=== PATIENT | female | born 1950 | race Caucasian/White ===

== ENCOUNTER 2018-12-17 12:13 | Emergency (ER) | payer MEDICARE, OTHER, SELFPAY ==
[2018-12-17 12:14] VITALS: BP 159/95; PULSE 74; RESP 18; TEMP 36.9; O2SAT 95; BMI 40.1
--- NOTE | 2018-12-17 12:27 | RAD_ITS ---
STUDY: X-RAY CHEST REASON FOR EXAM: Female, 68 years old. Substernal chest pain TECHNIQUE: Single AP portable view of the chest. COMPARISON: None. FINDINGS: EKG leads overlie the chest The lungs are clear and expanded. There is no demonstrated pleural abnormality. Normal size heart. Normal mediastinum and maira. Normal visualized pulmonary arteries. Normal visualized aortic arch and descending thoracic aorta. Normal visualized thoracic spine. Normal visualized ribs, clavicles, and shoulders. There is no demonstrated abnormality of the visualized soft tissue structures of the upper abdomen. RAD/Chest 1 View (Portable) IMPRESSION: Normal x-ray examination of the chest. Electronically Signed: Dagoberto Wetzel MD at 12:49 EDT , Service support ,
--- NOTE | 2018-12-17 12:27 | EKG12_ITS ---
Test Reason : CP Blood Pressure : / mmHG Vent. Rate : 063 BPM Atrial Rate : 063 BPM P-R Int : 148 ms QRS Dur : 078 ms QT Int : 416 ms P-R-T Axes : 006 010 022 degrees QTc Int : 425 ms Normal sinus rhythm Normal ECG Confirmed by SHELIA JAMES ([id number]), editorial director TUNG MILLER ([id number]) on 12/19/2018 9:53:13 AM Referred By: Confirmed By:SHELIA JAMES
[2018-12-17] MEDS: Aspirin 81 MG TAB.CHEW 324 MG PO (12:32)
[2018-12-17] MEDS: Nitroglycerin SL (ED/IMG/CATH) 0.4 MG TABLET SUBLINGUAL (12:33)
[2018-12-17 12:37] VITALS: BP 123/82; PULSE 80; RESP 18; O2SAT 95
--- NOTE | 2018-12-17 12:38 | ED.RN ---
Chest pain resolved - other two nitro tablets wasted
[2018-12-17 12:44] LABS: Absolute Lymphocyte Count 2.66 X10^3/uL (0.83-4.51); Absolute Neutrophil Count 5.2 X10^3/uL (2.0-7.7); Basophil# 0.02 X10^3/uL; Basophil% 0.2 % (0-1); Eosinophil# 0.15 X10^3/uL; Eosinophils% 1.8 % (0-5); Hematocrit 41.5 % (37-47); Hemoglobin 13.8 g/dL (12.0-15.0); Lymphocyte # 2.66 X10^3/ul (4.0); Mean Corp Hgb Conc 33.3 g/dL (32-36); Mean Corpuscular Hgb 31.2 pg (27.0-32.0); Mean Corpuscular Volume 93.7 fL (81-99); Mean Platelet Vol. 10.1 fl (6.2-12.0); Monocyte# 0.53 X10^3/uL; Monocyte% 6.2 % (0-10); NRBC Flagged by Analyzer 0 % (0-5); Neutrophil # 5.17 X10^3/uL (2.7-7.7); Neutrophil % 60.3 % (47-70); Platelet Count 244 K/mm3 (150-450); RBC Distribution Width CV 13.3 % (11.6-14.6); RBC Distribution Width SD 45.9 fl (35.1-43.9); Red Blood Count 4.43 M/mm3 (4.2-5.4); White Blood Count 8.6 K/mm3 (4.4-11.0)
--- NOTE | 2018-12-17 12:49 | ED.DCSUM_ITS ---
History of Present Illness Chief Complaint: Chest Pain Informant: Patient Onset: Today, Hours Context: Sudden Onset Timing: Continuous Quality: Sharp stabbing Location: Mid central chest Current Severity: Mild Maximum Severity: Moderate Worsened by: Nothing Relieved by: Nothing Associated Symptoms: Radiation to back Narrative: Patient is an elderly woman with history of hypertension for 15 years, smoking since age 25 who presents with sharp stabbing mid central chest pain that radiates to the back that started while driving to [place] to see family. Onset 15 minutes prior to arrival. She states she has had pain in the past but much shorter in duration. She had a stress test several years ago which was negative. She is never had a cardiac catheterization. She denies elevated cholesterol and history of diabetes. She denies leg pain, swelling or discoloration. She denies history of DVT, PE or risk factors. There are no exacerbating, precipitating or alleviating factors with regards to her chest pain. She has been no symptoms of infection. She does have history of indigestion. She states this is different than her indigestion. She is never been diagnosed with GERD or reflux. She denies history of hiatal hernia. Prior similar symptoms: Yes Recent Illness/Hospitalization: No - Past Medical History (1) History of hypertension Status: Acute Past Medical History - Allergies and Home Meds Allergies/Adverse Reactions: Allergies No Known Allergies Allergy (Verified 12/17/18 12:16) Primary Care Physician: rDu Pierre DO [Primary Care Provider] - Prior records reviewed: Yes Surgical History: noncontributory Lives: Spouse/ Significant Other Smoking Status: Current every day smoker Alcohol: None Drugs: None Review of Systems General: Denies: Chills, Fever, Sweats Eyes: Denies: Visual changes - bilaterally, Blurred Vision - bilaterally, Diplopia ENT: Denies: Rhinorrhea, Sore throat Cardiovascular: Reports: Chest pain. Denies: Palpitations, Heart racing Respiratory: Denies: Dyspnea, Cough, Dyspnea on exertion, Orthopnea, Paroxysmal nocturnal dyspnea Gastrointestinal: Denies: Abdominal pain, Nausea, Vomiting, Diarrhea, Melena, Hematochezia Genitourinary: Denies: Dysuria, Hematuria, Frequency Musculoskeletal: Denies: Back pain, Extremity Pain Skin: Denies: Rash, Wounds Neurological: Denies: Headache, Weakness, Numbness Endocrine: Denies: Polyuria, Polydipsia Hematologic: Denies: Easy bruising, Easy bleeding Allergy: Denies: Uticaria Physical Exam Vital Signs/Narrative: Vital Signs Temp Pulse Resp BP Pulse Ox 12/17/18 12:37 80 18 123/82 H 95 12/17/18 12:14 98.5 F 74 18 159/95 H 95 Inital Vital Signs reviewed: Yes General: Well nourished, Well developed, No Acute Distress Head: Normocephalic, Atraumatic Eyes: Perrl, EOMI ENT: Moist mucous membranes, No rhinorrhea Neck: Supple, Nontender, No lymphadenopathy, No JVD Cardiovascular: Regular rate, Regular rhythm, No murmurs, Normal S1, Normal S2 Respiratory: No distress, CTA bilaterally, Chest nontender. Negative for: Decreased Air Movement Abdomen: Soft, Nontender, Nondistended, Normal bowel sounds Back: Nontender, Normal Inspection Extremities: Nontender, No edema, - - There is no asymmetry, swelling, discoloration, leg vein distention, palpable cords or tenderness along the distribution of the deep venous system. Skin: Normal color, No rash Neurological: Alert, Oriented x3, Cranial nerves II-XII grossly intact, Normal Strength, Normal Sensation, Normal DTR Psychological: Normal affect, Normal Mood Diagnostic/Tx/Re-eval Impressions Chest X-Ray 12/17/18 12:27 IMPRESSION: Normal x-ray examination of the chest. Electronically Signed: Dagoberto Wetzel MD at 12:49 EDT , Service support , 12/17/18 12:27 Chest 1 View (Portable) [RAD] Stat Laboratory Results 12/17/18 12/17/18 12/17/18 12:16 12:16 15:10 WBC 8.6 RBC 4.43 Hgb 13.8 Hct 41.5 MCV 93.7 MCH 31.2 MCHC 33.3 RDW Std Deviation 45.9 H RDW Coeff of Javi 13.3 Plt Count 244 MPV 10.1 Immature Gran % (Auto) 0.500 Neut % (Auto) 60.3 Lymph % (Auto) 31.0 [place] % (Auto) 6.2 Eos % (Auto) 1.8 Baso % (Auto) 0.2 Absolute Neuts (auto) 5.2 Absolute Lymphs (auto) 2.66 Absolute Nucleated RBC 0.00 Nucleated RBC % 0 Sodium 137 Potassium 4.0 Chloride 105 Carbon Dioxide 27.0 Anion Gap 5 BUN 16 Creatinine 0.97 Estim Creat Clear Calc 47.93 Est GFR (MDRD) Af Amer 74 Est GFR (MDRD) Non-Af 61 BUN/Creatinine Ratio 16.5 Glucose 99 Calcium 9.0 Troponin I < 0.015 < 0.015 - EKG Initial EKG Interpretation: Sinus Rhythm - Circular rate is 63. AL interval is 140 ms. QRS duration is 78 ms. QT is 416 ms. [place] is normal. The EKG is normal. This was obtained with pain. - Medical Decision Making EKG was obtained as well as chest x-ray and blood work to assess patient's chest pain. This may represent cardiac etiology, GI etiology respiratory. First and 3-hour troponin are negative. Delta is 0. Heart score is 3. Patient is low risk and therefore candidate for outpatient treatment. ED Disposition - Plan for ED Patient: Disposition: Home or Assisted Living Diagnosis: Central chest pain Instructions: CHEST PAIN, NonCardiac, GERD (Adult) Prescriptions: Famotidine [Pepcid] 40 mg PO DAILY #30 tab Transmission Status: [id number] Referrals: Dru Pierre DO [Primary Care Provider] - 5-7 Days Additional Instructions: Your prescription was electronically transmitted to [facility] on [facility]
[2018-12-17 12:52] LABS: Anion Gap 5 (5-15); BUN 16 mg/dL (7-18); BUN/Creat Ratio 16.5 RATIO (10-20); Chloride 105 mmol/L (98-107); Creatinine, Serum 0.97 mg/dL (0.55-1.02); EST Glomerular Filtration Rate 61 mL/min (>60); Est Glom Filt Rate - Afr Amer 74 mL/min (>60); Estimated Creatinine Clearance 47.93 ml/min; Glucose 99 mg/dL (74-106); Sodium Level 137 mmol/L (136-145)
[2018-12-17 13:06] VITALS: BP 132/79; PULSE 59; RESP 18; O2SAT 94
[2018-12-17 14:00] VITALS: BP 122/57; PULSE 55; RESP 16; O2SAT 95
[2018-12-17 15:00] VITALS: BP 114/77; PULSE 49; RESP 18; O2SAT 96
[2018-12-17 16:11] VITALS: BP 123/81; PULSE 63; RESP 16; O2SAT 97
== END 2018-12-17 16:12 | disposition home or self-care (01) ==
PROVIDERS: Emergency Provider Emergency Medicine; Family Provider Family Medicine; PCP Family Medicine
DX: R07.89 Other chest pain (principal); I10 Essential (primary) hypertension; Z79.899 Other long term (current) drug therapy; F17.200 Nicotine dependence, unspecified, uncomplicated
CPT/HCPCS: 71045; 80048; 84484; 85025; 93005; 99285; A4216

== ENCOUNTER → 2019-01-14 | Outpatient (CLI) | payer MEDICARE, OTHER, SELFPAY ==
[2018-12-17 12:14] VITALS: BMI 40.1
--- NOTE | 2019-01-14 11:01 | VDLE_ITS ---
Reason For Study: Pain RIGHT LEFT CFV is compressible, spontaneous, phasic, GSV is normal. competent and demonstrates normal CFV is compressible, spontaneous, phasic, augmentation. competent, and demonstrates normal Procedure augmentation. Exam performed in department. FV is compressible, spontaneous, phasic, A preliminary report was called and/or faxed competent and demonstrates normal to Ignacio. augmentation. POP V is compressible, spontaneous, phasic, competent and demonstrates normal augmentation. T/P Trunk is compressible. PTV is compressible. LT PerV is compressible. Interpretation Summary There is no evidence of left lower extremity deep vein thrombosis. Left great saphenous vein appears patent and compressible segmentally. Patent and compressible right common femoral vein Ordering Physician: Dru Pierre Referring Physician: Dru Pierre Performed By: Dorota Mcguire RVT
== END | disposition home or self-care (01) ==
LOC: CVS 10:59
PROVIDERS: Family Provider Family Medicine; PCP Family Medicine; Referring Provider Family Medicine; Visit Provider Family Medicine
DX: M79.605 Pain in left leg (principal)
CPT/HCPCS: 93971

== ENCOUNTER → 2019-03-17 10:23 | Outpatient (CLI) | payer MEDICARE, OTHER, SELFPAY ==
[2019-03-17 11:42] LABS: Anion Gap 7 (5-15); BUN 21 mg/dL (7-18); BUN/Creat Ratio 25.2 RATIO (10-20); Calcium,Total 8.6 mg/dL (8.5-10.1); Chloride 109 mmol/L (98-107); Creatinine, Serum 0.83 mg/dL (0.55-1.02); EST Glomerular Filtration Rate 72 mL/min (>60); Est Glom Filt Rate - Afr Amer 87 mL/min (>60); Glucose 96 mg/dL (74-106); Potassium 3.8 mmol/L (3.5-5.1); Sodium Level 141 mmol/L (136-145)
== END ==
PROVIDERS: Family Provider Family Medicine; PCP Family Medicine; Referring Provider Orthopaedic Surgery; Visit Provider Orthopaedic Surgery
DX: M25.511 Pain in right shoulder (principal); M19.011 Primary osteoarthritis, right shoulder; M75.21 Bicipital tendinitis, right shoulder; M75.41 Impingement syndrome of right shoulder; S43.421A Sprain of right rotator cuff capsule, initial encounter; I10 Essential (primary) hypertension
CPT/HCPCS: 36415; 80048

== ENCOUNTER 2019-07-30 11:30 | Outpatient (RCR) | payer MEDICARE, OTHER, SELFPAY ==
--- NOTE | 2019-06-04 14:58 | HP.PTEVAL_ITS ---
Patient's Visit Information LORIE MOORE is a 69 year old F referred to Physical Therapy by KASSANDRA THURSTON with a diagnosis of Right Shoulder Surgery 05/03/2019. Date of Evaluation: 06/04/19 Physical Therapist: Alexandra London DPT - Visit Plan Frequency: 2x /Week Duration: 6 Weeks Plan: Right shoulder surgery 05/03/19. PROM Until 06/21 then AROM until 07/05- new script will be required to add strength as per MD - Subjective Findings: Fell 3x last winter but unsure if thats how she injured her shoulder- Dr. Pierre worked a lot out of her left side and neck but the right just never got better. Had injections that helped but it never got 100% better. Had Right intra and extra articular debridement, biceps tenodesis, subscap repair, supraspinatus repair and SAD 05/03/[address] Hendricks at [facility]. Lives alone and is fully I prior to surgery. She is ready to get back to normal activities children help when they can. Right hand dominate. Worst in last 48 hours: 5 describes it as ache- Pain is located in the shoulder and radiates to the elbow. No neck pain, KEMP, blurred vision or dizziness. 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 Plays the computer a lot so she is keeping the hands moving. N/T when she does not move it a lot- Pendulums- wears the sling at home and takes it off when she sleeps and showers. Best: 0/10- Eases: rest- no ice or pain medication. Sleep: not disturbed-up/down due using the restroom- in the chair. PMHx: HTN Meds: water pill - Objective Posture Fh, RS, increased kyhphosis- guarding of the right UE with arm in sling. Palpation: tender along deltoid. ROM: cervical: WNL, Finger dexterity: normal, elbow/wrist: WNL mild discomfort at end range elbow extn. Shoulder Prom: flexion: 110 degrees, Abd: 90 degrees, er: neutral, IR: to belly. Strength: restaurant cashier: WNL, Elbow: 4/5, Shoulder: not tested due to protocol. - Goals Goal 1:: Patient will be I with HEP and progression Goal Time Frame: 4-6 Weeks Goal 2:: Patient will demo full PROM of the right shoulder (as per protocol) Goal Time Frame: 4-6 Weeks Goal 3:: Patient will demo full AROM of the right shoulder (as per protocol) Goal Time Frame: 4-6 Weeks - Rehabilitation Potential Physical Therapy Diagnosis: Patient presents with hypomobility- she has decreased ROM, strength and muscular endurance s/p right shoulder surgery leading to increased difficulty with ADL's Rehabilitation Potential: Good - Anticipated Interventions Patient/Client Instruction: Educate patient on: Benefits of Fitness Program Therapeutic Exercise to Include: Strength training, Body mechanics, Postural training, Passive ROM, Active ROM, Scapular Strength/Stabilization Comment: as per protocol For the Purpose of:: To improve muscle performance and motor function TENS: Yes Cryotherapy (ice pack, ice massage): Yes Thermo therapy (hot pack): Yes Ultrasound (thermal/non thermal): No For the Purpose of:: To decrease pain Thank you for the opportunity to evaluate your patient. For Medicare and Medicare HMO plans, please review the plan of care and approve it. It will need to be FAXED BACK to us at [phone] for Medicare purposes. For Medicare only, by signing this I certify the plan of care. Please let me know if there are questions or concerns regarding this plan of care. Physician Signature: Date:
--- NOTE | 2019-07-14 11:16 | HP.PTREVAL ---
KASSANDRA THURSTON, It has been my pleasure to treat LORIE MOORE over the last 16 visits for Right Shoulder Surgery 05/03/2019. Please see the progress note below for an update on the physical therapy plan of care! Subjective: Patient reports that she is getting better- she feels 70% better- She is sleeping better and has less pain. Challenged with putting her hand behind her back and doing her hair- doesn't have the ROM. Is still sleeping in the chair. Worst: 10/04. Objective/Function: Posture: FH, RS- no guarding of the right UE. Gait: good arm swing and trunk rotation. Palpation: tender along anterior shoulder. ROM: Active: flexion: 110 degrees, ABd: 100 degrees, IR: pocket, ER: 60 degrees. AAROM: flexion: 160 degrees Abd: 160 degrees. Strength: Isometric: 4+/5 Plan Plan: Right shoulder surgery 05/03/19. 06/23/2019 New Script Reviewed by ELR - New script has ROM both passive and active as well as strength check marked- when starting strength start with isometrics in neutral Goals Goal 1:: Patient will be I with HEP and progression Goal Time Frame: 4-6 Weeks Goal Progress: Progressing Goal 2:: Patient will demo full PROM of the right shoulder (as per protocol) Goal Time Frame: 4-6 Weeks Goal Progress: Progressing Goal 3:: Patient will demo full AROM of the right shoulder (as per protocol) Goal Time Frame: 4-6 Weeks Goal Progress: Progressing Anticipated Interventions Patient/Client Instruction: Educate patient on: Benefits of Fitness Program Therapeutic Exercise to Include: Strength training, Body mechanics, Postural training, Passive ROM, Active ROM, Scapular Strength/Stabilization Comment: as per protocol For the Purpose of:: To improve muscle performance and motor function TENS: Yes Cryotherapy (ice pack, ice massage): Yes Thermo therapy (hot pack): Yes Ultrasound (thermal/non thermal): No For the Purpose of:: To decrease pain Please do not hesitate to contact me at [phone] by phone or if you have questions or concerns regarding this new plan of care! Sincerely, Alexandra London DPT
--- NOTE | 2019-07-30 11:50 | HP.PTDCSUM ---
HP - PT D/C Summary It has been my pleasure to treat LORIE MOORE under orders from KASSANDRA THURSTON, for the diagnosis of Right Shoulder Surgery 05/03/2019 for a total of 21 visit(s). Discharge Date: Please see the following information for a summary of their discharge status. - Subjective Subjective: Patient reports that she is getting better- she reports that she is having a problem getting up high to clean her shower door- but she is able do most things around her house. She feels that she has changed her routine a little bit in therapy which is making it less sore. The pain is alot less- she feels that she is 80-90% back to normal - Pain R Shldr Pain Intensity (Out of 10): 2 - Overall Improvement % Improvement: 90 - Objective Objective/Function: Posture: FH, RS- can correct but does not maintain. Gait: no deviation- good arm swing and trunk rotation- no guarding of the right UE. Palpatoin: not tender. ROM: Active Shoulder: flexion: 150 degrees, Abd: 160 degrees, IR: to pocket, ER: 40 degrees, Elbow/Wrist/hand: WNL. Strength: tested isometrically at 90/90 position: Shoulder: extn: 4+/5, And: 4/5, Flexion: 4/5, IR: 4/5, ER: 4/5 Elbow: 4+/5 - Goals Goal 1:: Patient will be I with HEP and progression Goal Progress: Goal Met Goal 2:: Patient will demo full PROM of the right shoulder (as per protocol) Goal Progress: Progressing Goal 3:: Patient will demo full AROM of the right shoulder (as per protocol) Goal Progress: Progressing - Plan Plan: Discharge to I HEP- she feel confident with exercises. - D/C Information If there are questions or concerns regarding this patient's physical therapy, please feel free to call me at [phone]. Thank you for the referral of this patient. Sincerely, Alexandra London DPT
== END 2019-07-30 19:00 | disposition home or self-care (01) ==
LOC: PT 11:30
PROVIDERS: Family Provider Family Medicine; PCP Family Medicine
DX: M25.511 Pain in right shoulder (principal); M19.011 Primary osteoarthritis, right shoulder; M75.21 Bicipital tendinitis, right shoulder; M75.41 Impingement syndrome of right shoulder; S43.421D Sprain of right rotator cuff capsule, subsequent encounter; Z48.02 Encounter for removal of sutures; Z47.89 Encounter for other orthopedic aftercare
CPT/HCPCS: 97110; 97140; 97161; 97164

== ENCOUNTER 2019-08-25 17:52 | Emergency (ER) | payer MEDICARE, OTHER, SELFPAY ==
[2019-08-25 17:54] VITALS: BP 137/85; PULSE 112; RESP 18; TEMP 36.3; O2SAT 95; BMI 39.7
--- NOTE | 2019-08-25 18:37 | ED.DCSUM_ITS ---
History of Present Illness Chief Complaint: GI Bleed Informant: Patient - Abdominal Pain/Flank Pain Onset: Weeks - 2 Context: Gradual Onset Timing: Continuous Quality: Cramping Location: Diffuse - lower abd Current Severity: Mild Maximum Severity: Moderate Worsened by: Nothing Relieved by: - - after BM - Nausea/Vomiting/Emesis GI Symptom: Negative for: Nausea, Vomiting - Diarrhea/Melena/Hematochezia GI Symptom: Diarrhea, Hematochezia. Negative for: Melena Severity: Moderate - 7-8 bouts per day Associated Symptoms: Negative for: Dysuria, Frequency, Hematuria, Urgency Narrative: Patient states she feels like she is having an ulcerative colitis flare. Started about 2 weeks ago, her doctor put her on a Medrol Dosepak, after the first 2 days of doses, symptoms were improved but gradually started getting worse again. She just recently finished that. She was on dicyclomine as needed for cramping as well. She called her doctor today and she was referred here to the ER. She is having rectal bleeding with bowel movements/diarrhea, cramping off and on, tenesmus. She denies any symptoms of anemia, nausea, vomiting, fevers, back pain, urinary symptoms. 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 The last time she had a colonoscopy, her colon showed no signs of colitis but when she was having colitis on her scopes, it was mostly left-sided with a little bit of right-sided extension. She states she wants a new plant operations engineer. We do not have any others in the area. She states that she has not had a flareup in 20 years or so, and does not know why she is having a flareup now. She is on no maintenance medications. She used to be on some, but states that she discontinued them herself, and started taking probiotics which kept her stable and asymptomatic. However she discontinued those long ago. She just got some and started taking them within the last couple days. Prior similar symptoms: Yes - ulcerative colitis flares - Past Medical History (1) HTN (hypertension) Status: Chronic (2) Ulcerative colitis Status: Chronic Past Medical History - Allergies and Home Meds Allergies/Adverse Reactions: Allergies No Known Allergies Allergy (Verified 08/25/19 17:53) Primary Care Physician: Dru Pierre DO [Primary Care Provider] - Surgical History: noncontributory Lives: Alone Smoking Status: Never smoker Review of Systems General: Denies: Chills, Fever, Sweats Eyes: Denies: Visual changes - bilaterally, Diplopia ENT: Denies: Rhinorrhea, Sore throat Cardiovascular: Denies: Chest pain, Palpitations Respiratory: Denies: Dyspnea, Cough, Dyspnea on exertion Gastrointestinal: Reports: Abdominal pain, Diarrhea, Hematochezia. Denies: Nausea, Vomiting, Melena Genitourinary: Denies: Dysuria, Hematuria, Frequency Musculoskeletal: Denies: Back pain, Swelling, Extremity Pain Skin: Denies: Rash, Wounds Neurological: Denies: Headache, Weakness, Numbness Physical Exam Vital Signs/Narrative: Vital Signs Temp Pulse Resp BP Pulse Ox 08/25/19 17:54 97.3 F L 112 H 18 137/85 H 95 Inital Vital Signs reviewed: Yes General: Well nourished, Well developed, Obese, No Acute Distress Head: Normocephalic, Atraumatic Eyes: Perrl, EOMI ENT: Moist mucous membranes, No rhinorrhea Neck: Supple, Nontender Cardiovascular: Regular rate, Regular rhythm, No murmurs, Tachycardia - Mild Respiratory: No distress, CTA bilaterally, Chest nontender Abdomen: Soft, Nontender, Nondistended, Hyperactive bowel sounds Back: Nontender, Normal Inspection Extremities: Nontender, No edema Skin: Normal color, No rash, No Trauma Neurological: Alert, Oriented x3, Cranial nerves II-XII grossly intact, Normal Strength, Normal Sensation, Normal Gait Psychological: Normal affect, Normal Mood Diagnostic/Tx/Re-eval Laboratory Tests 08/25/19 08/25/19 Range/Units 18:47 18:47 WBC 7.1 (4.4-11.0) K/mm3 RBC 4.14 L (4.2-5.4) M/mm3 Hgb 12.8 (12.0-15.0) g/dL Hct 39.0 (37-47) % MCV 94.2 (81-99) fL MCH 30.9 (27.0-32.0) pg MCHC 32.8 (32-36) g/dL RDW Std Deviation 46.0 H (35.1-43.9) fl RDW Coeff of Javi 13.4 (11.6-14.6) % Plt Count 231 (150-450) K/mm3 MPV 9.9 (6.2-12.0) fl Immature Gran % (Auto) 0.300 (0.0-0.9) % Neut % (Auto) 59.2 (47-70) % Lymph % (Auto) 28.4 (19-41) % [place] % (Auto) 10.0 (0-10) % Eos % (Auto) 2.0 (0-5) % Baso % (Auto) 0.1 (0-1) % Absolute Neuts (auto) 4.2 (2.0-7.7) X10^3/uL Absolute Lymphs (auto) 2.02 (0.83-4.51) X10^3/uL Nucleated RBC % 0 (0-5) % Sodium 143 (136-145) mmol/L Potassium 3.5 (3.5-5.1) mmol/L Chloride 109 H (98-107) mmol/L Carbon Dioxide 28.0 (21.0-32.0) mmol/L Anion Gap 6 (5-15) BUN 15 (7-18) mg/dL Creatinine 1.00 (0.55-1.02) mg/dL Estim Creat Clear Calc 45.85 ml/min Est GFR (MDRD) Af Amer 71 (>60) mL/min Est GFR (MDRD) Non-Af 59 L (>60) mL/min BUN/Creatinine Ratio 15.0 (10-20) RATIO Glucose 108 H (74-106) mg/dL Calcium 8.6 (8.5-10.1) mg/dL - Medical Decision Making Labs are unremarkable. No sign of electrolyte disorder. Her abdomen is very benign, and I do not think she needs emergent radiography for any reason at this time. Her symptoms are consistent with an ulcerative colitis exacerbation. I do not have another plant operations engineer I can refer her to. I recommend she follow-up with her PCP for a referral and further management if she would like that and she is amenable to that. In the meantime I think it would be reasonable to put her on higher dose steroids, followed by a taper down and off, simultaneous with mesalamine enemas and oral mesalamine. ED Disposition - Plan for ED Patient: Disposition: Home or Assisted Living Diagnosis: Acute ulcerative colitis with rectal bleeding Instructions: ED Colitis Ulcerative Prescriptions: Mesalamine 3 tab PO DAILY #63 tablet. Transmission Status: Pending to [facility] Mesalamine W/Cleansing Wipes [Mesalamine 4 gm/60 ml Kit] 4 gm SD QHS 21 Days #21 enema.kit Transmission Status: Pending to [facility] Prednisone 10 mg PO UD #35 tab Transmission Status: Pending to [facility] Referrals: Dru Pierre DO [Primary Care Provider] - 5-7 Days
[2019-08-25] MEDS: MethylPREDNISolone 125 MG/2 ML Vial IV (18:54)
[2019-08-25 19:04] LABS: Absolute Lymphocyte Count 2.02 X10^3/uL (0.83-4.51); Absolute Neutrophil Count 4.2 X10^3/uL (2.0-7.7); Basophil# 0.01 X10^3/uL; Basophil% 0.1 % (0-1); Eosinophil# 0.14 X10^3/uL; Hemoglobin 12.8 g/dL (12.0-15.0); Lymphocyte # 2.02 X10^3/ul (4.0); Lymphocyte % 28.4 % (19-41); Mean Corp Hgb Conc 32.8 g/dL (32-36); Mean Corpuscular Hgb 30.9 pg (27.0-32.0); Mean Corpuscular Volume 94.2 fL (81-99); Mean Platelet Vol. 9.9 fl (6.2-12.0); Monocyte# 0.71 X10^3/uL; NRBC Flagged by Analyzer 0 % (0-5); Neutrophil # 4.22 X10^3/uL (2.7-7.7); Neutrophil % 59.2 % (47-70); Platelet Count 231 K/mm3 (150-450); RBC Distribution Width CV 13.4 % (11.6-14.6); Red Blood Count 4.14 M/mm3 (4.2-5.4); White Blood Count 7.1 K/mm3 (4.4-11.0)
[2019-08-25 19:15] LABS: Anion Gap 6 (5-15); BUN 15 mg/dL (7-18); Calcium,Total 8.6 mg/dL (8.5-10.1); Chloride 109 mmol/L (98-107); EST Glomerular Filtration Rate 59 mL/min (>60); Est Glom Filt Rate - Afr Amer 71 mL/min (>60); Estimated Creatinine Clearance 45.85 ml/min; Glucose 108 mg/dL (74-106); Potassium 3.5 mmol/L (3.5-5.1); Sodium Level 143 mmol/L (136-145)
== END 2019-08-25 19:54 | disposition home or self-care (01) ==
PROVIDERS: Emergency Provider Emergency Medicine; PCP Family Medicine
DX: K51.911 Ulcerative colitis, unspecified with rectal bleeding (principal); E66.9 Obesity, unspecified; I10 Essential (primary) hypertension; Z79.899 Other long term (current) drug therapy
CPT/HCPCS: 80048; 85025; 96361; 96374; 99283; J7030

== ENCOUNTER → 2020-03-25 09:55 | Outpatient (CLI) | payer MEDICARE, OTHER, SELFPAY ==
--- NOTE | 2020-03-25 09:59 | VDLE_ITS ---
Reason For Study: lymphedema RIGHT LEFT GSV is normal. GSV is normal. CFV is compressible, spontaneous, phasic, CFV is compressible, spontaneous, phasic, competent and demonstrates normal competent, and demonstrates normal augmentation. augmentation. FV is compressible, spontaneous, phasic, FV is compressible, spontaneous, phasic, competent and demonstrates normal competent and demonstrates normal augmentation. augmentation. POP V is compressible, spontaneous, phasic, POP V is compressible, spontaneous, phasic, competent and demonstrates normal competent and demonstrates normal augmentation. augmentation. T/P Trunk is compressible. T/P Trunk is compressible. PTV is compressible. PTV is compressible. RT PerV is compressible. LT PerV is compressible. Procedure Hypoechoic area behind the knee measuring 1.0 This is a venous duplex using B-mode, color x 2.23 x 4.12 cm. Area is nonvascular. flow and spectral Doppler. Exam performed in department. The exam was diagnostic. A preliminary report was called and/or faxed to Dr. Zarate. Interpretation Summary Bilateral no DVT or SVT seen. Appears to have a left bakers cyst. Ordering Physician: Anival Zarate Performed By: Joe Manriquez, RVT
== END ==
PROVIDERS: PCP Nurse Practitioner Family; Referring Provider Surgery Vascular Surgery; Visit Provider Surgery Vascular Surgery
DX: I89.0 Lymphedema, not elsewhere classified (principal); R60.0 Localized edema
CPT/HCPCS: 93970

== ENCOUNTER → 2020-05-24 10:34 | Outpatient (CLI) | payer MEDICARE, OTHER, SELFPAY ==
--- NOTE | 2020-05-26 08:29 | PFT ---
INTRODUCTION: The patient is a 70-year-old female that presents for pulmonary function studies secondary to a diagnosis of nicotine dependency. Respiratory therapy reports good patient effort. Bronchodilators were used during testing. INTERPRETATION: Forced expiration spirometry demonstrates the presence of a mild large airways obstructive ventilatory defect. There was no significant response to aerosolized bronchodilators. Spirograms are of good quality and plateau normally. Body plethysmography was performed and reveals lung volumes to be within normal limits. Diffusing capacity by single breath CO is also within normal limits. IMPRESSION: Irreversible mild large airways obstructive ventilatory defect with preserved lung volumes and diffusing capacity.
== END ==
PROVIDERS: PCP Nurse Practitioner Family; Referring Provider Internal Medicine Critical Care Medicine; Visit Provider Internal Medicine Critical Care Medicine
DX: R06.02 Shortness of breath (principal); E66.9 Obesity, unspecified; F17.210 Nicotine dependence, cigarettes, uncomplicated
CPT/HCPCS: 94060; 94726; 94729

== ENCOUNTER → 2020-05-27 12:30 | Outpatient (CLI) | payer MEDICARE, OTHER, SELFPAY ==
[2020-05-27 12:30] VITALS: PULSE 113; PULSE 114; PULSE 115; PULSE 118; PULSE 119; PULSE 124; PULSE 84; PULSE 92; O2SAT 93; O2SAT 94; O2SAT 95; O2SAT 97
--- NOTE | 2020-05-29 10:22 | PCM.PSN.6M ---
PSN 6 Minute Walk Test - 6 Minute Walk Test 6 Minute Walk Test: 6 Minute Walk Test PSN:6-Minute Walk Test Start: 05/27/20 13:00 Freq: Status: Active Protocol: [id number].6MINW Document 05/27/20 12:30 (Rec: 05/27/20 13:04 [id number]) 6 Minute Walk Test Date Performed 05/27/20 Time Performed 12:30 Height 5 ft 4 in Weight: 235 lb Weight in Pounds 235.[address]: Paulie Puri FIO2 (% Oxygen) 21 Assistive device used: None Pre-test Oxygen Delivery Method Room Air Pulse Ox (%) 97 Pulse Rate (60-100 beats/min) 84 Dyspnea Rossy Scale (0-10) 0 Exertion Rossy Scale (6-20) 6 1st minute Oxygen Delivery Method Room Air Pulse Ox (%) 93 Pulse Rate (60-100 beats/min) 115 H 2nd minute Oxygen Delivery Method Room Air Pulse Ox (%) 94 Pulse Rate (60-100 beats/min) 124 H 3rd minute Oxygen Delivery Method Room Air Pulse Ox (%) 94 Pulse Rate (60-100 beats/min) 114 H 4th minute Oxygen Delivery Method Room Air Pulse Ox (%) 95 Pulse Rate (60-100 beats/min) 119 H 5th minute Oxygen Delivery Method Room Air Pulse Ox (%) 94 Pulse Rate (60-100 beats/min) 113 H 6th minute Oxygen Delivery Method Room Air Pulse Ox (%) 94 Pulse Rate (60-100 beats/min) 118 H Post-test Oxygen Delivery Method Room Air Pulse Ox (%) 95 Pulse Rate (60-100 beats/min) 92 Dyspnea Rossy Scale (0-10) 0 Exertion Rossy Scale (6-20) 11 Full Laps Walked 22 Partial Lap, Number of Tiles Walked 0 Total Distance Walked (ft) 1298 - Interpretation Interpretation: The patient ambulated 1298 feet over the course of 6 minutes beginning on room air without assistive devices or breaks. Pretesting oxygen saturation was noted to be 97% on room air. With ambulation, the clayton oxygen saturation was 93%. There was no significant exertional oxygen desaturation. - Recommendations Recommendations: There is no indication for the use of supplemental oxygen at this time.
== END ==
PROVIDERS: PCP Nurse Practitioner Family; Referring Provider Internal Medicine Critical Care Medicine; Visit Provider Internal Medicine Critical Care Medicine
DX: R06.02 Shortness of breath (principal)
CPT/HCPCS: 94618

== ENCOUNTER → 2020-06-10 15:15 | Outpatient (CLI) | payer MEDICARE, OTHER, SELFPAY ==
--- NOTE | 2020-06-10 15:17 | BI_ITS ---
MAMMOGRAPHY - BILATERAL SCREENING REASON FOR EXAM: Female, 70 years old. Routine annual screening examination. PERTINENT HISTORY: Aunt with breast cancer. TECHNIQUE: Digital bilateral breast reena (3D mammographic acquisition) in the CC and MLO projections. 2-D mediolateral oblique (MLO) and craniocaudad (CC) views of both breasts were obtained. CAD: Full Field Digital Mammography with Computer Added Detection was performed. COMPARISON: Comparison is made with prior osseous examination dated 11/21/2016. FINDINGS: Breast Composition: The breasts are almost entirely fatty. There are no dominant masses or suspicious calcifications. Stable 3 mm nodule in the inferior medial portion of the left breast. Stable 3 mm well-defined nodule in the upper anterior lateral portion of the right breast. Stable benign-appearing small axillary lymph nodes. No other significant abnormalities are identified. There has been no significant change since the prior study. BI/SCRN MAMM (CAD)W/REENA BILAT IMPRESSION: Stable bilateral screening mammogram. Yearly follow-up mammogram recommended. (A) ASSESSMENT CATEGORY: BIRADS Category 2: Benign. A letter regarding these results will be sent to the patient by the facility within 30 days. Approximately 10% of breast cancers are not detected by mammography. A normal mammogram should not delay biopsy of a clinically suspicious abnormality. [id number] Electronically Signed: Sarthak Mccormick, at 8:16 EST , Service support ,
--- NOTE | 2020-06-10 15:24 | BD_ITS ---
STUDY: DUAL ENERGY X-RAY ABSORPTIOMETRY / DXA REASON FOR EXAM: Female, 70 years old. 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 COMPARISON: None. FINDINGS: Lumbar Spine (L1-L4): g/cm2 (1.042) / T-score (-1.0) / Z-score (0.6) Findings are suggestive of normal bone density with a low fracture risk. Left Femur Total: g/cm2 (1.005) / T-score (0.0) / Z-score (1.4) Left Femoral Neck: g/cm2 (0.849) / T-score (-1.4) / Z-score (0.3) Right Femur Total: g/cm2 (0.995) / T-score (-0.1) / Z-score (1.4) Right Femoral Neck: g/cm2 (0.842) / T-score (-1.4) / Z-score (0.3) BD/Dexa Bone Density Study IMPRESSION: The patient is considered osteopenic as outlined below according to World Aneudy Organization (WHO) criteria with a moderate fracture risk. Reference Information: The T-score is the number of standard deviations above or below the standard which is normal for young adults at their peak bone mineral density. The World Health Organization (WHO) interprets the T-scores as follows: Above -1 Normal bone density Between -1 and -2.5 Osteopenia Equal to / or below -2.5 Osteoporosis As a practical clinical guideline, osteopenia may be graded as follows: Mild -1 through -1.5 Moderate -1.6 through -2.0 Severe -2.1 through -2.4 The Z-score is the number of standard deviations above or below age-matched controls. A Z-score of less than -1.5 would be considered abnormal. References: 1. NIH Osteoporosis and Related Bone Diseases www osteo.org 2. International Society for Clinical Densitometry www iscd.org 3. National Osteoporosis Foundation www nof.org Electronically Signed: Sarthak Mccormick, at 8:35 EST , Service support ,
== END ==
PROVIDERS: PCP Nurse Practitioner Family; Referring Provider Student in an Organized Health Care Education/Training Program; Visit Provider Student in an Organized Health Care Education/Training Program
DX: Z12.31 Encounter for screening mammogram for malignant neoplasm of breast (principal); Z78.0 Asymptomatic menopausal state
CPT/HCPCS: 77063; 77067; 77080

== ENCOUNTER → 2021-04-14 13:49 | Outpatient (CLI) | payer MEDICARE, OTHER, SELFPAY ==
--- NOTE | 2021-04-14 13:56 | CT_ITS ---
STUDY: LOW DOSE CT LUNG CANCER SCREENING REASON FOR EXAM: Female, 71 years old. Smoking 1/4 ppd with greater than 20 pack year history. RADIATION DOSAGE (If Supplied By Facility): CTDIvol = ( 3.18 ) mGy, DLP = ( 101.65 ) mGycm TECHNIQUE: No contrast was administered. Low dose technique was utilized (average mAS-38 and kVp 120). 1.25 mm axial source images with a slice interval of 1.25-mm were reconstructed in lung windows. 2.5 mm axial source images with a slice interval of 2.5-mm were reconstructed in lung windows. 5.0 mm axial source images with a slice interval of 5.0-mm were reconstructed in soft tissue windows. Nodule measured using lung windows on PACS and/or independent workstation with automated measurement of minimum and maximum diameter. Nodule measurement reported as average diameter rounded to the nearest whole number. Growth is defined as an increase ins size of greater than 1.5 mm. COMPARISON: None. NODULES: There is a 3.1 mm and on calcified nodule in the peripheral lateral aspect of the right middle lobe as seen on axial image #148. This also evidence of a 6 mm noncalcified nodule in the anterior medial aspect of the right middle lobe adjacent to the right heart border. Emphysema: Hyperinflation. Emphysematous changes worse in the upper lobes. Minimal linear scarring in the anterior aspect of the left lower lobe. Linear scarring at the lung bases. Endobronchial lesion: None Aorta: Atherosclerotic calcific plaques of the aortic arch. Coronary arteries: Coronary artery calcification. Other chest and abdominal findings: CT/Low Dose CT Lung Screening IMPRESSION: Lung-RADS category 2 - Continue annual screening with LDCT in 12 months. IMPORTANT NOTES FOR USE: ACR Lung-RADS Version 1.1 Assessment Categories Release Date: 2018 Category: Coded 0-4 bases on nodule(s) with highest degree of suspicion. Negative screen is defined as categories 1 and 2; a positive screen is defined as categories 3 and 4. Category 3 and 4A nodules that are unchanged on interval CT should be coded as category 2, and individuals returned to screening in 12 months. Category 4X: Category 3 or 4 nodules with additional imaging findings that increase the suspicion of lung cancer, such as spiculation, GGN that doubles in size in 1 year, enlarged lymph notes, etc. Category Modifiers: S (significant finding unrelated to lung cancer) Electronically Signed: Sarthak Mccormick MD at 15:15 EST , Service support ,
== END ==
PROVIDERS: PCP Nurse Practitioner Family; Referring Provider Nurse Practitioner Acute Care; Visit Provider Nurse Practitioner Acute Care
DX: F17.210 Nicotine dependence, cigarettes, uncomplicated (principal)
CPT/HCPCS: 71271

== ENCOUNTER 2021-08-09 15:40 | Outpatient (CLI) | payer MEDICARE, OTHER, SELFPAY ==
[2021-08-09 18:14] LABS: Anion Gap 4 (5-15); BUN 17 mg/dL (7-18); BUN/Creat Ratio 18.6 RATIO (10-20); Calcium,Total 8.7 mg/dL (8.5-10.1); Chloride 109 mmol/L (98-107); Creatinine, Serum 0.91 mg/dL (0.55-1.02); EST Glomerular Filtration Rate 65 mL/min (>60); Est Glom Filt Rate - Afr Amer 78 mL/min (>60); Glucose 97 mg/dL (74-106); Sodium Level 140 mmol/L (136-145)
== END 2021-08-09 23:59 | disposition home or self-care (01) ==
LOC: MTLAB 15:43
PROVIDERS: PCP Nurse Practitioner Family; Referring Provider Urology; Visit Provider Urology
DX: R31.9 Hematuria, unspecified (principal)
CPT/HCPCS: 36415; 80048

== ENCOUNTER 2021-08-15 15:34 | Outpatient (CLI) | payer MEDICARE, OTHER, SELFPAY ==
--- NOTE | 2021-08-15 15:54 | CT_ITS ---
EXAM: CT ABDOMEN AND PELVIS WITHOUT AND WITH CONTRAST ENHANCEMENT OF 1551 HOURS ON 08/15/2021. HISTORY: Hematuria. TECHNIQUE: A helical CT of the abdomen and pelvis were performed with contrast enhancement per protocol and were demonstrated in the axial, coronal, and sagittal projections. Radiation calibration was performed to minimize patient exposure. COMPARISON: None. LIMITATIONS: None. FINDINGS: LOWER CHEST: Normal. LIVER: Normal. GALLBLADDER/BILE DUCTS: 7 mm in diameter gallstone in the gallbladder without wall thickening. Normal bile ducts. PANCREAS: Normal. No pancreatitis or pancreatic mass lesions. SPLEEN: Normal. ADRENAL GLANDS: Normal. KIDNEYS/URETERS/BLADDER: Small kidneys without obstructive uropathy. No renal cystic or solid mass lesions. Prominent left renal pelvis--normal variant. No ureteral dilatation. Mild bladder wall thickening that could represent a cystitis. Air bubble is noted in the bladder. RETROPERITONEUM/AORTA: Normal. BOWEL/MESENTERY: Normal. No diverticulitis, colitis, intestinal obstruction. APPENDIX: Foreshortened small appendix without evidence of appendicitis. No abscesses or fluid collections in the appendix region. PERITONEUM: Normal. REPRODUCTIVE ORGANS: Normal. BONES/SOFT TISSUES: No acute abnormality. OTHER: None. CONCLUSION: 1. Small normal kidneys without evidence of obstructive uropathy. 2. No renal cystic or solid mass lesions. 3. Mild bladder wall thickening that could represent mild cystitis. There is an air bubble in the bladder. 4. No appendicitis, diverticulitis, colitis, or intestinal obstruction. 5. Single 7 mm in diameter gallstone in the gallbladder without wall thickening. Normal bile ducts. 6. No pancreatitis or pancreatic mass lesions. 7. No evidence of other abnormalities. Electronically Signed: Rodo Fierro MD at 19:37 EDT , CT/CT Abd/Pelvis W/WO Contrast
== END 2021-08-15 23:59 | disposition home or self-care (01) ==
LOC: CT 15:36
PROVIDERS: PCP Nurse Practitioner Family; Referring Provider Urology; Visit Provider Urology
DX: R31.9 Hematuria, unspecified (principal)
CPT/HCPCS: 74178

== ENCOUNTER → 2021-08-24 14:05 | Outpatient (CLI) | payer MEDICARE, OTHER, SELFPAY ==
[2021-08-24 14:30] LABS: Erythrocyte Sedimentation Rate 23 mm/hr (0-30)
[2021-08-24 14:31] LABS: Absolute Lymphocyte Count 2.58 X10^3/uL (0.83-4.51); Absolute Neutrophil Count 3.2 X10^3/uL (2.0-7.7); Basophil# 0.03 X10^3/uL; Basophil% 0.5 % (0-1); Eosinophils% 1.6 % (0-5); Hematocrit 41.7 % (37-47); Hemoglobin 13.6 g/dL (12.0-15.0); Lymphocyte # 2.58 X10^3/ul (0.83-4.51); Lymphocyte % 41.1 % (19-41); Mean Corp Hgb Conc 32.6 g/dL (32-36); Mean Corpuscular Hgb 29.5 pg (27.0-32.0); Mean Corpuscular Volume 90.5 fL (81-99); Mean Platelet Vol. 10.2 fl (6.2-12.0); Monocyte# 0.33 X10^3/uL; Monocyte% 5.3 % (0-10); NRBC Flagged by Analyzer 0 % (0-5); Neutrophil # 3.23 X10^3/uL (2.7-7.7); Neutrophil % 51.3 % (47-70); Platelet Count 286 K/mm3 (150-450); RBC Distribution Width CV 13.5 % (11.6-14.6); RBC Distribution Width SD 44.9 fl (35.1-43.9); Red Blood Count 4.61 M/mm3 (4.2-5.4); White Blood Count 6.3 K/mm3 (4.4-11.0)
[2021-08-24 15:06] LABS: ALB/GLOB Ratio 0.9 RATIO (0.9-2.4); AST(SGOT) 19 U/L (15-37); Alanine Aminotransfer ALT/SGPT 24 U/L (13-56); Albumin, Serum 3.5 g/dL (3.2-5.0); Alkaline Phosphatase 80 U/L (45-117); Anion Gap 5 (5-15); BUN 20 mg/dL (7-18); BUN/Creat Ratio 19.8 RATIO (10-20); Chloride 109 mmol/L (98-107); Creatinine, Serum 1.01 mg/dL (0.55-1.02); EST Glomerular Filtration Rate 57 mL/min (>60); Est Glom Filt Rate - Afr Amer 69 mL/min (>60); Globulin 3.7 g/dL (2.2-4.2); Glucose 122 mg/dL (74-106); Potassium 3.4 mmol/L (3.5-5.1); Protein, Total 7.2 g/dL (6.4-8.2); Sodium Level 140 mmol/L (136-145); Vitamin D,25 Hydroxy 48.5 ng/mL
== END ==
PROVIDERS: PCP Nurse Practitioner Family
DX: K51.00 Ulcerative (chronic) pancolitis without complications (principal); E66.9 Obesity, unspecified; R19.7 Diarrhea, unspecified
CPT/HCPCS: 36415; 80053; 82306; 85025; 85652; 86140

== ENCOUNTER → 2021-08-25 11:32 | Outpatient (CLI) | payer MEDICARE, OTHER, SELFPAY ==
[2021-08-29 14:32] LABS: Calprotectin, Stool 97 ug/g (0-120)
== END ==
PROVIDERS: PCP Nurse Practitioner Family
DX: K51.00 Ulcerative (chronic) pancolitis without complications (principal); E66.9 Obesity, unspecified; R19.7 Diarrhea, unspecified
CPT/HCPCS: 83993

== ENCOUNTER → 2021-12-13 | Outpatient (CLI) | payer MEDICARE, OTHER, SELFPAY | END | disposition home or self-care (01) | LOC: PSN 10:39 | PROVIDERS: PCP Nurse Practitioner Family; Referring Provider Internal Medicine Critical Care Medicine; Visit Provider Internal Medicine Critical Care Medicine | DX: J44.9 Chronic obstructive pulmonary disease, unspecified (principal) | CPT/HCPCS: 87635; C9803; U0003; U0005 ==

== ENCOUNTER → 2021-12-15 | Outpatient (CLI) | payer MEDICARE, OTHER, SELFPAY ==
[2021-12-15 09:12] LABS: Absolute Lymphocyte Count 2.26 X10^3/uL (0.83-4.51); Absolute Neutrophil Count 3.7 X10^3/uL (2.0-7.7); Basophil# 0.02 X10^3/uL; Basophil% 0.3 % (0-1); Eosinophil# 0.44 X10^3/uL; Eosinophils% 6.4 % (0-5); Hematocrit 40.2 % (37-47); Hemoglobin 12.6 g/dL (12.0-15.0); Lymphocyte # 2.26 X10^3/ul (0.83-4.51); Lymphocyte % 32.8 % (19-41); Mean Corp Hgb Conc 31.3 g/dL (32-36); Mean Corpuscular Hgb 29.9 pg (27.0-32.0); Mean Corpuscular Volume 95.5 fL (81-99); Mean Platelet Vol. 10.6 fl (6.2-12.0); Monocyte# 0.48 X10^3/uL; NRBC Flagged by Analyzer 0 % (0-5); Neutrophil # 3.66 X10^3/uL (2.7-7.7); Neutrophil % 53.2 % (47-70); Platelet Count 175 K/mm3 (150-450); RBC Distribution Width CV 14.6 % (11.6-14.6); RBC Distribution Width SD 51.2 fl (35.1-43.9); Red Blood Count 4.21 M/mm3 (4.2-5.4); White Blood Count 6.9 K/mm3 (4.4-11.0)
[2021-12-20 17:07] LABS: Aspirgillus flavus Negative (Neg:<1:1); Aspirgillus fumigatus Negative (Neg:<1:1); Aspirgillus niger Negative (Neg:<1:1); Cytoplasmic Ab (C-ANCA) <1:20 titer (Neg:<1:20)
[2021-12-20 22:06] LABS: Alternaria tenuis <0.10 kU/L (Class 0); Ash, White <0.10 kU/L (Class 0); Aspergillus fumigatus <0.10 kU/L (Class 0); Bermuda Grass <0.10 kU/L (Class 0); Birch <0.10 kU/L (Class 0); Black Walnut <0.10 kU/L (Class 0); Cat Hair / Dander,Stand <0.10 kU/L (Class 0); Cedar, Mountain <0.10 kU/L (Class 0); Cladosporium herbarum <0.10 kU/L (Class 0); Cockroach, American <0.10 kU/L (Class 0); Cottonwood <0.10 kU/L (Class 0); D farinae Mite <0.10 kU/L (Class 0); D pteronyssinus <0.10 kU/L (Class 0); Dog Epithelia <0.10 kU/L (Class 0); Elm, American White <0.10 kU/L (Class 0); Immunoglobulin E 34 IU/mL (6-495); Maple/Box Elder <0.10 kU/L (Class 0); Mulberry, White <0.10 kU/L (Class 0); Oak, White <0.10 kU/L (Class 0); Pecan <0.10 kU/L (Class 0); Penicillium Notatum <0.10 kU/L (Class 0); Pigweed, Rough <0.10 kU/L (Class 0); Ragweed, Short/Common <0.10 kU/L (Class 0); Russian Thistle <0.10 kU/L (Class 0); Sheep Sorrel <0.10 kU/L (Class 0); Sycamore, American <0.10 kU/L (Class 0); Timothy Grass <0.10 kU/L (Class 0)
[2021-12-21 10:44] LABS: Mouse Urine <0.10 kU/L (Class 0)
[2021-12-21 12:38] LABS: Immunoglobulin E 39 IU/mL (6-495); Perinuclear Ab (P-ANCA) <1:20 titer (Neg:<1:20)
== END | disposition home or self-care (01) ==
LOC: PAVLAB 08:51
PROVIDERS: PCP Nurse Practitioner Family; Referring Provider Internal Medicine Critical Care Medicine; Visit Provider Internal Medicine Critical Care Medicine
DX: J44.9 Chronic obstructive pulmonary disease, unspecified (principal); Z86.79 Personal history of other diseases of the circulatory system
CPT/HCPCS: 36415; 82785; 85025; 86003; 86256; 86606

== ENCOUNTER 2022-04-17 12:50 | Outpatient (CLI) | payer MEDICARE, OTHER, SELFPAY ==
--- NOTE | 2022-04-17 12:58 | CT_ITS ---
EXAM: CT CHEST, LUNG CANCER SCREENING WITHOUT INTRAVENOUS CONTRAST CLINICAL INDICATION: Tobacco Dependency TECHNIQUE: Helically acquired images were obtained of the chest without intravenous contrast using low dose (LDCT) lung cancer screening protocol. This CT exam was performed using one or more of the following dose reduction techniques: automated exposure control, adjustment of the mA and/or kV according to patient size, and/or use of iterative reconstruction technique. This report was created using Waterfall report generation technology. COMPARISON: CT Lung Cancer Screening dated 04/14/2021 FINDINGS: LUNGS AND PLEURAL SPACES: Stable 3 mm right middle lobe pulmonary nodule. Stable linear left upper lobe scar. Lungs are otherwise clear. No pleural effusion or thickening. No pneumothorax. HEART: Normal. Heart size is normal. No pericardial effusion. No significant coronary artery calcifications. MEDIASTINUM: Normal. No mediastinal or hilar adenopathy. Esophagus is unremarkable. No hiatal hernia. THYROID: Normal. No thyroid lesions. BONES/JOINTS: Normal. No suspicious lytic or blastic abnormality. VASCULATURE: Normal. Thoracic aorta is non-dilated. LYMPH NODES: Normal. No enlarged lymph nodes. CT/Low Dose CT Lung Screening IMPRESSION: 1. No evidence of lung mass or suspicious pulmonary nodule. 2. Lung-RADS score: 1 - Recommend continued annual screening with low-dose CT (LDCT) in 12 months. } Electronically Signed: Jay Valdes MD at 15:51 EST ,
== END 2022-04-17 23:59 | disposition home or self-care (01) ==
LOC: CT 12:52
PROVIDERS: PCP Registered Nurse; Referring Provider Internal Medicine Critical Care Medicine; Visit Provider Internal Medicine Critical Care Medicine
DX: F17.210 Nicotine dependence, cigarettes, uncomplicated (principal)
CPT/HCPCS: 71271

== ENCOUNTER → 2022-07-17 | Outpatient (CLI) | payer MEDICARE, OTHER, SELFPAY | END | disposition home or self-care (01) | LOC: SL 11:31 | PROVIDERS: PCP Student in an Organized Health Care Education/Training Program; Visit Provider Nurse Practitioner Acute Care | DX: G47.33 Obstructive sleep apnea (adult) (pediatric) (principal) | CPT/HCPCS: 98960; G0463 ==

== ENCOUNTER 2023-03-23 10:59 | Emergency (ER) | payer MEDICARE, OTHER, SELFPAY ==
[2023-03-23 11:00] VITALS: BP 172/90; PULSE 103; RESP 20; TEMP 36.8; O2SAT 93; BMI 39.6
--- NOTE | 2023-03-23 11:08 | EDS_ITS ---
HPI HPI - URI History of Present Illness Chief Complaint: Cold Sx Informant: patient Onset/Context/Timing Onset: Days (3) Context: Gradual Onset Timing: Continuous Quality: Burning Location: Throat Worsened by: Swallowing Relieved by: - (Salt water gargles and drinking cold water) Associated Symptoms Associated Symptoms: Positive for Nasal Congestion, Headache and Productive Cough; Negative for Sinus Pressure, Myalgias, Nausea, Vomiting, Diarrhea, Shortness of Breath or Chest Pain Narrative Narrative: Patient presents with a sore throat and cough that has been getting worse over the last 3 days. Patient describes her pain as a burning. Patient states it is localized to her throat. Patient states it got better last night with salt water gargles and drinking cold water. Patient admits to some nasal congestion and a headache. Patient also admits to some rhinorrhea. Patient states she has had a cough and is coughing up some clear sputum. Patient denies any shortness of breath. Patient denies any chest pain. ROS ROS ED Constitutional Constitutional ED: Denies chills or fever(s) Eyes Eyes: Denies blurry vision or change in vision ENT ENT ED: Reports rhinorrhea and sore throat Cardiovascular Cardiovascular: Denies chest pain or palpitations Respiratory/Chest Respiratory/Chest: Reports cough; Denies dyspnea Gastrointestinal Gastrointestinal: Denies nausea or vomiting Genitourinary Genitourinary ED: Denies dysuria or hematuria Musculoskeletal Musculoskeletal: Reports back pain; Denies neck pain Integumentary Denies abscess or rash Neurologic Neurologic: Denies headache(s) or weakness Allergic/Immunologic Allergic/Immunologic ED: Denies mouth swelling or urticaria [facility] Medical History (Updated 03/23/23 @ 14:[address] Jordin Najera, ) History of hypertension HTN (hypertension) Ulcerative colitis Home Medications Lactobacillus 25 billion cell-Bifido 25 billion [id number] capsule (Women's Probiotic) cap PO 04/04/21 [History Last Taken Unknown] losartan 50 mg-hydrochlorothiazide 12.5 mg tablet 1 tab PO DAILY 12/15/21 [History Last Taken Unknown] losartan 50 mg tablet 50 mg PO HS 01/02/22 [History Last Taken Unknown] fluticasone propionate 50 mcg/actuation nasal spray,suspension 1 spray intranasal BID PRN nasal congestion #16 grams 04/14/22 [Rx Last Taken Unknown] montelukast 10 mg tablet 10 mg PO QPM #30 tabs 06/13/22 [Rx Last Taken Unknown] albuterol sulfate 90 mcg/actuation aerosol inhaler 2 puff inhalation Q4H PRN shortness of breath or wheezing #8.5 grams 03/23/23 [Rx Last Taken Unknown] Allergy/AdvReac Type Severity Reaction Status Date / Time No Known Allergies Allergy Verified 03/23/23 11:01 Family History (Reviewed 07/17/22 @ 09:53 by Angie Landry APPLICATION TECHNICAL DESIGNER, APPLICATION TECHNICAL DESIGNER-C) Father Colon cancer Aunt Colon cancer Breast cancer Surgical History (Updated 03/23/23 @ 11:[address] Jordin Najera DO) History of back surgery History of mandibular surgery History of tonsillectomy Hx of lumbar discectomy Hx of shoulder surgery S/P ORIF (open reduction internal fixation) fracture Social History Smoking Status: Current every day smoker tobacco type: cigarettes Tobacco: How many years used: 40 EXAM Physical Exam Const Vital Signs: 03/23/23 11:00 03/23/23 11:22 03/23/23 11:22 Temperature 98.3 F 98.3 F Temperature Source Temporal Oral Pulse Rate 103 H 80 Respiratory Rate 20 H 16 Respiratory Effort Normal Respiratory Pattern Normal Blood Pressure 172/90 H 138/80 H Blood Pressure Mean 117 99 Pulse Ox 93 99 Oxygen Delivery Method Room Air Room Air 03/23/23 11:53 Temperature Temperature Source Pulse Rate 80 Respiratory Rate 16 Respiratory Effort Respiratory Pattern Normal Blood Pressure Blood Pressure Mean Pulse Ox Oxygen Delivery Method Positive well nourished and well developed General Appearance ED: well developed and NAD HEENT Reports moist mucous membranes Resp normal respiratory effort Auscultation: wheezes throughout Cardio Rate: regular rate Rhythm: regular rhythm GI non-tender and non-distended Palpation: soft Extremity normal to inspection and full ROM Neuro oriented x3, CN's II-XII intact bilaterally and no sensory deficits noted Sensorium / Orientation: alert Motor Exam: strength 5/5 throughout Psych mental status grossly normal MDM MDM MDM Narrative Medical decision making narrative: Differential diagnosis includes viral upper respiratory infection, pneumonia, COVID-19 infection, influenza infection, RSV infection, COPD exacerbation. Chest x-ray will be obtained to assess for pneumonia and COPD. COVID-19 rapid a ntigen will be obtained to assess for COVID-19 infection. Influenza A and influenza B antigens will be obtained to assess for influenza infection. RSV antigen will be obtained to assess for RSV infection. Lab Data Lab results narrative: COVID-19 rapid antigen was reviewed and was negative. Influenza A and influenza B antigens were reviewed and were negative. RSV rapid antigen was reviewed and was negative. Radiography Diagnostic Testing: Clinical Impression(s) from Imaging Studies Chest X-Ray 03/23/23 13:22 IMPRESSION: No acute cardiopulmonary process identified. Electronically Signed: Tri Toth MD at 13:39 EDT , PA and lateral chest x-ray was obtained. There are 2 views. On my independent interpretation, lung joyce are clear. There is normal cardiac silhouette. Bony thorax is normal. There is no acute process noted. Radiologist also interpreted the x-ray and agrees. Treatment and Re-Evaluation Narrative: Patient was given a DuoNeb aerosol here. Patient was feeling better after this. Patient is feeling better on reevaluation. Patient was advised of her findings. Patient was advised that this is most likely a COPD exacerbation. Patient was given a prescription for an albuterol inhaler. Patient was instructed to follow-up with her primary care physician and in 5 to 7 days. Patient understood and was agreeable with the plan. All questions were answered. Discharge Plan Triage Chief Complaint: Cold Sx ED Provider: Jordin Najera Dx/Rx/DC Orders Clinical Impression: Viral URI, COPD (chronic obstructive pulmonary disease) Instructions: ED COPD Flare Prescriptions: Continued albuterol sulfate 90 mcg/actuation HFA aerosol inhaler 2 puff inhalation Q4H PRN (Reason: shortness of breath or wheezing) Qty: 8.5 0RF Rx Instructions: administer with spacer No Action Women's Probiotic 25B cell-25B cell-50 mg capsule PO montelukast 10 mg tablet 10 mg PO QPM Qty: 30 3RF losartan-hydrochlorothiazide 50-12.5 mg tablet 1 tab PO DAILY losartan 50 mg tablet 50 mg PO HS fluticasone propionate 50 mcg/actuation spray,suspension 1 spray intranasal BID PRN (Reason: nasal congestion) Qty: 16 3RF Primary Care Provider: Gray Quintana Referrals: Gray Quintana DO [Primary Care Provider] - 5-7 Days Disposition Disposition: Home, Self Care
[2023-03-23 11:22] VITALS: BP 138/80; PULSE 80; RESP 16; TEMP 36.8; O2SAT 99
[2023-03-23 11:53] VITALS: PULSE 80; RESP 16
[2023-03-23] MEDS: Ipratropium/Albuterol Sulfate 3 ML AMPUL.NEB INHALATION (11:55)
--- NOTE | 2023-03-23 13:22 | RAD_ITS ---
HISTORY: Cough. TECHNIQUE: XR Chest 2 Views. COMPARISON: 12/17/2018. FINDINGS: CARDIOMEDIASTINAL BORDERS: Cardiac silhouette within normal limits in size. Mediastinal contour unchanged with tortuosity and calcification of the aorta. LUNGS: Chronic mild atelectasis or scarring in the lung bases. PLEURA: No pleural effusion or pneumothorax seen. OSSEOUS STRUCTURES: Degenerative change and mild scoliosis. Intramedullary shital fixation of the left humerus. Old left fourth rib fracture. RAD/Chest PA and Lateral IMPRESSION: No acute cardiopulmonary process identified. Electronically Signed: Tri Toth MD at 13:39 EDT ,
== END 2023-03-23 14:06 | disposition home or self-care (01) ==
PROVIDERS: Emergency Provider Emergency Medicine; PCP Student in an Organized Health Care Education/Training Program; Visit Provider Emergency Medicine
DX: J06.9 Acute upper respiratory infection, unspecified (principal); J44.9 Chronic obstructive pulmonary disease, unspecified; I10 Essential (primary) hypertension; F17.210 Nicotine dependence, cigarettes, uncomplicated; Z79.899 Other long term (current) drug therapy
CPT/HCPCS: 71046; 87428; 87807; 87880; 94640; 99282

== ENCOUNTER → 2023-04-17 | Outpatient (CLI) | payer MEDICARE, OTHER, SELFPAY ==
[2023-04-17 17:06] LABS: Absolute Lymphocyte Count 2.66 X10^3/uL (0.83-4.51); Absolute Neutrophil Count 2.7 X10^3/uL (2.0-7.7); Basophil# 0.02 X10^3/uL; Basophil% 0.3 % (0-1); Eosinophil# 0.37 X10^3/uL; Hemoglobin 12.8 g/dL (12.0-15.0); Lymphocyte # 2.66 X10^3/ul (0.83-4.51); Lymphocyte % 43.3 % (19-41); Mean Corp Hgb Conc 31.2 g/dL (32-36); Mean Corpuscular Hgb 28.8 pg (27.0-32.0); Mean Corpuscular Volume 92.3 fL (81-99); Mean Platelet Vol. 10.2 fl (6.2-12.0); Monocyte# 0.42 X10^3/uL; Monocyte% 6.8 % (0-10); NRBC Flagged by Analyzer 0 % (0-5); Neutrophil # 2.66 X10^3/uL (2.7-7.7); Neutrophil % 43.4 % (47-70); Platelet Count 295 K/mm3 (150-450); RBC Distribution Width CV 13.4 % (11.6-14.6); Red Blood Count 4.44 M/mm3 (4.2-5.4); White Blood Count 6.1 K/mm3 (4.4-11.0)
[2023-04-17 17:10] LABS: Erythrocyte Sedimentation Rate 18 mm/hr (0-30)
[2023-04-17 17:29] LABS: ALB/GLOB Ratio 0.9 RATIO (0.9-2.4); AST(SGOT) 13 U/L (15-37); Alanine Aminotransfer ALT/SGPT 19 U/L (13-56); Albumin, Serum 3.3 g/dL (3.2-5.0); Alkaline Phosphatase 69 U/L (45-117); Anion Gap 5 (5-15); BUN 19 mg/dL (7-18); BUN/Creat Ratio 17.6 RATIO (10-20); Calcium,Total 8.5 mg/dL (8.5-10.1); Chloride 108 mmol/L (98-107); Creatinine, Serum 1.08 mg/dL (0.55-1.02); EST Glomerular Filtration Rate 53 mL/min (>60); Est Glom Filt Rate - Afr Amer 64 mL/min (>60); Globulin 3.6 g/dL (2.2-4.2); Glucose 166 mg/dL (74-106); Potassium 3.7 mmol/L (3.5-5.1); Protein, Total 6.9 g/dL (6.4-8.2); Sodium Level 140 mmol/L (136-145)
== END | disposition home or self-care (01) ==
PROVIDERS: PCP Student in an Organized Health Care Education/Training Program
DX: K51.00 Ulcerative (chronic) pancolitis without complications (principal); J45.998 Other asthma; E66.9 Obesity, unspecified
CPT/HCPCS: 36415; 80053; 85025; 85652; 86140

== ENCOUNTER → 2023-04-18 | Outpatient (CLI) | payer MEDICARE, OTHER, SELFPAY ==
[2023-04-24 11:09] LABS: Calprotectin, Stool 2290 ug/g (0-120)
== END | disposition home or self-care (01) ==
LOC: LAB 10:43
PROVIDERS: PCP Student in an Organized Health Care Education/Training Program
DX: K51.00 Ulcerative (chronic) pancolitis without complications (principal); J45.998 Other asthma; E66.9 Obesity, unspecified
CPT/HCPCS: 83993

== ENCOUNTER 2023-04-25 21:04 | Emergency (ER) | payer MEDICARE, OTHER, SELFPAY ==
[2023-04-25 21:06] VITALS: BP 154/68; PULSE 100; RESP 18; TEMP 37; O2SAT 99; BMI 39.3
--- NOTE | 2023-04-25 21:21 | CT_ITS ---
INDICATION: abdominal pain, hx of colitis EXAMINATION: CT Abdomen And Pelvis W/ Contrast Injection TECHNIQUE: Helically acquired images were obtained of the abdomen and pelvis with sagittal and coronal reconstructed images. Individualized dose optimization techniques were used for this CT. IV contrast dosage and agent: 100 mL of Isovue-370. Oral contrast: None. COMPARISON: None. FINDINGS: VESSELS: No abdominal aortic aneurysm or dissection. LIVER: No evidence of a mass. No intrahepatic or extrahepatic biliary duct dilation. GALLBLADDER: Calcified stone. No evidence of cholecystitis. PANCREAS: No focal solid or cystic mass. No evidence of pancreatitis. SPLEEN: Normal. ADRENAL GLANDS: Normal. KIDNEYS AND URETERS: Bilateral parapelvic cysts. No urinary tract stone. No hydronephrosis or hydroureter. No significant asymmetric perinephric stranding. URINARY BLADDER: Unremarkable. BOWEL: Thickening of the colon with adjacent mild fat stranding from the mid transverse colon to the proximal sigmoid colon. No evidence of diverticulosis or diverticulitis. Appendix appears normal. No evidence of bowel obstruction. REPRODUCTIVE ORGANS: No evidence of a pelvic mass. PERITONEUM: No intraabdominal free fluid or free air. LYMPH NODES: No pathologically enlarged mesenteric or retroperitoneal lymph nodes. ABDOMINAL WALL: No abdominal or pelvic wall hernia. BONES: No acute abnormality. LOWER CHEST: 3 mm right middle lobe pulmonary nodule unchanged as compared through 04/14/2021. CT/Abdomen/Pelvis W IV Cont ONLY IMPRESSION: Findings consistent with colitis from the mid transverse colon to the proximal sigmoid colon. Electronically Signed: Brady De La Rosa DO at 22:21 EST ,
--- NOTE | 2023-04-25 21:22 | ED.VIS.GI ---
HPI HPI - GI History of Present Illness Chief Complaint: Abd Pain Detail of Chief Complaint: Abdominal pain Informant: patient Diarrhea/Melena/Hematochezia GI Symptom: Positive for Diarrhea Narrative Narrative: Patient presents to the emergency department complaint of abdominal pain that started about a week ago. Patient states she has had diarrhea every time she eats and started passing blood in her stool 4 days ago. She contacted her record center coordinator who did some blood work and he also collected a stool sample. Patient has not had any results from that. Patient denies recent antibiotic usage. Before her symptoms started she had a cold and viral upper respiratory infection. Patient's had some chills at home over the last couple of days and her thermometer at home without a temperature of 100.8. Patient became concerned and presents for evaluation. [facility] Medical History (Updated 04/25/23 @ 22:[address] Olinda Joshua, ) History of hypertension HTN (hypertension) Ulcerative colitis Home Medications Lactobacillus 25 billion cell-Bifido 25 billion pjof-BPE-fifnr capsule (Women's Probiotic) cap PO 04/04/21 [History Last Taken Unknown] losartan 50 mg-hydrochlorothiazide 12.5 mg tablet 1 tab PO DAILY 12/15/21 [History Last Taken Unknown] losartan 50 mg tablet 50 mg PO HS 01/02/22 [History Last Taken Unknown] fluticasone propionate 50 mcg/actuation nasal spray,suspension 1 spray intranasal BID PRN nasal congestion #16 grams 04/14/22 [Rx Last Taken Unknown] montelukast 10 mg tablet 10 mg PO QPM #30 tabs 06/13/22 [Rx Last Taken Unknown] albuterol sulfate 90 mcg/actuation aerosol inhaler 2 puff inhalation Q4H PRN shortness of breath or wheezing #8.5 grams 03/23/23 [Rx Last Taken Unknown] ciprofloxacin HCl 500 mg tablet 500 mg PO BID #14 TABLETS 04/25/23 [Rx Last Taken Unknown] hydrocodone-acetaminophen 5-325mg 5mg-325mg 1 tab PO Q4H PRN PRN Pain 2 days #10 TABLETS 04/25/23 [Rx Last Taken Unknown] metronidazole 500 mg tablet 500 mg PO Q8H 7 days #21 tabs 04/25/23 [Rx Last Taken Unknown] ondansetron 4 mg disintegrating tablet 4 mg PO Q8H PRN PRN Nausea #10 tabs 04/25/23 [Rx Last Taken Unknown] prednisone 20 mg tablet 20 mg PO BID #14 tabs 04/25/23 [Rx Last Taken Unknown] Allergy/AdvReac Type Severity Reaction Status Date / Time No Known Allergies Allergy Verified 04/25/23 21:09 Family History (Reviewed 07/17/22 @ 09:53 by Angie Landry INSTALLATION SERVICE REPRESENTATIVE, INSTALLATION SERVICE REPRESENTATIVE-C) Father Colon cancer Aunt Colon cancer Breast cancer Surgical History (Updated 03/23/23 @ 11:[address] Jordin Najera DO) History of back surgery History of mandibular surgery History of tonsillectomy Hx of lumbar discectomy Hx of shoulder surgery S/P ORIF (open reduction internal fixation) fracture Social History Smoking Status: Current every day smoker tobacco type: cigarettes Tobacco: How many years used: 40 ROS ROS ED Review of Systems ROS Unobtainable: other Constitutional Constitutional ED: Reports lethargy; Denies chills, fever(s), sweats or weight loss Eyes Eyes: Denies blurry vision, change in vision or diplopia ENT ENT ED: Denies rhinorrhea or sore throat Cardiovascular Cardiovascular: Denies chest pain, orthopnea or racing heartbeat Respiratory/Chest Respiratory/Chest: Denies cough, dyspnea, dyspnea on exertion, orthopnea or sputum Gastrointestinal Gastrointestinal: Reports abdominal pain and diarrhea; Denies nausea or vomiting Genitourinary Genitourinary ED: Denies dysuria, hematuria or urinary frequency Musculoskeletal Musculoskeletal: Denies arthralgias, back pain, myalgias or neck pain Integumentary Denies abscess, Abrasions or rash Neurologic Neurologic: Denies headache(s) or weakness Psychiatric Psychiatric: Denies anxiety, depression or suicidal thoughts Endocrine Endocrinology: Denies polydipsia, polyphagia or polyuria Hematologic/Lymphatic Hematologic/Lymphatic: Denies easy bleeding, easy bruising or lymphadenopathy Allergic/Immunologic Allergic/Immunologic ED: Denies mouth swelling, tongue swelling or urticaria EXAM Physical Exam Const Vital Signs: 04/25/23 21:06 Temperature 98.6 F Temperature Source Oral Pulse Rate 100 Respiratory Rate 18 Blood Pressure 154/68 H Blood Pressure Mean 96 Pulse Ox 99 Oxygen Delivery Method Room Air Positive well nourished and well developed General Appearance ED: well developed and NAD HEENT Reports TM's clear and moist mucous membranes normocephalic and atraumatic; Negative for trauma or tenderness Tympanic Membrane ED: Yes TM's clear Eyes PERRL and EOMs intact bilaterally General Eye ED: Negative for pale conjunctiva or scleral icterus Neck no lymphadenopathy, supple and no JVD General: Negative for tenderness Chest Wall inspection of chest normal and palpation of chest normal Chest: Negative for tenderness Resp normal respiratory effort and clear to auscultation bilaterally Effort and Inspection: Negative for respiratory distress or pain with movement Auscultation: Negative for rhonchi, wheezes or diminished lung sounds Cardio regular rate, regular rhythm, S1 normal heart sound, S2 normal heart sound and no murmurs Peripheral Pulses: pulses 2+ throughout GI normal to inspection, nondistended, normoactive bowel sounds, soft to palpation, non-distended and no masses GI Narrative: Tenderness palpation over left lower quadrant with some guarding. There is no rebound, rigidity, or pineal signs. No mass palpated Back/Spine no CVA tenderness and no thoracic nor lumbar tenderness Extremity normal to inspection General Extremety ED: Negative for edema General Extremity: Negative for edema Neuro oriented x3, CN's II-XII intact bilaterally, no sensory deficits noted and gait normal Sensorium / Orientation: awake, alert, oriented to person, oriented to place and oriented to time Motor Exam: strength 5/5 throughout and strength abnormal Psych mental status grossly normal Skin no rashes or lesions noted and no wounds MDM MDM MDM Narrative Medical decision making narrative: Presents with abdominal pain that started a week ago. History of colitis. She had an IV line established. Basic labs and CT scan of the abdomen pelvis will be obtained to evaluate further. CBC with differential showed a white count 9.8 with hemoglobin of 12.9 and platelet count 319. Chemistries unremarkable. LFTs normal. Lactate normal at 1.6. Urine out is normal. CT scan of the abdomen pelvis shows colitis involving the mid transverse colon to sigmoid colon. Clinically patient looks well. I did start patient on Cipro and Flagyl. She states that her record center coordinator normally start her on steroids as well I will treat her with prednisone for a week and then she is got an appointment to see her record center coordinator in 5 days. Advised to return if worsening pain, fever, vomiting, persistent heavy bloody stools or condition worsening way. Lab Data Attestation: I reviewed the patient's lab results. Labs: Laboratory Results - last 24 hr 04/25/23 21:40 WBC 9.8 RBC 4.52 Hgb 12.9 Hct 41.3 MCV 91.4 MCH 28.5 MCHC 31.2 L RDW Std Deviation 46.2 H RDW Coeff of Javi 13.6 Plt Count 319 MPV 9.6 Immature Gran % (Auto) 0.400 Neut % (Auto) 54.1 Lymph % (Auto) 26.7 [place] % (Auto) 13.1 H Eos % (Auto) 5.4 H Baso % (Auto) 0.3 Absolute Neuts (auto) 5.3 Absolute Lymphs (auto) 2.61 Nucleated RBC % 0 Sodium 138 Potassium 4.0 Chloride 106 Carbon Dioxide 27.0 Anion Gap 5 BUN 18 Creatinine 1.00 Estim Creat Clear Calc 43.27 Est GFR (MDRD) Af Amer 70 Est GFR (MDRD) Non-Af 58 L BUN/Creatinine Ratio 18.0 Glucose 114 H Lactic Acid 1.6 Calcium 8.6 Total Bilirubin 0.30 AST 15 ALT 20 Alkaline Phosphatase 68 Total Protein 6.9 Albumin 3.1 L Globulin 3.8 Albumin/Globulin Ratio 0.8 L Urine Color Yellow Urine Clarity Sl. Cloudy Urine pH 6.0 Ur Specific [place] 1.015 Urine Protein 15 H Urine Glucose (UA) Normal Urine Ketones Negative Urine Occult Blood 50 H Urine Nitrite Negative Urine Bilirubin Negative Urine Urobilinogen Normal Ur Leukocyte Esterase 100 H Urine RBC 0 SEEN Urine WBC 0-5 SEEN Ur Squamous Epith Cells 0-5 SEEN Urine Bacteria 0 SEEN Urine Mucus 0 SEEN Radiography Diagnostic Testing: Clinical Impression(s) from Imaging Studies Abdomen/Pelvis CT 04/25/23 21:21 IMPRESSION: Findings consistent with colitis from the mid transverse colon to the proximal sigmoid colon. Electronically Signed: Brady De La Rosa DO at 22:21 EST , Discharge Plan Triage Chief Complaint: Abd Pain ED Provider: Olinda Joshua Dx/Rx/DC Orders Clinical Impression: Colitis Instructions: Ulcerative Colitis Dc, ED Ulcerative Colitis Prescriptions: New ciprofloxacin HCl [ciprofloxacin HCl] 500 mg tablet 500 mg PO BID Qty: 14 0RF metronidazole 500 mg tablet 500 mg PO Q8H 7 Days Qty: 21 0RF hydrocodone-acetaminophen [hydrocodone-acetaminophen] 5-325 mg tablet 1 tab PO Q4H PRN PRN (Reason: Pain) 2 Days Qty: 10 0RF ondansetron [ondansetron] 4 mg tablet,disintegrating 4 mg PO Q8H PRN PRN (Reason: Nausea) Qty: 10 0RF prednisone 20 mg tablet 20 mg PO BID Qty: 14 0RF No Action Women's Probiotic 25B cell-25B cell-50 mg capsule PO montelukast 10 mg tablet 10 mg PO QPM Qty: 30 3RF losartan-hydrochlorothiazide 50-12.5 mg tablet 1 tab PO DAILY losartan 50 mg tablet 50 mg PO HS albuterol sulfate 90 mcg/actuation HFA aerosol inhaler 2 puff inhalation Q4H PRN (Reason: shortness of breath or wheezing) Qty: 8.5 0RF Rx Instructions: administer with spacer fluticasone propionate 50 mcg/actuation spray,suspension 1 spray intranasal BID PRN (Reason: nasal congestion) Qty: 16 3RF Primary Care Provider: Gray Quintana Referrals: Gray Quintana DO [Primary Care Provider] - Activity Restrictions/Additional Instructions: Follow-up with your record center coordinator Disposition Disposition: Home, Self Care
[2023-04-25] MEDS: 0.9% Normal Saline (1000mL) 1,000 ML 125 ML IV (21:36)
[2023-04-25 21:45] LABS: Bacteria 0 SEEN /hpf (None Seen); Mucous, Urine 0 SEEN /hpf (<or=2+); Red Blood Cells-Urine 0 SEEN /hpf (0-5)
[2023-04-25 21:47] LABS: Absolute Lymphocyte Count 2.61 X10^3/uL (0.83-4.51); Absolute Neutrophil Count 5.3 X10^3/uL (2.0-7.7); Basophil# 0.03 X10^3/uL; Basophil% 0.3 % (0-1); Color, Urine Yellow (Yellow); Eosinophil# 0.53 X10^3/uL; Eosinophils% 5.4 % (0-5); Glucose, Dipstick Normal (Normal); Hematocrit 41.3 % (37-47); Hemoglobin 12.9 g/dL (12.0-15.0); Ketone-Dipstick Negative (Negative); Leukocyte Esterase-Dipstick 100 /ul (Negative); Lymphocyte # 2.61 X10^3/ul (0.83-4.51); Lymphocyte % 26.7 % (19-41); Mean Corp Hgb Conc 31.2 g/dL (32-36); Mean Corpuscular Hgb 28.5 pg (27.0-32.0); Mean Corpuscular Volume 91.4 fL (81-99); Mean Platelet Vol. 9.6 fl (6.2-12.0); Monocyte# 1.28 X10^3/uL; Monocyte% 13.1 % (0-10); NRBC Flagged by Analyzer 0 % (0-5); Neutrophil % 54.1 % (47-70); Nitrite-Dipstick Negative (Negative); Occult Blood-Urine 50 /ul (Negative); Platelet Count 319 K/mm3 (150-450); Protein-Dipstick 15 mg/dl (Negative); RBC Distribution Width CV 13.6 % (11.6-14.6); RBC Distribution Width SD 46.2 fl (35.1-43.9); Red Blood Count 4.52 M/mm3 (4.2-5.4); Specific Gravity, Urine 1.015 (1.002-1.030); Urine Bilirubin Dipstick Negative (Negative); Urine Clarity Sl. Cloudy (Clear); Urine Urobilinogen Normal (Normal); White Blood Count 9.8 K/mm3 (4.4-11.0)
[2023-04-25 22:00] LABS: Squamous Epithelial Cells - UA 0-5 SEEN /hpf (5-10); White Blood Cells 0-5 SEEN /hpf (0-5)
[2023-04-25 22:02] LABS: ALB/GLOB Ratio 0.8 RATIO (0.9-2.4); AST(SGOT) 15 U/L (15-37); Alanine Aminotransfer ALT/SGPT 20 U/L (13-56); Albumin, Serum 3.1 g/dL (3.2-5.0); Alkaline Phosphatase 68 U/L (45-117); Anion Gap 5 (5-15); BUN 18 mg/dL (7-18); Calcium,Total 8.6 mg/dL (8.5-10.1); Chloride 106 mmol/L (98-107); EST Glomerular Filtration Rate 58 mL/min (>60); Est Glom Filt Rate - Afr Amer 70 mL/min (>60); Estimated Creatinine Clearance 43.27 ml/min; Globulin 3.8 g/dL (2.2-4.2); Glucose 114 mg/dL (74-106); Protein, Total 6.9 g/dL (6.4-8.2); Sodium Level 138 mmol/L (136-145)
[2023-04-25 22:13] LABS: Lactic Acid 1.6 mmol/L (0.4-1.9)
[2023-04-25] MEDS: Ciprofloxacin 500 MG Tablet PO (22:48)
[2023-04-25] MEDS: predniSONE 20 MG Tablet 40 MG PO (22:48)
[2023-04-25] MEDS: metroNIDAZOLE 500 MG Tablet PO (22:48)
== END 2023-04-25 23:29 | disposition home or self-care (01) ==
PROVIDERS: Emergency Provider Emergency Medicine; PCP Student in an Organized Health Care Education/Training Program; Visit Provider Emergency Medicine
DX: K52.9 Noninfective gastroenteritis and colitis, unspecified (principal); F17.210 Nicotine dependence, cigarettes, uncomplicated; I10 Essential (primary) hypertension; Z79.899 Other long term (current) drug therapy
CPT/HCPCS: 74177; 80053; 81001; 83605; 85025; 96360; 96361; 99283; J7030; Q9967; A4216

== ENCOUNTER → 2023-04-25 | Outpatient (CLI) | payer MEDICARE, OTHER, SELFPAY ==
[2023-05-03 09:06] LABS: Miscellaneous Lab Procedure E
== END | disposition home or self-care (01) ==
LOC: LAB 09:15 → LABSPEC 09:16
PROVIDERS: PCP Student in an Organized Health Care Education/Training Program
DX: R19.7 Diarrhea, unspecified (principal)
CPT/HCPCS: 87177; 87209; 87329; 87493

== ENCOUNTER → 2023-10-09 | Outpatient (CLI) | payer MEDICARE, OTHER, SELFPAY ==
[2023-10-09 12:56] LABS: Hematocrit 39.5 % (37-47); Hemoglobin 12.3 g/dL (12.0-15.0); Mean Corp Hgb Conc 31.1 g/dL (32-36); Mean Corpuscular Volume 89.8 fL (81-99); Mean Platelet Vol. 10.3 fl (6.2-12.0); Platelet Count 251 K/mm3 (150-450); RBC Distribution Width CV 13.9 % (11.6-14.6); RBC Distribution Width SD 45.7 fl (35.1-43.9); White Blood Count 5.7 K/mm3 (4.4-11.0)
[2023-10-09 13:50] LABS: Anion Gap 8 (5-15); BUN 24 mg/dL (7-18); BUN/Creat Ratio 26.3 RATIO (10-20); Chloride 107 mmol/L (98-107); Creatinine, Serum 0.91 mg/dL (0.55-1.02); EST Glomerular Filtration Rate 64 mL/min (>60); Est Glom Filt Rate - Afr Amer 78 mL/min (>60); Glucose 108 mg/dL (74-106); Potassium 3.9 mmol/L (3.5-5.1); Sodium Level 138 mmol/L (136-145)
== END | disposition home or self-care (01) ==
PROVIDERS: PCP Student in an Organized Health Care Education/Training Program; Referring Provider Otolaryngology; Visit Provider Otolaryngology
DX: Z01.812 Encounter for preprocedural laboratory examination (principal); Z01.810 Encounter for preprocedural cardiovascular examination
CPT/HCPCS: 36415; 80048; 85027; 93005

== ENCOUNTER 2023-12-05 14:04 | Emergency (ER) | payer MEDICARE, OTHER, SELFPAY ==
[2023-12-05 14:05] VITALS: BP 144/91; PULSE 87; RESP 17; TEMP 36.4; O2SAT 94; BMI 41.6
--- NOTE | 2023-12-05 15:25 | EKG12_ITS ---
Test Reason : ABN LABS Blood Pressure : / mmHG Vent. Rate : 073 BPM Atrial Rate : 073 BPM P-R Int : 146 ms QRS Dur : 080 ms QT Int : 400 ms P-R-T Axes : 011 014 024 degrees QTc Int : 440 ms Normal sinus rhythm Normal ECG Confirmed by JANET FRITZ, JAYLEEN ([id number]), features editor JOHN WHITLOCK ([id number]) on 12/12/2023 10:33:33 A M Referred By: Confirmed By:SUE GONZALES MD
--- NOTE | 2023-12-05 15:25 | CT_ITS ---
STUDY: CTA CHEST REASON FOR EXAM: Female, 73 years old. pleuritic cp and elevated d-dimer RADIATION DOSAGE (If Supplied By Facility): CTDIvol = ( 9.97 ) mGy, DLP = ( 496.22 ) mGycm TECHNIQUE: The examination was performed with the intravenous administration of IV 100mL Isovue-300. Post-processing of the angiographic images was performed, with multiplanar reformation and 3D reconstruction. Individualized dose optimization techniques were used for this CT. COMPARISON: None. FINDINGS: Normal enhancement of the main pulmonary artery and right and left pulmonary arteries. Normal enhancement of the bilateral peripheral pulmonary arteries. There is no demonstrated pulmonary embolism. Minor atherosclerotic change of the aorta without evidence for aneurysm.. There is no demonstrated aortic dissection. Normal heart and pericardium. There is mild coronary artery calcification Normal mediastinum. Normal hilar regions. Normal visualized trachea and bronchi. The lungs are well expanded. Minimal subsegmental atelectasis at the right lung base.. Tiny peripheral nodular opacity in the right lower and left upper lobes measuring 2 to 3 mm in size likely of no significance Normal pleura. Normal chest wall structures. Dorsal spine demonstrates advanced spondylosis Small hiatal hernia is noted CT/CTA Chest W/WO Contrast IMPRESSION: ASHD. No acute cardiopulmonary pathology.. No evidence for pulmonary embolus Electronically Signed: Brady Reyes MD at 16:56 EDT ,
--- NOTE | 2023-12-05 15:30 | EX.ED.DYSGE1 ---
HPI History of Present Illness Chief Complaint: Abn Labs Informant: patient Narrative Narrative: 73-year-old female history of hypertension and ulcerative colitis and chronic kidney disease. Patient states she has recently had chest discomfort while she was doing yard work she thinks she pulled a muscle in her chest. Said the next day after reaching up cutting hedges and bushes she was having pain when she took a deep breath. Denies any exertional chest pain no history of heart disease. No history of DVT or PE or risk factors. No recent travel, surgery or immobilization. No calf pain or swelling. No hemoptysis. She was seen at local primary care physician's office they did a D-dimer which was elevated at 1330 and sent her to the emergency department. Prior similar symptoms: No Recent Illness/Hospitalization: No PFSH PFSH Medical History Ulcerative colitis HTN (hypertension) History of hypertension Home Medications ?Medication ?Instructions ?Recorded ?Last Taken ?Type Lactobacillus 25 billion cap PO 04/04/21 Unknown History cell-Bifido 25 billion twqo-[id number]-fvecs capsule (Women's Probiotic) losartan 50 mg-hydrochlorothiazide 1 tab PO DAILY 12/15/21 Unknown History 12.5 mg tablet losartan 50 mg tablet 50 mg PO HS 01/02/22 Unknown History fluticasone propionate 50 1 spray intranasal BID PRN nasal 04/14/22 Unknown Rx mcg/actuation nasal congestion #16 grams spray,suspension montelukast 10 mg tablet 10 mg PO QPM #30 tabs 06/13/22 Unknown Rx albuterol sulfate 90 mcg/actuation 2 puff inhalation Q4H PRN 03/23/23 Unknown Rx aerosol inhaler shortness of breath or wheezing #8.5 grams ciprofloxacin HCl 500 mg tablet 500 mg PO BID #14 TABLETS 04/25/23 Unknown Rx hydrocodone-acetaminophen 5-325mg 1 tab PO Q4H PRN PRN Pain 2 days 04/25/23 Unknown Rx 5mg-325mg #10 TABLETS metronidazole 500 mg tablet 500 mg PO Q8H 7 days #21 tabs 04/25/23 Unknown Rx ondansetron 4 mg disintegrating 4 mg PO Q8H PRN PRN Nausea #10 tabs 04/25/23 Unknown Rx tablet prednisone 20 mg tablet 20 mg PO BID #14 tabs 04/25/23 Unknown Rx Allergy/AdvReac Type Severity Reaction Status Date / Time No Known Allergies Allergy Verified 12/05/23 14:05 Family History Father Colon cancer Aunt Colon cancer Breast cancer Surgical History S/P ORIF (open reduction internal fixation) fracture Hx of shoulder surgery Hx of lumbar discectomy History of mandibular surgery History of tonsillectomy History of back surgery Social History Smoking Status: Former smoker Tobacco: How many years used: 40 ROS ROS ED ROS Narrative Chest pain. Review of Systems ROS Unobtainable: Denies due to encephalopathy Constitutional Constitutional ED: Denies chills or fever(s) Eyes Eyes: Denies blurry vision ENT ENT ED: Denies ear pain Cardiovascular Cardiovascular: Reports chest pain; Denies palpitations or racing heartbeat Respiratory/Chest Respiratory/Chest: Denies cough Gastrointestinal Gastrointestinal: Denies abdominal pain Genitourinary Genitourinary ED: Denies dysuria or hematuria Musculoskeletal Musculoskeletal: Denies arthralgias or back pain Integumentary Denies abscess Neurologic Neurologic: Denies headache(s) or paresthesias Psychiatric Psychiatric: Denies anxiety or depression Endocrine Endocrinology: Denies cold intolerance Hematologic/Lymphatic Hematologic/Lymphatic: Reports none Allergic/Immunologic Allergic/Immunologic ED: Denies mouth swelling, tongue swelling or urticaria EXAM Physical Exam Narrative Exam Narrative: 73-year-old female no acute distress vital signs stable afebrile. Pulse ox 94% on room air no signs hypoxia. H EENT exam unremarkable. Neck nontender no JVD. Lungs clear to auscultation bilaterally. Heart regular rate and rhythm rate about 85 no murmur. Chest wall and ribs only minimal anterior chest reproducible pain. Musculoskeletal. No redness or warmth. No bruising. Abdomen soft nontender. Moving all 4 extremities. 5 of 5 pain medicine physician strength. Dorsi plantarflexion intact. Calves are nontender without edema or cords. Neurologically she is awake and alert no focal motor deficits. Benign exam. Const Vital Signs: 12/05/23 14:05 12/05/23 14:38 12/05/23 15:25 Temperature 97.5 F L Temperature Source Temporal Pulse Rate 87 Respiratory Rate 17 Respiratory Effort Normal Non-Labored Respiratory Pattern Normal Blood Pressure 144/91 H Blood Pressure Mean 108 Pulse Ox 94 Oxygen Delivery Method Room Air Room Air 12/05/23 16:37 12/05/23 18:00 12/05/23 20:00 Temperature Temperature Source Pulse Rate 81 68 87 Respiratory Rate 13 16 18 Respiratory Effort Respiratory Pattern Blood Pressure 124/86 H 139/79 H 126/87 H Blood Pressure Mean 98 99 100 Pulse Ox 98 98 97 Oxygen Delivery Method Room Air Room Air Room Air Positive well nourished and well developed; Negative for cachectic, contractures or unkempt General Appearance ED: well developed and NAD; Negative for unkempt, cachectic, contractures, cyanotic, diaphoretic or pallor Nutritional Appearance: Negative for cachectic HEENT Reports moist mucous membranes Negative for trauma or tenderness Eyes EOMs intact bilaterally General Eye ED: Yes other; Negative for pale conjunctiva or scleral icterus Neck no lymphadenopathy, supple and no JVD General: Negative for tenderness Lymph Lymphatic: Negative for other Chest Wall Negative for inspection of chest normal or palpation of chest normal Chest: Negative for other Resp normal respiratory effort and clear to auscultation bilaterally Effort and Inspection: Negative for retractions Auscultation: Negative for rales, rhonchi or wheezes Cardio regular rate, regular rhythm, S1 normal heart sound, S2 normal heart sound and no murmurs Palpation: Negative for palpable S3 or palpable S4 Rate: Negative for bradycardia or tachycardic Rhythm: Negative for abnormal rhythm GI normal to inspection, nondistended, normoactive bowel sounds, non-tender, non-distended and no masses Inspection: Negative for abdominal distention Auscultation: normoactive bowel sounds Palpation: soft; Negative for tender, guarding or rebound tenderness present Back/Spine no CVA tenderness General Back: Negative for CVA tenderness Cervical Spine: Negative for cervical spine tenderness Thoracic Spine / Upper Back: Negative for thoracic spinal tenderness or paraspinal muscle tenderness Lumbar Spine / Lower Back: Negative for lumbar spinal tenderness Extremity normal to inspection General Extremety ED: Negative for edema or tenderness General Extremity: Negative for edema Neuro oriented x3 and CN's II-XII intact bilaterally Sensorium / Orientation: alert; Negative for orientation impaired, lethargic, stuporous or other Motor Exam: strength 5/5 throughout; Negative for general weakness or strength abnormal Psych mental status grossly normal Appearance: Negative for unkempt Attitude: No agitated Mood & Affect: Negative for depressed or anxious Skin no rashes or lesions noted, no wounds and skin turgor normal General Skin Exam: elasticity normal; Negative for jaundice or pallor Lesions: No lesion noted Rashes: No rashes noted Trauma: Negative for abrasion Wounds: Negative for wounds noted MDM MDM MDM Narrative Medical decision making narrative: 73-year-old female with atypical Smylie reproducible chest pain it may be from musculoskeletal strain she has no DVT or PE risk factors or history. She has had no travel, surgery immobilization. No leg pain or swelling. Primary care physician's office did a D-dimer which is elevated and sent her in to get a CTA of her chest and a cardiac workup. My suspicion of this being cardiac is actually low and my suspicion for this being the PE is low. Repeat exam patient is doing well. My clinical suspicion was low for this being either cardiac or PE workups are negative. We discussed the patient's test results. She is comfortable with being discharged. History & Record Review Discussion w/independent historian: Patient Additional record(s) reviewed:: Prior outpatient record, Prior ED visit and Prior labs Lab Data Attestation: I reviewed the patient's lab results. Lab results narrative: CBC shows white count 6. H&H 11.4 and 35. Platelets 262. Electrolytes show gap 6. BUN and creatinine are 19 and 0.8. Glucose 144. Troponin normal at 33. Labs: Laboratory Results - last 24 hr 12/05/23 15:03 WBC 6.6 RBC 4.06 L Hgb 11.4 L Hct 35.2 L MCV 86.7 MCH 28.1 MCHC 32.4 RDW Std Deviation 45.0 H RDW Coeff of Javi 14.1 Plt Count 262 MPV 10.3 Immature Gran % (Auto) 0.300 Neut % (Auto) 84.7 H Lymph % (Auto) 13.9 L [place] % (Auto) 0.9 Eos % (Auto) 0.0 Baso % (Auto) 0.2 Absolute Neuts (auto) 5.6 Absolute Lymphs (auto) 0.92 Nucleated RBC % 0 Sodium 138 Potassium 3.7 Chloride 109 H Carbon Dioxide 23.0 Anion Gap 6 BUN 19 H Creatinine 0.86 Estim Creat Clear Calc 70.69 Est GFR (MDRD) Af Amer 83 Est GFR (MDRD) Non-Af 68 BUN/Creatinine Ratio 22.0 H Glucose 144 H Calcium 8.9 Troponin I High Sens 33 Radiography Diagnostic Testing: Clinical Impression(s) from Imaging Studies Chest CTA 12/05/23 15:25 IMPRESSION: ASHD. No acute cardiopulmonary pathology.. No evidence for pulmonary embolus Electronically Signed: Brady Reyes MD at 16:56 EDT , Chest X-Ray 12/05/23 15:53 IMPRESSION: Minor chronic interstitial thickening in the lung bases. No acute disease Electronically Signed: Brady Reyes MD at 16:26 EDT , Rhythm Strip Rhythm Strip: Sinus Rhythm Rate: 73 Ectopy: None EKG Initial EKG: Attestation: I personally reviewed and interpreted this EKG as follows: Interpretation: Sinus Rhythm and No Acute Injury Pattern Comments: Normal sinus rhythm rate of 73 no acute signs of PA or ischemia. Discharge Plan Triage Chief Complaint: Abn Labs ED Provider: Jc Crouch Dx/Rx/DC Orders Prescriptions: No Action Women's Probiotic 25B cell-25B cell-50 mg capsule PO montelukast 10 mg tablet 10 mg PO QPM Qty: 30 3RF losartan-hydrochlorothiazide 50-12.5 mg tablet 1 tab PO DAILY losartan 50 mg tablet 50 mg PO HS ciprofloxacin HCl [ciprofloxacin HCl] 500 mg tablet 500 mg PO BID Qty: 14 0RF metronidazole 500 mg tablet 500 mg PO Q8H 7 Days Qty: 21 0RF hydrocodone-acetaminophen [hydrocodone-acetaminophen] 5-325 mg tablet 1 tab PO Q4H PRN PRN (Reason: Pain) 2 Days Qty: 10 0RF ondansetron [ondansetron] 4 mg tablet,disintegrating 4 mg PO Q8H PRN PRN (Reason: Nausea) Qty: 10 0RF prednisone 20 mg tablet 20 mg PO BID Qty: 14 0RF albuterol sulfate 90 mcg/actuation HFA aerosol inhaler 2 puff inhalation Q4H PRN (Reason: shortness of breath or wheezing) Qty: 8.5 0RF Rx Instructions: administer with spacer fluticasone propionate 50 mcg/actuation spray,suspension 1 spray intranasal BID PRN (Reason: nasal congestion) Qty: 16 3RF Primary Care Provider: Gray Quintana Referrals: Gray Quintana DO [Primary Care Provider] - Print Language: [place]
[2023-12-05 15:42] LABS: Absolute Lymphocyte Count 0.92 X10^3/uL (0.83-4.51); Absolute Neutrophil Count 5.6 X10^3/uL (2.0-7.7); Basophil# 0.01 X10^3/uL; Basophil% 0.2 % (0-1); Hematocrit 35.2 % (37-47); Hemoglobin 11.4 g/dL (12.0-15.0); Lymphocyte # 0.92 X10^3/ul (0.83-4.51); Lymphocyte % 13.9 % (19-41); Mean Corp Hgb Conc 32.4 g/dL (32-36); Mean Corpuscular Hgb 28.1 pg (27.0-32.0); Mean Corpuscular Volume 86.7 fL (81-99); Mean Platelet Vol. 10.3 fl (6.2-12.0); Monocyte# 0.06 X10^3/uL; Monocyte% 0.9 % (0-10); NRBC Flagged by Analyzer 0 % (0-5); Neutrophil # 5.62 X10^3/uL (2.7-7.7); Neutrophil % 84.7 % (47-70); Platelet Count 262 K/mm3 (150-450); RBC Distribution Width CV 14.1 % (11.6-14.6); Red Blood Count 4.06 M/mm3 (4.2-5.4); White Blood Count 6.6 K/mm3 (4.4-11.0)
--- NOTE | 2023-12-05 15:53 | RAD_ITS ---
STUDY: X-RAY CHEST REASON FOR EXAM: Female, 73 years old. chest pain TECHNIQUE: AP portable COMPARISON: March 23, 2023. FINDINGS: Minor chronic interstitial thickening in the lower lobes.. There is no demonstrated pleural abnormality. Normal size heart. Normal mediastinum and maira. Normal visualized pulmonary arteries. Normal visualized aortic arch and descending thoracic aorta. Normal visualized thoracic spine. Normal visualized ribs, clavicles, and shoulders. There is no demonstrated abnormality of the visualized soft tissue structures of the upper abdomen. No significant change since prior exam RAD/Chest 1 View (Portable) IMPRESSION: Minor chronic interstitial thickening in the lung bases. No acute disease Electronically Signed: Brady Reyes MD at 16:26 EDT ,
[2023-12-05 15:59] LABS: Anion Gap 6 (5-15); BUN 19 mg/dL (7-18); Calcium,Total 8.9 mg/dL (8.5-10.1); Chloride 109 mmol/L (98-107); Creatinine, Serum 0.86 mg/dL (0.55-1.02); EST Glomerular Filtration Rate 68 mL/min (>60); Est Glom Filt Rate - Afr Amer 83 mL/min (>60); Estimated Creatinine Clearance 70.69 ml/min; Glucose 144 mg/dL (74-106); Potassium 3.7 mmol/L (3.5-5.1); Sodium Level 138 mmol/L (136-145); Troponin-I HS 33 pg/mL (3.0-54.0)
[2023-12-05 16:37] VITALS: BP 124/86; PULSE 81; RESP 13; O2SAT 98
[2023-12-05 18:00] VITALS: BP 139/79; PULSE 68; RESP 16; O2SAT 98
[2023-12-05 20:00] VITALS: BP 126/87; PULSE 87; RESP 18; O2SAT 97
[2023-12-05 20:19] VITALS: BP 126/87; PULSE 87; RESP 18; TEMP 36.6; O2SAT 97
== END 2023-12-05 20:24 | disposition home or self-care (01) ==
PROVIDERS: Emergency Provider Emergency Medicine; PCP Student in an Organized Health Care Education/Training Program; Visit Provider Emergency Medicine
DX: R79.89 Other specified abnormal findings of blood chemistry (principal); I12.9 Hypertensive chronic kidney disease with stage 1 through stage 4 chronic kidney disease, or unspecified chronic kidney disease; N18.9 Chronic kidney disease, unspecified; Z87.891 Personal history of nicotine dependence; Z79.899 Other long term (current) drug therapy
CPT/HCPCS: 71045; 71275; 80048; 84484; 85025; 93005; 99284; Q9967; A4216

== ENCOUNTER 2024-06-11 16:39 | Observation (INO) | payer MEDICARE, OTHER, SELFPAY ==
[2024-06-11 16:41] VITALS: BP 159/103; PULSE 97; RESP 22; TEMP 36.6; O2SAT 97; BMI 42.2
--- NOTE | 2024-06-11 17:20 | EDS_ITS ---
HPI History of Present Illness Chief Complaint: Chest Pain Detail of Chief Complaint: Left-sided chest pain Informant: patient Onset/Context/Timing Onset: Today and Yesterday Activity at onset: - (Unknown since she awoke with pain both days) Timing: Continuous (Since awakening this morning) and Intermittent (Yesterday) Quality: Positive for Aching Location: Left Parasternal Current Severity: Mild Maximum Severity: Moderate Worsened By: Movement of Arm and Movement of Torso; Not Worsened By Exertion, Eating, Palpation, Breathing or Coughing Relieved By: Nothing Associated Symptoms: Negative for Nausea, Vomiting, Diaphoresis, Dyspnea, Cough, Fever, Lightheadedness, Acid Reflux or Palpitations Narrative Narrative: Patient is a 74-year-old woman with history of hypertension, former smoker, COPD, obstructive sleep apnea, overlap of asthma and COPD as well as ulcerative colitis who presents with left-sided chest pain that she noted upon awakening yesterday June 10. Patient states the pain yesterday was intermittent. There was an area she could push on that caused her to have an increase in pain. She also reported certain movements increase her pain. When she went to sleep she did not have the pain. When she awoke with this morning she had the discomfort again. There is a musculoskeletal component. There is no exertional component. There is no change with breathing or change in position. She has chronic swelling of her legs. She denies history of VTE. She has no risk factors for VTE. Patient denies fever, chills night sweats. Patient denies headache, visual, ocular auditory symptoms. Patient denies abdominal pain. Patient denies intolerance to greasy or fried foods. Patient denies black or maroon-colored stool. Prior Similar Symptoms: No CVD Risk Factors: Positive for Hypertension and Smoking; Negative for Diabetes, Hypercholesterolemia or Family History 1' </=55 PE Risk Factors: Negative for Recent Travel/Surgery, Recent Immobilization, Prior DVT or PE, Cancer or OCP + Smoking + >/=35 TAD Risk Factors: Positive for Hypertension; Negative for Marfan's Syndrome or Family History [facility] Medical History (Updated 06/11/24 @ 19:[address] Cam Mariscal MD) Anxiety Depression Osteoporosis Kidney disease Hepatitis Former smoker On home oxygen therapy Asthma Chest pain Ulcerative colitis HTN (hypertension) History of hypertension Home Medications ?Medication ?Instructions ?Recorded ?Last Taken ?Type losartan 50 mg-hydrochlorothiazide 1 tab PO DAILY 12/15/21 Unknown History 12.5 mg tablet losartan 50 mg tablet 50 mg PO HS 01/02/22 Unknown History Allergy/AdvReac Type Severity Reaction Status Date / Time No Known Allergies Allergy Verified 06/11/24 16:42 Family History Father Colon cancer Aunt Colon cancer Breast cancer Surgical History S/P ORIF (open reduction internal fixation) fracture Hx of shoulder surgery Hx of lumbar discectomy History of mandibular surgery History of tonsillectomy History of back surgery Social History Smoking Status: Former smoker Tobacco: How many years used: 40 ROS ROS ED Constitutional Constitutional ED: Denies chills, fever(s), subjective or sweats Eyes Eyes: Reports none ENT ENT ED: Denies ear pain, rhinorrhea or sore throat Cardiovascular Cardiovascular: Reports as per HPI and orthopnea; Denies paroxysmal nocturnal dyspnea Respiratory/Chest Respiratory/Chest: Reports orthopnea and other Details: Patient has chronic two- pillow orthopnea. ; Denies cough, dyspnea, dyspnea on exertion or paroxysmal nocturnal dyspnea Gastrointestinal Gastrointestinal: Denies abdominal pain, melena, nausea or vomiting Genitourinary Genitourinary ED: Denies dysuria, hematuria or urinary frequency Musculoskeletal Musculoskeletal: Denies arthralgias, back pain or myalgias Integumentary Denies rash Neurologic Neurologic: Denies headache(s), paresthesias or weakness Hematologic/Lymphatic Hematologic/Lymphatic: Denies easy bleeding or easy bruising EXAM Physical Exam Const Vital Signs: 06/11/24 16:41 06/11/24 17:00 06/11/24 17:41 Temperature 97.9 F Temperature Source Oral Pulse Rate 97 83 Respiratory Rate 22 H 20 H Respiratory Effort Normal Non-Labored Blood Pressure 159/103 H 138/93 H Blood Pressure Mean 121 108 Pulse Ox 97 95 Oxygen Delivery Method Room Air 06/11/24 17:58 06/11/24 18:00 06/11/24 19:00 Temperature 98.5 F Temperature Source Pulse Rate 84 77 83 Respiratory Rate 18 14 22 H Respiratory Effort Blood Pressure 138/93 H 156/93 H 157/117 H Blood Pressure Mean 108 112 131 Pulse Ox 97 95 Oxygen Delivery Method Positive well nourished and well developed Constitutional Narrative: BMI is 42.2. General Appearance ED: well developed and NAD; Negative for pallor HEENT Reports moist mucous membranes normocephalic and atraumatic Eyes PERRL and EOMs intact bilaterally General Eye ED: Negative for pale conjunctiva or scleral icterus Neck no lymphadenopathy, supple and no JVD Chest Wall inspection of chest normal and palpation of chest normal Chest Narrative: There is pain palpation left side of the chest. Resp normal respiratory effort and clear to auscultation bilaterally Effort and Inspection: pain with movement; Negative for respiratory distress Cardio regular rate, regular rhythm, S1 normal heart sound, S2 normal heart sound and no murmurs GI normal to inspection, nondistended, normoactive bowel sounds, soft to palpation, non-tender, non-distended and no masses; Negative for hepatosplenomegaly Back/Spine no CVA tenderness Extremity Extremity Narrative: There is no other abnormality other than edema. General Extremety ED: Yes edema General Extremity: edema Neuro oriented x3, CN's II-XII intact bilaterally and no sensory deficits noted Sensorium / Orientation: awake and alert Psych mental status grossly normal Skin no rashes or lesions noted General Skin Exam: Negative for jaundice or pallor Heart Score History: Slightly/Non-Suspicious ECG: Normal Age: >/= 65 years Risk Factors: 1 or 2 Risk Factors Troponin: >1 - <3 Normal Limit Score: 4 MDM MDM MDM Narrative Medical decision making narrative: Differential diagnosis is cardiac versus noncardiac. Suspect this is noncardiac. Since she does have risk factors we will obtain troponin level since EKG was obtained per nurse protocol. History is not consistent with PE. History & Record Review Additional record(s) reviewed:: Prior outpatient record (Office visit for obstructive sleep apnea Angie Rai June 2022.), Prior ED visit (November 2023 seen for atypical chest pain and discharged home. March 2023 for colitis and discharged home. COPD exacerbation February 2023.) and Prior labs Lab Data Attestation: I reviewed the patient's lab results. Lab results narrative: Since troponin is 104 and prior troponins are normal will obtain additional blood work and contact hospitalist once her tests are back for admission to evaluate her chest pain with elevated troponin. Labs: Laboratory Results - last 24 hr 06/11/24 06/11/24 06/11/24 16:59 17:45 18:18 WBC 7.2 RBC 4.21 Hgb 12.0 Hct 37.2 MCV 88.4 MCH 28.5 MCHC 32.3 RDW Std Deviation 43.8 RDW Coeff of Javi 13.4 Plt Count 256 MPV 10.3 Immature Gran % (Auto) 0.300 Neut % (Auto) 50.5 Lymph % (Auto) 38.7 [place] % (Auto) 7.4 Eos % (Auto) 2.7 Baso % (Auto) 0.4 Absolute Neuts (auto) 3.6 Absolute Lymphs (auto) 2.77 Nucleated RBC % 0 Sodium 140 Potassium 3.4 L Chloride 106 Carbon Dioxide 29.0 Anion Gap 4 L BUN 17 Creatinine 0.89 Estim Creat Clear Calc 67.81 Est GFR (MDRD) Af Amer 79 Est GFR (MDRD) Non-Af 66 BUN/Creatinine Ratio 19.0 Glucose 101 Calcium 9.2 Troponin I High Sens 104 H 95 H Radiography Chest X-Ray - ED: 1 View, Read by ED Physician ([id number].), Unchanged, Normal, Heart, Mediastinum, Bony Structures, No Acute Disease and Chronic Changes Diagnostic Testing: Clinical Impression(s) from Imaging Studies Chest X-Ray 06/11/24 17:50 IMPRESSION: No acute findings in the chest. Electronically Signed: Muriel De Dios MD at 18:08 EST Reading Location ID and State: [address] [place] [address] Tel , Service support , EKG Initial EKG: Attestation: I personally reviewed and interpreted this EKG as follows: Interpretation: Sinus Rhythm (Rate is 93. There is no acute ischemic changes noted. OR interval is 148 ms. Cures duration 72 ms. QT duration 164 ms. Malott is normal.) Differential Diagnosis Chest pain/SOB: pulmonary embolism Reason(s) PE less likely: Positive for Well's <3 and not hypoxic, pneumothorax Reason(s) pneumothorax less likely: Positive for bilateral breath sounds, pneumonia Reason(s) pneumonia less likely: Positive for no noted fever and symptoms not consistent with acute infection and aortic dissection Reason(s) Aortic dissection less likely:: Positive for normal vascular exam, no history of HTN, normal neurological exam, no significant risk factors for dissection, pain not sudden onset, no ripping/tearing pain, no pain to back and blood pressure appropriate in ED Management Discussion w/another healthcare provider: Hospitalist Treatment and Re-Evaluation :: Hospitalist was paged. They are presently in a meeting. Hospitalist was told that this is not emergent and that can talk to them after their meeting. They did request a second troponin. This was ordered. Discharge Plan Triage Chief Complaint: Chest Pain ED Provider: Cam Mariscal Dx/Rx/DC Orders Clinical Impression: Atypical chest pain, Smoking greater than 20 pack years, NEVA (obstructive sleep apnea), HTN (hypertension), Elevated troponin I level Prescriptions: No Action losartan-hydrochlorothiazide 50-12.5 mg tablet 1 tab PO DAILY losartan 50 mg tablet 50 mg PO HS Primary Care Provider: Gray Quintana Referrals: Gray Quintana DO [Primary Care Provider] - Print Language: Gabonese Disposition Disposition: Acute Care Hospital [facility]
[2024-06-11 17:37] LABS: Troponin-I HS 104 pg/mL (3.0-54.0)
[2024-06-11 17:41] VITALS: BP 138/93; PULSE 83; RESP 20; O2SAT 95
--- NOTE | 2024-06-11 17:50 | RAD_ITS ---
EXAM: XR CHEST, 1 VIEW CLINICAL INDICATION: Chest pain, elevated troponin TECHNIQUE: Frontal view of the chest. COMPARISON: December 05, 2023. FINDINGS: LUNGS AND PLEURAL SPACES: Unremarkable. No consolidation or edema. No pneumothorax. No effusion. HEART: Unremarkable. Cardiac silhouette not enlarged. MEDIASTINUM: Central airways and mediastinal contour are unremarkable. BONES/JOINTS: Part of an intramedullary shital is again noted in the left proximal humerus. No acute fracture. SOFT TISSUES: Unremarkable. RAD/Chest 1 View (Portable) IMPRESSION: No acute findings in the chest. Electronically Signed: Muriel De Dios MD at 18:08 EST ,
[2024-06-11 17:57] LABS: Absolute Lymphocyte Count 2.77 X10^3/uL (0.83-4.51); Absolute Neutrophil Count 3.6 X10^3/uL (2.0-7.7); Basophil# 0.03 X10^3/uL; Basophil% 0.4 % (0-1); Eosinophil# 0.19 X10^3/uL; Eosinophils% 2.7 % (0-5); Hematocrit 37.2 % (37-47); Lymphocyte # 2.77 X10^3/ul (0.83-4.51); Lymphocyte % 38.7 % (19-41); Mean Corp Hgb Conc 32.3 g/dL (32-36); Mean Corpuscular Hgb 28.5 pg (27.0-32.0); Mean Corpuscular Volume 88.4 fL (81-99); Mean Platelet Vol. 10.3 fl (6.2-12.0); Monocyte# 0.53 X10^3/uL; Monocyte% 7.4 % (0-10); NRBC Flagged by Analyzer 0 % (0-5); Neutrophil # 3.62 X10^3/uL (2.7-7.7); Neutrophil % 50.5 % (47-70); Platelet Count 256 K/mm3 (150-450); RBC Distribution Width CV 13.4 % (11.6-14.6); RBC Distribution Width SD 43.8 fl (35.1-43.9); Red Blood Count 4.21 M/mm3 (4.2-5.4); White Blood Count 7.2 K/mm3 (4.4-11.0)
[2024-06-11 17:58] VITALS: BP 138/93; PULSE 84; RESP 18; TEMP 36.9; O2SAT 97
[2024-06-11 18:00] VITALS: BP 156/93; PULSE 77; RESP 14
--- NOTE | 2024-06-11 18:46 | PCM.HP.STD ---
[facility] - General General Date of Admission: 06/11/24 Date of Service: 06/11/24 Chief Complaint: Chest pain HPI Narrative LORIE MOORE, is a 74 F who presented to the emergency department with left-sided chest pain that was aching in quality. She reported it had been present since she woke this morning and had been present yesterday as well. Symptoms were intermittent today prior to admission but more consistent and continuous on the day of presentation. She denied any associated nausea or vomiting, diaphoresis, or shortness of breath. She has a history of tobacco abuse, untreated NEVA, and hypertension and has morbid obesity. She has never had previous cardiac issues. She denies ever having any other cardiac workup. She is compliant with her home antihypertensives but she states she feels that her legs are swelling some as well. She is chest pain-free at the time of my evaluation. She has had no indigestion type symptoms. She does report that she has tried to be treated for sleep apnea both with CPAP and wear nocturnal oxygen however she is not tolerating either very well. She has follow-up with her deputy director of nursing to discuss this further. Vital signs on presentation showed temperature 97.9, heart rate 97, respiratory rate 22, blood pressure was 159/103 with a repeat at 138/93, and pulse ox was 97% on room air. His CBC was unremarkable. Chemistry panel showed mild hypokalemia potassium of 3.4 but was otherwise unremarkable. Initial troponin emergency department was 104 with a repeat of 95. EKG was unremarkable and showed normal intervals without any ST-T wave changes consistent with acute ischemia. Chest x-ray is unremarkable. D-dimer is pending. [facility] Medical History Anxiety Depression Osteoporosis Kidney disease Hepatitis Former smoker On home oxygen therapy Asthma Chest pain Ulcerative colitis HTN (hypertension) History of hypertension Home Medications ?Medication ?Instructions ?Recorded ?Last Taken ?Type losartan 50 mg-hydrochlorothiazide 1 tab PO DAILY 12/15/21 Unknown History 12.5 mg tablet losartan 50 mg tablet 50 mg PO HS 01/02/22 Unknown History Allergy/AdvReac Type Severity Reaction Status Date / Time No Known Allergies Allergy Verified 06/11/24 16:42 Family History Father Colon cancer Aunt Colon cancer Breast cancer Surgical History S/P ORIF (open reduction internal fixation) fracture Hx of shoulder surgery Hx of lumbar discectomy History of mandibular surgery History of tonsillectomy History of back surgery Social History (Updated 06/11/24 @ 21:[address] Rosita Alonzo DO) Smoking Status: Former smoker Tobacco: How many years used: 40 alcohol intake: never substance use type: does not use ROS Constitutional Constitutional: Denies anorexia, change in weight, chills, fatigue, fever(s), malaise, night sweats, weakness or other Eyes Eyes: Denies blurry vision, change in eye color, change in vision, discharge from eye(s), double vision, erythema, eye pain, loss of vision or other ENT HEENT: Denies abnormal hearing, dysphagia, ear pain, epistaxis, headache(s), hearing loss, nasal congestion, nasal discharge, post nasal drip, sinus pressure, sore throat or other Cardiovascular Cardiovascular: Reports chest pain, dyspnea on exertion and edema; Denies claudication, lightheadedness, orthopnea, palpitations, paroxysmal nocturnal dyspnea, rapid heart rate, syncope or other Respiratory/Chest Respiratory/Chest: Reports shortness of breath with exertion; Denies cough, dyspnea, excessive phlegm production, hemoptysis, productive cough, shortness of breath at rest, wheezing or other Gastrointestinal Gastrointestinal: Denies abdominal pain, coffee ground emesis, constipation, diarrhea, dyspepsia, hematemesis, hematochezia, loose stools, melena, nausea, vomiting or other Genitourinary Genitourinary: Denies burning urination, difficulty urinating, dysuria, hematuria, nocturia, urinary frequency, urinary hesitancy, urinary incontinence, urinary urgency or other Musculoskeletal Musculoskeletal: Denies arthralgias, back pain, joint pain, joint stiffness, joint swelling, myalgias, neck pain or other Neurologic Neurologic: Denies abnormal gait, abnormal speech, confusion, disequilibrium, dizziness, focal weakness, headache(s), numbness, paresthesias, seizure-like activity, seizures, syncope, tingling, tremor(s) or other Psychiatric Psychiatric: Denies anxiety, depression, homicidal ideation, suicidal ideation or other Endocrine Endocrinology: Denies change in body appearance, cold intolerance, excessive sweating, heat intolerance, polydipsia, polyuria or other Hematologic/Lymphatic Hematologic/Lymphatic: Denies anemia, easy bleeding, easy bruising, lymphadenopathy or other Allergic/Immunologic Allergic/Immunologic: Denies rhinitis, hives, eczemia, asthma or other Vital Signs Vital Signs Vital Signs: 06/11/24 16:41 06/11/24 17:00 06/11/24 17:41 Temperature 97.9 F Temperature Source Oral Pulse Rate 97 83 Respiratory Rate 22 H 20 H Respiratory Effort Normal Non-Labored Blood Pressure 159/103 H 138/93 H Blood Pressure Mean 121 108 Pulse Ox 97 95 Oxygen Delivery Method Room Air 06/11/24 17:58 06/11/24 18:00 Temperature 98.5 F Temperature Source Pulse Rate 84 77 Respiratory Rate 18 14 Respiratory Effort Blood Pressure 138/93 H 156/93 H Blood Pressure Mean 108 112 Pulse Ox 97 Oxygen Delivery Method Weight Weight: 111.584 kg Body Mass Index (BMI) 42.2 Physical Exam Const alert, oriented x3, no apparent distress and well nourished; Negative for average body habitus or healthy appearing Constitutional Narrative: Morbidly obese, older, white female, sitting up in bed, family at bedside, patient appears comfortable, nontoxic General Appearance: cooperative HEENT normocephalic, head/scalp atraumatic and hearing grossly normal bilaterally HEENT Narrative: Mallampati 3-4, no thrush Eyes conjunctivae normal Eyes Narrative: No scleral icterus Neck supple Neck Narrative: Short thick neck, trachea midline Resp normal respiratory effort, no retractions, no use of accessory muscles and clear to auscultation bilaterally Auscultation: Negative for rales, rhonchi or wheezes Cardio regular rate, regular rhythm, S1 normal heart sound, S2 normal heart sound, no murmurs, no rub, no gallops and no clicks GI normal to inspection, nondistended, normoactive bowel sounds, soft to palpation and non-tender Extremity Extremity Narrative: Bilateral lower extremity +1 pitting edema, legs are tender with no signs of infection, no clubbing or cyanosis Neuro oriented x3 and moves all extremities Speech: speech normal Psych affect normal Psych Narrative: Very pleasant, eye contact is good and patient interacts appropriately Results Lab / Micro Data 06/11/24 17:45 06/11/24 18:18 Labs: Laboratory Results - last 24 hr 06/11/24 16:59: Troponin I High Sens 104 H 06/11/24 17:45: WBC 7.2, RBC 4.21, Hgb 12.0, Hct 37.2, MCV 88.4, MCH 28.5, MCHC 32.3, RDW Std Deviation 43.8, RDW Coeff of Javi 13.4, Plt Count 256, MPV 10.3, Immature Gran % (Auto) 0.300, Neut % (Auto) 50.5, Lymph % (Auto) 38.7, [place] % (Auto) 7.4, Eos % (Auto) 2.7, Baso % (Auto) 0.4, Absolute Neuts (auto) 3.6, Absolute Lymphs (auto) 2.77, Nucleated RBC % 0 Imaging Radiology Impression Chest X-Ray 06/11/24 17:50 IMPRESSION: No acute findings in the chest. Electronically Signed: Muriel De Dios MD at 18:08 EST , Assessment & Plan Assessment/Plan (1) Elevated troponin I level: (2) Atypical chest pain: (3) Lower extremity edema: PLAN: Plan Atypical chest pain with troponin elevation -Chest pain history is not consistent with acute cardiac event however troponin was slightly elevated on presentation. -Delta troponin was a decrease so I think at this point we can go ahead and perform a stress test -Will continue to cycle cardiac enzymes -Troponin elevation may be related to blood pressure elevation on presentation so we will try to more adequately treat this -Her goal blood pressure should be 130/80 or less -Start aspirin 81 mg daily -Continue home antihypertensives and add Coreg 6.25 mg p.o. daily -Add statin -Check lipids -A.m. stress test Lower extremity edema -May be related to right-sided heart failure with untreated sleep apnea -Will give 1 dose of IV Lasix 40 mg today- -D-dimer pending and if positive will order lower extremity Dopplers if CTA is negative -Check echocardiogram as I do suspect she probably has some abnormalities on her echo structurally NEVA -Patient has untreated -Has not tolerated CPAP or supplemental oxygen in the past -Continued outpatient follow-up with pulmonary medicine Inflammatory bowel disease -patient has history of Crohn's disease -Follows in [place] [facility] she has been on several bouts of steroids recently and has follow-up pending -No symptoms at this time and hemoglobin stable Essential hypertension -Continue home losartan HCTZ -Add Coreg 6.125 daily -Goal blood pressure should be 130/80 and under Morbid obesity -BMI 41.4 -Recommend weight loss -Complicates treatment, prognosis, outcomes DVT prophylaxis -Lovenox SQ twice daily 40 mg CODE STATUS -Full code as verified at the time of admission Charges/Coding Visit Charges Inpatient E&M: 71054 Init Hosp L2
[2024-06-11 19:00] VITALS: BP 157/117; PULSE 83; RESP 22; O2SAT 95
[2024-06-11 19:06] LABS: Anion Gap 4 (5-15); BUN 17 mg/dL (7-18); Calcium,Total 9.2 mg/dL (8.5-10.1); Chloride 106 mmol/L (98-107); Creatinine, Serum 0.89 mg/dL (0.55-1.02); EST Glomerular Filtration Rate 66 mL/min (>60); Est Glom Filt Rate - Afr Amer 79 mL/min (>60); Estimated Creatinine Clearance 67.81 ml/min; Glucose 101 mg/dL (74-106); Potassium 3.4 mmol/L (3.5-5.1); Sodium Level 140 mmol/L (136-145); Troponin-I HS 95 pg/mL (3.0-54.0)
--- NOTE | 2024-06-11 20:02 | ECHOCS_ITS ---
Reason For Study: Edema Procedure This was a 2D Doppler, Color Flow transthoracic echocardiogram. The study was technically difficult. Contrast injection was performed. Exam performed in department. Left Ventricle Normal LV size. Mild concentric left ventricular hypertrophy. The left ventricular ejection fraction is 70 %. Stage 1 diastolic dysfunction. Right Ventricle Normal right ventricle. Atria The left and right atria are normal. Mitral Valve Trivial mitral valve insufficiency. Tricuspid Valve Trivial tricuspid valve insufficiency. Unable to estimate RV systolic pressure due to insufficient tricuspid regurgitant envelope. Aortic Valve Trisinus/trileaflet aortic valve. Pulmonic Valve The pulmonic valve is not well visualized. Great Vessels Normal sized aortic root. Pericardium/Pleural No pericardial effusion. Medication Diluted definity 2.5ml given slow IV push to enhance endocardial definition. MMode/2D Measurements & Calculations LVIDd: 4.9 cm IVSd: 1.2 cm Ao root diam: 3.6 cm LVIDs: 3.7 cm LVPWd: 1.2 cm FS: 23.9 % LAV(MOD-sp4): 33.5 ml LVAd ap4: 22.9 cm2 SV(MOD-sp4): 39.9 ml LVLd ap4: 7.1 cm SI(MOD-sp4): 18.9 ml/m2 EDV(MOD-sp4): 60.0 ml EDV(sp4-el): 62.6 ml LVAs ap4: 11.6 cm2 LVLs ap4: 5.7 cm ESV(MOD-sp4): 20.0 ml ESV(sp4-el): 20.0 ml EF(MOD-sp4): 66.6 % EF(sp4-el): 68.0 % SV(sp4-el): 42.6 ml LA A4 area: 14.6 cm2 LA dimension(2D): 3.6 cm RA A4 area: 13.3 cm2 TAPSE: 2.0 cm Time Measurements MV dec time: 0.21 sec Doppler Measurements & Calculations MV E max samuel: 65.7 cm/sec Lat Peak E' Samuel: 8.9 cm/sec Med Peak E' Samuel: 6.0 cm/sec MV A max samuel: 89.1 cm/sec E/E' lat: 7.4 E/E' med: 11.0 MV E/A: 0.74 MV V2 max: 111.2 cm/sec MV P1/2t max samuel: 69.4 cm/sec Ao V2 max: 159.4 cm/sec MV max P.9 mmHg MV P1/2t: 60.5 msec Ao max P.2 mmHg MV V2 mean: 55.0 cm/sec MV dec slope: 336.1 cm/sec2 Ao V2 mean: 106.5 cm/sec MV mean P.5 mmHg MVA(P1/2t): 3.6 cm2 Ao mean P.3 mmHg MV V2 VTI: 23.4 cm Ao V2 VTI: 30.4 cm AV (velocity ratio): 0.71 LV V1 max: 122.1 cm/sec PA V2 max: 115.3 cm/sec LV V1 max P.0 mmHg PA V2 mean: 82.3 cm/sec LV V1 mean P.7 mmHg LV V1 mean: 76.4 cm/sec LV V1 VTI: 21.7 cm ECHO/Echo Complete W/ Contrast Interpretation Summary The study was technically difficult. Mild concentric left ventricular hypertrophy. The left ventricular ejection fraction is 70 %. Stage 1 diastolic dysfunction. Ordering Physician: Rosita Alonzo Performed By: Kevin Abrams RCS
[2024-06-11 20:11] VITALS: BMI 41.4
[2024-06-11 20:31] VITALS: BP 166/103; PULSE 84; RESP 20; TEMP 36.4; O2SAT 96
[2024-06-11] MEDS: Furosemide 40 MG/4 ML Vial IV (21:54)
[2024-06-11] MEDS: Enoxaparin 40 MG/0.4 ML Syringe SC (21:54)
[2024-06-11] MEDS: Potassium Chloride Oral Tablet 20 MEQ 40 MEQ PO (21:54)
[2024-06-11] MEDS: Carvedilol 6.25 MG Tablet PO (21:55)
[2024-06-11 22:38] LABS: Troponin-I HS 98 pg/mL (3.0-54.0)
[2024-06-11 22:39] LABS: D-Dimer Quantitative (DVT/PE) 2.83 FEU/ug/m (0.27-0.49)
[2024-06-12 03:39] VITALS: BP 125/66; PULSE 91; RESP 20; TEMP 36.3; O2SAT 95
[2024-06-12 04:19] LABS: Absolute Lymphocyte Count 2.86 X10^3/uL (0.83-4.51); Absolute Neutrophil Count 3.6 X10^3/uL (2.0-7.7); Basophil# 0.03 X10^3/uL; Basophil% 0.4 % (0-1); Eosinophil# 0.19 X10^3/uL; Eosinophils% 2.6 % (0-5); Hematocrit 36.9 % (37-47); Hemoglobin 11.9 g/dL (12.0-15.0); Lymphocyte # 2.86 X10^3/ul (0.83-4.51); Lymphocyte % 39.1 % (19-41); Mean Corp Hgb Conc 32.2 g/dL (32-36); Mean Corpuscular Hgb 28.1 pg (27.0-32.0); Mean Corpuscular Volume 87.2 fL (81-99); Mean Platelet Vol. 10.4 fl (6.2-12.0); Monocyte# 0.64 X10^3/uL; Monocyte% 8.7 % (0-10); NRBC Flagged by Analyzer 0 % (0-5); Neutrophil # 3.58 X10^3/uL (2.7-7.7); Neutrophil % 48.9 % (47-70); Platelet Count 249 K/mm3 (150-450); RBC Distribution Width CV 13.4 % (11.6-14.6); RBC Distribution Width SD 42.5 fl (35.1-43.9); Red Blood Count 4.23 M/mm3 (4.2-5.4); White Blood Count 7.3 K/mm3 (4.4-11.0)
--- NOTE | 2024-06-12 04:23 | CT_ITS ---
STUDY: CTA CHEST REASON FOR EXAM: Female, 74 years old. Elevated d-dimer of 2.83 present on admission. RADIATION DOSAGE (If Supplied By Facility): CTDIvol = ( 19.71 ) mGy, DLP = ( 574.08 ) mGycm TECHNIQUE: The examination was performed with the intravenous administration of IV 100mL Isovue-370. Post-processing of the angiographic images was performed, with multiplanar reformation and 3D reconstruction. The protocol utilizes one or more of the following dose reduction techniques: automated exposure control, adjustment of mA and/or kV according to patient size,and/or use of iterative reconstruction technique. COMPARISON: Prior study dated: 12/05/2023 FINDINGS: LUNGS: No consolidation. There are numerous small nodules throughout both lungs, most pronounced in the lower lobes largest in the right lower lobe 4 mm, largest in the left lower lobe 4 mm. These are similar to prior study and not significantly changed. PLEURA: No pleural effusion. No pneumothorax. PULMONARY VESSELS: No pulmonary emboli identified. MEDIASTINUM: Unremarkable. HEART: Not enlarged. AORTA/GREAT VESSELS: Thoracic aorta is normal caliber. No aneurysm or dissection. UPPER ABDOMEN: Gallstone in the gallbladder. BONES/SOFT TISSUES: No acute findings. OTHER: None. CT/CTA Chest W/WO Contrast IMPRESSION: 1. No evidence of pulmonary emboli. 2. Multiple small pulmonary nodules bilaterally largest 4 mm similar to previous study. Follow-up recommended according to Fleischner Society guidelines: If low risk patient, no follow-up needed; if high-risk patient, i.e. smoking or other risk factors: CT at 6 months. 3. Cholelithiasis. *Fleischner Society Recommendations (Radiology 2017, 284:228-243.) (Follow-up and management of multiple nodules smaller than 8 mm detected incidentally at non-screening CT. Newly detected indeterminate nodule in persons 35 years of age or older.) Low risk patient: Minimal or absent history of smoking and of other known risk factors. < 6 mm: No followup needed 6-8mm: Initial Follow-up CT at 3-6 months, then consider CT at 18-24 months >8mm: CT at 3-6 months, then consider CT at 18-24 months High risk patient: History of smoking or of other known risk factors. < 6 mm: Optional CT at 12 months. 6-8mm: CT at 3-6 months, then CT at 18-24 months. >8mm: CT at 3-6 months, then CT at 18-24 months Electronically Signed: Joann Wise MD at 5:59 EST ,
--- NOTE | 2024-06-12 04:23 | VDLE_ITS ---
Reason For Study: Elevated D Dimer RIGHT LEFT GSV is normal. GSV is normal. CFV is compressible, spontaneous, phasic, CFV is compressible, spontaneous, phasic, competent and demonstrates normal competent, and demonstrates normal augmentation. augmentation. FV is compressible, spontaneous, phasic, FV is compressible, spontaneous, phasic, competent and demonstrates normal competent and demonstrates normal augmentation. augmentation. POP V is compressible, spontaneous, phasic, POP V is compressible, spontaneous, phasic, competent and demonstrates normal competent and demonstrates normal augmentation. augmentation. T/P Trunk is compressible. T/P Trunk is compressible. PTV is compressible. PTV is compressible. RT PerV is compressible. LT PerV is compressible. Acute deep vein thrombosis is noted in the Nonvascularized anechoic area noted in Lt Gastrocnemius V. It is dilated and pop fossa measuring approximately 5.09cm x NONCOMPRESSIBLE. 1.96cm. Procedure This is a venous duplex using B-mode, color flow and spectral Doppler. Exam performed in department. The exam was diagnostic. 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 VL/Venous Duplex US - Zeb Extrem Interpretation Summary Acute deep vein thrombosis is noted in the right gastrocnemius vein. Deep veins of the left lower extremity are patent and compressible segmentally. There is no evidence of left lower extremity deep vein thrombosis. The bilateral great saphenous vei ns appear patent and compressible segmentally. Ordering Physician: Amador Earl Performed By: Jurgen Rojas, RVT
[2024-06-12 04:45] LABS: AST(SGOT) 14 U/L (15-37); Alanine Aminotransfer ALT/SGPT 22 U/L (13-56); Albumin, Serum 3.2 g/dL (3.2-5.0); Alkaline Phosphatase 77 U/L (45-117); Anion Gap 5 (5-15); BUN 17 mg/dL (7-18); BUN/Creat Ratio 17.5 RATIO (10-20); Chloride 107 mmol/L (98-107); Cholesterol 178 mg/dL (200); Creatinine, Serum 0.97 mg/dL (0.55-1.02); EST Glomerular Filtration Rate 60 mL/min (>60); Est Glom Filt Rate - Afr Amer 72 mL/min (>60); Estimated Creatinine Clearance 61.53 ml/min; Globulin 3.3 g/dL (2.2-4.2); Glucose 125 mg/dL (74-106); High Density Lipoprotein 60 mg/dL; Magnesium 1.9 mg/dL (1.6-2.6); Phosphorus 4.1 mg/dL (2.5-4.9); Potassium 3.5 mmol/L (3.5-5.1); Protein, Total 6.5 g/dL (6.4-8.2); Sodium Level 139 mmol/L (136-145); Triglycerides 111 mg/dL; Very Low Density Lipoprotein 22 mg/dL (5-40)
[2024-06-12] MEDS: Losartan Potassium 50 MG Tablet PO (06:39)
[2024-06-12] MEDS: Aspirin E.C. 81 MG Tablet PO (06:39)
[2024-06-12 07:05] VITALS: O2SAT 99
[2024-06-12 08:29] VITALS: BP 133/81; PULSE 85; RESP 18; TEMP 36.6; O2SAT 96
--- NOTE | 2024-06-12 09:27 | PN.HOSP_ITS ---
Reason for Visit Reason for Visit: Diagnoses Other chest pain (06/11/24) Localized edema (06/11/24) Other specified abnormal findings of blood chemistry (06/11/24) Objective Data Objective Data Vital Signs: Vital Signs Temp Pulse Resp BP Pulse Ox O2 Del Method 97.8 F 85 18 133/81 H 96 Room Air 06/12/24 08:29 06/12/24 08:29 06/12/24 08:29 06/12/24 08:29 06/12/24 08:29 06/12/24 08:29 Oxygen Delivery Method Room Air Weight: 241 lb 4.8 oz Body Mass Index (BMI) 41.4 Intake & Output: Intake and Output for Last 24 Hours 06/10/24 06/11/24 06/12/24 23:59 23:59 23:59 Intake Total 240 / 240 Output Total 1000 / 1000 850 / 850 Balance -760 / -760 -850 / -850 Lab / Micro Data 06/12/24 03:52 06/12/24 03:52 Labs: Laboratory Results - last 24 hr 06/11/24 16:59: Troponin I High Sens 104 H 06/11/24 17:45: WBC 7.2, RBC 4.21, Hgb 12.0, Hct 37.2, MCV 88.4, MCH 28.5, MCHC 32.3, RDW Std Deviation 43.8, RDW Coeff of Javi 13.4, Plt Count 256, MPV 10.3, Immature Gran % (Auto) 0.300, Neut % (Auto) 50.5, Lymph % (Auto) 38.7, [place] % (Auto) 7.4, Eos % (Auto) 2.7, Baso % (Auto) 0.4, Absolute Neuts (auto) 3.6, Absolute Lymphs (auto) 2.77, Nucleated RBC % 0 06/11/24 18:18: Sodium 140, Potassium 3.4 L, Chloride 106, Carbon Dioxide 29.0, Anion Gap 4 L, BUN 17, Creatinine 0.89, Estim Creat Clear Calc 67.81, Est GFR (MDRD) Af Amer 79, Est GFR (MDRD) Non-Af 66, BUN/Creatinine Ratio 19.0, Glucose 101, Calcium 9.2, Troponin I High Sens 95 H 06/11/24 22:15: D-Dimer Quant (PE/DVT) 2.83 H*, Troponin I High Sens 98 H 06/12/24 03:52: WBC 7.3, RBC 4.23, Hgb 11.9 L, Hct 36.9 L, MCV 87.2, MCH 28.1, MCHC 32.2, RDW Std Deviation 42.5, RDW Coeff of Javi 13.4, Plt Count 249, MPV 10.4, Immature Gran % (Auto) 0.300, Neut % (Auto) 48.9, Lymph % (Auto) 39.1, [place] % (Auto) 8.7, Eos % (Auto) 2.6, Baso % (Auto) 0.4, Absolute Neuts (auto) 3.6, Absolute Lymphs (auto) 2.86, Nucleated RBC % 0, Sodium 139, Potassium 3.5, Chloride 107, Carbon Dioxide 27.0, Anion Gap 5, BUN 17, Creatinine 0.97, Estim Creat Clear Calc 61.53, Est GFR (MDRD) Af Amer 72, Est GFR (MDRD) Non-Af 60, BUN/Creatinine Ratio 17.5, Glucose 125 H, Calcium 9.0, Phosphorus 4.1, Magnesium 1.9, Total Bilirubin 0.40, AST 14 L, ALT 22, Alkaline Phosphatase 77, Total Protein 6.5, Albumin 3.2, Globulin 3.3, Albumin/Globulin Ratio 1.0, Triglycerides 111, Cholesterol 178, LDL Cholesterol 96, VLDL Cholesterol 22, HDL Cholesterol 60 Radiography Diagnostic Testing: Radiology Impression Chest X-Ray 06/11/24 17:50 IMPRESSION: No acute findings in the chest. Electronically Signed: Muriel De Dios MD at 18:08 EST , Chest CTA 06/12/24 04:23 IMPRESSION: 1. No evidence of pulmonary emboli. 2. Multiple small pulmonary nodules bilaterally largest 4 mm similar to previous study. Follow-up recommended according to Fleischner Society guidelines: If low risk patient, no follow-up needed; if high-risk patient, i.e. smoking or other risk factors: CT at 6 months. 3. Cholelithiasis. *Fleischner Society Recommendations (Radiology 2017, 284:228-243.) (Follow-up and management of multiple nodules smaller than 8 mm detected incidentally at non-screening CT. Newly detected indeterminate nodule in persons 35 years of age or older.) Low risk patient: Minimal or absent history of smoking and of other known risk factors. < 6 mm: No followup needed 6-8mm: Initial Follow-up CT at 3-6 months, then consider CT at 18-24 months >8mm: CT at 3-6 months, then consider CT at 18-24 months High risk patient: History of smoking or of other known risk factors. < 6 mm: Optional CT at 12 months. 6-8mm: CT at 3-6 months, then CT at 18-24 months. >8mm: CT at 3-6 months, then CT at 18-24 months Electronically Signed: Joann Wise MD at 5:59 EST Reading Location ID and State: [facility] / [place] Tel , Service support , Physical Exam Narrative Seen and examined Patient looks mild short of breath but states she does not feel it. She has obstructive sleep apnea but could not tolerate it therefore was given O2 at home. 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 Currently, she does not have chest pain pressure. 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 Physical exam General: Alert, Oriented x3, Cooperative. Morbidly obese BMI 41.4 kg square meter HEENT: Atraumatic, PERRLA, EOMI, Normocephalic Oral: Deep oropharyngeal discharge could not be visualized. Thick and white neck. Neck: Supple, No JVD, Negative Carotid Bruits Chest wall/Lungs: Air entry diminished in in all lung joyce. Bilateral fine wheezing in lung bases Cardiovascular: Regular rate, Regular Rhythm, Normal S1, Normal S2, No M/G/R Abdomen: Bowel Sounds Present, Soft, Non Tender, Non-Distended : No dysuria. No renal angle tenderness. No suprapubic tenderness. Extremities: 2+ bilateral below-knee pitting edema, Capillary Refill Less than 3 Seconds Skin: No rashes, No breakdown Musculoskeletal: No Tenderness to Palpation of Joints or Extremities Neurological: Cranial nerves II-XII grossly intact, DTR 2+/4. No acute focal neurological deficit. Psych/Mental Status: Normal Affect, Appropriate. Assessment & Plan Assessment/Plan (1) Elevated troponin I level: (2) Atypical chest pain: (3) Lower extremity edema: PLAN: Plan 74-year-old female was admitted with left-sided chest pain that is started 1 day before admission, intermittent reproducible, increased with certain movements/positional. No exertional shortness of breath. Denies history of DVT. No fever or chills 1. Atypical chest pain with mild troponin elevation, noncardiac possible due to elevated blood pressure: Indeterminate with flat troponin. Patient is being admitted in PCU. Mild shortness of breath probably due to obstructive sleep apnea/chronic COPD asthma overlap. Patient had nuclear stress test was negative for acute ischemia. Therefore, acute coronary syndrome ruled out. Echo shows EF 70% with mild concentric LVH stage I diastolic function suggestive of chronic HFpEF but does not look like an acute heart failure. Patient has bilateral lower extremity edema probably due to heart failure or uncontrolled blood pressure/hypertension. Lasix 40 mg IV daily Lasix 41 IV daily ordered. Laboratory Results 06/11/24 16:59: Troponin I High Sens 104 H 06/11/24 17:45: WBC 7.2, RBC 4.21, Hgb 12.0, Hct 37.2, MCV 88.4, MCH 28.5, MCHC 32.3, RDW Std Deviation 43.8, RDW Coeff of Javi 13.4, Plt Count 256, MPV 10.3, Immature Gran % (Auto) 0.300, Neut % (Auto) 50.5, Lymph % (Auto) 38.7, [place] % (Auto) 7.4, Eos % (Auto) 2.7, Baso % (Auto) 0.4, Absolute Neuts (auto) 3.6, Absolute Lymphs (auto) 2.77, Nucleated RBC % 0 06/11/24 18:18: Sodium 140, Potassium 3.4 L, Chloride 106, Carbon Dioxide 29.0, Anion Gap 4 L, BUN 17, Creatinine 0.89, Estim Creat Clear Calc 67.81, Est GFR (MDRD) Af Amer 79, Est GFR (MDRD) Non-Af 66, BUN/Creatinine Ratio 19.0, Glucose 101, Calcium 9.2, Troponin I High Sens 95 H 06/11/24 22:15: D-Dimer Quant (PE/DVT) 2.83 H*, Troponin I High Sens 98 H 06/12/24 03:52: WBC 7.3, RBC 4.23, Hgb 11.9 L, Hct 36.9 L, MCV 87.2, MCH 28.1, MCHC 32.2, RDW Std Deviation 42.5, RDW Coeff of Javi 13.4, Plt Count 249, MPV 10.4, Immature Gran % (Auto) 0.300, Neut % (Auto) 48.9, Lymph % (Auto) 39.1, [place] % (Auto) 8.7, Eos % (Auto) 2.6, Baso % (Auto) 0.4, Absolute Neuts (auto) 3.6, Absolute Lymphs (auto) 2.86, Nucleated RBC % 0, Sodium 139, Potassium 3.5, Chloride 107, Carbon Dioxide 27.0, Anion Gap 5, BUN 17, Creatinine 0.97, Estim Creat Clear Calc 61.53, Est GFR (MDRD) Af Amer 72, Est GFR (MDRD) Non-Af 60, BUN/Creatinine Ratio 17.5, Glucose 125 H, Calcium 9.0, Phosphorus 4.1, Magnesium 1.9, Total Bilirubin 0.40, AST 14 L, ALT 22, Alkaline Phosphatase 77, Total Protein 6.5, Albumin 3.2, Globulin 3.3, Albumin/Globulin Ratio 1.0, Triglycerides 111, Cholesterol 178, LDL Cholesterol 96, VLDL Cholesterol 22, HDL Cholesterol 60 Clinical Impression(s) from Imaging Studies Chest X-Ray 06/11/24 17:50 IMPRESSION: No acute findings in the chest. Electronically Signed: Muriel De Dios MD at 18:08 EST , Echocardiogram 06/11/24 20:02 Interpretation Summary The study was technically difficult. Mild concentric left ventricular hypertrophy. The left ventricular ejection fraction is 70 %. Stage 1 diastolic dysfunction. Ordering Physician: Rosita Alonzo Performed By: Kevin Abrams RCS Chest CTA 06/12/24 04:23 IMPRESSION: 1. No evidence of pulmonary emboli. 2. Multiple small pulmonary nodules bilaterally largest 4 mm similar to previous study. Follow-up recommended according to Fleischner Society guidelines: If low risk patient, no follow-up needed; if high-risk patient, i.e. smoking or other risk factors: CT at 6 months. 3. Cholelithiasis. *Fleischner Society Recommendations (Radiology 2017, 284:228-243.) (Follow-up and management of multiple nodules smaller than 8 mm detected incidentally at non-screening CT. Newly detected indeterminate nodule in persons 35 years of age or older.) Low risk patient: Minimal or absent history of smoking and of other known risk factors. < 6 mm: No followup needed 6-8mm: Initial Follow-up CT at 3-6 months, then consider CT at 18-24 months >8mm: CT at 3-6 months, then consider CT at 18-24 months High risk patient: History of smoking or of other known risk factors. < 6 mm: Optional CT at 12 months. 6-8mm: CT at 3-6 months, then CT at 18-24 months. >8mm: CT at 3-6 months, then CT at 18-24 months Electronically Signed: Joann Wise MD at 5:59 EST , Venous Doppler Study 06/12/24 04:23 Interpretation Summary Acute deep vein thrombosis is noted in the right gastrocnemius vein. Deep veins of the left lower extremity are patent and compressible segmentally. There is no evidence of left lower extremity deep vein thrombosis. The bilateral great saphenous veins appear patent and compressible segmentally. Ordering Physician: Amador Earl Performed By: Jurgen Rojas RVT 2. Acute DVT in right gastrocnemius vein: This does not involve popliteal vein or proximal vein therefore acute anticoagulation not indicated. Recommended repeat venous duplex after 1 week. NEVA -Patient has untreated -Has not tolerated CPAP or supplemental oxygen in the past -Continued outpatient follow-up with pulmonary medicine Inflammatory bowel disease -patient has history of Crohn's disease -Follows in [place] [facility] she has been on several bouts of steroids recently and has follow-up pending -No symptoms at this time and hemoglobin stable Essential hypertension: BP was 157, 166/103 but currently 115/89. Carvedilol was added. Hold HCTZ as patient is on IV Lasix. Continue losartan. Morbid obesity -BMI 41.4 -Recommend weight loss -Complicates treatment, prognosis, outcomes DVT prophylaxis -Lovenox SQ twice daily 40 mg CODE STATUS -Full code as verified at the time of admission Charges/Coding Visit Charges Inpatient E&M: 28154 Subs Hosp L2
--- NOTE | 2024-06-12 12:45 | STRESSREP ---
Stress Test Report Date: 06/12/2024 Procedure: Pharmacologic stress nuclear imaging study Indications: Chest pain Consent: Per the patient Procedure: The patient underwent pharmacologic (Regadenoson 0.4mg ) evaluation with a peak heart rate of 106 beats per minute (72%predicted maximal heart rate) and a peak blood pressure of 142/90 mmHg. The baseline ECG demonstrated sinus rhythm. The peak pharmacologic ECG demonstrated no ischemic changes. Rare PVC noted preinfusion and during pharmacologic infusion. There was no complaint of chest discomfort during pharmacologic infusion or recovery. The patient was injected with 14.9 millicuries of technetium 99m Cardiolite and subsequently rest SPECT Cardiolite nuclear imaging was obtained in the horizontal long, vertical long, and short axis views. The patient underwent pharmacologic (Regadenoson) evaluation. The patient was injected with 45.3 millicuries of technetium 99m Cardiolite and subsequently stress SPECT Cardiolite nuclear imaging was obtained in the horizontal long, vertical long, and short axis views. A gated Cardiolite study at peak stress was obtained. The examination was stopped secondary to completion of protocol. Rest and stress SPECT Cardiolite nuclear imaging status post realignment, normalization, and attenuation correction demonstrate no fixed or reversible perfusion defects. There is end systolic thickening and brightening. The gated Cardiolite study demonstrates myocardial thickening and inward wall motion. The reported LVEF is 77%. Impression: 1. Pharmacologic (Regadenoson) evaluation 2. Peak pharmacologic ECG with no ischemic changes. 3. Rare PVC noted. 5. Rest and stress SPECT Cardiolite nuclear imaging demonstrate relative uniform tracer uptake and myocardial perfusion appearing within normal limits. 6. The gated Cardiolite study reports an LVEF of 77%. This note was generated with ticketstreetation software. It may contain incorrect words, spelling, and punctuation that were not noted in checking the note before signing.
[2024-06-12 14:00] VITALS: BP 115/89; PULSE 89; RESP 19; TEMP 36.5; O2SAT 96
[2024-06-12] MEDS: Acetaminophen 325 MG Tablet 650 MG PO (14:06)
--- NOTE | 2024-06-12 15:51 | CASEMGMT ---
Met with patient to complete CASTILLO form. CASTILLO form explained to patient who voiced understanding and signed form. Original form placed in pt?s chart and copy provided to patient. Sunni Montero, Discharge Planning Asst
[2024-06-12 16:09] LABS: BNP,B-Type NATRIURETIC PEPTIDE 12.6 pg/mL (0-100)
[2024-06-12 17:30] VITALS: BP 144/89; PULSE 85
[2024-06-12] MEDS: Spironolactone 25 MG Tablet PO (17:33)
[2024-06-12] MEDS: 0.9% Saline Lock 10 ML Syringe IV (17:34)
[2024-06-12] MEDS: Furosemide 40 MG/4 ML Vial IV (17:35)
[2024-06-12] MEDS: Carvedilol 6.25 MG Tablet PO (17:36)
[2024-06-12 21:23] VITALS: BP 124/93; PULSE 84; RESP 18; TEMP 37.3; O2SAT 94
--- NOTE | 2024-06-12 21:35 | PCM.HOSP.N ---
Hospitalist Note Called due to DVT being noted on lower extremity Dopplers. It is below the knee and the gastrocnemius however patient is morbidly obese and has high risk features so we will go ahead and start Eliquis 10 mg daily to twice daily. She will need this for total of 7 days then transition to 5 mg p.o. twice daily and treat for 3 months. The alternative to anticoagulation will be followed with serial Dopplers however I think she is overall high risk enough that treatment would be more prudent at this time. Discontinue subcu Lovenox.
[2024-06-12] MEDS: APIXABAN 5 MG TABLET 10 MG PO (22:07)
[2024-06-13 03:45] VITALS: O2SAT 89
[2024-06-13 03:58] VITALS: BP 121/73; PULSE 75; RESP 14; TEMP 36.6; O2SAT 95
[2024-06-13 07:27] LABS: Anion Gap 6 (5-15); BUN 17 mg/dL (7-18); BUN/Creat Ratio 17.6 RATIO (10-20); Calcium,Total 8.8 mg/dL (8.5-10.1); Chloride 107 mmol/L (98-107); Creatinine, Serum 0.97 mg/dL (0.55-1.02); EST Glomerular Filtration Rate 60 mL/min (>60); Est Glom Filt Rate - Afr Amer 73 mL/min (>60); Estimated Creatinine Clearance 61.53 ml/min; Glucose 110 mg/dL (74-106); Potassium 3.6 mmol/L (3.5-5.1); Sodium Level 141 mmol/L (136-145)
[2024-06-13 07:39] VITALS: O2SAT 95
[2024-06-13 08:26] VITALS: BP 131/99; PULSE 92; RESP 20; TEMP 36.4; O2SAT 97
[2024-06-13] MEDS: Carvedilol 6.25 MG Tablet PO (08:28)
--- NOTE | 2024-06-13 09:19 | DCINST_ITS ---
Discharge Instructions DC O2, CPAP, BIPAP needs Home O2 Discharge instructions: Yes Type of respiratory needs?: Oxygen Oxygen frequency: With Sleeping Oxygen liters per minute when sleepin l/M Follow Up Care Test Results: Test results from this visit will be discussed in further detail at your follow- up appointment, if applicable. Discharge Plan Admission Admit Date/Time: 06/11/24 19:38 Primary Reason for Your Visit: Atypical chest pain. ACS ruled out Attending Provider: Louie Dias Primary Care Provider: Gray Quintana Consulting Providers: Rosita Alonzo Discharge Orders/Prescriptions Prescriptions: New carvedilol 6.25 mg Tablet 6.25 mg PO BIDCM 30 Days Qty: 60 2RF Rx Instructions: Hold for heart less than 50 or systolic blood pressure less than 100 mmHg. Eliquis DVT-PE Treat 30D Start 5 mg (74 tabs) tablets,dose pack 5 mg PO BID Qty: 74 0RF Rx Instructions: 10 mg (2 tabs) twice daily for 7 days till 06/19/24 and then twice daily to continue atorvastatin 40 mg tablet 40 mg PO QHS 30 Days Qty: 30 2RF Continued losartan-hydrochlorothiazide 50-12.5 mg tablet 1 tab PO DAILY losartan 50 mg tablet 50 mg PO HS Referrals / Follow Up: Gray Quintana DO [Primary Care Provider] - Disposition Disposition (needs filled in before D/C Order can be placed): Home, Self Care
--- NOTE | 2024-06-13 09:28 | DS.PCM_ITS ---
Providers Date of Admission: 06/11/24 Date of Discharge: 06/13/24 Primary Care Physician: Dr. Gray Quintana, Reason For Visit: CHEST PAIN Diagnosis Discharge Diagnosis (1) Elevated troponin I level: Status: Acute Code(s): R79.89 - Other specified abnormal findings of blood chemistry (2) Atypical chest pain: Status: Acute Code(s): R07.89 - Other chest pain (3) Lower extremity edema: Status: Acute Code(s): R60.0 - Localized edema Plan 74-year-old female was admitted with left-sided chest pain that is started 1 day before admission, intermittent reproducible, increased with certain movements/positional. No exertional shortness of breath. Denies history of DVT. No fever or chills 1. Atypical chest pain with mild troponin elevation, noncardiac possible due to elevated blood pressure: Indeterminate with flat troponin. Patient is being admitted in PCU. Mild shortness of breath probably due to obstructive sleep apnea/chronic COPD asthma overlap. Patient had nuclear stress test was negative for acute ischemia. Therefore, acute coronary syndrome ruled out. Echo shows EF 70% with mild concentric LVH stage I diastolic function suggestive of chronic HFpEF but does not look like an acute heart failure. Patient has bilateral lower extremity edema probably due to heart failure or uncontrolled blood pressure/hypertension. Lasix 40 mg IV daily Lasix 41 IV daily ordered. 06/13: Swelling is better. Blood pressure is controlled. No chest pain. Patient on losartan 100 mg and HCTZ 12.5 mg. Follow with PCP. Recommend changing the HCTZ to furosemide for lower extremity edema. Follow-up in cardiology office. Prescription given for carvedilol. 2. Acute DVT in right gastrocnemius vein: This does not involve popliteal vein or proximal vein 06/13: Patient is stated she has ulcerative colitis, morbid obesity that puts high risk for DVT therefore decided for full anticoagulation. Prescribed Eliquis 10 mg twice daily for 1 week till 06/19/2024 and then 5 mg twice daily to continue for total of 3 months NEVA -Patient has untreated -Has not tolerated CPAP or supplemental oxygen in the past -Continued outpatient follow-up with pulmonary medicine 06/13: Patient follows Dr. Tari Puri. Advised PFT and sleep study. Patient might have restrictive or obstructive lung disease or mixed with Inflammatory bowel disease, ulcerative -Follows in [facility] [place] -States she has been on several bouts of steroids recently and has follow-up pending -No symptoms at this time and hemoglobin stable Essential hypertension: Blood pressure is controlled. Morbid obesity -BMI 41.4 -Recommend weight loss -Complicates treatment, prognosis, outcomes DVT prophylaxis -Lovenox SQ twice daily 40 mg CODE STATUS -Full code as verified at the time of admission Discharge medication reconciliation done. Discharge follow-up instructions completed. Discharge process discussed with the patient and all questions were answered to patient's satisfaction. Follow with PCP in 1 to 2 weeks Total time spent, exact 35 minutes on discharge meds reconciliation, examination, coordination of care with nurses and ancillary staff, review of imaging and blood test and discussion with the patient on follow-up instructions. Clinical Impression(s) from Imaging Studies Chest X-Ray 06/11/24 17:50 IMPRESSION: No acute findings in the chest. Echocardiogram 06/11/24 20:02 Interpretation Summary The study was technically difficult. Mild concentric left ventricular hypertrophy. The left ventricular ejection fraction is 70 %. Stage 1 diastolic dysfunction. Chest CTA 06/12/24 04:23 IMPRESSION: 1. No evidence of pulmonary emboli. 2. Multiple small pulmonary nodules bilaterally largest 4 mm similar to previous study. Follow-up recommended according to Fleischner Society guidelines: If low risk patient, no follow-up needed; if high-risk patient, i.e. smoking or other risk factors: CT at 6 months. 3. Cholelithiasis. *Fleischner Society Recommendations (Radiology 2017, 284:228-243.) (Follow-up and management of multiple nodules smaller than 8 mm detected incidentally at non-screening CT. Newly detected indeterminate nodule in persons 35 years of age or older.) Low risk patient: Minimal or absent history of smoking and of other known risk factors. < 6 mm: No followup needed 6-8mm: Initial Follow-up CT at 3-6 months, then consider CT at 18-24 months >8mm: CT at 3-6 months, then consider CT at 18-24 months High risk patient: History of smoking or of other known risk factors. < 6 mm: Optional CT at 12 months. 6-8mm: CT at 3-6 months, then CT at 18-24 months. >8mm: CT at 3-6 months, then CT at 18-24 months Electronically Signed: Joann Wise MD at 5:59 EST , Venous Doppler Study 06/12/24 04:23 Interpretation Summary Acute deep vein thrombosis is noted in the right gastrocnemius vein. Deep veins of the left lower extremity are patent and compressible segmentally. There is no evidence of left lower extremity deep vein thrombosis. The bilateral great saphenous veins appear patent and compressible segmentally. ____ Medications at Discharge Home Medications losartan 50 mg-hydrochlorothiazide 12.5 mg tablet 1 tab PO DAILY 12/15/21 losartan 50 mg tablet 50 mg PO HS 01/02/22 apixaban 5 mg (74 tabs) tablets in a dose pack ([place] DVT-PE Treat 30D Start) 5 mg PO BID #74 tabs 06/13/24 atorvastatin 40 mg tablet 40 mg PO QHS 1 month #30 tabs 06/13/24 carvedilol 6.25 mg tablet 6.25 mg PO BIDCM 30 days #60 tabs 06/13/24 Physical Exam Narrative Seen and examined Shortness of breath is better. Chronic dyspnea on exertion due to morbid obesity/obstructive sleep apnea. 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 Tari Puri. Currently, she does not have chest pain pressure. 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 Physical exam General: Alert, Oriented x3, Cooperative. Morbidly obese BMI 41.4 kg square meter HEENT: Atraumatic, PERRLA, EOMI, Normocephalic Oral: Deep oropharyngeal discharge could not be visualized. Thick and white neck. Neck: Supple, No JVD, Negative Carotid Bruits Chest wall/Lungs: Air entry diminished in in all lung joyce. Wheezing has improved. Cardiovascular: Regular rate, Regular Rhythm, Normal S1, Normal S2, No M/G/R Abdomen: Bowel Sounds Present, Soft, Non Tender, Non-Distended : No dysuria. No renal angle tenderness. No suprapubic tenderness. Extremities: 2+ bilateral below-knee pitting edema, Capillary Refill Less than 3 Seconds Skin: No rashes, No breakdown Musculoskeletal: No Tenderness to Palpation of Joints or Extremities Neurological: Cranial nerves II-XII grossly intact, DTR 2+/4. No acute focal neurological deficit. Psych/Mental Status: Normal Affect, Appropriate. Weight / BMI Weight Weight: 241 lb 4.8 oz Body Mass Index (BMI) 41.4 ABG / Lab / Microbiology Data 06/12/24 03:52 06/13/24 06:35 Laboratory: Laboratory Results - last 24 hr 06/12/24 03:52: B-Natriuretic Peptide 12.6 06/13/24 06:35: Sodium 141, Potassium 3.6, Chloride 107, Carbon Dioxide 28.0, Anion Gap 6, BUN 17, Creatinine 0.97, Estim Creat Clear Calc 61.53, Est GFR (MDRD) Af Amer 73, Est GFR (MDRD) Non-Af 60, BUN/Creatinine Ratio 17.6, Glucose 110 H, Calcium 8.8 Radiography Diagnostic Testing: Radiology Impression Echocardiogram 06/11/24 20:02 Interpretation Summary The study was technically difficult. Mild concentric left ventricular hypertrophy. The left ventricular ejection fraction is 70 %. Stage 1 diastolic dysfunction. Ordering Physician: Rosita Alonzo Performed By: Kevin Abrams RCS Venous Doppler Study 06/12/24 04:23 Interpretation Summary Acute deep vein thrombosis is noted in the right gastrocnemius vein. Deep veins of the left lower extremity are patent and compressible segmentally. There is no evidence of left lower extremity deep vein thrombosis. The bilateral great saphenous veins appear patent and compressible segmentally. Ordering Physician: Amador Earl Performed By: Jurgen Rojas, RVT D/C Instructions DC O2, CPAP, BIPAP Needs Home O2 Discharge instructions: Yes Type of respiratory needs?: Oxygen Oxygen frequency: With Sleeping Oxygen liters per minute when sleepin l/M DC home with Oxygen: Yes Home O2 MD Review: I have reviewed the oxygen testing, and the patient qualifies for home oxygen equipment and portability. The patient is mobile in the home and the community. Meaningful Use Info Meaningful Use Meaningful Use Diagnoses (Choose all that apply): None applicable Ischemic Stroke Statin Dosing Therapy Reference: STATIN DOSE THERAPY REFERENCE: * Patients > 75 years receive moderate or high dose statin therapy. * Patients 75 years or YOUNGER should receive HIGH intensity statin dose unless contraindicated. You will be required to document reason for non-treatment if statin daily dose does not meet guidelines. HIGH DOSE STATIN THERAPY DAILY Atorvastatin > than or = to 40 mg Rosuvastatin > than or = to 20 mg Amlodipine + Atorvastatin > than or = to 2.5/40 mg Ezetimibe + Simvastatin 10/80 mg Simvastatin 80mg Discharge Plan Admission Admit Date/Time: 06/11/24 19:38 Primary Reason for Your Visit: Atypical chest pain. ACS ruled out Attending Provider: Louie Dias Primary Care Provider: Gray Quintana Consulting Providers: Rosita Alonzo Discharge Orders/Prescriptions Prescriptions: New carvedilol 6.25 mg Tablet 6.25 mg PO BIDCM 30 Days Qty: 60 2RF Rx Instructions: Hold for heart less than 50 or systolic blood pressure less than 100 mmHg. Eliquis DVT-PE Treat 30D Start 5 mg (74 tabs) tablets,dose pack 5 mg PO BID Qty: 74 0RF Rx Instructions: 10 mg (2 tabs) twice daily for 7 days till 06/19/24 and then twice daily to continue atorvastatin 40 mg tablet 40 mg PO QHS 30 Days Qty: 30 2RF Continued losartan-hydrochlorothiazide 50-12.5 mg tablet 1 tab PO DAILY losartan 50 mg tablet 50 mg PO HS Referrals / Follow Up: Gray Quintana DO [Primary Care Provider] - Disposition Disposition (needs filled in before D/C Order can be placed): Home, Self Care Charges/Coding Visit Charges Inpatient E&M: 19609 Disch Hosp >30min
--- NOTE | 2024-06-13 10:00 | CASEMGMT ---
GIOVANNI BAER NOTE: Discharge order is in. Eliquis has been e-scribed to [facility] in [place]. GIOVANNI BAER to room. Pt sitting up in chair, awake/alert/oriented. Pt states she is ready to discharge home. Discussed Eliquis and importance of use. GIOVANNI BAER did provide Eliquis 30-day free trial offer card and instructed on use, made aware it is a zapa-ma-j-lifetime use card, and to discuss other possible options or financial assistance w/PCP if refills are not affordable. Pt voices no other discharge concerns/needs. Pt voices concern w/taking Eliquis d/t having ulcerative colitis and has been told to not take any ASA, ibuprofen, or any other NSAIDS. GIOVANNI BAER notified Dr Dias of same and he states he still wishes for her to take this @ discharge. He states he will go talk to pt about her concerns. Tamara LOFTON RN, CM
[2024-06-13 10:31] VITALS: O2SAT 90; O2SAT 95
[2024-06-13] MEDS: APIXABAN 5 MG TABLET 10 MG PO (10:44)
[2024-06-13] MEDS: Losartan Potassium 50 MG Tablet PO (10:44)
[2024-06-13] MEDS: Spironolactone 25 MG Tablet PO (10:44)
== END 2024-06-13 12:44 | disposition home or self-care (01) ==
LOC: ED 19:17 → PCU 20:03
PROVIDERS: Admitting Provider Internal Medicine; Emergency Provider Emergency Medicine; PCP Student in an Organized Health Care Education/Training Program; Visit Provider Internal Medicine
DX: R07.89 Other chest pain (principal); J44.89 Other specified chronic obstructive pulmonary disease; I82.461 Acute embolism and thrombosis of right calf muscular vein; K51.90 Ulcerative colitis, unspecified, without complications; E66.01 Morbid (severe) obesity due to excess calories; Z68.41 Body mass index [BMI] 40.0-44.9, adult; G47.33 Obstructive sleep apnea (adult) (pediatric); Z87.891 Personal history of nicotine dependence; I10 Essential (primary) hypertension; R60.0 Localized edema; R79.89 Other specified abnormal findings of blood chemistry; Z99.81 Dependence on supplemental oxygen; Z79.899 Other long term (current) drug therapy; R06.02 Shortness of breath
CPT/HCPCS: 36415; 71045; 71275; 78452; 80048; 80053; 80061; 83735; 83880; 84100; 84484; 85025; 85379; 93005; 93017; 93306; 93970; 94668; 96372; 96374; 96376; 99221; 99252; 99284; A9500; Q9957; Q9967; A4216; C8929; G0378; G0463; J1940; J2785

== ENCOUNTER 2025-01-15 11:51 | Emergency (ER) | payer MEDICARE, OTHER, SELFPAY ==
[2025-01-15 11:52] VITALS: BP 123/79; PULSE 107; RESP 16; TEMP 36.8; O2SAT 95; BMI 40.4
--- NOTE | 2025-01-15 12:03 | CT_ITS ---
PROCEDURE: ABDOMEN/PELVIS W IV CONT ONLY 01/15/2025 REASON FOR EXAM: LLQ PAIN History of possible colitis flare-ups. TECHNIQUE: ABDOMEN/PELVIS W IV CONT ONLY Coronal and Sagittal reconstruction series were provided. CONTRAST: Isovue 370 VOLUME: 100 mL One or more dose reduction techniques were used (e.g., Automated exposure control, adjustment of the mA and/or kV according to patient size, use of iterative reconstruction technique. RADIATION DOSE SUMMARY: CTDlvol: 17 mGy DLP: 1327.41 mGycm COMPARISON: Prior study dated April 25, 2023. FINDINGS: Lung bases: The lung bases are clear. Coronary artery calcification. Liver: Normal size. No mass. Gallbladder: Solitary gallstone. Spleen: Normal size. Pancreas: Diffuse fatty atrophy. Adrenals: Unremarkable Kidneys: Bilateral parapelvic cysts. Bladder: Unremarkable Reproductive Organs: Unremarkable Bowel: Sigmoid colon diverticula with wall thickening and adjacent inflammatory changes. No evidence of perforation or abscess. Appendix: Appendix is not visualized. Lymph nodes: Unremarkable. Vasculature: Mild diffuse atherosclerotic calcifications are noted. Peritoneum / Retroperitoneum: Unremarkable Bones: Degenerative changes of the spine. CT/Abdomen/Pelvis W IV Cont ONLY IMPRESSION: Findings in keeping with a non complicated sigmoid diverticulitis. Solitary gallstone. Stable bilateral parapelvic renal cysts. Reading Location: [id number]
--- NOTE | 2025-01-15 12:07 | EDS_ITS ---
HPI <HENRI Morales - Last Filed: 01/15/25 13:47> History of Present Illness Chief Complaint: Abd Pain Narrative Narrative: 74-year-old female with past medical history of hypertension, ulcerative colitis presents with 3 days of periumbilical and lower abdominal pain. This morning she had cottage cheese and then had an episode of nausea and vomiting. She is having 5-6 small soft bowel movements a day. No melena hematochezia. She states the symptoms started the day after she was put on Macrobid for UTI. She was diagnosed with ulcerative colitis in her 40s but not take medication for it because it caused her acid reflux. She follows with a GI doctor in [place] and had a normal colonoscopy about a year ago. She thinks her last flare was about a year and a half ago treated with prednisone. PFS <HENRI Morales - Last Filed: 01/15/25 13:47> ON LICENSE OF [facility] Medical History Anxiety Depression Osteoporosis Kidney disease Hepatitis Former smoker On home oxygen therapy Asthma Chest pain Ulcerative colitis HTN (hypertension) History of hypertension Home Medications ?Medication ?Instructions ?Recorded ?Last Taken ?Type losartan 50 mg-hydrochlorothiazide 1 tab PO DAILY 11/26 06/18 Unknown History 12.5 mg tablet losartan 50 mg tablet 50 mg PO HS 01/02/22 Unknown History apixaban 5 mg (74 tabs) tablets in 5 mg PO BID #74 tab s 06/13/24 Unknown Rx a dose pack (Wetpaintquis DVT-PE Treat 30D Start) atorvastatin 40 mg tablet 40 mg PO QHS 1 month #30 tab s 06/13/24 Unknown Rx carvedilol 6.25 mg tablet 6.25 mg PO BIDCM 30 days #60 tabs 06/13/24 Unknown Rx ciprofloxacin HCl 500 mg tablet 500 mg PO BID 7 days # 14 tabs 01/15/25 Unknown Rx (Cipro) hydrocodone-acetaminophen 5-325mg 1 tab PO Q6H PRN PRN Pain 3 days 01/15/25 Unknown Rx 5mg-325mg #10 TABLETS metronidazole 500 mg tablet 500 mg PO BID 7 days #14 t abs 01/15/25 Unknown Rx ondansetron 4 mg disintegrating 4 mg PO Q6H PRN nausea and 01/15/25 Unknown Rx tablet vomiting #10 tabs Allergy/AdvReac Type Severity Reaction Status Date / Time No Known Allergies Allergy Verified 06/11/24 16:42 Family History Father Colon cancer Aunt Colon cancer Breast cancer Surgical History S/P ORIF (open reduction internal fixation) fracture Hx of shoulder surgery Hx of lumbar discectomy History of mandibular surgery History of tonsillectomy History of back surgery Social History (Updated 06/11/24 @ 21:[address] Rosita Alonzo DO) Smoking Status: Former smoker Tobacco: How many years used: 40 alcohol intake: never substance use type: does not use ROS <HENRI Morales - Last Filed: 01/15/25 13:47> ROS ED ROS Narrative Constitutional: Negative for fever, chills, malaise. GI: Positive for abdominal pain, nausea, vomiting. Negative for melena, hematochezia. : Negative for dysuria. EXAM <HENRI Morales - Last Filed: 01/15/25 13:47> Physical Exam Narrative Exam Narrative: CONST: Patient sitting in no acute distress. EYES: Normal inspection. NECK: Normal inspection. RESP: No respiratory distress, CTAB. CVS: Regular rate and rhythm, no murmur, no gallop. ABD: Obese abdomen is soft with left lower quadrant tenderness, no guarding or rebound, nondistended. SKIN: Color normal, no rash, warm, dry, intact. EXTREMITIES: Normal appearance, no pedal edema. NEURO: Alert and answering questions appropriately. PSYCH: Normal affect. ` Const Vital Signs: 01/15/25 11:52 Temperature 98.3 F Temperature Source Temporal Pulse Rate 107 H Respiratory Rate 16 Blood Pressure 123/79 H Blood Pressure Mean 93 Pulse Ox 95 Oxygen Delivery Method Room Air <Dr. Jordin Najera, - Last Filed: 01/15/25 14:16> Physical Exam Const Vital Signs: 01/15/25 11:52 Temperature 98.3 F Temperature Source Temporal Pulse Rate 107 H Respiratory Rate 16 Blood Pressure 123/79 H Blood Pressure Mean 93 Pulse Ox 95 Oxygen Delivery Method Room Air MDM <HENRI Morales - Last Filed: 01/15/25 13:47> MDM MDM Narrative Medical decision making narrative: Differential includes but not limited to diverticulitis, ulcerative colitis flare, UTI 74-year-old female presents with few days of periumbilical and bilateral lower abdominal pain and increased bowel movements. She appears well and nontoxic. She is tachycardic at 107 with otherwise normal vital signs. Abdomen is soft with left lower quadrant tenderness without peritoneal signs. Overall labs are unremarkable, white count normal at 9.7, electrolytes and renal function normal. She is on Macrobid for UTI and UA looks like the infection has cleared. CT shows acute uncomplicated sigmoid diverticulitis. She was given first dose of p.o. Cipro and Flagyl. She declined pain medication in the department but was prescribed [place] and Zofran at home for breakthrough pain. I discussed clear liquids and then transition to a bland diet and return precautions. She was discharged in stable condition. History & Record Review Additional record(s) reviewed:: Prior ED visit and Prior labs Lab Data Attestation: I reviewed the patient's lab results. Labs: Laboratory Results - last 24 hr 01/15/25 01/15/25 12:15 13:05 WBC 9.7 RBC 4.06 L Hgb 12.1 Hct 36.7 L MCV 90.4 MCH 29.8 MCHC 33.0 RDW Std Deviation 47.0 H RDW Coeff of Javi 14.2 Plt Count 267 MPV 10.1 Immature Gran % (Auto) 0.300 Neut % (Auto) 75.2 H Lymph % (Auto) 13.3 L [place] % (Auto) 8.2 Eos % (Auto) 2.7 Baso % (Auto) 0.3 Absolute Neuts (auto) 7.3 Absolute Lymphs (auto) 1.29 Nucleated RBC % 0 Sodium 140 Potassium 3.3 Chloride 105 Carbon Dioxide 21.1 Anion Gap 14 BUN 19 Creatinine 0.97 Estim Creat Clear Calc 60.68 Est GFR (MDRD) Non-Af 61 BUN/Creatinine Ratio 20.0 Glucose 133 H Calcium 8.7 Urine Color Yellow Urine Clarity Clear Urine pH 6.5 Ur Specific [place] 1.010 Urine Protein 30 H Urine Glucose (UA) Normal Urine Ketones Negative Urine Occult Blood 25 H Urine Nitrite Negative Urine Bilirubin Negative Urine Urobilinogen Normal Ur Leukocyte Esterase Negative Urine RBC 0 SEEN Urine WBC 0-5 SEEN Ur Squamous Epith Cells 0-5 SEEN Urine Bacteria 0 SEEN Urine Mucus 0 SEEN Radiography Diagnostic Testing: Clinical Impression(s) from Imaging Studies Abdomen/Pelvis CT 01/15/25 12:03 IMPRESSION: Findings in keeping with a non complicated sigmoid diverticulitis. Solitary gallstone. Stable bilateral parapelvic renal cysts. Reading Location: [id number] <Dr. Jordin Najera, DO - Last Filed: 01/15/25 14:16> [facility] Lab Data Labs: Laboratory Results - last 24 hr 01/15/25 01/15/25 12:15 13:05 WBC 9.7 RBC 4.06 L Hgb 12.1 Hct 36.7 L MCV 90.4 MCH 29.8 MCHC 33.0 RDW Std Deviation 47.0 H RDW Coeff of Javi 14.2 Plt Count 267 MPV 10.1 Immature Gran % (Auto) 0.300 Neut % (Auto) 75.2 H Lymph % (Auto) 13.3 L [place] % (Auto) 8.2 Eos % (Auto) 2.7 Baso % (Auto) 0.3 Absolute Neuts (auto) 7.3 Absolute Lymphs (auto) 1.29 Nucleated RBC % 0 Sodium 140 Potassium 3.3 Chloride 105 Carbon Dioxide 21.1 Anion Gap 14 BUN 19 Creatinine 0.97 Estim Creat Clear Calc 60.68 Est GFR (MDRD) Non-Af 61 BUN/Creatinine Ratio 20.0 Glucose 133 H Calcium 8.7 Urine Color Yellow Urine Clarity Clear Urine pH 6.5 Ur Specific [place] 1.010 Urine Protein 30 H Urine Glucose (UA) Normal Urine Ketones Negative Urine Occult Blood 25 H Urine Nitrite Negative Urine Bilirubin Negative Urine Urobilinogen Normal Ur Leukocyte Esterase Negative Urine RBC 0 SEEN Urine WBC 0-5 SEEN Ur Squamous Epith Cells 0-5 SEEN Urine Bacteria 0 SEEN Urine Mucus 0 SEEN Radiography Diagnostic Testing: Clinical Impression(s) from Imaging Studies Abdomen/Pelvis CT 01/15/25 12:03 IMPRESSION: Findings in keeping with a non complicated sigmoid diverticulitis. Solitary gallstone. Stable bilateral parapelvic renal cysts. Reading Location: [id number] Treatment and Re-Evaluation :: I have personally performed a face to face assessment of the patient and have reviewed the MELODY Note. I performed a substantive portion of the visit including all aspects of the following. My angel findings include: History: Patient presents with abdominal pain that became worse today. Patient states gradually. Patient states that pain. Patient describes it as cramping. Patient states it is diffuse over her abdomen. Patient states nothing makes it worse and nothing makes it better. Patient admits to some nausea and vomiting but denies any hematemesis or coffee-ground emesis. Patient does admit to some dark bloody stools. Patient also admits to decreased appetite. Patient is currently on antibiotic for urinary tract infection. Exam: Vital signs are stable. Patient is afebrile. Patient is in no acute distress. Oral mucosa is pink and moist. Neck is supple. Trachea is midline. There is no JVD. Heart with regular rate and rhythm. Lungs are clear and equal bilaterally. Abdomen is soft. Bowel sounds are normal. There is mild left sided abdominal tenderness. There is no rebound or guarding. Cranial nerves II through XII are intact. There are no focal motor or sensory deficits. Medical Decision Making: Differential diagnosis includes ulcerative colitis, diverticulitis, bowel obstruction, perforation, and viral illness. CBC will be obtained to assess for leukocytosis and anemia. Basic metabolic profile will be obtained to assess for electrolyte abnormality and renal function. Urinalysis will be obtained to assess for urinary tract infection and hematuria. CT scan of the abdomen and pelvis will be obtained to assess for diverticulitis, bowel obstruction, and perforation. Patient was given IV fluids and Zofran. CBC was reviewed and was within normal limits. Basic metabolic profile was reviewed. Glucose was slightly elevated at 133. The remainder is within normal limits. Urinalysis was reviewed. There is no evidence of urinary tract infection or hematuria. CT scan of the abdomen and pelvis was reviewed. There is sigmoid diverticulitis. There is no evidence of bowel obstruction or perforation. There is a solitary gallstone. This was interpreted by the radiologist and was also independently reviewed by myself. Patient was advised of her findings. Patient was instructed to stop taking her Macrobid. Patient was given prescriptions for Cipro and Flagyl. Patient was instructed to follow-up with her primary care physician in 5 to 7 days. Patient understood and was agreeable with the plan. All questions were answered. Discharge Plan Triage Chief Complaint: Abd Pain ED Midlevel Provider: Linda Madison ED Provider: Jordin Najera Dx/Rx/DC Orders Clinical Impression: Diverticulitis of sigmoid colon, Lower gastrointestinal bleeding Instructions: Diverticulitis Dc Prescriptions: New ciprofloxacin HCl [Cipro] 500 mg tablet 500 mg PO BID 7 Days Qty: 14 0RF metronidazole 500 mg tablet 500 mg PO BID 7 Days Qty: 14 0RF hydrocodone-acetaminophen 5-325 mg tablet 1 tab PO Q6H PRN PRN (Reason: Pain) 3 Days Qty: 10 0RF ondansetron 4 mg tablet,disintegrating 4 mg PO Q6H PRN (Reason: nausea and vomiting) Qty: 10 0RF No Action losartan-hydrochlorothiazide 50-12.5 mg tablet 1 tab PO DAILY losartan 50 mg tablet 50 mg PO HS carvedilol 6.25 mg Tablet 6.25 mg PO BIDCM 30 Days Qty: 60 2RF Rx Instructions: Hold for heart less than 50 or systolic blood pressure less than 100 mmHg. Eliquis DVT-PE Treat 30D Start 5 mg (74 tabs) tablets,dose pack 5 mg PO BID Qty: 74 0RF Rx Instructions: 10 mg (2 tabs) twice daily for 7 days till 06/19/24 and then twice daily to continue atorvastatin 40 mg tablet 40 mg PO QHS 30 Days Qty: 30 2RF Primary Care Provider: Gray Quintana Referrals: Gray Quintana, [Primary Care Provider] - Activity Restrictions/Additional Instructions: You have sigmoid diverticulitis which was treated with antibiotics for a week. I prescribed [place] for pain, nausea medicine, and recommend for the next 2 days you drink clear fluids only then slowly eating bland food again. If symptoms worsen or you develop fever, worsening abdominal pain, or cannot keep down your medications come down to the ER. Print Language: Citizen Of [place] Disposition Disposition: Home, Self Care
[2025-01-15 12:22] LABS: Hematocrit 36.7 % (37-47); Hemoglobin 12.1 g/dL (12.0-15.0); Immature Granulocytes Count 0.030 X10^3/uL (0.0-0.0); Mean Corp Hgb Conc 33.0 g/dL (32-36); Mean Corpuscular Volume 90.4 fL (81-99); Mean Platelet Vol. 10.1 fl (6.2-12.0); NRBC Flagged by Analyzer 0 % (0-5); Platelet Count 267 K/mm3 (150-450); RBC Distribution Width CV 14.2 % (11.6-14.6); RBC Distribution Width SD 47.0 fl (35.1-43.9); Red Blood Count 4.06 M/mm3 (4.2-5.4); White Blood Count 9.7 K/mm3 (4.4-11.0)
[2025-01-15] MEDS: 0.9% Normal Saline (1000mL) 1,000 ML 999 ML IV (12:45)
[2025-01-15 13:01] LABS: Anion Gap 14 (5-15); BUN 19 mg/dL (4-19); BUN/Creat Ratio 20.0 RATIO (10-20); Calcium,Total 8.7 mg/dL (7.6-11.0); Carbon Dioxide 21.1 mmol/L (21.0-32.0); Chloride 105 mmol/L (98-108); Estimated Creatinine Clearance 60.68 ml/min (50-250); Glucose 133 mg/dL (70-99); Potassium 3.3 mmol/L (3.3-5.1)
[2025-01-15 13:10] LABS: Mucous, Urine 0 SEEN /hpf (<or=2+); Red Blood Cells-Urine 0 SEEN /hpf (0-5)
[2025-01-15 13:11] LABS: Color, Urine Yellow (Yellow); Glucose, Dipstick Normal (Normal); Ketone-Dipstick Negative (Negative); Leukocyte Esterase-Dipstick Negative /ul (Negative); Nitrite-Dipstick Negative (Negative); Occult Blood-Urine 25 /ul (Negative); Protein-Dipstick 30 mg/dl (Negative); Specific Gravity, Urine 1.010 (1.002-1.030); Urine Bilirubin Dipstick Negative (Negative)
[2025-01-15 13:29] LABS: Squamous Epithelial Cells - UA 0-5 SEEN /hpf (5-10)
[2025-01-15 14:35] VITALS: BP 131/75; PULSE 88; RESP 18; TEMP 36.3; O2SAT 98
== END 2025-01-15 14:39 | disposition home or self-care (01) ==
PROVIDERS: Physician Assistant; Emergency Provider Emergency Medicine; PCP Student in an Organized Health Care Education/Training Program; Visit Provider Emergency Medicine
DX: K57.31 Diverticulosis of large intestine without perforation or abscess with bleeding (principal); K51.90 Ulcerative colitis, unspecified, without complications; R00.0 Tachycardia, unspecified; I10 Essential (primary) hypertension; Z79.899 Other long term (current) drug therapy; Z87.891 Personal history of nicotine dependence
CPT/HCPCS: 74177; 80048; 81001; 85025; 96360; 96361; 99284; Q9967; A4216; J2405

== ENCOUNTER 2025-01-17 09:59 | Emergency (ER) | payer MEDICARE, OTHER, SELFPAY ==
[2025-01-17 10:01] VITALS: BP 105/80; PULSE 90; RESP 22; TEMP 37.1; O2SAT 93; BMI 39.9
--- NOTE | 2025-01-17 10:23 | EDS_ITS ---
HPI HPI - GI History of Present Illness Chief Complaint: Abd Pain Informant: patient Narrative Narrative: 74-year-old female was seen here 2 days ago for abdominal pain and some rectal bleeding and was told she has diverticulitis, she was discharged started on Cipro and Flagyl. She returns today saying that she has had diarrhea starting yesterday, she had 6 or 7 bouts yesterday, but they were all very small amounts. Today, she states she got very little morning and then had a big blowout of a lot of diarrhea that was mostly watery stool, a little bit of blood in the stool and again when she wiped but no major bleeding. She then had another smaller bout of diarrhea that was more similar to what she had last night. She has been improving with regards to her abdominal pain. She denies any fevers or chills. It is Sunday morning she called her doctor about this and they referred her here to the ER. She denies any lightheadedness or near syncope. She denies any chest pain or shortness of breath. No nausea or vomiting. She does not have any abdominal pain right now she states when it is there it comes and goes but is not as bad as it was before she started the treatment. She is to be on a apixaban for DVT, but her doctor took her off of that sometime ago after her DVT was resolved. No history of C. difficile in the past. She states usually takes probiotic but has not taken it in a while. [facility] Medical History Anxiety Depression Osteoporosis Kidney disease Hepatitis Former smoker On home oxygen therapy Asthma Chest pain Ulcerative colitis HTN (hypertension) History of hypertension Home Medications ?Medication ?Instructions ?Recorded ?Last Taken ?Type losartan 50 mg-hydrochlorothiazide 1 tab PO DAILY 11/26 06/18 Unknown History 12.5 mg tablet losartan 50 mg tablet 50 mg PO HS 01/02/22 Unknown History atorvastatin 40 mg tablet 40 mg PO QHS 1 month #30 tab s 06/13/24 Unknown Rx carvedilol 6.25 mg tablet 6.25 mg PO BIDCM 30 days #60 tabs 06/13/24 Unknown Rx ciprofloxacin HCl 500 mg tablet 500 mg PO BID 7 days # 14 tabs 01/15/25 Unknown Rx (Cipro) hydrocodone-acetaminophen 5-325mg 1 tab PO Q6H PRN PRN Pain 3 days 01/15/25 Unknown Rx 5mg-325mg #10 TABLETS metronidazole 500 mg tablet 500 mg PO BID 7 days #14 t abs 01/15/25 Unknown Rx ondansetron 4 mg disintegrating 4 mg PO Q6H PRN nausea and 01/15/25 Unknown Rx tablet vomiting #10 tabs Allergy/AdvReac Type Severity Reaction Status Date / Time No Known Allergies Allergy Verified 01/17/25 10:01 Family History Father Colon cancer Aunt Colon cancer Breast cancer Surgical History S/P ORIF (open reduction internal fixation) fracture Hx of shoulder surgery Hx of lumbar discectomy History of mandibular surgery History of tonsillectomy History of back surgery Social History (Updated 06/11/24 @ 21:[address] Rosita Alonzo DO) Smoking Status: Former smoker Tobacco: How many years used: 40 alcohol intake: never substance use type: does not use ROS ROS ED Constitutional Constitutional ED: Denies chills or fever(s) Eyes Eyes: Denies change in vision or diplopia ENT ENT ED: Denies rhinorrhea or sore throat Cardiovascular Cardiovascular: Denies chest pain or palpitations Respiratory/Chest Respiratory/Chest: Denies cough or dyspnea Gastrointestinal Gastrointestinal: Reports abdominal pain, diarrhea and hematochezia; Denies melena, nausea or vomiting Genitourinary Genitourinary ED: Denies dysuria or hematuria Musculoskeletal Musculoskeletal: Denies back pain or neck pain Integumentary Denies abscess or rash Neurologic Neurologic: Denies headache(s), paresthesias or weakness Psychiatric Psychiatric: Denies anxiety or suicidal thoughts EXAM Physical Exam Const Vital Signs: 01/17/25 10:01 Temperature 98.7 F Temperature Source Oral Pulse Rate 90 Respiratory Rate 22 H Blood Pressure 105/80 Blood Pressure Mean 88 Pulse Ox 93 Oxygen Delivery Method Room Air Positive well nourished, well developed and obese Constitutional Narrative: Well-appearing no distress General Appearance ED: well developed and NAD Nutritional Appearance: obese HEENT Reports moist mucous membranes normocephalic and atraumatic Eyes PERRL and EOMs intact bilaterally Neck full ROM and supple Resp normal respiratory effort and clear to auscultation bilaterally Cardio regular rate, regular rhythm and no murmurs GI non-tender and non-distended Auscultation: normoactive bowel sounds Palpation: soft Back/Spine no CVA tenderness General Back: other FROM Extremity normal to inspection General Extremety ED: Negative for edema, pulses abnormal or tenderness General Extremity: Negative for edema or pulses abnormal Neuro oriented x3, CN's II-XII intact bilaterally and no sensory deficits noted Sensorium / Orientation: awake and alert Motor Exam: strength 5/5 throughout Skin no rashes or lesions noted and no wounds MDM MDM MDM Narrative Medical decision making narrative: Patient has very benign abdominal exam. I reviewed her labs and CT from 2 days ago, showing uncomplicated sigmoid diverticulitis, no significant leukocytosis, stable blood counts, and normal chemistries. Repeating her chemistries and blood counts given her bleeding, and we will observe her here, test her stool for C. difficile if she is able to provide specimen. Labs show some mild renal insufficiency likely due to some mild dehydration. Her blood counts are relatively stable, with her hemoglobin down just a little compared with the other day. This can be monitored as an outpatient. She had no diarrhea while here in the ER for 3 hours or more, and she prefers to go home. Clinically and hemodynamically she is doing well. I am going to prescribe her a test to rule out C. difficile advised that she continue her antibiotics for diverticulitis and to add a probiotic to that regimen, and she can submit specimen for the test as an outpatient and follow-up with her doctor after the weekend she is comfortable with the plan. Lab Data Attestation: I reviewed the patient's lab results. Labs: Laboratory Results - last 24 hr 01/17/25 10:40 WBC 7.8 RBC 3.82 L Hgb 11.2 L Hct 34.5 L MCV 90.3 MCH 29.3 MCHC 32.5 RDW Std Deviation 46.6 H RDW Coeff of Javi 13.9 Plt Count 261 MPV 9.6 Immature Gran % (Auto) 0.400 Neut % (Auto) 68.9 Lymph % (Auto) 18.1 L [place] % (Auto) 9.0 Eos % (Auto) 3.3 Baso % (Auto) 0.3 Absolute Neuts (auto) 5.4 Absolute Lymphs (auto) 1.41 Nucleated RBC % 0 Sodium 139 Potassium 3.3 Chloride 103 Carbon Dioxide 21.7 Anion Gap 15 BUN 21 H Creatinine 1.28 H Estim Creat Clear Calc 45.71 L Est GFR (MDRD) Non-Af 44 L BUN/Creatinine Ratio 16.4 Glucose 119 H Calcium 8.6 Discharge Plan Triage Chief Complaint: Abd Pain ED Provider: Varghese Lazo Dx/Rx/DC Orders Clinical Impression: Antibiotic-associated diarrhea, Acute kidney insufficiency, Diverticulitis of sigmoid colon, Hematochezia Instructions: ED Diarrhea, Unknown Cause Prescriptions: Continued losartan-hydrochlorothiazide 50-12.5 mg tablet 1 tab PO DAILY losartan 50 mg tablet 50 mg PO HS ciprofloxacin HCl [Cipro] 500 mg tablet 500 mg PO BID 7 Days Qty: 14 0RF metronidazole 500 mg tablet 500 mg PO BID 7 Days Qty: 14 0RF hydrocodone-acetaminophen 5-325 mg tablet 1 tab PO Q6H PRN PRN (Reason: Pain) 3 Days Qty: 10 0RF ondansetron 4 mg tablet,disintegrating 4 mg PO Q6H PRN (Reason: nausea and vomiting) Qty: 10 0RF carvedilol 6.25 mg Tablet 6.25 mg PO BIDCM 30 Days Qty: 60 2RF Rx Instructions: Hold for heart less than 50 or systolic blood pressure less than 100 mmHg. atorvastatin 40 mg tablet 40 mg PO QHS 30 Days Qty: 30 2RF Discontinued Eliquis DVT-PE Treat 30D Start 5 mg (74 tabs) tablets,dose pack 5 mg PO BID Qty: 74 0RF Rx Instructions: 10 mg (2 tabs) twice daily for 7 days till 06/19/24 and then twice daily to continue Other Ambulatory Orders: CDIFF (PCR) (Routine) Timeframe: 3 Days Facility: [facility] - Location: Laboratory Ordered By: Dr. Varghese Lazo Primary Care Provider: Gray Quintana Referrals: Gray Quintana DO [Primary Care Provider] - Activity Restrictions/Additional Instructions: Take probiotic at least twice a day while you are on the antibiotics and preferably for the next 3 days or so when you are done with them. If you are able to collect a stool specimen at home submitted to the lab when you are able and follow-up with your doctor for the results. Print Language: K[place] Disposition Disposition: Home, Self Care
--- OUTSIDE RECORDS SUMMARY | 2025-01-17 10:32 | XMS RPT_ITS | CCD ---
Author Organization [facility] CliniSymi Care Team Providers Care School Laboratory Technician Name Role Phone VITALY ENTERPRISE INFRASTRUCTURE ARCHITECT-TOOL 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, JACKIE Primary Care Physician Mateo PT, Linda Unavailable Unavailable Vitaly ORDER ANALYST, ORDER ANALYST-C Jackie Primary Care Provider [phone] Dr. Paulie Montaño Attending Provider Dr. Paulie Montaño Referring Provider Vitaly GARCIA, ORDER ANALYST-C Jackie Primary Care Provider [phone] Vitaly GARCIA, ORDER ANALYST-C Jackie Referring Provider Dr. Paulie Montaño Attending Provider Vitaly GARCIA, ORDER ANALYST-C Jackie Primary Care Provider [phone] Dr. Paulie Montaño Attending Provider Dr. Paulie Montaño Referring Provider Richard Castro Unavailable Gray Quintana DO Primary Care Provider GRAY QUINTANA DO Primary Care Physician Vitaly GARCAI, ORDER ANALYST-C Jackie Referring Provider Gris GARCIA, ORDER ANALYST-C Angie Attending Provider Ronn GARCIA, ORDER ANALYST-C Yan Primary Care Provider Ronn GARCIA, ORDER ANALYST-C Yan Referring Provider Gray Quintana DO Primary Care Provider SHANNAN LOCKHART PA-C Attending Unavailable GRAY QUINTANA DO Primary Care Unavailable SHANNAN LOCKHART PA-C Attending Unavailable GRAY QUINTANA DO Primary Care Unavailable CARYN FRITZ, DR DOMINIQUE Almanza Attending GRAY Talbert DO Primary Care Unavailable CARYN FRITZ, DR DOMINIQUE Almanza Attending GRAY Talbert DO Primary Care Unavailable Anthony ENTERPRISE INFRASTRUCTURE ARCHITECT.Christina FARRELL Unavailable [facility] ENTERPRISE INFRASTRUCTURE ARCHITECT.JAMIAmelia Unavailable CARYN FRITZ, DR DOMINIQUE Almanza Attending GRAY Talbert DO Primary Care Unavailable GRAY QUINTANA DO Primary Care Unavailable CARYN FRITZ, DR DOMINIQUE Almanza Attending GRAY Talbert DO Primary Care Unavailable CARYN FRITZ, DR DOMINIQUE Almanza Attending CHRISTINA Castillo Referring Unavailable QUINTANA, GRAY Estella Primary Care Unavailable Stephanie ENTERPRISE INFRASTRUCTURE ARCHITECT.JAMIAriela Unavailable QUINTANA, GRAY Estella Referring Unavailable QUINTANA, GRAY Estella Primary Care Unavailable JASON FRANCOIS Attending Unavailable QUINTANA, GRAY Estella Primary Care Unavailable JASON FRANCOIS Referring Unavailable QUINTANA, GRAY Estella Primary Care Unavailable JASON FRANCOIS Referring Unavailable QUINTANA, GRAY Estella Primary Care Unavailable JASON FRANCOIS Referring Unavailable QUINTANA, GRAY Estella Primary Care Unavailable BRI MOELLER Referring Unavailable QUINTANA, GRAY L Primary Care Unavailable DOMINICK HERNANDEZ Attending Unavailable YAN MONTAÑO Referring Unavailable QUINTANA, GRAY Estella Primary Care Unavailable YAN MONTAÑO Referring Unavailable QUINTANA, GRAY Estella Primary Care Unavailable CHERELLE MO Referring Unavailable QUINTANA, GRAY Estella Primary Care Unavailable JEFFREY HEDRICK Attending Unavailable JASON FRANCOIS Referring Unavailable QUINTANA, GRAY Estella Primary Care Unavailable CHRISTINA ANTHONY Attending Unavailabl e QUINTANA, GRAY Estella Primary Care Unavailable YAN MONTAÑO Attending Unavailable QUINTANA, GRAY Estella Primary Care Unavailable QUINTANA, GRAY Estella Primary Care Unavailable CHRISTINA ANTHONY Attending Unavailabl e QUINTANA, GRAY Estella Primary Care Unavailable CHRISTINA ANTHONY Referring Unavailabl e QUINTANA, GRAY Estella Primary Care Unavailable CHRISTINA ANTHONY Referring Unavailabl e QUINTANA, GRAY Estella Primary Care Unavailable CHRISTINA ANTHONY Attending Unavailabl e QUINTANA, GRAY L Primary Care Unavailable QUINTANA, GRAY L Attending Unavailable QUINTANA, GRAY L Primary Care Unavailable QUINTANA, GRAY L Referring Unavailable QUINTANA, GRAY L Primary Care Unavailable QUINTANA, GRAY L Referring Unavailable QUINTANA, GRAY L Primary Care Unavailable MADISON TURNER Attending Unavailable QUINTANA, GRAY L Primary Care Unavailable JASON FRANCOIS Referring Unavailable QUINTANA, GRAY L Primary Care Unavailable CHRISTINA ANTHONY Referring Unavailabl e QUINTANA, GRAY L Primary Care Unavailable QUINTANA, GRAY L Primary Care Unavailable WILLIAMS CABRERA Attending Unava ilable CHRISTINA ANTHONY Referring Unavailabl e CHRISTINA ANTHONY Attending Unavailabl e QUINTANA, GRAY L Primary Care Unavailable QUINTANA, GRAY L Primary Care Unavailable AMELIA TROTTER Attending Unavailable QUINTANA, GRAY L Primary Care Unavailable HAAGENCAROLYN Referring Unavailable QUINTANA, GRAY L Primary Care Unavailable HAAGEN, CAROLYN Referring Unavailable QUINTANA, GRAY L Primary Care Unavailable BRI MOELLER Attending Unavailable QUINTANA, GRAY L Referring Unavailable QUINTANA, GRAY L Primary Care Unavailable CHERELLE MO Attending Unavailable QUINTANA, GRAY L Referring Unavailable QUINTANA, GRAY L Primary Care Unavailable QUINTANA, GRAY L Attending Unavailable QUINTANA, GRAY L Primary Care Unavailable QUINTANA, GRAY L Referring Unavailable QUINTANA, GRAY L Primary Care Unavailable QUINTANA, GRAY L Referring Unavailable QUINTANA, GRAY L Primary Care Unavailable CHRISTINA ANTHONY Referring Unavailabl e QUINTANA, GRAY L Primary Care Unavailable YARELY TIJERINA Attending Unavailable QUINTANA, GRAY L Primary Care Unavailable YAN MONTAÑO Attending Unavailable HAAGEN, CAROLYN Referring Unavailable QUINTANA, GRAY L Primary Care Unavailable HAAGEN, CAROLYN Referring Unavailable QUINTANA, GRAY L Primary Care Unavailable QUINTANA, GRAY L Referring Unavailable QUINTANA, GRAY L Primary Care Unavailable QUINTANA, GRAY L Referring Unavailable QUINTANA, GRAY L Primary Care Unavailable MARTÍN WINSLOW Attending Unavailable QUINTANA, GRAY L Primary Care Unavailable Quintana Dr. Gray LANDRUM Primary Care Provider Dr. Jordin Najera DO Emergency Provider Amador Earl Referring Unavailable Jordin Infante Attending Unavailable Gray Quintana Primary Care Unavailable QuintanaGray Primary Care Unavailable Louie Dias Attending Unavailable Rosita Alonzo Consulting Unavailable Rosita Alonzo Admitting Unavailable Louie Dias Consulting Unavailable QuintanaGray Primary Care Unavailable Jordin Najera Attending Unavailable Louie Dias Attending Unavailable Rosita Alonzo Consulting Unavailable Rosita Alonzo Admitting Unavailable Quintana, Gray Primary Care Unavailable Rosita Alonzo Attending Unavailable Guilherme Brumfield Attending Unavailable Allergies Allergy Classification Reported Allergen(s) Allergy Type Date of Onset Reaction(s) Facility Aminoketones (1 source) buPROPion Drug Allergy 3 [facility] Mold Extract (1 source) Mold Extract Drug Allergy Unknown [facility] (17 sources) Mold Extract Drug Allergy Unknown [facility] (18 sources) seasonal enviromental Allergy to substance typical [facility] (20 sources) buPROPion; Translations: [BUPROPION] Drug Allergy 3 [facility] (20 sources) Aspirin; Translations: [ASPIRIN] Drug Allergy 5 [facility] (20 sources) Ibuprofen; Translations: [IBUPROFEN] Drug Allergy 5 [facility] Medications Current Medications Medication Drug Class(es) Dates Sig (Normalized) Sig (Original) acetaminophen 325 mg / HYDROcodone bitartrate 5 mg oral tablet (4 sources) Opioid Agonist Start: 01-15-2025 take 1 tablet by mouth every six hours as needed for pain Hydrocodone-Acetamin ophen 5-325 mg tablet Active 1 {tbl} PO EVERY 6 HOURS NEEDED as needed for Pain 10 3 0 January 15, 2025 Diverticulitis of sigmoid colon Start: 10-12-2023 End: 10-17-2023 take 1 tablet by mouth every six hours as needed for pain HYDROcodone-acetaminophen (NORCO) 5-325 mg per tablet Indications: Left Achilles tendinitis Take 1 tablet by mouth every 6 hours as needed for pain for up to 5 days. 20 tablet 0 10/12/2023 10/17/2023 Active Start: 04-25-2023 End: 06-11-2024 Hydrocodone-Acetaminophen 5- 325 mg tablet Discontinued 1 {tbl} PO EVERY 4 HOURS NEEDED as needed for Pain 10 2 0 April 25, 2023 June 11, 2024 6:55pm Colitis Noninfective gastroenteritis and colitis, unspecified albuterol MDI (90 mcg/inh) CFC free inhalation aerosol (13 sources) Start: 10-21-2021 take 2 puff(s) by inhalation every four hours as needed for wheezing albuterol MDI (90 mcg/inh) CFC free inhalation aerosol 2 puff(s), Inhalation, q4h, PRN as needed for wheezing, # 18 gram(s), 0 Refill(s), Pharmacy: [facility]/pharmacy #[id number], COVID-19 virus detected, 165.3, cm, 10/21/21 9:54:00 EDT, Height Start Date: 10/21/21 Status: Ordered amoxicillin 500 mg oral capsule (1 source) Penicillin-class Antibacterial Start: 11-02-2021 End: 11-09-2021 amoxicillin 500 mg oral capsule Dose : 500 mg = 1 cap(s), Oral, TID, X 7 day(s), # 21 cap(s), 0 Refill(s), 11/09/21 14:03:00 EDT, Pharmacy: [id number], 165.1, cm, 11/02/21 13:34:00 EDT, Height Start Date: 11/02/21 Stop Date: 11/09/21 Status: Ordered Ascorbic Acid (13 sources) Vitamin C Start: 10-21-2021 Vitamin C qDay, 0 Refill(s) Start Date: 10/21/21 Status: Ordered atorvastatin 40 mg oral tablet (7 sources) HMG-CoA Reductase Inhibitor Start: 06-13-2024 take 1 tablet by mouth at bedtime Atorvastatin 40 mg tablet Active 40 mg PO AT BEDTIME 30 30 2 June 13, 2024 1:00am Start: 06-07-2022 atorvastatin 1 0 mg oral tablet Dose : 10 mg = 1 tab(s), Oral, qDay, # 30 tab(s), 2 Refill(s), Pharmacy: [id number], 162.6, cm, 05/31/22 10:21:00 EST, Height Start Date: 06/07/22 Status: Ordered azelastine 205.5 mcg/inh (0.15%) nasal spray (1 source) Start: 04-12-2021 azelastine 205 .5 mcg/inh (0.15%) nasal spray Dose = 1 spray(s), Intranasal, BID, 0 Refill(s) Start Date: 04/12/21 Status: Ordered carvedilol 6.25 mg oral tablet (20 sources) alpha-Adrenergi c Ede, beta-Adrenergic Ede Start: 06-13-2024 End: 10-03-2024 take 1 tablet by mouth twice daily at mealtime carvedilol (COREG) 6.25 mg tablet Take 6.25 mg by mouth two times a day with meals. 06/13/2024 10/03/2024 Discontinued Start: 06-13-2024 Carvedilol 6.2 5 mg Tablet Active 6.25 mg PO TWICE DAILY WITH MEALS 60 30 2 June 13, 2024 1:00am Hold for heart less than 50 or systolic blood pressure less than 100 mmHg. cephalexin 500 mg oral capsule (1 source) Cephalosporin Antibacterial Start: 06-23-2021 End: 06-30-2021 cephalexin 500 mg oral capsule Dose : 500 mg = 1 cap(s), Oral, q8h, X 7 day(s), # 21 cap(s), 0 Refill(s), 06/30/21 13:43:00 EST, Pharmacy: [id number], 164.6, cm, 05/31/21 10:46:00 EST, Height, 102.4, kg, 05/31/21 10:46:00 EST, Dosing Weight Start Date: 06/23/21 Stop Date: 06/30/21 Status: Ordered ciprofloxacin 500 mg oral tablet (2 sources) Quinolone Antimicrobial Start: 01-15-2025 take 1 tablet by mouth twice daily Ciprofloxacin Hcl (Cipro) 500 mg tablet Active 500 mg PO TWICE A DAY 14 7 January 15, 2025 12:00am Start: 04-25-2023 End: 06-11-2024 take 1 tablet by mouth twice daily Ciprofloxacin Hcl 500 mg tablet Discontinued 500 mg PO TWICE A DAY 14 0 April 25, 2023 1:00am June 11, 2024 6:55pm Fish Oils (16 sources) Start: 10-13-2020 take 1 capsule by mouth once daily omega-3 fish oil 1000 mg oral capsule mg = cap(s), Oral, qDay, 0 Refill(s) Start Date: 10/13/20 Status: Ordered fluticasone propionate 0.05 mg/actuat metered dose nasal spray (20 sources) Corticosteroid Start: 06-18-2024 End: 05-15-2025 take 2 spray(s) nasal route once daily fluticasone (FLONASE ALLERGY RELIEF) 50 mcg/actuation nasal spray Indications: Nasal congestion Use 2 Sprays in each nostril once daily. 18.2 mL 5 06/18/2024 05/15/2025 Active Start: 04-05-2021 End: 06-11-2024 Fluticasone Propionate 50 mc g/actuation spray,suspension Discontinued 1 NMA INTRANASAL TWICE A DAY as needed for nasal congestion 16 3 April 14, 2022 4:17pm June 11, 2024 6:53pm Start: 04-05-2021 End: 04-14-2022 Fluticasone Propionate Disco ntinued 1 SPRAY INTRANASAL TWICE A DAY January 02, 2022 10:09am April 14, 2022 3:18pm fluticasone proprionate NASAL 50 mcg/ spray (1 source) Start: 04-12-2021 take 1 dose nasal route twice daily fluticasone proprionate NASAL 50 mcg/ spray Dose = 1 spray(s), Nostril, each, BID, 0 Refill(s) Start Date: 04/12/21 Status: Ordered furosemide 20 mg oral tablet (20 sources) Loop Diuretic Start: 08-24-2023 End: 10-03-2024 take 1 tablet by mouth once daily furosemide (LASIX) 20 mg tablet Indications: Hypertension, essential , CKD (chronic kidney disease) stage 2, GFR 60-89 ml/min , Pedal edema , Wheezing , SOB (shortness of breath) Take 1 tablet by mouth once daily. For leg swelling 90 tablet 1 01/23/2024 10/03/2024 Discontinued Start: 07-31-2023 End: 08-07-2023 take 1 tablet by mouth once daily furosemide (LASIX) 40 mg tablet Indications: Pedal edema , SOB (shortness of breath) , CKD (chronic kidney disease) stage 2, GFR 60-89 ml/min , Hypertension, essential Take 1 tablet by mouth once daily for 4 days. 4 tablet 07/31/2023 08/07/2023 Discontinued Comment on above: Take 1 tablet by arsalan th once daily for 4 days. Take 1 tablet by arsalan th once daily. [id number]-[id number] (COSAMIN AVOCA, WITH BOSWELLIA,) 500-500-33.3-70 mg tab (20 sources) End: 10-03-2024 take 1 tablet by mouth twice daily as needed olfdbqseujy-jlh-[id number] (COSAMIN AVOCA, WITH BOSWELLIA,) 500-500-33.3-70 mg tab Indications: Ulcerative colitis without complications, unspecified location (HCC) Take 1 tablet by mouth twice daily as needed. 10/03/2024 Discontinued take 1 tablet by arsalan th twice daily as needed cnwatrydnur-[id number] (COSAMIN AVOCA, WITH BOSWELLIA,) 500-500-33.3-70 mg tab Indications: Ulcerative colitis without complications, unspecified location (HCC) Take 1 tablet by mouth twice daily as needed. Active take 1 tablet by arsalan th twice daily as needed jjuolmsporj-fhb-[id number] (COSAMIN AVOCA, WITH BOSWELLIA,) 500-500-33.3-70 mg tab Indications: Ulcerative colitis without complications, unspecified location (HCC) Take 1 tablet by mouth twice daily as needed. 0 Active Comment on above: Take 1 tablet by arsalan th twice daily as needed. 12 hr guaiFENesin 1200 mg extended release oral tablet (1 source) Start: 12-15-19 End: 12-29-19 Mucinex Max Strength 1200 mg oral tablet, extended release Dose : 1,200 mg = 1 tab(s), Oral, q12h, X 14 day(s), # 28 tab(s), 0 Refill(s), 12/28/21 6:09:00 EDT, Pharmacy: [id number], 163, cm, 12/07/21 13:38:00 EDT, Height Start Date: 12/14/21 Stop Date: 12/28/21 Status: Ordered hydroCHLOROthiazide 12.5 mg / losartan potassium 50 mg oral tablet (20 sources) Thiazide Diuretic, Angiotensin 2 Receptor Ede Start: 06-18-19 End: 03-04-20 take 1 tablet by mouth twice daily losartan-hydroCHL OROthiazide (HYZAAR) 50-12.5 mg per tablet Indications: Hypertension, essential Take 1 tablet by mouth two times a day. 60 tablet 2 12/04/2024 03/04/2025 Active Start: 08-07-2023 End: 11-05-2023 take 1 tablet by mouth twice daily losartan-hydroCHLOROthiazide (HYZAAR) 50-12.5 mg per tablet Indications: Hypertension, essential Take 1 tablet by mouth two times a day. 60 tablet 2 08/07/2023 11/05/2023 Active Start: 12-15-2021 take 1 tablet by arsalan th once daily Losartan-Hydrochlorothiazide Active 1 TA BLET PO DAILY December 14, 2021 11:00pm Start: 06-23-2021 End: 06-18-2024 Losartan-Hydrochlorothiazide 50-12.5 mg tablet Active 1 {tbl} PO DAILY December 15, 2021 12:00am Start: 12-17-2018 End: 12-15-2021 take 1 tablet by mouth once daily hydrochlorothiazide-losartan 12.5-100 mg oral tablet Dose = 1 tab(s), Oral, qDay, # 90 tab(s), 3 Refill(s), Pharmacy: [id number], 163.5, cm, 10/13/20 13:19:00 EDT, Height, kg, 10/13/20 13:19:00 EDT, Dosing Weight Start Date: 11/24/20 Stop Date: 11/19/21 Status: Ordered Start: 12-17-2018 End: 12-15-2021 take 1 tablet by mouth once daily Losartan-Hydrochlorothiazide Discontinue d 1 TABLET PO DAILY December 16, 2018 11:00pm December 15, 2021 7:12am Comment on above: Take 1 tablet by arsalan th once daily. 1 daily in the morning Take 1 tablet by arsalan th two times a day. 1 daily in the morning Take 1 tablet by arsalan th two times a day. Take 1 tablet by arsalan th once daily. iv contrast (will be provided with radiology test) (5 sources) Start: 10-30-2024 End: 10-31-2024 iv contrast (will be provided with radiology test) MRI PANC/TRISH Inject, intravenously, once for 1 dose. No IV access, insert saline lock prior to the beginning of sedation, infusion, injection of imaging exam. Discontinue saline lock post exam. If Pt. has a central line or IVAD, may access for administration according to line specific nursing protocol. Once exam is complete flush line and de-access according to line specific nursing protocol in the MR contrast administration guidelines link. 1 each 10/30/2024 10/31/2024 Active Start: 12-03-2023 End: 12-04-2023 iv contrast (will be provide d with radiology test) Indications: SOB (shortness of breath) CT Chest PE -Inject, intravenously, once for 1 dose.No IV access, insert saline lock prior to the beginning of sedation, infusion, injection of imaging exam. Discontinue saline lock post exam. If Pt. has a central line or IVAD, may access for administration according to line specific nursing protocol. Once exam is complete flush line and de-access according to line specific nursing protocol in the CT contrast administration guidelines link. 1 Each 12/03/2023 12/04/2023 Start: 12-03-2023 End: 12-04-2023 iv contrast (will be provide d with radiology test) Indications: SOB (shortness of breath) CT Chest PE -Inject, intravenously, once for 1 dose.No IV access, insert saline lock prior to the beginning of sedation, infusion, injection of imaging exam. Discontinue saline lock post exam. If Pt. has a central line or IVAD, may access for administration according to line specific nursing protocol. Once exam is complete flush line and de-access according to line specific nursing protocol in the CT contrast administration guidelines link. 1 Each 0 12/03/2023 12/04/2023 Active Lacto No.19-Ddykrn-Yvv-Larch (Women's Probiotic) 25B cell-25B cell-50 mg capsule (8 sources) Start: 04-04-2021 Lacto No.76-Bi urix-Ext-Odltl (Women's Probiotic) 25B cell-25B cell-50 mg capsule Active CAP PO April 04, 2021 2:00pm Start: 04-04-2021 End: 06-11-2024 Lacto No.85-Ejnequ-Xzl-Larch (Women's Probiotic) 25B cell-25B cell-50 mg capsule Discontinued NMA PO April 04, 2021 1:00am June 11, 2024 6:55pm Start: 04-04-2021 Lacto No.76-Bi pepf-Irr-Qpegt (Women's Probiotic) 25B cell-25B cell-50 mg capsule Active CAP PO April 04, 2021 12:00am Start: 04-04-2021 Lacto No.76-Bi mzve-Ida-Kwtxr (Women's Probiotic) 25B cell-25B cell-50 mg capsule Active CAP PO April 04, 2021 1:00am metoprolol tartrate 25 mg oral tablet (1 source) beta-Adrenergic Ede Start: 05-13-2021 End: 06-12-2021 metoprolol succinate 25 mg oral TABLET extended release Dose : 25 mg = 1 tab(s), Oral, qPM, Do not crush or chew (controlled release), # 30 tab(s), 0 Refill(s), Pharmacy: [id number], Hypertension, 162.5, cm, 04/19/21 14:35:00 EST, Height, kg, 04/19/21 14:35:00 EST, Dosing Weight Start Date: 05/13/21 Stop Date: 06/12/21 Status: Ordered metroNIDAZOLE 500 mg oral tablet (2 sources) Nitroimidazole Antimicrobial Start: 01-15-2025 take 1 tablet by mouth twice daily Metronidazole 500 mg tablet Active 500 mg PO TWICE A DAY 14 7 0 January 15, 2025 12:00am Start: 04-25-2023 End: 06-11-2024 take 1 tablet by mouth every eight hours Metronidazole 500 mg tablet Discontinued 500 mg PO Q8H 21 7 0 April 25, 2023 1:00am June 11, 2024 6:55pm nitrofurantoin, macrocrystals 25 mg / nitrofurantoin, monohydrate 75 mg oral capsule (7 sources) Nitrofuran Antibacterial Start: 01-14-2025 End: 01-21-2025 take 1 capsule by mouth twice daily at mealtime nitrofurantoin monohydrate and macrocrystal (MACROBID) 100 mg capsule Take 1 capsule by mouth two times a day with meals for 7 days. 14 capsule 01/14/2025 01/21/2025 Active Start: 12-29-2024 End: 01-01-2025 take 1 capsule by mouth twice daily nitrofurantoin monohydrate and macrocrystal (MACROBID) 100 mg capsule Indications: Dysuria Take 1 capsule by mouth two times a day for 3 days. 6 capsule 12/29/2024 01/01/2025 Start: 12-06-2022 End: 12-11-2022 take 1 capsule by mouth twice daily nitrofurantoin monohydrate and macrocrystal (MACROBID) 100 mg capsule Indications: Recurrent UTI (urinary tract infection) Take 1 capsule by mouth twice daily for 5 days. 10 capsule 0 12/06/2022 12/11/2022 Active Comment on above: Take 1 capsule by [facility] twice daily for 5 days. ondansetron 4 mg disintegrating oral tablet (2 sources) Serotonin-3 Receptor Antagonist Start: 01-16-20 take 1 tablet by mouth every six hours as needed for nausea and vomiting Ondansetron 4 mg tablet,disintegrati ng Active 4 mg PO EVERY 6 HOURS as needed for nausea and vomiting 10 January 15, 2025 12:00am Start: 04-25-2023 End: 06-11-2024 take 1 tablet by mouth every eight hours as needed for nausea Ondansetron 4 mg tablet,disintegrating Discontinued 4 mg PO EVERY 8 HOURS NEEDED as needed for Nausea 10 0 April 25, 2023 1:00am June 11, 2024 6:53pm Spirometers and Accessories bushra (20 sources) Start: 04-06-2023 Spirometers an d Accessories bushra Indications: Lung nodule, multiple , Chronic obstructive pulmonary disease, unspecified COPD type (HCC) 1 Each as directed. Copd flare up, dyspnea, wheezing 1 Each 04/06/2023 Active Start: 04-06-2023 Spirometers an d Accessories bushra Indications: Lung nodule, multiple , Chronic obstructive pulmonary disease, unspecified COPD type (HCC) 1 Each as directed. Copd flare up, dyspnea, wheezing 1 Each 0 04/06/2023 Active Comment on above: 1 Each as directed. Copd flare up, dyspnea, wheezing traMADol hydrochloride 50 mg oral tablet (8 sources) Opioid Agonist Start: 12-04-2024 End: 12-11-2024 take 1 tablet by mouth every eight hours as needed for pain traMADol (ULTRAM) 50 mg tablet Indications: Left elbow pain , Neck pain , Mid back pain Take 1 tablet by mouth every 8 hours as needed for pain for up to 7 days. 21 tablet 12/04/2024 12/11/2024 Active Start: 10-03-2024 End: 10-10-2024 take 1 tablet by mouth every six hours as needed for pain traMADol (ULTRAM) 50 mg tablet Indications: Chronic midline low back pain with bilateral sciatica , Spinal stenosis of lumbar region without neurogenic claudication Take 1 tablet by mouth every 6 hours as needed for pain for up to 7 days. 24 tablet 10/03/2024 10/10/2024 Active vitamin D 5,000 (16 sources) Start: 06-09-2020 vitamin D 5,00 0 vitamin D 5,000, 0 Refill(s), 107.2 Start Date: 06/09/20 Status: Ordered Completed/Discontinued Medications Medication Drug Class(es) Dates Sig (Normalized) Sig (Original) [id number] 200 actuat albuterol 0.09 mg/actuat metered dose inhaler (20 sources) beta2-Adrenergic Agonist Start: 04-07-2023 End: 09-06-2023 take 2 puff(s) by inhalation every four hours as needed for wheezing albuterol HFA (VENTOLIN HFA) 90 mcg/actuation inhaler Indications: Chronic obstructive pulmonary disease, unspecified COPD type (HCC) , Acute bronchitis with chronic obstructive pulmonary disease (COPD) (HCC) (HCC) Inhale 2 Puffs as instructed every 4 hours as needed for wheezing/shortness of breath. 2 Each 2 04/07/2023 09/06/2023 Discontinued Start: 02-23-2021 End: 06-11-2024 Albuterol Sulfate 90 mcg/act uation HFA aerosol inhaler Discontinued 2 NMA INHALATION Q4H as needed for shortness of breath or wheezing 8.5 0 March 23, 2023 1:55pm June 11, 2024 6:53pm administer with spacer Start: 02-23-2021 End: 03-23-2023 take 1 puff(s) by inhalation every four hours Albuterol Sulfate Active 2 PUFF INHALATION Q4H 8.5 March 23, 2023 12:55pm administer with spacer Comment on above: Inhale 2 Puffs as in structed every 4 hours as needed for wheezing/shortness of breath. apixaban 5 mg oral tablet (20 sources) Factor Xa Inhibitor Start: 06-13-19 End: 09-24-19 take 1 tablet by mouth twice daily apixaban (ELIQUIS) 5 mg tab(s) Take 1 tablet by mouth two times a day. 60 tablet 2 06/25/2024 07/15/2024 Discontinued Start: 06-13-2024 take 2 tablets by mo uth twice daily, then take 1 tablet by mouth twice daily Apixaban (Eliquis Dvt-Pe Treat 30d Start) 5 mg (74 tabs) tablets,dose pack Active 5 mg PO TWICE A DAY 74 0 June 13, 2024 1:00am 10 mg (2 tabs) twice daily for 7 days till 06/19/24 and then twice daily to continue azelastine hydrochloride 0.206 mg/actuat metered dose nasal spray (8 sources) Histamine-1 Receptor Antagonist Start: 04-05-2021 End: 01-02-2022 Azelastine 205.5 mcg (0.15 %) spray,non-aerosol Discontinued 1 NMA INTRANASAL TWICE A DAY 26 04April 05, 2021 1:00am January 02, 2022 11:09am Chronic obstructive pulmonary disease, unspecified administer into each nostril Start: 04-05-2021 End: 01-02-2022 take 1 spray(s) nasal route twice daily Azelastine Discontinued 1 SPRAY INTRANASAL TWICE A DAY April 05, 2021 12:00am January 02, 2022 10:09am administer into each nostril azelastine hydrochloride 0.137 mg/actuat / fluticasone propionate 0.05 mg/actuat metered dose nasal spray (8 sources) Corticosteroid, Histamine-1 Receptor Antagonist Start: 04-04-2021 End: 04-05-2021 Azelastine-Fluticasone 137-50 mcg/spray spray,non-aerosol Discontinued 1 NMA INTRANASAL TWICE A DAY 17 11April 04, 2021 1:00am April 05, 2021 10:25am administer into each nostril Start: 04-04-2021 End: 04-05-2021 take 1 spray(s) nasal route twice daily Azelastine-Fluticasone Discontinued 1 SPRAY INTRANASAL TWICE A DAY April 04, 2021 12:00am April 05, 2021 9:25am administer into each nostril azithromycin 250 mg oral tablet (6 sources) Macrolide Antimicrobial Start: 12-15-2021 End: 01-02-2022 Azithromycin (Zithromax Z-Rebecca) 250 mg tablet Discontinued 0 PO .COMPLEX 6 0 December 15, 2021 12:00am January 02, 2022 11:08am For 250 mg dose pack: take 500 mg today (day 1), then 250 mg for 4 days (days 2-5) PO Budesonide-Formoterol (6 sources) Corticosteroid, beta2-Adrenergic Agonist Start: 12-15-2021 End: 01-09-2022 Budesonide-Formoterol (Symbicort) 160-4.5 mcg/actuation HFA aerosol inhaler Discontinued 2 NMA INHALATION TWICE A DAY 10.2 3 December 15, 2021 12:00am January 09, 2022 12:33pm Start: 12-15-2021 End: 01-09-2022 take 1 puff(s) by inhalation twice daily Budesonide-Formoterol (Symbicort) 160-4.5 mcg/actuation HFA aerosol inhaler Discontinued 2 PUFF INHALATION TWICE A DAY 10.2 December 14, 2021 11:00pm January 09, 2022 11:33am Start: 12-15-2021 take 1 puff(s) by in halation twice daily Budesonide-Formoterol (Symbicort) 160-4.5 mcg/actuation HFA aerosol inhaler Active 2 PUFF INHALATION TWICE A DAY 10.2 December 15, 2021 12:00am 24 hr buPROPion hydrochloride 150 mg extended release oral tablet (4 sources) Aminoketone Start: 12-27-2022 End: 03-27-2023 take 1 tablet by mouth once daily buPROPion XL (WELLBUTRIN XL) 150 mg 24 hr tablet Indications: Obesity, Class II, BMI 35-39.9 , Hypertension, essential , Anxiety and depression Take 1 tablet by mouth once daily. 90 tablet 0 12/27/2022 01/16/2023 Discontinued (Discontinued by Patient) Comment on above: Take 1 tablet by arsalan th once daily. Cinnamon Bark (20 sources) take 2400 mg by mouth twice daily cinnamon bark (CINNAMON ORAL) Take 2,400 mg by mouth twice daily. 0 Active Comment on above: Take 2,400 mg by arsalan th twice daily. cyclobenzaprine hydrochloride 10 mg oral tablet (20 sources) Muscle Relaxant Start: 11-28-2023 End: 12-29-2024 take 1 tablet by mouth every eight hours as needed cyclobenzaprine (FLEXERIL) 10 mg tablet Take 1 tablet by mouth three times a day as needed for pain. This can make you drowsy. 30 tablet 11/28/2023 12/29/2024 Discontinued (Course of therapy completed) dicyclomine hydrochloride 10 mg oral capsule (8 sources) Anticholinergic Start: 08-25-2019 End: 04-04-2021 take 1 capsule by mouth four times daily Dicyclomine 10 MG capsule Discontinued 10 mg PO 4 TIMES DAILY August 25, 2019 12:00am April 04, 2021 1:57pm escitalopram 5 mg oral tablet (8 sources) Serotonin Reuptake Inhibitor Start: 05-10-2022 End: 07-09-2022 escitalopram 5 mg oral tablet Dose : 5 mg = 1 tab(s), Oral, qDay, # 30 tab(s), 1 Refill(s), Pharmacy: [id number], Anxiety Depression, 162.6, cm, 05/10/22 10:24:00 EST, Height Start Date: 05/10/22 Stop Date: 07/09/22 Status: Ordered ezetimibe 10 mg oral tablet (4 sources) Dietary Cholesterol Absorption Inhibitor Start: 12-14-2021 End: 03-14-2022 Zetia 10 mg oral tablet Dose : 10 mg = 1 tab(s), Oral, qDay, # 30 tab(s), 2 Refill(s), Pharmacy: [id number], 163, cm, 12/07/21 13:38:00 EDT, Height Start Date: 12/14/21 Stop Date: 03/14/22 Status: Ordered famotidine 20 mg oral tablet (13 sources) Histamine-2 Receptor Antagonist Start: 04-04-2021 End: 06-05-2022 take 1 tablet by mouth twice daily Famotidine 20 mg tablet Discontinued 20 mg PO TWICE A DAY April 04, 2021 1:00am January 02, 2022 11:09am Fluad Quad (65yr up)(PF) 60 mcg (15 mcg x 4)/0.5mL IM syringe (flu vac (2 sources) Start: 02-23-2021 End: 02-23-2021 Fluad Quad (65yr up)(PF) 60 mcg (15 mcg x 4)/0.5mL IM syringe (flu vac Discontinued 60 MCG IM ONCE 0.5 February 23, 2021 7:10am February 23, 2021 7:43am gabapentin 100 mg oral capsule (5 sources) Anti-epileptic Agent Start: 04-26-2024 End: 05-26-2024 take 1 capsule by mouth three times daily gabapentin (NEURONTIN) 100 mg capsule Take 1 capsule by mouth three times a day for 30 days. 45 capsule 1 04/26/2024 05/26/2024 Discontinued (Discontinued by another Health Care Provider) hydroCHLOROthiazide 12.5 mg oral tablet (18 sources) Thiazide Diuretic Start: 03-10-2020 End: 01-16-2023 take 1 tablet by mouth once daily hydroCHLOROthiazide (HYDRODIURIL, ESIDRIX) 12.5 mg tablet Take 12.5 mg by mouth once daily. 0 03/10/2020 01/16/2023 Discontinued (Discontinued by another Health Care Provider) Comment on above: Take 12.5 mg by mout h once daily. hydrOXYzine hydrochloride 25 mg oral tablet (8 sources) Antihistamine Start: 05-31-2022 End: 07-30-2022 hydrOXYzine hydrochloride 25 mg oral tablet Dose : 25 mg = 1 tab(s), Oral, BID, PRN as needed for anxiety, # 45 tab(s), 1 Refill(s), Anxiety and depression, 162.6, cm, 05/31/22 10:21:00 EST, Height Start Date: 05/31/22 Stop Date: 07/30/22 Status: Ordered Lidocaine (1 source) Antiarrhythmic, Amide Local Anesthetic Start: 09-06-2021 End: 09-13-2021 lidocaine 4% topical cream Apply 1 kamille, Topical, TID, PRN as needed for pain, not to exceed 3 applications in 24 hours, # 30 gram(s), 0 Refill(s), Pharmacy: [id number], Cream, 165.3, cm, 06/28/21 9:52:00 EST, Height, 102.7 Start Date: 09/06/21 Stop Date: 09/13/21 Status: Ordered losartan potassium 50 mg oral tablet (20 sources) Angiotensin 2 Receptor Ede Start: 06-23-2021 End: 06-18-2024 take 1 tablet by mouth once daily Losartan 50 mg tablet Discontinued 50 mg PO DAILY December 15, 2021 12:00am January 02, 2022 11:10am Comment on above: Take 1 tablet by arsalan th once daily. 1 daily in the evening Take 50 mg by mouth once daily. 1 daily in the evening mesalamine 1200 mg delayed release oral tablet (20 sources) Aminosalicylate Start: 02-04-2024 End: 04-26-2024 take 1 tablet by mouth twice daily Mesalamine (LIALDA) 1.2 gram EC tablet Take 1.2 g by mouth two times a day. 02/04/2024 04/26/2024 Discontinued (Discontinued by another Health Care Provider) Start: 08-25-2019 End: 09-15-2019 Mesalamine With Cleansing Wi pe 4 GM/60 ML enema kit Discontinued 4 g RC AT BEDTIME 21 August 25, 2019 12:00am September 14, 2019 12:00am September 15, 2019 12:02am Start: 08-25-2019 End: 04-04-2021 Mesalamine 1.2 GM tablet,del ayed release (DR/EC) Discontinued 3 {tbl} PO DAILY 63 0 August 25, 2019 12:00am April 04, 2021 1:58pm End: 12-04-2024 take 1 capsule by mouth four times daily Mesalamine (PENTASA) 500 mg CR capsule Take 500 mg by mouth four times daily. 12/04/2024 Discontinued End: 07-03-2022 MESALAMINE ORAL Take by mout h. 0 07/03/2022 Discontinued Comment on above: Take by mouth. 24 hr metFORMIN hydrochloride 500 mg extended release oral tablet (2 sources) Biguanide Start: 2023 take 1 tablet by mouth once daily at dinner metFORMIN ER (GLUCOPHAGE XR) 500 mg 24 hr tablet Take 1 tablet by mouth daily with dinner. 90 tablet 1 07/09/2023 Active Comment on above: Take 1 tablet by arsalan th daily with dinner. methylPREDNISolone (10 sources) Corticosteroid Start: 2023 End: 2023 methylPREDNISolone (MEDROL, REBECCA,) 4 mg Dose-Pack Indications: Wheezing Follow dosing instructions, take with food. 21 tablet 08/24/2023 08/30/2023 Start: 08-24-2023 End: 08-30-2023 methylPREDNISolone (MEDROL, REBECCA,) 4 mg Dose-Pack Indications: Wheezing Follow dosing instructions, take with food. 21 tablet 0 08/24/2023 08/30/2023 Active Start: 08-25-2019 End: 05-07-2020 Methylprednisolone Discontin ued 0 TABLET PO DAILY August 25, 2019 6:23pm May 07, 2020 11:42am SEE PACKAGE INSTRUCTIONS Start: 08-25-2019 End: 05-07-2020 Methylprednisolone 4 mg tabl ets,dose pack Discontinued 0 {tbl} PO DAILY August 25, 2019 12:00am May 07, 2020 11:42am SEE PACKAGE INSTRUCTIONS Start: 08-25-2019 End: 05-07-2020 Methylprednisolone Discontin ued 0 TABLET PO DAILY August 24, 2019 11:00pm May 07, 2020 10:42am SEE PACKAGE INSTRUCTIONS Start: 08-25-2019 End: 05-07-2020 Methylprednisolone Discontin ued 0 TABLET PO DAILY August 25, 2019 12:00am May 07, 2020 11:42am SEE PACKAGE INSTRUCTIONS Comment on above: Follow dosing instru ctions, take with food. montelukast 10 mg oral tablet (7 sources) Leukotriene Receptor Antagonist Start: 01-10-20 End: 06-11-19 take 1 tablet by mouth once daily in the evening Montelukast 10 mg tablet Discontinued 10 mg PO EVERY EVENING 30 3 June 13, 2022 12:29pm June 11, 2024 6:53pm Smoking greater than 20 pack years Nicotine dependence, cigarettes, uncomplicated olmesartan medoxomil 40 mg oral tablet (18 sources) Angiotensin 2 Receptor Ede End: 01-17-20 23 take 1 tablet by mouth once daily olmesartan (BENICAR) 40 mg tablet Take 40 mg by mouth once daily. 0 01/16/2023 Discontinued (Not on Formulary) Comment on above: Take 40 mg by mouth once daily. predniSONE 10 mg oral tablet (20 sources) Start: 12-27-19 End: 04-26-20 take 4 tablets by mouth once daily, then take 3 tablets by mouth once daily, then take 2 tablets by mouth once daily, then take 1 tablet by mouth once daily predniSONE (DELTASONE) 10 mg tablet TAKE 4 TABS BY MOUTH DAILY X7 DAYS, 3 TABS DAILY X7 DAYS, 2 TABS DAILY X7 DAYS, 1 TAB DAILY X7 DAYS 12/27/2023 04/26/2024 Discontinued (Course of therapy completed) Start: 12-03-2023 End: 04-26-2024 take 2 tablets by mouth once daily predniSONE (DELTASONE) 20 mg tablet Indications: Chronic obstructive pulmonary disease, unspecified COPD type (HCC) Take 2 tablets by mouth once daily. 10 tablet 12/03/2023 04/26/2024 Discontinued (Course of therapy completed) Start: 04-25-2023 End: 06-11-2024 take 1 tablet by mouth twice daily Prednisone 20 mg tablet Discontinued 20 mg PO TWICE A DAY 14 April 25, 2023 1:00am June 11, 2024 6:53pm Start: 04-14-2022 End: 06-13-2022 take 3 tablets by mouth once daily at mealtime Prednisone 20 mg tablet Discontinued 60 mg PO daily 15 April 14, 2022 1:00am June 13, 2022 12:05pm administer with food or milk Start: 04-14-2022 End: 06-13-2022 take 60 mg by mouth once daily at mealtime Prednisone Discontinued 60 MG PO daily April 14, 2022 12:00am June 13, 2022 11:05am administer with food or milk Start: 03-14-2022 End: 03-16-2022 Deltasone 5 mg tab (TAPER) D ose : 5 mg = 1 tab(s), Oral, qDay, replacement tabs, # 2 tab(s), 0 Refill(s), Pharmacy: [id number], 163, cm, 03/09/22 10:53:00 EDT, Height Start Date: 03/14/22 Stop Date: 03/16/22 Status: Ordered Start: 12-15-2021 End: 12-20-2021 take 2 tablets by mouth once daily Prednisone 20 mg tablet Discontinued 40 mg PO DAILY 10 December 15, 2021 12:00am December 19, 2021 12:00am December 20, 2021 12:03am Start: 12-15-2021 End: 12-20-2021 take 40 mg by mouth once daily Prednisone Discontinued 40 MG PO DAILY 10 December 14, 2021 11:00pm December 19, 2021 11:03pm Start: 04-04-2021 End: 06-14-2021 take 3 tablets by mouth once daily at mealtime Prednisone 20 mg tablet Discontinued 60 mg PO daily 15 April 04, 2021 1:00am June 14, 2021 9:47am Smoking greater than 20 pack years Nicotine dependence, cigarettes, uncomplicated administer with food or milk Start: 04-04-2021 End: 06-14-2021 take 60 mg by mouth once daily at mealtime Prednisone Discontinued 60 MG PO daily April 04, 2021 12:00am June 14, 2021 8:47am administer with food or milk Start: 08-25-2019 End: 05-07-2020 take 4 tablets by mouth once daily, then take 3 tablets by mouth once daily, then take 2 tablets by mouth once daily, then take 1 tablet by mouth once daily Prednisone 10 MG tablet Discontinued 10 mg PO DIRECTED 35 August 25, 2019 12:00am May 07, 2020 11:42am Take 4 tablets daily for 4 days, then 3 daily for 3 days, then 2 daily for 3 days, then 1 a day for 4 days. Symbicort 80 mcg-4.5 mcg/inh Inhaler (12 sources) Start: 12-07-2021 End: 06-05-2022 take 1 dose by inhalation twice daily Symbicort 80 mcg-4.5 mcg/inh Inhaler Dose = 2 puff(s), Inhalation, BID, # 1 EA, 5 Refill(s), Pharmacy: [facility]/pharmacy #[id number], 163, cm, 12/07/21 13:38:00 EDT, Height Start Date: 12/07/21 Stop Date: 06/05/22 Status: Ordered warfarin sodium 5 mg oral tablet (15 sources) Vitamin K Antagonist Start: 07-15-2024 End: 09-23-2024 take 1 tablet by mouth once daily warfarin (COUMADIN) 5 mg tablet Take 1 tablet by mouth once daily. 30 tablet 1 07/15/2024 09/23/2024 Discontinued (Discontinued by another Health Care Provider) Problems Active Problems Problem Classification Problem Date Documented Da te Episodic/Chronic Abdominal hernia (18 sources) Hiatal hernia 10-21-2020 Episodic Administrative/social admission (2 sources) Patient encounter status; Translations: [Dietary counseling and surveillance] 03-12-2023 Episodic Anxiety disorders (10 sources) Anxiety; Translations: [Mixed anxiety and depressive disorder] 12-05-2018 Chronic Asthma (20 sources) Exacerbation of asthma; Translations: [Mild intermittent asthma] 03-15-2021 Chronic Biliary tract disease (20 sources) Adenomyomatosis of gallbladder; Translations: [Biliary calculus] Onset: 5 10-21-2020 Episodic Chronic kidney disease (20 sources) Chronic kidney disease stage 2; Translations: [Chronic kidney disease, stage 2 (mild)] Onset: 4 10-01-2020 Chronic Chronic obstructive pulmonary disease and bronchiectasis (20 sources) Chronic obstructive lung disease; Translations: [Chronic obstructive pulmonary disease, unspecified] Onset: Chronic Deficiency and other anemia (18 sources) Normocytic anemia 05-24-2020 Episodic Disorders of lipid metabolism (18 sources) Hyperlipidemia 06-08-2020 Chronic Diverticulosis and diverticulitis (2 sources) Diverticulitis of sigmoid colon; Translations: [Diverticulitis of large intestine without perforation or abscess without bleeding] Onset: 5 01-15-2025 Chronic Esophageal disorders (14 sources) Gastroesophageal reflux disease 12-07-2021 Chronic Essential hypertension (20 sources) Hypertensive disorder; Translations: [Essential (primary) hypertension] Onset: 3 12-05-2018 Chronic Gastrointestinal hemorrhage (2 sources) Hemorrhage of rectum and anus; Translations: [Hemorrhage of anus and rectum] Episodic Genitourinary symptoms and ill-defined conditions (10 sources) Microscopic hematuria; Translations: [Other microscopic hematuria] Onset: 5 12-27-2022 Episodic Lymphadenitis (18 sources) Axillary lymphadenopathy 06-30-2020 Episodic Comment on above: benign per mammogram 06/17 Nausea and vomiting (9 sources) Nausea; Translations: [Nausea] Onset: 5 10-09-2024 Episodic Noninfectious gastroenteritis (1 source) Colitis; Translations: [Noninfective gastroenteritis and colitis, unspecified] 05-03-2023 Episodic Nonmalignant breast conditions (18 sources) Breast lump 06-30-2020 Episodic Comment on above: Right and left breas t, benign per mammogram 06/17 Nutritional deficiencies (20 sources) Vitamin D deficiency; Translations: [Vitamin D deficiency, unspecified] Onset: 4 05-12-2020 Chronic Osteoarthritis (1 source) Osteoarthritis of left hip joint; Translations: [Unilateral primary osteoarthritis, left hip] 10-08-2024 Chronic Other acquired deformities (18 sources) Scoliosis deformity of spine 09-21-2020 Chronic Other aftercare (1 source) Post-discharge follow-up; Translations: [Encounter for follow-up examination after completed treatment for conditions other than malignant neoplasm] 06-18-2024 Episodic Other bone disease and musculoskeletal deformities (1 source) Idiopathic scoliosis of lumbar spine; Translations: [Other idiopathic scoliosis, lumbar region] 11-05-2024 Chronic Other bone disease and musculoskeletal deformities (1 source) Other idiopathic scoliosis, lumbar region; Translations: [Other idiopathic scoliosis, lumbar region] Onset: Chronic Other bone disease and musculoskeletal deformities (20 sources) Segmental and somatic dysfunction 12-05-2018 Episodic Other bone disease and musculoskeletal deformities (1 source) Costal chondritis; Translations: [Chondrocostal junction syndrome [Tietze]] 11-28-2023 Episodic Other bone disease and musculoskeletal deformities (2 sources) Disorder of skeletal system; Translations: [Disorder of bone, unspecified] 01-23-2024 Episodic Other circulatory disease (8 sources) H/O: hypertension; Translations: [Personal history of other diseases of the circulatory system] 05-07-2020 Episodic Other connective tissue disease (18 sources) Fibromyalgia 12-05-2018 Episodic Other connective tissue disease (18 sources) Subacromial bursitis of right shoulder 12-26-2018 Episodic Other connective tissue disease (2 sources) Left achilles tendonitis; Translations: [Achilles tendinitis, left leg] 10-12-2023 Episodic Other connective tissue disease (5 sources) Pain in right lower limb; Translations: [Pain in right leg] 07-28-2024 Episodic Other connective tissue disease (1 source) Pain in right leg; Translations: [Pain of right lower extremity] Onset: Episodic Other diseases of kidney and ureters (18 sources) Hydronephrosis 10-01-2020 Episodic Other diseases of veins and lymphatics (1 source) Peripheral venous insufficiency; Translations: [Venous insufficiency (chronic) (peripheral)] 09-23-2024 Episodic Other gastrointestinal disorders (18 sources) Abdominal mass 09-21-2020 Episodic Other gastrointestinal disorders (18 sources) Mass of pancreas 10-01-2020 Episodic Other gastrointestinal disorders (1 source) Diarrhea; Translations: [Diarrhea, unspecified] Episodic Other gastrointestinal disorders (1 source) Heartburn; Translations: [Heartburn] 04-30-2024 Episodic Other gastrointestinal disorders (2 sources) Diarrhea, unspecified; Translations: [Diarrhea, unspecified] Onset: Episodic Other liver diseases (18 sources) Steatosis of liver 10-01-2020 Chronic Other lower respiratory disease (20 sources) Dyspnea; Translations: [Shortness of breath] 02-17-2020 Episodic Other lower respiratory disease (18 sources) Persistent cough 02-17-2020 Episodic Other lower respiratory disease (18 sources) Respiratory symptom 03-15-2021 Episodic Other lower respiratory disease (8 sources) Chronic cough; Translations: [Chronic cough] 02-23-2021 Episodic Other lower respiratory disease (1 source) Nodule of lung; Translations: [Solitary pulmonary nodule] 04-25-2023 Episodic Other lower respiratory disease (4 sources) Wheezing; Translations: [Wheezing] 09-06-2023 Episodic Other lower respiratory disease (1 source) Chest pain; Translations: [Chest pain on breathing] 12-04-2023 Episodic Other lower respiratory disease (1 source) Hypoxemia; Translations: [Hypoxemia] 02-28-2024 Episodic Other nervous system disorders (1 source) Other chronic pain; Translations: [Chronic midline low back pain with bilateral sciatica] Onset: Chronic Other non-traumatic joint disorders (20 sources) Arthritis of knee 09-21-2020 Chronic Other non-traumatic joint disorders (1 source) Allergic arthritis of the hand; Translations: [Other specified arthritis, unspecified hand] 09-10-2023 Chronic Other non-traumatic joint disorders (18 sources) Knee pain 09-16-2020 Episodic Other non-traumatic joint disorders (2 sources) Pain in right shoulder; Translations: [Pain in joint, shoulder region] 12-03-2023 Episodic Other non-traumatic joint disorders (2 sources) Pain in elbow; Translations: [Pain in left elbow] 12-04-2024 Episodic Other non-traumatic joint disorders (1 source) Pain in left elbow; Translations: [Left elbow pain] Onset: 5 Episodic Other nutritional; endocrine; and metabolic disorders (18 sources) Hypoalbuminemia 05-12-2020 Chronic Other nutritional; endocrine; and metabolic disorders (20 sources) Obese class II; Translations: [Obesity, unspecified] Onset: Chronic Other nutritional; endocrine; and metabolic disorders (4 sources) Morbid obesity; Translations: [Morbid (severe) obesity due to excess calories] 02-25-2024 Chronic Other nutritional; endocrine; and metabolic disorders (1 source) Body mass index 40+ - severely obese; Translations: [Body mass index (BMI) 40.0-44.9, adult] 09-23-2024 Chronic Other nutritional; endocrine; and metabolic disorders (1 source) Morbid (severe) obesity due to excess calories; Translations: [Morbid obesity (HCC)] Onset: 5 Chronic Other nutritional; endocrine; and metabolic disorders (1 source) Body mass index (BMI) 40.0-44.9, adult; Translations: [BMI 40.0-44.9, adult (HCC)] Onset: Chronic Other nutritional; endocrine; and metabolic disorders (1 source) History of iron deficiency; Translations: [Personal history of other endocrine, nutritional and metabolic disease] Episodic Other upper respiratory disease (2 sources) Nasal congestion; Translations: [Nasal congestion] 06-18-2024 Episodic Other upper respiratory infections (20 sources) Upper respiratory infection; Translations: [Viral upper respiratory tract infection] 01-09-2020 Episodic Prolapse of female genital organs (16 sources) Cystocele 06-28-2021 Chronic Regional enteritis and ulcerative colitis (20 sources) Ulcerative colitis; Translations: [Acute ulcerative colitis] Onset: 3 12-15-2019 Chronic Residual codes; unclassified (20 sources) Obstructive sleep apnea syndrome; Translations: [Obstructive sleep apnea (adult) (pediatric)] 06-27-2021 Chronic Residual codes; unclassified (5 sources) Obstructive sleep apnea (adult) (pediatric); Translations: [Obstructive sleep apnea (adult)(pediatric)] Onset: 5 Chronic Residual codes; unclassified (2 sources) Hypoxia; Translations: [Idiopathic sleep related nonobstructive alveolar hypoventilation] 05-26-2024 Chronic Residual codes; unclassified (1 source) Idiopathic sleep related nonobstructive alveolar hypoventilation; Translations: [Nocturnal hypoxemia] Onset: Chronic Residual codes; unclassified (18 sources) Peripheral edema 10-21-2020 Episodic Residual codes; unclassified (20 sources) Postmenopausal state; Translations: [Asymptomatic menopausal state] 06-08-2020 Episodic Residual codes; unclassified (8 sources) H/O Spinal surgery; Translations: [Other specified postprocedural states] 05-07-2020 Episodic Residual codes; unclassified (1 source) Difficulty sleeping ; Translations: [Sleep deprivation] 06-18-2024 Episodic Residual codes; unclassified (2 sources) Family history of malignant neoplasm of digestive organs; Translations: [Family history of malignant neoplasm of digestive organs] Onset: Episodic Residual codes; unclassified (1 source) Family history of cancer of colon; Translations: [Family history of malignant neoplasm of digestive organs] 10-30-2024 Episodic Residual codes; unclassified (1 source) Other specified postprocedural states; Translations: [History of lumbar laminectomy for spinal cord decompression] Onset: Episodic Residual codes; unclassified (1 source) Edema of lower extremity; Translations: [Localized edema] 06-21-2024 Episodic Respiratory failure; insufficiency; arrest (adult) (1 source) [id number] respiratory failure; Translations: [Acute and chronic respiratory failure with hypoxia] 03-19-2024 Chronic Rheumatoid arthritis and related disease (18 sources) Arthropathy of lumbar facet joint 09-21-2020 Chronic Screening and history of mental health and substance abuse codes (20 sources) Ex-tobacco user; Translations: [Ex-cigarette smoker] Onset: 5 02-17-2020 Episodic Spondylosis; intervertebral disc disorders; other back problems (20 sources) Degeneration of lumbar intervertebral disc; Translations: [Lumbar arthritis] Onset: 5 09-21-2020 Chronic Spondylosis; intervertebral disc disorders; other back problems (20 sources) Cervical radiculopathy; Translations: [Chronic low back pain] Onset: 3 12-05-2018 Episodic Substance-related disorders (20 sources) Nicotine dependence; Translations: [Nicotine dependence, cigarettes, uncomplicated] Chronic Comment on above: Ordered for March 2023 Unclassified (20 sources) Patient encounter status 05-12-2020 Unclassified (7 sources) Autogenerated Problem Onset: 5 01-04-2025 Unclassified (1 source) Asthma-COPD overlap syndrome (HCC); Translations: [Asthma-COPD overlap syndrome (HCC)] Onset: 5 Past or Other Problems Problem Classification Problem Date Documented Da te Episodic/Chronic Abdominal pain (20 sources) Left upper quadrant pain; Translations: [Left upper quadrant pain] Onset: 10-03-2024 10-03-2024 Episodic Diabetes mellitus without complication (20 sources) Prediabetes; Translations: [Hyperglycemia] Onset: 07-09-2023 05-12-2020 Episodic Malaise and fatigue (20 sources) Fatigue; Translations: [Other fatigue] Onset: 07-09-2023 Episodic Nonspecific chest pain (14 sources) Central chest pain; Translations: [Chest pain, unspecified] Onset: 06-19-2024 12-18-2018 Episodic Other aftercare (1 source) Encounter for follow-up examination after completed treatment for conditions other than malignant neoplasm; Translations: [Hospital discharge follow-up] Onset: 06-18-2024 Episodic Other and unspecified benign neoplasm (20 sources) Lipoma (clinical); Translations: [Benign lipomatous neoplasm, unspecified] Onset: 03-04-2005 03-04-2005 Episodic Other bone disease and musculoskeletal deformities (20 sources) Osteopenia; Translations: [Other specified disorders of bone density and structure, unspecified site] Onset: 07-09-2023 Episodic Other bone disease and musculoskeletal deformities (1 source) Disorder of bone, unspecified; Translations: [Disorder of bone and cartilage] Onset: 01-23-2024 Episodic Other bone disease and musculoskeletal deformities (1 source) Disorder of cartilage, unspecified; Translations: [Disorder of bone and cartilage] Onset: 01-23-2024 Episodic Other connective tissue disease (20 sources) Muscle pain; Translations: [Myalgia, unspecified site] Onset: 08-23-2022 Episodic Other diseases of veins and lymphatics (1 source) Venous insufficiency (chronic) (peripheral); Translations: [Venous (peripheral) insufficiency] Onset: 09-23-2024 Episodic Other gastrointestinal disorders (20 sources) Swollen abdomen; Translations: [Abdominal distension (gaseous)] Onset: 10-03-2024 10-03-2024 Episodic Other gastrointestinal disorders (1 source) Abdominal distension (gaseous); Translations: [Abdominal distension] Onset: 10-03-2024 Episodic Other lower respiratory disease (20 sources) Multiple nodules of lung; Translations: [Other nonspecific abnormal finding of lung field] Onset: 04-07-2023 04-07-2023 Episodic Other lower respiratory disease (1 source) Wheezing; Translations: [Wheezing] Onset: 01-23-2024 Episodic Other lower respiratory disease (1 source) Shortness of breath; Translations: [SOB (shortness of breath)] Onset: 01-23-2024 Episodic Other non-traumatic joint disorders (20 sources) Multiple joint pain; Translations: [Pain in unspecified joint] Onset: 08-23-2022 05-12-2020 Episodic Other nutritional; endocrine; and metabolic disorders (20 sources) Weight gain; Translations: [Abnormal weight gain] Onset: 07-09-2023 07-09-2023 Episodic Other nutritional; endocrine; and metabolic disorders (20 sources) Weight increased; Translations: [Abnormal weight gain] Onset: 07-09-2023 07-09-2023 Episodic Other screening for suspected conditions (not mental disorders or infectious disease) (20 sources) Elevated C-reactive protein; Translations: [Elevated C-reactive protein (CRP)] Onset: 07-09-2023 05-12-2020 Episodic Other upper respiratory disease (1 source) Nasal congestion; Translations: [Nasal congestion] Onset: 06-18-2024 Episodic Phlebitis; thrombophlebitis and thromboembolism (20 sources) Acute deep vein thrombosis of lower limb; Translations: [Acute embolism and thrombosis of unspecified deep veins of right proximal lower extremity] Onset: 06-18-2024 06-18-2024 Episodic Residual codes; unclassified (20 sources) Edema of foot; Translations: [Localized edema] Onset: 10-17-2023 08-07-2023 Episodic Residual codes; unclassified (20 sources) Bilateral lower limb edema; Translations: [Localized edema] Onset: 10-03-2024 10-03-2024 Episodic Residual codes; unclassified (3 sources) Localized edema; Translations: [Bilateral leg edema] Onset: 10-17-2023 Episodic Residual codes; unclassified (1 source) Sleep deprivation; Translations: [Poor sleep] Onset: 06-18-2024 Episodic Residual codes; unclassified (1 source) Asymptomatic menopausal state; Translations: [Asymptomatic postmenopausal status] Onset: 01-23-2024 Episodic Results Test Name Value Interpretation Reference Range Facility Abdomen/Pelvis W IV Cont ONL Yon 01-15-2025 Abdomen/Pelvis W IV Cont ONLY [facility] Imaging Services [address] [place] [address] Abdomen/Pelvis W IV Cont ONLY MR#: [id number] Acct: [id number] Name: NADJA CHAUDHARI Toney Rep #: [id number] : 1950 F 74 From: Sarthak myers MD PCP: Dr. Gray Quintana, DO Status: REG ER Study: Abdomen/Pelvis W IV Cont ONLY Date of Exam: Exam# [id number] Ordering Dr: Linda Madison PROCEDURE: ABDOMEN/PELVIS W IV CONT ONLY 01/15/2025 REASON FOR EXAM: LLQ PAIN History of possible colitis flare-ups. TECHNIQUE: ABDOMEN/PELVIS W IV CONT ONLY Coronal and Sagittal reconstruction series were provided. CONTRAST: Isovue 370 VOLUME: 100 mL One or more dose reduction techniques were used (e.g., Automated exposure control, adjustment of the mA and/or kV according to patient size, use of iterative reconstruction technique. RADIATION DOSE SUMMARY: CTDlvol: 17 mGy DLP: 1327.41 mGycm COMPARISON: Prior study dated April 25, 2023. FINDINGS: Lung bases: The lung bases are clear. Coronary artery calcification. Liver: Normal size. No mass. Gallbladder: Solitary gallstone. Spleen: Normal size. Pancreas: Diffuse fatty atrophy. Adrenals: Unremarkable Kidneys: Bilateral parapelvic cysts. Bladder: Unremarkable Reproductive Organs: Unremarkable Bowel: Sigmoid colon diverticula with wall thickening and adjacent inflammatory changes. No evidence of perforation or abscess. Appendix: Appendix is not visualized. Lymph nodes: Unremarkable. Vasculature: Mild diffuse atherosclerotic calcifications are noted. Peritoneum / Retroperitoneum: Unremarkable Bones: Degenerative changes of the spine. CT/Abdomen/Pelvis W IV Cont ONLY IMPRESSION: Findings in keeping with a non complicated sigmoid diverticulitis. Solitary gallstone. Stable bilateral parapelvic renal cysts. Reading Location: [id number] CC: Dr. Gray Quintana DO; HENRI Morales Head Of Stock: Signed Normal [facility] Absolute lymphocyte countOrd ered By: Linda Madison on 01-15-2025 Lymphocytes Auto (Unsp spec) [#/Vol] 1.29 10*3/uL 0.83-4.51 [facility] Absolute neutrophil countOrd ered By: Linda Madison on 01-15-2025 Neutrophils (Bld) [#/Vol] 7.3 10*3/uL 2.0-7.7 [facility] Anion gap in Serum or Plasma Ordered By: Linda Madison on 01-15-2025 Anion gap [Moles/Vol] 14 mmol/L 5-15 [facility] Automated lymphocyte count a s percentage of total leukocytesOrdered By: Linda Madison on 01-15-2025 Lymphocytes/100 WBC Auto (Unsp spec) 13.3 % Low 19-41 [facility] BUN/creatinine ratioOrdered By: Linda Madison on 01-15-2025 Urea nitrogen/Creatinine [Mass ratio] 20.0 mg/mg 10-20 [facility] Basic Metabolic Profile (BMP )on 01-15-2025 BUN/CRE 20.0 RATIO Normal - [facility] Comment on above: Performed By: #### L 100.0100, L500.2500 ####[facility] [address] [place], [address] Calcium [Mass/Vol] 8.7 mg/dL Normal 7.6-11.0 [facility] Comment on above: Performed By: #### L 100.0100, L500.2500 ####[facility] [address] [place], [address] Chloride [Moles/Vol] 105 mmol/L Normal 98-108 [facility] Comment on above: Performed By: #### L 100.0100, L500.2500 ####[facility] [address] [place], [address] CO2 [Moles/Vol] 21.1 mmol/L Normal 21.0-32.0 [facility] Comment on above: Performed By: #### L 100.0100, L500.2500 ####[facility] [address] [place], [address] Creatinine [Mass/Vol] 0.97 mg/dL Normal 0.70-1.20 [facility] Comment on above: Performed By: #### L 100.0100, L500.2500 ####[facility] [address] [place], [address] ECRCL 60.68 ml/min Normal 50-250 [facility] Comment on above: Performed By: #### L 100.0100, L500.2500 ####[facility] [address] [place], [address] GAP 14 Normal 5-15 [facility] Comment on above: Performed By: #### L 100.0100, L500.2500 ####[facility] [address] [place], [address] GFR/1.73 sq M.predicted among non-blacks MDRD (S/P/Bld) [Vol rate/Area] 61 mL/min/{1.73_m2} Normal >60 [facility] Comment on above: Result Comment: mL/m in/1.73m2 CKD-EPI Creatinine Equation (2020) Performed By: #### L 100.0100, L500.2500 ####[facility] [address] [place], [address] Glucose [Mass/Vol] 133 mg/dL High 70-99 [facility] Comment on above: Performed By: #### L 100.0100, L500.2500 ####[facility] [address] [place], [address] Potassium [Moles/Vol] 3.3 mmol/L Normal 3.3-5.1 [facility] Comment on above: Performed By: #### L 100.0100, L500.2500 ####[facility] [address] [place], [address] Sodium [Moles/Vol] 140 mmol/L Normal 133-145 [facility] Comment on above: Performed By: #### L 100.0100, L500.2500 ####[facility] [address] [place], [address] Urea nitrogen [Mass/Vol] 19 mg/dL Normal 4-19 [facility] Comment on above: Performed By: #### L 100.0100, L500.2500 ####[facility] [address] [place], [address] Basophil percentageOrdered B y: Linda Madison on 01-15-2025 Basophils/100 WBC (Bld) 0.3 % 0-1 [facility] Bilirubin Test strip Ql (U)O rdered By: Linda Madison on 01-15-2025 Bilirubin Ql (U) Negative Negative [facility] CBC W/Diff, Automatedon 12-27 Absolute Lymph 1.29 X10 3/uL Normal 0.83-4.51 [facility] Comment on above: Performed By: #### L 100.0100, L500.2500 ####[facility] [address] [place], [address] Absolute Neut 7.3 X10 3/uL Normal 2.0-7.7 [facility] Comment on above: Performed By: #### L 100.0100, L500.2500 ####[facility] [address] [place], [address] Basophils/100 WBC (Bld) 0.3 % Normal 0-1 [facility] Comment on above: Performed By: #### L 100.0100, L500.2500 ####[facility] [address] [place], [address] Eosinophils/100 WBC (Bld) 2.7 % Normal 0-5 [facility] Comment on above: Performed By: #### L 100.0100, L500.2500 ####[facility] [address] [place], [address] Erythrocyte distribution width (RBC) [Ratio] 14.2 % Normal 11.6-14.6 [facility] Comment on above: Performed By: #### L 100.0100, L500.2500 ####[facility] [address] [place], [address] Hematocrit (Bld) [Volume fraction] 36.7 % Low 37-47 [facility] Comment on above: Performed By: #### L 100.0100, L500.2500 ####[facility] [address] [place], [address] Hemoglobin (Bld) [Mass/Vol] 12.1 g/dL Normal 12.0-15. 0 [facility] Comment on above: Performed By: #### L 100.0100, L500.2500 ####[facility] [address] [place], [address] IG% 0.300 Normal 0.0-0.9 [facility] Comment on above: Result Comment: IG% - Immature Granulocytes (promyelocytes, myelocytes and metamyelocytes) > 1% indicates that a LEFT SHIFT is Present. Performed By: #### L 100.0100, L500.2500 ####[facility] [address] [place], [address] Lymphocytes/100 WBC (Bld) 13.3 % Low 19-41 [facility] Comment on above: Performed By: #### L 100.0100, L500.2500 ####[facility] [address] [place], [address] MCH (RBC) [Entitic mass] 29.8 pg Normal 27.0-32.0 [facility] Comment on above: Performed By: #### L 100.0100, L500.2500 ####[facility] [address] [place], [address] MCHC (RBC) [Mass/Vol] 33.0 g/dL Normal 32-36 [facility] Comment on above: Performed By: #### L 100.0100, L500.2500 ####[facility] [address] [place], [address] MCV (RBC) [Entitic vol] 90.4 fL Normal 81-99 [facility] Comment on above: Performed By: #### L 100.0100, L500.2500 ####[facility] [address] [place], [address] Monocytes/100 WBC (Bld) 8.2 % Normal 0-10 [facility] Comment on above: Performed By: #### L 100.0100, L500.2500 ####[facility] [address] [place], [address] Neutrophils/100 WBC (Bld) 75.2 % High 47-70 [facility] Comment on above: Performed By: #### L 100.0100, L500.2500 ####[facility] [address] [place], [address] Nucleated RBC (Bld) [#/Vol] 0 10*3/uL Normal 0-5 [facility] Comment on above: Performed By: #### L 100.0100, L500.2500 ####[facility] [address] [place], [address] Platelet mean volume (Bld) [Entitic vol] 10.1 fL Normal 6.2-12.0 [facility] Comment on above: Performed By: #### L 100.0100, L500.2500 ####[facility] [address] [place], [address] Platelets (Bld) [#/Vol] 267 10*3/uL Normal 150-450 [facility] Comment on above: Performed By: #### L 100.0100, L500.2500 ####[facility] [address] [place], [address] RBC (Bld) [#/Vol] 4.06 10*6/uL Low 4.2-5.4 [facility] Comment on above: Performed By: #### L 100.0100, L500.2500 ####[facility] [address] [place], [address] RDW SD 47.0 fl High 35.1-43.9 [facility] Comment on above: Performed By: #### L 100.0100, L500.2500 ####[facility] [address] [place], [address] WBC (Bld) [#/Vol] 9.7 10*3/uL Normal 4.4-11.0 [facility] Comment on above: Performed By: #### L 100.0100, L500.2500 ####[facility] [address] [place], [address] Carbon dioxide, total [Moles /volume] in Central venous bloodOrdered By: Linda Madison on 01-15-2025 CO2 [Moles/Vol] 21.1 mmol/L 21.0-32.0 [facility] Chloride assayOrdered By: Mariluz Madison on 01-15-2025 Chloride [Moles/Vol] 105 mmol/L 98-108 [facility] Emergency Department Summary on 01-15-2025 Emergency Department Summary [facility] Medical Records Department [address] [place] [address] Emergency Department Summary 01/15/25 MR#: [id number] Acct: [id number] Name: NADJA CHAUDHARI Rep #: [id number] : 1950 74 From: Jordin Najera DO PCP: Dr. Gray Quintana, DO Status:DEP ER Location: ED HPI History of Present Illness Chief Complaint: Abd Pain Narrative Narrative: 74-year-old female with past medical history of hypertension, ulcerative colitis presents with 3 days of periumbilical and lower abdominal pain. This morning she had cottage cheese and then had an episode of nausea and vomiting. She is having 5-6 small soft bowel movements a day. No melena hematochezia. She states the symptoms started the day after she was put on Macrobid for UTI. She was diagnosed with ulcerative colitis in her 40s but not take medication for it because it caused her acid reflux. She follows with a GI doctor in [place] and had a normal colonoscopy about a year ago. She thinks her last flare was about a year and a half ago treated with prednisone. [facility] Medical History Anxiety Depression Osteoporosis Kidney disease Hepatitis Former smoker On home oxygen therapy Asthma Chest pain Ulcerative colitis HTN (hypertension) History of hypertension Home Medications ???Medication ???Instructions ???Recorded ???Last Taken ???Type losartan 50 mg-hydrochlorothiazide 1 tab PO DAILY 12/15/21 Unknown History 12.5 mg tablet losartan 50 mg tablet 50 mg PO HS 01/02/22 Unknown Histo ry apixaban 5 mg (74 tabs) tablets in 5 mg PO BID #74 tabs 06/13/24 Un known Rx a dose pack (Eliquis DVT-PE Treat 30D Start) atorvastatin 40 mg tablet 40 mg PO QHS 1 month #30 tabs 05/28 12/19 Unknown Rx carvedilol 6.25 mg tablet 6.25 mg PO BIDCM 30 days #60 tabs 06/13/24 Unknown Rx ciprofloxacin HCl 500 mg tablet 500 mg PO BID 7 days #14 tabs 12/27 06/21 Unknown Rx (Cipro) hydrocodone-acetaminop hen 5-325mg 1 tab PO Q6H PRN PRN Pain 3 days 01/15/25 Unknown Rx 5mg-325mg #10 TABLETS metronidazole 500 mg tablet 500 mg PO BID 7 days #14 tabs 12/27 06/21 Unknown Rx ondansetron 4 mg disintegrating 4 mg PO Q6H PRN nausea and 5 Unknown Rx tablet vomiting #10 tabs Allergy/AdvReac Type Severity Reaction Status Date / Time No Known Allergies Allergy Verified 06/11/24 16:42 Family History Father Colon cancer Aunt Colon cancer Breast cancer Surgical History S/P ORIF (open reduction internal fixation) fracture Hx of shoulder surgery Hx of lumbar discectomy History of mandibular surgery History of tonsillectomy History of back surgery Social History (Updated 06/11/24 @ 21:[address] Rosita Alonzo DO) Smoking Status: Former smoker Tobacco: How many years used: 40 alcohol intake: never substance use type: does not use ROS ROS ED ROS Narrative Constitutional: Negative for fever, chills, malaise. GI: Positive for abdominal pain, nausea, vomiting. Negative for melena, hematochezia. : Negative for dysuria. EXAM Physical Exam Narrative Exam Narrative: CONST: Patient sitting in no acute distress. EYES: Normal inspection. NECK: Normal inspection. RESP: No respiratory distress, CTAB. CVS: Regular rate and rhythm, no murmur, no gallop. ABD: Obese abdomen is soft with left lower quadrant tenderness, no guarding or rebound, nondistended. SKIN: Color normal, no rash, warm, dry, intact. EXTREMITIES: Normal appearance, no pedal edema. NEURO: Alert and answering questions appropriately. PSYCH: Normal affect. ` Const Vital Signs: 01/15/25 11:52 Temperature 98.3 F Temperature Source Temporal Pulse Rate 107 H Respiratory Rate 16 Blood Pressure 123/79 H Blood Pressure Mean 93 Pulse Ox 95 Oxygen Delivery Method Room Air Physical Exam Const Vital Signs: 01/15/25 11:52 Temperature 98.3 F Temperature Source Temporal Pulse Rate 107 H Respiratory Rate 16 Blood Pressure 123/79 H Blood Pressure Mean 93 Pulse Ox 95 Oxygen Delivery Method Room Air MDM MDM MDM Narrative Medical decision making narrative: Differential includes but not limited to diverticulitis, ulcerative colitis flare, UTI 74-year-old female presents with few days of periumbilical and bilateral lower abdominal pain and increased bowel movements. She appears well and nontoxic. She is tachycardic at 107 with otherwise normal vital signs. Abdomen is soft with left lower quadrant tenderness without peritoneal signs. Overall labs are unremarkable, white count normal at 9.7, electrolytes and renal function normal. She is on Macrobid (more content not included)... Normal [facility] Eosinophil percentageOrdered By: Linda Madison on 01-15-2025 Eosinophils/100 WBC (Bld) 2.7 % 0-5 [facility] Erythrocyte distribution wid th ratioOrdered By: Linda Madison on 01-15-2025 Erythrocyte distribution width (RBC) [Ratio] 14.2 % 11.6-14.6 [facility] Erythrocyte distribution wid th standard deviationOrdered By: Linda Madison on 01-15-2025 Erythrocyte distribution width (RBC) [Ratio] 47.0 fl High 35.1-43.9 [facility] Glomerular filtration rate ( GFR) estimation/1.73 sq m using serum, plasma, or whole bOrdered By: Linda Madison on 01-15-2025 GFR/1.73 sq M.predicted among non-blacks MDRD (S/P/Bld) [Vol rate/Area] 61 mL/min/{1.73_m2} >60 [facility] Comment on above: mL/min/1.73m2 CKD-EP I Creatinine Equation (2020) Hematocrit Auto (Bld) [Volum e fraction]Ordered By: Linda Madison on 01-15-2025 Hematocrit (Bld) [Volume fraction] 36.7 % Low 37-47 [facility] Hemoglobin measurementOrdere d By: Linda Madison on 01-15-2025 Hemoglobin (Bld) [Mass/Vol] 12.1 g/dL 12.0-15. 0 [facility] Immature granulocytes/100 WB C Auto (Bld)Ordered By: Linda Madison on 01-15-2025 Immature granulocytes/100 WBC (Bld) 0.300 % 0.0-0.9 [facility] Comment on above: IG% - Immature Granu locytes (promyelocytes, myelocytes and metamyelocytes) > 1% indicates that a LEFT SHIFT is Present. Ketones Test strip Ql (U)Ord ered By: Linda Madison on 01-15-2025 Ketones Ql (U) Negative Negative [facility] MCV (mean corpuscular volume ) determinationOrdered By: Linda Madison on 01-15-2025 MCV (RBC) [Entitic vol] 90.4 fL 81-99 [facility] Mean corpuscular hemoglobin (MCH) determinationOrdered By: Linda Madison on 01-15-2025 MCH (RBC) [Entitic mass] 29.8 pg 27.0-32.0 [facility] Mean corpuscular hemoglobin concentration (MCHC) determinationOrdered By: Linda Madison on 01-15-2025 MCHC (RBC) [Mass/Vol] 33.0 g/dL 32-36 [facility] Mean platelet volume determi nationOrdered By: Linda Madison on 01-15-2025 Platelet mean volume (Bld) [Entitic vol] 10.1 fL 6.2-12.0 [facility] Microscopic analysis of urin e for red blood cells (RBC)Ordered By: Linda Madison on 01-15-2025 Microscopic analysis of urine for red blood cells (RBC) 0 SEEN /hpf 0-5 [facility] Monocyte percentageOrdered B y: Linda Madison on 01-15-2025 Monocytes/100 WBC (Bld) 8.2 % 0-10 [facility] Mucus LM Ql (Urine sed)Order ed By: Linda Madison on 01-15-2025 Mucus Ql (Urine sed) 0 SEEN /hpf [facility] Neutrophil percentageOrdered By: Linda Madison on 01-15-2025 Neutrophils/100 WBC (Bld) 75.2 % High 47-70 [facility] Nitrite Test strip Ql (U)Ord ered By: Linda Madison on 01-15-2025 Nitrite Ql (U) Negative Negative [facility] Nucleated red blood cell per centageOrdered By: Linda Madison on 01-15-2025 Nucleated RBC/100 WBC (Bld) [Ratio] 0 % 0-5 [facility] Platelet countOrdered By: Mariluz Madison on 01-15-2025 Platelets (Bld) [#/Vol] 267 10*3/uL 150-450 [facility] Potassium measurement (mass/ volume)Ordered By: Linda Madison on 01-15-2025 Potassium (Unsp spec) [Mass/Vol] 3.3 mmol/L 3.3-5.1 [facility] Protein Test strip Ql (U)Ord ered By: Linda Madsion on 01-15-2025 Protein Ql (U) 30 mg/dl High Negative [facility] RBC Auto (Bld) [#/Vol]Ordere d By: Linda Madison on 01-15-2025 RBC (Bld) [#/Vol] 4.06 10*6/uL Low 4.2-5.4 [facility] Serum creatinine measurement (mass/volume)Ordered By: Linda Madison on 01-15-2025 Creatinine [Mass/Vol] 0.97 mg/dL 0.70-1.20 [facility] Serum glucose measurement (m ass/volume)Ordered By: Linda Madison on 01-15-2025 Glucose [Mass/Vol] 133 mg/dL High 70-99 [facility] Serum or plasma calcium lydia urement (mass/volume)Ordered By: Linda Madison on 01-15-2025 Calcium [Mass/Vol] 8.7 mg/dL 7.6-11.0 [facility] Serum or plasma urea nitroge n measurement (mass/volume)Ordered By: Linda Madison on 01-15-2025 Urea nitrogen [Mass/Vol] 19 mg/dL 4-19 [facility] Sodium levelOrdered By: Linda Madison on 01-15-2025 Sodium [Moles/Vol] 140 mmol/L 133-145 [facility] Squamous epithelial cells de tection in urine sediment by light microscopyOrdered By: Linda Madison on 01-15-2025 Epithelial cells.squamous LM Ql (Urine sed) 0-5 SEEN /hpf 5-10 [facility] Urinalysis, Completeon 01-15 EPI,SQUAMOUS 0-5 SEEN Normal 5-10 [facility] Comment on above: Order Comment: CLEAN CATCH Performed By: #### L 400.0001 ####[facility] [address] [place], [address] WBC 0-5 SEEN Normal 0-5 [facility] Comment on above: Order Comment: CLEAN CATCH Performed By: #### L 400.0001 ####[facility] [address] [place], [address] BACTERIA 0 SEEN Normal None Seen [facility] Comment on above: Order Comment: CLEAN CATCH Performed By: #### L 400.0001 ####[facility] [address] [place], [address] Mucus Ql (Urine sed) 0 SEEN Normal [facility] Comment on above: Order Comment: CLEAN CATCH Performed By: #### L 400.0001 ####[facility] [address] [place], [address] RBC 0 SEEN Normal 0-5 [facility] Comment on above: Order Comment: CLEAN CATCH Performed By: #### L 400.0001 ####[facility] [address] [place], [address] Urine clarityOrdered By: Romelia Madison on 01-15-2025 Clarity (U) Clear Clear [facility] Urine color determinationOrd ered By: Linda Madison on 01-15-2025 Color (U) Yellow Yellow [facility] Urine glucose detectionOrder ed By: Linda Madison on 01-15-2025 Glucose Ql (U) Normal mg/dl Normal [facility] Urine leukocyte esterase det ection by dipstickOrdered By: Linda Madison on 01-15-2025 Leukocyte esterase Test strip Ql (U) Negative Negative [facility] Urine pHOrdered By: Linda estrella on 01-15-2025 pH (U) 6.5 [pH] 5.0 - 8.0 [facility] Urine sediment bacteria coun t by microscopy (number/high power field)Ordered By: Linda Madison on 01-15-2025 Bacteria LM.HPF (Urine sed) [#/Area] 0 /[HPF] None Seen [facility] Urine specific gravity measu rementOrdered By: Linda Madison on 01-15-2025 Specific gravity (U) [Rel density] 1.010 1.002-1.03 0 [facility] Urine urobilinogen measureme ntOrdered By: Linda Madison on 01-15-2025 Urobilinogen Ql (U) Normal mg/dl Normal [facility] White blood cell (WBC) count Ordered By: Linda Madison on 01-15-2025 WBC (Bld) [#/Vol] 9.7 10*3/uL 4.4-11.0 [facility] White blood cell countOrdere d By: Linda Madison on 01-15-2025 White blood cell count 0-5 SEEN /hpf 0-5 [facility] Bacteria Ur Culton Bacteria identified Cx Nom (U) Abnormal [facility] Comment on above: Performed By: #### 6 30-4 ####[facility] LABCLIA [id number] [address] [place] CNOVon 01-12-2025 CNOV Normal [facility] UA DIP, URINE (POC)on 2024 BILIRUBIN UA (POCT) Negative Negative [facility] CLARITY UA (POCT) Cloudy [facility] COLOR UA (POCT) Yellow [facility] GLUCOSE UA (POCT) Negative Negative mg/dL [facility] Hemoglobin Ql (U) Moderate Abnormal Negative [facility] Interpretation and review of laboratory results Abnormal [facility] KETONE UA (POCT) Negative Negative mg/dL [facility] LEUKOCYTES UA (POCT) Moderate Abnormal Negative [facility] NITRITE UA (POCT) Negative Negative [facility] PH UA (POCT) 6.5 4.5 - 8.0 [facility] Protein Ql (U) 100 mg/dL Abnormal Negative [facility] SPECIFIC GRAVITY UA (POCT) 1.015 1 .005 - 1.030 [facility] UROBILINOGEN UA (POCT) 0.2 Jovita l E.U./dL [facility] Location:[facility], [address], [place], [address] [facility] POINT [facility] CARE [facility] CNTHERAPYon 01-06-[address] CNTHERAPY [address] [facility] Bacteria Ur Culton Bacteria identified Cx Nom (U) Normal [facility] Comment on above: Performed By: #### 6 30-4 ####[facility] LABCLIA [id number] [place] [address] [place] CNOVon 12-29-2024 CNOV Normal [facility] CNPNon 12-29-2024 CNPN Normal [facility] CNPTOUTREACHon 12-29-2024 CNPTOUTREACH Normal [facility] UA DIP, URINE (POC)on 2024 BILIRUBIN UA (POCT) Negative Negative [facility] CLARITY UA (POCT) Cloudy [facility] COLOR UA (POCT) Yellow [facility] GLUCOSE UA (POCT) Negative Negative mg/dL [facility] Hemoglobin Ql (U) Moderate Abnormal Negative [facility] Interpretation and review of laboratory results Abnormal [facility] KETONE UA (POCT) Negative Negative mg/dL [facility] LEUKOCYTES UA (POCT) Moderate Abnormal Negative [facility] NITRITE UA (POCT) Negative Negative [facility] PH UA (POCT) 6 4.5 - 8.0 [facility] Protein Ql (U) 100 mg/dL Abnormal Negative [facility] SPECIFIC GRAVITY UA (POCT) 1.015 1 .005 - 1.030 [facility] UROBILINOGEN UA (POCT) 0.2 Jovita l E.U./dL [facility] Location:[facility], [address], [place], [address] [facility] [id number] 12-23-2024 [id number] Normal [facility] CNTHERAPYon 12-23-2024 CNTHERAPY [address] [facility] THERAPY NTon 12-23-2024 THERAPY NT Normal [facility] CNPNon 12-11-2024 CNPN Normal [facility] CNPNon 12-08-2024 CNPN Normal [facility] CNOVon 12-04-2024 CNOV Normal [facility] XR CERVICAL 2V FLEX/EXTon XR CERVICAL 2V FLEX/EXT Normal [facility] XR ELBOW 2V AP/LAT LTon 11-25 XR ELBOW 2V AP/LAT LT Normal [facility] XR THORACIC 2V AP/LATon 11-25 XR THORACIC 2V AP/LAT Normal [facility] CNPNon 11-25-2024 CNPN Normal [facility] CNPTOUTREACHon 11-25-2024 CNPTOUTREACH [address] [facility] MR Lumbar spine WO contrasto n 11-20-2024 IMPRESSION: Multilevel degenerative changes are present throughout the lumbar spine with canal stenosis most pronounced and moderate to advanced at L3-L4, as well as significant narrowing of the lateral recesses bilaterally at L4-L5 with crowding of the bilateral descending L5 nerve roots at this level. Varying degrees of degenerative foraminal stenosis, most pronounced and moderate to advanced on the right at L3-L4, as well as moderate at multiple additional levels as detailed in the body of the report. Anatomic Lumbar Variant: None. L4-5 is considered the level of the iliac crest and assume there are 5 lumbar-type vertebrae. Head Of Stock: [facility] Transcribe Date/Time: Nov 20 2024 2:58P Dictated by : KIERA HORN MD This examination was interpreted and the report reviewed and electronically signed by: KIEAR HORN MD on Nov 20 2024 3:04PM [facility] DIVISION OF RADIOLOGY * * *Final Report* * * DATE OF EXAM: Nov 20 2024 1:27PM WR 0303 - MRI LUMBAR SPINE WO IVCON / PROCEDURE REASON: Radiculopathy of lumbar region * * * * Physician Interpretation * * * * EXAMINATION: MRI LUMBAR SPINE WO IVCON CLINICAL HISTORY: Radiculopathy of lumbar region TECHNIQUE: Routine lumbosacral spine MRI protocol without gadolinium. MQ: [id number] COMPARISON: Lumbar spine radiographs 10/03/2024 RESULT: Counting reference: Lumbosacral junction. For the purposes of this report, L4-5 is considered the level of the iliac crest and assume there are 5 lumbar-type vertebrae. Anatomic variant: None. Localizer images: Multiple bilateral renal sinus cysts. Alignment: Dextroscoliosis is present centered at L2-L3. Bone marrow signal/fracture: Scattered chronic degenerative marrow signal changes throughout the lumbar vertebrae. No evidence of prior fracture. Conus: The conus is within normal limits of signal intensity and morphology. Paraspinal soft tissues: Paraspinal soft tissues are within normal limits. Lower thoracic spine: Visualized lower thoracic canal and foramina are patent. L1-L2: Mild to moderate degenerative disc disease as well as mild left greater than right degenerative facet disease resulting in mild to moderate left and mild right foraminal stenosis. No substantial canal stenosis. L2-L3: Advanced degenerative disc disease eccentric to the left with posterior broad-based disc bulge and posterior endplate osteophytic ridging as well as mild to moderate bilateral degenerative facet disease and ligamentum flavum thickening resulting in mild to moderate canal stenosis as well as moderate left and mild right foraminal stenosis. L3-L4: Moderate degenerative disc disease with posterior broad-based disc bulge as well as moderate right and mild left degenerative facet disease and ligamentum flavum thickening resulting in moderate to advanced canal stenosis as well as moderate to advanced right and moderate left foraminal stenosis. L4-L5: Advanced degenerative disc disease with posterior endplate osteophytic ridging and posterior broad-based disc bulge and likely superimposed right lateral recess disc protrusion as well as mild to moderate bilateral degenerative facet disease and ligamentum flavum thickening resulting in moderate central stenosis, moderate narrowing of the lateral recesses, as well as moderate bilateral foraminal stenosis. L5-S1: Mild degenerative disc disease with small posterior broad-based disc bulge and posterior central disc protrusion as well as moderate to advanced right and mild to moderate left degenerative facet disease resulting in mild narrowing of the lateral recesses as well as moderate left and wlgl-uk-invdbqku right foraminal stenosis. No substantial central stenosis. Sacrum and iliac wings: The visualized sacrum and iliac wings are within normal limits. DIVISION OF RADIOLOGY Provider, Tena Driss [facility] - 11/20/2024 * * *Final Report* * * DATE OF EXAM: Nov 20 2024 1:27PM DIANE 0303 - MRI LUMBAR SPINE WO IVCON / PROCEDURE REASON: Radiculopathy of lumbar region * * * * Physician Interpretation * * * * EXAMINATION: MRI LUMBAR SPINE WO IVCON CLINICAL HISTORY: Radiculopathy of lumbar region TECHNIQUE: Routine lumbosacral spine MRI protocol without gadolinium. MQ: [id number] COMPARISON: Lumbar spine radiographs 10/03/2024 RESULT: Counting reference: Lumbosacral junction. For the purposes of this report, L4-5 is considered the level of the iliac crest and assume there are 5 lumbar-type vertebrae. Anatomic variant: None. Localizer images: Multiple bilateral renal sinus cysts. Alignment: Dextroscoliosis is present centered at L2-L3. Bone marrow signal/fracture: Scattered chronic degenerative marrow signal changes throughout the lumbar vertebrae. No evidence of prior fracture. Conus: The conus is within normal limits of signal intensity and morphology. Paraspinal soft tissues: Paraspinal soft tissues are within normal limits. Lower thoracic spine: Visualized lower thoracic canal and foramina are patent. L1-L2: Mild to moderate degenerative disc disease as well as mild left greater than right degenerative facet disease resulting in mild to moderate left and mild right foraminal stenosis. No substantial canal stenosis. L2-L3: Advanced degenerative disc disease eccentric to the left with posterior broad-based disc bulge and posterior endplate osteophytic ridging as well as mild to moderate bilateral degenerative facet disease and ligamentum flavum thickening resulting in mild to moderate canal stenosis as well as moderate left and mild right foraminal stenosis. L3-L4: Moderate degenerative disc disease with posterior broad-based disc bulge as well as moderate right and mild left degenerative facet disease and ligamentum flavum thickening resulting in moderate to advanced canal stenosis as well as moderate to advanced right and moderate left foraminal stenosis. L4-L5: Advanced degenerative disc disease with posterior endplate osteophytic ridging and posterior broad-based disc bulge and likely superimposed right lateral recess disc protrusion as well as mild to moderate bilateral degenerative facet disease and ligamentum flavum thickening resulting in moderate central stenosis, moderate narrowing of the lateral recesses, as well as moderate bilateral foraminal stenosis. L5-S1: Mild degenerative disc disease with small posterior broad-based disc bulge and posterior central disc protrusion as well as moderate to advanced right and mild to moderate left degenerative facet disease resulting in mild narrowing of the lateral recesses as well as moderate left and zpoj-ls-gzlfwzzv right foraminal stenosis. No substantial central stenosis. Sacrum and iliac wings: The visualized sacrum and iliac wings are within normal limits. IMPRESSION IMPRESSION: Multilevel degenerative changes are present throughout the lumbar spine with canal stenosis most pronounced and moderate to advanced at L3-L4, as well as significant narrowing of the lateral recesses bilaterally at L4-L5 with crowding of the bilateral descending L5 nerve roots at this level. Varying degrees of degenerative foraminal stenosis, most pronounced and moderate to advanced on the right at L3-L4, as well as moderate at multiple additional levels as detailed in the body of the report. Anatomic Lumbar Variant: None. L4-5 is considered the level of the iliac crest and assume there are 5 lumbar-type vertebrae. Head Of Stock: [facility] Transcribe Date/Time: Nov 20 2024 2:58P Dictated by : KIERA HORN MD This examination was interpreted and the report reviewed and electronically signed by: KIERA OHRN MD on Nov 20 2024 3:04PM EST [facility] Radiology Study observation (narrative) [facility] MR Lumbar spine WO contrastO rdered By: [facility] Provider on 11-20-2024 [facility] MRI LUMBAR SPINE WO IVCONon 11-20-2024 MRI LUMBAR SPINE WO IVCON Normal [facility] CNOVon 11-18-2024 CNOV [address] 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 High: Adult >50 ppb, pediatric (<12 years) >35 ppb Indicative of ongoing eosinophilic inflammation. Symptomatic patient likely to respond to steroids. Possible causes (if already on steroids): Poor compliance, recent allergen exposure, steroid dose inadequate, and steroid resistance. Note that not all patients with high exhaled nitric oxide levels display symptoms. Oral Exhaled Nitric Oxide measurement (Previous Encounters) Test Date Oral Exhaled Nitric Oxide (ppb) 11/18/2024 12.0 NAME: Alexandra Soliz RRT PATIENT NAME: Nadja Chaudahri DATE: November 18, 2024 TIME: 11:18 AM [facility] MRI 3D POST PROCESSINGon MRI 3D POST PROCESSING Normal [facility] MRI PANC/TRISH WO/W IVCONon MRI PANC/TRISH WO/W IVCON Normal [facility] CNOVon 11-05-2024 CNOV Normal [facility] CNOVon 10-30-2024 CNOV Normal [facility] NM Biliary ducts and Gallbla dder Views for patency of biliary structures and ejection fraction W sincalide and W radionuclide Holger 10-23-2024 IMPRESSION: No scintigraphic evidence of cystic duct obstruction. Ejection fraction of 64%. Head Of Stock: R[facility] Transcribe Date/Time: Oct 23 2024 12:10P Dictated by : ELLIE GARCÍA MD This examination was interpreted and the report reviewed and electronically signed by: ELLIE GARCÍA MD on Oct 23 2024 12:13PM [facility] DIVISION OF RADIOLOGY * * *Final Report* * * DATE OF EXAM: Oct 23 2024 11:45AM WON 0021 - NM HEPATOBILIARY W EF AND/OR RX / PROCEDURE REASON: multiple diagnoses * * * * Physician Interpretation * * * * EXAMINATION: HEPATOBILIARY SCAN WITH GALLBLADDER EJECTION FRACTION CLINICAL HISTORY: Calculus of gallbladder without cholecystitis without obstruction Nausea . TECHNIQUE: 5.6 millicuries of Tc-99m Choletec administered IV. Dynamic planar imaging of the abdomen acquired for 60 minutes. Next, 2.19 mcg of CCK was administered followed by additional imaging to calculate a gallbladder ejection fraction. CORRELATION: US 10/14/2024 RESULT: Liver: Within normal limits. Gallbladder: Activity present by 1 hour, indicating cystic duct patency. Ejection fraction (EF): 64 % (normal > 35% and < 80%) CBD: Activity present in the proximal small bowel by 1 hour, indicating patency. DIVISION OF RADIOLOGY Provider, [facility] Driss Moss - 10/23/2024 * * *Final Report* * * DATE OF EXAM: Oct 23 2024 11:45AM IRA Myers1 - NM HEPATOBILIARY W EF AND/OR RX / PROCEDURE REASON: multiple diagnoses * * * * Physician Interpretation * * * * EXAMINATION: HEPATOBILIARY SCAN WITH GALLBLADDER EJECTION FRACTION CLINICAL HISTORY: Calculus of gallbladder without cholecystitis without obstruction Nausea . TECHNIQUE: 5.6 millicuries of Tc-99m Choletec administered IV. Dynamic planar imaging of the abdomen acquired for 60 minutes. Next, 2.19 mcg of CCK was administered followed by additional imaging to calculate a gallbladder ejection fraction. CORRELATION: US 10/14/2024 RESULT: Liver: Within normal limits. Gallbladder: Activity present by 1 hour, indicating cystic duct patency. Ejection fraction (EF): 64 % (normal > 35% and < 80%) CBD: Activity present in the proximal small bowel by 1 hour, indicating patency. IMPRESSION IMPRESSION: No scintigraphic evidence of cystic duct obstruction. Ejection fraction of 64%. Head Of Stock: RUTH Transcribe Date/Time: Oct 23 2024 12:10P Dictated by : ELLIE GARCÍA MD This examination was interpreted and the report reviewed and electronically signed by: ELLIE GARCÍA MD on Oct 23 2024 12:13PM EST [facility] Radiology Study observation (narrative) [facility] NM Biliary ducts and Gallbla dder Views for patency of biliary structures and ejection fraction W sincalide and W radionuclide IVOrdered By: [facility] Provider on 10-23-2024 [facility] NM HEPATOBILIARY W EF AND/OR RXon 10-23-2024 NM HEPATOBILIARY W EF AND/OR RX Normal [facility] CNPNon 10-08-2024 CNPN Normal [facility] US ABD RIGHT UPPER QUADRANTo n 10-06-2024 US ABD RIGHT UPPER QUADRANT Normal [facility] US ABD SPLEEN -NBon 10-07-19 US ABD SPLEEN -NB Normal [facility] ALBUMIN/CREATININE RATIO, UR INEon 10-04-2024 Albumin DL <= 20 mg/L (U) [Mass/Vol] mg/dL Normal [facility] Comment on above: Order Comment: Speci men Type: URINE SPECIMENOrdering Facility: [facility] Address: [address] [place] [address] Performed By: #### U ACR ####[facility] LABCLIA [id number] [place] [address] [place] Albumin/Creatinine (U) [Mass ratio] <23 Normal <[address] [facility] Comment on above: Order Comment: Speci men Type: URINE SPECIMENOrdering Facility: [facility] Address: [address] [place] [address] Result Comment: Adul t Male and Female Nephrotic Criteria:<30 mg/g is considered normal to mildly [id number] mg/g is considered moderately increased>300 mg/g is considered severely increasedKDIGO. (2013). KDIGO 2012 Clinical Practice Guideline for the Evaluation and Management of Chronic Kidney Disease. Official Journal of the International Society of Nephrology, 3(1), 1-150. Performed By: #### U ACR ####[facility] LABCLIA [id number] [place] [address] [place] Creatinine (U) [Mass/Vol] 52.1 mg/dL Normal 20.0-300.[address] [facility] Comment on above: Order Comment: Speci men Type: URINE SPECIMENOrdering Facility: [facility] Address: [address] [place] [address] Performed By: #### U ACR ####[facility] LABCLIA [id number] [place] [address] [place] Urinalysis complete panel (U )on 10-04-2024 Bacteria LM.HPF (Urine sed) [#/Area] Negative Normal Negative [facility] Comment on above: Order Comment: Speci men Type: URINE SPECIMENOrdering Facility: [facility] Address: [address] [place] [address] Performed By: #### 2 4356-8 ####[facility] LABCLIA [id number] [place] [address] [place] Bilirubin Ql (U) Negative Normal Negative [facility] Comment on above: Order Comment: Speci men Type: URINE SPECIMENOrdering Facility: [facility] Address: [facility] [place] [address] Performed By: #### 2 4356-8 ####[facility] LABCLIA [id number] [address] [place] [address] [place] Clarity (Unsp spec) Clear Normal Clear [facility] Comment on above: Order Comment: Speci men Type: URINE SPECIMENOrdering Facility: [facility] Address: [address] [place] [address] Performed By: #### 2 4356-8 ####[facility] LABCLIA [id number] [address], [facility] [place] [facility] Color (U) Yellow Normal Yellow [facility] Comment on above: Order Comment: Speci men Type: URINE SPECIMENOrdering Facility: [facility] Address: [address] [place] [address] Performed By: #### 2 4356-8 ####[facility] LABCLIA [id number] [address], [facility] [place] Epithelial cells LM.HPF (Urine sed) [#/Area] None Seen Normal [facility] Comment on above: Order Comment: Speci men Type: URINE SPECIMENOrdering Facility: [facility] Address: [address] [place] [address] Performed By: #### 2 4356-8 ####[facility] LABCLIA [id number] [address] [place] [address] [place] Glucose Test strip (U) [Mass/Vol] Negative Normal Negative [facility] Comment on above: Order Comment: Speci men Type: URINE SPECIMENOrdering Facility: [facility] Address: [address] [place] [address] Performed By: #### 2 4356-8 ####[facility] LABCLIA [id number] [place] [address] [place] Hemoglobin Ql (U) Negative Normal Negative [facility] Comment on above: Order Comment: Speci men Type: URINE SPECIMENOrdering Facility: [facility] Address: [address] [place] [address] Performed By: #### 2 4356-8 ####[facility] LABCLIA [id number] [place] [address] [place] Hyaline casts (Urine sed) [#/Area] 0 /[LPF] Normal 0 /LPF [facility] Comment on above: Order Comment: Speci men Type: URINE SPECIMENOrdering Facility: [facility] Address: [address] [place] [address] Performed By: #### 2 4356-8 ####[facility] LABCLIA [id number] [place] [address] [place] Ketones Ql (U) Negative Normal Negative [facility] Comment on above: Order Comment: Speci men Type: URINE SPECIMENOrdering Facility: [facility] Address: [address] [place] [address] Performed By: #### 2 4356-8 ####[facility] LABCLIA [id number] [place] [address] [place] Leukocyte esterase Test strip Ql (U) Negative Normal Negative [facility] Comment on above: Order Comment: Speci men Type: URINE SPECIMENOrdering Facility: [facility] Address: [address] [place] [address] Performed By: #### 2 4356-8 ####[facility] LABCLIA [id number] [place] [address] [place] Nitrite Ql (U) Negative Normal Negative [facility] [facility] Comment on above: Order Comment: Speci men Type: URINE SPECIMENOrdering Facility: [facility] Address: [address] [place] [address] Performed By: #### 2 4356-8 ####[facility] LABCLIA [id number] [place] [address] [place] pH (U) 6.0 [pH] Normal <8.[address] [facility] Comment on above: Order Comment: Speci men Type: URINE SPECIMENOrdering Facility: [facility] Address: [address] [place] [address] Performed By: #### 2 4356-8 ####[facility] LABIA [id number] [place] [address] [place] Protein (U) [Mass/Vol] Negative Normal Negative Cl [facility] Comment on above: Order Comment: Speci men Type: URINE SPECIMENOrdering Facility: [facility] Address: [address] [place] [address] Performed By: #### 2 4356-8 ####[facility] LABIA [id number] [place] [address] [place] RBC LM.HPF (Urine sed) [#/Area] 0-2 /HPF Normal 0-2 /HPF [facility] Comment on above: Order Comment: Speci men Type: URINE SPECIMENOrdering Facility: [facility] Address: [address] [place] [address] Performed By: #### 2 4356-8 ####[facility] LABIA [id number] [place] [address] [place] Specific gravity (U) [Rel density] 1.012 Normal 1.005-1.[address] [facility] Comment on above: Order Comment: Speci men Type: URINE SPECIMENOrdering Facility: [facility] Address: [address] [place] [address] Performed By: #### 2 4356-8 ####[facility] LABIA [id number] [place] [id number] [place] Urobilinogen Ql (U) 0.2 EU/dL Normal 0.2-1.0 EU/dL [facility] Comment on above: Order Comment: Speci men Type: URINE SPECIMENOrdering Facility: [facility] Address: [address] [place] [address] Performed By: #### 2 4356-8 ####[facility] LABCLIA [id number] [place] [address] [place] WBC LM.HPF (Urine sed) [#/Area] 0-5 /HPF Normal 0-5 /HPF [facility] Comment on above: Order Comment: Speci men Type: URINE SPECIMENOrdering Facility: [facility] Address: [address] [place] [address] Performed By: #### 2 4356-8 ####[facility] LABIA [id number] [place] [address] [place] CBC W Auto Differential pane l (Bld)on 10-03-2024 Basophils (Bld) [#/Vol] 10*3/uL Normal <0.11 [facility] Comment on above: Order Comment: Speci men Type: BLOOD SPECIMENOrdering Facility: [facility] Address: [address] [place] [address] Performed By: #### 5 7021-8 ####[facility] LABCLIA [id number] [place] [address] [place] Basophils/100 WBC (Bld) 0.3 % Normal [facility] Comment on above: Order Comment: Speci men Type: BLOOD SPECIMENOrdering Facility: [facility] Address: [address] [place] [address] Performed By: #### 5 7021-8 ####[facility] LABIA [id number] [place] [address] [place] Differential cell count method Nom (Bld) Auto Normal [facility] Comment on above: Order Comment: Speci men Type: BLOOD SPECIMENOrdering Facility: [facility] Address: [address] [place] [address] Performed By: #### 5 7021-8 ####[facility] LABCLIA [id number] [facility] [address], [place] [address] [place] Eosinophils (Bld) [#/Vol] 0.20 10*3/uL Normal <0.[address] [facility] Comment on above: Order Comment: Speci men Type: BLOOD SPECIMENOrdering Facility: [facility] Address: [address] [place] [address] Performed By: #### 5 7021-8 ####[facility] LABCLIA [id number] [facility] [address], [place] [address] [place] Eosinophils/100 WBC (Bld) 2.8 % Normal [facility] Comment on above: Order Comment: Speci men Type: BLOOD SPECIMENOrdering Facility: [facility] Address: [address] [place] [address] Performed By: #### 5 7021-8 ####[facility] LABCLIA [id number] [address], [place] [address] [place] Erythrocyte distribution width (RBC) [Ratio] 13.9 % Normal 11.5-15.[address] [facility] Comment on above: Order Comment: Speci men Type: BLOOD SPECIMENOrdering Facility: [facility] Address: [address] [place] [address] Performed By: #### 5 7021-8 ####[facility] LABCLIA [id number] [address], [facility] [place] Hematocrit (Bld) [Volume fraction] 41.1 % Normal 36.0-46.[address] [facility] Comment on above: Order Comment: Speci men Type: BLOOD SPECIMENOrdering Facility: [facility] Address: [address] [place] [address] Performed By: #### 5 7021-8 ####[facility] LABCLIA [id number] [address], [facility] [place] Hemoglobin (Bld) [Mass/Vol] 13.1 g/dL Normal 11.5-15. [address] [facility] Comment on above: Order Comment: Speci men Type: BLOOD SPECIMENOrdering Facility: [facility] Address: [address] [place] [address] Performed By: #### 5 7021-8 ####[facility] LABCLIA [id number] [facility] [place] [place] [address] [place] Immature granulocytes (Bld) [#/Vol] 10*3/uL Normal <0.[address] [facility] Comment on above: Order Comment: Speci men Type: BLOOD SPECIMENOrdering Facility: [facility] Address: [address] [place] [address] Performed By: #### 5 7021-8 ####[facility] LABCLIA [id number] [facility] [place] [address] [place] Immature granulocytes/100 WBC (Bld) 0.1 % Normal [facility] Comment on above: Order Comment: Speci men Type: BLOOD SPECIMENOrdering Facility: [facility] Address: [address] [place] [address] Performed By: #### 5 7021-8 ####[facility] LABCLIA [id number] [place] [address] [place] Lymphocytes (Bld) [#/Vol] 3.35 10*3/uL Normal 1.00-4.[address] [facility] Comment on above: Order Comment: Speci men Type: BLOOD SPECIMENOrdering Facility: [facility] Address: [address] [place] [address] Performed By: #### 5 7021-8 ####[facility] LABCLIA [id number] [facility] [place] [place] [address] [place] Lymphocytes/100 WBC (Bld) 46.4 % Normal [facility] Comment on above: Order Comment: Speci men Type: BLOOD SPECIMENOrdering Facility: [facility] Address: [address] [place] [address] Performed By: #### 5 7021-8 ####[facility] LABIA [id number] [place] [address] [place] MCH (RBC) [Entitic mass] 28.4 pg Normal 26.0-34.[address] [facility] Comment on above: Order Comment: Speci men Type: BLOOD SPECIMENOrdering Facility: [facility] Address: [address] [place] [address] Performed By: #### 5 7021-8 ####[facility] LABIA [id number] [place] [address] [place] MCHC (RBC) [Mass/Vol] 31.9 g/dL Normal 30.5-36.0 [facility] Comment on above: Order Comment: Speci men Type: BLOOD SPECIMENOrdering Facility: [facility] Address: [address] [place] [address] Performed By: #### 5 7021-8 ####[facility] [id number] [place] [address] [place] MCV (RBC) [Entitic vol] 89.0 fL Normal 80.0-100.0 [facility] Comment on above: Order Comment: Speci men Type: BLOOD SPECIMENOrdering Facility: [facility] Address: [address] [place] [address] Performed By: #### 5 7021-8 ####[facility] LABIA [id number] [place] [address] [place] Monocytes (Bld) [#/Vol] 0.55 10*3/uL Normal <0.[address] [facility] Comment on above: Order Comment: Speci men Type: BLOOD SPECIMENOrdering Facility: [facility] Address: [address] [place] [address] Performed By: #### 5 7021-8 ####[facility] [id number] [place] [id number] [place] Monocytes/100 WBC (Bld) 7.6 % Normal [facility] Comment on above: Order Comment: Speci men Type: BLOOD SPECIMENOrdering Facility: [facility] Address: [address] [place] [address] Performed By: #### 5 7021-8 ####[facility] LABCLIA [id number] [place] [address] [place] Neutrophils (Bld) [#/Vol] 3.09 10*3/uL Normal 1.45-7.[address] [facility] Comment on above: Order Comment: Speci men Type: BLOOD SPECIMENOrdering Facility: [facility] Address: [address] [place] [address] Performed By: #### 5 7021-8 ####[facility] LABCLIA [id number] [place] [address] [place] Neutrophils/100 WBC (Bld) 42.8 % Normal [facility] Comment on above: Order Comment: Speci men Type: BLOOD SPECIMENOrdering Facility: [facility] Address: [address] [place] [address] Performed By: #### 5 7021-8 ####[facility] LABCLIA [id number] [place] [address] [place] Nucleated RBC (Bld) [#/Vol] 10*3/uL Normal <0.[address] [facility] Comment on above: Order Comment: Speci men Type: BLOOD SPECIMENOrdering Facility: [facility] Address: [address] [place] [address] Performed By: #### 5 7021-8 ####[facility] LABCLIA [id number] [place] [address] [place] Nucleated RBC/100 WBC (Bld) [Ratio] 0.0 /100 WBC Normal [facility] Comment on above: Order Comment: Speci men Type: BLOOD SPECIMENOrdering Facility: [facility] Address: [address] [place] [address] Performed By: #### 5 7021-8 ####[facility] LABCLIA [id number] [place] [id number] [place] Platelet mean volume (Bld) [Entitic vol] 10.7 fL Normal 9.0-12.[address] [facility] Comment on above: Order Comment: Speci men Type: BLOOD SPECIMENOrdering Facility: [facility] Address: [address] [place] [address] Performed By: #### 5 7021-8 ####[facility] LABCLIA [id number] [place] [address] [place] Platelets (Bld) [#/Vol] 156 10*3/uL Normal 150-[address] [facility] Comment on above: Order Comment: Speci men Type: BLOOD SPECIMENOrdering Facility: [facility] Address: [address] [place] [address] Performed By: #### 5 7021-8 ####[facility] LABCLIA [id number] [place] [address] [place] RBC (Bld) [#/Vol] 4.62 10*6/uL Normal 3.90-5.20 [facility] Comment on above: Order Comment: Speci men Type: BLOOD SPECIMENOrdering Facility: [facility] Address: [address] [place] [address] Performed By: #### 5 7021-8 ####[facility] LABCLIA [id number] [address] [address] [place] WBC (Bld) [#/Vol] 7.22 10*3/uL Normal 3.70-11.00 [facility] Comment on above: Order Comment: Speci men Type: BLOOD SPECIMENOrdering Facility: [facility] Address: [address] [place] [address] Performed By: #### 5 7021-8 ####[facility] LABCLIA [id number] [address] [address] [place] CNOVon 10-03-2024 CNOV Normal [facility] Comprehensive metabolic 2000 panelon 10-03-2024 Albumin [Mass/Vol] 4.2 g/dL Normal 3.9-4.9 [facility] Comment on above: Order Comment: Speci men Type: BLOOD SPECIMENOrdering Facility: [facility] Address: [address] [place], [place] [address] Performed By: #### 2 4323-8, 0-3 ####[facility] LABCLIA [id number] [place] [id number] [place] ALP [Catalytic activity/Vol] 84 U/L Normal 34-[address] [facility] Comment on above: Order Comment: Speci men Type: BLOOD SPECIMENOrdering Facility: [facility] Address: [address] [place], [place] [address] Performed By: #### 2 4323-8, 0-3 ####[facility] LABCLIA [id number] [address] [address] [place] ALT [Catalytic activity/Vol] 20 U/L Normal 7-[address] [facility] Comment on above: Order Comment: Speci men Type: BLOOD SPECIMENOrdering Facility: [facility] Address: [address] [place], [place] [address] Performed By: #### 2 4323-8, 3040-3 ####[facility] LABCLIA [id number] [address] [address] [place] Anion gap [Moles/Vol] 13 mmol/L Normal 8-15 [facility] Comment on above: Order Comment: Speci men Type: BLOOD SPECIMENOrdering Facility: [facility] Address: [address] [place], [place] [address] Performed By: #### 2 4323-8, 3040-3 ####[facility] LABCLIA [id number] [address] [address] [place] AST [Catalytic activity/Vol] 22 U/L Normal 13-[address] [facility] Comment on above: Order Comment: Speci men Type: BLOOD SPECIMENOrdering Facility: [facility] Address: [address] [place] [address] Performed By: #### 2 4323-8, 3040-3 ####[facility] LABCLIA [id number] [place] [id number] [place] Bilirubin [Mass/Vol] 0.4 mg/dL Normal 0.2-1.3 [facility] Comment on above: Order Comment: Speci men Type: BLOOD SPECIMENOrdering Facility: [facility] Address: [address] [place] [address] Performed By: #### 2 4323-8, 3039-3 ####[facility] LABCLIA [id number] [place] [address] [place] Calcium [Mass/Vol] 9.4 mg/dL Normal 8.5-10.2 [facility] Comment on above: Order Comment: Speci men Type: BLOOD SPECIMENOrdering Facility: [facility] Address: [address] [place] [address] Performed By: #### 2 4323-8, 3039-3 ####[facility] LABCLIA [id number] [place] [id number] [place] Chloride [Moles/Vol] 105 mmol/L Normal 98-107 [facility] Comment on above: Order Comment: Speci men Type: BLOOD SPECIMENOrdering Facility: [facility] Address: [address] [place] [address] Performed By: #### 2 4323-8, 3040-3 ####[facility] LABCLIA [id number] [place] [id number] [place] CO2 [Moles/Vol] 22 mmol/L Normal 22-[address] [facility] Comment on above: Order Comment: Speci men Type: BLOOD SPECIMENOrdering Facility: [facility] Address: [address] [place] [id number] Performed By: #### 2 4323-8, 3039-3 ####[facility] LABCLIA [id number] [address] [address] [place] Creatinine [Mass/Vol] 0.95 mg/dL Normal 0.58-0.96 [facility] Comment on above: Order Comment: Speci men Type: BLOOD SPECIMENOrdering Facility: [facility] Address: [address] [place], [place] [address] Performed By: #### 2 4323-8, 3 ####[facility] LABIA [id number] [place] [address] [place] Creatinine and Glomerular filtration rate.predicted panel (S/P/Bld) 63 mL/min/1.73m??? Normal >=[address] [facility] Comment on above: Order Comment: Speci men Type: BLOOD SPECIMENOrdering Facility: [facility] Address: [address] [place] [address] Result Comment: Koki mated Glomerular Filtration Rate (eGFR) is calculated using the 2020 CKD-EPI creatinine equation. This equation utilizes serum creatinine, sex, and age as parameters. The creatinine assay has traceable calibration to isotope dilution-mass spectrometry. Refer to KDIGO guidelines for clinical interpretation. In patients with unstable renal function, e.g. those with acute kidney injury, the eGFR may not accurately reflect actual GFR. Performed By: #### 2 4323-8, 3039-3 ####[facility] LABIA [id number] [place] [id number] [place] Glucose [Mass/Vol] 108 mg/dL High 74-99 [facility] Comment on above: Order Comment: Speci men Type: BLOOD SPECIMENOrdering Facility: [facility] Address: [address] [place], [place] [address] Result Comment: The [place] Diabetes Association (ADA) provides guidance for cutoff values for fasting glucose and random glucose. The ADA defines fasting as no caloric intake for at least 8 hours. Fasting plasma glucose results between 100 to 125 mg/dL indicate increased risk for diabetes (prediabetes).Fasting plasma glucose results greater than or equal to 126 mg/dL meet the criteria for diagnosis of diabetes. In the absence of unequivocal hyperglycemia, results should be confirmed by repeat testing. In a patient with classic symptoms of hyperglycemia or hyperglycemic crisis, random plasma glucose results greater than or equal to 200 mg/dL meet the criteria for diagnosis of diabetes.Reference: Standards of Medical Care in Diabetes 2016, [place] [employer] Association. Diabetes Care. 2016.39(Suppl 1). Performed By: #### 2 4323-8, 3039-3 ####[facility] LABCLIA [id number] [place] [address] [place] Potassium [Moles/Vol] 4.2 mmol/L Normal 3.7-5.1 [facility] Comment on above: Order Comment: Speci men Type: BLOOD SPECIMENOrdering Facility: [facility] Address: [address] [place] [address] Performed By: #### 2 43238, 3039-3 ####[facility] LABCLIA [id number] [place] [address] [place] Protein [Mass/Vol] 7.1 g/dL Normal 6.3-8.0 [facility] Comment on above: Order Comment: Speci men Type: BLOOD SPECIMENOrdering Facility: [facility] Address: [address] [place] [address] Performed By: #### 2 4328, 3039-3 ####[facility] LABIA [id number] [place] [id number] [place] Sodium [Moles/Vol] 140 mmol/L Normal 136-144 [facility] Comment on above: Order Comment: Speci men Type: BLOOD SPECIMENOrdering Facility: [facility] Address: [address] [place] [address] Performed By: #### 2 43208-02, 3040-3 ####[facility] LABCLIA [id number] [place] [id number] [place] Urea nitrogen [Mass/Vol] 24 mg/dL High 7-[address] [facility] Comment on above: Order Comment: Speci men Type: BLOOD SPECIMENOrdering Facility: [facility] Address: [address] [place] [address] Performed By: #### 2 4323-8, 3040-3 ####[facility] LABIA [id number] [place] [id number] [place] Lipase SerPl-cCncon 10-04-19 25 Lipase [Catalytic activity/Vol] 30 U/L Normal 16- [facility] Comment on above: Order Comment: Speci men Type: BLOOD SPECIMENOrdering Facility: [facility] Address: [address] [place] [address] Performed By: #### 2 4323-8, 3040-3 ####[facility] [id number] [place] [address] [place] XR HIP TRISH 5V PEL+ AP/LAT EA HIPon 10-03-2024 XR HIP TRISH 5V PEL+ AP/LAT EA HIP Normal [facility] XR LUMBAR 3V AP/LAT/L5-S1on 10-03-2024 XR LUMBAR 3V AP/LAT/L5-S1 Normal [facility] CNOVon 09-23-2024 CNOV Normal [facility] Bacteria Ur Culton Bacteria identified Cx Nom (U) ORGANISM ID: 1 10,000 -<50,000 CFU/ml Normal urogenital monica Normal [facility] Comment on above: Performed By: #### 6 30-4 ####[facility] LABIA [id number] [place] [id number] [place] CNOVon 09-11-2024 CNOV Normal [facility] PT panel Coag (PPP)on 2024 INR Coag (PPP) [Relative time] 1.0 {INR} Normal 0.9-1.[address] [facility] Comment on above: Order Comment: Shalini pérez Type: BLOOD SPECIMENOrdering Facility: [facility] Address: [address] [place] [address] Result Comment: Karo min K Antagonist (VKA) Therapeutic Range: INR 2 to 3 (Target INR of 2.5)Note: For patients treated with VKA drugs, such as warfarin, the [place] [employer] 2012 Guideline recommends a therapeutic INR range of 2 to 3 (target INR of 2.5). This recommendation includes high-risk patients with antiphospholipid syndrome with previous arterial or venous thromboembolism, current-generation mechanical or bioprosthetic aortic heart valve replacement.Note: Patients with mechanical aortic valve replacement and additional risk factors for thromboembolic events (atrial fibrillation, previous thromboembolism, LV dysfunction, hypercoagulable conditions) or an older generation mechanical AVR (i.e., ball in-Cage) or any mechanical MVR should have a INR therapeutic range of 2.5 to 3.5 (target INR of 3).Juan GH, et al. Chest 2012, 141:7S-47SNishimura RA, et al. [facility] 2017, 70: 252-289 Performed By: #### 3 4528-0 ####[facility] ERJEANNETTE [id number] [place] [address] [place] PT Coag (PPP) [Time] 10.6 s Normal <13.1 [facility] Comment on above: Order Comment: Shalini pérez Type: BLOOD SPECIMENOrdering Facility: [facility] Address: [address] [place] [id number] Performed By: #### 3 4528-0 ####[facility]EL[facility] [id number] [place] [address] [place] Renal function 2000 panelOrd ered By: Dominick Lim on 09-11-2024 Albumin [Mass/Vol] 4.1 g/dL 3.9 - 4.9 g/dL [facility] Anion gap [Moles/Vol] 8 mmol/L 8 - 15 mmol/L [facility] Calcium [Mass/Vol] 9.4 mg/dL 8.5 - 10. 2 mg/dL [facility] Chloride [Moles/Vol] 104 mmol/L 98 - 10 7 mmol/L [facility] CO2 [Moles/Vol] 27 mmol/L 22 - 30 mmol/L [facility] Creatinine [Mass/Vol] 0.91 mg/dL 0.58 - 0.96 mg/dL [facility] GFR/1.73 sq M.predicted among non-blacks MDRD (S/P/Bld) [Vol rate/Area] 66 mL/min/{1.73_m2} - [facility] Comment on above: Estimated Glomerular Filtration Rate (eGFR) is calculated using the 2020 CKD-EPI creatinine equation. This equation utilizes serum creatinine, sex, and age as parameters. The creatinine assay has traceable calibration to isotope dilution-mass spectrometry. Refer to KDIGO guidelines for clinical interpretation. In patients with unstable renal function, e.g. those with acute kidney injury, the eGFR may not accurately reflect actual GFR. Glucose [Mass/Vol] 106 mg/dL High 74 - 99 mg/dL [facility] Comment on above: The [place] Diabete s Association (ADA) provides guidance for cutoff values for fasting glucose and random glucose. The ADA defines fasting as no caloric intake for at least 8 hours. Fasting plasma glucose results between 100 to 125 mg/dL indicate increased risk for diabetes (prediabetes). Fasting plasma glucose results greater than or equal to 126 mg/dL meet the criteria for diagnosis of diabetes. In the absence of unequivocal hyperglycemia, results should be confirmed by repeat testing. In a patient with classic symptoms of hyperglycemia or hyperglycemic crisis, random plasma glucose results greater than or equal to 200 mg/dL meet the criteria for diagnosis of diabetes. Reference: Standards of Medical Care in Diabetes 2016, [place] [employer] Association. Diabetes Care. 2016.39(Suppl 1). Interpretation and review of laboratory results Abnormal [facility] Phosphate [Mass/Vol] 3.2 mg/dL 2.7 - 4 .8 mg/dL [facility] Potassium [Moles/Vol] 4.2 mmol/L 3.7 - 5.1 mmol/L [facility] Sodium [Moles/Vol] 139 mmol/L 136 - 144 mmol/L [facility] Urea nitrogen [Mass/Vol] 20 mg/dL 7 - 21 mg/dL [facility] Renal function 2000 panelon 09-11-2024 Albumin [Mass/Vol] 4.1 g/dL Normal 3.9-4.9 [facility] Comment on above: Order Comment: Speci men Type: BLOOD SPECIMENOrdering Facility: [facility] Address: [address] [place] [address] Performed By: #### 2 4362-6 ####[facility] MIAMIWNCLIA [id number] [place] [address] [place] Anion gap [Moles/Vol] 8 mmol/L Normal 8-15 [facility] Comment on above: Order Comment: Speci men Type: BLOOD SPECIMENOrdering Facility: [facility] Address: [address] [place] [address] Performed By: #### 2 4362-6 ####[facility] ERNCLIA [id number] [place] [address] [place] Calcium [Mass/Vol] 9.4 mg/dL Normal 8.5-10.2 [facility] Comment on above: Order Comment: Speci men Type: BLOOD SPECIMENOrdering Facility: [facility] Address: [address] [place] [address] Performed By: #### 2 4362-6 ####[facility] ERNCLIA [id number] [place] [address] [place] Chloride [Moles/Vol] 104 mmol/L Normal 98-107 [facility] Comment on above: Order Comment: Speci men Type: BLOOD SPECIMENOrdering Facility: [facility] Address: [address] [place] [address] Performed By: #### 2 4362-6 ####[facility] ERNCLIA [id number] [place] [address] [place] CO2 [Moles/Vol] 27 mmol/L Normal 22-[address] [facility] Comment on above: Order Comment: Speci men Type: BLOOD SPECIMENOrdering Facility: [facility] Address: [address] [place] [address] Performed By: #### 2 4362-6 ####[facility] [id number] [place] [address] [place] Creatinine [Mass/Vol] 0.91 mg/dL Normal 0.58-0.96 [facility] Comment on above: Order Comment: Speci men Type: BLOOD SPECIMENOrdering Facility: [facility] Address: [address] [place] [address] Performed By: #### 2 4362-6 ####[facility] [id number] [place] [address] [place] Creatinine and Glomerular filtration rate.predicted panel (S/P/Bld) 66 mL/min/1.73m??? Normal >=[address] [facility] Comment on above: Order Comment: Speci men Type: BLOOD SPECIMENOrdering Facility: [facility] Address: [address] [place] [address] Result Comment: Koki mated Glomerular Filtration Rate (eGFR) is calculated using the 2020 CKD-EPI creatinine equation. This equation utilizes serum creatinine, sex, and age as parameters. The creatinine assay has traceable calibration to isotope dilution-mass spectrometry. Refer to KDIGO guidelines for clinical interpretation. In patients with unstable renal function, e.g. those with acute kidney injury, the eGFR may not accurately reflect actual GFR. Performed By: #### 2 4362-6 ####[facility] HOSPITALLI [id number] [place] [address] [place] Glucose [Mass/Vol] 106 mg/dL High 74-99 [facility] Comment on above: Order Comment: Speci men Type: BLOOD SPECIMENOrdering Facility: [facility] Address: [address] [place] [address] Result Comment: The [place] Diabetes Association (ADA) provides guidance for cutoff values for fasting glucose and random glucose. The ADA defines fasting as no caloric intake for at least 8 hours. Fasting plasma glucose results between 100 to 125 mg/dL indicate increased risk for diabetes (prediabetes).Fasting plasma glucose results greater than or equal to 126 mg/dL meet the criteria for diagnosis of diabetes. In the absence of unequivocal hyperglycemia, results should be confirmed by repeat testing. In a patient with classic symptoms of hyperglycemia or hyperglycemic crisis, random plasma glucose results greater than or equal to 200 mg/dL meet the criteria for diagnosis of diabetes.Reference: Standards of Medical Care in Diabetes 2016, [place] Diabetes Association. Diabetes Care. 2016.39(Suppl 1). Performed By: #### 2 4362-6 ####[facility] HOSPITALLIA [id number] [place] [address] [place] Phosphate [Mass/Vol] 3.2 mg/dL Normal 2.7-4.8 [facility] Comment on above: Order Comment: Speci men Type: BLOOD SPECIMENOrdering Facility: [facility] Address: [address] [place] [address] Performed By: #### 2 4362-6 ####[facility] RIVERSIDEA [id number] [place] [address] [place] Potassium [Moles/Vol] 4.2 mmol/L Normal 3.7-5.1 [facility] Comment on above: Order Comment: Speci men Type: BLOOD SPECIMENOrdering Facility: [facility] Address: [address] [place] [address] Performed By: #### 2 4362-6 ####[facility]ALLIA [id number] [place] [address] [place] Sodium [Moles/Vol] 139 mmol/L Normal 136-144 [facility] Comment on above: Order Comment: Speci men Type: BLOOD SPECIMENOrdering Facility: [facility] Address: [address] [id number] Performed By: #### 2 4362-6 ####[facility]ALL[facility] [id number] [place] [address] [place] Urea nitrogen [Mass/Vol] 20 mg/dL Normal 7-[address] [facility] Comment on above: Order Comment: Speci men Type: BLOOD SPECIMENOrdering Facility: [facility] Address: [facility] [place] [id number] Performed By: #### 2 4362-6 ####[facility] [id number] [place] [address] [place] UA DIP, URINE (POC)on 2024 BILIRUBIN UA (POCT) Negative Negative [facility] CLARITY UA (POCT) Slightly Cloudy Cl [facility] COLOR UA (POCT) Other [facility] GLUCOSE UA (POCT) Negative Negative mg/dL [facility] Hemoglobin Ql (U) Small Abnormal Negative [facility] Interpretation and review of laboratory results Abnormal [facility] KETONE UA (POCT) Negative Negative mg/dL [facility] LEUKOCYTES UA (POCT) Negative Negative [facility] NITRITE UA (POCT) Negative Negative [facility] PH UA (POCT) 6.5 4.5 - 8.0 [facility] Protein Ql (U) Negative Negative mg/dL [facility] SPECIFIC GRAVITY UA (POCT) 1.02 1 .005 - 1.030 [facility] UROBILINOGEN UA (POCT) 0.2 Jovita l E.U./dL [facility] Location:[address], [address] [place] [address] POINT OF CARE [facility] CNPNon 08-15-2024 CNPN Normal [facility] CNPNon 08-11-2024 CNPN Normal [facility] CNOVon 07-28-2024 CNOV Normal [facility] CNPNon 07-28-2024 CNPN Normal [facility] US DVT LOWER RTon 07-28-2024 US DVT LOWER RT * * *Final Report* * * DATE OF EXAM: Jul 28 2024 3:25PM LDU 1007 - US DVT LOWER RT / PROCEDURE REASON: multiple diagnoses * * * * Physician Interpretation * * * * EXAMINATION: RIGHT LOWER EXTREMITY DEEP VENOUS ULTRASOUND WITH DOPPLER IMAGING CLINICAL HISTORY: Leg pain or tenderness. TECHNIQUE: Grayscale with compression maneuvers, color Doppler and spectral Doppler imaging of the right proximal deep veins was performed. Grayscale with compression maneuvers of the peroneal and posterior tibial veins was performed. The right great and small saphenous veins were evaluated at their insertion to the deep system. The contralateral common femoral vein was imaged for comparison. Images were obtained and stored in a permanent archive. MQ: USLER_1 COMPARISON: None RESULT: RIGHT LOWER EXTREMITY PROXIMAL DEEP VEINS Distal External Iliac, Common Femoral and proximal Profunda Veins: Compression: Normal Doppler: Normal, spontaneous respirophasic flow. Normal response to augmentation. Femoral vein: Compression: Normal Doppler: Normal, spontaneous flow. Normal response to augmentation. Popliteal vein: Compression: Normal Doppler: Normal, spontaneous flow. Normal response to augmentation. CALF DEEP VEINS Peroneal veins: Normal compression proximally, not seen distally. Posterior tibial veins: Normal compression proximally, not seen distally. Gastrocnemius and Soleal veins: Not imaged. SUPERFICIAL VEINS Great saphenous: Patent and compressible at insertion into common femoral vein; not otherwise assessed. Small Saphenous: Not identified. LEFT LOWER EXTREMITY (FOR COMPARISON) Common Femoral Vein: Compression: Normal Doppler: Normal, spontaneous respirophasic flow. Normal response to augmentation. IMPRESSION: Negative study for proximal DVT in the right lower extremity. Negative study for proximal calf DVT in the right lower extremity with limited visualization of the distal calf veins. Negative study for superficial thrombophlebitis in the imaged segments of the right lower extremity. Head Of Stock: RUTH Transcribe Date/Time: Jul 28 2024 3:31P Dictated by : SERGO STEEN DO This examination was interpreted and the report reviewed and electronically signed by: SERGO STEEN DO on Jul 28 2024 3:32PM EST [id number] Normal [facility] US Lower extremity vein - ri [facility] 07-28-2024 IMPRESSION: Negative study for proximal DVT in the right lower extremity. Negative study for proximal calf DVT in the right lower extremity with limited visualization of the distal calf veins. Negative study for superficial thrombophlebitis in the imaged segments of the right lower extremity. Head Of Stock: RUTH Transcribe Date/Time: Jul 28 2024 3:31P Dictated by : SERGO STEEN DO This examination was interpreted and the report reviewed and electronically signed by: SERGO STEEN DO on Jul 28 2024 3:32PM EST [employer] [facility] * * *Final Report* * * DATE OF EXAM: Jul 28 2024 3:25PM LDU 1007 - US DVT LOWER RT / PROCEDURE REASON: multiple diagnoses * * * * Physician Interpretation * * * * EXAMINATION: RIGHT LOWER EXTREMITY DEEP VENOUS ULTRASOUND WITH DOPPLER IMAGING CLINICAL HISTORY: Leg pain or tenderness. TECHNIQUE: Grayscale with compression maneuvers, color Doppler and spectral Doppler imaging of the right proximal deep veins was performed. Grayscale with compression maneuvers of the peroneal and posterior tibial veins was performed. The right great and small saphenous veins were evaluated at their insertion to the deep system. The contralateral common femoral vein was imaged for comparison. Images were obtained and stored in a permanent archive. MQ: USLER_1 COMPARISON: None RESULT: RIGHT LOWER EXTREMITY PROXIMAL DEEP VEINS Distal External Iliac, Common Femoral and proximal Profunda Veins: Compression: Normal Doppler: Normal, spontaneous respirophasic flow. Normal response to augmentation. Femoral vein: Compression: Normal Doppler: Normal, spontaneous flow. Normal response to augmentation. Popliteal vein: Compression: Normal Doppler: Normal, spontaneous flow. Normal response to augmentation. CALF DEEP VEINS Peroneal veins: Normal compression proximally, not seen distally. Posterior tibial veins: Normal compression proximally, not seen distally. Gastrocnemius and Soleal veins: Not imaged. SUPERFICIAL VEINS Great saphenous: Patent and compressible at insertion into common femoral vein; not otherwise assessed. Small Saphenous: Not identified. LEFT LOWER EXTREMITY (FOR COMPARISON) Common Femoral Vein: Compression: Normal Doppler: Normal, spontaneous respirophasic flow. Normal response to augmentation. [facility] Provider, [facility] - 07/28/2024 * * *Final Report* * * DATE OF EXAM: Jul 28 2024 3:25PM LDU 1007 - US DVT LOWER RT / PROCEDURE REASON: multiple diagnoses * * * * Physician Interpretation * * * * EXAMINATION: RIGHT LOWER EXTREMITY DEEP VENOUS ULTRASOUND WITH DOPPLER IMAGING CLINICAL HISTORY: Leg pain or tenderness. TECHNIQUE: Grayscale with compression maneuvers, color Doppler and spectral Doppler imaging of the right proximal deep veins was performed. Grayscale with compression maneuvers of the peroneal and posterior tibial veins was performed. The right great and small saphenous veins were evaluated at their insertion to the deep system. The contralateral common femoral vein was imaged for comparison. Images were obtained and stored in a permanent archive. MQ: LER_1 COMPARISON: None RESULT: RIGHT LOWER EXTREMITY PROXIMAL DEEP VEINS Distal External Iliac, Common Femoral and proximal Profunda Veins: Compression: Normal Doppler: Normal, spontaneous respirophasic flow. Normal response to augmentation. Femoral vein: Compression: Normal Doppler: Normal, spontaneous flow. Normal response to augmentation. Popliteal vein: Compression: Normal Doppler: Normal, spontaneous flow. Normal response to augmentation. CALF DEEP VEINS Peroneal veins: Normal compression proximally, not seen distally. Posterior tibial veins: Normal compression proximally, not seen distally. Gastrocnemius and Soleal veins: Not imaged. SUPERFICIAL VEINS Great saphenous: Patent and compressible at insertion into common femoral vein; not otherwise assessed. Small Saphenous: Not identified. LEFT LOWER EXTREMITY (FOR COMPARISON) Common Femoral Vein: Compression: Normal Doppler: Normal, spontaneous respirophasic flow. Normal response to augmentation. IMPRESSION IMPRESSION: Negative study for proximal DVT in the right lower extremity. Negative study for proximal calf DVT in the right lower extremity with limited visualization of the distal calf veins. Negative study for superficial thrombophlebitis in the imaged segments of the right lower extremity. Head Of Stock: PSCB Transcribe Date/Time: Jul 28 2024 3:31P Dictated by : SERGO STEEN DO This examination was interpreted and the report reviewed and electronically signed by: SERGO STEEN DO on Jul 28 2024 3:32PM EST [facility] Radiology Study observation (narrative) [facility] US Lower extremity vein - ri ghtOrdered By: Ccf Provider on 07-28-2024 [facility] CBC W Auto Differential pane l (Bld)on 07-24-2024 Basophils (Bld) [#/Vol] 0.03 10*3/uL Normal <0.[address] [facility] Comment on above: Order Comment: Speci men Type: BLOOD SPECIMENOrdering Facility: [facility] Address: [address] [place] [address] Performed By: #### 5 7021-8 ####[facility] [id number] [place] [id number] [place] Basophils/100 WBC (Bld) 0.5 % Normal [facility] Comment on above: Order Comment: Speci men Type: BLOOD SPECIMENOrdering Facility: [facility] Address: [address] [place] [address] Performed By: #### 5 7021-8 ####[facility] MIAMIWMELIA [id number] [place] [address] [place] Differential cell count method Nom (Bld) Auto Normal [facility] Comment on above: Order Comment: Speci men Type: BLOOD SPECIMENOrdering Facility: [facility] Address: [address] [place] [address] Performed By: #### 5 7021-8 ####[facility] RIVERSIDEA [id number] [place] [address] [place] Eosinophils (Bld) [#/Vol] 0.20 10*3/uL Normal <0.[address] [facility] Comment on above: Order Comment: Speci men Type: BLOOD SPECIMENOrdering Facility: [facility] Address: [address] [place] [address] Performed By: #### 5 7021-8 ####[facility] RIVERSIDEA [id number] [place] [address] [place] Eosinophils/100 WBC (Bld) 3.4 % Normal [facility] Comment on above: Order Comment: Speci men Type: BLOOD SPECIMENOrdering Facility: [facility] Address: [address] [place] [address] Performed By: #### 5 7021-8 ####[facility] [id number] [place] [address] [place] Erythrocyte distribution width (RBC) [Ratio] 14.7 % Normal 11.5-15.[address] [facility] Comment on above: Order Comment: Speci men Type: BLOOD SPECIMENOrdering Facility: [facility] Address: [address] [place] [address] Performed By: #### 5 7021-8 ####[facility] ELIWSHANTLIA [id number] [place] [address] [place] Hematocrit (Bld) [Volume fraction] 39.9 % Normal 36.0-46.[address] [facility] Comment on above: Order Comment: Speci men Type: BLOOD SPECIMENOrdering Facility: [facility] Address: [address] [place] [address] Performed By: #### 5 7021-8 ####[facility] ERSHANTLIA [id number] [place] [address] [place] Hemoglobin (Bld) [Mass/Vol] 12.7 g/dL Normal 11.5-15. [address] [facility] Comment on above: Order Comment: Speci men Type: BLOOD SPECIMENOrdering Facility: [facility] Address: [address] [place] [address] Performed By: #### 5 7021-8 ####[facility] ERSHANTLIA [id number] [place] [address] [place] Immature granulocytes (Bld) [#/Vol] 10*3/uL Normal <0.[address] [facility] Comment on above: Order Comment: Speci men Type: BLOOD SPECIMENOrdering Facility: [facility] Address: [address] [place] [address] Performed By: #### 5 7021-8 ####[facility] MARILYNWNCLIA [id number] [place] [address] [place] Immature granulocytes/100 WBC (Bld) 0.2 % Normal [facility] Comment on above: Order Comment: Speci men Type: BLOOD SPECIMENOrdering Facility: [facility] Address: [address] [place] [address] Performed By: #### 5 7021-8 ####[facility] ERSHANTLIA [id number] [place] [address] [place] Lymphocytes (Bld) [#/Vol] 2.94 10*3/uL Normal 1.00-4.[address] [facility] Comment on above: Order Comment: Speci men Type: BLOOD SPECIMENOrdering Facility: [facility] Address: [address] [place] [address] Performed By: #### 5 7021-8 ####[facility] [id number] [place] [address] [place] Lymphocytes/100 WBC (Bld) 49.5 % Normal [facility] Comment on above: Order Comment: Speci men Type: BLOOD SPECIMENOrdering Facility: [facility] Address: [address] [place] [address] Performed By: #### 5 7021-8 ####[facility] [id number] [place] [address] [place] MCH (RBC) [Entitic mass] 28.3 pg Normal 26.0-34.[address] [facility] Comment on above: Order Comment: Speci men Type: BLOOD SPECIMENOrdering Facility: [facility] Address: [address] [place] [address] Performed By: #### 5 7021-8 ####[facility] HOSPITALMARILUZA [id number] [place] [address] [place] MCHC (RBC) [Mass/Vol] 31.8 g/dL Normal 30.5-36.0 [facility] Comment on above: Order Comment: Speci men Type: BLOOD SPECIMENOrdering Facility: [facility] Address: [address] [place] [address] Performed By: #### 5 7021-8 ####[facility] ERNCLI [id number] [place] [address] [place] MCV (RBC) [Entitic vol] 88.9 fL Normal 80.0-100.0 [facility] Comment on above: Order Comment: Speci men Type: BLOOD SPECIMENOrdering Facility: [facility] Address: [address] [place] [address] Performed By: #### 5 7021-8 ####[facility] ERNCUINTA[facility] [id number] [place] [address] [place] Monocytes (Bld) [#/Vol] 0.52 10*3/uL Normal <0.[address] [facility] Comment on above: Order Comment: Speci men Type: BLOOD SPECIMENOrdering Facility: [facility] Address: [address] [place] [address] Performed By: #### 5 7021-8 ####[facility] [id number] [place] [address] [place] Monocytes/100 WBC (Bld) 8.8 % Normal [facility] Comment on above: Order Comment: Speci men Type: BLOOD SPECIMENOrdering Facility: [facility] Address: [address] [place] [address] Performed By: #### 5 7021-8 ####[facility] [id number] [place] [address] [place] Neutrophils (Bld) [#/Vol] 2.24 10*3/uL Normal 1.45-7.[address] [facility] Comment on above: Order Comment: Speci men Type: BLOOD SPECIMENOrdering Facility: [facility] Address: [address] [place] [address] Performed By: #### 5 7021-8 ####[facility] [id number] [place] [address] [place] Neutrophils/100 WBC (Bld) 37.6 % Normal [facility] Comment on above: Order Comment: Speci men Type: BLOOD SPECIMENOrdering Facility: [facility] Address: [address] [place] [address] Performed By: #### 5 7021-8 ####[facility] KASANDRAA [id number] [place] [address] [place] Nucleated RBC (Bld) [#/Vol] 10*3/uL Normal <0.[address] [facility] Comment on above: Order Comment: Speci men Type: BLOOD SPECIMENOrdering Facility: [facility] Address: [address] [place] [address] Performed By: #### 5 7021-8 ####[facility] ERJEANNETTE [id number] [place] [address] [place] Nucleated RBC/100 WBC (Bld) [Ratio] 0.0 /100 WBC Normal [facility] Comment on above: Order Comment: Speci men Type: BLOOD SPECIMENOrdering Facility: [facility] Address: [address] [place] [address] Performed By: #### 5 7021-8 ####[facility] HOSPITALMARILUZ [id number] [place] [address] [place] Platelet mean volume (Bld) [Entitic vol] 10.6 fL Normal 9.0-12.[address] [facility] Comment on above: Order Comment: Speci men Type: BLOOD SPECIMENOrdering Facility: [facility] Address: [address] [place] [address] Performed By: #### 5 7021-8 ####[facility] ERSHANTLIA [id number] [place] [address] [place] Platelets (Bld) [#/Vol] 274 10*3/uL Normal 150-[address] [facility] Comment on above: Order Comment: Speci men Type: BLOOD SPECIMENOrdering Facility: [facility] Address: [address] [place] [address] Performed By: #### 5 7021-8 ####[facility] HOSPITALLIA [id number] [place] [address] [place] RBC (Bld) [#/Vol] 4.49 10*6/uL Normal 3.90-5.20 [facility] Comment on above: Order Comment: Speci men Type: BLOOD SPECIMENOrdering Facility: [facility] Address: [address] [place] [address] Performed By: #### 5 7021-8 ####[facility] RIVERSIDEA [id number] [place] [address] [place] WBC (Bld) [#/Vol] 5.94 10*3/uL Normal 3.70-11.00 [facility] Comment on above: Order Comment: Speci men Type: BLOOD SPECIMENOrdering Facility: [facility] Address: [address] [place] [address] Performed By: #### 5 7021-8 ####[facility]IV[facility] [id number] [place] [address] [place] CNPNon 07-24-2024 CNPN Normal [facility] Comprehensive metabolic 2000 panelon 07-24-2024 Albumin [Mass/Vol] 3.9 g/dL Normal 3.9-4.9 [facility] Comment on above: Order Comment: Speci men Type: BLOOD SPECIMENOrdering Facility: [facility] Address: [address] [place], [place] [address] Performed By: #### 2 4323-8 ####[facility] HOSPITALLIA [id number] [place] [address] [place]#### 69687-8 ####[facility]ORATORYCLIA [id number] [place] [address] [place] [facility] [id number] [place] [address] [place] ALP [Catalytic activity/Vol] 94 U/L Normal 34-[address] [facility] Comment on above: Order Comment: Speci men Type: BLOOD SPECIMENOrdering Facility: [facility] Address: [facility] [place] [address] Performed By: #### 2 4323-8 ####[facility] MILLTOWNCLIA [id number] [place] [address] [place]#### 84309-0 ####[facility]ORATORYCLIA [id number] [place] [address] [place] AMERICAMERCY HEALTH ANDERSON HOSPITALLIA [id number] [place] [address] [place] ALT [Catalytic activity/Vol] 20 U/L Normal 7-[address] [facility] Comment on above: Order Comment: Speci men Type: BLOOD SPECIMENOrdering Facility: [facility] Address: [address] [place] [address] Performed By: #### 2 4323-8 ####[facility] MILLTOWNCLIA [id number] [place] [address] [place]#### 90570-3 ####[facility]ORATORYCLIA [id number] [place] [address] [place] AMERICABAPTIST HEALTH [facility] OF MIAMIWMELIA [id number] [place] [address] [place] Anion gap [Moles/Vol] 11 mmol/L Normal 8-15 [facility] Comment on above: Order Comment: Speci men Type: BLOOD SPECIMENOrdering Facility: [facility] Address: [address] [place] [address] Performed By: #### 2 4323-8 ####[facility] MILLTOWNCLIA [id number] [place] [address] [place]#### 17711-1 ####[facility]ORATORYCLIA [id number] [address] [id number] [place] [address] [place] AST [Catalytic activity/Vol] 20 U/L Normal 13-[address] [facility] Comment on above: Order Comment: Speci men Type: BLOOD SPECIMENOrdering Facility: [facility] Address: [address] [place] [address] Performed By: #### 2 4323-8 ####[facility]ITALLIA [id number] [place] [address] [place]#### 54726-0 ####[facility] LABORATORYCLIA [id number] [address] [id number] [place] [address] [place] Bilirubin [Mass/Vol] 0.3 mg/dL Normal 0.2-1.3 [facility] Comment on above: Order Comment: Speci men Type: BLOOD SPECIMENOrdering Facility: [facility] Address: [address] [place] [address] Performed By: #### 2 4323-8 ####[facility]ITALLIA [id number] [place] [address] [place]#### 59172-3 ####[facility]ORATORYCLIA [id number] [address] STATES OF [facility] [id number] [place] [address] [place] Calcium [Mass/Vol] 9.0 mg/dL Normal 8.5-10.2 [facility] Comment on above: Order Comment: Speci men Type: BLOOD SPECIMENOrdering Facility: [facility] Address: [address] [place] [address] Performed By: #### 2 4323-8 ####[facility] MILLTOWNCLIA [id number] [place] [address] [place]#### 26257-9 ####[facility]ORATORYCLIA [id number] [address] STATES OF [facility]THWMELIA [id number] [place] [address] [place] Chloride [Moles/Vol] 104 mmol/L Normal 98-107 [facility] Comment on above: Order Comment: Speci men Type: BLOOD SPECIMENOrdering Facility: [facility] Address: [address] [place] [address] Performed By: #### 2 4323-8 ####[facility] MIAMIWNCLIA [id number] [place] [address] [place]#### 50539-6 ####[facility]ORATORYCLIA [id number] [place] [address] [place] [facility] [id number] [place] [address] [place] CO2 [Moles/Vol] 24 mmol/L Normal 22-[address] [facility] Comment on above: Order Comment: Speci men Type: BLOOD SPECIMENOrdering Facility: [facility] Address: [address] [place] [address] Performed By: #### 2 4323-8 ####[facility] MILLWNCLIA [id number] [place] [address] [place]#### 76577-9 ####[facility]ORATORYCLIA [id number] [place] [address] [place] AMERICAPROMED[facility] MILLWMELIA [id number] [place] [address] [place] Creatinine [Mass/Vol] 0.86 mg/dL Normal 0.58-0.96 [facility] Comment on above: Order Comment: Speci men Type: BLOOD SPECIMENOrdering Facility: [facility] Address: [address] [place] [address] Performed By: #### 2 4323-8 ####[facility] MIAMIWMELIA [id number] [place] [address] [place]#### 80447-5 ####[facility] LABORATORYCLIA [id number] [address] [id number] [address] STATES OF [facility] Creatinine and Glomerular filtration rate.predicted panel (S/P/Bld) 71 mL/min/1.73m??? Normal >=[address] [facility] Comment on above: Order Comment: Speci men Type: BLOOD SPECIMENOrdering Facility: [facility] Address: [address] [place] [address] Result Comment: Koki mated Glomerular Filtration Rate (eGFR) is calculated using the 2020 CKD-EPI creatinine equation. This equation utilizes serum creatinine, sex, and age as parameters. The creatinine assay has traceable calibration to isotope dilution-mass spectrometry. Refer to KDIGO guidelines for clinical interpretation. In patients with unstable renal function, e.g. those with acute kidney injury, the eGFR may not accurately reflect actual GFR. Performed By: #### 2 4323-8 ####[facility] RIVERSIDEA [id number] [place] [address] [place] [facility] [place]#### 19142-4 ####[facility] LABORATORYCLIA [id number] [address] [id number] [place] [address] [place] Glucose [Mass/Vol] 111 mg/dL High 74-99 [facility] Comment on above: Order Comment: Speci men Type: BLOOD SPECIMENOrdering Facility: [facility] Address: [address] [place] [address] Result Comment: The [place] Diabetes Association (ADA) provides guidance for cutoff values for fasting glucose and random glucose. The ADA defines fasting as no caloric intake for at least 8 hours. Fasting plasma glucose results between 100 to 125 mg/dL indicate increased risk for diabetes (prediabetes).Fasting plasma glucose results greater than or equal to 126 mg/dL meet the criteria for diagnosis of diabetes. In the absence of unequivocal hyperglycemia, results should be confirmed by repeat testing. In a patient with classic symptoms of hyperglycemia or hyperglycemic crisis, random plasma glucose results greater than or equal to 200 mg/dL meet the criteria for diagnosis of diabetes.Reference: Standards of Medical Care in Diabetes 2016, [place] Diabetes Association. Diabetes Care. 2016.39(Suppl 1). Performed By: #### 2 4323-8 ####[facility] MIAMIWMELIA [id number] [place] [address] [place]#### 27198-2 ####[facility] LABORATORYCLIA [id number] [address] [id number] [place] [address] [place] Potassium [Moles/Vol] 4.0 mmol/L Normal 3.7-5.1 [facility] Comment on above: Order Comment: Speci men Type: BLOOD SPECIMENOrdering Facility: [facility] Address: [address] [id number] Performed By: #### 2 4323-8 ####[facility] MIAMIWMELIA [id number] [place] [address] [place]#### 49523-6 ####[facility]ORATORYCLIA [id number] [address] [id number] [place] [address] [place] Protein [Mass/Vol] 6.8 g/dL Normal 6.3-8.0 [facility] Comment on above: Order Comment: Speci men Type: BLOOD SPECIMENOrdering Facility: [facility] Address: [address] [place] [address] Performed By: #### 2 4323-8 ####[facility] MILLTOWNCLIA [id number] [place] [address] [place]#### 55213-2 ####[facility]ORATORYCLIA [id number] [place] [address] [place] AMERICASELECT [facility] MILLWMELIA [id number] [place] [address] [place] Sodium [Moles/Vol] 139 mmol/L Normal 136-144 [facility] Comment on above: Order Comment: Speci men Type: BLOOD SPECIMENOrdering Facility: [facility] Address: [facility] [place] [address] Performed By: #### 2 4323-8 ####[facility] MILLTOWNCLIA [id number] [place] [address] [place]#### 98941-0 ####[facility]ORATORYCLIA [id number] [place] [address] [place] AMERICASELECT [facility] MILLTOWNCLIA [id number] [place] [address] [place] Urea nitrogen [Mass/Vol] 24 mg/dL High 7-[address] [facility] Comment on above: Order Comment: Speci men Type: BLOOD SPECIMENOrdering Facility: [facility] Address: [facility] [place] [address] Performed By: #### 2 4323-8 ####[facility] MILLTOWNCLIA [id number] [place] [address] [place]#### 87492-7 ####[facility]ORATORYCLIA [id number] [address] [id number] [place] [address] [place] [facility] Lipid 1996 panelon 5 Cholesterol [Mass/Vol] 199 mg/dL Normal <[address] [facility] Comment on above: Order Comment: Speci men Type: BLOOD SPECIMENOrdering Facility: [facility] Address: [address] [place] [address] Result Comment: <200 mg/dL, Desirable 200-239 mg/dL, Borderline high>239 mg/dL, High Performed By: #### 2 4323-8 ####[facility] [id number] [place] [address] [place]#### 42994-3 ####[facility]ORATORYCLIA [id number] [address] [id number] [place] [address] [place] Cholesterol in HDL [Mass/Vol] 63 mg/dL Normal >[address] [facility] Comment on above: Order Comment: Speci men Type: BLOOD SPECIMENOrdering Facility: [facility] Address: [address] [place] [address] Result Comment: 40-5 9 mg/dL, Acceptable>59 mg/dL, High: Negative risk factor for coronary heart disease<40 mg/dL, Low: Positive risk factor for coronary heart disease Performed By: #### 2 4323-8 ####[facility] MIAMIWNCLIA [id number] [place] [address] [place]#### 34985-7 ####[facility]ORATORYCLIA [id number] [address] [id number] [place] [address] [place] Cholesterol in LDL [Mass/Vol] 115 mg/dL High <[address] [facility] Comment on above: Order Comment: Speci men Type: BLOOD SPECIMENOrdering Facility: [facility] Address: [address] [place] [address] Result Comment: <100 mg/dL, Optimal 100-129 mg/dL, Near optimal/above optimal 130-159 mg/dL, Borderline high 160-189 mg/dL, High>189 mg/dL, Very highSecondary prevention optimal LDL Cholesterol levels are recommended to be < 70 mg/dL Performed By: #### 2 4323-8 ####[facility]PITALLIA [id number] [address]#### 56428-9 ####[facility]ORATORYCLIA [id number] [address] [id number] [address] STATES OF [place] Cholesterol in LDL/Cholesterol in HDL [Mass ratio] 1.83 {ratio} Normal <2.[address] [facility] Comment on above: Order Comment: Speci men Type: BLOOD SPECIMENOrdering Facility: [facility] Address: [address] [place] [address] Result Comment: Chetan hyman:1. National Cholesterol Education Program ATP III Guideline At-A-Glance Quick Desk Reference: National Heart, Lung, and Blood Alanson. National Institutes of Health. 2001: NIH Publication No. 01-3305.2. An International Atherosclerosis Society position paper: global recommendations for the management of dyslipidemia: executive summary, Atherosclerosis. 2014: 232(2):410-413. Performed By: #### 2 4323-8 ####[facility]ITALLIA [id number] [address]#### 68401-5 ####[facility]ORATORYCLIA [id number] [address]ELIA [id number] [address] [place] OF [place] Cholesterol in VLDL [Mass/Vol] 21 mg/dL Normal <[address] [facility] Comment on above: Order Comment: Speci men Type: BLOOD SPECIMENOrdering Facility: [facility] Address: [address] [place] [address] Performed By: #### 2 4323-8 ####[facility] [id number] [address] STATES [place]#### 49424-3 ####[facility] LABORATORYCLIA [id number] [address] [id number] [address] STATES OF [place] Cholesterol non HDL [Mass/Vol] 136 mg/dL High <[address] [facility] Comment on above: Order Comment: Speci men Type: BLOOD SPECIMENOrdering Facility: [facility] Address: [address] [place] [address] Result Comment: <130 mg/dL, Optimal 130-159 mg/dL, Near optimal/above optimal 160-189 mg/dL, Borderline high 190-219 mg/dL, High>219 mg/dL, Very highSecondary prevention optimal non HDL Cholesterol levels are recommended to be <100 mg/dL Performed By: #### 2 4323-8 ####[facility] [id number] [address] OF [place]#### 47120-3 ####[facility] LABORATORYCLIA [id number] [address] STATES OF [facility] [id number] [address] STATES OF [place] Cholesterol.total/Cholester ol in HDL [Mass ratio] 3.16 {ratio} Normal <5.[address] [facility] Comment on above: Order Comment: Speci men Type: BLOOD SPECIMENOrdering Facility: [facility] Address: [address] [place] [address] Performed By: #### 2 4323-8 ####[facility] MIAMIWNCLIA [id number] [address] STATES OF [place]#### 65578-4 ####[facility]ORATORYCLIA [id number] [address] [id number] [address] FASTING TIME 12 hrs Normal [facility] Comment on above: Order Comment: Speci men Type: BLOOD SPECIMENOrdering Facility: [facility] Address: [address] [place] [address] Performed By: #### 2 4323-8 ####[facility]ITALLIA [id number] [address]#### 67398-8 ####[facility]ORATORYCLIA [id number] [address] [id number] [place] [address] Triglyceride [Mass/Vol] 104 mg/dL Normal <150 [facility] Comment on above: Order Comment: Speci men Type: BLOOD SPECIMENOrdering Facility: [facility] Address: [address] [place] [address] Result Comment: <150 mg/dL, Normal 150-199 mg/dL, Borderline high 200-499 mg/dL, High>499 mg/dL, Very high Performed By: #### 2 4323-8 ####[facility] MILLWNCLIA [id number] [address] STATES OF [place]#### 52077-4 ####[facility]ORATORYCLIA [id number] [address] MILLTOWNCLIA [id number] [address] CALPROon 07-23-2024 Calprotectin Interp Normal Normal Normal [facility] Comment on above: Result Comment: Inte rpretation: <50.0 ug/g: Normal 50.0 ug/g - 120.0 ug/g: Borderline elevated. Re-evaluation in 4-6 weeks is recommended if clinically indicated. >120.0 ug/g: Elevated Performed By: [facility] [place] [place] [address] Learning And Development Administrator: Diomedes Linder III, M.D. CLIA#: [id number] Performed By: #### C ALPRO #### [place] [address] Calprotectin, Fecal Quantitative 24.3 ug/g Normal <50 [facility] Comment on above: Result Comment: Perf ormed By: [facility] [place] [address] Learning And Development Administrator: Diomedes Linder III, M.D. CLIA#: [id number] Performed By: #### C ALPRO #### [place] [address] LABORATORYOrdered By: MINDY BILL CONTRIBUTOR_SYSTEM on 07-22-2024 Calprotectin Interp Normal Invalid Interpretation Code Normal AO [facility] Comment on above: Result Comment: Inte rpretation: <50.0 ug/g: Normal 50.0 ug/g - 120.0 ug/g: Borderline elevated. Re-evaluation in 4-6 weeks is recommended if clinically indicated. >120.0 ug/g: Elevated Performed By: [facility] [employer] [place] [address] Learning And Development Administrator: Diomedes Linder III, M.D. CLIA#: [id number] Calprotectin, Fecal Quantitative 24.3 1 Invalid Interpretation Code <50 [facility] Comment on above: Result Comment: Perf ormed By: [facility] [place] [address] Learning And Development Administrator: Diomedes Linder III, M.D. SHAAN#: [id number] .GFRon 07-21-2024 Estimated Glomerular Filtration Rate 55 ml/min/1.73sqm Normal [facility] Comment on above: Result Comment: Stages of Chronic Kidney Disease (CKD) Stage Description eGFR(ml/min/1.73 sq.m.) CKD 1 Normal kidney function or >=90 normal kindney function with possible kidney damage (ex. Proteinuria) CKD 2 Kidney damage with mild loss 60-89 of kidney function CKD 3a Mild to moderate loss of kidney 45-59 function CKD 3b Moderate to severe loss of 30-44 of kindey function CKD 4 Severe loss of kidney function 15-29 CKD 5 Kidney failure <15 Note: (go live 2024) the eGFR calculation was updated to the 2020 CKD-EPI creatinine equation without a race factor to calculate the eGFR results. Performed By: #### H GMP, GFR, ESR, CMP, CRP #### [address] [address] CMPon 07-21-2024 Albumin Level 3.3 G/dL Low 3.4-4.8 [facility] Comment on above: Performed By: #### H GMP, GFR, ESR, CMP, CRP #### [address] [address] Albumin/Globulin [Mass ratio] 1.0 {ratio} Low 1.1-2.5 [facility] Comment on above: Performed By: #### H GMP, GFR, ESR, CMP, CRP #### [address] [address] ALP [Catalytic activity/Vol] 92 U/L Normal 40-135 [facility] Comment on above: Performed By: #### H GMP, GFR, ESR, CMP, CRP #### [address] [address] ALT [Catalytic activity/Vol] 31 U/L Normal 14-59 [facility] Comment on above: Performed By: #### H GMP, GFR, ESR, CMP, CRP #### [address] [address] AST [Catalytic activity/Vol] 23 U/L Normal 10-40 [facility] Comment on above: Performed By: #### H GMP, GFR, ESR, CMP, CRP #### [address] [address] Bili Total 0.4 mg/dL Normal 0.2-1.0 [facility] Comment on above: Result Comment: Use of this assay is not recommended for patients undergoing treatment with eltrombopag due to the potential for falsely elevated results. Performed By: #### H GMP, GFR, ESR, CMP, CRP #### [address] [address] BUN/Creatinine Ratio 17 ratio Normal 7-27 [facility] Comment on above: Performed By: #### H GMP, GFR, ESR, CMP, CRP #### [address] [address] Calcium [Mass/Vol] 9.0 mg/dL Normal 8.4-10.2 [facility] Comment on above: Performed By: #### H GMP, GFR, ESR, CMP, CRP #### [address] [address] Chloride [Moles/Vol] 106 mmol/L Normal 98-107 [facility] Comment on above: Performed By: #### H GMP, GFR, ESR, CMP, CRP #### [address] [address] CO2 [Moles/Vol] 28 mmol/L Normal 23-31 [facility] Comment on above: Performed By: #### H GMP, GFR, ESR, CMP, CRP #### [address] [address] Creatinine [Mass/Vol] 1.06 mg/dL High 0.55-1.02 [facility] Comment on above: Result Comment: Test ing performed on Siemens Dimension EXL analyzer using a modified kinetic Sp technique. Performed By: #### H GMP, GFR, ESR, CMP, CRP #### [address] [address] Electrolyte Balance 8.0 mEq/L Normal 4.0-15.0 [facility] Comment on above: Performed By: #### H GMP, GFR, ESR, CMP, CRP #### [address] [address] Globulin 3.3 G/dL Normal 1.5-3.8 [facility] Comment on above: Performed By: #### H GMP, GFR, ESR, CMP, CRP #### [address] [address] Glucose [Mass/Vol] 106 mg/dL Normal 83-110 [facility] Comment on above: Performed By: #### H GMP, GFR, ESR, CMP, CRP #### [address] [address] Potassium [Moles/Vol] 3.9 mmol/L Normal 3.5-5.1 [facility] Comment on above: Performed By: #### H GMP, GFR, ESR, CMP, CRP #### [address] [address] Sodium [Moles/Vol] 142 mmol/L Normal 136-145 [facility] Comment on above: Performed By: #### H GMP, GFR, ESR, CMP, CRP #### [address] [address] Total Protein 6.6 G/dL Normal 6.4-8.2 [facility] Comment on above: Performed By: #### H GMP, GFR, ESR, CMP, CRP #### [address] [address] Urea nitrogen [Mass/Vol] 18 mg/dL Normal 7-18 [facility] Comment on above: Performed By: #### H GMP, GFR, ESR, CMP, CRP #### [address] [address] CRPon 07-21-2024 C-Reactive Protein 0.8 mg/dL High 0.0-0.3 [facility] Comment on above: Performed By: #### H GMP, GFR, ESR, CMP, CRP #### [address] [address] ESRon 07-21-2024 Erythrocyte Sed Rate 14 mm/hr Normal 0-30 [facility] Comment on above: Performed By: #### H GMP, GFR, ESR, CMP, CRP #### [address] [address] HGMPon 07-21-2024 Erythrocyte distribution width (RBC) [Ratio] 15.1 % Normal 11.5-15.5 [facility] Comment on above: Performed By: #### H GMP, GFR, ESR, CMP, CRP #### [address] [address] Hematocrit (Bld) [Volume fraction] 38.4 % Normal 34.0-46.0 [facility] Comment on above: Performed By: #### H GMP, GFR, ESR, CMP, CRP #### [place] [address] Hgb 12.6 G/dL Normal 12.0-16.0 [facility] Comment on above: Performed By: #### H GMP, GFR, ESR, CMP, CRP #### [address] [address] MCH (RBC) [Entitic mass] 28.3 pg Normal 27.0-33.0 [facility] Comment on above: Performed By: #### H GMP, GFR, ESR, CMP, CRP #### [address] [address] MCHC 32.9 G/dL Normal 32.0-36.0 [facility] Comment on above: Performed By: #### H GMP, GFR, ESR, CMP, CRP #### [place] [id number] MCV (RBC) [Entitic vol] 86.0 fL Normal 80.0-99.0 [facility] Comment on above: Performed By: #### H GMP, GFR, ESR, CMP, CRP #### [address] [address] Platelet 238 10 3/mcL Normal 150-450 [facility] Comment on above: Performed By: #### H GMP, GFR, ESR, CMP, CRP #### [address] [address] [address] Platelet mean volume (Bld) [Entitic vol] 8.3 fL Normal 6.6-10.5 [facility] Comment on above: Performed By: #### H GMP, GFR, ESR, CMP, CRP #### [address] [place], [place] [address] RBC 4.46 10 6/mcL Normal 4.10-5.30 [facility] Comment on above: Performed By: #### H GMP, GFR, ESR, CMP, CRP #### [address] [place], [place] [address] WBC 4.4 10 3/mcL Low 4.5-10.8 [facility] Comment on above: Performed By: #### H GMP, GFR, ESR, CMP, CRP #### [address] [address] LABORATORYOrdered By: SYSTEM SYSTEM on 07-21-2024 Albumin BCP dye [Mass/Vol] 3.3 G/dL Low 3 .4 - 4.8 G/dL AO ADM SS Albumin/Globulin [Mass ratio] 1.0 {ratio} Low 1.1 - 2.5 ratio AO ADM SS ALP [Catalytic activity/Vol] 92 U/L Normal 40 - 135 U/L AO ADM SS ALT With P-5'-P [Catalytic activity/Vol] 31 U/L Normal 14 - 59 U/L AO ADM SS AST With P-5'-P [Catalytic activity/Vol] 23 U/L Normal 10 - 40 U/L AO ADM SS Bilirubin [Mass/Vol] 0.4 mg/dL Normal 0.2 - 1 .0 mg/dL AO ADM SS Comment on above: Interpretive Data: U se of this assay is not recommended for patients undergoing treatment with eltrombopag due to the potential for falsely elevated results. Calcium [Mass/Vol] 9.0 mg/dL Normal 8.4 - 10. 2 mg/dL AO ADM SS Chloride [Moles/Vol] 106 mmol/L Normal 98 - 10 7 mmol/L AO ADM SS CO2 [Moles/Vol] 28 mmol/L Normal 23 - 31 mmol/L AO ADM SS Creatinine [Mass/Vol] 1.06 mg/dL High 0.55 - 1.02 mg/dL AO ADM SS Comment on above: Interpretive Data: T esting performed on Siemens Dimension EXL analyzer using a modified kinetic Sp technique. CRP [Mass/Vol] 0.8 mg/dL High 0.0 - 0.3 mg/dL AO ADM SS Electrolyte Balance 8.0 mEq/L Normal 4.0 - 15 .0 mEq/L AO ADM SS Erythrocyte distribution width (RBC) [Ratio] 15.1 % Normal 11.5 - 15.5 % AO Workflow SS Estimated Glomerular Filtration Rate 55 ml/min/1.73sqm Invalid Interpretation Code AO Chemistry S Comment on above: Interpretive Data: Stages of Chronic Kidney Disease (CKD) Stage Description eGFR(ml/min/1.73 sq.m.) CKD 1 Normal kidney function or >=90 normal kindney function with possible kidney damage (ex. Proteinuria) CKD 2 Kidney damage with mild loss 60-89 of kidney function CKD 3a Mild to moderate loss of kidney 45-59 function CKD 3b Moderate to severe loss of 30-44 of kindey function CKD 4 Severe loss of kidney function 15-29 CKD 5 Kidney failure <15 Note: (go live 2024) the eGFR calculation was updated to the 2020 CKD-EPI creatinine equation without a race factor to calculate the eGFR results. Globulin 3.3 G/dL Normal 1.5 - 3.8 G/dL AO ADM SS Glucose [Mass/Vol] 106 mg/dL Normal 83 - 110 mg/dL AO ADM SS Hematocrit (Bld) [Volume fraction] 38.4 % Normal 34.0 - 46.0 % AO Workflow SS Hemoglobin (Bld) [Mass/Vol] 12.6 G/dL Normal 12.0 - 16.0 G/dL AO Workflow SS MCH (RBC) [Entitic mass] 28.3 pg Normal 27. 0 - 33.0 pg AO Workflow SS MCHC 32.9 G/dL Normal 32.0 - 36.0 G/dL AO Workflow SS MCV (RBC) [Entitic vol] 86.0 fL Normal 80.0 - 99.0 fL AO Workflow SS Platelet mean volume (Bld) [Entitic vol] 8.3 fL Normal 6.6 - 10.5 fL AO Workflow SS Platelets (Bld) [#/Vol] 238 103/mcL Normal 150 - 450 10^3/mcL AO Workflow SS Potassium [Moles/Vol] 3.9 mmol/L Normal 3.5 - 5.1 mmol/L AO ADM SS Protein [Mass/Vol] 6.6 G/dL Normal 6.4 - 8.2 G/dL AO ADM SS RBC (Bld) [#/Vol] 4.46 106/mcL Normal 4.10 - 5.30 10^6/mcL AO Workflow SS Sodium [Moles/Vol] 142 mmol/L Normal 136 - 145 mmol/L AO ADM SS Urea nitrogen [Mass/Vol] 18 mg/dL Normal 7 - 18 mg/dL AO ADM SS Urea nitrogen/Creatinine [Mass ratio] 17 ratio Normal 7 - 27 ratio AO ADM SS WBC (Bld) [#/Vol] 4.4 103/mcL Low 4.5 - 10.8 10^3/mcL AO Workflow SS LABORATORYOrdered By: Tanisha Cartagena on 07-21-2024 ESR Photometric method (Bld) [Velocity] 14 mm/hr Normal 0 - 30 mm/hr AO Man Heme SS CNPTOUTREACHon 07-17-2024 CNPTOUTREACH Normal [facility] CNOVon 07-16-2024 CNOV [address] [facility] CNPNon 07-12-2024 CNPN Normal [facility] CNPNon 07-09-2024 CNPN Normal [facility] CBC W Auto Differential pane l (Bld)on 07-08-2024 Basophils (Bld) [#/Vol] 10*3/uL Normal <0.11 [facility] Comment on above: Order Comment: Speci men Type: BLOOD SPECIMENOrdering Facility: [facility] Address: [address] [place] [address] Performed By: #### 5 7021-8 ####[facility] LABCLIA [id number] [place] [address] [place] Basophils/100 WBC (Bld) 0.3 % Normal [facility] Comment on above: Order Comment: Speci men Type: BLOOD SPECIMENOrdering Facility: [facility] Address: [address] [place] [address] Performed By: #### 5 7021-8 ####[facility] LABCLIA [id number] [place] [address] [place] Differential cell count method Nom (Bld) Auto Normal [facility] Comment on above: Order Comment: Speci men Type: BLOOD SPECIMENOrdering Facility: [facility] Address: [address] [place] [address] Performed By: #### 5 7021-8 ####[facility] LABCLIA [id number] [place] [address] [place] Eosinophils (Bld) [#/Vol] 0.11 10*3/uL Normal <0.[address] [facility] Comment on above: Order Comment: Speci men Type: BLOOD SPECIMENOrdering Facility: [facility] Address: [address] [place] [address] Performed By: #### 5 7021-8 ####[facility] LABCLIA [id number] [place] [address] [place] Eosinophils/100 WBC (Bld) 1.7 % Normal [facility] Comment on above: Order Comment: Speci men Type: BLOOD SPECIMENOrdering Facility: [facility] Address: [address] [place] [address] Performed By: #### 5 7021-8 ####[facility] LABCLIA [id number] [place] [address] [place] Erythrocyte distribution width (RBC) [Ratio] 14.3 % Normal 11.5-15.[address] [facility] Comment on above: Order Comment: Speci men Type: BLOOD SPECIMENOrdering Facility: [facility] Address: [address] [place] [address] Performed By: #### 5 7021-8 ####[facility] LABCLIA [id number] [place] [address] [place] Hematocrit (Bld) [Volume fraction] 39.9 % Normal 36.0-46.[address] [facility] Comment on above: Order Comment: Speci men Type: BLOOD SPECIMENOrdering Facility: [facility] Address: [address] [place] [address] Performed By: #### 5 7021-8 ####[facility] LABCLIA [id number] [place] [address] [place] Hemoglobin (Bld) [Mass/Vol] 12.5 g/dL Normal 11.5-15. [address] [facility] Comment on above: Order Comment: Speci men Type: BLOOD SPECIMENOrdering Facility: [facility] Address: [address] [place] [address] Performed By: #### 5 7021-8 ####[facility] LABCLIA [id number] [place] [address] [place] Immature granulocytes (Bld) [#/Vol] 10*3/uL Normal <0.[address] [facility] Comment on above: Order Comment: Speci men Type: BLOOD SPECIMENOrdering Facility: [facility] Address: [address] [place] [address] Performed By: #### 5 7021-8 ####[facility] LABCLIA [id number] [place] [address] [place] Immature granulocytes/100 WBC (Bld) 0.3 % Normal [facility] Comment on above: Order Comment: Speci men Type: BLOOD SPECIMENOrdering Facility: [facility] Address: [address] [place] [address] Performed By: #### 5 7021-8 ####[facility] LABCLIA [id number] [place] [address] [place] Lymphocytes (Bld) [#/Vol] 2.81 10*3/uL Normal 1.00-4.[address] [facility] Comment on above: Order Comment: Speci men Type: BLOOD SPECIMENOrdering Facility: [facility] Address: [address] [place] [address] Performed By: #### 5 7021-8 ####[facility] LABCLIA [id number] [place] [address] [place] Lymphocytes/100 WBC (Bld) 42.9 % Normal [facility] Comment on above: Order Comment: Speci men Type: BLOOD SPECIMENOrdering Facility: [facility] Address: [address] [place] [address] Performed By: #### 5 7021-8 ####[facility] LABIA [id number] [place] [address] [place] MCH (RBC) [Entitic mass] 27.7 pg Normal 26.0-34.[address] [facility] Comment on above: Order Comment: Speci men Type: BLOOD SPECIMENOrdering Facility: [facility] Address: [address] [place] [address] Performed By: #### 5 7021-8 ####[facility] LABIA [id number] [place] [address] [place] MCHC (RBC) [Mass/Vol] 31.3 g/dL Normal 30.5-36.0 [facility] Comment on above: Order Comment: Speci men Type: BLOOD SPECIMENOrdering Facility: [facility] Address: [address] [place] [address] Performed By: #### 5 7021-8 ####[facility] LABIA [id number] [place] [address] [place] MCV (RBC) [Entitic vol] 88.5 fL Normal 80.0-100.0 [facility] Comment on above: Order Comment: Speci men Type: BLOOD SPECIMENOrdering Facility: [facility] Address: [address] [place] [address] Performed By: #### 5 7021-8 ####[facility] LABCLIA [id number] [place] [address] [place] Monocytes (Bld) [#/Vol] 0.57 10*3/uL Normal <0.[address] [facility] Comment on above: Order Comment: Speci men Type: BLOOD SPECIMENOrdering Facility: [facility] Address: [address] [place] [address] Performed By: #### 5 7021-8 ####[facility] LABCLIA [id number] [place] [address] [place] Monocytes/100 WBC (Bld) 8.7 % Normal [facility] Comment on above: Order Comment: Speci men Type: BLOOD SPECIMENOrdering Facility: [facility] Address: [address] [place] [address] Performed By: #### 5 7021-8 ####[facility] LABCLIA [id number] [place] [address] [place] Neutrophils (Bld) [#/Vol] 3.02 10*3/uL Normal 1.45-7.[address] [facility] Comment on above: Order Comment: Speci men Type: BLOOD SPECIMENOrdering Facility: [facility] Address: [address] [place] [address] Performed By: #### 5 7021-8 ####[facility] LABCLIA [id number] [place] [address] [place] Neutrophils/100 WBC (Bld) 46.1 % Normal [facility] Comment on above: Order Comment: Speci men Type: BLOOD SPECIMENOrdering Facility: [facility] Address: [address] [place] [address] Performed By: #### 5 7021-8 ####[facility] LABCLIA [id number] [place] [address] [place] Nucleated RBC (Bld) [#/Vol] 10*3/uL Normal <0.[address] [facility] Comment on above: Order Comment: Speci men Type: BLOOD SPECIMENOrdering Facility: [facility] Address: [address] [place] [address] Performed By: #### 5 7021-8 ####[facility] LABIA [id number] [place] [address] [place] Nucleated RBC/100 WBC (Bld) [Ratio] 0.0 /100 WBC Normal [facility] Comment on above: Order Comment: Speci men Type: BLOOD SPECIMENOrdering Facility: [facility] Address: [address] [place] [address] Performed By: #### 5 7021-8 ####[facility] LABIA [id number] [place] [address] [place] Platelet mean volume (Bld) [Entitic vol] 11.2 fL Normal 9.0-12.[address] [facility] Comment on above: Order Comment: Speci men Type: BLOOD SPECIMENOrdering Facility: [facility] Address: [address] [place] [address] Performed By: #### 5 7021-8 ####[facility] LABIA [id number] [place] [address] [place] Platelets (Bld) [#/Vol] 166 10*3/uL Normal 150-[address] [facility] Comment on above: Order Comment: Speci men Type: BLOOD SPECIMENOrdering Facility: [facility] Address: [address] [place] [address] Performed By: #### 5 7021-8 ####[facility] LABIA [id number] [place] [address] [place] RBC (Bld) [#/Vol] 4.51 10*6/uL Normal 3.90-5.20 [facility] Comment on above: Order Comment: Speci men Type: BLOOD SPECIMENOrdering Facility: [facility] Address: [address] [place] [address] Performed By: #### 5 7021-8 ####[facility] LABCLIA [id number] [place] [address] [place] WBC (Bld) [#/Vol] 6.55 10*3/uL Normal 3.70-11.00 [facility] Comment on above: Order Comment: Speci men Type: BLOOD SPECIMENOrdering Facility: [facility] Address: [address] [place] [address] Performed By: #### 5 7021-8 ####[facility] LABCLIA [id number] [place] [address] [place] [facility] Comprehensive metabolic 2000 panelon 07-08-2024 Albumin [Mass/Vol] 4.0 g/dL Normal 3.9-4.9 [facility] Comment on above: Order Comment: Speci men Type: BLOOD SPECIMENOrdering Facility: [facility] Address: [address] [place] [address] Performed By: #### 2 4323-8 ####[facility] LABCLIA [id number] [place] [address] [place] ALP [Catalytic activity/Vol] 86 U/L Normal 34-[address] [facility] Comment on above: Order Comment: Speci men Type: BLOOD SPECIMENOrdering Facility: [facility] Address: [address] [place] [address] Performed By: #### 2 4323-8 ####[facility] LABCLIA [id number] [place] [address] [place] ALT [Catalytic activity/Vol] 20 U/L Normal 7-[address] [facility] Comment on above: Order Comment: Speci men Type: BLOOD SPECIMENOrdering Facility: [facility] Address: [address] [place] [address] Performed By: #### 2 4323-8 ####[facility] LABCLIA [id number] [id number] [address] [place] Anion gap [Moles/Vol] 11 mmol/L Normal 8-15 [facility] Comment on above: Order Comment: Speci men Type: BLOOD SPECIMENOrdering Facility: [facility] Address: [address] [place] [address] Performed By: #### 2 4323-8 ####[facility] LABCLIA [id number] [place] [address] [place] AST [Catalytic activity/Vol] 21 U/L Normal 13-[address] [facility] Comment on above: Order Comment: Speci men Type: BLOOD SPECIMENOrdering Facility: [facility] Address: [address] [place] [address] Performed By: #### 2 4323-8 ####[facility] LABCLIA [id number] [place] [address] [place] Bilirubin [Mass/Vol] 0.3 mg/dL Normal 0.2-1.3 [facility] Comment on above: Order Comment: Speci men Type: BLOOD SPECIMENOrdering Facility: [facility] Address: [address] [place] [address] Performed By: #### 2 4323-8 ####[facility] LABCLIA [id number] [place] [address] [place] Calcium [Mass/Vol] 8.9 mg/dL Normal 8.5-10.2 [facility] Comment on above: Order Comment: Speci men Type: BLOOD SPECIMENOrdering Facility: [facility] Address: [address] [place] [address] Performed By: #### 2 4323-8 ####[facility] LABCLIA [id number] [place] [address] [place] Chloride [Moles/Vol] 104 mmol/L Normal 98-107 [facility] Comment on above: Order Comment: Speci men Type: BLOOD SPECIMENOrdering Facility: [facility] Address: [address] [place] [address] Performed By: #### 2 4323-8 ####[facility] LABCLIA [id number] [place] [address] [place] CO2 [Moles/Vol] 26 mmol/L Normal 22-[address] [facility] Comment on above: Order Comment: Speci men Type: BLOOD SPECIMENOrdering Facility: [facility] Address: [address] [place] [address] Performed By: #### 2 4323-8 ####[facility] LABCLIA [id number] [place] [address] [place] Creatinine [Mass/Vol] 0.88 mg/dL Normal 0.58-0.96 [facility] Comment on above: Order Comment: Speci men Type: BLOOD SPECIMENOrdering Facility: [facility] Address: [address] [place] [address] Performed By: #### 2 4323-8 ####[facility] LABIA [id number] [place] [address] [place] Creatinine and Glomerular filtration rate.predicted panel (S/P/Bld) 69 mL/min/1.73m??? Normal >=[address] [facility] Comment on above: Order Comment: Speci men Type: BLOOD SPECIMENOrdering Facility: [facility] Address: [address] [place] [address] Result Comment: Koki mated Glomerular Filtration Rate (eGFR) is calculated using the 2020 CKD-EPI creatinine equation. This equation utilizes serum creatinine, sex, and age as parameters. The creatinine assay has traceable calibration to isotope dilution-mass spectrometry. Refer to KDIGO guidelines for clinical interpretation. In patients with unstable renal function, e.g. those with acute kidney injury, the eGFR may not accurately reflect actual GFR. Performed By: #### 2 4323-8 ####[facility] LABCLIA [id number] [place] [id number] [place] Glucose [Mass/Vol] 86 mg/dL Normal 74-99 [facility] Comment on above: Order Comment: Shalini pérez Type: BLOOD SPECIMENOrdering Facility: [facility] Address: [address] [place] [address] Result Comment: The [place] Diabetes Association (ADA) provides guidance for cutoff values for fasting glucose and random glucose. The ADA defines fasting as no caloric intake for at least 8 hours. Fasting plasma glucose results between 100 to 125 mg/dL indicate increased risk for diabetes (prediabetes).Fasting plasma glucose results greater than or equal to 126 mg/dL meet the criteria for diagnosis of diabetes. In the absence of unequivocal hyperglycemia, results should be confirmed by repeat testing. In a patient with classic symptoms of hyperglycemia or hyperglycemic crisis, random plasma glucose results greater than or equal to 200 mg/dL meet the criteria for diagnosis of diabetes.Reference: Standards of Medical Care in Diabetes 2016, [place] Diabetes Association. Diabetes Care. 2016.39(Suppl 1). Performed By: #### 2 4323-8 ####[facility] LABCLIA [id number] [place] [address] [place] Potassium [Moles/Vol] 3.8 mmol/L Normal 3.7-5.1 [facility] Comment on above: Order Comment: Shalini pérez Type: BLOOD SPECIMENOrdering Facility: [facility] Address: [address] [place] [address] Performed By: #### 2 4323-8 ####[facility] LABCLIA [id number] [place] [address] [place] Protein [Mass/Vol] 6.7 g/dL Normal 6.3-8.0 [facility] Comment on above: Order Comment: Shalini pérez Type: BLOOD SPECIMENOrdering Facility: [facility] Address: [address] [place], [place] [address] Performed By: #### 2 4323-8 ####[facility] LABCLIA [id number] [place] [id number] [place] Sodium [Moles/Vol] 141 mmol/L Normal 136-144 [facility] Comment on above: Order Comment: Speci men Type: BLOOD SPECIMENOrdering Facility: [facility] Address: [address] [place] [address] Performed By: #### 2 4323-8 ####[facility] LABCLIA [id number] [place] [address] [place] Urea nitrogen [Mass/Vol] 21 mg/dL Normal 7-[address] [facility] Comment on above: Order Comment: Speci men Type: BLOOD SPECIMENOrdering Facility: [facility] Address: [address] [place] [address] Performed By: #### 2 4323-8 ####[facility] LABCLIA [id number] [place] [address] [place] HbA1c (Bld)on 07-08-2024 Average glucose Estimated from glycated hemoglobin (Bld) [Mass/Vol] 114 mg/dL Normal [facility] Comment on above: Order Comment: Speci men Type: BLOOD SPECIMENOrdering Facility: [facility] Address: [address] [place] [address] Result Comment: eAG: (Estimated average glucose) is a calculated value from HgbA1c and is customer account representative of the average blood glucose level in the last 2-3 month period. Performed By: #### 5 5454-3 ####[facility] LABCLIA [id number] [place] [address] [place] HbA1c (Bld) [Mass fraction] 5.6 % Normal 4.3-5.[address] [facility] Comment on above: Order Comment: Speci [facility] Type: BLOOD SPECIMENOrdering Facility: [facility] Address: [address] [place] [address] Result Comment: [place] Diabetes Association guidelines indicate that patients with HgbA1c in the range 5.7-6.4% are at increased risk for development of diabetes, and intervention by lifestyle modification may be beneficial. HgbA1c greater or equal to 6.5% is considered diagnostic of diabetes. Performed By: #### 5 5454-3 ####[facility] LABCLIA [id number] [facility] [place] [address] [place] CNPNon 06-26-2024 CNPN Normal [facility] CNPNon 06-25-2024 CNPN Normal [facility] CNPNon 06-23-2024 CNPN Normal [facility] CNOVon 06-18-2024 CNOV Normal [facility] CNPNon 06-18-2024 CNPN Normal [facility] CNPTOUTREACHon 06-14-2024 CNPTOUTREACH Normal [facility] Basic Metabolic Profile (BMP )on 06-13-2024 BUN/CRE 17.6 RATIO Normal 10-20 [facility] Comment on above: Performed By: #### L 500.2500 ####[facility] [address] [place], [address] [place],Total 8.8 mg/dL Normal 8.5-10.1 [facility] Comment on above: Performed By: #### L 500.2500 ####[facility] [address] [place], [address] Chloride [Moles/Vol] 107 mmol/L Normal 98-107 [facility] Comment on above: Performed By: #### L 500.2500 ####[facility] [address] [place], [address] CO2 [Moles/Vol] 28.0 mmol/L Normal 21.0-32.0 [facility] Comment on above: Performed By: #### L 500.2500 ####[facility] [address] [place], [address] Creatinine [Mass/Vol] 0.97 mg/dL Normal 0.55-1.02 [facility] Comment on above: Result Comment: The validity of the calculated GFR GFRAA in patients over 70 years has not been determined. Clinical correlation is essential. Performed By: #### L 500.2500 ####[facility] [address] [place], [address] ECRCL 61.53 ml/min Normal [facility] Comment on above: Performed By: #### L 500.2500 ####[facility] [address] [place], [address] EST GFR - AA 73 mL/min Normal >60 [facility] Comment on above: Result Comment: Afri can Belgian GFR Calc Performed By: #### L 500.2500 ####[facility] [address] [place], [address] GAP 6 Normal 5-15 [facility] Comment on above: Performed By: #### L 500.2500 ####[facility] [address] [place], [address] GFR/1.73 sq M.predicted among non-blacks MDRD (S/P/Bld) [Vol rate/Area] 60 mL/min/{1.73_m2} Normal >60 [facility] Comment on above: Result Comment: Non- GFR Calc Performed By: #### L 500.2500 ####[facility] [address] [place], [address] Glucose [Mass/Vol] 110 mg/dL High 74-106 [facility] Comment on above: Result Comment: Fast ing Glucose result from 100 to 125 mg/dL suggests IMPAIRED HOMEOSTASIS per A.D.A. criteria. Performed By: #### L 500.2500 ####[facility] [address] [place], [address] Potassium [Moles/Vol] 3.6 mmol/L Normal 3.5-5.1 [facility] Comment on above: Performed By: #### L 500.2500 ####[facility] [address] [place], [address] Sodium [Moles/Vol] 141 mmol/L Normal 136-145 [facility] Comment on above: Performed By: #### L 500.2500 ####[facility] [address] [place], [address] Urea nitrogen [Mass/Vol] 17 mg/dL Normal 7-18 [facility] Comment on above: Performed By: #### L 500.2500 ####[facility] [address] [place], [address] Discharge Instructionon 05-28 Discharge Instruction [facility] Medical Records Department [address] [place] [address] Instructions for Home/Discharge Instructions 06/13/24 0919 MR#: [id number] Acct: [id number] Name: NADJA CHAUDHARI Rep #: [id number] : 1950 74 From: Louie Dias MD PCP: Dr. Gray Quintana DO Status:ADM RICKEY Discharge Instructions DC O2, CPAP, BIPAP needs Home O2 Discharge instructions: Yes Type of respiratory needs?: Oxygen Oxygen frequency: With Sleeping Oxygen liters per minute when sleepin l/M Follow Up Care Test Results: Test results from this visit will be discussed in further detail at your follow-up appointment, if applicable. Discharge Plan Admission Admit Date/Time: 06/11/24 19:38 Primary Reason for Your Visit: Atypical chest pain. ACS ruled out Attending Provider: Louie Dias Primary Care Provider: Gray Quintana Consulting Providers: Rosita Alozno Discharge Orders/Prescriptions Prescriptions: New carvedilol 6.25 mg Tablet 6.25 mg PO BIDCM 30 Days Qty: 60 2RF Rx Instructions: Hold for heart less than 50 or systolic blood pressure less than 100 mmHg. Eliquis DVT-PE Treat 30D Start 5 mg (74 tabs) tablets,dose pack 5 mg PO BID Qty: 74 0RF Rx Instructions: 10 mg (2 tabs) twice daily for 7 days till 06/19/24 and then twice daily to continue atorvastatin 40 mg tablet 40 mg PO QHS 30 Days Qty: 30 2RF Continued losartan-hydrochloroth iazide 50-12.5 mg tablet 1 tab PO DAILY losartan 50 mg tablet 50 mg PO HS Referrals / Follow Up: Gray Quintana DO [Primary Care Provider] - Disposition Disposition (needs filled in before D/C Order can be placed): Home, Self Care 06/13/24 0934 Louie Dias MD CC: Dr. Gray Quintana, DO; Dr. Rosita Alonzo, DO Signed Normal [facility] BNP,B-Type NATRIURETIC PEPTI Basia 06-12-2024 Natriuretic peptide B (Bld) [Mass/Vol] 12.6 pg/mL Normal 0-100 [facility] Comment on above: Performed By: #### L 503.6620 #### [facility] [address] [place], [address] CBC W/Diff, Automatedon 05-28 Absolute Lymph 2.86 X10 3/uL Normal 0.83-4.51 [facility] Comment on above: Performed By: #### L 500.4050, L501.2300, L500.4100, L100.0100, L501.5200 #### [facility] [address] [place], [address] Absolute Neut 3.6 X10 3/uL Normal 2.0-7.7 [facility] Comment on above: Performed By: #### L 500.4050, L501.2300, L500.4100, L100.0100, L501.5200 #### [facility] [address] [place], [address] Basophils/100 WBC (Bld) 0.4 % Normal 0-1 [facility] Comment on above: Performed By: #### L 500.4050, L501.2300, L500.4100, L100.0100, L501.5200 #### [facility] [address] [place], [address] Eosinophils/100 WBC (Bld) 2.6 % Normal 0-5 [facility] Comment on above: Performed By: #### L 500.4050, L501.2300, L500.4100, L100.0100, L501.5200 #### [facility] [address] [place], [address] Erythrocyte distribution width (RBC) [Ratio] 13.4 % Normal 11.6-14.6 [facility] Comment on above: Performed By: #### L 500.4050, L501.2300, L500.4100, L100.0100, L501.5200 #### [facility] [address] [place], [address] Hematocrit (Bld) [Volume fraction] 36.9 % Low 37-47 [facility] Comment on above: Performed By: #### L 500.4050, L501.2300, L500.4100, L100.0100, L501.5200 #### [facility] [address] [place], [address] Hemoglobin (Bld) [Mass/Vol] 11.9 g/dL Low 12.0-15. 0 [facility] Comment on above: Performed By: #### L 500.4050, L501.2300, L500.4100, L100.0100, L501.5200 #### [facility] [address] [place], [address] IG% 0.300 Normal 0.0-0.9 [facility] Comment on above: Result Comment: IG% - Immature Granulocytes (promyelocytes, myelocytes and metamyelocytes) > 1% indicates that a LEFT SHIFT is Present. Performed By: #### L 500.4050, L501.2300, L500.4100, L100.0100, L501.5200 #### [facility] [address] [place], [address] Lymphocytes/100 WBC (Bld) 39.1 % Normal 19-41 [facility] Comment on above: Performed By: #### L 500.4050, L501.2300, L500.4100, L100.0100, L501.5200 #### [facility] [address] [place], [address] MCH (RBC) [Entitic mass] 28.1 pg Normal 27.0-32.0 [facility] Comment on above: Performed By: #### L 500.4050, L501.2300, L500.4100, L100.0100, L501.5200 #### [facility] [address] [place], [address] MCHC (RBC) [Mass/Vol] 32.2 g/dL Normal 32-36 [facility] Comment on above: Performed By: #### L 500.4050, L501.2300, L500.4100, L100.0100, L501.5200 #### [facility] [address] [place], [address] MCV (RBC) [Entitic vol] 87.2 fL Normal 81-99 [facility] Comment on above: Performed By: #### L 500.4050, L501.2300, L500.4100, L100.0100, L501.5200 #### [facility] [address] [place], [address] Monocytes/100 WBC (Bld) 8.7 % Normal 0-10 [facility] Comment on above: Performed By: #### L 500.4050, L501.2300, L500.4100, L100.0100, L501.5200 #### [facility] [address] [place], [address] Neutrophils/100 WBC (Bld) 48.9 % Normal 47-70 [facility] Comment on above: Performed By: #### L 500.4050, L501.2300, L500.4100, L100.0100, L501.5200 #### [facility] [address] [place], [address] Nucleated RBC (Bld) [#/Vol] 0 10*3/uL Normal 0-5 [facility] Comment on above: Performed By: #### L 500.4050, L501.2300, L500.4100, L100.0100, L501.5200 #### [facility] [address] [place], [address] Platelet mean volume (Bld) [Entitic vol] 10.4 fL Normal 6.2-12.0 [facility] Comment on above: Performed By: #### L 500.4050, L501.2300, L500.4100, L100.0100, L501.5200 #### [facility] [address] [place], [address] Platelets (Bld) [#/Vol] 249 10*3/uL Normal 150-450 [facility] Comment on above: Performed By: #### L 500.4050, L501.2300, L500.4100, L100.0100, L501.5200 #### [facility] [address] [place], [address] RBC (Bld) [#/Vol] 4.23 10*6/uL Normal 4.2-5.4 [facility] Comment on above: Performed By: #### L 500.4050, L501.2300, L500.4100, L100.0100, L501.5200 #### [facility] [address] [place], [address] RDW SD 42.5 fl Normal 35.1-43.9 [facility] Comment on above: Performed By: #### L 500.4050, L501.2300, L500.4100, L100.0100, L501.5200 #### [facility] [address] [place], [address] WBC (Bld) [#/Vol] 7.3 10*3/uL Normal 4.4-11.0 [facility] Comment on above: Performed By: #### L 500.4050, L501.2300, L500.4100, L100.0100, L501.5200 #### [facility] [address] [place], [address] CTA Chest W/WO Contraston CTA Chest W/WO Contrast [facility] Imaging Services [address] [address] CTA Chest W/WO Contrast MR#: [id number] Acct: [id number] Name: NADJA CHAUDHARI Rep #: [id number] : 1950 F 74 From: Joann Ziegler PCP: Dr. Gray Quintana, Status: ADM RICKEY Study: CTA Chest W/WO Contrast Date of Exam: 06/12/24 Exam# [id number] Ordering Dr: Amador Earl DO [id number] STUDY: CTA CHEST REASON FOR EXAM: Female, 74 years old. Elevated d-dimer of 2.83 present on admission. RADIATION DOSAGE (If Supplied By Facility): CTDIvol = ( 19.71 ) mGy, DLP = ( 574.08 ) mGycm TECHNIQUE: The examination was performed with the intravenous administration of IV 100mL Isovue-370. Post-processing of the angiographic images was performed, with multiplanar reformation and 3D reconstruction. The protocol utilizes one or more of the following dose reduction techniques: automated exposure control, adjustment of mA and/or kV according to patient size,and/or use of iterative reconstruction technique. COMPARISON: Prior study dated: 12/05/2023 FINDINGS: LUNGS: No consolidation. There are numerous small nodules throughout both lungs, most pronounced in the lower lobes largest in the right lower lobe 4 mm, largest in the left lower lobe 4 mm. These are similar to prior study and not significantly changed. PLEURA: No pleural effusion. No pneumothorax. PULMONARY VESSELS: No pulmonary emboli identified. MEDIASTINUM: Unremarkable. HEART: Not enlarged. AORTA/GREAT VESSELS: Thoracic aorta is normal caliber. No aneurysm or dissection. UPPER ABDOMEN: Gallstone in the gallbladder. BONES/SOFT TISSUES: No acute findings. OTHER: None. CT/CTA Chest W/WO Contrast IMPRESSION: 1. No evidence of pulmonary emboli. 2. Multiple small pulmonary nodules bilaterally largest 4 mm similar to previous study. Follow-up recommended according to Fleischner Society guidelines: If low risk patient, no follow-up needed; if high-risk patient, i.e. smoking or other risk factors: CT at 6 months. 3. Cholelithiasis. *Fleischner Society Recommendations (Radiology 2017, 284:228-243.) (Follow-up and management of multiple nodules smaller than 8 mm detected incidentally at non-screening CT. Newly detected indeterminate nodule in persons 35 years of age or older.) Low risk patient: Minimal or absent history of smoking and of other known risk factors. < 6 mm: No followup needed 6-8mm: Initial Follow-up CT at 3-6 months, then consider CT at 18-24 months >8mm: CT at 3-6 months, then consider CT at 18-24 months High risk patient: History of smoking or of other known risk factors. < 6 mm: Optional CT at 12 months. 6-8mm: CT at 3-6 months, then CT at 18-24 months. >8mm: CT at 3-6 months, then CT at 18-24 months Electronically Signed: Joann Wise MD at 5:59 EST , CC: Dr. Amador Earl, DO; Dr. Gray Quintana, DO Head Of Stock: Signed Normal [facility] Comprehensive Metabolic Prof ilon 06-12-2024 Albumin [Mass/Vol] 3.2 g/dL Normal 3.2-5.0 [facility] Comment on above: Performed By: #### L 500.4050, L501.2300, L500.4100, L100.0100, L501.5200 #### [facility] [address] [place], [address] Albumin/Globulin [Mass ratio] 1.0 {ratio} Normal 0.9-2.4 [facility] Comment on above: Performed By: #### L 500.4050, L501.2300, L500.4100, L100.0100, L501.5200 #### [facility] [address] [place], [address] ALK P 77 U/L Normal 45-117 [facility] Comment on above: Performed By: #### L 500.4050, L501.2300, L500.4100, L100.0100, L501.5200 #### [facility] [address] [place], [address] ALT [Catalytic activity/Vol] 22 U/L Normal 13-56 [facility] Comment on above: Performed By: #### L 500.4050, L501.2300, L500.4100, L100.0100, L501.5200 #### [facility] [address] [place], [address] AST [Catalytic activity/Vol] 14 U/L Low 15-37 [facility] Comment on above: Performed By: #### L 500.4050, L501.2300, L500.4100, L100.0100, L501.5200 #### [facility] [address] [place], [address] Bilirubin [Mass/Vol] 0.40 mg/dL Normal 0.20-1.00 [facility] Comment on above: Result Comment: For patients on eltrombopag therapy, use of Dimension [place] TBIL is not recommended. Performed By: #### L 500.4050, L501.2300, L500.4100, L100.0100, L501.5200 #### [facility] [address] [place], [address] BUN/CRE 17.5 RATIO Normal 10-20 [facility] Comment on above: Performed By: #### L 500.4050, L501.2300, L500.4100, L100.0100, L501.5200 #### [facility] [address] [place], [address] CA,Total 9.0 mg/dL Normal 8.5-10.1 [facility] Comment on above: Performed By: #### L 500.4050, L501.2300, L500.4100, L100.0100, L501.5200 #### [facility] [address] [place], [address] Chloride [Moles/Vol] 107 mmol/L Normal 98-107 [facility] Comment on above: Performed By: #### L 500.4050, L501.2300, L500.4100, L100.0100, L501.5200 #### [facility] [address] [place], [address] CO2 [Moles/Vol] 27.0 mmol/L Normal 21.0-32.0 [facility] Comment on above: Performed By: #### L 500.4050, L501.2300, L500.4100, L100.0100, L501.5200 #### [facility] [address] [place], [address] Creatinine [Mass/Vol] 0.97 mg/dL Normal 0.55-1.02 [facility] Comment on above: Result Comment: The validity of the calculated GFR GFRAA in patients over 70 years has not been determined. Clinical correlation is essential. Performed By: #### L 500.4050, L501.2300, L500.4100, L100.0100, L501.5200 #### [facility] [address] [place], [address] ECRCL 61.53 ml/min Normal [facility] Comment on above: Performed By: #### L 500.4050, L501.2300, L500.4100, L100.0100, L501.5200 #### [facility] [address] [place], [address] EST GFR - AA 72 mL/min Normal >60 [facility] Comment on above: Result Comment: Afri can Belgian GFR Calc Performed By: #### L 500.4050, L501.2300, L500.4100, L100.0100, L501.5200 #### [facility] [address] [place], [address] GAP 5 Normal 5-15 [facility] Comment on above: Performed By: #### L 500.4050, L501.2300, L500.4100, L100.0100, L501.5200 #### [facility] [address] [place], [address] GFR/1.73 sq M.predicted among non-blacks MDRD (S/P/Bld) [Vol rate/Area] 60 mL/min/{1.73_m2} Normal >60 [facility] Comment on above: Result Comment: Non- GFR Calc Performed By: #### L 500.4050, L501.2300, L500.4100, L100.0100, L501.5200 #### [facility] [address] [place], [address] Globulin (S) [Mass/Vol] 3.3 g/dL Normal 2.2-4.2 [facility] Comment on above: Performed By: #### L 500.4050, L501.2300, L500.4100, L100.0100, L501.5200 #### [facility] [address] [place], [address] Glucose [Mass/Vol] 125 mg/dL High 74-106 [facility] Comment on above: Result Comment: Fast ing Glucose result from 100 to 125 mg/dL suggests IMPAIRED HOMEOSTASIS per A.D.A. criteria. Performed By: #### L 500.4050, L501.2300, L500.4100, L100.0100, L501.5200 #### [facility] [address] [place], [address] Potassium [Moles/Vol] 3.5 mmol/L Normal 3.5-5.1 [facility] Comment on above: Performed By: #### L 500.4050, L501.2300, L500.4100, L100.0100, L501.5200 #### [facility] [address] [place], [address] Sodium [Moles/Vol] 139 mmol/L Normal 136-145 [facility] Comment on above: Performed By: #### L 500.4050, L501.2300, L500.4100, L100.0100, L501.5200 #### [facility] [address] [place], [address] T PROT 6.5 g/dL Normal 6.4-8.2 [facility] Comment on above: Performed By: #### L 500.4050, L501.2300, L500.4100, L100.0100, L501.5200 #### [facility] [address] [place], [address] Urea nitrogen [Mass/Vol] 17 mg/dL Normal 7-18 [facility] Comment on above: Performed By: #### L 500.4050, L501.2300, L500.4100, L100.0100, L501.5200 #### [facility] [address] [place], [address] Lipid Profileon 06-12-2024 Cholesterol [Mass/Vol] 178 mg/dL Normal 200 [facility] Comment on above: Result Comment: <200 mg/dL Desirable 200-240 mg/dL Borderline >240 mg/dL High Risk Performed By: #### L 500.4050, L501.2300, L500.4100, L100.0100, L501.5200 #### [facility] [address] [place], [address] Cholesterol in HDL [Mass/Vol] 60 mg/dL Normal [facility] Comment on above: Result Comment: The drugs N-Acetylcysteine and Metamizole may falsely depress this assay. Reference Range HDL <40 mg/dL Low HDL Cholesterol HDL >or= 60 mg/dL High HDL Cholesterol Performed By: #### L 500.4050, L501.2300, L500.4100, L100.0100, L501.5200 #### [facility] [address] [place], [address] Cholesterol in LDL [Mass/Vol] 96 mg/dL Normal 0-130 [facility] Comment on above: Performed By: #### L 500.4050, L501.2300, L500.4100, L100.0100, L501.5200 #### [facility] [address] [place], [address] Cholesterol in VLDL [Mass/Vol] 22 mg/dL Normal 5-40 [facility] Comment on above: Performed By: #### L 500.4050, L501.2300, L500.4100, L100.0100, L501.5200 #### [facility] [address] [place], [address] Triglyceride [Mass/Vol] 111 mg/dL Normal [facility] Comment on above: Result Comment: The drugs N-Acetylcysteine and Metamizole may falsely depress this assay. Serum Triglycerides Reference Interval Normal <150 mg/dL Borderline high 150 - 199 mg/dL High 200 - 499 mg/dL Very High > or = 500 mg/dL Performed By: #### L 500.4050, L501.2300, L500.4100, L100.0100, L501.5200 #### [facility] [address] [place], [address] Magnesiumon 06-12-2024 Magnesium [Mass/Vol] 1.9 mg/dL Normal 1.6-2.6 [facility] Comment on above: Performed By: #### L 500.4050, L501.2300, L500.4100, L100.0100, L501.5200 #### [facility] [address] [place], [address] Phosphoruson 06-12-2024 Phosphate [Mass/Vol] 4.1 mg/dL Normal 2.5-4.9 [facility] Comment on above: Performed By: #### L 500.4050, L501.2300, L500.4100, L100.0100, L501.5200 #### [facility] [address] [place], [address] Stress Reporton 06-12-2024 Stress Report [facility] [address] [place] [address] MR#: [id number] Acct: [id number] Name: NADJA CHAUDHARI Rep #: [id number] : 1950 74 From: Guilherme Brumfield MD Primary Care: Dr. Gray Quintana, DO Status: ADM RICKEY Referring Dr: Sex: F C Stress Test Report Date: 06/12/2024 Procedure: Pharmacologic stress nuclear imaging study Indications: Chest pain Consent: Per the patient Procedure: The patient underwent pharmacologic (Regadenoson 0.4mg ) evaluation with a peak heart rate of 106 beats per minute (72%predicted maximal heart rate) and a peak blood pressure of 142/90 mmHg. The baseline ECG demonstrated sinus rhythm. The peak pharmacologic ECG demonstrated no ischemic changes. Rare PVC noted preinfusion and during pharmacologic infusion. There was no complaint of chest discomfort during pharmacologic infusion or recovery. The patient was injected with 14.9 millicuries of technetium 99m Cardiolite and subsequently rest SPECT Cardiolite nuclear imaging was obtained in the horizontal long, vertical long, and short axis views. The patient underwent pharmacologic (Regadenoson) evaluation. The patient was injected with 45.3 millicuries of technetium 99m Cardiolite and subsequently stress SPECT Cardiolite nuclear imaging was obtained in the horizontal long, vertical long, and short axis views. A gated Cardiolite study at peak stress was obtained. The examination was stopped secondary to completion of protocol. Rest and stress SPECT Cardiolite nuclear imaging status post realignment, normalization, and attenuation correction demonstrate no fixed or reversible perfusion defects. There is end systolic thickening and brightening. The gated Cardiolite study demonstrates myocardial thickening and inward wall motion. The reported LVEF is 77%. Impression: 1. Pharmacologic (Regadenoson) evaluation 2. Peak pharmacologic ECG with no ischemic changes. 3. Rare PVC noted. 5. Rest and stress SPECT Cardiolite nuclear imaging demonstrate relative uniform tracer uptake and myocardial perfusion appearing within normal limits. 6. The gated Cardiolite study reports an LVEF of 77%. This note was generated with Super[employer] software. It may contain incorrect words, spelling, and punctuation that were not noted in checking the note before signing. 06/12/24 1246 Date Guilherme Brumfield MD CC: Dr. Gray Quintana DO; Dr. Rosita Alonzo DO; Dr. Louie Dias MD; Dr. Cam Mariscal MD Date Dictated: 06/12/24 1245 Date Transcribed: 06/12/24 124 Head Of Stock: SYED Signed Normal [facility] Venous Duplex US - Trish Extre [facility] 06-12-2024 Venous Duplex US - Trish Extrem [facility] [address] [place] [address] Venous Duplex US - Trish Extrem 06/12/24 0836 MR#: [id number] Acct: [id number] Name: NADJA CHAUDHARI Rep #: [id number] : 1950 74 From: Jordin Infante MD Attending Dr: Dr. Louie Dias MD Status: ADM RICKEY Ordering Dr: Amador Earl DO Date: 06/12/24 Location: [facility] Sex: F C Admitted: 06/11/24 Reason For Study: Elevated D Dimer RIGHT LEFT GSV is normal. GSV is normal. CFV is compressible, spontaneous, phasic, CFV is compressible, spontaneous, phasic, competent and demonstrates normal competent, and demonstrates normal augmentation. augmentation. FV is compressible, spontaneous, phasic, FV is compressible, spontaneous, phasic, competent and demonstrates normal competent and demonstrates normal augmentation. augmentation. POP V is compressible, spontaneous, phasic, POP V is compressible, spontaneous, phasic, competent and demonstrates normal competent and demonstrates normal augmentation. augmentation. T/P Trunk is compressible. T/P Trunk is compressible. PTV is compressible. PTV is compressible. RT PerV is compressible. LT PerV is compressible. Acute deep vein thrombosis is noted in the Nonvascularized anechoic area noted in Lt Gastrocnemius V. It is dilated and pop fossa measuring approximately 5.09cm x NONCOMPRESSIBLE. 1.96cm. Procedure This is a venous duplex using B-mode, color flow and spectral Doppler. Exam performed in department. The exam was diagnostic. A preliminary report was called and/or faxed to [employer] representative. VL/Venous Duplex US - Trish Extrem Interpretation Summary Acute deep vein thrombosis is noted in the right gastrocnemius vein. Deep veins of the left lower extremity are patent and compressible segmentally. There is no evidence of left lower extremity deep vein thrombosis. The bilateral great saphenous veins appear patent and compressible segmentally. Ordering Physician: Amador Earl Performed By: Jurgen Rojas, RVT 06/12/24 1334 Date Jordin Infante MD CC: Dr. Amador Earl DO; Dr. Gray Quintana DO; Dr. Louie Dias MD Date Dictated: 06/12/2436 Date Transcribed: 06/12/24 1334 Head Of Stock: Signed Normal [facility] Basic Metabolic Profile (BMP )on 06-11-2024 BUN/CRE 19.0 RATIO Normal 10-20 [facility] [facility] Comment on above: Order Comment: 'TROP ' Serial specimen #1, #2 or #3: 2 Performed By: #### L 100.0100, L500.2500, L501.4020 ####[facility] [address] [place], [address] CA,Total 9.2 mg/dL Normal 8.5-10.1 [facility] Comment on above: Order Comment: 'TROP ' Serial specimen #1, #2 or #3: 2 Performed By: #### L 100.0100, L500.2500, L501.4020 ####[facility] [address] [place], [address] Chloride [Moles/Vol] 106 mmol/L Normal 98-107 [facility] Comment on above: Order Comment: 'TROP ' Serial specimen #1, #2 or #3: 2 Performed By: #### L 100.0100, L500.2500, L501.4020 ####[facility] [address] [place], [address] CO2 [Moles/Vol] 29.0 mmol/L Normal 21.0-32.0 [facility] Comment on above: Order Comment: 'TROP ' Serial specimen #1, #2 or #3: 2 Performed By: #### L 100.0100, L500.2500, L501.4020 ####[facility] [address] [place], [address] Creatinine [Mass/Vol] 0.89 mg/dL Normal 0.55-1.02 [facility] Comment on above: Order Comment: 'TROP ' Serial specimen #1, #2 or #3: 2 Result Comment: The validity of the calculated GFR GFRAA in patients over 70 years has not been determined. Clinical correlation is essential. Performed By: #### L 100.0100, L500.2500, L501.4020 ####[facility] [address] [place], [address] ECRCL 67.81 ml/min Normal [facility] Comment on above: Order Comment: 'TROP ' Serial specimen #1, #2 or #3: 2 Performed By: #### L 100.0100, L500.2500, L501.4020 ####[facility] [address] [place], [address] EST GFR - AA 79 mL/min Normal >60 [facility] Comment on above: Order Comment: 'TROP ' Serial specimen #1, #2 or #3: 2 Result Comment: Afri can Belgian GFR Calc Performed By: #### L 100.0100, L500.2500, L501.4020 ####[facility] [address] [place], [address] GAP 4 Low 5-15 [facility] Comment on above: Order Comment: 'TROP ' Serial specimen #1, #2 or #3: 2 Performed By: #### L 100.0100, L500.2500, L501.4020 ####[facility] [address] [place], [address] GFR/1.73 sq M.predicted among non-blacks MDRD (S/P/Bld) [Vol rate/Area] 66 mL/min/{1.73_m2} Normal >60 [facility] Comment on above: Order Comment: 'TROP ' Serial specimen #1, #2 or #3: 2 Result Comment: Non- GFR Calc Performed By: #### L 100.0100, L500.2500, L501.4020 ####[facility] [address] [place], [address] Glucose [Mass/Vol] 101 mg/dL Normal 74-106 [facility] Comment on above: Order Comment: 'TROP ' Serial specimen #1, #2 or #3: 2 Result Comment: Fast ing Glucose result from 100 to 125 mg/dL suggests IMPAIRED HOMEOSTASIS per A.D.A. criteria. Performed By: #### L 100.0100, L500.2500, L501.4020 ####[facility] [address] [place], [address] Potassium [Moles/Vol] 3.4 mmol/L Low 3.5-5.1 [facility] Comment on above: Order Comment: 'TROP ' Serial specimen #1, #2 or #3: 2 Performed By: #### L 100.0100, L500.2500, L501.4020 ####[facility] [address] [place], [address] Sodium [Moles/Vol] 140 mmol/L Normal 136-145 [facility] Comment on above: Order Comment: 'TROP ' Serial specimen #1, #2 or #3: 2 Performed By: #### L 100.0100, L500.2500, L501.4020 ####[facility] [address] [place], [address] Urea nitrogen [Mass/Vol] 17 mg/dL Normal 7-18 [facility] Comment on above: Order Comment: 'TROP ' Serial specimen #1, #2 or #3: 2 Performed By: #### L 100.0100, L500.2500, L501.4020 ####[facility] [address] [place], [address] CBC W/Diff, Automatedon - Absolute Lymph 2.77 X10 3/uL Normal 0.83-4.51 [facility] Comment on above: Performed By: #### L 100.0100, L500.2500, L501.4020 ####[facility] [address] [place], [address] Absolute Neut 3.6 X10 3/uL Normal 2.0-7.7 [facility] Comment on above: Performed By: #### L 100.0100, L500.2500, L501.4020 ####[facility] [address] [place], [address] Basophils/100 WBC (Bld) 0.4 % Normal 0-1 [facility] Comment on above: Performed By: #### L 100.0100, L500.2500, L501.4020 ####[facility] [address] [place], [address] Eosinophils/100 WBC (Bld) 2.7 % Normal 0-5 [facility] Comment on above: Performed By: #### L 100.0100, L500.2500, L501.4020 ####[facility] [address] [place], [address] Erythrocyte distribution width (RBC) [Ratio] 13.4 % Normal 11.6-14.6 [facility] Comment on above: Performed By: #### L 100.0100, L500.2500, L501.4020 ####[facility] [address] [place], [address] Hematocrit (Bld) [Volume fraction] 37.2 % Normal 37-47 [facility] Comment on above: Performed By: #### L 100.0100, L500.2500, L501.4020 ####[facility] [address] [place], [address] Hemoglobin (Bld) [Mass/Vol] 12.0 g/dL Normal 12.0-15. 0 [facility] Comment on above: Performed By: #### L 100.0100, L500.2500, L501.4020 ####[facility] [address] [place], [address] IG% 0.300 Normal 0.0-0.9 [facility] Comment on above: Result Comment: IG% - Immature Granulocytes (promyelocytes, myelocytes and metamyelocytes) > 1% indicates that a LEFT SHIFT is Present. Performed By: #### L 100.0100, L500.2500, L501.4020 ####[facility] [address] [place], [address] Lymphocytes/100 WBC (Bld) 38.7 % Normal 19-41 [facility] Comment on above: Performed By: #### L 100.0100, L500.2500, L501.4020 ####[facility] [address] [place], [address] MCH (RBC) [Entitic mass] 28.5 pg Normal 27.0-32.0 [facility] Comment on above: Performed By: #### L 100.0100, L500.2500, L501.4020 ####[facility] [address] [place], [address] MCHC (RBC) [Mass/Vol] 32.3 g/dL Normal 32-36 [facility] Comment on above: Performed By: #### L 100.0100, L500.2500, L501.4020 ####[facility] [address] [place], [address] MCV (RBC) [Entitic vol] 88.4 fL Normal 81-99 [facility] Comment on above: Performed By: #### L 100.0100, L500.2500, L501.4020 ####[facility] [address] [place], [address] Monocytes/100 WBC (Bld) 7.4 % Normal 0-10 [facility] Comment on above: Performed By: #### L 100.0100, L500.2500, L501.4020 ####[facility] [address] [place], [address] Neutrophils/100 WBC (Bld) 50.5 % Normal 47-70 [facility] Comment on above: Performed By: #### L 100.0100, L500.2500, L501.4020 ####[facility] [address] [place], [address] Nucleated RBC (Bld) [#/Vol] 0 10*3/uL Normal 0-5 [facility] Comment on above: Performed By: #### L 100.0100, L500.2500, L501.4020 ####[facility] [address] [place], [address] Platelet mean volume (Bld) [Entitic vol] 10.3 fL Normal 6.2-12.0 [facility] Comment on above: Performed By: #### L 100.0100, L500.2500, L501.4020 ####[facility] [address] [place], [address] Platelets (Bld) [#/Vol] 256 10*3/uL Normal 150-450 [facility] Comment on above: Performed By: #### L 100.0100, L500.2500, L501.4020 ####[facility] [address] [place], [address] RBC (Bld) [#/Vol] 4.21 10*6/uL Normal 4.2-5.4 [facility] Comment on above: Performed By: #### L 100.0100, L500.2500, L501.4020 ####[facility] [address] [place], [address] RDW SD 43.8 fl Normal 35.1-43.9 [facility] Comment on above: Performed By: #### L 100.0100, L500.2500, L501.4020 ####[facility] [address] [place], [address] WBC (Bld) [#/Vol] 7.2 10*3/uL Normal 4.4-11.0 [facility] Comment on above: Performed By: #### L 100.0100, L500.2500, L501.4020 ####[facility] [address] [place], [address] CNOVon 06-11-2024 CNOV Normal [facility] CNPNon 06-11-2024 CNPN [address] [facility] Chest 1 View (Portable)on Chest 1 View (Portable) [facility] Imaging Services [address] [place] [address] Chest 1 View (Portable) MR#: [id number] Acct: [id number] Name: DOROTHEANADJA BEE Toney Rep #: [id number] : 1950 F 74 From: Muriel De Dios MD PCP: Dr. Gray Quintana, DO Status: REG ER Study: Chest 1 View (Portable) Date of Exam: 06/11/24 Exam# [id number] Ordering Dr: Cam Mariscal [place] [id number] EXAM: XR CHEST, 1 VIEW CLINICAL INDICATION: Chest pain, elevated troponin TECHNIQUE: Frontal view of the chest. COMPARISON: December 05, 2023. FINDINGS: LUNGS AND PLEURAL SPACES: Unremarkable. No consolidation or edema. No pneumothorax. No effusion. HEART: Unremarkable. Cardiac silhouette not enlarged. MEDIASTINUM: Central airways and mediastinal contour are unremarkable. BONES/JOINTS: Part of an intramedullary shital is again noted in the left proximal humerus. No acute fracture. SOFT TISSUES: Unremarkable. RAD/Chest 1 View (Portable) IMPRESSION: No acute findings in the chest. Electronically Signed: Muriel De Dios MD at 18:08 EST , CC: Dr. Gray Quintana DO; Dr. Cam Mariscal MD Head Of Stock: Signed Normal [facility] D-Dimer Quantitative (DVT/PE )on 06-11-2024 D-DIMER QUANT 2.83 FEU/ug/m Invalid Interpretation Code 0.27-0.49 [facility] Comment on above: Result Comment: CRIT ICAL VALUE CALLED TO SANDRA BOLTON RN U 06/11/24 5649 [address]. RESULTS READ BACK BY SAME . D-Dimer ELEVATED (>0.49): Additional studies and clinical assessments are indicated to conclude diagnosis of: Deep Vein Thrombosis (DVT) or Pulmonary Embolism (PE) Performed By: #### L 300.8000 ####[facility] [address] [place], [address] Echo Complete W/ Contraston 06-11-2024 Echo Complete W/ Contrast [facility] Cardiovascular Services [address] [place] [address] Echo Complete W/ Contrast 06/12/24 1040 MR#: [id number] Acct: [id number] Name: NADJA CHAUDHARI Rep #: [id number] : 1950 74 From: Guilherme Brumfield MD Attending Dr: Dr. Louie Dias MD Status: ADM RICKEY Ordering Dr: Rosita Alonzo DO Date: 06/11/24 Location: U Sex: F C Admitted: 06/11/24 Reason For Study: Edema Procedure This was a 2D Doppler, Color Flow transthoracic echocardiogram. The study was technically difficult. Contrast injection was performed. Exam performed in department. Left Ventricle Normal LV size. Mild concentric left ventricular hypertrophy. The left ventricular ejection fraction is 70 %. Stage 1 diastolic dysfunction. Right Ventricle Normal right ventricle. Atria The left and right atria are normal. Mitral Valve Trivial mitral valve insufficiency. Tricuspid Valve Trivial tricuspid valve insufficiency. Unable to estimate RV systolic pressure due to insufficient tricuspid regurgitant envelope. Aortic Valve Trisinus/trileaflet aortic valve. Pulmonic Valve The pulmonic valve is not well visualized. Great Vessels Normal sized aortic root. Pericardium/Pleural No pericardial effusion. Medication Diluted definity 2.5ml given slow IV push to enhance endocardial definition. MMode/2D Measurements Calculations LVIDd: 4.9 cm IVSd: 1.2 cm Ao root diam: 3.6 cm LVIDs: 3.7 cm LVPWd: 1.2 cm FS: 23.9 % LAV(MOD-sp4): 33.5 ml LVAd ap4: 22.9 cm2 SV(MOD-sp4): 39.9 ml LVLd ap4: 7.1 cm SI(MOD-sp4): 18.9 ml/m2 EDV(MOD-sp4): 60.0 ml EDV(sp4-el): 62.6 ml LVAs ap4: 11.6 cm2 LVLs ap4: 5.7 cm ESV(MOD-sp4): 20.0 ml ESV(sp4-el): 20.0 ml EF(MOD-sp4): 66.6 % EF(sp4-el): 68.0 % SV(sp4-el): 42.6 ml LA A4 area: 14.6 cm2 LA dimension(2D): 3.6 cm RA A4 area: 13.3 cm2 TAPSE: 2.0 cm Time Measurements MV dec time: 0.21 sec Doppler Measurements Calculations MV E max dee: 65.7 cm/sec Lat Peak E' Dee: 8.9 cm/sec Med Peak E' Dee: 6.0 cm/sec MV A max dee: 89.1 cm/sec E/E' lat: 7.4 E/E' med: 11.0 MV E/A: 0.74 MV V2 max: 111.2 cm/sec MV P1/2t max dee: 69.4 cm/sec Ao V2 max: 159.4 cm/sec MV max P.9 mmHg MV P1/2t: 60.5 msec Ao max P.2 mmHg MV V2 mean: 55.0 cm/sec MV dec slope: 336.1 cm/sec2 Ao V2 mean: 106.5 cm/sec MV mean P.5 mmHg MVA(P1/2t): 3.6 cm2 Ao mean P.3 mmHg MV V2 VTI: 23.4 cm Ao V2 VTI: 30.4 cm AV (velocity ratio): 0.71 LV V1 max: 122.1 cm/sec PA V2 max: 115.3 cm/sec LV V1 max P.0 mmHg PA V2 mean: 82.3 cm/sec LV V1 mean P.7 mmHg LV V1 mean: 76.4 cm/sec LV V1 VTI: 21.7 cm ECHO/Echo Complete W/ Contrast Interpretation Summary The study was technically difficult. Mild concentric left ventricular hypertrophy. The left ventricular ejection fraction is 70 %. Stage 1 diastolic dysfunction. Ordering Physician: Rosita Alonzo Performed By: Kevin Abrams RCS 06/12/24 1331 Date Guilherme Brumfield MD CC: Dr. Gray Quintana DO; Dr. Rosita Alonzo DO; Dr. Louie Dias MD Date Dictated: 06/12/24 1040 Date Transcribed: 06/12/24 1331 Head Of Stock: Signed Normal [facility] Emergency Department Summary on 06-11-2024 Emergency Department Summary [facility] Medical Records Department [address] [place] [address] Emergency Department Summary 06/11/24 MR#: [id number] Acct: [id number] Name: NADJA CHAUDHARI Rep #: [id number] : 1950 74 From: Cam Mariscal MD PCP: Dr. Gray Quintana DO Status:REG ER Location: ED HPI History of Present Illness Chief Complaint: Chest Pain Detail of Chief Complaint: Left-sided chest pain Informant: patient Onset/Context/Timing Onset: Today and Yesterday Activity at onset: - (Unknown since she awoke with pain both days) Timing: Continuous (Since awakening this morning) and Intermittent (Yesterday) Quality: Positive for Aching Location: Left Parasternal Current Severity: Mild Maximum Severity: Moderate Worsened By: Movement of Arm and Movement of Torso; Not Worsened By Exertion, Eating, Palpation, Breathing or Coughing Relieved By: Nothing Associated Symptoms: Negative for Nausea, Vomiting, Diaphoresis, Dyspnea, Cough, Fever, Lightheadedness, Acid Reflux or Palpitations Narrative Narrative: Patient is a 74-year-old woman with history of hypertension, former smoker, COPD, obstructive sleep apnea, overlap of asthma and COPD as well as ulcerative colitis who presents with left-sided chest pain that she noted upon awakening yesterday June 10. Patient states the pain yesterday was intermittent. There was an area she could push on that caused her to have an increase in pain. She also reported certain movements increase her pain. When she went to sleep she did not have the pain. When she awoke with this morning she had the discomfort again. There is a musculoskeletal component. There is no exertional component. There is no change with breathing or change in position. She has chronic swelling of her legs. She denies history of VTE. She has no risk factors for VTE. Patient denies fever, chills night sweats. Patient denies headache, visual, ocular auditory symptoms. Patient denies abdominal pain. Patient denies intolerance to greasy or fried foods. Patient denies black or maroon-colored stool. Prior Similar Symptoms: No CVD Risk Factors: Positive for Hypertension and Smoking; Negative for Diabetes, Hypercholesterolemia or Family History 1' PE Risk Factors: Negative for Recent Travel/Surgery, Recent Immobilization, Prior DVT or PE, Cancer or OCP + Smoking + >/=35 TAD Risk Factors: Positive for Hypertension; Negative for Marfan's Syndrome or Family History [facility] Medical History (Updated 06/11/24 @ 19:[address] Cam Mariscal MD) Anxiety Depression Osteoporosis Kidney disease Hepatitis Former smoker On home oxygen therapy Asthma Chest pain Ulcerative colitis HTN (hypertension) History of hypertension Home Medications ???Medication ???Instructions ???Recorded ???Last Taken ???Type losartan 50 mg-hydrochlorothiazide 1 tab PO DAILY 12/15/21 Unknown History 12.5 mg tablet losartan 50 mg tablet 50 mg PO HS 01/02/22 Unknown History Allergy/AdvReac Type Severity Reaction Status Date / Time No Known Allergies Allergy Verified 06/11/24 16:42 Family History Father Colon cancer Aunt Colon cancer Breast cancer Surgical History S/P ORIF (open reduction internal fixation) fracture Hx of shoulder surgery Hx of lumbar discectomy History of mandibular surgery History of tonsillectomy History of back surgery Social History Smoking Status: Former smoker Tobacco: How many years used: 40 ROS ROS ED Constitutional Constitutional ED: Denies chills, fever(s), subjective or sweats Eyes Eyes: Reports none ENT ENT ED: Denies ear pain, rhinorrhea or sore throat Cardiovascular Cardiovascular: Reports as per HPI and orthopnea; Denies paroxysmal nocturnal dyspnea Respiratory/Chest Respiratory/Chest: Reports orthopnea and other Details: Patient has chronic two-pillow orthopnea. ; Denies cough, dyspnea, dyspnea on exertion or paroxysmal nocturnal dyspnea Gastrointestinal Gastrointestinal: Denies abdominal pain, melena, nausea or vomiting Genitourinary Genitourinary ED: Denies dysuria, hematuria or urinary frequency Musculoskeletal Musculoskeletal: Denies arthralgias, back pain or myalgias Integumentary Denies rash Neurologic Neurologic: Denies headache(s), paresthesias or weakness Hematologic/Lymphatic Hematologic/Lymphatic: Denies easy bleeding or easy bruising EXAM Physical Exam Const Vital Signs: 06/11/24 16:41 06/11/24 17:00 06/11/24 17:41 Temperature 97.9 F Temperature Source Oral Pulse Rate 97 83 Respiratory Rate 22 H 20 H Respiratory Effort Normal Non-Labored Blood Pressure 159/103 H 138/93 H Blood Pressure Mean 121 108 (more content not included)... Normal [facility] H AND P Exam - Hospitaliston 06-11-2024 H&P Exam - Hospitalist [facility] Medical Records Department [address] [place] [address] H P Exam - Hospitalist 06/11/24 1846 MR#: [id number] Acct: [id number] Name: NADJA CHAUDHARI Toney Rep #: [id number] : 1950 74 From: Rosita Alonzo DO PCP: Dr. Gray Quintana, DO Status:ADM RICKEY Location: [place] [address] HPI - General General Date of Admission: 06/11/24 Date of Service: 06/11/24 Chief Complaint: Chest pain HPI Narrative NADJA CHAUDHARI, is a 74 F who presented to the emergency department with left-sided chest pain that was aching in quality. She reported it had been present since she woke this morning and had been present yesterday as well. Symptoms were intermittent today prior to admission but more consistent and continuous on the day of presentation. She denied any associated nausea or vomiting, diaphoresis, or shortness of breath. She has a history of tobacco abuse, untreated NEVA, and hypertension and has morbid obesity. She has never had previous cardiac issues. She denies ever having any other cardiac workup. She is compliant with her home antihypertensives but she states she feels that her legs are swelling some as well. She is chest pain-free at the time of my evaluation. She has had no indigestion type symptoms. She does report that she has tried to be treated for sleep apnea both with CPAP and wear nocturnal oxygen however she is not tolerating either very well. She has follow-up with her home health outreach coordinator to discuss this further. Vital signs on presentation showed temperature 97.9, heart rate 97, respiratory rate 22, blood pressure was 159/103 with a repeat at 138/93, and pulse ox was 97% on room air. His CBC was unremarkable. Chemistry panel showed mild hypokalemia potassium of 3.4 but was otherwise unremarkable. Initial troponin emergency department was 104 with a repeat of 95. EKG was unremarkable and showed normal intervals without any ST-T wave changes consistent with acute ischemia. Chest x-ray is unremarkable. D-dimer is pending. [facility] Medical History Anxiety Depression Osteoporosis Kidney disease Hepatitis Former smoker On home oxygen therapy Asthma Chest pain Ulcerative colitis HTN (hypertension) History of hypertension Home Medications ???Medication ???Instructions ???Recorded ???Last Taken ???Type losartan 50 mg-hydrochlorothiazide 1 tab PO DAILY 12/15/21 Unknown History 12.5 mg tablet losartan 50 mg tablet 50 mg PO HS 01/02/22 Unknown History Allergy/AdvReac Type Severity Reaction Status Date / Time No Known Allergies Allergy Verified 06/11/24 16:42 Family History Father Colon cancer Aunt Colon cancer Breast cancer Surgical History S/P ORIF (open reduction internal fixation) fracture Hx of shoulder surgery Hx of lumbar discectomy History of mandibular surgery History of tonsillectomy History of back surgery Social History (Updated 06/11/24 @ 21:[address] Rosita Alonzo DO) Smoking Status: Former smoker Tobacco: How many years used: 40 alcohol intake: never substance use type: does not use ROS Constitutional Constitutional: Denies anorexia, change in weight, chills, fatigue, fever(s), malaise, night sweats, weakness or other Eyes Eyes: Denies blurry vision, change in eye color, change in vision, discharge from eye(s), double vision, erythema, eye pain, loss of vision or other ENT HEENT: Denies abnormal hearing, dysphagia, ear pain, epistaxis, headache(s), hearing loss, nasal congestion, nasal discharge, post nasal drip, sinus pressure, sore throat or other Cardiovascular Cardiovascular: Reports chest pain, dyspnea on exertion and edema; Denies claudication, lightheadedness, orthopnea, palpitations, paroxysmal nocturnal dyspnea, rapid heart rate, syncope or other Respiratory/Chest Respiratory/Chest: Reports shortness of breath with exertion; Denies cough, dyspnea, excessive phlegm production, hemoptysis, productive cough, shortness of breath at rest, wheezing or other Gastrointestinal Gastrointestinal: Denies abdominal pain, coffee ground emesis, constipation, diarrhea, dyspepsia, hematemesis, hematochezia, loose stools, melena, nausea, vomiting or other Genitourinary Genitourinary: Denies burning urination, difficulty urinating, dysuria, hematuria, nocturia, urinary frequency, urinary hesitancy, urinary incontinence, urinary urgency or other Musculoskeletal Musculoskeletal: Denies arthralgias, back pain, joint pain, joint stiffness, joint swelling, myalgias, neck pain or other Neurologic Neurologic: Denies abnormal gait, abnormal speech, confusion, disequilibrium, dizziness, focal weakness, headache(s), numbness, paresthesias, seizure-like activity, seizures, syncop (more content not included)... Normal [facility] L501.4020on 06-11-2024 TROPONIN-I HS 98 pg/mL High 3.0-54.0 [facility] Comment on above: Order Comment: 'TROP ' Serial specimen #1, #2 or #3: 3 Result Comment: Plea se Note: New Test Units and Gender Specific Reference Ranges. For more information see Policy Stat Procedure [place] High Sensitivity Troponin (TNIH) and attachments. Performed By: #### L 501.4020 ####[facility] [address] [place], [address] TROPONIN-I HS 95 pg/mL High 3.0-54.0 [facility] Comment on above: Order Comment: 'TROP ' Serial specimen #1, #2 or #3: 2 Result Comment: Plea se Note: New Test Units and Gender Specific Reference Ranges. For more information see Policy Stat Procedure [place] High Sensitivity Troponin (TNIH) and attachments. Performed By: #### L 100.0100, L500.2500, L501.4020 ####[facility] [address] [place], [address] TROPONIN-I HS 104 pg/mL High 3.0-54.0 [facility] Comment on above: Order Comment: 'TROP ' Serial specimen #1, #2 or #3: 1 Result Comment: Plea se Note: New Test Units and Gender Specific Reference Ranges. For more information see Policy Stat Procedure [place] High Sensitivity Troponin (TNIH) and attachments. Performed By: #### L 501.4020 #### [facility] [address] [place], [place], [address] CNOVon 05-26-2024 CNOV [address] [facility] CNPNon 05-16-2024 CNPN [address] [facility] CNOVon 04-30-2024 CNOV [address] [facility] CNPNon 04-28-2024 CNPN [address] [facility] CNOVon 04-26-2024 [facility] [facility] CNPNon 04-04-2024 CNPN [address] [facility] CNPNon 03-21-2024 CNPN [address] [facility] CNPNon 03-19-2024 CNPN Normal [facility] CNPNon 03-14-2024 CNPN Normal [facility] CNPNon 03-13-2024 CNPN Normal [facility] CNPNon 03-11-2024 CNPN [address] [facility] BD DXA - AXIAL SKELETONon BD DXA - AXIAL SKELETON Normal [facility] EMMANUELLE SCREENINGon 03-07-2024 EMMANUELLE SCREENING Normal [facility] CNOVon 02-25-2024 CNOV [address] [facility] QUANTTBon 02-07-2024 QFT Criteria Comment Normal [facility] Comment on above: Result Comment: QuantiFERON-TB Gold Plus is a qualitative indirect test for M tuberculosis infection (including disease) and is intended for use in conjunction with risk assessment, radiography, and other medical and diagnostic evaluations. The QuantiFERON-TB Gold Plus result is determined by subtracting the Nil value from either TB antigen (Ag) value. The Mitogen tube serves as a control for the test. Performed By: #### H BSAB, HBSAG #### [place] [address] QFT Mitogen Value >10.00 Normal [facility] Comment on above: Performed By: #### H BSAB, HBSAG #### [place] [address] QFT Nil Value 0.00 IU/mL [facility] Comment on above: Performed By: #### H BSAB, HBSAG #### [place] [address] QFT TB1 Ag Value 0.01 IU/mL [facility] Comment on above: Performed By: #### H BSAB, HBSAG #### [place] [address] QFT TB2 Ag Value 0.01 IU/mL [facility] Comment on above: Performed By: #### H BSAB, HBSAG #### [place] [address] QFT-TB Gold Plus [employer] Negative Normal Negative [facility] Comment on above: Result Comment: No r esponse to M tuberculosis antigens detected. Infection with M tuberculosis is unlikely, but high risk individuals should be considered for additional testing (ATS/IDSA/CDC Clinical Practice Guidelines, 2017). The reference range is an Antigen minus Nil result of <0.35 IU/mL. The specimen received for QuantiFERON testing was incubated by the ordering institution. Specific procedures outlined in our Directory of Services and in the package insert for the QuantiFERON Gold (In Tube) test must be followed to enable for proper stimulation of cells for the production of interferon gamma. Chemiluminescence immunoassay methodology Performed At: [address] [id number] Vicenta Lezama PhD Ph:[phone] Performed By: #### H BSAB, HBSAG #### [place] [address] AHAVGon 02-06-2024 Hepatitis A Antibody IgG Positive Normal [facility] Comment on above: Result Comment: Cons istent with serological evidence of immunity to Hepatitis A Virus. Performed By: [facility] [address] [place] [address] Learning And Development Administrator: Diomedes Linder III, M.D. CLIA#: [id number] Performed By: #### H BSAB, HBSAG #### [place] [address] HBCABon 02-06-2024 Hep B Core Total Ab Negative Normal Negative [facility] Comment on above: Result Comment: Perf ormed At: [address] [id number] Vicenta Lezama PhD Ph:[phone] Performed By: #### H BSAB, HBSAG #### [place] [address] HBEAGon 02-06-2024 Hep Be Ag Negative Normal Negative [facility] Comment on above: Result Comment: Perf ormed At: [address] [id number] Vicenta Lezama PhD Ph:[phone] Performed By: #### H BSAB, HBSAG #### [place] [address] HBSABon 02-06-2024 Hep B Surf Ab <3.1 Low >=10.0 [facility] Comment on above: Result Comment: 0 to < 10.0 mIU/mL Nonreactive Patient is considered not to have protective immunity to HBV infection >/= 10.0 mIU/mL Reactive Patient is considered to have protective immunity to HBV infection. This assay is traceable to the World Health Organization (WHO) Hepatitis B Immunoglobulin 1st International Reference Preparation (1976). The accepted criteria for immunity to HBV is anti-HBs activity >/= 10.0 mIU/mL, as defined by the WHO International Reference Preparation. Performed By: #### H BSAB, HBSAG #### [place] [address] HBSAGon 02-06-2024 Hep B Surf Ag Non-Reactive Normal Non-Reacti [facility] Comment on above: Performed By: #### H BSAB, HBSAG #### [place] [address] HAVMon 02-05-2024 Hep A IgM Ab Non-Reactive Normal Non-Reacti [facility] Comment on above: Performed By: #### 1 HAVM, HCV1 #### [place] [address] #### AHAVG, [id number], [id number], 250259 #### [place] [address] Hep A IgM Ab Int [facility] Comment on above: Result Comment: No s erological evidence of a current Hepatitis A infection. See Interp Performed By: #### 1 HAVM, HCV1 #### [place] [address] #### AHAVG, [id number], 555652, 806288 #### [place] [address] HCVon 02-05-2024 Hep C Ab Non-Reactive Normal Non-Reacti [facility] Comment on above: Performed By: #### 1 HAVM, HCV1 #### [place] [address] #### AHAVG, 040215, 839086, 094505 #### [place] [address] Hep C Ab Int [facility] Comment on above: Result Comment: Nonr eactive: Samples with a value < 0.80 are considered nonreactive (negative) for antibodies to HCV. A negative test result does not exclude the possibility of exposure to or infection with HCV. HCV antibodies may be undetectable in some stages of the infection and in some clinical conditions. See Interp Performed By: #### 1 HAVM, HCV1 #### [facility] [address] [place] [address] #### AHAVG, 436837, 776228, 952924 #### [place] [address] [place], [place] [address] LABORATORYOrdered By: Tracy Moses on 02-05-2024 HAV IgM IA Ql Non-Reactive (02/05/24 2:01 PM) Normal Non-Reacti ve AH ADM SS HAV IgM IA Ql No serological evidence of a current Hepatitis A infection. Invalid Interpretation Code Chemistry S HCV Ab IA Ql Non-Reactive (02/05/24 2:01 PM) Normal Non-Reacti ve AH ADM SS HCV Ab IA Ql Nonreactive: Samples with a value < 0.80 are considered nonreactive (negative) for antibodies to HCV.A negative test result does not exclude the possibility of exposure to or infection with HCV. HCV antibodies may be undetectable in some stages of the infection and in some clinical conditions. Invalid Interpretation Code Chemistry S 25(OH)D3 SerPl-ncon 2023 25-hydroxyvitamin D3 [Mass/Vol] 41.9 ng/mL Normal 31.0-80.[address] [facility] Comment on above: Order Comment: Speci men Type: BLOOD SPECIMENOrdering Facility: [facility] Address: [address] [place] [address] Result Comment: Clas sification of 25 [place] Vitamin D status:Deficiency/Insufficiency: < or = 30 ng/ml.Sufficiency/Optimal Levels: 31-80 ng/mLToxicity: > 100 ng/mL.Test performed by chemiluminescent immunoassay. Performed By: #### 1 989-3 ####[facility] LABCLIA [id number] [facility] [id number] [place] [address] [place] HbA1c (Bld)on 01-24-2024 Average glucose Estimated from glycated hemoglobin (Bld) [Mass/Vol] 117 mg/dL Normal [facility] Comment on above: Order Comment: Speci men Type: BLOOD SPECIMENOrdering Facility: [facility] Address: [address] [place] [address] Result Comment: eAG: (Estimated average glucose) is a calculated value from HgbA1c and is customer account representative of the average blood glucose level in the last 2-3 month period. Performed By: #### 5 5454-3 ####[facility] LABCLIA [id number] [place] [address] [place] HbA1c (Bld) [Mass fraction] 5.7 % High 4.3-5.[address] [facility] Comment on above: Order Comment: Mileyi men Type: BLOOD SPECIMENOrdering Facility: [facility] Address: [address] [place] [address] Result Comment: Amer ican Diabetes Association guidelines indicate that patients with HgbA1c in the range 5.7-6.4% are at increased risk for development of diabetes, and intervention by lifestyle modification may be beneficial. HgbA1c greater or equal to 6.5% is considered diagnostic of diabetes. Performed By: #### 5 5454-3 ####[facility] LABIA [id number] [place] [address] [place] Magnesium SerPl-mCncon 01-23 Magnesium [Mass/Vol] 2.1 mg/dL Normal 1.7-2.3 [facility] Comment on above: Order Comment: Speci men Type: BLOOD SPECIMENOrdering Facility: [facility] Address: [address] [place] [address] Performed By: #### 1 9123-9, 3016-3, 2132-9, 3024-7 ####[facility] LABIA [id number] [place] [address] [place] T4 Free SerPl-mCncon 024 Free T4 [Mass/Vol] 1.2 ng/dL Normal 0.9-1.7 [facility] Comment on above: Order Comment: Speci men Type: BLOOD SPECIMENOrdering Facility: [facility] Address: [address] [place], [place] [address] Performed By: #### 1 9123-9, 3, 2132-01, 3023-11 ####[facility] LABCLIA [id number] [place] [id number] [place] TSH SerPl-aCncon 01-24-2024 TSH Qn 2.600 m[IU]/L Normal 0.270-4.[address] [facility] Comment on above: Order Comment: Speci men Type: BLOOD SPECIMENOrdering Facility: [facility] Address: [address] [place] [address] Performed By: #### 1 9123-9, 3, 2132-01, 3023-11 ####[facility] LABCLIA [id number] [place] [address] [place] Vit B12 SerPl-mCncon 024 Cobalamin (Vitamin B12) [Mass/Vol] 497 pg/mL Normal 232-[address] [facility] Comment on above: Order Comment: Speci men Type: BLOOD SPECIMENOrdering Facility: [facility] Address: [address] [place] [address] Performed By: #### 1 9123-9, 3, 2132-01, 3023-11 ####[facility] LABCLIA [id number] [place] [id number] [place] CNOVon 01-23-[address] [facility] CALPROon 01-02-2024 Calprotectin Interp Elevated Abnormal Normal [facility] ([place]) Comment on above: Result Comment: Inte rpretation: <50.0 ug/g: Normal 50.0 ug/g - 120.0 ug/g: Borderline elevated. Re-evaluation in 4-6 weeks is recommended if clinically indicated. >120.0 ug/g: Elevated Performed By: [facility] [address] [place] [address] Learning And Development Administrator: Diomedes Linder III, M.D. CLIA#: [id number] Performed By: #### C RP, CBC, GFR, ADIFF, CMP, ANEU #### [address] [address] Calprotectin, Fecal Quantitative 1880 ug/g High <50 [facility] ([place]) Comment on above: Result Comment: Perf ormed By: [facility] [employer] [facility] [place] [address] Learning And Development Administrator: Diomedes Linder III, M.D. CLIA#: [id number] Performed By: #### C RP, CBC, GFR, ADIFF, CMP, ANEU #### [place] [address] [place], [place] [address] LABORATORYOrdered By: MINDY BILL CONTRIBUTOR_SYSTEM on 01-01-2024 Calprotectin Interp Elevated Invalid Interpretation Code Normal AO [facility] Comment on above: Result Comment: Inte rpretation: <50.0 ug/g: Normal 50.0 ug/g - 120.0 ug/g: Borderline elevated. Re-evaluation in 4-6 weeks is recommended if clinically indicated. >120.0 ug/g: Elevated Performed By: [facility] [employer] [address] [place], [place] [address] Learning And Development Administrator: Diomedes Linder III, M.D. CLIA#: [id number] Calprotectin, Fecal Quantitative 1880 1 High <50 [facility] Comment on above: Result Comment: Perf ormed By: [facility] [employer] [address] [place], [place] [address] Learning And Development Administrator: Diomedes Linder III, M.D. CLIA#: [id number] .GFRon 12-31-2023 GFR 58 ml/min/1.73sqm Normal [facility] ([place]) Comment on above: Result Comment: GFR Population mean for , Non- Americans Ages 20-29 = 116 mL/min/1.73 sq.m. Ages 30-39 = 107 mL/min/1.73 sq.m. Ages 40-49 = 99 mL/min/1.73 sq.m. Ages 50-59 = 93 mL/min/1.73 sq.m. Ages 60-69 = 85 mL/min/1.73 sq.m. Ages 70+ = 75 mL/min/1.73 sq.m. Chronic Kidney Disease: Less than 60 mL/min/1.73 square meters End Stage Renal Disease: Less than 15 mL/min/1.73 square meters Performed By: #### C RP, CBC, GFR, ADIFF, CMP, ANEU #### [address] [address] GFR Non- 48 ml/min/1.73sqm Normal [facility] ([place]) Comment on above: Result Comment: GFR Population mean for , Non- Americans Ages 20-29 = 116 mL/min/1.73 sq.m. Ages 30-39 = 107 mL/min/1.73 sq.m. Ages 40-49 = 99 mL/min/1.73 sq.m. Ages 50-59 = 93 mL/min/1.73 sq.m. Ages 60-69 = 85 mL/min/1.73 sq.m. Ages 70+ = 75 mL/min/1.73 sq.m. Chronic Kidney Disease: Less than 60 mL/min/1.73 square meters End Stage Renal Disease: Less than 15 mL/min/1.73 square meters Performed By: #### C RP, CBC, GFR, ADIFF, CMP, ANEU #### [address] [address] CMPon 12-31-2023 Albumin Level 3.3 G/dL Low 3.4-4.8 [facility] ([place]) Comment on above: Performed By: #### C RP, CBC, GFR, ADIFF, CMP, ANEU #### [address] [address] Albumin/Globulin [Mass ratio] 0.9 {ratio} Low 1.1-2.5 [facility] ([place]) Comment on above: Performed By: #### C RP, CBC, GFR, ADIFF, CMP, ANEU #### [address] [address] ALP [Catalytic activity/Vol] 69 U/L Normal 40-135 [facility] ([place]) Comment on above: Performed By: #### C RP, CBC, GFR, ADIFF, CMP, ANEU #### [address] [address] ALT [Catalytic activity/Vol] 24 U/L Normal 14-59 [facility] ([place]) Comment on above: Performed By: #### C RP, CBC, GFR, ADIFF, CMP, ANEU #### [address] [address] AST [Catalytic activity/Vol] 12 U/L Normal 10-40 [facility] ([place]) Comment on above: Performed By: #### C RP, CBC, GFR, ADIFF, CMP, ANEU #### [address] [address] Bili Total 0.2 mg/dL Normal 0.2-1.0 [facility]) Comment on above: Result Comment: Use of this assay is not recommended for patients undergoing treatment with eltrombopag due to the potential for falsely elevated results. Performed By: #### C RP, CBC, GFR, ADIFF, CMP, ANEU #### [address] [address] BUN/Creatinine Ratio 21 ratio Normal 7-27 [facility] ([place]) Comment on above: Performed By: #### C RP, CBC, GFR, ADIFF, CMP, ANEU #### [address] [address] Calcium [Mass/Vol] 8.9 mg/dL Normal 8.4-10.2 [facility] ([place]) Comment on above: Performed By: #### C RP, CBC, GFR, ADIFF, CMP, ANEU #### [address] [address] Chloride [Moles/Vol] 107 mmol/L Normal 98-107 [facility] ([place]) Comment on above: Performed By: #### C RP, CBC, GFR, ADIFF, CMP, ANEU #### [address] [address] CO2 [Moles/Vol] 24 mmol/L Normal 23-31 [facility] ([place]) Comment on above: Performed By: #### C RP, CBC, GFR, ADIFF, CMP, ANEU #### [address] [address] Creatinine [Mass/Vol] 1.12 mg/dL High 0.55-1.02 [facility] ([place]) Comment on above: Performed By: #### C RP, CBC, GFR, ADIFF, CMP, ANEU #### [address] [address] Electrolyte Balance 10.0 mEq/L Normal 4.0-15.0 [facility] ([place]) Comment on above: Performed By: #### C RP, CBC, GFR, ADIFF, CMP, ANEU #### [address] [address] Globulin 3.5 G/dL Normal [facility] ([place]) Comment on above: Performed By: #### C RP, CBC, GFR, ADIFF, CMP, ANEU #### [address] [address] Glucose [Mass/Vol] 141 mg/dL High 83-110 [facility] ([place]) Comment on above: Performed By: #### C RP, CBC, GFR, ADIFF, CMP, ANEU #### [address] [address] Potassium [Moles/Vol] 4.8 mmol/L Normal 3.5-5.1 [facility] ([place]) Comment on above: Performed By: #### C RP, CBC, GFR, ADIFF, CMP, ANEU #### [address] [address] Sodium [Moles/Vol] 141 mmol/L Normal 136-145 [facility] ([place]) Comment on above: Performed By: #### C RP, CBC, GFR, ADIFF, CMP, ANEU #### [address] [address] Total Protein 6.8 G/dL Normal 6.4-8.2 [facility] ([place]) Comment on above: Performed By: #### C RP, CBC, GFR, ADIFF, CMP, ANEU #### [address] [address] Urea nitrogen [Mass/Vol] 23 mg/dL High 7-18 [facility] ([place]) Comment on above: Performed By: #### C RP, CBC, GFR, ADIFF, CMP, ANEU #### [address] [address] CRPon 12-31-2023 C-Reactive Protein 2.0 mg/dL High 0.0-0.3 [facility] ([place]) Comment on above: Performed By: #### H GMP, CRP, ESR, GFR, CMP #### [place] [address] ESRon 12-31-2023 Erythrocyte Sed Rate 29 mm/hr Normal 0-30 [facility] ([place]) Comment on above: Performed By: #### H GMP, CRP, ESR, GFR, CMP #### [address] [address] HGMPon 12-31-2023 Erythrocyte distribution width (RBC) [Ratio] 13.9 % Normal 11.5-14.5 [facility] ([place]) Comment on above: Performed By: #### H GMP, CRP, ESR, GFR, CMP #### [address] [address] Hematocrit (Bld) [Volume fraction] 37.3 % Normal 37.0-47.0 [facility] ([place]) Comment on above: Performed By: #### H GMP, CRP, ESR, GFR, CMP #### [address] [address] Hgb 12.2 G/dL Normal 12.0-16.0 [facility] ([place]) Comment on above: Performed By: #### H GMP, CRP, ESR, GFR, CMP #### [address] [address] MCH (RBC) [Entitic mass] 29.5 pg Normal 27.0-31.2 [facility] ([place]) Comment on above: Performed By: #### H GMP, CRP, ESR, GFR, CMP #### [address] [address] MCHC 32.7 G/dL Low 33.0-37.0 [facility] ([place]) Comment on above: Performed By: #### H GMP, CRP, ESR, GFR, CMP #### [address] [address] MCV (RBC) [Entitic vol] 90.2 fL Normal 80.0-94.0 [facility] ([place]) Comment on above: Performed By: #### H GMP, CRP, ESR, GFR, CMP #### [address] [address] Platelet 355 10 3/mcL Normal 130-400 [facility] ([place]) Comment on above: Performed By: #### H GMP, CRP, ESR, GFR, CMP #### [address] [address] Platelet mean volume (Bld) [Entitic vol] 7.6 fL Normal 7.4-10.4 [facility] ([place]) Comment on above: Performed By: #### H GMP, CRP, ESR, GFR, CMP #### [address] [address] RBC 4.13 10 6/mcL Low 4.20-5.40 [facility] ([place]) Comment on above: Performed By: #### H GMP, CRP, ESR, GFR, CMP #### [address] [address] WBC 6.0 10 3/mcL Normal 4.6-10.8 [facility] ([place]) Comment on above: Performed By: #### H GMP, CRP, ESR, GFR, CMP #### [address] [address] LABORATORYOrdered By: SYSTEM SYSTEM on 12-31-2023 Albumin BCP dye [Mass/Vol] 3.3 G/dL Low 3 .4 - 4.8 G/dL AO ADM SS Albumin/Globulin [Mass ratio] 0.9 {ratio} Low 1.1 - 2.5 ratio AO ADM SS ALP [Catalytic activity/Vol] 69 U/L Normal 40 - 135 U/L AO ADM SS ALT With P-5'-P [Catalytic activity/Vol] 24 U/L Normal 14 - 59 U/L AO ADM SS AST With P-5'-P [Catalytic activity/Vol] 12 U/L Normal 10 - 40 U/L AO ADM SS Bilirubin [Mass/Vol] 0.2 mg/dL Normal 0.2 - 1 .0 mg/dL AO ADM SS Comment on above: Interpretive Data: U se of this assay is not recommended for patients undergoing treatment with eltrombopag due to the potential for falsely elevated results. Calcium [Mass/Vol] 8.9 mg/dL Normal 8.4 - 10. 2 mg/dL AO ADM SS Chloride [Moles/Vol] 107 mmol/L Normal 98 - 10 7 mmol/L AO ADM SS CO2 [Moles/Vol] 24 mmol/L Normal 23 - 31 mmol/L AO ADM SS Creatinine [Mass/Vol] 1.12 mg/dL High 0.55 - 1.02 mg/dL AO ADM SS CRP [Mass/Vol] 2.0 mg/dL High 0.0 - 0.3 mg/dL AO ADM SS Electrolyte Balance 10.0 mEq/L Normal 4.0 - 15 .0 mEq/L AO ADM SS Erythrocyte distribution width (RBC) [Ratio] 13.9 % Normal 11.5 - 14.5 % AO Workflow SS GFR/1.73 sq M.predicted among blacks MDRD (S/P/Bld) [Vol rate/Area] 58 ml/min/1.73sqm Invalid Interpretation Code AO Chemistry S Comment on above: Interpretive Data: GFR Population mean for , Non- Americans Ages 20-29 = 116 mL/min/1.73 sq.m. Ages 30-39 = 107 mL/min/1.73 sq.m. Ages 40-49 = 99 mL/min/1.73 sq.m. Ages 50-59 = 93 mL/min/1.73 sq.m. Ages 60-69 = 85 mL/min/1.73 sq.m. Ages 70+ = 75 mL/min/1.73 sq.m. Chronic Kidney Disease: Less than 60 mL/min/1.73 square meters End Stage Renal Disease: Less than 15 mL/min/1.73 square meters GFR/1.73 sq M.predicted among non-blacks MDRD (S/P/Bld) [Vol rate/Area] 48 ml/min/1.73sqm Invalid Interpretation Code AO Chemistry S Comment on above: Interpretive Data: GFR Population mean for , Non- Americans Ages 20-29 = 116 mL/min/1.73 sq.m. Ages 30-39 = 107 mL/min/1.73 sq.m. Ages 40-49 = 99 mL/min/1.73 sq.m. Ages 50-59 = 93 mL/min/1.73 sq.m. Ages 60-69 = 85 mL/min/1.73 sq.m. Ages 70+ = 75 mL/min/1.73 sq.m. Chronic Kidney Disease: Less than 60 mL/min/1.73 square meters End Stage Renal Disease: Less than 15 mL/min/1.73 square meters Globulin 3.5 G/dL Invalid Interpretation Code AO ADM SS Glucose [Mass/Vol] 141 mg/dL High 83 - 110 mg/dL AO ADM SS Hematocrit (Bld) [Volume fraction] 37.3 % Normal 37.0 - 47.0 % AO Workflow SS Hemoglobin (Bld) [Mass/Vol] 12.2 G/dL Normal 12.0 - 16.0 G/dL AO Workflow SS MCH (RBC) [Entitic mass] 29.5 pg Normal 27. 0 - 31.2 pg AO Workflow SS MCHC 32.7 G/dL Low 33.0 - 37.0 G/dL AO Workflow SS MCV (RBC) [Entitic vol] 90.2 fL Normal 80.0 - 94.0 fL AO Workflow SS Platelet mean volume (Bld) [Entitic vol] 7.6 fL Normal 7.4 - 10.4 fL AO Workflow SS Platelets (Bld) [#/Vol] 355 103/mcL Normal 130 - 400 10^3/mcL AO Workflow SS Potassium [Moles/Vol] 4.8 mmol/L Normal 3.5 - 5.1 mmol/L AO ADM SS Protein [Mass/Vol] 6.8 G/dL Normal 6.4 - 8.2 G/dL AO ADM SS RBC (Bld) [#/Vol] 4.13 106/mcL Low 4.20 - 5.40 10^6/mcL AO Workflow SS Sodium [Moles/Vol] 141 mmol/L Normal 136 - 145 mmol/L AO ADM SS Urea nitrogen [Mass/Vol] 23 mg/dL High 7 - 18 mg/dL AO ADM SS Urea nitrogen/Creatinine [Mass ratio] 21 ratio Normal 7 - 27 ratio AO ADM SS WBC (Bld) [#/Vol] 6.0 103/mcL Normal 4.6 - 10.8 10^3/mcL AO Workflow SS LABORATORYOrdered By: Galen Rios on 12-31-2023 ESR Photometric method (Bld) [Velocity] 29 mm/hr Normal 0 - 30 mm/hr AO Man Heme SS XR Shoulder - right 3 Viewso n 12-05-2023 IMPRESSION: 1. Mild osteoarthrosis of the right shoulder Head Of Stock: RUTH Transcribe Date/Time: Dec 05 2023 5:29P Dictated by : PADMA BRIONES MD This examination was interpreted and the report reviewed and electronically signed by: PADMA BRIONES MD on Dec 05 2023 5:29PM [facility] DIVISION OF RADIOLOGY * * *Final Report* * * DATE OF EXAM: Dec 03 2023 4:52PM WOX 5253 - XR SHLDR >/=3V AP/LALITO AP/OTHR RT / PROCEDURE REASON: Acute pain of right shoulder * * * * Physician Interpretation * * * * SHOULDER RADIOGRAPHS - RIGHT HISTORY: Acute pain of right shoulder TECHNOLOGIST PROVIDED HISTORY (if applicable): Anterior right shoulder pain x 3-4 days after using a shuttlecock feather trimmer. TECHNIQUE: XR SHLDR >/=3V AP/LALITO AP/OTHR RT COMPARISON: None available RESULT: Right shoulder: The glenohumeral joint demonstrates mild arthrosis with small marginal osteophytes. Proximal migration of the humeral head characteristic for rotator cuff arthropathy. The acromioclavicular joint demonstrates mild hypertrophic osteoarthrosis. Soft tissues appear within normal limits. DIVISION OF RADIOLOGY Provider, [facility] Driss [facility] - 12/05/2023 * * *Final Report* * * DATE OF EXAM: Dec 03 2023 4:52PM WOX 5253 - XR SHLDR >/=3V AP/LALITO AP/OTHR RT / PROCEDURE REASON: Acute pain of right shoulder * * * * Physician Interpretation * * * * SHOULDER RADIOGRAPHS - RIGHT HISTORY: Acute pain of right shoulder TECHNOLOGIST PROVIDED HISTORY (if applicable): Anterior right shoulder pain x 3-4 days after using a shuttlecock feather trimmer. TECHNIQUE: XR SHLDR >/=3V AP/LALITO AP/OTHR RT COMPARISON: None available RESULT: Right shoulder: The glenohumeral joint demonstrates mild arthrosis with small marginal osteophytes. Proximal migration of the humeral head characteristic for rotator cuff arthropathy. The acromioclavicular joint demonstrates mild hypertrophic osteoarthrosis. Soft tissues appear within normal limits. IMPRESSION IMPRESSION: 1. Mild osteoarthrosis of the right shoulder Head Of Stock: RUTH Transcribe Date/Time: Dec 05 2023 5:29P Dictated by : PADMA BRIONES MD This examination was interpreted and the report reviewed and electronically signed by: PADMA BRIONES MD on Dec 05 2023 5:29PM EST [facility] XR Shoulder - right 3 ViewsO rdered By: Ccf Provider on 12-05-2023 [facility] D-DIMERon 12-04-2023 Fibrin D-dimer FEU (PPP) [Mass/Vol] 1330 High NINF [facility] Fibrin D-dimer FEU (PPP) [Ma ss/Vol]on 12-04-2023 D Dimer Age-related Cutoff 730 ng/mL FEU [facility] Interpretation and review of laboratory results Abnormal [facility] 500 ng/mL FEU is the D Dimer cutoff to exclude DVT (deep vein thrombosis) and PE (pulmonary embolism) in patients with a low pre test probability. Supplemental Comment: In patients over 50 years with a low pre test probability for DVT and/or PE, an age adjusted D dimer cutoff can be calculated as [age x 10] ng/mL FEU. For example, a patient of 88 years would have an age adjusted D dimer cutoff of 880 ng/mL FEU. For patients with a suspected DVT, a D dimer level below 500 ng/mL FEU has a negative predictive value of >98.9%, a sensitivity of >96.9% and a specificity of >35.7%. For patients with a suspected PE, a D dimer level below 500 ng/mL FEU has a negative predictive value of >98.5%, and a sensitivity of >96.5% and a specificity of >38.8%. Reference: Eden M, et al. KOJO 2014 311:1117 and Jose Sauceda N, et al. Kenisha Int Med 2016 165:253. [facility] XR Shoulder - right 3 Viewso n 12-03-2023 Radiology Study observation (narrative) [facility] CALPROon 11-28-2023 Calprotectin Interp Elevated Abnormal Normal [facility] ([place]) Comment on above: Result Comment: On [facility] 2022, [facility] implemented a new fecal calprotectin method, the DiaS[employer] Liaison Calprotectin assay. For assistance with interpretation of results in patients undergoing serial monitoring, contact Client Services at [phone] or [phone] to discuss options, preferably within 7 days of issuing this report. Interpretation: <50.0 ug/g: Normal 50.0 ug/g - 120.0 ug/g: Borderline elevated. Re-evaluation in 4-6 weeks is recommended if clinically indicated. >120.0 ug/g: Elevated Performed By: [facility] [employer] [address] [place] [id number] Learning And Development Administrator: Diomedes Linder III, M.D. CLIA#: [id number] Performed By: #### C ALPRO #### [address] [address] Calprotectin, Fecal Quantitative 933 ug/g High <50 [facility] ([place]) Comment on above: Result Comment: Perf ormed By: [facility] [employer] [address] [place] [id number] Learning And Development Administrator: Diomedes Linder III, M.D. CLIA#: [id number] Performed By: #### C ALPRO #### [place] [address] LABORATORYOrdered By: MINDY BILL CONTRIBUTOR_SYSTEM on 11-24-2023 Calprotectin Interp Elevated Invalid Interpretation Code Normal AO Sendouts SS Comment on above: Result Comment: On [facility] 2022, [facility] implemented a new fecal calprotectin method, the DiaSorin Liaison Calprotectin assay. For assistance with interpretation of results in patients undergoing serial monitoring, contact Client Services at [phone] or [phone] to discuss options, preferably within 7 days of issuing this report. Interpretation: <50.0 ug/g: Normal 50.0 ug/g - 120.0 ug/g: Borderline elevated. Re-evaluation in 4-6 weeks is recommended if clinically indicated. >120.0 ug/g: Elevated Performed By: [facility] [employer] [facility] [place] [address] Learning And Development Administrator: Diomedes Linder III, M.D. CLIA#: [id number] Calprotectin, Fecal Quantitative 933 1 High <50 AO Sendouts SS Comment on above: Result Comment: Perf ormed By: [facility] [employer] [address] [place] [address] Learning And Development Administrator: Diomedes Linder III, M.D. CLIA#: [id number] .Auto Diffon 11-23-2023 Basophil, Absolute 0.0 10 3/mcL Normal 0.0-0.2 [facility] ([place]) Comment on above: Performed By: #### C RP, CBC, GFR, ADIFF, CMP, ANEU #### [address] [address] Basophils/100 WBC (Bld) 0.3 % Normal 0.0-2.5 [facility] ([place]) Comment on above: Performed By: #### C RP, CBC, GFR, ADIFF, CMP, ANEU #### [address] [address] Eosinophil, Absolute 0.2 10 3/mcL Normal 0.0-0.4 [facility] ([place]) Comment on above: Performed By: #### C RP, CBC, GFR, ADIFF, CMP, ANEU #### [address] [address] Eosinophils/100 WBC (Bld) 3.2 % Normal 0.0-7.0 [facility] ([place]) Comment on above: Performed By: #### C RP, CBC, GFR, ADIFF, CMP, ANEU #### [address] [address] Lymphocyte, Absolute 1.6 10 3/mcL Normal 0.8-3.9 [facility] ([place]) Comment on above: Performed By: #### C RP, CBC, GFR, ADIFF, CMP, ANEU #### [address] [address] Lymphocytes/100 WBC (Bld) 33.9 % Normal 10.0-50.0 [facility] ([place]) Comment on above: Performed By: #### C RP, CBC, GFR, ADIFF, CMP, ANEU #### [address] [address] Monocyte, Absolute 0.5 10 3/mcL Normal 0.2-1.0 [facility] ([place]) Comment on above: Performed By: #### C RP, CBC, GFR, ADIFF, CMP, ANEU #### [address] [address] Monocytes/100 WBC (Bld) 10.0 % Normal 1.7-13.0 [facility] ([place]) Comment on above: Performed By: #### C RP, CBC, GFR, ADIFF, CMP, ANEU #### [address] [address] Neutrophils/100 WBC (Bld) 52.6 % Normal 37.0-80.0 [facility] ([place]) Comment on above: Performed By: #### C RP, CBC, GFR, ADIFF, CMP, ANEU #### [address] [address] .GFRon 11-23-2023 GFR 61 ml/min/1.73sqm Normal [facility] ([place]) Comment on above: Result Comment: GFR Population mean for , Non- Americans Ages 20-29 = 116 mL/min/1.73 sq.m. Ages 30-39 = 107 mL/min/1.73 sq.m. Ages 40-49 = 99 mL/min/1.73 sq.m. Ages 50-59 = 93 mL/min/1.73 sq.m. Ages 60-69 = 85 mL/min/1.73 sq.m. Ages 70+ = 75 mL/min/1.73 sq.m. Chronic Kidney Disease: Less than 60 mL/min/1.73 square meters End Stage Renal Disease: Less than 15 mL/min/1.73 square meters Performed By: #### C RP, CBC, GFR, ADIFF, CMP, ANEU #### [address] [address] GFR Non- 50 ml/min/1.73sqm Normal [facility] ([place]) Comment on above: Result Comment: GFR Population mean for , Non- Americans Ages 20-29 = 116 mL/min/1.73 sq.m. Ages 30-39 = 107 mL/min/1.73 sq.m. Ages 40-49 = 99 mL/min/1.73 sq.m. Ages 50-59 = 93 mL/min/1.73 sq.m. Ages 60-69 = 85 mL/min/1.73 sq.m. Ages 70+ = 75 mL/min/1.73 sq.m. Chronic Kidney Disease: Less than 60 mL/min/1.73 square meters End Stage Renal Disease: Less than 15 mL/min/1.73 square meters Performed By: #### C RP, CBC, GFR, ADIFF, CMP, ANEU #### [address] [address] .NEUABSon 11-23-2023 Neutrophil, Absolute 2.5 10 3/mcL Low 2.9-6.2 [facility] ([place]) Comment on above: Performed By: #### C RP, CBC, GFR, ADIFF, CMP, ANEU #### [address] [address] CBCon 11-23-2023 Erythrocyte distribution width (RBC) [Ratio] 15.5 % High 11.5-14.5 [facility] ([place]) Comment on above: Performed By: #### C RP, CBC, GFR, ADIFF, CMP, ANEU #### [address] [address] Hematocrit (Bld) [Volume fraction] 39.0 % Normal 37.0-47.0 [facility] ([place]) Comment on above: Performed By: #### C RP, CBC, GFR, ADIFF, CMP, ANEU #### [address] [address] Hgb 13.0 G/dL Normal 12.0-16.0 [facility] ([place]) Comment on above: Performed By: #### C RP, CBC, GFR, ADIFF, CMP, ANEU #### [address] [address] MCH (RBC) [Entitic mass] 29.6 pg Normal 27.0-31.2 [facility] ([place]) Comment on above: Performed By: #### C RP, CBC, GFR, ADIFF, CMP, ANEU #### [address] [address] MCHC 33.3 G/dL Normal 33.0-37.0 [facility] ([place]) Comment on above: Performed By: #### C RP, CBC, GFR, ADIFF, CMP, ANEU #### [address] [address] MCV (RBC) [Entitic vol] 88.9 fL Normal 80.0-94.0 A [facility] ([place]) Comment on above: Performed By: #### C RP, CBC, GFR, ADIFF, CMP, ANEU #### [address] [address] Platelet 208 10 3/mcL Normal 130-400 [facility] ([place]) Comment on above: Performed By: #### C RP, CBC, GFR, ADIFF, CMP, ANEU #### [address] [address] Platelet mean volume (Bld) [Entitic vol] 8.1 fL Normal 7.4-10.4 [facility] ([place]) Comment on above: Performed By: #### C RP, CBC, GFR, ADIFF, CMP, ANEU #### [address] [address] RBC 4.39 10 6/mcL Normal 4.20-5.40 [facility] ([place]) Comment on above: Performed By: #### C RP, CBC, GFR, ADIFF, CMP, ANEU #### [address] [address] WBC 4.8 10 3/mcL Normal 4.6-10.8 [facility] ([place]) Comment on above: Performed By: #### C RP, CBC, GFR, ADIFF, CMP, ANEU #### [address] [address] CMPon 11-23-2023 Albumin Level 3.3 G/dL Low 3.4-4.8 [facility] ([place]) Comment on above: Performed By: #### C RP, CBC, GFR, ADIFF, CMP, ANEU #### [address] [address] Albumin/Globulin [Mass ratio] 1.0 {ratio} Low 1.1-2.5 [facility] ([place]) Comment on above: Performed By: #### C RP, CBC, GFR, ADIFF, CMP, ANEU #### [address] [address] ALP [Catalytic activity/Vol] 78 U/L Normal 40-135 [facility] ([place]) Comment on above: Performed By: #### C RP, CBC, GFR, ADIFF, CMP, ANEU #### [address] [address] ALT [Catalytic activity/Vol] 27 U/L Normal 14-59 [facility] ([place]) Comment on above: Performed By: #### C RP, CBC, GFR, ADIFF, CMP, ANEU #### [address] [address] AST [Catalytic activity/Vol] 16 U/L Normal 10-40 [facility] ([place]) Comment on above: Performed By: #### C RP, CBC, GFR, ADIFF, CMP, ANEU #### [address] [address] Bili Total 0.4 mg/dL Normal 0.2-1.0 [facility] ([place]) Comment on above: Result Comment: Use of this assay is not recommended for patients undergoing treatment with eltrombopag due to the potential for falsely elevated results. Performed By: #### C RP, CBC, GFR, ADIFF, CMP, ANEU #### [address] [address] BUN/Creatinine Ratio 22 ratio Normal 7-27 [facility] ([place]) Comment on above: Performed By: #### C RP, CBC, GFR, ADIFF, CMP, ANEU #### [address] [address] Calcium [Mass/Vol] 8.5 mg/dL Normal 8.4-10.2 [facility] ([place]) Comment on above: Performed By: #### C RP, CBC, GFR, ADIFF, CMP, ANEU #### [address] [address] Chloride [Moles/Vol] 107 mmol/L Normal 98-107 [facility] ([place]) Comment on above: Performed By: #### C RP, CBC, GFR, ADIFF, CMP, ANEU #### [address] [address] CO2 [Moles/Vol] 28 mmol/L Normal 23-31 [facility] ([place]) Comment on above: Performed By: #### C RP, CBC, GFR, ADIFF, CMP, ANEU #### [address] [address] Creatinine [Mass/Vol] 1.07 mg/dL High 0.55-1.02 [facility] ([place]) Comment on above: Performed By: #### C RP, CBC, GFR, ADIFF, CMP, ANEU #### [address] [address] Electrolyte Balance 8.0 mEq/L Normal 4.0-15.0 [facility] ([place]) Comment on above: Performed By: #### C RP, CBC, GFR, ADIFF, CMP, ANEU #### [address] [address] Globulin 3.2 G/dL Normal [facility] ([place]) Comment on above: Performed By: #### C RP, CBC, GFR, ADIFF, CMP, ANEU #### [address] [address] Glucose [Mass/Vol] 127 mg/dL High 83-110 [facility] ([place]) Comment on above: Performed By: #### C RP, CBC, GFR, ADIFF, CMP, ANEU #### [address] [address] Potassium [Moles/Vol] 3.9 mmol/L Normal 3.5-5.1 [facility] ([place]) Comment on above: Performed By: #### C RP, CBC, GFR, ADIFF, CMP, ANEU #### [address] [address] Sodium [Moles/Vol] 143 mmol/L Normal 136-145 [facility] ([place]) Comment on above: Performed By: #### C RP, CBC, GFR, ADIFF, CMP, ANEU #### [address] [address] Total Protein 6.5 G/dL Normal 6.4-8.2 [facility] ([place]) Comment on above: Performed By: #### C RP, CBC, GFR, ADIFF, CMP, ANEU #### [address] [address] Urea nitrogen [Mass/Vol] 24 mg/dL High 7-18 [facility] ([place]) Comment on above: Performed By: #### C RP, CBC, GFR, ADIFF, CMP, ANEU #### [address] [address] CRPon 11-23-2023 C-Reactive Protein 1.7 mg/dL High 0.0-0.3 [facility] ([place]) Comment on above: Performed By: #### C RP, CBC, GFR, ADIFF, CMP, ANEU #### [address] [address] LABORATORYOrdered By: SYSTEM SYSTEM on 11-23-2023 Albumin BCP dye [Mass/Vol] 3.3 G/dL Low 3 .4 - 4.8 G/dL AO ADM SS Albumin/Globulin [Mass ratio] 1.0 {ratio} Low 1.1 - 2.5 ratio AO ADM SS ALP [Catalytic activity/Vol] 78 U/L Normal 40 - 135 U/L AO ADM SS ALT With P-5'-P [Catalytic activity/Vol] 27 U/L Normal 14 - 59 U/L AO ADM SS AST With P-5'-P [Catalytic activity/Vol] 16 U/L Normal 10 - 40 U/L AO ADM SS Basophil, Absolute 0.0 103/mcL Normal 0.0 - 0.2 10^3/mcL AO Workflow SS Basophils/100 WBC (Bld) 0.3 % Normal 0.0 - 2.5 % AO Workflow SS Bilirubin [Mass/Vol] 0.4 mg/dL Normal 0.2 - 1 .0 mg/dL AO ADM SS Comment on above: Interpretive Data: U se of this assay is not recommended for patients undergoing treatment with eltrombopag due to the potential for falsely elevated results. Calcium [Mass/Vol] 8.5 mg/dL Normal 8.4 - 10. 2 mg/dL AO ADM SS Chloride [Moles/Vol] 107 mmol/L Normal 98 - 10 7 mmol/L AO ADM SS CO2 [Moles/Vol] 28 mmol/L Normal 23 - 31 mmol/L AO ADM SS Creatinine [Mass/Vol] 1.07 mg/dL High 0.55 - 1.02 mg/dL AO ADM SS CRP [Mass/Vol] 1.7 mg/dL High 0.0 - 0.3 mg/dL AO ADM SS Electrolyte Balance 8.0 mEq/L Normal 4.0 - 15 .0 mEq/L AO ADM SS Eosinophil, Absolute 0.2 103/mcL Normal 0.0 - 0 .4 10^3/mcL AO Workflow SS Eosinophils/100 WBC (Bld) 3.2 % Normal 0. 0 - 7.0 % AO Workflow SS Erythrocyte distribution width (RBC) [Ratio] 15.5 % High 11.5 - 14.5 % AO Workflow SS GFR/1.73 sq M.predicted among blacks MDRD (S/P/Bld) [Vol rate/Area] 61 ml/min/1.73sqm Invalid Interpretation Code AO Chemistry S Comment on above: Interpretive Data: GFR Population mean for , Non- Americans Ages 20-29 = 116 mL/min/1.73 sq.m. Ages 30-39 = 107 mL/min/1.73 sq.m. Ages 40-49 = 99 mL/min/1.73 sq.m. Ages 50-59 = 93 mL/min/1.73 sq.m. Ages 60-69 = 85 mL/min/1.73 sq.m. Ages 70+ = 75 mL/min/1.73 sq.m. Chronic Kidney Disease: Less than 60 mL/min/1.73 square meters End Stage Renal Disease: Less than 15 mL/min/1.73 square meters GFR/1.73 sq M.predicted among non-blacks MDRD (S/P/Bld) [Vol rate/Area] 50 ml/min/1.73sqm Invalid Interpretation Code AO Chemistry S Comment on above: Interpretive Data: GFR Population mean for , Non- Americans Ages 20-29 = 116 mL/min/1.73 sq.m. Ages 30-39 = 107 mL/min/1.73 sq.m. Ages 40-49 = 99 mL/min/1.73 sq.m. Ages 50-59 = 93 mL/min/1.73 sq.m. Ages 60-69 = 85 mL/min/1.73 sq.m. Ages 70+ = 75 mL/min/1.73 sq.m. Chronic Kidney Disease: Less than 60 mL/min/1.73 square meters End Stage Renal Disease: Less than 15 mL/min/1.73 square meters Globulin 3.2 G/dL Invalid Interpretation Code AO ADM SS Glucose [Mass/Vol] 127 mg/dL High 83 - 110 mg/dL AO ADM SS Hematocrit (Bld) [Volume fraction] 39.0 % Normal 37.0 - 47.0 % AO Workflow SS Hemoglobin (Bld) [Mass/Vol] 13.0 G/dL Normal 12.0 - 16.0 G/dL AO Workflow SS Lymphocyte, Absolute 1.6 103/mcL Normal 0.8 - 3 .9 10^3/mcL AO Workflow SS Lymphocytes/100 WBC (Bld) 33.9 % Normal 10 .0 - 50.0 % AO Workflow SS MCH (RBC) [Entitic mass] 29.6 pg Normal 27. 0 - 31.2 pg AO Workflow SS MCHC 33.3 G/dL Normal 33.0 - 37.0 G/dL AO Workflow SS MCV (RBC) [Entitic vol] 88.9 fL Normal 80.0 - 94.0 fL AO Workflow SS Monocyte, Absolute 0.5 103/mcL Normal 0.2 - 1.0 10^3/mcL AO Workflow SS Monocytes/100 WBC (Bld) 10.0 % Normal 1.7 - 13.0 % AO Workflow SS Neutrophil, Absolute 2.5 103/mcL Low 2.9 - 6 .2 10^3/mcL AO Workflow SS Neutrophils/100 WBC (Bld) 52.6 % Normal 37 .0 - 80.0 % AO Workflow SS Platelet mean volume (Bld) [Entitic vol] 8.1 fL Normal 7.4 - 10.4 fL AO Workflow SS Platelets (Bld) [#/Vol] 208 103/mcL Normal 130 - 400 10^3/mcL AO Workflow SS Potassium [Moles/Vol] 3.9 mmol/L Normal 3.5 - 5.1 mmol/L AO ADM SS Protein [Mass/Vol] 6.5 G/dL Normal 6.4 - 8.2 G/dL AO ADM SS RBC (Bld) [#/Vol] 4.39 106/mcL Normal 4.20 - 5.40 10^6/mcL AO Workflow SS Sodium [Moles/Vol] 143 mmol/L Normal 136 - 145 mmol/L AO ADM SS Urea nitrogen [Mass/Vol] 24 mg/dL High 7 - 18 mg/dL AO ADM SS Urea nitrogen/Creatinine [Mass ratio] 22 ratio Normal 7 - 27 ratio AO ADM SS WBC (Bld) [#/Vol] 4.8 103/mcL Normal 4.6 - 10.8 10^3/mcL AO Workflow SS XR Chest PA and Lateralon IMPRESSION: No acute radiographic abnormality. Head Of Stock: PSCB Transcribe Date/Time: Aug 26 2023 8:41A Dictated by : JEN MINOR MD This examination was interpreted and the report reviewed and electronically signed by: JEN MINOR MD on Aug 26 2023 8:43AM [facility] DIVISION OF RADIOLOGY * * *Final Report* * * DATE OF EXAM: Aug 24 2023 12:02PM WOX [id number] - XR CHEST 2V FRONTAL/LAT / PROCEDURE REASON: multiple diagnoses * * * * Physician Interpretation * * * * EXAMINATION: CHEST RADIOGRAPH (2 VIEW FRONTAL & LATERAL) CLINICAL HISTORY: Wheezing SOB (shortness of breath) MQ: XC2_6 EXAM DATE/TIME: 08/24/2023 12:02 PM COMPARISON: 07/31/2023 RESULT: Lines, tubes, and devices: None. Lungs and pleura: No consolidation. No lung mass. No pleural effusion. No pneumothorax. Cardiomediastinal silhouette: Normal cardiomediastinal silhouette. Aorta is tortuous with atherosclerotic changes, stable Bones and soft tissues: Degenerative changes of the thoracic spine. Postsurgical changes of the left humerus DIVISION OF RADIOLOGY Provider, Benoit Moss - 08/26/2023 * * *Final Report* * * DATE OF EXAM: Aug 24 2023 12:02PM WOX [id number] - XR CHEST 2V FRONTAL/LAT / PROCEDURE REASON: multiple diagnoses * * * * Physician Interpretation * * * * EXAMINATION: CHEST RADIOGRAPH (2 VIEW FRONTAL & LATERAL) CLINICAL HISTORY: Wheezing SOB (shortness of breath) MQ: XC2_6 EXAM DATE/TIME: 08/24/2023 12:02 PM COMPARISON: 07/31/2023 RESULT: Lines, tubes, and devices: None. Lungs and pleura: No consolidation. No lung mass. No pleural effusion. No pneumothorax. Cardiomediastinal silhouette: Normal cardiomediastinal silhouette. Aorta is tortuous with atherosclerotic changes, stable Bones and soft tissues: Degenerative changes of the thoracic spine. Postsurgical changes of the left humerus IMPRESSION IMPRESSION: No acute radiographic abnormality. Head Of Stock: PSCVandana Transcribe Date/Time: Aug 26 2023 8:41A Dictated by : JEN MINOR MD This examination was interpreted and the report reviewed and electronically signed by: JEN MINOR MD on Aug 26 2023 8:43AM EST [facility] XR Chest PA and LateralOrder ed By: Cc Provider on 08-26-2023 [facility] XR Chest PA and Lateralon Radiology Study observation (narrative) [facility] Renal function 2000 panelon 08-07-2023 Albumin [Mass/Vol] 4.1 g/dL 3.9 - 4.9 g/dL [facility] Anion gap [Moles/Vol] 13 mmol/L 9 - 18 mmol/L [facility] Calcium [Mass/Vol] 9.4 mg/dL 8.5 - 10. 2 mg/dL [facility] Chloride [Moles/Vol] 103 mmol/L 97 - 10 5 mmol/L [facility] CO2 [Moles/Vol] 23 mmol/L 22 - 30 mmol/L [facility] Creatinine [Mass/Vol] 1.00 mg/dL High 0.58 - 0.96 mg/dL [facility] Estimated Glomerular Filtration Rate 60 mL/min/1.73m >=60 mL/min/1.7 3m [facility] Glucose [Mass/Vol] 106 mg/dL High 74 - 99 mg/dL [facility] Phosphate [Mass/Vol] 3.4 mg/dL 2.7 - 4 .8 mg/dL [facility] Potassium [Moles/Vol] 3.9 mmol/L 3.7 - 5.1 mmol/L [facility] Sodium [Moles/Vol] 139 mmol/L 136 - 144 mmol/L [facility] Urea nitrogen [Mass/Vol] 22 mg/dL High 7 - 21 mg/dL [facility] XR Chest PA and Lateralon IMPRESSION: No acute radiographic abnormality. Head Of Stock: PSCB Transcribe Date/Time: Jul 31 2023 3:44P Dictated by : RICARDO GREER MD This examination was interpreted and the report reviewed and electronically signed by: RICARDO GREER MD on Jul 31 2023 3:45PM [facility] DIVISION OF RADIOLOGY * * *Final Report* * * DATE OF EXAM: Jul 31 2023 3:21PM WOX 5291 - XR CHEST 2V FRONTAL/LAT / PROCEDURE REASON: multiple diagnoses * * * * Physician Interpretation * * * * EXAMINATION: CHEST RADIOGRAPH (2 VIEW FRONTAL & LATERAL) CLINICAL HISTORY: Pedal edema SOB (shortness of breath) MQ: XC2_6 EXAM DATE/TIME: 07/31/2023 3:21 PM COMPARISON: No relevant prior studies available. RESULT: Lines, tubes, and devices: None. Lungs and pleura: No consolidation. No lung mass. No pleural effusion. No pneumothorax. There are large pericardial fat pads. Cardiomediastinal silhouette: The cardiac silhouette is within normal limits, with tortuosity or dilation of the thoracic aorta. Bones and soft tissues: The spine shows degenerative changes. Postoperative changes seen in the left humerus. DIVISION OF RADIOLOGY Provider, Benoit Moss - 07/31/2023 * * *Final Report* * * DATE OF EXAM: Jul 31 2023 3:21PM WOX 5291 - XR CHEST 2V FRONTAL/LAT / PROCEDURE REASON: multiple diagnoses * * * * Physician Interpretation * * * * EXAMINATION: CHEST RADIOGRAPH (2 VIEW FRONTAL & LATERAL) CLINICAL HISTORY: Pedal edema SOB (shortness of breath) MQ: XC2_6 EXAM DATE/TIME: 07/31/2023 3:21 PM COMPARISON: No relevant prior studies available. RESULT: Lines, tubes, and devices: None. Lungs and pleura: No consolidation. No lung mass. No pleural effusion. No pneumothorax. There are large pericardial fat pads. Cardiomediastinal silhouette: The cardiac silhouette is within normal limits, with tortuosity or dilation of the thoracic aorta. Bones and soft tissues: The spine shows degenerative changes. Postoperative changes seen in the left humerus. IMPRESSION IMPRESSION: No acute radiographic abnormality. Head Of Stock: PSCB Transcribe Date/Time: Jul 31 2023 3:44P Dictated by : RICARDO GREER MD This examination was interpreted and the report reviewed and electronically signed by: RICARDO GREER MD on Jul 31 2023 3:45PM EST [facility] Radiology Study observation (narrative) [facility] XR Chest PA and LateralOrder ed By: Ccf Provider on 07-31-2023 [facility] C-REACTIVE PROTEIN (CRP)on 0 07-09-2023 CRP [Mass/Vol] 0.9 mg/dL High <0.9 mg/dL [facility] CBC W Auto Differential pane l (Bld)on 07-09-2023 Basophils (Bld) [#/Vol] <0.11 k/uL [facility] Basophils/100 WBC (Bld) 0.3 % [facility] Differential cell count method Nom (Bld) Auto [facility] Eosinophils (Bld) [#/Vol] 0.20 10*3/uL <0.46 k/ uL [facility] Eosinophils/100 WBC (Bld) 2.6 % [facility] Erythrocyte distribution width (RBC) [Ratio] 13.2 % 11.5 - 15.0 % [facility] Hematocrit (Bld) [Volume fraction] 42.3 % 36.0 - 46.0 % [facility] Hemoglobin (Bld) [Mass/Vol] 13.5 g/dL 11.5 - 15.5 g/dL [facility] Immature granulocytes (Bld) [#/Vol] 0.03 10*3/uL <0.10 k/uL [facility] Immature granulocytes/100 WBC (Bld) 0.4 % [facility] Lymphocytes (Bld) [#/Vol] 3.20 10*3/uL 1. 00 - 4.00 k/uL [facility] Lymphocytes/100 WBC (Bld) 41.7 % [facility] MCH (RBC) [Entitic mass] 30.0 pg 26. 0 - 34.0 pg [facility] MCHC (RBC) [Mass/Vol] 31.9 g/dL 30.5 - 36.0 g/dL [facility] MCV (RBC) [Entitic vol] 94.0 fL 80.0 - 100.0 fL [facility] Monocytes (Bld) [#/Vol] 0.57 10*3/uL <0.87 k/uL [facility] Monocytes/100 WBC (Bld) 7.4 % C [facility] Neutrophils (Bld) [#/Vol] 3.65 10*3/uL 1. 45 - 7.50 k/uL [facility] Neutrophils/100 WBC (Bld) 47.6 % [facility] Nucleated RBC (Bld) [#/Vol] <0.01 k/ uL [facility] Nucleated RBC/100 WBC (Bld) [Ratio] 0.0 /100 WBC [facility] Platelet mean volume (Bld) [Entitic vol] 10.9 fL 9.0 - 12.7 fL [facility] Platelets (Bld) [#/Vol] 249 10*3/uL 150 - 400 k/uL [facility] RBC (Bld) [#/Vol] 4.50 10*6/uL 3.90 - 5.20 m/uL [facility] WBC (Bld) [#/Vol] 7.67 10*3/uL 3.70 - 11.00 k/uL [facility] Comprehensive metabolic 2000 panelon 07-09-2023 Albumin [Mass/Vol] 4.3 g/dL 3.9 - 4.9 g/dL [facility] ALP [Catalytic activity/Vol] 64 U/L 34 - 123 U/L [facility] ALT [Catalytic activity/Vol] 14 U/L 7 - 38 U/L [facility] Anion gap [Moles/Vol] 11 mmol/L 9 - 18 mmol/L [facility] AST [Catalytic activity/Vol] 18 U/L 13 - 35 U/L [facility] Bilirubin [Mass/Vol] 0.3 mg/dL 0.2 - 1 .3 mg/dL [facility] Calcium [Mass/Vol] 9.4 mg/dL 8.5 - 10. 2 mg/dL [facility] Chloride [Moles/Vol] 104 mmol/L 97 - 10 5 mmol/L [facility] CO2 [Moles/Vol] 24 mmol/L 22 - 30 mmol/L [facility] Creatinine [Mass/Vol] 0.99 mg/dL High 0.58 - 0.96 mg/dL [facility] Estimated Glomerular Filtration Rate 60 mL/min/1.73m >=60 mL/min/1.7 3m [facility] Glucose [Mass/Vol] 102 mg/dL High 74 - 99 mg/dL [facility] Potassium [Moles/Vol] 4.4 mmol/L 3.7 - 5.1 mmol/L [facility] Protein [Mass/Vol] 6.9 g/dL 6.3 - 8.0 g/dL [facility] Sodium [Moles/Vol] 139 mmol/L 136 - 144 mmol/L [facility] Urea nitrogen [Mass/Vol] 24 mg/dL High 7 - 21 mg/dL [facility] HbA1c (Bld)on 07-09-2023 Average glucose Estimated from glycated hemoglobin (Bld) [Mass/Vol] 108 mg/dL [facility] HbA1c (Bld) [Mass fraction] 5.4 % 4.3 - 5.6 % [facility] T3 FREE BLDon 07-09-2023 Free T3 [Mass/Vol] 2.9 pg/mL 2.3 - 4.1 pg/mL [facility] T4 FREE/FREE THYROXon 2023 Free T4 [Mass/Vol] 1.3 ng/dL 0.9 - 1.7 ng/dL [facility] TSH BLDon 07-09-2023 TSH Qn 2.070 m[IU]/L 0.270 - 4.200 mIU/L [facility] VITAMIN B12 BLOODon 07-09-19 Cobalamin (Vitamin B12) [Mass/Vol] 660 pg/mL 232 - 1,245 pg/mL [facility] Absolute lymphocyte countOrd ered By: Gray Quintana on 04-17-2023 Lymphocytes Auto (Unsp spec) [#/Vol] 2.66 10*3/uL 0.83-4.51 [facility] Basophil percentageOrdered B y: Gray Quintana on 04-17-2023 Basophils/100 WBC (Bld) 0.3 % 0-1 [facility] Bilirubin [Mass/Vol] 0.30 mg/dL 0.20-1.00 [facility] Comment on above: For patients on eltr ombopag therapy, use of Dimension [place] TBIL is not recommended. Chloride [Moles/Vol] 108 mmol/L 98-107 [facility] Eosinophils/100 WBC (Bld) 6.0 % 0-5 [facility] Glucose [Mass/Vol] 166 mg/dL 74-106 [facility] Comment on above: Fasting Glucose resu lt greater than or equal to 126 mg/dL suggests DIABETES MELLITUS per A.D.A. criteria. Neutrophils (Bld) [#/Vol] 2.7 10*3/uL 2.0-7.7 [facility] Neutrophils/100 WBC (Bld) 43.4 % 47-70 [facility] Potassium [Moles/Vol] 3.7 mmol/L 3.5-5.1 [facility] Protein [Mass/Vol] 6.9 g/dL 6.4-8.2 [facility] Sodium [Moles/Vol] 140 mmol/L 136-145 [facility] WBC (Bld) [#/Vol] 6.1 10*3/uL 4.4-11.0 [facility] Blood erythrocytes count (nu mber/volume)Ordered By: Gray Quintana on 04-17-2023 RBC (Bld) [#/Vol] 4.44 10*6/uL 4.2-5.4 [facility] Blood hemoglobin measurement (mass/volume)Ordered By: Gray Quintana on 04-17-2023 Hemoglobin (Bld) [Mass/Vol] 12.8 g/dL 12.0-15. 0 [facility] Blood lymphocytes/100 leukoc ytesOrdered By: Gray Quintana on 04-17-2023 Lymphocytes/100 WBC (Bld) 43.3 % 19-41 [facility] Blood monocytes/100 leukocyt esOrdered By: Gray Quintana on 04-17-2023 Monocytes/100 WBC (Bld) 6.8 % 0-10 [facility] Blood platelet mean volumeOr dered By: Gray Quintana on 04-17-2023 Platelet mean volume (Bld) [Entitic vol] 10.2 fL 6.2-12.0 [facility] Determination of erythrocyte mean corpuscular volume (MCV)Ordered By: Gray Quintana on 04-17-2023 MCV (RBC) [Entitic vol] 92.3 fL 81-99 [facility] Erythrocyte sedimentation ra teOrdered By: Gray Quintana on 04-17-2023 ESR (Bld) [Velocity] 18 mm/h 0-30 [facility] Hematocrit Auto (Bld) [Volum e fraction]Ordered By: Gray Quintana on 04-17-2023 Hematocrit (Bld) [Volume fraction] 41.0 % 37-47 [facility] Laboratory - Chemistry and C hemistry - challengeOrdered By: Gray Quintana on 04-17-2023 ALP [Catalytic activity/Vol] 69 U/L 45-117 [facility] ALT [Catalytic activity/Vol] 19 U/L 13-56 [facility] CO2 [Moles/Vol] 27.0 mmol/L 21.0-32.0 [facility] Globulin (S) [Mass/Vol] 3.6 g/dL 2.2-4.2 [facility] Urea nitrogen/Creatinine [Mass ratio] 17.6 mg/mg 10-20 [facility] - Hematology and Cell countsOrdered By: Gray Quintana on 04-17-2023 Erythrocyte distribution width (RBC) [Entitic vol] 46.0 fL 35.1-43.9 [facility] Erythrocyte distribution width (RBC) [Ratio] 13.4 % 11.6-14.6 [facility] Immature granulocytes/100 WBC (Bld) 0.200 % 0.0-0.9 [facility] Comment on above: IG% - Immature Granu locytes (promyelocytes, myelocytes and metamyelocytes) > 1% indicates that a LEFT SHIFT is Present. MCH (RBC) [Entitic mass] 28.8 pg 27.0-32.0 [facility] Nucleated RBC/100 WBC (Bld) [Ratio] 0 % 0-5 [facility] MCHC Auto (RBC) [Mass/Vol]Or dered By: Gray Quintana on 04-17-2023 MCHC (RBC) [Mass/Vol] 31.2 g/dL 32-36 [facility] No Panel InformationOrdered By: Gray Quintana on 04-17-2023 Estimated GFR (MDRD) Amer 64 mL/min >60 [facility] Comment on above: GFR Calc Estimated GFR (MDRD) Non-Af Amer 53 mL/min >60 [facility] Comment on above: Non- GFR Calc Platelets bldOrdered By: Yared Quintana on 04-17-2023 Platelets (Bld) [#/Vol] 295 10*3/uL 150-450 [facility] Serum or plasma C reactive p rotein measurement (mass/volume)Ordered By: Gray Quintana on 04-17-2023 CRP [Mass/Vol] 18.00 mg/L 0.0-3.0 [facility] Comment on above: C-Reactive Protein ( CRP) provides useful information for thediagnosis, therapy and monitoring of inflammatory processesand associated diseases. For the evaluation of Relative Riskfor Cardiovascular Disease, a High Sensitivity CRP (HSCRP)should be ordered. Serum or plasma albumin lydia urement (mass/volume)Ordered By: Gray Quintana on 04-17-2023 Albumin [Mass/Vol] 3.3 g/dL 3.2-5.0 [facility] Serum or plasma albumin/glob ulin mass ratioOrdered By: Gray Quintana on 04-17-2023 Albumin/Globulin [Mass ratio] 0.9 {ratio} 0.9-2.4 [facility] Serum or plasma calcium lydia urement (mass/volume)Ordered By: Gray Quintana on 04-17-2023 Calcium [Mass/Vol] 8.5 mg/dL 8.5-10.1 [facility] Serum or plasma creatinine m easurement (mass/volume)Ordered By: Gray Quintana on 04-17-2023 Creatinine [Mass/Vol] 1.08 mg/dL 0.55-1.02 [facility] Comment on above: The validity of the calculated GFR & GFRAA in patients over 70 years has not been determined. Clinical correlation is essential. Serum or plasma urea nitroge n measurement (mass/volume)Ordered By: Gray Quintana on 04-17-2023 Urea nitrogen [Mass/Vol] 19 mg/dL 7-18 [facility] Thin prep Papanicolaou smear with manual screeningOrdered By: Gray Quintana on 04-17-2023 Thin prep Papanicolaou smear with manual screening 13 U/L 15-37 [facility] Thin prep Papanicolaou smear with manual screening 5 5-15 [facility] Influenza virus A and B and SARS-CoV-2 (COVID-19) Ag panel - Upper respiratory specimOrdered By: Jordin Najera on 03-23-2023 SARS-CoV-2 (COVID-19) RNA MOUNIKA+probe Ql (Resp) [facility] RSV Ag EIAOrdered By: Jordin yarbrough on 03-23-2023 RSV Ag Immune stain Ql (Tiss) [facility] Throat Streptococcus pyogene s antigen detection by immunofluorescenceOrdered By: Jordin Najera on 03-23-2023 S. pyogenes Ag IF Ql (Throat) [facility] Urinalysis complete panel (U )on 12-28-2022 Bilirubin Ql (U) Negative Negative [facility] Clarity (Unsp spec) Clear Clear [facility] Color (U) [facility] Epithelial cells LM.HPF (Urine sed) [#/Area] Few Abnormal None Seen /HPF [facility] Glucose Test strip (U) [Mass/Vol] Negative Trace, Negative [facility] Hemoglobin Ql (U) Trace Negative, Trace [facility] Ketones Ql (U) Negative Trace, Negative [facility] Leukocyte esterase Test strip Ql (U) Negative Negative, 25 Shahid/uL [facility] Nitrite Ql (U) Negative Negative [facility] pH (U) 5.5 [pH] 5.0 - 8.0 [facility] Protein (U) [Mass/Vol] Negative Trace , Negative [facility] RBC LM.HPF (Urine sed) [#/Area] 0-3 /HPF 0-3 /HPF [facility] Specific gravity (U) [Rel density] 1.025 1.005 - 1.030 [facility] Urobilinogen Ql (U) Negative Negative [facility] WBC LM.HPF (Urine sed) [#/Area] 0-5 /HPF 0-5 /HPF [facility] CBC W Auto Differential pane l (Bld)on 11-14-2022 Basophils (Bld) [#/Vol] <0.11 k/uL [facility] Basophils/100 WBC (Bld) 0.3 % C [facility] Differential cell count method Nom (Bld) Auto [facility] Eosinophils (Bld) [#/Vol] 0.26 10*3/uL <0.46 k/ uL [facility] Eosinophils/100 WBC (Bld) 3.3 % [facility] Erythrocyte distribution width (RBC) [Ratio] 13.5 % 11.5 - 15.0 % [facility] Hematocrit (Bld) [Volume fraction] 40.4 % 36.0 - 46.0 % [facility] Hemoglobin (Bld) [Mass/Vol] 12.7 g/dL 11.5 - 15.5 g/dL [facility] Immature granulocytes (Bld) [#/Vol] <0.10 k/uL [facility] Immature granulocytes/100 WBC (Bld) 0.3 % [facility] Lymphocytes (Bld) [#/Vol] 2.59 10*3/uL 1. 00 - 4.00 k/uL [facility] Lymphocytes/100 WBC (Bld) 33.2 % [facility] MCH (RBC) [Entitic mass] 29.7 pg 26. 0 - 34.0 pg [facility] MCHC (RBC) [Mass/Vol] 31.4 g/dL 30.5 - 36.0 g/dL [facility] MCV (RBC) [Entitic vol] 94.6 fL 80.0 - 100.0 fL [facility] Monocytes (Bld) [#/Vol] 0.58 10*3/uL <0.87 k/uL [facility] Monocytes/100 WBC (Bld) 7.4 % C [facility] Neutrophils (Bld) [#/Vol] 4.33 10*3/uL 1. 45 - 7.50 k/uL [facility] Neutrophils/100 WBC (Bld) 55.5 % [facility] Nucleated RBC (Bld) [#/Vol] <0.01 k/ uL [facility] Nucleated RBC/100 WBC (Bld) [Ratio] 0.0 /100 WBC [facility] Platelet mean volume (Bld) [Entitic vol] 10.2 fL 9.0 - 12.7 fL [facility] Platelets (Bld) [#/Vol] 301 10*3/uL 150 - 400 k/uL [facility] RBC (Bld) [#/Vol] 4.27 10*6/uL 3.90 - 5.20 m/uL [facility] WBC (Bld) [#/Vol] 7.80 10*3/uL 3.70 - 11.00 k/uL [facility] LABORATORYOrdered By: MINDY BILL CONTRIBUTOR_SYSTEM on 07-12-2022 Calprotectin, Fecal 99.3 mg/kg Invalid Interpretation Code 0-50mg/kg AO [facility] Comment on above: Result Comment: INTE RPRETIVE INFORMATION: Calprotectin, Fecal <50.0 mg/kg : Normal 50.0-120.0 mg/kg: Borderline. Test should be re-evaluated in 4-6 wks. >120.0 mg/kg: Abnormal Performed By: [facility] [address] [place] [address] Learning And Development Administrator: Diomedes Linder III, M.D. CLIA#: [id number] CBC W Auto Differential pane l (Bld)on 07-03-2022 Basophils (Bld) [#/Vol] 0.03 10*3/uL <0.11 k/uL [facility] Basophils/100 WBC (Bld) 0.5 % C [facility] Differential cell count method Nom (Bld) Auto [facility] Eosinophils (Bld) [#/Vol] 0.13 10*3/uL <0.46 k/ uL [facility] Eosinophils/100 WBC (Bld) 2.2 % [facility] Erythrocyte distribution width (RBC) [Ratio] 13.8 % 11.5 - 15.0 % [facility] Hematocrit (Bld) [Volume fraction] 42.3 % 36.0 - 46.0 % [facility] Hemoglobin (Bld) [Mass/Vol] 13.5 g/dL 11.5 - 15.5 g/dL [facility] Immature granulocytes (Bld) [#/Vol] <0.10 k/uL [facility] Immature granulocytes/100 WBC (Bld) 0.0 % [facility] Lymphocytes (Bld) [#/Vol] 2.55 10*3/uL 1. 00 - 4.00 k/uL [facility] Lymphocytes/100 WBC (Bld) 42.9 % [facility] MCH (RBC) [Entitic mass] 29.0 pg 26. 0 - 34.0 pg [facility] MCHC (RBC) [Mass/Vol] 31.9 g/dL 30.5 - 36.0 g/dL [facility] MCV (RBC) [Entitic vol] 90.8 fL 80.0 - 100.0 fL [facility] Monocytes (Bld) [#/Vol] 0.45 10*3/uL <0.87 k/uL [facility] Monocytes/100 WBC (Bld) 7.6 % C [facility] Neutrophils (Bld) [#/Vol] 2.79 10*3/uL 1. 45 - 7.50 k/uL [facility] Neutrophils/100 WBC (Bld) 46.8 % [facility] Nucleated RBC (Bld) [#/Vol] <0.01 k/ uL [facility] Nucleated RBC/100 WBC (Bld) [Ratio] 0.0 /100 WBC [facility] Platelet mean volume (Bld) [Entitic vol] 11.2 fL 9.0 - 12.7 fL [facility] Platelets (Bld) [#/Vol] 233 10*3/uL 150 - 400 k/uL [facility] RBC (Bld) [#/Vol] 4.66 10*6/uL 3.90 - 5.20 m/uL [facility] WBC (Bld) [#/Vol] 5.95 10*3/uL 3.70 - 11.00 k/uL [facility] LABORATORYOrdered By: Tanisha Cartagena on 06-06-2022 Albumin DL <= 20 mg/L (U) [Mass/Vol] 240 mcg/dL Invalid Interpretation Code AO ADM SS Albumin/Creatinine DL <= 20 mg/L (U) [Mass ratio] 2 mcg/mg Invalid Interpretation Code 0 - 30 mcg/mg AO ADM SS Cholesterol [Mass/Vol] 241 mg/dL Invalid Interpretation Code 0 - 200 mg/dL AO ADM SS Cholesterol in HDL [Mass/Vol] 74 mg/dL Invalid Interpretation Code 40 - 60 mg/dL AO ADM SS Cholesterol in LDL [Mass/Vol] 152 mg/dL Invalid Interpretation Code 0 - 130 mg/dL AO ADM SS Creatinine (U) [Mass/Vol] 120.0 mg/dL Invali d Interpretation Code 28.0 - 117.0 mg/dL AO ADM SS Triglyceride [Mass/Vol] 75 mg/dL Invalid Interpretation Code 0 - 150 mg/dL AO ADM SS LABORATORYOrdered By: SYSTEM SYSTEM on 06-06-2022 Albumin BCP dye [Mass/Vol] 3.6 G/dL Inval id Interpretation Code 3.4 - 4.8 G/dL AO ADM SS Albumin/Globulin [Mass ratio] 1.2 {ratio} Invalid Interpretation Code 1.1 - 2.5 ratio AO ADM SS ALP [Catalytic activity/Vol] 81 U/L Invalid Interpretation Code 40 - 135 U/L AO ADM SS ALT With P-5'-P [Catalytic activity/Vol] 29 U/L Invalid Interpretation Code 14 - 59 U/L AO ADM SS AST With P-5'-P [Catalytic activity/Vol] 19 U/L Invalid Interpretation Code 10 - 40 U/L AO ADM SS Bilirubin [Mass/Vol] 0.5 mg/dL Invalid Interpretation Code 0.2 - 1.0 mg/dL AO ADM SS Calcium [Mass/Vol] 9.0 mg/dL Invalid Interpretation Code 8.4 - 10.2 mg/dL AO ADM SS Chloride [Moles/Vol] 105 mmol/L Invalid Interpretation Code 98 - 107 mmol/L AO ADM SS CO2 [Moles/Vol] 28 mmol/L Invalid Interpretation Code 23 - 31 mmol/L AO ADM SS Creatinine [Mass/Vol] 0.96 mg/dL Invalid Interpretation Code 0.55 - 1.02 mg/dL AO ADM SS CRP [Mass/Vol] 0.9 mg/dL Invalid Interpretation Code 0.0 - 0.9 mg/dL AO ADM SS Electrolyte Balance 9.0 mEq/L Invalid Interpretation Code 4.0 - 15.0 mEq/L AO ADM SS GFR 69 ml/min/1.73sqm Invalid Interpretation Code AO Chemistry S GFR Non- 57 ml/min/1.73sqm Inval id Interpretation Code AO Chemistry S Globulin 3.1 G/dL Invalid Interpretation Code AO ADM SS Glucose [Mass/Vol] 97 mg/dL Invalid Interpretation Code 83 - 110 mg/dL AO ADM SS Potassium [Moles/Vol] 4.4 mmol/L Invalid Interpretation Code 3.5 - 5.1 mmol/L AO ADM SS Protein [Mass/Vol] 6.7 G/dL Invalid Interpretation Code 6.4 - 8.2 G/dL AO ADM SS Sodium [Moles/Vol] 142 mmol/L Invalid Interpretation Code 136 - 145 mmol/L AO ADM SS Urea nitrogen [Mass/Vol] 19 mg/dL Invalid Interpretation Code 7 - 18 mg/dL AO ADM SS Urea nitrogen/Creatinine [Mass ratio] 20 ratio Invalid Interpretation Code 7 - 27 ratio AO ADM SS LABORATORYOrdered By: Sophy Sales on 06-06-2022 Erythrocyte distribution width (RBC) [Ratio] 13.5 % Invalid Interpretation Code 11.5 - 14.5 % AO Workflow SS Hematocrit (Bld) [Volume fraction] 39.4 % Invalid Interpretation Code 37.0 - 47.0 % AO Workflow SS Hemoglobin (Bld) [Mass/Vol] 13.2 G/dL Inva lid Interpretation Code 12.0 - 16.0 G/dL AO Workflow SS MCH (RBC) [Entitic mass] 29.7 pg Invalid Interpretation Code 27.0 - 31.2 pg AO Workflow SS MCHC 33.5 G/dL Invalid Interpretation Code 33.0 - 37.0 G/dL AO Workflow SS MCV (RBC) [Entitic vol] 88.6 fL Invalid Interpretation Code 80.0 - 94.0 fL AO Workflow SS Platelet mean volume (Bld) [Entitic vol] 8.2 fL Invalid Interpretation Code 7.4 - 10.4 fL AO Workflow SS Platelets (Bld) [#/Vol] 217 103/mcL Invalid Interpretation Code 130 - 400 10^3/mcL AO Workflow SS RBC (Bld) [#/Vol] 4.45 106/mcL Invalid Interpretation Code 4.20 - 5.40 10^6/mcL AO Workflow SS WBC (Bld) [#/Vol] 4.8 103/mcL Invalid Interpretation Code 4.6 - 10.8 10^3/mcL AO Workflow SS LABORATORYOrdered By: Christina English on 06-06-2022 ESR 15 minute reading (Bld) [Velocity] 9 mm/hr Invalid Interpretation Code 0 - 30 mm/hr AO Man Heme SS LABORATORYOrdered By: MINDY BILL CONTRIBUTOR_SYSTEM on 01-25-2022 Ova & Parasite exam See Below Invalid Interpretation Code AO [facility] SS Comment on above: Result Comment: OVA AND PARASITE EXAM No Parasites Seen SOURCE: STOOL Performed By: [facility] [address] [place] [address] Learning And Development Administrator: Bret Mancini III#: [id number] LABORATORYOrdered By: Andree Cerda on 01-24-2022 Albumin BCP dye [Mass/Vol] 3.2 G/dL Inval id Interpretation Code 3.4 - 4.8 G/dL AO ADM SS Albumin/Globulin [Mass ratio] 1.1 {ratio} Invalid Interpretation Code 1.1 - 2.5 ratio AO ADM SS ALP [Catalytic activity/Vol] 82 U/L Invalid Interpretation Code 40 - 135 U/L AO ADM SS ALT With P-5'-P [Catalytic activity/Vol] 29 U/L Invalid Interpretation Code 14 - 59 U/L AO ADM SS AST With P-5'-P [Catalytic activity/Vol] 16 U/L Invalid Interpretation Code 10 - 40 U/L AO ADM SS Bilirubin [Mass/Vol] 0.2 mg/dL Invalid Interpretation Code 0.2 - 1.0 mg/dL AO ADM SS Calcium [Mass/Vol] 8.5 mg/dL Invalid Interpretation Code 8.4 - 10.2 mg/dL AO ADM SS Chloride [Moles/Vol] 106 mmol/L Invalid Interpretation Code 98 - 107 mmol/L AO ADM SS CO2 [Moles/Vol] 26 mmol/L Invalid Interpretation Code 23 - 31 mmol/L AO ADM SS Creatinine [Mass/Vol] 0.94 mg/dL Invalid Interpretation Code 0.55 - 1.02 mg/dL AO ADM SS CRP [Mass/Vol] 0.3 mg/dL Invalid Interpretation Code 0.0 - 0.9 mg/dL AO ADM SS Electrolyte Balance 9.0 mEq/L Invalid Interpretation Code 4.0 - 15.0 mEq/L AO ADM SS Globulin 2.9 G/dL Invalid Interpretation Code AO ADM SS Glucose [Mass/Vol] 111 mg/dL Invalid Interpretation Code 83 - 110 mg/dL AO ADM SS Potassium [Moles/Vol] 4.2 mmol/L Invalid Interpretation Code 3.5 - 5.1 mmol/L AO ADM SS Protein [Mass/Vol] 6.1 G/dL Invalid Interpretation Code 6.4 - 8.2 G/dL AO ADM SS Sodium [Moles/Vol] 141 mmol/L Invalid Interpretation Code 136 - 145 mmol/L AO ADM SS Urea nitrogen [Mass/Vol] 16 mg/dL Invalid Interpretation Code 7 - 18 mg/dL AO ADM SS Urea nitrogen/Creatinine [Mass ratio] 17 ratio Invalid Interpretation Code 7 - 27 ratio AO ADM SS LABORATORYOrdered By: Sophy Sales on 01-24-2022 Erythrocyte distribution width (RBC) [Ratio] 14.5 % Invalid Interpretation Code 11.5 - 14.5 % AO Workflow SS Hematocrit (Bld) [Volume fraction] 38.4 % Invalid Interpretation Code 37.0 - 47.0 % AO Workflow SS Hemoglobin (Bld) [Mass/Vol] 12.8 G/dL Inva lid Interpretation Code 12.0 - 16.0 G/dL AO Workflow SS MCH (RBC) [Entitic mass] 30.2 pg Invalid Interpretation Code 27.0 - 31.2 pg AO Workflow SS MCHC 33.3 G/dL Invalid Interpretation Code 33.0 - 37.0 G/dL AO Workflow SS MCV (RBC) [Entitic vol] 90.6 fL Invalid Interpretation Code 80.0 - 94.0 fL AO Workflow SS Platelet mean volume (Bld) [Entitic vol] 7.8 fL Invalid Interpretation Code 7.4 - 10.4 fL AO Workflow SS Platelets (Bld) [#/Vol] 276 103/mcL Invalid Interpretation Code 130 - 400 10^3/mcL AO Workflow SS RBC (Bld) [#/Vol] 4.24 106/mcL Invalid Interpretation Code 4.20 - 5.40 10^6/mcL AO Workflow SS WBC 6.6 103/mcL Invalid Interpretation Code 4.6 - 10.8 10^3/mcL AO Workflow SS LABORATORYOrdered By: Tanisha Bell on 01-24-2022 ESR 15 minute reading (Bld) [Velocity] 7 mm/hr Invalid Interpretation Code 0 - 30 mm/hr AO Man Heme SS LABORATORYOrdered By: SYSTEM SYSTEM on 01-24-2022 GFR 71 ml/min/1.73sqm Invalid Interpretation Code AO Chemistry S GFR Non- 59 ml/min/1.73sqm Inval id Interpretation Code AO Chemistry S Absolute lymphocyte counton 12-15-2021 Lymphocytes Auto (Unsp spec) [#/Vol] 2.26 10*3/uL 0.83-4.51 [facility] Work Phone: Basophil percentageon 2021 Basophils/100 WBC (Bld) 0.3 % 0-1 [facility] Work Phone: Eosinophils/100 WBC (Bld) 6.4 % 0-5 [facility] Work Phone: Neutrophils (Bld) [#/Vol] 3.7 10*3/uL 2.0-7.7 [facility] Work Phone: Neutrophils/100 WBC (Bld) 53.2 % 47-70 [facility] Work Phone: WBC (Bld) [#/Vol] 6.9 10*3/uL 4.4-11.0 [facility] Work Phone: Blood erythrocytes count (nu mber/volume)on 12-15-2021 RBC (Bld) [#/Vol] 4.21 10*6/uL 4.2-5.4 [facility] Work Phone: Blood hemoglobin measurement (mass/volume)on 12-15-2021 Hemoglobin (Bld) [Mass/Vol] 12.6 g/dL 12.0-15. 0 [facility] Work Phone: Blood lymphocytes/100 leukoc yteson 12-15-2021 Lymphocytes/100 WBC (Bld) 32.8 % 19-41 [facility] Work Phone: Blood monocytes/100 leukocyt eson 12-15-2021 Monocytes/100 WBC (Bld) 7.0 % 0-10 [facility] Work Phone: Blood platelet mean volumeon 12-15-2021 Platelet mean volume (Bld) [Entitic vol] 10.6 fL 6.2-12.0 [facility] Work Phone: Determination of erythrocyte mean corpuscular volume (MCV)on 12-15-2021 MCV (RBC) [Entitic vol] 95.5 fL 81-99 [facility] Work Phone: Hematocrit Auto (Bld) [Volum e fraction]on 12-15-2021 Hematocrit (Bld) [Volume fraction] 40.2 % 37-47 [facility] Work Phone: Laboratory - Hematology and Cell countson 12-15-2021 Erythrocyte distribution width (RBC) [Entitic vol] 51.2 fL 35.1-43.9 [facility] Work Phone: Erythrocyte distribution width (RBC) [Ratio] 14.6 % 11.6-14.6 [facility] Work Phone: Immature granulocytes/100 WBC (Bld) 0.300 % 0.0-0.9 [facility] Work Phone: Comment on above: IG% - Immature Granu locytes (promyelocytes, myelocytes and metamyelocytes) > 1% indicates that a LEFT SHIFT is Present. MCH (RBC) [Entitic mass] 29.9 pg 27.0-32.0 [facility] Work Phone: Nucleated RBC/100 WBC (Bld) [Ratio] 0 % 0-5 [facility] Work Phone: MCHC Auto (RBC) [Mass/Vol]on 12-15-2021 MCHC (RBC) [Mass/Vol] 31.3 g/dL 32-36 [facility] Work Phone: Platelets bldon 12-15-2021 Platelets (Bld) [#/Vol] 175 10*3/uL 150-450 [facility] Work Phone: LABORATORYOrdered By: Tanisha Cartagena on 12-14-2021 Albumin BCP dye [Mass/Vol] 3.9 G/dL Inval id Interpretation Code 3.4 - 4.8 G/dL AO ADM SS Albumin/Globulin [Mass ratio] 1.3 {ratio} Invalid Interpretation Code 1.1 - 2.5 ratio AO ADM SS ALP [Catalytic activity/Vol] 73 U/L Invalid Interpretation Code 40 - 135 U/L AO ADM SS AST With P-5'-P [Catalytic activity/Vol] 15 U/L Invalid Interpretation Code 10 - 40 U/L AO ADM SS Bilirubin [Mass/Vol] 0.7 mg/dL Invalid Interpretation Code 0.2 - 1.0 mg/dL AO ADM SS Calcium [Mass/Vol] 9.2 mg/dL Invalid Interpretation Code 8.4 - 10.2 mg/dL AO ADM SS Chloride [Moles/Vol] 107 mmol/L Invalid Interpretation Code 98 - 107 mmol/L AO ADM SS Cholesterol [Mass/Vol] 229 mg/dL Invalid Interpretation Code 0 - 200 mg/dL AO ADM SS Cholesterol in HDL [Mass/Vol] 65 mg/dL Invalid Interpretation Code 40 - 60 mg/dL AO ADM SS Cholesterol in LDL [Mass/Vol] 147 mg/dL Invalid Interpretation Code 0 - 130 mg/dL AO ADM SS CO2 [Moles/Vol] 26 mmol/L Invalid Interpretation Code 23 - 31 mmol/L AO ADM SS Creatinine [Mass/Vol] 1.07 mg/dL Invalid Interpretation Code 0.55 - 1.02 mg/dL AO ADM SS Electrolyte Balance 10.0 mEq/L Invalid Interpretation Code 4.0 - 15.0 mEq/L AO ADM SS Globulin 2.9 G/dL Invalid Interpretation Code AO ADM SS Glucose [Mass/Vol] 107 mg/dL Invalid Interpretation Code 83 - 110 mg/dL AO ADM SS Potassium [Moles/Vol] 4.3 mmol/L Invalid Interpretation Code 3.5 - 5.1 mmol/L AO ADM SS Protein [Mass/Vol] 6.8 G/dL Invalid Interpretation Code 6.4 - 8.2 G/dL AO ADM SS Sodium [Moles/Vol] 143 mmol/L Invalid Interpretation Code 136 - 145 mmol/L AO ADM SS Triglyceride [Mass/Vol] 84 mg/dL Invalid Interpretation Code 0 - 150 mg/dL AO ADM SS Urea nitrogen [Mass/Vol] 17 mg/dL Invalid Interpretation Code 7 - 18 mg/dL AO ADM SS Urea nitrogen/Creatinine [Mass ratio] 16 ratio Invalid Interpretation Code 7 - 27 ratio AO ADM SS LABORATORYOrdered By: Andree Cerda on 12-14-2021 Basophil, Absolute 0.0 103/mcL Invalid Interpretation Code 0.0 - 0.2 10^3/mcL AO Workflow SS Basophils/100 WBC (Bld) 0.3 % Invalid Interpretation Code 0.0 - 2.5 % AO Workflow SS Eosinophil, Absolute 0.4 103/mcL Invalid Interpretation Code 0.0 - 0.4 10^3/mcL AO Workflow SS Eosinophils/100 WBC (Bld) 6.2 % Invali d Interpretation Code 0.0 - 7.0 % AO Workflow SS Erythrocyte distribution width (RBC) [Ratio] 15.1 % Invalid Interpretation Code 11.5 - 14.5 % AO Workflow SS Hematocrit (Bld) [Volume fraction] 39.0 % Invalid Interpretation Code 37.0 - 47.0 % AO Workflow SS Hemoglobin (Bld) [Mass/Vol] 13.0 G/dL Inva lid Interpretation Code 12.0 - 16.0 G/dL AO Workflow SS Lymphocyte, Absolute 2.2 103/mcL Invalid Interpretation Code 0.8 - 3.9 10^3/mcL AO Workflow SS Lymphocytes/100 WBC (Bld) 31.2 % Invali d Interpretation Code 10.0 - 50.0 % AO Workflow SS MCH (RBC) [Entitic mass] 29.9 pg Invalid Interpretation Code 27.0 - 31.2 pg AO Workflow SS MCHC 33.3 G/dL Invalid Interpretation Code 33.0 - 37.0 G/dL AO Workflow SS MCV (RBC) [Entitic vol] 89.7 fL Invalid Interpretation Code 80.0 - 94.0 fL AO Workflow SS Monocyte, Absolute 0.6 103/mcL Invalid Interpretation Code 0.2 - 1.0 10^3/mcL AO Workflow SS Monocytes/100 WBC (Bld) 7.9 % Invalid Interpretation Code 1.7 - 13.0 % AO Workflow SS Neutrophil, Absolute 3.9 103/mcL Invalid Interpretation Code 2.9 - 6.2 10^3/mcL AO Workflow SS Neutrophils/100 WBC (Bld) 54.4 % Invali d Interpretation Code 37.0 - 80.0 % AO Workflow SS Platelet mean volume (Bld) [Entitic vol] 8.4 fL Invalid Interpretation Code 7.4 - 10.4 fL AO Workflow SS Platelets (Bld) [#/Vol] 232 103/mcL Invalid Interpretation Code 130 - 400 10^3/mcL AO Workflow SS RBC (Bld) [#/Vol] 4.34 106/mcL Invalid Interpretation Code 4.20 - 5.40 10^6/mcL AO Workflow SS WBC 7.1 103/mcL Invalid Interpretation Code 4.6 - 10.8 10^3/mcL AO Workflow SS LABORATORYOrdered By: SYSTEM SYSTEM on 12-14-2021 GFR 61 ml/min/1.73sqm Invalid Interpretation Code AO Chemistry S GFR Non- 51 ml/min/1.73sqm Inval id Interpretation Code AO Chemistry S Monocyte distribution width Auto (Bld) [Entitic vol] Not Performed 1 *NA* (12/14/21 8:55 AM) Invalid Interpretation Code 0.00 - 20.00 AO Hematology S Comment on above: Result Comment: MDW testing performed only on adult ER patients between the ages of 18-89 years. Laboratory - Microbiology an d Antimicrobial susceptibilityon 12-13-2021 SARS-CoV-2 (COVID-19) RNA MOUNIKA+probe Ql (Unsp spec) Not detected Not Detect [facility] Work Phone: Comment on above: Normal Reference Ran ge: Not DetectedMethod:(RT-PCR) real-time reverse transcriptase PCRLuminex DAWIT Instrument*The Food and Drug Administration (FDA) has issued an Emergency Use Authorization (EAU) for the DAWIT SARS-CoV-2 Assay for the rapid detection of the virus that causes COVID-19. This test has been validated, but the FDAs independent review of this validation is pending.*Negative results do not preclude infection and should not be used as the sole basis for treatment or patient management. Optimum specimen types and timing for peak viral levels during infections caused by SARS-CoV-2 have not been determined. Collection of multiple specimens from the same patient may be necessary to detect the virus. The possibility of a false negative result should be considered if the patient has clinical presentation or has had recent exposure. No Panel Informationon 11-02 Culture Urine 10,000 - 50,000 cfu/ ml Escherichia coli [facility] Work Phone: Escherichia coli Escherichia coli [facility] Work Phone: No Panel Informationon 08-25 Stool Calprotectin 97 ug/g 0-120 [facility] Work Phone: Comment on above: Concentration Interp retation Follow-Up<16 - 50 ug/g Normal None>50 -120 ug/g Borderline Re-evaluate in 4-6 weeks >120 ug/g Abnormal Repeat as clinically indicatedPerformed at: - [facility] [id number] Director: Camilla Tan MD, Phone: [phone] Absolute lymphocyte counton 08-24-2021 Lymphocytes Auto (Unsp spec) [#/Vol] 2.58 10*3/uL 0.83-4.51 [facility] Work Phone: Basophil percentageon 2021 Basophils/100 WBC (Bld) 0.5 % 0-1 [facility] Work Phone: Bilirubin [Mass/Vol] 0.50 mg/dL 0.20-1.00 [facility] Work Phone: Comment on above: For patients on eltr ombopag therapy, use of Dimension [place] TBIL is not recommended. Chloride [Moles/Vol] 109 mmol/L 98-107 [facility] Work Phone: Eosinophils/100 WBC (Bld) 1.6 % 0-5 [facility] Work Phone: [phone] Glucose [Mass/Vol] 122 mg/dL 74-106 [facility] Work Phone: Comment on above: Fasting Glucose resu lt from 100 to 125 mg/dL suggests IMPAIRED HOMEOSTASIS per A.D.A. criteria. Neutrophils (Bld) [#/Vol] 3.2 10*3/uL 2.0-7.7 [facility] Work Phone: Neutrophils/100 WBC (Bld) 51.3 % 47-70 [facility] Work Phone: Potassium [Moles/Vol] 3.4 mmol/L 3.5-5.1 [facility] Work Phone: Protein [Mass/Vol] 7.2 g/dL 6.4-8.2 [facility] Work Phone: Sodium [Moles/Vol] 140 mmol/L 136-145 [facility] Work Phone: WBC (Bld) [#/Vol] 6.3 10*3/uL 4.4-11.0 [facility] Work Phone: Blood erythrocytes count (nu mber/volume)on 08-24-2021 RBC (Bld) [#/Vol] 4.61 10*6/uL 4.2-5.4 [facility]: Blood hemoglobin measurement (mass/volume)on 08-24-2021 Hemoglobin (Bld) [Mass/Vol] 13.6 g/dL 12.0-15. 0 [facility] Work Phone: Blood lymphocytes/100 leukoc yteson 08-24-2021 Lymphocytes/100 WBC (Bld) 41.1 % 19-41 [facility] Work Phone: Blood monocytes/100 leukocyt eson 08-24-2021 Monocytes/100 WBC (Bld) 5.3 % 0-10 [facility] Work Phone: Blood platelet mean volumeon 08-24-2021 Platelet mean volume (Bld) [Entitic vol] 10.2 fL 6.2-12.0 [facility] Work Phone: Determination of erythrocyte mean corpuscular volume (MCV)on 08-24-2021 MCV (RBC) [Entitic vol] 90.5 fL 81-99 [facility] Work Phone: Erythrocyte sedimentation ra [place] 08-24-2021 ESR (Bld) [Velocity] 23 mm/h 0-30 [facility]: Hematocrit Auto (Bld) [Volum e fraction]on 08-24-2021 Hematocrit (Bld) [Volume fraction] 41.7 % 37-47 [facility] Work Phone: Laboratory - Chemistry and C hemistry - challengeon 08-24-2021 ALP [Catalytic activity/Vol] 80 U/L 45-117 [facility] Work Phone: ALT [Catalytic activity/Vol] 24 U/L 13-56 [facility] Work Phone: CO2 [Moles/Vol] 26.0 mmol/L 21.0-32.0 [facility] Work Phone: Globulin (S) [Mass/Vol] 3.7 g/dL 2.2-4.2 [facility] Work Phone: Urea nitrogen/Creatinine [Mass ratio] 19.8 mg/mg 10-20 [facility] Work Phone: Laboratory - Hematology and Cell countson 08-24-2021 Erythrocyte distribution width (RBC) [Entitic vol] 44.9 fL 35.1-43.9 [facility] Work Phone: Erythrocyte distribution width (RBC) [Ratio] 13.5 % 11.6-14.6 [facility] Work Phone: Immature granulocytes/100 WBC (Bld) 0.200 % 0.0-0.9 [facility] Work Phone: Comment on above: IG% - Immature Granu locytes (promyelocytes, myelocytes and metamyelocytes) > 1% indicates that a LEFT SHIFT is Present. MCH (RBC) [Entitic mass] 29.5 pg 27.0-32.0 [facility] Work Phone: Nucleated RBC/100 WBC (Bld) [Ratio] 0 % 0-5 [facility] Work Phone: MCHC Auto (RBC) [Mass/Vol]on 08-24-2021 MCHC (RBC) [Mass/Vol] 32.6 g/dL 32-36 [facility] Work Phone: No Panel Informationon 08-24 Estimated GFR (MDRD) Amer 69 mL/min >60 [facility] Work Phone: Comment on above: GFR Calc Estimated GFR (MDRD) Non-Af Amer 57 mL/min >60 [facility] Work Phone: Comment on above: Non- GFR Calc Vitamin D 25-Hydroxy 48.5 ng/mL [facility] Work Phone: Comment on above: Vitamin D 25(OH) Sta tus Range Deficiency <20 ng/mL (50nmol/L) Insufficiency 20 - 30 ng/mL (50 - 75 nmol/L) Sufficiency 30 - 100 ng/mL (75 - 250 nmol/L) Toxicity >100 ng/mL (>250 nmol/L) Platelets bldon 08-24-2021 Platelets (Bld) [#/Vol] 286 10*3/uL 150-450 [facility] Work Phone: Serum or plasma C reactive p rotein measurement (mass/volume)on 08-24-2021 CRP [Mass/Vol] 11.00 mg/L 0.0-3.0 [facility] Work Phone: Comment on above: C-Reactive Protein ( CRP) provides useful information for thediagnosis, therapy and monitoring of inflammatory processesand associated diseases. For the evaluation of Relative Riskfor Cardiovascular Disease, a High Sensitivity CRP (HSCRP)should be ordered. Serum or plasma albumin lydia urement (mass/volume)on 08-24-2021 Albumin [Mass/Vol] 3.5 g/dL 3.2-5.0 [facility] Work Phone: Serum or plasma albumin/glob ulin mass ratioon 08-24-2021 Albumin/Globulin [Mass ratio] 0.9 {ratio} 0.9-2.4 [facility] Work Phone: Serum or plasma calcium lydia urement (mass/volume)on 08-24-2021 Calcium [Mass/Vol] 9.0 mg/dL 8.5-10.1 [facility] Work Phone: Serum or plasma creatinine m easurement (mass/volume)on 08-24-2021 Creatinine [Mass/Vol] 1.01 mg/dL 0.55-1.02 [facility] Work Phone: Comment on above: The validity of the calculated GFR & GFRAA in patients over 70 years has not been determined. Clinical correlation is essential. Serum or plasma urea nitroge n measurement (mass/volume)on 08-24-2021 Urea nitrogen [Mass/Vol] 20 mg/dL 7-18 [facility] Work Phone: Thin prep Papanicolaou smear with manual screeningon 08-24-2021 Thin prep Papanicolaou smear with manual screening 19 U/L 15-37 [facility] Work Phone: Thin prep Papanicolaou smear with manual screening 5 5-15 [facility] Work Phone: Basophil percentageon 2021 Chloride [Moles/Vol] 109 mmol/L 98-107 [facility] Work Phone: Glucose [Mass/Vol] 97 mg/dL 74-106 [facility] Work Phone: Potassium [Moles/Vol] 4.0 mmol/L 3.5-5.1 [facility] Work Phone: Sodium [Moles/Vol] 140 mmol/L 136-145 [facility] Work Phone: Laboratory - Chemistry and C hemistry - challengeon 08-09-2021 CO2 [Moles/Vol] 27.0 mmol/L 21.0-32.0 [facility] Work Phone: Urea nitrogen/Creatinine [Mass ratio] 18.6 mg/mg 10-20 [facility] Work Phone: No Panel Informationon 08-09 Estimated GFR (MDRD) Amer 78 mL/min >60 [facility] Work Phone: Comment on above: GFR Calc Estimated GFR (MDRD) Non-Af Amer 65 mL/min >60 [facility] Work Phone: Comment on above: Non- GFR Calc Serum or plasma calcium lydia urement (mass/volume)on 08-09-2021 Calcium [Mass/Vol] 8.7 mg/dL 8.5-10.1 [facility] Work Phone: Serum or plasma creatinine m easurement (mass/volume)on 08-09-2021 Creatinine [Mass/Vol] 0.91 mg/dL 0.55-1.02 [facility] Work Phone: Comment on above: The validity of the calculated GFR & GFRAA in patients over 70 years has not been determined. Clinical correlation is essential. Serum or plasma urea nitroge n measurement (mass/volume)on 08-09-2021 Urea nitrogen [Mass/Vol] 17 mg/dL 7-18 [facility] Work Phone: Thin prep Papanicolaou smear with manual screeningon 08-09-2021 Thin prep Papanicolaou smear with manual screening 4 5-15 [facility] Work Phone: No Panel Informationon 06-23 Culture Urine <10,000 cfu/ml. No Significant growth. Sensitivity not indicated. [facility] Work Phone: LABORATORYOrdered By: Sophy Sales on 05-20-2021 ADMITTED TO INTENSIVE CARE UNIT FOR CONDITION OF INTEREST:FIND:PT:^PATIENT:O RD: No (05/20/21 10:39 AM) Invalid Interpretation Code AO Auto Urine SS EMPLOYED IN A HEALTHCARE SETTING:FIND:PT:^PATIENT:OR D: No (05/20/21 10:39 AM) Invalid Interpretation Code AO Auto Urine SS FIRST TEST FOR CONDITION OF INTEREST:FIND:PT:^PATIENT:O RD: Unknown (05/20/21 10:39 AM) Invalid Interpretation Code AO Auto Urine SS HAS SYMPTOMS RELATED TO CONDITION OF INTEREST:FIND:PT:^PATIENT:O RD: Yes (05/20/21 10:39 AM) Invalid Interpretation Code AO Auto Urine SS Illness or injury onset date and time [id number] Invalid Interpretation Code AO Auto Urine SS Patient was hospitalized because of this condition No (05/20/21 10:39 AM) Invalid Interpretation Code AO Auto Urine SS status Not (05/20/21 10:39 AM) Invalid Interpretation Code AO Auto Urine SS RESIDES IN A CONGREGATE CARE SETTING:FIND:PT:^PATIENT:OR D: No (05/20/21 10:39 AM) Invalid Interpretation Code AO Auto Urine SS SARS-CoV-2 (COVID-19) RNA MOUNIKA+probe Ql (Resp) Negative (05/20/21 10:39 AM) Invalid Interpretation Code Negative AO Auto Urine SS SARS-CoV-2 (COVID-19) RNA MOUNIKA+probe Ql (Unsp spec) Negative results do not preclude SARS-CoV-2 infection and should not be used as the sole basis for patient management decisions. Negative results must be combined with clinical observations, patient history, and epidemiological information.There is a risk of false negative values resulting from improperly collected, transported, or handled specimens.There is a risk of false negative values due to the presence of sequence variants in the pathogen targets of the assay, procedural errors, amplification inhibitors in specimens, or inadequate numbers of organisms for amplification.DAWIT SARS-CoV-2 Assay is a Real-Time reverse-transcriptase polymerase chain reaction (RT-PCR) based qualitative in vitro diagnostic test intended for the qualitative detection of nucleic acid from the SARS-CoV-2 in nasopharyngeal swab specimens collected from individuals suspected of COVID-19 by their healthcare provider. Testing is limited to laboratories certified under the Clinical Laboratory Improvement Amendments of 1988 (CLIA), 42 U.S.C. 263a, to perform moderate and high complexity tests. Invalid Interpretation Code AO Auto Urine SS Vital Signs Date Time Vital Sign Value Performing Clinician Facility 01-15-2025 14:35-0400 Body temperature 97.4 [degF] Dr. Gray Quintana DO Work Phone: [facility] 01-15-2025 14:35-0400 Diastolic blood pressure 75 mm[Hg] Dr. Gray Quintana DO Work Phone: [facility] 01-15-2025 14:35-0400 Heart rate 88 /min Dr. Gray Quintana DO Work Phone: [facility] 01-15-2025 14:35-0400 Respiratory rate 18 /min Dr. Gray Quintana DO Work Phone: [facility] 01-15-2025 14:35-0400 SaO2% (BldA) [Mass fraction] 98 % Dr. Gray Quintana DO Work Phone: [phone] [place] [address] 01-15-2025 14:35-0400 Systolic blood pressure 131 mm[Hg] Dr. Gray Quintana DO Work Phone: [facility] 01-15-2025 11:52-0400 Body height 162.[address] Gray Quintana DO Work Phone: [facility] 01-15-2025 11:52-0400 Body mass index (BMI) [Ratio] 40.4 kg/m2 Dr. Gray Quintana DO Work Phone: [facility] 01-15-2025 11:52-0400 Body weight 106.[address] Gray Quintana DO Work Phone: [facility] 01-12-2025 12:33-0400 Body mass index (BMI) [Ratio] 40.82 kg/m2 Madison Podlogar ENTER[employer]ISE INFRASTRUCTURE ARCHITECT.TOOL 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 Work Phone: [facility] 01-12-2025 12:33-0400 Body temperature 98.71 [degF] Madison Podlogar ENTERPRISE INFRASTRUCTURE ARCHITECT.TOOL 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 Work Phone: [facility] 01-12-2025 12:33-0400 Body weight 107.86 kg Madison Podlogar ENTERPRISE INFRASTRUCTURE ARCHITECT.TOOL 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 Work Phone: [facility] 01-12-2025 12:33-0400 Diastolic blood pressure 72 mm[Hg] Madison Podlogar ENTERPRISE INFRASTRUCTURE ARCHITECT.TOOL 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 Work Phone: [facility] 01-12-2025 12:33-0400 Heart rate 88 /min Madison Podlogar ENTERPRISE INFRASTRUCTURE ARCHITECT.TOOL 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 Work Phone: [facility] 01-12-2025 12:33-0400 Respiratory rate 18 /min Madison Podlogar ENTERPRISE INFRASTRUCTURE ARCHITECT.TOOL 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 Work Phone: [facility] 01-12-2025 12:33-0400 SaO2% (BldA) [Mass fraction] 96 % Madison Podlogar ENTERPRISE INFRASTRUCTURE ARCHITECT.TOOL 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 Work Phone: [facility] 01-12-2025 12:33-0400 Systolic blood pressure 114 mm[Hg] Madison Podlogar ENTERPRISE INFRASTRUCTURE ARCHITECT.TOOL 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 Work Phone: [facility] 12-29-2024 10:27-0400 Body mass index (BMI) [Ratio] 40.68 kg/m2 Yarely Tijerina ENTERPRISE INFRASTRUCTURE ARCHITECT.TOOL 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 Work Phone: [facility] 12-29-2024 10:27-0400 Body temperature 97.2 [degF] Yarely Tijerina ENTERPRISE INFRASTRUCTURE ARCHITECT.TOOL 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 Work Phone: [facility] 12-29-2024 10:27-0400 Body weight 107.5 kg Yarely Suppmarcella ENTERPRISE INFRASTRUCTURE ARCHITECT.TOOL 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 Work Phone: [facility] 12-29-2024 10:27-0400 Diastolic blood pressure 82 mm[Hg] Yarely Tijerina ENTERPRISE INFRASTRUCTURE ARCHITECT.TOOL 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 Work Phone: [facility] 12-29-2024 10:27-0400 Heart rate 88 /min Yarely Tijerina ENTERPRISE INFRASTRUCTURE ARCHITECT.TOOL 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 Work Phone: [facility] 12-29-2024 10:27-0400 SaO2% (BldA) [Mass fraction] 95 % Yarely Tijerina ENTERPRISE INFRASTRUCTURE ARCHITECT.TOOL 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 Work Phone: [facility] 12-29-2024 10:27-0400 Systolic blood pressure 120 mm[Hg] Yarely Tijerina ENTERPRISE INFRASTRUCTURE ARCHITECT.TOOL 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 Work Phone: [facility] 12-04-2024 08:44-0400 Body mass index (BMI) [Ratio] 41.63 kg/m2 Jason Francois APRN.TOOL 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 Work Phone: [facility] 12-04-2024 08:44-0400 Body weight 110 kg Jason Francois ENTERPRISE INFRASTRUCTURE ARCHITECT.TOOL 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 Work Phone: [facility] 12-04-2024 08:44-0400 Diastolic blood pressure 81 mm[Hg] Jason Francois APRN.TOOL 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 Work Phone: [facility] 12-04-2024 08:44-0400 Heart rate 90 /min Jason Francois APRN.TOOL 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 Work Phone: [facility] 12-04-2024 08:44-0400 Systolic blood pressure 119 mm[Hg] Jason Francois ENTERPRISE INFRASTRUCTURE ARCHITECT.TOOL 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 Work Phone: [facility] 11-18-2024 11:16-0400 Body mass index (BMI) [Ratio] 41.02 kg/m2 Dominick Click ENTER[employer]ISE IN[employer]RASTRUCTURE ARCHITECT.TOOL 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 Work Phone: [facility] 11-18-2024 11:16-0400 Body weight 108.41 kg Dominick Click ENTERPRISE INFRASTRUCTURE ARCHITECT.TOOL 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 Work Phone: [facility] 11-18-2024 11:16-0400 Diastolic blood pressure 84 mm[Hg] Dominick Click ENTERPRISE INFRASTRUCTURE ARCHITECT.TOOL 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 Work Phone: [facility] 11-18-2024 11:16-0400 Heart rate 83 /min Dominick Click ENTERPRISE INFRASTRUCTURE ARCHITECT.TOOL 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 Work Phone: [facility] 11-18-2024 11:16-0400 Respiratory rate 17 /min Dominick Click ENTERPRISE INFRASTRUCTURE ARCHITECT.TOOL 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 Work Phone: [facility] 11-18-2024 11:16-0400 SaO2% (BldA) [Mass fraction] 94 % Dominick Click ENTER[employer]ISE INFRASTRUCTURE ARCHITECT.TOOL 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 Work Phone: [facility] 11-18-2024 11:16-0400 Systolic blood pressure 132 mm[Hg] Dominick Click ENTERPRISE INFRASTRUCTURE ARCHITECT.TOOL 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 Work Phone: [facility] 11-05-2024 14:12-0400 Body mass index (BMI) [Ratio] 41.4 kg/m2 Cherelle Mo MD Work Phone: [facility] 11-05-2024 14:12-0400 Body weight 109.4 kg Cherelle Mo MD Work Phone: [facility] 11-05-2024 14:12-0400 Heart rate 98 /min Cherelle Mo MD Work Phone: [facility] 11-05-2024 14:12-0400 SaO2% (BldA) [Mass fraction] 95 % Cherelle Mo MD Work Phone: [facility] 10-30-2024 13:32-0400 Body height 162.6 cm Bri Moeller MD Work Phone: [facility] 10-30-2024 13:32-0400 Body mass index (BMI) [Ratio] 41.37 kg/m2 Bri Moeller MD Work Phone: [facility] 10-30-2024 13:32-0400 Body temperature 97 [degF] Bri Moeller MD Work Phone: [facility] 10-30-2024 13:32-0400 Body weight 109.32 kg Bri Moeller MD Work Phone: [facility] 10-30-2024 13:32-0400 Diastolic blood pressure 70 mm[Hg] Bri Moeller MD Work Phone: [facility] 10-30-2024 13:32-0400 Heart rate 98 /min Bri Moeller MD Work Phone: [facility] 10-30-2024 13:32-0400 Respiratory rate 20 /min Bri Moeller MD Work Phone: [facility] 10-30-2024 13:32-0400 SaO2% (BldA) [Mass fraction] 94 % Bri Moeller MD Work Phone: [facility] 10-30-2024 13:32-0400 Systolic blood pressure 102 mm[Hg] Bri Moeller MD Work Phone: [facility] 10-03-2024 07:51-0400 Body mass index (BMI) [Ratio] 41.34 kg/m2 Gray Garciaon DO Work Phone: [facility] 10-03-2024 07:51-0400 Body temperature 97.11 [degF] Gray Quintana DO Work Phone: [facility] 10-03-2024 07:51-0400 Body weight 109.32 kg Gray Stroudrison DO Work Phone: [facility] 10-03-2024 07:51-0400 Diastolic blood pressure 60 mm[Hg] Gray Stroudrison DO Work Phone: [facility] 10-03-2024 07:51-0400 Heart rate 64 /min Gray Quintana DO Work Phone: [facility] 10-03-2024 07:51-0400 Respiratory rate 20 /min Gray Quintana DO Work Phone: [facility] 10-03-2024 07:51-0400 Systolic blood pressure 110 mm[Hg] Gray Quintana DO Work Phone: [facility] 09-23-2024 13:16-0400 Body mass index (BMI) [Ratio] 41 kg/m2 Williams Martinez MD Work Phone: [facility] 09-23-2024 13:16-0400 Body weight 108.41 kg Williams Martinez MD Work Phone: [facility] 09-23-2024 13:16-0400 Diastolic blood pressure 71 mm[Hg] Williams Martinez MD Work Phone: [facility] 09-23-2024 13:16-0400 Heart rate 90 /min Williams Martinez MD Work Phone: [facility] 09-23-2024 13:16-0400 Systolic blood pressure 116 mm[Hg] Williams Martinez MD Work Phone: [facility] 09-11-2024 12:23-0400 Body mass index (BMI) [Ratio] 42.06 kg/m2 Amelia Dania ENTER[employer]ISE INFRASTRUCTURE ARCHITECT.TOOL 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 Work Phone: [facility] 09-11-2024 12:23-0400 Body temperature 98.8 [degF] Amelia Dania ENTERPRISE INFRASTRUCTURE ARCHITECT.TOOL 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 Work Phone: [facility] 09-11-2024 12:23-0400 Body weight 111.22 kg Amelia Dania ENTERPRISE INFRASTRUCTURE ARCHITECT.TOOL 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 Work Phone: [facility] 09-11-2024 12:23-0400 Diastolic blood pressure 68 mm[Hg] Amelia Dania ENTERPRISE INFRASTRUCTURE ARCHITECT.TOOL 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 Work Phone: [facility] Comment on above: bp machine 09-11-2024 12:23-0400 Heart rate 80 /min Amelia Dania ENTERPRISE INFRASTRUCTURE ARCHITECT.TOOL 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 Work Phone: [facility] 09-11-2024 12:23-0400 SaO2% (BldA) [Mass fraction] 95 % Amelia Dania ENTERPRISE INFRASTRUCTURE ARCHITECT.TOOL 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 Work Phone: [facility] 09-11-2024 12:23-0400 Systolic blood pressure 104 mm[Hg] Amelia Dania ENTERPRISE INFRASTRUCTURE ARCHITECT.TOOL 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 Work Phone: [facility] Comment on above: bp machine 07-28-2024 13:05-0500 Diastolic blood pressure 64 mm[Hg] Christina Anthony ENTER[employer]ISE INFRASTRUCTURE ARCHITECT.TOOL 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 Work Phone: [facility] 07-28-2024 13:05-0500 Heart rate 88 /min Christina Anthony ENTERPRISE INFRASTRUCTURE ARCHITECT.TOOL 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 Work Phone: [facility] 07-28-2024 13:05-0500 Respiratory rate 16 /min Christina Anthony ENTERPRISE INFRASTRUCTURE ARCHITECT.TOOL 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 Work Phone: [facility] 07-28-2024 13:05-0500 SaO2% (BldA) [Mass fraction] 98 % Christina Anthony [employer]URE ARCHITECT.TOOL 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 Work Phone: [facility] 07-28-2024 13:05-0500 Systolic blood pressure 130 mm[Hg] Christina Anthony ENTER[employer]ISE [employer]RA[employer]URE ARCHITECT.TOOL 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 Work Phone: [facility] 07-16-2024 12:59-0500 Body mass index (BMI) [Ratio] 41.58 kg/m2 Christina Anthony ENTERPRISE IN[employer]RASTRU[employer]URE ARCHITECT.TOOL 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 Work Phone: [facility] 07-16-2024 12:59-0500 Body weight 109.95 kg Christina Anthony ENTERPRISE INFRASTRUCTURE ARCHITECT.TOOL 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 Work Phone: [facility] 07-16-2024 12:59-0500 Diastolic blood pressure 80 mm[Hg] Christina Anthony ENTERPRISE INFRASTRUCTURE ARCHITECT.TOOL 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 Work Phone: [facility] 07-16-2024 12:59-0500 Heart rate 95 /min Christina Anthony ENTERPRISE INFRASTRUCTURE ARCHITECT.TOOL 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 Work Phone: [facility] 07-16-2024 12:59-0500 Respiratory rate 14 /min Christina Anthony ENTERPRISE INFRASTRUCTURE ARCHITECT.TOOL 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 Work Phone: [facility] 07-16-2024 12:59-0500 SaO2% (BldA) [Mass fraction] 95 % Christina Anthony ENTERPRISE INFRASTRU[employer]URE ARCHITECT.TOOL 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 Work Phone: [facility] 07-16-2024 12:59-0500 Systolic blood pressure 120 mm[Hg] Christina Anthony ENTERPRISE INFRASTRUCTURE ARCHITECT.TOOL 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 Work Phone: [facility] 06-18-2024 13:04-0500 Body mass index (BMI) [Ratio] 41.68 kg/m2 Christina Anthony ENTERPRISE INFRASTRUCTURE ARCHITECT.TOOL 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 Work Phone: [facility] 06-18-2024 13:04-0500 Body weight 110.2 kg Christina Anthony ENTERPRISE INFRASTRUCTURE ARCHITECT.TOOL 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 Work Phone: [facility] 06-18-2024 13:04-0500 Diastolic blood pressure 80 mm[Hg] Christina Anthony ENTERPRISE INFRASTRUCTURE ARCHITECT.TOOL 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 Work Phone: [facility] 06-18-2024 13:04-0500 Heart rate 85 /min Christina Anthony ENTERPRISE INFRASTRUCTURE ARCHITECT.TOOL 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 Work Phone: [facility] 06-18-2024 13:04-0500 Respiratory rate 16 /min Christina Anthony ENTERPRISE INFRASTRUCTURE ARCHITECT.TOOL 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 Work Phone: [facility] 06-18-2024 13:04-0500 SaO2% (BldA) [Mass fraction] 95 % Christina Anthony ENTERPRISE INFRASTRUCTURE ARCHITECT.TOOL 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 Work Phone: [facility] 06-18-2024 13:04-0500 Systolic blood pressure 120 mm[Hg] Christina Anthony ENTERPRISE INFRASTRUCTURE ARCHITECT.TOOL 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 Work Phone: [facility] 05-26-2024 13:22-0500 Body mass index (BMI) [Ratio] 42.27 kg/m2 Yan Montaño MD Work Phone: [facility] 05-26-2024 13:22-0500 Body temperature 99.19 [degF] Yan Montaño MD Work Phone: [facility] 05-26-2024 13:22-0500 Body weight 111.77 kg Yan Montaño MD Work Phone: [facility] 05-26-2024 13:22-0500 Diastolic blood pressure 91 mm[Hg] Yan Montaño MD Work Phone: [facility] 05-26-2024 13:22-0500 Heart rate 93 /min Yan Montaño MD Work Phone: [facility] 05-26-2024 13:22-0500 SaO2% (BldA) [Mass fraction] 93 % Yan Montaño MD Work Phone: [facility] 05-26-2024 13:22-0500 Systolic blood pressure 160 mm[Hg] Yan Montaño MD Work Phone: [facility] 04-30-2024 11:14-0500 Body mass index (BMI) [Ratio] 42.17 kg/m2 Christina Anthony ENTERPRISE IN[employer]RASTRU[employer]URE ARCHITECT.TOOL 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 Work Phone: [facility] 04-30-2024 11:14-0500 Body weight 111.49 kg Christina Anthony ENTERPRISE INFRASTRUCTURE ARCHITECT.TOOL 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 Work Phone: [facility] 04-30-2024 11:14-0500 Diastolic blood pressure 78 mm[Hg] Christina Anthony ENTERPRISE INFRASTRUCTURE ARCHITECT.TOOL 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 Work Phone: [facility] 04-30-2024 11:14-0500 Heart rate 93 /min Christina Anthony ENTERPRISE INFRASTRUCTURE ARCHITECT.TOOL 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 Work Phone: [facility] 04-30-2024 11:14-0500 Respiratory rate 16 /min Christina Anthony ENTERPRISE INFRASTRUCTURE ARCHITECT.TOOL 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 Work Phone: [facility] 04-30-2024 11:14-0500 SaO2% (BldA) [Mass fraction] 94 % Christina Anthony ENTERPRISE INFRASTRUCTURE ARCHITECT.TOOL 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 Work Phone: [facility] 04-30-2024 11:14-0500 Systolic blood pressure 124 mm[Hg] Christina Anthony ENTERPRISE INFRASTRUCTURE ARCHITECT.TOOL 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 Work Phone: [facility] 04-26-2024 10:23-0500 Body mass index (BMI) [Ratio] 41.75 kg/m2 Martín Winslow MD Work Phone: [facility] 04-26-2024 10:23-0500 Body weight 110.4 kg Martín Winslow MD Work Phone: [facility] 04-26-2024 10:23-0500 Diastolic blood pressure 78 mm[Hg] Martín Winslow MD Work Phone: [facility] 04-26-2024 10:23-0500 Heart rate 80 /min Martín Winslow MD Work Phone: [facility] 04-26-2024 10:23-0500 Respiratory rate 18 /min Martín Winslow MD Work Phone: [facility] 04-26-2024 10:23-0500 Systolic blood pressure 120 mm[Hg] Martín Winslow MD Work Phone: [facility] 02-25-2024 12:32-0400 Body height 162.6 cm Yan Montaño MD Work Phone: [facility] 02-25-2024 12:32-0400 Body mass index (BMI) [Ratio] 41.17 kg/m2 Yan Montaño MD Work Phone: [facility] 02-25-2024 12:32-0400 Body weight 108.86 kg Yan Montaño MD Work Phone: [facility] 02-25-2024 12:32-0400 Diastolic blood pressure 86 mm[Hg] Yan Montaño MD Work Phone: [facility] 02-25-2024 12:32-0400 Heart rate 78 /min Yan Montaño MD Work Phone: [facility] 02-25-2024 12:32-0400 Respiratory rate 18 /min Yan Montaño MD Work Phone: [facility] 02-25-2024 12:32-0400 SaO2% (BldA) [Mass fraction] 96 % Yan Montaño MD Work Phone: [facility] 02-25-2024 12:32-0400 Systolic blood pressure 130 mm[Hg] Yan Montaño MD Work Phone: [facility] 02-25-2024 11:40-0400 Body height 162.6 cm Pulm Wstr Work Phone: [facility] 02-25-2024 11:40-0400 Body mass index (BMI) [Ratio] 41.18 kg/m2 Pulm Wstr Work Phone: [facility] 02-25-2024 11:40-0400 Body weight 108.86 kg Pulm Wstr Work Phone: [facility] 01-23-2024 16:47-0400 Body mass index (BMI) [Ratio] 40.32 kg/m2 Gray Quintana DO Work Phone: [facility] 01-23-2024 16:47-0400 Body temperature 98.8 [degF] Gray Quintana DO Work Phone: [facility] 01-23-2024 16:47-0400 Body weight 109.77 kg Gray Quintana DO Work Phone: [facility] 01-23-2024 16:47-0400 Diastolic blood pressure 70 mm[Hg] Gray Quintana DO Work Phone: [facility] 01-23-2024 16:47-0400 Heart rate 80 /min Gray Uqintana DO Work Phone: [facility] 01-23-2024 16:47-0400 Respiratory rate 28 /min Gray Quintana DO Work Phone: [facility] 01-23-2024 16:47-0400 Systolic blood pressure 124 mm[Hg] Gray Quintana DO Work Phone: [facility] 12-03-2023 15:16-0400 Diastolic blood pressure 78 mm[Hg] Carolyn Haagen ENTERPRISE INFRASTRUCTURE ARCHITECT.TOOL 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 Work Phone: [facility] 12-03-2023 15:16-0400 Heart rate 90 /min Carolyn Haagen ENTERPRISE INFRASTRUCTURE ARCHITECT.TOOL 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 Work Phone: [facility] 12-03-2023 15:16-0400 Respiratory rate 16 /min Carolyn Haagen ENTERPRISE INFRASTRUCTURE ARCHITECT.TOOL 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 Work Phone: [facility] 12-03-2023 15:16-0400 SaO2% (BldA) [Mass fraction] 94 % Carolyn Haagen ENTERPRISE INFRASTRUCTURE ARCHITECT.TOOL 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 Work Phone: [facility] 12-03-2023 15:16-0400 Systolic blood pressure 110 mm[Hg] Carolyn Haagen ENTERPRISE INFRASTRUCTURE ARCHITECT.TOOL 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 Work Phone: [facility] 11-28-2023 15:23-0400 Diastolic blood pressure 70 mm[Hg] Carolyn Haagen ENTERPRISE INFRASTRUCTURE ARCHITECT.TOOL 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 Work Phone: [facility] 11-28-2023 15:23-0400 Heart rate 91 /min Carolyn Haagen ENTERPRISE INFRASTRUCTURE ARCHITECT.TOOL 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 Work Phone: [facility] 11-28-2023 15:23-0400 Respiratory rate 16 /min Carolyn Haagen ENTERPRISE INFRASTRUCTURE ARCHITECT.TOOL 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 Work Phone: [facility] 11-28-2023 15:23-0400 SaO2% (BldA) [Mass fraction] 94 % Carolyn Haagen ENTERPRISE INFRASTRUCTURE ARCHITECT.TOOL 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 Work Phone: [facility] 11-28-2023 15:23-0400 Systolic blood pressure 112 mm[Hg] Carolyn Haagen ENTERPRISE INFRASTRUCTURE ARCHITECT.TOOL 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 Work Phone: [facility] 10-17-2023 10:33-0400 Body mass index (BMI) [Ratio] 39.99 kg/m2 Gray Quintana DO Work Phone: [facility] 10-17-2023 10:33-0400 Body temperature 97 [degF] Gray Quintana DO Work Phone: [facility] 10-17-2023 10:33-0400 Body weight 108.86 kg Gray Quintana DO Work Phone: [facility] 10-17-2023 10:33-0400 Diastolic blood pressure 70 mm[Hg] Gray Quintana DO Work Phone: [facility] 10-17-2023 10:33-0400 Heart rate 80 /min Gray Quintana DO Work Phone: [facility] 10-17-2023 10:33-0400 Respiratory rate 20 /min Gray Quintana DO Work Phone: [facility] 10-17-2023 10:33-0400 Systolic blood pressure 120 mm[Hg] Gray Quintana DO Work Phone: [facility] 10-12-2023 11:31-0400 Body mass index (BMI) [Ratio] 40.35 kg/m2 Amelia Dania ENTERPRISE INFRASTRUCTURE ARCHITECT.TOOL 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 Work Phone: [facility] 10-12-2023 11:31-0400 Body weight 109.86 kg Amelia Dania ENTERPRISE INFRASTRUCTURE ARCHITECT.TOOL 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 Work Phone: [facility] 10-12-2023 11:31-0400 Diastolic blood pressure 86 mm[Hg] Amelia Dania ENTERPRISE INFRASTRUCTURE ARCHITECT.TOOL 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 Work Phone: [facility] 10-12-2023 11:31-0400 Heart rate 86 /min Amelia Dania ENTERPRISE INFRASTRUCTURE ARCHITECT.TOOL 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 Work Phone: [facility] 10-12-2023 11:31-0400 Respiratory rate 20 /min Amelia Dania ENTERPRISE INFRASTRUCTURE ARCHITECT.TOOL 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 Work Phone: [facility] 10-12-2023 11:31-0400 SaO2% (BldA) [Mass fraction] 96 % Amelia Dania ENTERPRISE INFRASTRUCTURE ARCHITECT.TOOL 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 Work Phone: [facility] 10-12-2023 11:31-0400 Systolic blood pressure 122 mm[Hg] Amelia Dania ENTERPRISE INFRASTRUCTURE ARCHITECT.TOOL 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 Work Phone: [facility] 09-10-2023 12:26-0400 Body weight 110.04 kg Amelia Dania ENTERPRISE INFRASTRUCTURE ARCHITECT.TOOL 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 Work Phone: [facility] 09-10-2023 12:26-0400 Diastolic blood pressure 82 mm[Hg] Amelia Dania ENTERPRISE INFRASTRUCTURE ARCHITECT.TOOL 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 Work Phone: [facility] 09-10-2023 12:26-0400 Heart rate 88 /min Amelia Dania ENTERPRISE INFRASTRUCTURE ARCHITECT.TOOL 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 Work Phone: [facility] 09-10-2023 12:26-0400 Respiratory rate 16 /min Amelia Dania ENTERPRISE INFRASTRUCTURE ARCHITECT.TOOL 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 Work Phone: [facility] 09-10-2023 12:26-0400 SaO2% (BldA) [Mass fraction] 95 % Amelia Dania ENTERPRISE INFRASTRUCTURE ARCHITECT.TOOL 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 Work Phone: [facility] 09-10-2023 12:26-0400 Systolic blood pressure 118 mm[Hg] Amelia Dania ENTERPRISE INFRASTRUCTURE ARCHITECT.TOOL 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 Work Phone: [facility] 09-06-2023 11:25-0400 Body weight 109.14 kg Amelia Dania ENTERPRISE INFRASTRUCTURE ARCHITECT.TOOL 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 Work Phone: [facility] 09-06-2023 11:25-0400 Diastolic blood pressure 72 mm[Hg] Amelia Dania ENTERPRISE INFRASTRUCTURE ARCHITECT.TOOL 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 Work Phone: [facility] 09-06-2023 11:25-0400 Heart rate 82 /min Amelia Dania ENTERPRISE INFRASTRUCTURE ARCHITECT.TOOL 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 Work Phone: [facility] 09-06-2023 11:25-0400 Respiratory rate 20 /min Amelia Dania ENTERPRISE INFRASTRUCTURE ARCHITECT.TOOL 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 Work Phone: [facility] 09-06-2023 11:25-0400 SaO2% (BldA) [Mass fraction] 95 % Amelia Dania ENTERPRISE INFRASTRUCTURE ARCHITECT.TOOL 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 Work Phone: [facility] 09-06-2023 11:25-0400 Systolic blood pressure 108 mm[Hg] Amelia Dania ENTERPRISE INFRASTRUCTURE ARCHITECT.TOOL 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 Work Phone: [facility] 08-07-2023 11:11-0400 Body weight 109.05 kg Amelia Dania ENTERPRISE INFRASTRUCTURE ARCHITECT.TOOL 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 Work Phone: [facility] 08-07-2023 11:11-0400 Diastolic blood pressure 84 mm[Hg] Amelia Dania ENTERPRISE INFRASTRUCTURE ARCHITECT.TOOL 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 Work Phone: [facility] 08-07-2023 11:11-0400 Heart rate 77 /min Amelia Dania ENTERPRISE INFRASTRUCTURE ARCHITECT.TOOL 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 Work Phone: [facility] 08-07-2023 11:11-0400 Respiratory rate 16 /min Amelia Dania ENTERPRISE INFRASTRUCTURE ARCHITECT.TOOL 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 Work Phone: [facility] 08-07-2023 11:11-0400 SaO2% (BldA) [Mass fraction] 100 % Amelia Dania ENTERPRISE INFRASTRUCTURE ARCHITECT.TOOL 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 Work Phone: [facility] 08-07-2023 11:11-0400 Systolic blood pressure 126 mm[Hg] Amelia Dania ENTERPRISE INFRASTRUCTURE ARCHITECT.TOOL 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 Work Phone: [facility] 07-09-2023 13:14-0500 Body temperature 97.7 [degF] Gray Quintana DO Work Phone: [facility] 07-09-2023 13:14-0500 Body weight 109.77 kg Gray Quintana DO Work Phone: [facility] 07-09-2023 13:14-0500 Diastolic blood pressure 70 mm[Hg] Gray Quintana DO Work Phone: [facility] 07-09-2023 13:14-0500 Heart rate 64 /min Gray Quintana DO Work Phone: [facility] 07-09-2023 13:14-0500 Respiratory rate 20 /min Gray Quintana DO Work Phone: [facility] 07-09-2023 13:14-0500 Systolic blood pressure 110 mm[Hg] Gray Quintana DO Work Phone: [facility] 04-23-2023 13:51-0500 Body height 165 cm Lanie Love SARIKA [facility] 04-23-2023 13:51-0500 Body weight 101.29 kg Lanie Love SARIKA [facility] 04-06-2023 11:48-0500 Body temperature 97.7 [degF] Gray Quintana DO Work Phone: [facility] 04-06-2023 11:48-0500 Body weight 104.78 kg Gray Quintana DO Work Phone: [facility] 04-06-2023 11:48-0500 Diastolic blood pressure 64 mm[Hg] Gray Quintana DO Work Phone: [facility] 04-06-2023 11:48-0500 Heart rate 80 /min Gray Quintana DO Work Phone: [facility] 04-06-2023 11:48-0500 Respiratory rate 16 /min Gray Quintana DO Work Phone: [facility] 04-06-2023 11:48-0500 Systolic blood pressure 110 mm[Hg] Gray Quintana DO Work Phone: [facility] 03-23-2023 11:53-0400 Heart rate 80 /min [facility] 03-23-2023 11:53-0400 Respiratory rate 16 /min [facility] 03-23-2023 11:22-0400 Body temperature 98.3 [degF] [facility] 03-23-2023 11:22-0400 Diastolic blood pressure 80 mm[Hg] [facility] 03-23-2023 11:22-0400 SaO2% (BldA) [Mass fraction] 99 % [facility] 03-23-2023 11:22-0400 Systolic blood pressure 138 mm[Hg] [facility] 03-23-2023 11:00-0400 Body height 162.56 cm [facility] 03-23-2023 11:00-0400 Body mass index (BMI) [Ratio] 39.6 kg/m2 [facility] 03-23-2023 11:00-0400 Body weight 104.77 kg [facility] 03-12-2023 14:31-0400 Body height [address] [facility] 03-12-2023 14:31-0400 Body weight 105.46 kg Lanie Love SARIKA [facility] 01-22-2023 12:18-0400 Body height 165 cm Lanie Love [facility] 01-22-2023 12:18-0400 Body weight 104.55 kg Lanie Love SARIKA [facility] 01-16-2023 14:08-0400 Body weight 106.14 kg Carolyn Haagen ENTERPRISE INFRASTRUCTURE ARCHITECT.TOOL 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 Work Phone: [facility] 01-16-2023 14:08-0400 Diastolic blood pressure 74 mm[Hg] Carolyn Haagen ENTERPRISE INFRASTRUCTURE ARCHITECT.TOOL 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 Work Phone: [facility] 01-16-2023 14:08-0400 Heart rate 80 /min Carolyn Haagen ENTERPRISE INFRASTRUCTURE ARCHITECT.TOOL 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 Work Phone: [facility] 01-16-2023 14:08-0400 Respiratory rate 16 /min Carolyn Haagen ENTERPRISE INFRASTRUCTURE ARCHITECT.TOOL 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 Work Phone: [facility] 01-16-2023 14:08-0400 SaO2% (BldA) [Mass fraction] 95 % Carolyn Hadread ENTERPRISE INFRASTRUCTURE ARCHITECT.TOOL 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 Work Phone: [facility] 01-16-2023 14:08-0400 Systolic blood pressure 120 mm[Hg] Carolyn Haagen ENTERPRISE INFRASTRUCTURE ARCHITECT.TOOL 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 Work Phone: [facility] 12-27-2022 13:54-0400 Body weight 106.14 kg Christina Anthony ENTERPRISE INFRASTRUCTURE ARCHITECT.TOOL 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 Work Phone: [facility] 12-27-2022 13:54-0400 Diastolic blood pressure 72 mm[Hg] Christina Anthony ENTERPRISE INFRASTRUCTURE ARCHITECT.TOOL 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 Work Phone: [facility] 12-27-2022 13:54-0400 Heart rate 80 /min Christina Anthony ENTERPRISE INFRASTRUCTURE ARCHITECT.TOOL 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 Work Phone: [facility] 12-27-2022 13:54-0400 Respiratory rate 16 /min Christina Anthony ENTERPRISE INFRASTRUCTURE ARCHITECT.TOOL 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 Work Phone: [facility] 12-27-2022 13:54-0400 Systolic blood pressure 118 mm[Hg] Christina Anthony ENTERPRISE INFRASTRUCTURE ARCHITECT.TOOL 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 Work Phone: [facility] 11-14-2022 13:17-0400 Body weight 105.51 kg Andres Srinivasan MD Work Phone: [facility] 11-14-2022 13:17-0400 Diastolic blood pressure 82 mm[Hg] Andres Srinivasan MD Work Phone: [facility] 11-14-2022 13:17-0400 Heart rate 79 /min Andres Srinivasan MD Work Phone: [facility] 11-14-2022 13:17-0400 Respiratory rate 18 /min Andres Srinivasan MD Work Phone: [facility] 11-14-2022 13:17-0400 SaO2% (BldA) [Mass fraction] 97 % Andres Srinivasan MD Work Phone: [facility] 11-14-2022 13:17-0400 Systolic blood pressure 126 mm[Hg] Andres Srinivasan MD Work Phone: [facility] 08-23-2022 10:27-0400 Body temperature 98.1 [degF] Gray Quintana DO Work Phone: [facility] 08-23-2022 10:27-0400 Body weight 106.14 kg Gray Quintana DO Work Phone: [facility] 08-23-2022 10:27-0400 Diastolic blood pressure 80 mm[Hg] Gray Quintana DO Work Phone: [facility] 08-23-2022 10:27-0400 Heart rate 80 /min Gray Quintana DO Work Phone: [facility] 08-23-2022 10:27-0400 Respiratory rate 20 /min Gray Quintana DO Work Phone: [facility] 08-23-2022 10:27-0400 Systolic blood pressure 124 mm[Hg] Gray Quintana DO Work Phone: [facility] 07-17-2022 09:42-0500 Body height 162.56 cm ORDER ANALYST-C Jackie Haider ORDER ANALYST Work Phone: [facility] 07-17-2022 09:42-0500 Body mass index (BMI) [Ratio] 40.1 kg/m2 ORDER ANALYST-C Jackie Haider ORDER ANALYST Work Phone: [facility] 07-17-2022 09:42-0500 Body temperature 97.3 [degF] ORDER ANALYST-C Jackie Haider ORDER ANALYST Work Phone: [facility] 07-17-2022 09:42-0500 Body weight 106.14 kg ORDER ANALYST-C Jackie Haider ORDER ANALYST Work Phone: [facility] 07-17-2022 09:42-0500 Diastolic blood pressure 86 mm[Hg] ORDER ANALYST-C Jackie Haider ORDER ANALYST Work Phone: [facility] 07-17-2022 09:42-0500 Heart rate 82 /min ORDER ANALYST-C Jackie Haider ORDER ANALYST Work Phone: [facility] 07-17-2022 09:42-0500 Respiratory rate 18 /min ORDER ANALYST-C Jackie Haider ORDER ANALYST Work Phone: [facility] 07-17-2022 09:42-0500 SaO2% (BldA) [Mass fraction] 97 % ORDER ANALYST-C Jackie Haider ORDER ANALYST Work Phone: [facility] 07-17-2022 09:42-0500 Systolic blood pressure 146 mm[Hg] ORDER ANALYST-C Jackie Haider ORDER ANALYST Work Phone: [facility] 07-03-2022 11:13-0500 Body height 165 cm Christina Anthony APRN.TOOL 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 Work Phone: [facility] 07-03-2022 11:13-0500 Body weight 105.96 kg Christina Anthony ENTERPRISE INFRASTRUCTURE ARCHITECT.TOOL 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 Work Phone: [facility] 07-03-2022 11:13-0500 Diastolic blood pressure 80 mm[Hg] Christina Anthony ENTERPRISE INFRASTRUCTURE ARCHITECT.TOOL 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 Work Phone: [facility] 07-03-2022 11:13-0500 Heart rate 77 /min Christina Anthony ENTERPRISE INFRASTRUCTURE ARCHITECT.TOOL 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 Work Phone: [facility] 07-03-2022 11:13-0500 Respiratory rate 14 /min Christina Anthony ENTERPRISE INFRASTRUCTURE ARCHITECT.TOOL 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 Work Phone: [facility] 07-03-2022 11:13-0500 SaO2% (BldA) [Mass fraction] 94 % Christina Anthony ENTERPRISE INFRASTRUCTURE ARCHITECT.TOOL 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 Work Phone: [facility] 07-03-2022 11:13-0500 Systolic blood pressure 140 mm[Hg] Christina Anthony ENTERPRISE INFRASTRUCTURE ARCHITECT.TOOL 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 Work Phone: [facility] 06-13-2022 11:01-0500 Body mass index (BMI) [Ratio] 39.8 kg/m2 ORDER ANALYST-C Jackie Haider ORDER ANALYST Work Phone: [facility] 06-13-2022 11:01-0500 Body temperature 95.7 [degF] ORDER ANALYST-C Jackie Haider ORDER ANALYST Work Phone: [facility] 06-13-2022 11:01-0500 Body weight 105.29 kg ORDER ANALYST-C Jackie Haider ORDER ANALYST Work Phone: [facility] 06-13-2022 11:01-0500 Diastolic blood pressure 84 mm[Hg] ORDER ANALYST-C Jackie Haider ORDER ANALYST Work Phone: [facility] 06-13-2022 11:01-0500 Heart rate 85 /min ORDER ANALYST-C Jackie Haider ORDER ANALYST Work Phone: [facility] 06-13-2022 11:01-0500 Respiratory rate 20 /min ORDER ANALYST-C Jackie Haider ORDER ANALYST Work Phone: [facility] 06-13-2022 11:01-0500 SaO2% (BldA) [Mass fraction] 95 % ORDER ANALYST-C Jackie Haider ORDER ANALYST Work Phone: [facility] 06-13-2022 11:01-0500 Systolic blood pressure 136 mm[Hg] ORDER ANALYST-C Jackie Haider ORDER ANALYST Work Phone: [facility] 01-02-2022 07:15-0400 Body height 162.56 cm ORDER ANALYST-C Jackie Haider ORDER ANALYST Work Phone: [facility] Work Phone: 01-02-2022 07:15-0400 Body mass index (BMI) [Ratio] 37 kg/m2 ORDER ANALYST-C Jackie Haider ORDER ANALYST Work Phone: [facility] Work Phone: 01-02-2022 07:15-0400 Body temperature 98.6 [degF] ORDER ANALYST-C Jackie Haider ORDER ANALYST Work Phone: [facility] Work Phone: 01-02-2022 07:15-0400 Body weight 97.97 kg ORDER ANALYST-C Jackie Haider ORDER ANALYST Work Phone: [facility] Work Phone: 01-02-2022 07:15-0400 Diastolic blood pressure 80 mm[Hg] ORDER ANALYST-C Jackie Haider ORDER ANALYST Work Phone: [facility] Work Phone: 01-02-2022 07:15-0400 Heart rate 70 /min ORDER ANALYST-C Jackie Haider ORDER ANALYST Work Phone: [facility] Work Phone: 01-02-2022 07:15-0400 Respiratory rate 17 /min ORDER ANALYST-C Jackie Haider ORDER ANALYST Work Phone: [facility] Work Phone: 01-02-2022 07:15-0400 SaO2% (BldA) [Mass fraction] 95 % ORDER ANALYST-C Jackie Haider ORDER ANALYST Work Phone: [facility] Work Phone: 01-02-2022 07:15-0400 Systolic blood pressure 136 mm[Hg] ORDER ANALYST-C Jackie Haider ORDER ANALYST Work Phone: [facility] Work Phone: 12-15-2021 06:30-0400 Body height 162.56 cm ORDER ANALYST-C Jackie Haider ORDER ANALYST Work Phone: [facility] Work Phone: 12-15-2021 06:30-0400 Body mass index (BMI) [Ratio] 37.2 kg/m2 ORDER ANALYST-C Jackie Haider ORDER ANALYST Work Phone: [facility] Work Phone: 12-15-2021 06:30-0400 Body temperature 97.8 [degF] ORDER ANALYST-C Jackie Haider ORDER ANALYST Work Phone: [facility] Work Phone: 12-15-2021 06:30-0400 Body weight 98.42 kg ORDER ANALYST-C Jackie Haider ORDER ANALYST Work Phone: [facility] Work Phone: 12-15-2021 06:30-0400 Diastolic blood pressure 79 mm[Hg] ORDER ANALYST-C Jackie Haider ORDER ANALYST Work Phone: [facility] Work Phone: 12-15-2021 06:30-0400 Heart rate 72 /min ORDER ANALYST-C Jackie Haider ORDER ANALYST Work Phone: [facility] Work Phone: 12-15-2021 06:30-0400 Respiratory rate 17 /min ORDER ANALYST-C Jackie Haider ORDER ANALYST Work Phone: [facility] Work Phone: 12-15-2021 06:30-0400 SaO2% (BldA) [Mass fraction] 96 % ORDER ANALYST-C Jackie Haider ORDER ANALYST Work Phone: [facility] Work Phone: 12-15-2021 06:30-0400 Systolic blood pressure 116 mm[Hg] ORDER ANALYST-C Jackie Haider ORDER ANALYST Work Phone: [facility] Work Phone: 06-14-2021 07:45-0500 Body height 162.56 cm ORDER ANALYST-C Jackie Haider ORDER ANALYST Work Phone: [facility] Work Phone: 06-14-2021 07:45-0500 Body mass index (BMI) [Ratio] 39.1 kg/m2 ORDER ANALYST-C Jackie Haider ORDER ANALYST Work Phone: [facility] Work Phone: 06-14-2021 07:45-0500 Body temperature 95 [degF] ORDER ANALYST-C Jackie Haider ORDER ANALYST Work Phone: [facility] Work Phone: 06-14-2021 07:45-0500 Body weight 103.41 kg ORDER ANALYST-C Jackie Haider ORDER ANALYST Work Phone: [facility] Work Phone: 06-14-2021 07:45-0500 Diastolic blood pressure 76 mm[Hg] ORDER ANALYST-C Jackie Haider ORDER ANALYST Work Phone: [facility] Work Phone: 06-14-2021 07:45-0500 Heart rate 85 /min ORDER ANALYST-C Jackie Haider ORDER ANALYST Work Phone: [facility] Work Phone: 06-14-2021 07:45-0500 Respiratory rate 18 /min ORDER ANALYST-C Jackie Haider ORDER ANALYST Work Phone: [facility] Work Phone: 06-14-2021 07:45-0500 SaO2% (BldA) [Mass fraction] 99 % ORDER ANALYST-C Jackie Haider ORDER ANALYST Work Phone: [facility] Work Phone: 06-14-2021 07:45-0500 Systolic blood pressure 120 mm[Hg] ORDER ANALYST-C Jackie Haider ORDER ANALYST Work Phone: [facility] Work Phone: Encounters Encounter Date Encounter Type Care Provider Facility Start: 01-15-2025 End: 01-15-2025 Refill Gray Quintana DO Work Phone: [facility] Comment on above: Opened In Error Population Health Na vigation Outreach ([facility] Start: 01-15-2025 End: 01-15-2025 Emergency department patient visit Dr. Gray Quintana DO Work Phone: -Emergency Department Work Phone: Start: 01-14-2025 End: 01-14-2025 Follow-up encounter Madison Turner APRN.TOOL 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 Work Phone: [facility] Comment on above: Results Start: 01-13-2025 End: 01-13-2025 ambulatory JASON FRANCOIS Facility:[facility] Comment on above: Neck pain (Primary D x) Start: 01-12-2025 End: 01-12-2025 Patient encounter procedure Madison Turner APRN.TOOL 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 Work Phone: [facility] Comment on above: UTI symptoms (Primar y Dx) Start: 01-12-2025 End: 01-12-2025 ambulatory Nurse Intm/Famp Triage [facility] Work Phone: Nurse Phone Triage Comment on above: urination symptoms Start: 01-06-2025 End: 01-06-2025 ambulatory Marilou Everett LITHOGRAPH PRINTER Work Phone: [facility] Physical Therapy Comment on above: Neck pain (Primary D x) Start: 12-30-2024 End: 01-05-2025 Follow-up encounter Yarely Tijerina APRN.TOOL 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 Work Phone: [facility] Start: 12-29-2024 End: 12-29-2024 Patient encounter procedure Merari Barker MA [facility] Comment on above: Population Health Na vigation Outreach ( [facility] Start: 12-29-2024 End: 12-29-2024 Telephone encounter Merari Barker MA [facility] Comment on above: Patient Update; Resc hedule Injection Procedure Start: 12-29-2024 End: 12-29-2024 Office outpatient visit 15 minutes Yarely Tijerina APRN.CNP Work Phone: [facility] Comment on above: Dysuria (Primary Dx) ; Screening for depression; Encounter for screening examination for other mental health and behavioral disorders Start: 12-29-2024 End: 12-29-2024 ambulatory [facility] Start: 12-23-2024 End: 12-23-2024 [facility] Comment on above: Neck pain (Primary D x) Start: 12-16-2024 End: 12-16-2024 Follow-up encounter Vanessa Sanchez PA-C Work Phone: [facility] Start: 12-15-2024 End: 12-15-2024 Orders Only Cherelle Mo MD Work Phone: Pain Management Comment on above: History of lumbar la minectomy for spinal cord decompression (Primary Dx); Osteoarthritis of spine with radiculopathy, lumbar region; Radiculopathy of lumbar region Start: 12-11-2024 End: 12-18-2024 Telephone encounter Bri Moeller MD Work Phone: General Surgery Comment on above: Results Start: 12-08-2024 End: 12-09-2024 Telephone encounter Gray Quintana DO Work Phone: [facility] Comment on above: Patient Request Start: 12-04-2024 ambulatory JASON Estrada y:[facility] Start: 12-04-2024 End: 12-04-2024 Subsequent hospital visit by physician Pedro Pablo [facility] Rodriguez Work Phone: Radiology Comment on above: Neck pain [M54.2] Start: 12-04-2024 ambulatory JASON Estrada y:[facility] Start: 12-04-2024 End: 12-04-2024 Patient encounter procedure Jason Francois APRN.TOOL 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 Work Phone: [facility] Comment on above: Left elbow pain (Etelvina stephen Dx); Neck pain; Mid back pain; Hypertension, essential Start: 12-04-2024 End: 12-04-2024 ambulatory JASON FRANCOIS Facility:[facility] Start: 12-03-2024 End: 12-03-2024 ambulatory Gray Quintana DO Work Phone: [facility] Comment on above: Neck Pain Start: 11-26-2024 End: 11-26-2024 Orders Only Cherelle Mo MD Work Phone: Pain Management Comment on above: Radiculopathy of lum bar region (Primary Dx); History of lumbar laminectomy for spinal cord decompression Start: 11-25-2024 End: 11-25-2024 ambulatory Merari Barker MA [facility] Start: 11-25-2024 End: 11-25-2024 Patient encounter procedure Merari Barker MA [facility] Comment on above: Population Health Na vigation Outreach ([facility] ) Start: 11-25-2024 End: 11-25-2024 Telephone encounter Cherelle Mo MD Work Phone: Pain Management Comment on above: Results (Lumbar MRI) Start: 11-20-2024 ambulatory CHERELLE MO Facility:[facility] Start: 11-20-2024 End: 11-20-2024 Subsequent hospital visit by physician Mri Radio [facility] (I-Stat/1.5t) Work Phone: Radiology Comment on above: Radiculopathy of lum bar region [M54.16] Start: 11-18-2024 End: 11-18-2024 Office outpatient visit 15 minutes Dominick Hernandez APRN.TOOL 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 Work Phone: Pulmonary Medicine Comment on above: Asthma-COPD overlap syndrome (HCC) (Primary Dx); Nocturnal hypoxemia; Morbid obesity (HCC) Start: 11-18-2024 End: 11-18-2024 Patient encounter [facility] Work Phone[facility] Start: 11-18-2024 End: 11-18-2024 ambulatory [facility] Work Phone: [facility] Comment on above: Spirometry Start: 11-11-2024 ambulatory BRI Cary ity:[facility] Start: 11-11-2024 End: 11-11-2024 Subsequent hospital visit by physician Mri Radio [facility] (I-Stat/1.5t) Work Phone: Radiology Comment on above: Calculus of gallblad kayleigh without cholecystitis without obstruction [K80.20] Start: 11-05-2024 End: 11-05-2024 Patient encounter procedure Cherelle Mo MD Work Phone: Pain Management Comment on above: Radiculopathy of lum bar region (Primary Dx); Osteoarthritis of spine with radiculopathy, lumbar region; History of lumbar laminectomy for spinal cord decompression; Other idiopathic scoliosis, lumbar region Start: 11-05-2024 End: 11-05-2024 ambulatory CHERELLE MO Facility:[facility] Start: 10-30-2024 End: 10-30-2024 Patient encounter procedure Bri Moeller MD Work Phone: General Surgery Comment on above: Calculus of gallblad kayleigh without cholecystitis without obstruction; Nausea; Ulcerative colitis without complications, unspecified location (HCC); Pulmonary emphysema, unspecified emphysema type (HCC); Spinal stenosis of lumbar region, unspecified whether neurogenic claudication present; Essential (primary) hypertension; Family history of malignant neoplasm of colon; Encounter for screening for malignant neoplasm of colon Start: 10-30-2024 End: 10-30-2024 ambulatory BRI MOELLER Facility:[facility] Start: 10-23-2024 End: 10-24-2024 Follow-up encounter Ariela Brown APRN.CNP Work Phone: [facility] Start: 10-23-2024 ambulatory GRAY Cary ity:[facility] Start: 10-23-2024 End: 10-23-2024 Subsequent hospital visit by physician [facility] Work Phone: Nuclear Medicine Comment on above: Calculus of gallblad kayleigh without cholecystitis without obstruction [K80.20] Start: 10-22-2024 End: 10-22-2024 ambulatory Priscilla Flynn RN NURSE BUSINESS TECHNOLOGY ANALYST Start: 10-22-2024 End: 10-22-2024 Patient encounter procedure Priscilla Flynn RN NURSE BUSINESS TECHNOLOGY ANALYST Comment on above: Clinical Update Start: 10-08-2024 End: 10-09-2024 Follow-up encounter Gray Estella StroudQuintana DO Work Phone: [facility] Comment on above: xray and ultrasound results Start: 10-08-2024 End: 10-09-2024 Telephone encounter Gray Quintana DO Work Phone: [facility] Comment on above: Results Start: 10-06-2024 ambulatory GRAY Soria QUINTANA Facil ity:[facility] Start: 10-06-2024 End: 10-06-2024 Subsequent hospital visit by physician [facility] [employer] 1 Work Phone: Radiology Comment on above: Abdominal distension [R14.0] Start: 10-03-2024 End: 10-03-2024 ambulatory GRAY QUINTANA Facility:[facility] Start: 10-03-2024 End: 10-03-2024 Subsequent hospital visit by physician Pedro Pablo [facility] [place] Work Phone: Radiology Comment on above: Chronic midline low back pain with bilateral sciatica [M54.41, M54.42, G89.29] Start: 10-03-2024 End: 10-03-2024 Patient encounter procedure Gray Garciaon DO Work Phone: [facility] Comment on above: Abdominal distension (Primary Dx); Chronic midline low back pain with bilateral sciatica; Spinal stenosis of lumbar region without neurogenic claudication; Bilateral leg edema; LUQ abdominal pain; Hypertension, essential; IFG (impaired fasting glucose) Start: 10-03-2024 End: 10-03-2024 ambulatory GRAY Estlela QUINTANA Facility:[facility] Start: 09-23-2024 End: 09-23-2024 Patient encounter procedure Williams Fendrikova Mahlay MD Work Phone: Vascular Medicine Comment on above: Personal history of DVT (deep vein thrombosis) (Primary Dx); Venous (peripheral) insufficiency; BMI 40.0-44.9, adult (HCC); Ulcerative colitis with complication, unspecified location (HCC) Start: 09-23-2024 End: 09-23-2024 ambulatory GRAY QUINTANA Facility:[facility] Start: 09-11-2024 End: 11-11-2024 Follow-up encounter Amelia Trotter APRN.CNP Work Phone: [facility] Comment on above: Results Medication Problem Start: 09-11-2024 End: 09-11-2024 ambulatory CHRISTINA ANTHONY Facility:[facility] Start: 09-11-2024 End: 09-11-2024 Office outpatient visit 15 minutes Amelia Trotter APRN.CNP Work Phone: [facility] [place] Comment on above: Increased urinary fr equency (Primary Dx); Foul smelling urine Start: 09-11-2024 End: 09-11-2024 ambulatory AMELIA TROTTER Facility:[facility] Start: 08-15-2024 End: 08-15-2024 Telephone encounter Gray Quintana DO Work Phone: [facility] [place] Comment on above: Patient Question Start: 08-05-2024 End: 08-05-2024 Anticoagulant drug monitoring [facility] Work Phone: [facility] Comment on above: Personal history of DVT (deep vein thrombosis) (Primary Dx) Start: 08-05-2024 End: 08-05-2024 ambulatory GRAY QUINTANA Facility:[facility] Start: 07-28-2024 ambulatory CHRISTINA Estrada :[facility] Start: 07-28-2024 End: 07-28-2024 Subsequent hospital visit by physician [facility] Comment on above: Acute deep vein thro mbosis (DVT) of proximal vein of right lower extremity (HCC) [I82.4Y1] Start: 07-28-2024 End: 07-28-2024 Follow-up encounter Christina Anthony ENTERPRISE INFRASTRUCTURE ARCHITECT.TOOL 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 Work Phone: Family [facility] [place] Start: 07-28-2024 End: 07-28-2024 Telephone encounter Gray Quintana DO Work Phone: [facility] Comment on above: Future Appointment Start: 07-28-2024 End: 07-28-2024 ambulatory CHRISTINA ANTHONY Facility:[facility] Start: 07-28-2024 End: 07-28-2024 Office outpatient visit 15 minutes Christina Anthony ENTERPRISE INFRASTRUCTURE ARCHITECT.TOOL 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 Work Phone: Family [facility] [place] Comment on above: Pain of right lower extremity (Primary Dx); Acute deep vein thrombosis (DVT) of proximal vein of right lower extremity (HCC) Start: 07-25-2024 End: 07-25-2024 Follow-up encounter Christina Anthony ENTERPRISE INFRASTRUCTURE ARCHITECT.TOOL 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 Work Phone: Family [facility] [place] Start: 07-24-2024 End: 07-25-2024 Telephone encounter Gray Quintana DO Work Phone: [facility] Comment on above: Orders (poc protime) Start: 07-24-2024 End: 07-24-2024 Anticoagulant drug monitoring [facility] Work Phone: [facility] Comment on above: Personal history of DVT (deep vein thrombosis) (Primary Dx) Start: 07-24-2024 End: 07-24-2024 ambulatory CHRISTINA ANTHONY Facility:[facility] Start: 07-22-2024 End: 07-26-[address] DOMINIQUE DORSEY MD Facility:[facility] Start: 07-22-2024 End: 07-26-[address] DOMINIQUE DORSEY MD [facility] Start: 07-21-2024 End: 07-21-2024 ambulatory GRAY QUINTANA DO Facility:[facility] Start: 07-21-2024 End: 07-21-[address] DOMINIQUE DORSEY MD [facility] Start: 07-17-2024 End: 07-17-2024 [facility] Start: 07-17-2024 End: 07-17-2024 Patient encounter procedure Merari Barker MA [facility] Comment on above: Population Health Na vigation Outreach ([facility] PCSA) Start: 07-16-2024 End: 07-16-2024 ambulatory CHRISTINA ANTHONY Facility:[facility] Start: 07-16-2024 End: 07-16-2024 Office outpatient visit 25 minutes Christina Anthony ENTERPRISE INFRASTRUCTURE ARCHITECT.TOOL 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 Work Phone: Family [facility] Comment on above: Acute deep vein thro mbosis (DVT) of proximal vein of right lower extremity (HCC) (Primary Dx); Screening for cholesterol level; Hypertension, essential Start: 07-12-2024 End: 07-12-2024 ambulatory Kathleen Caldwell RN NURSE BUSINESS TECHNOLOGY ANALYST Comment on above: Medication Problem Start: 07-12-2024 End: 07-12-2024 Telephone encounter Gray Quintana DO Work Phone: [facility] Comment on above: Medication Problem Start: 07-11-2024 End: 07-11-2024 Refill Christina Anthony ENTERPRISE INFRASTRUCTURE ARCHITECT.TOOL 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 Work Phone: [facility] Comment on above: Med Change Request Start: 07-09-2024 End: 07-10-2024 Follow-up encounter Christina Anthony ENTERPRISE INFRASTRUCTURE ARCHITECT.TOOL 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 Work Phone: Family [facility] Start: 07-09-2024 End: 07-15-2024 Telephone encounter Gray Quintana DO Work Phone: [facility] Comment on above: Patient Request Start: 07-08-2024 End: 07-08-2024 ambulatory CHRISTINA ANTHONY Facility:[facility] Start: 06-26-2024 End: 07-04-2024 Telephone encounter Gray Quintana DO Work Phone: [facility] Comment on above: Patient Update: Lorrie uis Start: 06-25-2024 End: 07-04-2024 Orders Only Christina Anthony APRN.TOOL 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 Work Phone: [facility] Start: 06-23-2024 End: 07-03-2024 Telephone encounter Gray Quintana DO Work Phone: [facility] Comment on above: Patient Question (Bl ood clot follow up questions) Start: 06-18-2024 End: 06-19-2024 Telephone encounter Alexandra Cruz CHIEF INTERNAL AUDITOR Navigation Start: 06-18-2024 End: 06-18-2024 Patient encounter procedure Christina Anthony ENTERPRISE INFRASTRUCTURE ARCHITECT.TOOL 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 Work Phone: [facility] Comment on above: Hospital discharge f ollow-up (Primary Dx); Acute deep vein thrombosis (DVT) of proximal vein of right lower extremity (HCC); Hypertension, essential; IFG (impaired fasting glucose); Poor sleep; NEVA (obstructive sleep apnea); Nasal congestion Start: 06-18-2024 End: 06-18-2024 ambulatory CHRISTINA ANTHONY Facility:[facility] Start: 06-14-2024 End: 06-16-2024 ambulatory Gray Quintana DO Work Phone: [facility] Comment on above: Fatigue Start: 06-12-2024 ambulatory Amador Reyna ty:[facility] Start: 06-11-2024 End: 06-13-2024 ambulatory GRAY QUINTANA Facility:[facility] Start: 06-11-2024 End: 06-11-2024 Patient encounter procedure Mali Adams APRN.TOOL 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 Work Phone: [facility] Comment on above: Chest pressure (Prim romain Dx) Start: 06-11-2024 End: 06-11-2024 Telephone encounter Kenisha ÁLVAREZ Work Phone: Pulmonary Medicine Start: 05-26-2024 End: 05-26-2024 ambulatory YAN MONTAÑO Facility:[facility] Start: 05-26-2024 End: 05-26-2024 Patient encounter procedure Yan Montaño MD Work Phone: Pulmonary Medicine Comment on above: Asthma-COPD overlap syndrome (HCC) (Primary Dx); Nocturnal hypoxemia; Morbid obesity (HCC) Start: 05-16-2024 End: 05-16-2024 Telephone encounter Gray Stroudrison Work Phone: [facility] [place] Comment on above: Patient Update Start: 04-30-2024 End: 04-30-2024 ambulatory CHRISTINA PAULINE SCHNEIDERSON Facility:[facility] Start: 04-30-2024 End: 04-30-2024 Office outpatient visit 25 minutes Christina Pauline Anthony ENTERPRISE INFRASTRUCTURE ARCHITECT.TOOL 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 Work Phone: [facility] [place] Comment on above: Sciatica, right side (Primary Dx); CKD (chronic kidney disease) stage 2, GFR 60-89 ml/min; Heartburn; Pedal edema Start: 04-28-2024 End: 04-29-2024 Telephone encounter Gray Estella Quintana Work Phone: [facility] [place] Comment on above: Patient Request Start: 04-26-2024 End: 04-26-2024 ambulatory Gray Quintana Work Phone: [facility] [place] Comment on above: Back Pain Start: 04-26-2024 End: 04-26-2024 Patient encounter procedure Martín Winslow MD Work Phone: [facility] [place] Comment on above: Sciatica, right side (Primary Dx) Start: 04-04-2024 End: 04-04-2024 Telephone encounter Yan Montaño MD Work Phone: Pulmonary Medicine Comment on above: Patient Update Start: 03-21-2024 End: 03-24-2024 Telephone encounter Yan Montaño MD Work Phone: Pulmonary Medicine Comment on above: Patient Question Start: 03-19-2024 End: 03-19-2024 Telephone encounter Raya Lazo PA-C Work Phone: Pulmonary Medicine Comment on above: Orders Start: 03-14-2024 End: 03-14-2024 Telephone encounter Yan Montaño MD Work Phone: Pulmonary Medicine Start: 03-13-2024 End: 03-17-2024 Telephone encounter Gray Quintana DO Work Phone: [facility] [place] Comment on above: Results Start: 03-11-2024 End: 03-11-2024 Telephone encounter Gray Stroudrison DO Work Phone: [facility] [place] Start: 03-07-2024 End: 03-07-2024 ambulatory GRAY L QUINTANA Facility:[facility] Start: 03-07-2024 End: 03-07-2024 ambulatory GRAY L QUINTANA Facility:[facility] Start: 03-07-2024 End: 03-07-2024 Subsequent hospital visit by physician Bone Density [facility] Work Phone: Radiology Comment on above: Asymptomatic postmen opausal status [Z78.0] Encounter for screen ing mammogram for malignant neoplasm of breast [Z12.31] Start: 02-28-2024 End: 02-28-2024 Orders Only Yan Montaño MD Work Phone: Pulmonary Medicine Comment on above: Hypoxemia (Primary D x); Morbid obesity (HCC) Start: 02-25-2024 End: 02-25-2024 ambulatory Pulm Lab [facility] Work Phone: PULM LAB [facility] Comment on above: Spirometry Start: 02-25-2024 End: 02-25-2024 Patient encounter procedure Pulm Lab [facility] Work Phone: PULM LAB [facility] Comment on above: Asthma-COPD overlap syndrome (HCC) (Primary Dx); NEVA (obstructive sleep apnea); Former cigarette smoker; Morbid obesity (HCC); Lung nodules Start: 02-05-2024 End: 02-05-2024 ambulatory GRAY QUINTANA DO Facility:[facility] Start: 02-05-2024 End: 02-05-[address] DOMINIQUE DORSEY MD [facility] Start: 01-24-2024 End: 01-24-2024 ambulatory GRAY QUINTANA Facility:[facility] Start: 01-23-2024 End: 01-23-2024 Patient encounter procedure Gray Garciaon DO Work Phone: [facility] Comment on above: Hypertension, essent ial (Primary Dx); Encounter for screening mammogram for malignant neoplasm of breast; Asymptomatic postmenopausal status; Disorder of bone and cartilage; Chronic obstructive pulmonary disease, unspecified COPD type (HCC); Ulcerative colitis without complications, unspecified location (HCC); CKD (chronic kidney disease) stage 2, GFR 60-89 ml/min; Pedal edema; Wheezing; SOB (shortness of breath); Vitamin D deficiency; Fatigue, unspecified type; IFG (impaired fasting glucose) Start: 01-23-2024 End: 01-23-2024 ambulatory GRAY QUINTNAA Facility:[facility] Start: 01-01-2024 End: 01-05-[address] DOMINIQUE DORSEY MD Facility:[facility] Start: 01-01-2024 End: 01-05-[address] DOMINIQUE DORSEY MD [facility] Start: 12-31-2023 End: 12-31-[address] DOMINIQUE DORSEY MD Facility:[facility] Start: 12-31-2023 End: 12-31-[address] DOMINIQUE DORSEY MD [facility] Start: 12-07-2023 Refill Amelia naranjo ENTERPRISE INFRASTRUCTURE ARCHITECT.TOOL 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 Work Phone: [facility] Comment on above: Refill Request Start: 12-07-2023 Telephone encounter Carolyn canada APRN.TOOL 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 Work Phone: [facility] [place] Comment on above: Results Start: 12-05-2023 Telephone encounter Carolyn canada APRN.TOOL 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 Work Phone: [facility] [place] Comment on above: Results Start: 12-04-2023 Telephone encounter Gray hartley DO Work Phone: [address] [place] [address] Comment on above: Patient Question Start: 12-03-2023 End: 12-03-2023 Subsequent hospital visit by physician Pedro Pablo [facility] Rodriguez Work Phone: Radiology Comment on above: Acute pain of right shoulder [M25.511] Start: 12-03-2023 End: 12-03-2023 Office outpatient visit 25 minutes Carolyn Ramirez APRN.TOOL 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 Work Phone: [facility] Comment on above: Chest wall pain (Etelvina stephen Dx); Chronic obstructive pulmonary disease, unspecified COPD type (HCC); Acute pain of right shoulder; SOB (shortness of breath) Start: 12-03-2023 Telephone encounter Carolyn canada APRN.JAMI Work Phone: [facility] Comment on above: Patient Update Start: 11-28-2023 End: 11-28-2023 Office outpatient visit 25 minutes Carolyn Ramirez APRN.JAMI Work Phone: [facility] Comment on above: Costochondritis (Etelvina stephen Dx) Start: 11-26-2023 End: 11-30-2023 ambulatory SHANNAN LOCKHART PA-C Facility:B Start: 11-26-2023 End: 11-30-2023 Outreach Lab SHANNAN LOCKHART PA-C [facility] Start: 11-23-2023 End: 11-23-2023 ambulatory SHANNAN ÁLVAREZ-Niki Facility:B Start: 11-23-2023 End: 11-23-2023 Patient encounter procedure SHANNAN LOCKHART PA-C [facility] Start: 10-17-2023 End: 10-17-2023 Patient encounter procedure Gray Quintana DO Work Phone: [facility] Comment on above: Hypertension, essent ial (Primary Dx); Left Achilles tendinitis; Pedal edema; CKD (chronic kidney disease) stage 2, GFR 60-89 ml/min; Obesity, Class II, BMI 35-39.9; Fatigue, unspecified type; Hyperglycemia; Wheezing; SOB (shortness of breath) Start: 10-12-2023 End: 10-12-2023 Patient encounter procedure Amelia Dania ENTERPRISE INFRASTRUCTURE ARCHITECT.TOOL 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 Work Phone: Family Medicine [facility] Comment on above: Left Achilles tendin itis (Primary Dx) Start: 09-12-2023 Telephone encounter Christina healy ENTERPRISE INFRASTRUCTURE ARCHITECT.TOOL 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 Work Phone: [facility] Comment on above: Results Start: 09-10-2023 End: 09-10-2023 Patient encounter procedure Amelia Martinezutzman ENTERPRISE INFRASTRUCTURE ARCHITECT.TOOL 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 Work Phone: [facility] Comment on above: Pedal edema (Primary Dx); Hypertension, essential; CKD (chronic kidney disease) stage 2, GFR 60-89 ml/min; SOB (shortness of breath); Allergic arthritis of hand, unspecified laterality; Situational anxiety Start: 09-08-2023 ambulatory Stephani Weems RN NURSE BUSINESS TECHNOLOGY ANALYST Comment on above: Finger Pain (Left fi ngers painful and swollen) Start: 09-07-[address] claros ENTERPRISE INFRASTRUCTURE ARCHITECT.TOOL 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 Work Phone: [facility] Comment on above: Results Start: 09-06-2023 End: 09-06-2023 Patient encounter procedure Amelia Martinezutzman ENTERPRISE INFRASTRUCTURE ARCHITECT.TOOL 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 Work Phone: [facility] [place] Comment on above: Pedal edema (Primary Dx); Hypertension, essential; CKD (chronic kidney disease) stage 2, GFR 60-89 ml/min; Wheezing; SOB (shortness of breath) Start: 08-28-[address] claros ENTERPRISE INFRASTRUCTURE ARCHITECT.TOOL 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 Work Phone: Family Medicine [facility] Comment on above: Results Start: 08-24-2023 End: 08-24-2023 Subsequent hospital visit by physician Xr [facility] Work Phone: Radiology Comment on above: Wheezing [R06.2] Start: 08-08-[address] claros ENTERPRISE INFRASTRUCTURE ARCHITECT.TOOL 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 Work Phone: Family [facility] Comment on above: Results Start: 08-07-2023 Refill Amelia Gilbert marcella ENTERPRISE INFRASTRUCTURE ARCHITECT.TOOL 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 Work Phone: Family Medicine [facility] Comment on above: Med Change Request Start: 08-07-2023 End: 08-07-2023 Patient encounter procedure Amelia Trotter ENTERPRISE INFRASTRUCTURE ARCHITECT.TOOL 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 Work Phone: Family Medicine [place] Comment on above: Pedal edema (Primary Dx); CKD (chronic kidney disease) stage 2, GFR 60-89 ml/min; Hypertension, essential Start: 07-31-2023 End: 07-31-2023 Subsequent hospital visit by physician Pedro Pablo [facility] [place] Work Phone: Radiology Comment on above: Pedal edema [R60.0] Start: 07-31-2023 Telephone encounter Amelia Hardy ARIAN.TOOL 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 Work Phone: Family Medicine [place] Comment on above: Results Start: 07-19-2023 Telephone encounter Gray hartley DO Work Phone: [facility] Start: 07-09-2023 End: 07-09-2023 Patient encounter procedure Gray Quintana DO Work Phone: [facility] [place] Comment on above: Weight gain (Primary Dx); CKD (chronic kidney disease) stage 2, GFR 60-89 ml/min; Osteopenia, unspecified location; Elevated C-reactive protein (CRP); Hypertension, essential; Obesity, Class II, BMI 35-39.9; Fatigue, unspecified type; Vitamin D deficiency; Hyperglycemia; Acute bronchitis with chronic obstructive pulmonary disease (COPD) ([facility]) ([facility]); Ulcerative colitis without complications, unspecified location ([facility]) Start: 06-27-2023 ambulatory Gray Oglesby son DO Work Phone: [facility] [place] Start: 06-20-2023 ambulatory Gray Oglesby son DO Work Phone: [facility] [place] Start: 05-03-2023 Telephone encounter Gray rehmanison DO Work Phone: [facility] [place] Comment on above: Results Start: 04-23-2023 Telephone encounter Gray hartley DO Work Phone: [facility] [place] Comment on above: Results (CT scan don e 04/16) Start: 04-23-2023 End: 04-23-[address] [facility] Therapy Comment on above: Patient Education; R eassessment Start: 04-18-2023 Patient encounter procedure [facility] Work Phone: Start: 04-17-2023 End: 04-17-2023 ambulatory [facility] Work Phone: Start: 04-17-2023 End: 04-17-2023 Patient encounter procedure [facility] Work Phone: Start: 04-06-2023 End: 04-06-2023 Patient encounter procedure Gray Quintana DO Work Phone: [facility] Comment on above: Acute bronchitis wit h chronic obstructive pulmonary disease (COPD) (HCC) (Primary Dx); Lung nodule, multiple; Chronic obstructive pulmonary disease, unspecified COPD type (HCC) Start: 03-23-2023 End: 03-23-2023 Emergency department patient visit [facility] Work Phone: Start: 03-19-2023 Refill Gray healy DO Work Phone: [facility] Comment on above: Refill Request Start: 03-12-2023 End: 03-12-[address] Nutrition Therapy Comment on above: Patient Education; R eassessment Start: 01-22-2023 End: 01-22-[address] Nutrition Therapy Comment on above: Patient Education; A ssessment Start: 01-16-2023 End: 01-16-2023 Office outpatient visit 15 minutes Carolyn Ramirez APRN.TOOL 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 Work Phone: [facility] Comment on above: CKD (chronic kidney disease) stage 2, GFR 60-89 ml/min (Primary Dx); Obesity, Class II, BMI 35-39.9 Start: 01-09-2023 Telephone encounter Christina Jennie healy ENTERPRISE INFRASTRUCTURE ARCHITECT.TOOL 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 Work Phone: [facility] Comment on above: Patient Update Start: 12-29-2022 Telephone encounter Lanie Chan on RD [facility] [place] Start: 12-28-2022 Telephone encounter Christina healy ENTERPRISE INFRASTRUCTURE ARCHITECT.TOOL 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 Work Phone: [facility] Comment on above: Results Start: 12-27-2022 End: 12-27-2022 Patient encounter procedure Christina Anthony ENTERPRISE INFRASTRUCTURE ARCHITECT.TOOL 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 Work Phone: [facility] Comment on above: Obesity, Class II, B [place] 35-39.9 (Primary Dx); NEVA (obstructive sleep apnea); Microscopic hematuria; Blood glucose elevated; Hypertension, essential; Ulcerative colitis without complications, unspecified location (HCC); Chronic kidney disease, stage 2 (mild); Anxiety and depression Start: 12-08-2022 Telephone encounter Richard Armas MD Work Phone: [facility] Comment on above: Results (Urine Cx mi xed.) Start: 11-29-2022 Telephone encounter Igor Srinivasan MD Work Phone: [facility] Comment on above: wound on finger Start: 11-20-2022 End: 11-20-2022 ambulatory Tina O'Jc PT [facility] Comment on above: Spinal stenosis, lum bar region, without neurogenic claudication (Primary Dx) Start: 11-15-2022 Telephone encounter Igor Srinivasan MD Work Phone: [facility] Comment on above: Results Start: 11-15-2022 End: 11-15-2022 ambulatory Tina O'Jc PT [facility] Comment on above: Spinal stenosis, lum bar region, without neurogenic claudication (Primary Dx) Start: 11-14-2022 End: 11-14-2022 Patient encounter procedure Andres Srinivasan MD Work Phone: [facility] Comment on above: Fatigue, unspecified type (Primary Dx); History of iron deficiency Start: 11-13-2022 End: 11-13-2022 ambulatory Marilou Everett LITHOGRAPH PRINTER Work Phone: [facility] Comment on above: Spinal stenosis, lum bar region, without neurogenic claudication (Primary Dx) Start: 11-08-2022 End: 11-08-2022 ambulatory Tina O'Jc PT [facility] Physical Therapy Comment on above: Spinal stenosis, lum bar region, without neurogenic claudication (Primary Dx) Start: 11-01-2022 End: 11-01-2022 ambulatory Tina O'Jc PT [facility] Physical [facility] Comment on above: Spinal stenosis, lum bar region, without neurogenic claudication (Primary Dx) Start: 10-24-2022 End: 10-24-2022 ambulatory Tina O'Jc PT [facility] Physical Therapy Comment on above: Spinal stenosis of l umbar region, unspecified whether neurogenic claudication present (Primary Dx) Start: 08-24-2022 Telephone encounter Gray hartley DO Work Phone: [facility] Comment on above: Results Start: 08-23-2022 End: 08-23-2022 Patient encounter procedure Gray Quintana DO Work Phone: [facility] Comment on above: Muscle pain (Primary Dx); Myalgia; Multiple joint pain; Hypertension, essential; Ulcerative colitis without complications, unspecified location (HCC) Start: 07-17-2022 End: 07-17-2022 ambulatory ORDER ANALYST-C Jackie Haider NP Work Phone: [facility] Work Phone: Start: 07-17-2022 End: 07-17-2022 Patient encounter procedure SELENA Haider NP Work Phone: [facility] Start: 07-12-2022 End: 07-16-[address] DOMINIQUE DORSEY MD [facility] Start: 07-05-2022 Telephone encounter Christina healy APRN.TOOL 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 Work Phone: [facility] Comment on above: Results Start: 07-03-2022 End: 07-03-2022 Patient encounter procedure Christina Anthony APRN.TOOL 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 Work Phone: [facility] Comment on above: Wellness examination (Primary Dx); Ulcerative colitis without complications, unspecified location (HCC); Osteopenia, unspecified location; Hypertension, essential; NEVA (obstructive sleep apnea); Mild intermittent asthma without complication; Obesity, Class II, BMI 35-39.9 Start: 07-03-2022 End: 07-03-2022 Patient encounter status Christina Anthony ENTERPRISE INFRASTRUCTURE ARCHITECT.TOOL 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 Work Phone: [facility] Start: 06-13-2022 End: 06-13-2022 Patient encounter procedure ORDER ANALYST-C Jackie Haider ORDER ANALYST [facility] Start: 06-06-2022 End: 06-06-2022 Patient encounter procedure YAN REYES ENTERPRISE INFRASTRUCTURE ARCHITECT-TOOL 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 [facility] Start: 04-17-2022 End: 04-17-2022 ambulatory ORDER ANALYST-C Jackie Haider ORDER ANALYST Work Phone: [facility] Work Phone: Start: 04-17-2022 End: 04-17-2022 Patient encounter procedure ORDER ANALYST-C Jackie Haider ORDER ANALYST Work Phone: [facility] Start: 03-16-2022 End: 03-16-2022 Patient encounter procedure JACKIE HAIDER ENTERPRISE INFRASTRUCTURE ARCHITECT-TOOL 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 [facility] Start: 01-25-2022 End: 01-29-[address] DOMINIQUE DORSEY MD [facility] Start: 01-24-2022 End: 01-24-[address] DOMINIQUE DORSEY MD [facility] Start: 01-02-2022 End: 01-02-2022 Patient encounter procedure ORDER ANALYST-C Jackie Haider ORDER ANALYST Work Phone: [facility] Start: 12-15-2021 End: 12-15-2021 Patient encounter procedure ORDER ANALYST-C Jackie Haider ORDER ANALYST Work Phone: [facility], [place] Start: 12-14-2021 End: 12-14-2021 Patient encounter procedure JACKIE HAIDER ENTERPRISE INFRASTRUCTURE ARCHITECT-TOOL 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 [facility] Start: 12-13-2021 End: 12-13-2021 Patient encounter procedure ORDER ANALYST-C Jackie Haider ORDER ANALYST Work Phone: [facility]/Neurology Start: 11-02-2021 End: 11-06-2021 Outreach Lab KEENA COFFEY MD [facility] Start: 08-25-2021 Patient encounter procedure ORDER ANALYST-C Jackie Haider ORDER ANALYST Work Phone: [facility] Start: 08-24-2021 Patient encounter procedure ORDER ANALYST-C Jackie Haider ORDER ANALYST Work Phone: [facility] Start: 08-15-2021 End: 08-15-2021 Patient encounter procedure ORDER ANALYST-C Jackie Haider ORDER ANALYST Work Phone: [facility], [facility] Start: 08-09-2021 End: 08-09-2021 Patient encounter procedure ORDER ANALYST-C Jackie Haider ORDER ANALYST Work Phone: [facility] [place] Start: 06-28-2021 End: 07-02-2021 Outreach Lab JACKIE HAIDER ENTERPRISE INFRASTRUCTURE ARCHITECT-TOOL 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 [facility] Start: 06-23-2021 End: 06-27-2021 Outreach Lab LACEY LEIVA ENTERPRISE INFRASTRUCTURE ARCHITECT-TOOL 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 [facility] Start: 06-14-2021 End: 06-14-2021 Patient encounter procedure ORDER ANALYST-C Jackie Haider NP Work Phone: [facility] Start: 05-20-2021 End: 05-20-2021 Patient encounter procedure KEENA COFFEY MD [facility] Procedures Date Procedure Procedure Detail Performing Clinician Start: 01-15-2025 Urnls dip stick/tabl et reagent auto microscopy Dr. Gray Quintana DO Work Phone: Start: 01-15-[address] Gray Quintana DO Work Phone: Start: 01-12-2025 Urnls dip stick/tabl et rgnt auto w/o microscopy Madison Turner ENTERPRISE INFRASTRUCTURE ARCHITECT.TOOL 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 Work Phone: Start: 12-29-2024 Urnls dip stick/tabl et rgnt auto w/o microscopy Yarely Tijerina ENTERPRISE INFRASTRUCTURE ARCHITECT.TOOL 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 Work Phone: Start: 12-29-2024 Adult depression screening assessment Merari Barker MA Start: 11-20-2024 Mri spinal canal lum bar w/o contrast material Cherelle Mo MD Work Phone: Start: 11-18-2024 Nitric oxide gas determination Yan Montaño MD Work Phone: Start: 10-23-2024 Hepatobil syst imag inc gb w/pharma intervenj Gray Quintana DO Work Phone: Start: 09-11-2024 Urnls dip stick/tabl et rgnt auto w/o microscopy Amelia Trotter ENTERPRISE INFRASTRUCTURE ARCHITECT.TOOL 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 Work Phone: Start: 07-28-2024 Dup-scan xtr veins unilateral/limited study Christina Anthony ENTERPRISE INFRASTRUCTURE ARCHITECT.TOOL 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 Work Phone: Start: 07-24-2024 Lipid 1996 panel - S faviola or Plasma Gray Quintana DO Work Phone: Start: 02-25-2024 Co diffusing capacity C torsten Ramirez ENTERPRISE INFRASTRUCTURE ARCHITECT.TOOL 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 Work Phone: Start: 12-24-2023 Colonoscopy Gray devine DO Work Phone: Start: 12-03-2023 Radex shoulder compl ete minimum 2 views Carolyn Ramirez ENTERPRISE INFRASTRUCTURE ARCHITECT.TOOL 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 Work Phone: Start: 10-17-2023 Adult depression screening assessment Gray Quintana DO Work Phone: Start: 08-24-2023 Radiologic exam ches t 2 views Christina Anthony ENTERPRISE INFRASTRUCTURE ARCHITECT.TOOL 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 Work Phone: Start: 07-31-2023 Radiologic exam ches t 2 views Amelia Martinezutzman ENTERPRISE INFRASTRUCTURE ARCHITECT.TOOL 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 Work Phone: Start: 03-23-2023 Respiratory syncytia l virus antigen assay Start: 03-23-2023 SARS-CoV-2 & FLU Ant igen (Rapid) Start: 03-23-2023 Streptococcus pyogen es antigen assay Start: 03-23-2023 Plain chest X-ray Start: 07-03-2022 Lipid 1996 panel - S faviola or Plasma Lanie Love RD Start: 05-11-2022 Mammography Christina healy ENTERPRISE INFRASTRUCTURE ARCHITECT.TOOL 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 Work Phone: Start: 04-17-2022 CT of chest ORDER ANALYST-C Rod Haider ORDER ANALYST Work Phone: Start: 08-15-2021 Computed tomography of abdomen and pelvis with contrast ORDER ANALYST-C Jackie Haider ORDER ANALYST Work Phone: Start: 04-06-2011 Colonoscopy Christina Schneider son ENTERPRISE INFRASTRUCTURE ARCHITECT.TOOL 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 Work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 [facility] Comment on above: Nerve pain Start: 04-25-2024 End: 05-24-2024 Ct thorax w/o contrast material CT CHEST WO IVCON Radiology Routine Pulmonary nodule Expected: 04/25/2024, Expires: 05/24/2024 [facility] Work Phone: Comment on above: Expected: 04/25/2024 , Expires: 05/24/2024 Start: 04-06-2024 Annual PCP Team 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 Disease Visit Annual PCP Team Chronic Disease Visit [facility] Start: 04-06-2024 BP Controlled (<130/80) BP Controlle d (<130/80) [facility] Start: 03-07-2024 End: 03-07-2024 Patient encounter procedure 03/07/2024 2:10 PM EDT Appointment Mammogram [address] [place] [phone] Encounter for screening mammogram for malignant neoplasm of breast [Z12.31] Mammogram Comment on above: Encounter for screen ing mammogram for malignant neoplasm of breast [Z12.31] Start: 03-07-2024 End: 03-07-2024 Patient encounter procedure 03/07/2024 1:05 PM EDT Appointment Radiology [address] [place] [id number] Asymptomatic postmenopausal status [Z78.0]; Disorder of bone and cartilage [M89.9, M94.9] Radiology Comment on above: Asymptomatic postmen opausal status [Z78.0]; Disorder of bone and cartilage [M89.9, M94.9] Start: 02-25-2024 End: 02-25-2024 Patient encounter procedure 02/25/2024 12:45 PM EDT Office Visit Pulmonary Medicine [address] [place] [address] Yan Montaño MD [address] [place], [place] [phone] Chronic obstructive pulmonary disease, unspecified COPD type (HCC) [J44.9] Pulmonary Medicine Comment on above: Chronic obstructive pulmonary disease, unspecified COPD type (HCC) [J44.9] Start: 02-25-2024 End: 02-25-2024 ambulatory PULM LAB [facility] Comment on above: Chronic obstructive pulmonary disease, unspecified COPD type (HCC) [J44.9] Start: 01-27-2024 Covid-19 Vaccine ( season) Covid-19 Vaccine () [facility] Start: 01-27-2024 Covid-19 Vaccine () Covid-19 Vaccine () [facility] Start: 01-27-2024 Influenza vaccination C [facility] Start: 01-23-2024 End: 01-23-2024 Patient encounter procedure 01/23/2024 4:40 PM EDT Office Visit Family [facility] [address] [place], [place] [phone] Gray Quintana DO [address] [place] [address] 3 month follow up Family [facility] Comment on above: 3 month follow up Start: 01-23-2024 End: 04-23-2024 25-hydroxyvitamin D3 [Mass/volume] in Serum or Plasma VITAMIN D 25 HYDROXY Lab Routine Vitamin D deficiency Fatigue, unspecified type Expected: 01/23/2024, Expires: 04/23/2024 [facility] Comment on above: Expected: 01/23/2024 , Expires: 04/23/2024 Start: 01-23-2024 End: 04-23-2024 Cobalamin (Vitamin B12) [Mass/volume] in Serum or Plasma VITAMIN B12 Lab Routine Fatigue, unspecified type Expected: 01/23/2024, Expires: 04/23/2024 [facility] Comment on above: Expected: 01/23/2024 , Expires: 04/23/2024 Start: 01-23-2024 End: 04-23-2024 Hemoglobin A1c in Blood HEMOGLOBIN A1C Lab Routine IFG (impaired fasting glucose) Expected: 01/23/2024, Expires: 04/23/2024 [facility] Comment on above: Expected: 01/23/2024 , Expires: 04/23/2024 Start: 01-23-2024 End: 04-23-2024 Magnesium [Mass/volume] in Serum or Plasma MAGNESIUM Lab Routine Fatigue, unspecified type Expected: 01/23/2024, Expires: 04/23/2024 [facility] Comment on above: Expected: 01/23/2024 , Expires: 04/23/2024 Start: 01-23-2024 End: 04-23-2024 Thyrotropin [Units/volume] in Serum or Plasma THYROID STIMULATING HORMONE Lab Routine Fatigue, unspecified type Expected: 01/23/2024, Expires: 04/23/2024 [facility] Comment on above: Expected: 01/23/2024 , Expires: 04/23/2024 Start: 01-23-2024 End: 04-23-2024 Thyroxine (T4) free [Mass/volume] in Serum or Plasma T4 FREE/FREE THYROXINE Lab Routine Fatigue, unspecified type Expected: 01/23/2024, Expires: 04/23/2024 [facility] Comment on above: Expected: 01/23/2024 , Expires: 04/23/2024 Start: 01-17-2024 ANNUAL PCP TEAM DOWEL SANDER OPERATOR ORESTES DISEASE VISIT ANNUAL PCP TEAM CHRONIC DISEASE VISIT [facility] Start: 01-17-2024 BP CONTROLLED (<130/80) BP CONTROLLE D (<130/80) [facility] Start: 12-28-2023 ANNUAL PCP TEAM DOWEL SANDER OPERATOR ORESTES DISEASE VISIT ANNUAL PCP TEAM CHRONIC DISEASE VISIT [facility] Start: 12-28-2023 BP CONTROLLED (<130/80) BP CONTROLLE D (<130/80) [facility] Start: 12-28-2023 MMR (1 of 2 - Risk 2-dose series) MMR (1 of 2 - Risk 2-dose series) [facility] Comment on above: Postponed from 04/01 (Declined at this time) Start: 12-28-2023 MMR Vaccine (1 of 2 - Risk 2-dose series) MMR Vaccine (1 of 2 - Risk 2-dose series) [facility] Comment on above: Postponed from 04/01 (Declined at this time) Start: 12-28-2023 Pneumococcal Vaccine : 65+ (1 - PCV) Pneumococcal Vaccine: 65+ (1 - PCV) [facility] Comment on above: Postponed from 04/01 (Declined at this time) Start: 12-28-2023 PNEUMOCOCCAL: 65+ (1 - PCV) PNEUMOCOCCAL: 65+ (1 - PCV) [facility] Comment on above: Postponed from 04/01 (Declined at this time) Start: 12-28-2023 SHINGRIX VACCINE (1 of 2) SHINGRIX VACCINE (1 of 2) [facility] Comment on above: Postponed from 04/01 (Declined at this time) Start: 12-06-2023 End: 12-06-2023 Patient encounter procedure 12/06/2023 1:20 PM EDT Appointment Cat Scan [address] [place] [address] SOB (shortness of breath) [R06.02] [facility] Comment on above: SOB (shortness of br eath) [R06.02] Start: 12-03-2023 End: 03-03-2024 CREATININE BLD [facility] Comment on above: Expected: 12/03/2023 , Expires: 03/03/2024 Start: 11-25-2023 Influenza vaccination Influenza Vacc ine (#1) [facility] Comment on above: Postponed from 01/26 (Declined at this time) Start: 11-15-2023 ANNUAL PCP TEAM DOWEL SANDER OPERATOR ORESTES DISEASE VISIT ANNUAL PCP TEAM CHRONIC DISEASE VISIT [facility] Start: 11-15-2023 Creatinine measurement Serum Creatin ine [facility] Start: 11-15-2023 SERUM CREATININE SERUM CREATININE Cl [facility] Start: 10-17-2023 End: 10-17-2023 Patient encounter procedure 10/17/2023 10:40 AM EDT Office Visit Family Dania Steele [address] [place] [address] Gray Quintana DO [address] [place] [address] 3 month follow up/weight [facility] Comment on above: 3 month follow up/we ight Start: 10-11-2023 ANNUAL PCP TEAM DOWEL SANDER OPERATOR ORESTES DISEASE VISIT ANNUAL PCP TEAM CHRONIC DISEASE VISIT [facility] Start: 08-24-2023 ANNUAL PCP TEAM DOWEL SANDER OPERATOR ORESTES DISEASE VISIT ANNUAL PCP TEAM CHRONIC DISEASE VISIT [facility] Start: 07-19-2023 End: 10-18-2023 C reactive protein [Mass/volume] in Serum or Plasma C-REACTIVE PROTEIN (CRP) Lab Routine Elevated C-reactive protein (CRP) Expected: 07/19/2023, Expires: 10/18/2023 [facility] Work Phone: Comment on above: Expected: 07/19/2023 , Expires: 10/18/2023 Start: 07-19-2023 End: 10-18-2023 Comprehensive metabolic 2000 panel - Serum or Plasma COMP METABOLIC PANEL Lab Routine Elevated serum creatinine Expected: 07/19/2023, Expires: 10/18/2023 [facility] Work Phone: Comment on above: Expected: 07/19/2023 , Expires: 10/18/2023 Start: 07-09-2023 End: 10-08-2023 25-hydroxyvitamin D3 [Mass/volume] in Serum or Plasma [facility] Work Phone: Comment on above: Expected: 07/09/2023 , Expires: 10/08/2023 Start: 07-03-2023 COLORECTAL CANCER SCREENING COLORECTAL CANCER SCREENING [facility] Comment on above: Postponed from 04/01 (Declined at this time) Start: 07-03-2023 COVID-19 VACCINE (#1) COVID-19 VACCI NE (#1) [facility] Comment on above: Postponed from 09/29 (Declined at this time) Start: 07-03-2023 Screening for malign ant neoplasm of colon Colorectal Cancer Screening [facility] Comment on above: Postponed from 04/01 (Declined at this time) Start: 05-28-2023 Advance Directive Discussion Advance Directive Discussion [facility] Start: 05-28-2023 Behavioral Health Screening Behavioral Health Screening [facility] Start: 05-28-2023 Depression Assessment Depression Ass essment [facility] Start: 05-27-2023 ADVANCE DIRECTIVE DISCUSSION ADVANCE DIRECTIVE DISCUSSION [facility] Comment on above: Postponed from 05/28 (Declined at this time) Start: 05-11-2023 Mammography [facility] Start: 05-11-2023 Screening for malign ant neoplasm of breast Mammogram Screening [facility] Start: 05-03-2023 End: 08-02-2023 C reactive protein [Mass/volume] in Serum or Plasma C-REACTIVE PROTEIN (CRP) Lab Routine Elevated C-reactive protein (CRP) Expected: 05/03/2023, Expires: 08/02/2023 [facility] Work Phone: Comment on above: Expected: 05/03/2023 , Expires: 08/02/2023 Start: 04-18-2023 Protein measurement [facility] Start: 03-23-2023 [facility] Start: 01-26-2023 Influenza vaccination C [facility] Start: 11-14-2022 End: 01-14-2023 Comprehensive metabolic 2000 panel - Serum or Plasma [facility] Work Phone: Comment on above: Expected: 11/14/2022 , Expires: 01/14/2023 Start: 11-14-2022 End: 01-14-2023 Ferritin [Mass/volume] in Serum or Plasma [facility] Work Phone: Comment on above: Expected: 11/14/2022 , Expires: 01/14/2023 Start: 11-14-2022 End: 01-14-2023 Iron and Iron binding capacity panel - Serum or Plasma [facility] Work Phone: Comment on above: Expected: 11/14/2022 , Expires: 01/14/2023 Start: 11-14-2022 End: 01-14-2023 Thyrotropin [Units/volume] in Serum or Plasma [facility] Work Phone: Comment on above: Expected: 11/14/2022 , Expires: 01/14/2023 Start: 08-23-2022 End: 10-23-2022 C reactive protein [Mass/volume] in Serum or Plasma [facility] Work Phone: Comment on above: Expected: 08/23/2022 , Expires: 10/23/2022 Start: 08-23-2022 End: 10-23-2022 Creatine kinase [Enzymatic activity/volume] in Serum or Plasma [facility] Work Phone: Comment on above: Expected: 08/23/2022 , Expires: 10/23/2022 Start: 08-23-2022 End: 10-23-2022 Cyclic citrullinated peptide IgG Ab [Units/volume] in Serum or Plasma [facility] Work Phone: Comment on above: Expected: 08/23/2022 , Expires: 10/23/2022 Start: 08-23-2022 End: 10-23-2022 Magnesium [Mass/volume] in Serum or Plasma [facility] Work Phone: Comment on above: Expected: 08/23/2022 , Expires: 10/23/2022 Start: 08-23-2022 End: 10-23-2022 Nuclear Ab [Presence] in Serum by Immunoassay [facility] Work Phone: Comment on above: Expected: 08/23/2022 , Expires: 10/23/2022 Start: 08-23-2022 End: 10-23-2022 Rheumatoid factor [Units/volume] in Serum or Plasma [facility] Work Phone: Comment on above: Expected: 08/23/2022 , Expires: 10/23/2022 Start: 07-03-2022 End: 09-02-2022 Comprehensive metabolic 2000 panel - Serum or Plasma [facility] Work Phone: Comment on above: Expected: 07/03/2022 , Expires: 09/02/2022 Start: 07-03-2022 End: 09-02-2022 Hemoglobin A1c in Blood [facility] Work Phone: Comment on above: Expected: 07/03/2022 , Expires: 09/02/2022 Start: 07-03-2022 End: 09-02-2022 Lipid 1996 panel - Serum or Plasma [facility] Work Phone: Comment on above: Expected: 07/03/2022 , Expires: 09/02/2022 Start: 07-03-2022 End: 09-02-2022 Thyrotropin [Units/volume] in Serum or Plasma [facility] Work Phone: Comment on above: Expected: 07/03/2022 , Expires: 09/02/2022 Start: 12-15-2021 IgE [Units/volume] i n Serum or Plasma [facility] Work Phone: Start: 12-15-2021 [facility] Work Phone: Start: 2015 PNEUMOCOCCAL: 65+ (1 - PCV) PNEUMOCOCCAL: 65+ (1 - PCV) [facility] Start: 03-28-2015 Medicare Annual Well ness Visit Medicare Annual Wellness Visit [facility] Start: 04-06-2012 Colonoscopy COLONOSCOPY [facility] Start: 04-06-2012 Screening for malign ant neoplasm of colon [facility] Start: 2010 HEPATITIS B (1 of 3 - Risk 3-dose series) HEPATITIS B (1 of 3 - Risk 3-dose series) [facility] Start: 2010 Hepatitis B Vaccine (1 of 3 - Risk 3-dose series) Hepatitis B Vaccine (1 of 3 - Risk 3-dose series) [facility] Start: 2010 RSV Vaccine (1 - 1-d ose 60+ series) RSV Vaccine (1 - 1-dose 60+ series) [facility] Start: 2010 RSV Vaccine (1 - Ris k 60-74 years 1-dose series) RSV Vaccine (1 - Risk 60-74 years 1-dose series) [facility] Start: 2000 SHINGRIX VACCINE (1 of 2) SHINGRIX VACCINE (1 of 2) [facility] Start: 1995 COLOGUARD (FIT-DNA) COLOGUARD (FIT-D NA) [facility] Start: [address] [facility] Start: 1995 DIABETES SCREEN DIABETES SCREEN [facility] Start: 1995 FECAL OCCULT BLOOD FECAL OCCULT BLOO D [facility] Start: 1995 LIPID SCREEN LIPID SCREEN [facility] Start: 1995 Screening for malign ant neoplasm of colon [facility] Start: 1995 SIGMOIDOSCOPY SIGMOIDOSCOPY [facility] Start: 1980 Zoledronic acid therapy Alpha- 1 Antitrypsin Deficiency Screening [facility] Start: 1969 HEPATITIS A (1 of 2 - Risk 2-dose series) HEPATITIS A (1 of 2 - Risk 2-dose series) [facility] Start: 1969 Hepatitis A Vaccine (1 of 2 - Risk 2-dose series) Hepatitis A Vaccine (1 of 2 - Risk 2-dose series) [facility] Start: 1968 BP CONTROLLED (<130/80) BP CONTROLLE D (<130/80) [facility] Start: 1968 MMR (1 of 2 - Risk 2-dose series) MMR (1 of 2 - Risk 2-dose series) [facility] Start: 1968 Spirometry Spirometry [facility] Start: 1960 Meningococcal B Vacc ine: Consider Based On Risk (1 of 4 - Increased Risk) Meningococcal B Vaccine: Consider Based On Risk (1 of 4 - Increased Risk) [facility] Start: 1960 MENINGOCOCCAL B: Consider based on risk (1 of 4 - Increased Risk Bexsero 2-dose series) MENINGOCOCCAL B: Consider based on risk (1 of 4 - Increased Risk Bexsero 2-dose series) [facility] Start: 1960 MENINGOCOCCAL B: Consider based on risk (1 of 4 - Increased Risk) MENINGOCOCCAL B: Consider based on risk (1 of 4 - Increased Risk) [facility] Start: 1956 PNEUMOCOCCAL: 65+ (1 - PCV) PNEUMOCOCCAL: 65+ (1 - PCV) [facility] Start: 1951 HEPATITIS A (1 of 2 - Risk 2-dose series) HEPATITIS A (1 of 2 - Risk 2-dose series) [facility] Alternaria alternata IgE Ab [Units/volume] in Serum [facility] Work Phone: Belgian Cockroach I gE Ab [Units/volume] in Serum [facility] Work Phone: Belgian house dust mite IgE Ab [Units/volume] in Serum [facility] Work Phone: Aspergillus fumigatu s [facility]ST [facility] Work Phone: Bacteria identified in Urine by Culture BACTERIAL CULTURE, URINE Microbiology Routine Increased urinary frequency Foul smelling urine 09/11/2024 4:34 PM EDT [facility] Work Phone: Bacteria identified in Urine by Culture BACTERIAL CULTURE, URINE Microbiology Routine Dysuria 12/29/2024 11:29 AM EDT [facility] Work Phone: Bacteria identified in Urine by Culture BACTERIAL CULTURE, URINE Microbiology Routine UTI symptoms 01/12/2025 1:09 PM EDT [facility] Work Phone: Bermuda grass IgE Ab [Units/volume] in Serum [facility] Work Phone: Box elder [facility] Work Phone: Cat dander [facility] Work Phone: Cladosporium herbaru m IgE Ab [Units/volume] in Serum [facility] Work Phone: Common Ragweed IgE A b [Units/volume] in Serum [facility] Work Phone: Dixon [facility] Work Phone: CT Chest [facility] End: 05-05-2024 Ct thorax w/o contrast material CT CHEST WO IVCON Radiology Routine Lung nodule, multiple Chronic obstructive pulmonary disease, unspecified COPD type (HCC) 1 Occurrences starting 04/06/2023 until 05/05/2024 [facility] Work Phone: Comment on above: 1 Occurrences starti ng 04/06/2023 until 05/05/2024 End: 01-01-2025 CTA Pulmonary arteries for pulmonary embolus W contrast IV CT CHEST W IVCON PE Radiology STAT SOB (shortness of breath) 1 Occurrences starting 12/03/2023 until 01/01/2025 [facility] Comment on above: 1 Occurrences starti ng 12/03/2023 until 01/01/2025 Dog epithelium IgE A b [Units/volume] in Serum [facility] Work Phone: End: 02-21-2025 DXA Skeletal system.axial Views for bone density DXA-AXIAL SKELETON Radiology Routine Asymptomatic postmenopausal status Disorder of bone and cartilage 1 Occurrences starting 01/23/2024 until 02/21/2025 [facility] Comment on above: 1 Occurrences starti ng 01/23/2024 until 02/21/2025 DXA Skeletal system.axial Views for bone density DXA-AXIAL SKELETON Radiology Routine Asymptomatic postmenopausal status Disorder of bone and cartilage 03/07/2024 1:23 PM EDT [facility] Work Phone: house dust mite IgE Ab [Units/volume] in Serum [facility] Work Phone: End: 06-18-2025 HOME SLEEP APNEA TEST (HSAT) HOME SLEEP APNEA TEST (HSAT) Procedures Routine Poor sleep NEVA (obstructive sleep apnea) 1 Occurrences starting 06/18/2024 until 06/18/2025 [facility] Comment on above: 1 Occurrences starti ng 06/18/2024 until 06/18/2025 IgE [Units/volume] i n Serum or Plasma [facility] Work Phone: Immunoglobulin E measurement [facility] Work Phone: End: 07-24-2025 INR in Platelet poor plasma by Coagulation assay INR (POC) Lab Routine Personal history of DVT (deep vein thrombosis) Once per month for 99 Occurrences starting 07/24/2024 until 07/24/2025 [facility] Work Phone: Comment on above: Once per month for 9 9 Occurrences starting 07/24/2024 until 07/24/2025 End: 01-01-2025 LUNG DIFFUSION CAPACITY (DLCO) LUNG DIFFUSION CAPACITY (DLCO) PFT Routine Chronic obstructive pulmonary disease, unspecified COPD type (HCC) 1 Occurrences starting 12/03/2023 until 01/01/2025 [facility] Comment on above: 1 Occurrences starti ng 12/03/2023 until 01/01/2025 LUNG DIFFUSION CAPAC ITY (DLCO) LUNG DIFFUSION CAPACITY (DLCO) PFT Routine Chronic obstructive pulmonary disease, unspecified COPD type (HCC) 02/25/2024 11:09 AM EDT [facility] Work Phone: End: 01-01-2025 LUNG VOLUMES LUNG VOLUMES PFT Routine Chronic obstructive pulmonary disease, unspecified COPD type (HCC) 1 Occurrences starting 12/03/2023 until 01/01/2025 [facility] Comment on above: 1 Occurrences starti ng 12/03/2023 until 01/01/2025 LUNG VOLUMES LUNG VOLUMES PFT Routine Chronic obstructive pulmonary disease, unspecified COPD type (HCC) 02/25/2024 11:09 AM EDT [facility] Work Phone: End: 07-19-2024 EMMANUELLE SCREENING EMMANUELLE SCREENING Radiology Routine Encounter for screening mammogram for breast cancer 1 Occurrences starting 06/20/2023 until 07/19/2024 [facility] Work Phone: Comment on above: 1 Occurrences starti ng 06/20/2023 until 07/19/2024 End: 07-26-2024 EMMANUELLE SCREENING EMMANUELLE SCREENING Radiology Routine Encounter for screening mammogram for breast cancer 1 Occurrences starting 06/27/2023 until 07/26/2024 [facility] Work Phone: Comment on above: 1 Occurrences starti ng 06/27/2023 until 07/26/2024 Measurement of Aspergillus flavus antibody [facility] Work Phone: Measurement of Aspergillus fumigatus antibody [facility] Work Phone: Measurement of Aspergillus niger antibody [facility] Work Phone: End: 02-21-2025 MG Breast Screening EMMANUELLE SCREENING Radiology Routine Encounter for screening mammogram for malignant neoplasm of breast 1 Occurrences starting 01/23/2024 until 02/21/2025 [facility] Work Phone: Comment on above: 1 Occurrences starti ng 01/23/2024 until 02/21/2025 MG Breast Screening EMMANUELLE SCREENIN G Radiology Routine Encounter for screening mammogram for malignant neoplasm of breast 03/07/2024 1:36 PM EDT [facility] Work Phone: Mouse urine proteins [facility]ST [facility] Work Phone: End: 11-29-2025 MR Biliary ducts and Pancreatic duct WO and W contrast IV MRI PANC/TRISH WO/W IVCON Radiology Routine Calculus of gallbladder without cholecystitis without obstruction 1 Occurrences starting 10/30/2024 until 11/29/2025 [facility] Work Phone: Comment on above: 1 Occurrences starti ng 10/30/2024 until 11/29/2025 MR Biliary ducts and Pancreatic duct WO and W contrast IV MRI PANC/TRISH WO/W IVCON Radiology Routine Calculus of gallbladder without cholecystitis without obstruction 11/11/2024 12:32 PM EDT [facility] Work Phone: End: 12-05-2025 MR Lumbar spine WO contrast MRI LUMBAR SPINE WO IVCON Radiology Routine Radiculopathy of lumbar region 1 Occurrences starting 11/05/2024 until 12/05/2025 [facility] Work Phone: Comment on above: 1 Occurrences starti ng 11/05/2024 until 12/05/2025 End: 11-29-2025 MR Unspecified body region 3D post processing MRI 3D POST PROCESSING Radiology Routine Calculus of gallbladder without cholecystitis without obstruction Nausea 1 Occurrences starting 10/30/2024 until 11/29/2025 [facility] Comment on above: 1 Occurrences starti ng 10/30/2024 until 11/29/2025 MR Unspecified body region 3D post processing MRI 3D POST PROCESSING Radiology Routine Calculus of gallbladder without cholecystitis without obstruction Nausea 11/11/2024 12:33 PM EDT [facility] Neutrophil cytoplasm ic Ab.classic [Units/volume] in Serum [facility] Work Phone: End: 06-25-2025 NITRIC OXIDE, EXHALED NITRIC OXIDE, EXHALED PFT Routine Asthma-COPD overlap syndrome (HCC) 1 Occurrences starting 05/26/2024 until 06/25/2025 [facility] Work Phone: Comment on above: 1 Occurrences starti ng 05/26/2024 until 06/25/2025 Njx dx/ther sbst intrlmnr lmbr/sac w/img gdn EPI LUMBAR OR SACRAL W/IMAGING Procedures Routine Radiculopathy of lumbar region History of lumbar laminectomy for spinal cord decompression Ordered: 11/25/2024 [facility] Work Phone: Comment on above: Ordered: 11/25/2024 End: 11-07-2025 NM Biliary ducts and Gallbladder Views for patency of biliary structures and ejection fraction W sincalide and W radionuclide IV NM HEPATOBILIARY W EF AND/OR RX Radiology Routine Calculus of gallbladder without cholecystitis without obstruction Nausea 1 Occurrences starting 10/08/2024 until 11/07/2025 [facility] Work Phone: Comment on above: 1 Occurrences starti ng 10/08/2024 until 11/07/2025 OXIMETRY - NOCTURNAL OXIMETRY - NOCTURNAL Procedures Routine NEVA (obstructive sleep apnea) Asthma-COPD overlap syndrome (HCC) Ordered: 02/25/2024 [facility] Work Phone: Comment on above: Ordered: 02/25/2024 P-ANCA measurement [facility] Work Phone: Patient Education [facility] Work Phone: Patient referral [facility] Work Phone: Pecan or Howell Nut IgE Ab [Units/volume] in Serum [facility] Work Phone: Protein measurement [facility] End: 07-24-2025 PT panel - Platelet poor plasma by Coagulation assay PROTHROMBIN TIME Lab STAT Personal history of DVT (deep vein thrombosis) Once per month for 99 Occurrences starting 07/24/2024 until 07/24/2025 [facility] Comment on above: Once per month for 9 9 Occurrences starting 07/24/2024 until 07/24/2025 PT PLAN OF CARE CERTIFICATION PT PLAN OF CARE CERTIFICATION Procedures Routine Spinal stenosis of lumbar region, unspecified whether neurogenic claudication present Ordered: 10/24/2022 [facility] Comment on above: Ordered: 10/24/2022 PT PLAN OF CARE CERTIFICATION PT PLAN OF CARE CERTIFICATION Procedures Routine Spinal stenosis, lumbar region, without neurogenic claudication Ordered: 11/15/2022 [facility] Comment on above: Ordered: 11/15/2022 Rough Pigweed IgE Ab [Units/volume] in Serum [facility] Work Phone: Sheep Rough And Ready IgE Ab [Units/volume] in Serum [facility] Work Phone: Silver Birch IgE Ab [Units/volume] in Serum [facility] Work Phone: End: 01-01-2025 SPIROMETRY WITH DILATOR IF OBSTRUCTED SPIROMETRY WITH DILATOR IF OBSTRUCTED PFT Routine Chronic obstructive pulmonary disease, unspecified COPD type (HCC) 1 Occurrences starting 12/03/2023 until 01/01/2025 [facility] Work Phone: Comment on above: 1 Occurrences starti ng 12/03/2023 until 01/01/2025 SPIROMETRY WITH DILA TOR IF OBSTRUCTED SPIROMETRY WITH DILATOR IF OBSTRUCTED PFT Routine Chronic obstructive pulmonary disease, unspecified COPD type ([facility]) 02/25/2024 11:09 AM EDT [facility] Work Phone: Danny IgE Ab [Units/volume] in Serum [facility] Work Phone: Tree pollen [facility] Work Phone: End: 11-02-2025 US Abdomen RUQ US ABD RIGHT UPPER QUADRANT Radiology Routine Abdominal distension LUQ abdominal pain 1 Occurrences starting 10/03/2024 until 11/02/2025 [facility] Comment on above: 1 Occurrences starti ng 10/03/2024 until 11/02/2025 US Abdomen RUQ US ABD RIGHT UPP ER QUADRANT Radiology Routine Abdominal distension LUQ abdominal pain 10/06/2024 1:23 PM EDT [facility] Work Phone: End: 07-28-2025 US Lower extremity vein US LEG VEIN DVT UNL VAS LAB Vascular Lab STAT Acute deep vein thrombosis (DVT) of proximal vein of right lower extremity (HCC) Pain of right lower extremity 1 Occurrences starting 07/28/2024 until 07/28/2025 [facility] Work Phone: Comment on above: 1 Occurrences starti ng 07/28/2024 until 07/28/2025 [place] [facility] Work Phone: White Arsen IgE Ab [Units/volume] in Serum [facility] Work Phone: White Elm IgE Ab [Units/volume] in Serum [facility] Work Phone: White mulberry IgE A b [Units/volume] in Serum [facility] Work Phone: End: 01-03-2026 XR Cervical spine 2 or 3 views and (Views W flexion and W extension) XR CERVICAL 2V FLEX/EXT Radiology Routine Neck pain 1 Occurrences starting 12/04/2024 until 01/03/2026 [facility] Work Phone: Comment on above: 1 Occurrences starti ng 12/04/2024 until 01/03/2026 XR Cervical spine 2 or 3 views and (Views W flexion and W extension) XR CERVICAL 2V FLEX/EXT Radiology Routine Neck pain 12/04/2024 10:17 AM EDT [facility] End: 01-03-2026 XR Elbow - left AP and Lateral XR ELBOW GENERAL 2V AP/LAT LEFT Radiology Routine Left elbow pain 1 Occurrences starting 12/04/2024 until 01/03/2026 [facility] Comment on above: 1 Occurrences starti ng 12/04/2024 until 01/03/2026 XR Elbow - left AP a nd Lateral XR ELBOW GENERAL 2V AP/LAT LEFT Radiology Routine Left elbow pain 12/04/2024 10:17 AM EDT [facility] End: 11-02-2025 XR HIP BILATERAL 5V PEL/AP/LAT EACH HIP XR HIP BILATERAL 5V PEL/AP/LAT EACH HIP Radiology Routine Chronic midline low back pain with bilateral sciatica Spinal stenosis of lumbar region without neurogenic claudication 1 Occurrences starting 10/03/2024 until 11/02/2025 [facility] Comment on above: 1 Occurrences starti ng 10/03/2024 until 11/02/2025 XR HIP BILATERAL 5V PEL/AP/LAT EACH HIP XR HIP BILATERAL 5V PEL/AP/LAT EACH HIP Radiology Routine Chronic midline low back pain with bilateral sciatica Spinal stenosis of lumbar region without neurogenic claudication 10/03/2024 9:16 AM EDT [facility] End: 11-02-2025 XR Lumbar spine 3 Views XR LUMBAR GENERAL 3V AP/LAT/L5-S1 Radiology Routine Chronic midline low back pain with bilateral sciatica Spinal stenosis of lumbar region without neurogenic claudication 1 Occurrences starting 10/03/2024 until 11/02/2025 [facility] Work Phone: Comment on above: 1 Occurrences starti ng 10/03/2024 until 11/02/2025 XR Lumbar spine 3 Views XR LUMBA R GENERAL 3V AP/LAT/L5-S1 Radiology Routine Chronic midline low back pain with bilateral sciatica Spinal stenosis of lumbar region without neurogenic claudication 10/03/2024 9:16 AM EDT [facility] End: 01-01-2025 XR Shoulder - right 3 Views XR SHOULDER GENERAL 3V OR MORE AP/TRUE AP/OTHER RIGHT Radiology Routine Acute pain of right shoulder 1 Occurrences starting 12/03/2023 until 01/01/2025 [facility] Comment on above: 1 Occurrences starti ng 12/03/2023 until 01/01/2025 XR Shoulder - right 3 Views XR SHOULDER GENERAL 3V OR MORE AP/TRUE AP/OTHER RIGHT Radiology Routine Acute pain of right shoulder 12/03/2023 4:53 PM EDT [facility] End: 01-03-2026 XR Thoracic spine AP and Lateral XR THORACIC LIMITED 2V AP/LAT Radiology Routine Mid back pain 1 Occurrences starting 12/04/2024 until 01/03/2026 [facility] Comment on above: 1 Occurrences starti ng 12/04/2024 until 01/03/2026 XR Thoracic spine AP and Lateral XR THORACIC LIMITED 2V AP/LAT Radiology Routine Mid back pain 12/04/2024 10:17 AM EDT [facility] Immunizations Immunization Date Immunization Notes Care Provider [facility] 02-25-2023 influenza virus vaccine, unspecified formulation Carolyn Ramirez APRN.TOOL 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 Work Phone: [facility] 03-09-2022 influenza, injectabl e, quadrivalent, preservative free Dr. Gray Quintana DO Work Phone: [facility] 03-09-2022 influenza, high dose seasonal, preservative-free JACKIE HAIDER ENTERPRISE INFRASTRUCTURE ARCHITECT-TOOL 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 [facility] 03-09-2022 influenza virus vaccine, unspecified formulation Lanie Love RD [facility] 03-27-2020 Influenza High-Dose Quadrivalent Dr. Gray Quintana DO Work Phone: [facility] 03-27-2020 influenza virus vaccine, unspecified formulation KEENA COFFEY MD [facility] 03-11-2018 influenza virus vaccine, unspecified formulation KEENA COFFEY MD [facility] 03-11-2018 influenza, high dose seasonal, preservative-free Dr. Gray Quintana DO Work Phone: [facility] 03-11-2018 pneumococcal polysaccharide vaccine, 23 valent KEENA COFFEY MD [facility] 01-23-2018 tetanus toxoid, redu panda diphtheria toxoid, and acellular pertussis vaccine, adsorbed KEENA COFFEY MD [facility] 01-22-2017 influenza virus vaccine, unspecified formulation KEENA COFFEY MD [facility] 01-22-2017 influenza, high dose seasonal, preservative-free Dr. Gray Quintana DO Work Phone: [facility] 01-22-2017 pneumococcal conjuga te vaccine, 13 valjuanis COFFEY MD [facility] 05-23-2012 influenza virus vaccine, unspecified formulation KEENA COFFEY MD [facility] 05-23-2012 influenza, high dose seasonal, preservative-free Dr. Gray Quintana DO Work Phone: [facility] 04-05-2007 influenza, injectabl e, quadrivalent, preservative free Dr. Gray Quintana DO Work Phone: [facility] 05-04-2003 pneumococcal polysaccharide vaccine, 23 valjuanis COFFEY MD [facility] 05-04-1997 TD(adult) unspecifie d formulation Dr. Gray Quintana DO Work Phone: [facility] 05-28-1996 tetanus toxoid, adsorbed Dr. Gray Quintana DO Work Phone: [facility] Payers Date Payer Category Payer Self-pay [id number] 2020 Private Health Insurance MMO MED ICARE SUPPLEMENT Member Subscriber Plan / Payer (Effective 2020-Present) Name: Nadja Chaudhari Relation to Subscriber: Self Name: Nadja Chaudhari Payer ID: Not on file Type: Indemnity Address: [place] [id number] 2020 Unknown [id number] 2020 Unknown [id number] 2015 Medicare [id number] 2015 Medicare [id number] 1950 Unknown [id number]. 627 1950 Unknown [id number] 2.16.840.1.026318.3.579.2. 627 1950 Unknown [id number] 2.16.840.1.725665.3.579.2. 627 1950 Unknown [id number] 2.16.840.1.454544.3.579.2. 627 1950 Unknown [id number] 2.16.840.1.609787.3.579.2. 627 1950 Unknown [id number] 2.16.840.1.854627.3.579.2. 627 1950 Unknown [id number] 2.16.840.1.203572.3.579.2. 627 Unknown [facility] *DO NOT USE* [id number] Unknown [id number] [id number]. 462 Unknown [id number] 2.16.840.1.560169.3.579.2. 462 Unknown [id number] 2.16.840.1.380310.3.579.2. 462 Unknown [id number] 2.16.840.1.564627.3.579.2. 462 Unknown [id number] 2.16.840.1.490024.3.579.2. 462 Unknown [id number] 2.16.840.1.149089.3.579.2. 462 Unknown [id number]. 462 Social History Date Type Detail Facility Start: 10-13-2020 Light tobacco smoker (finding) [facility] Sex Assigned At [facility] Start: 06-14-2021 End: 03-23-2023 Tobacco smoking status NHIS Unknown if ever smoked [facility] Start: 12-17-2018 None [facility] Start: 08-25-2019 Alone [facility] Start: 1950 Sex Assigned At Female [facility] Start: 05-10-2022 End: 05-26-2024 Tobacco smoking status Ex-smoker (finding) [facility] Start: 07-03-2022 Tobacco smoking stat us OKIS Smokes tobacco daily [facility] Start: 05-28-1973 End: 12-26-2021 History of tobacco use Cigarette Smoker [facility] Start: 07-03-2022 End: 10-24-2022 Cigarettes smoked current (pack per day) - Reported 1 [facility] Work Phone: Start: 07-03-2022 End: 05-26-2024 Tobacco use and exposure Smokeless tobacco non-user [facility] Start: 07-03-2022 End: 04-30-2024 Alcohol intake Current drinker of alcohol (finding) [facility] Start: 1950 Sex Assigned At Not on file C [facility] Start: 05-28-1973 End: 12-26-2021 History of tobacco use Current smoker [facility] Start: 10-24-2022 End: 12-06-2022 Tobacco use panel [facility] Work Phone: Start: 04-28-2012 Adult Depression Screening Assessment 0 [facility] Work Phone: Start: 05-26-2024 End: 01-12-2025 Alcoholic beverage intake Ex-drinker (finding) [facility] Start: 07-06-2005 Sex Female (finding) [facility] Goals Date Patient Goal Desired Activity /State Personal health goal Personal health goal Mental Status Date Assessment Result Facility 03-23-2023 Cognitive function Level Of Cons ciousness Awake;Alert;Appropriate [facility] Work Phone: Clinical Notes 09-17-2020 to 01-15-2025 Merari Barker MA - 01/15/2025 12:57 PM EDTTelephone Encounter - Mariya Sainz RN - 01/15/2025 9:57 AM EDTTelephone Encounter - Mariya Sainz RN - 01/15/2025 9:57 AM EDTPatient Instructions Note Date & Type Note Facility 01-15-2025 Radiology Diagnostic study note [facility] Imaging Services [address] [place] [address] Abdomen/Pelvis W IV Cont ONLY MR#: [id number] Acct: [id number] Name: NADJA CHAUDHARI Rep #: [id number] : 1950 F 74 From: Osmel Mccormick MD PCP: Dr. Gray Quintana DO Status: RE G ER Study:Abdomen/Pelvis W IV Cont ONLY Date of E xam: 01/15/25 Exam# [id number] Ordering Dr: Linda Moya PROCEDURE: ABDOMEN/PELVIS W IV CONT ONLY 01/15/2025 REASON FOR EXAM: LLQ PAIN History of possible colitis flare-ups. TECHNIQUE: ABDOMEN/PELVIS W IV CONT ONLY Coronal and Sagittal reconstruction series were provided. CONTRAST: Isovue 370 VOLUME: 100 mL One or more dose reduction techniques were used (e.g., Automated exposure control, adjustment of the mA and/or kV according to patient size, use of iterative reconstruction technique. RADIATION DOSE SUMMARY: CTDlvol: 17 mGy DLP: 1327.41 mGycm COMPARISON: Prior study dated April 25, 2023. FINDINGS: Lung bases: The lung bases are clear. Coronary artery calcification. Liver: Normal size. No mass. Gallbladder: Solitary gallstone. Spleen: Normal size. Pancreas: Diffuse fatty atrophy. Adrenals: Unremarkable Kidneys: Bilateral parapelvic cysts. Bladder: Unremarkable Reproductive Organs: Unremarkable Bowel: Sigmoid colon diverticula with wall thickening and adjacent inflammatory changes. No evidence of perforation or abscess. Appendix: Appendix is not visualized. Lymph nodes: Unremarkable. Vasculature: Mild diffuse atherosclerotic calcifications are noted. Peritoneum / Retroperitoneum: Unremarkable Bones: Degenerative changes of the spine. CT/Abdomen/Pelvis W IV Cont ONLY IMPRESSION: Findings in keeping with a non complicated sigmoid diverticulitis. Solitary gallstone. Stable bilateral parapelvic renal cysts. Reading Location: [id number] CC: Dr. Gray Quintana DO; HENRI Morales ~ Head Of Stock: Signed [facility] 01-15-2025 History of Present illness Narrative POPULATION HEALTH NAVIGATION OUTREACH Action/FYI LVM no mychart Topic Due (Y or N) Comments Medicare Wellness y PCP Follow up y Due around 03-31-25 Colorectal Cancer Screening Controlling Blood Pressure A1C HCC Flu Vaccine Care Everywhere Reviewed MyChart Activation Updated Appointment Note Reason for Outreach Care Gap/HCC or Scheduling Wellness Visits Care Gaps due: Medicare Annual Wellness Visit Follow-up Appointment Colorectal Cancer Screening Patient Contacted: Unable or unnecessary to reach patient: Left message Navigation Signature: Merari Barker MA January 15, 2025 12:57 PM documented in this encounter [facility] 01-15-2025 Telephone encounter Note Opened in error. [facility] 01-15-2025 Miscellaneous Notes Opened in error. documented in this encounter [facility] 01-14-2025 Telephone encounter Note Patient informed and verbalized understanding. Mili Segovia MA [facility] 01-14-2025 Miscellaneous Notes Patient informed and verbalized understanding. Mili Segovia MA Preliminary urine shows bacterial infection with E. Coli. Will start her on antibiotic. If I need to change based on susceptibility results will let her know. Madison Turner APRN.CNP documented in this encounter [facility] 01-14-2025 Telephone encounter Note Preliminary urine shows bacterial infection with E. Coli. Will start her on antibiotic. If I need to change based on susceptibility results will let her know. Madison Turner APRN.CNP [facility] 01-13-2025 History of Present illness Narrative Episode Visit Count: 3 Therapist That Will Accept/Oversee The Plan Of Care: Jeffrey Ryley Start of Care Date: 12/23/24 Onset Date: 10/23/24 Plan of Care Certification Date: 12/23/24 Next Certification Due Date: 02/23/25 Patient Identified by Name and Date of : Yes REHABILITATION AND SPORTS THERAPY PHYSICAL THERAPY TREATMENT NOTE ASSESSMENT: Nadja Chaudhari tolerated the session with decreased symptoms. She demonstrated improvements in flexibility of neck. The patient will continue to benefit from ongoing skilled physical therapy to progress toward set goals. PLAN FOR NEXT VISIT: Continue with traction and STM. Postural, shoulder and scapular strengthening. SUBJECTIVE: Pt reports that her arm ached a little bit last night, but feeling good today. Pt is able to sleep on her side again. Neck is still a little stiff. Feels like the exercsises are helpful. Pain: Pain Pain Location: Neck - Left Description: Stiffness, Numbness (slight numbness in pinky and ring finger) Frequency: Continuous OBJECTIVE MEASURES WITH LEVEL OF FUNCTION: Improved cervical rotation TREATMENT: Therapeutic Exercise: 1: Upper trap stretch 3x30 sec to R only 2: Levator stretch 3x30 sec to R only 3: Cervical retraction with post neck elongation 3x10, 2-3 sec holds 4: *Scapular retractions 2x10 5: Ulnar nerve glide with arm at side, fingers splayed, and wrist flexion and extension Skilled Intervention: Patient was educated in proper exercise technique and purpose for exercises. Reviewed and educated patient on additions/changes for home exercise program as above (*). Skilled judgment was used in selection of appropriate interventions. Correct performance of therapeutic exercises was facilitated with verbal and visual cuing. Manual Therapy: 1: STM to L upper trap with paraspinals with push to tolerance 2: Manual intermittent cervical traction x 10 min with pull to tolerance Skilled Intervention: Manual skills to improve joint mobility, ROM, and decrease pain. Utilized anatomy knowledge of the clinician, and assessment of patient's response to intervention. Billing Therapeutic Exercise Treatment Minutes: 23 Manual TherapyTreatment Minutes: 17 Skilled Treatment Time Minutes (timed and untimed codes): 40 Total Session Time (minutes): 40 Session Start Time : 1145 Session Stop Time : 1225 MORRO Sequeira PT documented in this encounter [facility] 01-12-2025 Instructions Madison Turner APRN.JAMI - 01/12/2025 1:27 PM EDT - I have sent your urine for culture; results should be back in about 48-72 hours. If bacteria grow, I will call in the right antibiotic. If it s negative, we will avoid unnecessary antibiotics. - Continue drinking mostly water throughout the day. Try to limit caffeine-containing drinks (iced tea, soda, lemonade) to occasional use with meals rather than all day. - Keep track of your symptoms (burning, itching, urgency). If you develop fever, chills, new back or abdominal pain, or your symptoms suddenly worsen before we have culture results, call the clinic. - Follow up with urology on February 02 at [facility] for further evaluation of your bladder and incontinence. - Let us know if you need any assistance scheduling or if your appointment details change. documented in this encounter [facility] 01-12-2025 History of Present illness Narrative 01/12/2025 Patient presents with: UTI: Symptoms continue; burning and itching, frequency, retention Recording using [employer] software for draft documentation of the visit was discussed with the patient/authorized customer account representative; all questions welcomed and answered. Patient/authorized customer account representative agreed to proceed SUBJECTIVE: This is a 74 year old that is here today for Above Complaints. Dysuria and Urinary Frequency: - Onset less than one month ago. - Completed a 3-day course of Macrobid with initial improvement, but symptoms recurred post-treatment. - Reports persistent dysuria and pruritus. - Experiences urinary frequency with a sensation of incomplete bladder emptying. - Nocturia present; denies visible hematuria, fever, chills, or abdominal pain. - Denies vaginal discharge or bleeding. - Increased caffeine intake recently, including iced tea and soda. Urinary Incontinence: - Wears a pad consistently due to urinary incontinence. - Describes incontinence as urge-related, with difficulty reaching the bathroom in time. - Nocturnal incontinence not reported. - History of a low bladder, with a planned but unperformed surgery 40 years ago. Latest Ref Rng 01/12/2025 GLUCOSE UA (POCT) Negative mg/dL Negative BILIRUBIN UA (POCT) Negative Negative KETONE UA (POCT) Negative mg/dL Negative SPECIFIC GRAVITY UA (POCT) 1.005 - 1.030 1.015 HEMOGLOBIN/BLOOD UA (POCT) Negative Moderate ! PH UA (POCT) 4.5 - 8.0 6.5 PROTEIN UA (POCT) Negative mg/dL 100 ! UROBILINOGEN UA (POCT) Normal E.U./dL 0.2 NITRITE UA (POCT) Negative Negative LEUKOCYTES UA (POCT) Negative Moderate ! COLOR UA (POCT) Yellow CLARITY UA (POCT) Cloudy Legend: ! Abnormal PAST MEDICAL HISTORY Diagnosis Date Bilateral leg edema Chronic midline low back pain with bilateral sciatica COPD (chronic obstructive pulmonary disease) (HCC) Essential hypertension HTN (hypertension) IFG (impaired fasting glucose) 12/2023 5.7% NEVA (obstructive sleep apnea) Osteopenia 02/2024 Spinal stenosis of lumbar region without neurogenic claudication Ulcerative colitis, unspecified ALLERGIES Aspirin, Ibuprofen, and Wellbutrin [Bupropion] MEDICATIONS Current Outpatient Medications Medication Sig losartan-hydroCHLOROthiazide (HYZAAR) 50-12.5 mg per tablet Take 1 tablet by mouth two times a day. fluticasone (FLONASE ALLERGY RELIEF) 50 mcg/actuation nasal spray Use 2 Sprays in each nostril once daily. Spirometers and Accessories bushra 1 Each as directed. Copd flare up, dyspnea, wheezing No current facility-administered medications for this visit. Medications and allergies reviewed by this provider. SOCIAL HISTORY SOCIAL HISTORY[1] REVIEW OF SYSTEMS All other reviewed and negative other than HPI. OBJECTIVE: BP 114/72 Pulse 88 Temp 37.1 C (98.7 F) Resp 18 Wt 107.9 kg (237 lb 12.8 oz) SpO2 96% BMI 40.82 kg/m . Vital signs reviewed by this provider. APPEARANCE Well appearing, alert, in no acute distress, well-hydrated, well nourished. EYES PERRLA, conjunctiva and sclera normal. HEART RRR with normal S1 and S2, no murmurs, no gallops, no JVD appreciated LUNG clear to auscultation. No wheezes, rhonchi or rales ABDOMEN no tenderness to palpation BACK: No CVA tenderness SKIN Skin color, texture, turgor normal, no suspicious rashes or lesions to exposed skin RSV Vaccine(1 - Risk 60-74 years 1-dose series) Never done Medicare Annual Wellness Visit Never done Advance Directive Discussion Never done Colorectal Cancer Screening due on 12/23/2024 Mammogram Screening due on 03/07/2025 Shingrix Vaccine(1 of 2) due on 06/18/2025 Influenza Vaccine(1) due on 01/26/2025 Serum Creatinine due on 10/03/2025 Depression Screening due on 12/29/2025 Anxiety Screening due on 12/29/2025 Annual PCP Team Chronic Disease Visit due on 01/12/2026 Diabetes Screening due on 10/04/2027 DTaP,Tdap,Td Vaccine(2 - Td or Tdap) due on 01/24/2028 Lipid Screening due on 07/24/2029 Bone Density Screening Completed Pneumococcal Vaccine: 50+ Completed Hepatitis C Screening Discontinued 1. UTI symptoms (R39.9) - Recent urinalysis negative for infection; current urinalysis shows hematuria, proteinuria, and leukocytes, but no nitrates. - Differential includes interstitial cystitis and overactive bladder; infection less likely but not ruled out. - Urine culture ordered; will initiate antibiotics only if culture confirms infection. - Advised to increase water intake and avoid caffeine and acidic beverages to reduce bladder irritation. - Follow-up with urology on February 02 at [facility]. - Advised to monitor for fever or worsening symptoms and to report if they occur. Madison Podlogar, ENTERPRISE INFRASTRUCTURE ARCHITECT.TOOL 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 Prescription instructions reviewed with patient as applicable. Patient advised if symptoms do not improve or if symptoms worsen sooner, to contact their primary care physician. Potential red flag symptoms discussed with the patient. Reviewed appropriate action plan to take if red flag symptoms occur. Patient agreeable to treatment plan. 61681 OVERALL COMPLEXITY Problem Complexity: Moderate Data Level: Low Risk Level: Straightforward Overall MDM complexity (2/3 must be met or exceeded): Low PROBLEMS SECTION: 1. UTI symptoms - Undiagnosed new problem with uncertain prognosis One undiagnosed new problem with uncertain prognosis (Moderate complexity) Problem complexity level: Moderate DATA SECTION: - Review of prior external note(s) from each unique source: - Review of the result(s) of each unique test: - Ordering of each unique test: Urinalysis (in-office POC, today); urine culture - 2 unique tests ordered - Assessment requiring an independent historian(s): - Independent interpretation of a test performed by another physician/other qualified health direct care provider: - Discussion of management or test interpretation with external physician/other qualified health direct care provider/appropriate source: Data complexity level: Limited; meets Category 1 with any combination of two RISKS SECTION: Lifestyle modification counseling (increase water intake, avoid caffeine/acidic beverages) - Minimal complexity Urine culture ordered (diagnostic testing) - Minimal complexity Referral to urology (routine follow-up) - Minimal complexity Risks complexity level (highest from above): Minimal [1] Social History Tobacco Use Smoking status: Former Current packs/day: 0.25 Average packs/day: 0.3 packs/day for 51.6 years (12.9 ttl pk-yrs) Types: Cigarettes Start date: 1973 Smokeless tobacco: Never Vaping Use Vaping status: Never Used Substance Use Topics Alcohol use: Not Currently Drug use: Never documented in this encounter [facility] 01-12-[address] [facility] 01-12-2025 Telephone encounter Note Reason for Conversation urination symptoms Background Patient has urology appointment on 02/02. Patient noticed this weekend she started having burning with urination and does not feel like bladder is emptying out. Disposition See PCP Within 24 Hours- Patient scheduled to see Madison today 01/12/2025 Reason for Disposition All other patients with painful urination (Exception: [1] EITHER frequency or urgency AND [2] has on-call doctor.) 1. SEVERITY: Patient states that she continues to have slight burning and itching. 2. FREQUENCY: Happens every time she urinates. 3. PATTERN: Every time she urinates. 4. ONSET: Sunday it started. 5. FEVER: Denies 6. PAST UTI: Yes, Patient was given antibiotic. 7. CAUSE: Unsure. 8. OTHER SYMPTOMS: Blood in urine, urgency, don't feel like bladder is emptying out. No Additional Information on file. Protocols Used Urination Pain - [id number] [facility] 01-12-2025 Miscellaneous Notes Reason for Conversation urination symptoms Background Patient has urology appointment on 02/02. Patient noticed this weekend she started having burning with urination and does not feel like bladder is emptying out. Disposition See PCP Within 24 Hours- Patient scheduled to see Madison today 01/12/2025 Reason for Disposition All other patients with painful urination (Exception: [1] EITHER frequency or urgency AND [2] has on-call doctor.) 1. SEVERITY: Patient states that she continues to have slight burning and itching. 2. FREQUENCY: Happens every time she urinates. 3. PATTERN: Every time she urinates. 4. ONSET: Sunday it started. 5. FEVER: Denies 6. PAST UTI: Yes, Patient was given antibiotic. 7. CAUSE: Unsure. 8. OTHER SYMPTOMS: Blood in urine, urgency, don't feel like bladder is emptying out. No Additional Information on file. Protocols Used Urination Pain - [id number] documented in this encounter [facility] 01-06-[address] [facility] 01-06-2025 History of Present illness Narrative Episode Visit Count: 2 Therapist That Will Accept/Oversee The Plan Of Care: Jeffrey Hedrick Start of Care Date: 12/23/24 Onset Date: 10/23/24 Plan of Care Certification Date: 12/23/24 Next Certification Due Date: 02/23/25 Patient Identified by Name and Date of : Yes REHABILITATION AND SPORTS THERAPY PHYSICAL THERAPY TREATMENT NOTE ASSESSMENT: Nadja Chaudhari tolerated the session with decreased symptoms. She demonstrated improvements in tightness of neck with stretching and manual therapy. The patient will continue to benefit from ongoing skilled physical therapy to progress toward set goals. PLAN FOR NEXT VISIT: Continue with traction and STM. Consider postural strengthening. SUBJECTIVE: Pt reports that her neck is better, still stiff and sore. Pt states that she would like to get back to her arm exercises. Still has numbness and tingling in L pinky and ring finger. Pt states that her L elbow is bothersome. Traction made a big difference. Pain: Pain Pain Level: 3 Pain Location: Neck - Left Description: Aching, Numbness Frequency: Continuous Post Treatment Pain Post Treatment Pain Level: Better OBJECTIVE MEASURES WITH LEVEL OF FUNCTION: Muscle knot at L proximal upper trap TREATMENT: Therapeutic Exercise: 1: Upper trap stretch 3x30 sec to R only 2: Levator stretch 3x30 sec to R only 3: Cervical retraction with post neck elongation 3x10, 2-3 sec holds 4: *Ulnar nerve glide with arm at side, fingers splayed, and wrist flexion and extension Skilled Intervention: Patient was educated in proper exercise technique and purpose for exercises. Reviewed and educated patient on additions/changes for home exercise program as above (*). Skilled judgment was used in selection of appropriate interventions. Correct performance of therapeutic exercises was facilitated with verbal and visual cuing. Manual Therapy: 1: STM to L upper trap with paraspinals with push to tolerance 2: Manual intermittent cervical traction xmin with pull to tolerance Skilled Intervention: Manual skills to improve joint mobility, ROM, and decrease pain. Utilized anatomy knowledge of the clinician, and assessment of patient's response to intervention. Billing Therapeutic Exercise Treatment Minutes: 27 Manual TherapyTreatment Minutes: 17 Skilled Treatment Time Minutes (timed and untimed codes): 44 Total Session Time (minutes): 44 Session Start Time : 1527 Session Stop Time : 1611 MORRO Sequeira PT documented in this encounter [facility] 01-05-2025 Telephone encounter Note Patient was made aware of the results. Patient verbalizes understanding. Transferred to schedule Linda Beck Ma [facility] 01-05-2025 Miscellaneous Notes Patient was made aware of the results. Patient verbalizes understanding. Transferred to schedule Linda Beck Ma ----- Message from Yarely Tijerina sent at 12/30/2024 4:54 PM EDT ----- Please let patient know that there is no infection. Urine had some contaminants but no infection. She has had blood in her urine that has been present for the last 2 years. I will consult urology. Left message to call and speak with nurse. Please let patient know that there is no infection. Urine had some contaminants but no infection. She has had blood in her urine that has been present for the last 2 years. I will consult urology. documented in this encounter [facility] 01-05-2025 Telephone encounter Note ----- Message from Yarely Tijerina sent at 12/30/2024 4:54 PM EDT ----- Please let patient know that there is no infection. Urine had some contaminants but no infection. She has had blood in her urine that has been present for the last 2 years. I will consult urology. [facility] 12-31-2024 Telephone encounter Note Left message to call and speak with nurse. [facility] 12-30-2024 Progress note Formatting of t his note might be different from the original. Please let patient know that there is no infection. Urine had some contaminants but no infection. She has had blood in her urine that has been present for the last 2 years. I will consult urology. [facility] 12-29-2024 Telephone encounter Note Patient returned telephone call with voicemail on 12/29/2024 at 1356. [facility] 12-29-2024 Miscellaneous Notes Patient returned telephone call with voicemail on 12/29/2024 at 1356. Patient contacted Pain Management with voicemail on 12/29/2024 at 1310 stating that she is currently being treated for a UTI with antibiotics. Patient requesting return telephone call at [phone]. Macrobid prescribed from 12/29/2024 - 01/01/2025. Attempted to contact patient via telephone without success. Left voicemail requesting return phone call. documented in this encounter [facility] 12-29-2024 Telephone encounter Note Patient contacted Pain Management with voicemail on 12/29/2024 at 1310 stating that she is currently being treated for a UTI with antibiotics. Patient requesting return telephone call at [phone]. Macrobid prescribed from 12/29/2024 - 01/01/2025. Attempted to contact patient via telephone without success. Left voicemail requesting return phone call. [facility] 12-29-2024 Instructions Yarely Tijerina APRN.JAMI - 12/29/2024 11:03 AM EDT - Start the prescribed course of Macrobid antibiotic today and take it exactly as directed for 3 days to treat your urinary symptoms. - Provide a urine sample for culture today so we can identify any infection and tailor your treatment. - Further treatment will be guided by your urine culture results once they are available. documented in this encounter [facility] 12-29-[address] [facility] 12-29-2024 History of Present illness Narrative This is a 74 year old female who presents today with: No chief complaint on file. HISTORY OF PRESENT ILLNESS: Nadja Chaudhari is a 74 year old female. No chief complaint on file. Nadja Chaudhari is a 74-year-old female with a history of depression, presenting with dysuria, urinary frequency, and urinary retention. Dysuria, Urinary Frequency, and Urinary Retention: - Increased urinary frequency, nocturia x8-9 times last night. - Dysuria described as itching rather than burning. - Persistent sensation of incomplete bladder emptying. - Denies fever, chills, or pelvic pressure. - Increased fluid intake, primarily water; recent consumption of lemon juice. - Missed doses of antihypertensive medication containing a diuretic. Depression: - History of depression; denies hopelessness. - Family history of manic depression in father and brother. - Reports anxiety, irritability, and frequent worrying. - Decreased appetite in hot weather; maintains good nutrition. - Difficulty concentrating; family history of ADHD. - Occasional transient suicidal thoughts, denies dwelling on them. - Reluctant to take medication for depression. PAST MEDICAL HISTORY: PAST MEDICAL HISTORY Diagnosis Date Bilateral leg edema Chronic midline low back pain with bilateral sciatica COPD (chronic obstructive pulmonary disease) (HCC) Essential hypertension HTN (hypertension) IFG (impaired fasting glucose) 12/2023 5.7% NEVA (obstructive sleep apnea) Osteopenia 02/2024 Spinal stenosis of lumbar region without neurogenic claudication Ulcerative colitis, unspecified PAST SURGICAL HISTORY Procedure Laterality Date LAMINECTOMY W/O FFD 1/2 VERT SEG LUMBAR Laminectomy, lumbar REPAIR ROTATOR CUFF,ACUTE TONSILLECTOMY PRIMARY/SECONDARY <AGE 12 Tonsillectomy ALLERGIES Aspirin, Ibuprofen, and Wellbutrin [Bupropion] MEDICATIONS Current Outpatient Medications Medication Sig losartan-hydroCHLOROthiazide (HYZAAR) 50-12.5 mg per tablet Take 1 tablet by mouth two times a day. fluticasone (FLONASE ALLERGY RELIEF) 50 mcg/actuation nasal spray Use 2 Sprays in each nostril once daily. cyclobenzaprine (FLEXERIL) 10 mg tablet Take 1 tablet by mouth three times a day as needed for pain. This can make you drowsy. Spirometers and Accessories bushra 1 Each as directed. Copd flare up, dyspnea, wheezing No current facility-administered medications for this visit. FAMILY HISTORY Problem Relation Age of Onset No Known Problems Mother Colon Cancer Father COPD Sister Lung Cancer Sister COPD Sister Diabetes Brother Alcohol abuse Brother COPD Brother other (Varicose veins) Brother other (Motorcycle accident) Brother Alzheimer's Disease Maternal Grandmother No Known Problems Maternal Grandfather Colon Cancer Paternal Grandmother No Known Problems Paternal Grandfather Cancer Other Social History Tobacco Use Smoking status: Former Current packs/day: 0.25 Average packs/day: 0.3 packs/day for 51.6 years (12.9 ttl pk-yrs) Types: Cigarettes Start date: 1973 Smokeless tobacco: Never Vaping Use Vaping status: Never Used Substance Use Topics Alcohol use: Not Currently Drug use: Never REVIEW OF SYSTEMS Constitutional: (+) insomnia, (-) fever, (-) chills Genitourinary: (+) urinary frequency, (+) incomplete bladder emptying, (+) dysuria, (+) urethral pruritus, (-) flank pain, (-) pelvic pressure Psychiatric: (+) depressed mood, (+) anxiety, (+) irritability, (+) excessive worry, (+) impaired concentration, (+) passive suicidal ideation EXAM: BP 120/82 Pulse 88 Temp 36.2 C (97.2 F) (Right Tympanic) Wt 107.5 kg (237 lb) SpO2 95% BMI 40.68 kg/m PHYSICAL EXAM: Physical Exam Vitals reviewed. Constitutional: Appearance: She is obese. HENT: Head: Normocephalic. Cardiovascular: Rate and Rhythm: Normal rate and regular rhythm. Pulses: Normal pulses. Heart sounds: Normal heart sounds. Pulmonary: Effort: Pulmonary effort is normal. Breath sounds: Normal breath sounds. Abdominal: General: Bowel sounds are normal. Palpations: Abdomen is soft. Tenderness: There is no abdominal tenderness. There is no guarding or rebound. Skin: General: Skin is warm and dry. Neurological: General: No focal deficit present. Mental Status: She is alert and oriented to person, place, and time. Psychiatric: Mood and Affect: Mood normal. Behavior: Behavior normal. LABS: Urine dip with moderate amt. Leukocytes, sending for culture ASSESSMENT/PLAN: 1. Dysuria (R30.0) - Acute dysuria with urinary frequency, nocturia, and incomplete bladder emptying; no fever, chills, or flank pain. - Differential includes UTI vs. interstitial cystitis; recent citrus intake may be contributing. - Ordered urine culture. - Start Macrobid for 3 days pending culture results. Has LESI scheduled for . - Educated on potential for citrus and acidic beverages to cause bladder irritation mimicking UTI symptoms. 2. Screening for depression (Z13.31) 3. Encounter for screening examination for other mental health and behavioral disorders (Z13.39) - Positive family history of manic depression; patient endorses chronic depression, anxiety, and occasional transient suicidal thoughts. - Completed depression and mental health screening. - Patient does not desire medication for depression at this time. Discussed treatment plan and patient voices understanding. Patient's questions answered appropriately. Medications and potential side effects were discussed and patient voices understanding. Return to the office as scheduled or as needed for worsening/no improvement. ADIS Arboleda, TOOL 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 documented in this encounter [facility] 12-29-[address] [facility] 12-29-2024 History of Present illness Narrative POPULATION HEALTH NAVIGATION OUTREACH Action/FYI updated appointment note no mychart Topic Due (Y or N) Comments Medicare Wellness y PCP Follow up Colorectal Cancer Screening y Controlling Blood Pressure A1C HCC Flu Vaccine Care Everywhere Reviewed MyChart Activation Updated Appointment Note Reason for Outreach Care Gap/HCC or Scheduling Wellness Visits Care Gaps due: Medicare Annual Wellness Visit Colorectal Cancer Screening Patient Contacted: Unable or unnecessary to reach patient: Unable to leave message Updated appointment notes Navigation Signature: Merari Barker MA December 29, 2024 9:18 AM documented in this encounter [facility] 12-23-[address] [facility] 12-23-2024 History of Present illness Narrative Images from the original note were not included. Episode Visit Count: 1 Therapist That Will Accept/Oversee The Plan Of Care: Jeffrey Hedrick Start of Care Date: 12/23/24 Onset Date: 10/23/24 Plan of Care Certification Date: 12/23/24 Next Certification Due Date: 02/23/25 Patient Identified by Name and Date of : Yes REHABILITATION AND SPORTS THERAPY PHYSICAL THERAPY EVALUATION PLAN OF CARE: Assessment: Nadja Chaudhari presents with chief complaint of L sided neck pain and radicular symptoms that interferes with bending, heavy exertion, lifting, physical activities, sleeping, reaching behind back, reaching overhead, use hand with arm at shoulder level . The patient presents with impairments in ADL's, overall function, range of motion, symptom management, and tissue tenderness. PROMIS (Patient-Reported Outcomes Measurement Information System) scores were reviewed and identified as a rehabilitation concern. Prognosis for therapy is Fair due to: clinical presentation, multiple co- morbidities, advanced age, chronic nature of impairments, limited tolerance to activity . The patient will benefit from skilled therapy services to meet the goals established for this plan of care as noted below. Goals for Episode of Care: established 12/23/24 Independent in a Home Exercise Program. Patient will decrease pain rating by 2 points to meet minimal clinical important difference for numeric pain rating scale. Restore pain free cervical ROM to WNL to allow for decreased pain. Sleep throughout the night without pain/symptoms. Maintain proper sitting posture throughout the session to allow for decreased pain Time Frame for Goals and Treatment : 02/23/25 Planned Interventions, Frequency, and Duration: Current Frequency: 1x/week Duration: 8 weeks Total Number of Visits Planned: 8 Planned Treatment Interventions: Therapeutic exercise (51593), Neuromuscular re-education (47221), Manual therapy (40595), Therapeutic activities (74695), Self-retirement management (25021), Patient/Family/Caregiver Education, Body Mechanics Training PLAN FOR NEXT VISIT: Continue traction, gentle manual work to L paraspinals, assess HEP Patient demonstrates good understanding of plan of care and treatment. The above goals and plan of care were discussed and agreed upon by patient/family. SUBJECTIVE: Neck pain for years with recent exacerbation after some simple arm exercises. Notes that she gets pain down into the shoulder blade and down the arm to the 4th and 5th digits. Patient describes pain as a deep ache. Hurts all the time, but especially bothers her at night. Patient does note dropping things more lately. Patient has tried all kinds of creams and these have not helped. Functional Limitations: bending, heavy exertion, lifting, physical activities, sleeping, reaching behind back, reaching overhead, use hand with arm at shoulder level Prior Level of Function: Independent without limitations Intake Information: Prescription present Red Flags Vertebral Fracture Red Flags: Female, Age >70 Vertebral Fracture Clinical Reasoning: Proceed with caution due to the above (1-2) risk factors Cancer Red Flags: Night pain at rest, Age >50 or <20 Cancer Clinical Reasoning: Proceed with caution Infection Clinical Reasoning: No identified risk factors. Cervical Arterial Dysfunction Clinical Reasoning: No identified risk factors Cervical Myelopathy: Age > 45 yo Red Flags - Cervical Cancer Red Flags: Night pain at rest, Age >50 or <20 Cancer Clinical Reasoning: Proceed with caution Infection Clinical Reasoning: No identified risk factors. Cervical Arterial Dysfunction Clinical Reasoning: No identified risk factors Cervical Myelopathy: Age > 45 yo Pain: Pain Pain Level: 10 Pain Location: Neck - Left Description: Aching, Numbness Frequency: Continuous Post Treatment Pain Post Treatment Pain Level: 4 PROMIS Scales 11/05/2024 10/24/2022 Higher is Better Phys Func - T Score 38 (moderate dysfunction) 41 (mild dysfunction) Phys Func - Percentile 12 18 Self-Eff Symptom - T Score 39 (Low) Self-Eff Symptom - Percentile 14 Proxy-reported 11/05/2024 10/24/2022 Lower is Better Pain Interference - T Score 66 (moderate) 64 (moderate) Pain Interference - Percentile 5 8 Proxy-reported T-Score and Percentile Interpretation T-scores: mean of general population = 50. 5 points is clinically meaningfully difference Percentiles provide an indication of how the patient's score ranks in relation to the general population. Higher percentile rankings indicate better function/quality of life. 50th percentile is the average of the general population and indicates half of respondents had a worse score. OBJECTIVE MEASURES WITH LEVEL OF FUNCTION: Reflexes - Upper Extremity R Brachioradialis : 1+ R Biceps: 1+ R Triceps: 1+ L Brachioradialis : 3+ L Biceps: 3+ L Triceps: 2+ Reflexes - Lower Extremity R Patellar: 2+ R Achilles: 2+ L Patellar: 2+ L Achilles: 2+ Cervical Spine ROM Cervical ROM : Limitation AROM Cervical Flexion AROM: Minimal limitation, End range pain Cervical Extension AROM: Moderate limitation, Peripheralizing Cervical Side-Bend Right AROM: Minimal limitation, End range pain Cervical Side-Bend Left AROM: Minimal limitation, End range pain Cervical Rotation Right AROM: Minimal limitation, End range pain Cervical Rotation Left AROM: Minimal limitation, Peripheralizing UE and Cervical Strength R UE Strength: 4+/5 L UE Strength: 4+/5 Special Tests - Cervical Cervical Special Tests: Cervical Compression, Cervical Distraction, Quadrant, Spurling Cervical Compression: Positive Cervical Distraction: Positive Quadrant: Left Positive Spurling: Left Positive Education: Education Learning/educational needs: Home exercise program, Plan of Care, Posture Education Provided: Yes, see treatment interventions for education provided Education Provided To: Patient Education Mode/Type: Demonstration, Explanation/Discussion, Literature/Printed Materials Response to Education/Teach Back: States/Identifies TREATMENT: PT Treatment Interventions: Therapeutic Exercise, Self-Custodial Management, Manual Therapy Evaluation Therapeutic Exercise: 1: *Cervical retraction with post neck elongation 3x10, 2-3 sec holds 2: *Upper trap stretch 3x30 sec to R only 3: *Levator stretch 3x30 sec to R only Skilled Intervention: Patient was educated in proper exercise technique and purpose for exercises. Skilled judgment was used in selection of appropriate interventions. Provided written instruction for home exercise program to facilitate proper performance and compliance. Correct performance of therapeutic exercises was facilitated with verbal, visual, and tactile cuing. Manual Therapy: 1: STM to L upper trap with paraspinals with push to tolerance 2: Manual cervical traction x7 min with pull to tolerance Skilled Intervention: Manual skills to improve joint mobility, ROM, and decrease pain. Utilized anatomy knowledge of the clinician, and assessment of patient's response to intervention. Self-Custodial Management: 1: Reviewed imaging and discussed rehab implications Skilled Intervention: Skilled judgment in the selection of proper modification for activity of daily living/home management based on clinical presentation, deficits, and needs. Reviewed patient specific diagnosis in relation to activities of daily living/home management. Activity progression based on professional judgement. Billing * Evaluation Low Complexity: 1 Unit Therapeutic Exercise Treatment Minutes: 5 Manual TherapyTreatment Minutes: 12 Self-Care/Home Management Treatment Minutes: 7 Total Session Time (minutes): 45 Session Start Time : 1003 Session Stop Time : 1048 Jeffrey Hedrick PT Program_ID:[id number] Access Code: [email or web address] URL: [email or web address] Date: 12-23-2024 Prepared By: Jeffrey Hedrick Program Notes Exercises - Seated Chin Tuck with Neck Elongation - 3 x daily - 7 x weekly - 1 sets - 10 reps - Seated Neck Sidebending Stretch - 3 x daily - 7 x weekly - 1 sets - 3 reps - Gentle Levator Scapulae Stretch - 3 x daily - 7 x weekly - 1 sets - 3 reps documented in this encounter [facility] 12-16-2024 Telephone encounter Note Patient notified of results and provider's instructions. Patient verbalizes understanding. Toni Santos LPN [facility] 12-16-2024 Miscellaneous Notes Patient notified of results and provider's instructions. Patient verbalizes understanding. Toni Santos LPN Xray elbow is normal. Xray of neck/back shows moderated to severe arthritis. Continue with Physical Therapy. documented in this encounter [facility] 12-16-2024 Telephone encounter Note Xray elbow is normal. Xray of neck/back shows moderated to severe arthritis. Continue with Physical Therapy. [facility] Work Phone: 12-15-2024 Telephone encounter Note Patient contacted by phone and informed of Dr. Lopez results and recommendations. Patient did not have any other questions or needs at this time.Tabby Collado RN [facility] 12-15-2024 Miscellaneous Notes Patient contacted by phone and informed of Dr. Lopez results and recommendations. Patient did not have any other questions or needs at this time.Tabby Collado RN Patient calling in asking about her results from her MRI that was completed on 11/11/24. She has not heard anything regarding the imaging. Please review and advise patient. Molly Payne December 11, 2024 10:44 AM documented in this encounter [facility] 12-11-2024 Telephone encounter Note Patient calling in asking about her results from her MRI that was completed on 11/11/24. She has not heard anything regarding the imaging. Please review and advise patient. Molly Payne December 11, 2024 10:44 AM [facility] 12-09-2024 Telephone encounter Note Pt notified of orders for PT. Pt transferred to PSS to schedule. Gianna Choudhury LPN [facility] 12-09-2024 Miscellaneous Notes Pt notified of orders for PT. Pt transferred to PSS to schedule. Gianna Choudhury LPN Called and left message on patients voicemail to return call to the office and ask to speak with a FM triage nurse. Nereida Mckenna MA Please let patient know I have placed an order for PT. Patient reports the Message Therapy order written for her by recent provider, will not be covered by insurance. She is asking if provider would be agreeable to placing a different type of therapy order for her, for her neck pain. Call pt with update. Mariya Sainz RN documented in this encounter [facility] 12-08-2024 Telephone encounter Note Called and left message on patients voicemail to return call to the office and ask to speak with a FM triage nurse. Nereida Mckenna MA [facility] 12-08-2024 Telephone encounter Note Please let patient know I have placed an order for PT. [facility] 12-08-2024 Telephone encounter Note Patient reports the Message Therapy order written for her by recent provider, will not be covered by insurance. She is asking if provider would be agreeable to placing a different type of therapy order for her, for her neck pain. Call pt with update. Mariya Sainz RN [facility] 12-04-[address] [facility] 12-04-2024 History of Present illness Narrative Chief Complaint Patient presents with: Neck Pain HPI Nadja Chaudhari is a 74 year old female who presents here today for Above Complaints. Patient presents for left neck and shoulder pain that has worsened over the last month. Pain described as tightness and soreness. Denies any injury, states that she was doing gentle working out. States that she has a history of stiffness and soreness to the neck, and is a left side sleeper. Wakes up sometimes with numbness/tingling in the 4th and 5th fingers of bilateral hands that resolves as the day goes on. Tenderness to palpation and pain of outer elbow that is described as aching, hx of a shital in the upper arm. Denies any worsening Shortness of Breath, jaw pain, chest pain, palpitations, N/V. Saw a chiropractor a few days ago with minimal relief. Took some leftover flexeril and tramadol once daily that took the edge off. States that she has sleep apnea and if she takes too much relaxer's it can worsen her breathing, faint expiratory wheezing heard on exam to posterior lungs. Has hx of DDD of the lumbar spine and left rotator cuff repair with shital in her left arm. Past medical history, appointments, medications, allergies reviewed. Previous Medical History PAST MEDICAL HISTORY Diagnosis Date Bilateral leg edema Chronic midline low back pain with bilateral sciatica COPD (chronic obstructive pulmonary disease) (HCC) Essential hypertension HTN (hypertension) IFG (impaired fasting glucose) 12/2023 5.7% NEVA (obstructive sleep apnea) Osteopenia 02/2024 Spinal stenosis of lumbar region without neurogenic claudication Ulcerative colitis, unspecified Previous Surgical History PAST SURGICAL HISTORY Procedure Laterality Date LAMINECTOMY W/O FFD 05/29 VERT SEG LUMBAR Laminectomy, lumbar REPAIR ROTATOR CUFF,ACUTE TONSILLECTOMY PRIMARY/SECONDARY <AGE 12 Tonsillectomy Family History FAMILY HISTORY Problem Relation Age of Onset No Known Problems Mother Colon Cancer Father COPD Sister Lung Cancer Sister COPD Sister Diabetes Brother Alcohol abuse Brother COPD Brother other (Varicose veins) Brother other (Motorcycle accident) Brother Alzheimer's Disease Maternal Grandmother No Known Problems Maternal Grandfather Colon Cancer Paternal Grandmother No Known Problems Paternal Grandfather Cancer Other Patient Allergies ALLERGIES Allergen Reactions Wellbutrin [Bupropi* GI Upset caused some gi upset (abdominal pain and gas) dry mouth, and sore throat. Current Medications Current Outpatient Medications on File Prior to Visit Medication Sig losartan-hydroCHLOROthiazide (HYZAAR) 50-12.5 mg per tablet Take 1 tablet by mouth two times a day. fluticasone (FLONASE ALLERGY RELIEF) 50 mcg/actuation nasal spray Use 2 Sprays in each nostril once daily. Mesalamine (PENTASA) 500 mg CR capsule Take 500 mg by mouth four times daily. (Patient not taking: Reported on 11/05/2024) cyclobenzaprine (FLEXERIL) 10 mg tablet Take 1 tablet by mouth three times a day as needed for pain. This can make you drowsy. (Patient not taking: Reported on 11/05/2024) Spirometers and Accessories bushra 1 Each as directed. Copd flare up, dyspnea, wheezing No current facility-administered medications on file prior to visit. Social History Social History Tobacco Use Smoking status: Former Current packs/day: 0.25 Average packs/day: 0.3 packs/day for 51.5 years (12.9 ttl pk-yrs) Types: Cigarettes Start date: 1973 Smokeless tobacco: Never Vaping Use Vaping status: Never Used Substance Use Topics Alcohol use: Not Currently Drug use: Never Review of Symptoms REVIEW OF SYSTEMS SEE HPI EXAM: BP 119/81 Pulse 90 Wt 110 kg (242 lb 8.1 oz) BMI 41.63 kg/m General Appearance: Well appearing, alert, in no acute distress, well-hydrated, well nourished.. Head: Normocephalic, no masses, lesions, tenderness or abnormalities. Neck: Supple, no adenopathy; thyroid symmetric, normal size. ROM decreased when looking up and turning head to the left due to pain. Back:motor and sensory appear to be normal, tenderness to left shoulder, and neck muscles. Denies any tenderness to cervical spine Lungs: Lungs clear to auscultation. No wheezing, rhonchi, rales. Positive findings: faint wheezing to posterior lobes Denies feeling Shortness of Breath Heart: RRR without murmur, gallop, or rubs. No ectopy. Extremities: No deformities, edema, skin discoloration, clubbing or cyanosis. Good capillary refill. , Pulses: 2+, Positive findings: joint location: on left elbow pain, painful movement, and tender to palpation. Peripheral Pulses: Normal, Capillary refill <2secs, strong peripheral pulses. Health Maintenance List RSV Vaccine(1 - Risk 60-74 years 1-dose series) Never done Medicare Annual Wellness Visit Never done Advance Directive Discussion Never done Depression Screening due on 10/16/2024 Anxiety Screening due on 10/16/2024 Colorectal Cancer Screening due on 12/23/2024 Mammogram Screening due on 03/07/2025 Covid-19 Vaccine( season) due on 04/30/2025 Shingrix Vaccine(1 of 2) due on 06/18/2025 Influenza Vaccine(1) due on 01/26/2025 Annual PCP Team Chronic Disease Visit due on 10/03/2025 Serum Creatinine due on 10/03/2025 Diabetes Screening due on 10/04/2027 DTaP,Tdap,Td Vaccine(2 - Td or Tdap) due on 01/24/2028 Lipid Screening due on 07/24/2029 Bone Density Screening Completed Pneumococcal Vaccine: 50+ Completed Hepatitis C Screening Discontinued ASSESSMENT/PLAN: 1. Left elbow pain - ICD9: 719.42, ICD10: M25.522 (primary diagnosis) - XR ELBOW GENERAL 2V AP/LAT LEFT - TRAMADOL 50 MG TABLET 2. Neck pain - ICD9: 723.1, ICD10: M54.2 - XR CERVICAL 2V FLEX/EXT - CONSULT TO MASSAGE THERAPY - TRAMADOL 50 MG TABLET 3. Mid back pain - ICD9: 724.5, ICD10: M54.9 - XR THORACIC LIMITED 2V AP/LAT - CONSULT TO MASSAGE THERAPY - TRAMADOL 50 MG TABLET 4. Hypertension, essential - ICD9: 401.9, ICD10: I10 - Controlled - Continue current medications - Recommend home blood pressure monitoring, to bring results to next visit - Encouraged sodium restriction, DASH or Mediterranean diet - Recommend regular aerobic exercise - LOSARTAN 50 MG-HYDROCHLOROTHIAZIDE 12.5 MG TABLET Jason Francois APRN.TOOL 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 documented in this encounter [facility] 12-03-2024 Telephone encounter Note Patient call in for neck pain x 1 month. Patient saw chiropractor today and he thinks she has pinched nerve. Nurse Triage assessment completed with protocol recommending for disposition of see PCP in 24 hours. Patient scheduled with Jason tomorrow morning 12/04/2024. Care advice reviewed with patient, patient stated understanding. Patient advised to contact office or seek evaluation in urgent care or ER if symptoms persist or gets worse. Reason for Disposition Numbness in an arm or hand (i.e., loss of sensation) Answer Assessment - Initial Assessment Questions 1. ONSET: Has been going for over a month 2. LOCATION: Upper Neck; Numbness and tingling to left arm 3. PATTERN Constant 4. SEVERITY: Patient rates pain 9 out of 10. 5. RADIATION: Down left arm 6. CORD SYMPTOMS: Numbness to Left arm 7. CAUSE: Unsure 8. NECK OVERUSE: Denies 9. OTHER SYMPTOMS: Denies other symptoms Protocols used: Neck Pain or [id number] [facility] 12-03-2024 Miscellaneous Notes Patient call in for neck pain x 1 month. Patient saw chiropractor today and he thinks she has pinched nerve. Nurse Triage assessment completed with protocol recommending for disposition of see PCP in 24 hours. Patient scheduled with Jason tomorrow morning 12/04/2024. Care advice reviewed with patient, patient stated understanding. Patient advised to contact office or seek evaluation in urgent care or ER if symptoms persist or gets worse. Reason for Disposition Numbness in an arm or hand (i.e., loss of sensation) Answer Assessment - Initial Assessment Questions 1. ONSET: Has been going for over a month 2. LOCATION: Upper Neck; Numbness and tingling to left arm 3. PATTERN Constant 4. SEVERITY: Patient rates pain 9 out of 10. 5. RADIATION: Down left arm 6. CORD SYMPTOMS: Numbness to Left arm 7. CAUSE: Unsure 8. NECK OVERUSE: Denies 9. OTHER SYMPTOMS: Denies other symptoms Protocols used: Neck Pain or [id number] documented in this encounter [facility] 11-25-[address] [facility] 11-25-2024 History of Present illness Narrative POPULATION HEALTH NAVIGATION OUTREACH Action/FYI Updated appointment notes Topic Due (Y or N) Comments Medicare Wellness y PCP Follow up Colorectal Cancer Screening y Controlling Blood Pressure A1C HCC Flu Vaccine Care Everywhere Reviewed MyChart Activation Updated Appointment Note Reason for Outreach Care Gap/HCC or Scheduling Wellness Visits Care Gaps due: Medicare Annual Wellness Visit Colorectal Cancer Screening Patient Contacted: Unable or unnecessary to reach patient: Patient already scheduled Updated appointment notes Navigation Signature: Merari Barker MA November 25, 2024 3:17 PM documented in this encounter [facility] 11-25-2024 Telephone encounter Note Injection order signed off [facility] Work Phone: 11-25-2024 Miscellaneous Notes Injection order signed off Dr. Mo reviewed patient's lumbar MRI. Lumbar MRI shows: Multilevel degenerative disc disease (wear and tear) Spinal stenosis (narrowing of the spinal canal placing pressure on the cord and nerves) at L3-4 Foraminal stenosis (narrowing where the nerves exit the spine) at L4-5 Significant muscle atrophy (weakness) of the lower back Dr. Mo recommend an L4-5 lumbar epidural steroid injection. Injection order pended for provider review. Routing to provider. Office to contact patient via telephone once injection order placed. documented in this encounter [facility] 11-25-[address] Mo reviewed patient's lumbar MRI. Lumbar MRI shows: Multilevel degenerative disc disease (wear and tear) Spinal stenosis (narrowing of the spinal canal placing pressure on the cord and nerves) at L3-4 Foraminal stenosis (narrowing where the nerves exit the spine) at L4-5 Significant muscle atrophy (weakness) of the lower back Dr. Mo recommend an L4-5 lumbar epidural steroid injection. Injection order pended for provider review. Routing to provider. Office to contact patient via telephone once injection order placed. [facility] 11-20-2024 History of Present illness Narrative Radiology Service Progress Note PATIENT NAME: Nadja Chaudhari DATE OF SERVICE: November 20, 2024 TIME: 1:14 PM PATIENT IDENTITY VERIFICATION COMPLETED USING TWO (2) IDENTIFIERS: Name and Date of confirmed by patient verbally. FALL SCREENING: Has the patient had 2 falls in the last year or 1 fall with injury or currently using an Ambulatory Assistive Device (Walker, Cane, Wheelchair, Crutches, etc.)? No PATIENT GENDER DATA: Assigned female at . status: : No status: NO. PATIENT RELEVANT IMPLANT DATA REVIEWED: Yes PATIENT PRESENTS WITH AN IMPLANTABLE OR ATTACHED ZOOLOGY TEACHER: No RADIOLOGY DEPARTMENT: MR; Exam(s) Completed: Spine: Lumbar spine. Aromatherapy Administered: No PERIPHERAL IV DATA: Not applicable SIGNED BY: RT Aishwarya(R) November 20, 2024 1:14 PM documented in this encounter [facility] 11-20-[address] [facility] 11-18-2024 Instructions Dominick Hernandez APRN.CNP - 11/18/2024 12:11 PM EDT Continue Albuterol as needed. Please let us know if you feel symptoms start to worsen. I would recommend resuming Symbicort. Keep up with your efforts to lose weight! documented in this encounter [facility] 11-18-2024 History of Present illness Narrative Images from the original note were not included. Pulmonary Medicine Patients name: Nadja Chaudhari PCP: Gray Quintana DO CC: follow-up HPI: Nadja Chaudhari is a 74 year old female former less than [id number]-[id number] smoker quitting in 2021 with PMH significant for morbid obesity, UC, CKD, HTN, severe NEVA intolerant of CPAP, lung nodules and asthma COPD overlap syndrome. CHANI 04/2024. Reported stable respiratory symptoms and had stopped using Symbicort. Current inhaled therapy with PRN Albuterol. She presents today for follow-up. Since her last visit, she reports overall feeling well. She will occasionally experience allergy symptoms with sinus congestion but Flonase is very helpful. She stopped using oxygen at night as the concentrator kept blowing her breaker and the noise from the machine was problematic. Abel has since picked it up. Nitric oxide was updated today and is WNL. Today, patient occasional dry cough and wheezing, typically with hot, humid weather. Denies chest tightness. Denies significant dyspnea at rest or with exertion. She reports being fatigued often. No fevers, chills, or night sweats. No unintended weight loss. No recent hospitalizations or ED visits or upper respiratory infections. DME: [employer] 2 L at night, no longer using PAST MEDICAL HISTORY Diagnosis Date Bilateral leg edema Chronic midline low back pain with bilateral sciatica COPD (chronic obstructive pulmonary disease) (HCC) Essential hypertension HTN (hypertension) IFG (impaired fasting glucose) 12/2023 5.7% NEVA (obstructive sleep apnea) Osteopenia 02/2024 Spinal stenosis of lumbar region without neurogenic claudication Ulcerative colitis, unspecified Allergies: Wellbutrin [Bupropi* GI Upset Comment:caused some gi upset (abdominal pain and gas) dry mouth, and sore throat. Medication List Accurate as of November 17, 2024 8:37 PM. If you have any questions, ask your nurse or doctor. CONTINUE taking these medications cyclobenzaprine 10 mg tablet Commonly known as: FLEXERIL Take 1 tablet by mouth three times a day as needed for pain. This can make you drowsy. fluticasone 50 mcg/actuation nasal spray Commonly known as: FLONASE ALLERGY RELIEF Use 2 Sprays in each nostril once daily. losartan-hydroCHLOROthiazide 50-12.5 mg per tablet Commonly known as: HYZAAR Take 1 tablet by mouth two times a day. Mesalamine 500 mg CR capsule Commonly known as: PENTASA Spirometers and Accessories Bushra 1 Each as directed. Copd flare up, dyspnea, wheezing DATA: I personally reviewed and analyzed all labs, radiographs and available pulmonary function testing Oral Exhaled Nitric Oxide measurement (Previous Encounters) Test Date Oral Exhaled Nitric Oxide (ppb) 11/18/2024 12.0 NAME: Alexandra Soliz, MERCHANDISING STOCK ASSOCIATE PATIENT NAME: Nadja Chaudhari DATE: November 18, 2024 TIME: 11:18 AM PFT: 01/2024 Spirometry is normal. FVL conformation is obstructive. Lung volumes are normal. The diffusion capacity (uncorrected for hemoglobin) is normal. Labs: WBC (k/uL) Date Value 10/03/2024 7.22 RBC (m/uL) Date Value 10/03/2024 4.62 Hemoglobin (g/dL) Date Value 10/03/2024 13.1 Hematocrit (%) Date Value 10/03/2024 41.1 Platelet Count (k/uL) Date Value 10/03/2024 156 MPV (fL) Date Value 10/03/2024 10.7 Neutrophils % (%) Date Value 10/03/2024 42.8 Eosinophils % (%) Date Value 10/03/2024 2.8 Basophils % (%) Date Value 10/03/2024 0.3 Abs Neut (k/uL) Date Value 10/03/2024 3.09 Abs [place] (k/uL) Date Value 10/03/2024 0.55 Abs Eosin (k/uL) Date Value 10/03/2024 0.20 Abs Baso (k/uL) Date Value 10/03/2024 <0.03 Review of Systems Constitutional: Negative for activity change, appetite change and unexpected weight change. HENT: Negative for congestion, mouth sores, postnasal drip and sinus pain. Respiratory: Positive for cough and wheezing. Negative for chest tightness and shortness of breath. Cardiovascular: Positive for leg swelling (chronic). Negative for chest pain and palpitations. Allergic/Immunologic: Negative for environmental allergies. Neurological: Negative for dizziness, weakness and light-headedness. BP 132/84 Pulse 83 Resp 17 Wt 108.4 kg (239 lb) SpO2 94% BMI 41.02 kg/m Physical Exam Vitals reviewed. Constitutional: General: She is not in acute distress. Appearance: Normal appearance. She is obese. She is not ill-appearing. HENT: Head: Normocephalic. Mouth/Throat: Mouth: Mucous membranes are moist. Pharynx: No oropharyngeal exudate. Cardiovascular: Rate and Rhythm: Normal rate and regular rhythm. Heart sounds: Normal heart sounds. Pulmonary: Effort: Pulmonary effort is normal. No respiratory distress. Breath sounds: No wheezing or rhonchi. Musculoskeletal: Right lower leg: No edema. Left lower leg: No edema. Skin: General: Skin is warm and dry. Capillary Refill: Capillary refill takes less than 2 seconds. Neurological: General: No focal deficit present. Mental Status: She is alert. ASSESSMENT/PLAN: 1. Asthma-COPD overlap syndrome (HCC) - ICD9: 493.20, ICD10: J44.89 (primary diagnosis) - Symptoms controlled. Nitric oxide WNL. - Not currently requiring controller therapy. Would recommend resuming Symbicort if symptoms start to not be as well controlled. - Continue Albuterol as needed 2. Nocturnal hypoxemia - ICD9: 327.24, ICD10: G47.34 - patient stopped using nocturnal O2 and returned concentrator to [facility]. - discussed risks of not using nocturnal O2. She wishes to continue to go without. 3. Morbid obesity (HCC) - ICD9: 278.01, ICD10: E66.01 - BMI 41 - discussed lifestyle modifications. Currently doing intermittent fasting. F/u 6 months Portions of this documentation were copied and pasted from previous office visit notes in order to provide a cohesive continuity of the history. The note has been reviewed and edited and updated as necessary. Dominick Hernandez APRN.JAMI I spent a total of 21 minutes on the date of the service which included preparing to see the patient, [id number] patient care, completing clinical documentation, performing a medically appropriate examination, counseling and educating the patient/family/caregiver, and communicating results to the patient/family/caregiver. documented in this encounter [facility] 11-18-[address] [facility] 11-18-[address] [facility] 11-18-2024 Procedure note Associated Ord er(s): NITRIC OXIDE, EXHALED RESPIRATORY THERAPY ORAL EXHALED NITRIC OXIDE SERVICE DATE: 11/18/2024 SERVICE TIME: 11:18 AM Oral Exhaled Nitric Oxide measurement: 12.0 (ppb) Normal: Adult <25 ppb, pediatric (<12 years) <20 ppb High Normal / Increased: Adult 25-50 ppb, pediatric (<12 years) 20-35 ppb Moderately raised exhaled Nitric Oxide may indicate underlying inflammation, but note that: Cold and influenza can raise exhaled Nitric Oxide and some patients have higher baseline exhaled Nitric Oxide levels than others. High: Adult >50 ppb, pediatric (<12 years) >35 ppb Indicative of ongoing eosinophilic inflammation. Symptomatic patient likely to respond to steroids. Possible causes (if already on steroids): Poor compliance, recent allergen exposure, steroid dose inadequate, and steroid resistance. Note that not all patients with high exhaled nitric oxide levels display symptoms. Oral Exhaled Nitric Oxide measurement (Previous Encounters) Test Date Oral Exhaled Nitric Oxide (ppb) 11/18/2024 12.0 NAME: Alexandra Soliz RRT PATIENT NAME: Nadja Chaudhari DATE: November 18, 2024 TIME: 11:18 AM [facility] 11-18-2024 Procedure note Associated Ord er(s): NITRIC OXIDE, EXHALED RESPIRATORY THERAPY ORAL EXHALED NITRIC OXIDE SERVICE DATE: 11/18/2024 SERVICE TIME: 11:18 AM Oral Exhaled Nitric Oxide measurement: 12.0 (ppb) Normal: Adult <25 ppb, pediatric (<12 years) <20 ppb High Normal / Increased: Adult 25-50 ppb, pediatric (<12 years) 20-35 ppb Moderately raised exhaled Nitric Oxide may indicate underlying inflammation, but note that: Cold and influenza can raise exhaled Nitric Oxide and some patients have higher baseline exhaled Nitric Oxide levels than others. High: Adult >50 ppb, pediatric (<12 years) >35 ppb Indicative of ongoing eosinophilic inflammation. Symptomatic patient likely to respond to steroids. Possible causes (if already on steroids): Poor compliance, recent allergen exposure, steroid dose inadequate, and steroid resistance. Note that not all patients with high exhaled nitric oxide levels display symptoms. Oral Exhaled Nitric Oxide measurement (Previous Encounters) Test Date Oral Exhaled Nitric Oxide (ppb) 11/18/2024 12.0 NAME: Alexandra Soliz RRT PATIENT NAME: Nadja Chaudhari DATE: November 18, 2024 TIME: 11:18 AM documented in this encounter [facility] 11-11-2024 History of Present illness Narrative Radiology Service Progress Note DATE OF SERVICE: November 11, 2024 TIME: 11:36 AM PATIENT IDENTITY VERIFICATION COMPLETED USING TWO (2) STANDARD IDENTIFIERS: Name and Date of confirmed by patient verbally. FALL SCREENING: Has the patient had 2 falls in the last year or 1 fall with injury or currently using an Ambulatory Assistive Device (Walker, Cane, Wheelchair, Crutches, etc.)? No PATIENT GENDER DATA: Assigned female at . status: : No status: NO. PATIENT RELEVANT IMPLANT DATA REVIEWED: Yes PATIENT PRESENTS WITH AN IMPLANTABLE OR ATTACHED ZOOLOGY TEACHER: No ALLERGIES: Reviewed and unchanged CONTRAST ALLERGY: NO. EXAM: MRI - CONTRAST TYPE: GROUP II PERIPHERAL IV DATA: Ambulatory: A peripheral IV was started in the Left antecubital site with a Angio cath: 22 gauge. RADIOLOGY DEPARTMENT: MR; Exam(s) Completed: Body: Pancreas/Biliary. Lavender Administered: No SIGNATURE: Stephen Michele, RT(R) PATIENT NAME: Nadja Chaudhari DATE: November 11, 2024 TIME: 11:36 AM documented in this encounter [facility] 11-11-[address] [facility] 11-05-[address] [facility] 11-05-2024 History of Present illness Narrative Images from the original note were not included. [facility] [place] [facility] Department Date: November 05, 2024 - 2:04 PM Nadja Chaudhari is seen in consultation requested by Gray Quintana for an opinion regarding chronic lower back pain. My final recommendations will be communicated back to the requesting physician by way of shared medical record or via US mail. Mariano Chief Complaint: back pain SUBJECTIVE: Nadja Chaudhari is a 74-year-old female with a history of lumbar decompression surgery, presenting with persistent leg and back pain. Nadja reports ongoing leg and back pain. She describes the leg pain as constant, affecting the entire legs, and sometimes severe enough to disrupt sleep. The pain occurs both during and after physical activities such as walking or mowing the yard, making it difficult for her to walk and get around. She notes that she cannot walk as well as she used to and must rest frequently during activities. Previously, walking on a treadmill seemed to alleviate the pain, but now walking even for 10 minutes causes discomfort. She also experiences numbness and tingling in her toes but does not report sharp pain as she did when she had a ruptured disc. Nadja underwent lumbar decompression surgery in the past to address a ruptured disc at L5-S1. She recalls that her surgeon mentioned the possibility of needing additional surgery in a year, but she has not had any further back surgeries. She used a decompression table at home, which helped her resume activities like gardening, but she is now hesitant to use it due to her history of blood clots. Nadja reports that her back pain has improved since her last doctor's visit three months ago, describing it now as more of an ache than severe pain. She attributes this improvement to warmer weather and reduced physical activity. She has not been walking or exercising as much as she usually does. The pain is described as aching, stiffness, and soreness. Currently, the pain intensity is rated 5. The pain is exacerbated by walking or activity and relieved by sitting, sitting in her recliner with her legs up, and resting. Symptoms interfere with physical activity and walking. 50% pain in spine vs 50% (radiating) pain in the extremity. Litigation: No. Worker's Compensation: No. Prior pain treatment has included: Medication(s): Flexeril, Tramadol Physical therapy: She completed PT in 2022 at [facility] in [place] Patient Entered Questionnaires PROMIS Score Percentiles 10/24/2022 PROMIS Global Health Scale Physical Health Percentile 15 10/24/2022 11/05/2024 Physical Health Physical Function Percentile 18* 12 Pain Interference Percentile 8 5 Proxy-reported Percentiles provide an indication of how the patient's score ranks in relation to the general population. Higher percentile rankings indicate better function/quality of life. 50th percentile is the average of the general population and indicates half of respondents had a worse score. > 31st percentile is within normal limits or better * < 31st percentile is at least SD worse than population, which may be clinically relevant < 16th percentile is at least 1 SD worse than population and warrants attention ALLERGIES Allergen Reactions Wellbutrin [Bupropi* GI Upset caused some gi upset (abdominal pain and gas) dry mouth, and sore throat. Current Medications: Pain medications reviewed and reconciled in the medication list: Yes. Current Outpatient Medications Medication Sig losartan-hydroCHLOROthiazide (HYZAAR) 50-12.5 mg per tablet Take 1 tablet by mouth two times a day. fluticasone (FLONASE ALLERGY RELIEF) 50 mcg/actuation nasal spray Use 2 Sprays in each nostril once daily. Mesalamine (PENTASA) 500 mg CR capsule Take 500 mg by mouth four times daily. cyclobenzaprine (FLEXERIL) 10 mg tablet Take 1 tablet by mouth three times a day as needed for pain. This can make you drowsy. Spirometers and Accessories bushra 1 Each as directed. Copd flare up, dyspnea, wheezing No current facility-administered medications for this visit. PAST MEDICAL HISTORY Diagnosis Date Bilateral leg edema Chronic midline low back pain with bilateral sciatica COPD (chronic obstructive pulmonary disease) (HCC) Essential hypertension HTN (hypertension) IFG (impaired fasting glucose) 12/2023 5.7% NEVA (obstructive sleep apnea) Osteopenia 02/2024 Spinal stenosis of lumbar region without neurogenic claudication Ulcerative colitis, unspecified PAST SURGICAL HISTORY Procedure Laterality Date LAMINECTOMY W/O FFD 05/29 VERT SEG LUMBAR Laminectomy, lumbar REPAIR ROTATOR CUFF,ACUTE TONSILLECTOMY PRIMARY/SECONDARY <AGE 12 Tonsillectomy FAMILY HISTORY Problem Relation Age of Onset No Known Problems Mother Colon Cancer Father COPD Sister Lung Cancer Sister COPD Sister Diabetes Brother Alcohol abuse Brother COPD Brother other (Varicose veins) Brother other (Motorcycle accident) Brother Alzheimer's Disease Maternal Grandmother No Known Problems Maternal Grandfather Colon Cancer Paternal Grandmother No Known Problems Paternal Grandfather Cancer Other Social History: Alcohol Use: Not Currently Tobacco Use: Types: Cigarettes Drug Use: Never Employer And Job Title: None on file Years Of Education Completed: Not specified Marital Status: REVIEW OF SYSTEMS: Constitutional: (-) Fever (-) Night Sweats (-) Weight Gain (-) Weight Loss (+) Fatigue Cardiovascular: (-) Chest Pain (-) Palpitations (-) Lightheadedness (+) Swelling of Ankles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 mg tablet Take 1 tablet by mouth three times a day as needed for pain. This can make you drowsy. Spirometers and Accessories bushra 1 Each as directed. Copd flare up, dyspnea, wheezing Allergies: ALLERGIES Allergen Reactions Wellbutrin [Bupropi* GI Upset caused some gi upset (abdominal pain and gas) dry mouth, and sore throat. ROS: See HPI PE: 10/03/24 0751 BP: 110/60 Pulse: 64 Resp: 20 Temp: 36.2 C (97.1 F) TempSrc: Left Tympanic Weight: 109.3 kg (241 lb) Gen: A&O, NAD, non-toxic appearing, Pleasant, cooperative HEENT: NT/AC, PERRLA, EOMs intact b/l, nares clear and patent b/l, pharynx without erythema, exudate or lesions. Uvula midline. EACs without erythema or debris. TMs pearly puri with intact landmarks b/l. Neck: supple, No cervical LAD, no thyromegaly, no carotid bruits CV: RRR, normal S1 and S2, no murmurs, no gallops, no rubs, Pulses 2+ and symmetric in UE and LE b/l Lungs: normal respiratory effort, CTA b/l, no wheezing or rhonchi or rales Abd: soft, + upper abdominal distension and mild tenderness, +BS, no hepatosplenomegaly MS: reduced ROM lumbar spine, + midline spine, + paraspinal muscle spasms b/l lumbar Reduced hip range of motion Neuro: CN II-XII intact b/l, strength 4/5 b/l LE and 5/5 LE, DTRs 2/4 UE and LE, sensation intact. Skin: warm, dry, intact, No rashes or lesions on exposed skin. Trace edema legs, normal peripheral pulses ASSESSMENT/PLAN: 1. Abdominal distension - ICD9: 787.3, ICD10: R14.0 (primary diagnosis) Need for RUQ Us and labs and urine testing Concerns for fatty liver - US ABD RIGHT UPPER QUADRANT - COMPREHENSIVE METABOLIC PANEL - COMPLETE BLOOD COUNT AND DIFFERENTIAL - URINALYSIS, WITH MICROSCOPIC - ALBUMIN/CREATININE RATIO, URINE - LIPASE 2. Chronic midline low back pain with bilateral sciatica - ICD9: 724.2, 724.3, 338.29, ICD10: M54.41, M54.42, G89.29 Chronic low back pain - Ice for localized tenderness - Warm moist heat for 20 min three times a day - Xrays- see orders Okay for prn Tramadol trial to see if this helps her symptom management - XR LUMBAR GENERAL 3V AP/LAT/L5-S1 - XR HIP BILATERAL 5V PEL/AP/LAT EACH HIP - TRAMADOL 50 MG TABLET 3. Spinal stenosis of lumbar region without neurogenic claudication - ICD9: 724.02, ICD10: M48.061 Chronic low back pain - Ice for localized tenderness - Warm moist heat for 20 min three times a day - Xrays- see orders Okay for prn Tramadol trial to see if this helps her symptom management - XR LUMBAR GENERAL 3V AP/LAT/L5-S1 - XR HIP BILATERAL 5V PEL/AP/LAT EACH HIP - TRAMADOL 50 MG TABLET 4. Bilateral leg edema - ICD9: 782.3, ICD10: R60.0 Labs and urine testing as ordered No signs of heart failure - COMPREHENSIVE METABOLIC PANEL - COMPLETE BLOOD COUNT AND DIFFERENTIAL - URINALYSIS, WITH MICROSCOPIC - ALBUMIN/CREATININE RATIO, URINE 5. LUQ abdominal pain - ICD9: 789.02, ICD10: R10.12 Need for RUQ Us and labs and urine testing Concerns for fatty liver - US ABD RIGHT UPPER QUADRANT - COMPREHENSIVE METABOLIC PANEL - COMPLETE BLOOD COUNT AND DIFFERENTIAL - URINALYSIS, WITH MICROSCOPIC - ALBUMIN/CREATININE RATIO, URINE - LIPASE 6. Hypertension, essential - ICD9: 401.9, ICD10: I10 - Controlled - Continue current medications - Recommend home blood pressure monitoring, to bring results to next visit - Encouraged sodium restriction, DASH or Mediterranean diet - Recommend regular aerobic exercise 7. IFG (impaired fasting glucose) - ICD9: 790.21, ICD10: R73.01 Continue diet control Gray Quintana DO .I spent 45 minutes in the visit, with more than 50% of the total [id number] time of the visit in counseling / coordination of care. To ER if develops chest pain, shortness of breath, or severe worsening of symptoms. Discussed risks, benefits, alternatives, and potential side effects of medications. Patient expressed understanding and agreed with the plan. Gray Quintana DO [address] [place] [address] documented in this encounter [facility] 09-23-2024 Instructions Williams Cabrera MD - 09/23/2024 2:06 PM EDT We discussed your history of a blood clot in your right leg: - The cause of the blood clots in the right calf may be related to the flare of ulcerative colitis during fall. - You were treated with Eliquis for 30 days and then switched to Warfarin for another month before stopping blood thinners in July after an ultrasound showed the clot had resolved. - At this time, you do not need to restart blood thinners as there are no signs of a new clot. However, you are at increased risk for future blood clots due to your history. - Please monitor for symptoms of a blood clot, including swelling, redness, or pain in one or both legs that is worse than your usual baseline. If you notice these symptoms, seek medical evaluation promptly. We discussed your chronic leg pain and swelling: - Your leg pain is likely not due to circulation issues, as your pulses are good and there are no signs of acute vascular problems at this time. - I recommend wearing medical-grade compression stockings 20-30 mm Hg daily to help with leg swelling and discomfort. These need to be properly measured at a medical supply store or [facility]. Remove them at night. - Follow up with your primary care physician for further evaluation of your chronic leg pain and to discuss possible referral to a spine clinic and/or joint specialist, as your history of spinal stenosis may be contributing to your symptoms. - Continue your current medications for leg pain as prescribed. We discussed your weight and diet: - Your current weight is contributing to your leg pain and swelling. It is important to work on weight management to improve your overall health and reduce strain on your legs. - Eliminate your intake of fast food, reduce salt, and sugar. Focus on a balanced diet. - Follow up with your primary care physician for support with weight management. We discussed your history of ulcerative colitis: - Active ulcerative colitis is a risk factor for blood clots. It is important to follow up with your stem processing machine operator to ensure your condition is well-managed and to discuss whether you should restart your colitis medication. - Continue with the dietary changes you have made, as recommended by your stem processing machine operator. - Please consult your stem processing machine operator before taking any supplements, such as turmeric, as there is limited data on their effectiveness and safety. We discussed your cancer screenings: - Your last colonoscopy in March showed one benign polyp. Follow up with your stem processing machine operator for your next colonoscopy as scheduled. - Your mammogram last year was normal. No further action is needed at this time. Next steps: - Start wearing medical-grade compression stockings daily. - Follow up with your primary care physician for weight management, chronic leg pain, and possible referral to a spine clinic and/or joint specialist. - Schedule an appointment with your stem processing machine operator to discuss ulcerative colitis management and cancer screening follow-up. - Monitor for symptoms of blood clots and seek medical attention if symptoms worsen or new symptoms develop. Please let us know if you have any additional questions or concerns. documented in this encounter [facility] 09-23-2024 History of Present illness Narrative Images from the original note were not included. [facility] Department of Cardiovascular Medicine SECTION OF VASCULAR MEDICINE OUTPATIENT VISIT DATE 09/23/2024 OUTPATIENT VISIT TYPE CONSULTATION Consult regarding: DVT to right leg, chronic leg pain Consult requested by: Christina Anthony My final recommendations will be communicated back to the requesting physician by way of the shared medical record or by letter. Primary care physician: Gray Quintana DO History of present illness: The patient is a 74 year old female with PMHx of HTN, UC, COPD, spinal stenosis, former smoker who presents for evaluation of right leg pain. The patient was admitted to [facility] 06/11-06/13 with chest pain, dyspnea, and leg swelling, and was found to have a right gastrocnemius vein DVT (images not available). CT-PE 06/12/2024 was negative for PE. ECHO - ER of 70%. Pt was hypertensive in hospital and was started on Coreg/carvedilol 6.25 mg BID. She was initially prescribed Eliquis for one month but discontinued it due to cost. She was then switched to warfarin, which she took for about a month before stopping due to gastrointestinal discomfort. A follow-up ultrasound in July reportedly showed resolution of the clot, and her clinician discontinued anticoagulation therapy. History of thrombosis: no History of CVA/TIA/[place]: no History of known hypercoagulable state: no History of malignancy: no Health maintenance: colonoscopy 2023 , PAP not in a while , Mammogram 2023 Family history of thrombosis in the first degree relatives: no She reports chronic bilateral leg pain described as tightness, aching, and muscle soreness, in lower and upper legs, present both day and night, which has been ongoing for years. She experiences difficulty walking due to the pain and sometimes needs to stop when walking long distances. She also reports occasional sharp, electrical-like jolts in her legs. The pain is constant and worsens with pressure and walking. She notes that walking on a treadmill sometimes alleviates the pain temporarily, but she experiences soreness afterward. Elevating her legs in a reclined position provides some comfort, but she reports no significant relief from other measures. She denies wearing compression stockings. She reports bilateral leg swelling, which has improved since starting diuretic therapy. She notes some residual bumpiness in her legs but denies any new swelling. She denies current chest pain or dyspnea but mentions that others have commented on her sounding out of breath when speaking. She uses two pillows at night and has a history of sleep apnea but does not use CPAP due to a prior chest infection and discomfort. She denies palpitations. She reports occasional numbness in her feet and toes but denies any significant weakness or inability to lift her legs. She has a history of spinal stenosis and underwent surgery for a ruptured disc in 1997, during which a third of the disc was removed. She has been experiencing increased tenderness in her lower back. She reports intermittent abdominal discomfort and occasional diarrhea but denies nausea or vomiting. She has a history of ulcerative colitis and has not had a flare-up since February of last year. She has not been taking her prescribed medication for colitis and has been trying natural remedies instead. She also has a history of fatty liver disease. She reports significant weight gain, which she attributes to prolonged prednisone use for co, litis flare-ups. She describes herself as really overweight and is struggling to lose weight. She admits to a diet high in fast food, salt, and carbohydrates but is attempting to reduce her intake of sugar and salt. She denies current tobacco use and quit smoking nearly three years ago. She was previously prescribed gabapentin for nerve pain but discontinued it due to excessive drowsiness. She is currently taking antihypertensive medication with a diuretic twice daily for fluid retention around her ankles. She was advised to start metformin for weight loss but declined due to concerns about side effects. Allergies: is allergic to wellbutrin [bupropion]. Medications: warfarin (COUMADIN) 5 mg tablet Take 1 tablet by mouth once daily. losartan-hydroCHLOROthiazide (HYZAAR) 50-12.5 mg per tablet Take 1 tablet by mouth two times a day. fluticasone (FLONASE ALLERGY RELIEF) 50 mcg/actuation nasal spray Use 2 Sprays in each nostril once daily. carvedilol (COREG) 6.25 mg tablet Take 6.25 mg by mouth two times a day with meals. Mesalamine (PENTASA) 500 mg CR capsule Take 500 mg by mouth four times daily. furosemide (LASIX) 20 mg tablet Take 1 tablet by mouth once daily. For leg swelling cyclobenzaprine (FLEXERIL) 10 mg tablet Take 1 tablet by mouth three times a day as needed for pain. This can make you drowsy. Spirometers and Accessories bushra 1 Each as directed. Copd flare up, dyspnea, wheezing [id number] (COSAMIN AVOCA, WITH BOSWELLIA,) 500-500-33.3-70 mg tab Take 1 tablet by mouth twice daily as needed. (Patient not taking: Reported on 09/11/2024) Past medical history: has a past medical history of COPD (chronic obstructive pulmonary disease) (HCC), HTN (hypertension), IFG (impaired fasting glucose) (12/2023), NEVA (obstructive sleep apnea), Osteopenia (02/2024), and Ulcerative colitis, unspecified. Past surgical history: has a past surgical history that includes tonsillectomy primary/secondary <age 12; laminectomy w/o ffd 1/2 vert seg lumbar; and repair rotator cuff,acute. Family history: family history includes Cancer in her unknown relative; Colon Cancer in her father and paternal grandfather. Social history: reports that she has quit smoking. Her smoking use included cigarettes. She started smoking about 51 years ago. She has a 12.8 pack-year smoking history. She has never used smokeless tobacco. She reports that she does not currently use alcohol. She reports that she does not use drugs. Cancer screening (up to date?): Colonoscopy: YES Pap smear: N/A Mammogram: YES Prostate: N/A Smoking history: -Current or past smoker? YES, past smoker quit 3 years ago -If current smoker, are you interested in help with quitting? N/A Physical exam: BP 116/71 Pulse 90 Wt 108.4 kg (239 lb) BMI 41.00 kg/m General: Alert and oriented, in no acute distress, pleasant mood. Skin: intact, no ulcerations, no rashes. Dystrophic toenails and tinea pedis HEENT: Head normocephalic, extraocular muscles intact, sclera anicteric, neck supple, no JVD, no carotid bruit. Cardiovascular: Heart has a regular rate and rhythm without murmur. Respiratory: Lungs clear auscultation bilaterally. Gastrointestinal: Abdomen soft and nontender. No abdominal bruit or palpable mass. Musculoskeletal: No cyanosis or clubbing. Peripheral vascular: Dorsalis pedis and posterior tibial pulses 2+/2 bilaterally. Feet and toes warm pink and well perfused. Lower extremities: trace pitting edema without erythema . Diffuse tenderness in both legs with negative Homans sign bilaterally. Imaging RLE VDU 07/28/2024 IMPRESSION: Negative study for proximal DVT in the right lower extremity. Negative study for proximal calf DVT in the right lower extremity with limited visualization of the distal calf veins. Negative study for superficial thrombophlebitis in the imaged segments of the right lower extremity. ECHO 09/11/2023 CONCLUSIONS: - Technically difficult exam due to body habitus. - Exam indication: Shortness of Breath - The left ventricle is small. There is mild concentric left ventricular hypertrophy. Left ventricular systolic function is normal. EF = 56 5% (2D 4-ch.) Grade I left ventricular diastolic dysfunction. - The right ventricle is normal in size. Right ventricular systolic function is normal. - The patient has not had a prior CC echocardiographic exam for comparison. Labs Latest Ref Rng & Units 11/14/2022 07/09/2023 07/08/2024 07/24/2024 CBC WBC 3.70 - 11.00 k/uL 7.80 7.67 6.55 5.94 RBC 3.90 - 5.20 m/uL 4.27 4.50 4.51 4.49 Hemoglobin 11.5 - 15.5 g/dL 12.7 13.5 12.5 12.7 Hematocrit 36.0 - 46.0 % 40.4 42.3 39.9 39.9 MCV 80.0 - 100.0 fL 94.6 94.0 88.5 88.9 MCH 26.0 - 34.0 pg 29.7 30.0 27.7 28.3 MCHC 30.5 - 36.0 g/dL 31.4 31.9 31.3 31.8 RDW-CV 11.5 - 15.0 % 13.5 13.2 14.3 14.7 Platelet Count 150 - 400 k/uL 301 249 166 274 MPV 9.0 - 12.7 fL 10.2 10.9 11.2 10.6 Baso% % 0.3 0.3 0.3 0.5 Abs Neut (ANC) 1.45 - 7.50 k/uL 4.33 3.65 3.02 2.24 Abs Lymph 1.00 - 4.00 k/uL 2.59 3.20 2.81 2.94 Abs [place] <0.87 k/uL 0.58 0.57 0.57 0.52 Abs Eosin <0.46 k/uL 0.26 0.20 0.11 0.20 Abs Baso <0.11 k/uL <0.03 <0.03 <0.03 0.03 NRBC /100 WBC 0.0 0.0 0.0 0.0 Latest Ref Rng & Units 12/03/2023 07/08/2024 07/24/2024 09/11/2024 CMP Sodium 136 - 144 mmol/L 141 139 139 Potassium 3.7 - 5.1 mmol/L 3.8 4.0 4.2 Chloride 98 - 107 mmol/L 104 104 104 CO2 22 - 30 mmol/L 26 24 27 Glucose 74 - 99 mg/dL 86 111 106 BUN 7 - 21 mg/dL 21 24 20 Creatinine 0.58 - 0.96 mg/dL 1.00 0.88 0.86 0.91 EGFR >=60 mL/min/1.73m 60 69 71 66 Protein, Total 6.3 - 8.0 g/dL 6.7 6.8 Albumin 3.9 - 4.9 g/dL 4.0 3.9 4.1 Calcium 8.5 - 10.2 mg/dL 8.9 9.0 9.4 Bilirubin, Total 0.2 - 1.3 mg/dL 0.3 0.3 AST 13 - 35 U/L 21 20 ALT 7 - 38 U/L 20 20 Alkaline Phosphatase 34 - 123 U/L 86 94 Impression/Recommendations: (Z86.718) Personal history of DVT (deep vein thrombosis) (primary encounter diagnosis) Plan: COMPRESSION STOCKINGS (I87.2) Venous (peripheral) insufficiency Plan: COMPRESSION STOCKINGS (Z68.41) BMI 40.0-44.9, adult ([facility]) (K51.639) Ulcerative colitis with complication, unspecified location ([facility]) 1. Personal history of DVT (deep vein thrombosis) (Z86.718) Likely provoked right gastrocnemius vein DVT 05/2024 in the setting of UC flare during fall. Initially with Eliquis for 30 days, then switched to Warfarin due to cost. Warfarin was discontinued after a month due to gastrointestinal discomfort. A follow-up ultrasound (radiology) in July showed no clots in the right leg . No current symptoms of acute DVT/PE on exam today. No prior personal hx of prior VTE or malignancy. No family history of VTE. Plan: - No indication to resume anticoagulation at this time - Educated patient on increased risk of recurrent DVT and the importance of monitoring for signs such as acute/new symptoms of DVT/PE. Advised to seek immediate medical evaluation if symptoms above baseline occur. - Reinforced the importance of managing ulcerative colitis to reduce risk of thrombosis. 2. Venous (peripheral) insufficiency (I87.2) CEAP:C3. Overall I doubt persistent pain in the legs is related to vascular etiology, but it is reasonable to consider a trial of 20-30 mm hg knee high compression stockings. Possible etiology of the pain: lumbosacral radiculopathy versus musculoskeletal (hip, knee OA). Plan: - Prescribed 20-30 mm Hg knee high compression stockings. Rx provided. To be used daily and remove at night. - Follow-up with primary care physician for further evaluation and management of chronic leg pain. 3. BMI 40.0-44.9, adult ([facility]) (Z68.41) Discussed obesity to be a factor likely contributing to leg pain and edema. - Advised on the importance of weight reduction for overall health and symptom improvement. - Recommended dietary modifications to reduce salt and sugar intake. - Referral to primary care physician for weight management support. 4. Ulcerative colitis with complication, unspecified location (HCC) (K50.359) History of ulcerative colitis with last flare in February. Currently not taking prescribed medication, opting for natural remedies. Recent colonoscopy showed no active inflammation. - Emphasized the importance of regular follow-up with stem processing machine operator. - Discussed the increased risk of DVT associated with active ulcerative colitis. - Advised against self-treatment and to consult stem processing machine operator before making any changes to medication regimen. RTC PRN Williams Martinez MD CC: PCP: Gray Quintana [address] [place] [address] Referring Provider: Christina Anthony [address] [facility] [id number] documented in this encounter [facility] 09-23-[address] [facility] 09-11-2024 Telephone encounter Note Patient notified of results and provider's instructions. Patient verbalizes understanding. Kasey Perez RN [facility] 09-11-2024 Miscellaneous Notes Patient notified of results and provider's instructions. Patient verbalizes understanding. Kasey Perez RN TC patient, left message for patient to call back and speak with a triage nurse regarding results and provider instructions. Kasey Perez RN Please let her know that her kidney function blood testing looks good, no concerns. Amelia Trotter APRN.TOOL 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 documented in this encounter [facility] 09-11-2024 Telephone encounter Note Patient has not been taking Coumadin per provider directions. There continues to be a standing order for INR labs that needs to be discontinued. Kasey Perez RN [facility] 09-11-2024 Miscellaneous Notes Patient has not been taking Coumadin per provider directions. There continues to be a standing order for INR labs that needs to be discontinued. Kasey Perez RN Why was INR drawn? I believe patient stopped taking warfarin. She does not need to INRs drawn anymore if so. Please confirm. Thank you, Christina Anthony APRN.TOOL 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 documented in this encounter [facility] 09-11-2024 Telephone encounter Note TC patient, left message for patient to call back and speak with a triage nurse regarding results and provider instructions. Kasey Perez RN [facility] 09-11-2024 Telephone encounter Note Why was INR drawn? I believe patient stopped taking warfarin. She does not need to INRs drawn anymore if so. Please confirm. Thank you, Christina Anthony APRN.CNP [facility] 09-11-2024 Telephone encounter Note Please let her know that her kidney function blood testing looks good, no concerns. Amelia Trotter APRN.JAMI [facility] Work Phone: 09-11-[address] [facility] 09-11-2024 History of Present illness Narrative Chief Complaint Patient presents with: Acute Visit: Strong smelling urine x1 week, urinary freq HPI Nadja Chaudhari is a 74 year old female who presents here today for Above Complaints.. Dark, strong odor with urine for one month. No burning, pelvic pain Water pill twice daily State 2 chronic kidney disease Past medical history, appointments, medications, allergies reviewed. Previous Medical History PAST MEDICAL HISTORY Diagnosis Date COPD (chronic obstructive pulmonary disease) (HCC) HTN (hypertension) IFG (impaired fasting glucose) 12/2023 5.7% NEVA (obstructive sleep apnea) Osteopenia 02/2024 Ulcerative colitis, unspecified Previous Surgical History PAST SURGICAL HISTORY Procedure Laterality Date LAMINECTOMY W/O FFD 05/29 VERT SEG LUMBAR Laminectomy, lumbar REPAIR ROTATOR CUFF,ACUTE TONSILLECTOMY PRIMARY/SECONDARY <AGE 12 Tonsillectomy Family History FAMILY HISTORY Problem Relation Age of Onset Colon Cancer Father Colon Cancer Paternal Grandfather Cancer Unknown Patient Allergies ALLERGIES Allergen Reactions Wellbutrin [Bupropi* GI Upset caused some gi upset (abdominal pain and gas) dry mouth, and sore throat. Current Medications Current Outpatient Medications on File Prior to Visit Medication Sig warfarin (COUMADIN) 5 mg tablet Take 1 tablet by mouth once daily. losartan-hydroCHLOROthiazide (HYZAAR) 50-12.5 mg per tablet Take 1 tablet by mouth two times a day. fluticasone (FLONASE ALLERGY RELIEF) 50 mcg/actuation nasal spray Use 2 Sprays in each nostril once daily. carvedilol (COREG) 6.25 mg tablet Take 6.25 mg by mouth two times a day with meals. Mesalamine (PENTASA) 500 mg CR capsule Take 500 mg by mouth four times daily. furosemide (LASIX) 20 mg tablet Take 1 tablet by mouth once daily. For leg swelling cyclobenzaprine (FLEXERIL) 10 mg tablet Take 1 tablet by mouth three times a day as needed for pain. This can make you drowsy. Spirometers and Accessories bushra 1 Each as directed. Copd flare up, dyspnea, wheezing [id number] (COSAMIN AVOCA, WITH BOSWELLIA,) 500-500-33.3-70 mg tab Take 1 tablet by mouth twice daily as needed. (Patient not taking: Reported on 04/30/2024) No current facility-administered medications on file prior to visit. Social History Social History Tobacco Use Smoking status: Former Current packs/day: 0.25 Average packs/day: 0.3 packs/day for 51.3 years (12.8 ttl pk-yrs) Types: Cigarettes Start date: 1973 Smokeless tobacco: Never Vaping Use Vaping status: Never Used Substance Use Topics Alcohol use: Not Currently Drug use: No Review of Symptoms REVIEW OF SYSTEMS See HPI, otherwise negative EXAM: There were no vitals taken for this visit. General Appearance: Well appearing, alert, in no acute distress, well-hydrated, well nourished.. Lungs: Lungs clear to auscultation. No wheezing, rhonchi, rales.. Heart: RRR without murmur, gallop, or rubs. No ectopy. Psychiatric: pleasant, cooperative Health Maintenance List BP Controlled (<130/80) Never done Alpha-1 Antitrypsin Deficiency Screening Never done RSV Vaccine(1 - Risk 60-74 years 1-dose series) Never done Advance Directive Discussion Never done Mammogram Screening due on 03/07/2025 Influenza Vaccine(1) due on 11/24/2024 Covid-19 Vaccine( - season) due on 04/30/2025 Shingrix Vaccine(1 of 2) due on 06/18/2025 Depression Screening due on 10/16/2024 Anxiety Screening due on 10/16/2024 Colorectal Cancer Screening due on 12/23/2024 Serum Creatinine due on 07/24/2025 Annual PCP Team Chronic Disease Visit due on 07/28/2025 Diabetes Screening due on 07/24/2027 DTaP,Tdap,Td Vaccine(2 - Td or Tdap) due on 01/24/2028 Lipid Screening due on 07/24/2029 Bone Density Screening Completed Spirometry Completed Pneumococcal Vaccine: 50+ Completed Hepatitis C Screening Discontinued Data reviewed ASSESSMENT/PLAN: 1. Increased urinary frequency - ICD9: 788.41, ICD10: R35.0 (primary diagnosis) - UA DIP, URINE (POC) - RENAL FUNCTION PANEL - BACTERIAL CULTURE, URINE 2. Foul smelling urine - ICD9: 791.9, ICD10: R82.90 - UA DIP, URINE (POC) - RENAL FUNCTION PANEL - BACTERIAL CULTURE, URINE Ashlee Mcmullen Attending Note I have personally performed a face to face assessment of the patient and have reviewed the KAMILLE note and I agree. Other additions or changes: As edited Signature: Amelia Trotter Date: 09/11/2024 Time: 3:58 PM documented in this encounter [facility] 08-15-2024 Telephone encounter Note PATIENT NOTIFIED OF SAME. [facility] 08-15-2024 Miscellaneous Notes PATIENT NOTIFIED OF SAME. Left message to return call Yoselin Hull MA No, if not taking coumadin she does not need INR checks anymore. Thank you, Christina Anthony APRN.TOOL 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 Patient will be completing her 3 month order of taking anticoagulation therapy for tx of DVT right lower extremity. Currently on warfarin. She has a scheduled appointment at our [facility] for an INR on 08/19. She is asking if she needs to go to this appt since she won't be on her Coumadin any longer at that time. Please call patient and advise. Thank you. documented in this encounter [facility] 08-15-2024 Telephone encounter Note Left message to return call Yoselin Hull MA [facility] 08-15-2024 Telephone encounter Note No, if not taking coumadin she does not need INR checks anymore. Thank you, Christina Anthony APRN.TOOL 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 [facility] 08-15-2024 Telephone encounter Note Patient will be completing her 3 month order of taking anticoagulation therapy for tx of DVT right lower extremity. Currently on warfarin. She has a scheduled appointment at our [facility] for an INR on 08/19. She is asking if she needs to go to this appt since she won't be on her Coumadin any longer at that time. Please call patient and advise. Thank you. [facility] 08-05-2024 Note HNO ID: [id number] Author: GRAY QUINTANA DO Service: ? Author Type: Physician Type: Progress Notes Filed: 08/05/2024 15:37 Note Text: Agree with below Gray Quintana DO [facility] 08-05-2024 History of Present illness Narrative Agree with below Gray Quintana DO patient had inr completed at [facility] patients inr is 2.0 (patients inr range is 2.0-3.0) patient is currently taking 7.5mg Thurs and 5mg all other days patients last dose change was on 07/24/24 due to a low level of 1.1 (dose at that time was 5mg daily) patient has had no changes in medication except for coumadin and no missed doses and no change in diet Advised patient to continue on the same dose(s) and that they would only be contacted regarding dosage and follow up instructions after review with provider, if a change is needed. Written instructions given and patient verbalized understanding. Presently scheduled in 2 weeks (08/19/24) for follow up INR since this is the first normal reading since dose change documented in this encounter [facility] 08-05-[address] [facility] 07-28-2024 Telephone encounter Note Spoke with pt gave information provided. Pt voices understanding. [facility] 07-28-2024 Miscellaneous Notes Spoke with pt gave information provided. Pt voices understanding. Please call patient and let her know that ultrasound results are negative -- no clots in R leg. No current and prior has resolved. Thank you, Christina Anthony APRN.TOOL 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 documented in this encounter [facility] 07-28-2024 Telephone encounter Note Please call patient and let her know that ultrasound results are negative -- no clots in R leg. No current and prior has resolved. Thank you, Christina Anthony APRN.TOOL 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 [facility] 07-28-2024 History of Present illness Narrative Radiology Service Progress Note PATIENT NAME: Nadja Chaudhari DATE OF SERVICE: July 28, 2024 TIME: 3:22 PM PATIENT IDENTITY VERIFICATION COMPLETED USING TWO (2) IDENTIFIERS: Name and Date of confirmed by patient verbally. FALL SCREENING: Has the patient had 2 falls in the last year or 1 fall with injury or currently using an Ambulatory Assistive Device (Walker, Cane, Wheelchair, Crutches, etc.)? No PATIENT GENDER DATA: Assigned female at . status: : No status: NO. PATIENT RELEVANT IMPLANT DATA REVIEWED: Yes PATIENT PRESENTS WITH AN IMPLANTABLE OR ATTACHED ZOOLOGY TEACHER: No RADIOLOGY DEPARTMENT: Ultrasound PERIPHERAL IV DATA: Not applicable SIGNED BY: Dolores Islas RDMS, RVT July 28, 2024 3:22 PM documented in this encounter [facility] 07-28-2024 Note HNO ID: [id number] Author: DOLORES ISLAS RT(R) Service: ? Author Type: Technologist Type: Progress Notes Filed: 07/28/2024 15:23 Note Text: Radiology Service Progress Note PATIENT NAME: Nadja Chaudhari DATE OF SERVICE: July 28, 2024 TIME: 3:22 PM PATIENT IDENTITY VERIFICATION COMPLETED USING TWO (2) IDENTIFIERS: Name and Date of confirmed by patient verbally. FALL SCREENING: Has the patient had 2 falls in the last year or 1 fall with injury or currently using an Ambulatory Assistive Device (Walker, Cane, Wheelchair, Crutches, etc.)? No PATIENT GENDER DATA: Assigned female at . status: : No status: NO. PATIENT RELEVANT IMPLANT DATA REVIEWED: Yes PATIENT PRESENTS WITH AN IMPLANTABLE OR ATTACHED ZOOLOGY TEACHER: No RADIOLOGY DEPARTMENT: Ultrasound PERIPHERAL IV DATA: Not applicable SIGNED BY: Dolores Islas RDMS, RVT July 28, 2024 3:22 PM [facility] 07-28-2024 Telephone encounter Note Done at Appointment. [facility] Work Phone: 07-28-2024 Miscellaneous Notes Done at Appointment. Will assess at appointment today. Pt recently switched from eliquis to warfarin and is not yet therapeutic on warfarin dosage based on last PT INR. Can we look into STAT US of leg and see if there is any availability today either before or after appointment to get this going. Thank you, Christina Anthony APRN.TOOL 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 Pt called to report she was dx with blood clot in right leg and put on blood thinner. Pt was in the hospital 06-11-24-thru 06-13-24. Pt reports legs tender got a little better and starting last week having increased pain and hard to walk. Pt reports she has had leg pain for a long time. Pt having tenderness in the right groin area. Pt wants to make sure she does not have more blood clots. DENIES: SOB, breathing issues, chest pain Mai Campbell LPN documented in this encounter [facility] 07-28-2024 Instructions Christina Anthony APRN.TOOL 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 - 07/28/2024 1:15 PM EST Supplement of CoQ10 documented in this encounter [facility] 07-28-2024 History of Present illness Narrative Chief Complaint Patient presents with: Follow Up: Trish leg pain rt is worse. Had to walk and lift legs up goes up into thigh and groin area HPI Nadja Chaudhari is a 74 year old female who presents here today for Above Complaints. Nadja is an established patient of Dr. Mariano DO. Concerns today... Per TE: Pt called to report she was dx with blood clot in right leg and put on blood thinner. Pt was in the hospital 06-11-24-thru 06-13-24. Pt reports legs tender got a little better and starting last week having increased pain and hard to walk. Pt reports she has had leg pain for a long time. Pt having tenderness in the right groin area. Pt wants to make sure she does not have more blood clots. DENIES: SOB, breathing issues, chest pain Recently switched from Eliquis to warfarin d/t cost burden. Last PT INR was 07/24 at 1.1 -- not therapeutic yet. Going through [place] [facility]. Next INR check for 07/31. In office today.. Pt reports chronic bilateral leg pain and fatigue but worsening R leg pain the last 2-3 days. Pain radiating into R groin/upper leg. Has never had this kind of discomfort with her chronic leg fatigue/muscle pain. Pt is worried that prior DVT in R lower leg has traveled upward. Pt denies any worsening SOB than usual or CP. Pt reports discomfort in leg is making it hard to walk. Pt denies any recent fall or injury. Past medical history, appointments, medications, allergies reviewed. Previous Medical History PAST MEDICAL HISTORY Diagnosis Date COPD (chronic obstructive pulmonary disease) (HCC) HTN (hypertension) IFG (impaired fasting glucose) 12/2023 5.7% NEVA (obstructive sleep apnea) Osteopenia 02/2024 Ulcerative colitis, unspecified Previous Surgical History PAST SURGICAL HISTORY Procedure Laterality Date LAMINECTOMY W/O FFD 05/29 VERT SEG LUMBAR Laminectomy, lumbar REPAIR ROTATOR CUFF,ACUTE TONSILLECTOMY PRIMARY/SECONDARY <AGE 12 Tonsillectomy Family History FAMILY HISTORY Problem Relation Age of Onset Colon Cancer Father Colon Cancer Paternal Grandfather Cancer Unknown Patient Allergies ALLERGIES Allergen Reactions Wellbutrin [Bupropi* GI Upset caused some gi upset (abdominal pain and gas) dry mouth, and sore throat. Current Medications Current Outpatient Medications on File Prior to Visit Medication Sig warfarin (COUMADIN) 5 mg tablet Take 1 tablet by mouth once daily. losartan-hydroCHLOROthiazide (HYZAAR) 50-12.5 mg per tablet Take 1 tablet by mouth two times a day. fluticasone (FLONASE ALLERGY RELIEF) 50 mcg/actuation nasal spray Use 2 Sprays in each nostril once daily. carvedilol (COREG) 6.25 mg tablet Take 6.25 mg by mouth two times a day with meals. Mesalamine (PENTASA) 500 mg CR capsule Take 500 mg by mouth four times daily. (Patient not taking: Reported on 06/18/2024) furosemide (LASIX) 20 mg tablet Take 1 tablet by mouth once daily. For leg swelling cyclobenzaprine (FLEXERIL) 10 mg tablet Take 1 tablet by mouth three times a day as needed for pain. This can make you drowsy. Spirometers and Accessories bushra 1 Each as directed. Copd flare up, dyspnea, wheezing [id number] (COSAMIN AVOCA, WITH BOSWELLIA,) 500-500-33.3-70 mg tab Take 1 tablet by mouth twice daily as needed. (Patient not taking: Reported on 04/30/2024) No current facility-administered medications on file prior to visit. Social History Social History Tobacco Use Smoking status: Former Current packs/day: 0.25 Average packs/day: 0.3 packs/day for 51.2 years (12.8 ttl pk-yrs) Types: Cigarettes Start date: 1973 Smokeless tobacco: Never Vaping Use Vaping status: Never Used Substance Use Topics Alcohol use: Not Currently Drug use: No REVIEW OF SYSTEMS: as above Reviewed relevant PMHx, PSHx, Social Hx, current medications and allergies. Review of Symptoms REVIEW OF SYSTEMS See HPI. EXAM: BP 130/64 Pulse 88 Resp 16 SpO2 98% General Appearance: Well appearing, alert, in no acute distress, well-hydrated, well nourished.. Skin: Skin color, texture, turgor normal, no suspicious rashes or lesions. Head: Normocephalic, no masses, lesions, tenderness or abnormalities. Lungs: Lungs clear to auscultation. No wheezing, rhonchi, rales.. Heart: RRR without murmur, gallop, or rubs. No ectopy. Extremities: No deformities, edema, skin discoloration, clubbing or cyanosis. Good capillary refill. , Positive findings: R leg slightly swollen compared to L with very mild erythema. No warmth. Health Maintenance List BP Controlled (<130/80) Never done Alpha-1 Antitrypsin Deficiency Screening Never done Advance Directive Discussion Never done RSV Vaccine(1 - Risk 60-74 years 1-dose series) due on 08/23/2024 Influenza Vaccine(1) due on 11/24/2024 Covid-19 Vaccine(1 - season) due on 04/30/2025 Shingrix Vaccine(1 of 2) due on 06/18/2025 Depression Screening due on 10/16/2024 Anxiety Screening due on 10/16/2024 Colorectal Cancer Screening due on 12/23/2024 Mammogram Screening due on 03/07/2025 Annual PCP Team Chronic Disease Visit due on 07/16/2025 Serum Creatinine due on 07/24/2025 Diabetes Screening due on 07/24/2027 DTaP,Tdap,Td Vaccine(2 - Td or Tdap) due on 01/24/2028 Lipid Screening due on 07/24/2029 Bone Density Screening Completed Spirometry Completed Pneumococcal Vaccine: 50+ Completed Hepatitis C Screening Discontinued ASSESSMENT/PLAN: 1. Pain of right lower extremity - ICD9: 729.5, ICD10: M79.604 (primary diagnosis) Given history of recent DVT in R leg and recent change in anticoagulation therapy, with subtherapeutic levels -- I am concerned for repeat DVT. STAT US ordered today -- if unable to get today, pt is agreeable to ER visit. - US DVT LOWER RIGHT - US LEG VEIN DVT UNL VAS LAB 2. Acute deep vein thrombosis (DVT) of proximal vein of right lower extremity (HCC) - ICD9: 453.41, ICD10: I82.4Y1 See above. Recent DVT hx with new onset anticoagulation therapy. - US DVT LOWER RIGHT - US LEG VEIN DVT UNL VAS LAB RTO as needed. Prescription instructions reviewed with patient as applicable. Potential red flag symptoms discussed with the patient. Reviewed appropriate action plan to take if red flag symptoms occur. Patient agreeable to treatment plan. Christina Vega APRN.TOOL 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 [address] [place] [address] documented in this encounter [facility] 07-28-[address] [facility] 07-28-2024 Telephone encounter Note Will assess at appointment today. Pt recently switched from eliquis to warfarin and is not yet therapeutic on warfarin dosage based on last PT INR. Can we look into STAT US of leg and see if there is any availability today either before or after appointment to get this going. Thank you, Christina Anthony APRN.TOOL 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 [facility] 07-28-2024 Telephone encounter Note Pt called to report she was dx with blood clot in right leg and put on blood thinner. Pt was in the hospital 06-11-24-thru 06-13-24. Pt reports legs tender got a little better and starting last week having increased pain and hard to walk. Pt reports she has had leg pain for a long time. Pt having tenderness in the right groin area. Pt wants to make sure she does not have more blood clots. DENIES: SOB, breathing issues, chest pain Mai Campbell LPN [facility] 07-25-2024 Telephone encounter Note Pt notified and verbalized understanding Natali Brian MA [facility] 07-25-2024 Miscellaneous Notes Pt notified and verbalized understanding Natali Biran MA Please call patient and let her know that lab work results look great. No concerns. Thank you, Christina Anthony APRN.TOOL 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 documented in this encounter [facility] 07-25-2024 Telephone encounter Note Please call patient and let her know that lab work results look great. No concerns. Thank you, Christina Anthony APRN.TOOL 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 [facility] 07-24-2024 Telephone encounter Note Orders placed. Christina Anthony APRN.CNP [facility] 07-24-2024 Miscellaneous Notes Orders placed. Christina Anthony APRN.JAMI Patient is a new patient to the [place] [facility] and we are needing new standing orders for testing. Orders have been pended for review and file if able. CC only needs called if orders cannot be filed. Thanks documented in this encounter [facility] 07-24-2024 Note HNO ID: [id number] Author: CHRISTINA ANTHONY APRN.CNP Service: ? Author Type: Nurse Practitioner Type: Progress Notes Filed: 07/24/2024 10:49 Note Text: Agree with recommendation as below. Thank you, Christina Anthony APRN.CNP [facility] 07-24-2024 History of Present illness Narrative Agree with recommendation as below. Thank you, Christina Anthony APRN.CNP patient had inr completed at [facility] patients inr is 1.1 (patients inr range is 2.0-3.0) patient is currently taking 5mg daily patients last dose change patient just started coumadin on 07/21/24 switching from eliquis patient has had no changes in medication except for coumadin and no missed doses and no change in diet recommend: patient change coumadin 7.5mg Thurs and 5mg all other days and recheck in 1 week patient has been scheduled for a 1 week follow up inr on 07/31/24 please review and advise on recommendation patient only needs called if provider does not agree with recommendation documented in this encounter [facility] 07-24-2024 Telephone encounter Note Patient is a new patient to the [place] [facility] and we are needing new standing orders for testing. Orders have been pended for review and file if able. CC only needs called if orders cannot be filed. Thanks [facility] 07-24-[address] [facility] 07-17-[address] [facility] 07-17-2024 History of Present illness Narrative POPULATION HEALTH NAVIGATION OUTREACH Action/ Spoke to Nadja scheduled wellness exam HCC Topic Due (Y or N) Comments Medicare Wellness Y PCP Follow up Colorectal Cancer Screening Controlling Blood Pressure Y A1C HCC Y Flu Vaccine Care Everywhere Reviewed MyChart Activation Updated Appointment Note Reason for Outreach Care Gap/HCC or Scheduling Wellness Visits Care Gaps due: Medicare Annual Wellness Visit Controlling Blood Pressure Patient Contacted: Spoke to patient/parent/or legal guardian Patient identified by name and : Yes Care Gap/HCC/Scheduling Wellness actions taken: Patient scheduled/pended orders: Medicare Annual Wellness Visit [facility] - Acute deep vein thrombosis (DVT) of proximal vein of right lower extremity (HCC)... 09/23/2024 in [facility] with WILLIAMS CABRERA - Acute deep vein thrombosis (DVT) of proximal vein of right lower extremity (HCC). [facility] - Mild intermittent asthma without complication [J45.20] 11/18/2024 [facility] DOMINICK HERNANDEZ - 6 month f/u 12/30/2024 in [facility] with GRAY QUINTANA - MEDICARE WELLNESS, [facility] related Navigation Signature: Merari Barker MA July 17, 2024 9:47 AM documented in this encounter [facility] 07-16-2024 History of Present illness Narrative Chief Complaint No chief complaint on file. HPI Nadja Chaudhari is a 74 year old female who presents here today for Above Complaints. Nadja is an established patient of Dr. Mariano DO. Concerns today... HTN -- She states compliant with current blood pressure medication(s): recently switched regimen from coreg to losartan-HCTZ BID due to side effects. She does check BP at home. Average home readings: 106-128/70-85. She denies chest pain, shortness of breath, palpitations, dizziness, leg edema, headaches, or vision changes. Last 14 Encounter BP Readings: Date: BP: 07/16/2024 120/80 06/18/2024 120/80 05/26/2024 160/91 04/30/2024 124/78 04/26/2024 120/78 02/25/2024 130/86 01/23/2024 124/70 12/03/2023 110/78 11/28/2023 112/70 10/17/2023 120/70 10/12/2023 122/86 09/10/2023 118/82 09/06/2023 108/72 08/24/2023 112/60 DVT dx at recent hospital admission in May. Started on eliquis regimen x 3 months. Difficulty with cost and was able to afford 1 month worth only. She did pay for 1 additional week's worth currently but she will run out on Sunday or Sunday. Dr Quintana did send in warfarin rx to take after she runs out. We have been back and forth with financial assistance to try to get eliquis d/t to rather having pt on this d/t hx of ulcerative colitis. Pt would like to stay on eliquis if able to get financial assistance -- she has spoke with social work and is waiting to hear back from [employer] about possible coverage. Pt reports she keeps getting told by hospital that she needs to be on statin therapy. Pt refuses to machine pecan picker medication. Pt does not want to be on this medication d/t known frequent side effects. Last lipid panel done in Jun 2022. Past medical history, appointments, medications, allergies reviewed. Previous Medical History PAST MEDICAL HISTORY Diagnosis Date COPD (chronic obstructive pulmonary disease) (HCC) HTN (hypertension) IFG (impaired fasting glucose) 12/2023 5.7% NEVA (obstructive sleep apnea) Osteopenia 02/2024 Ulcerative colitis, unspecified Previous Surgical History PAST SURGICAL HISTORY Procedure Laterality Date LAMINECTOMY W/O FFD 05/29 VERT SEG LUMBAR Laminectomy, lumbar REPAIR ROTATOR CUFF,ACUTE TONSILLECTOMY PRIMARY/SECONDARY <AGE 12 Tonsillectomy Family History FAMILY HISTORY Problem Relation Age of Onset Colon Cancer Father Colon Cancer Paternal Grandfather Cancer Unknown Patient Allergies ALLERGIES Allergen Reactions Wellbutrin [Bupropi* GI Upset caused some gi upset (abdominal pain and gas) dry mouth, and sore throat. Current Medications Current Outpatient Medications on File Prior to Visit Medication Sig warfarin (COUMADIN) 5 mg tablet Take 1 tablet by mouth once daily. losartan-hydroCHLOROthiazide (HYZAAR) 50-12.5 mg per tablet Take 1 tablet by mouth two times a day. fluticasone (FLONASE ALLERGY RELIEF) 50 mcg/actuation nasal spray Use 2 Sprays in each nostril once daily. carvedilol (COREG) 6.25 mg tablet Take 6.25 mg by mouth two times a day with meals. Mesalamine (PENTASA) 500 mg CR capsule Take 500 mg by mouth four times daily. (Patient not taking: Reported on 06/18/2024) furosemide (LASIX) 20 mg tablet Take 1 tablet by mouth once daily. For leg swelling cyclobenzaprine (FLEXERIL) 10 mg tablet Take 1 tablet by mouth three times a day as needed for pain. This can make you drowsy. Spirometers and Accessories bushra 1 Each as directed. Copd flare up, dyspnea, wheezing [id number] (COSAMIN AVOCA, WITH BOSWELLIA,) 500-500-33.3-70 mg tab Take 1 tablet by mouth twice daily as needed. (Patient not taking: Reported on 04/30/2024) No current facility-administered medications on file prior to visit. Social History Social History Tobacco Use Smoking status: Former Current packs/day: 0.25 Average packs/day: 0.3 packs/day for 51.1 years (12.8 ttl pk-yrs) Types: Cigarettes Start date: 1973 Smokeless tobacco: Never Vaping Use Vaping status: Never Used Substance Use Topics Alcohol use: Not Currently Drug use: No REVIEW OF SYSTEMS: as above Reviewed relevant PMHx, PSHx, Social Hx, current medications and allergies. Review of Symptoms REVIEW OF SYSTEMS See HPI. EXAM: BP 120/80 (BP Site: Left Arm, BP Position: Sitting, BP Cuff Size: Large Adult) Pulse 95 Resp 14 Wt 110 kg (242 lb 6.4 oz) SpO2 95% BMI 41.58 kg/m General Appearance: Well appearing, alert, in no acute distress, well-hydrated, well nourished.. Skin: Skin color, texture, turgor normal, no suspicious rashes or lesions. Head: Normocephalic, no masses, lesions, tenderness or abnormalities. Lungs: Lungs clear to auscultation. No wheezing, rhonchi, rales.. Heart: RRR without murmur, gallop, or rubs. No ectopy. Health Maintenance List BP Controlled (<130/80) Never done Alpha-1 Antitrypsin Deficiency Screening Never done Advance Directive Discussion Never done RSV Vaccine(1 - Risk 60-74 years 1-dose series) due on 08/23/2024 Influenza Vaccine(1) due on 11/24/2024 Covid-19 Vaccine( - season) due on 04/30/2025 Shingrix Vaccine(1 of 2) due on 06/18/2025 Depression Screening due on 10/16/2024 Anxiety Screening due on 10/16/2024 Colorectal Cancer Screening due on 12/23/2024 Mammogram Screening due on 03/07/2025 Serum Creatinine due on 07/08/2025 Annual PCP Team Chronic Disease Visit due on 07/16/2025 Lipid Screening due on 07/03/2027 Diabetes Screening due on 07/08/2027 DTaP,Tdap,Td Vaccine(2 - Td or Tdap) due on 01/24/2028 Bone Density Screening Completed Spirometry Completed Pneumococcal Vaccine: 50+ Completed Hepatitis C Screening Discontinued ASSESSMENT/PLAN: 1. Acute deep vein thrombosis (DVT) of proximal vein of right lower extremity (HCC) - ICD9: 453.41, ICD10: I82.4Y1 (primary diagnosis) Needs to switch from eliquis to warfarin d/t cost burden. Starting warfarin on upcoming Sunday. PT INR on Sunday -- will get patient set up with GIOVANNI Jimenez with [facility]. Long discussion about the need for blood work and close management while on warfarin. Should only need to be on warfarin x 2 more months total. Agree with staying on eliquis if pt is able to get financial assistance -- pt is waiting for callback. - PROTHROMBIN TIME 2. Screening for cholesterol level - ICD9: V77.91, ICD10: Z13.220 Recheck lipid panel to reassess need for statin therapy. Pt will only go on this if lipid panel is bad per pt. Refusing statin therapy for preventative measures with other chronic conditions. - LIPID PANEL BASIC 3. Hypertension, essential - ICD9: 401.9, ICD10: I10 - Controlled - Continue current medications - Recommend home blood pressure monitoring, to bring results to next visit - Encouraged sodium restriction, DASH or Mediterranean diet - Recommend regular aerobic exercise - COMPLETE BLOOD COUNT AND DIFFERENTIAL - COMPREHENSIVE METABOLIC PANEL RTO as needed. Lab work next Sunday for warfarin. Prescription instructions reviewed with patient as applicable. Potential red flag symptoms discussed with the patient. Reviewed appropriate action plan to take if red flag symptoms occur. Patient agreeable to treatment plan. Christina Vega APRN.JAMI [address] [place] [address] documented in this encounter [facility] 07-16-[address] [facility] 07-15-2024 Telephone encounter Note The following approved medication requests have been transmitted electronically. Requested Prescriptions Signed Prescriptions Disp Refills warfarin (COUMADIN) 5 mg tablet 30 tablet 1 Sig: Take 1 tablet by mouth once daily. Authorizing Provider: GRAY QUINTANA DO [facility] 07-15-2024 Miscellaneous Notes The following approved medication requests have been transmitted electronically. Requested Prescriptions Signed Prescriptions Disp Refills warfarin (COUMADIN) 5 mg tablet 30 tablet 1 Sig: Take 1 tablet by mouth once daily. Authorizing Provider: GRAY QUINTANA DO Pt notified. Please file order for coumadin. Then close encounter. Rosita Peraza MA Noted, okay to stop the Eliquis and start the warfarin next day after taking last dose of Eliquis Check INR in 5-7 days Will need a total of 3 months of treatment between the Eliquis and the Warfarin Gray Quintana DO The following approved medication requests have been transmitted electronically. Requested Prescriptions Pending Prescriptions Disp Refills warfarin (COUMADIN) 5 mg tablet 30 tablet 1 Sig: Take 1 tablet by mouth once daily. Gray Quintana DO Patient calls and states that she has not heard back from [employer]. Patient states that provider can send in other medication. Kasey Perez RN She was told total of 3 months. Per [facility] discharge summary: Acute DVT of R gastrocnemius vein: does not involve popliteal vein or proximal vein. Hx of UC and morbid obesity which puts her at risk for DVT, therefore full anticoagulation was started. Prescribed Eliquis 10 mg BID for 1 week, till 06/19/24 and then 5 mg BID to continue for total of 3 months Christina Anthony APRN.JAMI Okay for her to convert to Warfarin. When is she supposed to be treated until? Gray Quintana DO Pt called back to ask provider to wait until Sunday to order anything, as patient wants to see if she hears from Social Security first. See below message also. Patient continues Eliquis as ordered. Reports only has 5 days left of the medication and cannot afford refill. *See multiple notes regarding this in 06/26/24 telephone encounter. Patient still waiting for response from Social Security Administration regarding financial assistance that she submitted on 06/26/24 for Eliquis. Pt states [employer] told her it would be about 21 days before she got a response. Patient asking Marina Anthony CNP for advise at this point. Xarelto too costly as well, per other note. Patient aware that she may need to consider Warfarin, although it is not her top preference. She states she is able to come to the Lab for INR's as necessary. Please call patient with reply. [phone] (home) Mariya Sainz RN documented in this encounter [facility] 07-15-2024 Telephone encounter Note Pt notified. Please file order for coumadin. Then close encounter. Rosita Peraza MA [facility] 07-15-2024 Telephone encounter Note Noted, okay to stop the Eliquis and start the warfarin next day after taking last dose of Eliquis Check INR in 5-7 days Will need a total of 3 months of treatment between the Eliquis and the Warfarin Gray Quintana DO The following approved medication requests have been transmitted electronically. Requested Prescriptions Pending Prescriptions Disp Refills warfarin (COUMADIN) 5 mg tablet 30 tablet 1 Sig: Take 1 tablet by mouth once daily. Gray Quintana DO [facility] 07-12-2024 Telephone encounter Note Patient calls to ask about warfarin prescription. No prescription noted. Reviewed previous notes. Patient has not heard back from Social Security on the Extra help but it has only been submitted for 2 weeks. Patient has enough medication for tomorrow. Patient going to check with pharmacy to see if she can get a smaller supply until she here's back from [employer] as she prefers to stay on the Eliquis. Patient to call back Sunday to let us know if warfarin needs initiated. Nicki Farmer RN [facility] 07-12-2024 Miscellaneous Notes Patient calls to ask about warfarin prescription. No prescription noted. Reviewed previous notes. Patient has not heard back from [employer] Security on the Extra help but it has only been submitted for 2 weeks. Patient has enough medication for tomorrow. Patient going to check with pharmacy to see if she can get a smaller supply until she here's back from [employer] as she prefers to stay on the Eliquis. Patient to call back Sunday to let us know if warfarin needs initiated. Nicki Farmer RN documented in this encounter [facility] 07-12-2024 Telephone encounter Note Patient calling with request for Warfarin prescription. Patient denies any new or worsening symptoms of which a provider is not aware: Yes. Conferenced to Nurse Chawla at [facility] for further assistance. [facility] 07-12-2024 Miscellaneous Notes Patient calling with request for Warfarin prescription. Patient denies any new or worsening symptoms of which a provider is not aware: Yes. Conferenced to Nurse Chawla at [facility] for further assistance. documented in this encounter [facility] 07-11-2024 Telephone encounter Note Patient calls and states that she has not heard back from [employer] Security. Patient states that provider can send in other medication. Kasey Perez RN [facility] 07-10-2024 Telephone encounter Note Pt returned call and given provider's message below with verbalized understanding. [facility] 07-10-2024 Miscellaneous Notes Pt returned call and given provider's message below with verbalized understanding. Please call patient and let her know that lab work results look great. No concerns. Take care, Christina Anthony APRN.JAMI documented in this encounter [facility] 07-10-2024 Telephone encounter Note She was told total of 3 months. Per [facility] discharge summary: Acute DVT of R gastrocnemius vein: does not involve popliteal vein or proximal vein. Hx of UC and morbid obesity which puts her at risk for DVT, therefore full anticoagulation was started. Prescribed Eliquis 10 mg BID for 1 week, till 06/19/24 and then 5 mg BID to continue for total of 3 months Christina Anthony APRN.TOOL 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 [facility] 07-09-2024 Telephone encounter Note Okay for her to convert to Warfarin. When is she supposed to be treated until? Gray Quintana DO [facility] 07-09-2024 Telephone encounter Note Pt called back to ask provider to wait until Sunday to order anything, as patient wants to see if she hears from Social Security first. See below message also. [facility] 07-09-2024 Telephone encounter Note Patient continues Eliquis as ordered. Reports only has 5 days left of the medication and cannot afford refill. *See multiple notes regarding this in 06/26/24 telephone encounter. Patient still waiting for response from [employer] Security Administration regarding financial assistance that she submitted on 06/26/24 for Eliquis. Pt states [employer] told her it would be about 21 days before she got a response. Patient asking Marina Anthony CNP for advise at this point. Xarelto too costly as well, per other note. Patient aware that she may need to consider Warfarin, although it is not her top preference. She states she is able to come to the Lab for INR's as necessary. Please call patient with reply. [phone] (home) Mariya Sainz RN [facility] 07-09-2024 Telephone encounter Note Please call patient and let her know that lab work results look great. No concerns. Take care, Christina Anthony APRN.TOOL 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 [facility] 07-04-2024 Telephone encounter Note Noted. Thank you, Christina Anthony APRN.TOOL 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 [facility] 07-04-2024 Miscellaneous Notes Noted. Thank you, Christina Anthony APRN.JAMI Sw asked patient if she was able to go and machine pecan picker Eliquis and pay $500. Patient states no, I have not paid for any Eliquis. I am still using my free supply that I received when I was in the hospital. I think I have about a week to a week and half of medication. Sw noted that she had wanted to check in with patient as [employer] has a 3% out of pocket spend out on medications, and thought if patient did go and by more medication could figure out how close she was to 3% out of pocket. Patient states again no, I have not purchased any more Eliquis. The pharmacy has it on hold for me. I am waiting to hear back from Social Security to see if I qualify for Extra Help for help with cost of medication. Sw noted to let JOSE Vasquez and or Dr. Quintana know as soon as possible if patient is able to obtain the Eliquis, or if they need to come up with alternative plan to the Eliquis. Patient notes that she hopes to hear back soon from [facility] on Extra Help but will call JOSE Vasquez and or Dr. Quintana before she is out of medication. Sw called and left patient message to return SW call. Rupa is interested to see about patient paying for Eliquis and what she learned about paying ongoing for medication. The PAP company for Eliquis has a 3% out of pocket, so can discuss that with patient due to mention of spending out of pocket $566 noted below. Will see if patient needs to pursue PAP assistance with Eliquis. No PA was prompted. Called the pharmacy and the pharmacist reports pt has a deductible with the first of the year which is 590$ She already paid 566$ for this rx. She would then have 23$ for the next rx. Then it looks like is would be covered after that. He is guessing covered at 100% but he couldn't say for sure may 50$ monthly at the most. Pt should contact her insurance to check the coverage and cost. Can we have our prior auth department look into this and see if there is ANY other option that could be cheaper besides starting patient on warfarin. As warfarin will be too hard for patient to manage. Thank you, Christina Anthony APRN.CNP Patient could ask her pharmacy how much xarelto would be with her insurance. Sw looked at xarelto-[employer] PAP and they have a higher out of pocke expenditure at the pharmacy then [employer]-Eliquis, so that will not work at the moment. Will Xarelto be cheaper and easier to get assistance for? Or do we need to switch to warfarin. Christina Anthony APRN.JAMI Patient calling to give an update to provider Marina Anthony CNP. Pt states she will be out of her Eliquis in about 2 weeks and cannot afford more after that-it will cost her a $600 copay. She would like Christina to know that she visited the Social Security office today and completed a form to hopefully help cover the cost of her medications. She is to hear back within 21 days if she is approved. In the mean time, patient states she will most likely need an alternative medication to replace her Eliquis in the next 2 weeks. Please advise patient. Thank you. documented in this encounter [facility] 07-04-2024 Telephone encounter Note Sw asked patient if she was able to go and machine pecan picker Eliquis and pay $500. Patient states no, I have not paid for any Eliquis. I am still using my free supply that I received when I was in the hospital. I think I have about a week to a week and half of medication. Sw noted that she had wanted to check in with patient as [employer] P[employer] has a 3% out of pocket spend out on medications, and thought if patient did go and by more medication could figure out how close she was to 3% out of pocket. Patient states again no, I have not purchased any more Eliquis. The pharmacy has it on hold for me. I am waiting to hear back from Social Security to see if I qualify for Extra Help for help with cost of medication. Sw noted to let JOSE Vasquez and or Dr. Quintana know as soon as possible if patient is able to obtain the Eliquis, or if they need to come up with alternative plan to the Eliquis. Patient notes that she hopes to hear back soon from [employer] on Extra Help but will call JOSE Vasquez and or Dr. Quintana before she is out of medication. [facility] 07-03-2024 Telephone encounter Note Called pt she states this has already been taken care of has appoints set up for both. [facility] 07-03-2024 Miscellaneous Notes Called pt she states this has already been taken care of has appoints set up for both. 2nd attempt,Called patient LVM to call back to schedule Consult to Vascular as well as appt with Raj 1st attempt - left message to return call. When she calls, please schedule Vascular Medicine Consult. Kasey Calvin Pt informed. Pt reports she has chronic pain. Please schedule vascular. Yoselin Hull MA Blood thinner should not be causing back pain. She was not complaining of this at appointment. Needs appointment to assess. I agree with vascular consult -- especially to determine length of blood thinner treatment. 3 months vs chronic. Consult placed, please schedule. Thank you, Christina Anthony APRN.TOOL 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 To Christina to review I didn't see her for this concern Gray Quintana DO Patient called said she was in [facility] for a blood clot and already had a follow up Patient asking if she should see a vascular provider? Patient states her leg still hurts a little bit and also having lower back pain. Patient asked if that is caused from the blood thinner Please advise documented in this encounter [facility] 07-03-2024 Telephone encounter Note Sw called and left patient message to return SW call. Sw is interested to see about patient paying for Eliquis and what she learned about paying ongoing for medication. The PAP company for Eliquis has a 3% out of pocket, so can discuss that with patient due to mention of spending out of pocket $566 noted below. Will see if patient needs to pursue PAP assistance with Eliquis. [facility] 07-03-2024 Telephone encounter Note No PA was prompted. Called the pharmacy and the pharmacist reports pt has a deductible with the first of the year which is 590$ She already paid 566$ for this rx. She would then have 23$ for the next rx. Then it looks like is would be covered after that. He is guessing covered at 100% but he couldn't say for sure may 50$ monthly at the most. Pt should contact her insurance to check the coverage and cost. [facility] 07-02-2024 Telephone encounter Note Can we have our prior auth department look into this and see if there is ANY other option that could be cheaper besides starting patient on warfarin. As warfarin will be too hard for patient to manage. Thank you, Christina Anthony APRN.TOOL 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 [facility] 06-28-2024 Telephone encounter Note 2nd attempt,Called patient LVM to call back to schedule Consult to Vascular as well as appt with Raj [facility] 06-26-2024 Telephone encounter Note Patient could ask her pharmacy how much xarelto would be with her insurance. Sw looked at xarelto-[employer] PAP and they have a higher out of pocke expenditure at the pharmacy then [employer]-Eliquis, so that will not work at the moment. [facility] 06-26-2024 Telephone encounter Note Will Xarelto be cheaper and easier to get assistance for? Or do we need to switch to warfarin. Christina Anthony APRN.JAMI [facility] 06-26-2024 Telephone encounter Note Patient calling to give an update to provider Marina Anthony CNP. Pt states she will be out of her Eliquis in about 2 weeks and cannot afford more after that-it will cost her a $600 copay. She would like Christina to know that she visited the Social Security office today and completed a form to hopefully help cover the cost of her medications. She is to hear back within 21 days if she is approved. In the mean time, patient states she will most likely need an alternative medication to replace her Eliquis in the next 2 weeks. Please advise patient. Thank you. [facility] 06-26-2024 Telephone encounter Note 1st attempt - left message to return call. When she calls, please schedule Vascular Medicine Consult. Kasey Calvin [facility] 06-25-2024 Telephone encounter Note Pt informed. Pt reports she has chronic pain. Please schedule vascular. Yoselin Hull MA [facility] 06-25-2024 Telephone encounter Note Blood thinner should not be causing back pain. She was not complaining of this at appointment. Needs appointment to assess. I agree with vascular consult -- especially to determine length of blood thinner treatment. 3 months vs chronic. Consult placed, please schedule. Thank you, Christina Anthony APRN.TOOL 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 [facility] 06-25-2024 Telephone encounter Note To Christina to review I didn't see her for this concern Gray Quintana DO [facility] 06-25-[address] [facility] 06-25-2024 History of Present illness Narrative SW provided letter to patient regarding how long to be on Eliquis. Patient reports that she is still confused on how long she needs to be on medication. Sw reiterated letter that JOSE Vasquez wrote in regards to time frame. Patient reports that she is going to go to Social Security tomorrow to fill out Extra Help application. Patient notes that she will see about how long it would be to determine Extra Help status. Patient states that she will let Rupa/Christina know if she needs to discuss alternative to Eliquis. Patient notes I can't afford the $600 so if Extra Help does not start by the end of 2 weeks she will have to figure out alternative. Patient met with Sw to discuss Eliquis cost concerns. Patient reports that she called [facility] pharmacy and they report that they do not have Eliquis prescription at [facility] pharmacy. They only had patient starter pack that patient has been on. Patient reports that she has about 2 weeks and possibly a day left of Eliquis. Patient reports that she thought she was to be continuing on medication, but not sure as to how long she is going to be on medication. Sw and patient reviewed her income and [employer] [facility] out of pocket 3% expenditure on medications. This would be about $900. With the new starting patient feels like she has only spent maybe at couple of dollars if that at the pharmacy. Patient also notes that she spoke with [employer] and was told that they do not have any funding right now for prescription help. Patient and Sw called [employer] and they are mailing out Extra Help application to patient to work on and take back to Social Security to see about Extra Help Medicare Assistance for help with part d prescription costs. documented in this encounter [facility] 06-25-[address] [facility] 06-25-2024 History of Present illness Narrative Needs to be on eliquis x 3 months. RTO in 3 months to reassess and see if this can be discontinued at that time. .The following approved medication requests have been transmitted electronically. Requested Prescriptions Signed Prescriptions Disp Refills apixaban (ELIQUIS) 5 mg tab(s) 60 tablet 2 Sig: Take 1 tablet by mouth two times a day. Christina Anthony APRN.CNP documented in this encounter [facility] 06-25-[address] [facility] 06-23-2024 Telephone encounter Note Patient called said she was in [facility] for a blood clot and already had a follow up Patient asking if she should see a vascular provider? Patient states her leg still hurts a little bit and also having lower back pain. Patient asked if that is caused from the blood thinner Please advise [facility] Work Phone: 06-18-2024 Telephone encounter Note Noted. Thank you for update and for looking into this for her. Thank you, Christina Anthony APRN.TOOL 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 [facility] 06-18-2024 Miscellaneous Notes Noted. Thank you for update and for looking into this for her. Thank you, Christina Anthony APRN.TOOL 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 Patient and Sw spoke regarding Eliquis cost. Patient notes that she is not sure if her insurance covers medication. Patient reports that she will check with prescription part d plan and see if it will cover Eliquis and if so what will be the cost to patient. Sw noted that [employer] has a PAP program. There are income guidelines along with out of pocket spend out at pharmacy depending on if insurance covers medication cost or not. Patient asks that Sw mail application to her to review guidelines to see if interested in applying. Patient also notes that she will check with pharmacy and see what they report for coverage with her insurance and cost. Sw notes that she will write down Sw number to reach back out to with questions or further assistance needs. documented in this encounter [facility] 06-18-2024 Telephone encounter Note Patient and Sw spoke regarding Eliquis cost. Patient notes that she is not sure if her insurance covers medication. Patient reports that she will check with prescription part d plan and see if it will cover Eliquis and if so what will be the cost to patient. Sw noted that [employer] has a PAP program. There are income guidelines along with out of pocket spend out at pharmacy depending on if insurance covers medication cost or not. Patient asks that Sw mail application to her to review guidelines to see if interested in applying. Patient also notes that she will check with pharmacy and see what they report for coverage with her insurance and cost. Sw notes that she will write down Sw number to reach back out to with questions or further assistance needs. [facility] 06-18-2024 History of Present illness Narrative Chief Complaint Patient presents with: [facility]ps[facility] f/up for b/p HPI Nadja Chaudhari is a 74 year old female who presents here today for Above Complaints. Nadja is an established patient of Dr. Mariano DO. Concerns today... Hospital follow-up --- [facility] admission from 06/11-06/13 d/t CP, bilateral leg edema, and SOB. Troponins were mildly elevated in ER. Pt was started on IV lasix d/t edema. Pt was then found to have acute DVT of R gastrocnemius vein. Started on eliquis x 3 months. CTA 06/12 was negative for PE. ECHO in hospital was normal with ER of 70%. Pt was hypertensive in hospital and was started on Coreg/carvedilol 6.25 mg BID. Today in office... Pt reports extreme fatigue and believes this is all related to the coreg medication. Pt wants to stop this medication and switch to something else. Swelling in legs is improved. Not taking lasix anymore. Taking eliquis as prescribed but concerned about the cost of this. Asking for finianical assistance. HTN --- She states compliant with current blood pressure medication(s): losartan 100 mg daily and HCTZ 12.5 mg daily. 1 tablet of combo pill in the morning and only the losartan (50mg) in the evening. She has been taking the coreg as prescribed since hospital visit as well. She does check BP at home. Average home readings: 110-130/70-80s since discharge. She denies chest pain, shortness of breath, palpitations, dizziness, leg edema, headaches, or vision changes. Last 14 Encounter BP Readings: Date: BP: 06/18/2024 120/80 05/26/2024 160/91 04/30/2024 124/78 04/26/2024 120/78 02/25/2024 130/86 01/23/2024 124/70 12/03/2023 110/78 11/28/2023 112/70 10/17/2023 120/70 10/12/2023 122/86 09/10/2023 118/82 09/06/2023 108/72 08/24/2023 112/60 08/07/2023 126/84 Pt asking about CPAP machine -- reports she had at home sleep study done a few years ago that showed NEVA but pt refused PAP therapy so she never went to next sleep study testing. Pt reports while she was in the hospital, they gave her supplemental o2 therapy at night due to desats. Pt wondering if she needs this at home -- willing to discuss/think about CPAP therapy use if needed. Pt also c/o generalized mild congestion since discharge. Denies any cough, sinus pressure, or fevers. Past medical history, appointments, medications, allergies reviewed. Previous Medical History PAST MEDICAL HISTORY Diagnosis Date COPD (chronic obstructive pulmonary disease) (HCC) HTN (hypertension) IFG (impaired fasting glucose) 12/2023 5.7% NEVA (obstructive sleep apnea) Osteopenia 02/2024 Ulcerative colitis, unspecified Previous Surgical History PAST SURGICAL HISTORY Procedure Laterality Date LAMINECTOMY W/O FFD 05/29 VERT SEG LUMBAR Laminectomy, lumbar REPAIR ROTATOR CUFF,ACUTE TONSILLECTOMY PRIMARY/SECONDARY <AGE 12 Tonsillectomy Family History FAMILY HISTORY Problem Relation Age of Onset Colon Cancer Father Colon Cancer Paternal Grandfather Cancer Unknown Patient Allergies ALLERGIES Allergen Reactions Wellbutrin [Bupropi* GI Upset caused some gi upset (abdominal pain and gas) dry mouth, and sore throat. Current Medications Current Outpatient Medications on File Prior to Visit Medication Sig apixaban (ELIQUIS) 5 mg (74 tabs) Take 5 mg by mouth two times a day. carvedilol (COREG) 6.25 mg tablet Take 6.25 mg by mouth two times a day with meals. Mesalamine (PENTASA) 500 mg CR capsule Take 500 mg by mouth four times daily. losartan-hydroCHLOROthiazide (HYZAAR) 50-12.5 mg per tablet Take 1 tablet by mouth once daily. furosemide (LASIX) 20 mg tablet Take 1 tablet by mouth once daily. For leg swelling losartan (COZAAR) 50 mg tablet Take 1 tablet by mouth once daily. 1 daily in the evening cyclobenzaprine (FLEXERIL) 10 mg tablet Take 1 tablet by mouth three times a day as needed for pain. This can make you drowsy. Spirometers and Accessories bushra 1 Each as directed. Copd flare up, dyspnea, wheezing [id number] (COSAMIN AVOCA, WITH BOSWELLIA,) 500-500-33.3-70 mg tab Take 1 tablet by mouth twice daily as needed. (Patient not taking: Reported on 04/30/2024) No current facility-administered medications on file prior to visit. Social History Social History Tobacco Use Smoking status: Former Current packs/day: 0.25 Average packs/day: 0.3 packs/day for 51.1 years (12.8 ttl pk-yrs) Types: Cigarettes Start date: 1973 Smokeless tobacco: Never Vaping Use Vaping status: Never Used Substance Use Topics Alcohol use: Not Currently Drug use: No REVIEW OF SYSTEMS: as above Reviewed relevant PMHx, PSHx, Social Hx, current medications and allergies. Review of Symptoms REVIEW OF SYSTEMS See HPI. EXAM: BP 120/80 (BP Site: Left Arm, BP Position: Sitting, BP Cuff Size: Large Adult) Pulse 85 Resp 16 Wt 110.2 kg (242 lb 15.2 oz) SpO2 95% BMI 41.68 kg/m General Appearance: Well appearing, alert, in no acute distress, well-hydrated, well nourished.. Skin: Skin color, texture, turgor normal, no suspicious rashes or lesions. Head: Normocephalic, no masses, lesions, tenderness or abnormalities. Lungs: Lungs clear to auscultation. No wheezing, rhonchi, rales.. Heart: RRR without murmur, gallop, or rubs. No ectopy. Extremities: No deformities, edema, skin discoloration, clubbing or cyanosis. Good capillary refill. . Health Maintenance List BP Controlled (<130/80) Never done Alpha-1 Antitrypsin Deficiency Screening Never done Advance Directive Discussion Never done RSV Vaccine(1 - Risk 60-74 years 1-dose series) due on 08/23/2024 Influenza Vaccine(1) due on 11/24/2024 Covid-19 Vaccine( - 2023- season) due on 04/30/2025 Shingrix Vaccine(1 of 2) due on 06/18/2025 Depression Screening due on 10/16/2024 Anxiety Screening due on 10/16/2024 Serum Creatinine due on 12/02/2024 Colorectal Cancer Screening due on 12/23/2024 Mammogram Screening due on 03/07/2025 Annual PCP Team Chronic Disease Visit due on 06/18/2025 Diabetes Screening due on 01/23/2027 Lipid Screening due on 07/03/2027 DTaP,Tdap,Td Vaccine(2 - Td or Tdap) due on 01/24/2028 Bone Density Screening Completed Spirometry Completed Pneumococcal Vaccine: 50+ Completed Hepatitis C Screening Discontinued Data reviewed ASSESSMENT/PLAN: 1. Hospital discharge follow-up - ICD9: V67.59, ICD10: Z09 (primary diagnosis) Pt requesting to come off of coreg regimen d/t side effects of extreme fatigue. Discontinue coreg and increase Losartan-HCTZ regimen to BID daily. RTO in 4 weeks to reassess BP and HR. Continue with eliquis as prescribed -- will reach out to our social worker health services, Alexandra, for assistance with cost. 2. Acute deep vein thrombosis (DVT) of proximal vein of right lower extremity (HCC) - ICD9: 453.41, ICD10: I82.4Y1 Continue with eliquis x 3 months. Social work consult to help with cost. - PRIMARY CARE SOCIAL WORK CONSULT 3. Hypertension, essential - ICD9: 401.9, ICD10: I10 - Controlled today. But pt refuses to continue on coreg regimen. Adjusted HTN regimen as above. Increase HCTZ-losartan to BID. - Recommend home blood pressure monitoring, to bring results to next visit - Encouraged sodium restriction, DASH or Mediterranean diet - Recommend regular aerobic exercise - Follow up in 4 weeks for hypertension visit. Lab work as ordered prior to. - LOSARTAN 50 MG-HYDROCHLOROTHIAZIDE 12.5 MG TABLET - COMPREHENSIVE METABOLIC PANEL - COMPLETE BLOOD COUNT AND DIFFERENTIAL 4. IFG (impaired fasting glucose) - ICD9: 790.21, ICD10: R73.01 Recheck. - HEMOGLOBIN A1C 5. Poor sleep - ICD9: V69.4, ICD10: Z72.820 Repeat HSAT -- likely needs CPAP therapy. Pt aware that following step will be titration study and pt is aware of this and agreeable. - HOME SLEEP APNEA TEST (HSAT) 6. NEAV (obstructive sleep apnea) - ICD9: 327.23, ICD10: G47.33 See above. - HOME SLEEP APNEA TEST (HSAT) 7. Nasal congestion - ICD9: 478.19, ICD10: R09.81 Pt declines COVID/flu/rsv testing. Start using flonase RTO if no improvement in symptoms in 5-7 days. - FLUTICASONE PROPIONATE 50 MCG/ACTUATION NASAL SPRAY,SUSPENSION RTO in 4 weeks, sooner if needed. Prescription instructions reviewed with patient as applicable. Potential red flag symptoms discussed with the patient. Reviewed appropriate action plan to take if red flag symptoms occur. Patient agreeable to treatment plan. Christina Vega APRN.TOOL 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 [address] [place] [address] documented in this encounter [facility] 06-18-[address] [facility] 06-16-2024 Note HNO ID: [id number] Author: GRAY QUINTANA DO Service: ? Author Type: Physician Type: Progress Notes Filed: 06/16/2024 08:02 Note Text: Patient has appt with Christina on 06/18 Gray Quintana DO [facility] 06-16-2024 History of Present illness Narrative Patient has appt with Christina on 06/18 Gray Quintana DO TRANSITION CARE MANAGEMENT (TCM) INITIAL CONTACT Last [employer]er Outreach Provider Action/FYI: Patient was seen at [facility] and admitted on 06/11/2024 for chest pain, high blood pressure, and DVT Right lower Leg. Patient was discharged from hospital on 06/13/2024. Initial contact with patient post discharge, spoke to patient. Patient identified by name and . TRANSITION CARE MANAGEMENT INITIAL OUTREACH DOCUMENTATION: 06/14/2024 Date of Outreach: Outreach Attempt 1: Contact Not Made Date of Discharge 06/13/2024 SUMMARY: -Pt discharged from [facility] on 06/13/2024. -Admitted for: Chest Pain, High Blood Pressure, DVT Right lower Leg Do you have a hospital follow up appointment with your PCP? Appointment on 06/18/2024 with Christina Anthony CNP. Yes. Remind patient of appointment date, time, and location. If not within 14 calendar days of discharge - please reschedule accordingly. MEDICATIONS: Many patients have questions or concerns about their medications once they are home. Were you prescribed any new medications? If yes, what are those medications? Carvedilol 6.25 mg BID and Elquis 10 mg BID x 10 days then 5 mg BID Were you told to hold any medications? No Were any of your medications discontinued? No Do you have any questions about getting or taking your medications? No Your discharge instructions/After visit Summary (AVS) are important in guiding you through the recovery process. Is there anything I might help you understand? No Do you have all the necessary equipment and supplies at home? Yes Medical records from recent hospitalization: Care Everywhere documented in this encounter [facility] 06-14-[address] [facility] 06-14-2024 Telephone encounter Note Patient call in for fatigue/tiredness. Patient had woke up sweaty this morning. Patient took her temperature. Patient currently has no temp. Patient was just discharged from [facility] on 06/13/2024 with diagnosis of DVT right leg and High blood pressure. Nurse Triage assessment completed with protocol recommending for disposition of see PCP in 3 days. Patient is scheduled in hospital follow up with Christina on 06/18/2024. Care advice reviewed with patient, patient stated understanding. Patient advised to seek evaluation in or ER if symptoms persist or gets worse. Patient voices understanding. Reason for Disposition [1] MILD weakness (i.e., does not interfere with ability to work, go to school, normal activities) AND [2] persists > 1 week Answer Assessment - Initial Assessment Questions 1. DESCRIPTION: Patient calls and states that she is feeling overly tired today 2. SEVERITY: Mild, states that she can stand and walk. Feeling tired but able to activities of daily living 3. ONSET: Woke up feeling tired. 4. CAUSE: Patient states that she was just recently discharged from [facility] with Blood Clot in right leg as well as high blood pressure. 5. NEW MEDICINES: Carvedilol 6.25 daily; Eliquis 10 mg BID x 7 days then one tablet BID 6. OTHER SYMPTOMS: Do you have any other symptoms? (e.g., chest pain, fever, cough, SOB, vomiting, diarrhea, bleeding, other areas of pain) Woke up sweating but does not currently have fever, Denies other symptoms Protocols used: Weakness (Generalized) and [id number] [facility] 06-14-2024 Miscellaneous Notes Patient call in for fatigue/tiredness. Patient had woke up sweaty this morning. Patient took her temperature. Patient currently has no temp. Patient was just discharged from [facility] on 06/13/2024 with diagnosis of DVT right leg and High blood pressure. Nurse Triage assessment completed with protocol recommending for disposition of see PCP in 3 days. Patient is scheduled in hospital follow up with Christina on 06/18/2024. Care advice reviewed with patient, patient stated understanding. Patient advised to seek evaluation in or ER if symptoms persist or gets worse. Patient voices understanding. Reason for Disposition [1] MILD weakness (i.e., does not interfere with ability to work, go to school, normal activities) AND [2] persists > 1 week Answer Assessment - Initial Assessment Questions 1. DESCRIPTION: Patient calls and states that she is feeling overly tired today 2. SEVERITY: Mild, states that she can stand and walk. Feeling tired but able to activities of daily living 3. ONSET: Woke up feeling tired. 4. CAUSE: Patient states that she was just recently discharged from [facility] with Blood Clot in right leg as well as high blood pressure. 5. NEW MEDICINES: Carvedilol 6.25 daily; Eliquis 10 mg BID x 7 days then one tablet BID 6. OTHER SYMPTOMS: Do you have any other symptoms? (e.g., chest pain, fever, cough, SOB, vomiting, diarrhea, bleeding, other areas of pain) Woke up sweating but does not currently have fever, Denies other symptoms Protocols used: Weakness (Generalized) and [id number] documented in this encounter [facility] 06-13-2024 Note [facility] Medical Records Department [address] [place] [id number] Discharge Summary 06/13/24 0928 MR#: [id number] Acct: [id number] Name: NADJA CHAUDHARI Rep #: [id number] : [id number] 74 From: Louie Dias MD PCP: Dr. Gray Quintana DO Status:ADM RICKEY Location: [place] [address] Providers Date of Admission: 06/11/24 Date of Discharge: 06/13/24 Primary Care Physician: Dr. Gray Quintana DO Reason For Visit: CHEST PAIN Diagnosis Discharge Diagnosis (1) Elevated troponin I level: Status: Acute Code(s): R79.89 - Other specified abnormal findings of blood chemistry (2) Atypical chest pain: Status: Acute Code(s): R07.89 - Other chest pain (3) Lower extremity edema: Status: Acute Code(s): R60.0 - Localized edema Plan 74-year-old female was admitted with left-sided chest pain that is started 1 day before admission, intermittent reproducible, increased with certain movements/positional. No exertional shortness of breath. Denies history of DVT. No fever or chills 1. Atypical chest pain with mild troponin elevation, noncardiac possible due to elevated blood pressure: Indeterminate with flat troponin. Patient is being admitted in PCU. Mild shortness of breath probably due to obstructive sleep apnea/chronic COPD asthma overlap. Patient had nuclear stress test was negative for acute ischemia. Therefore, acute coronary syndrome ruled out. Echo shows EF 70% with mild concentric LVH stage I diastolic function suggestive of chronic HFpEF but does not look like an acute heart failure. Patient has bilateral lower extremity edema probably due to heart failure or uncontrolled blood pressure/hypertension. Lasix 40 mg IV daily Lasix 41 IV daily ordered. 06/13: Swelling is better. Blood pressure is controlled. No chest pain. Patient on losartan 100 mg and HCTZ 12.5 mg. Follow with PCP. Recommend changing the HCTZ to furosemide for lower extremity edema. Follow-up in cardiology office. Prescription given for carvedilol. 2. Acute DVT in right gastrocnemius vein: This does not involve popliteal vein or proximal vein 06/13: Patient is stated she has ulcerative colitis, morbid obesity that puts high risk for DVT therefore decided for full anticoagulation. Prescribed Eliquis 10 mg twice daily for 1 week till 06/19/2024 and then 5 mg twice daily to continue for total of 3 months NEVA -Patient has untreated -Has not tolerated CPAP or supplemental oxygen in the past -Continued outpatient follow-up with pulmonary medicine 06/13: Patient follows Dr. Yan Montaño. Advised PFT and sleep study. Patient might have restrictive or obstructive lung disease or mixed with Inflammatory bowel disease, ulcerative -Follows in [facility] [place] -States she has been on several bouts of steroids recently and has follow-up pending -No symptoms at this time and hemoglobin stable Essential hypertension: Blood pressure is controlled. Morbid obesity -BMI 41.4 -Recommend weight loss -Complicates treatment, prognosis, outcomes DVT prophylaxis -Lovenox SQ twice daily 40 mg CODE STATUS -Full code as verified at the time of admission Discharge medication reconciliation done. Discharge follow-up instructions completed. Discharge process discussed with the patient and all questions were answered to patient's satisfaction. Follow with PCP in 1 to 2 weeks Total time spent, exact 35 minutes on discharge meds reconciliation, examination, coordination of care with nurses and ancillary staff, review of imaging and blood test and discussion with the patient on follow-up instructions. Clinical Impression(s) from Imaging Studies Chest X-Ray 06/11/24 17:50 IMPRESSION: No acute findings in the chest. Echocardiogram 06/11/24 20:02 Interpretation Summary The study was technically difficult. Mild concentric left ventricular hypertrophy. The left ventricular ejection fraction is 70 %. Stage 1 diastolic dysfunction. Chest CTA 06/12/24 04:23 IMPRESSION: 1. No evidence of pulmonary emboli. 2. Multiple small pulmonary nodules bilaterally largest 4 mm similar to previous study. Follow-up recommended according to Fleischner Society guidelines: If low risk patient, no follow-up needed; if high-risk patient, i.e. smoking or other risk factors: CT at 6 months. 3. Cholelithiasis. *Fleischner Society Recommendations (Radiology 2017, 284:228-243.) (Follow-up and management of multiple nodules smaller than 8 mm detected incidentally at non-screening CT. Newly detected indeterminate nodule in persons 35 years of age or older.) Low risk patient: Minimal or absent history of smoking and of other known risk factors. < 6 mm: No followup needed 6-8mm: Initial Follow-up CT at 3-6 months, then consider CT at 18-24 months >8mm: CT at 3-6 months, then consider CT at 18-24 months High risk patient: History of smoking or o (more content not included)... [facility] 06-11-[address] [facility] 06-11-2024 History of Present illness Narrative Patient came in with complaints of chest pressure and tightness. Patient does not have any sick symptoms such as cough congestion. Patient says she noticed it yesterday. Patient says it does go through to her back. Patient thinks it might just be muscular but did not injure herself in any way. Due to risk factors and presenting symptoms patient is being referred to the emergency room for more thorough evaluation. Patient refused squad patient wants to take her self. documented in this encounter [facility] 06-11-2024 Telephone encounter Note Agree with below Gray Quintana DO [facility] 06-11-2024 Miscellaneous Notes Agree with below Gray Quintana DO Spoke with patient. She describes a tender lump just below the clavicle bones in the middle of her chest. It is painful to touch and increases with deep breathing. Unlikely related to her oxygen, but should be evaluated. I advised express care to rule out an infected cyst or possible reactive lymph node. She verbalizes understanding and agrees to plan. Brenda Roe LPN Patient called in stating that she notice a lump in center of chest yesterday 06/10/2024 that is painful to touch. Patient rates tender pain 5 out of 10 on pain scale. Patient questions if she should continue with oxygen. Please advise. Piedad Heard LPN documented in this encounter [facility] 06-11-2024 Telephone encounter Note Spoke with patient. She describes a tender lump just below the clavicle bones in the middle of her chest. It is painful to touch and increases with deep breathing. Unlikely related to her oxygen, but should be evaluated. I advised express care to rule out an infected cyst or possible reactive lymph node. She verbalizes understanding and agrees to plan. Brenda Roe LPN [facility] 06-11-2024 Telephone encounter Note Patient called in stating that she notice a lump in center of chest yesterday 06/10/2024 that is painful to touch. Patient rates tender pain 5 out of 10 on pain scale. Patient questions if she should continue with oxygen. Please advise. Piedad Heard LPN [facility] Work Phone: 05-26-2024 History of Present illness Narrative Images from the original note were not included. . Respiratory [place] Note Patient name: Nadja Chaudhari PCP: Gray Quintana DO CC: Nocturnal hypoxemia, asthma COPD overlap HPI: Nadja Chaudhari 74 year old female former less than [id number] smoker quitting in 2021 with PMH significant for morbid obesity, UC, CKD, HTN, severe NEVA intolerant of CPAP, lung nodules and asthma COPD overlap syndrome who presents for follow-up. Pulmonary function testing shows mild obstruction without improvement postbronchodilator and elevated exhaled nitric oxide level. She had been on Symbicort in the past resulting in good control of her symptoms. She was doing well from a respiratory standpoint so she stopped using the Symbicort and only has albuterol to use as needed. Due to her intolerance of CPAP, overnight oximetry was performed and qualified her for supplemental oxygen. She did have some issues initially with dryness in her nose and the back of her throat. She is currently compliant with use of her oxygen. From a respiratory standpoint she has been doing well however, she has been on quite a bit of oral steroids for her ulcerative colitis. With the steroids she has gained 14 pounds and has had problems with fluid retention. For her pulmonary nodules, she is due for a yearly CT in November 2024. DME: [employer] 2 L at night DATA: Nocturnal oximetry 02/2024 20 min less than 88%, lowest saturation 77% PAST MEDICAL HISTORY Diagnosis Date COPD (chronic obstructive pulmonary disease) (HCC) HTN (hypertension) IFG (impaired fasting glucose) 12/2023 5.7% NEVA (obstructive sleep apnea) Osteopenia 02/2024 Ulcerative colitis, unspecified ALLERGIES Allergen Reactions Wellbutrin [Bupropi* GI Upset caused some gi upset (abdominal pain and gas) dry mouth, and sore throat. losartan-hydroCHLOROthiazide (HYZAAR) 50-12.5 mg per tablet Take 1 tablet by mouth once daily. furosemide (LASIX) 20 mg tablet Take 1 tablet by mouth once daily. For leg swelling losartan (COZAAR) 50 mg tablet Take 1 tablet by mouth once daily. 1 daily in the evening cyclobenzaprine (FLEXERIL) 10 mg tablet Take 1 tablet by mouth three times a day as needed for pain. This can make you drowsy. Spirometers and Accessories bushra 1 Each as directed. Copd flare up, dyspnea, wheezing Mesalamine (PENTASA) 500 mg CR capsule Take 500 mg by mouth four times daily. [id number] (COSAMIN AVOCA, WITH BOSWELLIA,) 500-500-33.3-70 mg tab Take 1 tablet by mouth twice daily as needed. (Patient not taking: Reported on 04/30/2024) Social History Tobacco Use Smoking status: Former Current packs/day: 0.25 Average packs/day: 0.3 packs/day for 51.0 years (12.7 ttl pk-yrs) Types: Cigarettes Start date: 1973 Smokeless tobacco: Never Vaping Use Vaping status: Never Used Substance Use Topics Alcohol use: Not Currently Drug use: No PMH, Social history, family history and surgical history reviewed and updated in EMR REVIEW OF SYSTEMS: CONSTITUTIONAL: No fevers, chills, nightsweats, unintended weight loss. Weight gain HEENT: Some nasal congestion due to oxygen usage. CARDIOVASCULAR: No chest pain, palpitations. Edema PULM: See HPI GI: UC flare NEURO: Neuropathy INTEGUMENTARY: No new skin changes PHYSICAL EXAMINATION: BP 160/91 Pulse 93 Temp (Src) 99.2 (Temporal) Wt 246 lb 6.4 oz (111.8kg) SpO2 93% General Appearance: Morbidly obese female, NAD. Skin: Skin color, texture, turgor normal, no suspicious rashes or lesions. Oropharynx: No oral lesions or erythema. Neck: No masses or adenopathy. Lungs: Not labored, no wheezes or crackles. Heart: Regular rate and rhythm, no murmurs. Extremities: Edema, no clubbing. Assessment/Plan: 1. Asthma COPD overlap syndrome -Clinically stable. She will continue with albuterol as needed. Hold on scheduled ICS/LABA -Exhaled nitric oxide level at next visit 2. Nocturnal hypoxemia -Nocturnal hypoxemia due to obstructive sleep apnea and intolerance of CPAP -Patient is compliant with use of her supplemental oxygen 3. Morbid obesity -BMI 42 -Aggressive weight loss advised Yan Montaño MD Respiratory [facility] documented in this encounter [facility] 05-26-[address] [facility] 05-16-2024 Telephone encounter Note Pt. informed. [facility] Work Phone: 05-16-2024 Miscellaneous Notes Pt. informed. She is okay to stop gabapentin medication since on a low dose Gray Quintana DO Patient calls and states that she has been taking Gabapentin for Sciatica pain. Patient states that she has been only taking medication 1-2 times a day. Patient states that she feel tired with being on it and does not feel like doing anything. Patient states that medication has also been causing her issues with gas. Please review and advise, Kasey Perez RN documented in this encounter [facility] 05-16-2024 Telephone encounter Note She is okay to stop gabapentin medication since on a low dose Gray Quintana DO [facility] 05-16-2024 Telephone encounter Note Patient calls and states that she has been taking Gabapentin for Sciatica pain. Patient states that she has been only taking medication 1-2 times a day. Patient states that she feel tired with being on it and does not feel like doing anything. Patient states that medication has also been causing her issues with gas. Please review and advise, Kasey Perez RN [facility] 04-30-2024 History of Present illness Narrative Chief Complaint Patient presents with: nerve pain in legs and back HPI Nadja Chaudhari is a 74 year old female who presents here today for Above Complaints. Nadja is an established patient of Dr. Mariano DO. Concerns today... Please refer to TE from 04/28 regarding use of gabapentin as prescribed for recent visit on 04/[address] Winslow d/t sciatica pain. Due to reading side effects, patient does not want to be on this medication d/t stage II kidney disease and already being on lasix regimen. Pt did start gabapentin medication and it was effective. She stopped gabapentin and now symptoms are back (sciatica pain, R > L). Pt also not taking lasix regimen currently d/t concerns with kidneys. Does feel like she is mildly swollen and skin is tight everywhere. Prescribed lasix 20 mg daily. Also concerned about 2 lb weight gain over the past few months. Was on manager long term care steroid regimen d/t colitis flare up, stopped this at the beginning of March. Unable to take NSAIDs d/t colitis hx. Also c/o worsening reflux symptoms since starting gabapentin -- does not take any daily PPI or H2 ede d/t not wanting to be on daily medication. She has been prescribed this in the past and never utilized it. No other concerns or complaints. Past medical history, appointments, medications, allergies reviewed. Previous Medical History PAST MEDICAL HISTORY Diagnosis Date COPD (chronic obstructive pulmonary disease) (HCC) HTN (hypertension) IFG (impaired fasting glucose) 12/2023 5.7% NEVA (obstructive sleep apnea) Osteopenia 02/2024 Ulcerative colitis, unspecified Previous Surgical History PAST SURGICAL HISTORY Procedure Laterality Date LAMINECTOMY W/O FFD 1/2 VERT SEG LUMBAR Laminectomy, lumbar REPAIR ROTATOR CUFF,ACUTE TONSILLECTOMY PRIMARY/SECONDARY <AGE 12 Tonsillectomy Family History FAMILY HISTORY Problem Relation Age of Onset Colon Cancer Father Colon Cancer Paternal Grandfather Cancer Unknown Patient Allergies ALLERGIES Allergen Reactions Wellbutrin [Bupropi* GI Upset caused some gi upset (abdominal pain and gas) dry mouth, and sore throat. Current Medications Current Outpatient Medications on File Prior to Visit Medication Sig gabapentin (NEURONTIN) 100 mg capsule Take 1 capsule by mouth three times a day for 30 days. losartan-hydroCHLOROthiazide (HYZAAR) 50-12.5 mg per tablet Take 1 tablet by mouth once daily. furosemide (LASIX) 20 mg tablet Take 1 tablet by mouth once daily. For leg swelling losartan (COZAAR) 50 mg tablet Take 1 tablet by mouth once daily. 1 daily in the evening cyclobenzaprine (FLEXERIL) 10 mg tablet Take 1 tablet by mouth three times a day as needed for pain. This can make you drowsy. Spirometers and Accessories bushra 1 Each as directed. Copd flare up, dyspnea, wheezing [id number] (COSAMIN AVOCA, WITH BOSWELLIA,) 500-500-33.3-70 mg tab Take 1 tablet by mouth twice daily as needed. No current facility-administered medications on file prior to visit. Social History Social History Tobacco Use Smoking status: Former Average packs/day: 0.3 packs/day for 48.0 years (12.0 ttl pk-yrs) Types: Cigarettes Start date: 1973 Smokeless tobacco: Never Substance Use Topics Alcohol use: Yes Drug use: No REVIEW OF SYSTEMS: as above Reviewed relevant PMHx, PSHx, Social Hx, current medications and allergies. Review of Symptoms REVIEW OF SYSTEMS See HPI. EXAM: BP 124/78 (BP Site: Left Arm, BP Position: Sitting, BP Cuff Size: Large Adult) Pulse 93 Resp 16 Wt 111.5 kg (245 lb 12.8 oz) SpO2 94% BMI 42.17 kg/m General Appearance: Well appearing, alert, in no acute distress, well-hydrated, well nourished.. Skin: Skin color, texture, turgor normal, no suspicious rashes or lesions. Head: Normocephalic, no masses, lesions, tenderness or abnormalities. Lungs: Lungs clear to auscultation. No wheezing, rhonchi, rales.. Heart: RRR without murmur, gallop, or rubs. No ectopy. Abdomen: Normal abdominal exam, Abdomen soft, non-tender. Bowel sounds normal. No masses, organomegaly. Extremities: No deformities, edema, skin discoloration, clubbing or cyanosis. Good capillary refill. . Health Maintenance List Alpha-1 Antitrypsin Deficiency Screening Never done Shingrix Vaccine(1 of 2) Never done Advance Directive Discussion Never done RSV Vaccine(1 - Risk 60-74 years 1-dose series) due on 08/23/2024 Influenza Vaccine(1) due on 11/24/2024 Covid-19 Vaccine(1 - season) due on 04/30/2025 Depression Screening due on 10/16/2024 Anxiety Screening due on 10/16/2024 Serum Creatinine due on 12/02/2024 Colorectal Cancer Screening due on 12/23/2024 Mammogram Screening due on 03/07/2025 Annual PCP Team Chronic Disease Visit due on 04/26/2025 BP Controlled (<130/80) due on 04/26/2025 Diabetes Screening due on 01/23/2027 Lipid Screening due on 07/03/2027 DTaP,Tdap,Td Vaccine(2 - Td or Tdap) due on 01/24/2028 Bone Density Screening Completed Spirometry Completed Pneumococcal Vaccine: 65+ Completed Hepatitis C Screening Discontinued ASSESSMENT/PLAN: 1. Sciatica, right side - ICD9: 724.3, ICD10: M54.31 (primary diagnosis) Sciatica Long discussion about risk vs benefit of gabapentin regimen. Pt agreeable to continue on low dose gabapentin as needed. CMP ordered to have drawn in 1 week (after routinely on regimen) to ensure kidney function stable. Want to avoid steroid use for this d/t colitis hx and recent [facility] steroid use likely masking prior symptoms. - COMPREHENSIVE METABOLIC PANEL 2. CKD (chronic kidney disease) stage 2, GFR 60-89 ml/min - ICD9: 585.2, ICD10: N18.2 See above. - COMPREHENSIVE METABOLIC PANEL 3. Heartburn - ICD9: 787.1, ICD10: R12 Try OTC TUMs as needed short term with the gabapentin regimen. Pt agreeable. 4. Pedal edema - ICD9: 782.3, ICD10: R60.0 Continue with prescribed lasix regimen DAILY. Pt agreeable. Will monitor kidney function with lab work. - COMPREHENSIVE METABOLIC PANEL RTO as needed. Prescription instructions reviewed with patient as applicable. Potential red flag symptoms discussed with the patient. Reviewed appropriate action plan to take if red flag symptoms occur. Patient agreeable to treatment plan. Christina Vega APRN.TOOL 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 [address] [place] [address] documented in this encounter [facility] 04-30-[address] [facility] 04-29-2024 Telephone encounter Note Pt notified. Started asking questions about what to do with her swelling of her legs and her kidneys and that she doesn't want to be on any medications, doesn't want to use the Lasix. I advised her that with those concerns she would need to follow with her PCP. Transferred to director of field service to set up appt with PCP. Rosita Peraza MA [facility] 04-29-2024 Miscellaneous Notes Pt notified. Started asking questions about what to do with her swelling of her legs and her kidneys and that she doesn't want to be on any medications, doesn't want to use the Lasix. I advised her that with those concerns she would need to follow with her PCP. Transferred to director of field service to set up appt with PCP. Rosita Peraza MA With the low dose of gabapentin that she was given I think that is the safest medication for her to use, especially if it was effective. Martín Winslow MD Patient of Dr. Quintana's calling and states she was seen by Dr. Winslow this past Sunday for sciatica. Gabapentin was prescribed and patient has began the medication. Her sciatica is improving. Patient reports she has reviewed the list of side effects with the gabapentin, and due to the fact that she has Stage II kidney disease and uses lasix intermittently as well, she states she would rather not use gabapentin. Reports she would like something else ordered if possible, that would be better on her kidneys. She states her GERD has been affected since starting the gabapentin as well. Will send message to Dr. Winslow for review. Please call patient with update. [phone] Thank you. documented in this encounter [facility] 04-29-2024 Telephone encounter Note With the low dose of gabapentin that she was given I think that is the safest medication for her to use, especially if it was effective. Martín Winslow MD [facility] 04-28-2024 Telephone encounter Note Patient of Dr. Quintana's calling and states she was seen by Dr. Winslow this past Sunday for sciatica. Gabapentin was prescribed and patient has began the medication. Her sciatica is improving. Patient reports she has reviewed the list of side effects with the gabapentin, and due to the fact that she has Stage II kidney disease and uses lasix intermittently as well, she states she would rather not use gabapentin. Reports she would like something else ordered if possible, that would be better on her kidneys. She states her GERD has been affected since starting the gabapentin as well. Will send message to Dr. Winslow for review. Please call patient with update. [phone] Thank you. [facility] 04-26-2024 History of Present illness Narrative Chief Complaint Patient presents with: Back Pain HPI Nadja Chaudhari is a 74 year old female who presents here today for a same day visit. Established pt of Dr. Quintana's, new to this office here today for an acute visit. Pt called into the office and spoke with a Triage Nurse for right sided lower back that radiates into her buttocks, down her right leg into thigh and calf. Notes was having weakness in ankle, but now okay. Now hurting her whole right side. Pain is constant. This started about a month ago, when the weather got cold. Pt reports pain when waking up and with walking too long. Notes it's hard to get in and out of her car. States her leg isn't hurting as bad as when she got up this morning. Doesn't have any pain when sitting in her recliner. Pain rated a 9/10. Has been sitting more lately. Has left over Flexeril 10 mg she took last night, but wasn't able to tell a significant difference in her pain. Was having some increased leg edema so she was taking some Lasix she had at home as well. Notes she just got off Prednisone on 04/01/24 due to a colitis flare, does not want to go back on this as she had difficulty getting off it. She is currently not taking anything for pain, is not able to take NSAID's due to colitis. States Tylenol doesn't help her pain. Is icing and stretching. History of surgery for herniated disc over 25 years ago Past medical history, appointments, medications, allergies reviewed. Previous Medical History PAST MEDICAL HISTORY Diagnosis Date COPD (chronic obstructive pulmonary disease) (HCC) HTN (hypertension) IFG (impaired fasting glucose) 12/2023 5.7% NEVA (obstructive sleep apnea) Osteopenia 02/2024 Ulcerative colitis, unspecified Previous Surgical History PAST SURGICAL HISTORY Procedure Laterality Date LAMINECTOMY W/O FFD 05/29 VERT SEG LUMBAR Laminectomy, lumbar REPAIR ROTATOR CUFF,ACUTE TONSILLECTOMY PRIMARY/SECONDARY <AGE 12 Tonsillectomy Family History FAMILY HISTORY Problem Relation Age of Onset Colon Cancer Father Colon Cancer Paternal Grandfather Cancer Unknown Patient Allergies ALLERGIES Allergen Reactions Wellbutrin [Bupropi* GI Upset caused some gi upset (abdominal pain and gas) dry mouth, and sore throat. Current Medications Current Outpatient Medications on File Prior to Visit Medication Sig predniSONE (DELTASONE) 10 mg tablet TAKE 4 TABS BY MOUTH DAILY X7 DAYS, 3 TABS DAILY X7 DAYS, 2 TABS DAILY X7 DAYS, 1 TAB DAILY X7 DAYS Mesalamine (LIALDA) 1.2 gram EC tablet Take 1.2 g by mouth two times a day. losartan-hydroCHLOROthiazide (HYZAAR) 50-12.5 mg per tablet Take 1 tablet by mouth once daily. furosemide (LASIX) 20 mg tablet Take 1 tablet by mouth once daily. For leg swelling (Patient not taking: Reported on 02/25/2024) losartan (COZAAR) 50 mg tablet Take 1 tablet by mouth once daily. 1 daily in the evening predniSONE (DELTASONE) 20 mg tablet Take 2 tablets by mouth once daily. (Patient not taking: Reported on 02/25/2024) cyclobenzaprine (FLEXERIL) 10 mg tablet Take 1 tablet by mouth three times a day as needed for pain. This can make you drowsy. Spirometers and Accessories bushra 1 Each as directed. Copd flare up, dyspnea, wheezing [id number] (COSAMIN AVOCA, WITH BOSWELLIA,) 500-500-33.3-70 mg tab Take 1 tablet by mouth twice daily as needed. No current facility-administered medications on file prior to visit. Social History Social History Tobacco Use Smoking status: Former Average packs/day: 0.3 packs/day for 48.0 years (12.0 ttl pk-yrs) Types: Cigarettes Start date: 1973 Smokeless tobacco: Never Substance Use Topics Alcohol use: Yes Drug use: No EXAM: BP 120/78 (BP Site: Left Arm, BP Position: Sitting, BP Cuff Size: Large Adult) Pulse 80 Resp 18 Wt 110.4 kg (243 lb 6.2 oz) BMI 41.75 kg/m General Appearance: Well appearing, alert, in no acute distress, well-hydrated, well nourished. and Morbidly obese. Back:indicates pain mainly right lower back and upper buttocks. Fair ROM< some pain with bending to left, neg seated SLR Health Maintenance List BP Controlled (<130/80) Never done Alpha-1 Antitrypsin Deficiency Screening Never done Shingrix Vaccine(1 of 2) Never done Advance Directive Discussion Never done Influenza Vaccine(1) due on 01/27/2024 Covid-19 Vaccine( season) Never done RSV Vaccine(1 - Risk 60-74 years 1-dose series) due on 08/23/2024 Depression Screening due on 10/16/2024 Anxiety Screening due on 10/16/2024 Serum Creatinine due on 12/02/2024 Colorectal Cancer Screening due on 12/23/2024 Annual PCP Team Chronic Disease Visit due on 01/22/2025 Mammogram Screening due on 03/07/2025 Diabetes Screening due on 01/23/2027 Lipid Screening due on 07/03/2027 DTaP,Tdap,Td Vaccine(2 - Td or Tdap) due on 01/24/2028 Bone Density Screening Completed Spirometry Completed Pneumococcal Vaccine: 65+ Completed Hepatitis C Screening Discontinued Data reviewed None ASSESSMENT/PLAN: 1. Sciatica, right side - ICD9: 724.3, ICD10: M54.31 Mechanical low back pain As she cannot take NSAIDs and does not want prednisone with give Rx for gabapentin to help control pain. Continue exercises at home; discussed PT as possibility. Follow up prn Medical Decision Making: Problems: Low: Acute, uncomplicated illness or injury Risk: Moderate: Drug management Medical Decision Making Level: 3 - Low Martín Winslow MD documented in this encounter [facility] 04-26-[address] [facility] 04-26-2024 Telephone encounter Note Protocol recommends see provider in 4 hours. Pt scheduled with Dr Winslow at 1020. Care plan reviewed with patient. Patient voices understanding. Advised patient that if symptoms get worse to be evaluated in ER. Reason for Disposition [1] Pain radiates into the thigh or further down the leg AND [2] both legs Answer Assessment - Initial Assessment Questions 1. ONSET: Started about a month ago, when the cold weather started. 2. LOCATION: Hurts in R mid to lower back into buttocks and down R leg into thigh and calf. Said had hurt across her whole before now just R side. Said pain started in her R lrg, unsure if her L leg had hurt. 3. SEVERITY: - MILD (1-3): Doesn't interfere with normal activities. - MODERATE (4-7): Interferes with normal activities or awakens from sleep. - SEVERE (8-10): Excruciating pain, unable to do any normal activities. Pt reports when she wakes up the pain is a 9/10 aching and she get up and does stretching and she lays in a recliner she doesn't have any pain. Pt states when she is up walking it is a 9/10 aching, and she ankles had felt weak before but ok now. 4. PATTERN: Reports the pain is constant. 5. RADIATION: The pain doesn't shoot into your legs or somewhere else, states it's constant. 6. CAUSE: She states she does more sitting than she used to and doesn't know if this is causing the back pain. 7. BACK OVERUSE: Denies recent lifting of heavy objects, strenuous work or exercise. 8. MEDICINES: Pt states acetaminophen doesn't do anything for her and she can't take NSAIDS because of her colitis. She has used ice on her back. Has tried stretching exercises. 9. NEUROLOGIC SYMPTOMS: Pt reports some weakness in her ankles and back. Pt denies numbness, or problems with bowel/bladder control. 10. OTHER SYMPTOMS: Pt denies fever, abdomen pain, burning with urination, or blood in urine. 11. : Postmenopausal Protocols used: Back [id number] [facility] 04-26-2024 Miscellaneous Notes Protocol recommends see provider in 4 hours. Pt scheduled with Dr Winslow at 1020. Care plan reviewed with patient. Patient voices understanding. Advised patient that if symptoms get worse to be evaluated in ER. Reason for Disposition [1] Pain radiates into the thigh or further down the leg AND [2] both legs Answer Assessment - Initial Assessment Questions 1. ONSET: Started about a month ago, when the cold weather started. 2. LOCATION: Hurts in R mid to lower back into buttocks and down R leg into thigh and calf. Said had hurt across her whole before now just R side. Said pain started in her R lrg, unsure if her L leg had hurt. 3. SEVERITY: - MILD (1-3): Doesn't interfere with normal activities. - MODERATE (4-7): Interferes with normal activities or awakens from sleep. - SEVERE (8-10): Excruciating pain, unable to do any normal activities. Pt reports when she wakes up the pain is a 9/10 aching and she get up and does stretching and she lays in a recliner she doesn't have any pain. Pt states when she is up walking it is a 9/10 aching, and she ankles had felt weak before but ok now. 4. PATTERN: Reports the pain is constant. 5. RADIATION: The pain doesn't shoot into your legs or somewhere else, states it's constant. 6. CAUSE: She states she does more sitting than she used to and doesn't know if this is causing the back pain. 7. BACK OVERUSE: Denies recent lifting of heavy objects, strenuous work or exercise. 8. MEDICINES: Pt states acetaminophen doesn't do anything for her and she can't take NSAIDS because of her colitis. She has used ice on her back. Has tried stretching exercises. 9. NEUROLOGIC SYMPTOMS: Pt reports some weakness in her ankles and back. Pt denies numbness, or problems with bowel/bladder control. 10. OTHER SYMPTOMS: Pt denies fever, abdomen pain, burning with urination, or blood in urine. 11. : Postmenopausal Protocols used: Back [id number] documented in this encounter [facility] 04-04-2024 Telephone encounter Note Call received from Pt - name & verified. Pt calls and reports that she started using humidification on her concentrator a couple of days ago. Since that time, each morning her throat has become more sore. She states I can hardly talk this morning because it's so sore. Pt also c/o a stuffy nose and having to clear her throat a lot. She has coughed up some brown, thick sputum this morning. Denies fever or worsening dyspnea. Requesting advice. Please return call to Pt at home - Violette Townsend RN April 04, 2024 8:56 AM [facility] 04-04-2024 Miscellaneous Notes Call received from Pt - name & verified. Pt calls and reports that she started using humidification on her concentrator a couple of days ago. Since that time, each morning her throat has become more sore. She states I can hardly talk this morning because it's so sore. Pt also c/o a stuffy nose and having to clear her throat a lot. She has coughed up some brown, thick sputum this morning. Denies fever or worsening dyspnea. Requesting advice. Please return call to Pt at home - Violette Townsend RN April 04, 2024 8:56 AM documented in this encounter [facility] 03-24-2024 Telephone encounter Note Images from the original note were not included. Yan Montaño MD You54 minutes ago (8:54 AM) Doubt symptoms due to too much oxygen. We can repeat her nocturnal oximetry on the 2 L Spoke with patient. She will see if adding the humidifer to her concentrator is beneficial. If she continues to have symptoms, she will repeat the nocturnal oximetry on 2L at that time. Brenda Roe LPN [facility] 03-24-2024 Miscellaneous Notes Images from the original note were not included. Yan Montaño MD You54 minutes ago (8:54 AM) Doubt symptoms due to too much oxygen. We can repeat her nocturnal oximetry on the 2 L Spoke with patient. She will see if adding the humidifer to her concentrator is beneficial. If she continues to have symptoms, she will repeat the nocturnal oximetry on 2L at that time. Brenda Roe LPN Patient calling and reports she noticed last night when she woke up she felt chest discomfort that went into her back like my lungs were aching. She has not experienced this previously since starting the oxygen two weeks ago. Symptoms did resolve. She is awaiting a humidifer from her [employer] company for her concentrator, but she is concerned if the chest discomfort may be indicative of over oxygenation vs. a dry environment? Currently using 2L. She is using [place] nasal gel to help with dry nasal passages. Brenda Roe LPN documented in this encounter [facility] 03-21-2024 Telephone encounter Note Patient calling and reports she noticed last night when she woke up she felt chest discomfort that went into her back like my lungs were aching. She has not experienced this previously since starting the oxygen two weeks ago. Symptoms did resolve. She is awaiting a humidifer from her [employer] company for her concentrator, but she is concerned if the chest discomfort may be indicative of over oxygenation vs. a dry environment? Currently using 2L. She is using [place] nasal gel to help with dry nasal passages. Brenda Roe LPN [facility] 03-19-2024 Telephone encounter Note Order signed. Neha [facility] Work Phone: 03-19-2024 Miscellaneous Notes Order signed. Neha Patient is asking for order for humidifier for home O2 concentrator. [employer] preferred DME. Pended. Brenda Roe LPN documented in this encounter [facility] 03-19-2024 Telephone encounter Note Patient is asking for order for humidifier for home O2 concentrator. [employer] preferred DME. Pended. Brenda Roe LPN [facility] 03-17-2024 Telephone encounter Note Pt called and notified of results below. Verbalized understanding. Nereida Mckenna MA [facility] 03-17-2024 Miscellaneous Notes Pt called and notified of results below. Verbalized understanding. Nereida Mckenna MA Left message to return call Yoselin Hull MA Please let her know that her mammogram shows no concerns, recommend continuing to follow up yearly with screening mammogram. Amelia Trotter APRN.JAMI documented in this encounter [facility] 03-14-2024 Telephone encounter Note Patient called in and states she has been experiencing increased SOB with walking outside. She states she usually walks 20-30 minutes on her treadmill without issues in the past. She states she is on 02 at night but not during the day. Let patient know to check her Sp02 while on her walks as she has not been. She denies any chest tightness or cough. I also let her know to see if she has increased SOB being outside in the cold walking vs inside on the treadmill. Instructed patient to call back if the SOB increased and or if her Sp02 drops with exercise. Tina Yee LPN [facility] 03-14-2024 Miscellaneous Notes Patient called in and states she has been experiencing increased SOB with walking outside. She states she usually walks 20-30 minutes on her treadmill without issues in the past. She states she is on 02 at night but not during the day. Let patient know to check her Sp02 while on her walks as she has not been. She denies any chest tightness or cough. I also let her know to see if she has increased SOB being outside in the cold walking vs inside on the treadmill. Instructed patient to call back if the SOB increased and or if her Sp02 drops with exercise. Tina Yee LPN documented in this encounter [facility] 03-13-2024 Telephone encounter Note Left message to return call Yoselin Hull MA [facility] 03-13-2024 Telephone encounter Note Please let her know that her mammogram shows no concerns, recommend continuing to follow up yearly with screening mammogram. Amelia Trotter APRN.TOOL 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 T [facility] Work Phone: 03-13-2024 Telephone encounter Note Pt informed Yoselin Hull MA [facility] 03-13-2024 Miscellaneous Notes Pt informed Yoselin Hull MA Please inform patient that her bone density shows IMPRESSION: THE LOWEST T-SCORE IS -1.2 IN THE RIGHT HIP 1) DIAGNOSIS (based on BMD alone): OSTEOPENIA BMD is showing some beginning bone mass loss (osteopenia), which may increase the risk of insufficiency fractures. I suggest 6440-8726 mg of Calcium citrate into 2 doses daily as well as 1000 units of Vitamin D3 daily. Weight bearing exercise, if not already doing, and f/u exam in 2 years for bone density. Gray Quintana DO documented in this encounter [facility] 03-13-2024 Telephone encounter Note Please inform patient that her bone density shows IMPRESSION: THE LOWEST T-SCORE IS -1.2 IN THE RIGHT HIP 1) DIAGNOSIS (based on BMD alone): OSTEOPENIA BMD is showing some beginning bone mass loss (osteopenia), which may increase the risk of insufficiency fractures. I suggest 0494-9015 mg of Calcium citrate into 2 doses daily as well as 1000 units of Vitamin D3 daily. Weight bearing exercise, if not already doing, and f/u exam in 2 years for bone density. Gray Quintana DO [facility] 03-11-2024 Telephone encounter Note Pt informed Yoselin Hull MA [facility] 03-11-2024 Miscellaneous Notes Pt informed Yoselin Hull MA Please call patient and make sure that she is aware that her recent previous labs show that her A1c was up at 5.7% which is in the prediabetes range. Needs to continue to work on cutting back on sugars and starches in her diet. Need for increased exercise and weight loss as well Gray Quintana DO documented in this encounter [facility] 03-11-2024 Telephone encounter Note Please call patient and make sure that she is aware that her recent previous labs show that her A1c was up at 5.7% which is in the prediabetes range. Needs to continue to work on cutting back on sugars and starches in her diet. Need for increased exercise and weight loss as well Gray Quintana DO [facility] 03-07-2024 History of Present illness Narrative Radiology Service Progress Note PATIENT NAME: Nadja Chaudhari DATE OF SERVICE: March 07, 2024 TIME: 12:53 PM PATIENT IDENTITY VERIFICATION COMPLETED USING TWO (2) IDENTIFIERS: Name and Date of confirmed by patient verbally. FALL SCREENING: Has the patient had 2 falls in the last year or 1 fall with injury or currently using an Ambulatory Assistive Device (Walker, Cane, Wheelchair, Crutches, etc.)? No PATIENT GENDER DATA: Female. status: : No status: NO. PATIENT RELEVANT IMPLANT DATA REVIEWED: Not Applicable PATIENT PRESENTS WITH AN IMPLANTABLE OR ATTACHED ZOOLOGY TEACHER: No RADIOLOGY DEPARTMENT: Bone Density PERIPHERAL IV DATA: Not applicable SIGNED BY: RT Elisa(R) March 07, 2024 12:53 PM documented in this encounter [facility] 03-07-[address] [facility] 02-25-2024 Instructions Yan Montaño MD - 02/25/2024 1:23 PM EDT Overnight oximetry test to be scheduled documented in this encounter [facility] 02-25-2024 History of Present illness Narrative Images from the original note were not included. . Respiratory [facility] Note Patient name: Nadja Chaudhari PCP: Gray Quintana DO Referring Physician: same Consultation requested by Dr. Quintana for an opinion regarding COPD. My final recommendations will be communicated back to the requesting physician by way of shared Medical record or letter to requesting physician via US mail. CC: COPD HPI: Nadja Chaudhari 73 year old female former average 1/ PPD smoker for 50 years, quitting in 2021 with PMH significant for ulcerative colitis, COPD, CKD, HTN, severe NEVA intolerant of CPAP being referred for evaluation of her obstructive lung disease. She denied history of childhood asthma. She has been evaluated by ENT in the past for allergies but negative workup. She has chronic nasal blockage not responsive to nasal steroids or antihistamines. She previously followed with [place] [facility] with initial evaluation in 2019 due to persistent cough, congestion and wheezing following an URI. Pulmonary function test at that time showed mild obstruction without improvement postbronchodilator, mild restriction and normal diffusing capacity. Respiratory infection improved, she respiratory symptoms and was treated with as needed albuterol. In 2021, she recrudescence of her respiratory symptoms and exhaled nitric oxide level at that time noted to be 101 ppb. She was started on Symbicort resulting in good control of her symptoms. She states that she has been doing well from a respiratory standpoint other than some shortness of breath with exertion. She denies chronic cough, she has not noted wheezing, chest tightness. She has heavy breathing today and states that most providers note her heavy breathing but she does not feel dyspneic. She states she is not limited with activity but more so limited by heaviness in her legs and bilateral knee pain. She has not been on any inhaled therapy for years. Other issues include her untreated sleep apnea, intolerant of CPAP. She has a history of ulcerative colitis which has not been controlled ever since she stopped smoking. She has been on oral steroids more often than not which has led to increased weight gain. Her spirometry today is only pertinent for obstruction in her mid flows and a normal diffusing capacity, but she is currently on 30 mg of prednisone. DATA: PFT: Labs: Component Ref Range & Units 1 mo ago CALPROTECTIN, FECAL QUANTITATIVE <50 ug/g 1,880 High CALPROTECTIN, FECAL INTERP Normal Elevated Abnormal Component Ref Range & Units 6 mo ago NT Pro BNP <125 pg/mL 64 Imaging / Diagnostic Studies: CTA chest [facility] 11/2023: Chest CT 2022: PAST MEDICAL HISTORY Diagnosis Date COPD (chronic obstructive pulmonary disease) (HCC) HTN (hypertension) NEVA (obstructive sleep apnea) Ulcerative colitis, unspecified ALLERGIES Allergen Reactions Wellbutrin [Bupropi* GI Upset caused some gi upset (abdominal pain and gas) dry mouth, and sore throat. predniSONE (DELTASONE) 10 mg tablet TAKE 4 TABS BY MOUTH DAILY X7 DAYS, 3 TABS DAILY X7 DAYS, 2 TABS DAILY X7 DAYS, 1 TAB DAILY X7 DAYS Mesalamine (LIALDA) 1.2 gram EC tablet Take 1.2 g by mouth two times a day. losartan-hydroCHLOROthiazide (HYZAAR) 50-12.5 mg per tablet Take 1 tablet by mouth once daily. losartan (COZAAR) 50 mg tablet Take 1 tablet by mouth once daily. 1 daily in the evening furosemide (LASIX) 20 mg tablet Take 1 tablet by mouth once daily. For leg swelling (Patient not taking: Reported on 02/25/2024) predniSONE (DELTASONE) 20 mg tablet Take 2 tablets by mouth once daily. (Patient not taking: Reported on 02/25/2024) cyclobenzaprine (FLEXERIL) 10 mg tablet Take 1 tablet by mouth three times a day as needed for pain. This can make you drowsy. Spirometers and Accessories bushra 1 Each as directed. Copd flare up, dyspnea, wheezing [id number] (COSAMIN AVOCA, WITH BOSWELLIA,) 500-500-33.3-70 mg tab Take 1 tablet by mouth twice daily as needed. Social History Tobacco Use Smoking status: Former Average packs/day: 0.3 packs/day for 48.0 years (12.0 ttl pk-yrs) Types: Cigarettes Start date: 1973 Smokeless tobacco: Never Substance Use Topics Alcohol use: Yes Drug use: No Worked at [employer] Pets: cat FAMILY HISTORY Problem Relation Age of Onset Colon Cancer Father Colon Cancer Paternal Grandfather Cancer Unknown PAST SURGICAL HISTORY Procedure Laterality Date LAMINECTOMY W/O FFD 05/29 VERT SEG LUMBAR Laminectomy, lumbar REPAIR ROTATOR CUFF,ACUTE TONSILLECTOMY PRIMARY/SECONDARY <AGE 12 Tonsillectomy PMH, Social history, family history and surgical history reviewed and updated in EMR REVIEW OF SYSTEMS: CONSTITUTIONAL: No fevers, chills, nightsweats, unintended weight loss HEENT: Denies headaches but has nasal congestion/sinus symptoms EYES: No tearing or itchy eyes CARDIOVASCULAR: No chest pain, palpitations, orthopnea, PND,edema. PULM: See HPI GI: UC symptoms : No urinary complaints, including dysuria, gross hematuria or pyuria. NEURO: No new balance problems, peripheral weakness/paresthesias or numbness of concern. MUSC-SKEL: Bilateral knee pain. PSY: No concerns regarding depression, anxiety INTEGUMENTARY: No new skin changes or rashes PHYSICAL EXAMINATION: BP 130/86 Pulse 78 Resp 18 Ht 5' 4.02 (1.63m) Wt 240 lb (108.9kg) SpO2 96% BMI 41.18 kg/(m^2). General Appearance: Obese female, heavy breathing but not dyspneic. Skin: Skin color, texture, turgor normal, no suspicious rashes or lesions. Head: Normocephalic, no masses, lesions, tenderness or abnormalities. Eyes: Sclera, conjunctiva normal. Oropharynx: No oral lesions, Mallampati 3. Neck: No JVD, no masses, no adenopathy. Lungs: Not labored, normal to percussion, no wheezes or crackles. Heart: Regular rate and rhythm, no murmurs or gallops. Extremities: No significant edema, no clubbing. Assessment/Plan: 1. Asthma COPD overlap -Past pulmonary function testing and elevated exhaled nitric oxide level consistent with asthma COPD overlap -Currently not obstructed and not complaining of respiratory symptoms so would continue albuterol as needed -She will need exhaled nitric oxide level and repeat spirometry once she is off oral steroids 2. Severe obstructive sleep apnea -Overnight oximetry testing. Patient agreeable to nocturnal oxygen if she qualifies although this is suboptimal in the face of severe NEVA -Not a candidate for Inspire due to the severity of her sleep apnea and her morbid obesity 3. Former cigarette smoker -Former less than 20-weta-dvrs smoker -Does not qualify for lung cancer screening based on amount of smoking history 4. Morbid obesity -Morbid obesity is the most likely etiology for her heavy breathing -Weight loss advised 5. Lung nodules -Multiple pulmonary nodules stable at least for 1 year -Will need surveillance for 2 years. Previous report from CT dated 2005 would suggest nodules are chronic and stable but images are unavailable for comparison Yan Montaño MD [facility] documented in this encounter [facility] 02-25-[address] [facility] 02-25-2024 Nurse Note Intake information documented in the prior visit with ESTHER Koenig today. [facility] 02-25-2024 Nurse Note Intake information documented in the prior visit with ESTHER Koenig today. documented in this encounter [facility] 02-25-[address] [facility] 02-25-2024 History of Present illness Narrative PULM FUNCTION: Provider: Carolyn Ramirez APRN.TOOL HONING MACHINE SET UP OPERATOR Assisting Tech: Meghana Ho RPFT Spirometry: 1 DLCO: 1 LV - Box: 1 documented in this encounter [facility] 02-05-2024 Evaluation + Plan note Diagnostic Tests PendingHepatitis A Antibody IgG 02/05/24ep B Core Ab, Tot 02/05/24ep Be Ag 02/05/24QFT-TB Plus (Client Incubated) 02/05/24 [facility] 01-23-2024 Instructions Gray Quintana DO - 01/23/2024 5:14 PM EDT BONE MINERAL DENSITY PATIENT INSTRUCTIONS ======== Bone mineral density testing measures the amount of calcium in certain parts of your bones. This information determines how strong your bones are. The test is used to detect osteoporosis, a disease in which the bone's mineral content and density are low, increasing a person's risk of fractures. The lumbar spine (lower back) and the hip are the skeletal sites usually examined. For the test, remember that: 1. You cannot take this test if you are . 2. Eat a normal diet on the day of the test. 3. Take your medications as you normally would. 4. DO NOT take calcium supplements (such as Tums) for 24 hours before the test. 5. On the day of the test, leave valuables (jewelry or credit cards) at home. 6. The test should be performed prior to oral, rectal or IV contrast studies, or at least 7 days after any of these studies. For the test, you may be asked to wear a hospital gown. You will lie on your back, on a padded table, in a comfortable position. Generally, you can resume your usual activities immediately. documented in this encounter [facility] 01-23-[address] [facility] 01-23-2024 History of Present illness Narrative CC: Nadja Chaudhari is a 73 year old female who presents to the office for follow up HPI: Colitis was recently flared up again and she was restarted on prednisone. Seeing Nodulizer Dr. Dorsey specialist. Was on Mesalamine in the past. Tried on Asacol but too expensive. Quit smoking and then feels her colitis flared up soon after this. She was trying to avoid being on medications if she was able to. HTN, well controlled overall, needing rx refilled. Has had some leg edema since being on the prednisone COPD, no recent major flare ups, rare use of Albuterol. She is off tobacco, feels symptoms have improved over the years. Recently seen by ENT for deviated septum. The surgeon wasn't able to do the procedure per patient due to fluctuating pulse ox levels. She feels that her dyspnea is improved She is struggling with fatigue symptoms recently PAST MEDICAL HISTORY No date: Ulcerative colitis, unspecified PAST SURGICAL HISTORY No date: LAMINECTOMY W/O FFD 05/29 VERT SEG LUMBAR Comment: Laminectomy, lumbar No date: TONSILLECTOMY PRIMARY/SECONDARY <AGE 12 Comment: Tonsillectomy Current Outpatient Medications Medication Sig losartan-hydroCHLOROthiazide (HYZAAR) 50-12.5 mg per tablet Take 1 tablet by mouth once daily. furosemide (LASIX) 20 mg tablet Take 1 tablet by mouth once daily. For leg swelling losartan (COZAAR) 50 mg tablet Take 1 tablet by mouth once daily. 1 daily in the evening predniSONE (DELTASONE) 20 mg tablet Take 2 tablets by mouth once daily. cyclobenzaprine (FLEXERIL) 10 mg tablet Take 1 tablet by mouth three times a day as needed for pain. This can make you drowsy. Spirometers and Accessories bushra 1 Each as directed. Copd flare up, dyspnea, wheezing [id number] (COSAMIN AVOCA, WITH BOSWELLIA,) 500-500-33.3-70 mg tab Take 1 tablet by mouth twice daily as needed. No current facility-administered medications for this visit. ALLERGIES Allergen Reactions Wellbutrin [Bupropi* GI Upset caused some gi upset (abdominal pain and gas) dry mouth, and sore throat. Social History Tobacco Use Smoking status: Former Current packs/day: 0.00 Types: Cigarettes Quit date: 12/2021 Years since quittin.0 Smokeless tobacco: Never Substance Use Topics Alcohol use: Yes Drug use: No ROS: See HPI PE: BP 124/70 Pulse 80 Temp (Src) 98.8 (Left Tympanic) Resp 28 Wt 242 lb (109.8kg) Gen: A&OX3, NAD, non-toxic appearing HEENT: PERRLA, EOMs intact b/l, nares without drainage, pharynx without erythema, exudate, lesions, or drainage. Uvula midline. Neck: No LAD, no thyromegaly, no meningismus. CV: RRR, no murmur Lungs: CTA b/l, no wheezing Skin: No rashes, lesions, or wounds on exposed skin. 1+ leg edema to mid tibial area b/l without erythema or calf pain Central obesity Fatigued appearing Mild bloating to abdomen ASSESSMENT/PLAN: 1. Hypertension, essential - ICD9: 401.9, ICD10: I10 (primary diagnosis) - Controlled - Continue current medications - Recommend home blood pressure monitoring, to bring results to next visit - Encouraged sodium restriction, DASH or Mediterranean diet - Recommend regular aerobic exercise - Discussed need for and benefit of weight loss. BMI 40.32 kg/(m^2) - LOSARTAN 50 MG-HYDROCHLOROTHIAZIDE 12.5 MG TABLET - FUROSEMIDE 20 MG TABLET - LOSARTAN 50 MG TABLET 2. Encounter for screening mammogram for malignant neoplasm of breast - ICD9: V76.12, ICD10: Z12.31 - Set up for mammogram, yearly mammogram recommended - Encouraged monthly BSE - Increase calcium intake with supplements or by diet (goal of 8839-2496 mg/day - EMMANUELLE SCREENING 3. Asymptomatic postmenopausal status - ICD9: V49.81, ICD10: Z78.0 - DXA-AXIAL SKELETON 4. Disorder of bone and cartilage - ICD9: 733.90, ICD10: M89.9, M94.9 - set up for BMD AP Spine and Hip Unilateral - Reviewed the need for Calcium and Vitamin D supplements and weight bearing exercise as tolerated - DXA-AXIAL SKELETON 5. Chronic obstructive pulmonary disease, unspecified COPD type (HCC) - ICD9: 496, ICD10: J44.9 Stable symptoms, prn albuterol only at this time, needs to stay tobacco free 6. Ulcerative colitis without complications, unspecified location (HCC) - ICD9: 556.9, ICD10: K51.90 See HPI Follow up with Nodulizer Prednisone recently given for colitis flare up which is causing leg edema 7. CKD (chronic kidney disease) stage 2, GFR 60-89 ml/min - ICD9: 585.2, ICD10: N18.2 - eGFR: 60 Stable - Counseled on avoiding NSAIDs, adequate hydration - Counseled on low sodium diet - FUROSEMIDE 20 MG TABLET 8. Pedal edema - ICD9: 782.3, ICD10: R60.0 rx prn use - FUROSEMIDE 20 MG TABLET 9. Wheezing - ICD9: 786.07, ICD10: R06.2 - FUROSEMIDE 20 MG TABLET 10. SOB (shortness of breath) - ICD9: 786.05, ICD10: R06.02 - FUROSEMIDE 20 MG TABLET 11. Vitamin D deficiency - ICD9: 268.9, ICD10: E55.9 Continue supplement - VITAMIN D 25 HYDROXY 12. Fatigue, unspecified type - ICD9: 780.79, ICD10: R53.83 Recheck labs - MAGNESIUM - VITAMIN B12 - VITAMIN D 25 HYDROXY - THYROID STIMULATING HORMONE - T4 FREE/FREE THYROXINE 13. IFG (impaired fasting glucose) - ICD9: 790.21, ICD10: R73.01 Recheck labs - HEMOGLOBIN A1C Gray Quintana DO Return if no improvement. Follow up with Gray Quintana DO. To ER if develops chest pain, shortness of breath. Discussed risks, benefits, alternatives, and potential side effects of medications. Patient/Guardian expressed understanding and agreed with the plan. See patient instructions. Gray Quintana DO [address] [place] [address] documented in this encounter [facility] 12-07-2023 Telephone encounter Note Pt notified. She verbalized understanding. Rickey Delgado LPN [facility] 12-07-2023 Miscellaneous Notes Pt notified. She verbalized understanding. Rickey Delgado LPN Can please let patient know that I received her shoulder xray results. It does show some arthritis in her shoulder. It also is suggestive of an arthritis specific to develop if there is an old unhealed injury to the rotator cuff. If she continues with shoulder pain, we should consider having her see ortho for further evaluation/treatment. Carolyn Ramirez APRN.TOOL HONING MACHINE SET UP OPERATOR documented in this encounter [facility] 12-07-2023 Telephone encounter Note Can please let patient know that I received her shoulder xray results. It does show some arthritis in her shoulder. It also is suggestive of an arthritis specific to develop if there is an old unhealed injury to the rotator cuff. If she continues with shoulder pain, we should consider having her see ortho for further evaluation/treatment. Carolyn Ramirez APRN.JAMI [facility] 12-05-2023 Telephone encounter Note Noted. Agree w/ plan. Passport complete. Carolyn Ramirez APRN.CNP [facility] 12-05-2023 Miscellaneous Notes Noted. Agree w/ plan. Passport complete. Carolyn Ramirez APRN.CNP Pt is going to go to the [place] ER. Decided not to wait for the CT at 4 at [place]. Patient called and notified of results and provider instructions. Patient states that she will go and do the CT Scan now. Advised patient that she needs to get CT scan done TODAY and if patient cannot get CT scan done TODAY then she needs to go to ER per provider instructions. Patient voiced understanding. FYI: Looks like patient scheduled for 12/06/2023. Kasey Perez RN Patient was transferred to [facility] from triage nurse. Patient was offered same day appointments for CT scan at either [place] or [place]. She needs to discuss with daughter in order to have transportation. She will call back to schedule once she has transportation. D. Dimer was elevated. Because this can be indicative of a blood clot, she needs to go to the ER for further evaluation to rule out a blood clot! Carolyn Ramriez APRN.TOOL HONING MACHINE SET UP OPERATOR documented in this encounter [facility] 12-05-2023 Telephone encounter Note Pt is going to go to the [place] ER. Decided not to wait for the CT at 4 at [place]. [facility] Work Phone: 12-05-2023 Telephone encounter Note Patient called and notified of results and provider instructions. Patient states that she will go and do the CT Scan now. Advised patient that she needs to get CT scan done TODAY and if patient cannot get CT scan done TODAY then she needs to go to ER per provider instructions. Patient voiced understanding. FYI: Looks like patient scheduled for 12/06/2023. Kasey Perez RN [facility] 12-05-2023 Telephone encounter Note Patient was transferred to [facility] from triage nurse. Patient was offered same day appointments for CT scan at either [place] or [place]. She needs to discuss with daughter in order to have transportation. She will call back to schedule once she has transportation. [facility] 12-05-2023 Telephone encounter Note D. Dimer was elevated. Because this can be indicative of a blood clot, she needs to go to the ER for further evaluation to rule out a blood clot! Carolyn Ramirez APRN.JAMI [facility] 12-04-2023 Telephone encounter Note Noted patient notified. Brionna Akhtar LPN [facility] 12-04-2023 Miscellaneous Notes Noted patient notified. Brionna Akhtar LPN Order is in. Carolyn Ramirez APRN.JAMI Patient stated that she strained a muscle in the arm which she said it played a part in hurting to breath. Patient stated that it hurt to breath. Patient stated currently she said it is not as tight when she breaths in. Patient did agree to getting blood work to check for blood clot. Please advise Brionna Akhtar LPN The CT is of her chest because she is having SOB and pain in her right upper chest with breathing. A CT without contrast will not show if there is a blood clot. My suspicion of a blood clot is low, however, based on her symptoms, I cannot rule it out. If she would like, I could do a blood test first that can sometimes rule out if there is a clot (but there are a lot of false positives, in which case the CT would be needed. Let me know how she would like to proceed. If she develops any worsening symptoms, then she should proceed to the ER to be evaluated. Patient states she believes this testing is being done to close to her last CT which was in March with contrast. She does not want to do this again for at least a year. Patient stating the contrast will push her from renal failure stage 2 to stage 3. Reiterated to patient that as provider stated below based on current renal function she is okay to proceed. Patient again stating she does not believe this and that the dye is to harsh for her kidneys. Advised patient to hold off on cancelling CT scheduled for 12/05 until message with her concerns was sent to provider. Patient stating she doesn't understanding why this testing needs to be completed when her concern is pain in her shoulder, not her abdomen. Please advise. Thank you. DARREN Wagner When evaluating for blood clots, the CT is done with contrast. Is there a concern with contrast? If it is renal function, her kidney function is adequate to proceed, she will just want to hydrate well after the CT to flush it out. Phoned patient left message to return call and ask to speak to a nurse. Phoned patient to ask why CT needs to be without contrast? Patient saw Carolyn Ramirez ORDER ANALYST yesterday and she ordered the test to check for PE. Pt is concerned about her CT scheduled for 12/05 she wants to make sure that it is NOT with IVCON. Please advise and call patient regarding test. Thank you documented in this encounter [facility] 12-04-2023 Telephone encounter Note Order is in. Carolyn Ramirez APRN.JAMI [facility] 12-04-2023 Telephone encounter Note Patient stated that she strained a muscle in the arm which she said it played a part in hurting to breath. Patient stated that it hurt to breath. Patient stated currently she said it is not as tight when she breaths in. Patient did agree to getting blood work to check for blood clot. Please advise Brionna Akhtar LPN [facility] 12-04-2023 Telephone encounter Note The CT is of her chest because she is having SOB and pain in her right upper chest with breathing. A CT without contrast will not show if there is a blood clot. My suspicion of a blood clot is low, however, based on her symptoms, I cannot rule it out. If she would like, I could do a blood test first that can sometimes rule out if there is a clot (but there are a lot of false positives, in which case the CT would be needed. Let me know how she would like to proceed. If she develops any worsening symptoms, then she should proceed to the ER to be evaluated. [facility] 12-04-2023 Telephone encounter Note Patient states she believes this testing is being done to close to her last CT which was in March with contrast. She does not want to do this again for at least a year. Patient stating the contrast will push her from renal failure stage 2 to stage 3. Reiterated to patient that as provider stated below based on current renal function she is okay to proceed. Patient again stating she does not believe this and that the dye is to harsh for her kidneys. Advised patient to hold off on cancelling CT scheduled for 12/05 until message with her concerns was sent to provider. Patient stating she doesn't understanding why this testing needs to be completed when her concern is pain in her shoulder, not her abdomen. Please advise. Thank you. DARREN Wagner [facility] 12-04-2023 Telephone encounter Note When evaluating for blood clots, the CT is done with contrast. Is there a concern with contrast? If it is renal function, her kidney function is adequate to proceed, she will just want to hydrate well after the CT to flush it out. [facility] 12-04-2023 Telephone encounter Note Phoned patient left message to return call and ask to speak to a nurse. Phoned patient to ask why CT needs to be without contrast? Patient saw Carolyn Ramirez ORDER ANALYST yesterday and she ordered the test to check for PE. [facility] 12-04-2023 Telephone encounter Note Pt is concerned about her CT scheduled for 12/05 she wants to make sure that it is NOT with IVCON. Please advise and call patient regarding test. Thank you [facility] 12-03-2023 History of Present illness Narrative Radiology Service Progress Note PATIENT NAME: Nadja Chaudhari DATE OF SERVICE: December 03, 2023 TIME: 4:46 PM PATIENT IDENTITY VERIFICATION COMPLETED USING TWO (2) IDENTIFIERS: Name and Date of confirmed by patient verbally. FALL SCREENING: Has the patient had 2 falls in the last year or 1 fall with injury or currently using an Ambulatory Assistive Device (Walker, Cane, Wheelchair, Crutches, etc.)? No PATIENT GENDER DATA: Female. status: : No status: NO. PATIENT RELEVANT IMPLANT DATA REVIEWED: Yes PATIENT PRESENTS WITH AN IMPLANTABLE OR ATTACHED ZOOLOGY TEACHER: No RADIOLOGY DEPARTMENT: General X-ray: Exam(s) Completed: Upper Extremity X-Ray(s): Shoulder, AP / TRUE AP / SUPRA OUTLET right PERIPHERAL IV DATA: Not applicable SIGNED BY: RT Valentino(R) December 03, 2023 4:46 PM documented in this encounter [facility] 12-03-2023 Instructions Carolyn Ramirez APRN.JAMI - 12/03/2023 3:[address] scan. Start the prednisone. (2 pills once daily X 5 days). Schedule w/ pulmonology. Schedule breathing tests. Get the xray of the shoulder. documented in this encounter [facility] 12-03-2023 History of Present illness Narrative This is a 73 year old female who presents today with: Patient presents with: Recheck: 1 week follow up HISTORY OF PRESENT ILLNESS: Nadja Chaudhari is a 73 year old female. Patient presents with: Recheck: 1 week follow up Pt presents today for recheck. Refers that her nasal surgery was cancelled. Refers that her oxygen level was between 92-94%. So they referred her back to primary care. Refers that she has a hx of COPD. Refers hx of asthma. She used to be on an inhaler. He used to follow-up w/ pulmonology with [facility] - Dr. Montaño. Refers last seen by them in 2019. Reports that she thought she was told that she didn't have to return. Refers that she has an albuterol inhaler, but doesn't think that she used for a year. Refers hx of sleep apnea. Followed w/ Dr. Montaño. Couldn't tolerated the CPAP. Quit smoking 2 years ago. May notice an occ wheeze once in awhile with exertion. Reports that she continues to have the right shoulder pain. Worse in the morning when she gets up. Refers pain to push on her shoulder. Pain to palpate the anterior chest wall. Refers that she does get pain when she is driving and has to turn the wheel. PAST MEDICAL HISTORY: PAST MEDICAL HISTORY Diagnosis Date Ulcerative colitis, unspecified PAST SURGICAL HISTORY Procedure Laterality Date LAMINECTOMY W/O FFD 1/2 VERT SEG LUMBAR Laminectomy, lumbar TONSILLECTOMY PRIMARY/SECONDARY <AGE 12 Tonsillectomy ALLERGIES Wellbutrin [Bupropion] MEDICATIONS Current Outpatient Medications Medication Sig cyclobenzaprine (FLEXERIL) 10 mg tablet Take 1 tablet by mouth three times a day as needed for pain. This can make you drowsy. furosemide (LASIX) 20 mg tablet Take 1 tablet by mouth once daily. losartan-hydroCHLOROthiazide (HYZAAR) 50-12.5 mg per tablet Take 1 tablet by mouth once daily. Spirometers and Accessories bushra 1 Each as directed. Copd flare up, dyspnea, wheezing [id number] (COSAMIN AVOCA, WITH BOSWELLIA,) 500-500-33.3-70 mg tab Take 1 tablet by mouth twice daily as needed. No current facility-administered medications for this visit. FAMILY HISTORY Problem Relation Age of Onset Colon Cancer Father Colon Cancer Paternal Grandfather Cancer Unknown Social History Tobacco Use Smoking status: Former Packs/day: 1 Types: Cigarettes Quit date: 12/2021 Years since quittin.9 Smokeless tobacco: Never Substance Use Topics Alcohol use: Yes Drug use: No EXAM: BP 110/78 Pulse 90 Resp 16 SpO2 94% PHYSICAL EXAM: General Appearance: Well appearing, alert, in no acute distress, well-hydrated, well nourished.. Skin: Skin color, texture, turgor normal, no suspicious rashes or lesions. Head: Normocephalic, no masses, lesions, tenderness or abnormalities. Eyes: Anicteric sclera. Pupils are equally round and reactive to light. Extraocular movements are intact. . Lungs: Lungs clear to auscultation. No wheezing, rhonchi, rales.. Heart: RRR without murmur, gallop, or rubs. No ectopy. Right shoulder and right anterior chest wall tender to palpate. Extremities: No deformities, edema, skin discoloration, clubbing or cyanosis. Good capillary refill. ROM to the right shoulder intact. Neurologic: Gait normal. ASSESSMENT/PLAN: 1. Chest wall pain - ICD9: 786.52, ICD10: R07.89 (primary diagnosis) Suspect musculoskeletal. However, no improvement with muscle relaxer. Oxygenation a little lower than baseline. Some shortness of breath. Pain with deep breathing. Will go ahead and get CT to r/o PE. 2. Chronic obstructive pulmonary disease, unspecified COPD type (HCC) - ICD9: 496, ICD10: J44.9 Will get updated spirometry. Hasn't followed up with pulm in over a year. - SPIROMETRY WITH DILATOR IF OBSTRUCTED - LUNG VOLUMES - LUNG DIFFUSION CAPACITY (DLCO) - CONSULT TO PULMONARY MEDICINE - PREDNISONE 20 MG TABLET 3. Acute pain of right shoulder - ICD9: 719.41, ICD10: M25.511 Hx of torn rotator cuff and arthritis. Will get updated imaging. - XR SHOULDER GENERAL 3V OR MORE AP/TRUE AP/OTHER RIGHT Prednisone burst, as planned. 4. SOB (shortness of breath) - ICD9: 786.05, ICD10: R06.02 As above. - CT CHEST W IVCON PE - IV CONTRAST (RADIOLOGY PROCEDURE) - CREATININE BLD Discussed treatment plan and patient voices understanding. Patient's questions answered appropriately. Medications and potential side effects were discussed and patient voices understanding. Return to the office as scheduled or as needed for worsening/no improvement. Carolyn Ramirez APRN.JMAI documented in this encounter [facility] 12-03-2023 Telephone encounter Note Pt called and is notified of providers message and instructions. Pt voices understanding. Pt scheduled with Carolyn Ramirez NP today at 320 pm. Eleanor Ratliff RN [facility] 12-03-2023 Miscellaneous Notes Pt called and is notified of providers message and instructions. Pt voices understanding. Pt scheduled with Carolyn Ramirez NP today at 320 pm. Eleanor Ratliff RN She will need return appt or ER. Will need additional lung assessment. Carolyn Ramirez APRN.JAMI Patient calls to let provider know that she was not able to have the surgical procedure done to her nose from [facility]. She reports the provider wasn't comfortable with doing the procedure because her pulse ox was running 92-94%. She reports that the flexeril hasn't helped the shoulder pain and she continues to have pain with taking a deep breath in. Offered appointment for follow up. Patient declines. She is asking if provider would place order for CXR since she continues to have the same symptoms. Please review and adviseNicki RN documented in this encounter [facility] 12-03-2023 Telephone encounter Note She will need return appt or ER. Will need additional lung assessment. Carolyn Ramirez APRN.JAMI [facility] 12-03-2023 Telephone encounter Note Patient calls to let provider know that she was not able to have the surgical procedure done to her nose from [facility]. She reports the provider wasn't comfortable with doing the procedure because her pulse ox was running 92-94%. She reports that the flexeril hasn't helped the shoulder pain and she continues to have pain with taking a deep breath in. Offered appointment for follow up. Patient declines. She is asking if provider would place order for CXR since she continues to have the same symptoms. Please review and advise, Nicki Farmer RN [facility] 11-28-2023 History of Present illness Narrative This is a 73 year old female who presents today with: Patient presents with: Acute Visit: R shoulder pain x2 days; worse when taking a deep breath HISTORY OF PRESENT ILLNESS: Nadja Chaudhari is a 73 year old female. Patient presents with: Acute Visit: R shoulder pain x2 days; worse when taking a deep breath Pt presents with R shoulder pain x 2 days Pt was trimming shrubs and feels that she slept on her shoulder wrong Pt says there is pain every time she takes a breath Pt says that pain is 10/10 when she breathes, 4/10 soreness otherwise Sharp pain when breathing, other times aching Pt has not tried any otc analgesics Refers that it had hurt prior to trimming shrubs -- felt like she slept on it wrong and then it seemed to be getting better until she trimmed shrubs. Pt is SOB when talking, she says that this happens often No lightheaded/dizziness Pt feels sweaty but thinks it is associated with heat Pt felt nausea when outside trimming bushes No c/o abdominal pain No pain radiating down arms/jaw No episodes of syncope No recent illnesses Pt used to have albuterol rescue inhaler, has not used in over a year Pt is scheduled to have ENT surgery on 12/03/23 PAST MEDICAL HISTORY: PAST MEDICAL HISTORY Diagnosis Date Ulcerative colitis, unspecified PAST SURGICAL HISTORY Procedure Laterality Date LAMINECTOMY W/O FFD 05/29 VERT SEG LUMBAR Laminectomy, lumbar TONSILLECTOMY PRIMARY/SECONDARY <AGE 12 Tonsillectomy ALLERGIES Wellbutrin [Bupropion] MEDICATIONS Current Outpatient Medications Medication Sig furosemide (LASIX) 20 mg tablet Take 1 tablet by mouth once daily. losartan-hydroCHLOROthiazide (HYZAAR) 50-12.5 mg per tablet Take 1 tablet by mouth once daily. Spirometers and Accessories bushra 1 Each as directed. Copd flare up, dyspnea, wheezing [id number] (COSAMIN AVOCA, WITH BOSWELLIA,) 500-500-33.3-70 mg tab Take 1 tablet by mouth twice daily as needed. No current facility-administered medications for this visit. FAMILY HISTORY Problem Relation Age of Onset Colon Cancer Father Colon Cancer Paternal Grandfather Cancer Unknown Social History Tobacco Use Smoking status: Former Packs/day: 1 Types: Cigarettes Quit date: 12/2021 Years since quittin.9 Smokeless tobacco: Never Substance Use Topics Alcohol use: Yes Drug use: No EXAM: BP 112/70 Pulse 91 Resp 16 SpO2 94% PHYSICAL EXAM: General Appearance: Well appearing, alert, in no acute distress, well-hydrated, well nourished.. Skin: Skin color, texture, turgor normal, no suspicious rashes or lesions. Head: Normocephalic, no masses, lesions, tenderness or abnormalities. Eyes: Anicteric sclera. Extraocular movements are intact. Lungs: Lungs clear to auscultation. No wheezing, rhonchi, rales. Heart: RRR without murmur, gallop, or rubs. No ectopy. Abdomen: Abdomen soft, non-tender. Bowel sounds normal. No masses, organomegaly. Extremities: No deformities, skin discoloration, clubbing or cyanosis. Good capillary refill. , Edema: +1 BLE. Musculoskeletal: No joint swelling, deformity. Positive findings: R-sided reproducible chest and back tenderness. Some tenderness w/ ROM of the right arm. Neurologic: Gait normal. ASSESSMENT/PLAN: 1. Costochondritis - ICD9: 733.6, ICD10: M94.0 - Cyclobenzaprine 10 mg TID prn for pain - use otc tylenol, topicals, heat/ice for pain relief - splint chest to promote deep breathing and coughing She is having surgery next week, so avoid asa, nsaids, steroids. - Pt instructed to notify us if new/worsening symptoms occur Discussed potential side effects of ordered medications. Patient voices understanding. Discussed treatment plan and patient voices understanding. Patient's questions answered appropriately. Medications and potential side effects were discussed and patient voices understanding. Return to the office as scheduled or as needed for worsening/no improvement. Carolyn Ramirez APRN.TOOL HONING MACHINE SET UP OPERATOR The patient indicates understanding of these issues and agrees with the plan. documented in this encounter [facility] 10-17-2023 Instructions Gray Quintana DO - 10/17/2023 11:03 AM EDT Neoprene ankle support Take Lasix 20 mg every other day BLOOD PRESSURE is well controlled. documented in this encounter [facility] 10-17-2023 History of Present illness Narrative CC: Nadja Chaudhari is a 73 year old female who presents to the office for follow up HPI: Seen in office last on 07/09/23 Recently she had a flare up x 2 episodes in the past 1 year and had to be treated with high dose steroids orally. This caused her appetite to be out of control and she gained 20 + lbs and she is very frustrated stating I haven't been this heavy ever in my life. I feel so tired and no energy. I need to lose weight. She is trying now to cut back on her sugars and starches and increase her protein in her diet. Bowel habits are back to normal. She is trying to eat better. Admits that she isn't exercising much due to lack of motivation. No SI or HI. She denies depressed mood HTN, well controlled, taking medication as prescribed. She denies CP or dyspnea or dizziness/Lh Currently HTN, well controlled, taking medication as prescribed. She denies CP or dyspnea or dizziness/Lh Obesity, admits that she hasn't been taking the metformin medication prescribed at last OFFICE VISIT- she is worried about potential SE but understands that she has hyperglycemia and insulin resistance and would benefit from this. She also is trying not to eat late at night and is trying to cut back on carbohydrates and eat more proteins in her diet. She is walking on her treadmill intermittently for 20-30 min in the evening. She states her bowels have been stable. Leg edema, intermittent, left >right, left ankle with achilles tendinitis that has been chronic and she is trying to avoid getting surgery on this PAST MEDICAL HISTORY Diagnosis Date Ulcerative colitis, unspecified PAST SURGICAL HISTORY Procedure Laterality Date LAMINECTOMY W/O FFD 05/29 VERT SEG LUMBAR Laminectomy, lumbar TONSILLECTOMY PRIMARY/SECONDARY <AGE 12 Tonsillectomy Social History: Social History Tobacco Use Smoking status: Former Packs/day: 1 Types: Cigarettes Quit date: 12/2021 Years since quittin.8 Smokeless tobacco: Never Substance Use Topics Alcohol use: Yes Drug use: No FAMILY HISTORY Problem Relation Age of Onset Colon Cancer Father Colon Cancer Paternal Grandfather Cancer Unknown Current Outpatient prescriptions: HYDROcodone-acetaminophen (NORCO) 5-325 mg per tablet Take 1 tablet by mouth every 6 hours as needed for pain for up to 5 days. furosemide (LASIX) 20 mg tablet Take 1 tablet by mouth once daily. losartan-hydroCHLOROthiazide (HYZAAR) 50-12.5 mg per tablet Take 1 tablet by mouth once daily. Spirometers and Accessories bushra 1 Each as directed. Copd flare up, dyspnea, wheezing [id number] (COSAMIN AVOCA, WITH BOSWELLIA,) 500-500-33.3-70 mg tab Take 1 tablet by mouth twice daily as needed. Allergies: ALLERGIES Allergen Reactions Wellbutrin [Bupropi* GI Upset caused some gi upset (abdominal pain and gas) dry mouth, and sore throat. ROS: See HPI PE: 10/17/23 1033 BP: 120/70 Pulse: 80 Resp: 20 Temp: 36.1 C (97 F) TempSrc: Right Tympanic Weight: 108.9 kg (240 lb) Gen: A&O, NAD, non-toxic appearing, Pleasant, cooperative HEENT: NT/AC, PERRLA, EOMs intact b/l, nares clear and patent b/l, pharynx without erythema, exudate or lesions. Uvula midline. MMM Neck: supple, No cervical LAD, no thyromegaly, no carotid bruits CV: RRR, normal S1 and S2, no murmurs, no gallops, no rubs, Pulses 2+ and symmetric in UE and LE b/l Lungs: normal respiratory effort, CTA b/l, no wheezing or rhonchi or rales Abd: soft, central obese, NT, ND, +BS, no hepatosplenomegaly MS: reduced ROM hips and knees and ankles Neuro: CN II-XII intact b/l, sensation intact. Skin: warm, dry, intact, No rashes or lesions on exposed skin. Trace ankle edema b/l non pitting ASSESSMENT/PLAN: 1. Hypertension, essential - ICD9: 401.9, ICD10: I10 (primary diagnosis) - Controlled - Continue current medications - Recommend home blood pressure monitoring, to bring results to next visit - Encouraged sodium restriction, DASH or Mediterranean diet - Recommend regular aerobic exercise - Discussed need for and benefit of weight loss. BMI 39.99 kg/(m^2) - FUROSEMIDE 20 MG TABLET 2. Left Achilles tendinitis - ICD9: 726.71, ICD10: M76.62 F/u with Shoe Treer Need to control the edema 3. Pedal edema - ICD9: 782.3, ICD10: R60.0 - rx prn - FUROSEMIDE 20 MG TABLET 4. CKD (chronic kidney disease) stage 2, GFR 60-89 ml/min - ICD9: 585.2, ICD10: N18.2 - eGFR: 61 Stable - Counseled on avoiding NSAIDs, adequate hydration - Counseled on low sodium diet - FUROSEMIDE 20 MG TABLET 5. Obesity, Class II, BMI 35-39.9 - ICD9: 278.00, ICD10: E66.9 - Lengthy discussion in office today regarding diet and exercise. Discussed use of small plate to eat meals from, drink 1 glass of water 10-15 minutes prior to eating meal, drink 8 glasses of water daily, eat fresh fruit and vegetable during meal first then lean protein such as grilled/baked chicken breast or fish, limit carbohydrate intake (less pasta, breads, rice and snack foods) as well as limiting sugars (desserts etc). Important to count / track your calories and exercise as well. - she is going to start the metformin rx as d/w her today again- with supper. 6. Fatigue, unspecified type - ICD9: 780.79, ICD10: R53.83 See above 7. Hyperglycemia - ICD9: 790.29, ICD10: R73.9 See above 8. Wheezing - ICD9: 786.07, ICD10: R06.2 - FUROSEMIDE 20 MG TABLET 9. SOB (shortness of breath) - ICD9: 786.05, ICD10: R06.02 - FUROSEMIDE 20 MG TABLET Gray Quintana DO To ER if develops chest pain, shortness of breath, or severe worsening of symptoms. Discussed risks, benefits, alternatives, and potential side effects of medications. Patient expressed understanding and agreed with the plan. Gray Quintana DO [address] [place] [address] documented in this encounter [facility] 10-12-2023 History of Present illness Narrative Chief Complaint Patient presents with: pain trish feet: Difficulty to walk, achilles tendonitis in left foot, requesting something for pain, had Cortisone inj in past. HPI Nadja Chaudhari is a 73 year old female who presents here today for Above Complaints.. Has hx left achilles tendonitis and has had a cortisone injection for this in the past. Has really flared up over the past few days. Knows that she does need to follow up with orthopedics and plans to schedule with them, but has granddaughter's graduation republican this weekend and really needs to be able to walk and function over the weekend. Requesting short term rx for a pain medication. Is having difficulty even walking, is walking like an old lady. Has tried Tylenol which has not been effective at all. Because of her colitis cannot take any ibuprofen or other NSAIDS. Past medical history, appointments, medications, allergies reviewed. Previous Medical History PAST MEDICAL HISTORY Diagnosis Date Ulcerative colitis, unspecified Previous Surgical History PAST SURGICAL HISTORY Procedure Laterality Date LAMINECTOMY W/O FFD 05/29 VERT SEG LUMBAR Laminectomy, lumbar TONSILLECTOMY PRIMARY/SECONDARY <AGE 12 Tonsillectomy Family History FAMILY HISTORY Problem Relation Age of Onset Colon Cancer Father Colon Cancer Paternal Grandfather Cancer Unknown Patient Allergies ALLERGIES Allergen Reactions Wellbutrin [Bupropi* GI Upset caused some gi upset (abdominal pain and gas) dry mouth, and sore throat. Current Medications Current Outpatient Medications on File Prior to Visit Medication Sig losartan-hydroCHLOROthiazide (HYZAAR) 50-12.5 mg per tablet Take 1 tablet by mouth once daily. Spirometers and Accessories bushra 1 Each as directed. Copd flare up, dyspnea, wheezing [id number] (COSAMIN AVOCA, WITH BOSWELLIA,) 500-500-33.3-70 mg tab Take 1 tablet by mouth twice daily as needed. furosemide (LASIX) 20 mg tablet Take 1 tablet by mouth once daily. No current facility-administered medications on file prior to visit. Social History Social History Tobacco Use Smoking status: Former Packs/day: 1 Types: Cigarettes Quit date: 12/2021 Years since quittin.7 Smokeless tobacco: Never Substance Use Topics Alcohol use: Yes Drug use: No Review of Symptoms REVIEW OF SYSTEMS See HPI, otherwise negative EXAM: BP 122/86 (BP Site: Left Arm, BP Position: Sitting, BP Cuff Size: Regular Adult) Pulse 86 Resp 20 Wt 109.9 kg (242 lb 3.2 oz) SpO2 96% BMI 40.35 kg/m General Appearance: Well appearing, alert, in mild distress, well-hydrated, well nourished.. Heart: RRR without murmur, gallop, or rubs. No ectopy. Musculoskeletal: tenderness to posterior left heel, altered gait. Psychiatric: pleasant, cooperative. Health Maintenance List Meningococcal B Vaccine: Consider Based On Risk(1 of 4 - Increased Risk) Never done Spirometry Never done BP Controlled (<130/80) Never done Hepatitis A Vaccine(1 of 2 - Risk 2-dose series) Never done Alpha-1 Antitrypsin Deficiency Screening Never done Hepatitis B Vaccine(1 of 3 - Risk 3-dose series) Never done Colorectal Cancer Screening due on 04/06/2012 Mammogram Screening due on 05/11/2023 Advance Directive Discussion Never done Behavioral Health Screening Never done MMR Vaccine(1 of 2 - Risk 2-dose series) due on 12/28/2023 Shingrix Vaccine(1 of 2) due on 12/28/2023 Covid-19 Vaccine(1 - 2022-24 season) due on 07/09/2024 RSV Vaccine(1 - 1-dose 60+ series) due on 08/23/2024 Serum Creatinine due on 09/05/2024 Annual PCP Team Chronic Disease Visit due on 09/09/2024 Diabetes Screening due on 09/05/2026 Lipid Screening due on 07/03/2027 DTaP,Tdap,Td Vaccine(2 - Td or Tdap) due on 01/24/2028 Bone Density Screening Completed Influenza Vaccine Completed Pneumococcal Vaccine: 65+ Completed Hepatitis C Screening Discontinued Data reviewed Previous records, office notes, [place] report PDMP website checked and validated. All prescriptions have been APPROPRIATELY filled. No suspicious activity was identified. 10/12/2023 by Amelia Trotter CNP. ASSESSMENT/PLAN: 1. Left Achilles tendinitis - ICD9: 726.71, ICD10: M76.62 [place] given to get her through the weekend of her granddaughter's graduation. She will schedule with her foot dr in [place] for further follow up. - HYDROCODONE 5 MG-ACETAMINOPHEN 325 MG TABLET Amelia Trotter APRN.CNP documented in this encounter [facility] 09-12-2023 Miscellaneous Notes Patient notified of results. Patient verbalizes understanding. Kasey Perez RN Left message to return call Yoselin Hull MA Please call patient and let her know that ECHO results show no acute concerns. Thank you, Christina Anthony APRN.TOOL HONING MACHINE SET UP OPERATOR documented in this encounter [facility] 09-10-2023 Instructions Amelia Trotter APRN.CNP - 09/10/2023 12:44 PM EDT Go ahead and stop the Lasix (furosemide). But you need to let me know if your ankles swell up again. Cut back on salty foods. Make sure you're getting enough exercise. Drink more during the day and less in the evening, toward nighttime. documented in this encounter [facility] 09-10-2023 History of Present illness Narrative Chief Complaint Patient presents with: Hand Pain: Left swollen, stiffness HPI Nadja Chaudhari is a 73 year old female who presents here today for Above Complaints. States when she woke up this morning her hand just under her fingers was swollen and painful. She had to take off her ring. Since then her sx have resolved. She did have a double quarterpounder with cheese and pickle yesterday from [employer]. She has been dealing with significant pedal edema for several weeks and has finally resolved as of appt with myself 4 days ago. Insistent upon stopping the Lasix so it does not hurt her kidneys and she does not want to become dependent on the Lasix. Has been researching and has plans to naturally remedy her edema. States she knows she should not eat junk food and salty foods. States she would like to start eating more fresh foods, fruits and vegetables, taking natural things for her edema that is in her legs. Plans to start exercising as well, but not sure what type of exercise. Past medical history, appointments, medications, allergies reviewed. Previous Medical History PAST MEDICAL HISTORY Diagnosis Date Ulcerative colitis, unspecified Previous Surgical History PAST SURGICAL HISTORY Procedure Laterality Date LAMINECTOMY W/O FFD / VERT SEG LUMBAR Laminectomy, lumbar TONSILLECTOMY PRIMARY/SECONDARY <AGE 12 Tonsillectomy Family History FAMILY HISTORY Problem Relation Age of Onset Colon Cancer Father Colon Cancer Paternal Grandfather Cancer Unknown Patient Allergies ALLERGIES Allergen Reactions Wellbutrin [Bupropi* GI Upset caused some gi upset (abdominal pain and gas) dry mouth, and sore throat. Current Medications Current Outpatient Medications on File Prior to Visit Medication Sig furosemide (LASIX) 20 mg tablet Take 1 tablet by mouth once daily. losartan-hydroCHLOROthiazide (HYZAAR) 50-12.5 mg per tablet Take 1 tablet by mouth once daily. Spirometers and Accessories bushra 1 Each as directed. Copd flare up, dyspnea, wheezing [id number] (COSAMIN AVOCA, WITH BOSWELLIA,) 500-500-33.3-70 mg tab Take 1 tablet by mouth twice daily as needed. No current facility-administered medications on file prior to visit. Social History Social History Tobacco Use Smoking status: Former Packs/day: 1 Types: Cigarettes Quit date: 12/2021 Years since quittin.7 Smokeless tobacco: Never Substance Use Topics Alcohol use: Yes Drug use: No Review of Symptoms REVIEW OF SYSTEMS See HPI, otherwise negative EXAM: BP 118/82 (BP Site: Left Arm, BP Position: Sitting, BP Cuff Size: Regular Adult) Pulse 88 Resp 16 Wt 110 kg (242 lb 9.6 oz) SpO2 95% BMI 40.42 kg/m General Appearance: Well appearing, alert, in no acute distress, well-hydrated, well nourished.. Lungs: mild expiratory wheeze to BLL. Heart: RRR without murmur, gallop, or rubs. No ectopy. Extremities: trace bilateral ankle and pedal edema, left>right. Psychiatric: pleasant, cooperative, anxious. Health Maintenance List Meningococcal B Vaccine: Consider Based On Risk(1 of 4 - Increased Risk) Never done Spirometry Never done Hepatitis A Vaccine(1 of 2 - Risk 2-dose series) Never done Alpha-1 Antitrypsin Deficiency Screening Never done Hepatitis B Vaccine(1 of 3 - Risk 3-dose series) Never done Colorectal Cancer Screening due on 04/06/2012 Mammogram Screening due on 05/11/2023 Advance Directive Discussion Never done Behavioral Health Screening Never done MMR Vaccine(1 of 2 - Risk 2-dose series) due on 12/28/2023 Shingrix Vaccine(1 of 2) due on 12/28/2023 Covid-19 Vaccine(1 - season) due on 07/09/2024 RSV Vaccine(1 - 1-dose 60+ series) due on 08/23/2024 Influenza Vaccine(Season Ended) due on 01/27/2024 Annual PCP Team Chronic Disease Visit due on 09/05/2024 Serum Creatinine due on 09/05/2024 BP Controlled (<130/80) due on 09/05/2024 Diabetes Screening due on 09/05/2026 Lipid Screening due on 07/03/2027 DTaP,Tdap,Td Vaccine(2 - Td or Tdap) due on 01/24/2028 Bone Density Screening Completed Pneumococcal Vaccine: 65+ Completed Hepatitis C Screening Discontinued Data reviewed Previous records, office notes ASSESSMENT/PLAN: 1. Pedal edema - ICD9: 782.3, ICD10: R60.0 (primary diagnosis) Patient has appointment with PCP Dr. Quintana on 09/16. Requested that she continue Lasix until that point when she can discuss stopping the medication with her. Patient is adamant on stopping the medication against my advise, adverse effects discussed with patient. She plans for natural treatment for her edema and HTN. As well as above plans in HPI. 2. Hypertension, essential - ICD9: 401.9, ICD10: I10 Patient has appointment with PCP Dr. Quintana on 09/16. Requested that she continue Lasix until that point when she can discuss stopping the medication with her. Patient is adamant on stopping the medication against my advise, adverse effects discussed with patient. She plans for natural treatment for her edema and HTN. As well as above plans in HPI. 3. CKD (chronic kidney disease) stage 2, GFR 60-89 ml/min - ICD9: 585.2, ICD10: N18.2 Patient has appointment with PCP Dr. Quintana on 09/16. Requested that she continue Lasix until that point when she can discuss stopping the medication with her. Patient is adamant on stopping the medication against my advise, adverse effects discussed with patient. She plans for natural treatment for her edema and HTN. As well as above plans in HPI. 4. SOB (shortness of breath) - ICD9: 786.05, ICD10: R06.02 Patient has appointment with PCP Dr. Quintana on 09/16. Requested that she continue Lasix until that point when she can discuss stopping the medication with her. Patient is adamant on stopping the medication against my advise, adverse effects discussed with patient. She plans for natural treatment for her edema and HTN. As well as above plans in HPI. 6. Situational anxiety - ICD9: 300.09, ICD10: F41.8 Patient has appointment with PCP Dr. Quintana on 09/16. Requested that she continue Lasix until that point when she can discuss stopping the medication with her. Patient is adamant on stopping the medication against my advise, adverse effects discussed with patient. She plans for natural treatment for her edema and HTN. As well as above plans in HPI. Amelia Trotter APRN.TOOL HONING MACHINE SET UP OPERATOR documented in this encounter [facility] 09-08-2023 Miscellaneous Notes Reason for call: Left fingers swollen and moderately painful. Started an hour ago. Outcome: Advised to be seen within 72 hours. Caller conferenced to Alexandra in appointment center, to be scheduled in office of PCP. Caller also given alternate options for care including [facility], emergency department for worsening symptoms. Reason for Disposition [1] MODERATE pain (e.g., interferes with normal activities) AND [2] present > 3 days Finger pain is main symptom Answer Assessment - Initial Assessment Questions 1. ONSET: Started today when she got up at 730 am(one hours ago). Left hand/fingers swelling and pain. Not noticeably swollen compared to right, but she had trouble getting her ring off. 2. LOCATION and RADIATION: Mostly painful in knuckles and fingers. 3. SEVERITY: Moderate. Has not taken anything OTC for pain. Knuckles tight and sore. 5. WORK OR EXERCISE:Denies. 6. CAUSE: Unknown. 7. AGGRAVATING FACTORS: Squeezing hand causes increased pain. 8. OTHER SYMPTOMS: Denies fever, neck pain, numbness. Fingernails normal color and appearance. Protocols used: Hand and Wrist [id number], Finger [id number] documented in this encounter [facility] 09-07-2023 Miscellaneous Notes Spoke with pt and information listed below given. Pt verbalizes understanding. Mai Campbell LPN Left message to return call Yoselin Hull MA Please let her know that her potassium and kidney labs all look good. Ok to continue with her current Lasix dose. Amelia Trotter APRN.JAMI documented in this encounter [facility] 09-06-2023 History of Present illness Narrative Chief Complaint Patient presents with: Edema: Trish legs HPI Nadja Chaudhari is a 73 year old female who presents here today for Above Complaints.. Per appointment with JAMI Vasquez on 08/24/2023: BNP normal at the beginning of this month (level of 64) Potassium normal yesterday. CMP this month showed normal kidney function. Pt was switched from lasix to bumex diuretic d/t poor control with lasix burst, refer to TE on 08/21. Today... Pt reports swelling remains, no worse but no better. Refusing to take bumex due to reading side effects online and concerns with her kidney function. Pt also very concerned about the cause of this new onset edema x 2-3 months. Does not feel SOB but daughter and family report pt to be wheezing and out of breath with little exertion recently. Hx of mild asthma and COPD. Also has seasonal allergies and not taking any OTC regimen currently -- has zyrtec but not taking at the moment. Pt admits to poor diet and exercise. She is trying to cut back on fast food, decreasing sodium in diet, and trying to be more active by walking on treadmill x 20 minutes when able. Admits that she craves Hendrix's frequently and will eat this a few x per week. Pt has been using 1 tablespoon of cinnamon in tea/coffee daily and read that this can cause leg swelling too. She stopped this yesterday. ASSESSMENT/PLAN: 1. Pedal edema - ICD9: 782.3, ICD10: R60.0 (primary diagnosis) EKG in office -- NSR rate of 65. CXR today and schedule ECHO to rule out cardiac cause/involvement. Discontinued Bumex d/t pt refusal to take. Start lasix 20 mg daily. Stop using cinnamon daily. Decrease sodium in diet and greatly reduce fast food intake. Elevated legs as much as possible. Continue with appointment as scheduled in 2 weeks to reassess. CMP scheduled to have drawn prior to this appointment to recheck potassium and kidney function. - ECHO - PERFLUTREN LIPID MICROSPHERES 1.1 MG/ML INJECTION IN NS 10 ML - SODIUM CHLORIDE 0.9 % (FLUSH) INJECTION SYRINGE - ECG COMPLETE - FUROSEMIDE 20 MG TABLET 2. Hypertension, essential - ICD9: 401.9, ICD10: I10 Borderline low for pt, given age. With added lasix to regimen, we decreased hyzaar regimen to once daily (vs BID). She was on this regimen prior. RTO in 2 weeks as scheduled for BP check. - Recommend home blood pressure monitoring, to bring results to next visit - Encouraged sodium restriction, DASH or Mediterranean diet - Recommend regular aerobic exercise - Follow up in 2 weeks for hypertension visit - LOSARTAN 50 MG-HYDROCHLOROTHIAZIDE 12.5 MG TABLET - FUROSEMIDE 20 MG TABLET 3. CKD (chronic kidney disease) stage 2, GFR 60-89 ml/min - ICD9: 585.2, ICD10: N18.2 20 mg lasix daily. Recheck CMP in 2 weeks for next appointment. - FUROSEMIDE 20 MG TABLET - COMP METABOLIC PANEL 4. Wheezing - ICD9: 786.07, ICD10: R06.2 See above. Start Medrol dose rebecca and complete CXR. - ECHO - PERFLUTREN LIPID MICROSPHERES 1.1 MG/ML INJECTION IN NS 10 ML - SODIUM CHLORIDE 0.9 % (FLUSH) INJECTION SYRINGE - ECG COMPLETE - XR CHEST 2V FRONTAL/LAT - METHYLPREDNISOLONE 4 MG TABLETS IN A DOSE PACK - FUROSEMIDE 20 MG TABLET 5. SOB (shortness of breath) - ICD9: 786.05, ICD10: R06.02 See above. - ECHO - PERFLUTREN LIPID MICROSPHERES 1.1 MG/ML INJECTION IN NS 10 ML - SODIUM CHLORIDE 0.9 % (FLUSH) INJECTION SYRINGE - ECG COMPLETE - XR CHEST 2V FRONTAL/LAT - FUROSEMIDE 20 MG TABLET RTO in 2 weeks, sooner if needed. Prescription instructions reviewed with patient as applicable. Potential red flag symptoms discussed with the patient. Reviewed appropriate action plan to take if red flag symptoms occur. Patient agreeable to treatment plan. Christina Vega APRN.TOOL HONING MACHINE SET UP OPERATOR Per TE: Pt calling in as she has some continued bilateral ankle and foot swelling. See phone notes 08/21 and 08/22. Pt states she does not want to take the Bumex. She did some research and states she is afraid to take something that strong. She read where it can cause kidney damage and she already has stage 2 kidney disease. In talking with pt, she sounds slightly SOB and slightly wheezy on the phone. When questioned pt about it, she states she isn't sure what is going on-whether it is her heart or what. Pt had made an appt with Amelia Trotter for 09/05 for the swelling. Appt given today with Christina Anthony to have her swelling and lungs evaluated. Was seen by myself on 08/06: ASSESSMENT/PLAN: 1. Pedal edema - ICD9: 782.3, ICD10: R60.0 (primary diagnosis) Continue to monitor renal function due to furosemide burst. Increasing losartan/hydrochlorothiazide today. Has been taking this once daily in the mornings and then only losartan without the hctz in the evenings. She will now take the losartan/hctz twice daily. Wear compression stockings. - RENAL FUNCTION PANEL - LOSARTAN 50 MG-HYDROCHLOROTHIAZIDE 12.5 MG TABLET 2. CKD (chronic kidney disease) stage 2, GFR 60-89 ml/min - ICD9: 585.2, ICD10: N18.2 Continue to monitor renal function due to furosemide burst. Increasing losartan/hydrochlorothiazide today. Has been taking this once daily in the mornings and then only losartan without the hctz in the evenings. She will now take the losartan/hctz twice daily. Wear compression stockings. - RENAL FUNCTION PANEL - LOSARTAN 50 MG-HYDROCHLOROTHIAZIDE 12.5 MG TABLET 3. Hypertension, essential - ICD9: 401.9, ICD10: I10 Continue to monitor renal function due to furosemide burst. Increasing losartan/hydrochlorothiazide today. Has been taking this once daily in the mornings and then only losartan without the hctz in the evenings. She will now take the losartan/hctz twice daily. Wear compression stockings. - RENAL FUNCTION PANEL - LOSARTAN 50 MG-HYDROCHLOROTHIAZIDE 12.5 MG TABLET Currently: Significant improvement in BLE swelling. No longer painful. Just a little swollen. Patient feels this is an acceptable amount with the trace swelling. Denies SOB, CP. Requesting to stop her daily Lasix dose. Did not get her lab work completed for her potassium recheck yet that she was to get. Past medical history, appointments, medications, allergies reviewed. Previous Medical History PAST MEDICAL HISTORY Diagnosis Date Ulcerative colitis, unspecified Previous Surgical History PAST SURGICAL HISTORY Procedure Laterality Date LAMINECTOMY W/O FFD 05/29 VERT SEG LUMBAR Laminectomy, lumbar TONSILLECTOMY PRIMARY/SECONDARY <AGE 12 Tonsillectomy Family History FAMILY HISTORY Problem Relation Age of Onset Colon Cancer Father Colon Cancer Paternal Grandfather Cancer Unknown Patient Allergies ALLERGIES Allergen Reactions Wellbutrin [Bupropi* GI Upset caused some gi upset (abdominal pain and gas) dry mouth, and sore throat. Current Medications Current Outpatient Medications on File Prior to Visit Medication Sig losartan-hydroCHLOROthiazide (HYZAAR) 50-12.5 mg per tablet Take 1 tablet by mouth once daily. furosemide (LASIX) 20 mg tablet Take 1 tablet by mouth once daily. Spirometers and Accessories bushra 1 Each as directed. Copd flare up, dyspnea, wheezing [id number] (COSAMIN AVOCA, WITH BOSWELLIA,) 500-500-33.3-70 mg tab Take 1 tablet by mouth twice daily as needed. albuterol HFA (VENTOLIN HFA) 90 mcg/actuation inhaler Inhale 2 Puffs as instructed every 4 hours as needed for wheezing/shortness of breath. (Patient not taking: Reported on 08/24/2023) No current facility-administered medications on file prior to visit. Social History Social History Tobacco Use Smoking status: Former Packs/day: 1 Types: Cigarettes Quit date: 12/2021 Years since quittin.6 Smokeless tobacco: Never Substance Use Topics Alcohol use: Yes Drug use: No Review of Symptoms REVIEW OF SYSTEMS See HPI, otherwise negative EXAM: BP 108/72 (BP Site: Left Arm, BP Position: Sitting, BP Cuff Size: Regular Adult) Pulse 82 Resp 20 Wt 109.1 kg (240 lb 9.6 oz) SpO2 95% BMI 40.09 kg/m General Appearance: Well appearing, alert, in no acute distress, well-hydrated, well nourished.. Lungs: mild expiratory wheeze to BLL. Heart: RRR without murmur, gallop, or rubs. No ectopy. Extremities: trace bilateral ankle and pedal edema, left>right. Psychiatric: pleasant, cooperative. Health Maintenance List Meningococcal B Vaccine: Consider Based On Risk(1 of 4 - Increased Risk) Never done Spirometry Never done Hepatitis A Vaccine(1 of 2 - Risk 2-dose series) Never done Alpha-1 Antitrypsin Deficiency Screening Never done Hepatitis B Vaccine(1 of 3 - Risk 3-dose series) Never done Colorectal Cancer Screening due on 04/06/2012 Mammogram Screening due on 05/11/2023 Advance Directive Discussion Never done Behavioral Health Screening Never done MMR Vaccine(1 of 2 - Risk 2-dose series) due on 12/28/2023 Shingrix Vaccine(1 of 2) due on 12/28/2023 Covid-19 Vaccine( - season) due on 07/09/2024 RSV Vaccine(1 - 1-dose 60+ series) due on 08/23/2024 Influenza Vaccine(Season Ended) due on 01/27/2024 Serum Creatinine due on 08/06/2024 Annual PCP Team Chronic Disease Visit due on 08/23/2024 BP Controlled (<130/80) due on 08/23/2024 Diabetes Screening due on 07/30/2026 Lipid Screening due on 07/03/2027 DTaP,Tdap,Td Vaccine(2 - Td or Tdap) due on 01/24/2028 Bone Density Screening Completed Pneumococcal Vaccine: 65+ Completed Hepatitis C Screening Discontinued Data reviewed Previous records, office notes ASSESSMENT/PLAN: 1. Pedal edema - ICD9: 782.3, ICD10: R60.0 (primary diagnosis) Continue current daily Lasix 20mg Continue elevation and compression stockings as able. Discussed red flag s/s Is scheduled next week for her echocardiogram, she is to keep this appointment. She has appt scheduled for September with PCP Dr. Quintana To have CMP drawn today 2. Hypertension, essential - ICD9: 401.9, ICD10: I10 Continue current daily Lasix 20mg Continue elevation and compression stockings as able. Discussed red flag s/s Is scheduled next week for her echocardiogram, she is to keep this appointment. She has appt scheduled for September with PCP Dr. Quintana To have CMP drawn today 3. CKD (chronic kidney disease) stage 2, GFR 60-89 ml/min - ICD9: 585.2, ICD10: N18.2 Continue current daily Lasix 20mg Continue elevation and compression stockings as able. Discussed red flag s/s Is scheduled next week for her echocardiogram, she is to keep this appointment. She has appt scheduled for September with PCP Dr. Quintana To have CMP drawn today 4. Wheezing - ICD9: 786.07, ICD10: R06.2 Continue current daily Lasix 20mg Continue elevation and compression stockings as able. Discussed red flag s/s Is scheduled next week for her echocardiogram, she is to keep this appointment. She has appt scheduled for September with PCP Dr. Quintana To have CMP drawn today 5. SOB (shortness of breath) - ICD9: 786.05, ICD10: R06.02 Continue current daily Lasix 20mg Continue elevation and compression stockings as able. Discussed red flag s/s Is scheduled next week for her echocardiogram, she is to keep this appointment. She has appt scheduled for September with PCP Dr. Quintana To have CMP drawn today Amelia Trotter APRN.JAMI documented in this encounter [facility] 08-28-2023 Miscellaneous Notes Detailed message left on pt's answering machine. Gianna Choudhury LPN Please let Nadja know that her chest xray looks normal. Amelia Trotter APRN.CNP documented in this encounter [facility] 08-24-2023 History of Present illness Narrative Radiology Service Progress Note PATIENT NAME: Nadja Chaudhari DATE OF SERVICE: August 24, 2023 TIME: 11:54 AM PATIENT IDENTITY VERIFICATION COMPLETED USING TWO (2) IDENTIFIERS: Name and Date of confirmed by patient verbally. FALL SCREENING: Has the patient had 2 falls in the last year or 1 fall with injury or currently using an Ambulatory Assistive Device (Walker, Cane, Wheelchair, Crutches, etc.)? No PATIENT GENDER DATA: Female. status: : No status: NO. PATIENT RELEVANT IMPLANT DATA REVIEWED: Not Applicable PATIENT PRESENTS WITH AN IMPLANTABLE OR ATTACHED ZOOLOGY TEACHER: No RADIOLOGY DEPARTMENT: General X-ray: Exam(s) Completed: Chest X-Ray PERIPHERAL IV DATA: Not applicable SIGNED BY: RT Francisco J(R) August 24, 2023 11:54 AM documented in this encounter [facility] 08-08-2023 Miscellaneous Notes Pt called and is notified of providers results and instructions. Pt voices understanding. Eleanor Ratliff RN Left message to return call. Please let her know her kidney function is stable. Ok to continue with the hctz as planned. Please make sure she is drinking a minimum of 60-80oz of water daily. Amelia Trotter APRN.CNP documented in this encounter [facility] 08-07-2023 Miscellaneous Notes The following approved medication requests have been transmitted electronically. Requested Prescriptions Signed Prescriptions Disp Refills losartan-hydroCHLOROthiazide (HYZAAR) 50-12.5 mg per tablet 60 tablet 2 Sig: Take 1 tablet by mouth two times a day. Authorizing Provider: AMELIA TROTTER APRN.CNP Patient has been identified by name and date of : Patient phones for refill(s): Requested Prescriptions Pending Prescriptions Disp Refills losartan-hydroCHLOROthiazide (HYZAAR) 50-12.5 mg per tablet [Pharmacy Med Name: LOSARTAN-HCTZ 50-12.5 MG TAB] 60 tablet 2 Sig: TAKE 1 TABLET BY MOUTH TWO TIMES A DAY. 1 DAILY IN THE MORNING Date of last office visit in primary care: 08/07/2023 Date of next office visit in primary care: 10/17/2023 Please advise. Thank you. Cassie Nino LPN. documented in this encounter [facility] 08-07-2023 Instructions Amelia Trotter APRN.CNP - 08/07/2023 11:38 AM EDT Have your lab drawn again to look at your kidney function. Start taking the losartan/hydrochlorothiazide 50/12.5 twice daily. Try taking your Vitmain D3, 5000iu and 10,000iu every other day. documented in this encounter [facility] 08-07-2023 History of Present illness Narrative Chief Complaint Patient presents with: Follow Up: Edema, lower back pain HPI Nadja Chaudhari is a 73 year old female who presents here today for Above Complaints. Per appointment with myself on 07/31/2023: Has had swelling to both of her ankles, lower legs, feet. Is doing her best to elevate her feet. Left worse than right. Present for about 3 weeks. Has happened before but typically resolves on it's own, doesn't last this long. Seems to be urinating more. Previous family doctor changed her losartan/hctz to 50mg in the morning, just the losartan 50mg without the hctz in the evenings. Tries to get on her treadmill at least 3-4 times weekly, for 20 minutes. Hands are swollen a bit, rings are tight. Has sleep apnea but doesn't want to use a CPAP. Discussed with dentist that will give her an oral device to use at nighttime. Has compression stockings at home. Some chronic SOB, but nothing different from usual. Denies CP. ASSESSMENT/PLAN: 1. Pedal edema - ICD9: 782.3, ICD10: R60.0 (primary diagnosis) Lasix burst x4 days. Xray chest to r/o fluid. BNP to be added to labs previously drawn today. Follow up in the office in 1 week. - XR CHEST 2V FRONTAL/LAT - FUROSEMIDE 40 MG TABLET - NT PRO BNP 2. SOB (shortness of breath) - ICD9: 786.05, ICD10: R06.02 Lasix burst x4 days. Xray chest to r/o fluid. BNP to be added to labs previously drawn today. Follow up in the office in 1 week. - XR CHEST 2V FRONTAL/LAT - FUROSEMIDE 40 MG TABLET - NT PRO BNP 3. CKD (chronic kidney disease) stage 2, GFR 60-89 ml/min - ICD9: 585.2, ICD10: N18.2 Lasix burst x4 days. Xray chest to r/o fluid. BNP to be added to labs previously drawn today. Follow up in the office in 1 week. - XR CHEST 2V FRONTAL/LAT - FUROSEMIDE 40 MG TABLET - NT PRO BNP 4. Hypertension, essential - ICD9: 401.9, ICD10: I10 - Controlled Lasix burst x4 days. Xray chest to r/o fluid. BNP to be added to labs previously drawn today. Follow up in the office in 1 week. - XR CHEST 2V FRONTAL/LAT - FUROSEMIDE 40 MG TABLET - NT PRO BNP Amelia Trotter APRN.TOOL HONING MACHINE SET UP OPERATOR Currently: Has chronic low back pain, but had some spasming in her left lower back a few days ago. Forgot to wear her compression stockings. Has been watching her sodium and eating out so much. Significant improvement in BLE edema. Seems like it is back to her normal. Denies CP or any different SOB than typical. Past medical history, appointments, medications, allergies reviewed. Previous Medical History PAST MEDICAL HISTORY Diagnosis Date Ulcerative colitis, unspecified Previous Surgical History PAST SURGICAL HISTORY Procedure Laterality Date LAMINECTOMY W/O FFD 05/29 VERT SEG LUMBAR Laminectomy, lumbar TONSILLECTOMY PRIMARY/SECONDARY <AGE 12 Tonsillectomy Family History FAMILY HISTORY Problem Relation Age of Onset Colon Cancer Father Colon Cancer Paternal Grandfather Cancer Unknown Patient Allergies ALLERGIES Allergen Reactions Wellbutrin [Bupropi* GI Upset caused some gi upset (abdominal pain and gas) dry mouth, and sore throat. Current Medications Current Outpatient Medications on File Prior to Visit Medication Sig albuterol HFA (VENTOLIN HFA) 90 mcg/actuation inhaler Inhale 2 Puffs as instructed every 4 hours as needed for wheezing/shortness of breath. Spirometers and Accessories bushra 1 Each as directed. Copd flare up, dyspnea, wheezing losartan-hydroCHLOROthiazide (HYZAAR) 50-12.5 mg per tablet Take 1 tablet by mouth once daily. 1 daily in the morning losartan (COZAAR) 50 mg tablet Take 1 tablet by mouth once daily. 1 daily in the evening [id number] (COSAMIN AVOCA, WITH BOSWELLIA,) 500-500-33.3-70 mg tab Take 1 tablet by mouth twice daily as needed. furosemide (LASIX) 40 mg tablet Take 1 tablet by mouth once daily for 4 days. No current facility-administered medications on file prior to visit. Social History Social History Tobacco Use Smoking status: Former Packs/day: 1 Types: Cigarettes Quit date: 12/2021 Years since quittin.6 Smokeless tobacco: Never Substance Use Topics Alcohol use: Yes Drug use: No Review of Symptoms REVIEW OF SYSTEMS See HPI, otherwise negative EXAM: BP 126/84 (BP Site: Left Arm, BP Position: Sitting, BP Cuff Size: Regular Adult) Pulse 77 Resp 16 Wt 109 kg (240 lb 6.4 oz) SpO2 100% BMI 40.05 kg/m General Appearance: Well appearing, alert, in no acute distress, well-hydrated, well nourished. and Morbidly obese. Lungs: Lungs clear to auscultation. No wheezing, rhonchi, rales.. Heart: RRR without murmur, gallop, or rubs. No ectopy. Extremities: bilateral trace-1+ pitting edema in lower legs. Neurologic: Gait normal. Reflexes normal and symmetric. Sensation grossly intact.. Psychiatric: pleasant, cooperative. Health Maintenance List Meningococcal B Vaccine: Consider Based On Risk(1 of 4 - Increased Risk) Never done Spirometry Never done BP Controlled (<130/80) Never done Hepatitis A Vaccine(1 of 2 - Risk 2-dose series) Never done Alpha-1 Antitrypsin Deficiency Screening Never done Hepatitis B Vaccine(1 of 3 - Risk 3-dose series) Never done RSV Vaccine(1 - 1-dose 60+ series) Never done Colorectal Cancer Screening due on 04/06/2012 Mammogram Screening due on 05/11/2023 Advance Directive Discussion Never done Influenza Vaccine(1) due on 11/25/2023 MMR Vaccine(1 of 2 - Risk 2-dose series) due on 12/28/2023 Shingrix Vaccine(1 of 2) due on 12/28/2023 Covid-19 Vaccine(2022- season) due on 07/09/2024 Annual PCP Team Chronic Disease Visit due on 07/30/2024 Serum Creatinine due on 07/30/2024 Diabetes Screening due on 07/30/2026 Lipid Screening due on 07/03/2027 DTaP,Tdap,Td Vaccine(2 - Td or Tdap) due on 01/24/2028 Bone Density Screening Completed Depression Assessment Completed Pneumococcal Vaccine: 65+ Completed Hepatitis C Screening Discontinued Data reviewed Previous records, office notes ASSESSMENT/PLAN: 1. Pedal edema - ICD9: 782.3, ICD10: R60.0 (primary diagnosis) Continue to monitor renal function due to furosemide burst. Increasing losartan/hydrochlorothiazide today. Has been taking this once daily in the mornings and then only losartan without the hctz in the evenings. She will now take the losartan/hctz twice daily. Wear compression stockings. - RENAL FUNCTION PANEL - LOSARTAN 50 MG-HYDROCHLOROTHIAZIDE 12.5 MG TABLET 2. CKD (chronic kidney disease) stage 2, GFR 60-89 ml/min - ICD9: 585.2, ICD10: N18.2 Continue to monitor renal function due to furosemide burst. Increasing losartan/hydrochlorothiazide today. Has been taking this once daily in the mornings and then only losartan without the hctz in the evenings. She will now take the losartan/hctz twice daily. Wear compression stockings. - RENAL FUNCTION PANEL - LOSARTAN 50 MG-HYDROCHLOROTHIAZIDE 12.5 MG TABLET 3. Hypertension, essential - ICD9: 401.9, ICD10: I10 Continue to monitor renal function due to furosemide burst. Increasing losartan/hydrochlorothiazide today. Has been taking this once daily in the mornings and then only losartan without the hctz in the evenings. She will now take the losartan/hctz twice daily. Wear compression stockings. - RENAL FUNCTION PANEL - LOSARTAN 50 MG-HYDROCHLOROTHIAZIDE 12.5 MG TABLET Amelia Trotter APRN.CNP documented in this encounter [facility] 08-01-2023 Miscellaneous Notes Spoke with pt and information listed below given. Pt verbalizes understanding. Apt for next week has been booked. Mai Campbell LPN Please let her know that her lab work all looks good. Amelia Trotter APRN.JAMI Phoned patient left message to return call and ask to speak to a nurse for results. Please let Nadja know that her chest xray looks normal. We'll continue with our current plan, I'll let her know when I get her lab results, and we'll plan to follow up in a week. Amelia Trotter APRN.CNP documented in this encounter [facility] 07-31-2023 History of Present illness Narrative Radiology Service Progress Note PATIENT NAME: Nadja Chaudhari DATE OF SERVICE: July 31, 2023 TIME: 3:08 PM PATIENT IDENTITY VERIFICATION COMPLETED USING TWO (2) IDENTIFIERS: Name and Date of confirmed by patient verbally. FALL SCREENING: Has the patient had 2 falls in the last year or 1 fall with injury or currently using an Ambulatory Assistive Device (Walker, Cane, Wheelchair, Crutches, etc.)? No PATIENT GENDER DATA: Female. status: : No status: NO. PATIENT RELEVANT IMPLANT DATA REVIEWED: Not Applicable PATIENT PRESENTS WITH AN IMPLANTABLE OR ATTACHED ZOOLOGY TEACHER: No RADIOLOGY DEPARTMENT: General X-ray: Exam(s) Completed: Chest X-Ray PERIPHERAL IV DATA: Not applicable SIGNED BY: RT Francisco J(R) July 31, 2023 3:08 PM documented in this encounter [facility] 07-19-2023 Miscellaneous Notes Pt informed, verbalized understanding Yoselin Hull Please inform patient that her recent labs show that her inflammation marker CRP and her serum BUM and creatinine for renal function were borderline. Needs to have these labs rechecked when able in the next 2 weeks Gray Quintana DO documented in this encounter [facility] 07-09-2023 History of Present illness Narrative CC: Nadja Chaudhari is a 73 year old female who presents to the office for follow up HPI: Recently she had a flare up x 2 episodes in the past 1 year and had to be treated with high dose steroids orally. This caused her appetite to be out of control and she gained 20 + lbs and she is very frustrated stating I haven't been this heavy ever in my life. I feel so tired and no energy. I need to lose weight. She is trying now to cut back on her sugars and starches and increase her protein in her diet. Bowel habits are back to normal. She is trying to eat better. Admits that she isn't exercising much due to lack of motivation. No SI or HI. She denies depressed mood HTN, well controlled, taking medication as prescribed. She denies CP or dyspnea or dizziness/Lh PAST MEDICAL HISTORY Diagnosis Date Ulcerative colitis, unspecified PAST SURGICAL HISTORY Procedure Laterality Date LAMINECTOMY W/O FFD 05/29 VERT SEG LUMBAR Laminectomy, lumbar TONSILLECTOMY PRIMARY/SECONDARY <AGE 12 Tonsillectomy Current Outpatient Medications Medication Sig albuterol HFA (VENTOLIN HFA) 90 mcg/actuation inhaler Inhale 2 Puffs as instructed every 4 hours as needed for wheezing/shortness of breath. Spirometers and Accessories bushra 1 Each as directed. Copd flare up, dyspnea, wheezing losartan-hydroCHLOROthiazide (HYZAAR) 50-12.5 mg per tablet Take 1 tablet by mouth once daily. 1 daily in the morning losartan (COZAAR) 50 mg tablet Take 1 tablet by mouth once daily. 1 daily in the evening cinnamon bark (CINNAMON ORAL) Take 2,400 mg by mouth twice daily. vozofvnynsp-tke-HkqewL-zymb755 (COSAMIN AVOCA, WITH BOSWELLIA,) 500-500-33.3-70 mg tab Take 1 tablet by mouth twice daily as needed. metFORMIN ER (GLUCOPHAGE XR) 500 mg 24 hr tablet Take 1 tablet by mouth daily with dinner. No current facility-administered medications for this visit. ALLERGIES Allergen Reactions Wellbutrin [Bupropi* GI Upset caused some gi upset (abdominal pain and gas) dry mouth, and sore throat. Social History Tobacco Use Smoking status: Former Packs/day: 1 Types: Cigarettes Quit date: 12/2021 Years since quittin.5 Smokeless tobacco: Never Substance Use Topics Alcohol use: Yes Drug use: No ROS: See HPI PE: BP 110/70 Pulse 64 Temp (Src) 97.7 (Temporal) Resp 20 Wt 242 lb (109.8kg) Gen: A&OX3, NAD, non-toxic appearing HEENT: PERRLA, EOMs intact b/l, nares without drainage, pharynx without erythema, exudate, lesions, or drainage. Uvula midline. Neck: No LAD, no thyromegaly, no meningismus. CV: RRR, no murmur Lungs: CTA b/l, no wheezing Skin: No rashes, lesions, or wounds on exposed skin. Central obesity Trace edema b/l ankles and lower legs non pitting ASSESSMENT/PLAN: 1. Weight gain - ICD9: 783.1, ICD10: R63.5 (primary diagnosis) Labs as ordered, add on metformin to help her obesity and insulin resistance. Needs to increase protein intake by at least 100 grams a day total and decrease carbohydrate intake to <75 grams per day. F/u in office in 3 months and prn. Needs to increase her exercise by walking as well. - COMP METABOLIC PANEL - TSH BLD - T4 FREE/FREE THYROX - T3 FREE BLD - CBC + DIFF 2. CKD (chronic kidney disease) stage 2, GFR 60-89 ml/min - ICD9: 585.2, ICD10: N18.2 - eGFR: 69 Stable - Counseled on avoiding NSAIDs, adequate hydration - Counseled on low sodium diet 3. Osteopenia, unspecified location - ICD9: 733.90, ICD10: M85.80 - Reviewed the need for Calcium and Vitamin D supplements and weight bearing exercise as tolerated 4. Elevated C-reactive protein (CRP) - ICD9: 790.95, ICD10: R79.82 - C-REACTIVE PROTEIN (CRP) 5. Hypertension, essential - ICD9: 401.9, ICD10: I10 - Controlled - Continue current medications - Recommend home blood pressure monitoring, to bring results to next visit - Encouraged sodium restriction, DASH or Mediterranean diet - Recommend regular aerobic exercise 6. Obesity, Class II, BMI 35-39.9 - ICD9: 278.00, ICD10: E66.9 - Lengthy discussion in office today regarding diet and exercise. Discussed use of small plate to eat meals from, drink 1 glass of water 10-15 minutes prior to eating meal, drink 8 glasses of water daily, eat fresh fruit and vegetable during meal first then lean protein such as grilled/baked chicken breast or fish, limit carbohydrate intake (less pasta, breads, rice and snack foods) as well as limiting sugars (desserts etc). Important to count / track your calories and exercise as well. 7. Fatigue, unspecified type - ICD9: 780.79, ICD10: R53.83 Labs as ordered - COMP METABOLIC PANEL - TSH BLD - T4 FREE/FREE THYROX - T3 FREE BLD - CBC + DIFF - VITAMIN D 25 HYDROXY - VITAMIN B12 BLOOD 8. Vitamin D deficiency - ICD9: 268.9, ICD10: E55.9 - VITAMIN D 25 HYDROXY 9. Hyperglycemia - ICD9: 790.29, ICD10: R73.9 - HGB A1C 10. Acute bronchitis with chronic obstructive pulmonary disease (COPD) (HCC) (HCC) - ICD9: 491.22, ICD10: J44.0, J20.9 Hx of, no current symptoms. 11. Ulcerative colitis without complications, unspecified location (HCC) - ICD9: 556.9, ICD10: K51.90 F/u with stem processing machine operator Gray Quintana DO Return if no improvement. Follow up with Gray Quintana DO. To ER if develops chest pain, shortness of breath. Discussed risks, benefits, alternatives, and potential side effects of medications. Patient/Guardian expressed understanding and agreed with the plan. See patient instructions. Gray Quintana DO [address] [place] [address] documented in this encounter [facility] 05-03-2023 Miscellaneous Notes Noted. Agree with below. Thank you, Christina Anthony APRN.JAMI Phoned patient and given provider's message below with verbalized understanding. Patient reports she had CT chest done at [facility] last year around Mar, ordered by home health outreach coordinator. States she will try to get those results and bring to her next appt. The radiologist doesn't make any notes regarding any concerns for worsening COPD Gray Quintana DO Lab results on your desk from [facility]. See note below. Patient calls back and is asking if COPD and Asthma is getting worse. Patient is confused because she thought she was having CT scan done to see if her COPD and Asthma were getting worse. Please review and advise, Kasey Perez RN Talked to patient and she understands the previous CT scan could not be compared to this one and she needs to get a CT scan of chest in 12 months. Chhaya Johnson Please inform patient that her CT of the chest shows that she has a few pulmonary nodules. We aren't able to review images from her previous CT chest in 2004 to know if these are growing / changing. The home health outreach coordinator recommends recheck of CT chest in 12 months to make sure this is stable Gray Quintana DO Pt received a letter in the mail today regarding CT scan she had done on the showed a possible finding that is unrelated to why the test was ordered. Letter states found unexpected results as part of the CT chest. It could be a normal finding in your body but for her safety, they would like to do a follow up. Pt is concerned because of this letter and calling to see what the results are. Pt aware the provider has been out of the office and that we will call her back as soon as provider has reviewed them. documented in this encounter [facility] 05-03-2023 Miscellaneous Notes Phoned patient and went over results, notes from Dr Quintana with understanding. Please inform patient that I have reviewed her [facility] labs from 04/17. They were normal except for elevated CRP inflammatory marker. I would like her to have this rechecked in the next few weeks Gray Quintana DO documented in this encounter [facility] 04-23-[address] - 04/23/2023 2:06 PM EST Aim for low fiber, low residue diet as much as possible Avoid simple sugars and lactose If needed try liquid nutrition for a couple days If have to take steroids follow a low carbohydrate diet When feeling better, transition back to current plan documented in this encounter [facility] 04-23-2023 History of Present illness Narrative Nutritional Therapy Re-Assessment Nutrition Diagnosis: Overweight/obesity, related to, excess energy intake and physical inactivity, as evidenced by BMI above normative standard for age and gender RECOMMENDED MALNUTRITION DIAGNOSIS: NO MALNUTRITION IDENTIFIED NUTRITION CARE PLAN: Nutrition Intervention 04/23/2023: modify type and amount of food or beverage Aim for low fiber, low residue diet as much as possible Avoid simple sugars and lactose If needed try liquid nutrition for a couple days If have to take steroids follow a low carbohydrate diet When feeling better, transition back to current plan Nutrition Monitoring & Evaluation: symptom free to transition back to provided plan Need for Follow up: as needed PROGRESS: Interval History: following as relates to class 2 obesity Body mass index is 37.2 kg/m . NEVA, CKD stage 2 and elevated glucose. Also with UC and currently in a flair after viral infection, has GI appointment in April. Intake prior to virus still high sodium. Was walking for exercise. Note ~9 lbs lost from last visit. Wants to hold off on reschedule at this time. Nutrition Intervention 03/12/23 Choose whole grain, high fiber breads and grains only Try triple zero Estonian yogurts Aim for 2 oz/14 grams protein at breakfast and 3 oz/21 gms or servings at lunch and dinner Plan for half plate veggies, keep plate smaller 8-10 plate All meals and snacks at the dinner table; minimize distractions, no TV while eating. Make meals last at least 20 min, chew each bite of food 20 x per bite.Portion out all foods, never eat out of container. Become more mindful of meal: Enjoy flavors, textures etc. Use hunger/fullness scale. All beverages calorie free and sugar free Include 30 min walking or excess most days Continue 2000 mg sodium or less Actions to implement interventions: limited Diet History: Breakfast - egg or 2 with toast, abdul once of 2-3 strips, ; may have yogurt; milk Snack - not usually Lunch - jenny witt or jacinto; Snack - not usually Dinner - Slovenian a few x; garlic chicken, low sodium frozen meals Snack - Doritos Beverages - milk, water, diet tea, a couple cokes Alcohol - no Vitamins/Supplements - vit D Currently: cup of yogurt, an egg, white toast; Soups ;chicken noodle with toasted cheese [place], dressing, mashed potatoes, cucumbers with loredo Activity: Activities of Daily Living: varies Additional Activity: limited lately Was walking before sick Anthropometrics: Height: Last 1 Encounter Ht Readings: Date: Ht: 04/23/2023 165 cm (5' 4.96) Current weight: Last 1 Encounter Wt Readings: Date: Wt: 04/23/2023 101.3 kg (223 lb 4.8 oz) Body mass index is 37.2 kg/m . Resting Metabolic Rate: 1522 Malnutrition Screening Significant unintentional weight loss? No Eating less than 75% of usual intake for more than 2 weeks? No Potential Signs of Inflammation: no identifiable sources Nutritional status: Education Materials Provided: None this visit READINESS TO LEARN Cognitive ability: Alert and oriented Motivation to learn: Interested Family support: Unable to assess - Family not present Instruction provided to: Patient Patient learns best by: Individual Instruction Factors affecting learning: None Physical limitations affecting learning: None Likelihood of Adherence: Moderate Referred/Supervised by: Raj/Abeba SY Billing Type: Re-assess/15 min 2 units SIGNATURE: Lanie Love RD PATIENT NAME: Nadja Chaudhari DATE: April 23, 2023 TIME: 1:52 PM documented in this encounter [facility] 04-06-2023 Instructions Gray Quintana DO - 04/06/2023 12:23 PM EST Mucinex generic - guafenasin 600 mg twice a day Albuterol 2 puffs every 4-6 hours as needed for upper respiratory infection (cold) If continue to get COPD flare ups, then we will start Symbicort or Advair or other daily inhaler documented in this encounter [facility] 04-06-2023 History of Present illness Narrative CC: Nadja Chaudhari is a 73 year old female who presents to the office for EMERGENCY DEPARTMENT follow up HPI: Patient states that on 03/23/23 she was having Sore throat and chest congestion. She was concerned since the symptoms were worsening- she went to the EMERGENCY DEPARTMENT, had testing and CXR which was normal as well as she was negative for flu and covid and RSV. Was told that she has a COPD flare up - she wasn't send home on any oral medications- just albuterol inhaler which she did use. Was seen in the past by Dr. Montaño [employer]- had PFTs and told that she may also have asthma as well as the COPD. Hadn't been using an inhaler previous to this flare up. Was in the past given a daily preventative steroid inhaler which she thinks was symbicort. Does feel that her symptoms are improving and she is feeling better- just mild amount of clear white mucous and cough remains. No fevers or chills. PAST MEDICAL HISTORY Diagnosis Date Ulcerative colitis, unspecified PAST SURGICAL HISTORY Procedure Laterality Date LAMINECTOMY W/O FFD 1/2 VERT SEG LUMBAR Laminectomy, lumbar TONSILLECTOMY PRIMARY/SECONDARY <AGE 12 Tonsillectomy Current Outpatient Medications Medication Sig losartan-hydroCHLOROthiazide (HYZAAR) 50-12.5 mg per tablet Take 1 tablet by mouth once daily. 1 daily in the morning losartan (COZAAR) 50 mg tablet Take 1 tablet by mouth once daily. 1 daily in the evening cinnamon bark (CINNAMON ORAL) Take 2,400 mg by mouth twice daily. [id number] (COSAMIN AVOCA, WITH BOSWELLIA,) 500-500-33.3-70 mg tab Take 1 tablet by mouth twice daily as needed. Spirometers and Accessories bushra 1 Each as directed. Copd flare up, dyspnea, wheezing No current facility-administered medications for this visit. ALLERGIES Allergen Reactions Wellbutrin [Bupropi* GI Upset caused some gi upset (abdominal pain and gas) dry mouth, and sore throat. / Social History Tobacco Use Smoking status: Former Packs/day: 1 Types: Cigarettes Quit date: 12/2021 Years since quittin.2 Smokeless tobacco: Never Substance Use Topics Alcohol use: Yes Drug use: No ROS: See HPI PE: BP 110/64 Pulse 80 Temp (Src) 97.7 (Right Tympanic) Resp 16 Wt 231 lb (104.8kg) Gen: A&OX3, NAD, non-toxic appearing HEENT: PERRLA, EOMs intact b/l, nares without drainage, pharynx without erythema, exudate, lesions, or drainage. Uvula midline. Neck: No LAD, no thyromegaly, no meningismus. CV: RRR, no murmur Lungs: mild cough present, intermittent scattered wheeze expiratory throughout the lung joyce on examination today, no distress No edema, normal pulses Skin: No rashes, lesions, or wounds on exposed skin. ASSESSMENT/PLAN: 1. Acute bronchitis with chronic obstructive pulmonary disease (COPD) ([facility]) - ICD9: 491.22, ICD10: J44.0, J20.9 (primary diagnosis) rx as below as needed, start on mucinex twice a day. Need for CT chest due to history of lung nodules and now with recent COPD flare up. Consider starting on daily steroid inhaler for prevention if needed - ALBUTEROL SULFATE HFA 90 MCG/ACTUATION AEROSOL INHALER 2. Lung nodule, multiple - ICD9: 793.19, ICD10: R91.8 rx as below as needed, start on mucinex twice a day. Need for CT chest due to history of lung nodules and now with recent COPD flare up. Consider starting on daily steroid inhaler for prevention if needed - CT CHEST WO IVCON - SPIROMETERS AND ACCESSORIES 3. Chronic obstructive pulmonary disease, unspecified COPD type (HCC) - ICD9: 496, ICD10: J44.9 rx as below as needed, start on mucinex twice a day. Need for CT chest due to history of lung nodules and now with recent COPD flare up. Consider starting on daily steroid inhaler for prevention if needed - CT CHEST WO IVCON - SPIROMETERS AND ACCESSORIES - ALBUTEROL SULFATE HFA 90 MCG/ACTUATION AEROSOL INHALER Gray Quintana DO Return if no improvement. Follow up with Gray Quintana DO. To ER if develops chest pain, shortness of breath. Discussed risks, benefits, alternatives, and potential side effects of medications. Patient/Guardian expressed understanding and agreed with the plan. See patient instructions. Gray Quintana DO [address] [place] [address] documented in this encounter [facility] 03-19-2023 Miscellaneous Notes nOTIFED PT OF SUCH. Prescriptions refilled. Patient requesting return phone call. The following approved medication requests have been transmitted electronically. Requested Prescriptions Signed Prescriptions Disp Refills losartan-hydroCHLOROthiazide (HYZAAR) 50-12.5 mg per tablet 90 tablet 1 Sig: Take 1 tablet by mouth once daily. 1 daily in the morning Authorizing Provider: MATTI KWOK losartan (COZAAR) 50 mg tablet 90 tablet 1 Sig: Take 1 tablet by mouth once daily. 1 daily in the evening Authorizing Provider: MATTI KWOK PA-C Per below pt is out of medication and requesting refill today. Call pt when refilled. Last refills 08/23/22 Qty; 90 with 1 refill CHANI 01/16/23 NOV 04/06/23 Toni Santos LPN Patient is out of this medication. Please refill today and advise. Patient has been identified by name and date of : Yes Requested Prescriptions Pending Prescriptions Disp Refills losartan-hydroCHLOROthiazide (HYZAAR) 50-12.5 mg per tablet 90 tablet 1 Sig: Take 1 tablet by mouth once daily. 1 daily in the morning losartan (COZAAR) 50 mg tablet 90 tablet 1 Sig: Take 1 tablet by mouth once daily. 1 daily in the evening RX INSTRUCTIONS: Patient requesting a call when RX is approved and sent to the pharmacy. Please call patient Madison Dumont documented in this encounter [facility] 03-12-[address] - 03/12/2023 2:55 PM EDT Choose whole grain, high fiber breads and grains only Try triple zero Estonian yogurts Aim for 2 oz/14 grams protein at breakfast and 3 oz/21 gms or servings at lunch and dinner Plan for half plate veggies, keep plate smaller 8-10 plate All meals and snacks at the dinner table; minimize distractions, no TV while eating. Make meals last at least 20 min, chew each bite of food 20 x per bite.Portion out all foods, never eat out of container. Become more mindful of meal: Enjoy flavors, textures etc. Use hunger/fullness scale. All beverages calorie free and sugar free Include 30 min walking or excess most days Continue 2000 mg sodium or less documented in this encounter [facility] 03-12-2023 History of Present illness Narrative Nutritional Therapy Re-Assessment Nutrition Diagnosis: Behavioral-Environmental: Food and nutrition related knowledge deficit, related to, lack of prior exposure to information , as evidenced by change in existing diagnosis or condition RECOMMENDED MALNUTRITION DIAGNOSIS: NO MALNUTRITION IDENTIFIED NUTRITION CARE PLAN: Nutrition Intervention 03/12/2023: comprehensive nutrition education Choose whole grain, high fiber breads and grains only Try triple zero Estonian yogurts Aim for 2 oz/14 grams protein at breakfast and 3 oz/21 gms or servings at lunch and dinner Plan for half plate veggies, keep plate smaller 8-10 plate All meals and snacks at the dinner table; minimize distractions, no TV while eating. Make meals last at least 20 min, chew each bite of food 20 x per bite.Portion out all foods, never eat out of container. Become more mindful of meal: Enjoy flavors, textures etc. Use hunger/fullness scale. All beverages calorie free and sugar free Include 30 min walking or excess most days Continue 2000 mg sodium or less Nutrition Monitoring & Evaluation: Weight loss and labs target range Need for Follow up: 4-6 weeks PROGRESS: Interval History: Following as relates to class 2 obesity Body mass index is 38.74 kg/m .NEVA, CKD stage 2 and elevated glucose. Other medical issues UC, HTN, asthma. Had tracked intake for a while, found very high sodium intake . Has frequent meals out, still high sodium intake. Protein portions higher than recommended, was trying to restrict carbs, was overwhelmed. Includes occ exercise, states has been sore lately. Nutrition Intervention 01/22/23 Aim for breakfast, lunch and dinner ,no skipped meals All meals and snacks at the dinner table; minimize distractions, no TV while eating. Make meals last at least 20 min, chew each bite of food 20 x per bite.Portion out all foods, never eat out of container. Become more mindful of meal: Enjoy flavors, textures etc. Use hunger/fullness scale. All beverages calorie free and sugar free Aim for 2 oz/14 grams protein at breakfast and 3 oz/21 gms or servings at lunch and dinner Keep proteins lean , low fat and low saturated fat Follow 2000 mg sodium diet . Avoid the following foods: Salt, salt seasonings, and monosodium glutamate (a seasoning salt added to foods) Soy sauce Salted crackers and snack foods Vegetables prepared in brine (such as pickles, sauerkraut) Cured and processed meats (such as cold cuts, smoked fish) Condensed or canned soups that are made by adding water Sodium Terms and Their Meaning Very Low Sodium: 35 mg sodium or less per serving Low Sodium: 140 mg sodium or less per serving Reduced Sodium: Sodium is reduced by 25% Light in Sodium: Sodium is reduced by at least 50% Ingredient List If salt or sodium is listed within the first 5 ingredients, the item is likely to have a high sodium content and should not be used. Nutrition Label Food labels have milligrams (mg) of sodium listed. A sodium level of 500 mg or more per serving is too high in sodium to use. Avoid foods that are fortified with extra vitamin C. Shopping Tips Meats: Choose fresh meat, fish, and poultry that have not been processed with salt or sodium nitrate/nitrite. Fruits: Choose allowed fresh, frozen, or canned fruits. Vegetables: Choose allowed fresh, frozen or low-sodium canned vegetables. Avoid vegetables prepared in brine. Dairy: Choose low-fat milk or milk products, such as plain or fruited yogurt with allowed fruits. Breads/Cereals: Choose breads and cereals without nuts. Bread does not have to be low sodium but should not have salted toppings. Desserts: Choose cookies, cakes, or ice cream without nuts or chocolate. Snacks: Choose unsalted chips, pretzels, or popcorn. Avoid nuts and peanut butter. Avoid the salt shaker and other salt seasonings when cooking. Use lemon juice, herbs, and spices that do not contain salt to add flavor. If taking potassium citrate do not use salt substitutes or low salt milk. The reason for this is that these products will likely contain potassium. This could cause an accidental excess of potassium. Include at least 30 min walking most days and strength 2-3 days per week Limit milk to 3-8 oz cups daily; if able change to 1% milk Stay well hydrated Change to soft tub style margarine unsalted instead of butter Actions to implement interventions: Some tracking Watching sodium Diet History: Breakfast - last couple days skipped; today one egg with 2 toast one psc with jelly; may have cottage cheese with pineapple Snack - no Lunch - chicken breast dinner with mashed potato and coleslaw ([employer]); 1/2 sub teriaki chicke Snack - not usually Dinner - Stir de jesus dinners, low sodium frozen meals; beef stew with veggies; home made chicken noodle soup Snack - try not to; occ cocoa dusted almonds Beverages - milk 2 cups, water, diet tea, today a coke, Alcohol - no Vitamins/Supplements - D3 Activity: Activities of Daily Living: varies Additional Activity: Lightly active (Light exercise: planned physical activity 1-3 days/week) Walk 30 min most days (not lest couple days) Occ Kettle garcia or bands Anthropometrics: Height: Last 1 Encounter Ht Readings: Date: Ht: 03/12/2023 165 cm (5' 4.96) Current weight: Last 1 Encounter Wt Readings: Date: Wt: 03/12/2023 105.5 kg (232 lb 8 oz) Body mass index is 38.74 kg/m . Resting Metabolic Rate: 1569 Malnutrition Screening Significant unintentional weight loss? No Eating less than 75% of usual intake for more than 2 weeks? No Potential Signs of Inflammation: no identifiable sources Nutritional status: Education Materials Provided: None this visit READINESS TO LEARN Cognitive ability: Alert and oriented Motivation to learn: Interested Family support: Unable to assess - Family not present Instruction provided to: Patient Patient learns best by: Individual Instruction Factors affecting learning: None Physical limitations affecting learning: None Likelihood of Adherence: Moderate Referred/Supervised by: Raj/Abeba SY Billing Type: Re-assess/15 min 2 units SIGNATURE: Lanie Love RD PATIENT NAME: Nadja Chaudhari DATE: March 12, 2023 TIME: 2:32 PM documented in this encounter [facility] 01-22-[address] - 01/22/2023 12:54 PM EDT Aim for breakfast, lunch and dinner ,no skipped meals All meals and snacks at the dinner table; minimize distractions, no TV while eating. Make meals last at least 20 min, chew each bite of food 20 x per bite.Portion out all foods, never eat out of container. Become more mindful of meal: Enjoy flavors, textures etc. Use hunger/fullness scale. All beverages calorie free and sugar free Aim for 2 oz/14 grams protein at breakfast and 3 oz/21 gms or servings at lunch and dinner Keep proteins lean , low fat and low saturated fat Follow 2000 mg sodium diet . Avoid the following foods: Salt, salt seasonings, and monosodium glutamate (a seasoning salt added to foods) Soy sauce Salted crackers and snack foods Vegetables prepared in brine (such as pickles, sauerkraut) Cured and processed meats (such as cold cuts, smoked fish) Condensed or canned soups that are made by adding water Sodium Terms and Their Meaning Very Low Sodium: 35 mg sodium or less per serving Low Sodium: 140 mg sodium or less per serving Reduced Sodium: Sodium is reduced by 25% Light in Sodium: Sodium is reduced by at least 50% Ingredient List If salt or sodium is listed within the first 5 ingredients, the item is likely to have a high sodium content and should not be used. Nutrition Label Food labels have milligrams (mg) of sodium listed. A sodium level of 500 mg or more per serving is too high in sodium to use. Avoid foods that are fortified with extra vitamin C. Shopping Tips Meats: Choose fresh meat, fish, and poultry that have not been processed with salt or sodium nitrate/nitrite. Fruits: Choose allowed fresh, frozen, or canned fruits. Vegetables: Choose allowed fresh, frozen or low-sodium canned vegetables. Avoid vegetables prepared in brine. Dairy: Choose low-fat milk or milk products, such as plain or fruited yogurt with allowed fruits. Breads/Cereals: Choose breads and cereals without nuts. Bread does not have to be low sodium but should not have salted toppings. Desserts: Choose cookies, cakes, or ice cream without nuts or chocolate. Snacks: Choose unsalted chips, pretzels, or popcorn. Avoid nuts and peanut butter. Avoid the salt shaker and other salt seasonings when cooking. Use lemon juice, herbs, and spices that do not contain salt to add flavor. If taking potassium citrate do not use salt substitutes or low salt milk. The reason for this is that these products will likely contain potassium. This could cause an accidental excess of potassium. Include at least 30 min walking most days and strength 2-3 days per week Limit milk to 3-8 oz cups daily; if able change to 1% milk Stay well hydrated Change to soft tub style margarine unsalted instead of butter documented in this encounter [facility] 01-22-2023 History of Present illness Narrative Nutrition Therapy Initial Assessment Nutrition Diagnosis: Behavioral-Environmental: Food and nutrition related knowledge deficit, related to, lack of prior exposure to information , as evidenced by change in existing diagnosis or condition. RECOMMENDED MALNUTRITION DIAGNOSIS: NO MALNUTRITION IDENTIFIED NUTRITION CARE PLAN Nutrition Intervention 01/22/2023: modify type and amount of food or beverage Aim for breakfast, lunch and dinner ,no skipped meals All meals and snacks at the dinner table; minimize distractions, no TV while eating. Make meals last at least 20 min, chew each bite of food 20 x per bite.Portion out all foods, never eat out of container. Become more mindful of meal: Enjoy flavors, textures etc. Use hunger/fullness scale. All beverages calorie free and sugar free Aim for 2 oz/14 grams protein at breakfast and 3 oz/21 gms or servings at lunch and dinner Keep proteins lean , low fat and low saturated fat Follow 2000 mg sodium diet . Avoid the following foods: Salt, salt seasonings, and monosodium glutamate (a seasoning salt added to foods) Soy sauce Salted crackers and snack foods Vegetables prepared in brine (such as pickles, sauerkraut) Cured and processed meats (such as cold cuts, smoked fish) Condensed or canned soups that are made by adding water Sodium Terms and Their Meaning Very Low Sodium: 35 mg sodium or less per serving Low Sodium: 140 mg sodium or less per serving Reduced Sodium: Sodium is reduced by 25% Light in Sodium: Sodium is reduced by at least 50% Ingredient List If salt or sodium is listed within the first 5 ingredients, the item is likely to have a high sodium content and should not be used. Nutrition Label Food labels have milligrams (mg) of sodium listed. A sodium level of 500 mg or more per serving is too high in sodium to use. Avoid foods that are fortified with extra vitamin C. Shopping Tips Meats: Choose fresh meat, fish, and poultry that have not been processed with salt or sodium nitrate/nitrite. Fruits: Choose allowed fresh, frozen, or canned fruits. Vegetables: Choose allowed fresh, frozen or low-sodium canned vegetables. Avoid vegetables prepared in brine. Dairy: Choose low-fat milk or milk products, such as plain or fruited yogurt with allowed fruits. Breads/Cereals: Choose breads and cereals without nuts. Bread does not have to be low sodium but should not have salted toppings. Desserts: Choose cookies, cakes, or ice cream without nuts or chocolate. Snacks: Choose unsalted chips, pretzels, or popcorn. Avoid nuts and peanut butter. Avoid the salt shaker and other salt seasonings when cooking. Use lemon juice, herbs, and spices that do not contain salt to add flavor. If taking potassium citrate do not use salt substitutes or low salt milk. The reason for this is that these products will likely contain potassium. This could cause an accidental excess of potassium. Include at least 30 min walking most days and strength 2-3 days per week Limit milk to 3-8 oz cups daily; if able change to 1% milk Stay well hydrated Change to soft tub style margarine unsalted instead of butter Nutrition Monitoring & Evaluation: weight loss and labs in target range Need for Follow up: 4-6 weeks Patient presents for initial MNT as relates to class 2 obesity Body mass index is 38.4 kg/m . NEVA, CKD stage 2 and elevated glucose. Other medical issues UC, HTN, astham. Has required periodic steroid treatments. Has a goal weight los of 180-185 lbs Tends towards sweets, eats related to boredom . Working on modifying diet . Has high cravings for sweets. Includes regular exercise but less than recommended. Patient's symptoms are: Weight Concerns: failure to lose weight Diet History: Eat with a sweet and milk to have medcation Breakfast - rice krispies/2%, occ egg boiled or fried in avocado oil; Snack - not usually, occ may have something sweet like candy bar or small turn over or cheese cake, milk Lunch - 1-2 burgerking, subway, taco garcia. (Or breakfast would have later and not lunch Snack - not usually Dinner - pork chops in mushroom gravy (watching sodium), may have bread and butter Snack - may have avocado dip and tortilla chips Beverages - water, milk, reg coke (about one can per day but not every day); Alcohol- no Vitamins/Supplements - D3 One gallon milk every 4-5 days [place] Stop eating 5-8 Occ snack on deviled eggs Activity: Activities of Daily Living: varies, shopping Additional Activity: Moderately active (Moderate intensity exercise: Planned physical activity 3-5 days/week) Some band work Occ [employer] Walk (20-25 min) - 2-5 x per week Anthropometrics: Height: Last 1 Encounter Ht Readings: Date: Ht: 01/22/2023 165 cm (5' 4.96) Current weight: Last 1 Encounter Wt Readings: Date: Wt: 01/22/2023 104.6 kg (230 lb 8 oz) Body mass index is 38.4 kg/m . Resting Metabolic Rate: 1560 Malnutrition Screening Significant unintentional weight loss? No Eating less than 75% of usual intake for more than 2 weeks? No Potential Signs of Inflammation: no identifiable sources Education Materials Provided: Sodium controlled READINESS TO LEARN Cognitive ability: Alert and oriented Motivation to learn: Interested Family support: Unable to assess - Family not present Instruction provided to: Patient Patient learns best by: Individual Instruction Factors affecting learning: None Physical limitations affecting learning: None Referred/Supervised by: Raj/Abeba SY Billing Type: Initial Assess/15 min 3 units SIGNATURE: Lanie Love RD PATIENT NAME: Nadja Chaudhari DATE: January 22, 2023 TIME: 12:18 PM documented in this encounter [facility] 01-16-2023 Instructions Carolyn Ramirez APRN.CNP - 01/16/2023 2:40 PM EDT Continue the same medications. documented in this encounter [facility] 01-16-2023 History of Present illness Narrative This is a 72 year old female who presents today with: Patient presents with: Recheck: Weight loss medication HISTORY OF PRESENT ILLNESS: Nadja Chaudhari is a 72 year old female. Patient presents with: Recheck: Weight loss medication Pt scheduled today for a medication follow-up. Was ordered wellbutrin. More gas/bloating with wellbutrin. Hx of ulcerative colitis. Stopped medication. Actually came in today to discuss kidney function. Refers that she didn't know she was in stage 2 CKD. Was very anxious because her spouse was on dialysis. PAST MEDICAL HISTORY: PAST MEDICAL HISTORY Diagnosis Date Ulcerative colitis, unspecified PAST SURGICAL HISTORY Procedure Laterality Date LAMINECTOMY W/O FFD 05/29 VERT SEG LUMBAR Laminectomy, lumbar TONSILLECTOMY PRIMARY/SECONDARY <AGE 12 Tonsillectomy ALLERGIES Wellbutrin [Bupropion] MEDICATIONS Current Outpatient Medications Medication Sig losartan (COZAAR) 50 mg tablet Take 1 tablet by mouth once daily. 1 daily in the evening losartan-hydroCHLOROthiazide (HYZAAR) 50-12.5 mg per tablet Take 1 tablet by mouth once daily. 1 daily in the morning [id number] (COSAMIN AVOCA, WITH BOSWELLIA,) 500-500-33.3-70 mg tab Take 1 tablet by mouth twice daily as needed. cinnamon bark (CINNAMON ORAL) Take 2,400 mg by mouth twice daily. No current facility-administered medications for this visit. FAMILY HISTORY Problem Relation Age of Onset Colon Cancer Father Colon Cancer Paternal Grandfather Cancer Unknown Social History Tobacco Use Smoking status: Former Packs/day: 1 Types: Cigarettes Quit date: 12/2021 Years since quittin.0 Smokeless tobacco: Never Substance Use Topics Alcohol use: Yes Drug use: No EXAM: BP 120/74 Pulse 80 Resp 16 Wt 106.1 kg (234 lb) SpO2 95% BMI 38.99 kg/m PHYSICAL EXAM: General Appearance: Well appearing, alert, in no acute distress, well-hydrated, well nourished.. Skin: Skin color, texture, turgor normal, no suspicious rashes or lesions. Head: Normocephalic, no masses, lesions, tenderness or abnormalities. Eyes: Anicteric sclera. Extraocular movements are intact. Neurologic: Gait normal. ASSESSMENT/PLAN: 1. CKD (chronic kidney disease) stage 2, GFR 60-89 ml/min - ICD9: 585.2, ICD10: N18.2 (primary diagnosis) Discussed with patient that her kidney function is stable. Discussed that previously, GFRs were reported as > 60, as opposed to an actual number that could rated. She does not take nsaids. She is on ARB. Kidney function will continue to be monitored. 2. Obesity, Class II, BMI 35-39.9 - ICD9: 278.00, ICD10: E66.9 She is working on diet/exercise. 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 Discussed treatment plan and patient voices understanding. Patient's questions answered appropriately. Medications and potential side effects were discussed and patient voices understanding. Return to the office as scheduled or as needed for worsening/no improvement. Carolyn Ramirez APRN.JAMI I spent a total of 25 minutes on the date of the service which included preparing to see the patient, [id number] patient care, completing clinical documentation, obtaining and/or reviewing separately obtained history, performing a medically appropriate examination, counseling and educating the patient/family/caregiver, and ordering medications, tests, or procedures. documented in this encounter [facility] [facility] Telephone encounter Note 1st attempt left message as nutrition appt was cancelled please see phone note in regards to ins issue and must be billed as Obesity, Class II, BMI 35-39.9 [E66.9] [facility] 01-11-2023 Miscellaneous Notes 1st attempt left message as nutrition appt was cancelled please see phone note in regards to ins issue and must be billed as Obesity, Class II, BMI 35-39.9 [E66.9] The referral is showing a primary dx of Obesity. When the patient sees Lanie, she will have to make sure the dx is for Obesity so the claim will get paid. Merle It looks like referral has right DX. Can you help with this. Patient does have obesity, please recode for nutrition visit Gray Quintana DO Patient has upcoming appointment on 01/08 With Lanie Love. Her Insurance company notified her that they would not cover this appointment with the current codes attached to it. Patient stated in order to keep appointment the code can be for obesity screening and counceling and/or bmi of 30% or higher. Please review and advise patient. Nickie Hopkins documented in this encounter [facility] 01-10-2023 Miscellaneous Notes Noted. Thank you, Christina Anthony APRN.TOOL HONING MACHINE SET UP OPERATOR Patient calls to let provider know that she started bupropion 3 days ago and it has caused some gi upset (abdominal pain and gas) dry mouth, and sore throat. Patient is concerned that it is going to interfere with her colitis and/or sleep apnea and is going to stop taking medication. Patient doesn't want to take anything in it's place as she knows it has the least severe side effects as discussed at appointment on 12/27/2022. Nicki Farmer RN documented in this encounter [facility] 01-10-2023 Telephone encounter Note The referral is showing a primary dx of Obesity. When the patient sees Lanie, she will have to make sure the dx is for Obesity so the claim will get paid. Merle [facility] Work Phone: 01-03-2023 Telephone encounter Note It looks like referral has right DX. Can you help with this. [facility] 12-29-2022 Telephone encounter Note Patient does have obesity, please recode for nutrition visit Gray Quintana DO [facility] 12-29-2022 Telephone encounter Note Patient has upcoming appointment on 01/08 With Lanie Love. Her Insurance company notified her that they would not cover this appointment with the current codes attached to it. Patient stated in order to keep appointment the code can be for obesity screening and counceling and/or bmi of 30% or higher. Please review and advise patient. Nickie Hopkins [facility] 12-28-2022 Miscellaneous Notes Patient notified of results, verbalizes understanding of instructions. Maria Alejandra Tuttle LPN Please call patient and let her know that UA was normal. No signs of hematuria or blood in urine. This has resolved with antibiotic. Christina Valenzuela APRN.TOOL HONING MACHINE SET UP OPERATOR documented in this encounter [facility] 12-27-2022 History of Present illness Narrative Chief Complaint Patient presents with: sleep and weight issues HPI Nadja Chaudhari is a 72 year old female who presents here today for Above Complaints. Nadja is an established patient of Dr. Quintana, DO and myself. Concerns today.. Sleep--- Known severe NEVA. Refusing to wear CPAP machine d/t discomfort. Refuses surgery intervention. Knows that weight loss will help and wants guidance on how to do so. Sleep well through the night -- only wakes up if she has to pee. No problems falling asleep or staying asleep. Weight--- Recent weight gain. Very determined to lose weight d/t co-morbidities Does report increase in stressors that have contributed to weight gain. Family moved out of town and pt feels lonely. Admits to some anxiety and depression at baseline. Unsure how to eat healthy -- eatings about 1 large meal a day currently. Does get pretty routine exercise -- does resistant band training and walking frequently. Hx of colitis -- on long dose prednisone taper frequently for flare-ups. Stopped smoking about 1 year ago --- since cessation, she has gained a lot of weight. Urgent care follow-up -- Treated for UTI on 12/06 with macrobid. Had moderate amount of blood in urine at this time. Urine culture was contaminated. Pt reports symptoms improved. Needs urine recheck to see if microscopic hematuria improved post treatment. Past medical history, appointments, medications, allergies reviewed. Previous Medical History PAST MEDICAL HISTORY Diagnosis Date Ulcerative colitis, unspecified Previous Surgical History PAST SURGICAL HISTORY Procedure Laterality Date LAMINECTOMY W/O FFD /2 VERT SEG LUMBAR Laminectomy, lumbar TONSILLECTOMY PRIMARY/SECONDARY <AGE 12 Tonsillectomy Family History FAMILY HISTORY Problem Relation Age of Onset Colon Cancer Father Colon Cancer Paternal Grandfather Cancer Unknown Patient Allergies ALLERGIES No Known Allergies Current Medications Current Outpatient Medications on File Prior to Visit Medication Sig cinnamon bark (CINNAMON ORAL) Take 2,400 mg by mouth twice daily. losartan (COZAAR) 50 mg tablet Take 1 tablet by mouth once daily. 1 daily in the evening losartan-hydroCHLOROthiazide (HYZAAR) 50-12.5 mg per tablet Take 1 tablet by mouth once daily. 1 daily in the morning [id number] (COSAMIN AVOCA, WITH BOSWELLIA,) 500-500-33.3-70 mg tab Take 1 tablet by mouth twice daily as needed. (Patient not taking: Reported on 12/27/2022) hydroCHLOROthiazide (HYDRODIURIL, ESIDRIX) 12.5 mg tablet Take 12.5 mg by mouth once daily. olmesartan (BENICAR) 40 mg tablet Take 40 mg by mouth once daily. No current facility-administered medications on file prior to visit. Social History Social History Tobacco Use Smoking status: Former Packs/day: 1.00 Types: Cigarettes Quit date: 12/2021 Years since quittin.0 Smokeless tobacco: Never Substance Use Topics Alcohol use: Yes Drug use: No REVIEW OF SYSTEMS: as above Reviewed relevant PMHx, PSHx, Social Hx, current medications and allergies. Review of Symptoms REVIEW OF SYSTEMS See HPI. All other systems are negative. EXAM: BP 118/72 (BP Site: Left Arm, BP Position: Sitting, BP Cuff Size: Large Adult) Pulse 80 Resp 16 Wt 106.1 kg (234 lb) BMI 38.99 kg/m General Appearance: Well appearing, alert, in no acute distress, well-hydrated, well nourished.. Skin: Skin color, texture, turgor normal, no suspicious rashes or lesions. Head: Normocephalic, no masses, lesions, tenderness or abnormalities. Lungs: Lungs clear to auscultation. No wheezing, rhonchi, rales.. Heart: RRR without murmur, gallop, or rubs. No ectopy. Abdomen: Normal abdominal exam, Abdomen soft, non-tender. Bowel sounds normal. No masses, organomegaly. Health Maintenance List MENINGOCOCCAL B: Consider based on risk(1 of 4 - Increased Risk) Never done BP CONTROLLED (<130/80) Never done HEPATITIS A(1 of 2 - Risk 2-dose series) Never done HEPATITIS B(1 of 3 - Risk 3-dose series) Never done ADVANCE DIRECTIVE DISCUSSION due on 05/27/2023 COLORECTAL CANCER SCREENING due on 07/03/2023 COVID-19 VACCINE(1) due on 07/03/2023 MMR(1 of 2 - Risk 2-dose series) due on 12/28/2023 SHINGRIX VACCINE(1 of 2) due on 12/28/2023 PNEUMOCOCCAL: 65+(1 - PCV) due on 12/28/2023 INFLUENZA(1) due on 01/26/2023 MAMMOGRAM due on 05/11/2023 ANNUAL PCP TEAM CHRONIC DISEASE VISIT due on 11/15/2023 DIABETES SCREEN due on 11/14/2025 LIPID SCREEN due on 07/03/2027 DTAP,TDAP,TD(2 - Td or Tdap) due on 01/24/2028 BONE DENSITY Completed DEPRESSION ASSESSMENT Completed HEPATITIS C SCREENING Discontinued ASSESSMENT/PLAN: 1. Obesity, Class II, BMI 35-39.9 - ICD9: 278.00, ICD10: E66.9 (primary diagnosis) Weight increasing Discussed intermittent fasting protocols. Discussed diet plan changes and routine exercise regimen. 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 Wellbutrin for anxiety/depression -- choose this medication d/t weight loss benefits. RTO in 3 months to reassess -- will determine if additional weight loss medication is needed then. - Behavioral intervention, - Pharmacological intervention, and - Eat well program - BUPROPION XL 150 MG TAB - CONSULT TO NUTRITION THERAPY 2. NEVA (obstructive sleep apnea) - ICD9: 327.23, ICD10: G47.33 Encouraged CPAP -- pt refused. Discussed referral to sleep medicine -- pt not interested in surgical intervention. Aiming to lose weight to help improve. - CONSULT TO NUTRITION THERAPY 3. Microscopic hematuria - ICD9: 599.72, ICD10: R31.29 Recheck UA and compare to UA done 3 weeks ago when dx with possible UTI which showed moderate microscopic hematuria. If hematuria remains -- consider assessment with urology. - URINALYSIS, WITH MICROSCOPIC 4. Blood glucose elevated - ICD9: 790.29, ICD10: R73.9 - CONSULT TO NUTRITION THERAPY 5. Hypertension, essential - ICD9: 401.9, ICD10: I10 - Controlled - Continue current medications - Recommend home blood pressure monitoring, to bring results to next visit - Encouraged sodium restriction, DASH or Mediterranean diet - Recommend regular aerobic exercise - Discussed need for and benefit of weight loss. BMI 38.99 kg/(m^2) - CONSULT TO NUTRITION THERAPY 6. Ulcerative colitis without complications, unspecified location (HCC) - ICD9: 556.9, ICD10: K51.90 Hoping school laboratory technician can help improve diet to decrease inflammation in order to decrease flare-ups and the frequent need for prednisone. - CONSULT TO NUTRITION THERAPY 7. Chronic kidney disease, stage 2 (mild) - ICD9: 585.2, ICD10: N18.2 - CONSULT TO NUTRITION THERAPY 8. Anxiety and depression - ICD9: 300.00, 311, ICD10: F41.9, F32.A Start wellbutrin 150 mg daily. RTO in 6 weeks if no improvement. Choose wellbutrin d/t weight loss benefits compared to other anti-depressants. Wellbutrin will also aid in smoking cessation habits. - BUPROPION XL 150 MG TAB RTO in 3 months, sooner if needed. Prescription instructions reviewed with patient as applicable. Potential red flag symptoms discussed with the patient. Reviewed appropriate action plan to take if red flag symptoms occur. Patient agreeable to treatment plan. Christina Vega APRN.TOOL HONING MACHINE SET UP OPERATOR [address] [place] [address] documented in this encounter [facility] 12-10-2022 Miscellaneous Notes Pt was notified of the results. Pt verbalized understanding. Miranda eZpeda MA Phone call placed brief message to contact a nurse to review results. Antonella Campbell LPN Urine culture did not look like a clean sample so it did not show a clear infection. Finish antibiotic and follow up with primary care as scheduled in a few weeks. Urine should be rechecked for blood then. documented in this encounter [facility] 11-29-2022 Miscellaneous Notes Patient notified and verbalized understanding. Meera Khan MA Tetanus up to date. If wound is shallow, would recommend she treat with triple abx ointment BID to TID over the next few days. If deeper or if it does no appear clean now, would recommend f/u in EC. Pt reports she scraped her left little finger on an exposed drywall screw or staple - she is not sure - in her bathroom about 1/2 hr ago. States it was bleeding but has stopped. Pt doesn't feel it needs sutured but was calling to ask her last tetanus date. Pt had a Tdap 01/23/2018. Pt cleaned with soap & water then applied alcohol. Please advise if pt needs anything else. Sunni De La Rosa LPN documented in this encounter [facility] 11-20-2022 History of Present illness Narrative Episode Visit Count: 7 Therapist That Will Accept/Oversee The Plan Of Care: Tina Epps Start of Care Date: 10/24/22 Onset Date: 10/24/20 Plan of Care Certification Date: 11/15/22 Next Certification Due Date: 12/20/22 REHABILITATION AND SPORTS THERAPY PHYSICAL THERAPY DISCONTINUANCE OF CARE PLAN OF CARE UPDATE: Assessment: Nadja Chaudhari is discontinued from Physical Therapy services due to Patient/Clinician mutual decision to discontinue current plan of care.. Patient was seen for 7 visits from Start of Care Date: 10/24/22 to 11/20/2022 and treatment included: Therapeutic exercise, Neuromuscular re-education, and Self-retirement management. Goals for Episode of Care: created on 10/24/22 through 12/05/22 Goals updated on 11/15/2022 through 12/20/22 Goals updated on 11/20/2022. Independent in home exercises. -- MET Patient will decrease pain rating by 2 points to meet minimal clinical important difference for numeric pain rating scale. -- MET Restore pain-free lumbar ROM to minimal to no limitation extension to allow for transitions, amb, and stnading without increased symptoms -- PARTIALLY MET Stand / Walk 30 min or greater without increased pain/symptoms.-- PARTIALLY MET, she could walk 20 min on the treadmill last night without increased symptoms Sleep through night without pain/symptoms. -- MET Patient will be able to tolerate functional activities for 2-3 hours without increased symptoms. -- PARTIALLY MET Patient Goals: not have the constant hurting in my legs. -- MET SUBJECTIVE: Patient Reason for Visit: About the same, I still hurt. She has not yet did her HEP to reduce symptoms because she does not want to over do it. pt. plans on seeing pain management. She would like to dc PT today.. Pain: Pain Pain Level: 6 Pain Location: Low Back/Lumbar Spine - Right Pain Level 2: 6 Pain Location 2: Leg - Right Description 2: Radiating Post Treatment Pain Post Treatment Pain Level: 0 Post Treatment Pain Location: Low Back/Lumbar Spine - Left Post Treatment Pain Score 2: 4/10 Post Treatment Pain Location 2: Leg - Right PROMIS Scales Higher is Better 10/24/2022 Phys Func - Score 41 (mild dysfunction) Phys Func - Percentile 18 % Self-Eff Symptom - Score 39 (Low) Self-Eff Symptom - Percentile 14 % T-scores: mean of general population = 50. 5 points is clinically meaningfully difference Percentiles provide an indication of how the patient's score ranks in relation to the general population. Higher percentile rankings indicate better function/quality of life. 50th percentile is the average of the general population and indicates half of respondents had a worse score. OBJECTIVE MEASURES WITH LEVEL OF FUNCTION: Lumbar Spine AROM Lumbar Flexion: Normal Lumbar Extension: Minimal limitation Lumbar R Side [place]: Normal Lumbar L Side [place]: Normal Lumbar R Side-Bend: Normal Lumbar L Side-Bend: Minimal limitation Lumbar R Rotation: Normal Lumbar L Rotation: Normal TREATMENT: Therapeutic Exercise: 1: supine KTC stretch 3x30 sec each side 2: lumbar flexion, extension, side flexion each side, SG each side rotation each side 1x each 3: supine pelvic rotations 2x20 4: seated TA activation 5x10 5: SciFit stepper x5 min, level 2, seat 12, no resistance, 1:1 throughout, subjective collected 6: seated lumbar flexion 2x10 7: seated BLE ankle pumps 1x20 Skilled Intervention: Patient was educated in proper exercise technique and purpose for exercises. Reviewed and educated patient on additions/changes for home exercise program as above (*). Correct performance of therapeutic exercises was facilitated with verbal, visual, and tactile cuing. Additional time necessary for assessing progress toward goals due to discharge today. Educated patient on rationale for performing exercises in regards to ROM and function . Patient education as noted. Billing Therapeutic Exercise Treatment Minutes: 38 Total Treatment Time Minutes (timed/untimed): 38 Tina Epps PT documented in this encounter [facility] 11-15-2022 History of Present illness Narrative Episode Visit Count: 6 Therapist That Will Accept/Oversee The Plan Of Care: Tina Epps Start of Care Date: 10/24/22 Onset Date: 10/24/20 Plan of Care Certification Date: 11/15/22 Next Certification Due Date: 12/20/22 REHABILITATION AND SPORTS THERAPY PHYSICAL THERAPY PROGRESS REPORT PLAN OF CARE UPDATE: Assessment: Nadja Chaudhari demonstrates improvements in bending. She has progressed toward goals. Patient continues to present with impairments in gait, independence in exercise, and strength that interfere with bending, walking, stair negotiation (basement steps continue to bother her) . Current prognosis is Good due to: positive past response to therapy . She will benefit from continued skilled therapy services to meet the updated goals for this plan of care as noted below. Goals for Episode of Care: created on 10/24/22 through 12/05/22 Goals updated on 11/15/2022 through 12/20/22 Independent in home exercises. -- MET Patient will decrease pain rating by 2 points to meet minimal clinical important difference for numeric pain rating scale. -- MET Restore pain-free lumbar ROM to minimal to no limitation extension to allow for transitions, amb, and stnading without increased symptoms -- PROGRESSING Stand / Walk 30 min or greater without increased pain/symptoms.-- PARTIALLY MET, she could walk 20 min on the treadmill last night without increased symptoms Sleep through night without pain/symptoms. -- MET Patient will be able to tolerate functional activities for 2-3 hours without increased symptoms. -- PROGRESSING Patient Goals: not have the constant hurting in my legs. -- MET Patient Goals: not have the constant hurting in my legs. Planned Interventions, Frequency, and Duration: 2x/week, 6 weeks Total Number of Visits Planned: 12 Patient to be seen for Therapeutic exercise (74287), Neuromuscular re-education (83722), Manual therapy (53997), Therapeutic activities (30506), Self-retirement management (78836), Gait Training (58104), Patient/Family/Caregiver Education PLAN FOR NEXT VISIT: Continue PT 3 additional visits, Determine continued PT 11/22/22. Assess symptom response to standing/walking 3-4 hours for errands/ADLs. SUBJECTIVE: Patient Reason for Visit: She has been avoiding walking in stores as often. She notices reduced pain. Today her legs do not hurt too bad. The HEP is helping some. Doesn't bother her to walk today. She agrees to continue PT for a few more weeks.. Patient Goals: not have the constant hurting in my legs. Functional Limitations: bending, walking, stair negotiation (basement steps continue to bother her) Pain: Pain Pain Level: 0 Pain Location: Low Back/Lumbar Spine - Right Pain Location 2: Thigh - Left, Thigh - Right (quadriceps) Description 2: Sore Post Treatment Pain Post Treatment Pain Level: 0 Post Treatment Pain Location: Low Back/Lumbar Spine - Left Post Treatment Pain Score 2: 0/10 Post Treatment Pain Location 2: Leg - Right PROMIS Scales Higher is Better 10/24/2022 Phys Func - Score 41 (mild dysfunction) Phys Func - Percentile 18 % Self-Eff Symptom - Score 39 (Low) Self-Eff Symptom - Percentile 14 % T-scores: mean of general population = 50. 5 points is clinically meaningfully difference Percentiles provide an indication of how the patient's score ranks in relation to the general population. Higher percentile rankings indicate better function/quality of life. 50th percentile is the average of the general population and indicates half of respondents had a worse score. OBJECTIVE MEASURES WITH LEVEL OF FUNCTION: Lumbar Spine AROM Lumbar Flexion: Normal Lumbar Extension: Minimal limitation Lumbar R Side-Bend: Moderate limitation Lumbar L Side-Bend: Moderate limitation Lumbar R Rotation: Normal Lumbar L Rotation: Normal TREATMENT: Therapeutic Exercise: 1: supine KTC stretch 3x30 sec each side 3: supine pelvic rotations 2x20 4: seated TA activation 2x10 5: seated TA with alt arms 2x10 B 6: seated TA with alt marching 2x10 B (verbal cues to avoid trunk sway) 7: Seated TA activation with push into 65 cm physioball x 5 seconds, 2x10 8: Seated lumbar flexion with 85 cm physioball 2x10 Skilled Intervention: Patient was educated in proper exercise technique and purpose for exercises. Reviewed and educated patient on additions/changes for home exercise program as above (*). Skilled judgment was provided in selection of appropriate interventions. Additional time necessary for assessing progress toward goals due to PN today. Educated patient on rationale for performing exercises in regards to decreasing fatigue , including balance, increase ease of ADL, and ROM and function . Patient education as noted. Billing Therapeutic Exercise Treatment Minutes: 38 Total Treatment Time Minutes (timed/untimed): 38 Tina Epps PT documented in this encounter [facility] 11-15-2022 Miscellaneous Notes PATIENT NOTIFIED OF SAME. Appointment scheduled to discuss on 12/11/22. Message left for patient to call office back and ask for a FM triage nurse for update. Barbara Cowart LPN ----- Message from Andres Srinivasan MD sent at 11/15/2022 8:04 AM EDT ----- Normal labs including normal iron levels. Fatigue may be related to untreated NEVA. Recommend f/u with PCP to discuss treatment options for NEVA. Recommend sleeping on her side at night, weight loss, and avoidance of sedatives to help with this condition. documented in this encounter [facility] 11-14-2022 History of Present illness Narrative Chief Complaint Patient presents with: Fatigue: Patient reports increased fatigue over at least last 2 weeks- concerned iron may be low again HPI Nadja Chaudhari is a 72 year old female who presents here today for Above Complaints.. Patient c/o increased fatigue for at least 2 weeks. Worried that she may have low iron because she is wanting to drink more iced tea and was low iron before when this happened. Falling asleep earlier in the evening while watching TV, but does not need to nap during the day. Denies bleeding/bruising symptoms, urinary symptoms, nausea, vomiting, diarrhea, fever/chills. Notes that she does not sleep well at night due to chronic back pain, but this has been present for years. Getting 6-7 hours of sleep each night. Reports history of NEVA and is not on CPAP or Bipap. States she could not tolerate the machine and does not want referral to sleep med now. Past medical history, appointments, medications, allergies reviewed. Previous Medical History PAST MEDICAL HISTORY Diagnosis Date Ulcerative colitis, unspecified Previous Surgical History PAST SURGICAL HISTORY Procedure Laterality Date LAMINECTOMY W/O FFD 05/29 VERT SEG LUMBAR Laminectomy, lumbar TONSILLECTOMY PRIMARY/SECONDARY <AGE 12 Tonsillectomy Family History FAMILY HISTORY Problem Relation Age of Onset Colon Cancer Father Colon Cancer Paternal Grandfather Cancer Unknown Patient Allergies ALLERGIES No Known Allergies Current Medications Current Outpatient Medications on File Prior to Visit Medication Sig cinnamon bark (CINNAMON ORAL) Take 2,400 mg by mouth twice daily. losartan (COZAAR) 50 mg tablet Take 1 tablet by mouth once daily. 1 daily in the evening losartan-hydroCHLOROthiazide (HYZAAR) 50-12.5 mg per tablet Take 1 tablet by mouth once daily. 1 daily in the morning [id number] (COSAMIN AVOCA, WITH BOSWELLIA,) 500-500-33.3-70 mg tab Take 1 tablet by mouth twice daily as needed. hydroCHLOROthiazide (HYDRODIURIL, ESIDRIX) 12.5 mg tablet Take 12.5 mg by mouth once daily. olmesartan (BENICAR) 40 mg tablet Take 40 mg by mouth once daily. No current facility-administered medications on file prior to visit. Social History Social History Tobacco Use Smoking status: Former Packs/day: 1.00 Types: Cigarettes Quit date: 12/2021 Years since quittin.8 Smokeless tobacco: Never Substance Use Topics Alcohol use: Yes Drug use: No Review of Symptoms REVIEW OF SYSTEMS GENERAL: No weight loss, malaise or fevers RESPIRATORY: Negative for cough, hemoptysis, wheezing, COPD, dyspnea or shortness of breath CARDIOVASCULAR: Negative for chest pain, leg swelling, hypertension, CHF or palpitations GI: No nausea, vomiting, or diarrhea SKIN: Negative for lesions, rash, and itching EXAM: BP 126/82 Pulse 79 Resp 18 Wt 105.5 kg (232 lb 9.6 oz) SpO2 97% BMI 38.75 kg/m General Appearance: Well appearing, alert, in no acute distress, well-hydrated, well nourished.. Skin: Skin color, texture, turgor normal, no suspicious rashes or lesions. Lungs: Lungs clear to auscultation. No wheezing, rhonchi, rales.. Heart: RRR without murmur, gallop, or rubs. No ectopy. Abdomen: Normal abdominal exam, Abdomen soft, non-tender. Bowel sounds normal. No masses, organomegaly. Extremities: No deformities, edema, skin discoloration, clubbing or cyanosis. Good capillary refill. . Health Maintenance List HEPATITIS A(1 of 2 - Risk 2-dose series) Never done PNEUMOCOCCAL: 65+(1 - PCV) Never done MENINGOCOCCAL B: Consider based on risk(1 of 4 - Increased Risk Bexsero 2-dose series) Never done MMR(1 of 2 - Risk 2-dose series) Never done BP CONTROLLED (<130/80) Never done SHINGRIX VACCINE(1 of 2) Never done HEPATITIS B(1 of 3 - Risk 3-dose series) Never done ADVANCE DIRECTIVE DISCUSSION due on 05/27/2023 COLORECTAL CANCER SCREENING due on 07/03/2023 COVID-19 VACCINE(1) due on 07/03/2023 MAMMOGRAM due on 05/11/2023 ANNUAL PCP TEAM CHRONIC DISEASE VISIT due on 10/11/2023 DIABETES SCREEN due on 07/03/2025 LIPID SCREEN due on 07/03/2027 DTAP,TDAP,TD(2 - Td or Tdap) due on 01/24/2028 BONE DENSITY Completed INFLUENZA Completed DEPRESSION ASSESSMENT Completed HEPATITIS C SCREENING Discontinued Data reviewed Component Latest Ref Rng & Units 07/03/2022 08/23/2022 WBC 3.70 - 11.00 k/uL 5.95 RBC 3.90 - 5.20 m/uL 4.66 Hemoglobin 11.5 - 15.5 g/dL 13.5 Hematocrit 36.0 - 46.0 % 42.3 MCV 80.0 - 100.0 fL 90.8 MCH 26.0 - 34.0 pg 29.0 MCHC 30.5 - 36.0 g/dL 31.9 RDW-CV 11.5 - 15.0 % 13.8 Platelet Count 150 - 400 k/uL 233 MPV 9.0 - 12.7 fL 11.2 Neut% % 46.8 Abs Neut (ANC) 1.45 - 7.50 k/uL 2.79 Lymph% % 42.9 Abs Lymph 1.00 - 4.00 k/uL 2.55 [place]% % 7.6 Abs [place] <0.87 k/uL 0.45 Eosin% % 2.2 Abs Eosin <0.46 k/uL 0.13 Baso% % 0.5 Abs Baso <0.11 k/uL 0.03 Immature Gran % % 0.0 IMMATURE GRANS (ABS) <0.10 k/uL <0.03 NRBC /100 WBC 0.0 Absolute nRBC <0.01 k/uL <0.01 DTYPE Auto Protein, Total 6.3 - 8.0 g/dL 6.9 Albumin 3.9 - 4.9 g/dL 4.2 Calcium 8.5 - 10.2 mg/dL 9.5 Bilirubin, Total 0.2 - 1.3 mg/dL 0.5 Alkaline Phosphatase 34 - 123 U/L 82 AST 13 - 35 U/L 20 ALT 7 - 38 U/L 17 Glucose 74 - 99 mg/dL 94 BUN 7 - 21 mg/dL 18 Creatinine 0.58 - 0.96 mg/dL 0.81 Sodium 136 - 144 mmol/L 138 Potassium 3.7 - 5.1 mmol/L 4.2 Chloride 97 - 105 mmol/L 104 CO2 22 - 30 mmol/L 23 Anion Gap 9 - 18 mmol/L 11 eGFR >=60 mL/min/1.73m 77 Cholesterol, Total <200 mg/dL 198 Triglyceride <150 mg/dL 106 HDL Cholesterol >39 mg/dL 65 Non HDL Cholesterol <130 mg/dL 133 (H) Fasting Time hrs 2 VLDL Cholesterol <30 mg/dL 21 TC:HDL Ratio <5.10 3.05 LDL Cholesterol <100 mg/dL 112 (H) LDL:HDL Ratio <2.54 1.72 Hemoglobin A1C 4.3 - 5.6 % 5.5 Estimated Average Glucose mg/dL 111 CCP Antibody IgG Qualitative Negative Negative CCP Antibody, IgG <20 Units <15 TSH 0.270 - 4.200 mIU/L 1.940 CK 42 - 196 U/L 141 Magnesium 1.7 - 2.3 mg/dL 2.3 CRP <0.9 mg/dL 0.7 JEFE by EIA, Qual Negative Negative Rheumatoid Factor <16 IU/mL <10 ASSESSMENT/PLAN: 1. Fatigue, unspecified type - ICD9: 780.79, ICD10: R53.83 (primary diagnosis) Obtain labs as ordered for evaluation of anemia, electrolyte abnormality, thyroid disease, vitamin D deficiency. If normal, would recommend she f/u with PCP for further discussion of uncontrolled NEVA and treatment options. - IRON + TIBC - FERRITIN BLD - CBC + DIFF - COMP METABOLIC PANEL - TSH BLD 2. History of iron deficiency - ICD9: V12.3, ICD10: Z86.39 See above. - IRON + TIBC - FERRITIN BLD Andres Srinivasan MD documented in this encounter [facility] 11-13-2022 History of Present illness Narrative Episode Visit Count: 5 Therapist That Will Accept/Oversee The Plan Of Care: Tina Epps Start of Care Date: 10/24/22 Onset Date: 10/24/20 Plan of Care Certification Date: 10/24/22 Next Certification Due Date: 11/28/22 Patient Identified by Name and Date of : Yes REHABILITATION AND SPORTS THERAPY PHYSICAL THERAPY TREATMENT NOTE ASSESSMENT: Nadja Chaudhari tolerated the session with fatigue and expected muscle soreness. She demonstrated improvements in technique with hook lying TA activation. The patient will continue to benefit from ongoing skilled physical therapy to progress toward set goals. PLAN FOR NEXT VISIT: Continue with TA activation in hooklying, progresssing to seated as tolerated. SUBJECTIVE: Patient Reason for Visit: Pt reports that her pain is pretty much the same. Pt states that she sat more yesterday, but not as painful. Pt states pain is still waking her up at night, can only sleep on her side for limited amount of time. Walking is still painful. Pain: Pain Pain Level: 0 Pain Location: Low Back/Lumbar Spine - Right Pain Level 2: (no vlaue given) Pain Location 2: Leg - Right Description 2: Aching Post Treatment Pain Post Treatment Pain Level: 0 Post Treatment Pain Location: Low Back/Lumbar Spine - Left Post Treatment Pain Score 2: No Change Post Treatment Pain Location 2: Leg - Right OBJECTIVE MEASURES WITH LEVEL OF FUNCTION: Pt able to properly perform hook lying TA without use of biofeedback today. TREATMENT: Therapeutic Exercise: 1: SciFit stepper x5 min, level 2, seat 12, no resistance, 1:1 throughout, subjective collected 2: supine S KTC 3x30 sec each side 3: supine pelvic rotations 2x20 4: hook lying TA 2x10 5: hook lying TA with alt arms 2x10 B 6: hook lying TA with alt marching 2x10 B 7: Seated TA activation with push into physioball 2x10 8: Seated lumbar flexion with 85 cm physioball 2x10 Skilled Intervention: Patient was educated in proper exercise technique and purpose for exercises. Skilled judgment was provided in selection of appropriate interventions. Correct performance of therapeutic exercises was facilitated with verbal and visual cuing. Billing Therapeutic Exercise Treatment Minutes: 38 Total Treatment Time Minutes (timed/untimed): 38 MORRO Sequeira PT documented in this encounter [facility] 11-08-2022 History of Present illness Narrative Episode Visit Count: 4 Therapist That Will Accept/Oversee The Plan Of Care: Tina Epps Start of Care Date: 10/24/22 Onset Date: 10/24/20 Plan of Care Certification Date: 10/24/22 Next Certification Due Date: 11/28/22 REHABILITATION AND SPORTS THERAPY PHYSICAL THERAPY TREATMENT NOTE ASSESSMENT: Nadja Chaudhari tolerated the session with decreased symptoms. She demonstrated no difficulty with TA activation using biofeedback, but had difficulty when UE and LE alt raises were added. The patient will continue to benefit from ongoing skilled physical therapy to progress toward set goals. PLAN FOR NEXT VISIT: Continue TA hook lying series SUBJECTIVE: Patient Reason for Visit: Maybe a little bit better. A little bit less pain with ambulation. Patient Goals: not have the constant hurting in my legs. Pain: Pain Pain Level: 0 Pain Location: Low Back/Lumbar Spine - Right Pain Level 2: 6 Pain Location 2: Leg - Right Description 2: Aching Post Treatment Pain Post Treatment Pain Level: 0 Post Treatment Pain Location: Low Back/Lumbar Spine - Left Post Treatment Pain Score 2: 0/10 Post Treatment Pain Location 2: Leg - Right OBJECTIVE MEASURES WITH LEVEL OF FUNCTION: TREATMENT: Therapeutic Exercise: 1: SciFit stepper x5 min, level 2, seat 12, no resistance, 1:1 throughout, subjective collected 2: Seated lumbar flexion with 85 cm physioball 2x10 3: supine pelvic rotations 2x20 4: *Seated TA activation 2x10 with 2-3 second holds, twice daily 5: supine S KTC 3x30 sec each side -- improved R anterior hip pain with using a strap to assist hip flexion AROM Skilled Intervention: Patient was educated in proper exercise technique and purpose for exercises. Skilled judgment was provided in selection of appropriate interventions. Provided written instruction for home exercise program to facilitate proper performance and compliance. Educated patient on rationale for performing exercises in regards to decreasing fatigue , increase ease of ADL, and ROM and function . Patient education as noted. Neuromuscular Re-Education: 1: hook lying TA using biofeedback 20 mmHg to 45 mmHg 2x10 2: *hook lying TA using biofeedback 20 mmHg to 45 mmHg 2x15, 10 sec hold 3: *hook lying TA using biofeedback 20 mmHg to 45 mmHg 2x10 alt UE raises 4: *hook lying TA using biofeedback 20 mmHg to 45 mmHg 2x10 *alt LE slide outs 5: *HEP 1x/day Skilled Intervention: Skilled judgment used to assess appropriate program for balance and coordination activity. Education in proprioceptive/kinesthetic awareness during hook lying TA using biofeedback. Reviewed and educated patient on additions/changes for home program as noted above with an (*). Patient education as noted. Billing Therapeutic Exercise Treatment Minutes: 15 Neuromuscular Re-Education Treatment Minutes: 25 Total Treatment Time Minutes (timed/untimed): 40 Tina Epps PT documented in this encounter [facility] 11-01-2022 History of Present illness Narrative Episode Visit Count: 2 Therapist That Will Accept/Oversee The Plan Of Care: Tina Epps Start of Care Date: 10/24/22 Onset Date: 10/24/20 Plan of Care Certification Date: 10/24/22 Next Certification Due Date: 11/28/22 REHABILITATION AND SPORTS THERAPY PHYSICAL THERAPY TREATMENT NOTE ASSESSMENT: Nadja Chaudhari tolerated the session with increased symptoms. She demonstrated improvements in centralization of BLE symptoms following repeated lumbar flexion while seated. She does complain of an intense stretch felt in the quads with B and single KTC stretch, this was modified by reducing the knee flexion ROM. The patient will continue to benefit from ongoing skilled physical therapy to progress toward set goals. PLAN FOR NEXT VISIT: TA stabilization in seated or hook lying positions SUBJECTIVE: Patient Reason for Visit: Visit began 15 min early due to pt. early arrival. Pt. reports that the HEP makes her legs sore. She was not able to complete 2 sets. She denies back pain, but her legs are very sore. She discontinued taking her cortisone 3 days prior to her first PT visit. She has been applying ice to the low back, but this only seems like it helps some. Sitting in the recliner with her legs up makes the legs feel better. Pain: Pain Pain Level: 0 Pain Location: Low Back/Lumbar Spine - Left Frequency: Standing, Walking, With movement Pain Level 2: 10 Pain Location 2: Leg - Left, Leg - Right Description 2: Aching, Sore Post Treatment Pain Post Treatment Pain Level: 0 Post Treatment Pain Location: Low Back/Lumbar Spine - Left Post Treatment Pain Description: Aching Post Treatment Pain Score 2: (Not as bad as it was.) Post Treatment Pain Location 2: Leg - Left, Leg - Right Post Treatment Pain Description 2: Aching OBJECTIVE MEASURES WITH LEVEL OF FUNCTION: TREATMENT: Therapeutic Exercise: 1: SciFit stepper x5 min, seat 12, no resistance, 1:1 throughout, subjective collected 2: seated lumbar flexion 2x10 (symptoms abolished in the BLE and low back after this) 3: seated lumbar flexion with 85 cm physioball 2x10 4: *supine S KTC 2x30 sec each side (optional on HEP) (cues to reduce knee flexion PROM to avoid quadriceps stretch intensity) 5: *supine B KTC stretch 1x30 sec (optional on HEP) 6: supine pelvic rotations 2x10 Skilled Intervention: Reviewed and educated patient on additions/changes for home exercise program as above (*). Reviewed and educated patient on additions/changes for home exercise program. Skilled judgment was provided in selection of appropriate interventions. Correct performance of therapeutic exercises was facilitated with verbal, visual, and tactile cuing. Educated patient on rationale for performing exercises in regards to decreasing fatigue , increase ease of ADL, and ROM and function . Patient education as noted. Self-Custodial Management: 1: *discussed directional preference and centralization of symptoms in the BLEs -- this consistently occurs with flexion based exercises within the evaluation and todays treatment 2: *pt. may use a kitchen towel and a chair to replicate the repeated lumbar flexion using physioball 3: *encouraged pt. to use the seated lumbar flexion exercise to self manage her symptoms, and to take frequent seated breaks during prolonged standing and walking 4: *continue all items on HEP given at initial visit, S KTC and B KTC is optional. 5: *discussed lumbar spine biomechanics, and the reasoning for the repeated lumbar flexion resulting in symptom relief. Skilled Intervention: Skilled judgment in the selection of proper modification for activity of daily living/home management based on clinical presentation, deficits, and needs. Educated the patient regarding recommendations and provided written instruction to facilitate compliance. Provided written instruction for activities of daily living techniques to facilitate proper performance and compliance. Activity progression based on professional judgement. Reviewed and educated patient on additions/changes for home program as noted above with an (*). Correct performance of home program was facilitated with verbal and visual cueing. Billing Therapeutic Exercise Treatment Minutes: 30 Self-Care/Home Management Treatment Minutes: 10 Total Treatment Time Minutes (timed/untimed): 40 Tina Epps PT documented in this encounter [facility] 10-24-2022 History of Present illness Narrative Episode Visit Count: 1 Therapist That Will Accept/Oversee The Plan Of Care: Tina Epps Start of Care Date: 10/24/22 Onset Date: 10/24/20 Plan of Care Certification Date: 10/24/22 Next Certification Due Date: 11/28/22 Patient Identified by Name and Date of : Yes REHABILITATION AND SPORTS THERAPY PHYSICAL THERAPY EVALUATION PLAN OF CARE: Assessment: Nadja Chaudhari presents with diagnosis of spinal stenosis of lumbar region, unspecified whether neurogenic claudication present that interferes with bending, walking, stair negotiation . She presents with impairments in ADL's, independence in exercise, joint mobility, overall function, patient reported outcome measures, posture, range of motion, strength, and symptom management. PROMIS (Patient-Reported Outcomes Measurement Information System) scores were reviewed and physical function domain and self efficacy domain identified as a rehabilitation concern. Prognosis for therapy is Good due to: good support system/ coping skills, positive past response to therapy, current objective clinical presentation, good overall health status . She will benefit from skilled therapy services to meet the goals established for this plan of care as noted below. Classification Low Back Pain Subgroup Classification: Specific exercise subgroup: recommended visits 8. Specific Exercies Subgroup Classification based on: directional preference Goals for Episode of Care: created on 10/24/22 through 12/05/22 Independent in home exercises. Patient will decrease pain rating by 2 points to meet minimal clinical important difference for numeric pain rating scale. Restore pain-free lumbar ROM to minimal to no limitation extension to allow for transitions, amb, and stnading without increased symptoms Stand / Walk 30 min or greater without increased pain/symptoms. Sleep through night without pain/symptoms. Patient will be able to tolerate functional activities for 2-3 hours without increased symptoms. Patient Goals: not have the constant hurting in my legs. Planned Interventions, Frequency, and Duration: Current Frequency: 2x/week Duration: 6 weeks Total Number of Visits Planned: 12 Planned Treatment Interventions: Therapeutic exercise (27402), Neuromuscular re-education (92161), Manual therapy (78321), Therapeutic activities (54845), Self-retirement management (65404), Gait Training (55965), Patient/Family/Caregiver Education PLAN FOR NEXT VISIT: Assess symptom response to lumbar flexion directional preference exercises Patient demonstrates good understanding of plan of care and treatment. The above goals and plan of care were discussed and agreed upon by patient/family. SUBJECTIVE: Nadja Chaudhari is a 72 year old female seen today for for chronic LBP (L>R) with radiating symptoms to the BLE to the B knees. Pt. has been seen by a spine surgeon who advised pt. to have a spinal fusion 2 years ago. Pt. bought an inversion table and reports this was helpful back in 1999. Steriod pills have been effective for her symtoms, she just finished the pack. Patient Goals: not have the constant hurting in my legs. Functional Limitations: bending, walking, stair negotiation Prior Level of Function: Independent without limitations Relevant History Hobbies / Interests: gardening Intake Information: Prescription present Previous Treatment: Surgery , Steroids (pt. can not have ibuprofen or aspirin per chart, tylenol is not effective) Falls Interview: No positive findings with falls interview Red Flags Vertebral Fracture Red Flags: Female, Age >70 Vertebral Fracture Clinical Reasoning: Proceed with caution due to the above (1-2) risk factors Abdominal Aortic Aneurysm Red Flags: Age >60 Abdominal Aortic Aneurysm Clinical Reasoning: Proceed with caution Cancer Red Flags: Age >50 or <20 Cancer Clinical Reasoning: Proceed with caution Infection Clinical Reasoning: No identified risk factors. Cauda Equina Syndrome Clinical Reasoning: No identified risk factors. Red Flags - Cervical Cancer Red Flags: Age >50 or <20 Cancer Clinical Reasoning: Proceed with caution Infection Clinical Reasoning: No identified risk factors. Spine History Symptoms Location at Onset: Back Symptoms Since Onset: Worsening Pain is Worse Always: Standing, Walking, Bending, On the Move Pain is Better Always: Sitting Sleep Affected by Pain: Pain awakens, Pain keeps from falling asleep Pain: Pain Pain Level: 0 Pain Location: Low Back/Lumbar Spine - Left Description: Aching Frequency: Standing, Walking, With movement Additional Pain Information : Location 2 Pain Level 2: 0 Pain Location 2: Leg - Left, Leg - Right Description 2: Aching Frequency 2: Standing, Walking, With movement Post Treatment Pain Post Treatment Pain Level: 2 Post Treatment Pain Location: Low Back/Lumbar Spine - Left Post Treatment Pain Description: Aching Post Treatment Pain Score 2: 0/10 Post Treatment Pain Location 2: Leg - Left, Leg - Right Post Treatment Pain Description 2: Aching PROMIS Scales Higher is Better 10/24/2022 Phys Func - Score 41 (mild dysfunction) Phys Func - Percentile 18 % Self-Eff Symptom - Score 39 (Low) Self-Eff Symptom - Percentile 14 % T-scores: mean of general population = 50. 5 points is clinically meaningfully difference Percentiles provide an indication of how the patient's score ranks in relation to the general population. Higher percentile rankings indicate better function/quality of life. 50th percentile is the average of the general population and indicates half of respondents had a worse score. OBJECTIVE MEASURES WITH LEVEL OF FUNCTION: Sensation - Lumbar Sensation: Grossly Intact Lumbar Spine AROM Lumbar Flexion: Normal, Abolishes Lumbar Extension: Peripheralizing, Major limitation Lumbar R Side-Bend: Moderate limitation Lumbar L Side-Bend: Moderate limitation Lumbar R Rotation: Moderate limitation Lumbar L Rotation: Moderate limitataion Repeated Test Movements - Lumbar Other Lumbar Repeated Test Movements: Yes Other Repeated Test Movements - Lumbar RFISit / Symptoms During: abolishes RFISit / Symptoms After: better Gait Gait: Independent Gait Distance (feet): 50 Gait Device: None Gait Deviations: General Deviations General Deviations/Observations: Step length decreased, Lateral sway increased, Flexed trunk posture Education: Education Learning Preferences: Demonstration, Explanation, Performance, Printed Materials Barriers: None Learning/educational needs: Home exercise program, Plan of Care, Posture Education Provided: Yes, see treatment interventions for education provided Education Provided To: Patient Education Mode/Type: Demonstration, Explanation/Discussion, Literature/Printed Materials, Performance Response to Education/Teach Back: States/Identifies, Return Demonstration TREATMENT: PT Treatment Interventions: Therapeutic Exercise, Self-Custodial Management Evaluation Therapeutic Exercise: 1: *seated lumbar flexion 2x10 2: *supine B KTC stretch 3x30 sec 3: *supine S KTC stretch 3x30 sec each LE 4: *supine pelvic rotations 2x20 5: *HEP 2x/day or as needed to reduce LBP Skilled Intervention: Patient was educated in proper exercise technique and purpose for exercises. Reviewed and educated patient on additions/changes for home exercise program as above (*). Skilled judgment was provided in selection of appropriate interventions. Provided written instruction for home exercise program to facilitate proper performance and compliance. Educated patient on rationale for performing exercises in regards to decreasing fatigue , increase ease of ADL, and ROM and function . Patient education as noted. Self-Custodial Management: 1: *dicouraged use of inversion table at this time, explained that symptom response 20 years ago may not be the same now 2: *discussed directional preference determined by symptom response to Skilled Intervention: Skilled judgment in the selection of proper modification for activity of daily living/home management based on clinical presentation, deficits, and needs. Provided written instruction for activities of daily living techniques to facilitate proper performance and compliance. Reviewed patient specific diagnosis in relation to activities of daily living/home management. Activity progression based on professional judgement. Reviewed and educated patient on additions/changes for home program as noted above with an (*). Provided written instruction for home program to facilitate proper performance and compliance. Correct performance of home program was facilitated with verbal, visual, and tactile cueing. Billing * Evaluation Low Complexity: 1 Unit Therapeutic Exercise Treatment Minutes: 15 Self-Care/Home Management Treatment Minutes: 10 Total Treatment Time Minutes (timed/untimed): 45 Tina Epps PT documented in this encounter [facility] 08-25-2022 Miscellaneous Notes Patient calls and notified of results and providers instructions. Patient verbalizes understanding. Patient said she is going to think about maybe something recommended at appointment for pain and will call back if she decides to want to try anything. Nicki Farmer RN Called and left a voicemail for the Patient to call back and ask for a nurse to receive the providers message. Eleanor Ratliff RN Please inform patient that her labs are all stable Gray Quintana DO documented in this encounter [facility] 08-23-2022 History of Present illness Narrative CC: Nadja Chaudhari is a 72 year old female who presents to the office for back pain HPI: Low back pain, long standing x years. History of spinal stenosis diagnosis, also hx of lumbar disectomy and laminectomy years ago at L4/5 location of lumbar spine. Has b/l knee pain, right >left, hx of OA diagnosis and corticosteroid injection with minimal benefit. + chronic left heel/plantar tendon and heel spur symptoms, not better after 3 steroid injections in the past. 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 No fevers or chills. Symptoms of soreness and chronic aching in her lower legs and thighs. Has had normal BRISSA/PVR and US testing of legs- no hx of PAD or blood clots. No rashes. + ulcerative colitis and not on medication since concerned about SE to medication. Not able to take NSAIDs due to this concern. PAST MEDICAL HISTORY Diagnosis Date Ulcerative colitis, unspecified PAST SURGICAL HISTORY Procedure Laterality Date LAMINECTOMY W/O FFD 05/29 VERT SEG LUMBAR Laminectomy, lumbar TONSILLECTOMY PRIMARY/SECONDARY <AGE 12 Tonsillectomy Social History: Social History Tobacco Use Smoking status: Every Day Packs/day: 1.00 Types: Cigarettes Smokeless tobacco: Never Substance Use Topics Alcohol use: Yes Drug use: No FAMILY HISTORY Problem Relation Age of Onset Colon Cancer Father Colon Cancer Paternal Grandfather Cancer Unknown Current Outpatient prescriptions: losartan (COZAAR) 50 mg tablet Take 1 tablet by mouth once daily. 1 daily in the evening losartan-hydroCHLOROthiazide (HYZAAR) 50-12.5 mg per tablet Take 1 tablet by mouth once daily. 1 daily in the morning [id number] (COSAMIN AVOCA, WITH BOSWELLIA,) 500-500-33.3-70 mg tab Take 1 tablet by mouth twice daily as needed. hydroCHLOROthiazide (HYDRODIURIL, ESIDRIX) 12.5 mg tablet Take 12.5 mg by mouth once daily. olmesartan (BENICAR) 40 mg tablet Take 40 mg by mouth once daily. Allergies: ALLERGIES No Known Allergies ROS: See HPI PE: 08/23/22 1027 BP: 124/80 Pulse: 80 Resp: 20 Temp: 36.7 C (98.1 F) TempSrc: Left Tympanic Weight: 106.1 kg (234 lb) Gen: A&O, NAD, non-toxic appearing, Pleasant, cooperative HEENT: NT/AC, PERRLA, EOMs intact b/l, nares clear and patent b/l, pharynx without erythema, exudate or lesions. Uvula midline Neck: supple, No cervical LAD, no thyromegaly, no carotid bruits CV: RRR, normal S1 and S2, no murmurs, no gallops, no rubs, Pulses 2+ and symmetric in UE and LE b/l Lungs: normal respiratory effort, CTA b/l, no wheezing or rhonchi or rales Abd: soft, obese, NT, ND, +BS, no hepatosplenomegaly MS: reduced ROM lumbar spine Neuro: CN II-XII intact b/l, strength 4.5-5/5 b/l LE, DTRs 2/4 UE and LE, sensation intact. No edema, normal pulses Skin: warm, dry, intact, No rashes or lesions on exposed skin. ASSESSMENT/PLAN: 1. Muscle pain - ICD9: 729.1, ICD10: M79.10 (primary diagnosis) Recheck labs as ordered, likely multifactorial, f/u with spine surgeon as interested. Consider accupuncture vs. TENS unit use. Needs to lose weight by increasing protein intake and avoiding late night eating as she is doing now. Consider starting on cymbalta vs. Lyrica vs. Gabapentin? She wants to research med before trying one - CK CREATINE KINASE - MAGNESIUM BLD - C-REACTIVE PROTEIN (CRP) - JEFE BLOOD - RHEUMATOID FACTOR BL - CCP ANTIBODY IGG 2. Myalgia - ICD9: 729.1, ICD10: M79.10 Recheck labs as ordered, likely multifactorial, f/u with spine surgeon as interested. Consider accupuncture vs. TENS unit use. Needs to lose weight by increasing protein intake and avoiding late night eating as she is doing now. Consider starting on cymbalta vs. Lyrica vs. Gabapentin? She wants to research med before trying one - CK CREATINE KINASE - MAGNESIUM BLD - C-REACTIVE PROTEIN (CRP) - JEFE BLOOD - RHEUMATOID FACTOR BL - CCP ANTIBODY IGG 3. Multiple joint pain - ICD9: 719.49, ICD10: M25.50 Recheck labs as ordered, likely multifactorial, f/u with spine surgeon as interested. Consider accupuncture vs. TENS unit use. Needs to lose weight by increasing protein intake and avoiding late night eating as she is doing now. Consider starting on cymbalta vs. Lyrica vs. Gabapentin? She wants to research med before trying one - CK CREATINE KINASE - MAGNESIUM BLD - C-REACTIVE PROTEIN (CRP) - JEFE BLOOD - RHEUMATOID FACTOR BL - CCP ANTIBODY IGG 4. Hypertension, essential - ICD9: 401.9, ICD10: I10 - good control - Continue current medication(s) - Encouraged dietary sodium restriction/DASH diet - Recommended regular aerobic exercise. - Recommend home blood pressure monitoring, to bring results in on next visit - Discussed need and benefit for weight loss. - Goal of BP <130/80 - LOSARTAN 50 MG TABLET - LOSARTAN 50 MG-HYDROCHLOROTHIAZIDE 12.5 MG TABLET 5. Ulcerative colitis without complications, unspecified location (HCC) - ICD9: 556.9, ICD10: K51.90 Avoid NSAIDs for pain Gray Quintana DO To ER if develops chest pain, shortness of breath, or severe worsening of symptoms. Discussed risks, benefits, alternatives, and potential side effects of medications. Patient expressed understanding and agreed with the plan. Gray Quintana DO [address] [place] [address] documented in this encounter [facility] 08-23-2022 Instructions Gray Quintana DO - 08/23/2022 11:14 AM EDT Cymbalta Neurontin (Gabapentin) Lyrica documented in this encounter [facility] 07-05-2022 Miscellaneous Notes Noted. Christina Anthony APRN.CNP Patient notified of results and provider's instructions. Patient verbalizes understanding. Patient also states that insurance will not cover medication for weight loss. Kasey Perez RN Attempted to contact patient with no answer. Left message for patient to return call. Yoselin Hull Please call patient and let her know that lab work looks fantastic!!! No acute concerns. LDL (bad cholesterol) is very slightly elevated. Increasing green leafy veggies and lean protein in diet will help improve. Otherwise, keep up the great work. Thank you, Christina Anthony APRN.CNP documented in this encounter [facility] 07-03-2022 Instructions Christina Anthony APRN.CNP - 07/03/2022 11:48 AM EST Adipex--- 3 months only. Contrave - pill Qysmia - pill Injections: Victoza, Trulicity, Saxenda, Mounjaro (some are weekly injections, some are daily injections). documented in this encounter [facility] 07-03-2022 History of Present illness Narrative Chief Complaint Patient presents with: Establish Care HPI Nadja Toney Ramirezvaelrie is a 72 year old female who presents here today for Above Complaints. Nadja is establishing care with our PCP team today. She is a new patient to me today. Concerns today... HTN -- On olmesartan 40 mg daily and HCTZ 12.5 mg daily. She states compliant with current blood pressure medication(s). She does not check BP at home. She denies chest pain, shortness of breath, palpitations, dizziness, leg edema, headaches, or vision changes. Last 14 Encounter BP Readings: Date: BP: 07/03/2022 140/80 03/27/2020 122/64 03/03/2005 134/90 02/23/2005 120/80 Ulcerative colitis -- Boswellia BID as needed. Helps with pain of UC, asthma, and chronic overall pain. Tolerating well with this regimen. Just started this recently. Follows with Dr. Drosey for this in [place], [place]. Next appt in October. Last colonscopy about 3-4 years ago. Last UC flare about 1-2 years ago. Need to get their records. Weight -- Intermittent fasting for the past year. Lost 13 lbs but had flare up with asthma and UC so was put on prednisone, gained weight back. Gaining weight in mid-section only. Drinks water all day , cut out all pop. Would like to lose weight. Asked about medications. Cut back on red meat. Eats only 1-2 meals per day. Works out by walking 30-40 min about 5x per week. Asthma -- Recently dx Follows with Dr. Montaño for this. Uses albuterol as needed which is rare -- normally only with a flare or illness. NEVA-- Wears CPAP at night but struggling with mask at night and keeping it on. Following with Dr. Montaño for this -- getting a new sleep study coming up. Wants nasal application instead. Bone density test 1-[address] [facility]. Dx with start of osteopenia.Takes Vitamin D3 -- 5000 -95098 international unit(s) per day. Also takes 100 mcg K2. Follows with [facility] for spinal stenosis. Mammogram-- up to date. Last month was normal per pt report. Past medical history, appointments, medications, allergies reviewed. Previous Medical History PAST MEDICAL HISTORY Diagnosis Date Ulcerative colitis, unspecified Previous Surgical History PAST SURGICAL HISTORY Procedure Laterality Date LAMINECTOMY W/O FFD 05/29 VERT SEG LUMBAR Laminectomy, lumbar TONSILLECTOMY PRIMARY/SECONDARY <AGE 12 Tonsillectomy Family History FAMILY HISTORY Problem Relation Age of Onset Colon Cancer Father Colon Cancer Paternal Grandfather Cancer Unknown Patient Allergies ALLERGIES No Known Allergies Current Medications Current Outpatient Medications on File Prior to Visit Medication Sig hydroCHLOROthiazide (HYDRODIURIL, ESIDRIX) 12.5 mg tablet Take 12.5 mg by mouth once daily. olmesartan (BENICAR) 40 mg tablet Take 40 mg by mouth once daily. [id number] (COSAMIN AVOCA, WITH BOSWELLIA,) 500-500-33.3-70 mg tab Take 1 tablet by mouth twice daily as needed. MESALAMINE ORAL Take by mouth. (Patient not taking: Reported on 07/03/2022) No current facility-administered medications on file prior to visit. Social History Social History Tobacco Use Smoking status: Every Day Packs/day: 1.00 Types: Cigarettes Smokeless tobacco: Never Substance Use Topics Alcohol use: Yes Drug use: No REVIEW OF SYSTEMS: as above Reviewed relevant PMHx, PSHx, Social Hx, current medications and allergies. Review of Symptoms REVIEW OF SYSTEMS See HPI. All other systems are negative. EXAM: BP 140/80 (BP Site: Left Leg, BP Position: Sitting, BP Cuff Size: Large Adult) Pulse 77 Resp 14 Ht 165 cm (5' 4.96) Wt 106 kg (233 lb 9.6 oz) SpO2 94% BMI 38.92 kg/m General Appearance: Well appearing, alert, in no acute distress, well-hydrated, well nourished.. Skin: Skin color, texture, turgor normal, no suspicious rashes or lesions. Head: Normocephalic, no masses, lesions, tenderness or abnormalities. Neck: Supple, no adenopathy; thyroid symmetric, normal size, no bruits. Back:no pain to palpation of vertebrae, good flexion and extension, good range of motion, no muscle tenderness, reflexes are 2+ and symmetric, motor and sensory appear to be normal, negative SLR test, no evidence of scoliosis Lungs: Lungs clear to auscultation. No wheezing, rhonchi, rales.. Heart: RRR without murmur, gallop, or rubs. No ectopy. Abdomen: Normal abdominal exam, Abdomen soft, non-tender. Bowel sounds normal. No masses, organomegaly. Extremities: No deformities, edema, skin discoloration, clubbing or cyanosis. Good capillary refill. . Musculoskeletal: No joint swelling, deformity, or tenderness. Peripheral Pulses: Normal. Neurologic: Gait normal. Reflexes normal and symmetric. Sensation grossly intact.. Health Maintenance List COVID-19 VACCINE(1) Never done HEPATITIS A(1 of 2 - Risk 2-dose series) Never done PNEUMOCOCCAL: 65+(1 - PCV) Never done MMR(1 of 2 - Risk 2-dose series) Never done HEPATITIS C SCREENING Never done LIPID SCREEN Never done DIABETES SCREEN Never done SHINGRIX VACCINE(1 of 2) Never done HEPATITIS B(1 of 3 - Risk 3-dose series) Never done COLORECTAL CANCER SCREENING due on 04/06/2012 BONE DENSITY Never done ADVANCE DIRECTIVE DISCUSSION Never done DEPRESSION ASSESSMENT Never done MAMMOGRAM due on 05/11/2023 DTAP,TDAP,TD(2 - Td or Tdap) due on 01/24/2028 INFLUENZA Completed ASSESSMENT/PLAN: 1. Wellness examination - ICD9: V70.0, ICD10: Z00.00 (primary diagnosis) - Counseled on healthy diet and regular exercise - Calcium intake with supplements or by diet of 1000 mg/day for under 50, 3556-3078 mg/day for 50+ - Discussed need and benefit for weight loss. BMI 38.92 kg/(m^2) - LIPID PANEL BASIC - COMP METABOLIC PANEL - CBC + DIFF - HGB A1C - TSH BLD - DEPRESSION SCREENING/ASSESSMENT 2. Ulcerative colitis without complications, unspecified location (HCC) - ICD9: 556.9, ICD10: K51.90 Stable. Continue Boswellia. Continue with routine follow-ups with Dr. Dorsey. Ask about colonoscopy at next visit. - COSAMIN AVOCA (WITH BOSWELLIA) 500 MG-500 MG-33.3 MG-70 MG TABLET 3. Osteopenia, unspecified location - ICD9: 733.90, ICD10: M85.80 - Reviewed the need for Calcium and Vitamin D supplements and weight bearing exercise as tolerated 4. Hypertension, essential - ICD9: 401.9, ICD10: I10 - good control - Continue current medication(s) - Encouraged dietary sodium restriction/DASH diet - Recommended regular aerobic exercise. - Recommend home blood pressure monitoring, to bring results in on next visit - Discussed need and benefit for weight loss. - Goal of BP <130/80 - Recommend home or pharmacy blood pressure monitoring - Recommended no refined sugar, low refined starch, healthy oil intake (olive oil), healthy protein (fish) along the lines of the Mediterranean diet. 5. NEVA (obstructive sleep apnea) - ICD9: 327.23, ICD10: G47.33 Continue with repeat sleep study for nasal application. 6. Mild intermittent asthma without complication - ICD9: 493.90, ICD10: J45.20 Mild intermittent Asthma stable - Continue current meds - Avoidance of triggers recommended - Flu shot in the fall recommended 7. Obesity, Class II, BMI 35-39.9 - ICD9: 278.00, ICD10: E66.9 Weight increasing - Behavioral intervention and - Eat well program Discussed diet changes and intermittent fasting regimen. Discussed foods to avoid. Discussed weight loss medication options -- pt will call insurance to see what will be covered. Pt unsure about doing injectable medication herself. RTO in 3 months, sooner if needed. Prescription instructions reviewed with patient as applicable. Potential red flag symptoms discussed with the patient. Reviewed appropriate action plan to take if red flag symptoms occur. Patient agreeable to treatment plan. Christina Vega APRN.TOOL HONING MACHINE SET UP OPERATOR [address] [place] [address] documented in this encounter [facility] 07-03-2022 Nurse Note Pt states trish legs ach badley and lft heel has had two cortizone shots in heel dr. States will mostly need surgery on it. documented in this encounter [facility] 09-17-2020 Evaluation + Plan note Future Scheduled TestsXR Knee 3 Views Left 09/17/20XR Knee 3 Views Right 09/17/20XR Spine Lumbar W/Obliques 4 Views 09/17/20 [facility] Evaluation + Plan note Future Appointments Appointment Date:05/25/2021 02:30:00 PM Scheduled Provider:ASHLEY DWYER JR, MD Location: [facility] Appointment Type: ORDER ANALYST Appointment Date:07/26/2021 01:20:00 PM Scheduled Provider:JACKIE HAIDER Location:[facility] Appointment Type: OV Future Scheduled TestsXR Knee 3 Views Left 09/17/20XR Knee 3 Views Right 09/17/20XR Spine Lumbar W/Obliques 4 Views 09/17/20 [facility] Evaluation + Plan note Future Appointments Appointment Date:06/28/2021 09:50:00 AM Scheduled Provider:JACKIE HAIDER Location:[facility] Appointment Type:PC OV Follow Up Appointment Date:07/26/2021 01:20:00 PM Scheduled Provider:JACKIE HAIDER Location:[facility] Appointment Type: OV Future Scheduled TestsXR Knee 3 Views Left 09/17/20XR Knee 3 Views Right 09/17/20XR Spine Lumbar W/Obliques 4 Views 09/17/20 [facility] Evaluation + Plan note Future Appointments Appointment Date:01/02/2022 10:30:00 AM Scheduled Provider:JACKIE HAIDER Location:[facility] Appointment Type:PC OV Appointment Date:03/09/2022 10:50:00 AM Scheduled Provider:JACKIE HAIDER Location:[facility] Appointment Type: OV [facility] Evaluation + Plan note Future Appointments Appointment Date:03/09/2022 10:50:00 AM Scheduled Provider:JACKIE HAIDER Location:[facility] Appointment Type: OV Diagnostic Tests PendingCalprotectin, Fecal 01/24/22Stool Culture 01/24/22Clostridium difficile (PCR) 01/24/22Giardia Antigen 01/24/22 [facility] Evaluation + Plan note Future Appointments Appointment Date:03/09/2022 10:50:00 AM Scheduled Provider:JACKIE HAIDER Location:[facility] Appointment Type: OV [facility] Evaluation + Plan note Future Appointments Appointment Date:08/30/2022 10:30:00 AM Scheduled Provider:YAN REYES Location:[facility] Appointment Type: OV [facility] Evaluation note Diagnosis Onset Date Nicotine dependence, cigaret helio, uncomplicated acute NEVA (obstructive sleep apnea) acute COPD (chronic obstructive pulmonary disease) [facility] Work Phone: Evaluation note* Diagnosis Onset Date Resolution Status Asthma-COPD overlap syndrome [facility] Work Phone: Evaluation note* Diagnosis Onset Date Resolution Status Nicotine dependence, cigarettes, uncomplicated acute Asthma-COPD overlap syndrome [facility] Work Phone: Evaluation note* Diagnosis Wellness examination- Primary Ulcerative colitis without complications, unspecified location (HCC) Osteopenia, unspecified location Hypertension, essential Unspecified essential hypertension NEVA (obstructive sleep apnea) Obstructive sleep apnea (adult) (pediatric) Mild intermittent asthma without complication Unspecified asthma Obesity, Class II, BMI 35-39.9 Obesity, unspecified [facility]* Diagnosis Onset Date Resolution Status NEVA (obstructive sleep apnea) acute Smoking greater than 20 pack years acute Asthma-COPD overlap syndrome chronic Obstructive Sleep Apnea-Hypopnea Syndrome noneactive [facility] Work Phone: Evaluation note* Diagnosis Muscle pain- Primary Mylagia and myositis, unspecified Myalgia Mylagia and myositis, unspecified Multiple joint pain Pain in joint, multiple sites Hypertension, essential Unspecified essential hypertension Ulcerative colitis without complications, unspecified location (HCC) [facility]* Diagnosis Spinal stenosis of lumbar region, unspecified whether neurogenic claudication present- Primary [facility]* Diagnosis Spinal stenosis, lumbar region, without neurogenic claudication- Primary [facility]* Diagnosis Spinal stenosis, lumbar region, without neurogenic claudication- Primary [facility] Diagnosis Spinal stenosis, lumbar region, without neurogenic claudication- Primary [facility]* Diagnosis Fatigue, unspecified type- Primary History of iron deficiency Personal history of diseases of blood and blood-forming organs [facility]* Diagnosis Spinal stenosis, lumbar region, without neurogenic claudication- Primary [facility]* Diagnosis Spinal stenosis, lumbar region, without neurogenic claudication- Primary [facility]* Diagnosis Obesity, Class II, BMI 35-39.9- Primary Obesity, unspecified NEVA (obstructive sleep apnea) Obstructive sleep apnea (adult) (pediatric) Microscopic hematuria Blood glucose elevated Other abnormal glucose Hypertension, essential Unspecified essential hypertension Ulcerative colitis without complications, unspecified location (HCC) Chronic kidney disease, stage 2 (mild) Anxiety and depression Dysthymic disorder [facility]* Diagnosis CKD (chronic kidney disease) stage 2, GFR 60-89 ml/min- Primary Chronic kidney disease, Stage II (mild) Obesity, Class II, BMI 35-39.9 Obesity, unspecified documented [facility]* Diagnosis Obesity, Class II, BMI 35-39.9- Primary Obesity, unspecified CKD (chronic kidney disease), stage II Chronic kidney disease, Stage II (mild) NEVA (obstructive sleep apnea) Obstructive sleep apnea (adult) (pediatric) documented [facility]* Diagnosis Obesity, Class II, BMI 35-39.9- Primary Obesity, unspecified CKD (chronic kidney disease), stage II Chronic kidney disease, Stage II (mild) NEVA (obstructive sleep apnea) Obstructive sleep apnea (adult) (pediatric) Dietary counseling Dietary surveillance and counseling documented [facility]* Diagnosis Hypertension, essential Unspecified essential hypertension documented [facility]* Diagnosis Acute bronchitis with chronic obstructive pulmonary disease (COPD) (HCC)- Primary Obstructive chronic bronchitis with acute bronchitis Lung nodule, multiple Other nonspecific abnormal finding of lung field Chronic obstructive pulmonary disease, unspecified COPD type (HCC) documented [facility] this [facility] noteNo assessment information availableWLutheran [facility] Work Phone: Evaluation note* Diagnosis Obesity, Class II, BMI 35-39.9- Primary Obesity, unspecified CKD (chronic kidney disease), stage II Chronic kidney disease, Stage II (mild) NEVA (obstructive sleep apnea) Obstructive sleep apnea (adult) (pediatric) Dietary counseling Dietary surveillance and counseling documented in this encounter [facility] note* Diagnosis Pulmonary nodule- Primary Solitary pulmonary nodule documented [facility] this [facility]* Diagnosis Elevated C-reactive protein (CRP)- Primary documented in this encounter [facility] note* Diagnosis Encounter for screening mammogram for breast cancer documented [facility] this [facility]* Diagnosis Weight gain- Primary Abnormal weight gain CKD (chronic kidney disease) stage 2, GFR 60-89 ml/min Chronic kidney disease, Stage II (mild) Osteopenia, unspecified location Elevated C-reactive protein (CRP) Hypertension, essential Unspecified essential hypertension Obesity, Class II, BMI 35-39.9 Obesity, unspecified Fatigue, unspecified type Vitamin D deficiency Unspecified vitamin D deficiency Hyperglycemia Other abnormal glucose Acute bronchitis with chronic obstructive pulmonary disease (COPD) (HCC) (HCC) Obstructive chronic bronchitis with acute bronchitis Ulcerative colitis without complications, unspecified location (HCC) documented [facility]* Diagnosis Elevated C-reactive protein (CRP)- Primary Elevated serum creatinine Other nonspecific findings on examination of blood [facility]* Diagnosis Pedal edema- Primary Edema CKD (chronic kidney disease) stage 2, GFR 60-89 ml/min Chronic kidney disease, Stage II (mild) Hypertension, essential Unspecified essential hypertension [facility]* Diagnosis Hypertension, essential Unspecified essential hypertension [facility]* Diagnosis Pedal edema- Primary Edema Hypertension, essential Unspecified essential hypertension CKD (chronic kidney disease) stage 2, GFR 60-89 ml/min Chronic kidney disease, Stage II (mild) Wheezing SOB (shortness of breath) Shortness of breath [facility]* Diagnosis Pedal edema- Primary Edema Hypertension, essential Unspecified essential hypertension CKD (chronic kidney disease) stage 2, GFR 60-89 ml/min Chronic kidney disease, Stage II (mild) SOB (shortness of breath) Shortness of breath Allergic arthritis of hand, unspecified laterality Situational anxiety Other anxiety states [facility]* Diagnosis Obesity, Class II, BMI 35-39.9- Primary Obesity, unspecified Hypertension, essential Unspecified essential hypertension Chronic kidney disease, stage 2 (mild) [facility]* Diagnosis Left Achilles tendinitis- Primary Achilles bursitis or tendinitis [facility]* Diagnosis Hypertension, essential- Primary Unspecified essential hypertension Left Achilles tendinitis Achilles bursitis or tendinitis Pedal edema Edema CKD (chronic kidney disease) stage 2, GFR 60-89 ml/min Chronic kidney disease, Stage II (mild) Obesity, Class II, BMI 35-39.9 Obesity, unspecified Fatigue, unspecified type Hyperglycemia Other abnormal glucose Wheezing SOB (shortness of breath) Shortness of breath [facility] Diagnosis Costochondritis- Primary Tietze's disease [facility] Diagnosis Chest wall pain- Primary Painful respiration Chronic obstructive pulmonary disease, unspecified COPD type (HCC) Acute pain of right shoulder SOB (shortness of breath) Shortness of breath [facility] Diagnosis Acute pain of right shoulder [facility] Diagnosis Shortness of breath- Primary Chest pain varying with breathing [facility]* Diagnosis Hypertension, essential Unspecified essential hypertension documented in this [facility]* Diagnosis Hypertension, essential- Primary Unspecified essential hypertension Encounter for screening mammogram for malignant neoplasm of breast Other screening mammogram Asymptomatic postmenopausal status Disorder of bone and cartilage Disorder of bone and cartilage, unspecified Chronic obstructive pulmonary disease, unspecified COPD type (HCC) Ulcerative colitis without complications, unspecified location (HCC) CKD (chronic kidney disease) stage 2, GFR 60-89 ml/min Chronic kidney disease, Stage II (mild) Pedal edema Edema Wheezing SOB (shortness of breath) Shortness of breath Vitamin D deficiency Unspecified vitamin D deficiency Fatigue, unspecified type IFG (impaired fasting glucose) Impaired fasting glucose [facility] Diagnosis Wheezing SOB (shortness of breath) Shortness of breath [facility] Diagnosis Pedal edema Edema SOB (shortness of breath) Shortness of breath CKD (chronic kidney disease) stage 2, GFR 60-89 ml/min Chronic kidney disease, Stage II (mild) Hypertension, essential Unspecified essential hypertension [facility] Diagnosis Chronic obstructive pulmonary disease, unspecified COPD type (HCC) [facility]* Diagnosis Asthma-COPD overlap syndrome (HCC)- Primary NEVA (obstructive sleep apnea) Obstructive sleep apnea (adult) (pediatric) Former cigarette smoker Personal history of tobacco use, presenting hazards to health Morbid obesity (HCC) Morbid obesity Lung nodules Other nonspecific abnormal finding of lung field [facility] Diagnosis Hypoxemia- Primary Morbid obesity (HCC) Morbid obesity [facility]* Diagnosis Asymptomatic postmenopausal status Disorder of bone and cartilage Disorder of bone and cartilage, unspecified [facility]* Diagnosis Encounter for screening mammogram for malignant neoplasm of breast Other screening mammogram [facility]* Diagnosis Acute and chronic respiratory failure with hypoxia (HCC)- Primary Acute and chronic respiratory failure [facility]* Diagnosis Sciatica, right side- Primary [facility] Diagnosis Sciatica, right side- Primary CKD (chronic kidney disease) stage 2, GFR 60-89 ml/min Chronic kidney disease, Stage II (mild) Heartburn Pedal edema Edema [facility]* Diagnosis Asthma-COPD overlap syndrome (HCC)- Primary Nocturnal hypoxemia Hypoxemia Morbid obesity (HCC) Morbid obesity [facility]* Diagnosis Chest pressure- Primary Other chest pain [facility] Diagnosis Hospital discharge follow-up- Primary Other follow-up examination Acute deep vein thrombosis (DVT) of proximal vein of right lower extremity (HCC) Hypertension, essential Unspecified essential hypertension IFG (impaired fasting glucose) Impaired fasting glucose Poor sleep NEVA (obstructive sleep apnea) Obstructive sleep apnea (adult) (pediatric) Nasal congestion Other diseases of nasal cavity and sinuses [facility] Diagnosis Acute deep vein thrombosis (DVT) of proximal vein of right lower extremity (HCC)- Primary [facility]* Diagnosis Nasal congestion Other diseases of nasal cavity and sinuses [facility] Diagnosis Acute deep vein thrombosis (DVT) of proximal vein of right lower extremity (HCC)- Primary Screening for cholesterol level Screening for lipoid disorders Hypertension, essential Unspecified essential hypertension [facility]* Diagnosis Personal history of DVT (deep vein thrombosis)- Primary Personal history of venous thrombosis and embolism [facility] Diagnosis Personal history of DVT (deep vein thrombosis)- Primary Personal history of venous thrombosis and embolism [facility] Diagnosis Pain of right lower extremity- Primary Acute deep vein thrombosis (DVT) of proximal vein of right lower extremity (HCC) Acute deep vein thrombosis (DVT) of proximal vein of right lower extremity (HCC) Pain of right lower extremity [facility] Diagnosis Acute deep vein thrombosis (DVT) of proximal vein of right lower extremity (HCC) Pain of right lower extremity [facility]* Diagnosis Personal history of DVT (deep vein thrombosis)- Primary Personal history of venous thrombosis and embolism [facility] Diagnosis Increased urinary frequency- Primary Urinary frequency Foul smelling urine Other nonspecific finding on examination of urine [facility] Diagnosis Personal history of DVT (deep vein thrombosis)- Primary Personal history of venous thrombosis and embolism Venous (peripheral) insufficiency Unspecified venous (peripheral) insufficiency BMI 40.0-44.9, adult (HCC) Body Mass Index 40.0-44.9, adult Ulcerative colitis with complication, unspecified location (HCC) documented in this encounter [facility]* Diagnosis Abdominal distension- Primary Flatulence, eructation, and gas pain Chronic midline low back pain with bilateral sciatica Spinal stenosis of lumbar region without neurogenic claudication Spinal stenosis, lumbar region, without neurogenic claudication Bilateral leg edema Edema LUQ abdominal pain Abdominal pain, left upper quadrant Hypertension, essential Unspecified essential hypertension IFG (impaired fasting glucose) Impaired fasting glucose [facility]* Diagnosis Chronic midline low back pain with bilateral sciatica Spinal stenosis of lumbar region without neurogenic claudication Spinal stenosis, lumbar region, without neurogenic claudication documented [facility]* Diagnosis Abdominal distension Flatulence, eructation, and gas pain LUQ abdominal pain Abdominal pain, left upper quadrant [facility]* Diagnosis Calculus of gallbladder without cholecystitis without obstruction- Primary Calculus of gallbladder without mention of cholecystitis or obstruction Nausea Nausea alone Osteoarthritis of spine with radiculopathy, 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 Primary localized osteoarthrosis, pelvic region and thigh [facility]* Diagnosis Calculus of gallbladder without cholecystitis without obstruction Calculus of gallbladder without mention of cholecystitis or obstruction Nausea Nausea alone documented in this encounter [facility]* Diagnosis Calculus of gallbladder without cholecystitis without obstruction Calculus of gallbladder without mention of cholecystitis or obstruction Nausea Nausea alone Ulcerative colitis without complications, unspecified location (HCC) Pulmonary emphysema, unspecified emphysema type (HCC) Spinal stenosis of lumbar region, unspecified whether neurogenic claudication present Essential (primary) hypertension Unspecified essential hypertension Family history of malignant neoplasm of colon Family history of malignant neoplasm of gastrointestinal tract Encounter for screening for malignant neoplasm of colon Special screening for malignant neoplasms, colon documented in this encounter [facility]* Diagnosis Radiculopathy of lumbar region- Primary Thoracic or lumbosacral neuritis or radiculitis, unspecified Osteoarthritis of spine with radiculopathy, lumbar region History of lumbar laminectomy for spinal cord decompression Other postprocedural status Other idiopathic scoliosis, lumbar region [facility]* Diagnosis Calculus of gallbladder without cholecystitis without obstruction Calculus of gallbladder without mention of cholecystitis or obstruction Nausea Nausea alone documented in this encounter [facility]* Diagnosis Asthma-COPD overlap syndrome (HCC)- Primary documented in this encounter [facility]* Diagnosis Asthma-COPD overlap syndrome (HCC)- Primary Nocturnal hypoxemia Hypoxemia Morbid obesity (HCC) Morbid obesity documented in this encounter [facility]* Diagnosis Radiculopathy of lumbar region Thoracic or lumbosacral neuritis or radiculitis, unspecified documented in this encounter [facility]* Diagnosis Radiculopathy of lumbar region- Primary Thoracic or lumbosacral neuritis or radiculitis, unspecified History of lumbar laminectomy for spinal cord decompression Other postprocedural status documented [facility]* Diagnosis Radiculopathy of lumbar region- Primary Thoracic or lumbosacral neuritis or radiculitis, unspecified History of lumbar laminectomy for spinal cord decompression Other postprocedural status Radiculopathy of lumbar region Thoracic or lumbosacral neuritis or radiculitis, unspecified History of lumbar laminectomy for spinal cord decompression Other postprocedural status documented [facility]* Diagnosis Left elbow pain- Primary Pain in joint, upper arm Neck pain Cervicalgia Mid back pain Backache, unspecified Hypertension, essential Unspecified essential hypertension Radiculopathy of lumbar region Thoracic or lumbosacral neuritis or radiculitis, unspecified History of lumbar laminectomy for spinal cord decompression Other postprocedural status documented in this encounter [facility]* Diagnosis Neck pain- Primary Cervicalgia Radiculopathy of lumbar region Thoracic or lumbosacral neuritis or radiculitis, unspecified History of lumbar laminectomy for spinal cord decompression Other postprocedural status [facility]* Diagnosis History of lumbar laminectomy for spinal cord decompression- Primary Other postprocedural status Osteoarthritis of spine with radiculopathy, lumbar region Radiculopathy of lumbar region Thoracic or lumbosacral neuritis or radiculitis, unspecified History of lumbar laminectomy for spinal cord decompression Other postprocedural status Osteoarthritis of spine with radiculopathy, lumbar region Radiculopathy of lumbar region Thoracic or lumbosacral neuritis or radiculitis, unspecified documented in this encounter [facility]* Diagnosis Neck pain- Primary Cervicalgia History of lumbar laminectomy for spinal cord decompression Other postprocedural status Osteoarthritis of spine with radiculopathy, lumbar region Radiculopathy of lumbar region Thoracic or lumbosacral neuritis or radiculitis, unspecified documented in this encounter [facility]* Diagnosis Dysuria- Primary Screening for depression Encounter for screening examination for other mental health and behavioral disorders History of lumbar laminectomy for spinal cord decompression Other postprocedural status Osteoarthritis of spine with radiculopathy, lumbar region Radiculopathy of lumbar region Thoracic or lumbosacral neuritis or radiculitis, unspecified documented in this encounter [facility] note* Diagnosis Microhematuria- Primary Microscopic hematuria History of lumbar laminectomy for spinal cord decompression Other postprocedural status Osteoarthritis of spine with radiculopathy, lumbar region Radiculopathy of lumbar region Thoracic or lumbosacral neuritis or radiculitis, unspecified documented in this encounter [facility] note* Diagnosis Neck pain- Primary Cervicalgia History of lumbar laminectomy for spinal cord decompression Other postprocedural status Osteoarthritis of spine with radiculopathy, lumbar region Radiculopathy of lumbar region Thoracic or lumbosacral neuritis or radiculitis, unspecified documented in this encounter [facility] note* Diagnosis UTI symptoms- Primary Other symptoms involving urinary system History of lumbar laminectomy for spinal cord decompression Other postprocedural status Osteoarthritis of spine with radiculopathy, lumbar region Radiculopathy of lumbar region Thoracic or lumbosacral neuritis or radiculitis, unspecified documented in this encounter [facility] note* Diagnosis Neck pain- Primary Cervicalgia History of lumbar laminectomy for spinal cord decompression Other postprocedural status Osteoarthritis of spine with radiculopathy, lumbar region Radiculopathy of lumbar region Thoracic or lumbosacral neuritis or radiculitis, unspecified [facility] N[facility] No data available for this section [facility] Discharge instructions No data available for this section [facility] Discharge instructionsAdditional Instructions You have sigmoid diverticulitis which was treated with antibiotics for a week. I prescribed [place] for pain, nausea medicine, and recommend for the next 2 days you drink clear fluids only then slowly eating bland food again. If symptoms worsen or you develop fever, worsening abdominal pain, or cannot keep down your medications come down to the ER.[facility] Work Phone: Progress note No data available for this section [facility] Reason for referral (narrative)* Diagnostic Procedure Only (Routine) - Pending Review Specialty Diagnoses / Procedures Referred By Clay henao Referred To Contact [facility] Diagnoses Encounter for screening mammogram for breast cancer Procedures EMMANUELLE SCREENING SCREENING MAMMOGRAPHY BI 2-VIEW BREAST INC Gray Serra DO [address] [place] [address] [facility] [address] [place] [address] Referral ID Status Reason Start Date Expiration Date Visits Requested Visits Authorized [id number] Pending Review Auto-Generat ed Referral 06/20/2023 07/19/2024 1 1 [facility] for referral (narrative)* Diagnostic Procedure Only (Routine) - Pending Review Specialty Diagnoses / Procedures Referred By Contac t Referred To Contact [facility] Diagnoses Encounter for screening mammogram for breast cancer Procedures EMMANUELLE SCREENING SCREENING MAMMOGRAPHY BI 2-VIEW BREAST INC Gray Serra, DO [address] [place] [address] [facility] [address] [place] [address] Referral ID Status Reason Start Date Expiration Date Visits Requested Visits Authorized [id number] Pending Review Auto-Generat ed Referral 06/27/2023 07/26/2024 1 1 [facility] for referral (narrative)* Diagnostic Procedure Only (Routine) - Authorized Specialty Diagnoses / Procedures Referred By Contac t Referred To Contact X[facility] IMAG[facility] Diagnoses Asymptomatic postmenopausal status Disorder of bone and cartilage Procedures DXA-AXIAL SKELETON Gray Quintana, DO [address] [place] [address] [place] [address] Referral ID Status Reason Start Date Expiration Date Visits Requested Visits Authorized [id number] Authorized Auto-Generat ed Referral 01/23/2024 02/21/2025 1 1 * Diagnostic Procedure Only (Routine) - Authorized Specialty Diagnoses / Procedures Referred By Clay t Referred To Contact [facility] Diagnoses Encounter for screening mammogram for malignant neoplasm of breast Procedures EMMANUELLE SCREENING SCREENING MAMMOGRAPHY BI 2-VIEW BREAST INC CAD Gray Quintana, DO [address] [place] [address] [facility] [address] [place] [address] Referral ID Status Reason Start Date Expiration Date Visits Requested Visits Authorized [id number] Authorized Auto-Generat ed Referral 01/23/2024 02/21/2025 1 1 [facility] for referral (narrative)* Outpatient Procedure (Routine) - Authorized Specialty Diagnoses / Procedures [facility] Diagnoses Mild intermittent asthma without complication Procedures NITRIC OXIDE, EXHALED NITRIC OXIDE GAS DETERMINATION Yan Montaño MD [address] [facility] [address] Res[facility] [place] [address] [place] [address] Referral ID Status Reason Start Date Expiration Date Visits Requested Visits Authorized [id number] Authorized Auto-Generat ed Referral 06/25/2025 1 1 [facility] for referral (narrative)* Diagnostic Procedure Only (Routine) - New Request Specialty Diagnoses / Procedures Referred By Contac t Referred To Contact [facility] Diagnoses Poor sleep NEVA (obstructive sleep apnea) Procedures HOME SLEEP APNEA TEST (HSAT) SLEEP STD AIRFLOW HRT RATE&O2 SAT EFFORT Christina Rene, ARIAN.TOOL HONING MACHINE SET UP OPERATOR [address] [place] [address] Neurological [place] [address] [place] [address] Referral ID Status Reason Start Date Expiration Date Visits Requested Visits Authorized [id number] New Request Auto-Generat ed Referral 06/18/2024 06/18/2025 1 1 [facility]No reason for referral information [facility]utheran [facility] Work Phone: Reason for visit Narrative* Diagnostic Procedure Only (Routine) - Closed Specialty Diagnoses / Procedures Referred By Contac t Referred To Contact XR IMAGING Diagnoses Acute pain of right shoulder Procedures XR SHOULDER GENERAL 3V OR MORE AP/TRUE AP/OTHER RIGHT RADEX SHOULDER COMPLETE MINIMUM 2 VIEWS Carolyn Ramirez, ARIAN.TOOL HONING MACHINE SET UP OPERATOR [address] [place] [address] [place] [address] Referral ID Status Reason Start Date Expiration Date V isits Requested Visits Authorized [id number] Closed Auto-Generate d Referral 12/03/2023 01/01/2025 1 1 [facility] for visit Narrative* Diagnostic Procedure Only (Routine) - Closed Specialty Diagnoses / Procedures Referred By Contac t Referred To Contact XR IMAGING Diagnoses Asymptomatic postmenopausal status Disorder of bone and cartilage Procedures DXA-AXIAL SKELETON Gray Quintana DO [address] [place] [address] [place] [address] Referral ID Status Reason Start Date Expiration Date V isits Requested Visits Authorized [id number] Closed Auto-Generate d Referral 01/23/2024 02/21/2025 1 1 [facility] for visit Narrative* Diagnostic Procedure Only (Routine) - Closed Specialty Diagnoses / Procedures Referred By Contac t Referred To Contact [facility] Diagnoses Encounter for screening mammogram for malignant neoplasm of breast Procedures EMMANUELLE SCREENING SCREENING MAMMOGRAPHY BI 2-VIEW BREAST INC CAD Gray Quintana DO [address] [place] [address] [facility] [address] [place] [address] Referral ID Status Reason Start Date Expiration Date V isits Requested Visits Authorized [id number] Closed Auto-Generate d Referral 01/23/2024 02/21/2025 1 1 [facility] for visit Narrative* Diagnostic Procedure Only (Urgent) - Closed Specialty Diagnoses / Procedures Referred By Contac t Referred To Contact [facility] Diagnoses Acute deep vein thrombosis (DVT) of proximal vein of right lower extremity (HCC) Pain of right lower extremity Procedures US DVT LOWER RIGHT DUP-SCAN XTR VEINS UNILATERAL/LIMITED STUDY Christina Anthony, ENTERPRISE INFRASTRUCTURE ARCHITECT.TOOL HONING MACHINE SET UP OPERATOR [address] [place] [address] Phone: tel: fax: [place] [address] Referral ID Status Reason Start Date Expiration Date V isits Requested Visits Authorized [id number] Closed Auto-Generate d Referral 07/28/2024 08/27/2025 1 1 [facility] for visit Narrative* Consult, Test, Treat (Routine) - Closed Specialty Diagnoses / Procedures Referred By Sabinoac t Referred To Contact Vascular Medicine Diagnoses Acute deep vein thrombosis (DVT) of proximal vein of right lower extremity (HCC) Procedures CONSULT TO VASCULAR MEDICINE OFFICE/OUTPATIENT [facility] 60 MINUTES Christina Anthony, ENTERPRISE INFRASTRUCTURE ARCHITECT.TOOL HONING MACHINE SET UP OPERATOR [address] [place] [address] Phone: tel: fax: Referral ID Status Reason Start Date Expiration Date V isits Requested Visits Authorized [id number] Closed PCP Requested Referral 06/25/2024 06/25/2025 1 1 [facility] for visit Narrative* Diagnostic Procedure Only (Routine) - Closed Specialty Diagnoses / Procedures Referred By Contac t Referred To Contact XR IMAGING Diagnoses Chronic midline low back pain with bilateral sciatica Spinal stenosis of lumbar region without neurogenic claudication Procedures XR HIP BILATERAL 5V PEL/AP/LAT EACH HIP RADEX HIPS BILATERAL WITH PELVIS MINIMUM 5 VIEWS Gray Quintana L, DO [address] [place] [address] Phone: tel: fax: [place] [address] Referral ID Status Reason Start Date Expiration Date V isits Requested Visits Authorized [id number] Closed Auto-Generate d Referral 10/03/2024 11/02/2025 1 1 [facility] for visit Narrative* Diagnostic Procedure Only (Routine) - Closed Specialty Diagnoses / Procedures Referred By Contac t Referred To Contact US IMAGING Diagnoses Abdominal distension LUQ abdominal pain Procedures US ABD RIGHT UPPER QUADRANT US ABDOMINAL REAL TIME W/IMAGE LIMITED Gray Quintana Estella, DO [address] [place] [address] Phone: tel: fax: [place] [address] Referral ID Status Reason Start Date Expiration Date V isits Requested Visits Authorized [id number] Closed Auto-Generate d Referral 10/03/2024 11/02/2025 1 1 [facility] for visit Narrative* MRI/CT (Routine) - Closed Specialty Diagnoses / Procedures Referred By Contac t Referred To Contact MR IMAGING Diagnoses Calculus of gallbladder without cholecystitis without obstruction Procedures MRI PANC/TRISH WO/W IVCON MRI ABDOMEN W/O & W/CONTRAST MATERIAL Bri Moeller MD [address] [facility] [place] [address] Phone: tel: fax: [place] [address] Referral ID Status Reason Start Date Expiration Date V isits Requested Visits Authorized [id number] Closed Auto-Generate d Referral 10/30/2024 11/29/2025 1 1 [facility] for visit Narrative* MRI/CT (Routine) - Closed Specialty Diagnoses / Procedures Referred By Contac t Referred To Contact MR IMAGING Diagnoses Radiculopathy of lumbar region Procedures MRI LUMBAR SPINE WO IVCON MRI SPINAL CANAL LUMBAR W/O CONTRAST MATERIAL Cherelle Mo MD [address] [facility] [place] [address] Phone: tel: fax: [place] [address] Referral ID Status Reason Start Date Expiration Date V isits Requested Visits Authorized [id number] Closed Auto-Generate d Referral 11/05/2024 12/05/2025 [facility] Procedure Only (Routine) - Closed Specialty Diagnoses / Procedures Referred By Sabinoac t Referred To Contact XR IMAGING Diagnoses Left elbow pain Procedures XR ELBOW GENERAL 2V AP/LAT LEFT RADEX ELBOW 2 VIEWS Jason Francois, ARIAN.TOOL HONING MACHINE SET UP OPERATOR [address] [place] [address] Phone: tel: fax: [place] [address] Referral ID Status Reason Start Date Expiration Date V isits Requested Visits Authorized [id number] Closed Auto-Generate d Referral 12/04/2024 01/03/2026 1 1 [facility] Chief Complaint and Reason for Visit Chief Complaint 6 wk FU Reason for Visit Nicotine dependence, cigarettes, uncomplicated NEVA (obstructive sleep apnea) COPD (chronic obstructive pulmonary disease) Chief Complaint 6 wk FU Hematuria Reason for Visit Nicotine dependence, cigarettes, uncomplicated NEVA (obstructive sleep apnea) COPD (chronic obstructive pulmonary disease) Chief Complaint STOOL SAMPLE COPD Acute/SOB Reason for Visit Asthma-COPD overlap syndrome Chief Complaint 2 W FU TOBACCO ABUSE Reason for Visit Nicotine dependence, cigarettes, uncomplicated Asthma-COPD overlap syndrome Chief Complaint TOBACCO ABUSE 1 Y FU Obstructive sleep apnea follow-up NEVA Reason for Visit NEVA (obstructive sle ep apnea) Smoking greater than 20 pack years Asthma-COPD overlap syndrome Obstructive Sleep Apnea-Hypopnea Syndrome Chief Complaint cold sx Chief Complaint Admit Date COLITIS January 15, 2025 11 :51am Family History No Family History Records Found Relationship Condition Age at Onset Recorded Date/T tony father Malignant neoplasm of colon Unknown aunt Malignant neoplasm of colon Unknown Malignant neoplasm of breast Unknown Advance Directives No Advanced Directives Records Found Advance Directive Response Recorded Date/ Time Living Will No August 25, 2019 6:26pm Power of Legal Service Specialist No August 24 6:26pm Advance Directive Response Recorded Date/ Time Living Will No August 25, 2019 5:26pm Power of Legal Service Specialist No August 24 5:26pm Advance Directive Response Recorded Date/ Time Living Will No March 23 10:22am Power of Legal Service Specialist No March 23, 2023 10:22am Advance Directive Response Recorded Date/ Time Do you have a Healthcare Power of Legal Service Specialist? Yes January 15, 2025 11:52am Reason for Referral Specialty Diagnoses / Procedures Referred By Contac t Referred To Contact Vascular Medicine Diagnoses Acute deep vein thrombosis (DVT) of proximal vein of right lower extremity (HCC) Procedures CONSULT TO VASCULAR MEDICINE OFFICE/OUTPATIENT [facility] 60 MINUTES Christina Anthony APRN.TOOL HONING MACHINE SET UP OPERATOR [address] [place] [address] Referral ID Status Reason Start Date Expiration Date Visits Requested Visits Authorized [id number] Authorized PCP Requested Referral 06/25/2024 06/25/2025 1 1 Specialty Diagnoses / Procedures Referred By Contac t Referred To Contact CT IMAGING Diagnoses SOB (shortness of breath) Procedures CT CHEST W IVCON PE DIAGNOSTIC COMPUTED TOMOGRAPHY THORAX W/CONTRAST Caorlyn Ramirez, ENTERPRISE INFRASTRUCTURE ARCHITECT.TOOL HONING MACHINE SET UP OPERATOR [address] [place] [address] [place] [address] Referral ID Status Reason Start Date Expiration Date Visits Requested Visits Authorized [id number] Authorized Auto-Generat ed Referral 12/03/2023 01/01/2025 1 1 Specialty Diagnoses / Procedures Referred By Contac t Referred To Contact XR IMAGING Diagnoses Acute pain of right shoulder Procedures XR SHOULDER GENERAL 3V OR MORE AP/TRUE AP/OTHER RIGHT RADEX SHOULDER COMPLETE MINIMUM 2 VIEWS Carolyn Ramirez, ENTERPRISE INFRASTRUCTURE ARCHITECT.TOOL HONING MACHINE SET UP OPERATOR [address] [place] [address] [place] [address] Referral ID Status Reason Start Date Expiration Date V isits Requested Visits Authorized [id number] Closed Auto-Generate d Referral 12/03/2023 01/01/2025 1 1 Specialty Diagnoses / Procedures Referred By Contac t Referred To Contact [facility] Diagnoses Chronic obstructive pulmonary disease, unspecified COPD type (HCC) Procedures LUNG DIFFUSION CAPACITY (DLCO) DIFFUSING CAPACITY Carolyn Ramirez, ENTERPRISE INFRASTRUCTURE ARCHITECT.TOOL HONING MACHINE SET UP OPERATOR [address] [place] [address] [facility] [address] [place] [address] Referral ID Status Reason Start Date Expiration Date Visits Requested Visits Authorized [id number] Authorized Auto-Generat ed Referral 12/03/2023 01/01/2025 1 1 Specialty Diagnoses / Procedures Referred By Contac t Referred To Contact [facility] Diagnoses Chronic obstructive pulmonary disease, unspecified COPD type (HCC) Procedures LUNG VOLUMES Carolyn Ramirez, ARIAN.TOOL HONING MACHINE SET UP OPERATOR [address] [place] [address] [address] [address] [place] [id number] Referral ID Status Reason Start Date Expiration Date Visits Requested Visits Authorized [id number] Authorized Auto-Generat ed Referral 12/03/2023 01/01/2025 1 1 Specialty Diagnoses / Procedures Referred By Contac t Referred To Contact [facility] Diagnoses Chronic obstructive pulmonary disease, unspecified COPD type (HCC) Procedures SPIROMETRY WITH DILATOR IF OBSTRUCTED BRNCDILAT RSPSE SPMTRY PRE&POST-BRNCDILAT ADMN Carolyn Ramirez APRN.TOOL HONING MACHINE SET UP OPERATOR [address] [place] [address] [address] Referral ID Status Reason Start Date Expiration Date Visits Requested Visits Authorized [id number] Authorized Auto-Generat ed Referral 12/03/2023 01/01/2025 1 1 Specialty Diagnoses / Procedures Referred By Contac t Referred To Contact Carolyn Ramirez, ARIAN.TOOL HONING MACHINE SET UP OPERATOR [address] [place] [address] Referral ID Status Reason Start Date Expiration Date Visits Re quested Visits Authorized [id number] Closed 1 1 Specialty Diagnoses / Procedures Referred By Contac t Referred To Contact CT IMAGING Diagnoses Pulmonary nodule Procedures CT CHEST WO IVCON DIAGNOSTIC COMPUTED TOMOGRAPHY THORAX W/O FAREEDRST Gray Quintana DO [address] [place] [address] [place] [address] Referral ID Status Reason Start Date Expiration Date Visits Requested Visits Authorized [id number] Pending Review Auto-Generat ed Referral 05/24/2024 1 1 Specialty Diagnoses / Procedures Referred By Contac t Referred To Contact CT IMAGING Diagnoses Lung nodule, multiple Chronic obstructive pulmonary disease, unspecified COPD type (HCC) Procedures CT CHEST WO IVCON DIAGNOSTIC COMPUTED TOMOGRAPHY THORAX W/O CNTRST Gray Quintana, DO [address] [place] [address] Ct Imaging [id number] Referral ID Status Reason Start Date Expiration Date Visits Requested Visits Authorized [id number] Authorized Auto-Generat ed Referral 3 05/05/2024 1 1 Specialty Diagnoses / Procedures Referred By Contac t Referred To Contact Nutrition Diagnoses Obesity, Class II, BMI 35-39.9 NEVA (obstructive sleep apnea) Blood glucose elevated Hypertension, essential Ulcerative colitis without complications, unspecified location (HCC) Chronic kidney disease, stage 2 (mild) Procedures CONSULT TO NUTRITION THERAPY MEDICAL NUTRITION ASSMT&IVNTJ INDIV EACH 15 [place] MEDICAL NUTRITION ASSMT&IVNTJ INDIV EACH 15 [place] MEDICAL NUTRITION ASSMT&IVNTJ INDIV EACH 15 [place] MEDICAL NUTRITION ASSMT&IVNTJ INDIV EACH 15 [place] Christina Anthony APRN.TOOL HONING MACHINE SET UP OPERATOR [address] [place] [id number] Referral ID Status Reason Start Date Expiration Date Visits Requested Visits Authorized [id number] Authorized PCP Requested Referral 12/27/2022 12/27/2023 1 1 Specialty Diagnoses / Procedures Referred By Contac t Referred To Contact [facility] Diagnoses Spinal stenosis of lumbar region, unspecified whether neurogenic claudication present Spinal stenosis, lumbar region, without neurogenic claudication Procedures PT REHAB FOLLOW UP ORDER THERAPEUTIC EXERCISES RE, EA 15 MIN. Tina Epps, PT [facility] [place] [place] [address] Referral ID Status Reason Start Date Expiration Date Visits Requested Visits Authorized [id number] Pending Review PCP Requested Referral Auto-Generate d Referral 10/24/2022 01/22/2023 1 1 Summary Purpose Additional Source Comments Goals (unrecognized section and content) Goals may be documented in a n alternate section Care Team (unrecognized sect ion and content) School Laboratory Technician Relationship Specialty Start Date End Date Gray Quintana DO [address] [place] [address] PCP - General Family Medicine 07/03/22 Richard Castro [address] [place] [phone] Referring Ent - Otolaryngology 01/13/22 School Laboratory Technician Relationship Specialty Start Date End Date Gray Quintana DO [address] [place] [address] PCP - General Family Medicine 07/03/22 Richard Castro [address] [place] [phone] Referring Ent - Otolaryngology 01/13/22 Team Status: Active Member Role Status Dates Dr. Dru Pierre , DO Family Provider Active Dr. Gray Quintana , DO Primary Care Provider Active Team Status: Inactive Member Role Status Dates Jackie Haider ORDER ANALYST, ORDER ANALYST-C Referring Provider Active Angie Landry ORDER ANALYST, ORDER ANALYST-C Attending Provider Active Yan Reyes ORDER ANALYST, ORDER ANALYST-C Primary Care Provider Activ e Team Status: Inactive Member Role Status Dates Yan Reyes ORDER ANALYST, ORDER ANALYST-C Primary Care Provider, Refe rring Provider Active Angie Landry ORDER ANALYST, ORDER ANALYST-C Attending Provider Active Team Status: Inactive Member Role Status Dates Dr. Paulie Montaño , Attending Provider, Referring Pro vider Active Yan Reyes ORDER ANALYST, ORDER ANALYST-C Primary Care Provider Activ e Team Status: Inactive Member Role Status Dates Dr. Gray Quintana , Primary Care Provider Active Angie Landry ORDER ANALYST, ORDER ANALYST-C Attending Provider Active School Laboratory Technician Relationship Specialty Start Date End Date Gray Quintana DO [address] [place] [address] PCP - General Family Medicine 07/03/22 Richard Castro [address] [place] [phone] Referring Ent - Otolaryngology 01/13/22 School Laboratory Technician Relationship Specialty Start Date End Date Gray Quintana DO [address] [facility] [address] PCP - General Family Medicine 07/03/22 Richard Castro [address] [facility] [place] [address] Referring Ent - Otolaryngology 01/13/22 School Laboratory Technician Relationship Specialty Start Date End Date Gray Quintana, DO [address] [facility] [place] [address] PCP - General Family Medicine 07/03/22 Richard Castro [address] [facility] [place] [address] Referring Ent - Otolaryngology 01/13/22 School Laboratory Technician Relationship Specialty Start Date End Date Gray Quintana DO [address] [facility] [place] [address] PCP - General Family Medicine 07/03/22 Richard Castro [address] [facility] [address] Referring Ent - Otolaryngology 01/13/22 School Laboratory Technician Relationship Specialty Start Date End Date Gray Quintana DO [address] [facility] [place] [address] PCP - General Family Medicine 07/03/22 Richard Castro [address] [facility] [place] [address] Referring Ent - Otolaryngology 01/13/22 School Laboratory Technician Relationship Specialty Start Date End Date Gray Quintana DO [address] [facility] [place] [address] PCP - General Family Medicine 07/03/22 Richard Castro [address] [facility] [address] Referring Ent - Otolaryngology 01/13/22 School Laboratory Technician Relationship Specialty Start Date End Date Gray Quintana DO [address] [facility] [place] [address] PCP - General Family Medicine 07/03/22 Richard Castro [address] [facility] [place] [address] Referring Ent - Otolaryngology 01/13/22 School Laboratory Technician Relationship Specialty Start Date End Date Gray Quintana DO [address] [facility] [place] [address] PCP - General Family Medicine 07/03/22 Richard Castro [address] [facility] [address] Referring Ent - Otolaryngology 01/13/22 School Laboratory Technician Relationship Specialty Start Date End Date Gray Quintana DO [address] [facility] [address] PCP - General Family Medicine 07/03/22 Richard Castro [address] [place] [address] Referring Ent - Otolaryngology 01/13/22 School Laboratory Technician Relationship Specialty Start Date End Date Gray Quintana DO [address] [facility] [place] [address] PCP - General Family Medicine 07/03/22 Richard Castro [address] [place] [address] Referring Ent - Otolaryngology 01/13/22 School Laboratory Technician Relationship Specialty Start Date End Date Gray Quintana DO [address] [place], [place] [address]81 PCP - General Family Medicine 07/03/22 Richard Castro [address] [place] [phone] Referring Ent - Otolaryngology 01/13/22 School Laboratory Technician Relationship Specialty Start Date End Date Gray Quintana DO [address] [place] [place], [place] [address] [phone] PCP - General Family Medicine 07/03/22 Richard Castro [address] [place] [phone] Referring Ent - Otolaryngology 01/13/22 School Laboratory Technician Relationship Specialty Start Date End Date Gray Quintana DO [address] [place], [place] [address] PCP - General Family Medicine 07/03/22 Richard Castro [address] [place] [phone] Referring Ent - Otolaryngology 01/13/22 School Laboratory Technician Relationship Specialty Start Date End Date Gray Quintana DO [address] [place], [place] [address]2364 [phone] PCP - General Family Medicine 07/03/22 Richard Castro [address] [place] [phone] Referring Ent - Otolaryngology 01/13/22 School Laboratory Technician Relationship Specialty Start Date End Date Gray Quintana DO [address] [place], [place] 309851 PCP - General Family Medicine 07/03/22 Richard Castro [address] [place] [phone] Referring Ent - Otolaryngology 01/13/22 School Laboratory Technician Relationship Specialty Start Date End Date Gray Quintana DO [address] [place], [place] [address]561 PCP - General Family Medicine 07/03/22 Richard Castro [address] [place] [phone] Referring Ent - Otolaryngology 01/13/22 School Laboratory Technician Relationship Specialty Start Date End Date Gray Quintana DO [address] [place], [place] [address]58751 PCP - General Family Medicine 07/03/22 Richard Castro [address] [place] [phone] Referring Ent - Otolaryngology 01/13/22 Team Status: Active Member Role Status Dates Dr. Gray Quintana DO Primary Care Provider Active Dr. Nicholas Dorsey MD Attending Provider, Referring Provider Active Team Status: Inactive Member Role Status Dates Dr. Gray Quintana DO Primary Care Provider Active Dr. Jordin Najera DO Attending Provider, Ellen escudero Active Team Status: Inactive Member Role Status Dates Dr. Gray Quintana DO Primary Care Provider Active CARYN FOX Attending Provider Active School Laboratory Technician Relationship Specialty Start Date End Date Gray Quintana DO [address] [place] [address] PCP - General Family Medicine 07/03/22 Richard Castro [address] [place] [address] Referring Ent - Otolaryngology 01/13/22 School Laboratory Technician Relationship Specialty Start Date End Date Gray Quintana DO [address] [place] [address] PCP - General Family Medicine 07/03/22 Richard Castro [address] [place] [phone] Referring Ent - Otolaryngology 01/13/22 School Laboratory Technician Relationship Specialty Start Date End Date Gray Quintana DO [address] [place] [address] PCP - General Family Medicine 07/03/22 Richard Castro [address] [place] [address] Referring Ent - Otolaryngology 01/13/22 School Laboratory Technician Relationship Specialty Start Date End Date Gray Quintana DO [address] [place] [address] PCP - General Family Medicine 07/03/22 Richard Castro [address] [place] [address] Referring Ent - Otolaryngology 01/13/22 School Laboratory Technician Relationship Specialty Start Date End Date Gray Quintana DO [address] [place] [address] PCP - General Family Medicine 07/03/22 Richard Castro [address] [place] [address] Referring Ent - Otolaryngology 01/13/22 School Laboratory Technician Relationship Specialty Start Date End Date Gray Quintana DO [address] [address] PCP - General Family Medicine 07/03/22 Richard Castro [address] [place] [address] Referring Ent - Otolaryngology 01/13/22 School Laboratory Technician Relationship Specialty Start Date End Date Gray Quintana DO [address] [place] [address] PCP - General Family Medicine 07/03/22 Richard Castro [address] [place] [address] Referring Ent - Otolaryngology 01/13/22 School Laboratory Technician Relationship Specialty Start Date End Date Gray Quintana DO [address] [place] [address] PCP - General Family Medicine 07/03/22 Richard Castro [address] [place] [address] Referring Ent - Otolaryngology 01/13/22 School Laboratory Technician Relationship Specialty Start Date End Date Gray Quintana DO [address] [place] [address] PCP - General Family Medicine 07/03/22 Richard Castro [address] [place] [phone] Referring Ent - Otolaryngology 01/13/22 School Laboratory Technician Relationship Specialty Start Date End Date Gray Quintana DO [address] [place] [address] PCP - General Family Medicine 07/03/22 Richard Castro [address] [place] [address] Referring Ent - Otolaryngology 01/13/22 School Laboratory Technician Relationship Specialty Start Date End Date Gray Quintana DO [address] [place] [address] PCP - General Family Medicine 07/03/22 Richard Castro [address] [place] [phone] Referring Ent - Otolaryngology 01/13/22 School Laboratory Technician Relationship Specialty Start Date End Date Gray Quintana DO [address] [place] [place], [place] [address] [phone] PCP - General Family Medicine 07/03/22 Richard Castro [address] [place] [address] Referring Ent - Otolaryngology 01/13/22 School Laboratory Technician Relationship Specialty Start Date End Date Gray Quintana DO [address] [place] [address] PCP - General Family Medicine 07/03/22 Richard Castro [address] [place] [address] Referring Ent - Otolaryngology 01/13/22 School Laboratory Technician Relationship Specialty Start Date End Date Gray Quintana DO [address] [place] [address] PCP - General Family Medicine 07/03/22 Richard Castro [address] [place] [address] Referring Ent - Otolaryngology 01/13/22 School Laboratory Technician Relationship Specialty Start Date End Date Gray Quintana DO [address] [place] [address] PCP - General Family Medicine 07/03/22 Richard Castro [address] [place] [phone] Referring Ent - Otolaryngology 01/13/22 School Laboratory Technician Relationship Specialty Start Date End Date Gray Quintana DO [address] [place], [place] 308043 [phone] PCP - General Family Medicine 07/03/22 Richard Castro [address] [place] [address] Referring Ent - Otolaryngology 01/13/22 School Laboratory Technician Relationship Specialty Start Date End Date Gray Quintana DO [address] [place], [place] [address] PCP - General Family Medicine 07/03/22 Richard Castro [address] [place] [address] Referring Ent - Otolaryngology 01/13/22 School Laboratory Technician Relationship Specialty Start Date End Date Gray Quintana DO [address] [place], [place] [address]991 PCP - General Family Medicine 07/03/22 Richard Castro [address] [place] [phone] Referring Ent - Otolaryngology 01/13/22 School Laboratory Technician Relationship Specialty Start Date End Date Gray Quintana DO [address] [place], [place] [address]38[address] PCP - General Family Medicine 07/03/22 Richard Castro [address] [place] [phone] Referring Ent - Otolaryngology 01/13/22 School Laboratory Technician Relationship Specialty Start Date End Date Gray Quintana DO [address] [place], [place] [address]90 [phone] PCP - General Family Medicine 07/03/22 Richard Castro [address] [place] [phone] Referring Ent - Otolaryngology 01/13/22 School Laboratory Technician Relationship Specialty Start Date End Date Gray Quintana DO [address] [place], [place] [address]011 PCP - General Family Medicine 07/03/22 Richard Castro [address] [place] [address] Referring Ent - Otolaryngology 01/13/22 School Laboratory Technician Relationship Specialty Start Date End Date Gray Quintana DO [address] [place] [place], [place] [address] [phone] PCP - General Family Medicine 07/03/22 Richard Castro [address] [place] [phone] Referring Ent - Otolaryngology 01/13/22 School Laboratory Technician Relationship Specialty Start Date End Date Gray Quintana DO [address] [place], [place] [address] PCP - General Family Medicine 07/03/22 Richard Castro [address] [place] [phone] Referring Ent - Otolaryngology 01/13/22 School Laboratory Technician Relationship Specialty Start Date End Date Gray Quintana DO [address] [place], [place] [address] [phone] PCP - General Family Medicine 07/03/22 Richard Castro [address] [place] [phone] Referring Ent - Otolaryngology 01/13/22 School Laboratory Technician Relationship Specialty Start Date End Date Gray Quintana DO [address] [place], [place] [address]89[address] PCP - General Family Medicine 07/03/22 Richard Castro [address] [place] [phone] Referring Ent - Otolaryngology 01/13/22 School Laboratory Technician Relationship Specialty Start Date End Date Gray Quintana DO [address] [place] [address] PCP - General Family Medicine 07/03/22 Richard Castro [address] [place] [phone] Referring Ent - Otolaryngology 01/13/22 School Laboratory Technician Relationship Specialty Start Date End Date Gray Quintana DO [address] [place] [address] PCP - General Family Medicine 07/03/22 Richard Castro [address] [place] [phone] Referring Ent - Otolaryngology 01/13/22 Christina Anthony, ARIAN.TOOL HONING MACHINE SET UP OPERATOR [address] [place] [address] Clay Machine Operator Family Medicine 05/04/24 Amelia Trotter APRN.TOOL HONING MACHINE SET UP OPERATOR [address] [place] [address] Clay Machine Operator Family Medicine 05/04/24 School Laboratory Technician Relationship Specialty Start Date End Date Gray Quintana DO [address] [place] [address] PCP - General Family Medicine 07/03/22 Richard Castro [address] [place] [phone] Referring Ent - Otolaryngology 01/13/22 Christina Anthony, ENTERPRISE INFRASTRUCTURE ARCHITECT.TOOL HONING MACHINE SET UP OPERATOR [address] [facility] [place] [address] Clay Machine Operator Family Medicine 05/04/24 Amelia Trotter, ENTERPRISE INFRASTRUCTURE ARCHITECT.TOOL HONING MACHINE SET UP OPERATOR [address] [place] [address] Clay Machine Operator Family Medicine 05/04/24 School Laboratory Technician Relationship Specialty Start Date End Date Gray Quintana DO [address] [place] [address] PCP - General Family Medicine 07/03/22 Richard Castro [address] [place] [phone] Referring Ent - Otolaryngology 01/13/22 Christina Anthony, ENTERPRISE INFRASTRUCTURE ARCHITECT.TOOL HONING MACHINE SET UP OPERATOR [address] [place] [address] [facility] 05/04/24 Amelia Trotter, ENTERPRISE INFRASTRUCTURE ARCHITECT.TOOL HONING MACHINE SET UP OPERATOR [address] [place] [address] Clay Machine Operator Family Medicine 05/04/24 School Laboratory Technician Relationship Specialty Start Date End Date Gray Quintana DO [address] [facility] [place] [address] PCP - General Family Medicine 07/03/22 Richard Castro [address] [place] [phone] Referring Ent - Otolaryngology 01/13/22 Christina Anthony, ARIAN.TOOL HONING MACHINE SET UP OPERATOR [address] [place] [address] Clay Machine Operator Family Medicine 05/04/24 Amelia Trotter APRN.TOOL HONING MACHINE SET UP OPERATOR [address] [place] [address] Clay Machine Operator Family Medicine 05/04/24 School Laboratory Technician Relationship Specialty Start Date End Date Gray Quintana DO [address] [place] [address] PCP - General Family Medicine 07/03/22 Richard Castro [address] [place] [phone] Referring Ent - Otolaryngology 01/13/22 Christina Anthony APRN.TOOL HONING MACHINE SET UP OPERATOR [address] [place] [address] [facility] 05/04/24 Amelia Trotter APRN.TOOL HONING MACHINE SET UP OPERATOR [address] [place] [address] [address] [facility] 05/04/24 School Laboratory Technician Relationship Specialty Start Date End Date Gray Quintana DO [address] [place] [address] PCP - General Family Medicine 07/03/22 Richard Catsro [address] [place] [phone] Referring Ent - Otolaryngology 01/13/22 Christina Anthony, ENTERPRISE INFRASTRUCTURE ARCHITECT.TOOL HONING MACHINE SET UP OPERATOR [address] [place] [address] Clay Machine Operator Family Medicine 05/04/24 Amelia Trotter ENTERPRISE INFRASTRUCTURE ARCHITECT.TOOL HONING MACHINE SET UP OPERATOR [address] [place] [address] Clay Machine Operator Family Medicine 05/04/24 School Laboratory Technician Relationship Specialty Start Date End Date Gray Quintana DO [address] [place] [address] PCP - General Family Medicine 07/03/22 Richard Castro [address] [place] [phone] Referring Ent - Otolaryngology 01/13/22 Christina Anthony, ENTERPRISE INFRASTRUCTURE ARCHITECT.TOOL HONING MACHINE SET UP OPERATOR [address] [place] [address] Clay Machine Operator Family Medicine 05/04/24 Amelia Trotter, ENTERPRISE INFRASTRUCTURE ARCHITECT.TOOL HONING MACHINE SET UP OPERATOR [address] [place] [address] [facility] 05/04/24 School Laboratory Technician Relationship Specialty Start Date End Date Gray Quintana DO [address] [address] PCP - General Family Medicine 07/03/22 Richard Castro [address] [place] [phone] Referring Ent - Otolaryngology 01/13/22 Christina Anthony, ENTERPRISE INFRASTRUCTURE ARCHITECT.TOOL HONING MACHINE SET UP OPERATOR [address] [place] [address] Clay Machine Operator Family Medicine 05/04/24 Amelia Trotter, ENTERPRISE INFRASTRUCTURE ARCHITECT.TOOL HONING MACHINE SET UP OPERATOR [address] [place], [place] [address]46 [phone] [facility] 05/[facility] School Laboratory Technician Relationship Specialty Start Date End Date Gray Quintana DO [address] [place] [address] PCP - General Family Medicine 07/03/22 Richard Castro [address] [place] [phone] Referring Ent - Otolaryngology 01/13/22 Christina Anthony, ENTERPRISE INFRASTRUCTURE ARCHITECT.TOOL HONING MACHINE SET UP OPERATOR [address] [place], [place] 373242 [phone] Clay Machine Operator Family Medicine 05/04/24 Amelia Trotter, ENTERPRISE INFRASTRUCTURE ARCHITECT.TOOL HONING MACHINE SET UP OPERATOR [address] [place], [place] 198381 [phone] [facility] 05/04/24 School Laboratory Technician Relationship Specialty Start Date End Date Gray Quintana DO [address] [place], [place] [address]783 [phone] PCP - General Family Medicine 07/03/22 Richard Castro [address] [place] [phone] Referring Ent - Otolaryngology 01/13/22 Christina Anthony, ENTERPRISE INFRASTRUCTURE ARCHITECT.TOOL HONING MACHINE SET UP OPERATOR [address] [facility] [place] [place] [address] Clay Machine Operator Family Medicine 05/04/24 DaniaAmelia, ENTERPRISE INFRASTRUCTURE ARCHITECT.TOOL HONING MACHINE SET UP OPERATOR [address] [place] [address] [facility] 05/04/24 School Laboratory Technician Relationship Specialty Start Date End Date Gray Quintana DO [address] [place] [address] PCP - General Family Medicine 07/03/22 Richard Castro [address] [place] [phone] Referring Ent - Otolaryngology 01/13/22 Christina Anthony, ENTERPRISE INFRASTRUCTURE ARCHITECT.TOOL HONING MACHINE SET UP OPERATOR [address] [place] [address] Clay Machine Operator Family Medicine 05/04/24 DaniaAmelia, ENTERPRISE INFRASTRUCTURE ARCHITECT.TOOL HONING MACHINE SET UP OPERATOR [address] [place] [address] [facility] 05/04/24 School Laboratory Technician Relationship Specialty Start Date End Date Gray Quintana DO [address] [place] [address] PCP - General Family Medicine 07/03/22 Richard Castro [address] [facility] [phone] Referring Ent - Otolaryngology 01/13/22 Christina Anthony, ENTERPRISE INFRASTRUCTURE ARCHITECT.TOOL HONING MACHINE SET UP OPERATOR [address] [facility] [place] [address] Clay Machine Operator Family Medicine 05/04/24 DaniaAmelia, ENTERPRISE INFRASTRUCTURE ARCHITECT.TOOL HONING MACHINE SET UP OPERATOR [address] [place] [address] Clay Machine Operator Family Medicine 05/04/24 School Laboratory Technician Relationship Specialty Start Date End Date Gray Quintana DO [address] [place] [address] PCP - General Family Medicine 07/03/22 Richard Castro [address] [place] [phone] Referring Ent - Otolaryngology 01/13/22 Christina Anthony, ENTERPRISE INFRASTRUCTURE ARCHITECT.TOOL HONING MACHINE SET UP OPERATOR [address] [place] [address] [facility] 05/04/24 DaniaAmelia, ENTERPRISE INFRASTRUCTURE ARCHITECT.TOOL HONING MACHINE SET UP OPERATOR [address] [place] [address] Clay Machine Operator Family Medicine 05/04/24 School Laboratory Technician Relationship Specialty Start Date End Date Gray Quintana DO [address] [place] [address] PCP - General Family Medicine 07/03/22 Richard Castro [address] [place] [phone] Referring Ent - Otolaryngology 01/13/22 Chrsitina Anthony, ENTERPRISE INFRASTRUCTURE ARCHITECT.TOOL HONING MACHINE SET UP OPERATOR [address] [place] [address] Clay Machine Operator Family Medicine 05/04/24 DaniaAmelia, ENTERPRISE INFRASTRUCTURE ARCHITECT.TOOL HONING MACHINE SET UP OPERATOR [address] [place] [address] Clay Machine Operator Family Medicine 05/04/24 School Laboratory Technician Relationship Specialty Start Date End Date Gray Quintana DO [address] [place] [address] PCP - General Family Medicine 07/03/22 Richard Castro [address] [place] [phone] Referring Ent - Otolaryngology 01/13/22 Christina Anthony, ENTERPRISE INFRASTRUCTURE ARCHITECT.TOOL HONING MACHINE SET UP OPERATOR [address] [place] [address] Clay Machine Operator Family Medicine 05/04/24 DaniaAmelia, ENTERPRISE INFRASTRUCTURE ARCHITECT.TOOL HONING MACHINE SET UP OPERATOR [address] [place] [address] Clay Machine Operator Family Medicine 05/04/24 School Laboratory Technician Relationship Specialty Start Date End Date Gray Quintana DO [address] [place] [address] PCP - General Family Medicine 07/03/22 Richard Castro [address] [place] [phone] Referring Ent - Otolaryngology 01/13/22 Christina Anthony, ARIAN.TOOL HONING MACHINE SET UP OPERATOR [address] [place] [address] [address] [facility] 05/04/24 Amelia Trotter, ARIAN.TOOL HONING MACHINE SET UP OPERATOR [address] [place] [address] [facility] 05/04/24 School Laboratory Technician Relationship Specialty Start Date End Date Gray Quintana DO [address] [place] [address] PCP - General Family Medicine 07/03/22 Richard Castro [address] [place] [phone] Referring Ent - Otolaryngology 01/13/22 Amelia Trotter, ARIAN.TOOL HONING MACHINE SET UP OPERATOR [address] [place] [address] [facility] 05/04/24 School Laboratory Technician Relationship Specialty Start Date End Date Gray Quintana DO [address] [place] [address] PCP - General Family Medicine 07/03/22 Richard Castro [address] [place] [phone] Referring Ent - Otolaryngology 01/13/22 Amelia Trotter, ENTERPRISE INFRASTRUCTURE ARCHITECT.TOOL HONING MACHINE SET UP OPERATOR [address] [facility] [place] [address] Clay Machine Operator Family Medicine 05/04/24 School Laboratory Technician Relationship Specialty Start Date End Date Gray Quintana DO [address] [place] [address] PCP - General Family Medicine 07/03/22 Richard Castro [address] [place] [address] Referring Ent - Otolaryngology 01/13/22 Amelia Trotter, ENTERPRISE INFRASTRUCTURE ARCHITECT.TOOL HONING MACHINE SET UP OPERATOR [address] [place] [address] Clay Machine Operator Family [facility] 05/04/24 School Laboratory Technician Relationship Specialty Start Date End Date Gray Quintana DO [address] [place] [address] PCP - General Family Medicine 07/03/22 Richard Castro [address] [place] [address] Referring Ent - Otolaryngology 01/13/22 Amelia Trotter, ENTERPRISE INFRASTRUCTURE ARCHITECT.TOOL HONING MACHINE SET UP OPERATOR [address] [place] [address] [facility] 05/04/24 School Laboratory Technician Relationship Specialty Start Date End Date Gray Quintana DO [address] [place], [place] 47[address] [phone] PCP - General Family Medicine 07/03/22 Richard Castro [address] [place] [phone] Referring Ent - Otolaryngology 01/13/22 DaniaAmelia, ENTERPRISE INFRASTRUCTURE ARCHITECT.TOOL HONING MACHINE SET UP OPERATOR [address] [place] [address] [facility] 05/04/24 School Laboratory Technician Relationship Specialty Start Date End Date Gray Quintana DO [address] [place] [address] PCP - General Family Medicine 07/03/22 Richard Castro [address] [facility] [phone] Referring Ent - Otolaryngology 01/13/22 DaniaAmelia, ENTERPRISE INFRASTRUCTURE ARCHITECT.TOOL HONING MACHINE SET UP OPERATOR [address] [facility] [place] [address] [facility] 05/04/24 School Laboratory Technician Relationship Specialty Start Date End Date Gray Quintana DO [address] [place] [address] PCP - General Family Medicine 07/03/22 Richard Castro [address] [place] [address] Referring Ent - Otolaryngology 01/13/22 DaniaAmelia, ENTERPRISE INFRASTRUCTURE ARCHITECT.TOOL HONING MACHINE SET UP OPERATOR [address] [place] [address] [facility] 05/04/24 School Laboratory Technician Relationship Specialty Start Date End Date Gray Quintana DO [address] [place] [address] PCP - General Family Medicine 07/03/22 Richard Castro [address] [place] [phone] Referring Ent - Otolaryngology 01/13/22 Amelia Trotter, ENTERPRISE INFRASTRUCTURE ARCHITECT.TOOL HONING MACHINE SET UP OPERATOR [address] [place], [place] 534379 [phone] Clay Machine Operator Family [facility] 05/04/24 School Laboratory Technician Relationship Specialty Start Date End Date Gray Quintana DO [address] [place], [place] 541179 [phone] PCP - General Family Medicine 07/03/22 Richard Castro [address] [place] [phone] Referring Ent - Otolaryngology 01/13/22 DaniaAmelia, ENTERPRISE INFRASTRUCTURE ARCHITECT.TOOL HONING MACHINE SET UP OPERATOR [address] [place], [place] 406735 [phone] [facility] 05/04/24 School Laboratory Technician Relationship Specialty Start Date End Date Gray Quintana DO [address] [place], [place] 597008 [phone] PCP - General Family Medicine 07/03/22 Richard Castro [address] [place] [phone] Referring Ent - Otolaryngology 01/13/22 Amelia Trotter, ENTERPRISE INFRASTRUCTURE ARCHITECT.TOOL HONING MACHINE SET UP OPERATOR [address] [place], [place] [address]6765 [phone] Clay Machine Operator [facility] 05/04/24 School Laboratory Technician Relationship Specialty Start Date End Date Gray Quintana DO [address] [place] [address] PCP - General Family Medicine 07/03/22 Richard Castro [address] [place] [address] Referring Ent - Otolaryngology 01/13/22 Amelia Trotter, ENTERPRISE INFRASTRUCTURE ARCHITECT.TOOL HONING MACHINE SET UP OPERATOR [address] [place] [address] [facility] 05/04/24 School Laboratory Technician Relationship Specialty Start Date End Date Gray Quintana DO [address] [place] [address] PCP - General Family Medicine 07/03/22 Richard Castro [address] [place] [phone] Referring Ent - Otolaryngology 01/13/22 Amelia Trotter, ENTERPRISE INFRASTRUCTURE ARCHITECT.TOOL HONING MACHINE SET UP OPERATOR [address] [place] [address] [facility] 05/04/24 School Laboratory Technician Relationship Specialty Start Date End Date Gray Quintana DO [address] [place] [address] PCP - General Family Medicine 07/03/22 Richard Castro [address] [place] [address] Referring Ent - Otolaryngology 01/13/22 Skye Trotterekah, ENTERPRISE INFRASTRUCTURE ARCHITECT.TOOL HONING MACHINE SET UP OPERATOR [address] [facility], [place] [address] Clay Machine Operator Family [facility] 05/04/24 School Laboratory Technician Relationship Specialty Start Date End Date Gray Quintana DO [address] [facility], [place] [address] [phone] PCP - General Family Medicine 07/03/22 Richard Castro [address] [facility] [place] [phone] Referring Ent - Otolaryngology 01/13/22 DaniaAmelia, ENTERPRISE INFRASTRUCTURE ARCHITECT.TOOL HONING MACHINE SET UP OPERATOR [address] [facility] [place] [address] [facility] 05/04/24 Ariela Brown, ENTERPRISE INFRASTRUCTURE ARCHITECT.TOOL HONING MACHINE SET UP OPERATOR [address] [facility], [place] [address] [facility] 11/10/24 School Laboratory Technician Relationship Specialty Start Date End Date Gray Quintana DO [address] [facility] [place] [address] PCP - General Family Medicine 07/03/22 Richard Castro [address] [facility] [place] [phone] Referring Ent - Otolaryngology 01/13/22 Amelia Trotter, ENTERPRISE INFRASTRUCTURE ARCHITECT.TOOL HONING MACHINE SET UP OPERATOR [address] [facility] [place] [address] [facility] 05/04/24 Ariela Brown APRN.TOOL HONING MACHINE SET UP OPERATOR [address] [place] [address] [facility] 11/10/24 School Laboratory Technician Relationship Specialty Start Date End Date Gray Quintana DO [address] [place] [address] PCP - General Family Medicine 07/03/22 Richard Castro [address] [place] [address] Referring Ent - Otolaryngology 01/13/22 Amelia Trotter, ENTERPRISE INFRASTRUCTURE ARCHITECT.TOOL HONING MACHINE SET UP OPERATOR [address] [place] [address] Clay Machine Operator [facility] 05/04/24 Ariela Brown, ENTERPRISE INFRASTRUCTURE ARCHITECT.TOOL HONING MACHINE SET UP OPERATOR [address] [place] [address] [facility] 11/10/24 School Laboratory Technician Relationship Specialty Start Date End Date Gray Quintana DO [address] [place] [address] PCP - General Family Medicine 07/03/22 Richard Castro [address] [place] [phone] Referring Ent - Otolaryngology 01/13/22 Amelia Trotter, ENTERPRISE INFRASTRUCTURE ARCHITECT.TOOL HONING MACHINE SET UP OPERATOR [address] [place] [address] [address] [facility] 05/04/24 Ariela Brown, ENTERPRISE INFRASTRUCTURE ARCHITECT.TOOL HONING MACHINE SET UP OPERATOR [address] [place], [place] 980121 Clay Machine Operator [facility] 11/10/24 School Laboratory Technician Relationship Specialty Start Date End Date Gray Quintana DO [address] [place] [address] PCP - General Family Medicine 07/03/22 Richard Castro [address] [place] [phone] Referring Ent - Otolaryngology 01/13/22 Amelia Trotter, ENTERPRISE INFRASTRUCTURE ARCHITECT.TOOL HONING MACHINE SET UP OPERATOR [address] [place] [address] Clay Machine Operator [facility] 05/04/24 Ariela Brown, ENTERPRISE INFRASTRUCTURE ARCHITECT.TOOL HONING MACHINE SET UP OPERATOR [address] [place] [address] Clay Machine Operator [facility] 11/10/24 School Laboratory Technician Relationship Specialty Start Date End Date Gray Quintana DO [address] [place] [address] PCP - General Family Medicine 07/03/22 Richard Castro [address] [place] [phone] Referring Ent - Otolaryngology 01/13/22 Amelia Trotter, ENTERPRISE INFRASTRUCTURE ARCHITECT.TOOL HONING MACHINE SET UP OPERATOR [address] [place], [place] 265575 [phone] Clay Machine Operator [facility] 05/04/24 Ariela Brown, ENTERPRISE INFRASTRUCTURE ARCHITECT.TOOL HONING MACHINE SET UP OPERATOR [address] [place] [address] Clay [address] [facility] 11/10/24 School Laboratory Technician Relationship Specialty Start Date End Date Gray Quintana DO [address] [place], [place] 692647 [phone] PCP - General Family Medicine 07/03/22 Richard Castro [address] [place] [phone] Referring Ent - Otolaryngology 01/13/22 Amelia Trotter, ENTERPRISE INFRASTRUCTURE ARCHITECT.TOOL HONING MACHINE SET UP OPERATOR [address] [place], [place] 991434 [phone] [facility] 05/04/24 Ariela Brown, ENTERPRISE INFRASTRUCTURE ARCHITECT.TOOL HONING MACHINE SET UP OPERATOR [address] [place] [address] [facility] 11/10/24 School Laboratory Technician Relationship Specialty Start Date End Date Gray Quintana DO [address] [place], [place] 399315 [phone] PCP - General Family Medicine 07/03/22 Richard Castro [address] [place] [phone] Referring Ent - Otolaryngology 01/13/22 Amelia Trotter, ENTERPRISE INFRASTRUCTURE ARCHITECT.TOOL HONING MACHINE SET UP OPERATOR [address] [place], [place] 56607[address] [phone] [facility] 05/04/24 Ariela Brown, ENTERPRISE INFRASTRUCTURE ARCHITECT.TOOL HONING MACHINE SET UP OPERATOR [address] [place], [place] [address] [phone] Clay Machine Operator [facility] 11/10/24 School Laboratory Technician Relationship Specialty Start Date End Date Gray Quintana DO [address] [place], [place] 042051 PCP - General Family Medicine 07/03/22 Richard Castro [address] [place] [phone] Referring Ent - Otolaryngology 01/13/22 DaniaAmelia, ENTERPRISE INFRASTRUCTURE ARCHITECT.TOOL HONING MACHINE SET UP OPERATOR [address] [place], [place] 009951 [facility] 05/04/24 Ariela Brown, ENTERPRISE INFRASTRUCTURE ARCHITECT.TOOL HONING MACHINE SET UP OPERATOR [address] [place], [place] 348817 [phone] [facility] 11/10/24 School Laboratory Technician Relationship Specialty Start Date End Date Gray Quintana DO [address] [place], [place] 126261 [phone] PCP - General Family Medicine 07/03/22 Richard Castro [address] [place] [phone] Referring Ent - Otolaryngology 01/13/22 DaniaAmelia, ENTERPRISE INFRASTRUCTURE ARCHITECT.TOOL HONING MACHINE SET UP OPERATOR [address] [place], [place] 129456 [phone] [facility] 05/04/24 Ariela Brown, ENTERPRISE INFRASTRUCTURE ARCHITECT.TOOL HONING MACHINE SET UP OPERATOR [address] [place] [address] [facility] 11/10/24 School Laboratory Technician Relationship Specialty Start Date End Date Gray Quintana DO [address] [place] [address] PCP - General Family Medicine 07/03/22 Richard Castro [address] [place] [address] Referring Ent - Otolaryngology 01/13/22 Amelia Trotter, ENTERPRISE INFRASTRUCTURE ARCHITECT.TOOL HONING MACHINE SET UP OPERATOR [address] [place] [address] [facility] 05/04/24 Ariela Brown, ENTERPRISE INFRASTRUCTURE ARCHITECT.TOOL HONING MACHINE SET UP OPERATOR [address] [place] [address] [address] [facility] 11/10/24 School Laboratory Technician Relationship Specialty Start Date End Date Gray Quintana DO [address] [place] [address] PCP - General Family Medicine 07/03/22 Richard Castro [address] [place] [phone] Referring Ent - Otolaryngology 01/13/22 DaniaAmelia, ENTERPRISE INFRASTRUCTURE ARCHITECT.TOOL HONING MACHINE SET UP OPERATOR [address] [place] [address] Clay Machine [facility] 05/04/24 Ariela Brown, ENTERPRISE INFRASTRUCTURE ARCHITECT.TOOL HONING MACHINE SET UP OPERATOR [address] [place] [address] Clay Machine Operator [facility] 11/10/24 School Laboratory Technician Relationship Specialty Start Date End Date Gray Quintana DO [address] [facility] [address] PCP - General Family Medicine 07/03/22 Richard Castro [address] [place] [address] Referring Ent - Otolaryngology 01/13/22 Amelia Trotter, ENTERPRISE INFRASTRUCTURE ARCHITECT.TOOL HONING MACHINE SET UP OPERATOR [address] [place] [address] Clay Machine [facility] 05/04/24 Ariela Brown, ENTERPRISE INFRASTRUCTURE ARCHITECT.TOOL HONING MACHINE SET UP OPERATOR [address] [place] [address] [facility] 11/10/24 School Laboratory Technician Relationship Specialty Start Date End Date Gray Quintana DO [address] [place] [address] PCP - General Family Medicine 07/03/22 Richard Castro [address] [place] [phone] Referring Ent - Otolaryngology 01/13/22 Amelia Trotter, ENTERPRISE INFRASTRUCTURE ARCHITECT.TOOL HONING MACHINE SET UP OPERATOR [address] [place] [address] [address] [facility] 05/04/24 Ariela Brown, ENTERPRISE INFRASTRUCTURE ARCHITECT.TOOL HONING MACHINE SET UP OPERATOR [address] [place] [address] [facility] 11/10/24 School Laboratory Technician Relationship Specialty Start Date End Date Gray Quintana DO [address] [facility] [address] PCP - General Family Medicine 07/03/22 Richard Castro [address] [place] [phone] Referring Ent - Otolaryngology 01/13/22 DaniaAmelia, ENTERPRISE INFRASTRUCTURE ARCHITECT.TOOL HONING MACHINE SET UP OPERATOR [address] [place] [address] [facility] 05/04/24 Ariela Brown, ENTERPRISE INFRASTRUCTURE ARCHITECT.TOOL HONING MACHINE SET UP OPERATOR [address] [place], [place] 126391 [facility] 11/[facility]24 Team Status: Active Member Role/Relationship Status Dates Dr. Gray Quintana DO Primary Care Provider Active Team Status: Inactive Member Role/Relationship Status Dates Dr. Gray Quintana DO Primary Care Provider Active Start: January 15, 2025 End: January 15, 2025 Dr. Jordin Najera DO Emergency Provider Active Start: January 15, 2025 End: January 15, 2025 School Laboratory Technician Relationship Specialty Start Date End Date Gray Quintana DO [address] [place], [place] [id number] PCP - General Family Medicine 07/03/22 Richard Castro [address] [place] [id number] Referring Ent - Otolaryngology 01/13/22 Amelia Trotter, ENTERPRISE INFRASTRUCTURE ARCHITECT.TOOL HONING MACHINE SET UP OPERATOR [address] [place], [place] [id number] [phone] Clay Machine Operator Family [facility] 05/04/24 Ariela Brown ENTERPRISE INFRASTRUCTURE ARCHITECT.TOOL HONING MACHINE SET UP OPERATOR [address] [place] [address] Clay Machine Operator Family Medicine 11/10/24 Care Team (unrecognized sect ion and content) Care Team Personnel Name: Mateo Dye Line Operator Linda PT Position: P3 Scheduling - Terminal Superintendent Advanced Member Role: Other Name: JACKIE HAIDER Position: P4 Advanced Practice Nurse Med Service: Active Provider Member Role: Primary Care Physician Address: Address: [address] [place] [address] Care Team Related Persons Name: MADISON TORRE Care Team Personnel Name: Mateo Dye Line Operator Linda PT Position: P3 Scheduling - Terminal Superintendent Advanced Member Role: Other Name: JACKIE HAIDER Position: P4 Advanced Practice Nurse Member Role: Primary Care Physician Address: Address: [address] [place] [address] Care Team Related Persons Name: MADISON TORRE Care Team Personnel Name: Mateo Dye Line Operator Linda PT Position: P3 Scheduling - Terminal Superintendent Advanced Member Role: Other Name: JACKIE HAIDER Position: P4 Advanced Practice Nurse Member Role: Primary Care Physician Address: Address: [address] [place] [address] Care Team Related Persons Name: MADISON TORRE Care Team Personnel Name: Mateo Dye Line Operator Linda PT Position: P3 Scheduling - Terminal Superintendent Advanced Member Role: Other Name: JACKIE HAIDER Position: P4 Advanced Practice Nurse Med Service: Active Provider Member Role: Primary Care Physician Address: Address: [address] [place] [address] Care Team Related Persons Name: MADISON TORRE Care Team Personnel Name: Mateo Dye Line Operator Linda PT Position: P3 Scheduling - Terminal Superintendent Advanced Member Role: Other Name: JACKIE HAIDER Position: P4 Advanced Practice Nurse Member Role: Primary Care Physician Address: Address: [address] [place] [address] Care Team Related Persons Name: MADISON TORRE Care Team Personnel Name: Jenna Galindo Clerk Linda PT Position: P3 Scheduling - Terminal Superintendent Advanced Member Role: Other Name: JACKIE HAIDER Position: P4 Advanced Practice Nurse Member Role: Primary Care Physician Address: Address: [address] [facility] [place] [address]- Care Team Related Persons Name: MADISON TORRE Care Team Personnel Name: Jenna Galindo Clerk Linda PT Position: P3 Scheduling - Terminal Superintendent Advanced Member Role: Other Name: QUINTANAGRAY DO Member Role: Primary Care Physician Address: Address: [address] [place] [address]- Care Team Related Persons Name: MADISON TORRE Source Comments (unrecognize d section and content) In the event this informatio n is protected by the Federal Confidentiality of Alcohol and Drug Abuse Patient Records regulations: The Federal rules restrict any use of the information to criminally investigate or prosecute any alcohol or drug abuse patient.[facility] the event this information is protected by the Federal Confidentiality of Alcohol and Drug Abuse Patient Records regulations: The Federal rules restrict any use of the information to criminally investigate or prosecute any alcohol or drug abuse patient.[facility] HospitalIn the event this information is protected by the Federal Confidentiality of Alcohol and Drug Abuse Patient Records regulations: The Federal rules restrict any use of the information to criminally investigate or prosecute any alcohol or drug abuse patient.[facility] HospitalIn the event this information is protected by the Federal Confidentiality of Alcohol and Drug Abuse Patient Records regulations: The Federal rules restrict any use of the information to criminally investigate or prosecute any alcohol or drug abuse patient.[facility] HospitalIn the event this information is protected by the Federal Confidentiality of Alcohol and Drug Abuse Patient Records regulations: The Federal rules restrict any use of the information to criminally investigate or prosecute any alcohol or drug abuse patient.[facility] HospitalIn the event this information is protected by the Federal Confidentiality of Alcohol and Drug Abuse Patient Records regulations: The Federal rules restrict any use of the information to criminally investigate or prosecute any alcohol or drug abuse patient.[facility] HospitalIn the event this information is protected by the Federal Confidentiality of Alcohol and Drug Abuse Patient Records regulations: The Federal rules restrict any use of the information to criminally investigate or prosecute any alcohol or drug abuse patient.[facility] HospitalIn the event this information is protected by the Federal Confidentiality of Alcohol and Drug Abuse Patient Records regulations: The Federal rules restrict any use of the information to criminally investigate or prosecute any alcohol or drug abuse patient.[facility] HospitalIn the event this information is protected by the Federal Confidentiality of Alcohol and Drug Abuse Patient Records regulations: The Federal rules restrict any use of the information to criminally investigate or prosecute any alcohol or drug abuse patient.[facility] HospitalIn the event this information is protected by the Federal Confidentiality of Alcohol and Drug Abuse Patient Records regulations: The Federal rules restrict any use of the information to criminally investigate or prosecute any alcohol or drug abuse patient.[facility] HospitalIn the event this information is protected by the Federal Confidentiality of Alcohol and Drug Abuse Patient Records regulations: The Federal rules restrict any use of the information to criminally investigate or prosecute any alcohol or drug abuse patient.[facility] HospitalIn the event this information is protected by the Federal Confidentiality of Alcohol and Drug Abuse Patient Records regulations: The Federal rules restrict any use of the information to criminally investigate or prosecute any alcohol or drug abuse patient.[facility] HospitalIn the event this information is protected by the Federal Confidentiality of Alcohol and Drug Abuse Patient Records regulations: The Federal rules restrict any use of the information to criminally investigate or prosecute any alcohol or drug abuse patient.[facility] HospitalIn the event this information is protected by the Federal Confidentiality of Alcohol and Drug Abuse Patient Records regulations: The Federal rules restrict any use of the information to criminally investigate or prosecute any alcohol or drug abuse patient.[facility] HospitalIn the event this information is protected by the Federal Confidentiality of Alcohol and Drug Abuse Patient Records regulations: The Federal rules restrict any use of the information to criminally investigate or prosecute any alcohol or drug abuse patient.[facility] HospitalIn the event this information is protected by the Federal Confidentiality of Alcohol and Drug Abuse Patient Records regulations: The Federal rules restrict any use of the information to criminally investigate or prosecute any alcohol or drug abuse patient.[facility] HospitalIn the event this information is protected by the Federal Confidentiality of Alcohol and Drug Abuse Patient Records regulations: The Federal rules restrict any use of the information to criminally investigate or prosecute any alcohol or drug abuse patient.[facility] HospitalIn the event this information is protected by the Federal Confidentiality of Alcohol and Drug Abuse Patient Records regulations: The Federal rules restrict any use of the information to criminally investigate or prosecute any alcohol or drug abuse patient.[facility] HospitalIn the event this information is protected by the Federal Confidentiality of Alcohol and Drug Abuse Patient Records regulations: The Federal rules restrict any use of the information to criminally investigate or prosecute any alcohol or drug abuse patient.[facility] HospitalIn the event this information is protected by the Federal Confidentiality of Alcohol and Drug Abuse Patient Records regulations: The Federal rules restrict any use of the information to criminally investigate or prosecute any alcohol or drug abuse patient.[facility] HospitalIn the event this information is protected by the Federal Confidentiality of Alcohol and Drug Abuse Patient Records regulations: The Federal rules restrict any use of the information to criminally investigate or prosecute any alcohol or drug abuse patient.[facility] HospitalIn the event this information is protected by the Federal Confidentiality of Alcohol and Drug Abuse Patient Records regulations: The Federal rules restrict any use of the information to criminally investigate or prosecute any alcohol or drug abuse patient.[facility] HospitalIn the event this information is protected by the Federal Confidentiality of Alcohol and Drug Abuse Patient Records regulations: The Federal rules restrict any use of the information to criminally investigate or prosecute any alcohol or drug abuse patient.[facility] HospitalIn the event this information is protected by the Federal Confidentiality of Alcohol and Drug Abuse Patient Records regulations: The Federal rules restrict any use of the information to criminally investigate or prosecute any alcohol or drug abuse patient.[facility] HospitalIn the event this information is protected by the Federal Confidentiality of Alcohol and Drug Abuse Patient Records regulations: The Federal rules restrict any use of the information to criminally investigate or prosecute any alcohol or drug abuse patient.[facility] HospitalIn the event this information is protected by the Federal Confidentiality of Alcohol and Drug Abuse Patient Records regulations: The Federal rules restrict any use of the information to criminally investigate or prosecute any alcohol or drug abuse patient.[facility] HospitalIn the event this information is protected by the Federal Confidentiality of Alcohol and Drug Abuse Patient Records regulations: The Federal rules restrict any use of the information to criminally investigate or prosecute any alcohol or drug abuse patient.[facility] HospitalIn the event this information is protected by the Federal Confidentiality of Alcohol and Drug Abuse Patient Records regulations: The Federal rules restrict any use of the information to criminally investigate or prosecute any alcohol or drug abuse patient.[facility] HospitalIn the event this information is protected by the Federal Confidentiality of Alcohol and Drug Abuse Patient Records regulations: The Federal rules restrict any use of the information to criminally investigate or prosecute any alcohol or drug abuse patient.[facility] HospitalIn the event this information is protected by the Federal Confidentiality of Alcohol and Drug Abuse Patient Records regulations: The Federal rules restrict any use of the information to criminally investigate or prosecute any alcohol or drug abuse patient.[facility] HospitalIn the event this information is protected by the Federal Confidentiality of Alcohol and Drug Abuse Patient Records regulations: The Federal rules restrict any use of the information to criminally investigate or prosecute any alcohol or drug abuse patient.[facility] HospitalIn the event this information is protected by the Federal Confidentiality of Alcohol and Drug Abuse Patient Records regulations: The Federal rules restrict any use of the information to criminally investigate or prosecute any alcohol or drug abuse patient.[facility] HospitalIn the event this information is protected by the Federal Confidentiality of Alcohol and Drug Abuse Patient Records regulations: The Federal rules restrict any use of the information to criminally investigate or prosecute any alcohol or drug abuse patient.[facility] HospitalIn the event this information is protected by the Federal Confidentiality of Alcohol and Drug Abuse Patient Records regulations: The Federal rules restrict any use of the information to criminally investigate or prosecute any alcohol or drug abuse patient.[facility] HospitalIn the event this information is protected by the Federal Confidentiality of Alcohol and Drug Abuse Patient Records regulations: The Federal rules restrict any use of the information to criminally investigate or prosecute any alcohol or drug abuse patient.[facility] HospitalIn the event this information is protected by the Federal Confidentiality of Alcohol and Drug Abuse Patient Records regulations: The Federal rules restrict any use of the information to criminally investigate or prosecute any alcohol or drug abuse patient.[facility] HospitalIn the event this information is protected by the Federal Confidentiality of Alcohol and Drug Abuse Patient Records regulations: The Federal rules restrict any use of the information to criminally investigate or prosecute any alcohol or drug abuse patient.[facility] HospitalIn the event this information is protected by the Federal Confidentiality of Alcohol and Drug Abuse Patient Records regulations: The Federal rules restrict any use of the information to criminally investigate or prosecute any alcohol or drug abuse patient.[facility] HospitalIn the event this information is protected by the Federal Confidentiality of Alcohol and Drug Abuse Patient Records regulations: The Federal rules restrict any use of the information to criminally investigate or prosecute any alcohol or drug abuse patient.[facility] HospitalIn the event this information is protected by the Federal Confidentiality of Alcohol and Drug Abuse Patient Records regulations: The Federal rules restrict any use of the information to criminally investigate or prosecute any alcohol or drug abuse patient.[facility] HospitalIn the event this information is protected by the Federal Confidentiality of Alcohol and Drug Abuse Patient Records regulations: The Federal rules restrict any use of the information to criminally investigate or prosecute any alcohol or drug abuse patient.[facility] HospitalIn the event this information is protected by the Federal Confidentiality of Alcohol and Drug Abuse Patient Records regulations: The Federal rules restrict any use of the information to criminally investigate or prosecute any alcohol or drug abuse patient.[facility] HospitalIn the event this information is protected by the Federal Confidentiality of Alcohol and Drug Abuse Patient Records regulations: The Federal rules restrict any use of the information to criminally investigate or prosecute any alcohol or drug abuse patient.[facility] HospitalIn the event this information is protected by the Federal Confidentiality of Alcohol and Drug Abuse Patient Records regulations: The Federal rules restrict any use of the information to criminally investigate or prosecute any alcohol or drug abuse patient.[facility] HospitalIn the event this information is protected by the Federal Confidentiality of Alcohol and Drug Abuse Patient Records regulations: The Federal rules restrict any use of the information to criminally investigate or prosecute any alcohol or drug abuse patient.[facility] HospitalIn the event this information is protected by the Federal Confidentiality of Alcohol and Drug Abuse Patient Records regulations: The Federal rules restrict any use of the information to criminally investigate or prosecute any alcohol or drug abuse patient.[facility] HospitalIn the event this information is protected by the Federal Confidentiality of Alcohol and Drug Abuse Patient Records regulations: The Federal rules restrict any use of the information to criminally investigate or prosecute any alcohol or drug abuse patient.[facility] HospitalIn the event this information is protected by the Federal Confidentiality of Alcohol and Drug Abuse Patient Records regulations: The Federal rules restrict any use of the information to criminally investigate or prosecute any alcohol or drug abuse patient.[facility] HospitalIn the event this information is protected by the Federal Confidentiality of Alcohol and Drug Abuse Patient Records regulations: The Federal rules restrict any use of the information to criminally investigate or prosecute any alcohol or drug abuse patient.[facility] HospitalIn the event this information is protected by the Federal Confidentiality of Alcohol and Drug Abuse Patient Records regulations: The Federal rules restrict any use of the information to criminally investigate or prosecute any alcohol or drug abuse patient.[facility] HospitalIn the event this information is protected by the Federal Confidentiality of Alcohol and Drug Abuse Patient Records regulations: The Federal rules restrict any use of the information to criminally investigate or prosecute any alcohol or drug abuse patient.[facility] HospitalIn the event this information is protected by the Federal Confidentiality of Alcohol and Drug Abuse Patient Records regulations: The Federal rules restrict any use of the information to criminally investigate or prosecute any alcohol or drug abuse patient.[facility] HospitalIn the event this information is protected by the Federal Confidentiality of Alcohol and Drug Abuse Patient Records regulations: The Federal rules restrict any use of the information to criminally investigate or prosecute any alcohol or drug abuse patient.[facility] HospitalIn the event this information is protected by the Federal Confidentiality of Alcohol and Drug Abuse Patient Records regulations: The Federal rules restrict any use of the information to criminally investigate or prosecute any alcohol or drug abuse patient.[facility] HospitalIn the event this information is protected by the Federal Confidentiality of Alcohol and Drug Abuse Patient Records regulations: The Federal rules restrict any use of the information to criminally investigate or prosecute any alcohol or drug abuse patient.[facility] HospitalIn the event this information is protected by the Federal Confidentiality of Alcohol and Drug Abuse Patient Records regulations: The Federal rules restrict any use of the information to criminally investigate or prosecute any alcohol or drug abuse patient.[facility] HospitalIn the event this information is protected by the Federal Confidentiality of Alcohol and Drug Abuse Patient Records regulations: The Federal rules restrict any use of the information to criminally investigate or prosecute any alcohol or drug abuse patient.[facility] HospitalIn the event this information is protected by the Federal Confidentiality of Alcohol and Drug Abuse Patient Records regulations: The Federal rules restrict any use of the information to criminally investigate or prosecute any alcohol or drug abuse patient.[facility] HospitalIn the event this information is protected by the Federal Confidentiality of Alcohol and Drug Abuse Patient Records regulations: The Federal rules restrict any use of the information to criminally investigate or prosecute any alcohol or drug abuse patient.[facility] HospitalIn the event this information is protected by the Federal Confidentiality of Alcohol and Drug Abuse Patient Records regulations: The Federal rules restrict any use of the information to criminally investigate or prosecute any alcohol or drug abuse patient.[facility] HospitalIn the event this information is protected by the Federal Confidentiality of Alcohol and Drug Abuse Patient Records regulations: The Federal rules restrict any use of the information to criminally investigate or prosecute any alcohol or drug abuse patient.[facility] HospitalIn the event this information is protected by the Federal Confidentiality of Alcohol and Drug Abuse Patient Records regulations: The Federal rules restrict any use of the information to criminally investigate or prosecute any alcohol or drug abuse patient.[facility] HospitalIn the event this information is protected by the Federal Confidentiality of Alcohol and Drug Abuse Patient Records regulations: The Federal rules restrict any use of the information to criminally investigate or prosecute any alcohol or drug abuse patient.[facility] HospitalIn the event this information is protected by the Federal Confidentiality of Alcohol and Drug Abuse Patient Records regulations: The Federal rules restrict any use of the information to criminally investigate or prosecute any alcohol or drug abuse patient.[facility] HospitalIn the event this information is protected by the Federal Confidentiality of Alcohol and Drug Abuse Patient Records regulations: The Federal rules restrict any use of the information to criminally investigate or prosecute any alcohol or drug abuse patient.[facility] HospitalIn the event this information is protected by the Federal Confidentiality of Alcohol and Drug Abuse Patient Records regulations: The Federal rules restrict any use of the information to criminally investigate or prosecute any alcohol or drug abuse patient.[facility] HospitalIn the event this information is protected by the Federal Confidentiality of Alcohol and Drug Abuse Patient Records regulations: The Federal rules restrict any use of the information to criminally investigate or prosecute any alcohol or drug abuse patient.[facility] HospitalIn the event this information is protected by the Federal Confidentiality of Alcohol and Drug Abuse Patient Records regulations: The Federal rules restrict any use of the information to criminally investigate or prosecute any alcohol or drug abuse patient.[facility] HospitalIn the event this information is protected by the Federal Confidentiality of Alcohol and Drug Abuse Patient Records regulations: The Federal rules restrict any use of the information to criminally investigate or prosecute any alcohol or drug abuse patient.[facility] HospitalIn the event this information is protected by the Federal Confidentiality of Alcohol and Drug Abuse Patient Records regulations: The Federal rules restrict any use of the information to criminally investigate or prosecute any alcohol or drug abuse patient.[facility] HospitalIn the event this information is protected by the Federal Confidentiality of Alcohol and Drug Abuse Patient Records regulations: The Federal rules restrict any use of the information to criminally investigate or prosecute any alcohol or drug abuse patient.[facility] HospitalIn the event this information is protected by the Federal Confidentiality of Alcohol and Drug Abuse Patient Records regulations: The Federal rules restrict any use of the information to criminally investigate or prosecute any alcohol or drug abuse patient.[facility] HospitalIn the event this information is protected by the Federal Confidentiality of Alcohol and Drug Abuse Patient Records regulations: The Federal rules restrict any use of the information to criminally investigate or prosecute any alcohol or drug abuse patient.[facility] HospitalIn the event this information is protected by the Federal Confidentiality of Alcohol and Drug Abuse Patient Records regulations: The Federal rules restrict any use of the information to criminally investigate or prosecute any alcohol or drug abuse patient.[facility] HospitalIn the event this information is protected by the Federal Confidentiality of Alcohol and Drug Abuse Patient Records regulations: The Federal rules restrict any use of the information to criminally investigate or prosecute any alcohol or drug abuse patient.[facility] HospitalIn the event this information is protected by the Federal Confidentiality of Alcohol and Drug Abuse Patient Records regulations: The Federal rules restrict any use of the information to criminally investigate or prosecute any alcohol or drug abuse patient.[facility] HospitalIn the event this information is protected by the Federal Confidentiality of Alcohol and Drug Abuse Patient Records regulations: The Federal rules restrict any use of the information to criminally investigate or prosecute any alcohol or drug abuse patient.[facility] HospitalIn the event this information is protected by the Federal Confidentiality of Alcohol and Drug Abuse Patient Records regulations: The Federal rules restrict any use of the information to criminally investigate or prosecute any alcohol or drug abuse patient.[facility] HospitalIn the event this information is protected by the Federal Confidentiality of Alcohol and Drug Abuse Patient Records regulations: The Federal rules restrict any use of the information to criminally investigate or prosecute any alcohol or drug abuse patient.[facility] HospitalIn the event this information is protected by the Federal Confidentiality of Alcohol and Drug Abuse Patient Records regulations: The Federal rules restrict any use of the information to criminally investigate or prosecute any alcohol or drug abuse patient.[facility] HospitalIn the event this information is protected by the Federal Confidentiality of Alcohol and Drug Abuse Patient Records regulations: The Federal rules restrict any use of the information to criminally investigate or prosecute any alcohol or drug abuse patient.[facility] HospitalIn the event this information is protected by the Federal Confidentiality of Alcohol and Drug Abuse Patient Records regulations: The Federal rules restrict any use of the information to criminally investigate or prosecute any alcohol or drug abuse patient.[facility] HospitalIn the event this information is protected by the Federal Confidentiality of Alcohol and Drug Abuse Patient Records regulations: The Federal rules restrict any use of the information to criminally investigate or prosecute any alcohol or drug abuse patient.[facility] HospitalIn the event this information is protected by the Federal Confidentiality of Alcohol and Drug Abuse Patient Records regulations: The Federal rules restrict any use of the information to criminally investigate or prosecute any alcohol or drug abuse patient.[facility] HospitalIn the event this information is protected by the Federal Confidentiality of Alcohol and Drug Abuse Patient Records regulations: The Federal rules restrict any use of the information to criminally investigate or prosecute any alcohol or drug abuse patient.[facility] HospitalIn the event this information is protected by the Federal Confidentiality of Alcohol and Drug Abuse Patient Records regulations: The Federal rules restrict any use of the information to criminally investigate or prosecute any alcohol or drug abuse patient.[facility] HospitalIn the event this information is protected by the Federal Confidentiality of Alcohol and Drug Abuse Patient Records regulations: The Federal rules restrict any use of the information to criminally investigate or prosecute any alcohol or drug abuse patient.[facility] HospitalIn the event this information is protected by the Federal Confidentiality of Alcohol and Drug Abuse Patient Records regulations: The Federal rules restrict any use of the information to criminally investigate or prosecute any alcohol or drug abuse patient.[facility] HospitalIn the event this information is protected by the Federal Confidentiality of Alcohol and Drug Abuse Patient Records regulations: The Federal rules restrict any use of the information to criminally investigate or prosecute any alcohol or drug abuse patient.[facility] HospitalIn the event this information is protected by the Federal Confidentiality of Alcohol and Drug Abuse Patient Records regulations: The Federal rules restrict any use of the information to criminally investigate or prosecute any alcohol or drug abuse patient.[facility] HospitalIn the event this information is protected by the Federal Confidentiality of Alcohol and Drug Abuse Patient Records regulations: The Federal rules restrict any use of the information to criminally investigate or prosecute any alcohol or drug abuse patient.[facility] HospitalIn the event this information is protected by the Federal Confidentiality of Alcohol and Drug Abuse Patient Records regulations: The Federal rules restrict any use of the information to criminally investigate or prosecute any alcohol or drug abuse patient.[facility] HospitalIn the event this information is protected by the Federal Confidentiality of Alcohol and Drug Abuse Patient Records regulations: The Federal rules restrict any use of the information to criminally investigate or prosecute any alcohol or drug abuse patient.[facility] HospitalIn the event this information is protected by the Federal Confidentiality of Alcohol and Drug Abuse Patient Records regulations: The Federal rules restrict any use of the information to criminally investigate or prosecute any alcohol or drug abuse patient.[facility] HospitalIn the event this information is protected by the Federal Confidentiality of Alcohol and Drug Abuse Patient Records regulations: The Federal rules restrict any use of the information to criminally investigate or prosecute any alcohol or drug abuse patient.[facility] HospitalIn the event this information is protected by the Federal Confidentiality of Alcohol and Drug Abuse Patient Records regulations: The Federal rules restrict any use of the information to criminally investigate or prosecute any alcohol or drug abuse patient.[facility] HospitalIn the event this information is protected by the Federal Confidentiality of Alcohol and Drug Abuse Patient Records regulations: The Federal rules restrict any use of the information to criminally investigate or prosecute any alcohol or drug abuse patient.[facility] HospitalIn the event this information is protected by the Federal Confidentiality of Alcohol and Drug Abuse Patient Records regulations: The Federal rules restrict any use of the information to criminally investigate or prosecute any alcohol or drug abuse patient.[facility] HospitalIn the event this information is protected by the Federal Confidentiality of Alcohol and Drug Abuse Patient Records regulations: The Federal rules restrict any use of the information to criminally investigate or prosecute any alcohol or drug abuse patient.[facility] HospitalIn the event this information is protected by the Federal Confidentiality of Alcohol and Drug Abuse Patient Records regulations: The Federal rules restrict any use of the information to criminally investigate or prosecute any alcohol or drug abuse patient.[facility] HospitalIn the event this information is protected by the Federal Confidentiality of Alcohol and Drug Abuse Patient Records regulations: The Federal rules restrict any use of the information to criminally investigate or prosecute any alcohol or drug abuse patient.[facility] HospitalIn the event this information is protected by the Federal Confidentiality of Alcohol and Drug Abuse Patient Records regulations: The Federal rules restrict any use of the information to criminally investigate or prosecute any alcohol or drug abuse patient.[facility] HospitalIn the event this information is protected by the Federal Confidentiality of Alcohol and Drug Abuse Patient Records regulations: The Federal rules restrict any use of the information to criminally investigate or prosecute any alcohol or drug abuse patient.[facility] HospitalIn the event this information is protected by the Federal Confidentiality of Alcohol and Drug Abuse Patient Records regulations: The Federal rules restrict any use of the information to criminally investigate or prosecute any alcohol or drug abuse patient.[facility] HospitalIn the event this information is protected by the Federal Confidentiality of Alcohol and Drug Abuse Patient Records regulations: The Federal rules restrict any use of the information to criminally investigate or prosecute any alcohol or drug abuse patient.[facility] HospitalIn the event this information is protected by the Federal Confidentiality of Alcohol and Drug Abuse Patient Records regulations: The Federal rules restrict any use of the information to criminally investigate or prosecute any alcohol or drug abuse patient.[facility] HospitalIn the event this information is protected by the Federal Confidentiality of Alcohol and Drug Abuse Patient Records regulations: The Federal rules restrict any use of the information to criminally investigate or prosecute any alcohol or drug abuse patient.[facility] HospitalIn the event this information is protected by the Federal Confidentiality of Alcohol and Drug Abuse Patient Records regulations: The Federal rules restrict any use of the information to criminally investigate or prosecute any alcohol or drug abuse patient.[facility] HospitalIn the event this information is protected by the Federal Confidentiality of Alcohol and Drug Abuse Patient Records regulations: The Federal rules restrict any use of the information to criminally investigate or prosecute any alcohol or drug abuse patient.[facility] HospitalIn the event this information is protected by the Federal Confidentiality of Alcohol and Drug Abuse Patient Records regulations: The Federal rules restrict any use of the information to criminally investigate or prosecute any alcohol or drug abuse patient.[facility] HospitalIn the event this information is protected by the Federal Confidentiality of Alcohol and Drug Abuse Patient Records regulations: The Federal rules restrict any use of the information to criminally investigate or prosecute any alcohol or drug abuse patient.[facility] HospitalIn the event this information is protected by the Federal Confidentiality of Alcohol and Drug Abuse Patient Records regulations: The Federal rules restrict any use of the information to criminally investigate or prosecute any alcohol or drug abuse patient.[facility] HospitalIn the event this information is protected by the Federal Confidentiality of Alcohol and Drug Abuse Patient Records regulations: The Federal rules restrict any use of the information to criminally investigate or prosecute any alcohol or drug abuse patient.[facility] HospitalIn the event this information is protected by the Federal Confidentiality of Alcohol and Drug Abuse Patient Records regulations: The Federal rules restrict any use of the information to criminally investigate or prosecute any alcohol or drug abuse patient.[facility] HospitalIn the event this information is protected by the Federal Confidentiality of Alcohol and Drug Abuse Patient Records regulations: The Federal rules restrict any use of the information to criminally investigate or prosecute any alcohol or drug abuse patient.[facility] HospitalIn the event this information is protected by the Federal Confidentiality of Alcohol and Drug Abuse Patient Records regulations: The Federal rules restrict any use of the information to criminally investigate or prosecute any alcohol or drug abuse patient.[facility] HospitalIn the event this information is protected by the Federal Confidentiality of Alcohol and Drug Abuse Patient Records regulations: The Federal rules restrict any use of the information to criminally investigate or prosecute any alcohol or drug abuse patient.[facility] HospitalIn the event this information is protected by the Federal Confidentiality of Alcohol and Drug Abuse Patient Records regulations: The Federal rules restrict any use of the information to criminally investigate or prosecute any alcohol or drug abuse patient.[facility] HospitalIn the event this information is protected by the Federal Confidentiality of Alcohol and Drug Abuse Patient Records regulations: The Federal rules restrict any use of the information to criminally investigate or prosecute any alcohol or drug abuse patient.[facility] HospitalIn the event this information is protected by the Federal Confidentiality of Alcohol and Drug Abuse Patient Records regulations: The Federal rules restrict any use of the information to criminally investigate or prosecute any alcohol or drug abuse patient.[facility] HospitalIn the event this information is protected by the Federal Confidentiality of Alcohol and Drug Abuse Patient Records regulations: The Federal rules restrict any use of the information to criminally investigate or prosecute any alcohol or drug abuse patient.[facility] HospitalIn the event this information is protected by the Federal Confidentiality of Alcohol and Drug Abuse Patient Records regulations: The Federal rules restrict any use of the information to criminally investigate or prosecute any alcohol or drug abuse patient.[facility] HospitalIn the event this information is protected by the Federal Confidentiality of Alcohol and Drug Abuse Patient Records regulations: The Federal rules restrict any use of the information to criminally investigate or prosecute any alcohol or drug abuse patient.[facility] HospitalIn the event this information is protected by the Federal Confidentiality of Alcohol and Drug Abuse Patient Records regulations: The Federal rules restrict any use of the information to criminally investigate or prosecute any alcohol or drug abuse patient.[facility] HospitalIn the event this information is protected by the Federal Confidentiality of Alcohol and Drug Abuse Patient Records regulations: The Federal rules restrict any use of the information to criminally investigate or prosecute any alcohol or drug abuse patient.[facility] HospitalIn the event this information is protected by the Federal Confidentiality of Alcohol and Drug Abuse Patient Records regulations: The Federal rules restrict any use of the information to criminally investigate or prosecute any alcohol or drug abuse patient.[facility] HospitalIn the event this information is protected by the Federal Confidentiality of Alcohol and Drug Abuse Patient Records regulations: The Federal rules restrict any use of the information to criminally investigate or prosecute any alcohol or drug abuse patient.[facility] HospitalIn the event this information is protected by the Federal Confidentiality of Alcohol and Drug Abuse Patient Records regulations: The Federal rules restrict any use of the information to criminally investigate or prosecute any alcohol or drug abuse patient.[facility] HospitalIn the event this information is protected by the Federal Confidentiality of Alcohol and Drug Abuse Patient Records regulations: The Federal rules restrict any use of the information to criminally investigate or prosecute any alcohol or drug abuse patient.[facility] HospitalIn the event this information is protected by the Federal Confidentiality of Alcohol and Drug Abuse Patient Records regulations: The Federal rules restrict any use of the information to criminally investigate or prosecute any alcohol or drug abuse patient.[facility] HospitalIn the event this information is protected by the Federal Confidentiality of Alcohol and Drug Abuse Patient Records regulations: The Federal rules restrict any use of the information to criminally investigate or prosecute any alcohol or drug abuse patient.[facility] HospitalIn the event this information is protected by the Federal Confidentiality of Alcohol and Drug Abuse Patient Records regulations: The Federal rules restrict any use of the information to criminally investigate or prosecute any alcohol or drug abuse patient.[facility] HospitalIn the event this information is protected by the Federal Confidentiality of Alcohol and Drug Abuse Patient Records regulations: The Federal rules restrict any use of the information to criminally investigate or prosecute any alcohol or drug abuse patient.[facility] HospitalIn the event this information is protected by the Federal Confidentiality of Alcohol and Drug Abuse Patient Records regulations: The Federal rules restrict any use of the information to criminally investigate or prosecute any alcohol or drug abuse patient.[facility] HospitalIn the event this information is protected by the Federal Confidentiality of Alcohol and Drug Abuse Patient Records regulations: The Federal rules restrict any use of the information to criminally investigate or prosecute any alcohol or drug abuse patient.[facility] HospitalIn the event this information is protected by the Federal Confidentiality of Alcohol and Drug Abuse Patient Records regulations: The Federal rules restrict any use of the information to criminally investigate or prosecute any alcohol or drug abuse patient.[facility] HospitalIn the event this information is protected by the Federal Confidentiality of Alcohol and Drug Abuse Patient Records regulations: The Federal rules restrict any use of the information to criminally investigate or prosecute any alcohol or drug abuse patient.[facility] HospitalIn the event this information is protected by the Federal Confidentiality of Alcohol and Drug Abuse Patient Records regulations: The Federal rules restrict any use of the information to criminally investigate or prosecute any alcohol or drug abuse patient.[facility] HospitalIn the event this information is protected by the Federal Confidentiality of Alcohol and Drug Abuse Patient Records regulations: The Federal rules restrict any use of the information to criminally investigate or prosecute any alcohol or drug abuse patient.[facility] HospitalIn the event this information is protected by the Federal Confidentiality of Alcohol and Drug Abuse Patient Records regulations: The Federal rules restrict any use of the information to criminally investigate or prosecute any alcohol or drug abuse patient.[facility] HospitalIn the event this information is protected by the Federal Confidentiality of Alcohol and Drug Abuse Patient Records regulations: The Federal rules restrict any use of the information to criminally investigate or prosecute any alcohol or drug abuse patient.[facility] HospitalIn the event this information is protected by the Federal Confidentiality of Alcohol and Drug Abuse Patient Records regulations: The Federal rules restrict any use of the information to criminally investigate or prosecute any alcohol or drug abuse patient.[facility] Reason for Visit (unrecogniz ed section and content) Reason Comments Physical Therapy Specialty Diagnoses / Procedures Referred By Contac t Referred To Contact [facility] Diagnoses Neck pain Procedures PHYSICAL THERAPY EVALUATION HIGH COMPLEX 45 MINS Jason Francois, ARIAN.TOOL HONING MACHINE SET UP OPERATOR [address] [place] [address] Phone: tel: fax: [facility] [address] [place] [phone] Referral ID Status Reason Start Date Expiration Date Visits Requested Visits Authorized [id number] Authorized PCP Requested Referral Auto-Generate d Referral 12/08/2024 12/08/2025 99 99 Reason Comments PT Discharge Specialty Diagnoses / Procedures Referred By Contac t Referred To Contact [facility] Diagnoses Spinal stenosis of lumbar region, unspecified whether neurogenic claudication present Procedures CONSULT TO PHYSICAL THERAPY PHYSICAL THERAPY EVALUATION HIGH COMPLEX 45 MINS Jason Francois, ENTERPRISE INFRASTRUCTURE ARCHITECT.TOOL HONING MACHINE SET UP OPERATOR [address] [place] [address] [facility] [place] [address] [place] [address] Referral ID Status Reason Start Date Expiration Date Visits Requested Visits Authorized [id number] Authorized PCP Requested Referral Auto-Generate d Referral 10/10/2022 10/10/2023 99 99 Reason Comments PT Progress Note Reason Comments Establish Care Reason Comments Results Reason Comments Back Pain Reason Comments PT Eval Specialty Diagnoses / Procedures Referred By Contac t Referred To Contact [facility] Diagnoses Spinal stenosis of lumbar region, unspecified whether neurogenic claudication present Procedures CONSULT TO PHYSICAL THERAPY PHYSICAL THERAPY EVALUATION HIGH COMPLEX 45 MINS Jsaon Francois APRN.TOOL HONING MACHINE SET UP OPERATOR [address] [place] [address] [facility] [place] [address] [place] [address] Reason Comments Fatigue Patient reports incr eased fatigue over at least last 2 weeks- concerned iron may be low again Reason Comments wound on finger Reason Comments Results Urine Cx mixed. Reason Comments sleep and weight issues Reason Comments Patient Update Reason Comments Recheck Weight loss medicati on Reason Comments Patient Education Assessment Specialty Diagnoses / Procedures Referred By Clay t Referred To Contact [facility] Diagnoses Obesity, Class II, BMI 35-39.9 NEVA (obstructive sleep apnea) Blood glucose elevated Hypertension, essential Ulcerative colitis without complications, unspecified location (HCC) Chronic kidney disease, stage 2 (mild) Procedures CONSULT TO NUTRITION THERAPY MEDICAL NUTRITION ASSMT&IVNTJ INDIV EACH 15 [place] MEDICAL NUTRITION ASSMT&IVNTJ INDIV EACH 15 [place] MEDICAL NUTRITION ASSMT&IVNTJ INDIV EACH 15 [place] MEDICAL NUTRITION ASSMT&IVNTJ INDIV EACH 15 [place] Christina Anthony, ARIAN.TOOL HONING MACHINE SET UP OPERATOR [address] [place] [address] [facility] [address] [place] [address] Referral ID Status Reason Start Date Expiration Date V isits Requested Visits Authorized [id number] Closed PCP Requested Referral 12/27/2022 12/27/2023 1 1 Reason Comments Patient Education Reassessment Reason Onset Date Comments Refill Request 03/19/2023 Reason Comments F/U [address] Reason [address] scan done 04/16 Reason Comments Follow Up Reason Comments Follow Up Edema, lower back pa in Reason Comments Med Change Request Reason Comments Edema Trish legs Reason Comments Finger Pain Left fingers painful and swollen Reason Comments Hand Pain Left swollen, stiffn ess Reason Comments pain tirsh feet Difficulty to walk, achilles tendonitis in left foot, requesting something for pain, had Cortisone inj in past. Reason Comments F/U 3 Month Reason Comments Acute Visit R shoulder pain x2 d ays; worse when taking a deep breath Reason Comments Recheck 1 week follow up Reason Comments Patient Question Reason Comments Refill Request Reason Comments F/U 3 Month Reason Comments Spirometry Specialty Diagnoses / Procedures Referred By Contac t Referred [facility] Diagnoses Chronic obstructive pulmonary disease, unspecified COPD type (HCC) Procedures LUNG DIFFUSION CAPACITY (DLCO) DIFFUSING CAPACITY Carolyn Ramirez, ARIAN.TOOL HONING MACHINE SET UP OPERATOR [address] [place] [address] [address] Referral ID Status Reason Start Date Expiration Date V isits Requested Visits Authorized [id number] Closed Auto-Generate d Referral 12/03/2023 01/01/2025 1 1 Specialty Diagnoses / Procedures Referred By Contac t Referred To [facility] Diagnoses Chronic obstructive pulmonary disease, unspecified COPD type (HCC) Procedures SPIROMETRY WITH DILATOR IF OBSTRUCTED BRNCDILAT RSPSE SPMTRY PRE&POST-BRNCDILAT ADMN Carolyn Ramirez, ARIAN.TOOL HONING MACHINE SET UP OPERATOR [address] [place] [address] [address] Referral ID Status Reason Start Date Expiration Date V isits Requested Visits Authorized [id number] Closed Auto-Generate d Referral 12/03/2023 01/01/2025 1 1 Specialty Diagnoses / Procedures Referred By Contac t Referred To Contact [facility] Diagnoses Chronic obstructive pulmonary disease, unspecified COPD type (HCC) Procedures LUNG VOLUMES Carolyn Ramirez, ENTERPRISE INFRASTRUCTURE ARCHITECT.TOOL HONING MACHINE SET UP OPERATOR [address] [place] [address] [id number] Referral ID Status Reason Start Date Expiration Date V isits Requested Visits Authorized [id number] Closed Auto-Generate d Referral 12/03/2023 01/01/2025 1 1 Reason Comments New Patient COPD COPD Reason Comments Orders Reason Comments Patient Request Reason Comments nerve pain in legs and back Reason Comments Follow Up Asthma COPD Reason Comments Fatigue Reason Comments [facility] f/up for b/p Reason Comments Patient Question Blood clot follow up questions Reason Comments Patient Update: Eliquis Reason Onset Date Comments Results 07/09/2024 Reason Comments Medication Problem Reason Onset Date Comments Population Health Navigation Outreach [facility] Reason Comments Anticoagulation Reason Comments Orders poc protime Reason Comments Future Appointment Reason Comments Follow Up Trish leg pain rt is w orse. Had to walk and lift legs up goes up into thigh and groin area Reason Onset Date Comments Results 09/11/2024 Reason Comments Acute Visit Strong smelling urin e x1 week, urinary freq, swelling in trish legs Reason Comments Pain right leg x 2 months Reason Onset Date Comments xray and ultrasound results 10/08/2024 Reason Comments Clinical Update Reason Comments Radiology NM Specialty Diagnoses / Procedures Referred By Contac t Referred To Contact [facility] Diagnoses Calculus of gallbladder without cholecystitis without obstruction Nausea Procedures NM HEPATOBILIARY W EF AND/OR RX HEPATOBIL SYST IMAG INC GB W/PHARMA INTERVENJ Gray Quintana, DO [address] [place] [address] Phone: tel: fax: [facility] [address] [place] [address] Phone: tel: Referral ID Status Reason Start Date Expiration Date V isits Requested Visits Authorized [id number] Closed Auto-Generate d Referral 10/08/2024 11/07/2025 1 1 Reason Comments Consult Specialty Diagnoses / Procedures Referred By Contac t Referred To Contact General Surgery Diagnoses Calculus of gallbladder without cholecystitis without obstruction Nausea Procedures CONSULT TO GENERAL SURGERY OFFICE/OUTPATIENT [facility] 60 MINUTES Gray Quintana, DO [address] [place] [address] Phone: tel: fax: Referral ID Status Reason Start Date Expiration Date V isits Requested Visits Authorized [id number] Closed PCP Requested Referral 10/08/2024 10/08/2025 1 1 Reason Comments Back Pain Specialty Diagnoses / Procedures Referred By Contac t Referred To Contact Pain Management Diagnoses Osteoarthritis of spine with radiculopathy, lumbar region Procedures CONSULT TO PAIN MGT OFFICE/OUTPATIENT [facility] 60 MINUTES Gray Quintana, DO [address] [place] [address] Phone: tel: fax: Referral ID Status Reason Start Date Expiration Date V isits Requested Visits Authorized [id number] Closed PCP Requested Referral 10/08/2024 10/08/2025 1 1 Reason Onset Date Comments Medication Problem 09/11/2024 Specialty Diagnoses / Procedures Referred By Contac t Referred To [facility] Diagnoses Mild intermittent asthma without complication (HCC) Procedures NITRIC OXIDE, EXHALED NITRIC OXIDE GAS DETERMINATION Yan Montaño MD [address] [place] [address] Phone: tel: fax: [facility] [place] [address] [place] [phone] Referral ID Status Reason Start Date Expiration Date V isits Requested Visits Authorized [id number] Closed Auto-Generate d Referral 05/26/2024 06/25/2025 1 1 Reason Comments Established Patient 6 month follow up as thma-COPD overlap syndrome Reason Comments Results Lumbar MRI Reason Onset Date Comments Population Health Navigation Outreach 11/25/2024 [facility] Reason Comments Neck Pain Reason Comments Neck Pain Reason Comments Patient Request Reason Comments PT Eval Specialty Diagnoses / Procedures Referred By Clay t Referred To Contact [facility] Diagnoses Neck pain Procedures CONSULT TO PHYSICAL THERAPY PHYSICAL THERAPY EVALUATION HIGH COMPLEX 45 MINS Jason Francois APRN.TOOL HONING MACHINE SET UP OPERATOR [address] [place] [address] Phone: tel: fax: [facility] [address] [place] [phone] Reason Onset Date Comments Population Health Navigation Outreach 12/29/2024 [facility]SA Reason Comments Patient Update Reschedule Injection Procedure Reason Comments urination symptoms Reason Comments UTI Symptoms continue; b urning and itching, frequency, retention Reason Onset Date Comments Results 01/14/2025 Reason Onset Date Comments Opened In Error 01/15/2025 Reason Onset Date Comments Population Health Navigation Outreach 01/15/2025 [facility] INFORMATION SOURCE (unrecogn ized section and content) DATE CREATED AUTHOR 01/07/2024 [facility] ([place]) DATE CREATED AUTHOR AUTHOR'S ORGANIZ ATION 07/28/2024 [facility] DATE CREATED AUTHOR AUTHOR'S ORGANIZ ATION 07/29/2024 [facility] DATE CREATED AUTHOR AUTHOR'S ORGANIZ ATION 01/14/[address] [facility] DATE CREATED AUTHOR AUTHOR'S ORGANIZ ATION 01/17/2025 [facility] FOR RECORDS PERTAINING TO PATIENTS WHO ARE OR HAVE BEEN ENROLLED IN A CHEMICAL DEPENDENCY/SUBSTANCEABUSE PROGRAM, SOME INFORMATION MAY BE OMITTED. This clinical summary was aggregated from multiple sources. Caution should be exercised in using it in the provision of clinical care. This summary normalizes information from multiple sources, and as a consequence, information in this document may materially change the coding, format and clinical context of patient data. In addition, data may be omitted in some cases. CLINICAL DECISIONS SHOULD BE BASED ON THE PRIMARY CLINICAL RECORDS. [employer] provides no warranty or guarantee of the accuracy or completeness of information in this document.
[2025-01-17 10:47] LABS: Hematocrit 34.5 % (37-47); Hemoglobin 11.2 g/dL (12.0-15.0); Immature Granulocytes Count 0.030 X10^3/uL (0.0-0.0); Mean Corp Hgb Conc 32.5 g/dL (32-36); Mean Corpuscular Volume 90.3 fL (81-99); Mean Platelet Vol. 9.6 fl (6.2-12.0); NRBC Flagged by Analyzer 0 % (0-5); Platelet Count 261 K/mm3 (150-450); RBC Distribution Width CV 13.9 % (11.6-14.6); RBC Distribution Width SD 46.6 fl (35.1-43.9); Red Blood Count 3.82 M/mm3 (4.2-5.4); White Blood Count 7.8 K/mm3 (4.4-11.0)
[2025-01-17 11:11] LABS: Anion Gap 15 (5-15); BUN 21 mg/dL (4-19); BUN/Creat Ratio 16.4 RATIO (10-20); Calcium,Total 8.6 mg/dL (7.6-11.0); Carbon Dioxide 21.7 mmol/L (21.0-32.0); Chloride 103 mmol/L (98-108); Estimated Creatinine Clearance 45.71 ml/min (50-250); Glucose 119 mg/dL (70-99); Potassium 3.3 mmol/L (3.3-5.1)
[2025-01-17 12:49] VITALS: BP 102/56; PULSE 73; RESP 14; TEMP 36.9; O2SAT 97
== END 2025-01-17 12:50 | disposition home or self-care (01) ==
PROVIDERS: Emergency Provider Emergency Medicine; PCP Student in an Organized Health Care Education/Training Program; Visit Provider Emergency Medicine
DX: K52.1 Toxic gastroenteritis and colitis (principal); T36.95XA Adverse effect of unspecified systemic antibiotic, initial encounter; K57.31 Diverticulosis of large intestine without perforation or abscess with bleeding; I10 Essential (primary) hypertension; N28.9 Disorder of kidney and ureter, unspecified; Z87.891 Personal history of nicotine dependence; Z79.899 Other long term (current) drug therapy
CPT/HCPCS: 80048; 85025; 99283; A4216

== ENCOUNTER 2025-01-25 10:20 | Emergency (ER) | payer MEDICARE, OTHER, SELFPAY ==
[2025-01-25 10:20] VITALS: BP 149/102; PULSE 104; RESP 22; TEMP 36.4; O2SAT 93; BMI 39.8
--- NOTE | 2025-01-25 10:31 | RAD_ITS ---
PROCEDURE: HAND MIN 3 VIEWS 01/25/2025 REASON FOR EXAM: ATRAUMATIC PAIN AND SWELLING TECHNIQUE: Procedure Code: DARIUS Modality: DX Procedure: HAND MIN 3 VIEWS Laterality: Left. COMPARISON: None. FINDINGS: Bones: No acute bony abnormalities. Joints: Joints are unremarkable. Soft tissues: No soft tissue abnormalities. RAD/Hand Min 3 Views IMPRESSION: No acute osseous abnormalities. Reading Location: [id number]
--- NOTE | 2025-01-25 10:33 | EDS_ITS ---
HPI History of Present Illness HPI Narrative: 74-year-old female history of hypertension. Recent diverticulitis on antibiotics finished last a week ago. Patient has atraumatic swelling pain and redness to her left lateral hand. Does not believe she had any injury. This is started yesterday. She denies any fever or chills. Chief Complaint: Upper Extremity Injury Informant: patient Occured/Mechanism Mechanism/Context: No injury and No blunt trauma Onset/Context/Timing Onset: Today and Yesterday Context: Gradual Onset Timing: Continuous Quality of Pain: Dull and Aching Current Severity: Mild Maximum Severity: Mild Associated Symptoms Associated Symptoms: Negative for Parasthesia, Weakness or Loss of Funtion Narrative Narrative: 74-year-old with left hand pain and swelling without any known trauma. Prior similar symptoms: No Recent Illness/Hospitalization: No PFSH PFSH Medical History Lower extremity edema Anxiety Depression Osteoporosis Kidney disease Hepatitis Former smoker On home oxygen therapy Asthma Chest pain Ulcerative colitis HTN (hypertension) History of hypertension Home Medications ?Medication ?Instructions ?Recorded ?Last Taken ?Type losartan 50 mg-hydrochlorothiazide 1 tab PO DAILY 11/26 06/18 Unknown History 12.5 mg tablet losartan 50 mg tablet 50 mg PO HS 01/02/22 Unknown History atorvastatin 40 mg tablet 40 mg PO QHS 1 month #30 tab s 06/13/24 Unknown Rx carvedilol 6.25 mg tablet 6.25 mg PO BIDCM 30 days #60 tabs 06/13/24 Unknown Rx ciprofloxacin HCl 500 mg tablet 500 mg PO BID 7 days # 14 tabs 01/15/25 Unknown Rx (Cipro) hydrocodone-acetaminophen 5-325mg 1 tab PO Q6H PRN PRN Pain 3 days 01/15/25 Unknown Rx 5mg-325mg #10 TABLETS metronidazole 500 mg tablet 500 mg PO BID 7 days #14 t abs 01/15/25 Unknown Rx ondansetron 4 mg disintegrating 4 mg PO Q6H PRN nausea and 01/15/25 Unknown Rx tablet vomiting #10 tabs cephalexin 500 mg capsule 500 mg PO Q6 7 days #28 CAPS ULES 01/25/25 Unknown Rx Allergy/AdvReac Type Severity Reaction Status Date / Time No Known Allergies Allergy Verified 01/17/25 10:01 Family History Father Colon cancer Aunt Colon cancer Breast cancer Surgical History S/P ORIF (open reduction internal fixation) fracture Hx of shoulder surgery Hx of lumbar discectomy History of mandibular surgery History of tonsillectomy History of back surgery Social History Smoking Status: Former smoker Tobacco: How many years used: 40 alcohol intake: never substance use type: does not use ROS ROS ED ROS Narrative Denies recent illness. 1 to 2 weeks ago has had diverticulitis. Constitutional Constitutional ED: Denies chills or fever(s) Eyes Eyes: Denies blurry vision ENT ENT ED: Denies ear pain Cardiovascular Cardiovascular: Denies chest pain Respiratory/Chest Respiratory/Chest: Denies cough Genitourinary Genitourinary ED: Denies dysuria Musculoskeletal Musculoskeletal: Denies back pain Integumentary Denies abscess Neurologic Neurologic: Denies headache(s) Psychiatric Psychiatric: Denies anxiety Endocrine Endocrinology: Denies cold intolerance Hematologic/Lymphatic Hematologic/Lymphatic: Denies easy bleeding, easy bruising or lymphadenopathy Allergic/Immunologic Allergic/Immunologic ED: Denies mouth swelling, tongue swelling or urticaria EXAM Physical Exam Narrative Exam Narrative: 74-year-old female vital signs stable afebrile does not look septic toxic. Sitting upright in bed. H EENT exam pupils round react light. Mytrex membranes. Neck nontender no lymphadenopathy. Lungs clear to auscultation. Heart regular rhythm no murmur rate about 100. Chest wall ribs nontender. Abdomen soft nontender. No peritoneal signs. Moving all 4 extremities. Left hand dorsal left hand medial aspect over the ring and small finger dorsum of the palm there is some swelling consistent with cellulitis. She is able to do full flexion extension. There is no tenosynovitis. There is no signs of a bite or an insect sting. Does not go up into the forearm. There is no axillary lymphadenopathy. She has full flexion extension of the wrist. Clinically think this is cellulitis. There is no history or signs of trauma. Const Vital Signs: 01/25/25 10:20 Temperature 97.5 F L Temperature Source Temporal Pulse Rate 104 H Respiratory Rate 22 H Blood Pressure 149/102 H Blood Pressure Mean 117 Pulse Ox 93 Oxygen Delivery Method Room Air Positive well nourished and well developed; Negative for cachectic, contractures or unkempt General Appearance ED: well developed and NAD; Negative for unkempt, cachectic, contractures, cyanotic or diaphoretic Nutritional Appearance: Negative for cachectic HEENT Reports moist mucous membranes normocephalic and atraumatic Eyes PERRL and EOMs intact bilaterally Neck full ROM and supple Chest Wall inspection of chest normal and palpation of chest normal Resp normal respiratory effort and clear to auscultation bilaterally Cardio regular rate, regular rhythm, S1 normal heart sound, S2 normal heart sound and no murmurs GI non-tender, non-distended and no masses Auscultation: normoactive bowel sounds Palpation: soft; Negative for tender, guarding or rebound tenderness present Back/Spine no CVA tenderness General Back: Negative for CVA tenderness Cervical Spine: Negative for cervical spine tenderness Thoracic Spine / Upper Back: Negative for thoracic spinal tenderness Lumbar Spine / Lower Back: Negative for lumbar spinal tenderness Extremity full ROM; Negative for normal to inspection Extremity Narrative: Left hand dorsum mild swelling. Cellulitis. Does not involve the forearm. There is no axillary lymphadenopathy. Full range of motion. Appears to be an early cellulitis. General Extremety ED: Yes edema General Extremity: edema Neuro oriented x3, CN's II-XII intact bilaterally, moves all extremities and no focal motor deficits Sensorium / Orientation: alert, oriented to person, oriented to place and oriented to time Motor Exam: strength 5/5 throughout Psych mental status grossly normal Appearance: Negative for unkempt Attitude: No agitated Mood & Affect: Negative for depressed, anxious or tearful Skin General Skin Exam: Negative for petechiae Lesions: no lesions Rashes: No no rashes Trauma: no lacerations or abrasions MDM MDM MDM Narrative Medical decision making narrative: 74-year-old head is atraumatic left hand pain and swelling I think this is an e vinh cellulitis soft tissue skin infection she will be started on Keflex. I am obtaining an x-ray of the hand to rule out fracture which there is no history of. Repeat exam patient is doing well at 11:05 AM. I went over the x-ray with her and her son who is at bedside now. Went over the discussion of left hand cellulitis. She will be placed on Keflex 4 times a day for 7 days she knows to return if worse. Follow-up with her doctor if not improving. She and her son are comfortable with the plan. She does not need to be admitted at this time. History & Record Review Discussion w/independent historian: Patient Additional record(s) reviewed:: Prior inpatient record, Prior ED visit and Prior labs Lab Data Attestation: I reviewed the patient's lab results. Radiography Diagnostic Testing: Left hand x-ray, 3 views, interpreted by myself and the radiologist shows chronic changes some arthritis. No fracture. No dislocation. No subcu air. Discharge Plan Triage Chief Complaint: Upper Extremity Injury ED Provider: Jc Crouch Dx/Rx/DC Orders Clinical Impression: Cellulitis of hand Instructions: ED Cellulitis Prescriptions: New cephalexin 500 mg capsule 500 mg PO Q6 7 Days Qty: 28 0RF No Action losartan-hydrochlorothiazide 50-12.5 mg tablet 1 tab PO DAILY losartan 50 mg tablet 50 mg PO HS ciprofloxacin HCl [Cipro] 500 mg tablet 500 mg PO BID 7 Days Qty: 14 0RF metronidazole 500 mg tablet 500 mg PO BID 7 Days Qty: 14 0RF hydrocodone-acetaminophen 5-325 mg tablet 1 tab PO Q6H PRN PRN (Reason: Pain) 3 Days Qty: 10 0RF ondansetron 4 mg tablet,disintegrating 4 mg PO Q6H PRN (Reason: nausea and vomiting) Qty: 10 0RF carvedilol 6.25 mg Tablet 6.25 mg PO BIDCM 30 Days Qty: 60 2RF Rx Instructions: Hold for heart less than 50 or systolic blood pressure less than 100 mmHg. atorvastatin 40 mg tablet 40 mg PO QHS 30 Days Qty: 30 2RF Primary Care Provider: Gray Quintana Referrals: Gray Quintana, DO [Primary Care Provider] - 3-5 Days if not improving Activity Restrictions/Additional Instructions: There is soft tissue infection of your left hand. The antibiotic Keflex 4 times a day for 7 days. Follow-up with your doctor if not improving or return to emergency department if getting worse. Motrin and/or Tylenol for pain. Ice and elevate the hand to decrease pain and swelling. Print Language: Malaysian Disposition Disposition: Home, Self Care
--- OUTSIDE RECORDS SUMMARY | 2025-01-25 10:40 | XMS RPT_ITS | CCD ---
Author Organization [facility] Care Team Providers Care Ramp Boss Name Role Phone VITALY PIPELINES MANAGER-STATIONS SUPERINTENDENT, JACKIE Primary Care Physician [phone] Mateo PT, Linda Unavailable Unavailable Vitaly SUPERVISOR YARD, SUPERVISOR YARD-C Jackie Primary Care Provider [phone] Dr. Paulie Montaño Attending Provider Dr. Paulie Montaño Referring Provider [phone] Vitaly GARCIA, SUPERVISOR YARD-C Jackie Primary Care Provider [phone] Vitaly GARCIA, SUPERVISOR YARD-C Jackie Referring Provider Dr. Paulie Montaño Attending Provider [phone] Vitaly GARCIA, SUPERVISOR YARD-C Jackie Primary Care Provider [phone] Dr. Paulie Montaño Attending Provider Dr. Paulie Montaño Referring Provider Richard Castro Unavailable Gray Quintana DO Primary Care Provider [phone] GRAY QUINTANA DO Primary Care Physician Vitaly GARCIA, SUPERVISOR YARD-C Jackie Referring Provider Gris GARCIA, SUPERVISOR YARD-C Angie Attending Provider Ronn GARCIA SUPERVISOR YARD-C Yan Primary Care Provider Ronn GARCIA, SUPERVISOR YARD-C Yan Referring Provider Gray Quintana DO Primary Care Provider SHANNAN LOCKHART PA-C Attending Unavailable GRAY QUINTANA DO Primary Care Unavailable SHANNAN LOCKHART PA-C Attending Unavailable QUINTANA DO, GRAY Primary Care Unavailable CARYN FRITZ, DR DOMINIQUE Almanza Attending Liana QUINTANA DO, GRAY Primary Care Unavailable CARYN FRITZ, DR DOMINIQUE Almanza Attending Liana QUINTANA DO, GRAY Primary Care Unavailable Anthony PIPELINES MANAGER.STATIONS SUPERINTENDENT, Christina Carpenter Unavailable [facility] PIPELINES MANAGER.STATIONS SUPERINTENDENTAmelia Unavailable CARYN FRITZ, DR DOMINIQUE Almanza Attending Liana QUINTANA DO, GRAY Primary Care Unavailable QUINTANA DO, GRAY Primary Care Unavailable CARYN FRITZ, DR DOMINIQUE Almanza Attending Liana QUINTANA DO, GRAY Primary Care Unavailable CARYN FRITZ, DR DOMINIQUE Almanza Attending CHRISTINA Castillo Referring Unavailable QUINTANA, GRAY Estella Primary Care Unavailable [facility] PIPELINES MANAGER.STATIONS SUPERINTENDENT, Jean Carlos Barba Unavailable Mariano LANDRUM, Dr. Castellano Primary Care Provider Dr. Jordin Najera DO Emergency Provider [phone] Violet FRITZ, Dr. Kwong Emergency Provider CHRISTINA ANTHONY Referring Unavailabl e WILLIAMS CABRERA Attending Unasavanna ilable QUINTANA, GRAY L Primary Care Unavailable CHERELLE MO Referring Unavailable QUINTANA, GRAY L Primary Care Unavailable YAN MONTAÑO Referring Unavailable QUINTANA, GRAY Estella Primary Care Unavailable DOMINICK HERNANDEZ Attending Unavailable YAN MONTAÑO Referring Unavailable QUINTANA, GRAY Estella Primary Care Unavailable SINDYOBLEJASON Referring Unavailable QUINTANA, GRAY L Primary Care Unavailable KNOBLEJASON Referring Unavailable QUINTANA, GRAY L Primary Care Unavailable KNJASON HYLTON Referring Unavailable QUINTANA, GRAY L Primary Care [...] e QUINTANA, GRAY L Primary Care Unavailable ANTHONY, CHRISTINA ROZ Attending Unavailabl e QUINTANA, GRAY L Primary Care Unavailable CHRISTINA ANTHONY Referring Unavailabl e CHRISTINA ANTHONY Attending Unavailabl e QUINTANA, GRAY L Primary Care Unavailable QUINTANA, GRAY L Primary Care Unavailable YAN MONTAÑO Attending Unavailable QUINTANA, GRAY L Primary Care Unavailable YARELY TIJERINA Attending Unavailable JEFFREY HEDRICK Attending Unavailable JASON FRANCOIS Referring Unavailable QUINTANA, GRAY L Primary Care Unavailable JASON FRANCOIS Referring Unavailable QUINTANA, GRAY L Primary Care Unavailable JASON FRANCOIS Referring Unavailable QUINTANA, GRAY L Primary Care Unavailable JASON FRANCOIS Attending Unavailable QUINTANA, GRAY L Primary Care Unavailable CAROLYN RAMIREZ Referring Unavailable QUINTANA, GRAY L Primary Care Unavailable QUINTANA, GRAY L Primary Care Unavailable CHRISTINA ANTHONY Referring Unavailabl e CHRISTINA ANTHONY Attending Unavailabl e QUINTANA, GRAY L Primary Care Unavailable QUINTANA, GRAY L Primary Care Unavailable MARTÍN WINSLOW Attending Unavailable QUINTANA, GRAY L Referring Unavailable QUINTANA, GRAY L Primary Care Unavailable QUINTANA, GRAY L Referring Unavailable QUINTANA, GRAY L Primary Care Unavailable MADISON TURNER Attending Unavailable QUINTANA, GRAY L Primary Care Unavailable QUINTANA, GRAY L Primary Care Unavailable CHRISTINA ANTHONY Attending Unavailabl JEAN CARLOS Pina Attending Unavailable QUINTANA, GRAY L Primary Care Unavailable QUINTANA, GRAY L Referring Unavailable QUINTANA, GRAY L Primary Care Unavailable QUINTANA, GRAY L Primary Care Unavailable QUINTANA, GRAY L Referring Unavailable BRI MOELLER Referring Unavailable QUINTANA, GRAY L Primary Care Unavailable CAROLYN RAMIREZ Referring Unavailable QUINTANA, GRAY L Primary Care Unavailable CAROLYN RAMIREZ Referring Unavailable YAN MONTAÑO Attending Unavailable QUINTANA, GRAY L Primary Care Unavailable QUINTANA, GRAY L Primary Care Unavailable CHRISTINA ANTHONY Referring Unavailabl e QUINTANA, GRAY L Primary Care Unavailable AMELIA TROTTER Attending Unavailable QUINTANA, GRAY L Primary Care Unavailable QUINTANA, GRAY L Referring Unavailable QUINTANA, GRAY L Primary Care Unavailable QUINTANA, GRAY L Primary Care Unavailable QUINTANA, GRAY L Attending Unavailable CAROLYN RAMIREZ Referring Unavailable QUINTANA, GRAY L Primary Care Unavailable Quintana, Gray Primary Care Unavailable Varghese Lazo Attending Unavailable Louie Dias Attending Unavailable Rosita Alonzo Admitting Unavailable Rosita Alonzo Consulting Unavailable Quintana, Gray Primary Care Unavailable Amador Earl Referring Unavailable Jordin Infante Attending Unavailable Quintana, Gray Primary Care Unavailable Rosita Alonzo Consulting Unavailable Rosita Alonzo Admitting Unavailable Guilherme Brumfield Attending Unavailable QuintanaGray Primary Care Unavailable Louie Dias Consulting Unavailable Rosita Alonzo Attending Unavailable Louie Dias Attending Unavailable Jordin Najera Attending Unavailable Quintana, Gray Primary Care Unavailable Allergies Allergy Classification Reported Allergen(s) Allergy Type Date of Onset Reaction(s) Facility Aminoketones (1 source) buPROPion Drug Allergy 3 [facility] Mold Extract (1 source) Mold Extract Drug Allergy Unknown [facility] (17 sources) Mold Extract Drug Allergy Unknown [facility] (18 sources) seasonal enviromental Allergy to substance typical [facility] (20 sources) buPROPion; Translations: [BUPROPION] Drug Allergy 3 [facility] (20 sources) Aspirin; Translations: [ASPIRIN] Drug Allergy 5 [facility] (20 sources) Ibuprofen; Translations: [IBUPROFEN] Drug Allergy 5 [facility] Medications Current Medications Medication Drug Class(es) Dates Sig (Normalized) Sig (Original) acetaminophen 325 mg / HYDROcodone bitartrate 5 mg oral tablet (8 sources) Opioid Agonist Start: 10-12-2023 End: 01-19-2025 take 1 tablet by mouth every six hours as needed for pain Hydrocodone-Acetamin ophen 5-325 mg tablet Active 1 {tbl} PO EVERY 6 HOURS NEEDED as needed for Pain 10 3 0 January 15, 2025 Diverticulitis of sigmoid colon Start: 04-25-2023 End: 06-11-2024 Hydrocodone-Acetaminophen 5- 325 [...] wheezing, # 18 gram(s), 0 Refill(s), Pharmacy: [facility]/pharmacy #[id number], COVID-19 virus detected, 165.3, cm, 10/21/21 9:54:00 EDT, Height Start Date: 10/21/21 Status: Ordered amoxicillin 500 mg oral capsule (1 source) Penicillin-class Antibacterial Start: 11-02-2021 End: 11-09-2021 amoxicillin 500 mg oral capsule Dose : 500 mg = 1 cap(s), Oral, TID, X 7 day(s), # 21 cap(s), 0 Refill(s), 11/09/21 14:03:00 EDT, Pharmacy: [id number], 165.1, cm, 11/02/21 13:34:00 EDT, Height Start Date: 11/02/21 Stop Date: 11/09/21 Status: Ordered Ascorbic Acid (13 sources) Vitamin C Start: 10-21-2021 Vitamin C qDay, 0 Refill(s) Start Date: 10/21/21 Status: Ordered atorvastatin 40 mg oral tablet (8 sources) HMG-CoA Reductase Inhibitor Start: 06-13-2024 take 1 tablet by mouth at bedtime Atorvastatin 40 mg tablet Active 40 mg PO AT BEDTIME 30 30 2 June 13, 2024 1:00am Start: 06-07-2022 atorvastatin 1 0 mg oral tablet Dose : 10 mg = 1 tab(s), Oral, qDay, # 30 tab(s), 2 Refill(s), Pharmacy: [id number], 162.6, cm, 05/31/22 10:21:00 EST, [...] PO TWICE DAILY WITH MEALS 60 30 June 13, 2024 1:00am Hold for heart less than 50 or systolic blood pressure less than 100 mmHg. cephalexin 500 mg oral capsule (1 source) Cephalosporin Antibacterial Start: 06-23-2021 End: 06-30-2021 cephalexin 500 mg oral capsule Dose : 500 mg = 1 cap(s), Oral, q8h, X 7 day(s), # 21 cap(s), 0 Refill(s), 06/30/21 13:43:00 EST, Pharmacy: [facility], 164.6, cm, 05/31/21 10:46:00 EST, Height, 102.4, kg, 05/31/21 10:46:00 EST, Dosing Weight Start Date: 06/23/21 Stop Date: 06/30/21 Status: Ordered ciprofloxacin 500 mg oral tablet (8 sources) Quinolone Antimicrobial Start: 01-15-2025 End: 01-22-2025 take 1 tablet by mouth twice daily ciprofloxacin HCl (CIPRO) 500 mg tablet Indications: Diverticulitis of sigmoid colon , Hematochezia , Acute diarrhea Take 1 tablet by mouth two times a day for 7 days. 14 tablet 01/15/2025 01/22/2025 Active Start: 04-25-2023 End: 06-11-2024 take 1 tablet by mouth twice daily Ciprofloxacin Hcl 500 mg tablet Discontinued 500 mg PO TWICE A DAY 14 0 April 25, 2023 1:00am June 11, 2024 6:55pm dicyclomine hydrochloride 10 mg oral capsule (14 sources) Anticholinergic Start: 01-19-2025 End: 07-18-2025 take 1 capsule by mouth three times daily as needed dicyclomine (BENTYL) 10 mg capsule Indications: Acute diarrhea , Abdominal discomfort , Nausea Take 1 capsule by mouth three times a day as needed. 90 capsule 1 01/19/2025 07/18/2025 Active Start: 08-25-2019 End: 04-04-2021 take 1 capsule by mouth four times daily Dicyclomine 10 MG capsule Discontinued 10 mg PO 4 TIMES DAILY August 25, 2019 12:00am April 04, 2021 1:57pm Fish Oils (16 sources) Start: 10-13-2020 take [...] 1 tablet by arsalan th once daily. uzdrpzqrtqn-bka-Az [id number] (COSAMIN AVOCA, WITH BOSWELLIA,) 500-500-33.3-70 mg tab (20 sources) End: 10-03-2024 take 1 tablet by mouth twice daily as needed fvvdxwyymdp-nnw-FvwiaB -[id number] (COSAMIN AVOCA, WITH BOSWELLIA,) 500-500-33.3-70 mg tab Indications: Ulcerative colitis without complications, unspecified location (HCC) Take 1 tablet by mouth twice daily as needed. 10/03/2024 Discontinued take 1 tablet by arsalan th twice daily as needed vewxmzjostp-erk-ZfvlqA-[id number] (COSAMIN AVOCA, WITH BOSWELLIA,) 500-500-33.3-70 mg tab Indications: Ulcerative colitis without complications, unspecified location (HCC) Take 1 tablet by mouth twice daily as needed. Active take 1 tablet by arsalan th twice daily as needed dgtiwchsfty-hlz-CywoqL-jzcb385 (COSAMIN AVOCA, WITH BOSWELLIA,) 500-500-33.3-70 mg tab [...] tab(s), 0 Refill(s), 12/28/21 6:09:00 EDT, Pharmacy: [id number], 163, cm, 12/07/21 13:38:00 EDT, [...] 15, 2021 12:00am Start: 12-17-2018 End: 12-15-2021 Losartan-Hydrochlorothiazide 100-12.5MG tablet Discontinued 1 {tbl} PO DAILY December 17, 2018 12:00am December 15, 2021 8:12am Start: 12-17-2018 End: 12-15-2021 take 1 tablet by mouth once daily Losartan-Hydrochlorothiazide Discontinue d 1 TABLET PO DAILY December 16, 2018 11:00pm December 15, 2021 7:12am Comment on above: Take 1 tablet by arsalan th once daily. 1 daily in the morning Take 1 tablet by [facility] two times a day. 1 daily in the morning Take 1 tablet by [facility] two times a day. Take 1 tablet by [facility] once daily. iv contrast (will be provided [...] 1 Each 0 12/03/2023 12/04/2023 Active Lacto No.42-Nscsyf-Tif-Larch (Women's Probiotic) 25B cell-25B cell-50 mg capsule (9 sources) Start: 04-04-2021 Lacto No.76-Bi oeno-Wap-Xoepj (Women's Probiotic) 25B cell-25B cell-50 mg capsule Active CAP PO April 04, 2021 2:00pm Start: 04-04-2021 End: 06-11-2024 Lacto No.08-Mrjfek-Mxc-Larch (Women's Probiotic) 25B cell-25B cell-50 mg capsule Discontinued NMA PO April 04, 2021 1:00am June 11, 2024 6:55pm Start: 04-04-2021 Lacto No.76-Bi joif-Bcd-Qlomy (Women's Probiotic) 25B cell-25B cell-50 mg capsule Active CAP PO April 04, 2021 12:00am Start: 04-04-2021 Lacto No.76-Bi xvlp-Akv-Cfbgu (Women's Probiotic) 25B cell-25B cell-50 mg capsule Active CAP PO April 04, 2021 1:00am metoprolol tartrate 25 mg oral tablet (1 source) beta-Adrenergic Ede Start: 05-13-2021 End: 06-12-2021 metoprolol succinate 25 mg oral TABLET extended release Dose : 25 mg = 1 tab(s), Oral, qPM, Do not crush or chew (controlled release), # 30 tab(s), 0 Refill(s), Pharmacy: [id number], Hypertension, 162.5, cm, 04/19/21 14:35:00 EST, Height, kg, 04/19/21 14:35:00 EST, Dosing Weight Start Date: 05/13/21 Stop Date: 06/12/21 Status: Ordered metroNIDAZOLE 500 mg oral tablet (9 sources) Nitroimidazole Antimicrobial Start: 01-15-2025 End: 01-22-2025 take 1 tablet by mouth every twelve hours metroNIDAZOLE (FLAGYL) 500 mg tablet Indications: Diverticulitis of sigmoid colon , Hematochezia , Acute diarrhea Take 1 tablet by mouth every 12 hours. 01/15/2025 01/22/2025 Active Start: 01-15-2025 take 1 tablet by arsalan twice daily Metronidazole 500 mg tablet Active 500 mg PO TWICE A DAY 14 7 0 January 15, 2025 12:00am Start: 04-25-2023 End: 06-11-2024 take 1 tablet by mouth every eight hours Metronidazole 500 mg tablet Discontinued 500 mg PO Q8H 21 7 0 April 25, 2023 1:00am June 11, 2024 6:55pm ondansetron 4 mg disintegrating oral tablet (9 sources) Serotonin-3 Receptor Antagonist Start: 04-25-2023 take 1 tablet by mouth every six hours as needed ondansetron orally disintegrating (ZOFRAN ODT) 4 mg disintegrating tablet Indications: Diverticulitis of sigmoid colon , Nausea Take 4 mg by mouth every 6 hours as needed. 04/25/2023 Active Start: 04-25-2023 End: 06-11-2024 take 1 tablet [...] Drug Class(es) Dates Sig (Normalized) Sig (Original) [id number] 200 actuat albuterol 0.09 mg/actuat metered dose [...] tablet 2 06/25/2024 07/15/2024 Discontinued Start: 06-13-2024 End: 01-17-2025 take 2 tablets by mouth twice daily, then take 1 tablet by mouth twice daily Apixaban (Eliquis Dvt-Pe Treat 30d Start) 5 mg (74 tabs) tablets,dose pack Discontinued 5 mg PO TWICE A DAY 74 0 June 13, 2024 1:00am January 17, 2025 12:36pm 10 mg (2 tabs) twice daily for 7 days till 06/19/24 and then twice daily to continue azelastine hydrochloride 0.206 mg/actuat metered dose nasal spray (9 sources) Histamine-1 Receptor Antagonist Start: 04-05-2021 End: [...] propionate 0.05 mg/actuat metered dose nasal spray (9 sources) Corticosteroid, Histamine-1 Receptor Antagonist Start: 04-04-2021 [...] each nostril azithromycin 250 mg oral tablet (7 sources) Macrolide Antimicrobial Start: 12-15-2021 End: 01-02-2022 Azithromycin (Zithromax Z-Rebecca) 250 mg tablet Discontinued 0 PO .COMPLEX 6 0 December 15, 2021 12:00am January 02, 2022 11:08am For 250 mg dose pack: take 500 mg today (day 1), then 250 mg for 4 days (days 2-5) PO Budesonide-Formoterol (7 sources) Corticosteroid, beta2-Adrenergic Agonist Start: 12-15-2021 End: [...] 11/28/2023 12/29/2024 Discontinued (Course of therapy completed) escitalopram 5 mg oral tablet (8 sources) Serotonin Reuptake Inhibitor Start: 05-10-2022 End: 07-09-2022 escitalopram 5 mg oral tablet Dose : 5 mg = 1 tab(s), Oral, qDay, # 30 tab(s), 1 Refill(s), Pharmacy: [facility], Anxiety Depression, 162.6, cm, 05/10/22 10:24:00 EST, Height Start Date: 05/10/22 Stop Date: 07/09/22 Status: Ordered ezetimibe 10 mg oral tablet (4 sources) Dietary Cholesterol Absorption Inhibitor Start: 12-14-2021 End: 03-14-2022 Zetia 10 mg oral tablet Dose : 10 mg = 1 tab(s), Oral, qDay, # 30 tab(s), 2 Refill(s), Pharmacy: [facility], 163, cm, 12/07/21 13:38:00 EDT, Height Start Date: 12/14/21 Stop Date: 03/14/22 Status: Ordered famotidine 20 mg oral tablet (14 sources) Histamine-2 Receptor Antagonist Start: 04-04-2021 End: [...] hours, # 30 gram(s), 0 Refill(s), Pharmacy: [facility], Cream, 165.3, cm, 06/28/21 9:52:00 [...] by arsalan th daily with dinner. methylPREDNISolone (11 sources) Corticosteroid Start: 2023 End: 2023 methylPREDNISolone [...] with food. montelukast 10 mg oral tablet (9 sources) Leukotriene Receptor Antagonist Start: End: take 1 tablet by mouth once daily in the evening Montelukast 10 mg tablet Discontinued 10 mg PO EVERY EVENING 24 08June 13, 2022 12:29pm June 11, 2024 6:53pm Smoking greater than 20 pack years Nicotine dependence, cigarettes, uncomplicated nitrofurantoin, macrocrystals 25 mg / nitrofurantoin, monohydrate 75 mg oral capsule (10 sources) Nitrofuran Antibacterial Start: End: take 1 capsule by mouth twice daily at mealtime nitrofurantoin monohydrate and macrocrystal (MACROBID) 100 mg capsule Take 1 capsule by mouth two times a day with meals for 7 days. 14 capsule 01/14/2025 01/19/2025 Discontinued Start: 12-29-2024 End: 01-01-2025 take 1 capsule [...] Comment on above: Take 1 capsule by [facility] twice daily for 5 days. olmesartan medoxomil 40 mg oral tablet (18 sources) Angiotensin 2 Receptor Ede End: 3 take 1 tablet by mouth once daily olmesartan (BENICAR) 40 mg tablet Take 40 mg by mouth once daily. 0 01/16/2023 Discontinued (Not on Formulary) Comment on above: Take 40 mg by mouth once daily. predniSONE 10 mg oral tablet (20 sources) Start: 4 End: 4 take 4 tablets by mouth once daily, [...] mg tablet Discontinued 60 mg PO daily April 14, 2022 1:00am June 13, 2022 [...] tabs, # 2 tab(s), 0 Refill(s), Pharmacy: [id number], 163, cm, 03/09/22 10:53:00 EDT, Height Start Date: 03/14/22 Stop Date: 03/16/22 Status: Ordered Start: 12-15-2021 End: 12-20-2021 take 2 tablets by mouth once daily Prednisone 20 mg tablet Discontinued 40 mg PO DAILY 10 5 December 15, 2021 12:00am December 19, 2021 [...] BID, # 1 EA, 5 Refill(s), Pharmacy: [facility]/pharmacy #[id number], 163, cm, 12/07/21 13:38:00 EDT, Height [...] hernia (18 sources) Hiatal hernia 10-21-2020 Episodic Abdominal pain (20 sources) Left upper quadrant pain; Translations: [Left upper quadrant pain] Onset: 5 10-03-2024 Episodic Administrative/social admission (2 sources) Patient encounter [...] Translations: [Chronic obstructive pulmonary disease, unspecified] Onset: 3 Chronic Deficiency and other anemia (18 sources) Normocytic anemia 05-24-2020 Episodic Disorders of lipid metabolism (18 sources) Hyperlipidemia 06-08-2020 Chronic Diverticulosis and diverticulitis (3 sources) Diverticulitis of sigmoid colon; Translations: [Diverticulitis of large intestine without perforation or abscess without bleeding] 01-15-2025 Chronic Esophageal disorders (14 sources) Gastroesophageal reflux disease 12-07-2021 Chronic Essential hypertension (20 sources) Hypertensive disorder; Translations: [Essential (primary) hypertension] Onset: 3 12-05-2018 Chronic Gastrointestinal hemorrhage (5 sources) Hemorrhage of rectum and anus; Translations: [Hemorrhage of anus and rectum] Episodic Genitourinary symptoms and ill-defined conditions (11 sources) Microscopic hematuria; Translations: [Other microscopic hematuria] Onset: 5 12-27-2022 Episodic Lymphadenitis (18 sources) Axillary lymphadenopathy 06-30-2020 Episodic Comment on above: benign per mammogram 06/17 Nausea and vomiting (10 sources) Nausea; Translations: [Nausea] Onset: 5 10-09-2024 Episodic Noninfectious gastroenteritis (2 sources) Colitis; Translations: [Noninfective gastroenteritis and colitis, unspecified] [...] bone, unspecified] 01-23-2024 Episodic Other circulatory disease (9 sources) H/O: hypertension; Translations: [Personal history of [...] sources) Hydronephrosis 10-01-2020 Episodic Other diseases of kidney and ureters (1 source) Acute renal insufficiency; Translations: [Disorder of kidney and ureter, unspecified] 01-17-2025 Episodic Other diseases of veins and lymphatics [...] unspecified; Translations: [Diarrhea, unspecified] Onset: Episodic Other gastrointestinal disorders (1 source) Antibiotic-associated diarrhea; Translations: [Toxic gastroenteritis and colitis] 01-17-2025 Episodic Other gastrointestinal disorders (1 source) Acute diarrhea; Translations: [Diarrhea, unspecified] 01-19-2025 Episodic Other liver diseases (18 sources) Steatosis of liver 10-01-2020 Chronic Other lower respiratory disease (20 sources) Dyspnea; Translations: [Shortness of breath] 02-17-2020 Episodic Other lower respiratory disease (18 sources) Persistent cough 02-17-2020 Episodic Other lower respiratory disease (18 sources) Respiratory symptom 03-15-2021 Episodic Other lower respiratory disease (9 sources) Chronic cough; Translations: [Chronic cough] 02-23-2021 [...] low back pain with bilateral sciatica] Onset: 5 Chronic Other non-traumatic joint disorders (20 sources) [...] Obese class II; Translations: [Obesity, unspecified] Onset: 3 Chronic Other nutritional; endocrine; and metabolic disorders (4 sources) Morbid obesity; Translations: [Morbid (severe) obesity due to excess calories] 02-25-2024 Chronic Other nutritional; endocrine; and metabolic disorders (7 sources) Body mass index 40+ - severely obese; Translations: [Body mass index (BMI) 40.0-44.9, adult] Onset: 5 09-23-2024 Chronic Other nutritional; endocrine; and metabolic disorders (1 source) Morbid (severe) obesity due to excess calories; Translations: [Morbid obesity (HCC)] Onset: 5 Chronic Other nutritional; endocrine; and metabolic disorders (1 source) Body mass index (BMI) 40.0-44.9, adult; Translations: [BMI 40.0-44.9, adult ([facility])] Onset: 5 Chronic Other nutritional; endocrine; and [...] Ulcerative colitis; Translations: [Acute ulcerative colitis] Onset: 4 12-15-2019 Chronic Residual codes; unclassified (20 sources) [...] nonobstructive alveolar hypoventilation; Translations: [Nocturnal hypoxemia] Onset: 5 Chronic Residual codes; unclassified (18 sources) Peripheral edema 10-21-2020 Episodic Residual codes; unclassified (20 sources) Postmenopausal state; Translations: [Asymptomatic menopausal state] 06-08-2020 Episodic Residual codes; unclassified (9 sources) H/O Spinal surgery; Translations: [Other specified postprocedural states] 05-07-2020 Episodic Residual codes; unclassified (1 source) Difficulty sleeping ; Translations: [Sleep deprivation] 06-18-2024 Episodic Residual codes; unclassified (2 sources) Family history of malignant neoplasm of digestive organs; Translations: [Family history of malignant neoplasm of digestive organs] Onset: 5 Episodic Residual codes; unclassified (1 source) Family history of cancer of colon; Translations: [Family history of malignant neoplasm of digestive organs] 10-30-2024 Episodic Residual codes; unclassified (2 sources) Edema of lower extremity; Translations: [Localized edema] 06-21-2024 Episodic Residual codes; unclassified (1 source) Other specified postprocedural states; Translations: [History of lumbar laminectomy for spinal cord decompression] Onset: 5 Episodic Respiratory failure; insufficiency; arrest (adult) (1 source) Vfeuc-vk-hgsqvil respiratory failure; Translations: [Acute and chronic respiratory [...] on above: Ordered for March 2023 Unclassified (13 sources) Autogenerated Problem Onset: 5 01-04-2025 Unclassified (1 source) Obesity, Class III, BMI 40-49.9 (morbid obesity) (HCC); Translations: [Obesity, Class III, BMI 40-49.9 (morbid obesity) (HCC)] Onset: 5 Unclassified (1 source) Asthma-COPD overlap syndrome (HCC); Translations: [Asthma-COPD overlap syndrome (HCC)] Onset: 5 Past or Other Problems Problem Classification Problem Date Documented Da te Episodic/Chronic Diabetes mellitus without complication (20 sources) Prediabetes; Translations: [Hyperglycemia] Onset: 07-09-2023 05-12-2020 Episodic Malaise and fatigue (20 sources) Fatigue; Translations: [Other fatigue] Onset: 07-09-2023 Episodic Nonspecific chest pain (17 sources) Central chest pain; Translations: [Chest pain, [...] Translations: [Disorder of bone and cartilage] Onset: 03-07-2024 Episodic Other bone disease and musculoskeletal deformities (1 source) Disorder of cartilage, unspecified; Translations: [Disorder of bone and cartilage] Onset: 03-07-2024 Episodic Other connective tissue disease (20 sources) [...] lung field] Onset: 04-07-2023 04-07-2023 Episodic Other non-traumatic joint disorders (20 sources) [...] veins of right proximal lower extremity] Onset: 07-24-2024 06-18-2024 Episodic Residual codes; unclassified (20 sources) [...] menopausal state; Translations: [Asymptomatic postmenopausal status] Onset: 03-07-2024 Episodic Unclassified (20 sources) Patient encounter status 05-12-2020 Results Test Name Value Interpretation Reference Range [facility] CNTHERAPYon 01-20-2025 CNTHERAPY Normal [facility] CNOVon 01-19-2025 CNOV Normal [facility] CNPNon 01-19-2025 CNPN Normal [facility] Absolute lymphocyte countOrd ered By: Varghese Lazo on 01-17-2025 Lymphocytes Auto (Unsp spec) [#/Vol] 1.41 10*3/uL 0.83-4.51 [facility] Absolute neutrophil countOrd ered By: Varghese Lazo on 01-17-2025 Neutrophils (Bld) [#/Vol] 5.4 10*3/uL 2.0-7.7 [facility] Anion gap in Serum or Plasma Ordered By: Varghese Lazo on 01-17-2025 Anion gap [Moles/Vol] 15 mmol/L 5-15 [facility] Automated lymphocyte count a s percentage of total leukocytesOrdered By: Varghese Lazo on 01-17-2025 Lymphocytes/100 WBC Auto (Unsp spec) 18.1 % Low 19-41 [facility] BUN/creatinine ratioOrdered By: Varghese Lazo on 01-17-2025 Urea nitrogen/Creatinine [Mass ratio] 16.4 mg/mg 10- [facility] Basic Metabolic Profile (BMP )on 01-17-2025 BUN/CRE 16.4 RATIO Normal - [facility] Comment on above: Performed By: #### L 501.4020 #### [facility] [address] [place], [address] Calcium [Mass/Vol] 8.6 mg/dL Normal 7.6-11.0 [facility] Comment on above: Performed By: #### L 501.4020 #### [facility] [address] [place], [address] Chloride [Moles/Vol] 103 mmol/L Normal 98-108 [facility] Comment on above: Performed By: #### [id number] #### [facility] [address] [place], [address] CO2 [Moles/Vol] 21.7 mmol/L Normal 21.0-32.0 [facility] Comment on above: Performed By: #### [id number] #### [facility] [address] [place], [address] Creatinine [Mass/Vol] 1.28 mg/dL High 0.70-1.20 [facility] Comment on above: Performed By: #### [id number] #### [facility] [address] [place], [address] ECRCL 45.71 ml/min Low 50-250 [facility] Comment on above: Performed By: #### [id number] #### [facility] [address] [place], [address] GAP 15 Normal 5-15 [facility] Comment on above: Performed By: #### L 501.4020 #### [facility] [address] [place], [address] GFR/1.73 sq M.predicted among non-blacks MDRD (S/P/Bld) [Vol rate/Area] 44 mL/min/{1.73_m2} Low >60 [facility] Comment on above: Result Comment: mL/m in/1.73m2 CKD-EPI Creatinine Equation (2020) Performed By: #### L 501.4020 #### [facility] [address] [place], [address] Glucose [Mass/Vol] 119 mg/dL High 70-99 [facility] Comment on above: Performed By: #### [id number] #### [facility] [address] [place], [address] Potassium [Moles/Vol] 3.3 mmol/L Normal 3.3-5.1 [facility] Comment on above: Performed By: #### [id number] #### [facility] [address] [place], [address] Sodium [Moles/Vol] 139 mmol/L Normal 133-145 [facility] Comment on above: Performed By: #### [id number] #### [facility] [address] [place], [address] Urea nitrogen [Mass/Vol] 21 mg/dL High 4-19 [facility] Comment on above: Performed By: #### L 501.4020 #### [facility] [address] [place], [address] Basophil percentageOrdered B y: Varghese Lazo on 01-17-2025 Basophils/100 WBC (Bld) 0.3 % 0-1 [facility] CBC W/Diff, Automatedon 12-27 Absolute Lymph 1.41 X10 3/uL Normal 0.83-4.51 [facility] Comment on above: Performed By: #### L 100.0100 #### [facility] [address] [place], [address] Absolute Neut 5.4 X10 3/uL Normal 2.0-7.7 [facility] Comment on above: Performed By: #### L 100.0100 #### [facility] [address] [place], [address] Basophils/100 WBC (Bld) 0.3 % Normal 0-1 [facility] Comment on above: Performed By: #### L 100.0100 #### [facility] [address] [place], [address] Eosinophils/100 WBC (Bld) 3.3 % Normal 0-5 [facility] Comment on above: Performed By: #### L 100.0100 #### [facility] [address] [place], [address] Erythrocyte distribution width (RBC) [Ratio] 13.9 % Normal 11.6-14.6 [facility] Comment on above: Performed By: #### L 100.0100 #### [facility] [address] [place], [address] Hematocrit (Bld) [Volume fraction] 34.5 % Low 37-47 [facility] Comment on above: Performed By: #### L 100.0100 #### [facility] [address] [place], [address] Hemoglobin (Bld) [Mass/Vol] 11.2 g/dL Low 12.0-15. 0 [facility] Comment on above: Performed By: #### L 100.0100 #### [facility] [address] [place], [address] IG% 0.400 Normal 0.0-0.9 [facility] Comment on above: Result Comment: IG% - Immature Granulocytes (promyelocytes, myelocytes and metamyelocytes) > 1% indicates that a LEFT SHIFT is Present. Performed By: #### L 100.0100 #### [facility] [address] [place], [address] Lymphocytes/100 WBC (Bld) 18.1 % Low 19-41 [facility] Comment on above: Performed By: #### L 100.0100 #### [facility] [address] [place], [address] MCH (RBC) [Entitic mass] 29.3 pg Normal 27.0-32.0 [facility] Comment on above: Performed By: #### L 100.0100 #### [facility] [address] [place], [address] MCHC (RBC) [Mass/Vol] 32.5 g/dL Normal 32-36 [facility] Comment on above: Performed By: #### L 100.0100 #### [facility] [address] [place], [address] MCV (RBC) [Entitic vol] 90.3 fL Normal 81-99 [facility] Comment on above: Performed By: #### L 100.0100 #### [facility] [address] [place], [address] Monocytes/100 WBC (Bld) 9.0 % Normal 0-10 [facility] Comment on above: Performed By: #### L 100.0100 #### [facility] [address] [place], [address] Neutrophils/100 WBC (Bld) 68.9 % Normal 47-70 [facility] Comment on above: Performed By: #### L 100.0100 #### [facility] [address] [place], [address] Nucleated RBC (Bld) [#/Vol] 0 10*3/uL Normal 0-5 [facility] Comment on above: Performed By: #### L 100.0100 #### [facility] [address] [place], [address] Platelet mean volume (Bld) [Entitic vol] 9.6 fL Normal 6.2-12.0 [facility] Comment on above: Performed By: #### L 100.0100 #### [facility] [address] [place], [address] Platelets (Bld) [#/Vol] 261 10*3/uL Normal 150-450 [facility] Comment on above: Performed By: #### L 100.0100 #### [facility] [address] [place], [address] RBC (Bld) [#/Vol] 3.82 10*6/uL Low 4.2-5.4 [facility] Comment on above: Performed By: #### L 100.0100 #### [facility] [address] [place], [address] RDW SD 46.6 fl High 35.1-43.9 [facility] Comment on above: Performed By: #### L 100.0100 #### [facility] [address] [place], [address] WBC (Bld) [#/Vol] 7.8 10*3/uL Normal 4.4-11.0 [facility] Comment on above: Performed By: #### L 100.0100 #### [facility] [address] [place], [address] CNPNon 01-17-2025 CNPN Normal [facility] Carbon dioxide, total [Moles /volume] in Central venous bloodOrdered By: Varghese Lazo on 01-17-2025 CO2 [Moles/Vol] 21.7 mmol/L 21.0-32.0 [facility] Chloride assayOrdered By: Tobin Lazo on 01-17-2025 Chloride [Moles/Vol] 103 mmol/L 98-108 [facility] Emergency Department Summary on 01-17-2025 Emergency Department Summary [facility] Medical Records Department [address] [place] [address] Emergency Department Summary 01/17/25 MR#: [id number] Acct: [id number] Name: NADJA CHAUDHARI Rep #: [id number] : 1950 74 From: Varghese Lazo MD PCP: Dr. Gray Quintana, DO Status:REG ER Location: ED HPI HPI - GI History of Present Illness Chief Complaint: Abd Pain Informant: patient Narrative Narrative: 74-year-old female was seen here 2 days ago for abdominal pain and some rectal bleeding and was told she has diverticulitis, she was discharged started on Cipro and Flagyl. She returns today saying that she has had diarrhea starting yesterday, she had 6 or 7 bouts yesterday, but they were all very small amounts. Today, she states she got very little morning and then had a big blowout of a lot of diarrhea that was mostly watery stool, a little bit of blood in the stool and again when she wiped but no major bleeding. She then had another smaller bout of diarrhea that was more similar to what she had last night. She has been improving with regards to her abdominal pain. She denies any fevers or chills. It is Sunday morning she called her doctor about this and they referred her here to the ER. She denies any lightheadedness or near syncope. She denies any chest pain or shortness of breath. No nausea or vomiting. She does not have any abdominal pain right now she states when it is there it comes and goes but is not as bad as it was before she started the treatment. She is to be on a apixaban for DVT, but her doctor took her off of that sometime ago after her DVT was resolved. No history of C. difficile in the past. She states usually takes probiotic but has not taken it in a while. [facility] Medical History Anxiety Depression Osteoporosis Kidney disease Hepatitis Former smoker On home oxygen therapy Asthma Chest pain Ulcerative colitis HTN (hypertension) History of hypertension Home Medications ???Medication ???Instructions ???Recorded ???Last Taken ???Type losartan 50 mg-hydrochlorothiazide 1 tab PO DAILY 12/15/21 Unknown History 12.5 mg tablet losartan 50 mg tablet 50 mg PO HS 01/02/22 Unknown Histo ry atorvastatin 40 mg tablet 40 mg PO [...] / Time No Known Allergies Allergy Verified 01/17/25 10:01 Family History Father Colon cancer Aunt Colon cancer Breast cancer Surgical History S/P ORIF (open reduction internal fixation) fracture Hx of shoulder surgery Hx of lumbar discectomy History of mandibular surgery History of tonsillectomy History of back surgery Social History (Updated 06/11/24 @ 21:[address] Rosita Alonzo, DO) Smoking Status: Former smoker Tobacco: How many years used: 40 alcohol intake: never substance use type: does not use ROS ROS ED Constitutional Constitutional ED: Denies chills or fever(s) Eyes Eyes: Denies change in vision or diplopia ENT ENT ED: Denies rhinorrhea or sore throat Cardiovascular Cardiovascular: Denies chest pain or palpitations Respiratory/Chest Respiratory/Chest: Denies cough or dyspnea Gastrointestinal Gastrointestinal: Reports abdominal pain, diarrhea and hematochezia; Denies melena, nausea or vomiting Genitourinary Genitourinary ED: Denies dysuria or hematuria Musculoskeletal Musculoskeletal: Denies back pain or neck pain Integumentary Denies abscess or rash Neurologic Neurologic: Denies headache(s), paresthesias or weakness Psychiatric Psychiatric: Denies anxiety or suicidal thoughts EXAM Physical Exam Const Vital Signs: 01/17/25 10:01 Temperature 98.7 F Temperature Source Oral Pulse Rate 90 Respiratory Rate 22 H Blood Pressure 105/80 Blood Pressure Mean 88 Pulse Ox 93 Oxygen Delivery Method Room Air Positive well nourished, well developed and obese Constitutional Narrative: Well-appearing no distress General Appearance ED: well developed and NAD Nutritional Appearance: obese HEENT Reports moist mucous membranes normocephalic and atraumatic Eyes PERRL and EOMs intact bilaterally Nec (more content not included)... Normal [facility] Eosinophil percentageOrdered By: Varghese Lazo on 01-17-2025 Eosinophils/100 WBC (Bld) 3.3 % 0-5 [facility] Erythrocyte distribution wid th ratioOrdered By: Varghese Lazo on 01-17-2025 Erythrocyte distribution width (RBC) [Ratio] 13.9 % 11.6-14.6 [facility] Erythrocyte distribution wid th standard deviationOrdered By: Varghese Lazo on 01-17-2025 Erythrocyte distribution width (RBC) [Ratio] 46.6 fl High 35.1-43.9 [facility] Glomerular filtration rate ( GFR) estimation/1.73 sq m using serum, plasma, or whole bOrdered By: Varghese Lazo on 01-17-2025 GFR/1.73 sq M.predicted among non-blacks MDRD (S/P/Bld) [Vol rate/Area] 44 mL/min/{1.73_m2} Low >60 [facility] Comment on above: mL/min/1.73m2 CKD-EP I Creatinine Equation (2020) Hematocrit Auto (Bld) [Volum e fraction]Ordered By: Varghese Lazo on 01-17-2025 Hematocrit (Bld) [Volume fraction] 34.5 % Low 37-47 [facility] Hemoglobin measurementOrdere d By: Varghese Lazo on 01-17-2025 Hemoglobin (Bld) [Mass/Vol] 11.2 g/dL Low 12.0-15. 0 [facility] Immature granulocytes/100 WB C Auto (Bld)Ordered By: Varghese Lazo on 01-17-2025 Immature granulocytes/100 WBC (Bld) 0.400 % 0.0-0.9 [facility] Comment on above: IG% - Immature Granu locytes (promyelocytes, myelocytes and metamyelocytes) > 1% indicates that a LEFT SHIFT is Present. MCV (mean corpuscular volume ) determinationOrdered By: Varghese Lazo on 01-17-2025 MCV (RBC) [Entitic vol] 90.3 fL 81-99 [facility] Mean corpuscular hemoglobin (MCH) determinationOrdered By: Varghese Lazo on 01-17-2025 MCH (RBC) [Entitic mass] 29.3 pg 27.0-32.0 [facility] Mean corpuscular hemoglobin concentration (MCHC) determinationOrdered By: Varghese Lazo on 01-17-2025 MCHC (RBC) [Mass/Vol] 32.5 g/dL 32-36 [facility] Mean platelet volume determi nationOrdered By: Varghese Lazo on 01-17-2025 Platelet mean volume (Bld) [Entitic vol] 9.6 fL 6.2-12.0 [facility] Monocyte percentageOrdered B y: Varghese Lazo on 01-17-2025 Monocytes/100 WBC (Bld) 9.0 % 0-10 [facility] Neutrophil percentageOrdered By: Varghese Lazo on 01-17-2025 Neutrophils/100 WBC (Bld) 68.9 % 47-70 [facility] Nucleated red blood cell per centageOrdered By: Varghese Lazo on 01-17-2025 Nucleated RBC/100 WBC (Bld) [Ratio] 0 % 0-5 [facility] Platelet countOrdered By: Tobin Lazo on 01-17-2025 Platelets (Bld) [#/Vol] 261 10*3/uL 150-450 [facility] Potassium measurement (mass/ volume)Ordered By: Varghese Lazo on 01-17-2025 Potassium (Unsp spec) [Mass/Vol] 3.3 mmol/L 3.3-5.1 [facility] RBC Auto (Bld) [#/Vol]Ordere d By: Varghese Lazo on 01-17-2025 RBC (Bld) [#/Vol] 3.82 10*6/uL Low 4.2-5.4 [facility] Serum creatinine measurement (mass/volume)Ordered By: Varghese Lazo on 01-17-2025 Creatinine [Mass/Vol] 1.28 mg/dL High 0.70-1.20 [facility] Serum glucose measurement (m ass/volume)Ordered By: Varghese Lazo on 01-17-2025 Glucose [Mass/Vol] 119 mg/dL High 70-99 [facility] Serum or plasma calcium lydia urement (mass/volume)Ordered By: Varghese Lazo on 01-17-2025 Calcium [Mass/Vol] 8.6 mg/dL 7.6-11.0 [facility] Serum or plasma urea nitroge n measurement (mass/volume)Ordered By: Varghese Lazo on 01-17-2025 Urea nitrogen [Mass/Vol] 21 mg/dL High 4-19 [facility] Sodium levelOrdered By: Rene Lazo on 01-17-2025 Sodium [Moles/Vol] 139 mmol/L 133-145 [facility] White blood cell (WBC) count Ordered By: Varghese Lazo on 01-17-2025 WBC (Bld) [#/Vol] 7.8 10*3/uL 4.4-11.0 [facility] Abdomen/Pelvis W IV Cont ONL Yon 01-15-2025 Abdomen/Pelvis W IV Cont ONLY [facility] Imaging Services [address] [place] [address] Abdomen/Pelvis W IV Cont ONLY MR#: [id number] Acct: [id number] Name: NADJA CHAUDHARI Rep #: [id number] : 1950 F 74 From: Sarthak myers MD PCP: Dr. Gray Quintana, DO Status: REG ER Study: Abdomen/Pelvis W IV Cont ONLY Date of Exam: Exam# [id number] Ordering Dr: Linda Madison PROCEDURE: ABDOMEN/PELVIS W [...] Stable bilateral parapelvic renal cysts. Reading Location: [id number] CC: Dr. Gray Quintana DO; HENRI Morales Technical Systems Architect: Signed Normal [facility] Absolute lymphocyte countOrd ered By: Linda Madison on 01-15-2025 Lymphocytes Auto (Unsp spec) [#/Vol] 1.29 10*3/uL 0.83-4.51 [facility] Absolute neutrophil countOrd ered By: Linda Madison on 01-15-2025 Neutrophils (Bld) [#/Vol] 7.3 10*3/uL 2.0-7.7 [facility] Anion gap in Serum or Plasma Ordered By: Linda Madison on 08-21-2025 Anion gap [Moles/Vol] 14 mmol/L 5-15 [facility] Automated lymphocyte count a s percentage of total leukocytesOrdered By: Linda Madison on 01-15-2025 Lymphocytes/100 WBC Auto (Unsp spec) 13.3 % Low [facility] BUN/creatinine ratioOrdered By: Linda Madison on 01-15-2025 Urea nitrogen/Creatinine [Mass ratio] 20.0 mg/mg 03-16 [facility] Basic Metabolic Profile (BMP )on 01-15-2025 BUN/CRE 20.0 RATIO Normal 03-16 [facility] Comment on above: Performed By: #### L 501.4020 #### [facility] [address] [place], [address] Calcium [Mass/Vol] 8.7 mg/dL Normal 7.6-11.0 [facility] Comment on above: Performed By: #### L 501.4020 #### [facility] [address] [place], [address] Chloride [Moles/Vol] 105 mmol/L Normal 98-108 [facility] Comment on above: Performed By: #### L 501.4020 #### [facility] [address] [place], [address] CO2 [Moles/Vol] 21.1 mmol/L Normal 21.0-32.0 [facility] Comment on above: Performed By: #### L 501.4020 #### [facility] [address] [place], [address] Creatinine [Mass/Vol] 0.97 mg/dL Normal 0.70-1.20 [facility] Comment on above: Performed By: #### L 501.4020 #### [facility] [address] [place], [address] ECRCL 60.68 ml/min Normal 50-250 [facility] Comment on above: Performed By: #### L 501.4020 #### [facility] [address] [place], [address] GAP 14 Normal 5-15 [facility] Comment on above: Performed By: #### L 501.4020 #### [facility] [address] [place], [address] GFR/1.73 sq M.predicted among non-blacks MDRD (S/P/Bld) [Vol rate/Area] 61 mL/min/{1.73_m2} Normal >60 [facility] Comment on above: Result Comment: mL/m in/1.73m2 CKD-EPI Creatinine Equation (2020) Performed By: #### L 501.4020 #### [facility] [address] [place], [address] Glucose [Mass/Vol] 133 mg/dL High 70-99 [facility] Comment on above: Performed By: #### L 501.4020 #### [facility] [address] [place], [address] Potassium [Moles/Vol] 3.3 mmol/L Normal 3.3-5.1 [facility] Comment on above: Performed By: #### L [id number] #### [facility] [address] [place], [address] Sodium [Moles/Vol] 140 mmol/L Normal 133-145 [facility] Comment on above: Performed By: #### L [id number] #### [facility] [address] [place], [address] Urea nitrogen [Mass/Vol] 19 mg/dL Normal 4-19 [facility] Comment on above: Performed By: #### L 501.4020 #### [facility] [address] [place], [address] Basophil percentageOrdered B y: Linda Madison on 01-15-2025 Basophils/100 WBC (Bld) 0.3 % 0-1 [facility] Bilirubin Test strip Ql (U)O rdered By: Linda Madison on 01-15-2025 Bilirubin Ql (U) Negative Negative [facility] CBC W/Diff, Automatedon 12-27 Absolute Lymph 1.29 X10 3/uL Normal 0.83-4.51 [facility] Comment on above: Performed By: #### L 501.4020 #### [facility] [address] [place], [address] Absolute Neut 7.3 X10 3/uL Normal 2.0-7.7 [facility] Comment on above: Performed By: #### L [id number] #### [facility] [address] [place], [address] Basophils/100 WBC (Bld) 0.3 % Normal 0-1 [facility] Comment on above: Performed By: #### L [id number] #### [facility] [address] [place], [address] Eosinophils/100 WBC (Bld) 2.7 % Normal 0-5 [facility] Comment on above: Performed By: #### L [id number] #### [facility] [address] [place], [address] Erythrocyte distribution width (RBC) [Ratio] 14.2 % Normal 11.6-14.6 [facility] Comment on above: Performed By: #### L 501.4020 #### [facility] [address] [place], [address] Hematocrit (Bld) [Volume fraction] 36.7 % Low 37-47 [facility] Comment on above: Performed By: #### L 501.4020 #### [facility] [address] [place], [address] Hemoglobin (Bld) [Mass/Vol] 12.1 g/dL Normal 12.0-15. 0 [facility] Comment on above: Performed By: #### L 501.4020 #### [facility] [address] [place], [address] IG% 0.300 Normal 0.0-0.9 [facility] Comment on above: Result Comment: IG% - Immature Granulocytes (promyelocytes, myelocytes and metamyelocytes) > 1% indicates that a LEFT SHIFT is Present. Performed By: #### L 501.4020 #### [facility] [address] [place], [address] Lymphocytes/100 WBC (Bld) 13.3 % Low 19-41 [facility] Comment on above: Performed By: #### L [id number] #### [facility] [address] [place], [address] MCH (RBC) [Entitic mass] 29.8 pg Normal 27.0-32.0 [facility] Comment on above: Performed By: #### L [id number] #### [facility] [address] [place], [address] MCHC (RBC) [Mass/Vol] 33.0 g/dL Normal 32-36 [facility] Comment on above: Performed By: #### L [id number] #### [facility] [address] [place], [address] MCV (RBC) [Entitic vol] 90.4 fL Normal 81-99 [facility] Comment on above: Performed By: #### L [id number] #### [facility] [address] [place], [address] Monocytes/100 WBC (Bld) 8.2 % Normal 0-10 [facility] Comment on above: Performed By: #### L [id number] #### [facility] [address] [place], [address] Neutrophils/100 WBC (Bld) 75.2 % High 47-70 [facility] Comment on above: Performed By: #### L 501.4020 #### [facility] [address] [place], [address] Nucleated RBC (Bld) [#/Vol] 0 10*3/uL Normal 0-5 [facility] Comment on above: Performed By: #### L 501.4020 #### [facility] [address] [place], [address] Platelet mean volume (Bld) [Entitic vol] 10.1 fL Normal 6.2-12.0 [facility] Comment on above: Performed By: #### L 501.4020 #### [facility] [address] [place], [address] Platelets (Bld) [#/Vol] 267 10*3/uL Normal 150-450 [facility] Comment on above: Performed By: #### L 501.4020 #### [facility] [address] [place], [address] RBC (Bld) [#/Vol] 4.06 10*6/uL Low 4.2-5.4 [facility] Comment on above: Performed By: #### L 501.4020 #### [facility] [address] [place], [address] RDW SD 47.0 fl High 35.1-43.9 [facility] Comment on above: Performed By: #### L 501.4020 #### [facility] [address] [place], [address] WBC (Bld) [#/Vol] 9.7 10*3/uL Normal 4.4-11.0 [facility] Comment on above: Performed By: #### L 501.4020 #### [facility] [address] [place], [address] CNPNon 01-15-2025 CNPN Normal [facility] CNPTOUTREACHon 01-15-2025 CNPTOUTREACH Normal [facility] Carbon dioxide, total [Moles /volume] in Central venous bloodOrdered By: Linda Madison on 01-15-2025 CO2 [Moles/Vol] 21.1 mmol/L 21.0-32.0 [facility] Chloride assayOrdered By: Mariluz [place] on 01-15-2025 Chloride [Moles/Vol] 105 mmol/L 98-108 [facility] Emergency Department Summary on 01-15-2025 Emergency Department Summary [facility] Medical Records Department [address] [place] [address] Emergency Department Summary 01/15/25 MR#: [id number] Acct: [id number] Name: NADJA CHAUDHARI Rep #: [id number] : 1950 74 From: Jordin Najera DO PCP: Dr. Gray Quintana DO Status:DEP ER Location: ED HPI History [...] She follows with a GI doctor in [place] [employer] and had a normal colonoscopy about a year ago. She thinks her last flare was about a year and a half ago treated with prednisone. [facility] Medical History Anxiety Depression Osteoporosis Kidney disease [...] 06/13/24 Un known Rx a dose pack (EliquMySongToYou DVT-PE Treat 30D Start) atorvastatin 40 mg [...] on Macrobid (more content not included)... Normal [facility] Eosinophil percentageOrdered By: Linda Madison on 01-15-2025 Eosinophils/100 WBC (Bld) 2.7 % 0-5 [facility] Erythrocyte distribution wid th ratioOrdered By: Linda Madison on 01-15-2025 Erythrocyte distribution width (RBC) [Ratio] 14.2 % 11.6-14.6 [facility] Erythrocyte distribution wid th standard deviationOrdered By: Linda Madison on 01-15-2025 Erythrocyte distribution width (RBC) [Ratio] 47.0 fl High 35.1-43.9 [facility] Glomerular filtration rate ( GFR) estimation/1.73 sq m using serum, plasma, or whole bOrdered By: Linda Madison on 01-15-2025 GFR/1.73 sq M.predicted among non-blacks MDRD (S/P/Bld) [Vol rate/Area] 61 mL/min/{1.73_m2} >60 [facility] Comment on above: mL/min/1.73m2 CKD-EP I Creatinine Equation (2020) Hematocrit Auto (Bld) [Volum e fraction]Ordered By: Linda Madison on 01-15-2025 Hematocrit (Bld) [Volume fraction] 36.7 % Low 37-47 [facility] Hemoglobin measurementOrdere d By: Linda Madison on 01-15-2025 Hemoglobin (Bld) [Mass/Vol] 12.1 g/dL 12.0-15. 0 [facility] Immature granulocytes/100 WB C Auto (Bld)Ordered By: Linda Madison on 01-15-2025 Immature granulocytes/100 WBC (Bld) 0.300 % 0.0-0.9 [facility] Comment on above: IG% - Immature Granu locytes (promyelocytes, myelocytes and metamyelocytes) > 1% indicates that a LEFT SHIFT is Present. Ketones Test strip Ql (U)Ord ered By: Linda Madison on 01-15-2025 Ketones Ql (U) Negative Negative [facility] MCV (mean corpuscular volume ) determinationOrdered By: Linda Madison on 01-15-2025 MCV (RBC) [Entitic vol] 90.4 fL 81-99 [facility] Mean corpuscular hemoglobin (MCH) determinationOrdered By: Linda Madison on 01-15-2025 MCH (RBC) [Entitic mass] 29.8 pg 27.0-32.0 [facility] Mean corpuscular hemoglobin concentration (MCHC) determinationOrdered By: Linda Madison on 01-15-2025 MCHC (RBC) [Mass/Vol] 33.0 g/dL 32-36 [facility] Mean platelet volume determi nationOrdered By: Linda Madison on 01-15-2025 Platelet mean volume (Bld) [Entitic vol] 10.1 fL 6.2-12.0 [facility] Microscopic analysis of urin e for red blood cells (RBC)Ordered By: Linda Madison on 01-15-2025 Microscopic analysis of urine for red blood cells (RBC) 0 SEEN /hpf 0-5 [facility] Monocyte percentageOrdered B y: Linda Madison on 01-15-2025 Monocytes/100 WBC (Bld) 8.2 % 0-10 [facility] Mucus LM Ql (Urine sed)Order ed By: Linda Madison on 01-15-2025 Mucus Ql (Urine sed) 0 SEEN /hpf [facility] Neutrophil percentageOrdered By: Linda Madison on 01-15-2025 Neutrophils/100 WBC (Bld) 75.2 % High 47-70 [facility] Nitrite Test strip Ql (U)Ord ered By: Linda Madison on 01-15-2025 Nitrite Ql (U) Negative Negative [facility] Nucleated red blood cell per centageOrdered By: Linda Madison on 01-15-2025 Nucleated RBC/100 WBC (Bld) [Ratio] 0 % 0-5 [facility] Platelet countOrdered By: Mariluz [place] on 01-15-2025 Platelets (Bld) [#/Vol] 267 10*3/uL 150-450 [facility] Potassium measurement (mass/ volume)Ordered By: Linda Madison on 01-15-2025 Potassium (Unsp spec) [Mass/Vol] 3.3 mmol/L 3.3-5.1 [facility] Protein Test strip Ql (U)Ord ered By: Linda Madison on 01-15-2025 Protein Ql (U) 30 mg/dl High Negative [facility] RBC Auto (Bld) [#/Vol]Ordere d By: Linda Madison on 01-15-2025 RBC (Bld) [#/Vol] 4.06 10*6/uL Low 4.2-5.4 [facility] Serum creatinine measurement (mass/volume)Ordered By: Linda Madison on 01-15-2025 Creatinine [Mass/Vol] 0.97 mg/dL 0.70-1.20 [facility] Serum glucose measurement (m ass/volume)Ordered By: Linda Madison on 01-15-2025 Glucose [Mass/Vol] 133 mg/dL High 70-99 [facility] Serum or plasma calcium lydia urement (mass/volume)Ordered By: Linda Madison on 01-15-2025 Calcium [Mass/Vol] 8.7 mg/dL 7.6-11.0 [facility] Serum or plasma urea nitroge n measurement (mass/volume)Ordered By: Linda Madison on 01-15-2025 Urea nitrogen [Mass/Vol] 19 mg/dL 4-19 [facility] Sodium levelOrdered By: Linda Madison on 01-15-2025 Sodium [Moles/Vol] 140 mmol/L 133-145 [facility] Squamous epithelial cells de tection in urine sediment by light microscopyOrdered By: Linda Madison on 01-15-2025 Epithelial cells.squamous LM Ql (Urine sed) 0-5 SEEN /hpf 5-10 [facility] Urinalysis, Completeon 01-15 EPI,SQUAMOUS 0-5 SEEN Normal 5-10 [facility] Comment on above: Order Comment: CLEAN CATCH Performed By: #### L 400.0001 #### [facility] [address] [place], [address] WBC 0-5 SEEN Normal 0-5 [facility] Comment on above: Order Comment: CLEAN CATCH Performed By: #### L 400.0001 #### [facility] [address] [place], [address] BACTERIA 0 SEEN Normal None Seen [facility] Comment on above: Order Comment: CLEAN CATCH Performed By: #### L 400.0001 #### [facility] [address] [place], [address] Mucus Ql (Urine sed) 0 SEEN Normal [facility] Comment on above: Order Comment: CLEAN CATCH Performed By: #### L 400.0001 #### [facility] [address] [place], [address] RBC 0 SEEN Normal 0-5 [facility] Comment on above: Order Comment: CLEAN CATCH Performed By: #### L 400.0001 #### [facility] [address] [place], [address] Urine clarityOrdered By: Romelia [place] on 01-15-2025 Clarity (U) Clear Clear [facility] Urine color determinationOrd ered By: Linda Madison on 01-15-2025 Color (U) Yellow Yellow [facility] Urine glucose detectionOrder ed By: Linda Madison on 01-15-2025 Glucose Ql (U) Normal mg/dl Normal [facility] Urine leukocyte esterase det ection by dipstickOrdered By: Linda Madison on 01-15-2025 Leukocyte esterase Test strip Ql (U) Negative Negative [facility] Urine pHOrdered By: Linda estrella on 01-15-2025 pH (U) 6.5 [pH] 5.0 - 8.0 [facility] Urine sediment bacteria coun t by microscopy (number/high power field)Ordered By: Linda Madison on 01-15-2025 Bacteria LM.HPF (Urine sed) [#/Area] 0 /[HPF] None Seen [facility] Urine specific gravity measu rementOrdered By: Linda Madison on 01-15-2025 Specific gravity (U) [Rel density] 1.010 1.002-1.[address] [facility] Urine urobilinogen measureme ntOrdered By: Linda Madison on 01-15-2025 Urobilinogen Ql (U) Normal mg/dl Normal [facility] White blood cell (WBC) count Ordered By: Linda Madison on 01-15-2025 WBC (Bld) [#/Vol] 9.7 10*3/uL 4.4-11.0 [facility] White blood cell countOrdere d By: Linda Madison on 01-15-2025 White blood cell count 0-5 SEEN /hpf 0-5 [facility] CNTHERAPYon 01-13-2025 CNTHERAPY Normal [facility] Bacteria Ur Culton Bacteria identified Cx Nom (U) Abnormal [facility] Comment on above: Performed By: #### 6 30-4 ####[facility] [id number] [place] [address] [place] CNOVon 01-12-2025 CNOV Normal [facility] UA DIP, URINE (POC)on 2024 BILIRUBIN UA (POCT) Negative Negative [facility] CLARITY UA (POCT) Cloudy [facility] COLOR UA (POCT) Yellow [facility] GLUCOSE UA (POCT) Negative Negative mg/dL [facility] Hemoglobin Ql (U) Moderate Abnormal [facility] Interpretation and review of laboratory results Abnormal [facility] KETONE UA (POCT) Negative Negative mg/dL [facility] LEUKOCYTES UA (POCT) Moderate Abnormal Negative [facility] NITRITE UA (POCT) Negative Negative [facility] PH UA (POCT) 6.5 4.5 - 8.0 [facility] Protein Ql (U) 100 mg/dL Abnormal Negative [facility] SPECIFIC GRAVITY UA (POCT) 1.015 1 .005 - 1.030 [facility] UROBILINOGEN UA (POCT) 0.2 Jovita l E.U./dL [facility] Location:[address], [place], [place], [address] [place] [address] POINT OF CARE [facility] CNTHERAPYon 01-06-2025 CNTHERAPY Normal [facility] Bacteria Ur Culton Bacteria identified Cx Nom (U) Normal [facility] Comment on above: Performed By: #### 6 30-4 ####[facility] [id number] [place] [address] [place] CNOVon 12-29-2024 CNOV Normal [facility] CNPNon 12-29-2024 CNPN Normal [facility] CNPTOUTREACHon 12-29-2024 CNPTOUTREACH Normal [facility] UA DIP, URINE (POC)on 2024 BILIRUBIN UA (POCT) Negative Negative [facility] CLARITY UA (POCT) Cloudy [facility] COLOR UA (POCT) Yellow [facility] GLUCOSE UA (POCT) Negative Negative mg/dL [facility] Hemoglobin Ql (U) Moderate Abnormal Negative [facility] Interpretation and review of laboratory results Abnormal [facility] KETONE UA (POCT) Negative Negative mg/dL [facility] LEUKOCYTES UA (POCT) Moderate Abnormal Negative [facility] NITRITE UA (POCT) Negative Negative [facility] PH UA (POCT) 6 4.5 - 8.0 [facility] Protein Ql (U) 100 mg/dL Abnormal Negative [facility] SPECIFIC GRAVITY UA (POCT) 1.015 1 .005 - 1.030 [facility] UROBILINOGEN UA (POCT) 0.2 Jovita l E.U./dL [facility] Location:[facility] [place], [address] [facility] [address] [facility], [place], [address] [facility] POINT OF CARE [facility] [id number] 12-23-2024 [id number] Normal [facility] CNTHERAPYon 12-23-2024 CNTHERAPY Normal [facility] THERAPY NTon 12-23-2024 THERAPY NT Normal [facility] CNPNon 12-11-2024 CNPN Normal [facility] CNPNon 12-08-2024 CNPN Normal [facility] CNOVon 12-04-2024 CNOV Normal [facility] XR CERVICAL 2V FLEX/EXTon XR CERVICAL 2V FLEX/EXT Normal [facility] XR ELBOW 2V AP/LAT LTon 11-25 XR ELBOW 2V AP/LAT LT Normal [facility] XR THORACIC 2V AP/LATon 11-25 XR THORACIC 2V AP/LAT Normal [facility] CNPNon 11-25-2024 CNPN Normal [facility] CNPTOUTREACHon 11-25-2024 CNPTOUTREACH Normal [facility] MR Lumbar spine WO contrasto n [...] and assume there are 5 lumbar-type vertebrae. Technical Systems Architect: RUTH Transcribe Date/Time: Nov 20 2024 2:58P Dictated by : KIERA HORN MD This examination was interpreted and the report reviewed and electronically signed by: KIERA HORN MD on Nov 20 2024 3:04PM [facility] DIVISION OF RADIOLOGY * * *Final Report* [...] recesses as well as moderate left and [id number] right foraminal stenosis. No substantial central stenosis. Sacrum and iliac wings: The visualized sacrum and iliac wings are within normal limits. DIVISION OF RADIOLOGY Provider, Benoit vidales [place] - 11/20/2024 * * *Final Report* * [...] recesses as well as moderate left and [id number] right foraminal stenosis. No substantial central stenosis. [...] and assume there are 5 lumbar-type vertebrae. Technical Systems Architect: [facility] Transcribe Date/Time: Nov 20 2024 2:58P Dictated by : KIERA HORN MD This examination was interpreted and the report reviewed and electronically signed by: KIERA HORN MD on Nov 20 2024 3:04PM EST [facility] Radiology Study observation (narrative) [facility] MR Lumbar spine WO contrastO rdered By: [facility] Provider on 11-20-2024 [facility] MRI LUMBAR SPINE WO IVCONon 11-20-2024 MRI LUMBAR SPINE WO IVCON Normal [facility] CNOVon 11-18-2024 CNOV Normal [facility] NITRIC OXIDE, EXHALEDon 10-27 Alexandra Soliz, HARDNESS INSPECTOR 11/18/2024 11:18 AM RESPIRATORY THERAPY ORAL EXHALED [...] Oxide (ppb) 11/18/2024 12.0 NAME: Alexandra Soliz, IVAN PATIENT NAME: Nadja Chaudhari DATE: November 18, 2024 TIME: 11:18 AM [facility] MRI 3D POST PROCESSINGon MRI 3D POST PROCESSING Normal [facility] MRI PANC/TRISH WO/W IVCONon MRI PANC/TRISH WO/W IVCON Normal [facility] CNOVon 11-05-2024 CNOV Normal [facility] CNOVon 10-30-2024 CNOV Normal [facility] NM Biliary ducts and Gallbla dder Views for patency of biliary structures and ejection fraction W sincalide and W radionuclide [place] 10-23-2024 IMPRESSION: No scintigraphic evidence of cystic duct obstruction. Ejection fraction of 64%. Technical Systems Architect: RUTH Transcribe Date/Time: Oct 23 2024 12:10P Dictated by : ELLIE GARCÍA MD This examination was interpreted and the report reviewed and electronically signed by: ELLIE GARCÍA MD on Oct 23 2024 12:13PM [facility] DIVISION OF RADIOLOGY * * *Final Report* * * DATE OF EXAM: Oct 23 2024 11:45AM [facility] 0021 - [place] HEPATOBILIARY W EF AND/OR [...] hour, indicating patency. DIVISION [facility] RADIOLOGY [facility] - 10/23/2024 * * *Final Report* * [...] cystic duct obstruction. Ejection fraction of 64%. Technical Systems Architect: RUTH Transcribe Date/Time: Oct 23 2024 12:10P Dictated by : ELLIE GARCÍA MD This examination was interpreted and the report reviewed and electronically signed by: ELLIE GARCÍA MD on Oct 23 2024 12:13PM EST [facility] Radiology Study observation (narrative) [facility] Biliary ducts and Gallbla dder Views for patency of biliary structures and ejection fraction W sincalide and W radionuclide IVOrdered By: Ccf Provider on 10-23-2024 [facility] NM HEPATOBILIARY W EF AND/OR RXon 10-23-2024 NM HEPATOBILIARY W EF AND/OR RX Normal [facility] CNPNon 10-08-2024 CNPN Normal [facility] US ABD RIGHT UPPER QUADRANTo n 10-06-2024 US ABD RIGHT UPPER QUADRANT Normal [facility] US ABD SPLEEN -NBon 10-07-19 US ABD SPLEEN -NB Normal [facility] ALBUMIN/CREATININE RATIO, UR INEon 10-04-2024 Albumin DL <= 20 mg/L (U) [Mass/Vol] mg/dL Normal [facility] Comment on above: Order Comment: Speci men Type: URINE SPECIMENOrdering Facility: [facility] Address: [address] [place] [address] Performed By: #### U ACR ####[facility] [id number] [place] [address] [place] Albumin/Creatinine (U) [Mass ratio] <23 Normal <30 [facility] Comment on above: Order Comment: Speci men Type: URINE SPECIMENOrdering Facility: [facility] Address: [address] [place] [address] Result Comment: Adul t Male and Female Nephrotic Criteria:<30 mg/g is considered normal to mildly cnpsubqnc02-350 mg/g is considered moderately increased>300 mg/g is considered severely increasedKDIGO. (2013). KDIGO 2012 Clinical Practice Guideline for the Evaluation and Management of Chronic Kidney Disease. Official Journal of the International Society of Nephrology, 3(1), 1-150. Performed By: #### U ACR ####[facility] [id number] [address] [address] [place] Creatinine (U) [Mass/Vol] 52.1 mg/dL Normal 20.0-300.0 [facility] Comment on above: Order Comment: Speci men Type: URINE SPECIMENOrdering Facility: [facility] Address: [address] [place] [address] Performed By: #### U ACR ####[facility] [id number] [address] [address] [place] Urinalysis complete panel (U )on 10-04-2024 Bacteria LM.HPF (Urine sed) [#/Area] Negative Normal Negative [facility] Comment on above: Order Comment: Speci men Type: URINE SPECIMENOrdering Facility: [facility] Address: [address] [place] [address] Performed By: #### 2 4356-8 ####[facility] [id number] [address] [address] [place] Bilirubin Ql (U) Negative Normal Negative [facility] Comment on above: Order Comment: Speci men Type: URINE SPECIMENOrdering Facility: [facility] Address: [address] [place] [address] Performed By: #### 2 4356-8 ####[facility] [id number] [place] [address] [place] Clarity (Unsp spec) Clear Normal [facility] Comment on above: Order Comment: Speci men Type: URINE SPECIMENOrdering Facility: [facility] Address: [address] [place] [address] Performed By: #### 2 4356-8 ####[facility] [id number] [place] [address] [place] Color (U) Yellow Normal Yellow [facility] Comment on above: Order Comment: Speci men Type: URINE SPECIMENOrdering Facility: [facility] Address: [address] [place] [address] Performed By: #### 2 4356-8 ####[facility] [id number] [address], [facility]95 [place] Epithelial cells LM.HPF (Urine sed) [#/Area] None Seen Normal [facility] Comment on above: Order Comment: Speci men Type: URINE SPECIMENOrdering Facility: [facility] Address: [address] [place] [address] Performed By: #### 2 4356-8 ####[facility] [id number] [address] [place] [address] [place] Glucose Test strip (U) [Mass/Vol] Negative Normal Negative [facility] Comment on above: Order Comment: Speci men Type: URINE SPECIMENOrdering Facility: [facility] Address: [address] [place] [address] Performed By: #### 2 4356-8 ####[facility] [id number] [address], [facility]95 [place] Hemoglobin Ql (U) Negative Normal Negative [facility] Comment on above: Order Comment: Speci men Type: URINE SPECIMENOrdering Facility: [facility] Address: [address] [place] [address] Performed By: #### 2 4356-8 ####[facility] [id number] [address], [facility]95 [place] Hyaline casts (Urine sed) [#/Area] 0 /[LPF] Normal 0 /LPF [facility] Comment on above: Order Comment: Speci men Type: URINE SPECIMENOrdering Facility: [facility] Address: [address] [place] [address] Performed By: #### 2 4356-8 ####[facility] [id number] [address], [facility]95 [place] Ketones Ql (U) Negative Normal Negative [facility] Comment on above: Order Comment: Speci men Type: URINE SPECIMENOrdering Facility: [facility] Address: [address] [place] [address] Performed By: #### 2 4356-8 ####[facility] [id number] [address], [facility]95 [place] Leukocyte esterase Test strip Ql (U) Negative Normal Negative [facility] Comment on above: Order Comment: Speci men Type: URINE SPECIMENOrdering Facility: [facility] Address: [address] [place] [address] Performed By: #### 2 4356-8 ####[facility] [id number] [address], [facility]95 [place] Nitrite Ql (U) Negative Normal Negative [facility] Comment on above: Order Comment: Speci men Type: URINE SPECIMENOrdering Facility: [facility] Address: [address] [place] [address] Performed By: #### 2 4356-8 ####[facility]IA [id number] [place] [address] [place] pH (U) 6.0 [pH] Normal <8.5 [facility] Comment on above: Order Comment: Speci men Type: URINE SPECIMENOrdering Facility: [facility] Address: [address] [place] [address] Performed By: #### 2 4356-8 ####[facility] [id number] [place] [address] [place] Protein (U) [Mass/Vol] Negative Normal Negative [facility] Comment on above: Order Comment: Speci men Type: URINE SPECIMENOrdering Facility: [facility] Address: [address] [place] [address] Performed By: #### 2 4356-8 ####[facility] LABIA [id number] [place] [address] [place] RBC LM.HPF (Urine sed) [#/Area] 0-2 /HPF Normal 0-2 /HPF [facility] Comment on above: Order Comment: Speci men Type: URINE SPECIMENOrdering Facility: [facility] Address: [address] [place] [address] Performed By: #### 2 4356-8 ####[facility]IA [id number] [address], [facility]95 [place] Specific gravity (U) [Rel density] 1.012 Normal 1.005-1.03 0 [facility] Comment on above: Order Comment: Speci men Type: URINE SPECIMENOrdering Facility: [facility] Address: [address] [place] [address] Performed By: #### 2 4356-8 ####[facility] [id number] [place] [address] [place] Urobilinogen Ql (U) 0.2 EU/dL Normal 0.2-1.0 EU/dL [facility] Comment on above: Order Comment: Speci men Type: URINE SPECIMENOrdering Facility: [facility] Address: [address] [place] [address] Performed By: #### 2 4356-8 ####[facility] [id number] [place] [address] [place] WBC LM.HPF (Urine sed) [#/Area] 0-5 /HPF Normal 0-5 /HPF [facility] Comment on above: Order Comment: Speci men Type: URINE SPECIMENOrdering Facility: [facility] Address: [address] [place] [address] Performed By: #### 2 4356-8 ####[facility] [id number] [place] [address] [place] CBC W Auto Differential pane l (Bld)on 10-03-2024 Basophils (Bld) [#/Vol] 10*3/uL Normal <0.11 [facility] Comment on above: Order Comment: Speci men Type: BLOOD SPECIMENOrdering Facility: [facility] Address: [address] [place] [address] Performed By: #### 5 7021-8 ####[facility] [id number] [place] [address] [place] Basophils/100 WBC (Bld) 0.3 % Normal [facility] Comment on above: Order Comment: Speci men Type: BLOOD SPECIMENOrdering Facility: [facility] Address: [address] [place] [address] Performed By: #### 5 7021-8 ####[facility] LABCLIA [id number] [place] [address] [place] Differential cell count method Nom (Bld) Auto Normal [facility] Comment on above: Order Comment: Speci men Type: BLOOD SPECIMENOrdering Facility: [facility] Address: [address] [place] [address] Performed By: #### 5 7021-8 ####[facility] LABCLIA [id number] [place] [address] [place] Eosinophils (Bld) [#/Vol] 0.20 10*3/uL Normal <0.46 [facility] Comment on above: Order Comment: Speci men Type: BLOOD SPECIMENOrdering Facility: [facility] Address: [address] [place] [address] Performed By: #### 5 7021-8 ####[facility] LABCLIA [id number] [place] [address] [place] Eosinophils/100 WBC (Bld) 2.8 % Normal [facility] Comment on above: Order Comment: Speci men Type: BLOOD SPECIMENOrdering Facility: [facility] Address: [address] [place] [address] Performed By: #### 5 7021-8 ####[facility] LABIA [id number] [place] [address] [place] Erythrocyte distribution width (RBC) [Ratio] 13.9 % Normal 11.5-15.0 [facility] Comment on above: Order Comment: Speci men Type: BLOOD SPECIMENOrdering Facility: [facility] Address: [address] [place] [address] Performed By: #### 5 7021-8 ####[facility] LABCLIA [id number] [place] [address] [place] Hematocrit (Bld) [Volume fraction] 41.1 % Normal 36.0-46.0 [facility] Comment on above: Order Comment: Speci men Type: BLOOD SPECIMENOrdering Facility: [facility] Address: [address] [place] [address] Performed By: #### 5 7021-8 ####[facility] LABCLIA [id number] [place] [address] [place] Hemoglobin (Bld) [Mass/Vol] 13.1 g/dL Normal 11.5-15. 5 [facility] Comment on above: Order Comment: Speci men Type: BLOOD SPECIMENOrdering Facility: [facility] Address: [address] [place] [address] Performed By: #### 5 7021-8 ####[facility] LABIA [id number] [place] [address] [place] Immature granulocytes (Bld) [#/Vol] 10*3/uL Normal <0.10 [facility] Comment on above: Order Comment: Speci men Type: BLOOD SPECIMENOrdering Facility: [facility] Address: [address] [place] [address] Performed By: #### 5 7021-8 ####[facility] LABIA [id number] [place] [address] [place] Immature granulocytes/100 WBC (Bld) 0.1 % Normal [facility] Comment on above: Order Comment: Speci men Type: BLOOD SPECIMENOrdering Facility: [facility] Address: [address] [place] [address] Performed By: #### 5 7021-8 ####[facility] LABIA [id number] [place] [address] [place] Lymphocytes (Bld) [#/Vol] 3.35 10*3/uL Normal 1.00-4.0 0 [facility] Comment on above: Order Comment: Speci men Type: BLOOD SPECIMENOrdering Facility: [facility] Address: [address] [place], [place] [address] Performed By: #### 5 7021-8 ####[facility] LABIA [id number] [place] [address] [place] Lymphocytes/100 WBC (Bld) 46.4 % Normal [facility] Comment on above: Order Comment: Speci men Type: BLOOD SPECIMENOrdering Facility: [facility] Address: [address] [place] [address] Performed By: #### 5 7021-8 ####[facility] LABIA [id number] [place] [address] [place] MCH (RBC) [Entitic mass] 28.4 pg Normal 26.0-34.0 [facility] Comment on above: Order Comment: Speci men Type: BLOOD SPECIMENOrdering Facility: [facility] Address: [address] [place] [address] Performed By: #### 5 7021-8 ####[facility] LABIA [id number] [place] [address] [place] MCHC (RBC) [Mass/Vol] 31.9 g/dL Normal 30.5-36.0 [facility] Comment on above: Order Comment: Speci men Type: BLOOD SPECIMENOrdering Facility: [facility] Address: [address] [place] [address] Performed By: #### 5 7021-8 ####[facility] LABIA [id number] [place] [address] [place] MCV (RBC) [Entitic vol] 89.0 fL Normal 80.0-100.0 [facility] Comment on above: Order Comment: Speci men Type: BLOOD SPECIMENOrdering Facility: [facility] Address: [address] [place] [address] Performed By: #### 5 7021-8 ####[facility] LABIA [id number] [place] [address] [place] Monocytes (Bld) [#/Vol] 0.55 10*3/uL Normal <0.87 [facility] Comment on above: Order Comment: Speci men Type: BLOOD SPECIMENOrdering Facility: [facility] Address: [address] [place] [address] Performed By: #### 5 7021-8 ####[facility] LABCLIA [id number] [facility] [address] [place] Monocytes/100 WBC (Bld) 7.6 % Normal [facility] Comment on above: Order Comment: Speci men Type: BLOOD SPECIMENOrdering Facility: [facility] Address: [address] [place] [address] Performed By: #### 5 7021-8 ####[facility] LABCLIA [id number] [place] [address] [place] Neutrophils (Bld) [#/Vol] 3.09 10*3/uL Normal 1.45-7.5 0 [facility] Comment on above: Order Comment: Speci men Type: BLOOD SPECIMENOrdering Facility: [facility] Address: [address] [place] [address] Performed By: #### 5 7021-8 ####[facility] LABCLIA [id number] [place] [address] [place] Neutrophils/100 WBC (Bld) 42.8 % Normal [facility] Comment on above: Order Comment: Speci men Type: BLOOD SPECIMENOrdering Facility: [facility] Address: [address] [place] [address] Performed By: #### 5 7021-8 ####[facility] LABCLIA [id number] [place] [address] [place] Nucleated RBC (Bld) [#/Vol] 10*3/uL Normal <0.01 [facility] Comment on above: Order Comment: Speci men Type: BLOOD SPECIMENOrdering Facility: [facility] Address: [address] [place] [address] Performed By: #### 5 7021-8 ####[facility] LABCLIA [id number] [place] [address] [place] Nucleated RBC/100 WBC (Bld) [Ratio] 0.0 /100 WBC Normal [facility] Comment on above: Order Comment: Speci men Type: BLOOD SPECIMENOrdering Facility: [facility] Address: [address] [place] [address] Performed By: #### 5 7021-8 ####[facility] LABIA [id number] [place] [address] [place] Platelet mean volume (Bld) [Entitic vol] 10.7 fL Normal 9.0-12.7 [facility] Comment on above: Order Comment: Speci men Type: BLOOD SPECIMENOrdering Facility: [facility] Address: [address] [place] [address] Performed By: #### 5 7021-8 ####[facility] LABIA [id number] [place] [address] [place] Platelets (Bld) [#/Vol] 156 10*3/uL Normal 150-400 [facility] Comment on above: Order Comment: Speci men Type: BLOOD SPECIMENOrdering Facility: [facility] Address: [address] [place] [address] Performed By: #### 5 7021-8 ####[facility] LABCLIA [id number] [place] [address] [place] RBC (Bld) [#/Vol] 4.62 10*6/uL Normal 3.90-5.20 [facility] Comment on above: Order Comment: Speci men Type: BLOOD SPECIMENOrdering Facility: [facility] Address: [address] [place] [address] Performed By: #### 5 7021-8 ####[facility] LABCLIA [id number] [address] [place] [address] [place] WBC (Bld) [#/Vol] 7.22 10*3/uL Normal 3.70-11.00 [facility] Comment on above: Order Comment: Speci men Type: BLOOD SPECIMENOrdering Facility: [facility] Address: [address] [place], [place] [address] Performed By: #### 5 7021-8 ####[facility] LABCLIA [id number] [address] [place] [address] [place] CNOVon 10-03-2024 CNOV Normal [facility] metabolic 2000 panelon 10-03-2024 Albumin [Mass/Vol] 4.2 g/dL Normal 3.9-4.9 [facility] Comment on above: Order Comment: Speci men Type: BLOOD SPECIMENOrdering Facility: [facility] Address: [address] [place], [place] [address] Performed By: #### 2 4323-8, 3040-3 ####[facility] LABCLIA [id number] [address] [place] [address] [place] ALP [Catalytic activity/Vol] 84 U/L Normal 34-123 [facility] Comment on above: Order Comment: Speci men Type: BLOOD SPECIMENOrdering Facility: [facility] Address: [address] [place], [place] [address] Performed By: #### 2 4323-8, 3040-3 ####[facility] LABCLIA [id number] [address] [place] [address] [place] ALT [Catalytic activity/Vol] 20 U/L Normal 7-38 [facility] Comment on above: Order Comment: Speci men Type: BLOOD SPECIMENOrdering Facility: [facility] Address: [address] [place], [place] [address] Performed By: #### 2 4323-8, 3040-3 ####[facility] LABCLIA [id number] [address] [place] [address] [place] Anion gap [Moles/Vol] 13 mmol/L Normal 8-15 [facility] Comment on above: Order Comment: Speci men Type: BLOOD SPECIMENOrdering Facility: [facility] Address: [address] [place] [address] Performed By: #### 2 4323-8, 3040-3 ####[facility] LABCLIA [id number] [facility] [place] [id number] [place] AST [Catalytic activity/Vol] 22 U/L Normal 13-35 [facility] Comment on above: Order Comment: Speci men Type: BLOOD SPECIMENOrdering Facility: [facility] Address: [address] [place] [address] Performed By: #### 2 4323-8, 3039-3 ####[facility] LABCLIA [id number] [place] [address] [place] Bilirubin [Mass/Vol] 0.4 mg/dL Normal 0.2-1.3 [facility] Comment on above: Order Comment: Speci men Type: BLOOD SPECIMENOrdering Facility: [facility] Address: [address] [place] [address] Performed By: #### 2 4323-8, 3039-3 ####[facility] LABCLIA [id number] [facility] [place] [id number] [place] Calcium [Mass/Vol] 9.4 mg/dL Normal 8.5-10.2 [facility] Comment on above: Order Comment: Speci men Type: BLOOD SPECIMENOrdering Facility: [facility] Address: [address] [place], [place] [address] Performed By: #### 2 4323-8, 3040-3 ####[facility] LABCLIA [id number] [facility] [place] [id number] [place] Chloride [Moles/Vol] 105 mmol/L Normal 98-107 [facility] Comment on above: Order Comment: Speci men Type: BLOOD SPECIMENOrdering Facility: [facility] Address: [address] [place] [address] Performed By: #### 2 4323-8, 3039-3 ####[facility] LABCLIA [id number] [place] [address] [place] CO2 [Moles/Vol] 22 mmol/L Normal 22-30 [facility] Comment on above: Order Comment: Speci men Type: BLOOD SPECIMENOrdering Facility: [facility] Address: [address] [place] [address] Performed By: #### 2 4323-8, 3 ####[facility] LABCLIA [id number] [address] [place] Creatinine [Mass/Vol] 0.95 mg/dL Normal 0.58-0.96 [facility] Comment on above: Order Comment: Speci men Type: BLOOD SPECIMENOrdering Facility: [facility] Address: [address] [place] [address] Performed By: #### 2 4323-8, 3 ####[facility] LABCLIA [id number] [address] Creatinine and Glomerular filtration rate.predicted panel (S/P/Bld) 63 mL/min/1.73m??? Normal >=60 [facility] Comment on above: Order Comment: Speci men Type: BLOOD SPECIMENOrdering Facility: [facility] Address: [address] [place] [address] Result Comment: Koki mated Glomerular Filtration Rate [...] GFR. Performed By: #### 2 4323-8, 3039-3 ####[facility] LABCLIA [id number] [address] [address] [place] Glucose [Mass/Vol] 108 mg/dL High 74-99 [facility] Comment on above: Order Comment: Speci men Type: BLOOD SPECIMENOrdering Facility: [facility] Address: [address] [place] [address] Result Comment: The [place] [employer] (ADA) provides guidance for cutoff [...] Standards of Medical Care in Diabetes 2016, [place] [employer]. Diabetes Care. 2016.39(Suppl 1). Performed By: #### 2 4323-8, 3039-3 ####[facility] LABIA [id number] [place] [address] [place] Potassium [Moles/Vol] 4.2 mmol/L Normal 3.7-5.1 [facility] Comment on above: Order Comment: Speci men Type: BLOOD SPECIMENOrdering Facility: [facility] Address: [address] [place] [address] Performed By: #### 2 4323-8, 3039-3 ####[facility] LABIA [id number] [place] [address] [place] Protein [Mass/Vol] 7.1 g/dL Normal 6.3-8.0 [facility] Comment on above: Order Comment: Speci men Type: BLOOD SPECIMENOrdering Facility: [facility] Address: [address] [place], [place] [address] Performed By: #### 2 4323-8, 3039-3 ####[facility] LABCLIA [id number] [place] [address] [place] Sodium [Moles/Vol] 140 mmol/L Normal 136-144 [facility] Comment on above: Order Comment: Speci men Type: BLOOD SPECIMENOrdering Facility: [facility] Address: [address] [place] [address] Performed By: #### 2 4323-8, 3040-3 ####[facility] LABIA [id number] [place] [address] [place] Urea nitrogen [Mass/Vol] 24 mg/dL High 7-21 [facility] Comment on above: Order Comment: Speci men Type: BLOOD SPECIMENOrdering Facility: [facility] Address: [address] [place] [address] Performed By: #### 2 4323-8, 3040-3 ####[facility] LABIA [id number] [place] [address] [place] Lipase SerPl-cCncon 10-04-19 25 Lipase [Catalytic activity/Vol] 30 U/L Normal 16-61 [facility] Comment on above: Order Comment: Speci men Type: BLOOD SPECIMENOrdering Facility: [facility] Address: [address] [place] [address] Performed By: #### 2 4323-8, 3040-3 ####[facility] LABIA [id number] [place] [address] [place] XR HIP TRISH 5V PEL+ AP/LAT EA HIPon 10-03-2024 XR HIP TRISH 5V PEL+ AP/LAT EA HIP Normal [facility] XR LUMBAR 3V AP/LAT/L5-S1on 10-03-2024 XR LUMBAR 3V AP/LAT/L5-S1 Normal [facility] CNOVon 09-23-2024 CNOV Normal [facility] Bacteria Ur Culton Bacteria identified Cx Nom (U) ORGANISM ID: 1 10,000 -<50,000 CFU/ml Normal urogenital monica Normal [facility] Comment on above: Performed By: #### 6 30-4 ####[facility] LABCLIA [id number] [address] [place] CNOVon 09-11-2024 CNOV Normal [facility] PT panel Coag (PPP)on 2024 INR Coag (PPP) [Relative time] 1.0 {INR} Normal 0.9-1.3 [facility] Comment on above: Order Comment: Speci men Type: BLOOD SPECIMENOrdering Facility: [facility] Address: [address] [place] [address] Result Comment: Karo min K Antagonist (VKA) Therapeutic Range: INR 2 to 3 (Target INR of 2.5)Note: For patients treated with VKA drugs, such as warfarin, the [place] [employer] 2012 Guideline recommends [...] of 3).Juan GH, et al. Chest 2012, 141:7S-47SNishmariluzura RA, et al. [facility] 2017, 70: 252-289 Performed By: #### 3 4528-0 ####[facility] [id number] [place] [address] [place] PT Coag (PPP) [Time] 10.6 s Normal <13.1 [facility] Comment on above: Order Comment: Speci men Type: BLOOD SPECIMENOrdering Facility: [facility] Address: [address] [place] [address] Performed By: #### 3 4528-0 ####[facility] [id number] [place] [address] [place] Renal function 2000 panelOrd ered By: Dominick Lim on 09-11-2024 Albumin [Mass/Vol] 4.1 g/dL 3.9 - 4.9 g/dL [facility] Anion gap [Moles/Vol] 8 mmol/L 8 - 15 mmol/L [facility] Calcium [Mass/Vol] 9.4 mg/dL 8.5 - 10. 2 mg/dL [facility] Chloride [Moles/Vol] 104 mmol/L 98 - 10 7 mmol/L [facility] CO2 [Moles/Vol] 27 mmol/L 22 - 30 mmol/L [facility] Creatinine [Mass/Vol] 0.91 mg/dL 0.58 - 0.96 mg/dL [facility] GFR/1.73 sq M.predicted among non-blacks MDRD (S/P/Bld) [Vol rate/Area] 66 mL/min/{1.73_m2} - [facility] Comment on above: Estimated Glomerular Filtration [...] 106 mg/dL High 74 - 99 mg/dL [facility] Comment on above: The [place] Di[employer] Association (ADA) provides guidance for [...] Standards of Medical Care in Diabetes 2016, [place] [employer]. Diabetes Care. 2016.39(Suppl 1). Interpretation and review of laboratory results Abnormal [facility] Phosphate [Mass/Vol] 3.2 mg/dL 2.7 - 4 .8 mg/dL [facility] Potassium [Moles/Vol] 4.2 mmol/L 3.7 - 5.1 mmol/L [facility] Sodium [Moles/Vol] 139 mmol/L 136 - 144 mmol/L [facility] Urea nitrogen [Mass/Vol] 20 mg/dL 7 - 21 mg/dL [facility] Renal function 2000 panelon 09-11-2024 Albumin [Mass/Vol] 4.1 g/dL Normal 3.9-4.9 [facility] Comment on above: Order Comment: Speci men Type: BLOOD SPECIMENOrdering Facility: [facility] Address: [address] [place] [address] Performed By: #### 2 4362-6 ####[facility] [id number] [place] [address] [place] Anion gap [Moles/Vol] 8 mmol/L Normal 8-15 [facility] Comment on above: Order Comment: Speci men Type: BLOOD SPECIMENOrdering Facility: [facility] Address: [address] [place] [address] Performed By: #### 2 4362-6 ####[facility]IT[facility] [id number] [place] [address] [place] Calcium [Mass/Vol] 9.4 mg/dL Normal 8.5-10.2 [facility] Comment on above: Order Comment: Speci men Type: BLOOD SPECIMENOrdering Facility: [facility] Address: [address] [place] [address] Performed By: #### 2 4362-6 ####[facility] [id number] [place] [address] [place] Chloride [Moles/Vol] 104 mmol/L Normal 98-107 [facility] Comment on above: Order Comment: Speci men Type: BLOOD SPECIMENOrdering Facility: [facility] Address: [address] [place] [address] Performed By: #### 2 4362-6 ####[facility] [id number] [place] [address] [place] CO2 [Moles/Vol] 27 mmol/L Normal 22-30 [facility] Comment on above: Order Comment: Speci men Type: BLOOD SPECIMENOrdering Facility: [facility] Address: [address] [place] [address] Performed By: #### 2 4362-6 ####[facility] [id number] [place] [address] [place] Creatinine [Mass/Vol] 0.91 mg/dL Normal 0.58-0.96 [facility] Comment on above: Order Comment: Speci men Type: BLOOD SPECIMENOrdering Facility: [facility] Address: [address] [place] [address] Performed By: #### 2 4362-6 ####[facility] [id number] [address] [place] Creatinine and Glomerular filtration rate.predicted panel (S/P/Bld) 66 mL/min/1.73m??? Normal >=60 [facility] Comment on above: Order Comment: Speci men Type: BLOOD SPECIMENOrdering Facility: [facility] Address: [address] [place] [address] Result Comment: Koki mated Glomerular Filtration Rate [...] actual GFR. Performed By: #### 2 4362-6 ####[facility] [id number] [place] [address] [place] Glucose [Mass/Vol] 106 mg/dL High 74-99 [facility] Comment on above: Order Comment: Speci men Type: BLOOD SPECIMENOrdering Facility: [facility] Address: [address] [place], [place] [address] Result Comment: The [place] [employer] (ADA) provides guidance for cutoff [...] Standards of Medical Care in Diabetes 2016, [place] [employer]. Diabetes Care. 2016.39(Suppl 1). Performed By: #### 2 4362-6 ####[facility] H[facility]ITALWSHANTLIA [id number] [place] [address] [place] Phosphate [Mass/Vol] 3.2 mg/dL Normal 2.7-4.8 [facility] Comment on above: Order Comment: Speci men Type: BLOOD SPECIMENOrdering Facility: [facility] Address: [address] [place], [place] [address] Performed By: #### 2 4362-6 ####[facility] HOS[facility]ITALWSHANTLIA [id number] [place] [id number] [place] Potassium [Moles/Vol] 4.2 mmol/L Normal 3.7-5.1 [facility] Comment on above: Order Comment: Speci men Type: BLOOD SPECIMENOrdering Facility: [facility] Address: [address] [place], [place] [address] Performed By: #### 2 4362-6 ####[facility]ITAL[facility]ANTLIA [id number] [place] [address] [place] Sodium [Moles/Vol] 139 mmol/L Normal 136-144 [facility] Comment on above: Order Comment: Speci men Type: BLOOD SPECIMENOrdering Facility: [facility] Address: [address] [place] [address] Performed By: #### 2 4362-6 ####[facility] [id number] [place] [address] [place] Urea nitrogen [Mass/Vol] 20 mg/dL Normal 7-21 [facility] Comment on above: Order Comment: Speci men Type: BLOOD SPECIMENOrdering Facility: [facility] Address: [address] [place] [address] Performed By: #### 2 4362-6 ####[facility] [id number] [place] [address] [place] UA DIP, URINE (POC)on 2024 BILIRUBIN UA (POCT) Negative Negative [facility] CLARITY UA (POCT) Slightly Cloudy Cl [facility] COLOR UA (POCT) Other [facility] GLUCOSE UA (POCT) Negative Negative mg/dL [facility] Hemoglobin Ql (U) Small Abnormal Negative [facility] Interpretation and review of laboratory results Abnormal [facility] KETONE UA (POCT) Negative Negative mg/dL [facility] LEUKOCYTES UA (POCT) Negative Negative [facility] NITRITE UA (POCT) Negative Negative [facility] PH UA (POCT) 6.5 4.5 - 8.0 [facility] Protein Ql (U) Negative Negative mg/dL [facility] SPECIFIC GRAVITY UA (POCT) 1.02 1 .005 - 1.030 [facility] UROBILINOGEN UA (POCT) 0.2 Jovita l E.U./dL [facility] Location:[address], [id number] [place] [address] POINT OF CARE [facility] CNPNon 08-15-2024 CNPN Normal [facility] CNPNon 08-11-2024 CNPN Normal [facility] CNOVon 07-28-2024 CNOV Normal [facility] CNPNon 07-28-2024 CNPN Normal [facility] US DVT LOWER RTon 07-28-2024 US [...] imaged segments of the right lower extremity. Technical Systems Architect: PSCVandana Transcribe Date/Time: Jul 28 2024 3:31P Dictated by : SERGO STEEN DO This examination was interpreted and the report reviewed and electronically signed by: SERGO STEEN DO on Jul 28 2024 3:32PM EST [id number] Normal [facility] US Lower extremity vein - ri keisha 07-28-2024 IMPRESSION: Negative study for proximal DVT in the right lower extremity. Negative study for proximal calf DVT in the right lower extremity with limited visualization of the distal calf veins. Negative study for superficial thrombophlebitis in the imaged segments of the right lower extremity. Technical Systems Architect: RUTH Transcribe Date/Time: Jul 28 2024 3:31P Dictated by : SERGO STEEN DO This examination was interpreted and the report reviewed and electronically signed by: SERGO STEEN DO on Jul 28 2024 3:32PM EST [facility] * * *Final Report* * [...] spontaneous respirophasic flow. Normal response to augmentation. [facility] Provider, Benoit Naqvi [place] - 07/28/2024 * * *Final Report* * [...] imaged segments of the right lower extremity. Technical Systems Architect: PSCB Transcribe Date/Time: Jul 28 2024 3:31P Dictated by : SERGO STEEN DO This examination was interpreted and the report reviewed and electronically signed by: SERGO STEEN DO on Jul 28 2024 3:32PM EST [facility] Radiology Study observation (narrative) [facility] US Lower extremity vein - ri ghtOrdered By: Ccf Provider on 07-28-2024 [facility] CBC W Auto Differential pane l (Bld)on 07-24-2024 Basophils (Bld) [#/Vol] 0.03 10*3/uL Normal <0.11 [facility] Comment on above: Order Comment: Speci men Type: BLOOD SPECIMENOrdering Facility: [facility] Address: [address] [place] [address] Performed By: #### 5 7021-8 ####[facility] MILLWWALIA [id number] [place] [address] [place] Basophils/100 WBC (Bld) 0.5 % Normal [facility] Comment on above: Order Comment: Speci men Type: BLOOD SPECIMENOrdering Facility: [facility] Address: [address] [place] [address] Performed By: #### 5 7021-8 ####[facility] [id number] [place] [address] [place] Differential cell count method Nom (Bld) Auto Normal [facility] Comment on above: Order Comment: Speci men Type: BLOOD SPECIMENOrdering Facility: [facility] Address: [address] [place] [address] Performed By: #### 5 7021-8 ####[facility] [id number] [place] [address] [place] Eosinophils (Bld) [#/Vol] 0.20 10*3/uL Normal <0.46 [facility] Comment on above: Order Comment: Speci men Type: BLOOD SPECIMENOrdering Facility: [facility] Address: [address] [place] [address] Performed By: #### 5 7021-8 ####[facility] [id number] [place] [address] [place] Eosinophils/100 WBC (Bld) 3.4 % Normal [facility] Comment on above: Order Comment: Speci men Type: BLOOD SPECIMENOrdering Facility: [facility] Address: [address] [place] [address] Performed By: #### 5 7021-8 ####[facility] ELIWNCLIA [id number] [place] [address] [place] Erythrocyte distribution width (RBC) [Ratio] 14.7 % Normal 11.5-15.0 [facility] Comment on above: Order Comment: Speci men Type: BLOOD SPECIMENOrdering Facility: [facility] Address: [address] [place] [address] Performed By: #### 5 7021-8 ####[facility]ITALNCLIA [id number] [place] [address] [place] Hematocrit (Bld) [Volume fraction] 39.9 % Normal 36.0-46.0 [facility] Comment on above: Order Comment: Speci men Type: BLOOD SPECIMENOrdering Facility: [facility] Address: [address] [place] [address] Performed By: #### 5 7021-8 ####[facility]ITALNCLIA [id number] [place] [address] [place] Hemoglobin (Bld) [Mass/Vol] 12.7 g/dL Normal 11.5-15. 5 [facility] Comment on above: Order Comment: Speci men Type: BLOOD SPECIMENOrdering Facility: [facility] Address: [address] [place] [address] Performed By: #### 5 7021-8 ####[facility] HOSPITALWNCLIA [id number] [place] [address] [place] Immature granulocytes (Bld) [#/Vol] 10*3/uL Normal <0.10 [facility] Comment on above: Order Comment: Speci men Type: BLOOD SPECIMENOrdering Facility: [facility] Address: [address] [place] [address] Performed By: #### 5 7021-8 ####[facility] HOSPITALSHANTLIA [id number] [place] [address] [place] Immature granulocytes/100 WBC (Bld) 0.2 % Normal [facility] Comment on above: Order Comment: Speci men Type: BLOOD SPECIMENOrdering Facility: [facility] Address: [address] [place] [address] Performed By: #### 5 7021-8 ####[facility] [id number] [place] [address] [place] Lymphocytes (Bld) [#/Vol] 2.94 10*3/uL Normal 1.00-4.0 0 [facility] Comment on above: Order Comment: Speci men Type: BLOOD SPECIMENOrdering Facility: [facility] Address: [address] [place] [address] Performed By: #### 5 7021-8 ####[facility] [id number] [place] [address] [place] Lymphocytes/100 WBC (Bld) 49.5 % Normal [facility] Comment on above: Order Comment: Speci men Type: BLOOD SPECIMENOrdering Facility: [facility] Address: [address] [place] [address] Performed By: #### 5 7021-8 ####[facility] [id number] [place] [address] [place] MCH (RBC) [Entitic mass] 28.3 pg Normal 26.0-34.0 [facility] Comment on above: Order Comment: Speci men Type: BLOOD SPECIMENOrdering Facility: [facility] Address: [address] [place] [address] Performed By: #### 5 7021-8 ####[facility] [id number] [place] [address] [place] MCHC (RBC) [Mass/Vol] 31.8 g/dL Normal 30.5-36.0 [facility] Comment on above: Order Comment: Speci men Type: BLOOD SPECIMENOrdering Facility: [facility] Address: [address] [place] [address] Performed By: #### 5 7021-8 ####[facility] HOSPITALNCLI [id number] [place] [address] [place] MCV (RBC) [Entitic vol] 88.9 fL Normal 80.0-100.0 [facility] Comment on above: Order Comment: Speci men Type: BLOOD SPECIMENOrdering Facility: [facility] Address: [address] [place] [address] Performed By: #### 5 7021-8 ####[facility]ITALNCSEVI[facility] [id number] [place] [address] [place] Monocytes (Bld) [#/Vol] 0.52 10*3/uL Normal <0.87 [facility] Comment on above: Order Comment: Speci men Type: BLOOD SPECIMENOrdering Facility: [facility] Address: [address] [place] [address] Performed By: #### 5 7021-8 ####[facility] HOSPITALNCLIA [id number] [place] [address] [place] Monocytes/100 WBC (Bld) 8.8 % Normal [facility] Comment on above: Order Comment: Speci men Type: BLOOD SPECIMENOrdering Facility: [facility] Address: [address] [place] [address] Performed By: #### 5 7021-8 ####[facility] HOSPITALNCLIA [id number] [place] [address] [place] Neutrophils (Bld) [#/Vol] 2.24 10*3/uL Normal 1.45-7.5 0 [facility] Comment on above: Order Comment: Speci men Type: BLOOD SPECIMENOrdering Facility: [facility] Address: [address] [place] [address] Performed By: #### 5 7021-8 ####[facility] MARILYNWSHANTLIA [id number] [address] Neutrophils/100 WBC (Bld) 37.6 % Normal [facility] Comment on above: Order Comment: Speci men Type: BLOOD SPECIMENOrdering Facility: [facility] Address: [address] [place] [address] Performed By: #### 5 7021-8 ####[facility]OS[facility]ITALNCLIA [id number] [place] [address] [place] Nucleated RBC (Bld) [#/Vol] 10*3/uL Normal <0.01 [facility] Comment on above: Order Comment: Speci men Type: BLOOD SPECIMENOrdering Facility: [facility] Address: [address] [place] [address] Performed By: #### 5 7021-8 ####[facility] HOSPITALNCLIA [id number] [place] [address] [place] Nucleated RBC/100 WBC (Bld) [Ratio] 0.0 /100 WBC Normal [facility] Comment on above: Order Comment: Speci men Type: BLOOD SPECIMENOrdering Facility: [facility] Address: [address] [place] [address] Performed By: #### 5 7021-8 ####[facility]IL[facility] HOSPITALLIA [id number] [place] [address] [place] Platelet mean volume (Bld) [Entitic vol] 10.6 fL Normal 9.0-12.7 [facility] Comment on above: Order Comment: Speci men Type: BLOOD SPECIMENOrdering Facility: [facility] Address: [address] [place] [address] Performed By: #### 5 7021-8 ####[facility]ABIL[facility] HOSPITALLIA [id number] [place] [address] [place] Platelets (Bld) [#/Vol] 274 10*3/uL Normal 150-400 [facility] Comment on above: Order Comment: Speci men Type: BLOOD SPECIMENOrdering Facility: [facility] Address: [address] [place] [address] Performed By: #### 5 7021-8 ####[facility] HOSPITALNCMARILUZA [id number] [place] [address] [place] RBC (Bld) [#/Vol] 4.49 10*6/uL Normal 3.90-5.20 [facility] Comment on above: Order Comment: Speci men Type: BLOOD SPECIMENOrdering Facility: [facility] Address: [address] [place] [address] Performed By: #### 5 7021-8 ####[facility] HOSPITALJEANNETTE [id number] [place] [address] [place] WBC (Bld) [#/Vol] 5.94 10*3/uL Normal 3.70-11.00 [facility] Comment on above: Order Comment: Speci men Type: BLOOD SPECIMENOrdering Facility: [facility] Address: [address] [place] [address] Performed By: #### 5 7021-8 ####[facility] HOSPITALNCLIJoel [id number] [place] [address] [place] CNPNon 07-24-2024 CNPN Normal [facility] Comprehensive metabolic 2000 panelon 07-24-2024 Albumin [Mass/Vol] 3.9 g/dL Normal 3.9-4.9 [facility] Comment on above: Order Comment: Speci men Type: BLOOD SPECIMENOrdering Facility: [facility] Address: [address] [place] [address] Performed By: #### 2 4323-8 ####[facility] HOSPITALSHANTLIA [id number] [place] [address] [place]#### 76829-9 ####[facility]ORATORYCLIA [id number] [address] STATES OF [facility] HOSPITALLIA [id number] [place] [address] [place] ALP [Catalytic activity/Vol] 94 U/L Normal 34-123 [facility] Comment on above: Order Comment: Speci men Type: BLOOD SPECIMENOrdering Facility: [facility] Address: [address] [place], [place] [address] Performed By: #### 2 4323-8 ####[facility]HABIL[facility] HOSPITALLIA [id number] [place] [address] [place]#### 48281-6 ####[facility]ORATORYCLIA [id number] [address] STATES [facility] [id number] [place] [address] [place] ALT [Catalytic activity/Vol] 20 U/L Normal 7-38 [facility] Comment on above: Order Comment: Speci men Type: BLOOD SPECIMENOrdering Facility: [facility] Address: [address] [place] [address] Performed By: #### 2 4323-8 ####[facility]HABILITATION HOSPITALLIA [id number] [place] [address] [place]#### 52104-1 ####[facility] LABORATORYCLIA [id number] [address] STATES OF [facility] CEDRICMEDICAL CENTER [facility] SOUT[facility] – DURANTLIA [id number] [place] [address] [place] Anion gap [Moles/Vol] 11 mmol/L Normal 8-15 [facility] Comment on above: Order Comment: Speci men Type: BLOOD SPECIMENOrdering Facility: [facility] Address: [address] [place] [address] Performed By: #### 2 4323-8 ####[facility] MILLTOWNCLIA [id number] [place] [address] [place]#### 32878-7 ####[facility]ORATORYCLIA [id number] [address] STATES OF [facility] HOSPITALLI [id number] [place] [address] [place] AST [Catalytic activity/Vol] 20 U/L Normal 13-35 [facility] Comment on above: Order Comment: Speci men Type: BLOOD SPECIMENOrdering Facility: [facility] Address: [address] [place] [address] Performed By: #### 2 4323-8 ####[facility] HOSPITALWNCLIA [id number] [place] [address] [place]#### 54456-0 ####[facility]ORATORYCLIA [id number] [address] STATES OF [facility] [id number] [place] [address] [place] Bilirubin [Mass/Vol] 0.3 mg/dL Normal 0.2-1.3 [facility] Comment on above: Order Comment: Speci men Type: BLOOD SPECIMENOrdering Facility: [facility] Address: [address] [place] [address] Performed By: #### 2 4323-8 ####[facility] HOSPITALWWALIA [id number] [place] [address] [place]#### 27976-5 ####[facility] LABORATORYCLIA [id number] [address] STATES OF AMERICABAP[facility] [id number] [place] [address] [place] Calcium [Mass/Vol] 9.0 mg/dL Normal 8.5-10.2 [facility] Comment on above: Order Comment: Speci men Type: BLOOD SPECIMENOrdering Facility: [facility] Address: [address] [place] [address] Performed By: #### 2 4323-8 ####[facility] MILLTOWNCLIA [id number] [place] [address] [place]#### 00152-1 ####[facility] LABORATORYCLIA [id number] [place] [address] [place] AMERICASELECT MEDICAL TRIHEALTH REHABILITATION HOSPITALLIA [id number] [place] [address] [place] Chloride [Moles/Vol] 104 mmol/L Normal 98-107 [facility] Comment on above: Order Comment: Speci men Type: BLOOD SPECIMENOrdering Facility: [facility] Address: [address] [place] [address] Performed By: #### 2 4323-8 ####[facility] HOSPITALWNCLIA [id number] [place] [address] [place]#### 47872-9 ####[facility] LABORATORYCLIA [id number] [place] [address] [place] AMERICAMEMORIAL [facility] MILLTOWNCLIA [id number] [place] [address] [place] CO2 [Moles/Vol] 24 mmol/L Normal 22-30 [facility] Comment on above: Order Comment: Speci men Type: BLOOD SPECIMENOrdering Facility: [facility] Address: [address] [place] [address] Performed By: #### 2 4323-8 ####[facility] MILLTOWNCLIA [id number] [address]#### 35186-4 ####[facility] RENSSELAERIA [id number] [address] [id number] [address] Creatinine [Mass/Vol] 0.86 mg/dL Normal 0.58-0.96 [facility] Comment on above: Order Comment: Speci men Type: BLOOD SPECIMENOrdering Facility: [facility] Address: [address] [place] [address] Performed By: #### 2 4323-8 ####[facility] [id number] [address]#### 39926-9 ####[facility] RENSSELAERIA [id number] [address] [id number] [address] Creatinine and Glomerular filtration rate.predicted panel (S/P/Bld) 71 mL/min/1.73m??? Normal >=60 [facility] Comment on above: Order Comment: Speci men Type: BLOOD SPECIMENOrdering Facility: [facility] Address: [address] [place] [address] Result Comment: Koki mated Glomerular Filtration Rate [...] actual GFR. Performed By: #### 2 4323-8 ####[facility]HABILITATION HOSPITALLI [id number] [address]#### 95479-9 ####[facility] LABORATORYCLIA [id number] [address] STATES AMERICABAP[facility] [id number] [place] [address] [place] Glucose [Mass/Vol] 111 mg/dL High 74-99 [facility] Comment on above: Order Comment: Speci men Type: BLOOD SPECIMENOrdering Facility: [facility] Address: [address] [place] [address] Result Comment: The [place] Diabetes Association (ADA) provides guidance for cutoff [...] Standards of Medical Care in Diabetes 2016, [place] [employer]. Diabetes Care. 2016.39(Suppl 1). Performed By: #### 2 4323-8 ####[facility] [id number] [place] [address] [place]#### 87038-8 ####[facility] LABORATORYCLIA [id number] [address] [id number] [place] [address] [place] Potassium [Moles/Vol] 4.0 mmol/L Normal 3.7-5.1 [facility] Comment on above: Order Comment: Speci men Type: BLOOD SPECIMENOrdering Facility: [facility] Address: [address] [place] [address] Performed By: #### 2 4323-8 ####[facility] [id number] [place] [address] [place]#### 99568-5 ####[facility]ORATORYCLIA [id number] [address] CEDRIC MILLTOWNCLIA [id number] [place] [address] [place] Protein [Mass/Vol] 6.8 g/dL Normal 6.3-8.0 [facility] Comment on above: Order Comment: Speci men Type: BLOOD SPECIMENOrdering Facility: [facility] Address: [address] [place] [address] Performed By: #### 2 4323-8 ####[facility] HOSPITALWNCLIA [id number] [place] [address] [place]#### 69182-5 ####[facility] LABORATORYCLIA [id number] [address]LIA [id number] [place] [address] [place] Sodium [Moles/Vol] 139 mmol/L Normal 136-144 [facility] Comment on above: Order Comment: Speci men Type: BLOOD SPECIMENOrdering Facility: [facility] Address: [address] [place] [address] Performed By: #### 2 4323-8 ####[facility] HOSPITALWNCLIA [id number] [place] [address] [place]#### 48710-5 ####[facility]ORATORYCLIA [id number] [address] STATES [facility] CEDRIC MILLTOWNCLIA [id number] [place] [address] [place] Urea nitrogen [Mass/Vol] 24 mg/dL High 7-21 [facility] Comment on above: Order Comment: Speci men Type: BLOOD SPECIMENOrdering Facility: [facility] Address: [address] [place] [address] Performed By: #### 2 4323-8 ####[facility] MILLTOWNCLIA [id number] [place] [address] [place]#### 75035-1 ####[facility]ORATORYCLIA [id number] [address]AL[address] [id number] [address] OF [place] Lipid 1996 panelon 5 Cholesterol [Mass/Vol] 199 mg/dL Normal <200 [facility] Comment on above: Order Comment: Speci men Type: BLOOD SPECIMENOrdering Facility: [facility] Address: [address] [place] [address] Result Comment: <200 mg/dL, Desirable 200-239 mg/dL, Borderline high>239 mg/dL, High Performed By: #### 2 4323-8 ####[facility] MILLTOWNCLIA [id number] [address] STATES OF [place]#### 07147-6 ####[facility] LABORATORYCLIA [id number] [address]CLIA [id number] [address] [place] Cholesterol in HDL [Mass/Vol] 63 mg/dL Normal >39 [facility] Comment on above: Order Comment: Speci men Type: BLOOD SPECIMENOrdering Facility: [facility] Address: [address] [place] [address] Result Comment: 40-5 9 mg/dL, Acceptable>59 mg/dL, High: Negative risk factor for coronary heart disease<40 mg/dL, Low: Positive risk factor for coronary heart disease Performed By: #### 2 4323-8 ####[facility] MILLTOWNCLIA [id number] [address] OF [place]#### 98994-4 ####[facility] LABORATORYCLIA [id number] [address] [id number] [address] [place] Cholesterol in LDL [Mass/Vol] 115 mg/dL High <100 [facility] Comment on above: Order Comment: Speci men Type: BLOOD SPECIMENOrdering Facility: [facility] Address: [address] [place] [address] Result Comment: <100 mg/dL, Optimal 100-129 mg/dL, Near optimal/above optimal 130-159 mg/dL, Borderline high 160-189 mg/dL, High>189 mg/dL, Very highSecondary prevention optimal LDL Cholesterol levels are recommended to be < 70 mg/dL Performed By: #### 2 4323-8 ####[facility] [id number] [address] OF [place]#### 69516-1 ####[facility] LABORATORYCLIA [id number] [address] [id number] [address] [place] Cholesterol in LDL/Cholesterol in HDL [Mass ratio] 1.83 {ratio} Normal <2.54 [facility] Comment on above: Order Comment: Speci men Type: BLOOD SPECIMENOrdering Facility: [facility] Address: [address] [place] [address] Result Comment: Chetan hyman:1. National Cholesterol Education Program ATP III Guideline At-A-Glance Quick Desk Reference: National Heart, Lung, and Blood [place]. National Institutes of Health. 2001: NIH Publication No. 01-3305.2. An International Atherosclerosis Society position paper: global recommendations for the management of dyslipidemia: executive summary, Atherosclerosis. 2014: 232(2):410-413. Performed By: #### 2 4323-8 ####[facility] MILLTOWNCLIA [id number] [place] [address] [place]#### 73843-1 ####[facility]ORATORYCLIA [id number] [address] CEDRIC MILLTOWNCLIA [id number] [place] [address] [place] Cholesterol in VLDL [Mass/Vol] 21 mg/dL Normal <30 [facility] Comment on above: Order Comment: Speci men Type: BLOOD SPECIMENOrdering Facility: [facility] Address: [address] [place] [address] Performed By: #### 2 4323-8 ####[facility] HOSPITALWNCLIA [id number] [address] [place]#### 91878-9 ####[facility]ORATORYCLIA [id number] [address] [id number] [place] [address] [place] Cholesterol non HDL [Mass/Vol] 136 mg/dL High <130 [facility] Comment on above: Order Comment: Speci men Type: BLOOD SPECIMENOrdering Facility: [facility] Address: [address] [place] [address] Result Comment: <130 mg/dL, Optimal 130-159 mg/dL, Near optimal/above optimal 160-189 mg/dL, Borderline high 190-219 mg/dL, High>219 mg/dL, Very highSecondary prevention optimal non HDL Cholesterol levels are recommended to be <100 mg/dL Performed By: #### 2 4323-8 ####[facility] MILLTOWNCLIA [id number] [address] STATES [place]#### 99125-4 ####[facility]ORATORYCLIA [id number] [id number] [address] [place] Cholesterol.total/Cholester ol in HDL [Mass ratio] 3.16 {ratio} Normal <5.10 [facility] Comment on above: Order Comment: Speci men Type: BLOOD SPECIMENOrdering Facility: [facility] Address: [address] [place] [address] Performed By: #### 2 4323-8 ####[facility] [id number] [address] [place]#### 25734-2 ####[facility] LABORATORYCLIA [id number] [address] [id number] [address] STATES OF [place] FASTING TIME 12 hrs Normal [facility] Comment on above: Order Comment: Speci men Type: BLOOD SPECIMENOrdering Facility: [facility] [facility] Address: [address] [place] [address] Performed By: #### 2 4323-8 ####[facility] [id number] [address] [place]#### [address]-0 ####[facility] LABORATORYCLIA [id number] [address] [id number] [place] [address] [place] Triglyceride [Mass/Vol] 104 mg/dL Normal <150 [facility] Comment on above: Order Comment: Speci men Type: BLOOD SPECIMENOrdering Facility: [facility] Address: [address] [place] [address] Result Comment: <150 mg/dL, Normal 150-199 mg/dL, Borderline high 200-499 mg/dL, High>499 mg/dL, Very high Performed By: #### 2 4323-8 ####[facility] [id number] [address]#### [address]-0 ####[facility] LABORATORYCLIA [id number] [address] [id number] [address] CALPROon 07-23-2024 Calprotectin Interp Normal Normal Normal [facility] Comment on above: Result Comment: Inte rpretation: <50.0 ug/g: Normal 50.0 ug/g - 120.0 ug/g: Borderline elevated. Re-evaluation in 4-6 weeks is recommended if clinically indicated. >120.0 ug/g: Elevated Performed By: [facility] [employer] [place] [address] Wardrobe Custodian: Diomedes Linder III, M.D. CLIA#: [id number] Performed By: #### C ALPRO #### [place] [address] Calprotectin, Fecal Quantitative 24.3 ug/g Normal <50 [facility] Comment on above: Result Comment: Perf ormed By: [facility] [employer] [place] [address] Wardrobe Custodian: Diomedes Linder III, M.D. CLIA#: [id number] Performed By: #### C ALPRO #### [place] [address] LABORATORYOrdered By: MINDY BILL CONTRIBUTOR_SYSTEM on 07-22-2024 Calprotectin Interp Normal Invalid Interpretation Code Normal [facility] Comment on above: Result Comment: Inte rpretation: <50.0 ug/g: Normal 50.0 ug/g - 120.0 ug/g: Borderline elevated. Re-evaluation in 4-6 weeks is recommended if clinically indicated. >120.0 ug/g: Elevated Performed By: [facility] [employer] [address] [place] [address] Wardrobe Custodian: Diomedes Linder III, M.D. CLIA#: [id number] Calprotectin, Fecal Quantitative 24.3 1 Invalid Interpretation Code <50 [facility] Comment on above: Result Comment: Perf ormed By: [facility] [employer] [address] [place] [address] Wardrobe Custodian: Diomedes Linder III, M.D. CLIA#: [id number] .GFRon 07-21-2024 Estimated Glomerular Filtration Rate 55 ml/min/1.73sqm Normal [facility] Comment on above: Result Comment: Stages [...] H GMP, GFR, ESR, CMP, CRP #### [place] [address] [place], [place] [address] CMPon 07-21-2024 Albumin Level 3.3 G/dL Low 3.4-4.8 [facility] Comment on above: Performed By: #### H GMP, GFR, ESR, CMP, CRP #### [facility] [address] [place], [place] [address] Albumin/Globulin [Mass ratio] 1.0 {ratio} Low 1.1-2.5 [facility] Comment on above: Performed By: #### H GMP, GFR, ESR, CMP, CRP #### [place] [address] [place], [place] [address] ALP [Catalytic activity/Vol] 92 U/L Normal 40-135 [facility] Comment on above: Performed By: #### H GMP, GFR, ESR, CMP, CRP #### [address] [address] ALT [Catalytic activity/Vol] 31 U/L Normal 14-59 [facility] Comment on above: Performed By: #### H GMP, GFR, ESR, CMP, CRP #### [address] [address] AST [Catalytic activity/Vol] 23 U/L Normal 10-40 [facility] Comment on above: Performed By: #### H GMP, GFR, ESR, CMP, CRP #### [address] [address] Bili Total 0.4 mg/dL Normal 0.2-1.0 [facility] Comment on above: Result Comment: Use of this assay is not recommended for patients undergoing treatment with eltrombopag due to the potential for falsely elevated results. Performed By: #### H GMP, GFR, ESR, CMP, CRP #### [address] [address] BUN/Creatinine Ratio 17 ratio Normal 7-27 [facility] Comment on above: Performed By: #### H GMP, GFR, ESR, CMP, CRP #### [address] [address] Calcium [Mass/Vol] 9.0 mg/dL Normal 8.4-10.2 [facility] Comment on above: Performed By: #### H GMP, GFR, ESR, CMP, CRP #### [address] [address] Chloride [Moles/Vol] 106 mmol/L Normal 98-107 [facility] Comment on above: Performed By: #### H GMP, GFR, ESR, CMP, CRP #### [address] [address] CO2 [Moles/Vol] 28 mmol/L Normal 23-31 [facility] Comment on above: Performed By: #### H GMP, GFR, ESR, CMP, CRP #### [address] [address] Creatinine [Mass/Vol] 1.06 mg/dL High 0.55-1.02 [facility] Comment on above: Result Comment: Test ing performed on Siemens Dimension EXL analyzer using a modified kinetic Sp technique. Performed By: #### H GMP, GFR, ESR, CMP, CRP #### [address] [address] Electrolyte Balance 8.0 mEq/L Normal 4.0-15.0 [facility] Comment on above: Performed By: #### H GMP, GFR, ESR, CMP, CRP #### [place] [address] Globulin 3.3 G/dL Normal 1.5-3.8 [facility] Comment on above: Performed By: #### H GMP, GFR, ESR, CMP, CRP #### [place] [address] Glucose [Mass/Vol] 106 mg/dL Normal 83-110 [facility] Comment on above: Performed By: #### H GMP, GFR, ESR, CMP, CRP #### [place] [id number] Potassium [Moles/Vol] 3.9 mmol/L Normal 3.5-5.1 [facility] Comment on above: Performed By: #### H GMP, GFR, ESR, CMP, CRP #### [place] [address] Sodium [Moles/Vol] 142 mmol/L Normal 136-145 [facility] Comment on above: Performed By: #### H GMP, GFR, ESR, CMP, CRP #### [place] [id number] Total Protein 6.6 G/dL Normal 6.4-8.2 [facility] Comment on above: Performed By: #### H GMP, GFR, ESR, CMP, CRP #### [place] [id number] Urea nitrogen [Mass/Vol] 18 mg/dL Normal 7-18 [facility] Comment on above: Performed By: #### H GMP, GFR, ESR, CMP, CRP #### [address] [address] CRPon 07-21-2024 C-Reactive Protein 0.8 mg/dL High 0.0-0.3 [facility] Comment on above: Performed By: #### H GMP, GFR, ESR, CMP, CRP #### [place] [address] ESRon 07-21-2024 Erythrocyte Sed Rate 14 mm/hr Normal 0-30 [facility] Comment on above: Performed By: #### H GMP, GFR, ESR, CMP, CRP #### [address] [address] HGMPon 07-21-2024 Erythrocyte distribution width (RBC) [Ratio] 15.1 % Normal 11.5-15.5 [facility] Comment on above: Performed By: #### H GMP, GFR, ESR, CMP, CRP #### [place] [address] Hematocrit (Bld) [Volume fraction] 38.4 % Normal 34.0-46.0 [facility] Comment on above: Performed By: #### H GMP, GFR, ESR, CMP, CRP #### [address] [address] Hgb 12.6 G/dL Normal 12.0-16.0 [facility] Comment on above: Performed By: #### H GMP, GFR, ESR, CMP, CRP #### [address] [address] MCH (RBC) [Entitic mass] 28.3 pg Normal 27.0-33.0 [facility] Comment on above: Performed By: #### H GMP, GFR, ESR, CMP, CRP #### [place] [address] MCHC 32.9 G/dL Normal 32.0-36.0 [facility] Comment on above: Performed By: #### H GMP, GFR, ESR, CMP, CRP #### [address] [address] MCV (RBC) [Entitic vol] 86.0 fL Normal 80.0-99.0 [facility] Comment on above: Performed By: #### H GMP, GFR, ESR, CMP, CRP #### [place] [id number] Platelet 238 10 3/mcL Normal 150-450 [facility] Comment on above: Performed By: #### H GMP, GFR, ESR, CMP, CRP #### [address] [address] Platelet mean volume (Bld) [Entitic vol] 8.3 fL Normal 6.6-10.5 [facility] Comment on above: Performed By: #### H GMP, GFR, ESR, CMP, CRP #### [address] [address] RBC 4.46 10 6/mcL Normal 4.10-5.30 [facility] Comment on above: Performed By: #### H GMP, GFR, ESR, CMP, CRP #### [address] [address] WBC 4.4 10 3/mcL Low 4.5-10.8 [facility] Comment on above: Performed By: #### H GMP, GFR, ESR, CMP, CRP #### [address] [address] LABORATORYOrdered By: SYSTEM SYSTEM on 07-21-2024 Albumin [...] Man Heme SS CNPTOUTREACHon 07-17-2024 CNPTOUTREACH Normal [facility] CNOVon 07-16-2024 CNOV Normal [facility] CNPNon 07-12-2024 CNPN Normal [facility] CNPNon 07-09-2024 CNPN Normal [facility] CBC W Auto Differential pane l (Bld)on 07-08-2024 Basophils (Bld) [#/Vol] 10*3/uL Normal <0.11 [facility] Comment on above: Order Comment: Speci men Type: BLOOD SPECIMENOrdering Facility: [facility] Address: [address] [place] [address] Performed By: #### 5 7021-8 ####[facility] LABCLIA [id number] [place] [address] [place] Basophils/100 WBC (Bld) 0.3 % Normal [facility] Comment on above: Order Comment: Speci men Type: BLOOD SPECIMENOrdering Facility: [facility] Address: [address] [place] [address] Performed By: #### 5 7021-8 ####[facility] LABCLIA [id number] [place] [address] [place] Differential cell count method Nom (Bld) Auto Normal [facility] Comment on above: Order Comment: Speci men Type: BLOOD SPECIMENOrdering Facility: [facility] Address: [address] [place] [address] Performed By: #### 5 7021-8 ####[facility] LABCLIA [id number] [place] [address] [place] Eosinophils (Bld) [#/Vol] 0.11 10*3/uL Normal <0.46 [facility] Comment on above: Order Comment: Speci men Type: BLOOD SPECIMENOrdering Facility: [facility] Address: [address] [place] [address] Performed By: #### 5 7021-8 ####[facility] LABCLIA [id number] [address] [place] Eosinophils/100 WBC (Bld) 1.7 % Normal [facility] Comment on above: Order Comment: Speci men Type: BLOOD SPECIMENOrdering Facility: [facility] Address: [address] [place] [address] Performed By: #### 5 7021-8 ####[facility] LABCLIA [id number] [place] [address] [place] Erythrocyte distribution width (RBC) [Ratio] 14.3 % Normal 11.5-15.0 [facility] Comment on above: Order Comment: Speci men Type: BLOOD SPECIMENOrdering Facility: [facility] Address: [address] [place] [address] Performed By: #### 5 7021-8 ####[facility] LABIA [id number] [place] [address] [place] Hematocrit (Bld) [Volume fraction] 39.9 % Normal 36.0-46.0 [facility] Comment on above: Order Comment: Speci men Type: BLOOD SPECIMENOrdering Facility: [facility] Address: [address] [place] [address] Performed By: #### 5 7021-8 ####[facility] LABIA [id number] [place] [address] [place] Hemoglobin (Bld) [Mass/Vol] 12.5 g/dL Normal 11.5-15. 5 [facility] Comment on above: Order Comment: Speci men Type: BLOOD SPECIMENOrdering Facility: [facility] Address: [address] [place] [address] Performed By: #### 5 7021-8 ####[facility] LABIA [id number] [place] [address] [place] Immature granulocytes (Bld) [#/Vol] 10*3/uL Normal <0.10 [facility] Comment on above: Order Comment: Speci men Type: BLOOD SPECIMENOrdering Facility: [facility] Address: [address] [place] [address] Performed By: #### 5 7021-8 ####[facility] LABCLIA [id number] [place] [address] [place] Immature granulocytes/100 WBC (Bld) 0.3 % Normal [facility] Comment on above: Order Comment: Speci men Type: BLOOD SPECIMENOrdering Facility: [facility] Address: [address] [place] [address] Performed By: #### 5 7021-8 ####[facility] LABCLIA [id number] [place] [address] [place] Lymphocytes (Bld) [#/Vol] 2.81 10*3/uL Normal 1.00-4.0 0 [facility] Comment on above: Order Comment: Speci men Type: BLOOD SPECIMENOrdering Facility: [facility] Address: [address] [place] [address] Performed By: #### 5 7021-8 ####[facility] LABCLIA [id number] [place] [address] [place] Lymphocytes/100 WBC (Bld) 42.9 % Normal [facility] Comment on above: Order Comment: Speci men Type: BLOOD SPECIMENOrdering Facility: [facility] Address: [address] [place] [address] Performed By: #### 5 7021-8 ####[facility] LABCLIA [id number] [place] [address] [place] MCH (RBC) [Entitic mass] 27.7 pg Normal 26.0-34.0 [facility] Comment on above: Order Comment: Speci men Type: BLOOD SPECIMENOrdering Facility: [facility] Address: [address] [place] [address] Performed By: #### 5 7021-8 ####[facility] LABCLIA [id number] [place] [address] [place] MCHC (RBC) [Mass/Vol] 31.3 g/dL Normal 30.5-36.0 [facility] Comment on above: Order Comment: Speci men Type: BLOOD SPECIMENOrdering Facility: [facility] Address: [address] [place] [address] Performed By: #### 5 7021-8 ####[facility] LABCLIA [id number] [place] [address] [place] MCV (RBC) [Entitic vol] 88.5 fL Normal 80.0-100.0 [facility] Comment on above: Order Comment: Speci men Type: BLOOD SPECIMENOrdering Facility: [facility] Address: [address] [place] [address] Performed By: #### 5 7021-8 ####[facility] LABCLIA [id number] [place] [address] [place] Monocytes (Bld) [#/Vol] 0.57 10*3/uL Normal <0.87 [facility] Comment on above: Order Comment: Speci men Type: BLOOD SPECIMENOrdering Facility: [facility] Address: [address] [place] [address] Performed By: #### 5 7021-8 ####[facility] LABCLIA [id number] [place] [address] [place] Monocytes/100 WBC (Bld) 8.7 % Normal [facility] Comment on above: Order Comment: Speci men Type: BLOOD SPECIMENOrdering Facility: [facility] Address: [address] [place] [address] Performed By: #### 5 7021-8 ####[facility] LABCLIA [id number] [place] [address] [place] Neutrophils (Bld) [#/Vol] 3.02 10*3/uL Normal 1.45-7.5 0 [facility] Comment on above: Order Comment: Speci men Type: BLOOD SPECIMENOrdering Facility: [facility] Address: [address] [place] [address] Performed By: #### 5 7021-8 ####[facility] LABCLIA [id number] [place] [address] [place] Neutrophils/100 WBC (Bld) 46.1 % Normal [facility] Comment on above: Order Comment: Speci men Type: BLOOD SPECIMENOrdering Facility: [facility] Address: [address] [place] [address] Performed By: #### 5 7021-8 ####[facility] LABIA [id number] [place] [address] [place] Nucleated RBC (Bld) [#/Vol] 10*3/uL Normal <0.01 [facility] Comment on above: Order Comment: Speci men Type: BLOOD SPECIMENOrdering Facility: [facility] Address: [address] [place] [address] Performed By: #### 5 7021-8 ####[facility] LABIA [id number] [place] [address] [place] Nucleated RBC/100 WBC (Bld) [Ratio] 0.0 /100 WBC Normal [facility] Comment on above: Order Comment: Speci men Type: BLOOD SPECIMENOrdering Facility: [facility] Address: [address] [place] [address] Performed By: #### 5 7021-8 ####[facility] LABIA [id number] [place] [address] [place] Platelet mean volume (Bld) [Entitic vol] 11.2 fL Normal 9.0-12.7 [facility] Comment on above: Order Comment: Speci men Type: BLOOD SPECIMENOrdering Facility: [facility] Address: [address] [place] [address] Performed By: #### 5 7021-8 ####[facility] LABIA [id number] [place] [address] [place] Platelets (Bld) [#/Vol] 166 10*3/uL Normal 150-400 [facility] Comment on above: Order Comment: Speci men Type: BLOOD SPECIMENOrdering Facility: [facility] Address: [address] [place] [address] Performed By: #### 5 7021-8 ####[facility] LABCLIA [id number] [address] [address] [place] RBC (Bld) [#/Vol] 4.51 10*6/uL Normal 3.90-5.20 [facility] Comment on above: Order Comment: Speci men Type: BLOOD SPECIMENOrdering Facility: [facility] Address: [address] [place] [address] Performed By: #### 5 7021-8 ####[facility] LABIA [id number] [place] [address] [place] WBC (Bld) [#/Vol] 6.55 10*3/uL Normal 3.70-11.00 [facility] Comment on above: Order Comment: Speci men Type: BLOOD SPECIMENOrdering Facility: [facility] Address: [address] [place] [address] Performed By: #### 5 7021-8 ####[facility] LABIA [id number] [place] [address] [place] Comprehensive metabolic 2000 panelon 07-08-2024 Albumin [Mass/Vol] 4.0 g/dL Normal 3.9-4.9 [facility] Comment on above: Order Comment: Speci men Type: BLOOD SPECIMENOrdering Facility: [facility] Address: [address] [place] [address] Performed By: #### 2 4323-8 ####[facility] LABIA [id number] [place] [address] [place] ALP [Catalytic activity/Vol] 86 U/L Normal 34-123 [facility] Comment on above: Order Comment: Speci men Type: BLOOD SPECIMENOrdering Facility: [facility] Address: [address] [place] [address] Performed By: #### 2 4323-8 ####[facility] LABIA [id number] [address] [address] [place] ALT [Catalytic activity/Vol] 20 U/L Normal 7-38 [facility] Comment on above: Order Comment: Speci men Type: BLOOD SPECIMENOrdering Facility: [facility] Address: [address] [place] [address] Performed By: #### 2 4323-8 ####[facility] LABCLIA [id number] [place] [address] [place] Anion gap [Moles/Vol] 11 mmol/L Normal 8-15 [facility] Comment on above: Order Comment: Speci men Type: BLOOD SPECIMENOrdering Facility: [facility] Address: [address] [place] [address] Performed By: #### 2 4323-8 ####[facility] LABCLIA [id number] [place] [address] [place] AST [Catalytic activity/Vol] 21 U/L Normal 13-35 [facility] Comment on above: Order Comment: Speci men Type: BLOOD SPECIMENOrdering Facility: [facility] Address: [address] [place] [address] Performed By: #### 2 4323-8 ####[facility] LABCLIA [id number] [place] [address] [place] Bilirubin [Mass/Vol] 0.3 mg/dL Normal 0.2-1.3 [facility] Comment on above: Order Comment: Speci men Type: BLOOD SPECIMENOrdering Facility: [facility] Address: [address] [place] [address] Performed By: #### 2 4323-8 ####[facility] LABCLIA [id number] [place] [address] [place] Calcium [Mass/Vol] 8.9 mg/dL Normal 8.5-10.2 [facility] Comment on above: Order Comment: Speci men Type: BLOOD SPECIMENOrdering Facility: [facility] Address: [address] [place] [address] Performed By: #### 2 4323-8 ####[facility] LABCLIA [id number] [place] [id number] [place] Chloride [Moles/Vol] 104 mmol/L Normal 98-107 [facility] Comment on above: Order Comment: Speci men Type: BLOOD SPECIMENOrdering Facility: [facility] Address: [address] [place] [address] Performed By: #### 2 4323-8 ####[facility] LABCLIA [id number] [place] [address] [place] CO2 [Moles/Vol] 26 mmol/L Normal 22-30 [facility] Comment on above: Order Comment: Speci men Type: BLOOD SPECIMENOrdering Facility: [facility] Address: [address] [place] [address] Performed By: #### 2 4323-8 ####[facility] LABCLIA [id number] [place] [address] [place] Creatinine [Mass/Vol] 0.88 mg/dL Normal 0.58-0.96 [facility] Comment on above: Order Comment: Speci men Type: BLOOD SPECIMENOrdering Facility: [facility] Address: [address] [place] [address] Performed By: #### 2 4323-8 ####[facility] LABIA [id number] [place] [address] [place] Creatinine and Glomerular filtration rate.predicted panel (S/P/Bld) 69 mL/min/1.73m??? Normal >=60 [facility] Comment on above: Order Comment: Speci men Type: BLOOD SPECIMENOrdering Facility: [facility] Address: [address] [place] [address] Result Comment: Koki mated Glomerular Filtration Rate [...] actual GFR. Performed By: #### 2 4323-8 ####[facility] LABCLIA [id number] [address] [address] [place] Glucose [Mass/Vol] 86 mg/dL Normal 74-99 [facility] Comment on above: Order Comment: Speci men Type: BLOOD SPECIMENOrdering Facility: [facility] Address: [address] [place] [address] Result Comment: The [place] [employer] (ADA) provides guidance for cutoff [...] Standards of Medical Care in Diabetes 2016, [place] [employer]. Diabetes Care. 2016.39(Suppl 1). Performed By: #### 2 4323-8 ####[facility] LABCLIA [id number] [place] [id number] [place] Potassium [Moles/Vol] 3.8 mmol/L Normal 3.7-5.1 [facility] Comment on above: Order Comment: Shalini pérez Type: BLOOD SPECIMENOrdering Facility: [facility] Address: [address] [place] [address] Performed By: #### 2 4323-8 ####[facility] LABCLIA [id number] [address] [address] [place] Protein [Mass/Vol] 6.7 g/dL Normal 6.3-8.0 [facility] Comment on above: Order Comment: Speci men Type: BLOOD SPECIMENOrdering Facility: [facility] Address: [address] [place] [address] Performed By: #### 2 4323-8 ####[facility] LABCLIA [id number] [place] [address] [place] Sodium [Moles/Vol] 141 mmol/L Normal 136-144 [facility] Comment on above: Order Comment: Speci men Type: BLOOD SPECIMENOrdering Facility: [facility] Address: [address] [place] [address] Performed By: #### 2 4323-8 ####[facility] LABCLIA [id number] [place] [address] [place] Urea nitrogen [Mass/Vol] 21 mg/dL Normal 7-21 [facility] Comment on above: Order Comment: Speci men Type: BLOOD SPECIMENOrdering Facility: [facility] Address: [address] [place] [address] Performed By: #### 2 4323-8 ####[facility] LABCLIA [id number] [place] [address] [place] HbA1c (Bld)on 07-08-2024 Average glucose Estimated from glycated hemoglobin (Bld) [Mass/Vol] 114 mg/dL Normal [facility] Comment on above: Order Comment: Speci men Type: BLOOD SPECIMENOrdering Facility: [facility] Address: [address] [place] [address] Result Comment: eAG: (Estimated average glucose) is a calculated value from HgbA1c and is arborist representative of the average blood glucose level in the last 2-3 month period. Performed By: #### 5 5454-3 ####[facility] LABCLIA [id number] [place] [address] [place] HbA1c (Bld) [Mass fraction] 5.6 % Normal 4.3-5.6 [facility] Comment on above: Order Comment: Speci men Type: BLOOD SPECIMENOrdering Facility: [facility] Address: [address] [facility] [place] [place] [address] Result Comment: [place] Diabetes Association guidelines indicate that patients with HgbA1c in the range 5.7-6.4% are at increased risk for development of diabetes, and intervention by lifestyle modification may be beneficial. HgbA1c greater or equal to 6.5% is considered diagnostic of diabetes. Performed By: #### 5 5454-3 ####[facility] LABCLIA [id number] [place] [address] [place] CNPNon 06-26-2024 CNPN Normal [facility] CNPNon 06-25-2024 CNPN Normal [facility] CNPNon 06-23-2024 CNPN Normal [facility] CNOVon 06-18-2024 CNOV Normal [facility] CNPNon 06-18-2024 CNPN Normal [facility] CNPTOUTREACHon 06-14-2024 CNPTOUTREACH Normal [facility] Basic Metabolic Profile (BMP )on 06-13-2024 BUN/CRE 17.6 RATIO Normal 10-20 [facility] Comment on above: Performed By: #### L 501.4020 #### [facility] [address] [facility] [place], [place], [id number] ([address] [place],Total 8.8 mg/dL Normal 8.5-10.1 [facility] Comment on above: Performed By: #### L 501.4020 #### [facility] [address] [facility] [place], [address] Chloride [Moles/Vol] 107 mmol/L Normal 98-107 [facility] Comment on above: Performed By: #### L 501.4020 #### [facility] [address] [facility] [place], [address] CO2 [Moles/Vol] 28.0 mmol/L Normal 21.0-32.0 [facility] Comment on above: Performed By: #### L 501.4020 #### [facility] [address] [place], [address] Creatinine [Mass/Vol] 0.97 mg/dL Normal 0.55-1.02 [facility] Comment on above: Result Comment: The validity of the calculated GFR GFRAA in patients over 70 years has not been determined. Clinical correlation is essential. Performed By: #### L 501.4020 #### [facility] [address] [place], [address] ECRCL 61.53 ml/min Normal [facility] Comment on above: Performed By: #### L 501.4020 #### [facility] [address] [place], [address] EST GFR - AA 73 mL/min Normal >60 [facility] Comment on above: Result Comment: Afri can Tajik GFR Calc Performed By: #### L 501.4020 #### [facility] [address] [place], [address] GAP 6 Normal 5-15 [facility] Comment on above: Performed By: #### L 501.4020 #### [facility] [address] [place], [address] GFR/1.73 sq M.predicted among non-blacks MDRD (S/P/Bld) [Vol rate/Area] 60 mL/min/{1.73_m2} Normal >60 [facility] Comment on above: Result Comment: Non- GFR Calc Performed By: #### L 501.4020 #### [facility] [address] [place], [address] Glucose [Mass/Vol] 110 mg/dL High 74-106 [facility] Comment on above: Result Comment: Fast ing Glucose result from 100 to 125 mg/dL suggests IMPAIRED HOMEOSTASIS per A.D.A. criteria. Performed By: #### L 501.4020 #### [facility] [address] [place], [address] Potassium [Moles/Vol] 3.6 mmol/L Normal 3.5-5.1 [facility] Comment on above: Performed By: #### L 501.4020 #### [facility] [address] [place], [address] Sodium [Moles/Vol] 141 mmol/L Normal 136-145 [facility] Comment on above: Performed By: #### L 501.4020 #### [facility] [address] [place], [address] Urea nitrogen [Mass/Vol] 17 mg/dL Normal 7-18 [facility] Comment on above: Performed By: #### L 501.4020 #### [facility] [address] [place], [place], [address] Discharge Instructionon 05-28 Discharge Instruction [facility] Medical Records Department [address] [place] [address] Instructions for Home/Discharge Instructions 06/13/24 0919 MR#: [id number] Acct: [id number] Name: NADJA CHAUDHARI Toney Rep #: [id number] : 1950 74 From: Louie Dias MD PCP: Dr. Gray Quintana, DO Status:ADM RICKEY Discharge Instructions DC O2, [...] Care Provider: Gray Quintana Consulting Providers: Rosita Alonzo Discharge Orders/Prescriptions Prescriptions: New carvedilol 6.25 mg [...] can be placed): Home, Self Care 06/13/24 0368 Louie Dias MD CC: Dr. Gray Quintana DO; Dr. Rosita Alonzo DO Signed Normal [facility] BNP,B-Type NATRIURETIC PEPTI Basia 06-12-2024 Natriuretic peptide B (Bld) [Mass/Vol] 12.6 pg/mL Normal 0-100 [facility] Comment on above: Performed By: #### L 503.6620 #### [facility] [address] [place], [address] CBC W/Diff, Automatedon 05-28 Absolute Lymph 2.86 X10 3/uL Normal 0.83-4.51 [facility] Comment on above: Performed By: #### L 500.4050, L501.2300, L500.4100, L100.0100, L501.5200 #### [facility] [address] [place], [address] Absolute Neut 3.6 X10 3/uL Normal 2.0-7.7 [facility] Comment on above: Performed By: #### L 500.4050, L501.2300, L500.4100, L100.0100, L501.5200 #### [facility] [address] [place], [address] Basophils/100 WBC (Bld) 0.4 % Normal 0-1 [facility] Comment on above: Performed By: #### L 500.4050, L501.2300, L500.4100, L100.0100, L501.5200 #### [facility] [address] [place], [address] Eosinophils/100 WBC (Bld) 2.6 % Normal 0-5 [facility] Comment on above: Performed By: #### L 500.4050, L501.2300, L500.4100, L100.0100, L501.5200 #### [facility] [address] [place], [address] Erythrocyte distribution width (RBC) [Ratio] 13.4 % Normal 11.6-14.6 [facility] Comment on above: Performed By: #### L 500.4050, L501.2300, L500.4100, L100.0100, L501.5200 #### [facility] [address] [place], [address] Hematocrit (Bld) [Volume fraction] 36.9 % Low 37-47 [facility] Comment on above: Performed By: #### L 500.4050, L501.2300, L500.4100, L100.0100, L501.5200 #### [facility] [address] [place], [address] Hemoglobin (Bld) [Mass/Vol] 11.9 g/dL Low 12.0-15. 0 [facility] Comment on above: Performed By: #### L 500.4050, L501.2300, L500.4100, L100.0100, L501.5200 #### [facility] [address] [place], [address] IG% 0.300 Normal 0.0-0.9 [facility] Comment on above: Result Comment: IG% - Immature Granulocytes (promyelocytes, myelocytes and metamyelocytes) > 1% indicates that a LEFT SHIFT is Present. Performed By: #### L 500.4050, L501.2300, L500.4100, L100.0100, L501.5200 #### [facility] [address] [place], [address] Lymphocytes/100 WBC (Bld) 39.1 % Normal 19-41 [facility] Comment on above: Performed By: #### L 500.4050, L501.2300, L500.4100, L100.0100, L501.5200 #### [facility] [address] [place], [address] MCH (RBC) [Entitic mass] 28.1 pg Normal 27.0-32.0 [facility] Comment on above: Performed By: #### L 500.4050, L501.2300, L500.4100, L100.0100, L501.5200 #### [facility] [address] [place], [address] MCHC (RBC) [Mass/Vol] 32.2 g/dL Normal 32-36 [facility] Comment on above: Performed By: #### L 500.4050, L501.2300, L500.4100, L100.0100, L501.5200 #### [facility] [address] [place], [address] MCV (RBC) [Entitic vol] 87.2 fL Normal 81-99 [facility] Comment on above: Performed By: #### L 500.4050, L501.2300, L500.4100, L100.0100, L501.5200 #### [facility] [address] [place], [address] Monocytes/100 WBC (Bld) 8.7 % Normal 0-10 [facility] Comment on above: Performed By: #### L 500.4050, L501.2300, L500.4100, L100.0100, L501.5200 #### [facility] [address] [place], [address] Neutrophils/100 WBC (Bld) 48.9 % Normal 47-70 [facility] Comment on above: Performed By: #### L 500.4050, L501.2300, L500.4100, L100.0100, L501.5200 #### [facility] [address] [place], [address] Nucleated RBC (Bld) [#/Vol] 0 10*3/uL Normal 0-5 [facility] Comment on above: Performed By: #### L 500.4050, L501.2300, L500.4100, L100.0100, L501.5200 #### [facility] [address] [place], [address] Platelet mean volume (Bld) [Entitic vol] 10.4 fL Normal 6.2-12.0 [facility] Comment on above: Performed By: #### L 500.4050, L501.2300, L500.4100, L100.0100, L501.5200 #### [facility] [address] [place], [address] Platelets (Bld) [#/Vol] 249 10*3/uL Normal 150-450 [facility] Comment on above: Performed By: #### L 500.4050, L501.2300, L500.4100, L100.0100, L501.5200 #### [facility] [address] [place], [address] RBC (Bld) [#/Vol] 4.23 10*6/uL Normal 4.2-5.4 [facility] Comment on above: Performed By: #### L 500.4050, L501.2300, L500.4100, L100.0100, L501.5200 #### [facility] [address] [place], [address] RDW SD 42.5 fl Normal 35.1-43.9 [facility] Comment on above: Performed By: #### L 500.4050, L501.2300, L500.4100, L100.0100, L501.5200 #### [facility] [address] [place], [address] WBC (Bld) [#/Vol] 7.3 10*3/uL Normal 4.4-11.0 [facility] Comment on above: Performed By: #### L 500.4050, L501.2300, L500.4100, L100.0100, L501.5200 #### [facility] [address] [place], [address] CTA Chest W/WO Contraston CTA Chest W/WO Contrast [facility] Imaging Services [address] [place] [address] CTA Chest W/WO Contrast MR#: [id number] Acct: [id number] Name: NADJA CHAUDHARI Rep #: [id number] : 1950 F 74 From: Joann Ziegler PCP: Dr. Gray Quintana DO Status: ADM RICKEY Study: CTA Chest W/WO Contrast Date of Exam: 06/12/24 Exam# [id number] Ordering Dr: Amador Earl DO [id number] STUDY: CTA CHEST REASON FOR EXAM: Female, [...] Signed: Joann Wise MD at 5:59 EST Reading Location ID and State: [facility] / [place] Tel , Service support , CC: Dr. Amador Earl, DO; Dr. Gray Quintana, DO Technical Systems Architect: Signed Normal [facility] Comprehensive Metabolic Prof ilon 06-12-2024 Albumin [Mass/Vol] 3.2 g/dL Normal 3.2-5.0 [facility] Comment on above: Performed By: #### L 500.4050, L501.2300, L500.4100, L100.0100, L501.5200 #### [facility] [address] [place], [address] Albumin/Globulin [Mass ratio] 1.0 {ratio} Normal 0.9-2.4 [facility] Comment on above: Performed By: #### L 500.4050, L501.2300, L500.4100, L100.0100, L501.5200 #### [facility] [address] [place], [address] ALK P 77 U/L Normal 45-117 [facility] Comment on above: Performed By: #### L 500.4050, L501.2300, L500.4100, L100.0100, L501.5200 #### [facility] [address] [place], [address] ALT [Catalytic activity/Vol] 22 U/L Normal 13-56 [facility] Comment on above: Performed By: #### L 500.4050, L501.2300, L500.4100, L100.0100, L501.5200 #### [facility] [address] [place], [address] AST [Catalytic activity/Vol] 14 U/L Low 15-37 [facility] Comment on above: Performed By: #### L 500.4050, L501.2300, L500.4100, L100.0100, L501.5200 #### [facility] [address] [place], [address] Bilirubin [Mass/Vol] 0.40 mg/dL Normal 0.20-1.00 [facility] Comment on above: Result Comment: For patients on eltrombopag therapy, use of Dimension [place] TBIL is not recommended. Performed By: #### L 500.4050, L501.2300, L500.4100, L100.0100, L501.5200 #### [facility] [address] [place], [address] BUN/CRE 17.5 RATIO Normal 10-20 [facility] Comment on above: Performed By: #### L 500.4050, L501.2300, L500.4100, L100.0100, L501.5200 #### [facility] [address] [place], [address] CA,Total 9.0 mg/dL Normal 8.5-10.1 [facility] Comment on above: Performed By: #### L 500.4050, L501.2300, L500.4100, L100.0100, L501.5200 #### [facility] [address] [place], [address] Chloride [Moles/Vol] 107 mmol/L Normal 98-107 [facility] Comment on above: Performed By: #### L 500.4050, L501.2300, L500.4100, L100.0100, L501.5200 #### [facility] [address] [place], [address] CO2 [Moles/Vol] 27.0 mmol/L Normal 21.0-32.0 [facility] Comment on above: Performed By: #### L 500.4050, L501.2300, L500.4100, L100.0100, L501.5200 #### [facility] [address] [place], [address] Creatinine [Mass/Vol] 0.97 mg/dL Normal 0.55-1.02 [facility] Comment on above: Result Comment: The validity of the calculated GFR GFRAA in patients over 70 years has not been determined. Clinical correlation is essential. Performed By: #### L 500.4050, L501.2300, L500.4100, L100.0100, L501.5200 #### [facility] [address] [place], [address] ECRCL 61.53 ml/min Normal [facility] Comment on above: Performed By: #### L 500.4050, L501.2300, L500.4100, L100.0100, L501.5200 #### [facility] [address] [place], [address] EST GFR - AA 72 mL/min Normal >60 [facility] Comment on above: Result Comment: Afri can [place] GFR Calc Performed By: #### L 500.4050, L501.2300, L500.4100, L100.0100, L501.5200 #### [facility] [address] [place], [address] GAP 5 Normal 5-15 [facility] Comment on above: Performed By: #### L 500.4050, L501.2300, L500.4100, L100.0100, L501.5200 #### [facility] [address] [place], [address] GFR/1.73 sq M.predicted among non-blacks MDRD (S/P/Bld) [Vol rate/Area] 60 mL/min/{1.73_m2} Normal >60 [facility] Comment on above: Result Comment: Non- GFR Calc Performed By: #### L 500.4050, L501.2300, L500.4100, L100.0100, L501.5200 #### [facility] [address] [place], [address] Globulin (S) [Mass/Vol] 3.3 g/dL Normal 2.2-4.2 [facility] Comment on above: Performed By: #### L 500.4050, L501.2300, L500.4100, L100.0100, L501.5200 #### [facility] [address] [place], [address] Glucose [Mass/Vol] 125 mg/dL High 74-106 [facility] Comment on above: Result Comment: Fast ing Glucose result from 100 to 125 mg/dL suggests IMPAIRED HOMEOSTASIS per A.D.A. criteria. Performed By: #### L 500.4050, L501.2300, L500.4100, L100.0100, L501.5200 #### [facility] [address] [place], [address] Potassium [Moles/Vol] 3.5 mmol/L Normal 3.5-5.1 [facility] Comment on above: Performed By: #### L 500.4050, L501.2300, L500.4100, L100.0100, L501.5200 #### [facility] [address] [place], [address] Sodium [Moles/Vol] 139 mmol/L Normal 136-145 [facility] Comment on above: Performed By: #### L 500.4050, L501.2300, L500.4100, L100.0100, L501.5200 #### [facility] [address] [place], [address] T PROT 6.5 g/dL Normal 6.4-8.2 [facility] Comment on above: Performed By: #### L 500.4050, L501.2300, L500.4100, L100.0100, L501.5200 #### [facility] [address] [place], [address] Urea nitrogen [Mass/Vol] 17 mg/dL Normal 7-18 [facility] Comment on above: Performed By: #### L 500.4050, L501.2300, L500.4100, L100.0100, L501.5200 #### [facility] [address] [place], [address] Lipid Profileon 06-12-2024 Cholesterol [Mass/Vol] 178 mg/dL Normal 200 [facility] Comment on above: Result Comment: <200 mg/dL Desirable 200-240 mg/dL Borderline >240 mg/dL High Risk Performed By: #### L 500.4050, L501.2300, L500.4100, L100.0100, L501.5200 #### [facility] [address] [place], [address] Cholesterol in HDL [Mass/Vol] 60 mg/dL Normal [facility] Comment on above: Result Comment: The drugs N-Acetylcysteine and Metamizole may falsely depress this assay. Reference Range HDL <40 mg/dL Low HDL Cholesterol HDL >or= 60 mg/dL High HDL Cholesterol Performed By: #### L 500.4050, L501.2300, L500.4100, L100.0100, L501.5200 #### [facility] [address] [place], [address] Cholesterol in LDL [Mass/Vol] 96 mg/dL Normal 0-130 [facility] Comment on above: Performed By: #### L 500.4050, L501.2300, L500.4100, L100.0100, L501.5200 #### [facility] [address] [place], [address] Cholesterol in VLDL [Mass/Vol] 22 mg/dL Normal 5-40 [facility] Comment on above: Performed By: #### L 500.4050, L501.2300, L500.4100, L100.0100, L501.5200 #### [facility] [address] [place], [address] Triglyceride [Mass/Vol] 111 mg/dL Normal [facility] Comment on above: Result Comment: The drugs N-Acetylcysteine and Metamizole may falsely depress this assay. Serum Triglycerides Reference Interval Normal <150 mg/dL Borderline high 150 - 199 mg/dL High 200 - 499 mg/dL Very High > or = 500 mg/dL Performed By: #### L 500.4050, L501.2300, L500.4100, L100.0100, L501.5200 #### [facility] [address] [place], [address] Magnesiumon 06-12-2024 Magnesium [Mass/Vol] 1.9 mg/dL Normal 1.6-2.6 [facility] Comment on above: Performed By: #### L 500.4050, L501.2300, L500.4100, L100.0100, L501.5200 #### [facility] [address] [place], [address] Phosphoruson 06-12-2024 Phosphate [Mass/Vol] 4.1 mg/dL Normal 2.5-4.9 [facility] Comment on above: Performed By: #### L 500.4050, L501.2300, L500.4100, L100.0100, L501.5200 #### [facility] [address] [place], [address] Stress Reporton 06-12-2024 Stress Report [facility] Cardi[facility] Services [address] [place] [address] MR#: [id number] Acct: [id number] Name: NADJA CHAUDHARI Rep #: [id number] : 1950 74 From: Guilherme Brumfield MD [...] of 77%. This note was generated with [employer] software. It may contain incorrect words, spelling, and punctuation that were not noted in checking the note before signing. 06/12/24 1246 Date Guilherme Brumfield MD CC: Dr. Gray Quintana DO; Dr. Rosita Alonzo DO; Dr. Louie Dias MD; Dr. Cam Mariscal MD Date Dictated: 06/12/241244 Date Transcribed: 06/12/241244 Technical Systems Architect: SYED Signed Normal [facility] Venous Duplex US - Trish Extre sun06-12-2024 Venous Duplex US - Trish Extrem [facility] Cardiovascular Services [address] [place] [address] Venous Duplex US - Trish Extrem 06/12/24 0836 MR#: [id number] Acct: [id number] Name: NADJA CHAUDHARI Rep #: [id number] : 1950 74 From: Jordin Infante MD Attending Dr: Dr. Louie Dias MD Status: ADM RICKEY Ordering Dr: Amador Earl DO Date: 06/12/24 Location: [facility] Sex: F C Admitted: 06/11/24 Reason For [...] preliminary report was called and/or faxed to [facility] buddhist monk. VL/Venous Duplex US - Trish Extrem Interpretation Summary Acute deep vein thrombosis is noted in the right gastrocnemius vein. Deep veins of the left lower extremity are patent and compressible segmentally. There is no evidence of left lower extremity deep vein thrombosis. The bilateral great saphenous veins appear patent and compressible segmentally. Ordering Physician: Amador Earl Performed By: Jurgen Rojas RVT 06/12/24 1334 Date Jordin Infante MD CC: Dr. Amador Earl DO; Dr. Gray Quintana DO; Dr. Louie Dias MD Date Dictated: 06/12/2436 Date Transcribed: 06/12/241333 Technical Systems Architect: Signed Normal [facility] Basic Metabolic Profile (BMP )on 06-11-2024 BUN/CRE 19.0 RATIO Normal 10-20 [facility] Comment on above: Order Comment: 'TROP ' Serial specimen #1, #2 or #3: 1 Performed By: #### L 501.4020 #### [facility] [address] [place], [address] CA,Total 9.2 mg/dL Normal 8.5-10.1 [facility] Comment on above: Order Comment: 'TROP ' Serial specimen #1, #2 or #3: 1 Performed By: #### L 501.4020 #### [facility] [address] [place], [address] Chloride [Moles/Vol] 106 mmol/L Normal 98-107 [facility] Comment on above: Order Comment: 'TROP ' Serial specimen #1, #2 or #3: 1 Performed By: #### L 501.4024 #### [facility] [address] [place], [address] CO2 [Moles/Vol] 29.0 mmol/L Normal 21.0-32.0 [facility] Comment on above: Order Comment: 'TROP ' Serial specimen #1, #2 or #3: 1 Performed By: #### L 501.4020 #### [facility] [address] [place], [address] Creatinine [Mass/Vol] 0.89 mg/dL Normal 0.55-1.02 [facility] Comment on above: Order Comment: 'TROP ' Serial specimen #1, #2 or #3: 1 Result Comment: The validity of the calculated GFR GFRAA in patients over 70 years has not been determined. Clinical correlation is essential. Performed By: #### L 501.4020 #### [facility] [address] [place], [address] ECRCL 67.81 ml/min Normal [facility] Comment on above: Order Comment: 'TROP ' Serial specimen #1, #2 or #3: 1 Performed By: #### L 501.4020 #### [facility] [address] [place], [address] EST GFR - AA 79 mL/min Normal >60 [facility] Comment on above: Order Comment: 'TROP ' Serial specimen #1, #2 or #3: 1 Result Comment: Afri can Tajik GFR Calc Performed By: #### L 501.4020 #### [facility] [address] [place], [address] GAP 4 Low 5-15 [facility] Comment on above: Order Comment: 'TROP ' Serial specimen #1, #2 or #3: 1 Performed By: #### L 501.4020 #### [facility] [address] [place], [address] GFR/1.73 sq M.predicted among non-blacks MDRD (S/P/Bld) [Vol rate/Area] 66 mL/min/{1.73_m2} Normal >60 [facility] Comment on above: Order Comment: 'TROP ' Serial specimen #1, #2 or #3: 1 Result Comment: Non- GFR Calc Performed By: #### L 501.4020 #### [facility] [address] [place], [address] Glucose [Mass/Vol] 101 mg/dL Normal 74-106 [facility] Comment on above: Order Comment: 'TROP ' Serial specimen #1, #2 or #3: 1 Result Comment: Fast ing Glucose result from 100 to 125 mg/dL suggests IMPAIRED HOMEOSTASIS per A.D.A. criteria. Performed By: #### L 501.4020 #### [facility] [address] [place], [address] Potassium [Moles/Vol] 3.4 mmol/L Low 3.5-5.1 [facility] Comment on above: Order Comment: 'TROP ' Serial specimen #1, #2 or #3: 1 Performed By: #### L 501.4020 #### [facility] [address] [place], [address] Sodium [Moles/Vol] 140 mmol/L Normal 136-145 [facility] Comment on above: Order Comment: 'TROP ' Serial specimen #1, #2 or #3: 1 Performed By: #### L 501.4020 #### [facility] [address] [place], [address] Urea nitrogen [Mass/Vol] 17 mg/dL Normal 7-18 [facility] Comment on above: Order Comment: 'TROP ' Serial specimen #1, #2 or #3: 1 Performed By: #### L 501.4020 #### [facility] [address] [place], [address] CBC W/Diff, Automatedon 05-28 Absolute Lymph 2.77 X10 3/uL Normal 0.83-4.51 [facility] Comment on above: Performed By: #### L 501.4020 #### [facility] [address] [place], [address] Absolute Neut 3.6 X10 3/uL Normal 2.0-7.7 [facility] Comment on above: Performed By: #### L 501.4020 #### [facility] [address] [place], [address] Basophils/100 WBC (Bld) 0.4 % Normal 0-1 [facility] [facility] Comment on above: Performed By: #### L 501.4020 #### [facility] [address] [place], [address] Eosinophils/100 WBC (Bld) 2.7 % Normal 0-5 [facility] Comment on above: Performed By: #### L 501.4020 #### [facility] [address] [place], [address] Erythrocyte distribution width (RBC) [Ratio] 13.4 % Normal 11.6-14.6 [facility] Comment on above: Performed By: #### L 501.4020 #### [facility] [address] [place], [address] Hematocrit (Bld) [Volume fraction] 37.2 % Normal 37-47 [facility] Comment on above: Performed By: #### L 501.4020 #### [facility] [address] [place], [address] Hemoglobin (Bld) [Mass/Vol] 12.0 g/dL Normal 12.0-15. 0 [facility] Comment on above: Performed By: #### L 501.4020 #### [facility] [address] [place], [address] IG% 0.300 Normal 0.0-0.9 [facility] Comment on above: Result Comment: IG% - Immature Granulocytes (promyelocytes, myelocytes and metamyelocytes) > 1% indicates that a LEFT SHIFT is Present. Performed By: #### L 501.4020 #### [facility] [address] [place], [address] Lymphocytes/100 WBC (Bld) 38.7 % Normal 19-41 [facility] Comment on above: Performed By: #### L 501.4020 #### [facility] [address] [place], [address] MCH (RBC) [Entitic mass] 28.5 pg Normal 27.0-32.0 [facility] Comment on above: Performed By: #### L 501.4020 #### [facility] [address] [place], [address] MCHC (RBC) [Mass/Vol] 32.3 g/dL Normal 32-36 [facility] Comment on above: Performed By: #### L 501.4020 #### [facility] [address] [place], [address] MCV (RBC) [Entitic vol] 88.4 fL Normal 81-99 [facility] [place] Comment on above: Performed By: #### L 501.4020 #### [facility] [address] [place], [address] Monocytes/100 WBC (Bld) 7.4 % Normal 0-10 [facility] [place] Comment on above: Performed By: #### L 501.4020 #### [facility] [address] [place], [address] Neutrophils/100 WBC (Bld) 50.5 % Normal 47-70 [facility] Comment on above: Performed By: #### L 501.4020 #### [facility] [address] [place], [address] Nucleated RBC (Bld) [#/Vol] 0 10*3/uL Normal 0-5 [facility] Comment on above: Performed By: #### L 501.4020 #### [facility] [address] [place], [address] Platelet mean volume (Bld) [Entitic vol] 10.3 fL Normal 6.2-12.0 [facility] Comment on above: Performed By: #### L 501.4020 #### [facility] [address] [place], [address] Platelets (Bld) [#/Vol] 256 10*3/uL Normal 150-450 [facility] Comment on above: Performed By: #### L 501.4020 #### [facility] [address] [place], [address] RBC (Bld) [#/Vol] 4.21 10*6/uL Normal 4.2-5.4 [facility] Comment on above: Performed By: #### L 501.4020 #### [facility] [address] [place], [address] RDW SD 43.8 fl Normal 35.1-43.9 [facility] Comment on above: Performed By: #### L 501.4020 #### [facility] [address] [place], [address] WBC (Bld) [#/Vol] 7.2 10*3/uL Normal 4.4-11.0 [facility] Comment on above: Performed By: #### L 501.4020 #### [facility] [address] [place], [address] CNOVon 06-11-2024 CNOV Normal [facility] CNPNon 06-11-2024 CNPN Normal [facility] Chest 1 View (Portable)on Chest 1 View (Portable) [facility] Imaging Services [address] [place] [address] Chest 1 View (Portable) MR#: [id number] Acct: [id number] Name: NADJA CHAUDHARI Rep #: [id number] : 1950 F 74 From: Muriel De Dios MD PCP: Dr. Gray Quintana DO Status: REG ER Study: Chest 1 View (Portable) Date of Exam: 06/11/24 Exam# [id number] Ordering Dr: Cam Mariscal [place] [id number] EXAM: XR CHEST, 1 VIEW CLINICAL INDICATION: [...] Muriel De Dios MD at 18:08 EST Reading Location ID and State: [facility] / [place] Tel , Service support , CC: Dr. Gray Quintana DO; Dr. Cam Mariscal MD Technical Systems Architect: Signed Normal [facility] D-Dimer Quantitative (DVT/PE )on 06-11-2024 D-DIMER QUANT 2.83 FEU/ug/m Invalid Interpretation Code 0.27-0.49 [facility] Comment on above: Result Comment: CRIT ICAL VALUE CALLED TO SANDRA BOLTON RN PCU 06/11/24 2239 Wali [place]. RESULTS READ BACK BY SAME . D-Dimer ELEVATED (>0.49): Additional studies and clinical assessments are indicated to conclude diagnosis of: Deep Vein Thrombosis (DVT) or Pulmonary Embolism (PE) Performed By: #### L 501.4020 #### [facility] [address] [place], [address] Echo Complete W/ Contraston 06-11-2024 Echo Complete W/ Contrast [facility] Cardiovascular Services [address] [place] [address] Echo Complete W/ Contrast 06/12/24 1040 MR#: [id number] Acct: [id number] Name: NADJA CHAUDHARI Rep #: [id number] : 1950 74 From: Guilherme Brumfield MD Attending Dr: Dr. Louie Dias MD Status: ADM RICKEY Ordering Dr: Rosita Alonzo DO Date: 06/11/24 Location: [facility] Sex: F C Admitted: 06/11/24 Reason For [...] Dictated: 06/12/24 1040 Date Transcribed: 06/12/24 1331 Technical Systems Architect: Signed Normal [facility] Emergency Department Summary on 06-11-2024 Emergency Department Summary [facility] Medical Records Department [address] [place] [address] Emergency Department Summary 06/11/24 MR#: [id number] Acct: [id number] Name: NADJA CHAUDHARI Rep #: [id number] : 1950 74 From: Cam Mariscal MD PCP: Dr. Gray Quintana, DO Status:REG ER Location: ED HPI History [...] Negative for Marfan's Syndrome or Family History PFSH [facility] Medical History (Updated 06/11/24 @ 19:17 by [...] 121 108 (more content not included)... Normal [facility] H AND P Exam - Hospitaliston 06-11-2024 H&P Exam - Hospitalist [facility] Medical Records Department [address] [place] [place] [address] H P Exam - Hospitalist 06/11/24 1846 MR#: [id number] Acct: [id number] Name: NADJA CHAUDHARI Rep #: [id number] : 1950 74 From: Rosita Alonzo DO PCP: Dr. Gray Quintana, DO Status:ADM RICKEY Location: [place] [address] HPI - General General Date of Admission: [...] very well. She has follow-up with her administration physician to discuss this further. Vital signs on [...] Chest x-ray is unremarkable. D-dimer is pending. [facility] Medical History Anxiety Depression Osteoporosis Kidney disease [...] seizures, syncop (more content not included)... Normal [facility] L501.4020on 06-11-2024 TROPONIN-I HS 98 pg/mL High 3.0-54.0 [facility] Comment on above: Order Comment: 'TROP ' Serial specimen #1, #2 or #3: 1 Result Comment: Plea se Note: New Test Units and Gender Specific Reference Ranges. For more information see Policy Stat Procedure [place] High Sensitivity Troponin (TNIH) and attachments. Performed By: #### L 501.4020 #### [facility] [address] [place], [place], [address] TROPONIN-I HS 95 pg/mL High 3.0-54.0 [facility] Comment on above: Order Comment: 'TROP ' Serial specimen #1, #2 or #3: 2 Result Comment: Plea se Note: New Test Units and Gender Specific Reference Ranges. For more information see Policy Stat Procedure [place] High Sensitivity Troponin (TNIH) and attachments. Performed By: #### L 100.0100 #### [facility] [address] [place], [address] TROPONIN-I HS 104 pg/mL High 3.0-54.0 [facility] Comment on above: Order Comment: 'TROP ' Serial specimen #1, #2 or #3: 1 Result Comment: Plea se Note: New Test Units and Gender Specific Reference Ranges. For more information see Policy Stat Procedure [place] High Sensitivity Troponin (TNIH) and attachments. Performed By: #### L 501.4020 #### [facility] [address] [place], [address] CNOVon 05-26-2024 CNOV Normal [facility] CNPNon 05-16-2024 CNPN Normal [facility] CNOVon 04-30-2024 CNOV Normal [facility] CNPNon 04-28-2024 CNPN Normal [facility] CNOVon 04-26-2024 CNOV Normal [facility] CNPNon 04-04-2024 CNPN Normal [facility] CNPNon 03-21-2024 CNPN Normal [facility] CNPNon 03-19-2024 CNPN Normal [facility] CNPNon 03-14-2024 CNPN Normal [facility] CNPNon 03-13-2024 CNPN Normal [facility] CNPNon 03-11-2024 CNPN Normal [facility] BD DXA - AXIAL SKELETONon BD DXA - AXIAL SKELETON Normal C [facility] EMMANUELLE SCREENINGon 03-07-2024 EMMANUELLE SCREENING Normal [facility] CNOVon 02-25-2024 CNOV Normal [facility] QUANTTBon 02-07-2024 QFT Criteria Comment Normal [facility] Comment on above: Result Comment: QuantiFERON-TB [...] Performed By: #### H BSAB, HBSAG #### [place] [address] QFT Mitogen Value >10.00 [facility] Comment on above: Performed By: #### H BSAB, HBSAG #### [place] [address] QFT Nil Value 0.00 IU/mL Normal [facility] Comment on above: Performed By: #### H BSAB, HBSAG #### [place] [address] QFT TB1 Ag Value 0.01 IU/mL Normal [facility] Comment on above: Performed By: #### H BSAB, HBSAG #### [place] [address] QFT TB2 Ag Value 0.01 IU/mL Normal [facility] Comment on above: Performed By: #### H BSAB, HBSAG #### [place] [address] QFT-TB Gold Plus Clt Inc Negative Normal Negative [facility] Comment on above: Result Comment: No [...] interferon gamma. Chemiluminescence immunoassay methodology Performed At: [address] [id number] Vicenta Lezama PhD Ph:[phone] Performed By: #### H BSAB, HBSAG #### [place] [address] AHAVGon 02-06-2024 Hepatitis A Antibody IgG Positive Normal [facility] Comment on above: Result Comment: Cons istent with serological evidence of immunity to Hepatitis A Virus. Performed By: [facility] [address] [place] [address] Wardrobe Custodian: Diomedes Linder III, M.D. CLIA#: [id number] Performed By: #### H BSAB, HBSAG #### [place] [address] HBCABon 09-11-2024 Hep B Core Total Ab Negative Normal Negative [facility] Comment on above: Result Comment: Perf ormed At: [place] [id number] [place], [place] [id number] Vicenta Lezama PhD Ph:[phone] Performed By: #### H BSAB, HBSAG #### [place] [address] HBEAGon 02-06-2024 Hep Be Ag Negative Normal Negative [facility] Comment on above: Result Comment: [facility]f [facility]med At: [facility] [address] [place], [place] [id number] Vicenta Lezama PhD Ph:[phone] Performed By: #### H BSAB, HBSAG #### [place] [address] HBSABon 02-06-2024 Hep B Surf Ab <3.1 Low >=10.0 [facility] Comment on above: Result Comment: 0 [...] Performed By: #### H BSAB, HBSAG #### [place] [address] HBSAGon 02-06-2024 Hep B Surf Ag Non-Reactive Normal Non-Reacti ve [facility] Comment on above: Performed By: #### H BSAB, HBSAG #### [place] [address] HAVMon 02-05-2024 Hep A IgM Ab Non-Reactive Normal Non-Reacti [facility] Comment on above: Performed By: #### 1 HAVM, HCV1 #### [place] [address] #### AHAVG, 676693, 743815, 377081 #### [place] [id number] Hep A IgM Ab Int Normal [facility] Comment on above: Result Comment: No s erological evidence of a current Hepatitis A infection. See Interp Performed By: #### 1 HAVM, HCV1 #### [place] [address] #### AHAVG, 342002, 619043, 092695 #### [place] [address] HCVon 02-05-2024 Hep C Ab Non-Reactive Normal Non-Reacti ve [facility] Comment on above: Performed By: #### 1 HAVM, HCV1 #### [place] [address] #### AHAVG, 755176, 873869, 327070 #### [place] [address] Hep C Ab Int [facility] Comment on above: Result Comment: Nonr eactive: Samples with a value < 0.80 are considered nonreactive (negative) for antibodies to HCV. A negative test result does not exclude the possibility of exposure to or infection with HCV. HCV antibodies may be undetectable in some stages of the infection and in some clinical conditions. See Interp Performed By: #### 1 HAVM, HCV1 #### [place] [address] #### AHAVG, 792469, 856101, 260638 #### [place] [address] LABORATORYOrdered By: Tracy Moses on 02-05-2024 HAV IgM IA Ql Non-Reactive (02/05/24 2:01 PM) Normal Non-Reacti ve AH ADM SS HAV IgM IA Ql No serological evidence of a current Hepatitis A infection. Invalid Interpretation Code AH Chemistry S HCV Ab IA Ql Non-Reactive [...] clinical conditions. Invalid Interpretation Code Chemistry S CALPROon 01-02-2024 Calprotectin Interp Elevated Abnormal Normal [facility] ([place]) Comment on above: Result Comment: Inte rpretation: <50.0 ug/g: Normal 50.0 ug/g - 120.0 ug/g: Borderline elevated. Re-evaluation in 4-6 weeks is recommended if clinically indicated. >120.0 ug/g: Elevated Performed By: [facility] Messenger [place] [id number] Wardrobe Custodian: Diomedes Linder III, M.D. CLIA#: [id number] Performed By: #### C RP, CBC, GFR, ADIFF, CMP, ANEU #### [place] [id number] Calprotectin, Fecal Quantitative 1880 ug/g High <50 [facility] ([place]) Comment on above: Result Comment: Perf ormed By: [facility] [employer] [place] [id number] Wardrobe Custodian: Diomedes Linder III, M.D. CLIA#: [id number] Performed By: #### C RP, CBC, GFR, ADIFF, CMP, ANEU #### [place] [id number] LABORATORYOrdered By: MINDY BILL CONTRIBUTOR_SYSTEM on 01-01-2024 Calprotectin Interp Elevated Invalid Interpretation Code Normal AO [facility] Comment on above: Result Comment: Inte rpretation: <50.0 ug/g: Normal 50.0 ug/g - 120.0 ug/g: Borderline elevated. Re-evaluation in 4-6 weeks is recommended if clinically indicated. >120.0 ug/g: Elevated Performed By: [place] [address] Wardrobe Custodian: Diomedes Linder III, M.D. CLIA#: [id number] Calprotectin, Fecal Quantitative 1880 1 High <50 AO [facility] Comment on above: Result Comment: Perf ormed By: [place] [id number] Wardrobe Custodian: Bret Mancini III#: [id number] .GFRon 12-31-2023 GFR 58 ml/min/1.73sqm Normal [facility] ([place]) Comment on above: Result Comment: GFR Population [...] RP, CBC, GFR, ADIFF, CMP, ANEU #### [address] [address] GFR Non- 48 ml/min/1.73sqm Normal [facility] ([place]) Comment on above: Result Comment: GFR Population [...] RP, CBC, GFR, ADIFF, CMP, ANEU #### [address] [address] CMPon 12-31-2023 Albumin Level 3.3 G/dL Low 3.4-4.8 [facility] ([place]) Comment on above: Performed By: #### C RP, CBC, GFR, ADIFF, CMP, ANEU #### [address] [address] Albumin/Globulin [Mass ratio] 0.9 {ratio} Low 1.1-2.5 [facility] ([place]) Comment on above: Performed By: #### C RP, CBC, GFR, ADIFF, CMP, ANEU #### [address] [address] ALP [Catalytic activity/Vol] 69 U/L Normal 40-135 [facility] ([place]) Comment on above: Performed By: #### C RP, CBC, GFR, ADIFF, CMP, ANEU #### [address] [address] ALT [Catalytic activity/Vol] 24 U/L Normal 14-59 [facility] ([place]) Comment on above: Performed By: #### C RP, CBC, GFR, ADIFF, CMP, ANEU #### [address] [address] AST [Catalytic activity/Vol] 12 U/L Normal 10-40 [facility] ([place]) Comment on above: Performed By: #### C RP, CBC, GFR, ADIFF, CMP, ANEU #### [address] [address] Bili Total 0.2 mg/dL Normal 0.2-1.0 [facility] ([place]) Comment on above: Result Comment: Use of this assay is not recommended for patients undergoing treatment with eltrombopag due to the potential for falsely elevated results. Performed By: #### C RP, CBC, GFR, ADIFF, CMP, ANEU #### [address] [address] BUN/Creatinine Ratio 21 ratio Normal 7-27 [facility] ([place]) Comment on above: Performed By: #### C RP, CBC, GFR, ADIFF, CMP, ANEU #### [address] [address] Calcium [Mass/Vol] 8.9 mg/dL Normal 8.4-10.2 [facility] ([place]) Comment on above: Performed By: #### C RP, CBC, GFR, ADIFF, CMP, ANEU #### [address] [address] Chloride [Moles/Vol] 107 mmol/L Normal 98-107 [facility] ([place]) Comment on above: Performed By: #### C RP, CBC, GFR, ADIFF, CMP, ANEU #### [address] [address] CO2 [Moles/Vol] 24 mmol/L Normal 23-31 [facility] ([place]) Comment on above: Performed By: #### C RP, CBC, GFR, ADIFF, CMP, ANEU #### [address] [address] Creatinine [Mass/Vol] 1.12 mg/dL High 0.55-1.02 [facility] ([place]) Comment on above: Performed By: #### C RP, CBC, GFR, ADIFF, CMP, ANEU #### [address] [address] Electrolyte Balance 10.0 mEq/L Normal 4.0-15.0 [facility] ([place]) Comment on above: Performed By: #### C RP, CBC, GFR, ADIFF, CMP, ANEU #### [address] [address] Globulin 3.5 G/dL Normal [facility] ([place]) Comment on above: Performed By: #### C RP, CBC, GFR, ADIFF, CMP, ANEU #### [address] [address] Glucose [Mass/Vol] 141 mg/dL High 83-110 [facility] ([place]) Comment on above: Performed By: #### C RP, CBC, GFR, ADIFF, CMP, ANEU #### [address] [address] Potassium [Moles/Vol] 4.8 mmol/L Normal 3.5-5.1 [facility] ([place]) Comment on above: Performed By: #### C RP, CBC, GFR, ADIFF, CMP, ANEU #### [address] [address] Sodium [Moles/Vol] 141 mmol/L Normal 136-145 [facility] ([place]) Comment on above: Performed By: #### C RP, CBC, GFR, ADIFF, CMP, ANEU #### [address] [address] Total Protein 6.8 G/dL Normal 6.4-8.2 [facility] ([place]) Comment on above: Performed By: #### C RP, CBC, GFR, ADIFF, CMP, ANEU #### [address] [address] Urea nitrogen [Mass/Vol] 23 mg/dL High 7-18 [facility] ([place]) Comment on above: Performed By: #### C RP, CBC, GFR, ADIFF, CMP, ANEU #### [address] [address] CRPon 12-31-2023 C-Reactive Protein 2.0 mg/dL High 0.0-0.3 [facility] ([place]) Comment on above: Performed By: #### H GMP, CRP, ESR, GFR, CMP #### [address] [address] ESRon 12-31-2023 Erythrocyte Sed Rate 29 mm/hr Normal 0-30 [facility] ([place]) Comment on above: Performed By: #### H GMP, CRP, ESR, GFR, CMP #### [address] [address] HGMPon 12-31-2023 Erythrocyte distribution width (RBC) [Ratio] 13.9 % Normal 11.5-14.5 [facility]) Comment on above: Performed By: #### H GMP, CRP, ESR, GFR, CMP #### [address] [address] Hematocrit (Bld) [Volume fraction] 37.3 % Normal 37.0-47.0 [facility] ([place]) Comment on above: Performed By: #### H GMP, CRP, ESR, GFR, CMP #### [address] [address] Hgb 12.2 G/dL Normal 12.0-16.0 [facility] ([place]) Comment on above: Performed By: #### H GMP, CRP, ESR, GFR, CMP #### [address] [address] MCH (RBC) [Entitic mass] 29.5 pg Normal 27.0-31.2 [facility] ([place]) Comment on above: Performed By: #### H GMP, CRP, ESR, GFR, CMP #### [address] [address] MCHC 32.7 G/dL Low 33.0-37.0 [facility] ([place]) Comment on above: Performed By: #### H GMP, CRP, ESR, GFR, CMP #### [address] [address] MCV (RBC) [Entitic vol] 90.2 fL Normal 80.0-94.0 A [facility] ([place]) Comment on above: Performed By: #### H GMP, CRP, ESR, GFR, CMP #### [address] [address] Platelet 355 10 3/mcL Normal 130-400 [facility] ([place]) Comment on above: Performed By: #### H GMP, CRP, ESR, GFR, CMP #### [address] [address] Platelet mean volume (Bld) [Entitic vol] 7.6 fL Normal 7.4-10.4 [facility] ([place]) Comment on above: Performed By: #### H GMP, CRP, ESR, GFR, CMP #### [address] [address] RBC 4.13 10 6/mcL Low 4.20-5.40 [facility] ([place]) Comment on above: Performed By: #### H GMP, CRP, ESR, GFR, CMP #### [place] [address] [place], [place] [address] WBC 6.0 10 3/mcL Normal 4.6-10.8 [facility] ([place]) Comment on above: Performed By: #### H GMP, CRP, ESR, GFR, CMP #### [place] [address] [place], [place] [address] LABORATORYOrdered By: SYSTEM SYSTEM on 12-31-2023 Albumin [...] 1. Mild osteoarthrosis of the right shoulder Technical Systems Architect: RUTH Transcribe Date/Time: Dec 05 2023 5:29P Dictated by : PADMA BRIONES MD This examination was interpreted and the report reviewed and electronically signed by: PADMA BRIONES MD on Dec 05 2023 5:29PM [facility] DIVISION OF RADIOLOGY * * *Final Report* [...] pain x 3-4 days after using a cow trimmer. TECHNIQUE: XR SHLDR >/=3V AP/LALITO AP/OTHR RT COMPARISON: None available RESULT: Right shoulder: The glenohumeral joint demonstrates mild arthrosis with small marginal osteophytes. Proximal migration of the humeral head characteristic for rotator cuff arthropathy. The acromioclavicular joint demonstrates mild hypertrophic osteoarthrosis. Soft tissues appear within normal limits. DIVISION OF RADIOLOGY Provider, Benoit Naqvi [facility] - 12/05/2023 * * *Final Report* [...] pain x 3-4 days after using a cow trimmer. TECHNIQUE: XR SHLDR >/=3V AP/LALITO AP/OTHR RT COMPARISON: None available RESULT: Right shoulder: The glenohumeral joint demonstrates mild arthrosis with small marginal osteophytes. Proximal migration of the humeral head characteristic for rotator cuff arthropathy. The acromioclavicular joint demonstrates mild hypertrophic osteoarthrosis. Soft tissues appear within normal limits. IMPRESSION IMPRESSION: 1. Mild osteoarthrosis of the right shoulder Technical Systems Architect: RUTH Transcribe Date/Time: Dec 05 2023 5:29P Dictated by : PADMA BRIONES MD This examination was interpreted and the report reviewed and electronically signed by: PADMA BRIONES MD on Dec 05 2023 5:29PM EST [facility] XR Shoulder - right 3 ViewsO rdered By: Ccf Provider on 12-05-2023 [facility] D-DIMERon 12-04-2023 Fibrin D-dimer FEU (PPP) [Mass/Vol] 1330 High NINF [facility] Fibrin D-dimer FEU (PPP) [Ma ss/Vol]on 12-04-2023 D Dimer Age-related Cutoff 730 ng/mL FEU [facility] Interpretation and review of laboratory results Abnormal [facility] 500 ng/mL FEU is the D Dimer [...] et al. KOJO 2014 311:1117 and Jose Powell et al. Kenisha Int Med 2016 165:253. [facility] XR Shoulder - right 3 Viewso n 12-03-2023 Radiology Study observation (narrative) [facility] CALPROon 11-28-2023 Calprotectin Interp Elevated Abnormal Normal [facility] ([place]) Comment on above: Result Comment: On 2022, [facility] implemented a new fecal calprotectin method, the [employer] Liaison Calprotectin assay. For assistance with interpretation of results in patients undergoing serial monitoring, contact Client Services at [phone] or [phone] to discuss options, preferably within 7 days of issuing this report. Interpretation: <50.0 ug/g: Normal 50.0 ug/g - 120.0 ug/g: Borderline elevated. Re-evaluation in 4-6 weeks is recommended if clinically indicated. >120.0 ug/g: Elevated Performed By: [facility] [address] [place] [address] Wardrobe Custodian: Bret Mancini III#: [id number] Performed By: #### C JAYLENE #### [place] [address] [place], [place] [address] Calprotectin, Fecal Quantitative 933 ug/g High <50 [facility] ([place]) Comment on above: Result Comment: Perf ormed By: [facility] [address] [place] [id number] Wardrobe Custodian: Diomedes Linder III, M.D. CLIA#: [id number] Performed By: #### C JAYLENE #### [place] [address] [address] LABORATORYOrdered By: MINDY BILL CONTRIBUTOR_SYSTEM on 11-24-2023 Calprotectin Interp Elevated Invalid Interpretation Code Normal AO [facility] SS Comment on above: Result Comment: On 2022, [facility] [facility] implemented a new fecal calprotectin method, the [employer] Liaison Calprotectin assay. For assistance with interpretation of results in patients undergoing serial monitoring, contact Client Services at [phone] or [phone] to discuss options, preferably within 7 days of issuing this report. Interpretation: <50.0 ug/g: Normal 50.0 ug/g - 120.0 ug/g: Borderline elevated. Re-evaluation in 4-6 weeks is recommended if clinically indicated. >120.0 ug/g: Elevated Performed By: [facility] [address] [place] [address] Wardrobe Custodian: Diomedes Linder III, M.D. CLIA#: [id number] Calprotectin, Fecal Quantitative 933 1 High <50 AO Sendouts SS Comment on above: Result Comment: Perf ormed By: [facility] [address] [place] [address] Wardrobe Custodian: Diomedes Linder III, M.D. CLIA#: [id number] .Auto Diffon 11-23-2023 Basophil, Absolute 0.0 10 3/mcL Normal 0.0-0.2 [facility] ([place]) Comment on above: Performed By: #### C RP, CBC, GFR, ADIFF, CMP, ANEU #### [place] [place] [id number] [place], [place] [address] Basophils/100 WBC (Bld) 0.3 % Normal 0.0-2.5 A [facility] ([place]) Comment on above: Performed By: #### C RP, CBC, GFR, ADIFF, CMP, ANEU #### [address] [address] Eosinophil, Absolute 0.2 10 3/mcL Normal 0.0-0.4 [facility] ([place]) Comment on above: Performed By: #### C RP, CBC, GFR, ADIFF, CMP, ANEU #### [address] [address] Eosinophils/100 WBC (Bld) 3.2 % Normal 0.0-7.0 [facility] ([place]) Comment on above: Performed By: #### C RP, CBC, GFR, ADIFF, CMP, ANEU #### [address] [address] Lymphocyte, Absolute 1.6 10 3/mcL Normal 0.8-3.9 [facility] ([place]) Comment on above: Performed By: #### C RP, CBC, GFR, ADIFF, CMP, ANEU #### [address] [address] Lymphocytes/100 WBC (Bld) 33.9 % Normal 10.0-50.0 [facility] ([place]) Comment on above: Performed By: #### C RP, CBC, GFR, ADIFF, CMP, ANEU #### [address] [address] Monocyte, Absolute 0.5 10 3/mcL Normal 0.2-1.0 [facility] ([place]) Comment on above: Performed By: #### C RP, CBC, GFR, ADIFF, CMP, ANEU #### [address] [address] Monocytes/100 WBC (Bld) 10.0 % Normal 1.7-13.0 [facility] ([place]) Comment on above: Performed By: #### C RP, CBC, GFR, ADIFF, CMP, ANEU #### [address] [address] Neutrophils/100 WBC (Bld) 52.6 % Normal 37.0-80.0 [facility] ([place]) Comment on above: Performed By: #### C RP, CBC, GFR, ADIFF, CMP, ANEU #### [address] [address] .GFRon 11-23-2023 GFR 61 ml/min/1.73sqm Normal [facility] ([place]) Comment on above: Result Comment: GFR Population [...] RP, CBC, GFR, ADIFF, CMP, ANEU #### [address] [address] GFR Non- 50 ml/min/1.73sqm Normal [facility] ([place]) Comment on above: Result Comment: GFR Population [...] RP, CBC, GFR, ADIFF, CMP, ANEU #### [address] [address] .NEUABSon 11-23-2023 Neutrophil, Absolute 2.5 10 3/mcL Low 2.9-6.2 [facility] ([place]) Comment on above: Performed By: #### C RP, CBC, GFR, ADIFF, CMP, ANEU #### [address] [address] CBCon 11-23-2023 Erythrocyte distribution width (RBC) [Ratio] 15.5 % High 11.5-14.5 [facility] ([place]) Comment on above: Performed By: #### C RP, CBC, GFR, ADIFF, CMP, ANEU #### [address] [address] Hematocrit (Bld) [Volume fraction] 39.0 % Normal 37.0-47.0 [facility] ([place]) Comment on above: Performed By: #### C RP, CBC, GFR, ADIFF, CMP, ANEU #### [address] [address] Hgb 13.0 G/dL Normal 12.0-16.0 [facility] ([place]) Comment on above: Performed By: #### C RP, CBC, GFR, ADIFF, CMP, ANEU #### [address] [address] MCH (RBC) [Entitic mass] 29.6 pg Normal 27.0-31.2 [facility] ([place]) Comment on above: Performed By: #### C RP, CBC, GFR, ADIFF, CMP, ANEU #### [address] [address] MCHC 33.3 G/dL Normal 33.0-37.0 [facility] ([place]) Comment on above: Performed By: #### C RP, CBC, GFR, ADIFF, CMP, ANEU #### [address] [address] MCV (RBC) [Entitic vol] 88.9 fL Normal 80.0-94.0 A [facility] ([place]) Comment on above: Performed By: #### C RP, CBC, GFR, ADIFF, CMP, ANEU #### [address] [address] Platelet 208 10 3/mcL Normal 130-400 [facility] ([place]) Comment on above: Performed By: #### C RP, CBC, GFR, ADIFF, CMP, ANEU #### [address] [address] Platelet mean volume (Bld) [Entitic vol] 8.1 fL Normal 7.4-10.4 [facility] ([place]) Comment on above: Performed By: #### C RP, CBC, GFR, ADIFF, CMP, ANEU #### [address] [address] RBC 4.39 10 6/mcL Normal 4.20-5.40 [facility] ([place]) Comment on above: Performed By: #### C RP, CBC, GFR, ADIFF, CMP, ANEU #### [address] [address] WBC 4.8 10 3/mcL Normal 4.6-10.8 [facility] ([place]) Comment on above: Performed By: #### C RP, CBC, GFR, ADIFF, CMP, ANEU #### [address] [address] CMPon 11-23-2023 Albumin Level 3.3 G/dL Low 3.4-4.8 [facility] ([place]) Comment on above: Performed By: #### C RP, CBC, GFR, ADIFF, CMP, ANEU #### [address] [address] Albumin/Globulin [Mass ratio] 1.0 {ratio} Low 1.1-2.5 [facility]) Comment on above: Performed By: #### C RP, CBC, GFR, ADIFF, CMP, ANEU #### [address] [address] ALP [Catalytic activity/Vol] 78 U/L Normal 40-135 [facility] ([place]) Comment on above: Performed By: #### C RP, CBC, GFR, ADIFF, CMP, ANEU #### [address] [address] ALT [Catalytic activity/Vol] 27 U/L Normal 14-59 [facility] ([place]) Comment on above: Performed By: #### C RP, CBC, GFR, ADIFF, CMP, ANEU #### [address] [address] AST [Catalytic activity/Vol] 16 U/L Normal 10-40 [facility] ([place]) Comment on above: Performed By: #### C RP, CBC, GFR, ADIFF, CMP, ANEU #### [address] [address] Bili Total 0.4 mg/dL Normal 0.2-1.0 [facility] ([place]) Comment on above: Result Comment: Use of this assay is not recommended for patients undergoing treatment with eltrombopag due to the potential for falsely elevated results. Performed By: #### C RP, CBC, GFR, ADIFF, CMP, ANEU #### [address] [address] BUN/Creatinine Ratio 22 ratio Normal 7-27 [facility] ([place]) Comment on above: Performed By: #### C RP, CBC, GFR, ADIFF, CMP, ANEU #### [address] [address] Calcium [Mass/Vol] 8.5 mg/dL Normal 8.4-10.2 [facility] ([place]) Comment on above: Performed By: #### C RP, CBC, GFR, ADIFF, CMP, ANEU #### [address] [address] Chloride [Moles/Vol] 107 mmol/L Normal 98-107 [facility] ([place]) Comment on above: Performed By: #### C RP, CBC, GFR, ADIFF, CMP, ANEU #### [address] [address] CO2 [Moles/Vol] 28 mmol/L Normal 23-31 [facility] ([place]) Comment on above: Performed By: #### C RP, CBC, GFR, ADIFF, CMP, ANEU #### [address] [address] Creatinine [Mass/Vol] 1.07 mg/dL High 0.55-1.02 [facility] ([place]) Comment on above: Performed By: #### C RP, CBC, GFR, ADIFF, CMP, ANEU #### [address] [address] Electrolyte Balance 8.0 mEq/L Normal 4.0-15.0 [facility] ([place]) Comment on above: Performed By: #### C RP, CBC, GFR, ADIFF, CMP, ANEU #### [address] [address] Globulin 3.2 G/dL Normal [facility] ([place]) Comment on above: Performed By: #### C RP, CBC, GFR, ADIFF, CMP, ANEU #### [address] [address] Glucose [Mass/Vol] 127 mg/dL High 83-110 [facility] ([place]) Comment on above: Performed By: #### C RP, CBC, GFR, ADIFF, CMP, ANEU #### [address] [address] Potassium [Moles/Vol] 3.9 mmol/L Normal 3.5-5.1 [facility] ([place]) Comment on above: Performed By: #### C RP, CBC, GFR, ADIFF, CMP, ANEU #### [address] [address] Sodium [Moles/Vol] 143 mmol/L Normal 136-145 [facility] ([place]) Comment on above: Performed By: #### C RP, CBC, GFR, ADIFF, CMP, ANEU #### [address] [address] Total Protein 6.5 G/dL Normal 6.4-8.2 [facility] ([place]) Comment on above: Performed By: #### C RP, CBC, GFR, ADIFF, CMP, ANEU #### [address] [address] Urea nitrogen [Mass/Vol] 24 mg/dL High 7-18 [facility] ([place]) Comment on above: Performed By: #### C RP, CBC, GFR, ADIFF, CMP, ANEU #### [place] [address] [place], [place] [address] CRPon 11-23-2023 C-Reactive Protein 1.7 mg/dL High 0.0-0.3 [facility] ([place]) Comment on above: Performed By: #### C RP, CBC, GFR, ADIFF, CMP, ANEU #### [place] [address] [place], [place] [address] LABORATORYOrdered By: SYSTEM SYSTEM on 11-23-2023 Albumin [...] and Lateralon IMPRESSION: No acute radiographic abnormality. Technical Systems Architect: RUTH Transcribe Date/Time: Aug 26 2023 8:41A Dictated by : JEN MINOR MD This examination was interpreted and the report reviewed and electronically signed by: JEN MINOR MD on Aug 26 2023 8:43AM [facility] DIVISION OF RADIOLOGY * * *Final Report* [...] the left humerus DIVISION OF RADIOLOGY Provider, [facility] - 08/26/2023 * * *Final Report* * [...] humerus IMPRESSION IMPRESSION: No acute radiographic abnormality. Technical Systems Architect: RUTH Transcribe Date/Time: Aug 26 2023 8:41A Dictated by : JEN MINOR MD This examination was interpreted and the report reviewed and electronically signed by: JEN MINOR MD on Aug 26 2023 8:43AM EST [facility] XR Chest PA and LateralOrder ed By: Ccf Provider on 08-26-2023 [facility] XR Chest PA and Lateralon Radiology Study observation (narrative) [facility] Renal function 2000 panelon 08-07-2023 Albumin [Mass/Vol] 4.1 g/dL 3.9 - 4.9 g/dL [facility] Anion gap [Moles/Vol] 13 mmol/L 9 - 18 mmol/L [facility] Calcium [Mass/Vol] 9.4 mg/dL 8.5 - 10. 2 mg/dL [facility] Chloride [Moles/Vol] 103 mmol/L 97 - 10 5 mmol/L [facility] CO2 [Moles/Vol] 23 mmol/L 22 - 30 mmol/L [facility] Creatinine [Mass/Vol] 1.00 mg/dL High 0.58 - 0.96 mg/dL [facility] Estimated Glomerular Filtration Rate 60 mL/min/1.73m >=60 mL/min/1.7 3m [facility] Glucose [Mass/Vol] 106 mg/dL High 74 - 99 mg/[facility] Phosphate [Mass/Vol] 3.4 mg/dL 2.7 - 4 .8 mg/dL [facility] Potassium [Moles/Vol] 3.9 mmol/L 3.7 - 5.1 mmol/L [facility] Sodium [Moles/Vol] 139 mmol/L 136 - 144 mmol/L [facility] Urea nitrogen [Mass/Vol] 22 mg/dL High 7 - 21 mg/dL [facility] XR Chest PA and Lateralon IMPRESSION: No acute radiographic abnormality. Technical Systems Architect: RUTH Transcribe Date/Time: Jul 31 2023 3:44P Dictated by : RICARDO GREER MD This examination was interpreted and the report reviewed and electronically signed by: RICARDO GREER MD on Jul 31 2023 3:45PM EST DIVISION OF RADIOLOGY * * *Final Report* [...] the left humerus. DIVISION OF RADIOLOGY Provider, [facility] - 07/31/2023 * * *Final Report* * [...] humerus. IMPRESSION IMPRESSION: No acute radiographic abnormality. Technical Systems Architect: PSCB Transcribe Date/Time: Jul 31 2023 3:44P Dictated by : RICARDO GREER MD This examination was interpreted and the report reviewed and electronically signed by: RICARDO GREER MD on Jul 31 2023 3:45PM EST [facility] Radiology Study observation (narrative) [facility] XR Chest PA and LateralOrder ed By: Ccf Provider on 07-31-2023 [facility] C-REACTIVE PROTEIN (CRP)on 0 07-09-2023 CRP [Mass/Vol] 0.9 mg/dL High <0.9 mg/dL [facility] CBC W Auto Differential pane l (Bld)on 07-09-2023 Basophils (Bld) [#/Vol] <0.11 k/uL [facility] Basophils/100 WBC (Bld) 0.3 % [facility] Differential cell count method Nom (Bld) Auto [facility] Eosinophils (Bld) [#/Vol] 0.20 10*3/uL <0.46 k/ uL [facility] Eosinophils/100 WBC (Bld) 2.6 % [facility] Erythrocyte distribution width (RBC) [Ratio] 13.2 % 11.5 - 15.0 % [facility] Hematocrit (Bld) [Volume fraction] 42.3 % 36.0 - 46.0 % [facility] Hemoglobin (Bld) [Mass/Vol] 13.5 g/dL 11.5 - 15.5 g/dL [facility] Immature granulocytes (Bld) [#/Vol] 0.03 10*3/uL <0.10 k/uL [facility] Immature granulocytes/100 WBC (Bld) 0.4 % [facility] Lymphocytes (Bld) [#/Vol] 3.20 10*3/uL 1. 00 - 4.00 k/uL [facility] Lymphocytes/100 WBC (Bld) 41.7 % [facility] MCH (RBC) [Entitic mass] 30.0 pg 26. 0 - 34.0 pg [facility] MCHC (RBC) [Mass/Vol] 31.9 g/dL 30.5 - 36.0 g/dL [facility] MCV (RBC) [Entitic vol] 94.0 fL 80.0 - 100.0 fL [facility] Monocytes (Bld) [#/Vol] 0.57 10*3/uL <0.87 k/uL [facility] Monocytes/100 WBC (Bld) 7.4 % [facility] Neutrophils (Bld) [#/Vol] 3.65 10*3/uL 1. 45 - 7.50 k/uL [facility] Neutrophils/100 WBC (Bld) 47.6 % [facility] Nucleated RBC (Bld) [#/Vol] <0.01 k/ uL [facility] Nucleated RBC/100 WBC (Bld) [Ratio] 0.0 /100 WBC [facility] Platelet mean volume (Bld) [Entitic vol] 10.9 fL 9.0 - 12.7 fL [facility] Platelets (Bld) [#/Vol] 249 10*3/uL 150 - 400 k/uL [facility] RBC (Bld) [#/Vol] 4.50 10*6/uL 3.90 - 5.20 m/uL [facility] WBC (Bld) [#/Vol] 7.67 10*3/uL 3.70 - 11.00 k/uL [facility] Comprehensive metabolic 2000 panelon 07-09-2023 Albumin [Mass/Vol] 4.3 g/dL 3.9 - 4.9 g/dL [facility] ALP [Catalytic activity/Vol] 64 U/L 34 - 123 U/L [facility] ALT [Catalytic activity/Vol] 14 U/L 7 - 38 U/L [facility] Anion gap [Moles/Vol] 11 mmol/L 9 - 18 mmol/L [facility] AST [Catalytic activity/Vol] 18 U/L 13 - 35 U/L [facility] Bilirubin [Mass/Vol] 0.3 mg/dL 0.2 - 1 .3 mg/dL [facility] Calcium [Mass/Vol] 9.4 mg/dL 8.5 - 10. 2 mg/dL [facility] Chloride [Moles/Vol] 104 mmol/L 97 - 10 5 mmol/L [facility] CO2 [Moles/Vol] 24 mmol/L 22 - 30 mmol/L [facility] Creatinine [Mass/Vol] 0.99 mg/dL High 0.58 - 0.96 mg/dL [facility] Estimated Glomerular Filtration Rate 60 mL/min/1.73m >=60 mL/min/1.7 3m [facility] Glucose [Mass/Vol] 102 mg/dL High 74 - 99 mg/dL [facility] Potassium [Moles/Vol] 4.4 mmol/L 3.7 - 5.1 mmol/L [facility] Protein [Mass/Vol] 6.9 g/dL 6.3 - 8.0 g/dL [facility] Sodium [Moles/Vol] 139 mmol/L 136 - 144 mmol/L [facility] Urea nitrogen [Mass/Vol] 24 mg/dL High 7 - 21 mg/dL [facility] HbA1c (Bld)on 07-09-2023 Average glucose Estimated from glycated hemoglobin (Bld) [Mass/Vol] 108 mg/dL [facility] HbA1c (Bld) [Mass fraction] 5.4 % 4.3 - 5.6 % [facility] T3 FREE BLDon 07-09-2023 Free T3 [Mass/Vol] 2.9 pg/mL 2.3 - 4.1 pg/mL [facility] T4 FREE/FREE THYROXon 2023 Free T4 [Mass/Vol] 1.3 ng/dL 0.9 - 1.7 ng/dL [facility] TSH BLDon 07-09-2023 TSH Qn 2.070 m[IU]/L 0.270 - 4.200 mIU/L [facility] VITAMIN B12 BLOODon 07-09-19 Cobalamin (Vitamin B12) [Mass/Vol] 660 pg/mL 232 - 1,245 pg/mL [facility] Absolute lymphocyte countOrd ered By: Gray Quintana on 04-17-2023 Lymphocytes Auto (Unsp spec) [#/Vol] 2.66 10*3/uL 0.83-4.51 [facility] Basophil percentageOrdered B y: Gray Quintana on 04-17-2023 Basophils/100 WBC (Bld) 0.3 % 0-1 [facility] [place] Bilirubin [Mass/Vol] 0.30 mg/dL 0.20-1.00 [facility] [place] Comment on above: For patients on eltr ombopag therapy, use of Dimension [place] TBIL is not recommended. Chloride [Moles/Vol] 108 mmol/L 98-107 [facility] [place] Eosinophils/100 WBC (Bld) 6.0 % 0-5 [facility] Glucose [Mass/Vol] 166 mg/dL 74-106 [facility] Comment on above: Fasting Glucose resu lt greater than or equal to 126 mg/dL suggests DIABETES MELLITUS per A.D.A. criteria. Neutrophils (Bld) [#/Vol] 2.7 10*3/uL 2.0-7.7 [facility] Neutrophils/100 WBC (Bld) 43.4 % 47-70 [facility] Potassium [Moles/Vol] 3.7 mmol/L 3.5-5.1 [facility] Protein [Mass/Vol] 6.9 g/dL 6.4-8.2 [facility] Sodium [Moles/Vol] 140 mmol/L 136-145 [facility] WBC (Bld) [#/Vol] 6.1 10*3/uL 4.4-11.0 [facility] Blood erythrocytes count (nu mber/volume)Ordered By: Gray Quintana on 04-17-2023 RBC (Bld) [#/Vol] 4.44 10*6/uL 4.2-5.4 [facility] Blood hemoglobin measurement (mass/volume)Ordered By: Gray Quintana on 04-17-2023 Hemoglobin (Bld) [Mass/Vol] 12.8 g/dL 12.0-15. 0 [facility] Blood lymphocytes/100 leukoc ytesOrdered By: Gray Quintana on 04-17-2023 Lymphocytes/100 WBC (Bld) 43.3 % 19-41 [facility] Blood monocytes/100 leukocyt esOrdered By: Gray Quintana on 04-17-2023 Monocytes/100 WBC (Bld) 6.8 % 0-10 [facility] Blood platelet mean volumeOr dered By: Gray Quintana on 04-17-2023 Platelet mean volume (Bld) [Entitic vol] 10.2 fL 6.2-12.0 [facility] Determination of erythrocyte mean corpuscular volume (MCV)Ordered By: Gray Quintana on 04-17-2023 MCV (RBC) [Entitic vol] 92.3 fL 81-99 [facility] Erythrocyte sedimentation ra teOrdered By: Gray Quintana on 04-17-2023 ESR (Bld) [Velocity] 18 mm/h 0-30 [facility] [place] Hematocrit Auto (Bld) [Volum e fraction]Ordered By: Gray Quintana on 04-17-2023 Hematocrit (Bld) [Volume fraction] 41.0 % 37-47 [facility] Laboratory - Chemistry and C hemistry - challengeOrdered By: Gray Quintana on 04-17-2023 ALP [Catalytic activity/Vol] 69 U/L 45-117 [facility] ALT [Catalytic activity/Vol] 19 U/L 13-56 [facility] CO2 [Moles/Vol] 27.0 mmol/L 21.0-32.0 [facility] Globulin (S) [Mass/Vol] 3.6 g/dL 2.2-4.2 [facility] Urea nitrogen/Creatinine [Mass ratio] 17.6 mg/mg 10-20 [facility] - Hematology and Cell countsOrdered By: Gray Quintana on 04-17-2023 Erythrocyte distribution width (RBC) [Entitic vol] 46.0 fL 35.1-43.9 [facility] Erythrocyte distribution width (RBC) [Ratio] 13.4 % 11.6-14.6 [facility] Immature granulocytes/100 WBC (Bld) 0.200 % 0.0-0.9 [facility] Comment on above: IG% - Immature Granu locytes (promyelocytes, myelocytes and metamyelocytes) > 1% indicates that a LEFT SHIFT is Present. MCH (RBC) [Entitic mass] 28.8 pg 27.0-32.0 [facility] Nucleated RBC/100 WBC (Bld) [Ratio] 0 % 0-5 [facility] MCHC Auto (RBC) [Mass/Vol]Or dered By: Gray Quintana on 04-17-2023 MCHC (RBC) [Mass/Vol] 31.2 g/dL 32-36 [facility] No Panel InformationOrdered By: Gray Quintana on 04-17-2023 Estimated GFR (MDRD) Amer 64 mL/min >60 [facility] Comment on above: GFR Calc Estimated GFR (MDRD) Non-Af Amer 53 mL/min >60 [facility] Comment on above: Non- GFR Calc Platelets bldOrdered By: Yared Quintana on 04-17-2023 Platelets (Bld) [#/Vol] 295 10*3/uL 150-450 [facility] Serum or plasma C reactive p rotein measurement (mass/volume)Ordered By: Gray Quintana on 04-17-2023 CRP [Mass/Vol] 18.00 mg/L 0.0-3.0 [facility] Comment on above: C-Reactive Protein ( CRP) provides useful information for thediagnosis, therapy and monitoring of inflammatory processesand associated diseases. For the evaluation of Relative Riskfor Cardiovascular Disease, a High Sensitivity CRP (HSCRP)should be ordered. Serum or plasma albumin lydia urement (mass/volume)Ordered By: Gray Quintana on 04-17-2023 Albumin [Mass/Vol] 3.3 g/dL 3.2-5.0 [facility] Serum or plasma albumin/glob ulin mass ratioOrdered By: Gray Quintana on 04-17-2023 Albumin/Globulin [Mass ratio] 0.9 {ratio} 0.9-2.4 [facility] Serum or plasma calcium lydia urement (mass/volume)Ordered By: Gray Quintana on 04-17-2023 Calcium [Mass/Vol] 8.5 mg/dL 8.5-10.1 [facility] Serum or plasma creatinine m easurement (mass/volume)Ordered By: Gray Quintana on 04-17-2023 Creatinine [Mass/Vol] 1.08 mg/dL 0.55-1.02 [facility] Comment on above: The validity of the calculated GFR & GFRAA in patients over 70 years has not been determined. Clinical correlation is essential. Serum or plasma urea nitroge n measurement (mass/volume)Ordered By: Gray Quintana on 04-17-2023 Urea nitrogen [Mass/Vol] 19 mg/dL 7-18 [facility] Thin prep Papanicolaou smear with manual screeningOrdered By: Gray Quintana on 04-17-2023 Thin prep Papanicolaou smear with manual screening 13 U/L 15-37 [facility] Thin prep Papanicolaou smear with manual screening 5 5-15 [facility] Influenza virus A and B and SARS-CoV-2 (COVID-19) Ag panel - Upper respiratory specimOrdered By: Jordin Najera on 03-23-2023 SARS-CoV-2 (COVID-19) RNA MOUNIKA+probe Ql (Resp) [facility] RSV Ag EIAOrdered By: Jordin yarbrough on 03-23-2023 RSV Ag Immune stain Ql (Tiss) [facility] Throat Streptococcus pyogene s antigen detection by immunofluorescenceOrdered By: Jordin Najera on 03-23-2023 S. pyogenes Ag IF Ql (Throat) [facility] Urinalysis complete panel (U )on 12-28-2022 Bilirubin Ql (U) Negative Negative [facility] Clarity (Unsp spec) Clear Clear [facility] Color (U) Light Yellow Yellow [facility] Epithelial cells LM.HPF (Urine sed) [#/Area] Few Abnormal None Seen /HPF [facility] Glucose Test strip (U) [Mass/Vol] Negative Trace, Negative [facility] Hemoglobin Ql (U) Trace Negative, Trace [facility] Ketones Ql (U) Negative Trace, Negative [facility] Leukocyte esterase Test strip Ql (U) Negative Negative, 25 Shahid/uL [facility] Nitrite Ql (U) Negative Negative [facility] pH (U) 5.5 [pH] 5.0 - 8.0 [facility] Protein (U) [Mass/Vol] Negative Trace , Negative [facility] RBC LM.HPF (Urine sed) [#/Area] 0-3 /HPF 0-3 /HPF [facility] Specific gravity (U) [Rel density] 1.025 1.005 - 1.030 [facility] Urobilinogen Ql (U) Negative Negative [facility] WBC LM.HPF (Urine sed) [#/Area] 0-5 /HPF 0-5 /HPF [facility] CBC W Auto Differential pane l (Bld)on 11-14-2022 Basophils (Bld) [#/Vol] <0.11 k/uL [facility] Basophils/100 WBC (Bld) 0.3 % [facility] Differential cell count method Nom (Bld) Auto [facility] Eosinophils (Bld) [#/Vol] 0.26 10*3/uL <0.46 k/ uL [facility] Eosinophils/100 WBC (Bld) 3.3 % [facility] Erythrocyte distribution width (RBC) [Ratio] 13.5 % 11.5 - 15.0 % [facility] Hematocrit (Bld) [Volume fraction] 40.4 % 36.0 - 46.0 % [facility] Hemoglobin (Bld) [Mass/Vol] 12.7 g/dL 11.5 - 15.5 g/dL [facility] Immature granulocytes (Bld) [#/Vol] <0.10 k/uL [facility] Immature granulocytes/100 WBC (Bld) 0.3 % [facility] Lymphocytes (Bld) [#/Vol] 2.59 10*3/uL 1. 00 - 4.00 k/uL [facility] Lymphocytes/100 WBC (Bld) 33.2 % [facility] MCH (RBC) [Entitic mass] 29.7 pg 26. 0 - 34.0 pg [facility] MCHC (RBC) [Mass/Vol] 31.4 g/dL 30.5 - 36.0 g/dL [facility] MCV (RBC) [Entitic vol] 94.6 fL 80.0 - 100.0 fL [facility] Monocytes (Bld) [#/Vol] 0.58 10*3/uL <0.87 k/uL [facility] Monocytes/100 WBC (Bld) 7.4 % [facility] Neutrophils (Bld) [#/Vol] 4.33 10*3/uL 1. 45 - 7.50 k/uL [facility] Neutrophils/100 WBC (Bld) 55.5 % [facility] Nucleated RBC (Bld) [#/Vol] <0.01 k/ uL [facility] Nucleated RBC/100 WBC (Bld) [Ratio] 0.0 /100 WBC [facility] Platelet mean volume (Bld) [Entitic vol] 10.2 fL 9.0 - 12.7 fL [facility] Platelets (Bld) [#/Vol] 301 10*3/uL 150 - 400 k/uL [facility] RBC (Bld) [#/Vol] 4.27 10*6/uL 3.90 - 5.20 m/uL [facility] WBC (Bld) [#/Vol] 7.80 10*3/uL 3.70 - 11.00 k/uL [facility] LABORATORYOrdered By: MINDY BILL CONTRIBUTOR_SYSTEM on 07-12-2022 Calprotectin, Fecal 99.3 mg/kg Invalid Interpretation Code 0-50mg/kg AO Sendouts SS Comment on above: Result Comment: INTE RPRETIVE INFORMATION: Calprotectin, Fecal <50.0 mg/kg : Normal 50.0-120.0 mg/kg: Borderline. Test should be re-evaluated in 4-6 wks. >120.0 mg/kg: Abnormal Performed By: [facility] [address] [place] [address] Wardrobe Custodian: Diomedes Linder III, M.D. [facility]#: [id number] CBC W Auto Differential pane l (Bld)on 07-03-2022 Basophils (Bld) [#/Vol] 0.03 10*3/uL <0.11 k/uL [facility] Basophils/100 WBC (Bld) 0.5 % [facility] Differential cell count method Nom (Bld) Auto [facility] Eosinophils (Bld) [#/Vol] 0.13 10*3/uL <0.46 k/ uL [facility] Eosinophils/100 WBC (Bld) 2.2 % [facility] Erythrocyte distribution width (RBC) [Ratio] 13.8 % 11.5 - 15.0 % [facility] Hematocrit (Bld) [Volume fraction] 42.3 % 36.0 - 46.0 % [facility] Hemoglobin (Bld) [Mass/Vol] 13.5 g/dL 11.5 - 15.5 g/dL [facility] Immature granulocytes (Bld) [#/Vol] <0.10 k/uL [facility] Immature granulocytes/100 WBC (Bld) 0.0 % [facility] Lymphocytes (Bld) [#/Vol] 2.55 10*3/uL 1. 00 - 4.00 k/uL [facility] Lymphocytes/100 WBC (Bld) 42.9 % [facility] MCH (RBC) [Entitic mass] 29.0 pg 26. 0 - 34.0 pg [facility] MCHC (RBC) [Mass/Vol] 31.9 g/dL 30.5 - 36.0 g/dL [facility] MCV (RBC) [Entitic vol] 90.8 fL 80.0 - 100.0 fL [facility] Monocytes (Bld) [#/Vol] 0.45 10*3/uL <0.87 k/uL [facility] Monocytes/100 WBC (Bld) 7.6 % [facility] Neutrophils (Bld) [#/Vol] 2.79 10*3/uL 1. 45 - 7.50 k/uL [facility] Neutrophils/100 WBC (Bld) 46.8 % [facility] Nucleated RBC (Bld) [#/Vol] <0.01 k/ uL [facility] Nucleated RBC/100 WBC (Bld) [Ratio] 0.0 /100 WBC [facility] Platelet mean volume (Bld) [Entitic vol] 11.2 fL 9.0 - 12.7 fL [facility] Platelets (Bld) [#/Vol] 233 10*3/uL 150 - 400 k/uL [facility] RBC (Bld) [#/Vol] 4.66 10*6/uL 3.90 - 5.20 m/uL [facility] WBC (Bld) [#/Vol] 5.95 10*3/uL 3.70 - 11.00 k/uL [facility] LABORATORYOrdered By: Tanisha Cartagena on 06-06-2022 Albumin [...] No Parasites Seen SOURCE: STOOL Performed By: [facility] [address] [place] [address] Wardrobe Custodian: Bret Mancini III#: [id number] LABORATORYOrdered By: Andree Cerda on 01-24-2022 Albumin [...] Auto (Unsp spec) [#/Vol] 2.26 10*3/uL 0.83-4.51 [facility] Work Phone: Basophil percentageon 2021 Basophils/100 WBC (Bld) 0.3 % 0-1 [facility] Work Phone: Eosinophils/100 WBC (Bld) 6.4 % 0-5 [facility] Work Phone: Neutrophils (Bld) [#/Vol] 3.7 10*3/uL 2.0-7.7 [facility] Work Phone: Neutrophils/100 WBC (Bld) 53.2 % 47-70 [facility] Work Phone: WBC (Bld) [#/Vol] 6.9 10*3/uL 4.4-11.0 [facility] Work Phone: Blood erythrocytes count (nu mber/volume)on 12-15-2021 RBC (Bld) [#/Vol] 4.21 10*6/uL [facility].2-5.4 [facility]: Blood hemoglobin measurement (mass/volume)on 12-15-2021 Hemoglobin (Bld) [Mass/Vol] 12.6 g/dL 12.0-15. 0 [facility] Work Phone: Blood lymphocytes/100 leukoc yteson 12-15-2021 Lymphocytes/100 WBC (Bld) 32.8 % 19-41 [facility] Work Phone: [phone] Blood monocytes/100 leukocyt eson 12-15-2021 Monocytes/100 WBC (Bld) 7.0 % 0-10 [facility] Work Phone: Blood platelet mean volumeon 12-15-2021 Platelet mean volume (Bld) [Entitic vol] 10.6 fL 6.2-12.0 [facility] Work Phone: Determination of erythrocyte mean corpuscular volume (MCV)on 12-15-2021 MCV (RBC) [Entitic vol] 95.5 fL 81-99 [facility] Work Phone: Hematocrit Auto (Bld) [Volum e fraction]on 12-15-2021 Hematocrit (Bld) [Volume fraction] 40.2 % 37-47 [facility] Work Phone: Laboratory - Hematology and Cell countson 12-15-2021 Erythrocyte distribution width (RBC) [Entitic vol] 51.2 fL 35.1-43.9 [facility] Work Phone: Erythrocyte distribution width (RBC) [Ratio] 14.6 % 11.6-14.6 [facility] Work Phone: Immature granulocytes/100 WBC (Bld) 0.300 % 0.0-0.9 [facility] Work Phone: Comment on above: IG% - Immature Granu locytes (promyelocytes, myelocytes and metamyelocytes) > 1% indicates that a LEFT SHIFT is Present. MCH (RBC) [Entitic mass] 29.9 pg 27.0-32.0 [facility] Work Phone: Nucleated RBC/100 WBC (Bld) [Ratio] 0 % 0-5 [facility] Work Phone: MCHC Auto (RBC) [Mass/Vol]on 12-15-2021 MCHC (RBC) [Mass/Vol] 31.3 g/dL 32-36 [facility] Work Phone: Platelets bldon 12-15-2021 Platelets (Bld) [#/Vol] 175 10*3/uL 150-450 [facility] Work Phone: LABORATORYOrdered By: Tanisha Cartagena [...] Ql (Unsp spec) Not detected Not Detect [facility] Work Phone: Comment on above: Normal [...] 10,000 - 50,000 cfu/ ml Escherichia coli [facility] Work Phone: Escherichia coli Escherichia coli [facility] [place] Work Phone: No Panel Informationon 08-25 Stool Calprotectin 97 ug/g 0-120 [facility] Work Phone: Comment on above: Concentration Interp retation Follow-Up<16 - 50 ug/g Normal None>50 -120 ug/g Borderline Re-evaluate in 4-6 weeks >120 ug/g Abnormal Repeat as clinically indicatedPerformed at: [facility] Lab[address] [id number] Director: Camilla Tan MD, Phone: [phone] Absolute lymphocyte counton 08-24-2021 Lymphocytes Auto (Unsp spec) [#/Vol] 2.58 10*3/uL 0.83-4.51 [facility] Work Phone: Basophil percentageon 2021 Basophils/100 WBC (Bld) 0.5 % 0-1 [facility] Work Phone: Bilirubin [Mass/Vol] 0.50 mg/dL 0.20-1.00 [facility] Work Phone: Comment on above: For patients on eltr ombopag therapy, use of Dimension [place] TBIL is not recommended. Chloride [Moles/Vol] 109 mmol/L 98-107 [facility] Work Phone: Eosinophils/100 WBC (Bld) 1.6 % 0-5 [facility] Work Phone: Glucose [Mass/Vol] 122 mg/dL 74-106 [facility] Work Phone: Comment on above: Fasting Glucose resu lt from 100 to 125 mg/dL suggests IMPAIRED HOMEOSTASIS per A.D.A. criteria. Neutrophils (Bld) [#/Vol] 3.2 10*3/uL 2.0-7.7 [facility] Work Phone: Neutrophils/100 WBC (Bld) 51.3 % 47-70 [facility] Work Phone: Potassium [Moles/Vol] 3.4 mmol/L 3.5-5.1 [facility] Work Phone: Protein [Mass/Vol] 7.2 g/dL 6.4-8.2 [facility] Work Phone: Sodium [Moles/Vol] 140 mmol/L 136-145 [facility] Work Phone: WBC (Bld) [#/Vol] 6.3 10*3/uL 4.4-11.0 [facility] Work Phone: Blood erythrocytes count (nu mber/volume)on 08-24-2021 RBC (Bld) [#/Vol] 4.61 10*6/uL 4.2-5.4 [facility] Work Phone: Blood hemoglobin measurement (mass/volume)on 08-24-2021 Hemoglobin (Bld) [Mass/Vol] 13.6 g/dL 12.0-15. 0 [facility] Work Phone: Blood lymphocytes/100 leukoc yteson 08-24-2021 Lymphocytes/100 WBC (Bld) 41.1 % 19-41 [facility] Work Phone: [phone] Blood monocytes/100 leukocyt eson 08-24-2021 Monocytes/100 WBC (Bld) 5.3 % 0-10 [facility] Work Phone: Blood platelet mean volumeon 08-24-2021 Platelet mean volume (Bld) [Entitic vol] 10.2 fL 6.2-12.0 [facility] Work Phone: Determination of erythrocyte mean corpuscular volume (MCV)on 08-24-2021 MCV (RBC) [Entitic vol] 90.5 fL 81-99 [facility] Work Phone: Erythrocyte sedimentation [place] 08-24-2021 ESR (Bld) [Velocity] 23 mm[facility]h [facility]: Hematocrit Auto (Bld) [Volum e fraction]on 08-24-2021 Hematocrit (Bld) [Volume fraction] 41.7 % 37-47 [facility] Work Phone: Laboratory - Chemistry and C hemistry - challengeon 08-24-2021 ALP [Catalytic activity/Vol] 80 U/L 45-117 [facility] Work Phone: ALT [Catalytic activity/Vol] 24 U/L 13-56 [facility] Work Phone: CO2 [Moles/Vol] 26.0 mmol/L 21.0-32.0 [facility] Work Phone: Globulin (S) [Mass/Vol] 3.7 g/dL 2.2-4.2 [facility] Work Phone: Urea nitrogen/Creatinine [Mass ratio] 19.8 mg/mg 10-20 [facility] Work Phone: Laboratory - Hematology and Cell countson 08-24-2021 Erythrocyte distribution width (RBC) [Entitic vol] 44.9 fL 35.1-43.9 [facility] Work Phone: Erythrocyte distribution width (RBC) [Ratio] 13.5 % 11.6-14.6 [facility] Work Phone: Immature granulocytes/100 WBC (Bld) 0.200 % 0.0-0.9 [facility] Work Phone: Comment on above: IG% - Immature Granu locytes (promyelocytes, myelocytes and metamyelocytes) > 1% indicates that a LEFT SHIFT is Present. MCH (RBC) [Entitic mass] 29.5 pg 27.0-32.0 [facility] Work Phone: Nucleated RBC/100 WBC (Bld) [Ratio] 0 % 0-5 [facility] Work Phone: MCHC Auto (RBC) [Mass/Vol]on 08-24-2021 MCHC (RBC) [Mass/Vol] 32.6 g/dL 32-36 [facility] Work Phone: No Panel Informationon 08-24 Estimated GFR (MDRD) Amer 69 mL/min >60 [facility] Work Phone: Comment on above: GFR Calc Estimated GFR (MDRD) Non-Af Amer 57 mL/min >60 [facility] Work Phone: Comment on above: Non- GFR Calc Vitamin D 25-Hydroxy 48.5 ng/mL [facility] Work Phone: Comment on above: Vitamin D 25(OH) Sta tus Range Deficiency <20 ng/mL (50nmol/L) Insufficiency 20 - 30 ng/mL (50 - 75 nmol/L) Sufficiency 30 - 100 ng/mL (75 - 250 nmol/L) Toxicity >100 ng/mL (>250 nmol/L) Platelets bldon 08-24-2021 Platelets (Bld) [#/Vol] 286 10*3/uL 150-450 [facility] Work Phone: Serum or plasma C reactive p rotein measurement (mass/volume)on 08-24-2021 CRP [Mass/Vol] 11.00 mg/L 0.0-3.0 [facility] Work Phone: Comment on above: C-Reactive Protein ( CRP) provides useful information for thediagnosis, therapy and monitoring of inflammatory processesand associated diseases. For the evaluation of Relative Riskfor Cardiovascular Disease, a High Sensitivity CRP (HSCRP)should be ordered. Serum or plasma albumin lydia urement (mass/volume)on 08-24-2021 Albumin [Mass/Vol] 3.5 g/dL 3.2-5.0 [facility] Work Phone: Serum or plasma albumin/glob ulin mass ratioon 08-24-2021 Albumin/Globulin [Mass ratio] 0.9 {ratio} 0.9-2.4 [facility] Work Phone: Serum or plasma calcium lydia urement (mass/volume)on 08-24-2021 Calcium [Mass/Vol] 9.0 mg/dL 8.5-10.1 [facility] Work Phone: Serum or plasma creatinine m easurement (mass/volume)on 08-24-2021 Creatinine [Mass/Vol] 1.01 mg/dL 0.55-1.02 [facility] Work Phone: Comment on above: The validity of the calculated GFR & GFRAA in patients over 70 years has not been determined. Clinical correlation is essential. Serum or plasma urea nitroge n measurement (mass/volume)on 08-24-2021 Urea nitrogen [Mass/Vol] 20 mg/dL 7-18 [facility] Work Phone: Thin prep Papanicolaou smear with manual screeningon 08-24-2021 Thin prep Papanicolaou smear with manual screening 19 U/L 15-37 [facility] Work Phone: Thin prep Papanicolaou smear with manual screening 5 5-15 [facility] Work Phone: Basophil percentageon 2021 Chloride [Moles/Vol] 109 mmol/L 98-107 [facility] Work Phone: Glucose [Mass/Vol] 97 mg/dL 74-106 [facility] Work Phone: Potassium [Moles/Vol] 4.0 mmol/L 3.5-5.1 [facility] Work Phone: Sodium [Moles/Vol] 140 mmol/L 136-145 [facility] Work Phone: Laboratory - Chemistry and C hemistry - challengeon 08-09-2021 CO2 [Moles/Vol] 27.0 mmol/L 21.0-32.0 [facility] Work Phone: Urea nitrogen/Creatinine [Mass ratio] 18.6 mg/mg 10-20 [facility] Work Phone: No Panel Informationon 08-09 Estimated GFR (MDRD) Amer 78 mL/min >60 [facility] Work Phone: Comment on above: GFR Calc Estimated GFR (MDRD) Non-Af Amer 65 mL/min >60 [facility] Work Phone: Comment on above: Non- GFR Calc Serum or plasma calcium lydia urement (mass/volume)on 08-09-2021 Calcium [Mass/Vol] 8.7 mg/dL 8.5-10.1 [facility] Work Phone: Serum or plasma creatinine m easurement (mass/volume)on 08-09-2021 Creatinine [Mass/Vol] 0.91 mg/dL 0.55-1.02 [facility] Work Phone: Comment on above: The validity of the calculated GFR & GFRAA in patients over 70 years has not been determined. Clinical correlation is essential. Serum or plasma urea nitroge n measurement (mass/volume)on 08-09-2021 Urea nitrogen [Mass/Vol] 17 mg/dL 7-18 [facility] Work Phone: Thin prep Papanicolaou smear with manual screeningon 08-09-2021 Thin prep Papanicolaou smear with manual screening 4 5-15 [facility] Work Phone: No Panel Informationon 06-23 Culture Urine <10,000 cfu/ml. No Significant growth. Sensitivity not indicated. [facility] Work Phone: LABORATORYOrdered By: Sophy Sales [...] Time Vital Sign Value Performing Clinician Facility 01-19-2025 13:36-0400 Body mass index (BMI) [Ratio] 40.51 kg/m2 Jean Carlos Brown APRN.STATIONS SUPERINTENDENT Work Phone: [facility] 01-19-2025 13:36-0400 Body weight 107.05 kg Jean Carlos Stephanie PIPELINES MANAGER.STATIONS SUPERINTENDENT Work Phone: [facility] 01-19-2025 13:36-0400 Diastolic blood pressure 76 mm[Hg] Jean Carlos Stephanie PIPELINES MANAGER.STATIONS SUPERINTENDENT Work Phone: [facility] 01-19-2025 13:36-0400 Heart rate 76 /min Jean Carlos Stephanie PIPELINES MANAGER.STATIONS SUPERINTENDENT Work Phone: [facility] 01-19-2025 13:36-0400 Respiratory rate 16 /min Jean Carlos Stephanie PIPELINES MANAGER.STATIONS SUPERINTENDENT Work Phone: [facility] 01-19-2025 13:36-0400 SaO2% (BldA) [Mass fraction] 96 % Jean Carlos Stephanie PIPELINES MANAGER.STATIONS SUPERINTENDENT Work Phone: [facility] 01-19-2025 13:36-0400 Systolic blood pressure 124 mm[Hg] Jean Carlos Stephanie PIPELINES MANAGER.STATIONS SUPERINTENDENT Work Phone: [facility] 01-17-2025 12:49-0400 Body temperature 98.5 [degF] Dr. Gray Quintana DO Work Phone: [facility] 01-17-2025 12:49-0400 Diastolic blood pressure 56 mm[Hg] Dr. Gray Quintana DO Work Phone: [facility] 01-17-2025 12:49-0400 Heart rate 73 /min Dr. Gray Quintana DO Work Phone: [facility] 01-17-2025 12:49-0400 Respiratory rate 14 /min Dr. Gray Quintana DO Work Phone: [facility] 01-17-2025 12:49-0400 SaO2% (BldA) [Mass fraction] 97 % Dr. Gray Quintana DO Work Phone: [facility] 01-17-2025 12:49-0400 Systolic blood pressure 102 mm[Hg] Dr. Gray Quintana DO Work Phone: [facility] 01-17-2025 10:01-0400 Body height 162.[address] Gray Quintana DO Work Phone: 2([phone])994-955520 [place] [address] 01-17-2025 10:01-0400 Body mass index (BMI) [Ratio] 39.9 kg/m2 Dr. Gray Quintana DO Work Phone: 8(135)[phone] [place] [address] 01-17-2025 10:01-0400 Body weight 105.[address] Gray Quintana DO Work Phone: 8(986)[phone] [place] [address] 01-15-2025 14:35-0400 Body temperature 97.4 [degF] Dr. Gray Quintana DO Work Phone: 6(436)[phone] [place] [address] 01-15-2025 14:35-0400 Diastolic blood pressure 75 mm[Hg] Dr. Gray Quintana DO Work Phone: 6(809)[phone] [place] [address] 01-15-2025 14:35-0400 Heart rate 88 /min Dr. Gray Quintana DO Work Phone: 5(408)[phone] [place] [address] 01-15-2025 14:35-0400 Respiratory rate 18 /min Dr. Gray Quintana DO Work Phone: 2(548)[phone] [place] [address] 01-15-2025 14:35-0400 SaO2% (BldA) [Mass fraction] 98 % Dr. Gray Quintana DO Work Phone: 0(100)[phone] [place] [address] 01-15-2025 14:35-0400 Systolic blood pressure 131 mm[Hg] Dr. Gray Quintana DO Work Phone: 2(276)[phone] [place] [address] 01-15-2025 11:52-0400 Body height 162.[address] Gray Quintana DO Work Phone: 0(609)[phone] [place] [address] 01-15-2025 11:52-0400 Body mass index (BMI) [Ratio] 40.4 kg/m2 Dr. Gray Quintana DO Work Phone: 6(111)[phone] [place] [address] 01-15-2025 11:52-0400 Body weight 106.[address] Gray Quintana DO Work Phone: 8(789)[phone] [place] [address] 01-12-2025 12:33-0400 Body mass index (BMI) [Ratio] 40.82 kg/m2 Madison Podlogar PIPELINES MANAGER.STATIONS SUPERINTENDENT Work Phone: [facility] 01-12-2025 12:33-0400 Body temperature 98.71 [degF] Madison Podlogar PIPELINES MANAGER.STATIONS SUPERINTENDENT Work Phone: [facility] 01-12-2025 12:33-0400 Body weight 107.86 kg Madison Podlogar PIPELINES MANAGER.STATIONS SUPERINTENDENT Work Phone: [facility] 01-12-2025 12:33-0400 Diastolic blood pressure 72 mm[Hg] Madison Podlogar PIPELINES MANAGER.STATIONS SUPERINTENDENT Work Phone: [facility] 01-12-2025 12:33-0400 Heart rate 88 /min Madison Podlogar PIPELINES MANAGER.STATIONS SUPERINTENDENT Work Phone: [facility] 01-12-2025 12:33-0400 Respiratory rate 18 /min Madison Podlogar PIPELINES MANAGER.STATIONS SUPERINTENDENT Work Phone: [facility] 01-12-2025 12:33-0400 SaO2% (BldA) [Mass fraction] 96 % Madison Podlogar PIPELINES MANAGER.STATIONS SUPERINTENDENT Work Phone: [facility] 01-12-2025 12:33-0400 Systolic blood pressure 114 mm[Hg] Madison Podlogar PIPELINES MANAGER.STATIONS SUPERINTENDENT Work Phone: [facility] 12-29-2024 10:27-0400 Body mass index (BMI) [Ratio] 40.68 kg/m2 Yarely Suppan PIPELINES MANAGER.STATIONS SUPERINTENDENT Work Phone: [facility] 12-29-2024 10:27-0400 Body temperature 97.2 [degF] Yarely Suppan PIPELINES MANAGER.STATIONS SUPERINTENDENT Work Phone: [facility] 12-29-2024 10:27-0400 Body weight 107.5 kg Yarely Suppan PIPELINES MANAGER.STATIONS SUPERINTENDENT Work Phone: [facility] 12-29-2024 10:27-0400 Diastolic blood pressure 82 mm[Hg] Yarely Suppan PIPELINES MANAGER.STATIONS SUPERINTENDENT Work Phone: [facility] 12-29-2024 10:27-0400 Heart rate 88 /min Yarely Tijerina PIPELINES MANAGER.STATIONS SUPERINTENDENT Work Phone: [facility] 12-29-2024 10:27-0400 SaO2% (BldA) [Mass fraction] 95 % Yarely Tijerina PIPELINES MANAGER.STATIONS SUPERINTENDENT Work Phone: [facility] 12-29-2024 10:27-0400 Systolic blood pressure 120 mm[Hg] Yarely Tijerina PIPELINES MANAGER.STATIONS SUPERINTENDENT Work Phone: [facility] 12-04-2024 08:44-0400 Body mass index (BMI) [Ratio] 41.63 kg/m2 Jason Francois PIPELINES MANAGER.STATIONS SUPERINTENDENT Work Phone: [facility] 12-04-2024 08:44-0400 Body weight 110 kg Jason Francois PIPELINES MANAGER.STATIONS SUPERINTENDENT Work Phone: [facility] 12-04-2024 08:44-0400 Diastolic blood pressure 81 mm[Hg] Jason Lioble PIPELINES MANAGER.STATIONS SUPERINTENDENT Work Phone: [facility] 12-04-2024 08:44-0400 Heart rate 90 /min Jason Francois PIPELINES MANAGER.STATIONS SUPERINTENDENT Work Phone: [facility] 12-04-2024 08:44-0400 Systolic blood pressure 119 mm[Hg] Jason Francois PIPELINES MANAGER.STATIONS SUPERINTENDENT Work Phone: [facility] 11-18-2024 11:16-0400 Body mass index (BMI) [Ratio] 41.02 kg/m2 Dominick Click PIPELINES MANAGER.STATIONS SUPERINTENDENT Work Phone: [facility] 11-18-2024 11:16-0400 Body weight 108.41 kg Dominick Click PIPELINES MANAGER.STATIONS SUPERINTENDENT Work Phone: [facility] 11-18-2024 11:16-0400 Diastolic blood pressure 84 mm[Hg] Dominick Click PIPELINES MANAGER.STATIONS SUPERINTENDENT Work Phone: [facility] 11-18-2024 11:16-0400 Heart rate 83 /min Dominick Click PIPELINES MANAGER.STATIONS SUPERINTENDENT Work Phone: [facility] 11-18-2024 11:16-0400 Respiratory rate 17 /min Dominick Click PIPELINES MANAGER.STATIONS SUPERINTENDENT Work Phone: [facility] 11-18-2024 11:16-0400 SaO2% (BldA) [Mass fraction] 94 % Dominick Click PIPELINES MANAGER.STATIONS SUPERINTENDENT Work Phone: [facility] 11-18-2024 11:16-0400 Systolic blood pressure 132 mm[Hg] Dominick Click PIPELINES MANAGER.STATIONS SUPERINTENDENT Work Phone: [facility] 11-05-2024 14:12-0400 Body mass index (BMI) [Ratio] 41.4 kg/m2 Cherelle Mo MD Work Phone: [facility] 11-05-2024 14:12-0400 Body weight 109.4 kg Cherelle Mo MD Work Phone: [facility] 11-05-2024 14:12-0400 Heart rate 98 /min Cherelle Mo MD Work Phone: [facility] 11-05-2024 14:12-0400 SaO2% (BldA) [Mass fraction] 95 % Cherelle Mo MD Work Phone: [facility] 10-30-2024 13:32-0400 Body height 162.6 cm Bri Moeller MD Work Phone: [facility] 10-30-2024 13:32-0400 Body mass index (BMI) [Ratio] 41.37 kg/m2 Bri Moeller MD Work Phone: [facility] 10-30-2024 13:32-0400 Body temperature 97 [degF] Bri Moeller MD Work Phone: [facility] 10-30-2024 13:32-0400 Body weight 109.32 kg Bri Moeller MD Work Phone: [facility] 10-30-2024 13:32-0400 Diastolic blood pressure 70 mm[Hg] Bri Moeller MD Work Phone: [facility] 10-30-2024 13:32-0400 Heart rate 98 /min Bri Moeller MD Work Phone: [facility] 10-30-2024 13:32-0400 Respiratory rate 20 /min Bri Moeller MD Work Phone: [facility] 10-30-2024 13:32-0400 SaO2% (BldA) [Mass fraction] 94 % Bri Moeller MD Work Phone: [facility] 10-30-2024 13:32-0400 Systolic blood pressure 102 mm[Hg] Bri Meoller MD Work Phone: [facility] 10-03-2024 07:51-0400 Body mass index (BMI) [Ratio] 41.34 kg/m2 Gray Quintana DO Work Phone: [facility] 10-03-2024 07:51-0400 Body temperature 97.11 [degF] Gray Quintana DO Work Phone: [facility] 10-03-2024 07:51-0400 Body weight 109.32 kg Gray Quintana DO Work Phone: [facility] 10-03-2024 07:51-0400 Diastolic blood pressure 60 mm[Hg] Gray Quintana DO Work Phone: [facility] 10-03-2024 07:51-0400 Heart rate 64 /min Gray Quintana DO Work Phone: [facility] 10-03-2024 07:51-0400 Respiratory rate 20 /min Gray Quintana DO Work Phone: [facility] 10-03-2024 07:51-0400 Systolic blood pressure 110 mm[Hg] Gray Quintana DO Work Phone: [facility] 09-23-2024 13:16-0400 Body mass index (BMI) [Ratio] 41 kg/m2 Williams Martinez MD Work Phone: [facility] 09-23-2024 13:16-0400 Body weight 108.41 kg Williams Martinez MD Work Phone: [facility] 09-23-2024 13:16-0400 Diastolic blood pressure 71 mm[Hg] Williams Martinez MD Work Phone: [facility] 09-23-2024 13:16-0400 Heart rate 90 /min Williams Martinez MD Work Phone: [facility] 09-23-2024 13:16-0400 Systolic blood pressure 116 mm[Hg] Williams Martinez MD Work Phone: [facility] 09-11-2024 12:23-0400 Body mass index (BMI) [Ratio] 42.06 kg/m2 Amelia Dania PIPELINES MANAGER.STATIONS SUPERINTENDENT Work Phone: [facility] 09-11-2024 12:23-0400 Body temperature 98.8 [degF] Amelia Dania PIPELINES MANAGER.STATIONS SUPERINTENDENT Work Phone: [facility] 09-11-2024 12:23-0400 Body weight 111.22 kg Amelia Dania PIPELINES MANAGER.STATIONS SUPERINTENDENT Work Phone: [facility] 09-11-2024 12:23-0400 Diastolic blood pressure 68 mm[Hg] Amelia Dania PIPELINES MANAGER.STATIONS SUPERINTENDENT Work Phone: [facility] Comment on above: bp machine 09-11-2024 12:23-0400 Heart rate 80 /min Amelia Martinezutzman PIPELINES MANAGER.STATIONS SUPERINTENDENT Work Phone: [facility] 09-11-2024 12:23-0400 SaO2% (BldA) [Mass fraction] 95 % Amelia Dania PIPELINES MANAGER.STATIONS SUPERINTENDENT Work Phone: [facility] 09-11-2024 12:23-0400 Systolic blood pressure 104 mm[Hg] Amelia Dania PIPELINES MANAGER.STATIONS SUPERINTENDENT Work Phone: [facility] Comment on above: bp machine 07-28-2024 13:05-0500 Diastolic blood pressure 64 mm[Hg] Christina Anthony PIPELINES MANAGER.STATIONS SUPERINTENDENT Work Phone: [facility] 07-28-2024 13:05-0500 Heart rate 88 /min Christina Anthony PIPELINES MANAGER.STATIONS SUPERINTENDENT Work Phone: [facility] 07-28-2024 13:05-0500 Respiratory rate 16 /min Christina Anthony PIPELINES MANAGER.STATIONS SUPERINTENDENT Work Phone: [facility] 07-28-2024 13:05-0500 SaO2% (BldA) [Mass fraction] 98 % Christina Anthony PIPELINES MANAGER.STATIONS SUPERINTENDENT Work Phone: [facility] 07-28-2024 13:05-0500 Systolic blood pressure 130 mm[Hg] Christina Anthony PIPELINES MANAGER.STATIONS SUPERINTENDENT Work Phone: [facility] 07-16-2024 12:59-0500 Body mass index (BMI) [Ratio] 41.58 kg/m2 Christina Anthony PIPELINES MANAGER.STATIONS SUPERINTENDENT Work Phone: [facility] 07-16-2024 12:59-0500 Body weight 109.95 kg Christina Anthony PIPELINES MANAGER.STATIONS SUPERINTENDENT Work Phone: [facility] 07-16-2024 12:59-0500 Diastolic blood pressure 80 mm[Hg] Christina Anthony PIPELINES MANAGER.STATIONS SUPERINTENDENT Work Phone: [facility] 07-16-2024 12:59-0500 Heart rate 95 /min Christina Anthony PIPELINES MANAGER.STATIONS SUPERINTENDENT Work Phone: [facility] 07-16-2024 12:59-0500 Respiratory rate 14 /min Christina Anthony PIPELINES MANAGER.STATIONS SUPERINTENDENT Work Phone: [facility] 07-16-2024 12:59-0500 SaO2% (BldA) [Mass fraction] 95 % Christina Anthony PIPELINES MANAGER.STATIONS SUPERINTENDENT Work Phone: [facility] 07-16-2024 12:59-0500 Systolic blood pressure 120 mm[Hg] Christina Anthony PIPELINES MANAGER.STATIONS SUPERINTENDENT Work Phone: [facility] 06-18-2024 13:04-0500 Body mass index (BMI) [Ratio] 41.68 kg/m2 Christina Anthony PIPELINES MANAGER.STATIONS SUPERINTENDENT Work Phone: [facility] 06-18-2024 13:04-0500 Body weight 110.2 kg Christina Anthony PIPELINES MANAGER.STATIONS SUPERINTENDENT Work Phone: [facility] 06-18-2024 13:04-0500 Diastolic blood pressure 80 mm[Hg] Christina Anthony PIPELINES MANAGER.STATIONS SUPERINTENDENT Work Phone: [facility] 06-18-2024 13:04-0500 Heart rate 85 /min Christina Anthony PIPELINES MANAGER.STATIONS SUPERINTENDENT Work Phone: [facility] 06-18-2024 13:04-0500 Respiratory rate 16 /min Christina Anthony PIPELINES MANAGER.STATIONS SUPERINTENDENT Work Phone: [facility] 06-18-2024 13:04-0500 SaO2% (BldA) [Mass fraction] 95 % Christina Anthony PIPELINES MANAGER.STATIONS SUPERINTENDENT Work Phone: [facility] 06-18-2024 13:04-0500 Systolic blood pressure 120 mm[Hg] Christina Anthony PIPELINES MANAGER.STATIONS SUPERINTENDENT Work Phone: [facility] 05-26-2024 13:22-0500 Body mass index (BMI) [Ratio] 42.27 kg/m2 Yan Montaño MD Work Phone: [facility] 05-26-2024 13:22-0500 Body temperature 99.19 [degF] Yan Montaño MD Work Phone: [facility] 05-26-2024 13:22-0500 Body weight 111.77 kg Yan Montaño MD Work Phone: [facility] 05-26-2024 13:22-0500 Diastolic blood pressure 91 mm[Hg] Yan Montaño MD Work Phone: [facility] 05-26-2024 13:22-0500 Heart rate 93 /min Yan Montaño MD Work Phone: [facility] 05-26-2024 13:22-0500 SaO2% (BldA) [Mass fraction] 93 % Yan Montaño MD Work Phone: [facility] 05-26-2024 13:22-0500 Systolic blood pressure 160 mm[Hg] Yan Montaño MD Work Phone: [facility] 04-30-2024 11:14-0500 Body mass index (BMI) [Ratio] 42.17 kg/m2 Christina Anthony PIPELINES MANAGER.STATIONS SUPERINTENDENT Work Phone: [facility] 04-30-2024 11:14-0500 Body weight 111.49 kg Christina Anthony PIPELINES MANAGER.STATIONS SUPERINTENDENT Work Phone: [facility] 04-30-2024 11:14-0500 Diastolic blood pressure 78 mm[Hg] Christina Anthony PIPELINES MANAGER.STATIONS SUPERINTENDENT Work Phone: [facility] 04-30-2024 11:14-0500 Heart rate 93 /min Christina Anthony PIPELINES MANAGER.STATIONS SUPERINTENDENT Work Phone: [facility] 04-30-2024 11:14-0500 Respiratory rate 16 /min Christina Anthony PIPELINES MANAGER.STATIONS SUPERINTENDENT Work Phone: [facility] 04-30-2024 11:14-0500 SaO2% (BldA) [Mass fraction] 94 % Christina Anthony PIPELINES MANAGER.STATIONS SUPERINTENDENT Work Phone: [facility] 04-30-2024 11:14-0500 Systolic blood pressure 124 mm[Hg] Christina Anthony PIPELINES MANAGER.STATIONS SUPERINTENDENT Work Phone: [facility] 04-26-2024 10:23-0500 Body mass index (BMI) [Ratio] 41.75 kg/m2 Martín Winslow MD Work Phone: [facility] 04-26-2024 10:23-0500 Body weight 110.4 kg Martín Winslow MD Work Phone: [facility] 04-26-2024 10:23-0500 Diastolic blood pressure 78 mm[Hg] Martín Winslow MD Work Phone: [facility] 04-26-2024 10:23-0500 Heart rate 80 /min Martín Winslow MD Work Phone: [facility] 04-26-2024 10:23-0500 Respiratory rate 18 /min Martín Winslow MD Work Phone: [facility] 04-26-2024 10:23-0500 Systolic blood pressure 120 mm[Hg] Martín Winslow MD Work Phone: [facility] 02-25-2024 12:32-0400 Body height 162.6 cm Yan Montaño MD Work Phone: [facility] 02-25-2024 12:32-0400 Body mass index (BMI) [Ratio] 41.17 kg/m2 Yan Montaño MD Work Phone: [facility] 02-25-2024 12:32-0400 Body weight 108.86 kg Yan Montaño MD Work Phone: [facility] 02-25-2024 12:32-0400 Diastolic blood pressure 86 mm[Hg] Yan Montaño MD Work Phone: [facility] 02-25-2024 12:32-0400 Heart rate 78 /min Yan Montaño MD Work Phone: [facility] 02-25-2024 12:32-0400 Respiratory rate 18 /min Yan Montaño MD Work Phone: [facility] 02-25-2024 12:32-0400 SaO2% (BldA) [Mass fraction] 96 % Yan Montaño MD Work Phone: [facility] 02-25-2024 12:32-0400 Systolic blood pressure 130 mm[Hg] Yan Montaño MD Work Phone: [facility] 02-25-2024 11:40-0400 Body height 162.6 cm Pul Ws Work Phone: [facility] 02-25-2024 11:40-0400 Body mass index (BMI) [Ratio] 41.18 kg/m2 Pulm Wstr Work Phone: [facility] 02-25-2024 11:40-0400 Body weight 108.86 kg Pulm Wstr Work Phone: [facility] 01-23-2024 16:47-0400 Body mass index (BMI) [Ratio] 40.32 kg/m2 Gray Quintana DO Work Phone: [facility] 01-23-2024 16:47-0400 Body temperature 98.8 [degF] Gray Quintana DO Work Phone: [facility] 01-23-2024 16:47-0400 Body weight 109.77 kg Gray Quintana DO Work Phone: [facility] 01-23-2024 16:47-0400 Diastolic blood pressure 70 mm[Hg] Gray Quintana DO Work Phone: [facility] 01-23-2024 16:47-0400 Heart rate 80 /min Gray Quintana DO Work Phone: [facility] 01-23-2024 16:47-0400 Respiratory rate 28 /min Gray Quintana DO Work Phone: [facility] 01-23-2024 16:47-0400 Systolic blood pressure 124 mm[Hg] Gray Quintana DO Work Phone: [facility] 12-03-2023 15:16-0400 Diastolic blood pressure 78 mm[Hg] Carolyn Hadread PIPELINES MANAGER.STATIONS SUPERINTENDENT Work Phone: [facility] 12-03-2023 15:16-0400 Heart rate 90 /min Carolyn Haagen PIPELINES MANAGER.STATIONS SUPERINTENDENT Work Phone: [facility] 12-03-2023 15:16-0400 Respiratory rate 16 /min Carolyn Ramirez PIPELINES MANAGER.STATIONS SUPERINTENDENT Work Phone: [facility] 12-03-2023 15:16-0400 SaO2% (BldA) [Mass fraction] 94 % Carolyn Ramirez PIPELINES MANAGER.STATIONS SUPERINTENDENT Work Phone: [facility] 12-03-2023 15:16-0400 Systolic blood pressure 110 mm[Hg] Carolyn Haagen PIPELINES MANAGER.STATIONS SUPERINTENDENT Work Phone: [facility] 11-28-2023 15:23-0400 Diastolic blood pressure 70 mm[Hg] Carolyn Haagen PIPELINES MANAGER.STATIONS SUPERINTENDENT Work Phone: [facility] 11-28-2023 15:23-0400 Heart rate 91 /min Carolyn Haagen PIPELINES MANAGER.STATIONS SUPERINTENDENT Work Phone: [facility] 11-28-2023 15:23-0400 Respiratory rate 16 /min Carolyn Haagen PIPELINES MANAGER.STATIONS SUPERINTENDENT Work Phone: [facility] 11-28-2023 15:23-0400 SaO2% (BldA) [Mass fraction] 94 % Carolyn Haagen PIPELINES MANAGER.STATIONS SUPERINTENDENT Work Phone: [facility] 11-28-2023 15:23-0400 Systolic blood pressure 112 mm[Hg] Carolyn Haagen PIPELINES MANAGER.STATIONS SUPERINTENDENT Work Phone: [facility] 10-17-2023 10:33-0400 Body mass index (BMI) [Ratio] 39.99 kg/m2 Gray Quintana DO Work Phone: [facility] 10-17-2023 10:33-0400 Body temperature 97 [degF] Gray Quintana DO Work Phone: [facility] 10-17-2023 10:33-0400 Body weight 108.86 kg Gray Quintana DO Work Phone: [facility] 10-17-2023 10:33-0400 Diastolic blood pressure 70 mm[Hg] Gray Quintana DO Work Phone: [facility] 10-17-2023 10:33-0400 Heart rate 80 /min Gray Quintana DO Work Phone: [facility] 10-17-2023 10:33-0400 Respiratory rate 20 /min Gray Quintana DO Work Phone: [facility] 10-17-2023 10:33-0400 Systolic blood pressure 120 mm[Hg] Gray Quintana DO Work Phone: [facility] 10-12-2023 11:31-0400 Body mass index (BMI) [Ratio] 40.35 kg/m2 Amelia Dania PIPELINES MANAGER.STATIONS SUPERINTENDENT Work Phone: [facility] 10-12-2023 11:31-0400 Body weight 109.86 kg Amelia Dania PIPELINES MANAGER.STATIONS SUPERINTENDENT Work Phone: [facility] 10-12-2023 11:31-0400 Diastolic blood pressure 86 mm[Hg] Amelia Dania PIPELINES MANAGER.STATIONS SUPERINTENDENT Work Phone: [facility] 10-12-2023 11:31-0400 Heart rate 86 /min Amelia Dania PIPELINES MANAGER.STATIONS SUPERINTENDENT Work Phone: [facility] 10-12-2023 11:31-0400 Respiratory rate 20 /min Amelia Dania PIPELINES MANAGER.STATIONS SUPERINTENDENT Work Phone: [facility] 10-12-2023 11:31-0400 SaO2% (BldA) [Mass fraction] 96 % Amelia Dania PIPELINES MANAGER.STATIONS SUPERINTENDENT Work Phone: [facility] 10-12-2023 11:31-0400 Systolic blood pressure 122 mm[Hg] Amelia Dania PIPELINES MANAGER.STATIONS SUPERINTENDENT Work Phone: [facility] 09-10-2023 12:26-0400 Body weight 110.04 kg Amelia Dania PIPELINES MANAGER.STATIONS SUPERINTENDENT Work Phone: [facility] 09-10-2023 12:26-0400 Diastolic blood pressure 82 mm[Hg] Amelia Dania PIPELINES MANAGER.STATIONS SUPERINTENDENT Work Phone: [facility] 09-10-2023 12:26-0400 Heart rate 88 /min Amelia Dania PIPELINES MANAGER.STATIONS SUPERINTENDENT Work Phone: [facility] 09-10-2023 12:26-0400 Respiratory rate 16 /min Amelia Dania PIPELINES MANAGER.STATIONS SUPERINTENDENT Work Phone: [facility] 09-10-2023 12:26-0400 SaO2% (BldA) [Mass fraction] 95 % Amelia Dania PIPELINES MANAGER.STATIONS SUPERINTENDENT Work Phone: [facility] 09-10-2023 12:26-0400 Systolic blood pressure 118 mm[Hg] Amelia Dania PIPELINES MANAGER.STATIONS SUPERINTENDENT Work Phone: [facility] 09-06-2023 11:25-0400 Body weight 109.14 kg Amelia Dania PIPELINES MANAGER.STATIONS SUPERINTENDENT Work Phone: [facility] 09-06-2023 11:25-0400 Diastolic blood pressure 72 mm[Hg] Amelia Dania PIPELINES MANAGER.STATIONS SUPERINTENDENT Work Phone: [facility] 09-06-2023 11:25-0400 Heart rate 82 /min Amelia Dania PIPELINES MANAGER.STATIONS SUPERINTENDENT Work Phone: [facility] 09-06-2023 11:25-0400 Respiratory rate 20 /min Amelia Dania PIPELINES MANAGER.STATIONS SUPERINTENDENT Work Phone: [facility] 09-06-2023 11:25-0400 SaO2% (BldA) [Mass fraction] 95 % Amelia Dania PIPELINES MANAGER.STATIONS SUPERINTENDENT Work Phone: [facility] 09-06-2023 11:25-0400 Systolic blood pressure 108 mm[Hg] Amelia Dania PIPELINES MANAGER.STATIONS SUPERINTENDENT Work Phone: [facility] 08-07-2023 11:11-0400 Body weight 109.05 kg Amelia Dania PIPELINES MANAGER.STATIONS SUPERINTENDENT Work Phone: [facility] 08-07-2023 11:11-0400 Diastolic blood pressure 84 mm[Hg] Amelia Dania PIPELINES MANAGER.STATIONS SUPERINTENDENT Work Phone: [facility] 08-07-2023 11:11-0400 Heart rate 77 /min Amelia Dania PIPELINES MANAGER.STATIONS SUPERINTENDENT Work Phone: [facility] 08-07-2023 11:11-0400 Respiratory rate 16 /min Ameliapolly Trotter PIPELINES MANAGER.STATIONS SUPERINTENDENT Work Phone: [facility] 08-07-2023 11:11-0400 SaO2% (BldA) [Mass fraction] 100 % Amelia Trotter PIPELINES MANAGER.STATIONS SUPERINTENDENT Work Phone: [facility] 08-07-2023 11:11-0400 Systolic blood pressure 126 mm[Hg] Amelia Dania PIPELINES MANAGER.STATIONS SUPERINTENDENT Work Phone: [facility] 07-09-2023 13:14-0500 Body temperature 97.7 [degF] Gray Quintana DO Work Phone: [facility] 07-09-2023 13:14-0500 Body weight 109.77 kg Gray Quintana DO Work Phone: [facility] 07-09-2023 13:14-0500 Diastolic blood pressure 70 mm[Hg] Gray Quintana DO Work Phone: [facility] 07-09-2023 13:14-0500 Heart rate 64 /min Gray Quintana DO Work Phone: [facility] 07-09-2023 13:14-0500 Respiratory rate 20 /min Gray Quintana DO Work Phone: [facility] 07-09-2023 13:14-0500 Systolic blood pressure 110 mm[Hg] Gray Quintana DO Work Phone: [facility] 04-23-2023 13:51-0500 Body height [address] [facility] 04-23-2023 13:51-0500 Body weight 101.[address] [facility] 04-06-2023 11:48-0500 Body temperature 97.7 [degF] Gray Quintana DO Work Phone: [facility] 04-06-2023 11:48-0500 Body weight 104.78 kg Gray Quintana DO Work Phone: [facility] 04-06-2023 11:48-0500 Diastolic blood pressure 64 mm[Hg] Gray Quintana DO Work Phone: [facility] 04-06-2023 11:48-0500 Heart rate 80 /min Gray Quintana DO Work Phone: [facility] 04-06-2023 11:48-0500 Respiratory rate 16 /min Gray Quintana DO Work Phone: [facility] 04-06-2023 11:48-0500 Systolic blood pressure 110 mm[Hg] Gray Quintana DO Work Phone: [facility] 03-23-2023 11:53-0400 Heart rate 80 /min [facility] 03-23-2023 11:53-0400 Respiratory rate 16 /min [facility] 03-23-2023 11:22-0400 Body temperature 98.3 [degF] [facility] 03-23-2023 11:22-0400 Diastolic blood pressure 80 mm[Hg] [facility] 03-23-2023 11:22-0400 SaO2% (BldA) [Mass fraction] 99 % [facility] 03-23-2023 11:22-0400 Systolic blood pressure 138 mm[Hg] [facility] 03-23-2023 11:00-0400 Body height 162.56 cm [facility] 03-23-2023 11:00-0400 Body mass index (BMI) [Ratio] 39.6 kg/m2 [facility] 03-23-2023 11:00-0400 Body weight 104.77 kg [facility] 03-12-2023 14:31-0400 Body height [address] [facility] 03-12-2023 14:31-0400 Body weight 105.[address] [facility] 01-22-2023 12:18-0400 Body height [address] [facility] 01-22-2023 12:18-0400 Body weight 104.[address] [facility] 01-16-2023 14:08-0400 Body weight 106.14 kg Carolyn Ramirez APRN.STATIONS SUPERINTENDENT Work Phone: [facility] 01-16-2023 14:08-0400 Diastolic blood pressure 74 mm[Hg] Carolyn Haagen PIPELINES MANAGER.STATIONS SUPERINTENDENT Work Phone: [facility] 01-16-2023 14:08-0400 Heart rate 80 /min Carolyn Haagen PIPELINES MANAGER.STATIONS SUPERINTENDENT Work Phone: [facility] 01-16-2023 14:08-0400 Respiratory rate 16 /min Carolyn Haagen PIPELINES MANAGER.STATIONS SUPERINTENDENT Work Phone: [facility] 01-16-2023 14:08-0400 SaO2% (BldA) [Mass fraction] 95 % Carolyn Haagen PIPELINES MANAGER.STATIONS SUPERINTENDENT Work Phone: [facility] 01-16-2023 14:08-0400 Systolic blood pressure 120 mm[Hg] Carolyn Haagen PIPELINES MANAGER.STATIONS SUPERINTENDENT Work Phone: [facility] 12-27-2022 13:54-0400 Body weight 106.14 kg Christina Anthony PIPELINES MANAGER.STATIONS SUPERINTENDENT Work Phone: [facility] 12-27-2022 13:54-0400 Diastolic blood pressure 72 mm[Hg] Christina Anthony PIPELINES MANAGER.STATIONS SUPERINTENDENT Work Phone: [facility] 12-27-2022 13:54-0400 Heart rate 80 /min Christina Anthony PIPELINES MANAGER.STATIONS SUPERINTENDENT Work Phone: [facility] 12-27-2022 13:54-0400 Respiratory rate 16 /min Christina Anthony PIPELINES MANAGER.STATIONS SUPERINTENDENT Work Phone: [facility] 12-27-2022 13:54-0400 Systolic blood pressure 118 mm[Hg] Christina Anthony PIPELINES MANAGER.STATIONS SUPERINTENDENT Work Phone: [facility] 11-14-2022 13:17-0400 Body weight 105.51 kg Andres Srinivasan MD Work Phone: [facility] 11-14-2022 13:17-0400 Diastolic blood pressure 82 mm[Hg] Andres Srinivasan MD Work Phone: [facility] 11-14-2022 13:17-0400 Heart rate 79 /min nAdres Srinivasan MD Work Phone: [facility] 11-14-2022 13:17-0400 Respiratory rate 18 /min Andres Srinivasan MD Work Phone: [facility] 11-14-2022 13:17-0400 SaO2% (BldA) [Mass fraction] 97 % Andres Srinivasan MD Work Phone: [facility] 11-14-2022 13:17-0400 Systolic blood pressure 126 mm[Hg] Andres Srinivasan MD Work Phone: [facility] 08-23-2022 10:27-0400 Body temperature 98.1 [degF] Gray Quintana DO Work Phone: [facility] 08-23-2022 10:27-0400 Body weight 106.14 kg Gray Quintana DO Work Phone: [facility] 08-23-2022 10:27-0400 Diastolic blood pressure 80 mm[Hg] Gray Quintana DO Work Phone: [facility] 08-23-2022 10:27-0400 Heart rate 80 /min Gray Quintana DO Work Phone: [facility] 08-23-2022 10:27-0400 Respiratory rate 20 /min Gray Quintana DO Work Phone: [facility] 08-23-2022 10:27-0400 Systolic blood pressure 124 mm[Hg] Gray Quintana DO Work Phone: [facility] 07-17-2022 09:42-0500 Body height 162.56 cm SUPERVISOR YARDDain Haider NP Work Phone: [facility] 07-17-2022 09:42-0500 Body mass index (BMI) [Ratio] 40.1 kg/m2 SELENA Haider NP Work Phone: [facility] 07-17-2022 09:42-0500 Body temperature 97.3 [degF] SELENA Mejia Haider SUPERVISOR YARD Work Phone: [facility] 07-17-2022 09:42-0500 Body weight 106.14 kg SUPERVISOR YARD-C Jackie Singletoners SUPERVISOR YARD Work Phone: [facility] 07-17-2022 09:42-0500 Diastolic blood pressure 86 mm[Hg] SUPERVISOR YARD-C Jackie Haider SUPERVISOR YARD Work Phone: [facility] 07-17-2022 09:42-0500 Heart rate 82 /min SUPERVISOR YARD-C Jackie Haider SUPERVISOR YARD Work Phone: [facility] 07-17-2022 09:42-0500 Respiratory rate 18 /min SUPERVISOR YARD-C Jackie Haider SUPERVISOR YARD Work Phone: [facility] 07-17-2022 09:42-0500 SaO2% (BldA) [Mass fraction] 97 % SUPERVISOR YARD-C Jackie Haider SUPERVISOR YARD Work Phone: [facility] 07-17-2022 09:42-0500 Systolic blood pressure 146 mm[Hg] SUPERVISOR YARD-C Jackie Singletoners SUPERVISOR YARD Work Phone: [facility] 07-03-2022 11:13-0500 Body height 165 cm Christina Anthony PIPELINES MANAGER.STATIONS SUPERINTENDENT Work Phone: [facility] 07-03-2022 11:13-0500 Body weight 105.96 kg Christina Anthony PIPELINES MANAGER.STATIONS SUPERINTENDENT Work Phone: [facility] 07-03-2022 11:13-0500 Diastolic blood pressure 80 mm[Hg] Christina Anthony PIPELINES MANAGER.STATIONS SUPERINTENDENT Work Phone: [facility] 07-03-2022 11:13-0500 Heart rate 77 /min Christina Anthony PIPELINES MANAGER.STATIONS SUPERINTENDENT Work Phone: [facility] 07-03-2022 11:13-0500 Respiratory rate 14 /min Christina Anthony PIPELINES MANAGER.STATIONS SUPERINTENDENT Work Phone: [facility] 07-03-2022 11:13-0500 SaO2% (BldA) [Mass fraction] 94 % Chrsitina Anthony PIPELINES MANAGER.STATIONS SUPERINTENDENT Work Phone: [facility] 07-03-2022 11:13-0500 Systolic blood pressure 140 mm[Hg] Christina Anthony PIPELINES MANAGER.STATIONS SUPERINTENDENT Work Phone: [facility] 06-13-2022 11:01-0500 Body mass index (BMI) [Ratio] 39.8 kg/m2 SUPERVISOR YARD-C Jackie Haider SUPERVISOR YARD Work Phone: [facility] 06-13-2022 11:01-0500 Body temperature 95.7 [degF] SUPERVISOR YARD-C Jackie Haider SUPERVISOR YARD Work Phone: [facility] 06-13-2022 11:01-0500 Body weight 105.29 kg SUPERVISOR YARD-C Jackie Haider SUPERVISOR YARD Work Phone: [facility] 06-13-2022 11:01-0500 Diastolic blood pressure 84 mm[Hg] SUPERVISOR YARD-C Jackie Haider SUPERVISOR YARD Work Phone: [facility] 06-13-2022 11:01-0500 Heart rate 85 /min SUPERVISOR YARD-C Jackie Haider SUPERVISOR YARD Work Phone: [facility] 06-13-2022 11:01-0500 Respiratory rate 20 /min SUPERVISOR YARD-C Jackie Haider SUPERVISOR YARD Work Phone: [facility] 06-13-2022 11:01-0500 SaO2% (BldA) [Mass fraction] 95 % SUPERVISOR YARD-C Jackie Haider SUPERVISOR YARD Work Phone: [facility] 06-13-2022 11:01-0500 Systolic blood pressure 136 mm[Hg] SUPERVISOR YARD-C Jackie Haider SUPERVISOR YARD Work Phone: [facility] 01-02-2022 07:15-0400 Body height 162.56 cm SUPERVISOR YARD-C Jackie Haider SUPERVISOR YARD Work Phone: [facility] Work Phone: 01-02-2022 07:15-0400 Body mass index (BMI) [Ratio] 37 kg/m2 SUPERVISOR YARD-C Jackie aHider SUPERVISOR YARD Work Phone: [facility] Work Phone: 01-02-2022 07:15-0400 Body temperature 98.6 [degF] SUPERVISOR YARD-C Jackie Haider SUPERVISOR YARD Work Phone: [facility] Work Phone: 01-02-2022 07:15-0400 Body weight 97.97 kg SUPERVISOR YARD-C Jackie Haider SUPERVISOR YARD Work Phone: [facility] Work Phone: 01-02-2022 07:15-0400 Diastolic blood pressure 80 mm[Hg] SUPERVISOR YARD-C Jackie Haider SUPERVISOR YARD Work Phone: [facility] Work Phone: 01-02-2022 07:15-0400 Heart rate 70 /min SUPERVISOR YARD-C Jackie Haider SUPERVISOR YARD Work Phone: [facility] Work Phone: 01-02-2022 07:15-0400 Respiratory rate 17 /min SUPERVISOR YARD-C Jackie Haider SUPERVISOR YARD Work Phone: [facility] Work Phone: 01-02-2022 07:15-0400 SaO2% (BldA) [Mass fraction] 95 % SUPERVISOR YARD-C Jackie Haider SUPERVISOR YARD Work Phone: [facility] Work Phone: 01-02-2022 07:15-0400 Systolic blood pressure 136 mm[Hg] SUPERVISOR YARD-C Jackie Haider SUPERVISOR YARD Work Phone: [facility] Work Phone: 12-15-2021 06:30-0400 Body height 162.56 cm SUPERVISOR YARD-C Jackie Haider SUPERVISOR YARD Work Phone: [facility] Work Phone: 12-15-2021 06:30-0400 Body mass index (BMI) [Ratio] 37.2 kg/m2 SUPERVISOR YARD-C Jackie Haider SUPERVISOR YARD Work Phone: [facility] Work Phone: 12-15-2021 06:30-0400 Body temperature 97.8 [degF] SUPERVISOR YARD-C Jackie Haider SUPERVISOR YARD Work Phone: [facility] Work Phone: 12-15-2021 06:30-0400 Body weight 98.42 kg SUPERVISOR YARD-C Jackie Haider SUPERVISOR YARD Work Phone: [facility] Work Phone: 12-15-2021 06:30-0400 Diastolic blood pressure 79 mm[Hg] SUPERVISOR YARD-C Jackie Haider SUPERVISOR YARD Work Phone: [facility] Work Phone: 12-15-2021 06:30-0400 Heart rate 72 /min SUPERVISOR YARD-C Jackie Haider SUPERVISOR YARD Work Phone: [facility] Work Phone: 12-15-2021 06:30-0400 Respiratory rate 17 /min SUPERVISOR YARD-C Jackie Haider SUPERVISOR YARD Work Phone: [facility] Work Phone: 12-15-2021 06:30-0400 SaO2% (BldA) [Mass fraction] 96 % SUPERVISOR YARD-C Jackie Haider SUPERVISOR YARD Work Phone: [facility] Work Phone: 12-15-2021 06:30-0400 Systolic blood pressure 116 mm[Hg] SUPERVISOR YARD-C Jackie Haider SUPERVISOR YARD Work Phone: [facility] Work Phone: 06-14-2021 07:45-0500 Body height 162.56 cm SUPERVISOR YARD-C Jackie Haider SUPERVISOR YARD Work Phone: [facility] Work Phone: 06-14-2021 07:45-0500 Body mass index (BMI) [Ratio] 39.1 kg/m2 SUPERVISOR YARD-C Jackie Haider SUPERVISOR YARD Work Phone: [facility] Work Phone: 06-14-2021 07:45-0500 Body temperature 95 [degF] SUPERVISOR YARD-C Jackie Haider SUPERVISOR YARD Work Phone: [facility] Work Phone: 06-14-2021 07:45-0500 Body weight 103.41 kg SUPERVISOR YARD-C Jackie Haider SUPERVISOR YARD Work Phone: [facility] Work Phone: 06-14-2021 07:45-0500 Diastolic blood pressure 76 mm[Hg] SUPERVISOR YARD-C Jackie Haider SUPERVISOR YARD Work Phone: [facility] Work Phone: 06-14-2021 07:45-0500 Heart rate 85 /min SUPERVISOR YARD-C Jackie Haider SUPERVISOR YARD Work Phone: [facility] Work Phone: 06-14-2021 07:45-0500 Respiratory rate 18 /min SUPERVISOR YARD-C Jackie Haider SUPERVISOR YARD Work Phone: [facility] Work Phone: 06-14-2021 07:45-0500 SaO2% (BldA) [Mass fraction] 99 % SUPERVISOR YARD-C Jackie Haider SUPERVISOR YARD Work Phone: [facility] Work Phone: 06-14-2021 07:45-0500 Systolic blood pressure 120 mm[Hg] SUPERVISOR YARD-C Jackie Haider SUPERVISOR YARD Work Phone: [facility] Work Phone: Encounters Encounter Date Encounter Type Care Provider Facility Start: 01-22-2025 End: 01-22-2025 Telephone encounter Cherelle Mo MD Work Phone: Pain Management Comment on above: Cancel Injection Pro cedure Start: 01-20-2025 End: 01-20-2025 ambulatory Marilou Everett SPIRAL MACHINE OPERATOR Work Phone: [facility] Comment on above: Neck pain (Primary D x) Start: 01-19-2025 End: 01-20-2025 Telephone encounter Gray Quintana DO Work Phone: [facility] [place] Comment on above: Patient Question Orders Start: 01-19-2025 End: 01-19-2025 Office outpatient visit 25 minutes Jean Carlos Barba Stephanie DON.STATIONS SUPERINTENDENT Work Phone: [facility] [place] Comment on above: Diverticulitis of si gmoid colon (Primary Dx); Hematochezia; Acute diarrhea; Nausea; Abdominal discomfort; Other ulcerative colitis without complication (HCC); Obesity, Class III, BMI >= 40 Start: 01-19-2025 End: 01-19-2025 ambulatory JEAN CARLOSMIO BARBA STEPHANIE Facility:[facility] Start: 01-17-2025 End: 01-17-2025 Telephone encounter Gray Quintana DO Work Phone: [facility] [place] Comment on above: Patient Question Start: 01-17-2025 End: 01-17-2025 Emergency department patient visit Dr. Gray Quintana DO Work Phone: -Emergency Department Work Phone: Start: 01-15-2025 End: 01-19-2025 Refill Gray Quintana DO Work Phone: [facility] Comment on above: Opened In Error Population Health Na vigation Outreach ([facility]O WORKBENC [facility] ) Patient Update Start: 01-15-2025 End: 01-15-2025 Emergency department patient visit Dr. Gray Quintana DO Work Phone: -Emergency Department Work Phone: Start: 01-14-2025 End: 01-14-2025 Follow-up encounter Madison Turner APRN.STATIONS SUPERINTENDENT Work Phone: [facility] [place] Comment on above: Results Start: 01-13-2025 End: 01-13-2025 ambulatory Marilou Everett SPIRAL MACHINE OPERATOR Work Phone: [place] [facility] [facility] Comment on above: Neck pain (Primary D x) Start: 01-12-2025 End: 01-12-2025 Patient encounter procedure Madison Turner APRN.STATIONS SUPERINTENDENT Work Phone: [facility] Comment on above: UTI symptoms (Primar y Dx) Start: 01-12-2025 End: 01-12-2025 ambulatory Nurse Intm/Famp Triage [facility] Work Phone: Nurse Phone Triage Comment on above: urination symptoms Start: 01-06-2025 End: 01-06-2025 ambulatory Marilou Everett SPIRAL MACHINE OPERATOR Work Phone: [facility] Comment on above: Neck pain (Primary D x) Start: 12-30-2024 End: 01-05-2025 Follow-up encounter Yarely Tijerina APRN.CNP Work Phone: [facility] Start: 12-29-2024 End: 12-29-2024 Patient encounter procedure Merari Barker MA [facility] Comment on above: Population Health Na vigation Outreach ( [facility] ) Start: 12-29-2024 End: 12-29-2024 Telephone encounter Merari Barker MA [facility] [place] Comment on above: Patient Update; Resc hedule Injection Procedure Start: 12-29-2024 End: 12-29-2024 Office outpatient visit 15 minutes Yarely Tijerina APRN.CNP Work Phone: [facility] Comment on above: Dysuria (Primary Dx) ; Screening for depression; Encounter for screening examination for other mental health and behavioral disorders Start: 12-29-2024 End: 12-29-2024 ambulatory Merari Barker MA [facility] Start: 12-23-2024 End: 12-23-2024 ambulatory Jeffrey Hedrick PT [facility] Comment on above: Neck pain (Primary D x) Start: 12-16-2024 End: 12-16-2024 Follow-up encounter Vanessa Sanchez PA-C Work Phone: [facility] Start: 12-15-2024 End: 12-15-2024 Orders [...] Telephone encounter Gray Quintana DO Work Phone: [facility] Comment on above: Patient Request Start: 12-04-2024 ambulatory JASON FRANCOIS Facilit y:[facility] Start: 12-04-2024 End: 12-04-2024 Subsequent hospital visit by physician Pedro Pablo [facility] Rodriguez Work Phone: Radiology Comment on above: Neck pain [M54.2] Start: 12-04-2024 ambulatory JASON FRANCOIS Facilit y:[facility] Start: 12-04-2024 End: 12-04-2024 Patient encounter procedure Jason Francois PIPELINES MANAGER.STATIONS SUPERINTENDENT Work Phone: [facility] Comment on above: Left elbow pain (Etelvina stephen Dx); Neck pain; Mid back pain; Hypertension, essential Start: 12-04-2024 End: 12-04-2024 ambulatory JASON FRANCOIS Facility:[facility] Start: 12-03-2024 End: 12-03-2024 ambulatory Gray Quintana DO Work Phone: [facility] Comment on above: Neck Pain Start: 11-26-2024 End: 11-26-2024 Orders Only Cherelle Mo MD Work Phone: Pain Management Comment on above: Radiculopathy of lum bar region (Primary Dx); History of lumbar laminectomy for spinal cord decompression Start: 11-25-2024 End: 11-25-2024 ambulatory Merari Barker MA [facility] Start: 11-25-2024 End: 11-25-2024 Patient encounter procedure Merari Barker MA [facility] Comment on above: Population Health Na vigation Outreach ([facility] ) Start: 11-25-2024 End: 11-25-2024 Telephone encounter Cherelle Mo MD Work Phone: Pain Management Comment on above: Results (Lumbar MRI) Start: 11-20-2024 ambulatory CHERELLE MO Facility:[facility] Start: 11-20-2024 End: 11-20-2024 Subsequent hospital visit by physician M[facility] (I-Stat/1.5t) Work Phone: Radiology Comment on above: Radiculopathy of lum bar region [M54.16] Start: 11-18-2024 End: 11-18-2024 Office outpatient visit 15 minutes Dominick Hernandez APRN.STATIONS SUPERINTENDENT Work Phone: Pulmonary Medicine Comment on above: Asthma-COPD overlap syndrome (HCC) (Primary Dx); Nocturnal hypoxemia; Morbid obesity (HCC) Start: 11-18-2024 End: 11-18-2024 Patient encounter procedure Pulm Lab [facility] Work Phone: PULM LAB [facility] Start: 11-18-2024 End: 11-18-2024 ambulatory Pulm Lab [facility] Work Phone: [facility] Comment on above: Spirometry Start: 11-11-2024 ambulatory BRI Cary ity:[facility] Start: 11-11-2024 End: 11-11-2024 Subsequent hospital visit by physician M[facility] (I-Stat/1.5t) Work Phone: Radiology Comment on [...] Start: 11-05-2024 End: 11-05-2024 ambulatory CHERELLE MO Facility:[facility] Start: 10-30-2024 End: 10-30-2024 Patient encounter procedure [...] Start: 10-30-2024 End: 10-30-2024 ambulatory BRI MOELLER Facility:[facility] Start: 10-23-2024 End: 10-24-2024 Follow-up encounter Jean Carlos Jamesonmarcella Brown APRN.CNP Work Phone: [facility] [place] Start: 10-23-2024 ambulatory GRAY QUINTANA Facil ity:[facility] Start: 10-23-2024 End: 10-23-2024 Subsequent hospital visit by physician [facility] Work Phone: Nuclear Medicine Comment on above: Calculus of gallblad kayleigh without cholecystitis without obstruction [K80.20] Start: 10-22-2024 End: 10-22-2024 ambulatory Priscilla Flynn RN NURSE CLINICAL BIOSTATISTICIAN Start: 10-22-2024 End: 10-22-2024 Patient encounter procedure Priscilla Flynn RN NURSE CLINICAL BIOSTATISTICIAN Comment on above: Clinical Update Start: 10-08-2024 End: 10-09-2024 Follow-up encounter Gray Quintana DO Work Phone: Family [facility] Comment on above: xray and ultrasound results Start: 10-08-2024 End: 10-09-2024 Telephone encounter Gray Quintana DO Work Phone: Family [facility] Comment on above: Results Start: 10-06-2024 ambulatory GRAY PATHAKON Facil ity:[facility] Start: 10-06-2024 End: 10-06-2024 Subsequent hospital visit by physician [facility] Work Phone: Radiology Comment on above: Abdominal distension [R14.0] Start: 10-03-2024 End: 10-03-2024 ambulatory GRAY L QUINTANA Facility:[facility] Start: 10-03-2024 End: 10-03-2024 Subsequent hospital visit by physician Pedro Pablo [facility] Work Phone: Radiology Comment on above: Chronic midline low back pain with bilateral sciatica [M54.41, M54.42, G89.29] Start: 10-03-2024 End: 10-03-2024 Patient encounter procedure Gray Quintana DO Work Phone: [facility] Comment on above: Abdominal distension (Primary Dx); Chronic midline low back pain with bilateral sciatica; Spinal stenosis of lumbar region without neurogenic claudication; Bilateral leg edema; LUQ abdominal pain; Hypertension, essential; IFG (impaired fasting glucose) Start: 10-03-2024 End: 10-03-2024 ambulatory GRAY QUINTANA Facility:[facility] Start: 09-23-2024 End: 09-23-2024 Patient encounter procedure Williams Martinez MD Work Phone: Vascular Medicine Comment on above: Personal history of DVT (deep vein thrombosis) (Primary Dx); Venous (peripheral) insufficiency; BMI 40.0-44.9, adult ([facility]); Ulcerative colitis with complication, unspecified location ([facility]) Start: 09-23-2024 End: 09-23-2024 ambulatory CHRISTINA ANTHONY Facility:[facility] Start: 09-11-2024 End: 11-11-2024 Follow-up encounter Amelia Trotter APRN.CNP Work Phone: [facility] Comment on above: Results Medication Problem Start: 09-11-2024 End: 09-11-2024 ambulatory CHRISTINA ANTHONY Facility:[facility] Start: 09-11-2024 End: 09-11-2024 Office outpatient visit 15 minutes Amelia Trotter APRN.CNP Work Phone: [facility] Comment on above: Increased urinary fr equency (Primary Dx); Foul smelling urine Start: 09-11-2024 End: 09-11-2024 ambulatory AMELIA TROTTER Facility:[facility] Start: 08-15-2024 End: 08-15-2024 Telephone encounter Gray Quintana DO Work Phone: [facility] [place] Comment on above: Patient Question Start: 08-05-2024 End: 08-05-2024 Anticoagulant drug monitoring [facility] Work Phone: [facility] [place] Comment on above: Personal history of DVT (deep vein thrombosis) (Primary Dx) Start: 08-05-2024 End: 08-05-2024 ambulatory GRAY QUINTANA Facility:[facility] Start: 07-28-2024 ambulatory CHRISTINA OLSONYUSEF Facilit y:[facility] Start: 07-28-2024 End: 07-28-2024 Subsequent hospital visit by physician [facility] Comment on above: Acute deep vein thro mbosis (DVT) of proximal vein of right lower extremity (HCC) [I82.4Y1] Start: 07-28-2024 End: 07-28-2024 Follow-up encounter Christina Anthony APRN.STATIONS SUPERINTENDENT Work Phone: [facility] [place] Start: 07-28-2024 End: 07-28-2024 Telephone encounter Gray Quintana DO Work Phone: [facility] Comment on above: Future Appointment Start: 07-28-2024 End: 07-28-2024 ambulatory GRAY QUINTANA Facility:[facility] Start: 07-28-2024 End: 07-28-2024 Office outpatient visit 15 minutes Christina Anthony APRN.STATIONS SUPERINTENDENT Work Phone: [facility] [place] Comment on above: Pain of right lower extremity (Primary Dx); Acute deep vein thrombosis (DVT) of proximal vein of right lower extremity (HCC) Start: 07-25-2024 End: 07-25-2024 Follow-up encounter Christina Anthony APRN.STATIONS SUPERINTENDENT Work Phone: [facility] Start: 07-24-2024 End: 07-25-2024 Telephone encounter Gray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 09-23-2025 BP Controlled (<130/80) BP Controlle d (<130/80) [facility] Start: 09-11-2025 Annual PCP Team Loan Associate orestes Disease Visit Annual PCP Team Chronic Disease Visit [facility] Start: 09-11-2025 BP Controlled (<130/80) BP Controlle d (<130/80) [facility] Start: 09-11-2025 Creatinine measurement Serum Creatin ine [facility] Start: 07-28-2025 Annual PCP Team Loan Associate orestes Disease Visit Annual PCP Team Chronic Disease Visit [facility] Start: 07-24-2025 Creatinine measurement Serum Creatin ine [facility] Start: 07-16-2025 Annual PCP Team Loan Associate orestes Disease Visit Annual PCP Team Chronic Disease Visit [facility] Start: 07-08-2025 Creatinine measurement Serum Creatin ine [facility] Start: 07-03-2025 DIABETES SCREEN DIABETES SCREEN [facility] Start: 06-18-2025 Annual PCP Team Loan Associate orestes Disease Visit Annual PCP Team Chronic Disease Visit [facility] Start: 06-18-2025 Shingrix Vaccine (1 of 2) Shingrix Vaccine (1 of 2) [facility] Comment on above: Postponed from 04/01 (Declined at this time) Start: 05-19-2025 End: 05-19-2025 Patient encounter procedure Pulmonary Medicine Comment on above: 6 month f/u Start: 04-30-2025 Annual PCP Team Loan Associate orestes Disease Visit Annual PCP Team Chronic Disease Visit [facility] Start: 04-30-2025 BP Controlled (<130/80) BP Controlle d (<130/80) [facility] Start: 04-30-2025 Covid-19 Vaccine () Covid-19 Vaccine () [facility] Comment on above: Postponed from 01/26 (Declined at this time) Start: 04-26-2025 Annual PCP Team Loan Associate orestes Disease Visit Annual PCP Team Chronic Disease Visit [facility] Start: 04-26-2025 BP Controlled (<130/80) BP Controlle d (<130/80) [facility] Start: 04-22-2025 End: 04-22-2025 Patient encounter procedure 04/22/2025 2:00 PM EST Office Visit [facility] [address] [place] [address] Gray Quintana DO [address] [place] [address] medicare wellness exam [facility] Comment on above: medicare wellness ex am Start: 03-07-2025 Screening for malign ant neoplasm of breast Mammogram Screening [facility] Start: 02-03-2025 End: 02-03-2025 Admission to same day surgery center 02/03/2025 10:58 AM EDT - 02/03/2025 11:23 AM EDT Surgery [facility] [address] [place] [address] Cherelle Mo MD [address] [facility] [place] [address] LUMBAR EPIDURAL BLOCK W/INJECTION NON NEUROLYTIC W/IMAGE GUIDANCE [facility] Comment on above: LUMBAR EPIDURAL BLOC [...] physician 02/03/2025 10:58 AM EDT Hospital Encounter [facility] [address] [place] [address] Cherelle Mo MD [address] [facility] [place] [address] History of lumbar laminectomy for spinal cord decompression [Z98.890], Osteoarthritis of spine with radiculopathy, lumbar region [M47.26], Radiculopathy of lumbar region [M54.16] [facility] Comment on above: History of lumbar la minectomy for spinal cord decompression [Z98.890], Osteoarthritis of spine with radiculopathy, lumbar region [M47.26], Radiculopathy of lumbar region [M54.16] Start: 02-02-2025 End: 02-02-2025 Patient encounter procedure 02/02/2025 1:30 PM EDT Office Visit Urology [address] [address] Samreen Thornton PA-C [address] [facility] [address] [place] [address] consult for hematuria not referral in system from last visit with [facility] on 12/29/2024 Urology Comment on above: consult for hematuri a not referral in system from last visit with [facility] on 12/29/2024 Start: 01-27-2025 End: 01-27-2025 ambulatory 01/27/2025 11:30 AM EDT OT/PT/Speech Visit [facility] [address] [place] [address] Jeffrey Hedrick PT M54.2 (ICD-10-CM) - Neck pain Procedure [facility] Comment on above: M54.2 (ICD-10-CM) - Neck pain Procedure Start: 01-26-2025 Influenza vaccination [facility] Start: 01-22-2025 Annual PCP Team Loan Associate orestes Disease Visit Annual PCP Team Chronic Disease Visit [facility] Start: 01-22-2025 BP Controlled (<130/80) BP Controlle d (<130/80) [facility] Start: 01-22-2025 End: 01-22-2025 Admission to same day surgery center 01/22/2025 10:38 AM EDT - 01/22/2025 11:03 AM EDT Surgery [facility] [address] [place] [address] Cherelle Mo MD [address] [facility] [address] [place] [address] LUMBAR EPIDURAL BLOCK W/INJECTION NON NEUROLYTIC W/IMAGE GUIDANCE [facility] Comment on above: LUMBAR EPIDURAL BLOC [...] physician 01/22/2025 10:38 AM EDT Hospital Encounter [facility] [address] [place] [address] Cherelle Mo MD [address] [facility] [address] [place] [address] History of lumbar laminectomy for spinal cord decompression [Z98.890], Osteoarthritis of spine with radiculopathy, lumbar region [M47.26], Radiculopathy of lumbar region [M54.16] [facility] Comment on above: History of lumbar la minectomy for spinal cord decompression [Z98.890], Osteoarthritis of spine with radiculopathy, lumbar region [M47.26], Radiculopathy of lumbar region [M54.16] Start: 01-20-2025 End: 01-20-2025 ambulatory 01/20/2025 11:45 AM EDT OT/PT/Speech Visit [facility] [address] [place] [address] Marilou Everett, SPIRAL MACHINE OPERATOR [address] [place] [address] M54.2 (ICD-10-CM) - Neck pain Procedure [facility] Comment on above: M54.2 (ICD-10-CM) - Neck pain Procedure Start: 01-19-2025 End: 01-19-2025 Patient encounter procedure 01/19/2025 1:20 PM EDT Office Visit [facility] [place] [address] [place] [address] Jean Carlos Brown APRN.STATIONS SUPERINTENDENT [address] [place], [place] [id number] ER follow up visit - diverticulitis [facility] [place] Comment on above: ER follow up visit - diverticulitis Start: 01-17-2025 [facility] Start: 01-17-2025 Enteric precautions [facility] Start: 01-15-2025 [facility] Start: 01-15-2025 Abdomen/Pelvis W IV Cont ONLY Abdomen/Pelvis W IV Cont ONLY [facility] Start: 01-15-2025 CT Abdomen and Pelvi s W contrast IV [facility] Start: 01-13-2025 End: 01-13-2025 ambulatory 01/13/2025 11:45 AM EDT OT/PT/Speech Visit [facility] [address] [place] [address] Marguerite Marilou, SPIRAL MACHINE OPERATOR [address] [place] [address] M54.2 (ICD-10-CM) - Neck pain Procedure [facility] Comment on above: M54.2 (ICD-10-CM) - Neck pain Procedure Start: 01-06-2025 End: 01-06-2025 ambulatory 01/06/2025 3:30 PM EDT OT/PT/Speech Visit [facility] [address] [place] [address] [facility] SPIRAL MACHINE OPERATOR [address] [place] [address] M54.2 (ICD-10-CM) - Neck pain Procedure [facility] Comment on above: M54.2 (ICD-10-CM) - Neck pain Procedure Start: 01-01-2025 End: 01-01-2025 Admission to same day surgery center [facility] Comment on above: LUMBAR EPIDURAL BLOC K W/INJECTION NON NEUROLYTIC W/IMAGE GUIDANCE Start: 01-01-2025 End: 01-01-2025 Njx dx/ther sbst intrlmnr lmbr/sac w/img gdn [facility] OR Start: 01-01-2025 Subsequent hospital visit by physician [facility] Comment on above: History of lumbar la minectomy for spinal cord decompression [Z98.890], Osteoarthritis of spine with radiculopathy, lumbar region [M47.26], Radiculopathy of lumbar region [M54.16] Start: 12-30-2024 End: 12-30-2024 Patient encounter procedure 12/30/2024 1:00 PM EDT Office Visit [facility] [address] [place] [address] Gray Quintana DO [address] [place] [address] MEDICARE WELLNESS [facility] [place] Comment on above: MEDICARE WELLNESS Start: 12-23-2024 Screening for malign ant neoplasm of colon [facility] Start: 12-23-2024 End: 12-23-2024 ambulatory 12/23/2024 10:00 AM EDT OT/PT/Speech Visit [facility] [address] [place] [address] Jeffrey Hedrick PT Dx: Neck pain [M54.2] [facility] Comment on above: Dx: Neck pain [M54.2 ] Start: 12-16-2024 End: 12-16-2024 Admission to same day surgery center [facility] Comment on above: LUMBAR EPIDURAL BLOC K W/INJECTION NON NEUROLYTIC W/IMAGE GUIDANCE Start: 12-16-2024 End: 12-16-2024 Njx dx/ther sbst intrlmnr lmbr/sac w/img gdn [facility] OR Start: 12-16-2024 Subsequent hospital visit by physician [facility] Comment on above: Radiculopathy of lum bar region [M54.16], History of lumbar laminectomy for spinal cord decompression [Z98.890] Start: 12-16-2024 End: 12-16-2024 Admission to same day surgery center 12/16/2024 11:54 AM EDT - 12/16/2024 12:19 PM EDT Surgery [facility] [address] [place] [address] Cherelle Mo MD [address] [facility] [address] [place] [address] LUMBAR EPIDURAL BLOCK W/INJECTION NON NEUROLYTIC W/IMAGE GUIDANCE [facility] Comment on above: LUMBAR EPIDURAL BLOC K W/INJECTION NON NEUROLYTIC W/IMAGE GUIDANCE Start: 12-16-2024 End: 12-16-2024 Njx dx/ther sbst intrlmnr lmbr/sac w/img gdn LUMBAR EPIDURAL BLOCK W/INJECTION NON NEUROLYTIC W/IMAGE GUIDANCE Radiculopathy of lumbar region History of lumbar laminectomy for spinal cord decompression 12/16/2024 11:54 AM EDT ME OR Start: 12-16-2024 Subsequent hospital visit by physician 12/16/2024 11:54 AM EDT Hospital Encounter [facility] [address] [place] [address] Cherelle Mo MD [address] [facility] [address] [place] [address] Radiculopathy of lumbar region [M54.16], History of lumbar laminectomy for spinal cord decompression [Z98.890] [facility] Comment on above: Radiculopathy of lum bar region [M54.16], History of lumbar laminectomy for spinal cord decompression [Z98.890] Start: 12-04-2024 End: 12-04-2024 Patient encounter procedure 12/04/2024 9:00 AM EDT Office Visit [facility] [address] [place] [address] [phone] Jason Francois APRN.STATIONS SUPERINTENDENT [address] [place], [place] [id number] Neck Pain Family [facility] Comment on above: Neck Pain Start: 12-02-2024 Annual PCP Team Loan Associate orestes Disease Visit Annual PCP Team Chronic Disease Visit [facility] Start: 12-02-2024 BP Controlled (<130/80) BP Controlle d (<130/80) [facility] Start: 12-02-2024 Creatinine measurement Serum Creatin ine [facility] Start: 11-27-2024 Annual PCP Team Loan Associate orestes Disease Visit Annual PCP Team Chronic Disease Visit [facility] Start: 11-27-2024 BP Controlled (<130/80) BP Controlle d (<130/80) [facility] Start: 11-24-2024 Influenza vaccination Influenza Vacc ine (#1) [facility] Comment on above: Postponed from 01/26 (Declined at this time) Start: 11-20-2024 End: 11-20-2024 Patient encounter procedure 11/20/2024 1:00 PM EDT Appointment Radiology [address] [place] [address] Radiculopathy of lumbar region [M54.16] Radiology Comment on above: Radiculopathy of lum bar region [M54.16] Start: 11-18-2024 End: 11-18-2024 Patient encounter procedure Pulmonary Medicine Comment on above: 6 month f/u Start: 11-18-2024 End: 11-18-2024 ambulatory 11/18/2024 11:15 AM EDT Procedure PULM LAB [facility] [address] [place] [address] Wstr, Pulm Lab [facility] [address] [place] [address] Mild intermittent asthma without complication [J45.20] PULM LAB [facility] Comment on above: Mild intermittent as thma without complication [J45.20] Start: 11-11-2024 End: 11-11-2024 Patient encounter procedure Radiology Comment on above: Calculus of gallblad kayleigh without cholecystitis without obstruction [K80.20] Start: 11-05-2024 End: 11-05-2024 Patient encounter procedure 11/05/2024 2:00 PM EDT Office Visit Pain Management [address] [address] Cherelle Mo MD [address] [facility] [place] [address] Osteoarthritis of spine with radiculopathy, lumbar region [M47.26] Pain Management Comment on above: Osteoarthritis of sp ine with radiculopathy, lumbar region [M47.26] Start: 10-30-2024 End: 10-30-2024 Patient encounter procedure 10/30/2024 1:30 PM EDT Office Visit General Surgery [address] [place] [address] Bri Moeller MD [address] [place] [address] Calculus of gallbladder without cholecystitis without obstruction [K80.20]; Nausea [R11.0] General Surgery Comment on above: Calculus of gallblad kayleigh without cholecystitis without obstruction [K80.20]; Nausea [R11.0] Start: 10-23-2024 End: 10-23-2024 Patient encounter procedure 10/23/2024 10:00 AM EDT Appointment Nuclear Medicine [address] [place] [address] Calculus of gallbladder without cholecystitis without obstruction [K80.20]; Nausea [R11.0] Nuclear Medicine Comment on above: Calculus of gallblad kayleigh without cholecystitis without obstruction [K80.20]; Nausea [R11.0] Start: 10-16-2024 Annual PCP Team Loan Associate orestes Disease Visit Annual PCP Team Chronic Disease Visit [facility] Start: 10-16-2024 Anxiety Screening Anxiety Screening [facility] Start: 10-16-2024 BP Controlled (<130/80) BP Controlle d (<130/80) [facility] Start: 10-16-2024 Depression Screening Depression Scre ening [facility] Start: 10-11-2024 Annual PCP Team Loan Associate orestes Disease Visit Annual PCP Team Chronic Disease Visit [facility] Start: 10-06-2024 End: 10-06-2024 Patient encounter procedure Radiology Comment on above: Abdominal distension [R14.0] Spoke to pt, confirm ed appt and prep. jk Start: 10-03-2024 End: 01-02-2025 CBC W Auto Differential panel - Blood [facility] Comment on above: Expected: 10/03/2024 , Expires: 01/02/2025 Start: 10-03-2024 End: 01-02-2025 Comprehensive metabolic 2000 panel - Serum or Plasma [facility] Comment on above: Expected: 10/03/2024 , Expires: 01/02/2025 Start: 10-03-2024 End: 01-02-2025 Lipase [Enzymatic activity/volume] in Serum or Plasma [facility] Comment on above: Expected: 10/03/2024 , Expires: 01/02/2025 Start: 10-03-2024 End: 01-02-2025 Microalbumin/Creatinine [Mass Ratio] in Urine ALBUMIN/CREATININE RATIO, URINE Lab Routine Abdominal distension Bilateral leg edema LUQ abdominal pain Expected: 10/03/2024, Expires: 01/02/2025 [facility] Comment on above: Expected: 10/03/2024 , Expires: 01/02/2025 Start: 10-03-2024 End: 01-02-2025 Urinalysis complete panel - Urine URINALYSIS, WITH MICROSCOPIC Lab Routine Abdominal distension Bilateral leg edema LUQ abdominal pain Expected: 10/03/2024, Expires: 01/02/2025 [facility] Comment on above: Expected: 10/03/2024 , Expires: 01/02/2025 Start: 09-23-2024 End: 09-23-2024 Patient encounter procedure 09/23/2024 1:00 PM EDT Office Visit Vascular Medicine [id number] [place] [address] Williams Cabrera MD [address] [place] [address] Acute deep vein thrombosis (DVT) of proximal vein of right lower extremity (HCC). Vascular Medicine Comment on above: Acute deep vein thro mbosis (DVT) of proximal vein of right lower extremity (HCC). Start: 09-09-2024 Annual PCP Team Loan Associate orestes Disease Visit Annual PCP Team Chronic Disease Visit [facility] Start: 09-05-2024 Annual PCP Team Loan Associate orestes Disease Visit Annual PCP Team Chronic Disease Visit [facility] Start: 09-05-2024 BP Controlled (<130/80) BP Controlle d (<130/80) [facility] Start: 09-05-2024 Creatinine measurement Serum Creatin ine [facility] Start: 08-23-2024 Annual PCP Team Loan Associate orestes Disease Visit Annual PCP Team Chronic Disease Visit [facility] Start: 08-23-2024 BP Controlled (<130/80) BP Controlle d (<130/80) [facility] Start: 08-23-2024 RSV Vaccine (1 - 1-d ose 60+ series) RSV Vaccine (1 - 1-dose 60+ series) [facility] Comment on above: Postponed from 04/01 (Declined at this time) Start: 08-23-2024 RSV Vaccine (1 - Ris k 60-74 years 1-dose series) RSV Vaccine (1 - Risk 60-74 years 1-dose series) [facility] Comment on above: Postponed from 04/01 (Declined at this time) Start: 08-19-2024 End: 08-19-2024 Anticoagulant drug monitoring 08/19/2024 11:15 AM EDT Anticoagulation Visit [facility] [place] [address] [place] [address] [facility] [place] [address] [place] [address] inr [facility] [place] Comment on above: inr Start: 08-06-2024 Annual PCP Team Loan Associate orestes Disease Visit Annual PCP Team Chronic Disease Visit [facility] Start: 08-06-2024 Creatinine measurement Serum Creatin ine [facility] Start: 07-31-2024 End: 07-31-2024 Anticoagulant drug monitoring 07/31/2024 11:30 AM EST Anticoagulation Visit [facility] [address] [place] [address] [facility] [place] [address] [place] [address] inr Coumadin [facility] Comment on above: inr Start: 07-30-2024 Annual PCP Team Loan Associate orestes Disease Visit Annual PCP Team Chronic Disease Visit [facility] Start: 07-30-2024 Creatinine measurement Serum Creatin ine [facility] Start: 07-24-2024 End: 07-24-2024 Anticoagulant drug monitoring 07/24/2024 8:00 AM EST Anticoagulation Visit [facility] [place] [address] [place] [address] [place], [facility] [place] [address] [place] [address] Acute deep vein thrombosis (DVT) of proximal vein of right lower extremity (HCC)... [facility] [place] Comment on above: Acute deep vein thro mbosis (DVT) of proximal vein of right lower extremity (HCC)... Start: 07-16-2024 End: 10-15-2024 CBC W Auto Differential panel - Blood COMPLETE BLOOD COUNT AND DIFFERENTIAL Lab Routine Hypertension, essential Expected: 07/16/2024, Expires: 10/15/2024 [facility] Comment on above: Expected: 07/16/2024 , Expires: 10/15/2024 Start: 07-16-2024 End: 10-15-2024 Comprehensive metabolic 2000 panel - Serum or Plasma COMPREHENSIVE METABOLIC PANEL Lab Routine Hypertension, essential Expected: 07/16/2024, Expires: 10/15/2024 [facility] Comment on above: Expected: 07/16/2024 , Expires: 10/15/2024 Start: 07-16-2024 End: 10-15-2024 Lipid 1996 panel - Serum or Plasma LIPID PANEL BASIC Lab Routine Screening for cholesterol level Expected: 07/16/2024, Expires: 10/15/2024 [facility] Work Phone: Comment on above: Expected: 07/16/2024 , Expires: 10/15/2024 Start: 07-16-2024 End: 10-15-2024 PT panel - Platelet poor plasma by Coagulation assay PROTHROMBIN TIME Lab Routine Acute deep vein thrombosis (DVT) of proximal vein of right lower extremity (HCC) Expected: 07/16/2024, Expires: 10/15/2024 [facility] Comment on above: Expected: 07/16/2024 , Expires: 10/15/2024 Start: 07-16-2024 End: 07-16-2024 Patient encounter procedure 07/16/2024 1:00 PM EST Office Visit Family Medicine [facility] [address] [place], [place] [id number] Christina Anthony, PIPELINES MANAGER.STATIONS SUPERINTENDENT [address] [place], [place] [phone] 4 weeks fo b/p check [facility] [place] Comment on above: 4 weeks fo b/p check Start: 07-09-2024 Annual PCP Team Loan Associate orestes Disease Visit Annual PCP Team Chronic Disease Visit [facility] Start: 07-09-2024 BP Controlled (<130/80) BP Controlle d (<130/80) [facility] Start: 07-09-2024 Covid-19 Vaccine (#1) Covid-19 Vacci ne (#1) [facility] Comment on above: Postponed from 09/29 (Declined at this time) Start: 07-09-2024 Covid-19 Vaccine () Covid-19 Vaccine () [facility] Comment on above: Postponed from 01/26 (Declined at this time) Start: 07-09-2024 Creatinine measurement Serum Creatin ine [facility] Start: 06-30-2024 End: 06-30-2024 Patient encounter procedure 06/30/2024 11:00 AM EST Office Visit Family Medicine [facility] [address] [place], [place] [phone] Christina Anthony, PIPELINES MANAGER.STATIONS SUPERINTENDENT [address] [place], [place] [phone] 4 weeks fo b/p check Family [facility] [place] Comment on above: 4 weeks fo b/p check Start: 06-18-2024 End: 09-17-2024 CBC W Auto Differential panel - Blood COMPLETE BLOOD COUNT AND DIFFERENTIAL Lab Routine Hypertension, essential Expected: 06/18/2024, Expires: 09/17/2024 [facility] Comment on above: Expected: 06/18/2024 , Expires: 09/17/2024 Start: 06-18-2024 End: 09-17-2024 Comprehensive metabolic 2000 panel - Serum or Plasma COMPREHENSIVE METABOLIC PANEL Lab Routine Hypertension, essential Expected: 06/18/2024, Expires: 09/17/2024 [facility] Work Phone: Comment on above: Expected: 06/18/2024 , Expires: 09/17/2024 Start: 06-18-2024 End: 09-17-2024 Hemoglobin A1c in Blood HEMOGLOBIN A1C Lab Routine IFG (impaired fasting glucose) Expected: 06/18/2024, Expires: 09/17/2024 [facility] Comment on above: Expected: 06/18/2024 , Expires: 09/17/2024 Start: 06-18-2024 End: 06-18-2024 Patient encounter procedure 06/18/2024 1:00 PM EST Office Visit Family Medicine [facility] [address] [place] [address] Christina Anthony APRN.STATIONS SUPERINTENDENT [address] [place] [address] [facility] F/U 06/14/2024; High blood pressure, DVT [facility] [place] Comment on above: [facility] F/U ; High blood pressure, DVT Start: 05-28-2024 Advance Directive Discussion Advance Directive Discussion [facility] Start: 05-26-2024 End: 05-26-2024 Patient encounter procedure 05/26/2024 1:30 PM EST Office Visit Pulmonary Medicine [address] [place] [address] Yan Montaño MD [address] [address] 3 month f/u Pulmonary Medicine Comment on above: 3 month f/u Start: 04-30-2024 End: 07-30-2024 Comprehensive metabolic 2000 panel - Serum or Plasma COMPREHENSIVE METABOLIC PANEL Lab Routine CKD (chronic kidney disease) stage 2, GFR 60-89 ml/min Sciatica, right side Pedal edema Expected: 04/30/2024, Expires: 07/30/2024 [facility] Work Phone: Comment on above: Expected: 04/30/2024 , Expires: 07/30/2024 Start: 04-30-2024 End: 04-30-2024 Patient encounter procedure 04/30/2024 11:20 AM EST Office Visit [facility] [address] [facility] [place] [address] Christina Anthony APRN.STATIONS SUPERINTENDENT [address] [facility] [place] [address] Nerve pain [facility] [place] Comment on above: Nerve pain Start: 04-25-2024 End: 05-24-2024 Ct thorax w/o contrast material CT CHEST WO IVCON Radiology Routine Pulmonary nodule Expected: 04/25/2024, Expires: 05/24/2024 [facility] Work Phone: Comment on above: Expected: 04/25/2024 , Expires: 05/24/2024 Start: 04-06-2024 Annual PCP Team Loan Associate orestes Disease Visit Annual PCP Team Chronic Disease Visit [facility] Start: 04-06-2024 BP Controlled (<130/80) BP Controlle d (<130/80) [facility] Start: 03-07-2024 End: 03-07-2024 Patient encounter procedure 03/07/2024 2:10 PM EDT Appointment Mammogram [address] [place], [place] [id number] Encounter for screening mammogram for malignant neoplasm of breast [Z12.31] Mammogram Comment on above: Encounter for screen ing mammogram for malignant neoplasm of breast [Z12.31] Start: 03-07-2024 End: 03-07-2024 Patient encounter procedure 03/07/2024 1:05 PM EDT Appointment Radiology [address] [place] [id number] Asymptomatic postmenopausal status [Z78.0]; Disorder of bone and cartilage [M89.9, M94.9] Radiology Comment on above: Asymptomatic postmen opausal status [Z78.0]; Disorder of bone and cartilage [M89.9, M94.9] Start: 02-25-2024 End: 02-25-2024 Patient encounter procedure 02/25/2024 12:45 PM EDT Office Visit Pulmonary Medicine [address] [place] [address] Yan Montaño MD [address] [place] [address] Chronic obstructive pulmonary disease, unspecified COPD type (HCC) [J44.9] Pulmonary Medicine Comment on above: Chronic obstructive pulmonary disease, unspecified COPD type (HCC) [J44.9] Start: 02-25-2024 End: 02-25-2024 ambulatory PULM LAB [facility] Comment on above: Chronic obstructive pulmonary disease, unspecified COPD type (HCC) [J44.9] Start: 01-27-2024 Covid-19 Vaccine ( season) Covid-19 Vaccine ( season) [facility] Start: 01-27-2024 Covid-19 Vaccine () Covid-19 Vaccine () [facility] Start: 01-27-2024 Influenza vaccination [facility] Start: 01-23-2024 End: 01-23-2024 Patient encounter procedure 01/23/2024 4:40 PM EDT Office Visit Family Medicine [facility] [address] [facility], [place] [phone] Gray Quintana DO [address] [facility], [place] [phone] 3 month follow up Family Medicine [place] Comment on above: 3 month follow up Start: 01-23-2024 End: 04-23-2024 25-hydroxyvitamin D3 [Mass/volume] in Serum or Plasma VITAMIN D 25 HYDROXY Lab Routine Vitamin D deficiency Fatigue, unspecified type Expected: 01/23/2024, Expires: 04/23/2024 [facility] Comment on above: Expected: 01/23/2024 , Expires: 04/23/2024 Start: 01-23-2024 End: 04-23-2024 Cobalamin (Vitamin B12) [Mass/volume] in Serum or Plasma VITAMIN B12 Lab Routine Fatigue, unspecified type Expected: 01/23/2024, Expires: 04/23/2024 [facility] Comment on above: Expected: 01/23/2024 , Expires: 04/23/2024 Start: 01-23-2024 End: 04-23-2024 Hemoglobin A1c in Blood HEMOGLOBIN A1C Lab Routine IFG (impaired fasting glucose) Expected: 01/23/2024, Expires: 04/23/2024 [facility] Comment on above: Expected: 01/23/2024 , Expires: 04/23/2024 Start: 01-23-2024 End: 04-23-2024 Magnesium [Mass/volume] in Serum or Plasma MAGNESIUM Lab Routine Fatigue, unspecified type Expected: 01/23/2024, Expires: 04/23/2024 [facility] Comment on above: Expected: 01/23/2024 , Expires: 04/23/2024 Start: 01-23-2024 End: 04-23-2024 Thyrotropin [Units/volume] in Serum or Plasma THYROID STIMULATING HORMONE Lab Routine Fatigue, unspecified type Expected: 01/23/2024, Expires: 04/23/2024 [facility] Comment on above: Expected: 01/23/2024 , Expires: 04/23/2024 Start: 01-23-2024 End: 04-23-2024 Thyroxine (T4) free [Mass/volume] in Serum or Plasma T4 FREE/FREE THYROXINE Lab Routine Fatigue, unspecified type Expected: 01/23/2024, Expires: 04/23/2024 [facility] Comment on above: Expected: 01/23/2024 , Expires: 04/23/2024 Start: 01-17-2024 ANNUAL PCP TEAM LIGHTING FIXTURE INSTALLER ORESTES DISEASE VISIT ANNUAL PCP TEAM CHRONIC DISEASE VISIT [facility] Start: 01-17-2024 BP CONTROLLED (<130/80) BP CONTROLLE D (<130/80) [facility] Start: 12-28-2023 ANNUAL PCP TEAM LIGHTING FIXTURE INSTALLER ORESTES DISEASE VISIT ANNUAL PCP TEAM CHRONIC DISEASE VISIT [facility] Start: 12-28-2023 BP CONTROLLED (<130/80) BP CONTROLLE D (<130/80) [facility] Start: 12-28-2023 MMR (1 of 2 - Risk 2-dose series) MMR (1 of 2 - Risk 2-dose series) [facility] Comment on above: Postponed from 04/01 (Declined at this time) Start: 12-28-2023 MMR Vaccine (1 of 2 - Risk 2-dose series) MMR Vaccine (1 of 2 - Risk 2-dose series) [facility] Comment on above: Postponed from 04/01 (Declined at this time) Start: 12-28-2023 Pneumococcal Vaccine : 65+ (1 - PCV) Pneumococcal Vaccine: 65+ (1 - PCV) [facility] Comment on above: Postponed from 04/01 (Declined at this time) Start: 12-28-2023 PNEUMOCOCCAL: 65+ (1 - PCV) PNEUMOCOCCAL: 65+ (1 - PCV) [facility] Comment on above: Postponed from 04/01 (Declined at this time) Start: 12-28-2023 SHINGRIX VACCINE (1 of 2) SHINGRIX VACCINE (1 of 2) [facility] Comment on above: Postponed from 04/01 (Declined at this time) Start: 12-06-2023 End: 12-06-2023 Patient encounter procedure 12/06/2023 1:20 PM EDT Appointment Cat Scan [address] [place] [address] SOB (shortness of breath) [R06.02] Cat Scan Comment on above: SOB (shortness of br eath) [R06.02] Start: 12-03-2023 End: 03-03-2024 CREATININE BLD [facility] Comment on above: Expected: 12/03/2023 , Expires: 03/03/2024 Start: 11-25-2023 Influenza vaccination Influenza Vacc ine (#1) [facility] Comment on above: Postponed from 01/26 (Declined at this time) Start: 11-15-2023 ANNUAL PCP TEAM LIGHTING FIXTURE INSTALLER ORESTES DISEASE VISIT ANNUAL PCP TEAM CHRONIC DISEASE VISIT [facility] Start: 11-15-2023 Creatinine measurement Serum Creatin ine [facility] Start: 11-15-2023 SERUM CREATININE SERUM CREATININE Cl [facility] Start: 10-17-2023 End: 10-17-2023 Patient encounter procedure 10/17/2023 10:40 AM EDT Office Visit Family Medicine [facility] [address] [place] [address] Gray Quintana DO [address] [place] [address] 3 month follow up/weight [facility] Comment on above: 3 month follow up/we ight Start: 10-11-2023 ANNUAL PCP TEAM LIGHTING FIXTURE INSTALLER ORESTES DISEASE VISIT ANNUAL PCP TEAM CHRONIC DISEASE VISIT [facility] Start: 08-24-2023 ANNUAL PCP TEAM LIGHTING FIXTURE INSTALLER ORESTES DISEASE VISIT ANNUAL PCP TEAM CHRONIC DISEASE VISIT [facility] Start: 07-19-2023 End: 10-18-2023 C reactive protein [Mass/volume] in Serum or Plasma C-REACTIVE PROTEIN (CRP) Lab Routine Elevated C-reactive protein (CRP) Expected: 07/19/2023, Expires: 10/18/2023 [facility] Work Phone: Comment on above: Expected: 07/19/2023 , Expires: 10/18/2023 Start: 07-19-2023 End: 10-18-2023 Comprehensive metabolic 2000 panel - Serum or Plasma COMP METABOLIC PANEL Lab Routine Elevated serum creatinine Expected: 07/19/2023, Expires: 10/18/2023 [facility] Work Phone: Comment on above: Expected: 07/19/2023 , Expires: 10/18/2023 Start: 07-09-2023 End: 10-08-2023 25-hydroxyvitamin D3 [Mass/volume] in Serum or Plasma [facility] Work Phone: Comment on above: Expected: 07/09/2023 , Expires: 10/08/2023 Start: 07-03-2023 COLORECTAL CANCER SCREENING COLORECTAL CANCER SCREENING [facility] Comment on above: Postponed from 04/01 (Declined at this time) Start: 07-03-2023 COVID-19 VACCINE (#1) COVID-19 VACCI NE (#1) [facility] Comment on above: Postponed from 09/29 (Declined at this time) Start: 07-03-2023 Screening for malign ant neoplasm of colon Colorectal Cancer Screening [facility] Comment on above: Postponed from 04/01 (Declined at this time) Start: 05-28-2023 Advance Directive Discussion Advance Directive Discussion [facility] Start: 05-28-2023 Behavioral Health Screening Behavioral Health Screening [facility] Start: 05-28-2023 Depression Assessment Depression Ass essment [facility] Start: 05-27-2023 ADVANCE DIRECTIVE DISCUSSION ADVANCE DIRECTIVE DISCUSSION [facility] Comment on above: Postponed from 05/28 (Declined at this time) Start: 05-11-2023 Mammography [facility] Start: 05-11-2023 Screening for malign ant neoplasm of breast Mammogram Screening [facility] Start: 05-03-2023 End: 08-02-2023 C reactive protein [Mass/volume] in Serum or Plasma C-REACTIVE PROTEIN (CRP) Lab Routine Elevated C-reactive protein (CRP) Expected: 05/03/2023, Expires: 08/02/2023 [facility] Work Phone: Comment on above: Expected: 05/03/2023 , Expires: 08/02/2023 Start: 04-18-2023 Protein measurement [facility] Start: 03-23-2023 [facility] Start: 01-26-2023 Influenza vaccination [facility] Start: 11-14-2022 End: 01-14-2023 Comprehensive metabolic 2000 panel - Serum or Plasma [facility] Work Phone: Comment on above: Expected: 11/14/2022 , Expires: 01/14/2023 Start: 11-14-2022 End: 01-14-2023 Ferritin [Mass/volume] in Serum or Plasma [facility] Work Phone: Comment on above: Expected: 11/14/2022 , Expires: 01/14/2023 Start: 11-14-2022 End: 01-14-2023 Iron and Iron binding capacity panel - Serum or Plasma [facility] Work Phone: Comment on above: Expected: 11/14/2022 , Expires: 01/14/2023 Start: 11-14-2022 End: 01-14-2023 Thyrotropin [Units/volume] in Serum or Plasma [facility] Work Phone: Comment on above: Expected: 11/14/2022 , Expires: 01/14/2023 Start: 08-23-2022 End: 10-23-2022 C reactive protein [Mass/volume] in Serum or Plasma [facility] Work Phone: Comment on above: Expected: 08/23/2022 , Expires: 10/23/2022 Start: 08-23-2022 End: 10-23-2022 Creatine kinase [Enzymatic activity/volume] in Serum or Plasma [facility] Work Phone: Comment on above: Expected: 08/23/2022 , Expires: 10/23/2022 Start: 08-23-2022 End: 10-23-2022 Cyclic citrullinated peptide IgG Ab [Units/volume] in Serum or Plasma [facility] Work Phone: Comment on above: Expected: 08/23/2022 , Expires: 10/23/2022 Start: 08-23-2022 End: 10-23-2022 Magnesium [Mass/volume] in Serum or Plasma [facility] Work Phone: Comment on above: Expected: 08/23/2022 , Expires: 10/23/2022 Start: 08-23-2022 End: 10-23-2022 Nuclear Ab [Presence] in Serum by Immunoassay [facility] Work Phone: Comment on above: Expected: 08/23/2022 , Expires: 10/23/2022 Start: 08-23-2022 End: 10-23-2022 Rheumatoid factor [Units/volume] in Serum or Plasma [facility] Work Phone: Comment on above: Expected: 08/23/2022 , Expires: 10/23/2022 Start: 07-03-2022 End: 09-02-2022 Comprehensive metabolic 2000 panel - Serum or Plasma [facility] Work Phone: Comment on above: Expected: 07/03/2022 , Expires: 09/02/2022 Start: 07-03-2022 End: 09-02-2022 Hemoglobin A1c in Blood [facility] Work Phone: Comment on above: Expected: 07/03/2022 , Expires: 09/02/2022 Start: 07-03-2022 End: 09-02-2022 Lipid 1996 panel - Serum or Plasma [facility] Work Phone: Comment on above: Expected: 07/03/2022 , Expires: 09/02/2022 Start: 07-03-2022 End: 09-02-2022 Thyrotropin [Units/volume] in Serum or Plasma [facility] Work Phone: Comment on above: Expected: 07/03/2022 , Expires: 09/02/2022 Start: 12-15-2021 IgE [Units/volume] i n Serum or Plasma [facility] Work Phone: Start: 12-15-2021 [facility] Work Phone: Start: 2015 PNEUMOCOCCAL: 65+ (1 - PCV) PNEUMOCOCCAL: 65+ (1 - PCV) [facility] Start: 03-28-2015 Medicare Annual Well ness Visit Medicare Annual Wellness Visit [facility] Start: 04-06-2012 Colonoscopy COLONOSCOPY [facility] Start: 04-06-2012 Screening for malign ant neoplasm of colon [facility] Start: 2010 HEPATITIS B (1 of 3 - Risk 3-dose series) HEPATITIS B (1 of 3 - Risk 3-dose series) [facility] Start: 2010 Hepatitis B Vaccine (1 of 3 - Risk 3-dose series) Hepatitis B Vaccine (1 of 3 - Risk 3-dose series) [facility] Start: 2010 RSV Vaccine (1 - 1-d ose 60+ series) RSV Vaccine (1 - 1-dose 60+ series) [facility] Start: 2010 RSV Vaccine (1 - Ris k 60-74 years 1-dose series) RSV Vaccine (1 - Risk 60-74 years 1-dose series) [facility] Start: 2000 SHINGRIX VACCINE (1 of 2) SHINGRIX VACCINE (1 of 2) [facility] Start: 1995 COLOGUARD (FIT-DNA) COLOGUARD (FIT-D NA) [facility] Start: [address] COLONOGRAPHY [facility] Start: 1995 DIABETES SCREEN DIABETES SCREEN [facility] Start: 1995 FECAL OCCULT BLOOD FECAL OCCULT BLOO D [facility] Start: 1995 LIPID SCREEN LIPID SCREEN [facility] Start: 1995 Screening for malign ant neoplasm of colon [facility] Start: 1995 SIGMOIDOSCOPY SIGMOIDOSCOPY [facility] Start: 1980 Zoledronic acid therapy Alpha- 1 Antitrypsin Deficiency Screening [facility] Start: 1969 HEPATITIS A (1 of 2 - Risk 2-dose series) HEPATITIS A (1 of 2 - Risk 2-dose series) [facility] Start: 1969 Hepatitis A Vaccine (1 of 2 - Risk 2-dose series) Hepatitis A Vaccine (1 of 2 - Risk 2-dose series) [facility] Start: 1968 BP CONTROLLED (<130/80) BP CONTROLLE D (<130/80) [facility] Start: 1968 MMR (1 of 2 - Risk 2-dose series) MMR (1 of 2 - Risk 2-dose series) [facility] Start: 1968 Spirometry Spirometry [facility] Start: 1960 Meningococcal B Vacc ine: Consider Based On Risk (1 of 4 - Increased Risk) Meningococcal B Vaccine: Consider Based On Risk (1 of 4 - Increased Risk) [facility] Start: 1960 MENINGOCOCCAL B: Consider based on risk (1 of 4 - Increased Risk Bexsero 2-dose series) MENINGOCOCCAL B: Consider based on risk (1 of 4 - Increased Risk Bexsero 2-dose series) [facility] Start: 1960 MENINGOCOCCAL B: Consider based on risk (1 of 4 - Increased Risk) MENINGOCOCCAL B: Consider based on risk (1 of 4 - Increased Risk) [facility] Start: 1956 PNEUMOCOCCAL: 65+ (1 - PCV) PNEUMOCOCCAL: 65+ (1 - PCV) [facility] Start: 1951 HEPATITIS A (1 of 2 - Risk 2-dose series) HEPATITIS A (1 of 2 - Risk 2-dose series) [facility] Alternaria alternata IgE Ab [Units/volume] in Serum [facility] Work Phone: Tajik Cockroach I gE Ab [Units/volume] in Serum [facility] Work Phone: Tajik house dust mite IgE Ab [Units/volume] in Serum [facility] Work Phone: Aspergillus fumigatu s [facility] Work Phone: Bacteria identified in Urine by Culture BACTERIAL CULTURE, URINE Microbiology Routine Increased urinary frequency Foul smelling urine 09/11/2024 4:34 PM EDT [facility] Work Phone: Bacteria identified in Urine by Culture BACTERIAL CULTURE, URINE Microbiology Routine Dysuria 12/29/2024 11:29 AM EDT [facility] Work Phone: Bacteria identified in Urine by Culture BACTERIAL CULTURE, URINE Microbiology Routine UTI symptoms 01/12/2025 1:09 PM EDT [facility] Work Phone: Bermuda grass IgE Ab [Units/volume] in Serum [facility] Work Phone: Box elder [facility] Work Phone: Cat dander [facility] Work Phone: Cladosporium herbaru m IgE Ab [Units/volume] in Serum [facility] Work Phone: Clostridioides diffi cile DNA [Presence] in Unspecified specimen by MOUNIKA with probe detection [facility] Clostridioides diffi cile DNA [Presence] in Unspecified specimen by MOUNIKA with probe detection [facility] Common Ragweed IgE A b [Units/volume] in Serum [facility] Work Phone: [place] [facility] Work Phone: CT Chest [facility] End: 05-05-2024 Ct thorax w/o contrast material CT CHEST WO IVCON Radiology Routine Lung nodule, multiple Chronic obstructive pulmonary disease, unspecified COPD type (HCC) 1 Occurrences starting 04/06/2023 until 05/05/2024 [facility] Work Phone: Comment on above: 1 Occurrences starti ng 04/06/2023 until 05/05/2024 End: 01-01-2025 CTA Pulmonary arteries for pulmonary embolus W contrast IV CT CHEST W IVCON PE Radiology STAT SOB (shortness of breath) 1 Occurrences starting 12/03/2023 until 01/01/2025 [facility] Comment on above: 1 Occurrences starti ng 12/03/2023 until 01/01/2025 Dog epithelium IgE A b [Units/volume] in Serum [facility] Work Phone: End: 02-21-2025 DXA Skeletal system.axial Views for bone density DXA-AXIAL SKELETON Radiology Routine Asymptomatic postmenopausal status Disorder of bone and cartilage 1 Occurrences starting 01/23/2024 until 02/21/2025 [facility] Comment on above: 1 Occurrences starti ng 01/23/2024 until 02/21/2025 DXA Skeletal system.axial Views for bone density DXA-AXIAL SKELETON Radiology Routine Asymptomatic postmenopausal status Disorder of bone and cartilage 03/07/2024 1:23 PM EDT [facility] Work Phone: house dust mite IgE Ab [Units/volume] in Serum [facility] Work Phone: End: 06-18-2025 HOME SLEEP APNEA TEST (HSAT) HOME SLEEP APNEA TEST (HSAT) Procedures Routine Poor sleep NEVA (obstructive sleep apnea) 1 Occurrences starting 06/18/2024 until 06/18/2025 [facility] Comment on above: 1 Occurrences starti ng 06/18/2024 until 06/18/2025 IgE [Units/volume] i n Serum or Plasma [facility] Work Phone: Immunoglobulin E measurement [facility] Work Phone: End: 07-24-2025 INR in Platelet poor plasma by Coagulation assay INR (POC) Lab Routine Personal history of DVT (deep vein thrombosis) Once per month for 99 Occurrences starting 07/24/2024 until 07/24/2025 [facility] Work Phone: Comment on above: Once per month for 9 9 Occurrences starting 07/24/2024 until 07/24/2025 End: 01-01-2025 LUNG DIFFUSION CAPACITY (DLCO) LUNG DIFFUSION CAPACITY (DLCO) PFT Routine Chronic obstructive pulmonary disease, unspecified COPD type (HCC) 1 Occurrences starting 12/03/2023 until 01/01/2025 [facility] Comment on above: 1 Occurrences starti ng 12/03/2023 until 01/01/2025 LUNG DIFFUSION CAPAC ITY (DLCO) LUNG DIFFUSION CAPACITY (DLCO) PFT Routine Chronic obstructive pulmonary disease, unspecified COPD type (HCC) 02/25/2024 11:09 AM EDT [facility] Work Phone: End: 01-01-2025 LUNG VOLUMES LUNG VOLUMES PFT Routine Chronic obstructive pulmonary disease, unspecified COPD type (HCC) 1 Occurrences starting 12/03/2023 until 01/01/2025 [facility] Comment on above: 1 Occurrences starti ng 12/03/2023 until 01/01/2025 LUNG VOLUMES LUNG VOLUMES PFT Routine Chronic obstructive pulmonary disease, unspecified COPD type (HCC) 02/25/2024 11:09 AM EDT [facility] Work Phone: End: 07-19-2024 EMMANUELLE SCREENING EMMANUELLE SCREENING Radiology Routine Encounter for screening mammogram for breast cancer 1 Occurrences starting 06/20/2023 until 07/19/2024 [facility] Work Phone: Comment on above: 1 Occurrences starti ng 06/20/2023 until 07/19/2024 End: 07-26-2024 EMMANUELLE SCREENING EMMANUELLE SCREENING Radiology Routine Encounter for screening mammogram for breast cancer 1 Occurrences starting 06/27/2023 until 07/26/2024 [facility] Work Phone: Comment on above: 1 Occurrences starti ng 06/27/2023 until 07/26/2024 Measurement of Aspergillus flavus antibody [facility] Work Phone: Measurement of Aspergillus fumigatus antibody [facility] Work Phone: Measurement of Aspergillus niger antibody [facility] Work Phone: End: 02-21-2025 MG Breast Screening EMMANUELLE SCREENING Radiology Routine Encounter for screening mammogram for malignant neoplasm of breast 1 Occurrences starting 01/23/2024 until 02/21/2025 [facility] Work Phone: Comment on above: 1 Occurrences starti ng 01/23/2024 until 02/21/2025 MG Breast Screening EMMANUELLE SCREENIN G Radiology Routine Encounter for screening mammogram for malignant neoplasm of breast 03/07/2024 1:36 PM EDT [facility] Work Phone: End: 02-18-2026 MG Breast Screening EMMANUELLE SCREENING Radiology Routine Encounter for screening mammogram for malignant neoplasm of breast 1 Occurrences starting 01/20/2025 until 02/18/2026 [facility] Work Phone: Comment on above: 1 Occurrences starti ng 01/20/2025 until 02/18/2026 Mouse urine proteins [facility] Work Phone: End: 11-29-2025 MR Biliary ducts and Pancreatic duct WO and W contrast IV MRI PANC/TRISH WO/W IVCON Radiology Routine Calculus of gallbladder without cholecystitis without obstruction 1 Occurrences starting 10/30/2024 until 11/29/2025 [facility] Work Phone: Comment on above: 1 Occurrences starti ng 10/30/2024 until 11/29/2025 MR Biliary ducts and Pancreatic duct WO and W contrast IV MRI PANC/TRISH WO/W IVCON Radiology Routine Calculus of gallbladder without cholecystitis without obstruction 11/11/2024 12:32 PM EDT [facility] Work Phone: End: 12-05-2025 MR Lumbar spine WO contrast MRI LUMBAR SPINE WO IVCON Radiology Routine Radiculopathy of lumbar region 1 Occurrences starting 11/05/2024 until 12/05/2025 [facility] Work Phone: Comment on above: 1 Occurrences starti ng 11/05/2024 until 12/05/2025 End: 11-29-2025 MR Unspecified body region 3D post processing MRI 3D POST PROCESSING Radiology Routine Calculus of gallbladder without cholecystitis without obstruction Nausea 1 Occurrences starting 10/30/2024 until 11/29/2025 [facility] Comment on above: 1 Occurrences starti ng 10/30/2024 until 11/29/2025 MR Unspecified body region 3D post processing MRI 3D POST PROCESSING Radiology Routine Calculus of gallbladder without cholecystitis without obstruction Nausea 11/11/2024 12:33 PM EDT [facility] Neutrophil cytoplasm ic Ab.classic [Units/volume] in Serum [facility] Work Phone: End: 06-25-2025 NITRIC OXIDE, EXHALED NITRIC OXIDE, EXHALED PFT Routine Asthma-COPD overlap syndrome (HCC) 1 Occurrences starting 05/26/2024 until 06/25/2025 [facility] Work Phone: Comment on above: 1 Occurrences starti ng 05/26/2024 until 06/25/2025 Njx dx/ther sbst intrlmnr lmbr/sac w/img gdn EPI LUMBAR OR SACRAL W/IMAGING Procedures Routine Radiculopathy of lumbar region History of lumbar laminectomy for spinal cord decompression Ordered: 11/25/2024 [facility] Work Phone: Comment on above: Ordered: 11/25/2024 End: 11-07-2025 NM Biliary ducts and Gallbladder Views for patency of biliary structures and ejection fraction W sincalide and W radionuclide IV NM HEPATOBILIARY W EF AND/OR RX Radiology Routine Calculus of gallbladder without cholecystitis without obstruction Nausea 1 Occurrences starting 10/08/2024 until 11/07/2025 [facility] Work Phone: Comment on above: 1 Occurrences starti ng 10/08/2024 until 11/07/2025 OXIMETRY - NOCTURNAL OXIMETRY - NOCTURNAL Procedures Routine NEVA (obstructive sleep apnea) Asthma-COPD overlap syndrome (HCC) Ordered: 02/25/2024 [facility] Work Phone: Comment on above: Ordered: 02/25/2024 P-ANCA measurement [facility] Work Phone: Patient Education [facility] Work Phone: Patient referral [facility] Work Phone: Pecan or Banks Nut IgE Ab [Units/volume] in Serum [facility] Work Phone: Protein measurement [facility] End: 07-24-2025 PT panel - Platelet poor plasma by Coagulation assay PROTHROMBIN TIME Lab STAT Personal history of DVT (deep vein thrombosis) Once per month for 99 Occurrences starting 07/24/2024 until 07/24/2025 [facility] Comment on above: Once per month for 9 9 Occurrences starting 07/24/2024 until 07/24/2025 PT PLAN OF CARE CERTIFICATION PT PLAN OF CARE CERTIFICATION Procedures Routine Spinal stenosis of lumbar region, unspecified whether neurogenic claudication present Ordered: 10/24/2022 [facility] Comment on above: Ordered: 10/24/2022 PT PLAN OF CARE CERTIFICATION PT PLAN OF CARE CERTIFICATION Procedures Routine Spinal stenosis, lumbar region, without neurogenic claudication Ordered: 11/15/2022 [facility] Comment on above: Ordered: 11/15/2022 Rough Pigweed IgE Ab [Units/volume] in Serum [facility] Work Phone: Sheep [place] IgE Ab [Units/volume] in Serum [facility] Work Phone: Silver Birch IgE Ab [Units/volume] in Serum [facility] Work Phone: End: 01-01-2025 SPIROMETRY WITH DILATOR IF OBSTRUCTED SPIROMETRY WITH DILATOR IF OBSTRUCTED PFT Routine Chronic obstructive pulmonary disease, unspecified COPD type ([facility]) 1 Occurrences starting 12/03/2023 until 01/01/2025 [facility] Work Phone: Comment on above: 1 Occurrences starti ng 12/03/2023 until 01/01/2025 SPIROMETRY WITH DILA TOR IF OBSTRUCTED SPIROMETRY WITH DILATOR IF OBSTRUCTED PFT Routine Chronic obstructive pulmonary disease, unspecified COPD type (HCC) 02/25/2024 11:09 AM EDT [facility] Work Phone: Danny IgE Ab [Units/volume] in Serum [facility] Work Phone: Tree pollen [facility] Work Phone: End: 11-02-2025 US Abdomen RUQ US ABD RIGHT UPPER QUADRANT Radiology Routine Abdominal distension LUQ abdominal pain 1 Occurrences starting 10/03/2024 until 11/02/2025 [facility] Comment on above: 1 Occurrences starti ng 10/03/2024 until 11/02/2025 US Abdomen RUQ US ABD RIGHT UPP ER QUADRANT Radiology Routine Abdominal distension LUQ abdominal pain 10/06/2024 1:23 PM EDT [facility] Work Phone: End: 07-28-2025 US Lower extremity vein US LEG VEIN DVT UNL VAS LAB Vascular Lab STAT Acute deep vein thrombosis (DVT) of proximal vein of right lower extremity (HCC) Pain of right lower extremity 1 Occurrences starting 07/28/2024 until 07/28/2025 [facility] Work Phone: Comment on above: 1 Occurrences starti ng 07/28/2024 until 07/28/2025 [place] [facility] Work Phone: White Arsen IgE Ab [Units/volume] in Serum [facility] Work Phone: White [place] IgE Ab [Units/volume] in Serum [facility] Work Phone: White mulberry IgE A b [Units/volume] in Serum [facility] Work Phone: End: 01-03-2026 XR Cervical spine 2 or 3 views and (Views W flexion and W extension) XR CERVICAL 2V FLEX/EXT Radiology Routine Neck pain 1 Occurrences starting 12/04/2024 until 01/03/2026 [facility] Work Phone: Comment on above: 1 Occurrences starti ng 12/04/2024 until 01/03/2026 XR Cervical spine 2 or 3 views and (Views W flexion and W extension) XR CERVICAL 2V FLEX/EXT Radiology Routine Neck pain 12/04/2024 10:17 AM EDT [facility] End: 01-03-2026 XR Elbow - left AP and Lateral XR ELBOW GENERAL 2V AP/LAT LEFT Radiology Routine Left elbow pain 1 Occurrences starting 12/04/2024 until 01/03/2026 [facility] Comment on above: 1 Occurrences starti ng 12/04/2024 until 01/03/2026 XR Elbow - left AP a nd Lateral XR ELBOW GENERAL 2V AP/LAT LEFT Radiology Routine Left elbow pain 12/04/2024 10:17 AM EDT [facility] End: 11-02-2025 XR HIP BILATERAL 5V PEL/AP/LAT EACH HIP XR HIP BILATERAL 5V PEL/AP/LAT EACH HIP Radiology Routine Chronic midline low back pain with bilateral sciatica Spinal stenosis of lumbar region without neurogenic claudication 1 Occurrences starting 10/03/2024 until 11/02/2025 [facility] Comment on above: 1 Occurrences starti ng 10/03/2024 until 11/02/2025 XR HIP BILATERAL 5V PEL/AP/LAT EACH HIP XR HIP BILATERAL 5V PEL/AP/LAT EACH HIP Radiology Routine Chronic midline low back pain with bilateral sciatica Spinal stenosis of lumbar region without neurogenic claudication 10/03/2024 9:16 AM EDT [facility] End: 11-02-2025 XR Lumbar spine 3 Views XR LUMBAR GENERAL 3V AP/LAT/L5-S1 Radiology Routine Chronic midline low back pain with bilateral sciatica Spinal stenosis of lumbar region without neurogenic claudication 1 Occurrences starting 10/03/2024 until 11/02/2025 [facility] Work Phone: Comment on above: 1 Occurrences starti ng 10/03/2024 until 11/02/2025 XR Lumbar spine 3 Views XR LUMBA R GENERAL 3V AP/LAT/L5-S1 Radiology Routine Chronic midline low back pain with bilateral sciatica Spinal stenosis of lumbar region without neurogenic claudication 10/03/2024 9:16 AM EDT [facility] End: 01-01-2025 XR Shoulder - right 3 Views XR SHOULDER GENERAL 3V OR MORE AP/TRUE AP/OTHER RIGHT Radiology Routine Acute pain of right shoulder 1 Occurrences starting 12/03/2023 until 01/01/2025 [facility] Comment on above: 1 Occurrences starti ng 12/03/2023 until 01/01/2025 XR Shoulder - right 3 Views XR SHOULDER GENERAL 3V OR MORE AP/TRUE AP/OTHER RIGHT Radiology Routine Acute pain of right shoulder 12/03/2023 4:53 PM EDT [facility] End: 01-03-2026 XR Thoracic spine AP and Lateral XR THORACIC LIMITED 2V AP/LAT Radiology Routine Mid back pain 1 Occurrences starting 12/04/2024 until 01/03/2026 [facility] Comment on above: 1 Occurrences starti ng 12/04/2024 until 01/03/2026 XR Thoracic spine AP and Lateral XR THORACIC LIMITED 2V AP/LAT Radiology Routine Mid back pain 12/04/2024 10:17 AM EDT [facility] Immunizations Immunization Date Immunization Notes Care Provider [facility] 02-25-2023 influenza virus vaccine, unspecified formulation Carolyn Ramirez PIPELINES MANAGER.STATIONS SUPERINTENDENT Work Phone: [facility] 03-09-2022 influenza, injectabl e, quadrivalent, preservative free Dr. Gray Quintana DO Work Phone: [facility] 03-09-2022 influenza, high dose seasonal, preservative-free JACKIE HAIDER PIPELINES MANAGER-STATIONS SUPERINTENDENT [facility] 03-09-2022 influenza virus vaccine, unspecified formulation Lanie Love [facility] 03-27-2020 Influenza High-Dose Quadrivalent Dr. Gray Quintana DO Work Phone: [facility] 03-27-2020 influenza virus vaccine, unspecified formulation KEENA COFFEY MD [facility] 03-11-2018 influenza virus vaccine, unspecified formulation KEENA COFFEY MD [facility] 03-11-2018 influenza, high dose seasonal, preservative-free Dr. Gray Quintana DO Work Phone: [facility] 03-11-2018 pneumococcal polysaccharide vaccine, 23 valent KEENA COFFEY MD [facility] 01-23-2018 tetanus toxoid, redu panda diphtheria toxoid, and acellular pertussis vaccine, adsorbed KEENA COFFEY MD [facility] 01-22-2017 influenza virus vaccine, unspecified formulation KEENA COFFEY MD [facility] 01-22-2017 influenza, high dose seasonal, preservative-free Dr. Gray Quintana DO Work Phone: [facility] 01-22-2017 pneumococcal conjuga te vaccine, 13 valent KEENA COFFEY MD [facility] 05-23-2012 influenza virus vaccine, unspecified formulation KEENA COFFEY MD [facility] 05-23-2012 influenza, high dose seasonal, preservative-free Dr. Gray Quintana DO Work Phone: [facility] 04-05-2007 influenza, injectabl e, quadrivalent, preservative free Dr. Gray Quintana DO Work Phone: [facility] 05-04-2003 pneumococcal polysaccharide vaccine, 23 valent KEENA COFFEY MD [facility] 05-04-1997 TD(adult) unspecifie d formulation Dr. Gray Quintana DO Work Phone: [facility] 05-28-1996 tetanus toxoid, adsorbed Dr. Gray Quintana DO Work Phone: [facility] Payers Date Payer Category Payer Self-pay [id number] 2020 Private Health Insurance MMO MED ICARE SUPPLEMENT Member Subscriber Plan / Payer (Effective 2020-Present) Name: Nadja Chaudhari Relation to Subscriber: Self Name: Nadja Chaudhari Payer ID: Not on file Type: Indemnity Address: [place] [id number] [id number] 2020 Unknown [id number] 2020 Unknown [id number] 2015 Medicare [id number] 2015 Medicare [id number] 1950 Unknown [id number]. 627 1950 Unknown [id number]. 627 1950 Unknown [id number]. 627 1950 Unknown [id number] [id number]. 627 1950 Unknown [id number]. 627 1950 Unknown [id number]. 627 1950 Unknown [id number] [id number]. 627 Unknown [facility] *DO NOT USE* [id number] Unknown [id number]. 462 Unknown [id number]. 462 Unknown [id number] [id number]. 462 Unknown [id number] 2.840.1.831980.3.579.2. 462 Unknown [id number] 2.840.1.980381.3.579.2. 462 Unknown [id number] [id number]. 462 Unknown [id number] [id number]. 462 Unknown [id number]. 462 Social History Date Type Detail Facility Start: 10-13-2020 Light tobacco smoker (finding) [facility] Sex Assigned At [facility] Start: 06-14-2021 End: 03-23-2023 Tobacco smoking status NHIS Unknown if ever smoked [facility] Start: 12-17-2018 None [facility] Start: 08-25-2019 Alone [facility] Start: 1950 Sex Assigned At Female W [facility] Start: 05-10-2022 End: 05-26-2024 Tobacco smoking status Ex-smoker (finding) [facility] Start: 07-03-2022 Tobacco smoking stat us MOIS Smokes tobacco daily [facility] Start: 05-28-1973 End: 12-26-2021 History of tobacco use Cigarette Smoker [facility] Start: 07-03-2022 End: 10-24-2022 Cigarettes smoked current (pack per day) - Reported 1 [facility] Work Phone: Start: 07-03-2022 End: 05-26-2024 Tobacco use and exposure Smokeless tobacco non-user [facility] Start: 07-03-2022 End: 04-30-2024 Alcohol intake Current drinker of alcohol (finding) [facility] Start: 1950 Sex Assigned At Not on file [facility] Start: 05-28-1973 End: 12-26-2021 History of tobacco use Current smoker [facility] Start: 10-24-2022 End: 12-06-2022 Tobacco use panel [facility] Work Phone: Start: 04-28-2012 Adult Depression Screening Assessment 0 [facility] Work Phone: Start: 05-26-2024 End: 01-19-2025 Alcoholic beverage intake Ex-drinker (finding) [facility] Start: 07-06-2005 Sex Female (finding) [facility] Goals Date Patient Goal Desired Activity /State Personal health goal Personal health goal Mental Status Date Assessment Result Facility 03-23-2023 Cognitive function Level Of Cons ciousness Awake;Alert;Appropriate [facility] Work Phone: Clinical Notes 09-17-2020 to 01-22-2025 Telephone Encounter - Mariangel Copeland RN - 01/22/2025 10:51 AM EDTTelephone Encounter - Mariangel Copeland RN - 01/22/2025 10:51 AM EDTJeffrey Hedrick PT - 01/20/2025 11:49 AM EDTPatient InstructionsRadiology Note Date & Type Note Facility 01-22-2025 Telephone encounter Note Patient contacted Pain Management with voicemail on 01/22/2025 at 1036 stating that she needs to cancel her upcoming injection procedure on 02/03/2025 due to recent hospitalization and diverticulitis diagnosis. Injection procedure cancelled. Case message sent. [facility] 01-22-2025 Miscellaneous Notes Patient contacted Pain Management with voicemail on 01/22/2025 at 1036 stating that she needs to cancel her upcoming injection procedure on 02/03/2025 due to recent hospitalization and diverticulitis diagnosis. Injection procedure cancelled. Case message sent. documented in this encounter [facility] 01-20-2025 Note [facility] 01-20-2025 History of Presen t illness Narrative Episode Visit Count: 4 Therapist That Will Accept/Oversee The Plan Of Care: Jeffrey Hedrick Start of Care Date: 12/23/24 Onset Date: 10/23/24 Plan of Care Certification Date: 12/23/24 Next Certification Due Date: 02/23/25 Patient Identified by Name and Date of : Yes [facility]ER[facility] PHYSICAL THERAPY TREATMENT NOTE ASSESSMENT: Nadja Chaudhari tolerated the session with decreased symptoms and expected muscle soreness. She demonstrated improvements in pain after manual therapy. The patient will continue to benefit from ongoing skilled physical therapy to progress toward set goals. PLAN FOR NEXT VISIT: Asses response to holding off on exercises with only manual therapy to see if this changed her symptoms SUBJECTIVE: Pt reports that her L shoulder is drier tender. States that anytime she sits in a recliner and she has pressure on her L shoulder blade it hurts and hurts down her arm as well. t as; states that her bra strap irritates it as well. Pt states it feels like a nerve pain. Still stiff and tingling in ring and pinky fingers on L hand. Pain: Pain Pain Level: 2 (can get up to 5-6/10) Pain Location: Neck - Left, Upper Arm - Left, Arm - Left, Shoulder - Left Description: Stiffness, Sore Post Treatment Pain Post Treatment Pain Level: 0 OBJECTIVE MEASURES WITH LEVEL OF FUNCTION: Soft tissue restrictions throughout L UT and along medial border of scapula TREATMENT: Manual Therapy: 1: STM with intermittent trigger point relase and muscle stripping to L upper trap, rhomboids and paraspinals with push to tolerance 2: Manual intermittent cervical traction x 10 min with pull to tolerance Skilled Intervention: Manual skills to improve joint mobility, ROM, and decrease pain. Utilized anatomy knowledge of the clinician, and assessment of patient's response to intervention. Billing Manual TherapyTreatment Minutes: 33 Skilled Treatment Time Minutes (timed and untimed codes): 33 Total Session Time (minutes): 33 Session Start Time : 1145 Session Stop Time : 1218 MORRO Sequeira PT documented in this encounter [facility] 01-20-2025 Telephone encounter Note Left message for patient to call in to schedule mammogram [facility] 01-20-2025 Miscellaneous Notes Left message for patient to call in to schedule mammogram Order for mammogram Please schedule Gray Quintana DO Patient presented at front end mechanic to schedule annual mammogram. Please file order for scheduling purposes. Patient aware she will be contacted by phone to schedule. Kasey Calvin documented in this encounter [facility] 01-20-2025 Telephone encounter Note Order for mammogram Please schedule Gray Quintana DO [facility] 01-19-2025 Telephone encounter Note Pt called in and reports the Bentyl was too expensive at [facility] in [place]. She was asking if the provider could send them somewhere else. I told her she could have whatever pharmacy she wanted them to go to to call [facility] and have them transfer the Rx to them. Eleanor Ratliff RN \ [facility] 01-19-2025 Miscellaneous Notes Pt called in and reports the Bentyl was too expensive at [facility] in [place]. She was asking if the provider could send them somewhere else. I told her she could have whatever pharmacy she wanted them to go to to call [facility] and have them transfer the Rx to them. Eleanor Ratliff RN \ documented in this encounter [facility] 01-19-2025 Telephone encounter Note Patient presented at front end mechanic to schedule annual mammogram. Please file order for scheduling purposes. Patient aware she will be contacted by phone to schedule. Kasey Calvin [facility] 01-19-2025 Jean Carlos Kate APRN.STATIONS SUPERINTENDENT - 01/19/2025 2:05 PM EDT Try taking the dicyclomine (bentyl) prior to meals to see If that helps with stomach spasms and intake/diarrhea Follow up as scheduled with your GI doctor Schedule your mammogram anytime after 03/07- front end mechanic can help you schedule this Diverticulitis diet recommendations: DIETARY MODIFICATION AND SUPPLEMENTS In order to prevent recurrence, patients with a history of colonic diverticulitis should consume a high-fiber diet; however, they do not need to avoid seeds, corn, and nuts [4]. Patients should also refrain from chronic or excessive use of nonsteroidal anti-inflammatory drugs (NSAIDs) or aspirin unless prescribed for cardiovascular purposes. Further studies are required before mesalamine or other agents (eg, rifaximin, probiotics) can be recommended for prevention of recurrent diverticulitis [4]. ?Healthy lifestyle - Patients should be advised to lead a healthy lifestyle, which entails tobacco cessation, physical activities and weight loss, and reduced meat intake [37,38]. A high-fiber diet is also recommended once the acute phase of diverticulitis has resolved [39]. This recommendation is based upon observational studies that suggested long-term fiber supplementation may reduce the incidence of recurrent diverticulitis [40,41]. Indirect support for fiber supplementation also comes from studies that demonstrated the protective effect of a high-fiber diet on the development of diverticular disease [42]. However, although a healthy lifestyle has been shown to prevent the first episode of diverticulitis, its role in secondary prevention in patients who already had diverticulitis is uncertain [43,44]. ?Seeds, corn, and nuts - Patients with diverticular disease have historically been advised to avoid consuming seeds, corn, and nuts out of concern that undigested fragments of such food items could become lodged within the diverticulum and incite diverticulitis. However, this theory is completely unproven. In a large prospective study of 47,228 patients, nut, corn, and popcorn consumption did not increase the risk of developing diverticulitis or its associated complications (eg, bleeding) [45]. Thus, we do not counseling center manager patients with a history of diverticulitis against consuming seeds, corn, and nuts. ?Nonsteroidal anti-inflammatory drugs and aspirin - There is observational evidence that associated both NSAIDs and aspirin with diverticular bleed and complicated diverticulitis [46-48]. Although the association does not prove causation, it is generally advised for patients with a history of diverticulitis to avoid chronic or excessive use of NSAIDs or aspirin, with the exception of those who take aspirin for cardiovascular purposes [49]. ?Mesalamine - Based upon the theory that chronic inflammation plays a role in diverticulitis, anti-inflammatory agents, such as mesalamine, have been used to treat diverticulitis [50-54]. A 2017 Leonora systematic review and meta-analysis of seven randomized trials, however, found no evidence of an effect when comparing mesalamine with control for prevention of recurrent diverticulitis (31.3 versus 29.8 percent; relative risk 0.69, 95% CI 0.43-1.09; very low quality of evidence) [55]. Therefore, we do not suggest mesalamine to prevent recurrent diverticulitis [7,16,20]. There is even less evidence to support the use of other agents such as rifaximin [56] and probiotics [57]. documented in this encounter [facility] 01-19-2025 History of Presen t illness Narrative This is a 74 year old female who presents today with: ER follow up from diverticulitis HISTORY OF PRESENT ILLNESS: Nadja is a 74 year old with ulcerative colitis here for ER follow up as well as continued symptoms - ER 01/15, discharged with treatment for diverticulitis (cipro and flagyl) - 01/17 back to er per encouragement of turkey boner PCP for continued blood in stool, abdominal discomfort, and loose stools - Encouraged her to continue diverticulitis treatment, ordered a stool for cdiff which she has not submitted (wanted to wait until after she sees her GI doc in case he has other tests for her). - antibiotics continue which she feels is also likely the cause of her current issues with nausea and diarrhea after eating. - hasn't been able to eat a real meal or food, mostly applesauce things like that due to fear of diarrhea - drinking fluids - denies OTC meds, they gave her norco for pain at first ER visit, she took one dose and it caused her symptoms to worsen and that's when she went back to the hospital - improvement in stomach pain but just hasn't been able to get back to eating without diarrhea - denies fevers, chills, myalgia Obesity Weight overall stable, BMI 40 PAST MEDICAL HISTORY: PAST MEDICAL HISTORY Diagnosis [...] [Bupropion] MEDICATIONS Current Outpatient Medications Medication Sig nitrofurantoin monohydrate and macrocrystal (MACROBID) 100 mg capsule Take 1 capsule by mouth two times a day with meals for 7 days. losartan-hydroCHLOROthiazide (HYZAAR) 50-12.5 mg per [...] No Known Problems Paternal Grandfather Cancer Other SOCIAL HISTORY[1] REVIEW OF SYSTEMS See HPI EXAM: There were no vitals taken for this visit. PHYSICAL EXAM: General Appearance: Well appearing, alert, in no acute distress, well-hydrated, well nourished.. Lungs: Lungs clear to auscultation. No wheezing, rhonchi, rales.. Heart: RRR without murmur, gallop, or rubs. No ectopy. Abdomen: Normal abdominal exam, Abdomen soft, non-tender. Bowel sounds normal. No masses, organomegaly. ASSESSMENT/PLAN: 1. Diverticulitis of sigmoid colon - ICD9: 562.11, ICD10: K57.32 (primary diagnosis) 2. Hematochezia - ICD9: 578.1, ICD10: K92.1 - diagnosed and treated with the below x 7 days from [facility] - METRONIDAZOLE 500 MG TABLET - ONDANSETRON 4 MG DISINTEGRATING TABLET - CIPROFLOXACIN 500 MG TABLET\ 3. Acute diarrhea - ICD9: 787.91, ICD10: R19.7 -symptoms continue - METRONIDAZOLE 500 MG TABLET finish full course - DICYCLOMINE 10 MG CAPSULE start 20-30mins prior to meals to see if helps with symptoms related to eating - CIPROFLOXACIN 500 MG TABLETfinish full course 4. Nausea - ICD9: 787.02, ICD10: R11.0 - ONDANSETRON 4 MG DISINTEGRATING TABLET - DICYCLOMINE 10 MG CAPSULE 5. Abdominal discomfort - ICD9: 789.00, ICD10: R10.9 - HYDROCODONE 5 MG-ACETAMINOPHEN 325 MG TABLET- stop taking, caused further gi upset/pain - DICYCLOMINE 10 MG CAPSULE new order, educated on use and taking before meal 6. Other ulcerative colitis without complication (HCC) - ICD9: 556.8, ICD10: K51.80 - foillows up with GI doctor in [place] next month - note will be sent to him as communication of the issues she's having 7. Obesity, Class III, BMI >= 40 - ICD9: 278.01, ICD10: E66.813 Stable Unknown if current issue is actually a chronic exacerbation as well of her ulcerative colitis in combination with the diverticulitis. Discussed treatment plan and patient voices understanding. Patient's questions answered appropriately. Medications and potential side effects were discussed and patient voices understanding. Return to the office as scheduled or as needed for worsening/no improvement. Jean Carlos Brown APRN.STATIONS SUPERINTENDENT Recording using FLIP4NEW software for draft documentation of the visit was discussed with the patient/authorized arborist representative; all questions welcomed and answered. Patient/authorized arborist representative agreed to proceed [1] Social History Tobacco Use Smoking status: Former Current packs/day: 0.25 Average packs/day: 0.3 packs/day for 51.6 years (12.9 ttl pk-yrs) Types: Cigarettes Start date: 1973 Smokeless tobacco: Never Vaping Use Vaping status: Never Used Substance Use Topics Alcohol use: Not Currently Drug use: Never documented in this encounter [facility] 01-19-2025 Note [facility] 01-19-2025 Telephone encounter Note Agree with below. Thank you, Christina Anthony APRN.STATIONS SUPERINTENDENT [facility] 01-19-2025 Miscellaneous Notes Agree with below. Thank you, Christina Anthony APRN.STATIONS SUPERINTENDENT Patient calling in and reports she recently began Macrobid yesterday for E. Coli UTI. Reports she is now having loose stools, blood in her stools, constant abdominal pain, nausea, loss of appetite and feels very weak and very tired. She is not certain if she has a fever but denies sweating or chills. No dizziness/lightheadedness. Trying to stay hydrated as best as she can. Mild distress noted during call as patient was speaking. Pt does have history of colitis. Last flare was about 1.5 years ago. Pt is followed by Gastro, next appt is in January. Pt to see Urology 02/22/25. Due to current infection, multiple symptoms, urinary sx's lasting more than 2 weeks and severity of weakness, patient advised to be transported to local ED for evaluation. Pt agreeable. Mariya Sainz RN documented in this encounter [facility] 01-17-[address] [facility] 01-17-[address] Cordero, turkey boner - returned Brionna's call, and states patient needs to return to the ER, if pt is having severe diarrhea and unable to make it to the bathroom, she is probably dehydrated. Notified patient and patient agreeable to return to the ER. [facility] 01-17-[address] Cordero, turkey boner - returned Brionna's call, and states patient needs to return to the ER, if pt is having severe diarrhea and unable to make it to the bathroom, she is probably dehydrated. Notified patient and patient agreeable to return to the ER. Patient is calling c/o severe diarrhea after being placed on antibiotics for diverticulitis. PATIENT was seen in the [facility] ER on 01/15/25. Patient is having accidents, sh eis not able to make it to the bathroom in time since she started the antibiotics. Meds patient was placed on is Ciprofloxacin 500 mg twice daily and metronidazole 500 mg twice daily Please review and advise further. Brionna Akhtar LPN documented in this encounter [facility] 01-17-2025 Telephone encounter Note Patient is calling c/o severe diarrhea after being placed on antibiotics for diverticulitis. PATIENT was seen in the [facility] ER on 01/15/25. Patient is having accidents, sh eis not able to make it to the bathroom in time since she started the antibiotics. Meds patient was placed on is Ciprofloxacin 500 mg twice daily and metronidazole 500 mg twice daily Please review and advise further. Brionna Akhtar LPN [facility] 01-15-2025 Radiology Diagnostic study note [facility] Imaging Services [address] [place] [address] Abdomen/Pelvis W IV Cont ONLY MR#: [id number] Acct: [id number] Name: NADJA CHAUDHARI Rep #: [id number] : 1950 F 74 From: Osmel Mccormick MD PCP: Dr. Gray Quintana DO Status: RE G ER Study:Abdomen/Pelvis W IV Cont ONLY Date of E xam: 01/15/25 Exam# [id number] Ordering Dr: Linda Moya PROCEDURE: ABDOMEN/PELVIS W [...] Stable bilateral parapelvic renal cysts. Reading Location: [id number] CC: Dr. Gray Quintana DO; HENRI Morales ~ Technical Systems Architect: Signed [facility] 01-15-2025 Note [facility] 01-15-2025 History of Present illness Narrative [...] 2025 12:57 PM documented in this encounter [facility] 01-15-2025 Telephone encounter Note Patient calling in and reports she recently began Macrobid yesterday for E. Coli UTI. Reports she is now having loose stools, blood in her stools, constant abdominal pain, nausea, loss of appetite and feels very weak and very tired. She is not certain if she has a fever but denies sweating or chills. No dizziness/lightheadedness. Trying to stay hydrated as best as she can. Mild distress noted during call as patient was speaking. Pt does have history of colitis. Last flare was about 1.5 years ago. Pt is followed by mustapha Mcgovern appt is in January. Pt to see Urology 02/22/25. Due to current infection, multiple symptoms, urinary sx's lasting more than 2 weeks and severity of weakness, patient advised to be transported to local ED for evaluation. Pt agreeable. Mariya Sainz RN [facility] 01-15-2025 Telephone encounter Note Opened in error. [facility] 01-15-2025 Miscellaneous Notes Opened in error. documented in this encounter [facility] 01-14-2025 Telephone encounter Note Patient informed and verbalized understanding. Mili Segovia MA [facility] 01-14-2025 Miscellaneous Notes Patient informed and verbalized understanding. Mili Segovia MA Preliminary urine shows bacterial infection with E. Coli. Will start her on antibiotic. If I need to change based on susceptibility results will let her know. Madison Turner APRN.CNP documented in this encounter [facility] 01-14-2025 Telephone encounter Note Preliminary urine shows bacterial infection with E. Coli. Will start her on antibiotic. If I need to change based on susceptibility results will let her know. Madison Turner APRN.STATIONS SUPERINTENDENT [facility] 01-13-2025 Note [facility] 01-13-2025 History of Present illness Narrative [...] MORRO Sequeira PT documented in this encounter [facility] 01-12-2025 Instructions PodlogMadison blood APRN.STATIONS SUPERINTENDENT - 01/12/2025 1:27 PM EDT - I [...] up with urology on February 02 at [facility] for further evaluation of your bladder and incontinence. - Let us know if you need any assistance scheduling or if your appointment details change. documented in this encounter [facility] 01-12-2025 History of Present illness Narrative 01/12/2025 Patient presents with: UTI: Symptoms continue; burning and itching, frequency, retention Recording using FLIP4NEW software for draft documentation of the visit was discussed with the patient/authorized arborist representative; all questions welcomed and answered. Patient/authorized arborist representative agreed to proceed SUBJECTIVE: This is [...] Follow-up with urology on February 02 at [facility]. - Advised to monitor for fever or worsening symptoms and to report if they occur. Madison Podlogar, PIPELINES MANAGER.STATIONS SUPERINTENDENT Prescription instructions reviewed with patient as applicable. Patient advised if symptoms do not improve or if symptoms worsen sooner, to contact their primary care physician. Potential red flag symptoms discussed with the patient. Reviewed appropriate action plan to take if red flag symptoms occur. Patient agreeable to treatment plan. 70257 OVERALL COMPLEXITY Problem Complexity: Moderate Data Level: [...] test performed by another physician/other qualified health caretaker: - Discussion of management or test interpretation with external physician/other qualified health caretaker/appropriate source: Data complexity level: Limited; meets Category [...] Drug use: Never documented in this encounter [facility] 01-12-2025 Note [facility] 01-12-2025 Telephone encounter Note Reason for [...] on file. Protocols Used Urination Pain - [id number] [facility] 01-12-2025 Miscellaneous Notes Reason for Conversation urination [...] on file. Protocols Used Urination Pain - [id number] documented in this encounter [facility] 01-06-2025 Note [facility] 01-06-2025 History of Present illness Narrative [...] Time (minutes): 44 Session Start Time : 152 Session Stop Time : 161 MORRO Sequeira PT documented in this encounter [facility] 01-05-2025 Telephone encounter Note Patient was made aware of the results. Patient verbalizes understanding. Transferred to schedule Linda Beck Ma [facility] 01-05-2025 Miscellaneous Notes Patient was made aware [...] will consult urology. documented in this encounter [facility] 01-05-2025 Telephone encounter Note ----- Message from Yarely Tijerina sent at 12/30/2024 4:54 PM EDT ----- Please let patient know that there is no infection. Urine had some contaminants but no infection. She has had blood in her urine that has been present for the last 2 years. I will consult urology. [facility] 12-31-2024 Telephone encounter Note Left message to call and speak with nurse. [facility] 12-30-2024 Progress note Formatting of t his note might be different from the original. Please let patient know that there is no infection. Urine had some contaminants but no infection. She has had blood in her urine that has been present for the last 2 years. I will consult urology. [facility] 12-29-2024 Telephone encounter Note Patient returned telephone call with voicemail on 12/29/2024 at 1356. [facility] 12-29-2024 Miscellaneous Notes Patient returned telephone call with voicemail on 12/29/2024 at 1356. Patient contacted Pain Management with voicemail on 12/29/2024 at 1310 stating that she is currently being treated for a UTI with antibiotics. Patient requesting return telephone call at [phone]. Macrobid prescribed from 12/29/2024 - 01/01/2025. Attempted to contact patient via telephone without success. Left voicemail requesting return phone call. documented in this encounter [facility] 12-29-2024 Telephone encounter Note Patient contacted Pain Management with voicemail on 12/29/2024 at 1310 stating that she is currently being treated for a UTI with antibiotics. Patient requesting return telephone call at [phone]. Macrobid prescribed from 12/29/2024 - 01/01/2025. Attempted to contact patient via telephone without success. Left voicemail requesting return phone call. [facility] 12-29-2024 Instructions Yarely Tijerina APRN.CNP - 12/29/2024 11:03 AM EDT - Start [...] they are available. documented in this encounter [facility] 12-29-2024 Note [facility] 12-29-2024 History of Present illness Narrative [...] FFD / VERT SEG LUMBAR Laminectomy, lumbar REPAIR ROTATOR [...] as needed for worsening/no improvement. ADIS Arboleda, STATIONS SUPERINTENDENT documented in this encounter [facility] 12-29-2024 Note [facility] 12-29-2024 History of Present illness Narrative [...] 2024 9:18 AM documented in this encounter [facility] 12-23-2024 Note [facility] 12-23-2024 History of Present illness Narrative [...] THERAPY EVALUATION PLAN OF CARE: Assessment: Nadja Toney Chaudhari presents with chief complaint of L [...] Planned: 8 Planned Treatment Interventions: Therapeutic exercise (73593), Neuromuscular re-education (68135), Manual therapy (09347), Therapeutic activities (92564), Self-correction management (02302), Patient/Family/Caregiver Education, Body Mechanics Training PLAN FOR [...] States/Identifies TREATMENT: PT Treatment Interventions: Therapeutic Exercise, Self-Detention Management, Manual Therapy Evaluation Therapeutic Exercise: 1: [...] and assessment of patient's response to intervention. Self-Detention Management: 1: Reviewed imaging and discussed rehab [...] Stop Time : 1048 Jeffrey Hedrick PT Program_ID:[id number] Access Code: [email or web address] URL: [email or web address] Date: 12-23-2024 Prepared By: Jeffrey Hedrick Program [...] - 3 reps documented in this encounter [facility] 12-16-2024 Telephone encounter Note Patient notified of results and provider's instructions. Patient verbalizes understanding. Toni Santos LPN [facility] 12-16-2024 Miscellaneous Notes Patient notified of results and provider's instructions. Patient verbalizes understanding. Toni Santos LPN Xray elbow is normal. Xray of neck/back shows moderated to severe arthritis. Continue with Physical Therapy. documented in this encounter [facility] 12-16-2024 Telephone encounter Note Xray elbow is normal. Xray of neck/back shows moderated to severe arthritis. Continue with Physical Therapy. [facility] Work Phone: 12-15-2024 Telephone encounter Note Patient contacted by phone and informed of Dr. Lopez results and recommendations. Patient did not have any other questions or needs at this time.Tabby Collado RN [facility] 12-15-2024 Miscellaneous Notes Patient contacted by phone [...] 2024 10:44 AM documented in this encounter [facility] 12-11-2024 Telephone encounter Note Patient calling in asking about her results from her MRI that was completed on 11/11/24. She has not heard anything regarding the imaging. Please review and advise patient. Molly Payne December 11, 2024 10:44 AM [facility] 12-09-2024 Telephone encounter Note Pt notified of orders for PT. Pt transferred to PSS to schedule. Gianna Choudhury LPN [facility] 12-09-2024 Miscellaneous Notes Pt notified of orders for PT. Pt transferred to [facility] to schedule. Gianna Choudhury LPN Called and left message on patients voicemail to return call to the office and ask to speak with a triage nurse. Nereida Mckenna MA Please let [...] Mariya Sainz RN documented in this encounter [facility] 12-08-2024 Telephone encounter Note Called and left message on patients voicemail to return call to the office and ask to speak with a FM triage nurse. Nereida Mckenna MA [facility] 12-08-2024 Telephone encounter Note Please let patient know I have placed an order for PT. [facility] 12-08-2024 Telephone encounter Note Patient reports the Message Therapy order written for her by recent provider, will not be covered by insurance. She is asking if provider would be agreeable to placing a different type of therapy order for her, for her neck pain. Call pt with update. Mariya Sainz RN [facility] 12-04-2024 Note [facility] 12-04-2024 History of Present illness Narrative [...] FFD / VERT SEG LUMBAR Laminectomy, lumbar REPAIR ROTATOR [...] 50 MG-HYDROCHLOROTHIAZIDE 12.5 MG TABLET Jason Francois APRN.STATIONS SUPERINTENDENT documented in this encounter [facility] 12-03-2024 Telephone encounter Note Patient call in [...] other symptoms Protocols used: Neck Pain or [id number] [facility] 12-03-2024 Miscellaneous Notes Patient call in for [...] other symptoms Protocols used: Neck Pain or [id number]-AT documented in this encounter [facility] 11-25-2024 Note [facility] 11-25-2024 History of Present illness Narrative [...] 2024 3:17 PM documented in this encounter [facility] 11-25-2024 Telephone encounter Note Injection order signed off [facility] Work Phone: 11-25-2024 Miscellaneous Notes Injection order [...] injection order placed. documented in this encounter [facility] 11-25-[address] Mo reviewed [...] patient via telephone once injection order placed. [facility] 11-20-2024 History of Present illness Narrative Radiology [...] PATIENT PRESENTS WITH AN IMPLANTABLE OR ATTACHED ARMORED TRUCK DRIVER: No RADIOLOGY DEPARTMENT: MR; Exam(s) Completed: Spine: Lumbar spine. Aromatherapy Administered: No PERIPHERAL IV DATA: Not applicable SIGNED BY: Stephen Michele RT(R) November 20, 2024 1:14 PM documented in this encounter [facility] 11-20-2024 Note [facility] 11-18-2024 Instructions Dominick Hernandez APRN.CNP - 11/18/2024 12:11 PM EDT Continue Albuterol as needed. Please let us know if you feel symptoms start to worsen. I would recommend resuming Symbicort. Keep up with your efforts to lose weight! documented in this encounter [facility] 11-18-2024 History of Present illness Narrative Images from the original note were not included. Pulmonary Medicine Patients name: Nadja Chaudhari PCP: Gray Quintana DO CC: follow-up HPI: Nadja Chaudhari is a 74 year old female former less than 62-oazl-nwlh smoker quitting in 2021 with PMH significant [...] ED visits or upper respiratory infections. DME: Abel 2 L at night, no longer using [...] Oxide (ppb) 11/18/2024 12.0 NAME: Alexandra Soliz, HARDNESS INSPECTOR PATIENT NAME: Nadja Chaudhari DATE: November 18, [...] Neut (k/uL) Date Value 10/03/2024 3.09 Abs Emmons (k/uL) Date Value 10/03/2024 0.55 Abs Eosin [...] using nocturnal O2 and returned concentrator to [facility] [place]. - discussed risks of not using nocturnal [...] which included preparing to see the patient, susj-rv-mlkw patient care, completing clinical documentation, performing a medically appropriate examination, counseling and educating the patient/family/caregiver, and communicating results to the patient/family/caregiver. documented in this encounter [facility] 11-18-2024 Note [facility] 11-18-2024 Note [facility] 11-18-2024 Procedure note Associated Ord er(s): [...] DATE: November 18, 2024 TIME: 11:18 AM T [facility] 11-18-2024 Procedure note Associated Ord er(s): NITRIC [...] TIME: 11:18 AM documented in this encounter [facility] 11-11-2024 History of Present illness Narrative Radiology [...] PATIENT PRESENTS WITH AN IMPLANTABLE OR ATTACHED ARMORED TRUCK DRIVER: No ALLERGIES: Reviewed and unchanged CONTRAST ALLERGY: NO. EXAM: MRI - CONTRAST TYPE: GROUP II PERIPHERAL IV DATA: Ambulatory: A peripheral IV was started in the Left antecubital site with a Angio cath: 22 gauge. RADIOLOGY DEPARTMENT: MR; Exam(s) Completed: Body: Pancreas/Biliary. Lavender Administered: No SIGNATURE: RT Aishwarya(R) PATIENT NAME: Nadja Chaudhari DATE: November 11, 2024 TIME: 11:36 AM documented in this encounter [facility] 11-11-2024 Note [facility] 11-05-2024 Note [facility] 11-05-2024 History of Present illness Narrative Images from the original note were not included. [facility] Date: November 05, 2024 [...] therapy: She completed PT in 2022 at [facility] in [place] Patient Entered Questionnaires PROMIS Score Percentiles 10/24/2022 [...] Panel: No results found for: UQCANN, UQBNZL, COY2HCI, UQAMPH, UQMAMP, UQBUPRE, UQNORBUP, UQMTHD, UQEDDP, UQTRAM, [...] region (M54.16) - Lumbar spine X-rays from September show degenerative changes, including hypertrophic facets at [...] physician. November 05, 2024 cc: Gray Quintana [address] [facility] [id number] Results of consultation to be transmitted via electronic medical record for those providers who practice within [facility] or with access to [employer] via MD Connect, or via letter. documented in this encounter [facility] 10-30-2024 Note [facility] 10-30-2024 History of Present illness Narrative HISTORY AND PHYSICAL Nadja Chaudhari 1950 REFERRING PHYSICIAN: Gray Quintana DO CHIEF [...] fatty liver. She occasionally consumes hamburgers and uzbek fries without experiencing pain. She denies any [...] or immunosuppressive drugs but mentions that her manager demand, Dr. Dominique Chery, has discussed potential future treatments, including infusions. She has not received the shingles vaccine but acknowledges her manager demand's recommendation to do so. Nadja has a [...] pain. She is scheduled to see a painting department supervisor, Dr. Mo, for potential injections in her [...] FFD /2 VERT SEG LUMBAR Laminectomy, lumbar REPAIR ROTATOR [...] the note to Dr. Dorsey, the patient's manager demand, to keep him informed of the findings and plan. - Discussed that gallbladder surgery is not recommended at this time due to the absence of classic symptoms. 2. Nausea (R11.0) 3. Ulcerative colitis without complications, unspecified location (HCC) (K51.90) History of ulcerative colitis with previous flare-ups requiring prednisone. Currently not on mesalamine (Pentasa) due to gastrointestinal side effects. Watch Inspector Dr. Dorsey, is managing the condition and has recommended immunomodulatory therapy. - Advised patient to follow manager demand's recommendations, including immunomodulatory therapy. - Recommended shingles vaccination to prevent potential complications from immunosuppressive therapy. 4. Pulmonary emphysema, unspecified emphysema type (HCC) (J43.9) 5. Spinal stenosis of lumbar region, unspecified whether neurogenic claudication present (M48.061) Patient reports significant back and leg pain. Referred to Dr. Mo, a painting department supervisor at [facility], for evaluation and potential treatment. - Encouraged [...] instructed to follow-up with me as needed. Bri Moeller MD documented in this encounter [facility] 10-24-2024 Telephone encounter Note PATIENT NOTIFIED OF INFORMATION [facility] 10-24-2024 Miscellaneous Notes PATIENT NOTIFIED OF INFORMATION Message left to return call. ----- Message from Jean Carlos Brown APRN.STATIONS SUPERINTENDENT sent at 10/23/2024 3:48 PM EDT ----- Please let Nadja know her liver/gallbladder testing came back normal. Thank you documented in this encounter [facility] 10-24-2024 Telephone encounter Note Message left to return call. [facility] Work Phone: 10-24-2024 Telephone encounter Note ----- Message from Jean Carlos Brown APRN.STATIONS SUPERINTENDENT sent at 10/23/2024 3:48 PM EDT ----- Please let Nadja know her liver/gallbladder testing came back normal. Thank you [facility] 10-23-2024 History of Present illness Narrative RADIOLOGY [...] PATIENT PRESENTS WITH AN IMPLANTABLE OR ATTACHED ARMORED TRUCK DRIVER: n/a CREATININE: Creatinine Date Value Ref Range [...] 10:10 PATIENT DISCHARGED TO: Ambulatory patient, left IN department area. Is this a therapy: No A Diagnostic radioactive procedure has taken place, with no further precautions necessary other than routine body substance precautions. More information regarding radiation safety can be found using this link: [email or web address] SIGNATURE: RT Jennifer(R) PATIENT NAME: Nadja Chaudhari DATE: October 23, 2024 TIME: 10:42 AM PAGER/CONTACT #: documented in this encounter [facility] 10-23-2024 Note [facility] 10-22-2024 Telephone encounter Note Patient calling stating, she received a missed call from [facility], however, currently there is no notes, in epic. Reviewed patient's appointments, and informed patient she may have received a call, confirming her appointment scheduled for tomorrow 10/23/2024, since there are no notes from her provider in the chart. Patient denies any new or worsening symptoms of which a provider is not aware:Yes. Outcome: Patient verbalized understanding. [facility] 10-22-2024 Miscellaneous Notes Patient calling stating, she received a missed call from [facility], however, currently there is no notes, in epic. Reviewed patient's appointments, and informed patient she may have received a call, confirming her appointment scheduled for tomorrow 10/23/2024, since there are no notes from her provider in the chart. Patient denies any new or worsening symptoms of which a provider is not aware:Yes. Outcome: Patient verbalized understanding. documented in this encounter [facility] 10-09-2024 Miscellaneous Notes Patient calls and is [...] Gray Quintana DO documented in this encounter [facility] 10-09-2024 Telephone encounter Note Patient calls and is requesting results to be mailed out to her so that her daughter can read results. Address verified. Results mailed out as requested. Kasey Perez RN [facility] 10-09-2024 Telephone encounter Note Phoned patient went over results, notes from Dr Quintana with understanding. Assisted with transfer to flower cutter to get pain management, general surgery and HIDA scan appt set up. [facility] 10-09-2024 Miscellaneous Notes Phoned patient went over results, notes from Dr Quintana with understanding. Assisted with transfer to flower cutter to get pain management, general surgery and [...] Gray Quintana DO documented in this encounter [facility] 10-09-2024 Telephone encounter Note Phoned patient and went over results, notes from Dr Quintana with understanding. [facility] 10-08-2024 Telephone encounter Note See other TE Also please inform patient that labs and urine studies are overall normal Gray Quintana DO [facility] 10-08-2024 Telephone encounter Note Please inform patient [...] for consideration of injections Gray Quintana DO [facility] 10-06-2024 Note [facility] 10-03-2024 History of Present illness Narrative [...] PATIENT PRESENTS WITH AN IMPLANTABLE OR ATTACHED ARMORED TRUCK DRIVER: No RADIOLOGY DEPARTMENT: General X-ray: Exam(s) Completed: Spine X-Ray(s): Lumbar AP / LAT / L5-S1 Pelvis X-Ray: Pelvis with Hip Bilateral PERIPHERAL IV DATA: Not applicable SIGNED BY: RT Moriah(R) October 03, 2024 8:52 AM documented in this encounter [facility] 10-03-2024 Note [facility] 10-03-2024 Note [facility] 10-03-2024 History of Present illness Narrative [...] with more than 50% of the total gsqm-ss-dbvj time of the visit in counseling / coordination of care. To ER if develops chest pain, shortness of breath, or severe worsening of symptoms. Discussed risks, benefits, alternatives, and potential side effects of medications. Patient expressed understanding and agreed with the plan. Gray Quintana DO [address] [place] [address] documented in this encounter [facility] 09-23-2024 Instructions Williams Cabrera MD - 09/23/2024 [...] at a medical supply store or [facility]. Remove them at night. - Follow up [...] is important to follow up with your manager demand to ensure your condition is well-managed and to discuss whether you should restart your colitis medication. - Continue with the dietary changes you have made, as recommended by your manager demand. - Please consult your manager demand before taking any supplements, such as turmeric, as there is limited data on their effectiveness and safety. We discussed your cancer screenings: - Your last colonoscopy in March showed one benign polyp. Follow up with your manager demand for your next colonoscopy as scheduled. - Your mammogram last year was normal. No further action is needed at this time. Next steps: - Start wearing medical-grade compression stockings daily. - Follow up with your primary care physician for weight management, chronic leg pain, and possible referral to a spine clinic and/or joint specialist. - Schedule an appointment with your manager demand to discuss ulcerative colitis management and cancer screening follow-up. - Monitor for symptoms of blood clots and seek medical attention if symptoms worsen or new symptoms develop. Please let us know if you have any additional questions or concerns. documented in this encounter [facility] 09-23-2024 History of Present illness Narrative Images from the original note were not included. [facility] [place] [facility] Department of Cardiovascular Medicine SECTION [...] leg pain. The patient was admitted to [facility] 06/11-06/13 with chest pain, dyspnea, and leg [...] therapy. History of thrombosis: no History of CVA/TIA/MD: no History of known hypercoagulable state: no [...] as directed. Copd flare up, dyspnea, wheezing wanrszjhixp-oyv-AmjneS-[id number] (COSAMIN AVOCA, WITH BOSWELLIA,) 500-500-33.3-70 mg tab [...] 4.00 k/uL 2.59 3.20 2.81 2.94 Abs Emmons <0.87 k/uL 0.58 0.57 0.57 0.52 Abs [...] Plan: COMPRESSION STOCKINGS (Z68.41) BMI 40.0-44.9, adult ([facility]) (K51.919) Ulcerative colitis with complication, unspecified location ([facility]) 1. Personal history of DVT (deep vein thrombosis) (Z86.718) Likely provoked right gastrocnemius vein DVT 05/2024 in the setting of UC flare during fall of 2023. Initially with Eliquis for 30 days, then [...] chronic leg pain. 3. BMI 40.0-44.9, adult ([facility]) (Z68.41) Discussed obesity to be a factor likely contributing to leg pain and edema. - Advised on the importance of weight reduction for overall health and symptom improvement. - Recommended dietary modifications to reduce salt and sugar intake. - Referral to primary care physician for weight management support. 4. Ulcerative colitis with complication, unspecified location ([facility]) (K51.919) History of ulcerative colitis with last flare in February. Currently not taking prescribed medication, opting for natural remedies. Recent colonoscopy showed no active inflammation. - Emphasized the importance of regular follow-up with manager demand. - Discussed the increased risk of DVT associated with active ulcerative colitis. - Advised against self-treatment and to consult manager demand before making any changes to medication regimen. RTC PRN Williams Martinez MD CC: PCP: Gray Quintana [address] [place] [address] Referring Provider: Christina Anthony [address] [facility] [id number] documented in this encounter [facility] 09-23-2024 Note [facility] 09-11-2024 Telephone encounter Note Patient notified of results and provider's instructions. Patient verbalizes understanding. Kasey Perez RN [facility] 09-11-2024 Miscellaneous Notes Patient notified of results and provider's instructions. Patient verbalizes understanding. Kasey Perez RN TC patient, left message for patient to call back and speak with a triage nurse regarding results and provider instructions. Kasey Perez RN Please let her know that her kidney function blood testing looks good, no concerns. Amelia Trotter APRN.JAMI documented in this encounter [facility] 09-11-2024 Telephone encounter Note Patient has not been taking Coumadin per provider directions. There continues to be a standing order for INR labs that needs to be discontinued. Kasey Perez RN [facility] 09-11-2024 Miscellaneous Notes Patient has not been taking Coumadin per provider directions. There continues to be a standing order for INR labs that needs to be discontinued. Kasey Perez RN Why was INR drawn? I believe patient stopped taking warfarin. She does not need to INRs drawn anymore if so. Please confirm. Thank you, Christina Anthony APRN.STATIONS SUPERINTENDENT documented in this encounter [facility] 09-11-2024 Telephone encounter Note TC patient, left message for patient to call back and speak with a triage nurse regarding results and provider instructions. Kasey Perez RN [facility] 09-11-2024 Telephone encounter Note Why was INR drawn? I believe patient stopped taking warfarin. She does not need to INRs drawn anymore if so. Please confirm. Thank you, Christina Anthony APRN.STATIONS SUPERINTENDENT [facility] 09-11-2024 Telephone encounter Note Please let her know that her kidney function blood testing looks good, no concerns. Amelia Trotter APRN.JAMI [facility] Work Phone: 09-11-2024 Note [facility] 09-11-2024 History of Present illness Narrative [...] as directed. Copd flare up, dyspnea, wheezing odezygrcptq-qqc-NglnaO-bazd600 (COSAMIN AVOCA, WITH BOSWELLIA,) 500-500-33.3-70 mg tab [...] 03/07/2025 Influenza Vaccine(1) due on 11/24/2024 Covid-19 Vaccine(1 [...] Time: 3:58 PM documented in this encounter [facility] 08-15-2024 Telephone encounter Note PATIENT NOTIFIED OF SAME. [facility] 08-15-2024 Miscellaneous Notes PATIENT NOTIFIED OF SAME. Left message to return call Yoselin Hull MA No, if not taking coumadin she does not need INR checks anymore. Thank you, Christina Anthony APRN.JAMI Patient will be completing her 3 month [...] advise. Thank you. documented in this encounter [facility] 08-15-2024 Telephone encounter Note Left message to return call Yoselin Hull MA [facility] 08-15-2024 Telephone encounter Note No, if not taking coumadin she does not need INR checks anymore. Thank you, Christina Anthony APRN.STATIONS SUPERINTENDENT [facility] 08-15-2024 Telephone encounter Note Patient will be [...] Please call patient and advise. Thank you. [facility] 08-05-2024 Note HNO ID: [id number] Author: GRAY QUINTANA DO Service: ? Author Type: Physician Type: Progress Notes Filed: 08/05/2024 15:37 Note Text: Agree with below Gray Quintana DO [facility] 08-05-2024 History of Present illness Narrative Agree with below Gray Quintana DO patient had inr completed at [facility] patients inr is 2.0 (patients inr range [...] since dose change documented in this encounter [facility] 08-05-2024 Note [facility] 07-28-2024 Telephone encounter Note Spoke with pt gave information provided. Pt voices understanding. [facility] 07-28-2024 Miscellaneous Notes Spoke with pt gave information provided. Pt voices understanding. Please call patient and let her know that ultrasound results are negative -- no clots in R leg. No current and prior has resolved. Thank you, Christina Anthony APRN.STATIONS SUPERINTENDENT documented in this encounter [facility] 07-28-2024 Telephone encounter Note Please call patient and let her know that ultrasound results are negative -- no clots in R leg. No current and prior has resolved. Thank you, Christina Anthony APRN.STATIONS SUPERINTENDENT [facility] 07-28-2024 History of Present illness Narrative Radiology [...] PATIENT PRESENTS WITH AN IMPLANTABLE OR ATTACHED ARMORED TRUCK DRIVER: No RADIOLOGY DEPARTMENT: Ultrasound PERIPHERAL IV DATA: Not applicable SIGNED BY: Dolores Islas RDMS, RVT July 28, 2024 3:22 PM documented in this encounter [facility] 07-28-2024 Note HNO ID: [id number] Author: DOLORES ISLAS RT(R) Service: ? Author [...] PATIENT PRESENTS WITH AN IMPLANTABLE OR ATTACHED ARMORED TRUCK DRIVER: No RADIOLOGY DEPARTMENT: Ultrasound PERIPHERAL IV DATA: Not applicable SIGNED BY: Dolores Islas RDMS, RVT July 28, 2024 3:22 PM [facility] 07-28-2024 Telephone encounter Note Done at Appointment. [facility] Work Phone: 07-28-2024 Miscellaneous Notes Done at Appointment. Will assess at appointment today. Pt recently switched from eliquis to warfarin and is not yet therapeutic on warfarin dosage based on last PT INR. Can we look into STAT US of leg and see if there is any availability today either before or after appointment to get this going. Thank you, Christina Anthony APRN.STATIONS SUPERINTENDENT Pt called to report she was dx [...] Mai Campbell LPN documented in this encounter [facility] 07-28-2024 Instructions Christina Anthony APRN.JAMI - 07/28/2024 1:15 PM EST Supplement of CoQ10 documented in this encounter [facility] 07-28-2024 History of Present illness Narrative Chief [...] 1.1 -- not therapeutic yet. Going through [place] [facility]. Next INR check for 07/31. [...] as directed. Copd flare up, dyspnea, wheezing tqssakpturj-tbl-IygqeL-cosr217 (COSAMIN AVOCA, WITH BOSWELLIA,) 500-500-33.3-70 mg tab [...] Vaccine(1) due on 11/24/2024 Covid-19 Vaccine(1 - 2023- season) due on 04/30/2025 Shingrix [...] Patient agreeable to treatment plan. Christina Vega APRN.STATIONS SUPERINTENDENT [address] [place] [address] documented in this encounter [facility] 07-28-2024 Note [facility] 07-28-2024 Telephone encounter Note Will assess at appointment today. Pt recently switched from eliquis to warfarin and is not yet therapeutic on warfarin dosage based on last PT INR. Can we look into STAT US of leg and see if there is any availability today either before or after appointment to get this going. Thank you, Christina Anthony APRN.STATIONS SUPERINTENDENT [facility] 07-28-2024 Telephone encounter Note Pt called to [...] breathing issues, chest pain Mai Campbell LPN [facility] 07-25-2024 Telephone encounter Note Pt notified and verbalized understanding Natali Brian MA [facility] 07-25-2024 Miscellaneous Notes Pt notified and verbalized understanding Natali Brian MA Please call patient and let her know that lab work results look great. No concerns. Thank you, Christina Anthony APRN.STATIONS SUPERINTENDENT documented in this encounter [facility] 07-25-2024 Telephone encounter Note Please call patient and let her know that lab work results look great. No concerns. Thank you, Christina Anthony APRN.JAMI [facility] 07-24-2024 Telephone encounter Note Orders placed. Christina Anthony APRN.JAMI [facility] 07-24-2024 Miscellaneous Notes Orders placed. Christina Anthony APRN.JAMI Patient is a new patient to the [place] [facility] and we are needing new standing orders for testing. Orders have been pended for review and file if able. CC only needs called if orders cannot be filed. Thanks documented in this encounter [facility] 07-24-2024 Note HNO ID: [id number] Author: CHRISTINA ANTHONY APRN.CNP Service: ? Author Type: Nurse Practitioner Type: Progress Notes Filed: 07/24/2024 10:49 Note Text: Agree with recommendation as below. Thank you, Christina Anthony APRN.CNP [facility] 07-24-2024 History of Present illness Narrative Agree with recommendation as below. Thank you, Christina Anthony APRN.CNP patient had inr completed at [facility] patients inr is 1.1 (patients inr [...] agree with recommendation documented in this encounter [facility] 07-24-2024 Telephone encounter Note Patient is a new patient to the [place] [facility] and we are needing new standing orders for testing. Orders have been pended for review and file if able. CC only needs called if orders cannot be filed. Thanks [facility] 07-24-2024 Note [facility] 07-17-2024 Note [facility] 07-17-2024 History of Present illness Narrative POPULATION HEALTH NAVIGATION OUTREACH Action/FYI Spoke to Nadja scheduled wellness exam HCC [...] orders: Medicare Annual Wellness Visit 07/24/2024 in [facility] with [facility] - Acute deep vein thrombosis (DVT) of proximal vein of right lower extremity (HCC)... 09/23/2024 in [facility] with WILLIAMS CABRERA - Acute deep vein thrombosis (DVT) of proximal vein of right lower extremity (HCC). 11/18/2024 in [facility] with [facility] - Mild intermittent asthma without complication [J45.20] 11/18/2024 in PULM [facility] with DOMINICK HERNANDEZ - 6 month f/u 12/30/2024 in [facility] with GRAY QUINTANA - MEDICARE WELLNESS, [facility] HCC related Navigation Signature: Merari Barker MA July 17, 2024 9:47 AM documented in this encounter [facility] 07-16-2024 History of Present illness Narrative Chief [...] and is waiting to hear back from [facility] about possible coverage. Pt reports she keeps getting told by hospital that she needs to be on statin therapy. Pt refuses to orange picker medication. Pt does not want to [...] as directed. Copd flare up, dyspnea, wheezing vhvkvzqmqis-ked-BcotcX-orun761 (COSAMIN AVOCA, WITH BOSWELLIA,) 500-500-33.3-70 mg tab [...] patient set up with GIOVANNI Jimenez with [place] [facility]. Long discussion about the need [...] Patient agreeable to treatment plan. Christina Vega APRN.STATIONS SUPERINTENDENT [address] [place] [address] documented in this encounter [facility] 07-16-2024 Note [facility] 07-15-2024 Telephone encounter Note The following approved medication requests have been transmitted electronically. Requested Prescriptions Signed Prescriptions Disp Refills warfarin (COUMADIN) 5 mg tablet 30 tablet 1 Sig: Take 1 tablet by mouth once daily. Authorizing Provider: GRAY QUINTANA DO [facility] 07-15-2024 Miscellaneous Notes The following approved medication [...] was told total of 3 months. Per [facility] discharge summary: Acute DVT of R [...] as necessary. Please call patient with reply. [phone] (home) Mariya Sainz RN documented in this encounter [facility] 07-15-2024 Telephone encounter Note Pt notified. Please file order for coumadin. Then close encounter. Rosita Peraza MA [facility] 07-15-2024 Telephone encounter Note Noted, okay to [...] by mouth once daily. Gray Quintana DO [facility] 07-12-2024 Telephone encounter Note Patient calls [...] smaller supply until she here's back from [facility] as she prefers to stay on the Eliquis. Patient to call back Sunday to let us know if warfarin needs initiated. Nicki Farmer RN [facility] 07-12-2024 Miscellaneous Notes Patient calls to ask [...] Nicki Farmer RN documented in this encounter [facility] 07-12-2024 Telephone encounter Note Patient calling with request for Warfarin prescription. Patient denies any new or worsening symptoms of which a provider is not aware: Yes. Conferenced to Nurse Chawla at [facility] for further assistance. [facility] 07-12-2024 Miscellaneous Notes Patient calling with request for Warfarin prescription. Patient denies any new or worsening symptoms of which a provider is not aware: Yes. Conferenced to Nurse Chawla at [facility] for further assistance. documented in this encounter [facility] 07-11-2024 Telephone encounter Note Patient calls and states that she has not heard back from Social Security. Patient states that provider can send in other medication. Kasey Perez RN [facility] 07-10-2024 Telephone encounter Note Pt returned call and given provider's message below with verbalized understanding. [facility] 07-10-2024 Miscellaneous Notes Pt returned call and given provider's message below with verbalized understanding. Please call patient and let her know that lab work results look great. No concerns. Take care, Christina Anthony APRN.CNP documented in this encounter [facility] 07-10-2024 Telephone encounter Note She was told total of 3 months. Per [facility] discharge summary: Acute DVT of R gastrocnemius vein: does not involve popliteal vein or proximal vein. Hx of UC and morbid obesity which puts her at risk for DVT, therefore full anticoagulation was started. Prescribed Eliquis 10 mg BID for 1 week, till 06/19/24 and then 5 mg BID to continue for total of 3 months Christina Anthony APRN.STATIONS SUPERINTENDENT [facility] 07-09-2024 Telephone encounter Note Okay for her to convert to Warfarin. When is she supposed to be treated until? Gray Quintana DO [facility] 07-09-2024 Telephone encounter Note Pt called back to ask provider to wait until Sunday to order anything, as patient wants to see if she hears from Social Security first. See below message also. [facility] 07-09-2024 Telephone encounter Note Patient continues [...] as necessary. Please call patient with reply. [phone] (home) Mariya Sainz RN [facility] 07-09-2024 Telephone encounter Note Please call patient and let her know that lab work results look great. No concerns. Take care, Christina Anthony APRN.JAMI [facility] 07-04-2024 Telephone encounter Note Noted. Thank you, Christina Anthony APRN.STATIONS SUPERINTENDENT [facility] 07-04-2024 Miscellaneous Notes Noted. Thank you, Christina Anthony APRN.STATIONS SUPERINTENDENT Sw asked patient if she was able to go and orange picker Eliquis and pay $500. Patient states no, I have not paid for any Eliquis. I am still using my free supply that I received when I was in the hospital. I think I have about a week to a week and half of medication. Sw noted that she had wanted to check in with patient as [employer] PAP has a 3% out of pocket [...] SSA on Extra Help but will call JOES Vasquez and or Dr. Quintana before she [...] patient to manage. Thank you, Christina Anthony APRN.STATIONS SUPERINTENDENT Patient could ask her pharmacy how much xarelto would be with her insurance. Sw looked at [employer] P[employer] and they have a higher out of pocke expenditure at the pharmacy then [employer] [employer], so that will not work at [...] patient. Thank you. documented in this encounter [facility] 07-04-2024 Telephone encounter Note Sw asked patient if she was able to go and orange picker Eliquis and pay $500. Patient states no, I have not paid for any Eliquis. I am still using my free supply that I received when I was in the hospital. I think I have about a week to a week and half of medication. Sw noted that she had wanted to check in with patient as [employer] PAP has a 3% out of [...] Help for help with cost of medication. Rupa noted to let JOSE Vasquez and or [...] Quintana before she is out of medication. [facility] 07-03-2024 Telephone encounter Note Called pt she states this has already been taken care of has appoints set up for both. [facility] 07-03-2024 Miscellaneous Notes Called pt she states [...] placed, please schedule. Thank you, Christina Anthony APRN.STATIONS SUPERINTENDENT To Christina to review I didn't see her for this concern Gray Quintana DO Patient called said she was in [facility] for a blood clot and already had a follow up Patient asking if she should see a vascular provider? Patient states her leg still hurts a little bit and also having lower back pain. Patient asked if that is caused from the blood thinner Please advise documented in this encounter [facility] 07-03-2024 Telephone encounter Note Sw called and [...] needs to pursue PAP assistance with Eliquis. [facility] 07-03-2024 Telephone encounter Note No PA was [...] insurance to check the coverage and cost. [facility] 07-02-2024 Telephone encounter Note Can we have our prior auth department look into this and see if there is ANY other option that could be cheaper besides starting patient on warfarin. As warfarin will be too hard for patient to manage. Thank you, Christina Anthony APRN.CNP [facility] 06-28-2024 Telephone encounter Note 2nd attempt,Called patient LVM to call back to schedule Consult to Vascular as well as appt with Raj [facility] 06-26-2024 Telephone encounter Note Patient could ask her pharmacy how much xarelto would be with her insurance. Sw looked at xarelto-Jennifer PAP and they have a higher out of pocke expenditure at the pharmacy then [employer] [employer], so that will not work at the moment. [facility] 06-26-2024 Telephone encounter Note Will Xarelto be cheaper and easier to get assistance for? Or do we need to switch to warfarin. Christina Anthony APRN.JAMI [facility] 06-26-2024 Telephone encounter Note Patient calling [...] 2 weeks. Please advise patient. Thank you. [facility] 06-26-2024 Telephone encounter Note 1st attempt - left message to return call. When she calls, please schedule Vascular Medicine Consult. Kasey Calvin [facility] 06-25-2024 Telephone encounter Note Pt informed. Pt reports she has chronic pain. Please schedule vascular. Yoselin Hull MA [facility] 06-25-2024 Telephone encounter Note Blood thinner should not be causing back pain. She was not complaining of this at appointment. Needs appointment to assess. I agree with vascular consult -- especially to determine length of blood thinner treatment. 3 months vs chronic. Consult placed, please schedule. Thank you, Christina Anthony APRN.STATIONS SUPERINTENDENT [facility] 06-25-2024 Telephone encounter Note To Christina to review I didn't see her for this concern Gray Quintana DO [facility] 06-25-2024 Note [facility] 06-25-2024 History of Present illness Narrative [...] cost concerns. Patient reports that she called [facility] pharmacy and they report that they do not have Eliquis prescription at [facility] pharmacy. They only had patient starter pack that patient has been on. Patient reports that she has about 2 weeks and possibly a day left of Eliquis. Patient reports that she thought she was to be continuing on medication, but not sure as to how long she is going to be on medication. Sw and patient reviewed her income and [employer] P[employer] out of pocket 3% expenditure on medications. This would be about $900. With the new starting patient feels like she has only spent maybe at couple of dollars if that at the pharmacy. Patient also notes that she spoke with [employer] and was told that they do not have any funding right now for prescription help. Patient and Sw called [employer] and they are mailing out Extra Help application to patient to work on and take back to [employer] to see about Extra Help Medicare Assistance for help with part d prescription costs. documented in this encounter [facility] 06-25-2024 Note [facility] 06-25-2024 History of Present illness Narrative [...] mouth two times a day. Christina Anthony APRN.JAMI documented in this encounter [facility] 06-25-2024 Note [facility] 06-23-2024 Telephone encounter Note Patient called said she was in [facility] for a blood clot and already had a follow up Patient asking if she should see a vascular provider? Patient states her leg still hurts a little bit and also having lower back pain. Patient asked if that is caused from the blood thinner Please advise [facility] Work Phone: 06-18-2024 Telephone encounter Note Noted. Thank you for update and for looking into this for her. Thank you, Christina Anthony APRN.STATIONS SUPERINTENDENT [facility] 06-18-2024 Miscellaneous Notes Noted. Thank you for update and for looking into this for her. Thank you, Christina Anthony APRN.STATIONS SUPERINTENDENT Patient and Sw spoke regarding Eliquis cost. Patient notes that she is not sure if her insurance covers medication. Patient reports that she will check with prescription part d plan and see if it will cover Eliquis and if so what will be the cost to patient. Sw noted that [employer] has a PAP program. There are [...] Sw number to reach back out to Sw with questions or further assistance needs. documented in this encounter [facility] 06-18-2024 Telephone encounter Note Patient and Sw spoke regarding Eliquis cost. Patient notes that she is not sure if her insurance covers medication. Patient reports that she will check with prescription part d plan and see if it will cover Eliquis and if so what will be the cost to patient. Sw noted that [employer] has a PAP program. There are [...] Sw number to reach back out to Sw with questions or further assistance needs. [facility] 06-18-2024 History of Present illness Narrative Chief Complaint Patient presents with: [facility] f/up for b/p HPI Nadja Chaudhari is a 74 year old female who presents here today for Above Complaints. Nadja is an established patient of Dr. Mariano DO. Concerns today... Hospital follow-up --- [facility] admission from 06/11-06/13 d/t CP, bilateral [...] as directed. Copd flare up, dyspnea, wheezing sdhhfjehmyr-wuj-OpbitR-[id number] (COSAMIN AVOCA, WITH BOSWELLIA,) 500-500-33.3-70 mg tab [...] -- will reach out to our social secretary, Alexandra, for assistance with cost. 2. Acute [...] - HOME SLEEP APNEA TEST (HSAT) 6. NEVA (obstructive sleep apnea) - ICD9: 327.23, [...] agreeable to treatment plan. Christina Vega APRN.JAMI [address] [place] [address] documented in this encounter [facility] 06-18-2024 Note [facility] 06-16-2024 Note HNO ID: [id number] Author: GRAY QUINTANA DO Service: ? Author Type: Physician Type: Progress Notes Filed: 06/16/2024 08:02 Note Text: Patient has appt with Christina on 06/18 Gray Quintana DO [facility] 06-16-2024 History of Present illness Narrative Patient has appt with Christina on 06/18 Gray Quintana DO TRANSITION CARE MANAGEMENT (TCM) INITIAL CONTACT Repairer [employer] Outreach Provider Action/FYI: Patient was seen at [facility] and admitted on 06/11/2024 for chest pain, high blood pressure, and DVT Right lower Leg. Patient was discharged from hospital on 06/13/2024. Initial contact with patient post discharge, spoke to patient. Patient identified by name and . TRANSITION CARE MANAGEMENT INITIAL OUTREACH DOCUMENTATION: 06/14/2024 Date of Outreach: Outreach Attempt 1: Contact Not Made Date of Discharge 06/13/2024 SUMMARY: -Pt discharged from [facility] on 06/13/2024. -Admitted for: Chest Pain, [...] hospitalization: Care Everywhere documented in this encounter [facility] 06-14-2024 Note [facility] 06-14-2024 Telephone encounter Note Patient call in for fatigue/tiredness. Patient had woke up sweaty this morning. Patient took her temperature. Patient currently has no temp. Patient was just discharged from [facility] on 06/13/2024 with diagnosis of DVT [...] that she was just recently discharged from [facility] with Blood Clot in right leg [...] other symptoms Protocols used: Weakness (Generalized) and Bpelbxc-QZFHB-MF [facility] 06-14-2024 Miscellaneous Notes Patient call in for fatigue/tiredness. Patient had woke up sweaty this morning. Patient took her temperature. Patient currently has no temp. Patient was just discharged from [facility] on 06/13/2024 with diagnosis of DVT [...] that she was just recently discharged from [facility] with Blood Clot in right leg [...] other symptoms Protocols used: Weakness (Generalized) and Sgjhauf-MUCTU-NK documented in this encounter [facility] 06-13-2024 Note [facility] Medical Records Department [address] [place] [id number] Discharge Summary 06/13/24 0928 MR#: [id number] Acct: [id number] Name: NADJA CHAUDHARI Rep #: [id number] : [id number] 74 From: Louie Dias MD PCP: Dr. Gray Quintana, Status:ADM RICKEY Location: [place] [address] Providers Date of Admission: 06/11/24 Date of [...] Inflammatory bowel disease, ulcerative -Follows in [facility] -States she has been on several bouts [...] smoking or o (more content not included)... [facility] 06-11-2024 Note [facility] 06-11-2024 History of Present illness Narrative [...] take her self. documented in this encounter [facility] 06-11-2024 Telephone encounter Note Agree with below Gray Quintana DO [facility] 06-11-2024 Miscellaneous Notes Agree with below Gray [...] Piedad Heard LPN documented in this encounter [facility] 06-11-2024 Telephone encounter Note Spoke with patient. [...] and agrees to plan. Brenda Roe LPN [facility] 06-11-2024 Telephone encounter Note Patient called in stating that she notice a lump in center of chest yesterday 06/10/2024 that is painful to touch. Patient rates tender pain 5 out of 10 on pain scale. Patient questions if she should continue with oxygen. Please advise. Piedad Heard LPN [facility] Work Phone: 05-26-2024 History of Present illness Narrative Images from the original note were not included. . [facility] [place] Note Patient name: Nadja Chaudhari PCP: Gray Quintana DO CC: Nocturnal hypoxemia, asthma COPD overlap HPI: Nadja Chaudhari 74 year old female former less than 17-vdql-zzhu smoker quitting in 2021 with PMH significant [...] 500 mg by mouth four times daily. jbrvugupwtd-wdu-LlokkC-[id number] (COSAMIN AVOCA, WITH BOSWELLIA,) 500-500-33.3-70 mg tab [...] weight loss advised Yan Montaño MD [facility] [place] documented in this encounter [facility] 05-26-2024 Note [facility] 05-16-2024 Telephone encounter Note Pt. informed. [facility] Work Phone: 05-16-2024 Miscellaneous Notes Pt. informed. [...] Kasey Perez RN documented in this encounter [facility] 05-16-2024 Telephone encounter Note She is okay to stop gabapentin medication since on a low dose Gray Quintana DO [facility] 05-16-2024 Telephone encounter Note Patient calls and [...] Please review and advise, Kasey Perez RN [facility] 04-30-2024 History of Present illness Narrative Chief [...] over the past few months. 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 Copd flare up, dyspnea, wheezing tppdexhuapp-shl-QvocpS-[id number] (COSAMIN AVOCA, WITH BOSWELLIA,) 500-500-33.3-70 mg tab [...] Covid-19 Vaccine( - season) due on 04/30/2025 Depression Screening [...] Patient agreeable to treatment plan. Christina Vega APRN.STATIONS SUPERINTENDENT [address] [place] [address] documented in this encounter [facility] 04-30-2024 Note [facility] 04-29-2024 Telephone encounter Note Pt notified. Started asking questions about what to do with her swelling of her legs and her kidneys and that she doesn't want to be on any medications, doesn't want to use the Lasix. I advised her that with those concerns she would need to follow with her PCP. Transferred to flower cutter to set up appt with PCP. Rosita Peraza MA [facility] 04-29-2024 Miscellaneous Notes Pt notified. Started asking questions about what to do with her swelling of her legs and her kidneys and that she doesn't want to be on any medications, doesn't want to use the Lasix. I advised her that with those concerns she would need to follow with her PCP. Transferred to flower cutter to set up appt with PCP. Rosita [...] for review. Please call patient with update. [phone] Thank you. documented in this encounter [facility] 04-29-2024 Telephone encounter Note With the low dose of gabapentin that she was given I think that is the safest medication for her to use, especially if it was effective. Martín Winslow MD [facility] 04-28-2024 Telephone encounter Note Patient of Dr. Quintana'gee calling and states she was seen by [...] for review. Please call patient with update. [phone] Thank you. [facility] 04-26-2024 History of Present illness Narrative Chief Complaint Patient presents with: Back Pain HPI Nadja Chaudhari is a 74 year old female who presents here today for a same day visit. Established pt of Dr. Ling, new to this office here today for [...] as directed. Copd flare up, dyspnea, wheezing kkalkdlcpmz-oxa-[id number] (COSAMIN AVOCA, WITH BOSWELLIA,) 500-500-33.3-70 mg tab [...] Influenza Vaccine(1) due on 01/27/2024 Covid-19 Vaccine( - season) Never done RSV Vaccine(1 - Risk [...] Martín Winslow MD documented in this encounter [facility] 04-26-2024 Note [facility] 04-26-2024 Telephone encounter Note Protocol recommends [...] urine. 11. : Postmenopausal Protocols used: Back Aoug-JVZGY-VR [facility] 04-26-2024 Miscellaneous Notes Protocol recommends see provider [...] urine. 11. : Postmenopausal Protocols used: Back Qujd-OJGSZ-QT documented in this encounter [facility] 04-04-2024 Telephone encounter Note Call received from [...] Townsend RN April 04, 2024 8:56 AM [facility] 04-04-2024 Miscellaneous Notes Call received from Pt [...] 2024 8:56 AM documented in this encounter [facility] 03-24-2024 Telephone encounter Note Images from the [...] 2L at that time. Brenda Roe LPN [facility] 03-24-2024 Miscellaneous Notes Images from the original [...] resolve. She is awaiting a humidifer from [employer] for her concentrator, but she is concerned if the chest discomfort may be indicative of over oxygenation vs. a dry environment? Currently using 2L. She is using Arnold nasal gel to help with dry nasal passages. Brenda Roe LPN documented in this encounter [facility] 03-21-2024 Telephone encounter Note Patient calling and reports she noticed last night when she woke up she felt chest discomfort that went into her back like my lungs were aching. She has not experienced this previously since starting the oxygen two weeks ago. Symptoms did resolve. She is awaiting a humidifer from her [employer] for her concentrator, but she is concerned if the chest discomfort may be indicative of over oxygenation vs. a dry environment? Currently using 2L. She is using Arnold nasal gel to help with dry nasal passages. Brenda Roe LPN [facility] 03-19-2024 Telephone encounter Note Order signed. Neha [facility] Work Phone: 03-19-2024 Miscellaneous Notes Order signed. Neha Patient is asking for order for humidifier for home O2 concentrator. [facility] preferred DME. Pended. Brenda Roe LPN documented in this encounter [facility] 03-19-2024 Telephone encounter Note Patient is asking for order for humidifier for home O2 concentrator. [employer] preferred DME. Pended. Brenda Roe LPN [facility] 03-17-2024 Telephone encounter Note Pt called and notified of results below. Verbalized understanding. Nereida Mckenna MA [facility] 03-17-2024 Miscellaneous Notes Pt called and notified of results below. Verbalized understanding. Nereida Mckenna MA Left message to return call Yoselin Hull MA Please let her know that her mammogram shows no concerns, recommend continuing to follow up yearly with screening mammogram. Amelia Trotter APRN.JAMI documented in this encounter [facility] 03-14-2024 Telephone encounter Note Patient called in [...] Sp02 drops with exercise. Tina Yee LPN [facility] 03-14-2024 Miscellaneous Notes Patient called in and [...] Tina Yee LPN documented in this encounter [facility] 03-13-2024 Telephone encounter Note Left message to return call Yoselin Hull MA [facility] 03-13-2024 Telephone encounter Note Please let her know that her mammogram shows no concerns, recommend continuing to follow up yearly with screening mammogram. Amelia Trotter APRN.STATIONS SUPERINTENDENT [facility] Work Phone: 03-13-2024 Telephone encounter Note Pt informed Yoselin Hull MA [facility] 03-13-2024 Miscellaneous Notes Pt informed Yoselin Hull MA Please inform patient that her bone density shows IMPRESSION: THE LOWEST T-SCORE IS -1.2 IN THE RIGHT HIP 1) DIAGNOSIS (based on BMD alone): OSTEOPENIA BMD is showing some beginning bone mass loss (osteopenia), which may increase the risk of insufficiency fractures. I suggest 4635-5290 mg of Calcium citrate into 2 doses daily as well as 1000 units of Vitamin D3 daily. Weight bearing exercise, if not already doing, and f/u exam in 2 years for bone density. Gray Quintana DO documented in this encounter [facility] 03-13-2024 Telephone encounter Note Please inform patient that her bone density shows IMPRESSION: THE LOWEST T-SCORE IS -1.2 IN THE RIGHT HIP 1) DIAGNOSIS (based on BMD alone): OSTEOPENIA BMD is showing some beginning bone mass loss (osteopenia), which may increase the risk of insufficiency fractures. I suggest 5081-1105 mg of Calcium citrate into 2 doses daily as well as 1000 units of Vitamin D3 daily. Weight bearing exercise, if not already doing, and f/u exam in 2 years for bone density. Gray Quintana DO [facility] 03-11-2024 Telephone encounter Note Pt informed Yoselin Hull MA [facility] 03-11-2024 Miscellaneous Notes Pt informed Yoselin Hull [...] Gray Quintana DO documented in this encounter [facility] 03-11-2024 Telephone encounter Note Please call patient and make sure that she is aware that her recent previous labs show that her A1c was up at 5.7% which is in the prediabetes range. Needs to continue to work on cutting back on sugars and starches in her diet. Need for increased exercise and weight loss as well Gray Quintana DO [facility] 03-07-2024 History of Present illness Narrative Radiology [...] PATIENT PRESENTS WITH AN IMPLANTABLE OR ATTACHED ARMORED TRUCK DRIVER: No RADIOLOGY DEPARTMENT: Bone Density PERIPHERAL IV DATA: Not applicable SIGNED BY: RT Elisa(R) March 07, 2024 12:53 PM documented in this encounter [facility] 03-07-2024 Note [facility] 02-25-2024 Instructions Yan Montaño MD - 02/25/2024 1:23 PM EDT Overnight oximetry test to be scheduled documented in this encounter [facility] 02-25-2024 History of Present illness Narrative Images from the original note were not included. . [facility] [place] Note Patient name: Nadja Chaudhari PCP: Gray Quintana DO Referring Physician: same Consultation requested by Dr. Quintana for an opinion regarding COPD. My final recommendations will be communicated back to the requesting physician by way of shared Medical record or letter to requesting physician via US mail. CC: COPD HPI: Nadja Chaudhari 73 year old female former average 1/4 PPD smoker for 50 years, quitting in [...] steroids or antihistamines. She previously followed with [facility] with initial evaluation in 2019 [...] 64 Imaging / Diagnostic Studies: CTA chest [facility] 11/2023: Chest CT 2022: PAST MEDICAL [...] as directed. Copd flare up, dyspnea, wheezing uqpbffmvvbm-ktq-MqtvcY-ylms278 (COSAMIN AVOCA, WITH BOSWELLIA,) 500-500-33.3-70 mg tab Take 1 tablet by mouth twice daily as needed. Social History Tobacco Use Smoking status: Former Average packs/day: 0.3 packs/day for 48.0 years (12.0 ttl pk-yrs) Types: Cigarettes Start date: 1973 Smokeless tobacco: Never Substance Use Topics Alcohol use: Yes Drug use: No Worked at [employer] Pets: cat FAMILY HISTORY Problem Relation Age [...] 3. Former cigarette smoker -Former less than 74-qoxy-zylu smoker -Does not qualify for lung cancer screening based on amount of smoking history 4. Morbid obesity -Morbid obesity is the most likely etiology for her heavy breathing -Weight loss advised 5. Lung nodules -Multiple pulmonary nodules stable at least for 1 year -Will need surveillance for 2 years. Previous report from CT dated 2004 would suggest nodules are chronic and stable but images are unavailable for comparison Yan Montaño MD Respiratory [place] documented in this encounter [facility] 02-25-2024 Note [facility] 02-25-2024 Nurse Note Intake information documented in the prior visit with ESTHER Koenig today. [facility] 02-25-2024 Nurse Note Intake information documented in the prior visit with ESTHER Koenig today. documented in this encounter [facility] 02-25-2024 Note [facility] 02-25-2024 History of Present illness Narrative PULM FUNCTION: Provider: Carolyn Ramirez APRN.STATIONS SUPERINTENDENT Assisting Tech: Meghana Ho RPFT Spirometry: 1 DLCO: 1 LV - Box: 1 documented in this encounter [facility] 02-05-2024 Evaluation + Plan note Diagnostic Tests PendingHepatitis A Antibody IgG 02/05/24ep B Core Ab, Tot 02/05/24ep Be Ag 02/05/24QFT-TB Plus (Client Incubated) 02/05/24 [facility] 01-23-2024 Instructions Gray Quintana DO - [...] usual activities immediately. documented in this encounter [facility] 01-23-2024 History of Present illness Narrative CC: Nadja Chaudhari is a 73 year old female who presents to the office for follow up HPI: Colitis was recently flared up again and she was restarted on prednisone. Seeing Watch Inspector Dr. Dorsey specialist. Was on Mesalamine in [...] as directed. Copd flare up, dyspnea, wheezing arhmmuyfdeq-tgw-RtzacX-bjqn823 (COSAMIN AVOCA, WITH BOSWELLIA,) 500-500-33.3-70 mg tab [...] with supplements or by diet (goal of 8236-0469 mg/day - [facility] SCREENING 3. Asymptomatic postmenopausal status - ICD9: [...] ICD10: K51.90 See HPI Follow up with Watch Inspector Prednisone recently given for colitis flare up [...] plan. See patient instructions. Gray Quintana DO [address] [place] [address] documented in this encounter [facility] 12-07-2023 Telephone encounter Note Pt notified. She verbalized understanding. Rickey Delgado LPN [facility] 12-07-2023 Miscellaneous Notes Pt notified. She verbalized [...] ortho for further evaluation/treatment. Carolyn Ramirez APRN.JAMI documented in this encounter [facility] 12-07-2023 Telephone encounter Note Can please let [...] ortho for further evaluation/treatment. Carolyn Ramirez APRN.JAMI [facility] 12-05-2023 Telephone encounter Note Noted. Agree w/ plan. Passport complete. Carolyn Ramirez APRN.CNP [facility] 12-05-2023 Miscellaneous Notes Noted. Agree w/ plan. Passport complete. Carolyn Ramirez APRN.JAMI Pt is going to go to the [place] ER. Decided not to wait for the CT at 4 at [place]. Patient called and notified of results and [...] Kasey Perez RN Patient was transferred to [facility] from triage nurse. Patient was offered same day appointments for CT scan at either [place] or [place]. She needs to discuss with daughter in order to have transportation. She will call back to schedule once she has transportation. D. Dimer was elevated. Because this can be indicative of a blood clot, she needs to go to the ER for further evaluation to rule out a blood clot! Carolyn Ramirez APRN.STATIONS SUPERINTENDENT documented in this encounter [facility] 12-05-2023 Telephone encounter Note Pt is going to go to the [place] ER. Decided not to wait for the CT at 4 at [place]. [facility] Work Phone: 12-05-2023 Telephone encounter Note Patient [...] patient scheduled for 12/06/2023. Kasey Perez RN [facility] 12-05-2023 Telephone encounter Note Patient was transferred to [facility] from triage nurse. Patient was offered same day appointments for CT scan at either [place] or [place]. She needs to discuss with daughter in order to have transportation. She will call back to schedule once she has transportation. [facility] 12-05-2023 Telephone encounter Note D. Dimer was elevated. Because this can be indicative of a blood clot, she needs to go to the ER for further evaluation to rule out a blood clot! Carolyn Ramirez APRN.JAMI [facility] 12-04-2023 Telephone encounter Note Noted patient notified. Brionna Akhtar LPN [facility] 12-04-2023 Miscellaneous Notes Noted patient notified. Brionna Akhtar LPN Order is in. Carolyn Ramirez APRN.STATIONS SUPERINTENDENT Patient stated that she strained a muscle [...] be without contrast? Patient saw Carolyn Ramirez SUPERVISOR YARD yesterday and she ordered the test to check for PE. Pt is concerned about her CT scheduled for 12/05 she wants to make sure that it is NOT with IVCON. Please advise and call patient regarding test. Thank you documented in this encounter [facility] 12-04-2023 Telephone encounter Note Order is in. Carolyn Ramirez APRN.JAMI [facility] 12-04-2023 Telephone encounter Note Patient stated that she strained a muscle in the arm which she said it played a part in hurting to breath. Patient stated that it hurt to breath. Patient stated currently she said it is not as tight when she breaths in. Patient did agree to getting blood work to check for blood clot. Please advise Brionna Akhtar LPN [facility] 12-04-2023 Telephone encounter Note The CT is [...] proceed to the ER to be evaluated. [facility] 12-04-2023 Telephone encounter Note Patient states she [...] abdomen. Please advise. Thank you. DARREN Wagner [facility] 12-04-2023 Telephone encounter Note When evaluating for blood clots, the CT is done with contrast. Is there a concern with contrast? If it is renal function, her kidney function is adequate to proceed, she will just want to hydrate well after the CT to flush it out. [facility] 12-04-2023 Telephone encounter Note Phoned patient left message to return call and ask to speak to a nurse. Phoned patient to ask why CT needs to be without contrast? Patient saw Carolyn Ramirez SUPERVISOR YARD yesterday and she ordered the test to check for PE. [facility] 12-04-2023 Telephone encounter Note Pt is concerned about her CT scheduled for 12/05 she wants to make sure that it is NOT with IVCON. Please advise and call patient regarding test. Thank you [facility] 12-03-2023 History of Present illness Narrative Radiology [...] PATIENT PRESENTS WITH AN IMPLANTABLE OR ATTACHED ARMORED TRUCK DRIVER: No RADIOLOGY DEPARTMENT: General X-ray: Exam(s) Completed: Upper Extremity X-Ray(s): Shoulder, AP / TRUE AP / SUPRA OUTLET right PERIPHERAL IV DATA: Not applicable SIGNED BY: RT Valentino(R) December 03, 2023 4:46 PM documented in this encounter [facility] 12-03-2023 Instructions Carolyn Ramirez APRN.JAMI - 12/03/2023 3:[address] scan. Start the prednisone. (2 pills once daily X 5 days). Schedule w/ pulmonology. Schedule breathing tests. Get the xray of the shoulder. documented in this encounter [facility] 12-03-2023 History of Present illness Narrative This [...] He used to follow-up w/ pulmonology with [facility] - Dr. Montaño. Refers last seen [...] as directed. Copd flare up, dyspnea, wheezing ttdgfhmcmdm-xxt-HhkxzJ-vppq233 (COSAMIN AVOCA, WITH BOSWELLIA,) 500-500-33.3-70 mg tab [...] needed for worsening/no improvement. Carolyn Ramirez APRN.JAMI documented in this encounter [facility] 12-03-2023 Telephone encounter Note Pt called and is notified of providers message and instructions. Pt voices understanding. Pt scheduled with Carolyn Ramirez SUPERVISOR YARD today at 320 pm. Eleanor Ratliff RN [facility] 12-03-2023 Miscellaneous Notes Pt called and is notified of providers message and instructions. Pt voices understanding. Pt scheduled with Carolyn Ramirez SUPERVISOR YARD today at 320 pm. Eleanor Ratliff RN She will need return appt or ER. Will need additional lung assessment. Carolyn Ramirez APRN.CNP Patient calls to let provider know that she was not able to have the surgical procedure done to her nose from [facility]. She reports the provider wasn't comfortable [...] Please review and advise, Nicki Farmer RN documented in this encounter [facility] 12-03-2023 Telephone encounter Note She will need return appt or ER. Will need additional lung assessment. Carolyn Ramirez APRN.CNP [facility] 12-03-2023 Telephone encounter Note Patient calls to let provider know that she was not able to have the surgical procedure done to her nose from [facility]. She reports the provider wasn't comfortable [...] Please review and advise, Nicki Farmer RN [facility] 11-28-2023 History of Present illness Narrative This [...] as directed. Copd flare up, dyspnea, wheezing wgylgzdstel-vdh-YqzihJ-msxg165 (COSAMIN AVOCA, WITH BOSWELLIA,) 500-500-33.3-70 mg tab [...] needed for worsening/no improvement. Carolyn Ramirez APRN.JAMI The patient indicates understanding of these issues and agrees with the plan. documented in this encounter [facility] 10-17-2023 Instructions Gray Qiuntana DO - 10/17/2023 11:03 AM EDT Neoprene ankle support Take Lasix 20 mg every other day BLOOD PRESSURE is well controlled. documented in this encounter [facility] 10-17-2023 History of Present illness Narrative CC: [...] as directed. Copd flare up, dyspnea, wheezing tgsisxggxpz-umo-JctnaH-sanv402 (COSAMIN AVOCA, WITH BOSWELLIA,) 500-500-33.3-70 mg tab [...] - ICD9: 726.71, ICD10: M76.62 F/u with Fiber Drier Operator Need to control the edema 3. Pedal [...] R06.02 - FUROSEMIDE 20 MG TABLET Gray Quintana, DO To ER if develops chest pain, shortness of breath, or severe worsening of symptoms. Discussed risks, benefits, alternatives, and potential side effects of medications. Patient expressed understanding and agreed with the plan. Gray Quintana DO [address] [place] [address] documented in this encounter [facility] 10-12-2023 History of Present illness Narrative Chief [...] schedule with them, but has granddaughter's graduation libertarian this weekend and really needs to be [...] as directed. Copd flare up, dyspnea, wheezing ilxbojsycja-cwd-LxwytP-jodp048 (COSAMIN AVOCA, WITH BOSWELLIA,) 500-500-33.3-70 mg tab [...] 2) due on 12/28/2023 Covid-19 Vaccine( - 2022-24 season) due on 07/09/2024 RSV [...] Achilles tendinitis - ICD9: 726.71, ICD10: M76.62 [place] given to get her through the weekend of her granddaughter's graduation. She will schedule with her foot dr in [place] for further follow up. - HYDROCODONE 5 MG-ACETAMINOPHEN 325 MG TABLET Amelia Trotter APRN.CNP documented in this encounter [facility] 09-12-2023 Miscellaneous Notes Patient notified of results. Patient verbalizes understanding. Kasey Perez RN Left message to return call Yoselin Hull MA Please call patient and let her know that ECHO results show no acute concerns. Thank you, Christina Anthony APRN.JAMI documented in this encounter [facility] 09-10-2023 Instructions Amelia Trotter APRN.CNP - 09/10/2023 12:44 PM EDT Go ahead and stop the Lasix (furosemide). But you need to let me know if your ankles swell up again. Cut back on salty foods. Make sure you're getting enough exercise. Drink more during the day and less in the evening, toward nighttime. documented in this encounter [facility] 09-10-2023 History of Present illness Narrative Chief [...] quarterpounder with cheese and pickle yesterday from [employer]. She has been dealing with significant pedal [...] as directed. Copd flare up, dyspnea, wheezing axoaaboxsio-exs-TzxtgU-dbvi938 (COSAMIN AVOCA, WITH BOSWELLIA,) 500-500-33.3-70 mg tab [...] 2) due on 12/28/2023 Covid-19 Vaccine( - 2022- season) due on 07/09/2024 RSV Vaccine(1 - [...] as above plans in HPI. Amelia Trotter APRN.JAMI documented in this encounter [facility] 09-08-2023 Miscellaneous Notes Reason for call: Left [...] and appearance. Protocols used: Hand and Wrist Tgip-SKVJI-IY, Finger Jvjx-NWBZA-WS documented in this encounter [facility] 09-07-2023 Miscellaneous Notes Spoke with pt and information listed below given. Pt verbalizes understanding. Mai Campbell LPN Left message to return call Yoselin Hull MA Please let her know that her potassium and kidney labs all look good. Ok to continue with her current Lasix dose. Amelia Trotter APRN.JAMI documented in this encounter [facility] 09-06-2023 History of Present illness Narrative Chief [...] Patient agreeable to treatment plan. Christina Vega APRN.STATIONS SUPERINTENDENT Per TE: Pt calling in as she [...] as directed. Copd flare up, dyspnea, wheezing jgqftdvnqwl-qnl-PxovnH-zfia603 (COSAMIN AVOCA, WITH BOSWELLIA,) 500-500-33.3-70 mg tab [...] 2) due on 12/28/2023 Covid-19 Vaccine( - 2022- season) due on 07/09/2024 RSV Vaccine(1 - [...] Amelia Trotter APRN.JAMI documented in this encounter [facility] 08-28-2023 Miscellaneous Notes Detailed message left on pt's answering machine. Gianna Choudhury LPN Please let Nadja know that her chest xray looks normal. Amelia Trotter APRN.JAMI documented in this encounter [facility] 08-24-2023 History of Present illness Narrative Radiology [...] PATIENT PRESENTS WITH AN IMPLANTABLE OR ATTACHED ARMORED TRUCK DRIVER: No RADIOLOGY DEPARTMENT: General X-ray: Exam(s) Completed: Chest X-Ray PERIPHERAL IV DATA: Not applicable SIGNED BY: RT Francisco J(R) August 24, 2023 11:54 AM documented in this encounter [facility] 08-08-2023 Miscellaneous Notes Pt called and is notified of providers results and instructions. Pt voices understanding. Eleanor Ratliff RN Left message to return call. Please let her know her kidney function is stable. Ok to continue with the hctz as planned. Please make sure she is drinking a minimum of 60-80oz of water daily. Amelia Trotter APRN.JAMI documented in this encounter [facility] 08-07-2023 Miscellaneous Notes The following approved medication [...] Cassie Nino LPN. documented in this encounter [facility] 08-07-2023 Instructions Amelia Trotter APRN.JAMI - 08/07/2023 11:38 AM EDT Have your lab drawn again to look at your kidney function. Start taking the losartan/hydrochlorothiazide 50/12.5 twice daily. Try taking your Vitmain D3, 5000iu and 10,000iu every other day. documented in this encounter [facility] 08-07-2023 History of Present illness Narrative Chief [...] TABLET - NT PRO BNP Amelia Trotter APRN.STATIONS SUPERINTENDENT Currently: Has chronic low back pain, but [...] once daily. 1 daily in the evening sowculxlwbg-uao-FdctqC-dulw011 (COSAMIN AVOCA, WITH BOSWELLIA,) 500-500-33.3-70 mg tab [...] 50 MG-HYDROCHLOROTHIAZIDE 12.5 MG TABLET Amelia Trotter APRN.STATIONS SUPERINTENDENT documented in this encounter [facility] 08-01-2023 Miscellaneous Notes Spoke with pt and information listed below given. Pt verbalizes understanding. Apt for next week has been booked. Mai Campbell LPN Please let her know that her lab work all looks good. Amelia Trotter APRN.CNP Phoned patient left message to return call and ask to speak to a nurse for results. Please let Nadja know that her chest xray looks normal. We'll continue with our current plan, I'll let her know when I get her lab results, and we'll plan to follow up in a week. Amelia Trotter APRN.CNP documented in this encounter [facility] 07-31-2023 History of Present illness Narrative Radiology [...] PATIENT PRESENTS WITH AN IMPLANTABLE OR ATTACHED ARMORED TRUCK DRIVER: No RADIOLOGY DEPARTMENT: General X-ray: Exam(s) Completed: Chest X-Ray PERIPHERAL IV DATA: Not applicable SIGNED BY: RT Francisco J(R) July 31, 2023 3:08 PM documented in this encounter [facility] 07-19-2023 Miscellaneous Notes Pt informed, verbalized understanding Yoselin Hull Please inform patient that her recent labs show that her inflammation marker CRP and her serum BUM and creatinine for renal function were borderline. Needs to have these labs rechecked when able in the next 2 weeks Gray Quintana DO documented in this encounter [facility] 07-09-2023 History of Present illness Narrative CC: [...] Take 2,400 mg by mouth twice daily. rfanckucuty-gky-GufrmY-wcoa168 (COSAMIN AVOCA, WITH BOSWELLIA,) 500-500-33.3-70 mg tab [...] - ICD9: 556.9, ICD10: K51.90 F/u with manager demand Gray Quintana, DO Return if no improvement. Follow up with Gray Quintana DO. To ER if develops chest pain, shortness of breath. Discussed risks, benefits, alternatives, and potential side effects of medications. Patient/Guardian expressed understanding and agreed with the plan. See patient instructions. Gray Quintana DO [address] [place] [address] documented in this encounter [facility] 05-03-2023 Miscellaneous Notes Noted. Agree with below. Thank you, Christina Anthony APRN.STATIONS SUPERINTENDENT Phoned patient and given provider's message below with verbalized understanding. Patient reports she had CT chest done at [facility] last year around Mar, ordered by administration physician. States she will try to get those results and bring to her next appt. The radiologist doesn't make any notes regarding any concerns for worsening COPD Gray Quintana DO Lab results on your desk from [facility]. See note below. Patient calls back [...] if these are growing / changing. The administration physician recommends recheck of CT chest in 12 months to make sure this is stable Gray Quintnaa DO Pt received a letter in the [...] has reviewed them. documented in this encounter [facility] 05-03-2023 Miscellaneous Notes Phoned patient and went over results, notes from Dr Quintana with understanding. Please inform patient that I have reviewed her [facility] labs from 04/17. They were normal except for elevated CRP inflammatory marker. I would like her to have this rechecked in the next few weeks Gray Quintana DO documented in this encounter [facility] 04-23-2023 Lanie Perea, SARIKA - 04/23/2023 2:06 PM EST Aim for low fiber, low residue diet as much as possible Avoid simple sugars and lactose If needed try liquid nutrition for a couple days If have to take steroids follow a low carbohydrate diet When feeling better, transition back to current plan documented in this encounter [facility] 04-23-2023 History of Present illness Narrative Nutritional [...] breads and grains only Try triple zero Faroese yogurts Aim for 2 oz/14 grams protein [...] milk Snack - not usually Lunch - burger eduar or skip; Snack - not usually Dinner - Samoan a few x; garlic chicken, low sodium frozen meals Snack - Doritos Beverages - milk, water, diet tea, a couple cokes Alcohol - no Vitamins/Supplements - vit D Currently: cup of yogurt, an egg, white toast; Soups ;chicken noodle with toasted cheese [place], dressing, mashed potatoes, cucumbers with loredo Activity: [...] TIME: 1:52 PM documented in this encounter [facility] 04-06-2023 Instructions Gray Quintana DO - 04/06/2023 12:23 PM EST Mucinex generic - guafenasin 600 mg twice a day Albuterol 2 puffs every 4-6 hours as needed for upper respiratory infection (cold) If continue to get COPD flare ups, then we will start Symbicort or Advair or other daily inhaler documented in this encounter [facility] 04-06-2023 History of Present illness Narrative CC: [...] seen in the past by Dr. Montaño Passenger Screener- had PFTs and told that she may [...] Take 2,400 mg by mouth twice daily. rjbzbhjngpt-evt-YifwaW-lpcz526 (COSAMIN AVOCA, WITH BOSWELLIA,) 500-500-33.3-70 mg tab [...] bronchitis with chronic obstructive pulmonary disease (COPD) ([facility]) - ICD9: 491.22, ICD10: J44.0, J20.9 (primary [...] plan. See patient instructions. Gray Quintana DO [address] [place] [address] documented in this encounter [facility] 03-19-2023 Miscellaneous Notes nOTIFED PT OF SUCH. [...] patient Madison Dumont documented in this encounter [facility] 03-12-2023 Instructions Lanie Love, SARIKA - 03/12/2023 2:55 PM EDT Choose whole grain, high fiber breads and grains only Try triple zero Faroese yogurts Aim for 2 oz/14 grams protein [...] sodium or less documented in this encounter [facility] 03-12-2023 History of Present illness Narrative Nutritional Therapy Re-Assessment Nutrition Diagnosis: Behavioral-Environmental: Food and nutrition related knowledge deficit, related to, lack of prior exposure to information , as evidenced by change in existing diagnosis or condition RECOMMENDED MALNUTRITION DIAGNOSIS: NO MALNUTRITION IDENTIFIED NUTRITION CARE PLAN: Nutrition Intervention 03/12/2023: comprehensive nutrition education Choose whole grain, high fiber breads and grains only Try triple zero Faroese yogurts Aim for 2 oz/14 grams protein [...] None Likelihood of Adherence: Moderate Referred/Supervised by: Hieu MNAllie Billing Type: Re-assess/15 min 2 units SIGNATURE: Lanie Love RD PATIENT NAME: Nadja Chaudhari DATE: March 12, 2023 TIME: 2:32 PM documented in this encounter [facility] 01-22-[address] - 01/22/2023 [...] instead of butter documented in this encounter [facility] 01-22-2023 History of Present illness Narrative Nutrition [...] D3 One gallon milk every 4-5 days [place] Stop eating 5-8 Occ snack on deviled eggs Activity: Activities of Daily Living: varies, shopping Additional Activity: Moderately active (Moderate intensity exercise: Planned physical activity 3-5 days/week) Some band work Occ fabroomstle garcia Walk (20-25 min) - 2-5 x per [...] SIGNATURE: Lanie Love RD PATIENT NAME: Nadja Cahudhari DATE: January 22, 2023 TIME: 12:18 PM documented in this encounter [facility] 01-16-2023 Instructions Carolyn Ramirez APRN.JAMI - 01/16/2023 2:40 PM EDT Continue the same medications. documented in this encounter [facility] 01-16-2023 History of Present illness Narrative This [...] once daily. 1 daily in the morning vrapcuchvmg-brn-TtnrxZ-lynb540 (COSAMIN AVOCA, WITH BOSWELLIA,) 500-500-33.3-70 mg tab [...] diet/exercise. She has an upcoming appt with duplicating machine operator. Discussed treatment plan and patient voices understanding. Patient's questions answered appropriately. Medications and potential side effects were discussed and patient voices understanding. Return to the office as scheduled or as needed for worsening/no improvement. Carolyn Ramirez, ARIAN.JAMI [place]oto spent a total of 25 minutes on the date of the service which included preparing to see the patient, dwvx-ve-nidh patient care, completing clinical documentation, obtaining and/or reviewing separately obtained history, performing a medically appropriate examination, counseling and educating the patient/family/caregiver, and ordering medications, tests, or procedures. documented in this encounter [facility] 01-11-2023 Telephone encounter Note 1st attempt left message as nutrition appt was cancelled please see phone note in regards to ins issue and must be billed as Obesity, Class II, BMI 35-39.9 [E66.9] [facility] 01-11-2023 Miscellaneous Notes 1st attempt left message [...] patient. Nickie Hopkins documented in this encounter [facility] 01-10-2023 Miscellaneous Notes Noted. Thank you, Christina Anthony APRN.STATIONS SUPERINTENDENT Patient calls to let provider know that [...] Nicki Farmer RN documented in this encounter [facility] 01-10-2023 Telephone encounter Note The referral is showing a primary dx of Obesity. When the patient sees Lanie, she will have to make sure the dx is for Obesity so the claim will get paid. Merle [facility] Work Phone: 01-03-2023 Telephone encounter Note It looks like referral has right DX. Can you help with this. [facility] 12-29-2022 Telephone encounter Note Patient does have obesity, please recode for nutrition visit Gray Quintana DO [facility] 12-29-2022 Telephone encounter Note Patient has upcoming appointment on 01/08 With Lanie Love. Her Insurance company notified her that they would not cover this appointment with the current codes attached to it. Patient stated in order to keep appointment the code can be for obesity screening and counceling and/or bmi of 30% or higher. Please review and advise patient. Nickie Hopkins [facility] 12-28-2022 Miscellaneous Notes Patient notified of results, verbalizes understanding of instructions. Maria Alejandra Tuttle LPN Please call patient and let her know that UA was normal. No signs of hematuria or blood in urine. This has resolved with antibiotic. Take care, Christina Anthony APRN.STATIONS SUPERINTENDENT documented in this encounter [facility] 12-27-2022 History of Present illness Narrative Chief Complaint Patient presents with: sleep and weight issues HPI Nadja Chaudhari is a 72 year old female who presents here today for Above Complaints. Nadja is an established patient of Dr. Quintana, and myself. Concerns today.. Sleep--- Known severe [...] once daily. 1 daily in the morning [id number] (COSAMIN AVOCA, WITH BOSWELLIA,) 500-500-33.3-70 mg tab [...] and routine exercise regimen. Referral to individualized duplicating machine operator care plan. Wellbutrin for anxiety/depression -- choose [...] (HCC) - ICD9: 556.9, ICD10: K51.90 Hoping duplicating machine operator can help improve diet to decrease inflammation [...] agreeable to treatment plan. Christina Vega APRN.JAMI [address] [place] [address] documented in this encounter [facility] 12-10-2022 Miscellaneous Notes Pt was notified of the results. Pt verbalized understanding. Miranda Zepeda MA Phone call placed brief message to contact a nurse to review results. Antonella Campbell LPN Urine culture did not look like a clean sample so it did not show a clear infection. Finish antibiotic and follow up with primary care as scheduled in a few weeks. Urine should be rechecked for blood then. documented in this encounter [facility] 11-29-2022 Miscellaneous Notes Patient notified and verbalized [...] La Rosa LPN documented in this encounter [facility] 11-20-2022 History of Present illness Narrative Episode [...] treatment included: Therapeutic exercise, Neuromuscular re-education, and Self-correction management. Goals for Episode of Care: created [...] Lumbar Extension: Minimal limitation Lumbar R Side Goodspring: Normal Lumbar L Side Goodspring: Normal Lumbar R Side-Bend: Normal Lumbar L [...] Tina Epps PT documented in this encounter [facility] 11-15-2022 History of Present illness Narrative Episode [...] Patient to be seen for Therapeutic exercise (83114), Neuromuscular re-education (59382), Manual therapy (55754), Therapeutic activities (12160), Self-correction management (02959), Gait Training (62924), Patient/Family/Caregiver Education PLAN FOR NEXT VISIT: Continue [...] Tina Epps PT documented in this encounter [facility] 11-15-2022 Miscellaneous Notes PATIENT NOTIFIED OF SAME. Appointment scheduled to discuss on 12/11/22. Message left for patient to call office back and ask for a FM triage nurse for update. Barbara Cowart LPN ----- Message from Andres Srinivasan MD sent at 11/15/2022 8:04 AM EDT ----- Normal labs including normal iron levels. Fatigue may be related to untreated NEAV. Recommend f/u with PCP to discuss treatment options for NEVA. Recommend sleeping on her side at night, weight loss, and avoidance of sedatives to help with this condition. documented in this encounter [facility] 11-14-2022 History of Present illness Narrative Chief [...] once daily. 1 daily in the morning [id number] (COSAMIN AVOCA, WITH BOSWELLIA,) 500-500-33.3-70 mg tab [...] Abs Lymph 1.00 - 4.00 k/uL 2.55 Emmons% % 7.6 Abs Emmons <0.87 k/uL 0.45 Eosin% % 2.2 Abs [...] Andres Srinivasan MD documented in this encounter [facility] 11-13-2022 History of Present illness Narrative Episode Visit Count: 5 Therapist That Will Accept/Oversee The Plan Of Care: Tina VillalobosChristinaJc Start of Care Date: 10/24/22 Onset Date: [...] 38 Total Treatment Time Minutes (timed/untimed): 38 Marilou Everett PTA Tina Epps PT documented in this encounter [facility] 11-08-2022 History of Present illness Narrative Episode [...] Tina Epps PT documented in this encounter [facility] 11-01-2022 History of Present illness Narrative Episode [...] and function . Patient education as noted. Self-Detention Management: 1: *discussed directional preference and centralization [...] Tina Epps PT documented in this encounter [facility] 10-24-2022 History of Present illness Narrative Episode [...] Planned: 12 Planned Treatment Interventions: Therapeutic exercise (61347), Neuromuscular re-education (51359), Manual therapy (91596), Therapeutic activities (16278), Self-correction management (13756), Gait Training (88377), Patient/Family/Caregiver Education PLAN FOR NEXT VISIT: Assess [...] Demonstration TREATMENT: PT Treatment Interventions: Therapeutic Exercise, Self-Detention Management Evaluation Therapeutic Exercise: 1: *seated lumbar [...] and function . Patient education as noted. Self-Detention Management: 1: *dicouraged use of inversion table [...] Tina Epps PT documented in this encounter [facility] 08-25-2022 Miscellaneous Notes Patient calls and notified [...] Gray Quintana DO documented in this encounter [facility] 08-23-2022 History of Present illness Narrative CC: [...] 3 steroid injections in the past. 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 1 daily in the morning [id number] (COSAMIN AVOCA, WITH BOSWELLIA,) 500-500-33.3-70 mg tab [...] agreed with the plan. Gray Quintana DO [address] [place] [address] documented in this encounter [facility] 08-23-2022 Instructions Gray Quintana DO - 08/23/2022 11:14 AM EDT Cymbalta Neurontin (Gabapentin) Lyjessicaa documented in this encounter [facility] 07-05-2022 Miscellaneous Notes Noted. Christina Anthony APRN.CNP [...] Christina Anthony APRN.CNP documented in this encounter [facility] 07-03-2022 Instructions Christina Anthony APRN.CNP - 07/03/2022 11:48 AM EST Adipex--- 3 months only. Contrave - pill Qysmia - pill Injections: Victoza, Trulicity, Saxenda, Mounjaro (some are weekly injections, some are daily injections). documented in this encounter [facility] 07-03-2022 History of Present illness Narrative Chief Complaint Patient presents with: Establish Care HPI Nadja Chaudhari is a 72 year [...] Just started this recently. Follows with Dr. Dorsey for this in [place], [place]. Next appt in October. Last colonscopy [...] Bone density test 1-2 years ago at [facility]. Dx with start of osteopenia.Takes Vitamin D3 -- 5000 -76926 international unit(s) per day. Also takes 100 mcg K2. Follows with [facility] for spinal stenosis. Mammogram-- up to date. [...] Take 40 mg by mouth once daily. [id number] (COSAMIN AVOCA, WITH BOSWELLIA,) 500-500-33.3-70 mg tab [...] diet of 1000 mg/day for under 50, 1214-7249 mg/day for 50+ - Discussed need and [...] Patient agreeable to treatment plan. Christina Vega APRN.STATIONS SUPERINTENDENT [address] [place] [address] documented in this encounter [facility] 07-03-2022 Nurse Note Pt states trish legs ach badley and lft heel has had two cortizone shots in heel dr. States will mostly need surgery on it. documented in this encounter [facility] 09-17-2020 Evaluation + Plan note Future Scheduled TestsXR Knee 3 Views Left 09/17/20XR Knee 3 Views Right 09/17/20XR Spine Lumbar W/Obliques 4 Views 09/17/20 [facility] Discharge summary Note Date/Time January 17, 2025 12:37pm [facility] Medical Records Department [address] [place] [address] Emergency Department Summary 01/17/25 MR#: [id number] Acct: [id number] Name: NADJA CHAUDHARI Rep #:[id number] : 1950 74 From: Varghese Lazo MD PCP: Dr. Gray Quintana, DO Status:RE G ER Location: ED HPI HPI - GI History of Present Illness Chief Complaint: Abd Pain Informant: patient Narrative Narrative: 74-year-old female was seen here 2 days ago for abdominal pain and some rectal bleeding and was told she has diverticulitis, she was discharged started on Cipro and Flagyl. She returns today saying that she has had diarrhea starting yesterday, she had 6 or 7 bouts yesterday, but they were all very small amounts. Today, she states she got very little morning and then had a big blowout of a lot of diarrhea that was mostly watery stool, a little bit of blood in the stooland again when she wiped but no major bleeding. She then had another smaller bout of diarrhea that was more similar to what she had last night. She has beenimproving with regards to her abdominal pain. She denies any fevers or chills. It is Sunday morning she called her doctor about this and they referred her here to the ER. She denies any lightheadedness or near syncope. She denies anychest pain or shortness of breath. No nausea or vomiting. She does not have any abdominal pain right now she states when it is there it comes and goes but is not as bad as it was before she started the treatment. She is to be on a apixaban for DVT, but her doctor took her off of that sometime ago after her DVTwas resolved. No history of C. difficile in the past. She states usually takesprobiotic but has not taken it in a while. [facility] Medical History Anxiety Depression Osteoporosis Kidney disease Hepatitis Former smoker On home oxygen therapy Asthma Chest pain Ulcerative colitis HTN (hypertension) History of hypertension Home Medications ?Medication ?Instructions ?Recorded ?Last Taken ?Type losartan 50 mg-hydrochlorothiazide 1 tab PO DAILY 11/26 06/18 Unknown History 12.5 mg tablet losartan 50 mg tablet 50 mg PO HS 01/02/22 Unknown History atorvastatin 40 mg tablet 40 mg PO QHS 1 month #30 tab s 06/13/24 Unknown Rx carvedilol 6.25 mg tablet 6.25 mg PO BIDCM 30 days #60 tabs 06/13/24 Unknown Rx ciprofloxacin HCl 500 mg tablet 500 mg PO BID 7 days # 14 tabs 01/15/25 Unknown Rx (Cipro) hydrocodone-acetaminophen 5-325mg 1 tab PO Q6H PRN PRN Pain 3 days 01/15/25 Unknown Rx 5mg-325mg #10 TABLETS metronidazole 500 mg tablet 500 mg PO BID 7 days #14 t abs 01/15/25 Unknown Rx ondansetron 4 mg disintegrating 4 mg PO Q6H PRN nausea and 01/15/25 Unknown Rx tablet vomiting #10 tabs Allergy/AdvReac Type Severity Reaction Status Date / Time No Known Allergies Allergy Verified 01/17/25 10:01 Family History Father Colon cancer Aunt Colon [...] type: does not use ROS ROS ED Constitutional Constitutional ED: Denies chills or fever(s) Eyes Eyes: Denies change in vision or diplopia ENT ENT ED: Denies rhinorrhea or sore throat Cardiovascular Cardiovascular: Denies chest pain or palpitations Respiratory/Chest Respiratory/Chest: Denies cough or dyspnea Gastrointestinal Gastrointestinal: Reports abdominal pain, diarrhea and hematochezia; Denies melena, nausea or vomiting Genitourinary Genitourinary ED: Denies dysuria or hematuria Musculoskeletal Musculoskeletal: Denies back pain or neck pain Integumentary Denies abscess or rash Neurologic Neurologic: Denies headache(s), paresthesias or weakness Psychiatric Psychiatric: Denies anxiety or suicidal thoughts EXAM Physical Exam Const Vital Signs: 01/17/25 10:01 Temperature 98.7 F Temperature Source Oral Pulse Rate 90 Respiratory Rate 22 H Blood Pressure 105/80 Blood Pressure Mean 88 Pulse Ox 93 Oxygen Delivery Method Room Air Positive well nourished, well developed and obese Constitutional Narrative: Well-appearing no distress General Appearance ED: well developed and NAD Nutritional Appearance: obese HEENT Reports moist mucous membranes normocephalic and atraumatic Eyes PERRL and EOMs intact bilaterally Neck full ROM and supple Resp normal respiratory effort and clear to auscultation bilaterally Cardio regular rate, regular rhythm and no murmurs GI non-tender and non-distended Auscultation: normoactive bowel sounds Palpation: soft Back/Spine no CVA tenderness General Back: other FROM Extremity normal to inspection General Extremety ED: Negative for edema, pulses abnormal or tenderness General Extremity: Negative for edema or pulses abnormal Neuro oriented x3, CN's II-XII intact bilaterally and no sensory deficits noted Sensorium / Orientation: awake and alert Motor Exam: strength 5/5 throughout Skin no rashes or lesions noted and no wounds MDM MDM MDM Narrative Medical decision making narrative: Patient has very benign abdominal exam. I reviewed her labs and CT from 2 days ago, showing uncomplicated sigmoid diverticulitis, no significant leukocytosis, stable blood counts, and normal chemistries. Repeating her chemistries and blood counts given her bleeding, and we will observe her here, test her stool for C. difficile if she is able to provide specimen. Labs show some mild renal insufficiency likely due to some mild dehydration. Her blood counts are relatively stable, with her hemoglobin down just a little compared with the other day. This can be monitored as an outpatient. She had no diarrhea while here in the ER for 3 hours or more, and she prefers to go home. Clinically and hemodynamically she is doing well. I am going to prescribe her a test to rule out C. difficile advised that she continue her antibiotics for diverticulitis and to add a probiotic to that regimen, and she can submit specimen for the test as an outpatient and follow-up with her doctor after the weekend she is comfortable with the plan. Lab Data Attestation: I reviewed the patient's lab results. Labs: Laboratory Results - last 24 hr 01/17/25 10:40 WBC 7.8 RBC 3.82 L Hgb 11.2 L Hct 34.5 L MCV 90.3 MCH 29.3 MCHC 32.5 RDW Std Deviation 46.6 H RDW Coeff of Javi 13.9 Plt Count 261 MPV 9.6 Immature Gran % (Auto) 0.400 Neut % (Auto) 68.9 Lymph % (Auto) 18.1 L Emmons % (Auto) 9.0 Eos % (Auto) 3.3 Baso % (Auto) 0.3 Absolute Neuts (auto) 5.4 Absolute Lymphs (auto) 1.41 Nucleated RBC % 0 Sodium 139 Potassium 3.3 Chloride 103 Carbon Dioxide 21.7 Anion Gap 15 BUN 21 H Creatinine 1.28 H Estim Creat Clear Calc 45.71 L Est GFR (MDRD) Non-Af 44 L BUN/Creatinine Ratio 16.4 Glucose 119 H Calcium 8.6 Discharge Plan Triage Chief Complaint: Abd Pain ED Provider: Varghese Lazo Dx/Rx/DC Orders Clinical Impression: Antibiotic-associated diarrhea, Acute kidney insufficiency, Diverticulitis of sigmoid colon, Hematochezia Instructions: ED Diarrhea, Unknown Cause Prescriptions: Continued losartan-hydrochlorothiazide 50-12.5 mg tablet 1 tab PO DAILY losartan 50 mg tablet 50 mg PO HS ciprofloxacin HCl [Cipro] 500 mg tablet 500 mg PO BID 7 Days Qty: 14 0RF metronidazole 500 mg tablet 500 mg PO BID 7 Days Qty: 14 0RF hydrocodone-acetaminophen 5-325 mg tablet 1 tab PO Q6H PRN PRN (Reason: Pain) 3 Days Qty: 10 0RF ondansetron 4 mg tablet,disintegrating 4 mg PO Q6H PRN (Reason: nausea and vomiting) Qty: 10 0RF carvedilol 6.25 mg Tablet 6.25 mg PO BIDCM 30 Days Qty: 60 2RF Rx Instructions: Hold for heart less than 50 or systolic blood pressure less than 100 mmHg. atorvastatin 40 mg tablet 40 mg PO QHS 30 Days Qty: 30 2RF Discontinued Eliquis DVT-PE Treat 30D Start 5 mg (74 tabs) tablets,dose pack 5 mg PO BID Qty: 74 0RF Rx Instructions: 10 mg (2 tabs) twice daily for 7 days till 06/19/24 and then twice daily to continue Other Ambulatory Orders: CDIFF (PCR) (Routine) Timeframe: 3 Days Facility: [facility] - Location: Laboratory Ordered By: Dr. Varghese Lazo Primary Care Provider: Gray Quintana Referrals: Gray Quintana DO [Primary Care Provider] - Activity Restrictions/Additional Instructions: Take probiotic at least twice a day while you are on the antibiotics and preferably for the next 3 days or so when you are done with them. If you are able to collect a stool specimen at home submitted to the lab when you are able and follow-up with your doctor for the results. Print Language: German Disposition Disposition: Home, Self Care What to do if you have Problems For any increased pain, shortness of breath, bleeding, nausea or vomiting, chestpain, or any unexpected problems, contact your Primary Care Provider. Call [facility] ([phone]) or report to the closest Emergency Room. Call 911 if necessary. 01/17/25 [id number] <Electronically signed by Varghese Lazo MD> Cosigner Signature (if applicable): CC: Dr. Gray Quintana DO ~ Signed [facility] Work Phone: Evaluation + Plan note Future Appointments Appointment Date:05/25/2021 02:30:00 PM Scheduled Provider:ASHLEY DWYER JR, MD Location: [facility] Appointment Type: SUPERVISOR YARD Appointment Date:07/26/2021 01:20:00 PM Scheduled Provider:JACKIE HAIDER Location:[facility] Appointment Type:PC OV Future Scheduled Tests Radiology* XR Knee 3 Views Left 09/17/20 * XR Knee 3 Views Right 09/17/20 * XR Spine Lumbar W/Obliques 4 Views 09/17/20 [facility] Evaluation + Plan note Future Appointments Appointment Date:06/28/2021 09:50:00 AM Scheduled Provider:JACKIE HAIDER Location:[facility] Appointment Type:PC OV Follow Up Appointment Date:07/26/2021 01:20:00 PM Scheduled Provider:JACKIE HAIDER Location:[facility] Appointment Type:PC OV Future Scheduled Tests Radiology* XR Knee 3 Views Left 09/17/20 * XR Knee 3 Views Right 09/17/20 * XR Spine Lumbar W/Obliques 4 Views 09/17/20 [facility] Evaluation + Plan note Future Appointments Appointment Date:01/02/2022 10:30:00 AM Scheduled Provider:JACKIE HAIDER Location:[facility] Appointment Type: OV Appointment Date:03/09/2022 10:50:00 AM Scheduled Provider:JACKIE HAIDER Location:[facility] Appointment Type: OV [facility] Evaluation + Plan note Future Appointments Appointment Date:03/09/2022 10:50:00 AM Scheduled Provider:JACKIE HAIDER Location:[facility] Appointment Type:[facility] Diagnostic Tests Pending * Calprotectin, Fecal 01/24/22 * Stool Culture 01/24/22 * Clostridium difficile (PCR) 01/24/22 * Giardia Antigen 01/24/22 [facility] Evaluation + Plan note Future Appointments Appointment Date:03/09/2022 10:50:00 AM Scheduled Provider:JACKIE HAIDER Location:[facility] Appointment Type: OV [facility] evaluation + Plan note Future Appointments Appointment Date:08/30/2022 10:30:00 AM Scheduled Provider:YAN REYES Location:[facility] Appointment Type: OV [facility] evaluation note* Diagnosis Onset Date Resolution Status Nicotine dependence, cigarettes, uncomplicated acute NEVA (obstructive sleep apnea) acute COPD (chronic obstructive pulmonary disease) [facility] Work Phone: evaluation note* Diagnosis Onset Date Resolution Status Asthma-COPD overlap syndrome [facility] Work Phone: evaluation note* Diagnosis Onset Date Resolution Status Nicotine dependence, cigarettes, uncomplicated acute Asthma-COPD overlap syndrome [facility] Work Phone: evaluation note* Diagnosis Wellness examination- Primary Ulcerative colitis without complications, unspecified location (HCC) Osteopenia, unspecified location Hypertension, essential Unspecified essential hypertension NEVA (obstructive sleep apnea) Obstructive sleep apnea (adult) (pediatric) Mild intermittent asthma without complication Unspecified asthma Obesity, Class II, BMI 35-39.9 Obesity, unspecified documented in this [facility]* Diagnosis Onset Date Resolution Status NEVA (obstructive sleep apnea) acute Smoking greater than 20 pack years acute Asthma-COPD overlap syndrome chronic Obstructive Sleep Apnea-Hypopnea Syndrome noneactive [facility] Work Phone: Evaluation note* Diagnosis Muscle pain- Primary Mylagia and myositis, unspecified Myalgia Mylagia and myositis, unspecified Multiple joint pain Pain in joint, multiple sites Hypertension, essential Unspecified essential hypertension Ulcerative colitis without complications, unspecified location (HCC) documented in this encounter [facility]* Diagnosis Spinal stenosis of lumbar region, unspecified whether neurogenic claudication present- Primary documented in this encounter [facility] note* Diagnosis Spinal stenosis, lumbar region, without neurogenic claudication- Primary documented in this encounter [facility] note* Diagnosis Spinal stenosis, lumbar region, without neurogenic claudication- Primary documented in this encounter [facility]* Diagnosis Spinal stenosis, lumbar region, without neurogenic claudication- Primary documented in this encounter [facility]* Diagnosis Fatigue, unspecified type- Primary History of iron deficiency Personal history of diseases of blood and blood-forming organs documented in this encounter [facility]* Diagnosis Spinal stenosis, lumbar region, without neurogenic claudication- Primary documented in this encounter [facility] note* Diagnosis Spinal stenosis, lumbar region, without neurogenic claudication- Primary documented in this encounter [facility] note* Diagnosis Obesity, Class II, BMI 35-39.9- Primary Obesity, unspecified NEVA (obstructive sleep apnea) Obstructive sleep apnea (adult) (pediatric) Microscopic hematuria Blood glucose elevated Other abnormal glucose Hypertension, essential Unspecified essential hypertension Ulcerative colitis without complications, unspecified location (HCC) Chronic kidney disease, stage 2 (mild) Anxiety and depression Dysthymic disorder documented in this encounter [facility]* Diagnosis CKD (chronic kidney disease) stage 2, GFR 60-89 ml/min- Primary Chronic kidney disease, Stage II (mild) Obesity, Class II, BMI 35-39.9 Obesity, unspecified documented in this encounter [facility]* Diagnosis Obesity, Class II, BMI 35-39.9- Primary Obesity, unspecified CKD (chronic kidney disease), stage II Chronic kidney disease, Stage II (mild) NEVA (obstructive sleep apnea) Obstructive sleep apnea (adult) (pediatric) documented in this encounter [facility]* Diagnosis Obesity, Class II, BMI 35-39.9- Primary Obesity, unspecified CKD (chronic kidney disease), stage II Chronic kidney disease, Stage II (mild) NEVA (obstructive sleep apnea) Obstructive sleep apnea (adult) (pediatric) Dietary counseling Dietary surveillance and counseling documented in this encounter [facility]* Diagnosis Hypertension, essential Unspecified essential hypertension documented in this encounter [facility] note* Diagnosis Acute bronchitis with chronic obstructive pulmonary disease (COPD) (HCC)- Primary Obstructive chronic bronchitis with acute bronchitis Lung nodule, multiple Other nonspecific abnormal finding of lung field Chronic obstructive pulmonary disease, unspecified COPD type (HCC) documented in this encounter [facility] noteNo assessment information availableWThe [facility] Work Phone: Evaluation note* Diagnosis Obesity, Class II, BMI 35-39.9- Primary Obesity, unspecified CKD (chronic kidney disease), stage II Chronic kidney disease, Stage II (mild) NEVA (obstructive sleep apnea) Obstructive sleep apnea (adult) (pediatric) Dietary counseling Dietary surveillance and counseling documented in this encounter [facility] note* Diagnosis Pulmonary nodule- Primary Solitary pulmonary nodule [facility] Diagnosis Elevated C-reactive protein (CRP)- Primary documented in this encounter [facility] note* Diagnosis Encounter for screening mammogram for breast cancer documented in this encounter [facility] note* Diagnosis Weight gain- Primary Abnormal weight [...] unspecified location (HCC) [facility] Diagnosis Elevated C-reactive protein (CRP)- Primary Elevated serum creatinine Other nonspecific findings on examination of blood [facility] Diagnosis Pedal edema- Primary Edema CKD (chronic kidney disease) stage 2, GFR 60-89 ml/min Chronic kidney disease, Stage II (mild) Hypertension, essential Unspecified essential hypertension [facility]* Diagnosis Hypertension, essential Unspecified essential hypertension [facility] Diagnosis Pedal edema- Primary Edema Hypertension, essential Unspecified essential hypertension CKD (chronic kidney disease) stage 2, GFR 60-89 ml/min Chronic kidney disease, Stage II (mild) Wheezing SOB (shortness of breath) Shortness of breath [facility] Diagnosis Pedal edema- Primary Edema Hypertension, essential Unspecified essential hypertension CKD (chronic kidney disease) stage 2, GFR 60-89 ml/min Chronic kidney disease, Stage II (mild) SOB (shortness of breath) Shortness of breath Allergic arthritis of hand, unspecified laterality Situational anxiety Other anxiety states [facility]* Diagnosis Obesity, Class II, BMI 35-39.9- Primary Obesity, unspecified Hypertension, essential Unspecified essential hypertension Chronic kidney disease, stage 2 (mild) [facility] Left Achilles tendinitis- Primary Achilles bursitis or tendinitis [facility]* Diagnosis Hypertension, essential- Primary Unspecified essential hypertension Left Achilles tendinitis Achilles bursitis or tendinitis Pedal edema Edema CKD (chronic kidney disease) stage 2, GFR 60-89 ml/min Chronic kidney disease, Stage II (mild) Obesity, Class II, BMI 35-39.9 Obesity, unspecified Fatigue, unspecified type Hyperglycemia Other abnormal glucose Wheezing SOB (shortness of breath) Shortness of breath [facility]* Diagnosis Costochondritis- Primary Tietze's disease [facility]* Diagnosis Chest wall pain- Primary Painful respiration Chronic obstructive pulmonary disease, unspecified COPD type (HCC) Acute pain of right shoulder SOB (shortness of breath) Shortness of breath [facility] Diagnosis Acute pain of right shoulder [facility]* Diagnosis Shortness of breath- Primary Chest pain varying with breathing [facility]* Diagnosis Hypertension, essential Unspecified essential hypertension [facility]* Diagnosis Hypertension, essential- Primary Unspecified essential [...] Impaired fasting glucose [facility]* Diagnosis Wheezing SOB (shortness of breath) Shortness of breath [facility]* Diagnosis Pedal edema Edema SOB (shortness of breath) Shortness of breath CKD (chronic kidney disease) stage 2, GFR 60-89 ml/min Chronic kidney disease, Stage II (mild) Hypertension, essential Unspecified essential hypertension [facility]* Diagnosis Chronic obstructive pulmonary disease, unspecified COPD type (HCC) [facility]* Diagnosis Asthma-COPD overlap syndrome (HCC)- Primary NEVA (obstructive sleep apnea) Obstructive sleep apnea (adult) (pediatric) Former cigarette smoker Personal history of tobacco use, presenting hazards to health Morbid obesity (HCC) Morbid obesity Lung nodules Other nonspecific abnormal finding of lung field [facility]* Diagnosis Hypoxemia- Primary Morbid obesity (HCC) Morbid obesity [facility]* Diagnosis Asymptomatic postmenopausal status Disorder of bone and cartilage Disorder of bone and cartilage, unspecified [facility]* Diagnosis Encounter for screening mammogram for malignant neoplasm of breast Other screening mammogram [facility]* Diagnosis Acute and chronic respiratory failure with hypoxia (HCC)- Primary Acute and chronic respiratory failure [facility]* Diagnosis Sciatica, right side- Primary [facility] Diagnosis Sciatica, right side- Primary CKD [...] Other chest pain [facility]* Diagnosis Hospital discharge follow-up- Primary Other follow-up examination Acute deep vein thrombosis (DVT) of proximal vein of right lower extremity (HCC) Hypertension, essential Unspecified essential hypertension IFG (impaired fasting glucose) Impaired fasting glucose Poor sleep NEVA (obstructive sleep apnea) Obstructive sleep apnea (adult) (pediatric) Nasal congestion Other diseases of nasal cavity and sinuses [facility] Diagnosis Acute deep vein thrombosis (DVT) of proximal vein of right lower extremity (HCC)- Primary [facility]* Diagnosis Nasal congestion Other diseases of nasal cavity and sinuses [facility]* Diagnosis Acute deep vein thrombosis (DVT) of proximal vein of right lower extremity (HCC)- Primary Screening for cholesterol level Screening for lipoid disorders Hypertension, essential Unspecified essential hypertension [facility]* Diagnosis Personal history of DVT (deep vein thrombosis)- Primary Personal history of venous thrombosis and embolism [facility]* Diagnosis Personal history of DVT (deep vein thrombosis)- Primary Personal history of venous thrombosis and embolism [facility]* Diagnosis Pain of right lower [...] examination of urine [facility]* Diagnosis Personal history of DVT (deep vein thrombosis)- Primary Personal history of venous thrombosis and embolism Venous (peripheral) insufficiency Unspecified venous (peripheral) insufficiency BMI 40.0-44.9, adult (HCC) Body Mass Index 40.0-44.9, adult Ulcerative colitis with complication, unspecified location (HCC) [facility]* Diagnosis Abdominal distension- Primary Flatulence, eructation, and gas pain Chronic midline low back pain with bilateral sciatica Spinal stenosis of lumbar region without neurogenic claudication Spinal stenosis, lumbar region, without neurogenic claudication Bilateral leg edema Edema LUQ abdominal pain Abdominal pain, left upper quadrant Hypertension, essential Unspecified essential hypertension IFG (impaired fasting glucose) Impaired fasting glucose [facility]* Diagnosis Chronic midline low back pain with bilateral sciatica Spinal stenosis of lumbar region without neurogenic claudication Spinal stenosis, lumbar region, without neurogenic claudication [facility]* Diagnosis Abdominal distension Flatulence, eructation, and gas pain LUQ abdominal pain Abdominal pain, left upper quadrant [facility]* Diagnosis Calculus of gallbladder without cholecystitis without obstruction- Primary Calculus of gallbladder without mention of cholecystitis or obstruction Nausea Nausea alone Osteoarthritis of spine with radiculopathy, 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* Diagnosis Calculus of gallbladder without cholecystitis [...] malignant neoplasms, colon [facility]* Diagnosis Radiculopathy of lumbar region- Primary Thoracic or lumbosacral neuritis or radiculitis, unspecified Osteoarthritis of spine with radiculopathy, lumbar region History of lumbar laminectomy for spinal cord decompression Other postprocedural status Other idiopathic scoliosis, lumbar region [facility]* Diagnosis Calculus of gallbladder without cholecystitis without obstruction Calculus of gallbladder without mention of cholecystitis or obstruction Nausea Nausea alone documented in this encounter [facility]* Diagnosis Asthma-COPD overlap syndrome (HCC)- Primary documented in this [facility]* Diagnosis Asthma-COPD overlap syndrome (HCC)- Primary Nocturnal hypoxemia Hypoxemia Morbid obesity (HCC) Morbid obesity [facility]* Diagnosis Radiculopathy of lumbar region Thoracic or lumbosacral neuritis or radiculitis, unspecified [facility]* Diagnosis Radiculopathy of lumbar region- Primary Thoracic or lumbosacral neuritis or radiculitis, unspecified History of lumbar laminectomy for spinal cord decompression Other postprocedural status documented in this [facility]* Diagnosis Radiculopathy of lumbar region- Primary Thoracic or lumbosacral neuritis or radiculitis, unspecified History of lumbar laminectomy for spinal cord decompression Other postprocedural status Radiculopathy of lumbar region Thoracic or lumbosacral neuritis or radiculitis, unspecified History of lumbar laminectomy for spinal cord decompression Other postprocedural status [facility]* Diagnosis Left elbow pain- Primary Pain in joint, upper arm Neck pain Cervicalgia Mid back pain Backache, unspecified Hypertension, essential Unspecified essential hypertension Radiculopathy of lumbar region Thoracic or lumbosacral neuritis or radiculitis, unspecified History of lumbar laminectomy for spinal cord decompression Other postprocedural status [facility]* Diagnosis Neck pain- Primary Cervicalgia Radiculopathy of lumbar region Thoracic or lumbosacral neuritis or radiculitis, unspecified History of lumbar laminectomy for spinal cord decompression Other postprocedural status [facility]* Diagnosis History of lumbar laminectomy for [...] or radiculitis, unspecified [facility]* Diagnosis Neck pain- Primary Cervicalgia History of lumbar laminectomy for spinal cord decompression Other postprocedural status Osteoarthritis of spine with radiculopathy, lumbar region Radiculopathy of lumbar region Thoracic or lumbosacral neuritis or radiculitis, unspecified [facility]* Diagnosis Dysuria- Primary Screening for depression Encounter for screening examination for other mental health and behavioral disorders History of lumbar laminectomy for spinal cord decompression Other postprocedural status Osteoarthritis of spine with radiculopathy, lumbar region Radiculopathy of lumbar region Thoracic or lumbosacral neuritis or radiculitis, unspecified [facility]* Diagnosis Microhematuria- Primary Microscopic hematuria History of lumbar laminectomy for spinal cord decompression Other postprocedural status Osteoarthritis of spine with radiculopathy, lumbar region Radiculopathy of lumbar region Thoracic or lumbosacral neuritis or radiculitis, unspecified [facility]* Diagnosis Neck pain- Primary Cervicalgia History of lumbar laminectomy for spinal cord decompression Other postprocedural status Osteoarthritis of spine with radiculopathy, lumbar region Radiculopathy of lumbar region Thoracic or lumbosacral neuritis or radiculitis, unspecified [facility]* Diagnosis UTI symptoms- Primary Other symptoms involving urinary system History of lumbar laminectomy for spinal cord decompression Other postprocedural status Osteoarthritis of spine with radiculopathy, lumbar region Radiculopathy of lumbar region Thoracic or lumbosacral neuritis or radiculitis, unspecified [facility]* Diagnosis Neck pain- Primary Cervicalgia History of lumbar laminectomy for spinal cord decompression Other postprocedural status Osteoarthritis of spine with radiculopathy, lumbar region Radiculopathy of lumbar region Thoracic or lumbosacral neuritis or radiculitis, unspecified [facility]* Diagnosis Diverticulitis of sigmoid colon- Primary Diverticulitis of colon (without mention of hemorrhage) Hematochezia Blood in stool Acute diarrhea Diarrhea Nausea Nausea alone Abdominal discomfort Abdominal pain, unspecified site Other ulcerative colitis without complication (HCC) Obesity, Class III, BMI >= 40 Morbid obesity History of lumbar laminectomy for spinal cord decompression Other postprocedural status Osteoarthritis of spine with radiculopathy, lumbar region Radiculopathy of lumbar region Thoracic or lumbosacral neuritis or radiculitis, unspecified [facility]* Diagnosis Encounter for screening mammogram for malignant neoplasm of breast- Primary Other screening mammogram History of lumbar laminectomy for spinal cord decompression Other postprocedural status Osteoarthritis of spine with radiculopathy, lumbar region Radiculopathy of lumbar region Thoracic or lumbosacral neuritis or radiculitis, unspecified documented in this [facility]* Diagnosis Neck pain- Primary Cervicalgia History of lumbar laminectomy for spinal cord decompression Other postprocedural status Osteoarthritis of spine with radiculopathy, lumbar region Radiculopathy of lumbar region Thoracic or lumbosacral neuritis or radiculitis, unspecified [facility] N[facility] No data available for this section [facility] Hospital Discharge instructions No data available for this section [facility] Hospital Discharge instructionsAdditional Instructions You have sigmoid diverticulitis which was treated with antibiotics for a week. I prescribed [place] for pain, nausea medicine, and recommend for the next 2 days you drink clear fluids only then slowly eating bland food again. If symptoms worsen or you develop fever, worsening abdominal pain, or cannot keep down your medications come down to the ER.[facility] Work Phone: Hospital Discharge instructionsAdditional Instructions Take probiotic at least twice a day while you are on the antibiotics and preferably for the next 3 days or so when you are done with them. If you are able to collect a stool specimen at home submitted to the lab when you are able and follow-up with your doctor for the results.[facility] Work Phone: Progress note No data available for this section [facility] Reason for referral (narrative)* Diagnostic Procedure Only (Routine) - Pending Review Specialty Diagnoses / Procedures Referred By Contac t Referred To Contact [facility] Diagnoses Encounter for screening mammogram for breast cancer Procedures EMMANUELLE SCREENING SCREENING MAMMOGRAPHY BI 2-VIEW BREAST INC CAD Gray Quintana, DO [address] [place] [address] [facility] [address] [place] [address] Referral ID Status Reason Start Date Expiration Date Visits Requested Visits Authorized [id number] Pending Review Auto-Generat ed Referral 06/20/2023 07/19/2024 1 1 [facility] for referral (narrative)* Diagnostic Procedure Only (Routine) - Pending Review Specialty Diagnoses / Procedures Referred By Contac t Referred To Contact [facility] Diagnoses Encounter for screening mammogram for breast cancer Procedures EMMANUELLE SCREENING SCREENING MAMMOGRAPHY BI 2-VIEW BREAST INC CAD Gray Quintana, DO [address] [place] [address] [facility] [address] [place] [address] Referral ID Status Reason Start Date Expiration Date Visits Requested Visits Authorized [id number] Pending Review Auto-Generat ed Referral 06/27/2023 07/26/2024 1 1 [facility] for referral (narrative)* Diagnostic Procedure Only (Routine) - Authorized Specialty Diagnoses / Procedures Referred By Contac t Referred To Contact XR IMAGING Diagnoses Asymptomatic postmenopausal status Disorder of bone and cartilage Procedures DXA-AXIAL SKELETON Gray Quintana, DO [address] [place] [address] [place] [id number] Referral ID Status Reason Start Date Expiration Date Visits Requested Visits Authorized [id number] Authorized Auto-Generat ed Referral 01/23/2024 02/21/2025 1 1 * Diagnostic Procedure Only (Routine) - Authorized Specialty Diagnoses / Procedures Referred By Clay henao Referred To Contact [facility] Diagnoses Encounter for screening mammogram for malignant neoplasm of breast Procedures EMMANUELLE SCREENING SCREENING MAMMOGRAPHY BI 2-VIEW BREAST INC CAD Gray Quintana, DO [address] [place] [address] [facility] [address] [place] [id number] Referral ID Status Reason Start Date Expiration Date Visits Requested Visits Authorized [id number] Authorized Auto-Generat ed Referral 01/23/2024 02/21/2025 1 1 [facility] for referral (narrative)* Outpatient Procedure (Routine) - Authorized Specialty Diagnoses / Procedures Referred By Clay henao Referred To Contact [facility] Diagnoses Mild intermittent asthma without complication Procedures NITRIC OXIDE, EXHALED NITRIC OXIDE GAS DETERMINATION Yan Montaño MD [address] [place] [address] Respiratory [place] [address] [place] [id number] Referral ID Status Reason Start Date Expiration Date Visits Requested Visits Authorized [id number] Authorized Auto-Generat ed Referral 06/25/2025 1 1 [facility] for referral (narrative)* Diagnostic Procedure Only (Routine) - New Request Specialty Diagnoses / Procedures Referred By Clay henao Referred To Contact [facility] Diagnoses Poor sleep NEVA (obstructive sleep apnea) Procedures HOME SLEEP APNEA TEST (HSAT) SLEEP STD AIRFLOW HRT RATE&O2 SAT EFFORT Christina Rene, PIPELINES MANAGER.STATIONS SUPERINTENDENT [address] [place] [address] [address] Referral ID Status Reason Start Date Expiration Date Visits Requested Visits Authorized [id number] New Request Auto-Generat ed Referral 06/18/2024 06/18/2025 1 1 [facility] for referral (narrative)No reason for referral information availableWThe [facility] Work Phone: Reason for visit Narrative* Diagnostic Procedure Only (Routine) - Closed Specialty Diagnoses / Procedures Referred By Contac t Referred To Contact XR IMAGING Diagnoses Acute pain of right shoulder Procedures XR SHOULDER GENERAL 3V OR MORE AP/TRUE AP/OTHER RIGHT RADEX SHOULDER COMPLETE MINIMUM 2 VIEWS Carolyn Ramirez APRN.STATIONS SUPERINTENDENT [address] [place] [address] [place] [address] Referral ID Status Reason Start Date Expiration Date V isits Requested Visits Authorized [id number] Closed Auto-Generate d Referral 12/03/2023 01/01/2025 1 1 [facility] for visit Narrative* Diagnostic Procedure Only (Routine) - Closed Specialty Diagnoses / Procedures Referred By Contac t Referred To Contact XR IMAGING Diagnoses Asymptomatic postmenopausal status Disorder of bone and cartilage Procedures DXA-AXIAL SKELETON Gray Quintana, DO [address] [place] [address] [place] [address] Referral ID Status Reason Start Date Expiration Date V isits Requested Visits Authorized [id number] Closed Auto-Generate d Referral 01/23/2024 02/21/2025 1 1 [facility] for visit Narrative* Diagnostic Procedure Only (Routine) - Closed Specialty Diagnoses / Procedures Referred By Conthome t Referred To Contact [facility] Diagnoses Encounter for screening mammogram for malignant neoplasm of breast Procedures EMMANUELLE SCREENING SCREENING MAMMOGRAPHY BI 2-VIEW BREAST INC CAD Gray Quintana, DO [address] [place] [address] [facility] [address] [place] [address] Referral ID Status Reason Start Date Expiration Date V isits Requested Visits Authorized [id number] Closed Auto-Generate d Referral 01/23/2024 02/21/2025 1 1 [facility] for visit Narrative* Diagnostic Procedure Only (Urgent) - Closed Specialty Diagnoses / Procedures Referred By Contac t Referred To Contact [facility] Diagnoses Acute deep vein thrombosis (DVT) of proximal vein of right lower extremity (HCC) Pain of right lower extremity Procedures US DVT LOWER RIGHT DUP-SCAN XTR VEINS UNILATERAL/LIMITED STUDY Christina Anthony, PIPELINES MANAGER.STATIONS SUPERINTENDENT [address] [place] [address] Phone: tel: fax: [place] [address] Referral ID Status Reason Start Date Expiration Date V isits Requested Visits Authorized [id number] Closed Auto-Generate d Referral 07/28/2024 08/27/2025 1 1 [facility] for visit Narrative* Consult, Test, Treat (Routine) - Closed Specialty Diagnoses / Procedures Referred By Contac t Referred To Contact Vascular Medicine Diagnoses Acute deep vein thrombosis (DVT) of proximal vein of right lower extremity (HCC) Procedures CONSULT TO [facility]IC[facility] OFFICE[facility]UTES Christina Anthony, PIPELINES MANAGER.STATIONS SUPERINTENDENT [address] [place] [address] Phone: tel: fax: Referral ID Status Reason Start Date Expiration Date V isits Requested Visits Authorized [id number] Closed PCP Requested Referral 06/25/2024 06/25/2025 1 1 [facility] for visit Narrative* Diagnostic Procedure Only (Routine) - Closed Specialty Diagnoses / Procedures Referred By Contac t Referred To Contact XR IMAGING Diagnoses Chronic midline low back pain with bilateral sciatica Spinal stenosis of lumbar region without neurogenic claudication Procedures XR HIP BILATERAL 5V PEL/AP/LAT EACH HIP RADEX HIPS BILATERAL WITH PELVIS MINIMUM 5 VIEWS Gray Quintana DO [address] [place] [address] Phone: tel: fax: [place] [address] Referral ID Status Reason Start Date Expiration Date V isits Requested Visits Authorized [id number] Closed Auto-Generate d Referral 10/03/2024 11/02/2025 1 1 [facility] for visit Narrative* Diagnostic Procedure Only (Routine) - Closed Specialty Diagnoses / Procedures Referred By Contac t Referred To Contact US IMAGING Diagnoses Abdominal distension LUQ abdominal pain Procedures US ABD RIGHT UPPER QUADRANT US ABDOMINAL REAL TIME W/IMAGE LIMITED Gray Quintana, DO [address] [place] [address] Phone: tel: fax: [place] [address] Referral ID Status Reason Start Date Expiration Date V isits Requested Visits Authorized [id number] Closed Auto-Generate d Referral 10/03/2024 11/02/2025 1 1 [facility] for visit Narrative* MRI/CT (Routine) - Closed Specialty Diagnoses / Procedures Referred By Contac t Referred To Contact MR IMAGING Diagnoses Calculus of gallbladder without cholecystitis without obstruction Procedures MRI PANC/TRISH WO/W IVCON MRI ABDOMEN W/O & W/CONTRAST MATERIAL Bri Moeller MD [address] [place] [address] Phone: tel: fax: [place] [address] Referral ID Status Reason Start Date Expiration Date V isits Requested Visits Authorized [id number] Closed Auto-Generate d Referral 10/30/2024 11/29/2025 1 1 [facility] for visit Narrative* MRI/CT (Routine) - Closed Specialty Diagnoses / Procedures Referred By Contac t Referred To Contact MR IMAGING Diagnoses Radiculopathy of lumbar region Procedures MRI LUMBAR SPINE WO IVCON MRI SPINAL CANAL LUMBAR W/O CONTRAST MATERIAL Cherelle Mo MD [address] [facility] [place] [address] Phone: tel: fax: [place] [address] Referral ID Status Reason Start Date Expiration Date V isits Requested Visits Authorized [id number] Closed Auto-Generate d Referral 11/05/2024 12/05/2025 1 1 [facility] for visit Narrative* Diagnostic Procedure Only (Routine) - Closed Specialty Diagnoses / Procedures Referred By Contac t Referred To Contact XR IMAGING Diagnoses Left elbow pain Procedures XR ELBOW GENERAL 2V AP/LAT LEFT RADEX ELBOW 2 VIEWS Jason Francois, PIPELINES MANAGER.STATIONS SUPERINTENDENT [address] [place] [address] Phone: tel: fax: [place] [address] Referral ID Status Reason Start Date Expiration Date V isits Requested Visits Authorized [id number] Closed Auto-Generate d Referral 12/04/2024 01/03/2026 1 1 [facility] Chief Complaint and Reason for Visit Chief [...] Date COLITIS January 15, 2025 11 :51am Chief Complaint Admit Date COLITIS January 15, 2025 11 :51am ABD PAIN January 17, 2025 9: 59am Family History No Family History Records Found Relationship Condition Age at Onset Recorded Date/T tony father Malignant neoplasm of colon Unknown aunt Malignant neoplasm of colon Unknown Malignant neoplasm of breast Unknown Advance Directives No Advanced Directives Records Found Advance Directive Response Recorded Date/ Time Living Will No August 25, 2019 6:26pm Power of School Bus Driver/Mechanic No August 24 6:26pm Advance Directive Response Recorded Date/ Time Living Will No August 25, 2019 5:26pm Power of School Bus Driver/Mechanic No August 24 5:26pm Advance Directive Response Recorded Date/ Time Living Will No March 23 10:22am Power of School Bus Driver/Mechanic No March 23, 2023 10:22am Advance Directive Response Recorded Date/ Time Do you have a Healthcare Power of School Bus Driver/Mechanic? Yes January 15, 2025 11:52am Advance Directive Response Recorded Date/ Time Do you have a Healthcare Power of School Bus Driver/Mechanic? Yes January 15, 2025 11:52am Do you have a Healthcare Power of School Bus Driver/Mechanic? No January 17, 2025 10:35am Reason for Referral Specialty Diagnoses / Procedures Referred By Clay henao Referred To Contact Vascular Medicine Diagnoses Acute deep vein thrombosis (DVT) of proximal vein of right lower extremity (HCC) Procedures CONSULT TO VASCULAR MEDICINE OFFICE/OUTPATIENT [facility] 60 MINUTES Christina Anthony, PIPELINES MANAGER.STATIONS SUPERINTENDENT [address] [place] [address] Referral ID Status Reason Start Date Expiration Date Visits Requested Visits Authorized [id number] Authorized PCP Requested Referral 06/25/2024 06/25/2025 1 1 Specialty Diagnoses / Procedures Referred By Contac t Referred To Contact CT IMAGING Diagnoses SOB (shortness of breath) Procedures CT CHEST W IVCON PE DIAGNOSTIC COMPUTED TOMOGRAPHY THORAX W/CONTRAST Carolyn Ramirez, PIPELINES MANAGER.STATIONS SUPERINTENDENT [address] [place] [address] [place] [address] Referral ID Status Reason Start Date Expiration Date Visits Requested Visits Authorized [id number] Authorized Auto-Generat ed Referral 12/03/2023 01/01/2025 1 1 Specialty Diagnoses / Procedures Referred By Contac t Referred To Contact XR IMAGING Diagnoses Acute pain of right shoulder Procedures XR SHOULDER GENERAL 3V OR MORE AP/TRUE AP/OTHER RIGHT RADEX SHOULDER COMPLETE MINIMUM 2 VIEWS Carolyn Ramirez, PIPELINES MANAGER.STATIONS SUPERINTENDENT [address] [place] [address] Xr Imaging [facility] Referral ID Status Reason Start Date Expiration Date V isits Requested Visits Authorized [id number] Closed Auto-Generate d Referral 12/03/2023 01/01/2025 1 1 Specialty Diagnoses / Procedures Referred By Contac t Referred To Contact [facility] Diagnoses Chronic obstructive pulmonary disease, unspecified COPD type (HCC) Procedures LUNG DIFFUSION CAPACITY (DLCO) DIFFUSING CAPACITY Carolyn Ramirez, PIPELINES MANAGER.STATIONS SUPERINTENDENT [address] [place] [address] [facility] [place] [address] [place] [address] Referral ID Status Reason Start Date Expiration Date Visits Requested Visits Authorized [id number] Authorized Auto-Generat ed Referral 12/03/2023 01/01/2025 1 1 Specialty Diagnoses / Procedures Referred By Contac t Referred To Contact [facility] Diagnoses Chronic obstructive pulmonary disease, unspecified COPD type (HCC) Procedures LUNG VOLUMES Carolyn Ramirez, PIPELINES MANAGER.STATIONS SUPERINTENDENT [address] [place] [address] Res[facility] [place] [address] [place] [address] Referral ID Status Reason Start Date Expiration Date Visits Requested Visits Authorized [id number] Authorized Auto-Generat ed Referral 12/03/2023 01/01/2025 1 1 Specialty Diagnoses / Procedures Referred By Contac t Referred To Contact [facility] Diagnoses Chronic obstructive pulmonary disease, unspecified COPD type (HCC) Procedures SPIROMETRY WITH DILATOR IF OBSTRUCTED BRNCDILAT RSPSE SPMTRY PRE&POST-BRNCDILAT ADMN Carolyn Ramirez APRN.STATIONS SUPERINTENDENT [address] [place] [address] Res[facility] [place] [address] [place] [address] Referral ID Status Reason Start Date Expiration Date Visits Requested Visits Authorized [id number] Authorized Auto-Generat ed Referral 12/03/2023 01/01/2025 1 1 Specialty Diagnoses / Procedures Referred By Contac t Referred To Contact Carolyn Ramirez, PIPELINES MANAGER.STATIONS SUPERINTENDENT [address] [place] [address] Referral ID Status Reason Start Date Expiration Date Visits Re quested Visits Authorized [id number] Closed 1 1 Specialty Diagnoses / Procedures Referred By Contac t Referred To Contact CT IMAGING Diagnoses Pulmonary nodule Procedures CT CHEST WO IVCON DIAGNOSTIC COMPUTED TOMOGRAPHY THORAX W/O GELYT Gray Quintana, DO [address] [place] [address] [place] [address] Referral ID Status Reason Start Date Expiration Date Visits Requested Visits Authorized [id number] Pending Review Auto-Generat ed Referral 05/24/2024 1 1 Specialty Diagnoses / Procedures Referred By Contac t Referred To Contact CT IMAGING Diagnoses Lung nodule, multiple Chronic obstructive pulmonary disease, unspecified COPD type (HCC) Procedures CT CHEST WO IVCON DIAGNOSTIC COMPUTED TOMOGRAPHY THORAX W/O CNTRST Gray Quintana, [address] [place] [address] [place] [address] Referral ID Status Reason Start Date Expiration Date Visits Requested Visits Authorized [id number] Authorized Auto-Generat ed Referral 05/05/2024 1 1 Specialty Diagnoses / Procedures Referred By Contac t Referred To Contact Nutrition Diagnoses Obesity, Class II, BMI 35-39.9 NEVA (obstructive sleep apnea) Blood glucose elevated Hypertension, essential Ulcerative colitis without complications, unspecified location (HCC) Chronic kidney disease, stage 2 (mild) Procedures CONSULT TO NUTRITION THERAPY MEDICAL NUTRITION ASSMT&IVNTJ INDIV EACH 15 MD MEDICAL NUTRITION ASSMT&IVNTJ INDIV EACH 15 MD MEDICAL NUTRITION ASSMT&IVNTJ INDIV EACH 15 MD MEDICAL NUTRITION ASSMT&IVNTJ INDIV EACH 15 MD Christina Anthony, ARIAN.STATIONS SUPERINTENDENT [address] [place] [address] Referral ID Status Reason Start Date Expiration Date Visits Requested Visits Authorized [id number] Authorized PCP Requested Referral 12/27/2022 12/27/2023 1 1 Specialty Diagnoses / Procedures Referred By Contac t Referred To Contact [facility] Diagnoses Spinal stenosis of lumbar region, unspecified whether neurogenic claudication present Spinal stenosis, lumbar region, without neurogenic claudication Procedures PT REHAB FOLLOW UP ORDER THERAPEUTIC EXERCISES RE, EA 15 MIN. Tina Epps, PT [facility] [place] [address] [place] [address] Referral ID Status Reason Start Date Expiration Date Visits Requested Visits Authorized [id number] Pending Review PCP Requested Referral Auto-Generate d Referral 10/24/2022 01/22/2023 1 1 Summary Purpose Additional Source Comments Goals (unrecognized section and content) Goals may be documented in a n alternate section Care Team (unrecognized sect ion and content) Ramp Boss Relationship Specialty Start Date End Date Grya Quintana DO [address] [place], [place] [phone] PCP - General Family Medicine 07/03/22 Richard Castro [address] [place] [address] Referring Ent - Otolaryngology 01/13/22 Ramp Boss Relationship Specialty Start Date End Date Gray Quintana, DO [address] [place] [address] PCP - General Family Medicine 07/03/22 Richard Castro [address] [place] [phone] Referring Ent - Otolaryngology 01/13/22 Team Status: Active Member Role Status Dates Dr. Dru Pierre , DO Family Provider Active Dr. Gray Quintana , DO Primary Care Provider Active Team Status: Inactive Member Role Status Dates Jackie Haider SUPERVISOR YARD, SUPERVISOR YARD-C Referring Provider Active Angie Landry SUPERVISOR YARD, SUPERVISOR YARD-C Attending Provider Active Yan Reyes SUPERVISOR YARD, SUPERVISOR YARD-C Primary Care Provider Activ e Team Status: Inactive Member Role Status Dates Yan Reyes SUPERVISOR YARD, SUPERVISOR YARD-C Primary Care Provider, Refe rring Provider Active Angie Landry SUPERVISOR YARD, SUPERVISOR YARD-C Attending Provider Active Team Status: Inactive Member Role Status Dates Dr. Paulie Montaño , DO Attending Provider, Referring Pro vider Active Yan Reyes SUPERVISOR YARD, SUPERVISOR YARD-C Primary Care Provider Activ e Team Status: Inactive Member Role Status Dates Dr. Gray Quintana , DO Primary Care Provider Active Angie Landry SUPERVISOR YARD, SUPERVISOR YARD-C Attending Provider Active Ramp Boss Relationship Specialty Start Date End Date Gray Quintana, DO [address] [place] [address] PCP - General Family Medicine 07/03/22 Richard Castro [address] [place] [phone] Referring Ent - Otolaryngology 01/13/22 Ramp Boss Relationship Specialty Start Date End Date Gray Quintana DO [address] [place] [address] PCP - General Family Medicine 07/03/22 Richard Castro [address] [place] [address] Referring Ent - Otolaryngology 01/13/22 Ramp Boss Relationship Specialty Start Date End Date Gray Quintana, DO [address] [place] [address] PCP - General Family Medicine 07/03/22 Richard Castro [address] [place] [address] Referring Ent - Otolaryngology 01/13/22 Ramp Boss Relationship Specialty Start Date End Date Gray Quintana, DO [address] [place] [address] PCP - General Family Medicine 07/03/22 Richard Castro [address] [place] [address] Referring Ent - Otolaryngology 01/13/22 Ramp Boss Relationship Specialty Start Date End Date Gray Quintana, DO [address] [place] [address] PCP - General Family Medicine 07/03/22 Richard Castro [address] [place] [address] Referring Ent - Otolaryngology 01/13/22 Ramp Boss Relationship Specialty Start Date End Date Gray Quintana, DO [address] [place] [address] PCP - General Family Medicine 07/03/22 Richard Castro [address] [place] [address] Referring Ent - Otolaryngology 01/13/22 Ramp Boss Relationship Specialty Start Date End Date Gray Quintana, DO [address] [place] [address] PCP - General Family Medicine 07/03/22 Richard Castro [address] [facility] [place] [address] Referring Ent - Otolaryngology 01/13/22 Ramp Boss Relationship Specialty Start Date End Date Gray Quintana DO [address] [facility] [address] PCP - General Family Medicine 07/03/22 Richard Castro [address] [place] [address] Referring Ent - Otolaryngology 01/13/22 Ramp Boss Relationship Specialty Start Date End Date Gray Quintana DO [address] [place] [address] PCP - General Family Medicine 07/03/22 Richard Castro [address] [place] [address] Referring Ent - Otolaryngology 01/13/22 Ramp Boss Relationship Specialty Start Date End Date Gray Quintana DO [address] [facility] [place] [address] PCP - General Family Medicine 07/03/22 Richard Castro [address] [place] [address] Referring Ent - Otolaryngology 01/13/22 Ramp Boss Relationship Specialty Start Date End Date Gray Quintana DO [address] [place] [address] PCP - General Family Medicine 07/03/22 Richard Castro [address] [facility] [place] [address] Referring Ent - Otolaryngology 01/13/22 Ramp Boss Relationship Specialty Start Date End Date Gray Quintana DO [address] [facility] [place] [place], [place] [address]8871 PCP - General Family Medicine 07/03/22 Richard Castro [address] [facility] [place] [phone] Referring Ent - Otolaryngology 01/13/22 Ramp Boss Relationship Specialty Start Date End Date Gray Quintana DO [address] [facility] [place] [address] PCP - General Family Medicine 07/03/22 Richard Castro [address] [place] [phone] Referring Ent - Otolaryngology 01/13/22 Ramp Boss Relationship Specialty Start Date End Date Gray Quintana DO [address] [place] [place], [place] [address]68[address] PCP - General Family Medicine 07/03/22 Richard Castro [address] [facility] [place] [phone] Referring Ent - Otolaryngology 01/13/22 Ramp Boss Relationship Specialty Start Date End Date Gray Quintana DO [address] [facility] [place] [phone] PCP - General Family Medicine 07/03/22 Richard Castro [address] [place] [phone] Referring Ent - Otolaryngology 01/13/22 Ramp Boss Relationship Specialty Start Date End Date Gray Quintana DO [address] [place], [place] 330471 PCP - General Family Medicine 07/03/22 Richard Castro [address] [place] [phone] Referring Ent - Otolaryngology 01/13/22 Ramp Boss Relationship Specialty Start Date End Date Gray Quintana DO [address] [place], [place] 741561 PCP - General Family Medicine 07/03/22 Richard Castro [address] [place] [phone] Referring Ent - Otolaryngology 01/13/22 Team Status: Active Member Role Status Dates Dr. Gray Quintana DO Primary Care Provider Active Dr. Nicholas Dorsey MD Attending Provider, Referring Provider Active Team Status: Inactive Member Role Status Dates Dr. Gray Quintana DO Primary Care Provider Active Dr. Jordin Najera DO Attending Provider, Emergency Archie escudero Active Team Status: Inactive Member Role Status Dates Dr. Gray Quintana DO Primary Care Provider Active CARYN FOX Attending Provider Active Ramp Boss Relationship Specialty Start Date End Date Gray Quintana DO [address] [place], [place] 779831 PCP - General Family Medicine 07/03/22 Richard Castro [address] [facility] [place] [phone] Referring Ent - Otolaryngology 01/13/22 Ramp Boss Relationship Specialty Start Date End Date Gray Quintana DO [address] [place] [address] PCP - General Family Medicine 07/03/22 Richard Castro [address] [facility] [place] [phone] Referring Ent - Otolaryngology 01/13/22 Ramp Boss Relationship Specialty Start Date End Date Gray Quintana DO [address] [place] [place] [address] PCP - General Family Medicine 07/03/22 Richard Castro [address] [facility] [place] [address] Referring Ent - Otolaryngology 01/13/22 Ramp Boss Relationship Specialty Start Date End Date Gray Quintana DO [address] [place] [place], [place] 662081 PCP - General Family Medicine 07/03/22 Richard Castro [address] [place] [phone] Referring Ent - Otolaryngology 01/13/22 Ramp Boss Relationship Specialty Start Date End Date Gray Quintana DO [address] [facility] [place] 162412 [phone] PCP - General Family Medicine 07/03/22 Richard Castro [address] [place] [phone] Referring Ent - Otolaryngology 01/13/22 Ramp Boss Relationship Specialty Start Date End Date Gray Quintana DO [address] [place], [place] 873983 [phone] PCP - General Family Medicine 07/03/22 Richard Castro [address] [place] [address] Referring Ent - Otolaryngology 01/13/22 Ramp Boss Relationship Specialty Start Date End Date Gray Quintana DO [address] [facility] [place], [place] 012141 PCP - General Family Medicine 07/03/22 Richard Castro [address] [place] [phone] Referring Ent - Otolaryngology 01/13/22 Ramp Boss Relationship Specialty Start Date End Date Gray Quintana DO [address] [place], [place] 076551 PCP - General Family Medicine 07/03/22 Richard Castro [address] [facility] [place] [phone] Referring Ent - Otolaryngology 01/13/22 Ramp Boss Relationship Specialty Start Date End Date Gray Quintana DO [address] [facility] [place], [place] 566543 [phone] PCP - General Family Medicine 07/03/22 Richard Castro [address] [place] [phone] Referring Ent - Otolaryngology 01/13/22 Ramp Boss Relationship Specialty Start Date End Date Gray Quintana DO [address] [place], [place] 630451 PCP - General Family Medicine 07/03/22 Richard Castro [address] [place] [phone] Referring Ent - Otolaryngology 01/13/22 Ramp Boss Relationship Specialty Start Date End Date Gray Quintana DO [address] [place] [place], [place] 088461 PCP - General Family Medicine 07/03/22 Richard Castro [address] [place] [phone] Referring Ent - Otolaryngology 01/13/22 Ramp Boss Relationship Specialty Start Date End Date Gray Quintana DO [address] [place] [place], [place] [address]25401 PCP - General Family Medicine 07/03/22 Richard Castro [address] [place] [phone] Referring Ent - Otolaryngology 01/13/22 Ramp Boss Relationship Specialty Start Date End Date Gray Quintana DO [address] [place] [place], [place] 370721 PCP - General Family Medicine 07/03/22 Richard Castro [address] [facility] [place] [phone] Referring Ent - Otolaryngology 01/13/22 Ramp Boss Relationship Specialty Start Date End Date Gray Quintana DO [address] [facility] [place], [place] 822501 PCP - General Family Medicine 07/03/22 Richard Castro [address] [facility] [place] [phone] Referring Ent - Otolaryngology 01/13/22 Ramp Boss Relationship Specialty Start Date End Date Gray Quintana DO [address] [facility] [place] 345551 PCP - General Family Medicine 07/03/22 Richard Castro [address] [facility] [place] [address] Referring Ent - Otolaryngology 01/13/22 Ramp Boss Relationship Specialty Start Date End Date Gray Quintana DO [address] [facility] [address]901 PCP - General Family Medicine 07/03/22 Richard Castro [address] [facility] [place] [phone] Referring Ent - Otolaryngology 01/13/22 Ramp Boss Relationship Specialty Start Date End Date Gray Quintana DO [address] [place], [place] 442413 [phone] PCP - General Family Medicine 07/03/22 Richard Castro [address] [facility] [place] [phone] Referring Ent - Otolaryngology 01/13/22 Ramp Boss Relationship Specialty Start Date End Date Gray Quintana DO [address] [facility] [place] 301371 PCP - General Family Medicine 07/03/22 Richard Castro [address] [place] [phone] Referring Ent - Otolaryngology 01/13/22 Ramp Boss Relationship Specialty Start Date End Date Gray Quintana DO [address] [place], [place] 765811 PCP - General Family Medicine 07/03/22 Richard Castro [address] [place] [phone] Referring Ent - Otolaryngology 01/13/22 Ramp Boss Relationship Specialty Start Date End Date Gray Quintana DO [address] [place], [place] 497061 PCP - General Family Medicine 07/03/22 Richard Castro [address] [place] [phone] Referring Ent - Otolaryngology 01/13/22 Ramp Boss Relationship Specialty Start Date End Date Gray Quintana DO [address] [place], [place] 15725837 [phone] PCP - General Family Medicine 07/03/22 Richard Castro [address] [facility] [place] [phone] Referring Ent - Otolaryngology 01/13/22 Ramp Boss Relationship Specialty Start Date End Date Gray Quintana DO [address] [facility] [place] 533[address] [phone] PCP - General Family Medicine 07/03/22 Richard Castro [address] [facility] [place] [phone] Referring Ent - Otolaryngology 01/13/22 Ramp Boss Relationship Specialty Start Date End Date Gray Quintana DO [address] [facility] [place], [place] 874631 PCP - General Family Medicine 07/03/22 Richard Castro [address] [place] [phone] Referring Ent - Otolaryngology 01/13/22 Ramp Boss Relationship Specialty Start Date End Date Gray Quintana DO [address] [place] [place] [address] PCP - General Family Medicine 07/03/22 Richard Castro [address] [facility] [place] [phone] Referring Ent - Otolaryngology 01/13/22 Ramp Boss Relationship Specialty Start Date End Date Gray Quintana DO [address] [facility] [place] [address] PCP - General Family Medicine 07/03/22 Richard Castro [address] [place] [phone] Referring Ent - Otolaryngology 01/13/22 Ramp Boss Relationship Specialty Start Date End Date Gray Quintana DO [address] [place] [place], [place] 651341 PCP - General Family Medicine 07/03/22 Richard Castro [address] [place] [phone] Referring Ent - Otolaryngology 01/13/22 Ramp Boss Relationship Specialty Start Date End Date Gray Quintana DO [address] [facility] [place] [address] PCP - General Family Medicine 07/03/22 Richard Castro [address] [place] [phone] Referring Ent - Otolaryngology 01/13/22 Christina Anthony, PIPELINES MANAGER.STATIONS SUPERINTENDENT [address] [facility] [place] [address] Celery Packer Family Medicine 05/04/24 Amelia Trotter APRN.STATIONS SUPERINTENDENT [address] [place] [address] Celery Packer Family Medicine 05/04/24 Ramp Boss Relationship Specialty Start Date End Date Gray Quintana DO [address] [facility] [place], [place] [phone] PCP - General Family Medicine 07/03/22 Richard Castro [address] [place] [phone] Referring Ent - Otolaryngology 01/13/22 Christina Anthony, PIPELINES MANAGER.STATIONS SUPERINTENDENT [address] [place] [address] [facility] 05/04/24 Amelia Trotter, PIPELINES MANAGER.STATIONS SUPERINTENDENT [address] [place] [address] [facility] Ramp Boss Relationship Specialty Start Date End Date Gray Quintana DO [address] [place] [address] PCP - General Family Medicine 07/03/22 Richard Castro [address] [place] [phone] Referring Ent - Otolaryngology 01/13/22 Christina Anthony, PIPELINES MANAGER.STATIONS SUPERINTENDENT [address] [place] [address] [facility] 05/04/24 Amelia Trotter, PIPELINES MANAGER.STATIONS SUPERINTENDENT [address] [place] [address] [facility]ly [facility] 05/04/24 Ramp Boss Relationship Specialty Start Date End Date Gray Quintana DO [address] [place] [address] PCP - General Family Medicine 07/03/22 Richard aCstro [address] [place] [address] Referring Ent - Otolaryngology 01/13/22 Christina Anthony, PIPELINES MANAGER.STATIONS SUPERINTENDENT [address] [place] [address] [facility] 05/04/24 DaniaAmelia, PIPELINES MANAGER.STATIONS SUPERINTENDENT [address] [place] [address] Celery Packer Family [facility] 05/04/24 Ramp Boss Relationship Specialty Start Date End Date Gray Quintana DO [address] [place] [address] PCP - General Family Medicine 07/03/22 Richard Castro [address] [place] [address] Referring Ent - Otolaryngology 01/13/22 Christina Anthony, PIPELINES MANAGER.STATIONS SUPERINTENDENT [address] [place] [address] Celery Packer Family [facility] 05/04/24 DaniaAmelia, PIPELINES MANAGER.STATIONS SUPERINTENDENT [address] [place] [address] Celery Packer Family [facility] 05/04/24 Ramp Boss Relationship Specialty Start Date End Date Gray Quintana DO [address] [place] [address] PCP - General Family Medicine 07/03/22 Richard Castro [address] [place] [phone] Referring Ent - Otolaryngology 01/13/22 Christina Anthony, PIPELINES MANAGER.STATIONS SUPERINTENDENT [address] [place] [address] [facility] 05/04/24 Amelia Trotter, PIPELINES MANAGER.STATIONS SUPERINTENDENT [address] [place], [place] 801926 [phone] [facility] 05/04/24 Ramp Boss Relationship Specialty Start Date End Date Gray Quintana DO [address] [place], [place] 431291 [phone] PCP - General Family Medicine 07/03/22 Richard Castro [address] [place] [phone] Referring Ent - Otolaryngology 01/13/22 Christina Anthony, PIPELINES MANAGER.STATIONS SUPERINTENDENT [address] [place], [place] 453369 [phone] [facility] 05/04/24 Amelia Trotter, PIPELINES MANAGER.STATIONS SUPERINTENDENT [address] [place], [place] 307992 [phone] [facility] 05/04/24 Ramp Boss Relationship Specialty Start Date End Date Gray Quintana DO [address] [place] [address] PCP - General Family Medicine 07/03/22 Richard Castro [address] [place] [phone] Referring Ent - Otolaryngology 01/13/22 Christina Anthony, PIPELINES MANAGER.STATIONS SUPERINTENDENT [address] [place] [address] Celery Packer Family [facility] 05/04/24 Amelia Trotter, PIPELINES MANAGER.STATIONS SUPERINTENDENT [address] [place] [address] [facility]/04/[facility] Ramp Boss Relationship Specialty Start Date End Date Gray Quintana DO [address] [place] [address] PCP - General Family Medicine 07/03/22 Richard Castro [address] [facility] [place] [address]1029513-98[address] Referring Ent - Otolaryngology 01/13/22 Christina Anthony, PIPELINES MANAGER.STATIONS SUPERINTENDENT [address] [place] [address] [facility]ly [facility] 05/04/24 DaniaAmelia, PIPELINES MANAGER.STATIONS SUPERINTENDENT [address] [facility] [place] [address] [facility] 05/04/24 Ramp Boss Relationship Specialty Start Date End Date Gray Quintana DO [address] [facility] [place] [address] [phone] PCP - General Family Medicine 07/03/22 Richard Castro [address] [facility] [place] [phone] Referring Ent - Otolaryngology 01/13/22 Christina Anthony, PIPELINES MANAGER.STATIONS SUPERINTENDENT [address] [place], [place] 583387 [phone] [facility] 05/04/24 Amelia Trotter, PIPELINES MANAGER.STATIONS SUPERINTENDENT [address] [place], [place] 763278 [phone] [facility] 05/04/[facility] Ramp Boss Relationship Specialty Start Date End Date Gray Quintana DO [address] [place], [place] 911520 [phone] PCP - General Family Medicine 07/03/22 Richard Castro [address] [place] [phone] Referring Ent - Otolaryngology 01/13/22 Christina Anthony, PIPELINES MANAGER.STATIONS SUPERINTENDENT [address] [place], [place] 609357 [phone] [facility] 05/04/24 Amelia Trotter, PIPELINES MANAGER.STATIONS SUPERINTENDENT [address] [place], [place] 367761 [facility] 05/04/24 Ramp Boss Relationship Specialty Start Date End Date Gray Quintana DO [address] [place], [place] 797550 [phone] PCP - General Family Medicine 07/03/22 Richard Castro [address] [place] [phone] Referring Ent - Otolaryngology 01/13/22 Christina Anthony, PIPELINES MANAGER.STATIONS SUPERINTENDENT [address] [place], [place] 282121 [facility] 05/04/24 Amelia Trotter APRN.STATIONS SUPERINTENDENT [address] [place], [place] 385005 [phone] [facility] Ramp Boss Relationship Specialty Start Date End Date Gray Quintana DO [address] [place], [place] 383603 [phone] PCP - General Family Medicine 07/03/22 Richard Castro [address] [place] [phone] Referring Ent - Otolaryngology 01/13/22 Christina Anthony, PIPELINES MANAGER.STATIONS SUPERINTENDENT [address] [place], [place] 942239 [phone] [facility] 05/04/24 Amelia Trotter, ARIAN.STATIONS SUPERINTENDENT [address] [place], [place] 543206 [phone] [facility] 05/04/24 Ramp Boss Relationship Specialty Start Date End Date Gray Quintana DO [address] [place], [place] 889688 [phone] PCP - General Family Medicine 07/03/22 Richard Castro [address] [place] [phone] Referring Ent - Otolaryngology 01/13/22 Christina Anthony, PIPELINES MANAGER.STATIONS SUPERINTENDENT [address] [place] [address] [facility] 05/04/24 Amelia Trotter, PIPELINES MANAGER.STATIONS SUPERINTENDENT [address] [place] [address] [facility] 05/04/24 Ramp Boss Relationship Specialty Start Date End Date Gray Quintana DO [address] [place] [address] PCP - General Family Medicine 07/03/22 Richard Castro [address] [place] [address] Referring Ent - Otolaryngology 01/13/22 Christina Anthony, PIPELINES MANAGER.STATIONS SUPERINTENDENT [address] [place] [address] [facility] 05/04/24 Amelia Trotter, PIPELINES MANAGER.STATIONS SUPERINTENDENT [address] [place] [address] [facility] 05/04/24 Ramp Boss Relationship Specialty Start Date End Date Gray Quintana DO [address] [place] [address] PCP - General Family Medicine 07/03/22 Richard Castro [address] [place] [address] Referring Ent - Otolaryngology 01/13/22 Christina Anthony, PIPELINES MANAGER.STATIONS SUPERINTENDENT [address] [facility] [address] [facility] 05/04/24 Amelia Trotter, PIPELINES MANAGER.STATIONS SUPERINTENDENT [address] [facility] [place] [address] [facility] 05/04/24 Ramp Boss Relationship Specialty Start Date End Date Gray Quintana DO [address] [facility] [place] [address] PCP - General Family Medicine 07/03/22 Richard Castro [address] [place] [phone] Referring Ent - Otolaryngology 01/13/22 Amelia Trotter, PIPELINES MANAGER.STATIONS SUPERINTENDENT [address] [place] [address] Celery Packer Family [facility] 05/04/24 Ramp Boss Relationship Specialty Start Date End Date Gray Quintana DO [address] [facility] [place] [address] PCP - General Family Medicine 07/03/22 Richard Castro [address] [place] [address] Referring Ent - Otolaryngology 01/13/22 Amelia Trotter, PIPELINES MANAGER.STATIONS SUPERINTENDENT [address] [place] [address] [facility] 05/04/24 Ramp Boss Relationship Specialty Start Date End Date Gray Quintana DO [address] [place] [address] PCP - General Family Medicine 07/03/22 Richard Castro [address] [facility] [place] [phone] Referring Ent - Otolaryngology 01/13/22 Amelia Trotter, ARIAN.STATIONS SUPERINTENDENT [address] [place] [address] [facility] 05/04/24 Ramp Boss Relationship Specialty Start Date End Date Gray Quintana DO [address] [facility] [place] [address] PCP - General Family Medicine 07/03/22 Richard Castro [address] [place] [phone] Referring Ent - Otolaryngology 01/13/22 Amelia Trotter, PIPELINES MANAGER.STATIONS SUPERINTENDENT [address] [place] [address] Celery Packer Family [facility] 05/04/24 Ramp Boss Relationship Specialty Start Date End Date Gray Quintana DO [address] [facility] [facility] [place] [place], [place] 96[address]83 [phone] PCP - General Family Medicine 07/03/22 Richard Castro [address] [place] [phone] Referring Ent - Otolaryngology 01/13/22 Amelia Trotter, PIPELINES MANAGER.STATIONS SUPERINTENDENT [address] [place], [place] [address] [facility] 05/04/24 Ramp Boss Relationship Specialty Start Date End Date Gray Quintana DO [address] [place] [address] PCP - General Family Medicine 07/03/22 Richard Castro [address] [place] [address] Referring Ent - Otolaryngology 01/13/22 Amelia Trotter APRN.STATIONS SUPERINTENDENT [address] [place] [address] [facility] 05/04/24 Ramp Boss Relationship Specialty Start Date End Date Gray Quintana DO [address] [place] [address] PCP - General Family Medicine 07/03/22 Richard Castro [address] [place] [address] Referring Ent - Otolaryngology 01/13/22 Amelia Trotter APRN.STATIONS SUPERINTENDENT [address] [place] [address] [facility] 05/04/24 Ramp Boss Relationship Specialty Start Date End Date Gray Quintana DO [address] [place] 608335 [phone] PCP - General Family Medicine 07/03/22 Richard Castro [address] [place] [phone] Referring Ent - Otolaryngology 01/13/22 Amelia Trotter, PIPELINES MANAGER.STATIONS SUPERINTENDENT [address] [place] [address] Celery Packer [facility] 05/04/24 Ramp Boss Relationship Specialty Start Date End Date Gray Quintana DO [address] [facility] [place] [address] PCP - General Family Medicine 07/03/22 Richard Castro [address] [place] [phone] Referring Ent - Otolaryngology 01/13/22 Amelia Trotter, PIPELINES MANAGER.STATIONS SUPERINTENDENT [address] [facility] [address] [facility]/04/[facility] Ramp Boss Relationship Specialty Start Date End Date Gray Quintana DO [address] [facility] [place] [address] PCP - General Family Medicine 07/03/22 Richard Castro [address] [place] [address] Referring Ent - Otolaryngology 01/13/22 DaniaAmelia, PIPELINES MANAGER.STATIONS SUPERINTENDENT [address] [facility] [place] [address] [facility] 05/04/24 Ramp Boss Relationship Specialty Start Date End Date Gray Quintana DO [address] [facility] [address] PCP - General Family Medicine 07/03/22 Richard Castro [address] [place] [phone] Referring Ent - Otolaryngology 01/13/22 Amelia Trotter, PIPELINES MANAGER.STATIONS SUPERINTENDENT [address] [place], [place] 788061 Celery Packer Family [facility] 05/04/24 Ramp Boss Relationship Specialty Start Date End Date Gray Quintana DO [address] [place], [place] 602402 [phone] PCP - General Family Medicine 07/03/22 Richard Castro [address] [place] [phone] Referring Ent - Otolaryngology 01/13/22 Amelia Trotter, PIPELINES MANAGER.STATIONS SUPERINTENDENT [address] [place], [place] 181519 [phone] [facility] Ramp Boss Relationship Specialty Start Date End Date Gray Quintana DO [address] [place], [place] 602441 [phone] PCP - General Family Medicine 07/03/22 Richard Castro [address] [place] [phone] Referring Ent - Otolaryngology 01/13/22 Amelia Trotter, PIPELINES MANAGER.STATIONS SUPERINTENDENT [address] [place], [place] 90007[address] [phone] [facility] 05/04/24 Ramp Boss Relationship Specialty Start Date End Date Gray Quintana DO [address] [place], [place] 352167 [phone] PCP - General Family Medicine 07/03/22 Richard Castro [address] [place] [address]83496[address]1144 Referring Ent - Otolaryngology 01/13/22 Amelia Trotter, PIPELINES MANAGER.STATIONS SUPERINTENDENT [address] [place], [place] 448321 [phone] [facility] 05/04/24 Jean Carlos Brown, PIPELINES MANAGER.STATIONS SUPERINTENDENT [address] [place] [address] [facility] 11/10/24 Ramp Boss Relationship Specialty Start Date End Date Gray Quintana DO [address] [place] [address] PCP - General Family Medicine 07/03/22 Richard Castro [address] [place] [phone] Referring Ent - Otolaryngology 01/13/22 Amelia Trotter, PIPELINES MANAGER.STATIONS SUPERINTENDENT [address] [place] [address] [facility] 05/04/24 Jean Carlos Brown, PIPELINES MANAGER.STATIONS SUPERINTENDENT [address] [place] [address] [facility] 11/10/24 Ramp Boss Relationship Specialty Start Date End Date Gray Quintana DO [address] [place] [address] PCP - General Family Medicine 07/03/22 Richard Castro [address] [place] [phone] Referring Ent - Otolaryngology 01/13/22 DaniaAmelia, PIPELINES MANAGER.STATIONS SUPERINTENDENT [address] [place] [address] [facility] 05/04/24 Jean Carlos Brown, PIPELINES MANAGER.STATIONS SUPERINTENDENT [address] [place] [address] Celery Packer Family [facility] 11/10/24 Ramp Boss Relationship Specialty Start Date End Date Gray Quintana DO [address] [place] [address] PCP - General Family Medicine 07/03/22 Richard Castro [address] [place] [phone] Referring Ent - Otolaryngology 01/13/22 DaniaAmelia, PIPELINES MANAGER.STATIONS SUPERINTENDENT [address] [place] [address] [facility] 05/04/24 Jean Carlos Brown, PIPELINES MANAGER.STATIONS SUPERINTENDENT [address] [place] [address] Celery Packer Family [facility] 11/10/24 Ramp Boss Relationship Specialty Start Date End Date Gray Quintana DO [address] [place] [address] PCP - General Family Medicine 07/03/22 Richard Castro [address] [place] [phone] Referring Ent - Otolaryngology 01/13/22 Amelia Trotter APRN.STATIONS SUPERINTENDENT [address] [place] [address] [facility] 05/04/24 Jean Carlos Brown APRN.STATIONS SUPERINTENDENT [address] [place] [address] Celery Packer Family [facility] 11/10/24 Ramp Boss Relationship Specialty Start Date End Date Gray Quintana DO [address] [place] [address] PCP - General Family Medicine 07/03/22 Richard Castro [address] [place] [phone] Referring Ent - Otolaryngology 01/13/22 Amelia Trotter APRN.STATIONS SUPERINTENDENT [address] [place] [address] Celery Packer [facility] 05/04/24 Jean Carlos Brown APRN.STATIONS SUPERINTENDENT [address] [place] [address] [facility] Ramp Boss Relationship Specialty Start Date End Date Gray Quintana DO [address] [place] [address] PCP - General Family Medicine 07/03/22 Richard Castro [address] [place] [phone] Referring Ent - Otolaryngology 01/13/22 Amelia Trotter, ARIAN.STATIONS SUPERINTENDENT [address] [place] [address] [facility] 05/04/24 Jean Carlos Brown, PIPELINES MANAGER.STATIONS SUPERINTENDENT [address] [place] [address] Celery Packer Family [facility] 11/10/24 Ramp Boss Relationship Specialty Start Date End Date Gray Quintana DO [address] [place] [address] PCP - General Family Medicine 07/03/22 Richard Castro [address] [place] [phone] Referring Ent - Otolaryngology 01/13/22 Amelia Trotter, PIPELINES MANAGER.STATIONS SUPERINTENDENT [address] [place] [address] [facility] 05/04/24 Jean Carlos Brown, PIPELINES MANAGER.STATIONS SUPERINTENDENT [address] [place], [place] 512631 [facility] 11/10/24 Ramp Boss Relationship Specialty Start Date End Date Gray Quintana DO [address] [place] [address] PCP - General Family Medicine 07/03/22 Richard Castro [address] [place] [phone] Referring Ent - Otolaryngology 01/13/22 Amelia Trotter, PIPELINES MANAGER.STATIONS SUPERINTENDENT [address] [place], [place] 410378 [phone] [facility] 05/04/24 Jean Carlos Brown, PIPELINES MANAGER.STATIONS SUPERINTENDENT [address] [place], [place] 332321 [facility] 11/10/24 Ramp Boss Relationship Specialty Start Date End Date Gray Quintana DO [address] [place] [address] PCP - General Family Medicine 07/03/22 Richard Castro [address] [place] [phone] Referring Ent - Otolaryngology 01/13/22 Amelia Trotter, PIPELINES MANAGER.STATIONS SUPERINTENDENT [address] [place], [place] 435212 [phone] [facility] 05/04/24 Jean Carlos Brown, PIPELINES MANAGER.STATIONS SUPERINTENDENT [address] [place], [place] 600011 [facility] 11/10/24 Ramp Boss Relationship Specialty Start Date End Date Gray Quintana DO [address] [place], [place] 81738648 [phone] PCP - General Family Medicine 07/03/22 Richard Castro [address] [place] [phone] Referring Ent - Otolaryngology 01/13/22 Amelia Trotter, PIPELINES MANAGER.STATIONS SUPERINTENDENT [address] [place], [place] 094112 [phone] [facility] 05/04/24 Jean Carlos Brown, PIPELINES MANAGER.STATIONS SUPERINTENDENT [address] [place], [place] 774186 [phone] [facility] 11/10/24 Ramp Boss Relationship Specialty Start Date End Date Gray Quintana DO [address] [place] [address] PCP - General Family Medicine 07/03/22 Richard Castro [address] [place] [phone] Referring Ent - Otolaryngology 01/13/22 Amelia Trotter, PIPELINES MANAGER.STATIONS SUPERINTENDENT [address] [place] [address] [facility] 05/04/24 Jean Carlos Brown, PIPELINES MANAGER.STATIONS SUPERINTENDENT [address] [place], [place] 221177 [phone] [facility] 11/10/24 Ramp Boss Relationship Specialty Start Date End Date Gray Quintana DO [address] [place] [address] PCP - General Family Medicine 07/03/22 Richard Castro [address] [place] [phone] Referring Ent - Otolaryngology 01/13/22 Amelia Trotter, PIPELINES MANAGER.STATIONS SUPERINTENDENT [address] [place] [address] [facility] 05/04/24 Jean Carlos Brown, PIPELINES MANAGER.STATIONS SUPERINTENDENT [address] [place] [address] [facility]/10/[facility] Ramp Boss Relationship Specialty Start Date End Date Gray Quintana DO [address] [place] [address] PCP - General Family Medicine 07/03/22 Richard Castro [address] [place] [phone] Referring Ent - Otolaryngology 01/13/22 DaniaAmelia, PIPELINES MANAGER.STATIONS SUPERINTENDENT [address] [place] [address] Celery Packer Family [facility] 05/04/24 Jean Carlos Brown, PIPELINES MANAGER.STATIONS SUPERINTENDENT [address] [place] [address] [facility] Family [facility] 11/10/24 Ramp Boss Relationship Specialty Start Date End Date Gray Quintana DO [address] [place] [address] PCP - General Family Medicine 07/03/22 Richard Castro [address] [place] [phone] Referring Ent - Otolaryngology 01/13/22 Amelia Trotter APRN.STATIONS SUPERINTENDENT [address] [place] [address] [facility] 05/04/24 Jean Carlos Brown APRN.STATIONS SUPERINTENDENT [address] [place] [address] [facility] 11/10/24 Team Status: Active Member Role/Relationship Status Dates Dr. Gray Quintana DO Primary Care Provider Active Team Status: Inactive Member Role/Relationship Status Dates Dr. Gray Quintana DO Primary Care Provider Active Start: January 15, 2025 End: January 15, 2025 Dr. Jordin Najera DO Emergency Provider Active Start: January 15, 2025 End: January 15, 2025 Ramp Boss Relationship Specialty Start Date End Date Gray Quintana DO [address] [place] [address] PCP - General Family Medicine 07/03/22 Richard Castro [address] [place] [phone] Referring Ent - Otolaryngology 01/13/22 Amelia Trotter PIPELINES MANAGER.STATIONS SUPERINTENDENT [address] [facility], [place] [address] [facility] 05/04/24 Jean Carlos Brown, ARIAN.STATIONS SUPERINTENDENT [address] [place], [place] 610511 [facility] 11/10/24 Team Status: Inactive Member Role/Relationship Status Dates Dr. Gray Quintana DO Primary Care Provider Active Start: January 17, 2025 End: January 17, 2025 Dr. Varghese Lazo MD Emergency Provider Active Start: January 17, 2025 End: January 17, 2025 Ramp Boss Relationship Specialty Start Date End Date Gray Quintana DO [address] [place] [address] PCP - General Family Medicine 07/03/22 Richard Castro [address] [place] [phone] Referring Ent - Otolaryngology 01/13/22 Amelia Trotter, PIPELINES MANAGER.STATIONS SUPERINTENDENT [address] [facility], [place] 3680[address] [facility] 05/04/24 Jean Carlos Brown, PIPELINES MANAGER.STATIONS SUPERINTENDENT [address] [facility], [place] [address] Celery Packer [facility] 11/10/24 Ramp Boss Relationship Specialty Start Date End Date Gray Quintana DO [address] [place] [address] PCP - General Family Medicine 07/03/22 Richard Castro [address] [place] [phone] Referring Ent - Otolaryngology 01/13/22 Amelia Trotter, PIPELINES MANAGER.STATIONS SUPERINTENDENT [address] [place] [address] [facility] 05/04/24 Jean Carlos Brown PIPELINES MANAGER.STATIONS SUPERINTENDENT [address] [place] [address] Celery Packer [facility] 11/10/24 Ramp Boss Relationship Specialty Start Date End Date Gray Quintana DO [address] [place] [address] PCP - General Family Medicine 07/03/22 Richard Castro [address] [place] [phone] Referring Ent - Otolaryngology 01/13/22 Amelia Trotter, PIPELINES MANAGER.STATIONS SUPERINTENDENT [address] [place], [place] 145261 [facility] 05/04/24 Jean Carlos Brown, PIPELINES MANAGER.STATIONS SUPERINTENDENT [address] [place], [place] 144571 Celery Packer [facility] 11/10/24 Ramp Boss Relationship Specialty Start Date End Date Gray Quintana DO [address] [place], [place] 814871 PCP - General Family Medicine 07/03/22 Richard Castro [address] [place] [phone] Referring Ent - Otolaryngology 01/13/22 Amelia Trotter, PIPELINES MANAGER.STATIONS SUPERINTENDENT [address] [place] [address] [facility] 05/04/24 Jean Carlos Brown, PIPELINES MANAGER.STATIONS SUPERINTENDENT [address] [place], [place] 237081 [facility] 11/10/24 Ramp Boss Relationship Specialty Start Date End Date Gray Quintana DO [address] [place], [place] 134821 PCP - General Family Medicine 07/03/22 Richard Castro [address] [place] [phone] Referring Ent - Otolaryngology 01/13/22 Amelia Trotter APRN.CNP [address] [place], [place] 148121 [facility] 05/04/24 Jean Carlos Brown APRN.CNP [address] [place] [address] [facility] 11/10/24 Care Team (unrecognized sect ion and content) Care Team Personnel Name: Jenna Galindo PT Position: P3 Scheduling - Solution Spec Advanced Member Role: Other Name: JACKIE HAIDER Position: P4 Advanced Practice Nurse Med Service: Active Provider Member Role: Primary Care Physician Address: Address: [address] [place] [address]- Care Team Related Persons Name: MADISON TORRE Care Team Personnel Name: Jenna Galindo PT Position: P3 Scheduling - Solution Spec Advanced Member Role: Other Name: JACKIE HAIDER Position: P4 Advanced Practice Nurse Member Role: Primary Care Physician Address: Address: [address] [place] [address]- Care Team Related Persons Name: MADISON TORRE Care Team Personnel Name: Jenna Galindo PT Position: P3 Scheduling - Solution Spec Advanced Member Role: Other Name: JACKIE HAIDER Position: P4 Advanced Practice Nurse Member Role: Primary Care Physician Address: Address: [address] [place] [address]- Care Team Related Persons Name: MADISON TORRE Care Team Personnel Name: Mateo, Tile Decorator Linda PT Position: P3 Scheduling - Solution Spec Advanced Member Role: Other Name: JACKIE HAIDER Position: P4 Advanced Practice Nurse Med Service: Active Provider Member Role: Primary Care Physician Address: Address: [address] [place] [address]- Care Team Related Persons Name: MADISON TORRE Care Team Personnel Name: Salem, Tile Decorator Linda PT Position: P3 Scheduling - Solution Spec Advanced Member Role: Other Name: JACKIE HAIDER Position: P4 Advanced Practice Nurse Member Role: Primary Care Physician Address: Address: [address] [place] [address]- Care Team Related Persons Name: MADISON TORRE Care Team Personnel Name: Mateo, Tile Decorator Linda PT Position: P3 Scheduling - Solution Spec Advanced Member Role: Other Name: JACKIE HAIDER Position: P4 Advanced Practice Nurse Member Role: Primary Care Physician Address: Address: [address] [place] [address]- Care Team Related Persons Name: MADISON TORRE Care Team Personnel Name: Mateo, Tile Decorator Linda PT Position: P3 Scheduling - Solution Spec Advanced Member Role: Other Name: GRAY QUINTANA DO Member Role: Primary Care Physician Address: Address: [address] [place] [address]- Care Team Related Persons Name: MADISON TORRE Source Comments (unrecognize d section and content) In the event this informatio n is protected by the Federal Confidentiality of Alcohol and Drug Abuse Patient Records regulations: The Federal rules restrict any use of the information to criminally investigate or prosecute any alcohol or drug abuse patient.[facility]In the event this information is protected by the Federal Confidentiality of Alcohol and Drug Abuse Patient Records regulations: The Federal rules restrict any use of the information to criminally investigate or prosecute any alcohol or drug abuse patient.[facility] HealthIn the event this information is protected by the Federal Confidentiality of Alcohol and Drug Abuse Patient Records regulations: The Federal rules restrict any use of the information to criminally investigate or prosecute any alcohol or drug abuse patient.[facility] HealthIn the event this information is protected by the Federal Confidentiality of Alcohol and Drug Abuse Patient Records regulations: The Federal rules restrict any use of the information to criminally investigate or prosecute any alcohol or drug abuse patient.[facility] HealthIn the event this information is protected by the Federal Confidentiality of Alcohol and Drug Abuse Patient Records regulations: The Federal rules restrict any use of the information to criminally investigate or prosecute any alcohol or drug abuse patient.[facility] HealthIn the event this information is protected by the Federal Confidentiality of Alcohol and Drug Abuse Patient Records regulations: The Federal rules restrict any use of the information to criminally investigate or prosecute any alcohol or drug abuse patient.[facility] HealthIn the event this information is protected by the Federal Confidentiality of Alcohol and Drug Abuse Patient Records regulations: The Federal rules restrict any use of the information to criminally investigate or prosecute any alcohol or drug abuse patient.[facility] HealthIn the event this information is protected by the Federal Confidentiality of Alcohol and Drug Abuse Patient Records regulations: The Federal rules restrict any use of the information to criminally investigate or prosecute any alcohol or drug abuse patient.[facility] HealthIn the event this information is protected by the Federal Confidentiality of Alcohol and Drug Abuse Patient Records regulations: The Federal rules restrict any use of the information to criminally investigate or prosecute any alcohol or drug abuse patient.[facility] HealthIn the event this information is protected by the Federal Confidentiality of Alcohol and Drug Abuse Patient Records regulations: The Federal rules restrict any use of the information to criminally investigate or prosecute any alcohol or drug abuse patient.[facility]In the event this information is protected by the Federal Confidentiality of Alcohol and Drug Abuse Patient Records regulations: The Federal rules restrict any use of the information to criminally investigate or prosecute any alcohol or drug abuse patient.[facility] HealthIn the event this information is protected by the Federal Confidentiality of Alcohol and Drug Abuse Patient Records regulations: The Federal rules restrict any use of the information to criminally investigate or prosecute any alcohol or drug abuse patient.[facility]In the event this information is protected by the Federal Confidentiality of Alcohol and Drug Abuse Patient Records regulations: The Federal rules restrict any use of the information to criminally investigate or prosecute any alcohol or drug abuse patient.[facility]In the event this information is protected by the Federal Confidentiality of Alcohol and Drug Abuse Patient Records regulations: The Federal rules restrict any use of the information to criminally investigate or prosecute any alcohol or drug abuse patient.[facility]In the event this information is protected by the Federal Confidentiality of Alcohol and Drug Abuse Patient Records regulations: The Federal rules restrict any use of the information to criminally investigate or prosecute any alcohol or drug abuse patient.[facility]In the event this information is protected by the Federal Confidentiality of Alcohol and Drug Abuse Patient Records regulations: The Federal rules restrict any use of the information to criminally investigate or prosecute any alcohol or drug abuse patient.[facility]In the event this information is protected by the Federal Confidentiality of Alcohol and Drug Abuse Patient Records regulations: The Federal rules restrict any use of the information to criminally investigate or prosecute any alcohol or drug abuse patient.[facility]In the event this information is protected by the Federal Confidentiality of Alcohol and Drug Abuse Patient Records regulations: The Federal rules restrict any use of the information to criminally investigate or prosecute any alcohol or drug abuse patient.[facility]In the event this information is protected by the Federal Confidentiality of Alcohol and Drug Abuse Patient Records regulations: The Federal rules restrict any use of the information to criminally investigate or prosecute any alcohol or drug abuse patient.[facility]In the event this information is protected by the Federal Confidentiality of Alcohol and Drug Abuse Patient Records regulations: The Federal rules restrict any use of the information to criminally investigate or prosecute any alcohol or drug abuse patient.[facility] HealthIn the event this information is protected by the Federal Confidentiality of Alcohol and Drug Abuse Patient Records regulations: The Federal rules restrict any use of the information to criminally investigate or prosecute any alcohol or drug abuse patient.[facility]In the event this information is protected by the Federal Confidentiality of Alcohol and Drug Abuse Patient Records regulations: The Federal rules restrict any use of the information to criminally investigate or prosecute any alcohol or drug abuse patient.[facility]In the event this information is protected by the Federal Confidentiality of Alcohol and Drug Abuse Patient Records regulations: The Federal rules restrict any use of the information to criminally investigate or prosecute any alcohol or drug abuse patient.[facility]In the event this information is protected by the Federal Confidentiality of Alcohol and Drug Abuse Patient Records regulations: The Federal rules restrict any use of the information to criminally investigate or prosecute any alcohol or drug abuse patient.[facility]In the event this information is protected by the Federal Confidentiality of Alcohol and Drug Abuse Patient Records regulations: The Federal rules restrict any use of the information to criminally investigate or prosecute any alcohol or drug abuse patient.[facility]In the event this information is protected by the Federal Confidentiality of Alcohol and Drug Abuse Patient Records regulations: The Federal rules restrict any use of the information to criminally investigate or prosecute any alcohol or drug abuse patient.[facility]In the event this information is protected by the Federal Confidentiality of Alcohol and Drug Abuse Patient Records regulations: The Federal rules restrict any use of the information to criminally investigate or prosecute any alcohol or drug abuse patient.[facility]In the event this information is protected by the Federal Confidentiality of Alcohol and Drug Abuse Patient Records regulations: The Federal rules restrict any use of the information to criminally investigate or prosecute any alcohol or drug abuse patient.[facility]In the event this information is protected by the Federal Confidentiality of Alcohol and Drug Abuse Patient Records regulations: The Federal rules restrict any use of the information to criminally investigate or prosecute any alcohol or drug abuse patient.[facility]In the event this information is protected by the Federal Confidentiality of Alcohol and Drug Abuse Patient Records regulations: The Federal rules restrict any use of the information to criminally investigate or prosecute any alcohol or drug abuse patient.[facility]In the event this information is protected by the Federal Confidentiality of Alcohol and Drug Abuse Patient Records regulations: The Federal rules restrict any use of the information to criminally investigate or prosecute any alcohol or drug abuse patient.[facility]In the event this information is protected by the Federal Confidentiality of Alcohol and Drug Abuse Patient Records regulations: The Federal rules restrict any use of the information to criminally investigate or prosecute any alcohol or drug abuse patient.[facility]In the event this information is protected by the Federal Confidentiality of Alcohol and Drug Abuse Patient Records regulations: The Federal rules restrict any use of the information to criminally investigate or prosecute any alcohol or drug abuse patient.[facility]In the event this information is protected by the Federal Confidentiality of Alcohol and Drug Abuse Patient Records regulations: The Federal rules restrict any use of the information to criminally investigate or prosecute any alcohol or drug abuse patient.[facility]In the event this information is protected by the Federal Confidentiality of Alcohol and Drug Abuse Patient Records regulations: The Federal rules restrict any use of the information to criminally investigate or prosecute any alcohol or drug abuse patient.[facility]In the event this information is protected by the Federal Confidentiality of Alcohol and Drug Abuse Patient Records regulations: The Federal rules restrict any use of the information to criminally investigate or prosecute any alcohol or drug abuse patient.[facility]In the event this information is protected by the Federal Confidentiality of Alcohol and Drug Abuse Patient Records regulations: The Federal rules restrict any use of the information to criminally investigate or prosecute any alcohol or drug abuse patient.[facility]In the event this information is protected by the Federal Confidentiality of Alcohol and Drug Abuse Patient Records regulations: The Federal rules restrict any use of the information to criminally investigate or prosecute any alcohol or drug abuse patient.[facility]In the event this information is protected by the Federal Confidentiality of Alcohol and Drug Abuse Patient Records regulations: The Federal rules restrict any use of the information to criminally investigate or prosecute any alcohol or drug abuse patient.[facility]In the event this information is protected by the Federal Confidentiality of Alcohol and Drug Abuse Patient Records regulations: The Federal rules restrict any use of the information to criminally investigate or prosecute any alcohol or drug abuse patient.[facility]In the event this information is protected by the Federal Confidentiality of Alcohol and Drug Abuse Patient Records regulations: The Federal rules restrict any use of the information to criminally investigate or prosecute any alcohol or drug abuse patient.[facility]In the event this information is protected by the Federal Confidentiality of Alcohol and Drug Abuse Patient Records regulations: The Federal rules restrict any use of the information to criminally investigate or prosecute any alcohol or drug abuse patient.[facility]In the event this information is protected by the Federal Confidentiality of Alcohol and Drug Abuse Patient Records regulations: The Federal rules restrict any use of the information to criminally investigate or prosecute any alcohol or drug abuse patient.[facility]In the event this information is protected by the Federal Confidentiality of Alcohol and Drug Abuse Patient Records regulations: The Federal rules restrict any use of the information to criminally investigate or prosecute any alcohol or drug abuse patient.[facility]In the event this information is protected by the Federal Confidentiality of Alcohol and Drug Abuse Patient Records regulations: The Federal rules restrict any use of the information to criminally investigate or prosecute any alcohol or drug abuse patient.[facility]In the event this information is protected by the Federal Confidentiality of Alcohol and Drug Abuse Patient Records regulations: The Federal rules restrict any use of the information to criminally investigate or prosecute any alcohol or drug abuse patient.[facility]In the event this information is protected by the Federal Confidentiality of Alcohol and Drug Abuse Patient Records regulations: The Federal rules restrict any use of the information to criminally investigate or prosecute any alcohol or drug abuse patient.[facility]In the event this information is protected by the Federal Confidentiality of Alcohol and Drug Abuse Patient Records regulations: The Federal rules restrict any use of the information to criminally investigate or prosecute any alcohol or drug abuse patient.[facility]In the event this information is protected by the Federal Confidentiality of Alcohol and Drug Abuse Patient Records regulations: The Federal rules restrict any use of the information to criminally investigate or prosecute any alcohol or drug abuse patient.[facility]In the event this information is protected by the Federal Confidentiality of Alcohol and Drug Abuse Patient Records regulations: The Federal rules restrict any use of the information to criminally investigate or prosecute any alcohol or drug abuse patient.[facility]In the event this information is protected by the Federal Confidentiality of Alcohol and Drug Abuse Patient Records regulations: The Federal rules restrict any use of the information to criminally investigate or prosecute any alcohol or drug abuse patient.[facility]In the event this information is protected by the Federal Confidentiality of Alcohol and Drug Abuse Patient Records regulations: The Federal rules restrict any use of the information to criminally investigate or prosecute any alcohol or drug abuse patient.[facility]In the event this information is protected by the Federal Confidentiality of Alcohol and Drug Abuse Patient Records regulations: The Federal rules restrict any use of the information to criminally investigate or prosecute any alcohol or drug abuse patient.[facility]In the event this information is protected by the Federal Confidentiality of Alcohol and Drug Abuse Patient Records regulations: The Federal rules restrict any use of the information to criminally investigate or prosecute any alcohol or drug abuse patient.[facility]In the event this information is protected by the Federal Confidentiality of Alcohol and Drug Abuse Patient Records regulations: The Federal rules restrict any use of the information to criminally investigate or prosecute any alcohol or drug abuse patient.[facility]In the event this information is protected by the Federal Confidentiality of Alcohol and Drug Abuse Patient Records regulations: The Federal rules restrict any use of the information to criminally investigate or prosecute any alcohol or drug abuse patient.[facility]In the event this information is protected by the Federal Confidentiality of Alcohol and Drug Abuse Patient Records regulations: The Federal rules restrict any use of the information to criminally investigate or prosecute any alcohol or drug abuse patient.[facility]In the event this information is protected by the Federal Confidentiality of Alcohol and Drug Abuse Patient Records regulations: The Federal rules restrict any use of the information to criminally investigate or prosecute any alcohol or drug abuse patient.[facility]In the event this information is protected by the Federal Confidentiality of Alcohol and Drug Abuse Patient Records regulations: The Federal rules restrict any use of the information to criminally investigate or prosecute any alcohol or drug abuse patient.[facility]In the event this information is protected by the Federal Confidentiality of Alcohol and Drug Abuse Patient Records regulations: The Federal rules restrict any use of the information to criminally investigate or prosecute any alcohol or drug abuse patient.[facility]In the event this information is protected by the Federal Confidentiality of Alcohol and Drug Abuse Patient Records regulations: The Federal rules restrict any use of the information to criminally investigate or prosecute any alcohol or drug abuse patient.[facility]In the event this information is protected by the Federal Confidentiality of Alcohol and Drug Abuse Patient Records regulations: The Federal rules restrict any use of the information to criminally investigate or prosecute any alcohol or drug abuse patient.[facility]In the event this information is protected by the Federal Confidentiality of Alcohol and Drug Abuse Patient Records regulations: The Federal rules restrict any use of the information to criminally investigate or prosecute any alcohol or drug abuse patient.[facility]In the event this information is protected by the Federal Confidentiality of Alcohol and Drug Abuse Patient Records regulations: The Federal rules restrict any use of the information to criminally investigate or prosecute any alcohol or drug abuse patient.[facility]In the event this information is protected by the Federal Confidentiality of Alcohol and Drug Abuse Patient Records regulations: The Federal rules restrict any use of the information to criminally investigate or prosecute any alcohol or drug abuse patient.[facility]In the event this information is protected by the Federal Confidentiality of Alcohol and Drug Abuse Patient Records regulations: The Federal rules restrict any use of the information to criminally investigate or prosecute any alcohol or drug abuse patient.[facility]In the event this information is protected by the Federal Confidentiality of Alcohol and Drug Abuse Patient Records regulations: The Federal rules restrict any use of the information to criminally investigate or prosecute any alcohol or drug abuse patient.[facility]In the event this information is protected by the Federal Confidentiality of Alcohol and Drug Abuse Patient Records regulations: The Federal rules restrict any use of the information to criminally investigate or prosecute any alcohol or drug abuse patient.[facility]In the event this information is protected by the Federal Confidentiality of Alcohol and Drug Abuse Patient Records regulations: The Federal rules restrict any use of the information to criminally investigate or prosecute any alcohol or drug abuse patient.[facility]In the event this information is protected by the Federal Confidentiality of Alcohol and Drug Abuse Patient Records regulations: The Federal rules restrict any use of the information to criminally investigate or prosecute any alcohol or drug abuse patient.[facility]In the event this information is protected by the Federal Confidentiality of Alcohol and Drug Abuse Patient Records regulations: The Federal rules restrict any use of the information to criminally investigate or prosecute any alcohol or drug abuse patient.[facility]In the event this information is protected by the Federal Confidentiality of Alcohol and Drug Abuse Patient Records regulations: The Federal rules restrict any use of the information to criminally investigate or prosecute any alcohol or drug abuse patient.[facility]In the event this information is protected by the Federal Confidentiality of Alcohol and Drug Abuse Patient Records regulations: The Federal rules restrict any use of the information to criminally investigate or prosecute any alcohol or drug abuse patient.[facility]In the event this information is protected by the Federal Confidentiality of Alcohol and Drug Abuse Patient Records regulations: The Federal rules restrict any use of the information to criminally investigate or prosecute any alcohol or drug abuse patient.[facility]In the event this information is protected by the Federal Confidentiality of Alcohol and Drug Abuse Patient Records regulations: The Federal rules restrict any use of the information to criminally investigate or prosecute any alcohol or drug abuse patient.[facility]In the event this information is protected by the Federal Confidentiality of Alcohol and Drug Abuse Patient Records regulations: The Federal rules restrict any use of the information to criminally investigate or prosecute any alcohol or drug abuse patient.[facility]In the event this information is protected by the Federal Confidentiality of Alcohol and Drug Abuse Patient Records regulations: The Federal rules restrict any use of the information to criminally investigate or prosecute any alcohol or drug abuse patient.[facility]In the event this information is protected by the Federal Confidentiality of Alcohol and Drug Abuse Patient Records regulations: The Federal rules restrict any use of the information to criminally investigate or prosecute any alcohol or drug abuse patient.[facility]In the event this information is protected by the Federal Confidentiality of Alcohol and Drug Abuse Patient Records regulations: The Federal rules restrict any use of the information to criminally investigate or prosecute any alcohol or drug abuse patient.[facility]In the event this information is protected by the Federal Confidentiality of Alcohol and Drug Abuse Patient Records regulations: The Federal rules restrict any use of the information to criminally investigate or prosecute any alcohol or drug abuse patient.[facility]In the event this information is protected by the Federal Confidentiality of Alcohol and Drug Abuse Patient Records regulations: The Federal rules restrict any use of the information to criminally investigate or prosecute any alcohol or drug abuse patient.[facility]In the event this information is protected by the Federal Confidentiality of Alcohol and Drug Abuse Patient Records regulations: The Federal rules restrict any use of the information to criminally investigate or prosecute any alcohol or drug abuse patient.[facility]In the event this information is protected by the Federal Confidentiality of Alcohol and Drug Abuse Patient Records regulations: The Federal rules restrict any use of the information to criminally investigate or prosecute any alcohol or drug abuse patient.[facility]In the event this information is protected by the Federal Confidentiality of Alcohol and Drug Abuse Patient Records regulations: The Federal rules restrict any use of the information to criminally investigate or prosecute any alcohol or drug abuse patient.[facility] HealthIn the event this information is protected by the Federal Confidentiality of Alcohol and Drug Abuse Patient Records regulations: The Federal rules restrict any use of the information to criminally investigate or prosecute any alcohol or drug abuse patient.[facility] HealthIn the event this information is protected by the Federal Confidentiality of Alcohol and Drug Abuse Patient Records regulations: The Federal rules restrict any use of the information to criminally investigate or prosecute any alcohol or drug abuse patient.[facility] HealthIn the event this information is protected by the Federal Confidentiality of Alcohol and Drug Abuse Patient Records regulations: The Federal rules restrict any use of the information to criminally investigate or prosecute any alcohol or drug abuse patient.[facility] HealthIn the event this information is protected by the Federal Confidentiality of Alcohol and Drug Abuse Patient Records regulations: The Federal rules restrict any use of the information to criminally investigate or prosecute any alcohol or drug abuse patient.[facility] HealthIn the event this information is protected by the Federal Confidentiality of Alcohol and Drug Abuse Patient Records regulations: The Federal rules restrict any use of the information to criminally investigate or prosecute any alcohol or drug abuse patient.[facility] HealthIn the event this information is protected by the Federal Confidentiality of Alcohol and Drug Abuse Patient Records regulations: The Federal rules restrict any use of the information to criminally investigate or prosecute any alcohol or drug abuse patient.[facility] HealthIn the event this information is protected by the Federal Confidentiality of Alcohol and Drug Abuse Patient Records regulations: The Federal rules restrict any use of the information to criminally investigate or prosecute any alcohol or drug abuse patient.[facility] HealthIn the event this information is protected by the Federal Confidentiality of Alcohol and Drug Abuse Patient Records regulations: The Federal rules restrict any use of the information to criminally investigate or prosecute any alcohol or drug abuse patient.[facility] HealthIn the event this information is protected by the Federal Confidentiality of Alcohol and Drug Abuse Patient Records regulations: The Federal rules restrict any use of the information to criminally investigate or prosecute any alcohol or drug abuse patient.[facility] HealthIn the event this information is protected by the Federal Confidentiality of Alcohol and Drug Abuse Patient Records regulations: The Federal rules restrict any use of the information to criminally investigate or prosecute any alcohol or drug abuse patient.[facility] HealthIn the event this information is protected by the Federal Confidentiality of Alcohol and Drug Abuse Patient Records regulations: The Federal rules restrict any use of the information to criminally investigate or prosecute any alcohol or drug abuse patient.[facility] HealthIn the event this information is protected by the Federal Confidentiality of Alcohol and Drug Abuse Patient Records regulations: The Federal rules restrict any use of the information to criminally investigate or prosecute any alcohol or drug abuse patient.[facility] HealthIn the event this information is protected by the Federal Confidentiality of Alcohol and Drug Abuse Patient Records regulations: The Federal rules restrict any use of the information to criminally investigate or prosecute any alcohol or drug abuse patient.[facility] HealthIn the event this information is protected by the Federal Confidentiality of Alcohol and Drug Abuse Patient Records regulations: The Federal rules restrict any use of the information to criminally investigate or prosecute any alcohol or drug abuse patient.[facility] HealthIn the event this information is protected by the Federal Confidentiality of Alcohol and Drug Abuse Patient Records regulations: The Federal rules restrict any use of the information to criminally investigate or prosecute any alcohol or drug abuse patient.[facility] HealthIn the event this information is protected by the Federal Confidentiality of Alcohol and Drug Abuse Patient Records regulations: The Federal rules restrict any use of the information to criminally investigate or prosecute any alcohol or drug abuse patient.[facility] HealthIn the event this information is protected by the Federal Confidentiality of Alcohol and Drug Abuse Patient Records regulations: The Federal rules restrict any use of the information to criminally investigate or prosecute any alcohol or drug abuse patient.[facility] HealthIn the event this information is protected by the Federal Confidentiality of Alcohol and Drug Abuse Patient Records regulations: The Federal rules restrict any use of the information to criminally investigate or prosecute any alcohol or drug abuse patient.[facility] HealthIn the event this information is protected by the Federal Confidentiality of Alcohol and Drug Abuse Patient Records regulations: The Federal rules restrict any use of the information to criminally investigate or prosecute any alcohol or drug abuse patient.[facility] HealthIn the event this information is protected by the Federal Confidentiality of Alcohol and Drug Abuse Patient Records regulations: The Federal rules restrict any use of the information to criminally investigate or prosecute any alcohol or drug abuse patient.[facility] HealthIn the event this information is protected by the Federal Confidentiality of Alcohol and Drug Abuse Patient Records regulations: The Federal rules restrict any use of the information to criminally investigate or prosecute any alcohol or drug abuse patient.[facility] HealthIn the event this information is protected by the Federal Confidentiality of Alcohol and Drug Abuse Patient Records regulations: The Federal rules restrict any use of the information to criminally investigate or prosecute any alcohol or drug abuse patient.[facility] HealthIn the event this information is protected by the Federal Confidentiality of Alcohol and Drug Abuse Patient Records regulations: The Federal rules restrict any use of the information to criminally investigate or prosecute any alcohol or drug abuse patient.[facility] HealthIn the event this information is protected by the Federal Confidentiality of Alcohol and Drug Abuse Patient Records regulations: The Federal rules restrict any use of the information to criminally investigate or prosecute any alcohol or drug abuse patient.[facility] HealthIn the event this information is protected by the Federal Confidentiality of Alcohol and Drug Abuse Patient Records regulations: The Federal rules restrict any use of the information to criminally investigate or prosecute any alcohol or drug abuse patient.[facility] HealthIn the event this information is protected by the Federal Confidentiality of Alcohol and Drug Abuse Patient Records regulations: The Federal rules restrict any use of the information to criminally investigate or prosecute any alcohol or drug abuse patient.[facility] HealthIn the event this information is protected by the Federal Confidentiality of Alcohol and Drug Abuse Patient Records regulations: The Federal rules restrict any use of the information to criminally investigate or prosecute any alcohol or drug abuse patient.[facility] HealthIn the event this information is protected by the Federal Confidentiality of Alcohol and Drug Abuse Patient Records regulations: The Federal rules restrict any use of the information to criminally investigate or prosecute any alcohol or drug abuse patient.[facility] HealthIn the event this information is protected by the Federal Confidentiality of Alcohol and Drug Abuse Patient Records regulations: The Federal rules restrict any use of the information to criminally investigate or prosecute any alcohol or drug abuse patient.[facility] HealthIn the event this information is protected by the Federal Confidentiality of Alcohol and Drug Abuse Patient Records regulations: The Federal rules restrict any use of the information to criminally investigate or prosecute any alcohol or drug abuse patient.[facility] HealthIn the event this information is protected by the Federal Confidentiality of Alcohol and Drug Abuse Patient Records regulations: The Federal rules restrict any use of the information to criminally investigate or prosecute any alcohol or drug abuse patient.[facility] HealthIn the event this information is protected by the Federal Confidentiality of Alcohol and Drug Abuse Patient Records regulations: The Federal rules restrict any use of the information to criminally investigate or prosecute any alcohol or drug abuse patient.[facility] HealthIn the event this information is protected by the Federal Confidentiality of Alcohol and Drug Abuse Patient Records regulations: The Federal rules restrict any use of the information to criminally investigate or prosecute any alcohol or drug abuse patient.[facility] HealthIn the event this information is protected by the Federal Confidentiality of Alcohol and Drug Abuse Patient Records regulations: The Federal rules restrict any use of the information to criminally investigate or prosecute any alcohol or drug abuse patient.[facility] HealthIn the event this information is protected by the Federal Confidentiality of Alcohol and Drug Abuse Patient Records regulations: The Federal rules restrict any use of the information to criminally investigate or prosecute any alcohol or drug abuse patient.[facility] HealthIn the event this information is protected by the Federal Confidentiality of Alcohol and Drug Abuse Patient Records regulations: The Federal rules restrict any use of the information to criminally investigate or prosecute any alcohol or drug abuse patient.[facility] HealthIn the event this information is protected by the Federal Confidentiality of Alcohol and Drug Abuse Patient Records regulations: The Federal rules restrict any use of the information to criminally investigate or prosecute any alcohol or drug abuse patient.[facility] HealthIn the event this information is protected by the Federal Confidentiality of Alcohol and Drug Abuse Patient Records regulations: The Federal rules restrict any use of the information to criminally investigate or prosecute any alcohol or drug abuse patient.[facility] HealthIn the event this information is protected by the Federal Confidentiality of Alcohol and Drug Abuse Patient Records regulations: The Federal rules restrict any use of the information to criminally investigate or prosecute any alcohol or drug abuse patient.[facility] HealthIn the event this information is protected by the Federal Confidentiality of Alcohol and Drug Abuse Patient Records regulations: The Federal rules restrict any use of the information to criminally investigate or prosecute any alcohol or drug abuse patient.[facility] HealthIn the event this information is protected by the Federal Confidentiality of Alcohol and Drug Abuse Patient Records regulations: The Federal rules restrict any use of the information to criminally investigate or prosecute any alcohol or drug abuse patient.[facility] HealthIn the event this information is protected by the Federal Confidentiality of Alcohol and Drug Abuse Patient Records regulations: The Federal rules restrict any use of the information to criminally investigate or prosecute any alcohol or drug abuse patient.[facility] HealthIn the event this information is protected by the Federal Confidentiality of Alcohol and Drug Abuse Patient Records regulations: The Federal rules restrict any use of the information to criminally investigate or prosecute any alcohol or drug abuse patient.[facility] HealthIn the event this information is protected by the Federal Confidentiality of Alcohol and Drug Abuse Patient Records regulations: The Federal rules restrict any use of the information to criminally investigate or prosecute any alcohol or drug abuse patient.[facility] HealthIn the event this information is protected by the Federal Confidentiality of Alcohol and Drug Abuse Patient Records regulations: The Federal rules restrict any use of the information to criminally investigate or prosecute any alcohol or drug abuse patient.[facility] HealthIn the event this information is protected by the Federal Confidentiality of Alcohol and Drug Abuse Patient Records regulations: The Federal rules restrict any use of the information to criminally investigate or prosecute any alcohol or drug abuse patient.[facility] HealthIn the event this information is protected by the Federal Confidentiality of Alcohol and Drug Abuse Patient Records regulations: The Federal rules restrict any use of the information to criminally investigate or prosecute any alcohol or drug abuse patient.[facility] HealthIn the event this information is protected by the Federal Confidentiality of Alcohol and Drug Abuse Patient Records regulations: The Federal rules restrict any use of the information to criminally investigate or prosecute any alcohol or drug abuse patient.[facility] HealthIn the event this information is protected by the Federal Confidentiality of Alcohol and Drug Abuse Patient Records regulations: The Federal rules restrict any use of the information to criminally investigate or prosecute any alcohol or drug abuse patient.[facility] HealthIn the event this information is protected by the Federal Confidentiality of Alcohol and Drug Abuse Patient Records regulations: The Federal rules restrict any use of the information to criminally investigate or prosecute any alcohol or drug abuse patient.[facility] HealthIn the event this information is protected by the Federal Confidentiality of Alcohol and Drug Abuse Patient Records regulations: The Federal rules restrict any use of the information to criminally investigate or prosecute any alcohol or drug abuse patient.[facility] HealthIn the event this information is protected by the Federal Confidentiality of Alcohol and Drug Abuse Patient Records regulations: The Federal rules restrict any use of the information to criminally investigate or prosecute any alcohol or drug abuse patient.[facility] HealthIn the event this information is protected by the Federal Confidentiality of Alcohol and Drug Abuse Patient Records regulations: The Federal rules restrict any use of the information to criminally investigate or prosecute any alcohol or drug abuse patient.[facility] HealthIn the event this information is protected by the Federal Confidentiality of Alcohol and Drug Abuse Patient Records regulations: The Federal rules restrict any use of the information to criminally investigate or prosecute any alcohol or drug abuse patient.[facility] HealthIn the event this information is protected by the Federal Confidentiality of Alcohol and Drug Abuse Patient Records regulations: The Federal rules restrict any use of the information to criminally investigate or prosecute any alcohol or drug abuse patient.[facility] HealthIn the event this information is protected by the Federal Confidentiality of Alcohol and Drug Abuse Patient Records regulations: The Federal rules restrict any use of the information to criminally investigate or prosecute any alcohol or drug abuse patient.[facility] HealthIn the event this information is protected by the Federal Confidentiality of Alcohol and Drug Abuse Patient Records regulations: The Federal rules restrict any use of the information to criminally investigate or prosecute any alcohol or drug abuse patient.[facility] HealthIn the event this information is protected by the Federal Confidentiality of Alcohol and Drug Abuse Patient Records regulations: The Federal rules restrict any use of the information to criminally investigate or prosecute any alcohol or drug abuse patient.[facility] HealthIn the event this information is protected by the Federal Confidentiality of Alcohol and Drug Abuse Patient Records regulations: The Federal rules restrict any use of the information to criminally investigate or prosecute any alcohol or drug abuse patient.[facility] HealthIn the event this information is protected by the Federal Confidentiality of Alcohol and Drug Abuse Patient Records regulations: The Federal rules restrict any use of the information to criminally investigate or prosecute any alcohol or drug abuse patient.[facility] HealthIn the event this information is protected by the Federal Confidentiality of Alcohol and Drug Abuse Patient Records regulations: The Federal rules restrict any use of the information to criminally investigate or prosecute any alcohol or drug abuse patient.[facility] HealthIn the event this information is protected by the Federal Confidentiality of Alcohol and Drug Abuse Patient Records regulations: The Federal rules restrict any use of the information to criminally investigate or prosecute any alcohol or drug abuse patient.[facility] HealthIn the event this information is protected by the Federal Confidentiality of Alcohol and Drug Abuse Patient Records regulations: The Federal rules restrict any use of the information to criminally investigate or prosecute any alcohol or drug abuse patient.[facility] HealthIn the event this information is protected by the Federal Confidentiality of Alcohol and Drug Abuse Patient Records regulations: The Federal rules restrict any use of the information to criminally investigate or prosecute any alcohol or drug abuse patient.[facility] HealthIn the event this information is protected by the Federal Confidentiality of Alcohol and Drug Abuse Patient Records regulations: The Federal rules restrict any use of the information to criminally investigate or prosecute any alcohol or drug abuse patient.[facility] Reason for Visit (unrecogniz ed section and content) Reason Comments Physical Therapy Specialty Diagnoses / Procedures Referred By Contac t Referred To Contact [facility] Diagnoses Neck pain Procedures PHYSICAL THERAPY EVALUATION HIGH COMPLEX 45 MINS Jason Francois APRN.STATIONS SUPERINTENDENT [address] [place] [address] Phone: tel: fax: [facility] [address] [place] [address] Referral ID Status Reason Start Date Expiration Date Visits Requested Visits Authorized [id number] Authorized PCP Requested Referral Auto-Generate d Referral 12/08/2024 12/08/2025 99 99 Reason Comments PT Discharge Specialty Diagnoses / Procedures Referred By Contac t Referred To Contact [facility] Diagnoses Spinal stenosis of lumbar region, unspecified whether neurogenic claudication present Procedures CONSULT TO PHYSICAL THERAPY PHYSICAL THERAPY EVALUATION HIGH COMPLEX 45 MINS Jason Francois APRN.STATIONS SUPERINTENDENT [address] [place] [address] [facility] [place] [address] [place] [id number] Referral ID Status Reason Start Date Expiration Date Visits Requested Visits Authorized [id number] Authorized PCP Requested Referral Auto-Generate d Referral [...] EVALUATION HIGH COMPLEX 45 MINS Jason Francois APRN.STATIONS SUPERINTENDENT [address] [place] [address] [facility] [place] [address] [place] [address] Reason Comments Fatigue Patient reports incr eased fatigue over at least last 2 weeks- concerned iron may be low again Reason Comments wound on finger Reason Comments Results Urine Cx mixed. Reason Comments sleep and weight issues Reason Comments Patient Update Reason Comments Recheck Weight loss medicati on Reason Comments Patient Education Assessment Specialty Diagnoses / Procedures Referred By Contac t Referred To Contact [facility] Diagnoses Obesity, Class II, BMI 35-39.9 NEVA (obstructive sleep apnea) Blood glucose elevated Hypertension, essential Ulcerative colitis without complications, unspecified location (HCC) Chronic kidney disease, stage 2 (mild) Procedures CONSULT TO NUTRITION THERAPY MEDICAL NUTRITION ASSMT&IVNTJ INDIV EACH 15 MD MEDICAL NUTRITION ASSMT&IVNTJ INDIV EACH 15 MD MEDICAL NUTRITION ASSMT&IVNTJ INDIV EACH 15 MD MEDICAL NUTRITION ASSMT&IVNTJ INDIV EACH 15 MD Christina Anthony, PIPELINES MANAGER.STATIONS SUPERINTENDENT [address] [place] [address] [facility] [address] [place] [address] Referral ID Status Reason Start Date Expiration Date V isits Requested Visits Authorized [id number] Closed PCP Requested Referral 12/27/2022 12/27/2023 1 [...] Left swollen, stiffn ess Reason Comments pain trish feet Difficulty to walk, achilles tendonitis in [...] DIFFUSION CAPACITY (DLCO) DIFFUSING CAPACITY Carolyn Ramirez, ARIAN.STATIONS SUPERINTENDENT [address] [place] [address] [address] Referral ID Status Reason Start Date Expiration Date V isits Requested Visits Authorized [id number] Closed Auto-Generate d Referral 12/03/2023 01/01/2025 1 1 Specialty Diagnoses / Procedures Referred By Contac t Referred To Contact [facility] Diagnoses Chronic obstructive pulmonary disease, unspecified COPD type (HCC) Procedures SPIROMETRY WITH DILATOR IF OBSTRUCTED BRNCDILAT RSPSE SPMTRY PRE&POST-BRNCDILAT ADMN Carolyn Ramirez APRN.STATIONS SUPERINTENDENT [address] [place] [address] [address] Referral ID Status Reason Start Date Expiration Date V isits Requested Visits Authorized [id number] Closed Auto-Generate d Referral 12/03/2023 01/01/2025 1 1 Specialty Diagnoses / Procedures Referred By Contac t Referred To Contact [facility] Diagnoses Chronic obstructive pulmonary disease, unspecified COPD type (HCC) Procedures LUNG VOLUMES Carolyn Ramirez, ARIAN.STATIONS SUPERINTENDENT [address] [place] [address] [facility] [place] [address] [place] [address] Referral ID Status Reason Start Date Expiration Date V isits Requested Visits Authorized [id number] Closed Auto-Generate d Referral 12/03/2023 01/01/2025 1 1 Reason Comments New Patient COPD COPD Reason Comments Orders Reason Comments Patient Request Reason Comments nerve pain in legs and back Reason Comments Follow Up Asthma COPD Reason Comments Fatigue Reason Comments [facility] for b/p Reason Comments Patient Question Blood clot follow up questions Reason Comments Patient Update: Eliquis Reason Onset Date Comments Results 07/09/2024 Reason Comments Medication Problem Reason Onset Date Comments Population Health Navigation Outreach 07/17/2024 ACO WORKBENC CEDRIC PCSA Reason Comments Anticoagulation Reason Comments Orders [...] NM Specialty Diagnoses / Procedures Referred By Clay henao Referred To Contact [facility] Diagnoses Calculus of gallbladder without cholecystitis without obstruction Nausea Procedures NM HEPATOBILIARY W EF AND/OR RX HEPATOBIL SYST IMAG INC GB W/PHARMA INTERVENJ Gray Quintana, DO [address] [place] [address] Phone: tel: fax: [facility] [address] [place] [address] Phone: tel: Referral ID Status Reason Start Date Expiration Date V isits Requested Visits Authorized [id number] Closed Auto-Generate d Referral 10/08/2024 11/07/2025 1 1 Reason Comments Consult Specialty Diagnoses / Procedures Referred By Contac t Referred To Contact [facility] Diagnoses Calculus of gallbladder without cholecystitis without obstruction Nausea Procedures CONSULT TO GENERAL SURGERY OFFICE/OUTPATIENT NEW HIGH MDM 60 MINUTES Gray Quintana L, DO [address] [place] [address] Phone: tel: fax: Referral ID Status Reason Start Date Expiration Date V isits Requested Visits Authorized [id number] Closed PCP Requested Referral 10/08/2024 10/08/2025 1 1 Reason Comments Back Pain Specialty Diagnoses / Procedures Referred By Contac t Referred To Contact [facility] Management Diagnoses Osteoarthritis of spine with radiculopathy, lumbar region Procedures CONSULT TO PAIN MGT OFFICE/OUTPATIENT NEW HIGH MDM 60 MINUTES Gray Quintana DO [address] [place] [address] Phone: tel: fax: Referral ID Status Reason Start Date Expiration Date V isits Requested Visits Authorized [id number] Closed PCP Requested Referral 10/08/2024 10/08/2025 1 1 Reason Onset Date Comments Medication Problem 09/11/2024 Specialty Diagnoses / Procedures Referred By Contac t Referred To Contact [facility] Diagnoses Mild intermittent asthma without complication (HCC) Procedures NITRIC OXIDE, EXHALED NITRIC OXIDE GAS DETERMINATION Yan Montaño MD [address] [place] [address] Phone: tel: fax: [facility] [place] [address] [place] [address] Referral ID Status Reason Start Date Expiration Date V isits Requested Visits Authorized [id number] Closed Auto-Generate d Referral 05/26/2024 06/25/2025 1 1 Reason Comments Established Patient 6 month follow up as thma-COPD overlap syndrome Reason Comments Results Lumbar MRI Reason Onset Date Comments Population Health Navigation Outreach [facility] [facility] Reason Comments Neck Pain Reason Comments Neck Pain Reason Comments Patient Request Reason Comments PT Eval Specialty Diagnoses / Procedures Referred By Contac t Referred To Contact [facility] Diagnoses Neck pain Procedures CONSULT TO PHYSICAL THERAPY PHYSICAL THERAPY EVALUATION HIGH COMPLEX 45 MINS Jason Francois APRN.[employer] [address] [place] [address] Phone: tel: fax: [facility] [address] [place] [address] Reason Onset Date Comments Population Health Navigation Outreach [facility] Reason Comments Patient Update Reschedule Injection Procedure Reason Comments urination symptoms Reason Comments UTI Symptoms continue; b urning and itching, frequency, retention Reason Onset Date Comments Results 01/14/2025 Reason Onset Date Comments Opened In Error 01/15/2025 Reason Onset Date Comments Population Health Navigation Outreach 01/15/2025 [facility] Reason Comments Established Patient ER follow up Reason Comments Orders Reason Comments Cancel Injection Procedure INFORMATION SOURCE (unrecogn ized section and content) DATE CREATED AUTHOR 01/07/2024 [facility] DATE CREATED AUTHOR AUTHOR'S ORGANIZ ATION 07/28/2024 [facility] DATE CREATED AUTHOR AUTHOR'S ORGANIZ ATION 07/29/2024 [facility] DATE CREATED AUTHOR AUTHOR'S ORGANIZ ATION 01/24/2025 [facility] DATE CREATED AUTHOR AUTHOR'S ORGANIZ ATION 01/24/2025 [facility] FOR RECORDS PERTAINING TO PATIENTS WHO [...] BE BASED ON THE PRIMARY CLINICAL RECORDS. [facility]. provides no warranty or guarantee of the accuracy or completeness of information in this document.
--- NOTE | 2025-01-25 10:45 | ED.RN ---
pt has swelling to the left hand on the dorsal side of the hand near the pink finger, pt unsure of any injury or bug bite.
[2025-01-25 11:24] VITALS: BP 149/102; PULSE 104; RESP 22; TEMP 36.4; O2SAT 93
== END 2025-01-25 11:29 | disposition home or self-care (01) ==
PROVIDERS: Emergency Provider Emergency Medicine; PCP Student in an Organized Health Care Education/Training Program; Visit Provider Emergency Medicine
DX: L03.114 Cellulitis of left upper limb (principal); I10 Essential (primary) hypertension; Z87.891 Personal history of nicotine dependence; Z79.899 Other long term (current) drug therapy; Z99.81 Dependence on supplemental oxygen
CPT/HCPCS: 73130; 99282

== ENCOUNTER → 2025-01-29 | Outpatient (CLI) | payer MEDICARE, OTHER, SELFPAY | END | disposition home or self-care (01) | LOC: LABSPEC 11:57 | PROVIDERS: PCP Student in an Organized Health Care Education/Training Program; Referring Provider Emergency Medicine; Visit Provider Emergency Medicine | DX: K21.9 Gastro-esophageal reflux disease without esophagitis (principal); T36.95XA Adverse effect of unspecified systemic antibiotic, initial encounter | CPT/HCPCS: 87493 ==

== ENCOUNTER → 2025-02-02 | Outpatient (CLI) | payer MEDICARE, OTHER, SELFPAY ==
[2025-02-02 11:11] LABS: Hematocrit 35.9 % (37-47); Hemoglobin 11.8 g/dL (12.0-15.0); Immature Granulocytes Count 0.010 X10^3/uL (0.0-0.0); Mean Corp Hgb Conc 32.9 g/dL (32-36); Mean Corpuscular Volume 90.0 fL (81-99); Mean Platelet Vol. 9.9 fl (6.2-12.0); NRBC Flagged by Analyzer 0 % (0-5); Platelet Count 357 K/mm3 (150-450); RBC Distribution Width CV 14.5 % (11.6-14.6); RBC Distribution Width SD 47.4 fl (35.1-43.9); Red Blood Count 3.99 M/mm3 (4.2-5.4); White Blood Count 6.9 K/mm3 (4.4-11.0)
[2025-02-02 11:46] LABS: AST(SGOT) 17 U/L (<=31); Alanine Aminotransfer ALT/SGPT 13 U/L (<=34); Albumin, Serum 3.8 g/dL (3.4-4.8); Alkaline Phosphatase 68 U/L (35-104); Anion Gap 13 (5-15); BUN 16 mg/dL (4-19); BUN/Creat Ratio 16.5 RATIO (10-20); Calcium,Total 9.2 mg/dL (7.6-11.0); Carbon Dioxide 22.1 mmol/L (21.0-32.0); Chloride 106 mmol/L (98-108); Globulin 3.6 g/dL (2.2-4.2); Glucose 130 mg/dL (70-99); Potassium 3.8 mmol/L (3.3-5.1)
== END | disposition home or self-care (01) ==
PROVIDERS: PCP Student in an Organized Health Care Education/Training Program
DX: R19.7 Diarrhea, unspecified (principal); K62.5 Hemorrhage of anus and rectum
CPT/HCPCS: 36415; 80053; 85025; 87177; 87209; 87329